=== PATIENT | male | born 1945 | race Caucasian/White ===

== ENCOUNTER 2016-08-09 13:07 | Observation (INO) | payer OTHER ==
[~2016-08-09] VITALS: Ht 177.8 cm; Wt 85.6 kg
[~2016-08-09 13:07] MED LIST: ASPI81TA21 PO; CETI10CH PO; CYM/30 PO; DOXA1TAB86 PO; DTRSR/10 PO; FINA5TAB PO; FLNIN; GABA-113 PO; HYDR-5688 PO; IPRASOL4 INH; LEVO50TA6 PO; LISI10TA PO; LPT40 PO; NTRSLP4 SL; PRLSR20 PO; SYMIN160 INH; TIOTCAP INH; TPRSR25 PO
[2016-08-09] MEDS ORDERED: ALUMINUM/MAGNESIUM SUSP 30 ML UDC PO STA (13:23)
[2016-08-09] MEDS ORDERED: PANTOprazole SOD 40 MG TAB PO STA (13:23)
[2016-08-09] MEDS ORDERED: ASPIRIN 324 MG CHEW PO STA (13:23)
[2016-08-09] MEDS ORDERED: MoRPHine SULFATE 4 MG/ML 1 ML CARP\\VIAL IV PRN (13:30)
[2016-08-09 13:56] LABS: BASO % 0.3 %; BASO ABS # 0.02 K/uL (0-0.2); COMPLETE YES; EOS % 0.7 %; HEMATOCRIT 38.3 % (42-52); IG% 0.1 %; LYMPH % 20.5 %; LYMPH ABS # 1.47 K/uL (1.2-3.4); MEAN CELL VOLUME 91.4 fL (80-100); MEAN CORPUSCULAR HEMOGLOBIN 32.5 pg (25-34); MEAN CORPUSCULAR HGB CONC 35.5 g/dl (32-36); MEAN PLATELET VOLUME 10.6 fL (7.4-10.4); MONO % 17.2 %; NEUT % 61.2 %; PLATELET COUNT 166 K/uL (130-400); RED BLOOD COUNT 4.19 M/uL (4.7-6.1); WHITE BLOOD COUNT 7.17 K/uL (4.8-10.8)
--- NOTE | 2016-08-09 14:02 | DIAGNOSTIC IMAGING REPORT ---
KUB HISTORY: Generalized abdominal pain. COMPARISON: None. FINDINGS: The bowel gas pattern is unremarkable. There are no dilated loops of small bowel to suggest an obstruction. No renal calculi. No ureteral calculi. No pneumoperitoneum or pneumatosis. Lumbar spine similar device is noted overlying the left side the abdomen with the leads extending to the T7 vertebral body level. Prior cholecystectomy. Moderate well-formed stool seen within the colon. Bilateral total hip arthroplasties. Pacemaker wires are noted. Patchy densities within the left lower lobe persist. IMPRESSION: No evidence for bowel obstruction. Moderate well-formed stool seen within the colon. Electronically signed by: Andrei Guillen M.D. 08/09/2016 2:01 PM Dictated Date/Time: 08/09/2016 1:58 PM
--- NOTE | 2016-08-09 14:03 | DIAGNOSTIC IMAGING REPORT ---
SINGLE VIEW CHEST CLINICAL HISTORY: Generalized abdominal pain. FINDINGS: An AP, portable, upright chest radiograph is compared to study dated 06/07/2016. Correlation is made with chest CT dated 01/29/2014. The examination is degraded by portable technique and patient rotation. A 2-lead cardiac pacemaker is unchanged in position and partially obscures the left upper chest. The heart is enlarged and there is atherosclerotic calcification of the thoracic and. The pulmonary vasculature is noncongested. There is bibasilar atelectasis. No large pleural effusion is identified. The lungs and pleural spaces are clear. No pneumothorax is seen. The skeletal structures are osteopenic. The bony thorax is grossly intact. Neurostimulator leads project over the mid thoracic spine. Cholecystectomy clips are identified in the right upper quadrant. IMPRESSION: 1. Cardiomegaly and cardiac pacemaker. There is no radiographic evidence of congestive failure. 2. No airspace consolidation or large pleural effusion is identified. Electronically signed by: Geoffrey Auguste M.D. 08/09/2016 2:02 PM Dictated Date/Time: 08/09/2016 2:00 PM
[2016-08-09 14:06] LABS: PROTHROMBIN TIME (PATIENT) 10.7 SECONDS (9.0-12.0)
[2016-08-09 14:14] LABS: ALT/SGPT 24 U/L (12-78); BLOOD UREA NITROGEN 14 mg/dl (7-18); BUN/CREATININE RATIO 12.5 (10-20); CALCIUM 9.1 mg/dl (8.5-10.1); CARBON DIOXIDE 24 mmol/L (21-32); CHLORIDE 106 mmol/L (98-107); GLUCOSE 102 mg/dl (70-99); POTASSIUM 3.7 mmol/L (3.5-5.1); SODIUM 142 mmol/L (136-145)
[2016-08-09 14:20] LABS: ALKALINE PHOSPHATASE 70 U/L (45-117); AST/SGOT 15 U/L (15-37); CKMB/CK RATIO 1.3 (0-3.0)
--- NOTE | 2016-08-09 15:17 | EMERGENCY ROOM VISIT NOTE ---
History Report prepared by Maged: Ismael Del Valle Under the Supervision of: Dr. Noe Jane D.O. First contact with patient: 13:14 Chief Complaint: CARDIAC ASSESSMENT Stated Complaint: HEART PROBLEMS Nursing Triage Summary: pt sent by dr feliz office for neck, throat , chest and back pain since yesterday. had pacemaker placed 2 mos ago some sob, denies nausea, denies diaphoresis History of Present Illness The patient is a 71 year old male who presents to the Emergency Room with complaints of persistent chest pain beginning 2 days ago. He notes he has had burning pain in his throat, across his chest, and on the side of his neck which is worsened with deep breaths, coughing, and walking. He is unable to lay on his left side. He has had back pain, some constipation, and itchiness around his ankles which he notes is not new. The patient denies having any nausea, vomiting, or swelling or redness in he legs. He reports taking nitroglycerin this morning, and was given another nitroglycerin by Dr. Feliz at the cardiology office today which he states helped to relieve his pain. He did not take any aspirin today. The patient notes that his current pain feels similar to his past [place] 20 year ago. He notes a catheterization was done at that time. He states he had a pacemaker placed in May of 2016, and had a catheterization the day before. He reports a history of a cholecystectomy, and is on Omeprazole. The patient has no known drug allergies. Source of History: patient Onset: 2 days ago Position: chest Quality: burning Timing: other (persistent) Modifying Factors (Worsening): other (deep breaths, coughing, walking) Modifying Factors (Relieving): other (nitroglycerin) Associated Symptoms: + neck pain, No nausea, No vomiting Note: The patient reports having new throat pain and some constipation. The patient denies any swelling or redness in his legs. Review of Systems See HPI for pertinent positives & negatives. A total of 10 systems reviewed and were otherwise negative. Past Medical & Surgical Medical Problems: (1) BPH (benign prostatic hyperplasia) (2) Carotid stenosis (3) COPD (chronic obstructive pulmonary disease) (4) Depression (5) Diastolic dysfunction (6) DVT (deep venous thrombosis) (7) Fingertip amputation (8) History of left heart catheterization (LHC) (9) HLD (hyperlipidemia) (10) HTN (hypertension) (11) Hypothyroidism (12) Pacemaker (13) RLS (restless legs syndrome) (14) SSS (sick sinus syndrome) Surgical Problems: (1) H/O knee surgery (2) History of cholecystectomy (3) History of hip surgery (4) Hx of cholecystectomy Family History No pertinent family history stated. Social History Smoking Status: Former Smoker Marital Status: Housing Status: lives with family Occupation Status: retired, other Current/Historical Medications Scheduled Aspirin Enteric Coated (Ecotrin Or Generic), 81 MG PO DAILY Atorvastatin (Atorvastatin Calcium), 40 MG PO DAILY Budesonide/Formoterol Fumarate (Symbicort 160/4.5 Inhaler ), 2 PUFFS INH BID Doxazosin Mesylate (Doxazosin Mesylate), 8 MG PO HS Duloxetine HCl (Cymbalta), 1 CAP PO DAILY Finasteride (Proscar), 5 MG PO DAILY Gabapentin (Neurontin), 300 MG PO BID Levothyroxine Sodium (Levothyroxine Sodium), 1 TAB PO DAILY Lisinopril (Prinivil), 10 MG PO QPM Metoprolol Succinate (Metoprolol Succinate ER), 25 MG PO QAM Omeprazole (Prilosec), 40 MG PO DAILY Oxybutynin Chloride (Oxybutynin Chloride ER), 10 MG PO DAILY Tiotropium [place] (Spiriva Handihaler), 1 CAP INH DAILY PRN Scheduled PRN Cetirizine Hcl (Cetirizine Hcl), MG PO DAILY PRN for Nasal Congestion Fluticasone Propionate (Fluticasone Propionate), 2 SPRAYS NA BID PRN for prn Hydrocodone/Acetaminophen 5MG/325MG ([place] 5MG/325MG), 1 TABLET PO TID PRN for Pain Ipratropium-Albuterol (Duoneb), 1 TREATMENT INH Q8 PRN for SOB/Wheezing Nitroglycerin (Nitrostat), 0.4 MG SL PRN PRN for Chest Pain Allergies Coded Allergies: Latex (Unverified Allergy, Mild, HIVES, 08/09/16) BLISTERED GOODE Adhesives (Unverified Allergy, Unknown, ADHESIVE TAPE = UNKNOWN RXN, ) Physical Exam Vital Signs Date Time Temp Pulse Resp B/P Pulse Ox O2 Delivery O2 Flow Rate FiO2 08/09/16 19:38 65 18 141/64 94 Room Air 08/09/16 18:08 64 16 93 Room Air 08/09/16 17:27 65 20 148/71 96 Room Air 08/09/16 16:47 71 18 115/83 96 Room Air 08/09/16 15:37 60 16 94 08/09/16 15:15 139/85 08/09/16 15:07 63 18 94 08/09/16 14:55 62 14 139/74 96 Room Air 08/09/16 14:47 134/74 08/09/16 14:37 61 11 96 08/09/16 14:07 62 17 93 08/09/16 14:04 64 20 114/58 96 Room Air 08/09/16 13:54 Room Air 08/09/16 13:54 114/58 08/09/16 13:37 62 15 95 08/09/16 13:23 64 08/09/16 13:14 37.5 93 16 115/66 94 Room Air Physical Exam GENERAL: Patient is awake alert, somewhat anxious and uncomfortable appearing. EYES: The conjunctivae are clear. The pupils are round and reactive. EARS, NOSE, MOUTH AND THROAT: The nose is without any evidence of any deformity. Mucous membranes are moist tongue is midline NECK: The neck is nontender and supple. RESPIRATORY: Normal respiratory effort is noted there is no evidence of wheezing rhonchi or rales CARDIOVASCULAR: Regular rate and rhythm noted there no murmurs rubs or gallops normal S1 normal S2 GASTROINTESTINAL: The abdomen is soft. Bowel sounds are present in all quadrants. Abdomen is nontender MUSCULOSKELETAL/EXTREMITIES: There is no evidence of gross deformity full range of motion is noted in the hips and shoulders SKIN: Trace pedal edema bilaterally. NEUROLOGIC: Patient is awake alert and oriented x3. Medical Decision & Procedures ER Provider Diagnostic Interpretation: Radiology results as stated below per my review and radiologist interpretation: KUB FINDINGS: The bowel gas pattern is unremarkable. There are no dilated loops of small bowel to suggest an obstruction. No renal calculi. No ureteral calculi. No pneumoperitoneum or pneumatosis. Lumbar spine similar device is noted overlying the left side the abdomen with the leads extending to the T7 vertebral body level. Prior cholecystectomy. Moderate well-formed stool seen within the colon. Bilateral total hip arthroplasties. Pacemaker wires are noted. Patchy densities within the left lower lobe persist. IMPRESSION: No evidence for bowel obstruction. Moderate well-formed stool seen within the colon. Electronically signed by: Andrei Guillen M.D. 08/09/2016 2:01 PM Dictated Date/Time: 08/09/2016 1:58 PM SINGLE VIEW CHEST FINDINGS: An AP, portable, upright chest radiograph is compared to study dated 06/07/2016. Correlation is made with chest CT dated 01/29/2014. The examination is degraded by portable technique and patient rotation. A 2-lead cardiac pacemaker is unchanged in position and partially obscures the left upper chest. The heart is enlarged and there is atherosclerotic calcification of the thoracic and. The pulmonary vasculature is noncongested. There is bibasilar atelectasis. No large pleural effusion is identified. The lungs and pleural spaces are clear. No pneumothorax is seen. The skeletal structures are osteopenic. The bony thorax is grossly intact. Neurostimulator leads project over the mid thoracic spine. Cholecystectomy clips are identified in the right upper quadrant. IMPRESSION: 1. Cardiomegaly and cardiac pacemaker. There is no radiographic evidence of congestive failure. 2. No airspace consolidation or large pleural effusion is identified. Electronically signed by: Geoffrey Auguste M.D. 08/09/2016 2:02 PM Dictated Date/Time: 08/09/2016 2:00 PM Laboratory Results 08/09/16 13:45 Red Blood Count 4.19, Mean Corpuscular Volume 91.4, Mean Corpuscular Hemoglobin 32.5, Mean Corpuscular Hemoglobin Concent 35.5, Mean Platelet Volume 10.6, Neutrophils (%) (Auto) 61.2, Lymphocytes (%) (Auto) 20.5, Monocytes (%) (Auto) 17.2, Eosinophils (%) (Auto) 0.7, Basophils (%) (Auto) 0.3, Neutrophils # (Auto ) 4.39, Lymphocytes # (Auto) 1.47, Monocytes # (Auto) 1.23, Eosinophils # (Auto ) 0.05, Basophils # (Auto) 0.02 08/09/16 13:45 Test 08/09/16 13:45 08/09/16 19:45 White Blood Count 7.17 K/uL (4.8-10.8) Red Blood Count 4.19 M/uL (4.7-6.1) Hemoglobin 13.6 g/dL (14.0-18.0) Hematocrit 38.3 % (42-52) Mean Corpuscular Volume 91.4 fL (80-100) Mean Corpuscular Hemoglobin 32.5 pg (25-34) Mean Corpuscular Hemoglobin Concent 35.5 g/dl (32-36) Platelet Count 166 K/uL (130-400) Mean Platelet Volume 10.6 fL (7.4-10.4) Neutrophils (%) (Auto) 61.2 % Lymphocytes (%) (Auto) 20.5 % Monocytes (%) (Auto) 17.2 % Eosinophils (%) (Auto) 0.7 % Basophils (%) (Auto) 0.3 % Neutrophils # (Auto) 4.39 K/uL (1.4-6.5) Lymphocytes # (Auto) 1.47 K/uL (1.2-3.4) Monocytes # (Auto) 1.23 K/uL (0.11-0.59) Eosinophils # (Auto) 0.05 K/uL (0-0.5) Basophils # (Auto) 0.02 K/uL (0-0.2) RDW Standard Deviation 43.3 fL (36.4-46.3) RDW Coefficient of Variation 13.0 % (11.5-14.5) Immature Granulocyte % (Auto) 0.1 % Immature Granulocyte # (Auto) 0.01 K/uL (0.00-0.02) Prothrombin Time 10.7 SECONDS (9.0-12.0) Prothromb Time International Ratio 1.0 (0.9-1.1) Activated Partial Thromboplast Time 24.7 SECONDS (21.0-31.0) Partial Thromboplastin Ratio 1.0 D-Dimer 640 ug/L FEU (0-500) Anion Gap 12.0 mmol/L (3-11) Est Creatinine Clear Calc Drug Dose 69.8 ml/min Estimated GFR () 78.4 Estimated GFR (Non- 67.7 BUN/Creatinine Ratio 12.5 (10-20) Calcium Level 9.1 mg/dl (8.5-10.1) Total Bilirubin 0.6 mg/dl (0.2-1) Direct Bilirubin 0.2 mg/dl (0-0.2) Aspartate Amino Transf (AST/SGOT) 15 U/L (15-37) Alanine Aminotransferase (ALT/SGPT) 24 U/L (12-78) Alkaline Phosphatase 70 U/L (45-117) Total Protein 7.0 gm/dl (6.4-8.2) Albumin 3.6 gm/dl (3.4-5.0) Lipase 91 U/L (73-393) Thyroid Stimulating Hormone (TSH) 0.747 uIu/ml (0.300-4.500) Laboratory results per my review. Medications Administered Medications (Trade) Dose Ordered Sig/Juliette Route Start Time Stop Time Status Last Admin Dose Admin Al Hydroxide/Mg Hydroxide (Maalox Susp) 30 ml NOW STAT PO 08/09/16 13:23 08/09/16 13:25 DC 08/09/16 14:03 30 ML Pantoprazole Sodium (Protonix Tab) 40 mg NOW STAT PO 08/09/16 13:23 08/09/16 13:25 DC 08/09/16 14:01 40 MG Aspirin (Aspirin Chew) 324 mg NOW STAT PO 08/09/16 13:23 08/09/16 13:25 DC 08/09/16 13:56 324 MG Morphine Sulfate (MoRPHine SULFATE INJ) 4 mg Q15M PRN IV 08/09/16 13:30 08/23/16 13:29 08/09/16 14:01 4 MG ECG Indication: chest pain Rate (beats per minute): 74 Rhythm: other (atrially paced ) Findings: other (LVH noted by voltage criteria; high late ST elevation) Comparison ECG Date: June 06, 2016 Change: no significant change ED Course 1322: The patient was evaluated in room B11B. A complete history and physical examination were performed. 1323: Ordered Aspirin 324 mg PO, Protonix Tab 40 mg PO, and Maalox Susp 30 ml PO. 1330: Ordered Morphine Sulfate 4 mg IV. 1440: I discussed the patient's case with Dr. Eason. The patient will be evaluated for further management. Medical Decision Differential diagnosis: Etiologies such as cardiac ischemia, aortic dissection, pulmonary embolism, pneumonia, pneumothorax, musculoskeletal, infections, pericarditis, myocarditis , esophageal rupture, gastrointestinal, as well as others were entertained. Nursing notes reviewed. Additional history is obtained from the patient's significant other. The patient is a 71-year-old male who presented to the emergency department for an evaluation of anterior chest pain. The patient had a recent pacemaker placement at the end of last year. He presents emergency department today after being seen by his primary defensive secondary coach and sent to the emergency department for further evaluation of anterior chest pain. The patient appears to have some pleuritic component to this chest pain but he feels as though this is similar to his previous episodes of coronary syndrome. The patient had a heart catheterization at the end of last year when he had the pacemaker placed. This did show diffuse coronary artery disease and at that time no intervention was required. The patient was treated with aspirin as well as morphine in the emergency apartment. She was also given a proton pump inhibitor and Maalox. On subsequent reevaluation he was feeling somewhat improved. I discussed the patient's laboratory and radiographic studies with him. I also discussed the limitations of the emergency department workup for chest pain with him. I discussed this case with the on-call [facility] hospitalist as well as the on- call [facility] defensive secondary coach. They've agreed to evaluate the patient in the emergency apartment for further management and disposition. Consults Time Called: 1435 Consulting Physician: Dr. Eason Returned Call: 1440 I discussed the patient's case with Dr. Eason. The patient will be evaluated for further management. Impression Primary Impression: Left sided chest pain Scribe Attestation The scribe's documentation has been prepared under my direction and personally reviewed by me in its entirety. I confirm that the note above accurately reflects all work, treatment, procedures, and medical decision making performed by me. Departure Information Dispostion Being Evaluated By Hospitalist Referrals Erasmo Feliz D.O. (PCP) Patient Instructions My [facility]
[2016-08-09] MEDS ORDERED: NITROGLYCERIN 0.4 MG SL PER TAB CHARGE SL PRN (15:30)
[2016-08-09] MEDS ORDERED: ONDANSETRON INJ 2 MG/ML 2 ML VIAL IV PRN (15:30)
[2016-08-09] MEDS ORDERED: ACETAMINOPHEN 325 MG TAB PO PRN (15:30)
[2016-08-09] MEDS ORDERED: LPT40 PO (15:37)
[2016-08-09] MEDS ORDERED: FLUTICASONE PROPIONATE NA SPR 16 GM BTL PRN (15:45)
[2016-08-09] MEDS ORDERED: ALBUT/IPRATROP 3MG/0.5MG NEB 3 ML VIAL INH PRN (15:45)
[2016-08-09] MEDS ORDERED: GI COCKTAIL PO PRN (15:45)
--- NOTE | 2016-08-09 16:07 | History and Physical ---
History & Physical Date & Time of Service: Aug 09, 2016 at 15:42 Chief Complaint: Heart Problems Primary Care Physician: Erasmo Merritt D.O. History of Present Illness Source: patient, family, clinic records, hospital records Patient seen and examined. 71 year old male with PMHx of CAD, COPD, HLD, SA node dysfunction s/p pacemaker, HTN and other problems listed below presents to the ED with chest pain x 2 days. Patient reports that he has had constant pleuritic chest pain for the last several days. He states it radiates to the neck and the back. It is much worse with deep inspiration, but also has a burning quality and a sharp quality to it. He rates it as a 5/10. He has associated dyspnea on exertion. He reports associated cough. He reports he had a heart attack 20 years ago which was similar. He reports that he took nitro and that helped. He denies fevers, chills, diaphoresis, nausea, vomiting, dysuria, edema. He reports left calf pain. He reports a history of VTE previous. He was seen by Dr. Merritt for these symptoms today and was referred to the ED for further evaluation. Patient had a LHC in May 2016 with multivessel disease. He had a pacemaker placed at that time but no other intervention. In the ED VS are stable, Uriel are negative x 1, Patient received Aspirin, Morphine, Maalox and Protonix which helped with the pain. He will be observed for further workup and treatment. Past Medical/Surgical History Medical Problems: (1) BPH (benign prostatic hyperplasia) Status: Chronic (2) Carotid stenosis Status: Chronic (3) COPD (chronic obstructive pulmonary disease) Status: Chronic (4) Depression Status: Chronic (5) Diastolic dysfunction Status: Chronic (6) DVT (deep venous thrombosis) Status: Resolved (7) Fingertip amputation Status: Chronic (8) History of left heart catheterization (LHC) Status: Chronic (9) HLD (hyperlipidemia) Status: Chronic (10) HTN (hypertension) Status: Chronic (11) Hypothyroidism Status: Chronic (12) Pacemaker Status: Chronic (13) RLS (restless legs syndrome) Status: Chronic (14) SSS (sick sinus syndrome) Status: Chronic Surgical Problems: (1) H/O knee surgery Status: Chronic (2) History of hip surgery Status: Chronic (3) Hx of cholecystectomy Status: Chronic Family History Asthma Diabetes mellitus Social History Smoking Status: Former Smoker Alcohol Use: none Marital Status: Housing status: lives with family Occupational Status: retired, other Immunizations History of Influenza Vaccine: No History of Tetanus Vaccine?: Yes History of Pneumococcal: Yes History of Hepatitis B Vaccine: Unknown Multi-Drug Resistant Organisms History of MDRO: No Allergies Coded Allergies: Latex (Unverified Allergy, Mild, HIVES, 08/09/16) BLISTERED GOODE Adhesives (Unverified Allergy, Unknown, ADHESIVE TAPE = UNKNOWN RXN, ) Home Medications Scheduled Aspirin Enteric Coated (Ecotrin Or Generic), 81 MG PO DAILY Atorvastatin (Atorvastatin Calcium), 40 MG PO DAILY Budesonide/Formoterol Fumarate (Symbicort 160/4.5 Inhaler ), 2 PUFFS INH BID Doxazosin Mesylate (Doxazosin Mesylate), 8 MG PO HS Duloxetine HCl (Cymbalta), 1 CAP PO DAILY Finasteride (Proscar), 5 MG PO DAILY Gabapentin (Neurontin), 300 MG PO BID Levothyroxine Sodium (Levothyroxine Sodium), 1 TAB PO DAILY Lisinopril (Prinivil), 10 MG PO QPM Metoprolol Succinate (Metoprolol Succinate ER), 25 MG PO QAM Omeprazole (Prilosec), 40 MG PO DAILY Oxybutynin Chloride (Oxybutynin Chloride ER), 10 MG PO DAILY Tiotropium Jolon (Spiriva Handihaler), 1 CAP INH DAILY PRN Scheduled PRN Cetirizine Hcl (Cetirizine Hcl), MG PO DAILY PRN for Nasal Congestion Fluticasone Propionate (Fluticasone Propionate), 2 SPRAYS NA BID PRN for prn Hydrocodone/Acetaminophen 5MG/325MG (Ceresco 5MG/325MG), 1 TABLET PO TID PRN for Pain Ipratropium-Albuterol (Duoneb), 1 TREATMENT INH Q8 PRN for SOB/Wheezing Nitroglycerin (Nitrostat), 0.4 MG SL PRN PRN for Chest Pain Review of Systems Constitutional: + weakness, No chills, No fever, No sweats Eyes: No worsening of vision ENT: No nasal symptoms Respiratory: + cough, + dyspnea on exertion, + shortness of breath Cardiovascular: + chest pain, No edema, No palpitations Abdomen: No constipation, No diarrhea, No nausea, No pain, No vomiting Musculoskeletal: + calf pain, No swelling Genitourinary - Male: + urinary hesitancy, + urinary retention, No dysuria Neurologic: No numbness/tingling, No vertigo Psychiatric: No depression symptoms Endocrine: No fatigue Hematologic / Lymphatic: No abnormal bleeding/bruising, No clotting problems Integumentary: No itch, No rash Allergic / Immunologic: No environmental allergies Physical Exam Vital Signs Date Time Temp Pulse Resp B/P Pulse Ox O2 Delivery O2 Flow Rate FiO2 08/09/16 14:55 62 14 139/74 96 Room Air 08/09/16 14:04 64 20 114/58 96 Room Air 08/09/16 13:54 Room Air 08/09/16 13:23 64 08/09/16 13:14 37.5 93 16 115/66 94 Room Air General Appearance: + pertinent finding (Pleasant WD/WN 71 year old male lying inbed in NAD with at bedside ) Head: normocephalic, atraumatic Eyes: PERRL, EOMI, sclerae normal ENT: hearing grossly normal, pharynx normal Neck: supple, no JVD Respiratory/Chest: chest non-tender, lungs clear, normal breath sounds, no respiratory distress, no accessory muscle use Cardiovascular: regular rate, rhythm, no edema, no gallop, no JVD, no murmur, normal peripheral pulses Abdomen/GI: normal bowel sounds, non tender, soft Back: normal inspection, no muscle spasm Extremities/Musculoskelatal: normal capillary refill, no pedal edema, + calf tenderness (left ) Neurologic/Psych: alert, oriented x 3, + pertinent finding (no focal deficits ) Skin: normal color, warm/dry, no rash Lymphatic: no adenopathy Diagnostics Laboratory Results Results Past 24 Hours Test 08/09/16 13:45 Range/Units White Blood Count 7.17 4.8-10.8 K/uL Red Blood Count 4.19 4.7-6.1 M/uL Hemoglobin 13.6 14.0-18.0 g/dL Hematocrit 38.3 42-52 % Mean Corpuscular Volume 91.4 80-100 fL Mean Corpuscular Hemoglobin 32.5 25-34 pg Mean Corpuscular Hemoglobin Concent 35.5 32-36 g/dl Platelet Count 166 130-400 K/uL Mean Platelet Volume 10.6 7.4-10.4 fL Neutrophils (%) (Auto) 61.2 % Lymphocytes (%) (Auto) 20.5 % Monocytes (%) (Auto) 17.2 % Eosinophils (%) (Auto) 0.7 % Basophils (%) (Auto) 0.3 % Neutrophils # (Auto) 4.39 1.4-6.5 K/uL Lymphocytes # (Auto) 1.47 1.2-3.4 K/uL Monocytes # (Auto) 1.23 0.11-0.59 K/uL Eosinophils # (Auto) 0.05 0-0.5 K/uL Basophils # (Auto) 0.02 0-0.2 K/uL RDW Standard Deviation 43.3 36.4-46.3 fL RDW Coefficient of Variation 13.0 11.5-14.5 % Immature Granulocyte % (Auto) 0.1 % Immature Granulocyte # (Auto) 0.01 0.00-0.02 K/uL Prothrombin Time 10.7 9.0-12.0 SECONDS Prothromb Time International Ratio 1.0 0.9-1.1 Activated Partial Thromboplast Time 24.7 21.0-31.0 SECONDS Partial Thromboplastin Ratio 1.0 Sodium Level 142 136-145 mmol/L Potassium Level 3.7 3.5-5.1 mmol/L Chloride Level 106 98-107 mmol/L Carbon Dioxide Level 24 21-32 mmol/L Anion Gap 12.0 3-11 mmol/L Blood Urea Nitrogen 14 7-18 mg/dl Creatinine 1.10 0.60-1.40 mg/dl Est Creatinine Clear Calc Drug Dose 69.8 ml/min Estimated GFR () 78.4 Estimated GFR (Non- 67.7 BUN/Creatinine Ratio 12.5 10-20 Random Glucose 102 70-99 mg/dl Calcium Level 9.1 8.5-10.1 mg/dl Total Bilirubin 0.6 0.2-1 mg/dl Direct Bilirubin 0.2 0-0.2 mg/dl Aspartate Amino Transf (AST/SGOT) 15 15-37 U/L Alanine Aminotransferase (ALT/SGPT) 24 12-78 U/L Alkaline Phosphatase 70 45-117 U/L Total Creatine Kinase 70 39-308 U/L Creatine Kinase MB 0.9 0.5-3.6 ng/ml Creatine Kinase MB Ratio 1.3 0-3.0 Troponin I < 0.015 0-0.045 ng/ml Total Protein 7.0 6.4-8.2 gm/dl Albumin 3.6 3.4-5.0 gm/dl Lipase 91 73-393 U/L Diagnostic Radiology CXR Per radiologist read: IMPRESSION: 1. Cardiomegaly and cardiac pacemaker. There is no radiographic evidence of congestive failure. 2. No airspace consolidation or large pleural effusion is identified. KUB Per radiologist read: IMPRESSION: No evidence for bowel obstruction. Moderate well-formed stool seen within the colon. EKG 74 BPM, Atrial Paced, LVH, ST changes inferior leads. Impression Assessment and Plan 71 year old male presents to the ED from Dr. Merritt (cardiology) office with chest pain ATYPICAL CHEST PAIN -Observation in tele -First set of CE negative in ED -differential diagnosis to include ACS, pulmonary embolism, GERD and other etiologies -Reviewed EKG with Dr. Holloway, formal consult placed, input appreciated -Risk factors:patient has known multivessel CAD by cath in May 2016, HTN, HLD, age, remote tobacco history -Serial Uriel and EKGs -Fasting lipid panel, A1c in AM -Echo pending to r/o heart wall abnormality -Check Ddimer if positive will need CTA -continue Aspirin, BB, Statin, ACEI -Nitro, morphine prn chest pain -Try GI cocktail as needed -Cardiology consult for further management input appreciated -AHA diet -TSH, Mg pending -CBC, PRP, Mg daily -VSS stable, monitor in tele LEFT CALF PAIN -r/o DVT, has known history -Doppler US pending URINARY RETENTION/HESITANCY -check UA -continue BPH meds COPD -stable -continue home inhaler HLD -continue Statin -check lipid panel HTN -Stable -continue BB, lisinopril BPH -continue Doxazosin, Proscar DEPRESSION -continue Cymbalta HYPOTHYROIDISM -TSH pending -continue Synthroid RLS -continue Gabapentin GERD -continue PPI DVT PROPHYLAXIS: Sq heparin CODE STATUS: LEVEL 5 DNR per my discussion with the patient DISPO:observation pending further workup Patient seen in collaboration with Dr. Eason Agree with above h and p. Briefly 71 with hx CAd with multiple vessel disease as per CAth in may 2016, copd, htn presents with chest pain going on for several days. pain is more on deep breath and radiates to neck and back. He says pain is similar to his heart attack 20yrs ago.Gets sob on exertion. No nausea or sweating. Nitro relived pain. Seen by in clinic and sent to Er for further workup. 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 SA node dysfunction) and was advised medical management at that time presents with chest pain intial Ce and ekg unremarkable f/u serial Ce and echo and cardiology consult Pleuritic chest pain? d dimer elevated has left calf pain Doppler and cta chest negative VTE Prophylaxis VTE Risk Assessment Done? Y/N: Yes Risk Level: Moderate
[2016-08-09] MEDS ORDERED: OPTIRAY 320 IV PRN (17:00)
--- NOTE | 2016-08-09 17:51 | DIAGNOSTIC IMAGING REPORT ---
CHEST CTA for PULMONARY ARTERIES CT DOSE: 434.20 mGy.cm HISTORY: Chest pain dyspnea TECHNIQUE: Multiaxial CT images of the chest were performed following the intravenous administration of contrast to evaluate the pulmonary arteries. Maximal intensity projection images were also obtained. COMPARISON STUDY: 2013 FINDINGS: Normal enhancement characteristics of the pulmonary arterial vasculature. Several stable mediastinal and hilar nodes. Chronic interstitial change throughout both hemithoraces considered chronic. Mild chronic bibasilar atelectatic change. IMPRESSION: Chronic change. No evidence for pulmonary embolus. No change from the prior study. Electronically signed by: Reji Castle M.D. 08/09/2016 5:50 PM Dictated Date/Time: 08/09/2016 5:46 PM
[2016-08-09] MEDS ORDERED: IV FLUIDS COMPLETED PRN (19:00)
[2016-08-09 20:20] VITALS: BP 166/82; PULSE 69; TEMP 37.6; O2SAT 93; Ht 177.8 cm; Wt 85.6 kg
--- NOTE | 2016-08-09 20:22 | DIAGNOSTIC IMAGING REPORT ---
BILATERAL LOWER EXTREMITY VENOUS DOPPLER HISTORY: Pain. Edema. calf pain, R/O DVT COMPARISON STUDY: None. FINDINGS: There is normal compressibility, flow, and augmentation within the bilateral lower extremity deep venous systems. 5 cm left popliteal cyst. Mild chronic scarring right femoral vein IMPRESSION: No DVT within the right or left lower extremity. 5 cm popliteal cyst posterior to the left knee Electronically signed by: Reji Castle M.D. 08/09/2016 8:21 PM Dictated Date/Time: 08/09/2016 8:19 PM
[2016-08-09] MEDS: HYDROCODONE/ACETAMOPHEN 5/325MG TAB PO PRN (20:43)
[2016-08-09] MEDS ORDERED: ALUMINUM/MAGNESIUM SUSP 18 ML, LIDOCAINE HCL 2% VISCOUS SOLN 6 ML, BARCODE IDENTIFIER 1 EA PO PRN ×2 (20:45)
[2016-08-09] MEDS ORDERED: POLYETHYLENE (MIRALAX) 17 GM PACK PO ONE (20:45)
[2016-08-09] MEDS: BUDESONIDE/FORMOTEROL FUMARATE 160/4.5 60 PUFFS/INHALER INH SCH (21:00)
[2016-08-09] MEDS: DOXAZosin MESYLATE TAB 4 MG TAB PO SCH (21:22)
[2016-08-09] MEDS: GABAPENTIN 300 MG CAP PO SCH (21:22)
[2016-08-09] MEDS: HEPARIN SOD 5000 UNIT/0.5 ML CARP SQ SCH (21:28)
[2016-08-09] MEDS: MoRPHine SULFATE 2 MG/ML CARP IV PRN (23:15)
[2016-08-10] VITALS (9 sets, daily range): BP systolic 113–126; BP diastolic 57–77; PULSE 60–76; TEMP 36.4–37; O2SAT 91–98
[2016-08-10 02:39] LABS: CKMB/CK RATIO 1.6 (0-3.0)
[2016-08-10] MEDS: MoRPHine SULFATE 2 MG/ML CARP IV PRN (03:30)
[2016-08-10 06:16] LABS: HEMATOCRIT 37.8 % (42-52); MEAN CELL VOLUME 90.4 fL (80-100); MEAN CORPUSCULAR HEMOGLOBIN 31.8 pg (25-34); MEAN CORPUSCULAR HGB CONC 35.2 g/dl (32-36); MEAN PLATELET VOLUME 10.6 fL (7.4-10.4); PLATELET COUNT 154 K/uL (130-400); RED BLOOD COUNT 4.18 M/uL (4.7-6.1); WHITE BLOOD COUNT 5.22 K/uL (4.8-10.8)
[2016-08-10 06:32] LABS: ESTIMATED AVERAGE GLUCOSE 108 mg/dl; HA1C FLAG Normal (Normal)
[2016-08-10] MEDS: HEPARIN SOD 5000 UNIT/0.5 ML CARP SQ SCH ×3 (06:38→21:36)
[2016-08-10] MEDS: LEVOTHYROXINE 50 MCG TAB PO SCH (06:38)
[2016-08-10 06:57] LABS: BLOOD UREA NITROGEN 11 mg/dl (7-18); BUN/CREATININE RATIO 11.4 (10-20); CALCIUM 8.7 mg/dl (8.5-10.1); CARBON DIOXIDE 28 mmol/L (21-32); CHLORIDE 107 mmol/L (98-107); CHOLESTEROL 126 mg/dl (0-200); CHOLESTEROL/HDL RATIO 2.4; CREATININE 0.99 mg/dl (0.60-1.40); GLUCOSE 97 mg/dl (70-99); HDL CHOLESTEROL 52 mg/dl; LDL CHOLESTEROL CALCULATED 51 mg/dl; SODIUM 142 mmol/L (136-145); TRIGLYCERIDES 117 mg/dl (0-150); VERY LOW DENSITY LIPOPROT CALC 23 mg/dl
[2016-08-10 08:01] LABS: MAGNESIUM 2.4 mg/dl (1.8-2.4); POTASSIUM 3.9 mmol/L (3.5-5.1)
[2016-08-10] MEDS: ATORVASTATIN 40 MG TAB PO SCH (08:19)
[2016-08-10] MEDS: LISINOPRIL 10 MG TAB PO SCH (08:19)
[2016-08-10] MEDS: HYDROCODONE/ACETAMOPHEN 5/325MG TAB PO PRN ×2 (08:19→15:45)
[2016-08-10] MEDS: DULOXETINE (CYMBALTA) 30 MG CAP PO SCH (08:19)
[2016-08-10] MEDS: METOPROLOL SUCC 25MG EXT REL TAB PO SCH (08:20)
[2016-08-10] MEDS: OXYBUTYNIN CHLORIDE 5 MG TABCR PO SCH (08:20)
[2016-08-10] MEDS: PANTOprazole SOD 40 MG TAB PO SCH (08:20)
[2016-08-10] MEDS: GABAPENTIN 300 MG CAP PO SCH ×2 (08:21→20:16)
[2016-08-10] MEDS: FINASTERIDE 5 MG TAB PO SCH (08:21)
[2016-08-10] MEDS: BUDESONIDE/FORMOTEROL FUMARATE 160/4.5 60 PUFFS/INHALER INH SCH ×2 (08:22→20:16)
[2016-08-10] MEDS: ASPIRIN 81 MG ECTAB PO SCH (08:25)
[2016-08-10] MEDS ORDERED: POLYETHYLENE (MIRALAX) 17 GM PACK PO SCH (09:00)
[2016-08-10] MEDS ORDERED: TIOTROPIUM BROMIDE 5 PUFF/90 MCG INH INH SCH (09:00)
--- NOTE | 2016-08-10 09:40 | CARDIOLOGY CONSULTATION ---
DATE OF CONSULTATION: 08/10/2016 DATE OF CONSULTATION: 08/10/2016. REFERRING PHYSICIAN: Edgar merida. REASON FOR CONSULTATION: Chest pain. HISTORY OF PRESENT ILLNESS: The patient is a 71-year-old male patient who usually follows with Dr. Erasmo Merritt through our clinic. He has a history of coronary artery disease which is multivessel but has been stable for several years. He also has a history of severe left ventricular hypertrophy and diastolic dysfunction. In 2016, he had a permanent pacemaker placed for symptomatic bradycardia. 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 Starting approximately 4 days ago, he developed pleuritic type chest discomfort that increases with inspiration and radiates up into his neck. He has had no fever or chills. No recent tick bites. After admission, his cardiac markers have been negative. His EKG shows a paced rhythm. ALLERGIES: ADHESIVE TAPE. PAST MEDICAL HISTORY: As per the history of chief complaint. The patient has a history of stable coronary artery disease, diastolic dysfunction with severe left ventricular hypertrophy and symptomatic bradycardia status post permanent pacemaker 2016. 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 He is treated for hypertension and dyslipidemia. SOCIAL HISTORY: He is a nonsmoker. FAMILY MEDICAL HISTORY: Noncontributory. REVIEW OF SYSTEMS: A 10-point review of systems is negative except for the history of chief complaint. PHYSICAL EXAMINATION: GENERAL: He is alert and oriented. VITAL SIGNS: Blood pressure is 115/60. Pulse is regular at 60. He is afebrile. HEAD, EYES, EARS, NOSE, AND THROAT: He is normocephalic. Pupils are equal and reactive to light. Extraocular muscles are intact bilaterally. NECK: The neck veins are flat. Carotids have good upstrokes bilaterally without bruits. Thyroid is nonpalpable. RESPIRATORY: Breath sounds equal bilaterally and clear to auscultation. CARDIOVASCULAR: Heart has a regular rhythm. Normal S1, S2. No S3, S4. No cardiac rubs or murmurs. GASTROINTESTINAL: Abdomen soft, nontender without organomegaly. EXTREMITIES: Free of edema, digit clubbing, or cyanosis. NEUROLOGIC: Grossly intact. SKIN: Warm to touch. LYMPH NODES: Negative to palpation. LABORATORY DATA: WBC count is 5.2, hemoglobin is 13.3. Cardiac markers are negative. Creatinine is 1.1. EKG shows a paced rhythm. IMPRESSION: 1. Pleuritic chest discomfort, rule out Lyme's disease, pericarditis. 2. Remote history of coronary artery disease which has been stable. 3. Status post permanent pacemaker for symptomatic bradycardia. 4. Chronic obstructive pulmonary disease. RECOMMENDATIONS: The patient has been followed by graduate civil engineer as an outpatient and we should have him see him during this hospital admission. I will draw a sed rate, Lyme's titer and PERCY. He does not have an elevation in his cardiac markers which would go along with pericarditis involving the myocardium. I will obtain an echocardiogram to evaluate for pericardial effusion. I am also going to start him on ibuprofen for inflammation.
--- NOTE | 2016-08-10 12:11 | ECHOCARDIOGRAM REPORT ---
*NOTICE TO RECEIVING CONSTITUTION PARTY AGENCY This information is strictly Confidential and protected under [place] law. [place] law prohibits you from making any further disclosure of this information unless further disclosure is expressly permitted by the written consent of the person to whom it pertains or is authorized by law. A general authorization for the release of medical or other information is not sufficient for this purpose. Hospital accepts no responsibility if the information is made available to any other person, INCLUDING THE PATIENT. Interpretation Summary * Name: CORRIE MCCARTY Study Date: 08/10/2016 06:48 AM BP: 113/68 mmHg * Patient Location: [facility] HR: 64 * : 1945 (M/d/yyyy) Gender: Male Height: 70 in * Age: 71 yrs Ethnicity: CA Weight: 194 lb * Ordering Physician: Mallory Denise * Referring Physician: Self, Referred * Performed By: Michael Amaya RCS * * Reason For Study: Chest Pain * BSA: 2.1 m2 * -- Conclusions -- * The pericardium appears normal. * There is no pericardial effusion. * The left ventricle is normal in size. * There is moderate concentric left ventricular hypertrophy. * The left ventricular wall motion is normal. * Ejection Fraction = 60-65%. * Mild aortic regurgitation. Procedure Details * A complete two-dimensional transthoracic echocardiogram was performed (2D, M-mode, Doppler and color flow Doppler). Left Ventricle * The left ventricle is normal in size. * There is moderate concentric left ventricular hypertrophy. * Ejection Fraction = 60-65%. * The left ventricular wall motion is normal. Right Ventricle * The right ventricle is normal size. * There is a pacemaker lead in the right ventricle. * The right ventricular systolic function is normal. Atria * The left atrial size is normal. * Right atrial size is normal. * The interatrial septum is intact with no evidence for an atrial septal defect. Mitral Valve * The mitral valve anatomy is normal. * Significant mitral regurgitation is absent. Tricuspid Valve * The tricuspid valve is not well visualized, but is grossly normal. * Significant tricuspid regurgitation is absent. Aortic Valve * The aortic valve is tricuspid. The leaflet thickness if normal. There is no aortic stenosis, and no significant insufficiency. * The aortic valve opens well. * Mild aortic regurgitation. Pulmonic Valve * The pulmonic valve is not well visualized. * There is no significant pulmonary regurgitation. Pericardium/Pleural * There is no pericardial effusion. * The pericardium appears normal. MMode 2D Measurements and Calculations IVSd 1.1 cm IVSs 1.4 cm LVIDd 4.3 cm LVIDs 2.8 cm LVPWd 1.1 cm LVPWs 1.4 cm IVS/LVPW 1.0 FS 35.7 % EDV(Teich) 84.4 ml ESV(Teich) 29.2 ml EF(Teich) 65.4 % EDV(cubed) 81.1 ml ESV(cubed) 21.6 ml EF(cubed) 73.4 % % IVS thick 22.4 % % LVPW thick 25.1 % LV mass(C)d 174.5 grams LV mass(C)dI 84.7 grams/m\S\2 LV mass(C)s 130.3 grams LV mass(C)sI 63.2 grams/m\S\2 CO(Teich) 3.3 l/min CI(Teich) 1.6 l/min/m\S\2 SV(Teich) 55.2 ml SI(Teich) 26.8 ml/m\S\2 CO(cubed) 3.6 l/min CI(cubed) 1.7 l/min/m\S\2 SV(cubed) 59.5 ml SI(cubed) 28.9 ml/m\S\2 Ao root diam 4.1 cm Ao root area 13.3 cm\S\2 ACS 2.0 cm LA dimension 4.4 cm LA/Ao 1.1 LVAd ap4 35.9 cm\S\2 LVLd ap4 9.8 cm EDV(MOD-sp4) 106.0 ml LVAs ap4 18.9 cm\S\2 LVLs ap4 8.0 cm ESV(MOD-sp4) 36.0 ml EF(MOD-sp4) 66.0 % LVAd ap2 33.5 cm\S\2 LVLd ap2 9.5 cm EDV(MOD-sp2) 101.0 ml LVAs ap2 18.0 cm\S\2 LVLs ap2 8.3 cm ESV(MOD-sp2) 34.0 ml EF(MOD-sp2) 66.3 % CO(MOD-sp4) 4.2 l/min CI(MOD-sp4) 2.0 l/min/m\S\2 SV(MOD-sp4) 70.0 ml SI(MOD-sp4) 34.0 ml/m\S\2 CO(MOD-sp2) 4.0 l/min CI(MOD-sp2) 2.0 l/min/m\S\2 SV(MOD-sp2) 67.0 ml SI(MOD-sp2) 32.5 ml/m\S\2 Doppler Measurements and Calculations MV E max jacy 67.9 cm/sec MV A max jacy 73.0 cm/sec MV E/A 0.93 MV P1/2t max jacy 73.9 cm/sec MV P1/2t 94.2 msec MVA(P1/2t) 2.3 cm\S\2 MV dec slope 230.0 cm/sec\S\2 MV dec time 0.30 sec Ao V2 max 150.8 cm/sec Ao max PG 9.1 mmHg Ao max PG (full) 0.97 mmHg AI max jacy 416.3 cm/sec AI max PG 69.3 mmHg AI dec slope 152.7 cm/sec\S\2 AI P1/2t 798.3 msec LV V1 max PG 8.1 mmHg LV V1 max 142.6 cm/sec PA V2 max 127.6 cm/sec PA max PG 6.6 mmHg TR max jacy 140.7 cm/sec
[2016-08-10 12:19] LABS: LYME DISEASE AB IGG NEG (NEG); LYME DISEASE AB IGM NEG (NEG)
--- NOTE | 2016-08-10 13:08 | PULMONARY CONSULTATION ---
DATE OF CONSULTATION: 08/10/2016 TIME: 11:50 a.m. REPORT OF CONSULTATION: The patient was seen in room #2O2. He is a 71-year-old male who was admitted yesterday with a chief complaint of chest pain. The patient states that he has had pain starting 3-4 days ago that was severe. It was across the upper chest, both left and right side and radiated into the neck, particularly in the area of the, Jonny's apple as he described it. The pain is starting to soften up somewhat. It was mild this morning. It is definitely worse when he takes a deep breath. He has not had this type of pain previously. He does carry a history of coronary artery disease. He had a pacemaker inserted relatively recently. He also has a history of chronic obstructive pulmonary disease. He saw Dr. Costello, approximately 10 months ago in the office. The patient carries a diagnosis of COPD and he had pulmonary function testing done in 2013 that would support that. There was modest improvement following bronchodilators. The patient states that he has a daily cough. This has been for about a year and a half. He expectorates mucus. The mucus is white. He has never coughed up blood. The cough is unchanged since the onset of the pain. He is somewhat short of breath with exertion. The patient was not the best historian. I had a difficult time gathering from him exactly what he can do. Probably this is related to the fact he has significant orthopedic problems. In fact in his home, he has a stair lift to take him up the stairs but it is not because of his pulmonary status, but rather because of his hip problems. He has had at least 4 hip surgeries. His chest pain he is currently having is much worse when he is lying on the left side. The patient denies any chills, fevers or sweats. His breathing has not been affected by the chest pain. The patient does not seem to know his breathing medicines all that well. He seems to like to take what is probably a Ventolin inhaler. He describes the inhaler as bluish zurita. I did not definitively find that on his outpatient medicine list; however. It was seen on his office list. He is listed as taking Symbicort and Spiriva. The patient generally does not like to take his inhalers. He will only take them when he is acutely ill, even though he has a chronic condition. He also has a nebulizer at home. He seldom uses that either. The patient has a history of coal dust exposure. 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 His smoking history is that he smoked a half a pack per day for about 20 years but quit 34 years ago. He denies alcohol use. PAST SURGICAL HISTORY: 1. Bronchoscopy, done years ago by Dr. Goncalves. 2. Pacer insertion. 3. 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 4. Knee surgery. 5. Three right hip surgeries and one left hip surgery. The patient described having the initial left hip surgery because of taking steroids. I asked him if he was told that he had aseptic necrosis of the hip, but he did not recognize that name. I was asking him why he was on steroids long ago and he did not have a definite answer. PAST MEDICAL HISTORY: 1. Right DVT a few years ago. 2. Coronary artery disease. 3. Diastolic dysfunction. 4. Sick sinus syndrome. 5. Carotid stenosis. 6. Depression. 7. Hyperlipidemia. 8. Hypertension. 9. Hypothyroidism. 10. Restless leg syndrome. FAMILY HISTORY: Mother with congestive heart failure. He does not know the medical issues his father. ALLERGIES: LATEX AND ADHESIVES. REVIEW OF SYSTEMS: GENERAL: The patient's energy level is fairly low. He denies any syncope or near syncope. OPHTHALMIC: Denies ear, nose and throat symptoms. GASTROINTESTINAL: Denies having any nausea, vomiting, diarrhea or constipation. He does complain of having severe difficulty passing his urine for the past 3 weeks or so. He states he dribbles. I asked him if he has been taking his Tiotropium recently and he indicated no. The remainder of the review of systems is otherwise negative except as noted above. PHYSICAL EXAMINATION: VITAL SIGNS: The patient is a 71-year-old male who was cooperative, alert and oriented. He was in no distress. However, the patient did turn slightly on his left side when I was present and he did complain of a lot of pain until we changed positions. HEENT: Pupils were reactive. Nares were unremarkable. MOUTH: Showed no definite abnormalities. Mild halitosis was noted. NECK: Palpation of the neck reveals no lymph nodes. CHEST: Normal expansion and development. Heart rate was 76 per minute. Blood pressure 124/62. Oxygen saturation was 97% on nasal cannula. He did indicate the chest pain seemed to be relieved by taking oxygen, although I did not find any significant oxygen desaturation since he was admitted. The lung benitez revealed mildly decreased breath sounds. Just a few scattered rales were heard. The lung benitez for the most part were clear. The respiratory rate was 18 breaths per minute. ABDOMEN: Soft. Bowel sounds were normal. There was no tenderness to palpation, masses or organomegaly. EXTREMITIES: Showed no cyanosis, clubbing or edema. IMAGING DATA: The patient had a CT angio of the chest done. This showed no evidence of pulmonary embolism. There were chronic interstitial changes especially in the lower lung benitez bilaterally. Minimal atelectatic changes were noted. Venous Doppler of the lower extremities showed no DVT. A 5 cm popliteal cyst was noted posterior to the left knee. KUB showed no evidence of bowel obstruction. LABORATORY DATA: CBC done on the showed a white count of 7.17. Hemoglobin was 13.6. Platelets 166,000; today's white count was down to 5.22. Sed rate done today was 16. D-dimer was elevated at 640. Coags were normal. Electrolytes show sodium 142, potassium 3.9, chloride 107, and bicarbonate 28. BUN was 11 with a creatinine of 0.99. Total CPK was 55. Magnesium level was 2.4. PERCY and Lyme screening are pending. IMPRESSION: 1. Chest pain - appears to be related to pleurisy of undetermined origin. 2. Chronic obstructive pulmonary disease. COMMENTS AND RECOMMENDATIONS: The patient has pleuritic chest pain. No pulmonary emboli was seen, however. No pneumonia was seen. Cardiology does not feel this is an acute cardiac event. Thus, pleurisy or pericarditis need to be excluded. The patient was just initiated with ibuprofen. If that is not at all helpful, I would consider giving a few doses of steroids to see if that would give dramatic relief. He does not seem to be having any acute respiratory problem. I would stop the Spiriva which he does not take at home as it may be contributing to urinary issues. He is on the Symbicort. He does have neb treatments if needed on a p.r.n. basis. I do not think he likes to take any of these medicines. Dr. Romero will be on for pulmonary service tomorrow. Thank you for asking me to assist in his care.
[2016-08-10] MEDS: IBUPROFEN 200 MG TAB PO SCH ×2 (14:17→20:16)
[2016-08-10] MEDS: DOXAZosin MESYLATE TAB 4 MG TAB PO SCH (20:16)
--- NOTE | 2016-08-10 21:46 | Progress Note ---
Internal Med Progress Note Date of Service: Aug 10, 2016. Provider Documentation: SUBJECTIVE: precordial sharp chest pain , with pleuritic discomfort has resolved no SOB or hypoxia feels much better since admission worried about is Chest pain symptom believes something more going on -the ongoing sharp chest pain for 4 days was pretty scarey does not want to go through this again mentions of having ongoing weakness, fatigue, lack of appetite and wt loss for past 10 months worried that some thing serious has been going on and no one in out pt clinic has been able to help him with that OBJECTIVE: Vital Signs-as noted below Exam: General-no sign of distress . anxious Eyes-sclera non icteric Lungs-CTA , no wheeze or rales Heart-regular S1/S2, no reproducible pre cordial chest pain Abdomen-soft, non tender Extremities-no lower ext edema Neuro-no focal deficit Lab data as noted below. ASSESSMENT & PLAN: CHEST PAIN -sharp /pleuritic -has had ongoing for 4 days with radiation to neck , no VALDOVINOS or orthopnea pain was relieved intermittently with SL recent office visit with Dr Merritt on 08/09/16 -sent to ED for evaluation of possible ACS currently pt is completely symptom free cardiac markers , EKG has been unremarkable appreciate eval form Dr Holloway chest pain is very atypical for angina possible pericarditis causing transient sharp chest pain CTA of chest : no evidence of PE serial cardiac markers negative ECHO : The pericardium appears normal. There is no pericardial effusion. The left ventricle is normal in size. There is moderate concentric left ventricular hypertrophy. The left ventricular wall motion is normal. Ejection Fraction = 60-65%. started on NSAID's ESR 16 , Lyme titer negative PERCY level ordered -report pending GENERALIZED WEAKNESS /FATIGUE : not sure of the etiology reports of weakness, fatigue,poor energy , along with lack of appetite , wt loss > 15 lb in past 8-10 lbs pt has been evaluated by his family physician and Cardiology Dr Merritt in office for the ongoing symptom on April 2016 has Nuclear stress test : showed evidence of ischemia in RCA territory pt continued to feel tired and run down , persistently bradycardic, experiencing dizzy spell when standing up from sitting position pt had Cardiac cath on May 2016 -showed multivessel CAD , medically managed underwent dual chamber permanent pacemaker placement on May 2016 for symptomatic bradycardia pt taken off Metoprol for ongoing symptom TSH -wnl normal CEA , PSA level ordered for Hepatitis panel -initial screen negative Lyme titer /[place] test negative as well HX OF CAD : Cardica cath on 06/05/17 : 50% proximal LAD 70% mid LAD 90% ostial D1 (parallels LAD) 70% ostial RPL2 medical management recommended pt continued to have chronic fatigue syndrome presented with sharp pleuritic chest pain -atypical angina ECHO eval /lab finding showed no evidence of ACS pt will be continued with out pt cardiac meds HX OF SICK SINUS SYNDROME S/P pace maker placement in [facility] 2016 LEFT CALF PAIN -Doppler negative for lower ext DVT COPD -stable -continue home inhaler HLD -continue Statin HTN -Stable -continue BB, lisinopril BPH -continue Doxazosin, Proscar DEPRESSION -continue Cymbalta HYPOTHYROIDISM -continue Synthroid RLS -continue Gabapentin GERD -continue PPI DVT PROPHYLAXIS: Sq heparin CODE STATUS: LEVEL 5 DNR DISPOSITION to home when medically stable Medicine follow up with Dr Ramirez Vital Signs: Date Time Temp Pulse Resp B/P Pulse Ox O2 Delivery O2 Flow Rate FiO2 08/11/16 07:52 36.4 61 18 108/68 93 Room Air 08/11/16 04:00 91 Room Air 08/11/16 03:15 36.4 69 18 145/79 91 Room Air 08/11/16 00:01 96 Room Air 2.0 08/10/16 23:37 36.4 65 21 125/77 91 Room Air 08/10/16 20:00 Nasal Cannula 2.0 08/10/16 19:31 36.4 62 18 126/68 92 Nasal Cannula 2.0 08/10/16 16:00 96 Nasal Cannula 2.0 08/10/16 15:42 36.6 60 18 119/68 96 Nasal Cannula 2.0 08/10/16 12:00 Room Air 08/10/16 11:43 36.7 76 18 124/62 97 Lab Results: Results Past 24 Hours Test 08/11/16 05:20 Range/Units Carcinoembryonic Antigen 1.5 0-2.5 ng/ml Prostate Specific Antigen 0.057 0.000-4.000 ng/ml 25-Hydroxy Vitamin D Total 17.7 30-100 ng/ml Hepatitis B Surface Antigen NEG NEG Hepatitis C Antibody NEG NEG Monoscreen NEG NEG
[2016-08-10 22:06] LABS: URINE APPEARANCE CLEAR (CLEAR); URINE BILIRUBIN NEG (NEG); URINE COLOR DK YELLOW; URINE EPITHELIAL CELL AUTO >30 /lpf (0-5); URINE NITRITE NEG (NEG); URINE SPECIFIC GRAVITY 1.023 (1.000-1.030); UROBILINOGEN NEG (NEG); ZZUR CULT IF INDIC CLEAN CATCH YES
[2016-08-10 22:09] LABS: MANUAL MICROSCOPIC REQUIRED? NO; REVIEW REQ? YES
[2016-08-10 22:29] LABS: URINE MUCUS PRESENT (NONE PRSENT)
[2016-08-11] VITALS (11 sets, daily range): BP systolic 108–145; BP diastolic 62–80; PULSE 60–69; TEMP 36.4–36.7; O2SAT 91–96
[2016-08-11] MEDS: HEPARIN SOD 5000 UNIT/0.5 ML CARP SQ SCH ×3 (05:37→22:14)
[2016-08-11] MEDS: LEVOTHYROXINE 50 MCG TAB PO SCH (05:37)
[2016-08-11] MEDS ORDERED: CHOLECALCIFEROL 1000 INTER.UNIT TAB PO SCH (09:00)
[2016-08-11] MEDS ORDERED: POLYETHYLENE (MIRALAX) 17 GM PACK PO PRN (09:00)
[2016-08-11] MEDS: BUDESONIDE/FORMOTEROL FUMARATE 160/4.5 60 PUFFS/INHALER INH SCH ×2 (10:13→20:30)
[2016-08-11] MEDS: IBUPROFEN 200 MG TAB PO SCH ×3 (10:14→20:31)
[2016-08-11] MEDS: DULOXETINE (CYMBALTA) 30 MG CAP PO SCH (10:15)
[2016-08-11] MEDS: CEROVITE ADV FORMULA TAB PO SCH (10:15)
[2016-08-11] MEDS: FINASTERIDE 5 MG TAB PO SCH (10:15)
[2016-08-11] MEDS: LISINOPRIL 10 MG TAB PO SCH (10:16)
[2016-08-11] MEDS: PANTOprazole SOD 40 MG TAB PO SCH (10:16)
[2016-08-11] MEDS: GABAPENTIN 300 MG CAP PO SCH ×2 (10:17→20:31)
[2016-08-11] MEDS: CALCIUM CARBONATE 500 MG CHEWABLE PO SCH (10:20)
[2016-08-11] MEDS: CHOLECALCIFEROL 1000 INTER.UNIT TAB PO SCH (10:22)
[2016-08-11] MEDS: METOPROLOL SUCC 25MG EXT REL TAB PO SCH (10:24)
[2016-08-11] MEDS: ATORVASTATIN 40 MG TAB PO SCH (10:25)
[2016-08-11] MEDS: ASPIRIN 81 MG ECTAB PO SCH (10:25)
[2016-08-11] MEDS: OXYBUTYNIN CHLORIDE 5 MG TABCR PO SCH (10:25)
--- NOTE | 2016-08-11 17:11 | Cardiology Follow-Up ---
Subjective General Date of Service: Aug 11, 2016. Chief Complaint: follow up chest pain Pt evaluation today including: conversation w/ patient, physical exam History of Present Illness The patient is a 71 year old male seen in follow up of acute chest pain that woke him from sleep on 08/08/16. Discomfort present when patient was laying flat and on left side and was relieved when he sat up. Discomfort exacerbated by taking a deep breath. No is completely resolved. Pt improved with exception of continued fatigue. Also he is concerned about ~20 weight loss over last few months, and decrease appetite. Allergies Coded Allergies: Latex (Unverified Allergy, Mild, HIVES, 08/09/16) BLISTERED GOODE Adhesives (Unverified Allergy, Unknown, ADHESIVE TAPE = UNKNOWN RXN, ) Social History Smoking Status: Former Smoker Hx Tobacco Use In Past Year?: No (QUIT 37 YEARS AGO) Hx Alcohol Use - Type And Amou: No Hx Substance Use - Type And Am: No Problem List Medical Problems: (1) Cellulitis of left foot Status: Acute (2) Elevated serum creatinine Status: Acute (3) Left sided chest pain Status: Acute Physical Exam Vital Signs Last Vital Signs Documentation Date Time Temp Pulse Resp B/P Pulse Ox O2 Delivery O2 Flow Rate FiO2 08/11/16 12:26 36.6 60 18 113/62 92 Room Air 08/11/16 00:01 2.0 Physical Exam Constitutional: Level of Distress: NAD ENMT: normal ENT inspection Neck: supple Lungs: Auscultation: no wheezing, no rales/crackles, no rhonchi Cardiovascular: Heart Auscultation: RRR, no murmurs, no rubs, no gallops Abdomen: Bowel Sounds: normal Inspection & Palpation: soft, non-distended Extremities: no cyanosis, no edema Neurologic: Gait & Station: pertinent finding (no focal deficits ) Assessment and Plan Assessment and Plan Impression: 1. Chest pain, even though ESR is only mildly elevated, CP does clinically seem characteristic of pleuritis or pleuropericarditis. No pericardial effusion on CXR or CT. 2. Fatigue -cardiac cath performed 05/2016 for this complaint with diffuse multivessel disease noted in setting of profound bradycardia. Plan was for medical rx and HR support with PPM. Unfortunately fatigue persists Plan: EKG stable, pacer check stable, troponin negative. Continue short term course of ibuprofen. Recommend colonoscopy as outpt as patient states he is overdue. CEA screen was negative. Agree with vitamin D replacement. Laboratory Results Last 24 Hours Test 08/11/16 00:00 08/11/16 05:20 08/11/16 15:39 Carcinoembryonic Antigen 1.5 ng/ml Prostate Specific Antigen 0.057 ng/ml 25-Hydroxy Vitamin D Total 17.7 ng/ml Hepatitis B Surface Antigen NEG Hepatitis C Antibody NEG Monoscreen NEG
[2016-08-11 17:16] LABS: INFLUENZA A PCR Neg for Influ A (NEG); INFLUENZA B PCR Neg for Influ B (NEG)
[2016-08-11] MEDS: DOXAZosin MESYLATE TAB 4 MG TAB PO SCH (20:31)
[2016-08-11] MEDS: HYDROCODONE/ACETAMOPHEN 5/325MG TAB PO PRN (20:35)
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
[2016-08-12 04:15] VITALS: BP 157/88; PULSE 67; TEMP 36.5; O2SAT 91
[2016-08-12] MEDS: HEPARIN SOD 5000 UNIT/0.5 ML CARP SQ SCH ×2 (05:29→14:00)
[2016-08-12] MEDS: LEVOTHYROXINE 50 MCG TAB PO SCH (05:30)
[2016-08-12] MEDS: BUDESONIDE/FORMOTEROL FUMARATE 160/4.5 60 PUFFS/INHALER INH SCH (08:31)
[2016-08-12] MEDS: CHOLECALCIFEROL 1000 INTER.UNIT TAB PO SCH (08:32)
[2016-08-12] MEDS: IBUPROFEN 200 MG TAB PO SCH ×2 (08:32→14:00)
[2016-08-12] MEDS: CEROVITE ADV FORMULA TAB PO SCH (08:32)
[2016-08-12] MEDS: PANTOprazole SOD 40 MG TAB PO SCH (08:32)
[2016-08-12] MEDS: LISINOPRIL 10 MG TAB PO SCH (08:32)
[2016-08-12] MEDS: DULOXETINE (CYMBALTA) 30 MG CAP PO SCH (08:32)
[2016-08-12] MEDS: CALCIUM CARBONATE 500 MG CHEWABLE PO SCH (08:33)
[2016-08-12] MEDS: GABAPENTIN 300 MG CAP PO SCH (08:33)
[2016-08-12] MEDS: FINASTERIDE 5 MG TAB PO SCH (08:33)
[2016-08-12] MEDS: ASPIRIN 81 MG ECTAB PO SCH (08:33)
[2016-08-12] MEDS: ATORVASTATIN 40 MG TAB PO SCH (08:33)
[2016-08-12] MEDS: OXYBUTYNIN CHLORIDE 5 MG TABCR PO SCH (08:33)
[2016-08-12 08:34] VITALS: BP 126/75; PULSE 64; TEMP 36.5; O2SAT 93
[2016-08-12] MEDS: HYDROCODONE/ACETAMOPHEN 5/325MG TAB PO PRN (08:42)
--- NOTE | 2016-08-12 08:44 | Discharge Instructions ---
Discharge Instructions Admission Reason for Admission: Left Sided Chest Pain Discharge Discharge Diagnosis / Problem: CHEST PAIN /NON CARDIAC /PROBABLE VIRAL PERICARDITIS / Discharge Goals Goal(s): Improve disease control, Diagnostic testing, Therapeutic intervention Activity Recommendations Activity Limitations: resume your previous activity . Instructions / Follow-Up Instructions / Follow-Up HOSPITAL FOLLOW UP ON 08/16/2016 @ 2:50 PM Flavio Purvis MD Internal Medicine [facility] PLEASE HAVE REFERRAL TO SLEEP MEDICINE FOR SLEEP STUDY /EVALUATION OF OBSTRUCTIVE SLEEP [facility] FOLLOW UP on 08/16/2016 @ 8:30 AM Pacer Clinic [facility] Cardiology [facility] CARDIOLOGY FOLLOW UP ON 09/13/2016 @ 3:[address] Erasmo Merritt Jr., Cardiology, [facility] OUT PATIENT FOLLOW UP WITH DR NEWMAN IN PULMONOLOGY CLINIC Current Hospital Diet Patient's current hospital diet: AHA Diet (Heart Healthy) Discharge Diet Recommended Diet: AHA Diet (Heart Healthy) Pending Studies Studies pending at discharge: no Laboratory Results Hemoglobin A1c Test 08/10/16 05:35 Range/Units Estimated Average Glucose 108 mg/dl Hemoglobin A1c 5.4 4.5-5.6 % Lipid Panel Test 08/10/16 05:35 Range/Units Triglycerides Level 117 0-150 mg/dl Cholesterol Level 126 0-200 mg/dl HDL Cholesterol 52 mg/dl Cholesterol/HDL Ratio 2.4 LDL Cholesterol, Calculated 51 mg/dl Medical Emergencies . Who to Call and When: Medical Emergencies: If at any time you feel your situation is an emergency, please call 911 immediately. . Non-Emergent Contact Non-Emergency issues call your: Primary Care Provider . . "Provider Documentation" section prepared by Manda Hawley. VTE Core Measure Inpt VTE Proph given/why not?: Unfractionated heparin SQ
[2016-08-12] MEDS: METOPROLOL SUCC 25MG EXT REL TAB PO SCH (09:00)
--- NOTE | 2016-08-12 09:44 | Cardiology Follow-Up ---
Subjective General Date of Service: Aug 12, 2016. Chief Complaint: follow up chest pain Pt evaluation today including: conversation w/ patient, physical exam History of Present Illness The patient is a 71 year old male seen in follow-up. He denies any additional chest discomfort. He slept relatively well last night. Telemetry reveals stable sinus rhythm. Allergies Coded Allergies: Latex (Unverified Allergy, Mild, HIVES, 08/09/16) BLISTERED GOODE Adhesives (Unverified Allergy, Unknown, ADHESIVE TAPE = UNKNOWN RXN, ) Social History Smoking Status: Former Smoker Hx Tobacco Use In Past Year?: No (QUIT 37 YEARS AGO) Hx Alcohol Use - Type And Amou: No Hx Substance Use - Type And Am: No Problem List Medical Problems: (1) Cellulitis of left foot Status: Acute (2) Elevated serum creatinine Status: Acute (3) Left sided chest pain Status: Acute Physical Exam Vital Signs Last Vital Signs Documentation Date Time Temp Pulse Resp B/P Pulse Ox O2 Delivery O2 Flow Rate FiO2 08/12/16 08:34 36.5 64 20 126/75 93 Room Air 08/11/16 00:01 2.0 Physical Exam Constitutional: Level of Distress: NAD ENMT: normal ENT inspection Neck: supple Lungs: Auscultation: no wheezing, no rales/crackles, no rhonchi Cardiovascular: Heart Auscultation: RRR, no murmurs, no rubs, no gallops Abdomen: Bowel Sounds: normal Inspection & Palpation: soft, non-distended Extremities: no cyanosis, no edema Neurologic: Gait & Station: pertinent finding (no focal deficits ) Assessment and Plan Assessment and Plan Impression: 1. Chest pain, even though ESR is only mildly elevated, CP does clinically seem characteristic of pleuritis or pleuropericarditis. No pericardial effusion on CXR or CT. 2. Fatigue -cardiac cath performed 05/2016 for this complaint with diffuse multivessel disease noted in setting of profound bradycardia. Plan was for medical rx and HR support with PPM. Unfortunately fatigue persists -Case discussed with Dr Romero, who had reviewed his CT images, raised the question of pleural plaques perhaps mesothelioma related. Plan: EKG stable, pacer check stable, troponin negative. Continue short term course of ibuprofen. Recommend colonoscopy as outpt as patient states he is overdue. CEA screen was negative. Agree with vitamin D replacement. Pulmonary input noted and appreciated. Plan to increase activity as tolerated today, hopeful discharge today.
--- NOTE | 2016-08-12 10:41 | Pulmonology Progress Note ---
Pulmonary Progress Note Date of Service Aug 12, 2016. Attending Wenceslao Romero Subjective Patient continues to have pleurisy which seems to be bilateral in the apices intermittently radiating to the neck. He does note a years worth of [place], weight loss unintentional and lethargy. Objective Patient is sitting in bed comfortably show no signs of increased work of breathing. Vital signs: Reviewed and stable Respiratory: Clear to auscultation bilaterally Cardiac: S1-S2 regular rate and rhythm Abdomen: Positive bowel sounds soft nontender to deep palpation Extremities: No pitting edema Work-Up 1)ESR: 16 2)D-dimer: 640 3)PERCY screen: pending 4)Serology: a.Influenza A+B: negative b.Hepatitis: pending c.[place]: negative d.(01/29/14) Beta-2-GPI: IgG Ab, IgA Ab, IgM Ab: negative e.(01/29/14) Anti-Cardiolipin IgG, IgA, IgM: negative 5)CTA Chest (08/19/16) compared to 01/29/2014 a.No evidence for PE b.No change from prior c. Pleural thickening bilaterally no calcifications noted Assessment & Plan 71-year-old male with pleurisy with unintentional weight loss 1 year: 1 pleurisy: The most likely etiologies are most common for pleurisy or viral, bacterial, fungal, autoimmune, medications or previous rib fractures. After interviewing this patient though I also think malignancy, mesothelioma this is a history of asbestos exposure should be placed on this list. I spoken to the patient and he has agreed to follow up at the [facility] for evaluation of mesothelioma possible pleural biopsy. #2 ACOS: I reviewed patient's pulmonary function studies which show signs of OVD (FEV1: 2.28/65% --FEV1/FVC: 68%, RV: 123%) with greater than 200 cc as well as 12% reversibility noted status post bronchodilator therapy. At this time continue current medication regimen/inhalers. #3 Pulmonary nodules: CT angiogram of 08/19/16 compared to 01/29/2014 no signs of change. Patient is at high risk for primary lung carcinoma but no change management lead a three-year window suggest a follow-up at this time is necessary. #4 BRENDA/restless leg syndrome: Patient previously noncompliant with CPAP device can readdress as an outpatient. No further inpatient follow-up is necessary we'll follow up in the [facility] Data Medications: Current Inpatient Medications Medications (Trade) Dose Ordered Sig/Juliette Route Start Time Stop Time Status Last Admin Dose Admin Heparin Sodium (Porcine) (Heparin Sq 5000 Unit/0.5ml) 5,000 unit Q8 SQ 08/09/16 22:00 09/08/16 21:59 08/12/16 05:29 5,000 UNIT Acetaminophen (Tylenol Tab) 650 mg Q4H PRN PO 08/09/16 15:30 09/08/16 15:29 Ondansetron HCl (Zofran Inj) 4 mg Q6H PRN IV 08/09/16 15:30 09/08/16 15:29 Nitroglycerin (Nitrostat Tab) 0.4 mg UD PRN SL 08/09/16 15:30 09/08/16 15:29 Morphine Sulfate (MoRPHine SULFATE INJ) 2 mg Q2H PRN IV 08/09/16 15:30 08/23/16 15:29 08/10/16 03:30 2 MG Aspirin (Ecotrin Tab) 81 mg DAILY PO 08/10/16 09:00 09/09/16 08:59 08/12/16 08:33 81 MG Atorvastatin Calcium (Lipitor Tab) 40 mg DAILY PO 08/10/16 09:00 09/09/16 08:59 08/12/16 08:33 40 MG Budesonide/ Formoterol Fumarate (Symbicort 160/ 4.5 Inh) 2 puffs BID INH 08/09/16 21:00 09/08/16 20:59 08/12/16 08:31 2 PUFFS Doxazosin Mesylate (Cardura Tab) 8 mg HS PO 08/09/16 21:00 09/08/16 20:59 08/11/16 20:31 8 MG Duloxetine HCl (Cymbalta Cap) 30 mg DAILY PO 08/10/16 09:00 09/09/16 08:59 08/12/16 08:32 30 MG Finasteride (Proscar Tab) 5 mg DAILY PO 08/10/16 09:00 09/09/16 08:59 08/12/16 08:33 5 MG Fluticasone Propionate (Flonase Nasal [place]) 2 sprays BID PRN NA 08/09/16 15:45 09/08/16 15:44 Gabapentin (Neurontin Cap) 300 mg BID PO 08/09/16 21:00 09/08/16 20:59 08/12/16 08:33 300 MG Acetaminophen/ Hydrocodone Bitart ([place] 5/325 Tab) 1 tab TID PRN PO 08/09/16 15:45 08/23/16 15:44 08/12/16 08:42 1 TAB Albuterol/ Ipratropium (Duoneb) 3 ml Q8 PRN INH 08/09/16 15:45 09/08/16 15:44 Levothyroxine Sodium (Synthroid Tab) 50 mcg DAILYBB PO 08/10/16 06:00 09/09/16 06:59 08/12/16 05:30 50 MCG Lisinopril (Zestril Tab) 10 mg DAILY PO 08/10/16 09:00 09/09/16 08:59 08/12/16 08:32 10 MG Metoprolol Succinate (Toprol Xl Tab) 25 mg QAM PO 08/10/16 09:00 09/09/16 08:59 08/12/16 09:00 25 MG Pantoprazole Sodium (Protonix Tab) 40 mg DAILY PO 08/10/16 09:00 09/09/16 08:59 08/12/16 08:32 40 MG Oxybutynin Chloride (Ditropan-Xl Tab) 10 mg DAILY PO 08/10/16 09:00 09/09/16 08:59 08/12/16 08:33 10 MG Ioversol (Optiray 320) 111 ml UD PRN IV 08/09/16 17:00 08/13/16 16:59 Miscellaneous 1 ea PRN PRN N/A 08/09/16 19:00 08/09/17 18:59 Al Hydroxide/Mg Hydroxide/ Lidocaine HCl/ Barcode (Maalox Susp/ Viscous Lidocaine 2% Soln) BID PRN PO 08/09/16 20:45 09/08/16 20:44 08/10/16 02:07 24 ML Ibuprofen (Advil Tab) 400 mg TID PO 08/10/16 14:00 09/09/16 13:59 08/12/16 08:32 400 MG Polyethylene (Miralax Powder Packet) 17 gm DAILY PRN PO 08/11/16 09:00 09/10/16 08:59 Cholecalciferol (Vitamin D Tab) 3,000 inter.unit QAM PO 08/11/16 09:00 09/10/16 08:59 08/12/16 08:32 3,000 INTER.UNIT Calcium Carbonate (Tums Chew Tab) 1,500 mg DAILY PO 08/11/16 09:00 09/10/16 08:59 08/12/16 08:33 1,500 MG Multivitamins/ Minerals (Multivitamin W/ Minerals Tab) 1 tab QAM PO 08/11/16 09:00 09/10/16 08:59 08/12/16 08:32 1 TAB I & O: 24-Hour Column 08/12/16 08:00 Intake Total 1020 ml Balance 1020 ml Vital Signs: Date Time Temp Pulse Resp B/P Pulse Ox O2 Delivery O2 Flow Rate FiO2 08/12/16 08:34 36.5 64 20 126/75 93 Room Air 08/12/16 08:00 Room Air 08/12/16 04:15 36.5 67 18 157/88 91 Room Air 08/12/16 04:00 Room Air 08/11/16 23:59 Room Air 08/11/16 22:55 36.6 66 18 139/80 93 Room Air 08/11/16 20:00 Room Air 08/11/16 19:38 36.7 64 18 118/70 94 Room Air 08/11/16 17:06 36.7 65 18 112/67 94 Room Air 08/11/16 16:00 95 Room Air 08/11/16 12:26 36.6 60 18 113/62 92 Room Air 08/11/16 12:00 96 Room Air
[2016-08-12 12:51] VITALS: BP 112/67; PULSE 71; TEMP 36.7; O2SAT 94
[2016-08-12 15:09] VITALS: BP 135/80; PULSE 60; TEMP 36.5; O2SAT 93
[2016-08-12] MEDS ORDERED: IBUP-1105 PO (15:36)
[2016-08-12 15:41] VITALS: BP 135/80; PULSE 60; TEMP 36.5; O2SAT 93
--- NOTE | 2016-08-12 16:31 | Progress Note ---
Internal Med Progress Note Date of Service: Aug 12, 2016. Provider Documentation: SUBJECTIVE: no complain of chest pain or SOB feels fine present at bedside , eager to go home OBJECTIVE: Vital Signs-as noted below Exam: General-no sign of distress Eyes-sclera non icteric Lungs-CTA , no wheeze or rales Heart-regular S1/S2, Abdomen-soft, non tender Extremities-no lower ext edema Neuro-no focal deficit Lab data as noted below. ASSESSMENT & PLAN: CHEST PAIN /ATYPICAL FOR ANGINA -sharp /pleuritic -has had ongoing for 4 days with radiation to neck , no VALDOVINOS or orthopnea pain was relieved intermittently with SL recent office visit with Dr Merritt on 08/09/16 -sent to ED for evaluation of possible ACS pt remains completely symptom free cardiac markers , EKG has been unremarkable appreciate eval form Dr Holloway chest pain is very atypical for angina possible pericarditis causing transient sharp chest pain CTA of chest : no evidence of PE serial cardiac markers negative ECHO : The pericardium appears normal. There is no pericardial effusion. The left ventricle is normal in size. There is moderate concentric left ventricular hypertrophy. The left ventricular wall motion is normal. Ejection Fraction = 60-65%. started on NSAID's with improvement of symptom ESR 16 , Lyme titer negative PERCY level ordered -report pending stable to be discharged home today with PRN Motrin for possible viral pericarditis pt will continue to follow up with Cardiology Dr Erasmo Merritt in office GENERALIZED WEAKNESS /FATIGUE : reports of weakness, fatigue,poor energy , along with lack of appetite , wt loss > 15 lb in past 8-10 lbs pt has been evaluated by his family physician and Cardiology Dr Merritt in office for the ongoing symptom on April 2016 has Nuclear stress test : showed evidence of ischemia in RCA territory pt continued to feel tired and run down , persistently bradycardic, experiencing dizzy spell when standing up from sitting position pt had Cardiac cath on May 2016 -showed multivessel CAD , medically managed underwent dual chamber permanent pacemaker placement on May 2016 for symptomatic bradycardia pt taken off Metoprol for ongoing symptom TSH -wnl normal CEA , PSA level ordered for Hepatitis panel -initial screen negative Lyme titer /[place] test negative as well pt is scheduled for Colonoscopy end of last year , was kept on hold due to bradycardia , pace maker placement willing to follow up with Family physician and schedule for scope in few weeks BRENDA : pt mentions of poor sleep which has improved somewhat after pacemaker placement increase day time somnolence mentions that he fell asleep once while behind the wheel driving in , around 11: 30 am his chronic fatigue syndrome can be explained due to BRENDA pt had sleep study done few years back was ordered for CPAP says that he could not sleep with the machine and mask was very ill fitted always came off in middle of night CPAP machine was taken away -for not using it as directed Discussed with pt regarding need for repeat sleep study -not very interested to use CPAP again CTA of chest shows bibasilar plural plaque pt has hx of asbestos exposure -work related appreciate pulmonology eval will have out pt pulmonology follow up HX OF CAD : Cardica cath on 06/05/17 : 50% proximal LAD 70% mid LAD 90% ostial D1 (parallels LAD) 70% ostial RPL2 medical management recommended pt continued to have chronic fatigue syndrome presented with sharp pleuritic chest pain -atypical angina ECHO eval /lab finding showed no evidence of ACS pt will be continued with out pt cardiac meds HX OF SICK SINUS SYNDROME S/P pace maker placement in May 2016 recent pacemaker interrogation shows adequate battery reserve and functioning LEFT CALF PAIN -Doppler negative for lower ext DVT COPD -stable -continue home inhaler HLD -continue Statin HTN -Stable -continue BB, lisinopril BPH -continue Doxazosin, Proscar DEPRESSION -continue Cymbalta HYPOTHYROIDISM -continue Synthroid RLS -continue Gabapentin GERD -continue PPI DVT PROPHYLAXIS: Sq heparin CODE STATUS: LEVEL 5 DNR DISPOSITION stable to be discharged home today Medicine follow up with Dr Ramirez Cardiology follow up with Dr Merritt Vital Signs: Date Time Temp Pulse Resp B/P Pulse Ox O2 Delivery O2 Flow Rate FiO2 08/12/16 15:41 36.5 60 18 93 Room Air 08/12/16 15:09 36.5 60 18 135/80 93 Room Air 08/12/16 12:51 36.7 71 18 112/67 94 Room Air 08/12/16 12:00 Room Air 08/12/16 08:34 36.5 64 20 126/75 93 Room Air 08/12/16 08:00 Room Air 08/12/16 04:15 36.5 67 18 157/88 91 Room Air 08/12/16 04:00 Room Air 08/11/16 23:59 Room Air 08/11/16 22:55 36.6 66 18 139/80 93 Room Air 08/11/16 20:00 Room Air 08/11/16 19:38 36.7 64 18 118/70 94 Room Air 08/11/16 17:06 36.7 65 18 112/67 94 Room Air
--- NOTE | 2016-08-12 16:32 | Discharge Summary ---
Discharge Summary Admission Date: Aug 09, 2016 at 15:32 Discharge Date: Aug 12, 2016 Discharge Disposition: Home Principal Diagnosis: CHEST PAIN /NON CARDIAC /PROBABLE VIRAL PERICARDITIS / Consultations: PULMONOLOGY CARDIOLOGY Medication Reconciliation New Medications: Ibuprofen (Ibuprofen) 200 Mg Tab 400 MG PO TID PRN for Pain, #30 TAB take with full stomach Continued Medications: Aspirin Enteric Coated (Ecotrin Or Generic) 81 Mg Tab 81 MG PO DAILY, 0 Refills Atorvastatin (Atorvastatin Calcium) 40 Mg Tab 40 MG PO DAILY Budesonide/Formoterol Fumarate (Symbicort 160/4.5 Inhaler ) Aero 2 PUFFS INH BID, INHALER Cetirizine Hcl (Cetirizine Hcl) 10 Mg Chw MG PO DAILY PRN for Nasal Congestion Doxazosin Mesylate (Doxazosin Mesylate) 4 Mg Tab 8 MG PO HS Duloxetine HCl (Cymbalta) 30 Mg Cap 1 CAP PO DAILY Finasteride (Proscar) 5 Mg Tab 5 MG PO DAILY Fluticasone Propionate (Fluticasone Propionate) 50 Mcg/Act Spr 2 SPRAYS NA BID PRN for prn Gabapentin (Neurontin) 300 Mg Cap 300 MG PO BID, CAP Hydrocodone/Acetaminophen 5MG/325MG ([place] 5MG/325MG) Tab 1 TABLET PO TID PRN for Pain, TAB PRN PAIN Ipratropium-Albuterol (Duoneb) 3 Ml Nebu 1 TREATMENT INH Q8 PRN for SOB/Wheezing, INHA Levothyroxine Sodium (Levothyroxine Sodium) 50 Mcg Tab 1 TAB PO DAILY for 30 Days, #30 TAB 5 Refills Lisinopril (Prinivil) 10 Mg Tab 10 MG PO QPM, TAB Metoprolol Succinate (Metoprolol Succinate ER) 25 Mg Tabcr 25 MG PO QAM for 30 Days, #30 3 Refills Nitroglycerin (Nitrostat) 0.4 Mg/1 Tab Subl 0.4 MG SL PRN PRN for Chest Pain for 30 Days, #1 BTL 3 Refills Omeprazole (Prilosec) 20 Mg Capcr 40 MG PO DAILY Oxybutynin Chloride (Oxybutynin Chloride ER) 10 Mg Tabcr 10 MG PO DAILY Tiotropium [place] (Spiriva Handihaler) 18 Mcg/ Aerp 1 CAP INH DAILY PRN Referrals At Discharge Follow up Referrals: Physician Referral - Please Call For Appointment with Wenceslao Newman MD Admission Information HPI (per Admitting provider): Patient seen and examined. 71 year old male with PMHx of CAD, COPD, HLD, SA node dysfunction s/p pacemaker, HTN and other problems listed below presents to the ED with chest pain x 2 days. Patient reports that he has had constant pleuritic chest pain for the last several days. He states it radiates to the neck and the back. It is much worse with deep inspiration, but also has a burning quality and a sharp quality to it. He rates it as a 5/10. He has associated dyspnea on exertion. He reports associated cough. He reports he had a heart attack 20 years ago which was similar. He reports that he took nitro and that helped. He denies fevers, chills, diaphoresis, nausea, vomiting, dysuria, edema. He reports left calf pain. He reports a history of VTE previous. He was seen by Dr. Merritt for these symptoms today and was referred to the ED for further evaluation. Patient had a C in May 2016 with multivessel disease. He had a pacemaker placed at that time but no other intervention. In the ED VS are stable, Uriel are negative x 1, Patient received Aspirin, Morphine, Maalox and Protonix which helped with the pain. He will be observed for further workup and treatment. Physical Exam (per Admitting): General Appearance: + pertinent finding (Pleasant WD/WN 71 year old male lying inbed in NAD with at bedside ) Head: normocephalic, atraumatic Eyes: PERRL, EOMI, sclerae normal ENT: hearing grossly normal, pharynx normal Neck: supple, no JVD Respiratory/Chest: chest non-tender, lungs clear, normal breath sounds, no respiratory distress, no accessory muscle use Cardiovascular: regular rate, rhythm, no edema, no gallop, no JVD, no murmur , normal peripheral pulses Abdomen/GI: normal bowel sounds, non tender, soft Back: normal inspection, no muscle spasm Extremities/Musculoskelatal: normal capillary refill, no pedal edema, + calf tenderness (left ) Neurologic/Psych: alert, oriented x 3, + pertinent finding (no focal deficits ) Skin: normal color, warm/dry, no rash Lymphatic: no adenopathy Hospital Course CHEST PAIN /ATYPICAL FOR ANGINA -sharp /pleuritic -has had ongoing for 4 days with radiation to neck , no VALDOVINOS or orthopnea pain was relieved intermittently with SL recent office visit with Dr Merritt on 08/09/16 -sent to ED for evaluation of possible ACS pt remains completely symptom free cardiac markers , EKG has been unremarkable appreciate eval form Dr Holloway chest pain is very atypical for angina possible pericarditis causing transient sharp chest pain CTA of chest : no evidence of PE serial cardiac markers negative ECHO : The pericardium appears normal. There is no pericardial effusion. The left ventricle is normal in size. There is moderate concentric left ventricular hypertrophy. The left ventricular wall motion is normal. Ejection Fraction = 60-65%. started on NSAID's with improvement of symptom ESR 16 , Lyme titer negative PERCY level ordered -report pending stable to be discharged home today with PRN Motrin for possible viral pericarditis pt will continue to follow up with Cardiology Dr Erasmo Merritt in office GENERALIZED WEAKNESS /FATIGUE : reports of weakness, fatigue,poor energy , along with lack of appetite , wt loss > 15 lb in past 8-10 lbs pt has been evaluated by his family physician and Cardiology Dr Merritt in office for the ongoing symptom on April 2016 has Nuclear stress test : showed evidence of ischemia in RCA territory pt continued to feel tired and run down , persistently bradycardic, experiencing dizzy spell when standing up from sitting position pt had Cardiac cath on May 2016 -showed multivessel CAD , medically managed underwent dual chamber permanent pacemaker placement on May 2016 for symptomatic bradycardia pt taken off Metoprol for ongoing symptom TSH -wnl normal CEA , PSA level ordered for Hepatitis panel -initial screen negative Lyme titer /[place] test negative as well pt is scheduled for Colonoscopy end of last year , was kept on hold due to bradycardia , pace maker placement willing to follow up with Family physician and schedule for scope in few weeks BRENDA : pt mentions of poor sleep which has improved somewhat after pacemaker placement increase day time somnolence mentions that he fell asleep once while behind the wheel driving in , around 11: 30 am his chronic fatigue syndrome can be explained due to BRENDA pt had sleep study done few years back was ordered for CPAP says that he could not sleep with the machine and mask was very ill fitted always came off in middle of night CPAP machine was taken away -for not using it as directed Discussed with pt regarding need for repeat sleep study -not very interested to use CPAP again CTA of chest shows bibasilar plural plaque pt has hx of asbestos exposure -work related appreciate pulmonology eval will have out pt pulmonology follow up HX OF CAD : Cardica cath on 06/05/17 : 50% proximal LAD 70% mid LAD 90% ostial D1 (parallels LAD) 70% ostial RPL2 medical management recommended pt continued to have chronic fatigue syndrome presented with sharp pleuritic chest pain -atypical angina ECHO eval /lab finding showed no evidence of ACS pt will be continued with out pt cardiac meds HX OF SICK SINUS SYNDROME S/P pace maker placement in May 2016 recent pacemaker interrogation shows adequate battery reserve and functioning LEFT CALF PAIN -Doppler negative for lower ext DVT COPD -stable -continue home inhaler HLD -continue Statin HTN -Stable -continue BB, lisinopril BPH -continue Doxazosin, Proscar DEPRESSION -continue Cymbalta HYPOTHYROIDISM -continue Synthroid RLS -continue Gabapentin GERD -continue PPI DVT PROPHYLAXIS: Sq heparin CODE STATUS: LEVEL 5 DNR DISPOSITION stable to be discharged home today Medicine follow up with Dr Ramirez Cardiology follow up with Dr Merritt Discharge Instructions DI: Medical v4 Discharge Instructions Admission Reason for Admission: Left Sided Chest Pain Discharge Discharge Diagnosis / Problem: CHEST PAIN /NON CARDIAC /PROBABLE VIRAL PERICARDITIS / Discharge Goals Goal(s): Improve disease control, Diagnostic testing, Therapeutic intervention Activity Recommendations Activity Limitations: resume your previous activity . Instructions / Follow-Up Instructions / Follow-Up HOSPITAL FOLLOW UP ON 08/16/2016 @ 2:50 PM Flavio Purvis MD Internal Medicine [facility] PLEASE HAVE REFERRAL TO SLEEP MEDICINE FOR SLEEP STUDY /EVALUATION OF OBSTRUCTIVE SLEEP [facility] FOLLOW UP on 08/16/2016 @ 8:30 AM Pacer Clinic [facility] Cardiology [facility] CARDIOLOGY FOLLOW UP ON 09/13/2016 @ 3:[address] Erasmo Merritt Jr., DO Cardiology, [facility] OUT PATIENT FOLLOW UP WITH DR NEWMAN IN PULMONOLOGY CLINIC Current Hospital Diet Patient's current hospital diet: AHA Diet (Heart Healthy) Discharge Diet Recommended Diet: AHA Diet (Heart Healthy) Pending Studies Studies pending at discharge: no Laboratory Results Hemoglobin A1c Test 08/10/16 05:35 Range/Units Estimated Average Glucose 108 mg/dl Hemoglobin A1c 5.4 4.5-5.6 % Lipid Panel Test 08/10/16 05:35 Range/Units Triglycerides Level 117 0-150 mg/dl Cholesterol Level 126 0-200 mg/dl HDL Cholesterol 52 mg/dl Cholesterol/HDL Ratio 2.4 LDL Cholesterol, Calculated 51 mg/dl Medical Emergencies . Who to Call and When: Medical Emergencies: If at any time you feel your situation is an emergency, please call 911 immediately. . Non-Emergent Contact Non-Emergency issues call your: Primary Care Provider . . "Provider Documentation" section prepared by Manda Hawley. VTE Core Measure Inpt VTE Proph given/why not?: Unfractionated heparin SQ Additional Copies To Flavio Purvis M.D. Ambrose, David L., D.O.
[2016-08-23] MEDS ORDERED: VNTHFA/IN INH (13:26)
[2016-08-23] MEDS ORDERED: DULO60CA44 PO (13:26)
[2016-08-23] MEDS ORDERED: NTRGSL/4 UT (13:26)
[2016-08-23] MEDS ORDERED: IBUP-103 PO (13:26)
[2016-08-23] MEDS ORDERED: CHOL1000 PO (13:26)
[2016-09-27] MEDS ORDERED: CYM/30 PO (10:20)
[2016-09-27] MEDS ORDERED: DULO60CA44 PO (10:22)
[2016-10-07] MEDS ORDERED: OXYC-57 PO (09:49)
[2016-10-07] MEDS ORDERED: OXYGEN (09:49)
[2016-10-07] MEDS ORDERED: METH4PAK PO (10:00)
== END 2016-08-12 16:47 | disposition home or self-care (01) ==
LOC: ENRESERVDT → ENRESERVTM → C.EDB 13:09 → C.2E 15:32
PROVIDERS: ADMIT Internal Medicine; ATTEND Hospitalist
DX: R07.89 Other chest pain (principal); K55.1 Chronic vascular disorders of intestine; R53.82 Chronic fatigue, unspecified; I25.10 Atherosclerotic heart disease of native coronary artery without angina pectoris; G47.33 Obstructive sleep apnea (adult) (pediatric); Z95.0 Presence of cardiac pacemaker; Z77.090 Contact with and (suspected) exposure to asbestos; M79.605 Pain in left leg; J44.9 Chronic obstructive pulmonary disease, unspecified; I10 Essential (primary) hypertension; N40.0 Benign prostatic hyperplasia without lower urinary tract symptoms; F32.9 Major depressive disorder, single episode, unspecified; E03.9 Hypothyroidism, unspecified; G25.81 Restless legs syndrome; Z86.718 Personal history of other venous thrombosis and embolism; Z79.899 Other long term (current) drug therapy; Z87.891 Personal history of nicotine dependence; Z79.82 Long term (current) use of aspirin; E78.5 Hyperlipidemia, unspecified; K21.9 Gastro-esophageal reflux disease without esophagitis; Z66 Do not resuscitate

== ENCOUNTER → 2016-08-30 | Day surgery (SDC) | payer OTHER ==
[2016-08-23 13:29] VITALS: Ht 177.8 cm; Wt 86.4 kg
[~2016-08-30] VITALS: Ht 177.8 cm; Wt 86.4 kg
[~2016-08-30] MED LIST changes: -CETI10CH PO; +CHOL1000 PO; +DULO60CA44 PO; +IBUP-103 PO; +METH4PAK PO; +NTRGSL/4 UT; -NTRSLP4 SL; +OXYC-57 PO; +OXYGEN; +SODIUM CHLORIDE 0.9% 500ML 500 ML IV ONE; -TPRSR25 PO; +VNTHFA/IN INH
--- NOTE | 2016-08-30 10:24 | Endo History and Physical ---
History & Physical Date of Service: Aug 30, 2016. Chief Complaint: Screening Referring Physician: Dr. Flavio Ramirez History of Present Illness Colon polyp removed in 2007; chronic constipation Past Medical History Angioplasty/Stent, Asthma, Blood Dyscrasias Past Surgical History Hx Cardiac Surgery: Yes (HEART CATH X3, NO STENT, ANGIOPLASTY X1) Hx Internal Defibrillator: No Hx Pacemaker: Yes (06-06-16) Hx Abdominal Surgery: Yes ([id number]) Hx of Implantable Prosthesis: No Hx Post-Op Nausea and Vomiting: No Hx Cancer Surgery: No Hx Thoracic Surgery: No Hx Orthopedic: Yes (LT/RT GALILEA AND RT REVISION X2, LT KNEE SURGERY) Hx Urinary Tract Surgery: No Family History None Social History Smoking Status: Former Smoker Hx Substance Use: No Hx Alcohol Use: No Allergies Coded Allergies: Latex (Verified Allergy, Mild, HIVES AND BLISTERED GOODE, 08/30/16) Adhesives (Verified Allergy, Unknown, GOODE SKIN, 08/30/16) Current Medications Reported Home Medications Medications Dose Route/Sig Max Daily Dose Days Date Category Advil (Ibuprofen) 200 Mg Tab 400 Mg PO BID 08/23/16 Reported Nitrostat (Nitroglycerin) 0.4 Mg Tab 0.4 Mg UT UD PRN 08/23/16 Reported Ventolin Hfa (Albuterol) 200 Puffs/25930 Mcg Aers 2 Puffs INH BID PRN 08/23/16 Reported Vitamin D3 (Cholecalciferol) 1,000 Unit Tab 2 Tabs PO QAM 08/23/16 Reported Cymbalta (Duloxetine Hcl) 60 Mg Cap 60 Mg PO QAM 08/23/16 Reported Atorvastatin Calcium (Atorvastatin) 40 Mg Tab 40 Mg PO QAM 08/09/16 Reported Levothyroxine Sodium 50 Mcg Tab 1 Tab PO QAM 06/05/16 Reported Oxybutynin Chloride ER (Oxybutynin Chloride) 10 Mg Tabcr 10 Mg PO QAM 06/05/16 Reported Fluticasone Propionate 50 Mcg/Act Spr 2 Sprays NA BID PRN 06/05/16 Reported Symbicort 160/4.5 Inhaler (Budesonide/Formoterol Fumarate) Aero 2 Puffs INH BID 06/05/16 Reported [place] 5MG/325MG (Acetaminophen/Hydrocodone Bitart) Tab 1 Tablet PO TID PRN 11/02/15 Reported Duoneb (Ipratropium-Albuterol) 3 Ml Nebu 1 Treatment INH Q8 PRN 10/27/15 Reported Neurontin (Gabapentin) 300 Mg Cap 300 Mg PO BID 01/29/14 Reported Doxazosin Mesylate 4 Mg Tab 8 Mg PO HS 01/29/14 Reported Prinivil (Lisinopril) 10 Mg Tab 10 Mg PO QPM 01/08/12 Reported Ecotrin Or Generic (Aspirin) 81 Mg Tab 81 Mg PO QAM 10/18/11 Reported Proscar (Finasteride) 5 Mg Tab 5 Mg PO QAM 02/28/09 Reported Spiriva Handihaler (Tiotropium [place]) 18 Mcg/ Aerp 1 Cap INH DAILY PRN 02/28/09 Reported Prilosec (Omeprazole) 20 Mg Capcr 40 Mg PO HS 02/28/09 Reported Vital Signs Weight (Kilograms): 86.36 Height (Feet): 5 Height (Inches): 10 Date Time Temp Pulse Resp B/P Pulse Ox O2 Delivery O2 Flow Rate FiO2 08/30/16 09:36 36.3 88 20 166/82 96 Room Air Physical Exam General Appearance: WD/WN, no apparent distress Respiratory/Chest: Auscultation: breath sounds normal, no wheezing Cardiovascular: Heart Auscultation: RRR, no murmurs Abdomen: Inspection & Palpation: soft, no tenderness, guarding & rebound Assessment and Plan Colonoscopy today.
--- NOTE | 2016-08-30 11:02 | Discharge Instructions ---
Endoscopy Patient Instructions Date / Procedure(s) Performed Aug 30, 2016. Colonoscopy Allergy Information Coded Allergies: Latex (Verified Allergy, Mild, HIVES AND BLISTERED GOODE, 08/30/16) Adhesives (Verified Allergy, Unknown, GOODE SKIN, 08/30/16) Discharge Date / Findings Aug 30, 2016. Diverticulosis Medication Instructions Stopped Medication(s): Patient was told to only take 4 medications this am but he doesn't remember exactly what they were. Restart Stopped Medication(s): Restart all medications today. Take Citrucel powder, two tablespoons (one coffee scoop) mixed with 1/2 capful of Miralax once daily. Provider Instructions Activity Restrictions - No exercising or heavy lifting for 24 hours. - Do not drink alcohol the day of the procedure. - Do not drive a car or operate machinery until the day after the procedure. - Do not make any important decisions or sign important papers in 24 hours after the procedure. Following Day: - Return to full activity which may include returning to work/school. Diet Start your diet with liquids and light foods (jello, soup, juice, toast). Then eat your usual diet if not nauseated. Treatment For Common After Affects For mild abdominal pain, bloating, or excessive gas: - Rest - Eat lightly - Lie on right side Follow-Up Information Follow-up with Dr. Flavio Ramirez as scheduled Anesthesia Information What You Should Know You have had a procedure that required some medicine to reduce anxiety and discomfort. This treatment is called moderate sedation. After receiving the treatment, you may be sleepy, but you will be able to breathe on your own. The effects of the treatment may last for several hours. Follow these instructions along with Activity/Diet recommendations noted above: * Do NOT do anything where dizziness or clumsiness would be dangerous. * Rest quietly at home today, then you can be up and about tomorrow. * Have a responsible person stay with you the rest of today. * You may have had an I.V. today. If so, you may take the dressing off later today. Recommendations Call your doctor if: * Trouble breathing * Continuous vomiting for more than 24 hours * Temperature above 101 degrees * Severe abdominal pain or bloating * Pain not relieved by pain medicine ordered * There is increased drainage or redness from any incision * A large amount of rectal bleeding greater than 2-3 tablespoons. (If you had a polyp/s removed or have hemorrhoids, a small amount of blood - from the rectum is to be expected.) * You have any unanswered questions or concerns. IN THE EVENT OF A SERIOUS EMERGENCY, GO TO THE NEAREST EMERGENCY ROOM Your discharge instructions were prepared by provider Noe Singleton. Patient Instructions Signature Page Gwyn Jacobsenam Patient (or Guardian) Signature/Date: I have read and understand the instructions given to me by my caregivers. Caregiver/RN/Doctor Signature/Date: The above-named patient and/or guardian has received patient instructions on this date. + Original Patient Signature Page (only) stays with chart. Please make copy for patient.
[2016-08-30 11:27] VITALS: BP 137/68; PULSE 87; O2SAT 95
--- NOTE | 2016-08-30 11:29 | Anesthesiology Progress Note ---
Anesthesia Post Op Note Date & Time Aug 30, 2016 at 11:29 Vital Signs Pain Intensity: 0 Vital Signs Past 12 Hours Date Time Temp Pulse Resp B/P Pulse Ox O2 Delivery O2 Flow Rate FiO2 08/30/16 11:27 87 20 137/68 95 Room Air 08/30/16 11:13 62 20 164/78 95 Room Air 08/30/16 10:58 63 20 126/67 94 Room Air 08/30/16 09:36 36.3 88 20 166/82 96 Room Air Notes Mental Status: alert / awake / arousable, participated in evaluation Pt Amnestic to Procedure: Yes Nausea / Vomiting: adequately controlled Pain: adequately controlled Airway Patency, RR, SpO2: stable & adequate BP & HR: stable & adequate Hydration State: stable & adequate Anesthetic Complications: no major complications apparent
--- NOTE | 2016-08-30 15:09 | GI REPORT ---
Procedure Date: 08/30/2016 10:27 AM Procedure: Colonoscopy Indications: High risk colon cancer surveillance: Personal history of colonic polyps, Incidental - Constipation Medicines: Propofol per Anesthesia Complications: No immediate complications. Estimated blood loss: None. Estimated Blood Loss: Estimated blood loss: none. Procedure: Pre-Anesthesia Assessment: - Prior to the procedure, a History and Physical was performed, and patient medications, allergies and sensitivities were reviewed. The patient's tolerance of previous anesthesia was reviewed. - ASA Grade Assessment: III - A patient with severe systemic disease. After I obtained informed consent, the scope was passed under direct vision. Throughout the procedure, the patient's blood pressure, pulse, and oxygen saturations were monitored continuously. The Scope was introduced through the anus and advanced to the terminal ileum, with identification of the appendiceal orifice and IC valve. The colonoscopy was performed without difficulty. The patient tolerated the procedure well. The quality of the bowel preparation was good. The bowel preparation used was split dose MIralax. Findings: Multiple medium-mouthed diverticula were found in the sigmoid colon. Impression: - Diverticulosis in the sigmoid colon. - No specimens collected. - The colon was otherwise normal to the terminal ileum with retroflexed views of the colon and terminal ileum. Recommendation: - Repeat colonoscopy in 5 years for surveillance. - Take Citrucel 2 TBS and MIralax 1/2 scoop daily. - Discharge patient to home (with escort). Noe Singleton M.D. Noe Singleton MD 08/30/2016 11:00:06 AM This report has been signed electronically. Note Initiated On: 08/30/2016 10:27 AM I attest to the content of the Intraoperative Record and orders documented therein, exceptions below
== END | disposition home or self-care (01) ==
LOC: C.GI 09:10
PROVIDERS: ATTEND Internal Medicine Gastroenterology
DX: Z12.11 Encounter for screening for malignant neoplasm of colon (principal); Z86.010 Personal history of colon polyps; K57.30 Diverticulosis of large intestine without perforation or abscess without bleeding; J45.909 Unspecified asthma, uncomplicated; Z79.82 Long term (current) use of aspirin; Z87.891 Personal history of nicotine dependence

== ENCOUNTER 2016-10-03 09:14 | Inpatient (IN) | payer OTHER ==
[2016-09-27 10:24] VITALS: BMI 27.0
[2016-10-03] VITALS (9 sets, daily range): BP systolic 110–138; BP diastolic 62–87; PULSE 64–94; TEMP 36.3–36.8; O2SAT 94–100; Ht 180.3 cm; Wt 88.6 kg
[~2016-10-03] VITALS: Ht 180.3 cm; Wt 88.6 kg
[2016-10-03] MEDS: LACTATED RINGER'S 1000ML IV SCH ×2 (06:00→17:56)
[~2016-10-03 09:14] MED LIST changes: +ATROPINE SULFATE 0.1 MG/ML 5ML SYR IV PRN; -CYM/30 PO; +DEXAMETHASONE SOD INJ 4 MG/ML VIAL ONE; +EpHEDrine SULFATE INJ 50 MG/ML AMP IV PRN; +FENTANYL CITRATE INJ 50 MCG/1 ML 2 ML VIAL ONE; +GLYCOPYRROLATE INJ 0.2 MG/ML VIAL ONE; +HYDROmorphone INJ 1 MG/ML SYR IV PRN; -IPRASOL4 INH; +LABETALOL HCL IV 5 MG/ML 20ML IV PRN; +LIDOCAINE HCL 2% 2 ML VIAL (20MG/ML) ONE; +MEPERIDINE HCL 25 MG/ML CARP IV PRN; -METH4PAK PO; +MIDAZOLAM HCL 1 MG/ML 2ML VIAL ONE; +NEOSTIGMINE METHYLSULFATE 5 MG/5 ML SYR ONE; +ONDANSETRON INJ 2 MG/ML 2 ML VIAL IV PRN; +ONDANSETRON INJ 2 MG/ML 2 ML VIAL ONE; -OXYC-57 PO; -OXYGEN; +PROPOFOL IV EMULSION 10 MG/ML 20 ML VIAL IV ONE; +ROCURONIUM BROMIDE 10 MG/ML 5 ML VIAL ONE; -SODIUM CHLORIDE 0.9% 500ML 500 ML IV ONE
[2016-10-03] MEDS ORDERED: EpHEDrine SULFATE 50MG/5ML SYR ONE (10:02)
[2016-10-03] MEDS ORDERED: NURSING VERBAL MED ORDER ONE ×2 (11:30→23:00)
[2016-10-03] MEDS ORDERED: ALBUT/IPRATROP 3MG/0.5MG NEB 3 ML VIAL INH SCH (12:00)
--- NOTE | 2016-10-03 13:03 | History & Physical Bridge Note ---
H&P Re-Evaluation Bridge Note: I have examined the patient, reviewed the History & Physical and in the interval since the performance of the History & Physical I have noted the following changes of clinical significance: No changes noted
[2016-10-03] MEDS ORDERED: BUPIVACAINE LIPOSOME 1/3% 266 MG/20 ML VIAL INFIL ONE (13:30)
[2016-10-03] MEDS ORDERED: SODIUM CHLORIDE 0.9% PF 50 ML VIAL ONE (13:30)
[2016-10-03] MEDS ORDERED: FENTANYL CITRATE INJ 50 MCG/1 ML 2 ML VIAL ONE ×3 (13:43→16:51)
[2016-10-03] MEDS ORDERED: CEFAZOLIN SOD 1 GM VIAL ONE (14:22)
[2016-10-03] MEDS ORDERED: VASOPRESSIN 20 UNIT/ML VIAL ONE (15:43)
[2016-10-03] MEDS ORDERED: PROPOFOL IV EMULSION 10 MG/ML 20 ML VIAL IV ONE (16:10)
[2016-10-03] MEDS ORDERED: NITROGLYCERIN 0.4 MG SL PER TAB CHARGE UT PRN (16:15)
[2016-10-03] MEDS ORDERED: OXYCODONE HCL IR 5 MG TAB (IMMEDIATE RELEASE) PO PRN (16:15)
[2016-10-03] MEDS ORDERED: ONDANSETRON INJ 2 MG/ML 2 ML VIAL IV PRN (16:15)
[2016-10-03] MEDS ORDERED: FLUTICASONE PROPIONATE NA SPR 16 GM BTL PRN (16:15)
[2016-10-03] MEDS ORDERED: TIOTROPIUM BROMIDE 5 PUFF/90 MCG INH INH PRN (16:15)
[2016-10-03] MEDS ORDERED: MoRPHine SULFATE 2 MG/ML CARP IV PRN (16:15)
[2016-10-03] MEDS ORDERED: MoRPHine SULFATE 1 MG/ML 50 ML PCA CASS IV PRN (16:45)
[2016-10-03] MEDS: FENTANYL CITRATE INJ 50 MCG/1 ML 2 ML VIAL IV PRN ×2 (16:49→16:54)
--- NOTE | 2016-10-03 16:50 | DIAGNOSTIC IMAGING REPORT ---
CHEST ONE VIEW PORTABLE CLINICAL HISTORY: left lung wedge resection postoperative evaluation COMPARISON STUDY: 08/09/2016 FINDINGS: Left hemithoracic chest tube. No evidence pneumothorax. Small mesenteric days emphysema in the left supraclavicular region. Bipolar cardiac pacemaker in good position. IMPRESSION: No evidence pneumothorax on a postoperative basis left hemithorax. Small amount subcutaneous emphysema left supraclavicular region Electronically signed by: Reji Castle M.D. 10/03/2016 4:48 PM Dictated Date/Time: 10/03/2016 4:47 PM
[2016-10-03] MEDS ORDERED: MoRPHine SULFATE 1 MG/ML 50 ML PCA CASS IV ONE (17:00)
--- NOTE | 2016-10-03 17:04 | Anesthesiology Progress Note ---
Anesthesia Post Op Note Date & Time Oct 03, 2016 at 17:01 Vital Signs Pain Intensity: 6 Vital Signs Past 12 Hours Date Time Temp Pulse Resp B/P Pulse Ox O2 Delivery O2 Flow Rate FiO2 10/03/16 16:55 83 16 109/62 100 Nasal Cannula 4 10/03/16 16:45 83 16 131/68 100 Mask 10 10/03/16 16:35 88 16 123/61 100 Mask 10 10/03/16 16:28 36.4 90 16 129/72 100 Mask 10 10/03/16 11:38 64 94 Room Air 10/03/16 09:58 36.5 94 20 131/87 Room Air 98 Notes Mental Status: alert / awake / arousable, participated in evaluation Pt Amnestic to Procedure: Yes Nausea / Vomiting: adequately controlled Pain: adequately controlled Airway Patency, RR, SpO2: stable & adequate BP & HR: stable & adequate Hydration State: stable & adequate Anesthetic Complications: no major complications apparent
[2016-10-03] MEDS: KETOROLAC TROMETHAMINE 15 MG/ML VIAL IV. SCH (18:26)
[2016-10-03] MEDS: SODIUM CHLORIDE 0.9% 1000ML 1,000 ML IV SCH (18:30)
[2016-10-03] MEDS ORDERED: NALOXONE HCL 0.4 MG/1 ML VIAL/CARP IV PRN (18:30)
[2016-10-03] MEDS: D5W AND 1/2NSS 1,000 ML IV SCH (18:32)
[2016-10-03] MEDS: ACETAMINOPHEN IV 1,000 MG in EMPTY BAG 0 ML IV SCH (20:40)
[2016-10-03] MEDS: DOCUSATE SODIUM 100 MG CAP PO SCH (20:41)
[2016-10-03] MEDS: DOXAZosin MESYLATE TAB 4 MG TAB PO SCH (20:41)
[2016-10-03] MEDS: BUDESONIDE/FORMOTEROL FUMARATE 160/4.5 60 PUFFS/INHALER INH SCH (20:41)
[2016-10-03] MEDS: LISINOPRIL 10 MG TAB PO SCH (20:42)
[2016-10-03] MEDS: GABAPENTIN 300 MG CAP PO SCH (20:42)
[2016-10-03] MEDS: PANTOprazole SOD 40 MG TAB PO SCH (20:43)
[2016-10-03] MEDS: METOCLOPRAMIDE HCL INJ 5 MG/ML 2 ML VIAL IV. SCH (22:20)
[2016-10-03] MEDS: CEFAZOLIN IV 2,000 MG in DEXTROSE 5% 50ML 100 ML IV SCH (22:23)
--- NOTE | 2016-10-03 22:49 | OPERATIVE REPORT ---
DATE OF OPERATION: 10/03/2016 PREOPERATIVE DIAGNOSES: 1. Asbestos exposure. 2. Pulmonary infiltrates. 3. Lymphadenopathy. POSTOPERATIVE DIAGNOSES: Same. PROCEDURE: 1. Robot-assisted left thoracoscopic surgery. 2. Wedge biopsy of left upper lobe apex and left lower lobe. 3. Biopsy of level 5 lymph node. 4. Parietal pleural biopsy. SURGEON: Dr. Grayson. PROGRAM MANAGEMENT INTERN: SHERINE Ulloa. ANESTHESIA: General anesthesia and endotracheal intubation with double-lumen tube. SPECIFICS OF PROCEDURE: This is a 71-year-old male who presented with increasing shortness of breath, was noted to have a lymph node in the level 5 area which had gotten larger. This was concerning and he also had infiltrates with increasing shortness of breath. We had a long talk about this. The left apex had some changes but the left lower lobe laterally at the base also had some abnormalities. He also has a history of asbestos exposure. On 10/03/2016, the patient was brought to the operating room and underwent an uncomplicated robot-assisted thoracoscopic surgery. I biopsied a very large node at the level 5 area. I also wedged out a portion of the upper lobe apex on the left as well as the lateral aspect of the left lower lobe. This corresponded to the changes we saw on the CT scan. This was done without difficulty. I also sent off a segment of parietal pleura as a biopsy. PROCEDURE IN DETAIL: The patient was brought to the operating room and laid in supine position. General anesthesia induced and endotracheal intubation was performed. This was done with a double-lumen tube. The patient was placed in a right lateral decubitus position and left chest prepped and draped in the usual sterile fashion. A total of 4 ports were placed. Three were for the robot and 1 was the export sales assistant port. The camera port was a 12 mm port and was placed a bit anterior and 2 interspaces below the scapular tip. Posterior to this, we also had another incision and anterior to this. Between the anterior and middle incision, a few interspaces inferior, just above the diaphragm, the export sales assistant port was placed. With one-lung ventilation, we were able to then go up, and as soon as we went in, we placed a stapler with the robot and fired and removed a wedge resection of the lateral aspect of the left lower lobe at the base and went up to the apex and wedged out a segment. These were sent for appropriate studies. The left lower lobe was then retracted downward and the large level 5 node was noted. We precisely dissected this out without difficulty and delivered this off the field. This was a very large node. It was acanthotic. We really had no bleeding from this. I then went over to represent the parietal pleura that had a small whitish plaque and removed a 4 x 4 cm area and delivered this off the field. Really had no bleeding. 266 mg of Exparel were mixed with 60 mL of normal saline total and injected from the 2nd to the 11th interspace. This went very nicely. The patient tolerated this aspect very well. A 24-Thai chest tube was placed in the anterior port and site and directed toward the apex, held in place with heavy silk suture. The muscle layers were closed with 0 Vicryl. 4-0 Monocryl was used in running subcuticular fashion to approximate the wound edges. We really had no air leak at the conclusion of the case and blood loss was negligible. I attest to the content of the Intraoperative Record and any orders documented therein. Any exceptio ns are noted below.
[2016-10-03] MEDS ORDERED: TAMSULOSIN HCL 0.4 MG CAP PO ONE (23:00)
[2016-10-04] MEDS: KETOROLAC TROMETHAMINE 15 MG/ML VIAL IV. SCH ×3 (01:25→18:33)
[2016-10-04 03:09] VITALS: BP 107/61; PULSE 63; TEMP 36.6; O2SAT 99
[2016-10-04] MEDS: D5W AND 1/2NSS 1,000 ML IV SCH (04:12)
[2016-10-04] MEDS: ACETAMINOPHEN IV 1,000 MG in EMPTY BAG 0 ML IV SCH (04:12)
[2016-10-04] MEDS: CEFAZOLIN IV 2,000 MG in DEXTROSE 5% 50ML 100 ML IV SCH (06:01)
[2016-10-04] MEDS: LEVOTHYROXINE 50 MCG TAB PO SCH (06:02)
[2016-10-04] MEDS: METOCLOPRAMIDE HCL INJ 5 MG/ML 2 ML VIAL IV. SCH ×2 (06:02→14:05)
[2016-10-04 06:46] LABS: BASO % 0.1 %; BASO ABS # 0.01 K/uL (0-0.2); COMPLETE YES; HEMATOCRIT 35.1 % (42-52); IG% 0.1 %; LYMPH % 10.3 %; LYMPH ABS # 0.81 K/uL (1.2-3.4); MEAN CELL VOLUME 95.4 fL (80-100); MEAN CORPUSCULAR HEMOGLOBIN 31.8 pg (25-34); MEAN CORPUSCULAR HGB CONC 33.3 g/dl (32-36); MEAN PLATELET VOLUME 10.7 fL (7.4-10.4); MONO % 11.6 %; NEUT % 77.9 %; PLATELET COUNT 170 K/uL (130-400); RED BLOOD COUNT 3.68 M/uL (4.7-6.1); WHITE BLOOD COUNT 7.85 K/uL (4.8-10.8)
[2016-10-04] MEDS: MoRPHine SULFATE 1 MG/ML 50 ML PCA CASS IV PRN ×2 (07:16→23:35)
[2016-10-04 07:19] VITALS: BP 104/60; PULSE 62; TEMP 36.5; O2SAT 97
[2016-10-04] MEDS ORDERED: ACETAMINOPHEN 325 MG TAB PO SCH (08:00)
[2016-10-04 08:24] LABS: BUN/CREATININE RATIO 17.6 (10-20); CREATININE 1.1 mg/dl (0.60-1.40); POTASSIUM 4.2 mmol/L (3.5-5.1)
--- NOTE | 2016-10-04 08:25 | DIAGNOSTIC IMAGING REPORT ---
SINGLE VIEW CHEST CLINICAL HISTORY: Status post chest tube removal. FINDINGS: An AP, portable, upright chest radiograph is performed earlier the same day 10/04/2016 and correlated with chest CT dated 08/09/2016. The examination is significantly degraded by portable technique and patient rotation. A 2-lead cardiac pacemaker is unchanged in position and largely obscures the left mid chest. The left apical chest tube has been removed. No pneumothorax is identified. The heart is enlarged. The pulmonary vasculature is noncongested. Left basilar consolidation and a trace left pleural effusion persist. The right lung is grossly clear. The skeletal structures are osteopenic. Degenerative change and scoliosis are noted in the thoracic spine. Intrathecal stimulator leads project over the midthoracic region. Cholecystectomy clips are identified in the right upper quadrant. Subcutaneous emphysema is noted in the left supraclavicular region. IMPRESSION: 1. The left apical chest tube has been removed. No pneumothorax is identified. 2. Cardiomegaly and cardiac pacemaker. There is no radiographic evidence of congestive failure. 3. Left basilar consolidation and a small left pleural effusion persist. 4. Additional findings as above. Electronically signed by: Geoffrey Auguste M.D. 10/04/2016 8:23 AM Dictated Date/Time: 10/04/2016 8:20 AM
[2016-10-04 08:55] LABS: CALCIUM 8.4 mg/dl (8.5-10.1)
--- NOTE | 2016-10-04 09:06 | DIAGNOSTIC IMAGING REPORT ---
CHEST ONE VIEW PORTABLE CLINICAL HISTORY: left lung wedge resection postoperative evaluation COMPARISON STUDY: 10/03/2016 FINDINGS: Slight pullback of the left sided chest tube. Slight increase in parenchymal markings left base unchanged in the prior study. No significant postprocedural pneumothorax. Subcutaneous emphysema slightly diminished. IMPRESSION: Slight improvement in the postoperative changes left hemithorax. Slight improvement in a post procedural subcutaneous emphysematous change. Electronically signed by: Reji Castle M.D. 10/04/2016 9:04 AM Dictated Date/Time: 10/04/2016 9:03 AM
[2016-10-04] MEDS: BUDESONIDE/FORMOTEROL FUMARATE 160/4.5 60 PUFFS/INHALER INH SCH ×2 (09:33→20:29)
[2016-10-04] MEDS: DULOXETINE HCL 60 MG CAP PO SCH (09:34)
[2016-10-04] MEDS: OXYBUTYNIN CHLORIDE 5 MG TABCR PO SCH (09:34)
[2016-10-04] MEDS: GABAPENTIN 300 MG CAP PO SCH ×2 (09:34→20:26)
[2016-10-04] MEDS: CHOLECALCIFEROL 1000 INTER.UNIT TAB PO SCH (09:35)
[2016-10-04] MEDS: FINASTERIDE 5 MG TAB PO SCH (09:35)
[2016-10-04] MEDS: DOCUSATE SODIUM 100 MG CAP PO SCH ×2 (09:36→20:26)
[2016-10-04] MEDS: ENOXAPARIN 40 MG/0.4 ML SYR SQ SCH (09:36)
[2016-10-04] MEDS: ASPIRIN 81 MG ECTAB PO SCH (09:37)
[2016-10-04] MEDS: ATORVASTATIN 40 MG TAB PO SCH (09:37)
[2016-10-04] MEDS: ALBUTEROL HFA 8 GM INHALER INH PRN (09:38)
[2016-10-04] MEDS: SODIUM CHLORIDE 0.9% 1000ML 1,000 ML IV SCH (10:08)
--- NOTE | 2016-10-04 10:47 | Anesthesiology Progress Note ---
Anesthesia Post Op Note Date & Time Oct 04, 2016 at 10:45 Vital Signs Vital Signs Past 12 Hours Date Time Temp Pulse Resp B/P Pulse Ox O2 Delivery O2 Flow Rate FiO2 10/04/16 07:30 Nasal Cannula 4.0 10/04/16 07:19 36.5 62 18 104/60 97 Nasal Cannula 4.0 10/04/16 03:09 36.6 63 17 107/61 99 Nasal Cannula 4.0 10/04/16 00:15 Nasal Cannula 4.0 10/03/16 23:09 36.8 72 17 110/62 100 Nasal Cannula 4.0 Notes Mental Status: alert / awake / arousable, participated in evaluation Pt Amnestic to Procedure: Yes Nausea / Vomiting: adequately controlled Pain: adequately controlled Airway Patency, RR, SpO2: stable & adequate BP & HR: stable & adequate Hydration State: stable & adequate Anesthetic Complications: no major complications apparent
[2016-10-04 11:13] VITALS: BP 101/54; PULSE 61; TEMP 36.7; O2SAT 93
[2016-10-04 15:30] VITALS: O2SAT 93
[2016-10-04 15:47] VITALS: BP 129/65; PULSE 62; TEMP 36.7; O2SAT 93
--- NOTE | 2016-10-04 16:00 | SURGERY PROGRESS NOTE ---
DATE: 10/04/2016 DATE: 10/04/2016. Mr. Shaver was seen today on 10/04/2016. He looks pretty good. He is complaining of some lightheadedness when he arises, but his pressure has been fine. He has drained very little from his chest tube and we pulled that today. I am actually quite happy with Mr. Shaver except he still is using oxygen. He was on 4 liters. I turned him down to 2 and he is 95%. We are going to get him up moving around today. Hemoglobin stable at 11.7. Creatinine is stable at 1.1. All in all I am quite happy with him. We will get him up to hopefully get him home tomorrow. Of course, his pathology is still pending. EUGENIA
[2016-10-04] MEDS ORDERED: MoRPHine SULFATE 1 MG/ML 50 ML PCA CASS IV ONE (17:00)
[2016-10-04] MEDS: DOXAZosin MESYLATE TAB 4 MG TAB PO SCH (20:26)
[2016-10-04] MEDS: PANTOprazole SOD 40 MG TAB PO SCH (20:27)
[2016-10-04] MEDS: LISINOPRIL 10 MG TAB PO SCH (20:28)
[2016-10-04 23:06] VITALS: BP 129/66; PULSE 63; TEMP 36.7; O2SAT 92
[2016-10-05] VITALS (9 sets, daily range): BP systolic 131–170; BP diastolic 55–81; PULSE 63–78; TEMP 36.7–36.9; O2SAT 90–94
[2016-10-05] MEDS: KETOROLAC TROMETHAMINE 15 MG/ML VIAL IV. SCH ×3 (02:16→18:00)
[2016-10-05] MEDS: LEVOTHYROXINE 50 MCG TAB PO SCH (05:55)
[2016-10-05] MEDS: MoRPHine SULFATE 1 MG/ML 50 ML PCA CASS IV PRN (07:09)
[2016-10-05] MEDS: BUDESONIDE/FORMOTEROL FUMARATE 160/4.5 60 PUFFS/INHALER INH SCH ×2 (08:40→20:52)
[2016-10-05] MEDS: FINASTERIDE 5 MG TAB PO SCH (08:41)
[2016-10-05] MEDS: OXYBUTYNIN CHLORIDE 5 MG TABCR PO SCH (08:41)
[2016-10-05] MEDS: CHOLECALCIFEROL 1000 INTER.UNIT TAB PO SCH (08:42)
[2016-10-05] MEDS: ASPIRIN 81 MG ECTAB PO SCH (08:42)
[2016-10-05] MEDS: ATORVASTATIN 40 MG TAB PO SCH (08:42)
[2016-10-05] MEDS: DOCUSATE SODIUM 100 MG CAP PO SCH ×2 (08:42→20:47)
[2016-10-05] MEDS: DULOXETINE HCL 60 MG CAP PO SCH (08:42)
[2016-10-05] MEDS: GABAPENTIN 300 MG CAP PO SCH ×2 (08:43→20:50)
[2016-10-05] MEDS: ENOXAPARIN 40 MG/0.4 ML SYR SQ SCH (09:57)
[2016-10-05] MEDS ORDERED: MoRPHine SULFATE 2 MG/ML CARP IV PRN (10:30)
[2016-10-05] MEDS: MoRPHine SULFATE 2 MG/ML CARP IV PRN ×2 (12:51→19:02)
--- NOTE | 2016-10-05 16:03 | DIAGNOSTIC IMAGING REPORT ---
SINGLE VIEW CHEST CLINICAL HISTORY: Status post VATS procedure. FINDINGS: An AP, portable, upright chest radiograph is compared to studies performed 10/04/2016 and correlated with chest CT dated 08/09/2016. The examination is significantly degraded by portable technique, apical lordotic positioning, and patient rotation. A 2-lead cardiac pacemaker is unchanged in position and largely obscures the left mid chest. The heart is enlarged. The pulmonary vasculature is noncongested. The trachea is midline. Left basilar consolidation and a trace left pleural effusion persist. Evaluation of the left apex is significant degraded by overlying structures and apical lordotic positioning. A small pneumothorax is suspected at the left lung base. The right lung is grossly clear. The skeletal structures are osteopenic. Degenerative change and scoliosis are noted in the thoracic spine. Intrathecal stimulator leads project over the midthoracic region. Cholecystectomy clips are identified in the right upper quadrant. There is extensive subcutaneous emphysema along the left chest wall. This has significantly increased from yesterday. IMPRESSION: 1. There is extensive subcutaneous emphysema along the left chest wall. This has markedly increased from yesterday. 2. Evaluation of the left apex is severely degraded by overlying structures and apical lordotic positioning. A small pneumothorax is suspected at the left lung base. No large pneumothorax is seen 3. Cardiomegaly and cardiac pacemaker. There is no radiographic evidence of congestive failure. 4. Left basilar consolidation and a small left pleural effusion persist. Electronically signed by: Geoffrey Auguste M.D. 10/05/2016 4:01 PM Dictated Date/Time: 10/05/2016 3:58 PM
--- NOTE | 2016-10-05 16:44 | SURGERY PROGRESS NOTE ---
DATE: 10/05/2016 HISTORY OF PRESENT ILLNESS: Mr. Shaver was seen today on 10/05/2016. He is now 2 days status post a lung biopsy, pleural biopsy, and lymph node biopsy. Results are still not back yet. We pulled his chest tube yesterday and he has been ambulating in the hallway and feels a bit better; however, this afternoon, I noticed a bit more subcutaneous emphysema, so ordered an x-rays. We really do not see evidence of a pneumothorax, although it is a bit difficult with the subcutaneous emphysema. His saturations have not changed. We are going to continue with 2 liters and see how his x-ray looks in the morning.
[2016-10-05] MEDS: OXYCODONE/ACETAMINOPHEN 5-325 TAB PO PRN ×2 (16:51→20:02)
[2016-10-05] MEDS: ALBUT/IPRATROP 3MG/0.5MG NEB 3 ML VIAL INH SCH ×2 (19:45→23:31)
[2016-10-05] MEDS: LISINOPRIL 10 MG TAB PO SCH (20:48)
[2016-10-05] MEDS: PANTOprazole SOD 40 MG TAB PO SCH (20:48)
[2016-10-05] MEDS: DOXAZosin MESYLATE TAB 4 MG TAB PO SCH (20:50)
[2016-10-06] VITALS (12 sets, daily range): BP systolic 132–193; BP diastolic 69–87; PULSE 67–73; TEMP 36.8–37; O2SAT 91–95
[2016-10-06] MEDS: MoRPHine SULFATE 2 MG/ML CARP IV PRN (01:46)
[2016-10-06] MEDS: KETOROLAC TROMETHAMINE 15 MG/ML VIAL IV. SCH ×3 (01:46→17:39)
[2016-10-06] MEDS: ALBUT/IPRATROP 3MG/0.5MG NEB 3 ML VIAL INH SCH ×6 (03:51→23:44)
[2016-10-06] MEDS: LEVOTHYROXINE 50 MCG TAB PO SCH (06:24)
--- NOTE | 2016-10-06 08:30 | DIAGNOSTIC IMAGING REPORT ---
CHEST ONE VIEW PORTABLE HISTORY: hypoxia COMPARISON: Chest 10/05/2016. FINDINGS: Extensive left-sided chest wall subcutaneous emphysema is again noted. There are low lung findings. Cholecystectomy. Left-sided dual-chamber pacemaker. Thoracic spinal electrodes are noted. There is mild congestive change. Left basilar density/effusion remains unchanged. The heart is mildly enlarged. No definite pneumothorax identified. IMPRESSION: 1. No change in the left-sided chest wall subcutaneous emphysema. 2. No definite left pneumothorax identified. However, a small pneumothorax could be obscured by the subcutaneous emphysema. 3. Left basilar density/effusion persists. 4. Cardiomegaly and mild congestive change. Electronically signed by: Andrei Guillen M.D. 10/06/2016 8:28 AM Dictated Date/Time: 10/06/2016 8:26 AM
[2016-10-06] MEDS: ASPIRIN 81 MG ECTAB PO SCH (09:11)
[2016-10-06] MEDS: DOCUSATE SODIUM 100 MG CAP PO SCH ×2 (09:11→21:31)
[2016-10-06] MEDS: BUDESONIDE/FORMOTEROL FUMARATE 160/4.5 60 PUFFS/INHALER INH SCH ×2 (09:11→21:20)
[2016-10-06] MEDS: ATORVASTATIN 40 MG TAB PO SCH (09:11)
[2016-10-06] MEDS: GABAPENTIN 300 MG CAP PO SCH ×2 (09:11→21:32)
[2016-10-06] MEDS: OXYBUTYNIN CHLORIDE 5 MG TABCR PO SCH (09:11)
[2016-10-06] MEDS: FINASTERIDE 5 MG TAB PO SCH (09:11)
[2016-10-06] MEDS: CHOLECALCIFEROL 1000 INTER.UNIT TAB PO SCH (09:11)
[2016-10-06] MEDS: DULOXETINE HCL 60 MG CAP PO SCH (09:11)
[2016-10-06] MEDS: ENOXAPARIN 40 MG/0.4 ML SYR SQ SCH (09:12)
--- NOTE | 2016-10-06 10:32 | SURGERY PROGRESS NOTE ---
DATE: 10/06/2016 Mr. Shaver was seen today on 10/06/2016. He is now postoperative day #3 status post a robotic wedge resection as well as a lymph node biopsy and a pleural biopsy. All of these are benign. There is no evidence of malignancy. His lung does not show evidence of pulmonary fibrosis. He is very happy to hear that. He is on 2 liters with 95% saturations this morning and does sound better. Subcutaneous emphysema has decreased. His x-ray shows no evidence of pneumothorax. I am going to order a 2-step on him today, and if his x-ray looks good tomorrow, we will let him go home.
[2016-10-06] MEDS: ALBUTEROL HFA 8 GM INHALER INH PRN (17:10)
[2016-10-06] MEDS ORDERED: COUGH DROP (SUGAR FREE) LOZ 24 LOZ/1 BOX ONE (17:42)
[2016-10-06] MEDS ORDERED: COUGH DROP (SUGAR FREE) LOZ 24 LOZ/1 BOX PO PRN (17:45)
[2016-10-06] MEDS ORDERED: NURSING DECISION MEDICATION ORDER SCH (17:45)
[2016-10-06] MEDS ORDERED: METHYLPREDNISOLONE 40 MG in SYRINGE 0 ML IV ONE (21:00)
[2016-10-06] MEDS ORDERED: NURSING VERBAL MED ORDER ONE (21:00)
[2016-10-06] MEDS: DOXAZosin MESYLATE TAB 4 MG TAB PO SCH (21:31)
[2016-10-06] MEDS: PANTOprazole SOD 40 MG TAB PO SCH (21:32)
[2016-10-06] MEDS: LISINOPRIL 10 MG TAB PO SCH (21:34)
[2016-10-07] MEDS: KETOROLAC TROMETHAMINE 15 MG/ML VIAL IV. SCH ×2 (02:00→10:54)
[2016-10-07 03:31] VITALS: BP_SYST 161; BP_SYST 184; BP_DIAS 75; BP_DIAS 77
[2016-10-07] MEDS: ALBUT/IPRATROP 3MG/0.5MG NEB 3 ML VIAL INH SCH ×3 (04:00→11:41)
[2016-10-07 04:07] VITALS: BP 127/62
[2016-10-07 05:37] VITALS: O2SAT 95
[2016-10-07] MEDS: LEVOTHYROXINE 50 MCG TAB PO SCH (05:52)
[2016-10-07 07:32] VITALS: PULSE 72; O2SAT 96
--- NOTE | 2016-10-07 07:51 | DIAGNOSTIC IMAGING REPORT ---
SINGLE VIEW CHEST CLINICAL HISTORY: Status post VATS procedure. FINDINGS: An AP, portable, upright chest radiograph is compared to study dated 10/06/2016 and correlated with chest CT dated 08/09/2016. The examination is degraded by portable technique, apical lordotic positioning, and patient rotation. A 2-lead cardiac pacemaker is unchanged in position and partially obscures the left mid chest. The heart is enlarged. The pulmonary vasculature is noncongested. The trachea is midline. Left basilar consolidation and a trace left pleural effusion persist. The right lung is grossly clear. No pneumothorax is identified. The skeletal structures are osteopenic. Degenerative change and scoliosis are noted in the thoracic spine. Intrathecal stimulator leads project over the midthoracic region. Cholecystectomy clips are identified in the right upper quadrant. There is extensive subcutaneous emphysema again seen along the left chest wall. IMPRESSION: 1. Cardiomegaly and cardiac pacemaker. There is no radiographic evidence of congestive failure. 2. Left basilar consolidation and a small left pleural effusion persist. There is improved aeration at the left lung base from yesterday. 3. No definite pneumothorax is identified. 4. Subcutaneous emphysema along the left chest wall is similar to yesterday. Electronically signed by: Geoffrey Auguste M.D. 10/07/2016 7:49 AM Dictated Date/Time: 10/07/2016 7:46 AM
[2016-10-07] MEDS: ENOXAPARIN 40 MG/0.4 ML SYR SQ SCH (09:00)
[2016-10-07] MEDS: DOCUSATE SODIUM 100 MG CAP PO SCH (09:01)
[2016-10-07] MEDS: BUDESONIDE/FORMOTEROL FUMARATE 160/4.5 60 PUFFS/INHALER INH SCH (09:01)
[2016-10-07] MEDS: DULOXETINE HCL 60 MG CAP PO SCH (09:02)
[2016-10-07] MEDS: OXYBUTYNIN CHLORIDE 5 MG TABCR PO SCH (09:06)
[2016-10-07] MEDS: ATORVASTATIN 40 MG TAB PO SCH (09:06)
[2016-10-07] MEDS: ASPIRIN 81 MG ECTAB PO SCH (09:06)
[2016-10-07] MEDS: GABAPENTIN 300 MG CAP PO SCH (09:07)
[2016-10-07] MEDS: CHOLECALCIFEROL 1000 INTER.UNIT TAB PO SCH (09:07)
[2016-10-07] MEDS: FINASTERIDE 5 MG TAB PO SCH (09:07)
[2016-10-07] MEDS ORDERED: OXYGEN (09:49)
[2016-10-07] MEDS ORDERED: OXYC-57 PO (09:49)
--- NOTE | 2016-10-07 09:52 | Discharge Instructions ---
Discharge Instructions Date of Service Oct 07, 2016. Admission Reason for Admission: Pleural Thickening, Mediastinal Adenopathy Discharge Discharge Diagnosis / Problem: Same Discharge Goals Goal(s): Decrease discomfort Activity Recommendations Activity Limitations: as noted below Lifting Limitations: gradually increase as tolerated Exercise/Sports Limitations: gradually increase as tolerated May Resume Sexual Activity: when tolerated Shower/Bathe: tomorrow . Current Hospital Diet Patient's current hospital diet: Regular Diet Discharge Diet Recommended Diet: Regular Diet Procedures Procedures Performed: Robot assisted Left Video-assisted Thoracoscopy with Pleural, Lymph Node, and Lung Biopsy Pending Studies Studies pending at discharge: no Laboratory Results Hemoglobin A1c Test 08/10/16 05:35 Range/Units Estimated Average Glucose 108 mg/dl Hemoglobin A1c 5.4 4.5-5.6 % Lipid Panel Test 08/10/16 05:35 Range/Units Triglycerides Level 117 0-150 mg/dl Cholesterol Level 126 0-200 mg/dl HDL Cholesterol 52 mg/dl Cholesterol/HDL Ratio 2.4 LDL Cholesterol, Calculated 51 mg/dl Medical Emergencies . Who to Call and When: Medical Emergencies: If at any time you feel your situation is an emergency, please call 911 immediately. . Non-Emergent Contact Non-Emergency issues call your: Specialist Call Non-Emergent contact if: temperature is above 101.5, wound has increased drainage, wound has increased redness . "Provider Documentation" section prepared by Dong Grayson. VTE Core Measure Inpt VTE Proph given/why not?: Enoxaparin (Lovenox)SQ, SCD's
[2016-10-07] MEDS ORDERED: METH4PAK PO (10:00)
--- NOTE | 2016-10-07 10:45 | DISCHARGE SUMMARY ---
DISCHARGE DIAGNOSES: 1. Emphysema. 2. Benign lymphadenopathy. 3. Hypoxia. 4. Asbestos exposure. HOSPITAL COURSE: Gwyn Shaver is a 71-year-old male with increasing shortness of breath and has asbestos exposure and there was some concern about asbestosis mesothelioma and also pulmonary fibrosis. I saw him in the office and set him up so that on 10/03/2016 he underwent an uncomplicated robotic-assisted thoracoscopic surgery with biopsies of left upper and left lower lobes. In addition he also had a large lymph node in the level 5 area which I removed in its entirety. I also did a pleural biopsy. Turns out the patient does have emphysema, but really has no evidence of malignancy or mesothelioma. He struggled a bit after surgery. He was watched on the floor, he got his chest tube out in an expedient fashion, but he was hypoxic. Subcutaneous emphysema, but this was improving over the last couple of days with hospitalization and had no evidence of pneumothorax. He did require some oxygen. In addition, he responded well to a dose of Solu-Medrol the night before he was discharged. I am going to send him home on a prednisone dosepak as well as oxygen. I will see him back in a week, I am confident he will get off of both of these soon. His incisions were clean. I have removed all of his dressings, allowed him to shower. He had no dressings or sutures which needed removal at the time of his discharge. He was ambulating in the hallway. He is tolerating a nice house diet.
[2016-10-07 11:41] VITALS: PULSE 80; O2SAT 95
[2016-10-07 13:15] VITALS: BP 127/62; PULSE 80; TEMP 36.8; O2SAT 95
== END 2016-10-07 14:00 | disposition home or self-care (01) | DRG 168 ==
LOC: ENRESERVDT → ENRESERVTM → C.ACU 09:14 → C.MSW 13:00
PROVIDERS: ADMIT Surgery; ATTEND Surgery
PROC: 07B74ZX Excision of Thorax Lymphatic, Percutaneous Endoscopic Approach, Diagnostic (ICD-10-PCS; principal; 2016-10-03 11:00)
PROC: 0BBP4ZX Excision of Left Pleura, Percutaneous Endoscopic Approach, Diagnostic (ICD-10-PCS; principal; 2016-10-03 11:00)
PROC: 0BBG4ZX Excision of Left Upper Lung Lobe, Percutaneous Endoscopic Approach, Diagnostic (ICD-10-PCS; principal; 2016-10-03 11:00)
PROC: 8E0W4CZ Robotic Assisted Procedure of Trunk Region, Percutaneous Endoscopic Approach (ICD-10-PCS; principal; 2016-10-03 11:00)
PROC: 0BBJ4ZX Excision of Left Lower Lung Lobe, Percutaneous Endoscopic Approach, Diagnostic (ICD-10-PCS; principal; 2016-10-03 11:00)
DX: R91.8 Other nonspecific abnormal finding of lung field (principal); R09.02 Hypoxemia; R59.1 Generalized enlarged lymph nodes; J84.10 Pulmonary fibrosis, unspecified; Z77.090 Contact with and (suspected) exposure to asbestos

== ENCOUNTER → 2016-10-11 | Outpatient (CLI) | payer OTHER ==
[~2016-10-11] MED LIST changes: -ATROPINE SULFATE 0.1 MG/ML 5ML SYR IV PRN; -DEXAMETHASONE SOD INJ 4 MG/ML VIAL ONE; -EpHEDrine SULFATE INJ 50 MG/ML AMP IV PRN; -FENTANYL CITRATE INJ 50 MCG/1 ML 2 ML VIAL ONE; -GLYCOPYRROLATE INJ 0.2 MG/ML VIAL ONE; -HYDROmorphone INJ 1 MG/ML SYR IV PRN; -LABETALOL HCL IV 5 MG/ML 20ML IV PRN; -LIDOCAINE HCL 2% 2 ML VIAL (20MG/ML) ONE; -MEPERIDINE HCL 25 MG/ML CARP IV PRN; +METH4PAK PO; -MIDAZOLAM HCL 1 MG/ML 2ML VIAL ONE; -NEOSTIGMINE METHYLSULFATE 5 MG/5 ML SYR ONE; -ONDANSETRON INJ 2 MG/ML 2 ML VIAL IV PRN; -ONDANSETRON INJ 2 MG/ML 2 ML VIAL ONE; +OXYC-57 PO; +OXYGEN; -PROPOFOL IV EMULSION 10 MG/ML 20 ML VIAL IV ONE; -ROCURONIUM BROMIDE 10 MG/ML 5 ML VIAL ONE
--- NOTE | 2016-10-11 12:47 | DIAGNOSTIC IMAGING REPORT ---
TWO VIEW CHEST CLINICAL HISTORY: Status post VATS procedure. FINDINGS: PA and lateral chest radiographs are compared to study dated 10/07/2016 and correlated with chest CT dated 08/09/2016. The PA view is degraded by patient rotation. A 2-lead cardiac pacemaker is unchanged in position and partially obscures the left mid chest. The heart is enlarged. The pulmonary vasculature is noncongested. The trachea is midline. Left basilar airspace opacities and a trace left pleural effusion persist. The right lung appears clear. No pneumothorax is identified. The skeletal structures are osteopenic. Degenerative change and scoliosis are noted in the thoracic spine. Intrathecal stimulator leads project over the midthoracic region. Cholecystectomy clips are identified in the right upper quadrant. There is extensive subcutaneous emphysema again seen along the left chest wall. IMPRESSION: 1. Cardiomegaly and cardiac pacemaker. There is no radiographic evidence of congestive failure. 2. Left basilar airspace opacities and a small left pleural effusion persist. 3. No pneumothorax is identified. 4. Subcutaneous emphysema along the left chest wall is unchanged. Electronically signed by: Geoffrey Auguste M.D. 10/11/2016 12:44 PM Dictated Date/Time: 10/11/2016 12:42 PM
== END | disposition home or self-care (01) ==
LOC: C.RAD 12:06
PROVIDERS: ATTEND Surgery
DX: R91.1 Solitary pulmonary nodule (principal); I51.7 Cardiomegaly; J90 Pleural effusion, not elsewhere classified

== ENCOUNTER → 2016-11-20 | Outpatient (CLI) | payer OTHER ==
[~2016-11-20] MED LIST changes: -METH4PAK PO; -OXYC-57 PO
--- NOTE | 2016-11-20 12:16 | DIAGNOSTIC IMAGING REPORT ---
CHEST 2 VIEWS ROUTINE CLINICAL HISTORY: J44.9 Chronic obstructive pulmonary [id number] COMPARISON STUDY: 10/11/2016 FINDINGS: The cardiac and mediastinal contours remain stable. A left subclavian dual-chamber central venous pacemaker is visualized. Spinal electrodes are again evident. There has been resolution of the left-sided subcutaneous emphysema. An opacity at the level the left cardiophrenic angle, likely represents scar or a fat pad. No pleural effusions are visualized[ IMPRESSION: No active disease in the chest. Electronically signed by: Elio Otto M.D. 11/20/2016 12:14 PM Dictated Date/Time: 11/20/2016 12:13 PM
== END | disposition home or self-care (01) ==
LOC: C.RAD1850 11:53
PROVIDERS: ATTEND Surgery
DX: J44.9 Chronic obstructive pulmonary disease, unspecified (principal)

== ENCOUNTER → 2017-07-18 | Day surgery (SDC) | payer OTHER ==
[2017-07-09 14:38] VITALS: Ht 177.8 cm; Wt 82.3 kg
[~2017-07-18] VITALS: Ht 177.8 cm; Wt 82.3 kg
[~2017-07-18] MED LIST changes: +ATOR-26 PO; +ATROPINE SULFATE 0.1 MG/ML 5ML SYR IV PRN; +EpHEDrine SULFATE INJ 50 MG/ML AMP IV PRN; -IBUP-103 PO; +LIDOCAINE HCL 2% 2 ML VIAL (20MG/ML) ONE; -LPT40 PO; +MRLP17X PO; +ONDANSETRON INJ 2 MG/ML 2 ML VIAL IV PRN; -OXYGEN; -PRLSR20 PO; +PROPOFOL IV EMULSION 10 MG/ML 20 ML VIAL IV ONE; +PRT/20 PO; -TIOTCAP INH
--- NOTE | 2017-07-18 10:20 | Endo History and Physical ---
History & Physical Date of Service: Jul 18, 2017. Chief Complaint: dysphagia,weight loss, anorexia Referring Physician: Dr. Flavio Purvis History of Present Illness The patient is been referred for evaluation of intermittent difficulty with swallowing. He also has a dry mouth which is under evaluation by ear nose and throat. Past Medical History Angioplasty/Stent, Asthma, Blood Dyscrasias Past Surgical History Hx Cardiac Surgery: Yes (HEART CATH X 3/NO STENTS) Hx Internal Defibrillator: No Hx Pacemaker: Yes (IMPLANTED 05/2016) Hx Abdominal Surgery: Yes ([facility]) Hx of Implantable Prosthesis: No Hx Post-Op Nausea and Vomiting: No Hx Cancer Surgery: No Hx Thoracic Surgery: No Hx Orthopedic: Yes (RT/LEFT GALILEA, RIGHT HIP REVISIONX2, LEFT KNEE ARTHROSCOPY ) Hx Urinary Tract Surgery: No Family History None Social History Smoking Status: Former Smoker Hx Substance Use: Yes (SEE MED REC) Hx Alcohol Use: Yes (OCCASIONALLY) Allergies Coded Allergies: Latex (Verified Allergy, Intermediate, HIVES AND BLISTERED GOODE, 07/09/17) Adhesives (Verified Allergy, Unknown, GOODE SKIN, 07/09/17) NO KNOWN DRUG ALLERGIES (Verified Allergy, Unknown, ., 07/09/17) Current Medications Reported Home Medications Medications Dose Route/Sig Max Daily Dose Days Date Category Miralax (Polyethylene) 17 Gm Pow 1 Dose PO DAILY PRN 07/09/17 Reported Protonix (Pantoprazole Sodium) 20 Mg Tab 20 Mg PO QAM 07/09/17 Reported Lipitor (Atorvastatin Calcium) 80 Mg Tab 80 Mg PO QAM 07/09/17 Reported Cymbalta (Duloxetine Hcl) 60 Mg Cap 60 Mg PO QAM 09/27/16 Reported Nitrostat (Nitroglycerin) 0.4 Mg Tab 0.4 Mg UT UD PRN 08/23/16 Reported Ventolin Hfa (Albuterol) 200 Puffs/28991 Mcg Aers 2 Puffs INH BID PRN 08/23/16 Reported Vitamin D3 (Cholecalciferol) 1,000 Unit Tab 2 Tabs PO QAM 08/23/16 Reported Levothyroxine Sodium 50 Mcg Tab 1 Tab PO QAM 06/05/16 Reported Oxybutynin Chloride ER (Oxybutynin Chloride) 10 Mg Tabcr 10 Mg PO QAM 06/05/16 Reported Fluticasone Propionate 50 Mcg/Act Spr 2 Sprays NA BID PRN 06/05/16 Reported Symbicort 160/4.5 Inhaler (Budesonide/Formoterol Fumarate) Aero 2 Puffs INH BID 06/05/16 Reported [place] 5MG/325MG (Acetaminophen/Hydrocodone Bitart) Tab 1 Tablet PO TID PRN 11/02/15 Reported Neurontin (Gabapentin) 300 Mg Cap 300 Mg PO BID 01/29/14 Reported Doxazosin Mesylate 4 Mg Tab 8 Mg PO HS 01/29/14 Reported Prinivil (Lisinopril) 10 Mg Tab 10 Mg PO QPM 01/08/12 Reported Ecotrin Or Generic (Aspirin) 81 Mg Tab 81 Mg PO QAM 10/18/11 Reported Proscar (Finasteride) 5 Mg Tab 5 Mg PO QAM 02/28/09 Reported Vital Signs Weight (Kilograms): 82.27 Height (Feet): 5 Height (Inches): 10 Date Time Temp Pulse Resp B/P (MAP) Pulse Ox O2 Delivery O2 Flow Rate FiO2 07/18/17 09:50 37 62 18 136/74 (94) 98 Room Air Physical Exam General Appearance: no apparent distress Respiratory/Chest: Auscultation: deminished air movement Cardiovascular: Heart Auscultation: murmur Abdomen: Inspection & Palpation: soft Assessment and Plan Patient to have upper endoscopy today for evaluation of intermittent difficulty with swallowing. We have discussed the risks and benefits of upper endoscopy to include bleeding, infection, perforation and pain.
--- NOTE | 2017-07-18 10:41 | Discharge Instructions ---
Endoscopy Patient Instructions Date / Procedure(s) Performed Jul 18, 2017. EGD Allergy Information Coded Allergies: Latex (Verified Allergy, Intermediate, HIVES AND BLISTERED GOODE, 07/09/17) Adhesives (Verified Allergy, Unknown, GOODE SKIN, 07/09/17) NO KNOWN DRUG ALLERGIES (Verified Allergy, Unknown, ., 07/09/17) Discharge Date / Findings Jul 18, 2017. 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 Diffuse gastritis Medication Instructions Stopped Medication(s): took baby asa yesterday Reported Home Medications Medications Dose Route/Sig Max Daily Dose Days Date Category Miralax (Polyethylene) 17 Gm Pow 1 Dose PO DAILY PRN 07/09/17 Reported Protonix (Pantoprazole Sodium) 20 Mg Tab 20 Mg PO QAM 07/09/17 Reported Lipitor (Atorvastatin Calcium) 80 Mg Tab 80 Mg PO QAM 07/09/17 Reported Cymbalta (Duloxetine Hcl) 60 Mg Cap 60 Mg PO QAM 09/27/16 Reported Nitrostat (Nitroglycerin) 0.4 Mg Tab 0.4 Mg UT UD PRN 08/23/16 Reported Ventolin Hfa (Albuterol) 200 Puffs/52397 Mcg Aers 2 Puffs INH BID PRN 08/23/16 Reported Vitamin D3 (Cholecalciferol) 1,000 Unit Tab 2 Tabs PO QAM 08/23/16 Reported Levothyroxine Sodium 50 Mcg Tab 1 Tab PO QAM 06/05/16 Reported Oxybutynin Chloride ER (Oxybutynin Chloride) 10 Mg Tabcr 10 Mg PO QAM 06/05/16 Reported Fluticasone Propionate 50 Mcg/Act Spr 2 Sprays NA BID PRN 06/05/16 Reported Symbicort 160/4.5 Inhaler (Budesonide/Formoterol Fumarate) Aero 2 Puffs INH BID 06/05/16 Reported [place] 5MG/325MG (Acetaminophen/Hydrocodone Bitart) Tab 1 Tablet PO TID PRN 11/02/15 Reported Neurontin (Gabapentin) 300 Mg Cap 300 Mg PO BID 01/29/14 Reported Doxazosin Mesylate 4 Mg Tab 8 Mg PO HS 01/29/14 Reported Prinivil (Lisinopril) 10 Mg Tab 10 Mg PO QPM 01/08/12 Reported Ecotrin Or Generic (Aspirin) 81 Mg Tab 81 Mg PO QAM 10/18/11 Reported Proscar (Finasteride) 5 Mg Tab 5 Mg PO QAM 02/28/09 Reported Provider Instructions Activity Restrictions - No exercising or heavy lifting for 24 hours. - Do not drink alcohol the day of the procedure. - Do not drive a car or operate machinery until the day after the procedure. - Do not make any important decisions or sign important papers in 24 hours after the procedure. Following Day: - Return to full activity which may include returning to work/school. Diet Start your diet with liquids and light foods (jello, soup, juice, toast). Then eat your usual diet if not nauseated. Treatment For Common After Affects For mild abdominal pain, bloating, or excessive gas: - Rest - Eat lightly - Lie on right side Follow-Up Information Follow-up with Dr. Flavio Purvis as scheduled Try addition of omeprazole 40 mg per day Clinic follow-up with one of our nurse practitioners in 9-12 months or sooner if needed Repeat upper endoscopy in 12-18 months Anesthesia Information What You Should Know You have had a procedure that required some medicine to reduce anxiety and discomfort. This treatment is called moderate sedation. After receiving the treatment, you may be sleepy, but you will be able to breathe on your own. The effects of the treatment may last for several hours. Follow these instructions along with Activity/Diet recommendations noted above: * Do NOT do anything where dizziness or clumsiness would be dangerous. * Rest quietly at home today, then you can be up and about tomorrow. * Have a responsible person stay with you the rest of today. * You may have had an I.V. today. If so, you may take the dressing off later today. Recommendations Call your doctor if: * Trouble breathing * Continuous vomiting for more than 24 hours * Temperature above 101 degrees * Severe abdominal pain or bloating * Pain not relieved by pain medicine ordered * There is increased drainage or redness from any incision * A large amount of rectal bleeding greater than 2-3 tablespoons. (If you had a polyp/s removed or have hemorrhoids, a small amount of blood - from the rectum is to be expected.) * You have any unanswered questions or concerns. IN THE EVENT OF A SERIOUS EMERGENCY, GO TO THE NEAREST EMERGENCY ROOM Your discharge instructions were prepared by provider Tad Aiken. Patient Instructions Signature Page Gwyn Shaver Patient (or Guardian) Signature/Date: I have read and understand the instructions given to me by my caregivers. Caregiver/RN/Doctor Signature/Date: The above-named patient and/or guardian has received patient instructions on this date. + Original Patient Signature Page (only) stays with chart. Please make copy for patient.
--- NOTE | 2017-07-18 10:46 | GI REPORT ---
Procedure Date: 07/18/2017 10:08 AM Procedure: Upper GI endoscopy Indications: Epigastric abdominal pain, Dysphagia Medicines: Monitored Anesthesia Care Complications: No immediate complications. Estimated blood loss: Minimal. Estimated Blood Loss: Estimated blood loss was minimal. Procedure: Pre-Anesthesia Assessment: - Prior to the procedure, a History and Physical was performed, and patient medications, allergies and sensitivities were reviewed. The patient's tolerance of previous anesthesia was reviewed. - The risks and benefits of the procedure and the sedation options and risks were discussed with the patient. All questions were answered and informed consent was obtained. - Patient identification and proposed procedure were verified prior to the procedure by the physician, the nurse and the well blower. The procedure was verified in the procedure room. - Pre-procedure physical examination revealed no contraindications to sedation. - ASA Grade Assessment: IV - A patient with severe systemic disease that is a constant threat to life. - After reviewing the risks and benefits, the patient was deemed in satisfactory condition to undergo the procedure. - The anesthesia plan was to use monitored anesthesia care (MAC). - Immediately prior to administration of medications, the patient was re-assessed for adequacy to receive sedatives. - The heart rate, respiratory rate, oxygen saturations, blood pressure, adequacy of pulmonary ventilation, and response to care were monitored throughout the procedure. - The physical status of the patient was re-assessed after the procedure. After obtaining informed consent, the endoscope was passed under direct vision. Throughout the procedure, the patient's blood pressure, pulse, and oxygen saturations were monitored continuously. The Scope was introduced through the mouth, and advanced to the third part of duodenum. The upper GI endoscopy was accomplished without difficulty. The patient tolerated the procedure well. Findings: No endoscopic abnormality was evident in the esophagus to explain the patient's complaint of dysphagia. It was decided, however, to proceed with dilation of the entire esophagus. A guidewire was placed and the scope was withdrawn. Dilation was performed with a Savary dilator with no resistance at 54 Fr. The endoscope was then reinserted to evaluate the success of the procedure. Estimated blood loss was minimal. The esophagus and gastroesophageal junction were examined with white light. There were esophageal mucosal changes suspicious for Mendez's esophagus. These changes involved the mucosa along an irregular Z-line (37 cm from the incisors). Circumferential salmon-colored mucosa was present from 38 to 39 cm and one tongue of salmon-colored mucosa was present from 37 to 38 cm. The maximum longitudinal extent of these esophageal mucosal changes was 3 cm in length. Mucosa was biopsied with a cold forceps for histology. One specimen bottle was sent to pathology. Estimated blood loss was minimal. Diffuse moderate inflammation characterized by congestion (edema), erythema and granularity was found in the entire examined stomach. Biopsies were taken with a cold forceps for histology. Estimated blood loss was minimal. The examined duodenum was normal. Biopsies for histology were taken with a cold forceps for evaluation of celiac disease. Estimated blood loss was minimal. Impression: - No endoscopic esophageal abnormality to explain patient's dysphagia. Esophagus dilated. Dilated. - Esophageal mucosal changes suspicious for Mendez's esophagus. Biopsied. - Gastritis. Biopsied. - Normal examined duodenum. Biopsied. Recommendation: - Discharge patient to home (ambulatory). - Advance diet as tolerated today. - Use Prilosec (omeprazole) 40 mg PO daily. - Repeat upper endoscopy in 1 year for surveillance based on pathology results. - Return to GI office to follow-up with an [employer] in 9 months. Tad Aiken D.O. Tad Aiken, 07/18/2017 10:46:25 AM This report has been signed electronically. Note Initiated On: 07/18/2017 10:08 AM I attest to the content of the Intraoperative Record and orders documented therein, exceptions below
[2017-07-18 11:01] VITALS: BP 122/81; PULSE 63; O2SAT 94
--- NOTE | 2017-07-18 11:13 | Anesthesiology Progress Note ---
Anesthesia Post Op Note Date & Time Jul 18, 2017 at 11:13 Vital Signs Pain Intensity: 6 Vital Signs Past 12 Hours Date Time Temp Pulse Resp B/P (MAP) Pulse Ox O2 Delivery O2 Flow Rate FiO2 07/18/17 10:51 62 18 109/74 (86) 93 Room Air 07/18/17 10:41 62 18 106/62 (77) 93 Room Air 07/18/17 09:50 37 62 18 136/74 (94) 98 Room Air Notes Mental Status: alert / awake / arousable, participated in evaluation Pt Amnestic to Procedure: Yes Nausea / Vomiting: adequately controlled Pain: adequately controlled Airway Patency, RR, SpO2: stable & adequate BP & HR: stable & adequate Hydration State: stable & adequate Anesthetic Complications: no major complications apparent
== END | disposition home or self-care (01) ==
LOC: C.GI 09:10
PROVIDERS: ATTEND Internal Medicine Gastroenterology
DX: R13.10 Dysphagia, unspecified (principal); R10.13 Epigastric pain; R63.4 Abnormal weight loss; R63.0 Anorexia; J45.909 Unspecified asthma, uncomplicated; Z87.891 Personal history of nicotine dependence; Z79.899 Other long term (current) drug therapy

== ENCOUNTER 2017-10-29 05:18 | Inpatient (IN) | payer OTHER ==
[2017-10-07 11:06] VITALS: BMI 26.0
[2017-10-07 12:54] LABS: BASO % 0.8 %; BASO ABS # 0.04 K/uL (0-0.2); EOS % 4.8 %; EOS ABS # 0.25 K/uL (0-0.5); HEMATOCRIT 40.5 % (42-52); HEMOGLOBIN 13.8 g/dL (14.0-18.0); LYMPH % 28.2 %; LYMPH ABS # 1.46 K/uL (1.2-3.4); MEAN CELL VOLUME 93.8 fL (80-100); MEAN CORPUSCULAR HEMOGLOBIN 31.9 pg (25-34); MEAN CORPUSCULAR HGB CONC 34.1 g/dl (32-36); MEAN PLATELET VOLUME 10.9 fL (7.4-10.4); MONO % 9.7 %; NEUT % 56.5 %; NEUT ABS # 2.92 K/uL (1.4-6.5); PLATELET COUNT 207 K/uL (130-400); RED CELL DISTRIBUTION WIDTH CV 13.1 % (11.5-14.5); RED CELL DISTRIBUTION WIDTH SD 45.4 fL (36.4-46.3); WHITE BLOOD COUNT 5.17 K/uL (4.8-10.8)
[2017-10-07 12:56] LABS: PTT PATIENT 24.3 SECONDS (21.0-31.0)
--- NOTE | 2017-10-07 13:02 | DIAGNOSTIC IMAGING REPORT ---
CHEST 2 VIEWS ROUTINE CLINICAL HISTORY: PAT preoperative evaluation COMPARISON STUDY: 11/20/2016 FINDINGS: No significant cardiac enlargement. Permanent bipolar cardiac pacemaker. Epidural electrodes overlying the mid thoracic region. Minimal chronic pleural reactive changes left base. Lungs otherwise appear clear. IMPRESSION: Chronic and postoperative change. No acute process. The above report was generated using voice recognition software. It may contain grammatical, syntax or spelling errors. Electronically signed by: Reji Castle M.D. 10/07/2017 1:01 PM Dictated Date/Time: 10/07/2017 1:00 PM
[2017-10-07 13:51] LABS: CALCIUM 9.5 mg/dl (8.5-10.1); POTASSIUM 4.4 mmol/L (3.5-5.1)
--- NOTE | 2017-10-28 17:58 | HISTORY & PHYSICAL EXAMINATION ---
DATE OF ADMISSION: 10/29/2017 CHIEF COMPLAINT: Primary osteoarthritis of the left knee. HISTORY OF PRESENT ILLNESS: Gwyn is a pleasant 72-year-old male who has been dealing with chronic increasing left knee pain over several years. X-rays and clinical examination were diagnostic for primary osteoarthritis of the left knee. After failing years of conservative treatment including multiple knee injections, he has elected to proceed with a left total knee arthroplasty. PAST MEDICAL HISTORY: Significant for heart disease which includes bradycardia and a pacemaker placement as well as 2 angioplasties, primary osteoarthritis, hyperlipidemia and emphysema, history of DVTs in his left lower extremity near his ankle. This occurred about 5 years ago and was treated in the hospital with no treatment after discharge. PAST SURGICAL HISTORY: Significant for a left knee arthroscopy, a right total hip arthroplasty in 1984, a left total hip arthroplasty in 1986, heart catheterization and angioplasty in 1997, a right hip revision in 1994, another right hip revision in 2006, cholecystectomy in 2008, heart catheterization and angioplasty in 2011, pacemaker placed in 2015 and a small portion of his lung biopsy in 2015. ALLERGIES: None. MEDICATIONS: Include Cymbalta, atorvastatin, Synthroid, Protonix, gabapentin, vitamin D, aspirin, finasteride, Plavix, lisinopril, oxybutynin, gabapentin, and Cascilla. SOCIAL HISTORY: He drinks occasional alcohol. Denies any tobacco use. He lives in a house with his , he is able to take care of him. He is an independent ambulator without assistance. FAMILY HISTORY: Denies. REVIEW OF SYSTEMS: He complains of left knee pain. All other pertinent review of systems are negative. PHYSICAL EXAMINATION: GENERAL: He is awake, alert and oriented x3. He is in no apparent distress. He is very pleasant. HEENT: Pupils are equal, round, reactive to light. Extraocular motion intact. Oral mucosa is pink and moist. HEART: The heart is regular rate per radial pulse. LUNGS: Camille symmetrically bilaterally with no audible breath sounds. ABDOMEN: Soft, nontender, nondistended. MUSCULOSKELETAL: On physical examination of his knee, he does have a slight valgus deformity. He has no effusion on exam. He has good motion from 0-120 degrees and no instability. IMAGING DATA: X-rays of the knee show advanced arthritis mostly involving the lateral compartment. There is joint space narrowing, bone on bone articulation, and osteophyte formation. IMPRESSION: Primary osteoarthritis of the left knee. PLAN: Will proceed with a [employer] Vanguard left total knee arthroplasty. Postoperatively, he will be placed on Plavix and 81 mg aspirin for DVT prophylaxis. He will be discharged to home with [facility].
[~2017-10-29] VITALS: Ht 177.8 cm; Wt 83.9 kg
[2017-10-29] VITALS (11 sets, daily range): BP systolic 122–160; BP diastolic 53–93; PULSE 59–78; TEMP 36.4–37; O2SAT 94–98; Ht 177.8 cm; Wt 83.9 kg
[~2017-10-29 05:18] MED LIST changes: +ASPI-319 PO; -ASPI81TA21 PO; -ATROPINE SULFATE 0.1 MG/ML 5ML SYR IV PRN; +CLOP1TAB15 PO; -DOXA1TAB86 PO; -DULO60CA44 PO; -EpHEDrine SULFATE INJ 50 MG/ML AMP IV PRN; +KFL/250 PO; -LIDOCAINE HCL 2% 2 ML VIAL (20MG/ML) ONE; -ONDANSETRON INJ 2 MG/ML 2 ML VIAL IV PRN; -PROPOFOL IV EMULSION 10 MG/ML 20 ML VIAL IV ONE; +SENNTAB23 PO
[2017-10-29] MEDS ORDERED: LACTATED RINGER'S 1000ML 1,000 ML IV SCH (06:00)
[2017-10-29] MEDS ORDERED: FAMOTIDINE 20 MG TAB PO SCH (06:00)
[2017-10-29] MEDS ORDERED: CEFAZOLIN 2000MG IV PUSH 15 ML IV SCH (06:00)
[2017-10-29] MEDS ORDERED: ACETAMINOPHEN 500 MG TAB PO SCH (06:00)
[2017-10-29] MEDS ORDERED: LACTATED RINGER'S 1000ML IV SCH (06:00)
[2017-10-29] MEDS ORDERED: GABAPENTIN 300 MG CAP PO SCH (06:00)
[2017-10-29] MEDS ORDERED: ROPIVACAINE 5MG/ML 30 ML 150 MG, BUPIVACAINE 0.5% MPF INJ 30 ML, EpINEphrine HCL INJ 0.... INFIL SCH ×8 (06:00)
[2017-10-29] MEDS: TRANEXAMIC ACID INJ 1,000 MG x 2 Bags IV SCH ×4 (06:30→06:44)
[2017-10-29] MEDS ORDERED: BUPIVACAINE 0.5 % 5 MG/1 ML PF 10ML VIAL ONE (06:41)
[2017-10-29] MEDS ORDERED: ORTHO JOINT ANESTHETIC ONE (06:54)
[2017-10-29] MEDS ORDERED: BACITRACIN 50000 UNIT VIAL ONE (06:54)
[2017-10-29] MEDS ORDERED: PROPOFOL IV EMULSION 10 MG/ML 20 ML VIAL ONE (06:56)
[2017-10-29] MEDS ORDERED: EpHEDrine SULFATE 50MG/5ML SYR ONE (06:56)
[2017-10-29] MEDS ORDERED: FENTANYL CITRATE INJ 50 MCG/1 ML 2 ML VIAL ONE ×2 (06:56→07:29)
[2017-10-29] MEDS ORDERED: PHENYLEPHRINE 100MCG/ML 5ML SYR ONE (06:56)
[2017-10-29] MEDS ORDERED: LIDOCAINE HCL 2% 2 ML VIAL (20MG/ML) ONE (06:56)
[2017-10-29] MEDS ORDERED: MIDAZOLAM HCL 1 MG/ML 2ML VIAL ONE (06:56)
[2017-10-29] MEDS ORDERED: EpHEDrine SULFATE INJ 50 MG/ML AMP IV PRN (08:00)
[2017-10-29] MEDS ORDERED: FENTANYL CITRATE INJ 50 MCG/1 ML 2 ML VIAL IV PRN (08:00)
[2017-10-29] MEDS ORDERED: ATROPINE SULFATE 0.1 MG/ML 5ML SYR IV PRN (08:00)
[2017-10-29] MEDS ORDERED: ONDANSETRON INJ 2 MG/ML 2 ML VIAL IV PRN ×2 (08:00→09:00)
[2017-10-29] MEDS ORDERED: DEXAMETHASONE SOD INJ 4 MG/ML VIAL ONE (08:01)
[2017-10-29] MEDS ORDERED: ONDANSETRON INJ 2 MG/ML 2 ML VIAL ONE (08:01)
--- NOTE | 2017-10-29 08:57 | [facility] Post Operative Brief Note ---
Immediate Operative Summary Operative Date October 29, 2017. Pre-Operative Diagnosis Primary osteoarthritis of left knee Post-Operative Diagnosis Same as preop Procedure(s) Performed Left Total Knee Arthroplasty Surgeon Dr. Yip Rn Intern Surgeon(s) Columba Simon PA-C Estimated Blood Loss 20 cc Findings Consistent with Post-Op Diagnosis Specimens A: left knee bone and tissue Drains None Anesthesia Type General Regional Complication(s) none Disposition Disposition: Recovery Room / PACU
[2017-10-29] MEDS ORDERED: SOD PHOSPHATE/SOD BIPHOSPHATE ENEMA 132 ML BTL PR PRN (09:00)
[2017-10-29] MEDS ORDERED: NITROGLYCERIN 0.4 MG SL PER TAB CHARGE UT PRN (09:00)
[2017-10-29] MEDS ORDERED: FLUTICASONE PROPIONATE NA SPR 16 GM BTL PRN (09:00)
[2017-10-29] MEDS ORDERED: BISACODYL 10 MG SUPP PR PRN (09:00)
[2017-10-29] MEDS ORDERED: MAGNESIUM HYDROXIDE SUSP 30 ML UDC PO PRN (09:00)
[2017-10-29] MEDS ORDERED: METOCLOPRAMIDE HCL INJ 5 MG/ML 2 ML VIAL IV PRN (09:00)
[2017-10-29] MEDS ORDERED: ALBUTEROL HFA 8 GM INHALER INH PRN (09:00)
--- NOTE | 2017-10-29 09:21 | Discharge Instructions ---
Discharge Instructions Date of Service October 29, 2017. Admission Reason for Admission: Left Knee Degenerative Joint Disease Discharge Discharge Diagnosis / Problem: Left Total Knee Discharge Goals Goal(s): Decrease discomfort, Improve function Activity Recommendations Activity Limitations: as noted below . Instructions / Follow-Up Instructions / Follow-Up Activity and Therapy Recommendations: * If you are using [facility] then Physical Therapy will be provided until they feel you are ready to start Outpatient Physical Therapy. If you are not using a Home Health agency then Outpatient Physical Therapy should start about 3-5 days from your day of surgery. Therapy will last about 6-10 weeks * It is important not to put a pillow under your knee when you are relaxing or sleeping. It is just as important to make sure you are getting your knee perfectly straight as it is to regain your knee bend. * You were shown a series of exercises in the hospital. Do these exercises three times each day including the exercises you were shown in physical therapy. * Get up and walk several times each day. For the first four weeks, try not to stand or walk for more than one hour at a time. If you do stand or walk for more than one hour, you will not hurt anything, but your leg will likely swell. * As you feel comfortable, you may change from the walker or crutches to a cane and then to independent walking. Medications: * Narcotic You will likely be sent home from the hospital with a prescription for the narcotic pain medication that worked best throughout your stay. * Aspirin Most patients will be required to take Aspirin 325mg twice a day for 6 weeks after surgery. This is obtained [id number] and a prescription is not necessary. * Other medications may be prescribed for specific circumstances. If you have any questions, please call the office at . * Resume previous home medications unless otherwise instructed TEDs/Elastic Stockings: The white elastic stockings help limit swelling and prevent blood clots from forming in your legs.~ The more you wear them, the more they work. Wear them for six weeks. Dressing Care: If the incision is not draining then you may leave the brendon open to air. If there is a little bit of drainage or if the brendon are getting stuck on your clothing then cover the incision with a dry dressing. The brendon will be removed at your 2 week follow-up appointment. Showering: You may shower 5 days from the day of surgery. Let the soapy shower water run over the brendon and pat them dry. Do not scrub or soak the incision. Things To Watch For: * Drainage from the incision site that occurs more than one week after your surgery. * Increased redness at the incision site. * Fever above 102 degrees Fahrenheit. * Unusual chest pain or shortness of breath. * Call [facility] at with any of the above problems Follow-Up Visit: Follow-up with Dr. Yip 2 weeks after your day of surgery. An appointment was probably scheduled when you signed-up for surgery in the office. If you have any questions call Office Instructions: More detailed instructions as well as Frequently Asked Questions were provided in a folder by our office when you signed-up for surgery. Please review these instructions when you get home. If you have any further questions or concerns, please feel free to call the office at [phone] Current Hospital Diet Patient's current hospital diet: Regular Diet Discharge Diet Recommended Diet: Regular Diet Procedures Procedures Performed: Left Total Knee Arthroplasty Pending Studies Studies pending at discharge: no Medical Emergencies . Who to Call and When: Medical Emergencies: If at any time you feel your situation is an emergency, please call [phone] immediately. . Non-Emergent Contact Non-Emergency issues call your: Surgeon Call Non-Emergent contact if: wound has increased drainage, wound has increased redness . "Provider Documentation" section prepared by Ismael Yip. .
--- NOTE | 2017-10-29 09:35 | DIAGNOSTIC IMAGING REPORT ---
L KNEE 1 OR 2 VIEWS ROUTINE CLINICAL HISTORY: 72 years-old Male presenting with AP/LATERAL IN PACU LEFT KNEE. TECHNIQUE: Frontal and crosstable lateral views of the left knee were obtained. COMPARISON: 09/17/2017. FINDINGS: Interval postsurgical changes of total left knee arthroplasty with patellar resurfacing. Overlying skin brendon noted. Expected intra-articular and soft tissue emphysema. No periprosthetic fracture. No malalignment. No hardware complication. IMPRESSION: Expected postsurgical appearance status post total left knee arthroplasty with patellar resurfacing. Electronically signed by: Jim Mora M.D. 10/29/2017 9:34 AM Dictated Date/Time: 10/29/2017 9:33 AM
--- NOTE | 2017-10-29 10:34 | Anesthesiology Progress Note ---
Anesthesia Post Op Note Date & Time October 29, 2017 at 10:34 Vital Signs Pain Intensity: 0 Vital Signs Past 12 Hours Date Time Temp Pulse Resp B/P (MAP) Pulse Ox O2 Delivery O2 Flow Rate FiO2 10/29/17 09:35 61 16 134/75 95 Nasal Cannula 4 10/29/17 09:25 60 16 152/81 95 Oxymask 10 10/29/17 09:15 61 16 142/70 95 Oxymask 10 10/29/17 09:07 36.4 64 12 137/72 95 Oxymask 10 10/29/17 05:30 36.6 78 20 160/93 98 Room Air Notes Mental Status: alert / awake / arousable, participated in evaluation Pt Amnestic to Procedure: Yes Nausea / Vomiting: adequately controlled Pain: adequately controlled Airway Patency, RR, SpO2: stable & adequate BP & HR: stable & adequate Hydration State: stable & adequate Anesthetic Complications: no major complications apparent
[2017-10-29] MEDS: HYDROCODONE/ACETAMIN 5/325MG TAB PO PRN ×3 (11:08→20:58)
--- NOTE | 2017-10-29 11:15 | OPERATIVE REPORT ---
DATE OF OPERATION: 10/29/2017 PREOPERATIVE DIAGNOSIS: Primary osteoarthritis of the left knee. POSTOPERATIVE DIAGNOSIS: Same. PROCEDURE: Left total knee arthroplasty. SURGEON: Ismael Yip DO DIP LUBE OPERATOR: Madi Simon PA-C, whose assistance was necessary for retraction and closure. ANESTHESIA: General with a left adductor nerve block. COMPLICATIONS: None. CONDITION: Stable to PACU. IMPLANTS USED: I used a [employer] Vanguard left total knee arthroplasty with a size 72.5 femur, a size 75 tibia, a 34 x 8.5 mm patella and a 10 mm posterior stabilized polyethylene insert. All complements were cemented with Palacos-G cement. INDICATIONS: Gwyn is a pleasant 72-year-old male who presented to my office with chronic increasing left knee pain. X-rays and clinical examination were diagnostic for primary osteoarthritis of the left knee. After failing conservative treatment, he elected to undergo a left total knee arthroplasty. OPERATION AND FINDINGS: On 10/29/2017, he arrived at [facility] for the above procedure. He was seen in the preoperative holding area and the operative extremity was identified and signed. He was given a preoperative antibiotic and a left adductor nerve block. A spinal anesthetic was not done because of the pain stimulator. He was then taken back to the operating room and put under general anesthesia. The left knee was then prepped and draped in sterile fashion. Time-out was done. The patient and operative extremity was properly identified. A midline incision was made directly over the patella. Dissection was taken down to the extensor mechanism and a medial parapatellar arthrotomy was used. The medial retinaculum was released, the fat pad was left intact. The ACL, PCL and meniscus were removed. The knee was flexed. A drill was sent down the center of the femoral canal, followed by an intramedullary kalee. Off that kalee, a distal femoral cutting block was placed. A 12 mm was resected off the distal femur at 5 degrees of valgus. A posterior referencing guide was then used to measure the distal femur and the femur measured to be a size 72.5. Two drill holes were placed in 3 degrees of external rotation and a 4-in-1 cutting block was impacted into place. Anterior, posterior and chamfer cuts were then made. The box cutting guide was then impacted and the box was resected for the posterior stabilizing component. The proximal tibia was then exposed. A drill was sent down the center of the tibial canal followed by an intramedullary kalee. Off that kalee, a proximal tibial resection guide was placed. A 3 mm was resected off the low lateral side. The tibia was then sized and a size 75 seemed to be the best fit. It was set in the appropriate rotation, drilled and then punched. The posterior aspect of the knee was then opened up and posterior osteophytes were removed with any additional soft tissue fragments. There was a large, almost ganglion cyst in the posterior medial aspect of the knee. It was opened up with a hemostat and gelatinous ganglinous fluid was removed. It was not pure synovial fluid like a Davila's cyst. The knee was then irrigated. Trial components were then placed. The knee was brought through a full range of motion and felt to be stable. The patella was then everted and 8.5 mm was resected off the posterior aspect of the patella. The patella measured to be a size 38 and 3 peg holes were then drilled. A trial was placed, the knee was brought through a full range of motion and felt to be stable. Trials were then removed. The surrounding soft tissues were then injected with 100 mL of an orthopedic pain control cocktail. The femoral, tibial, and patellar components were then cemented in place with Palacos-G cement. A size 10 posterior stabilized poly was snapped into place and the anterior bar was locked. The tourniquet was then deflated. The knee was then irrigated with 3 liters normal saline solution with bacitracin. The extensor mechanism was then closed with #1 Vicryl suture, both proximally and distally and #2 FiberWire suture in the superior medial aspect. The skin was closed with 2-0 Vicryl and 3-0 V-Loc suture and brendon. He was then placed in a soft compressive dressing, extubated, transferred to a [facility] and taken to the postanesthesia care in stable condition and tolerated the procedure well. I attest to the content of the Intraoperative Record and any orders documented therein. Any exceptions are noted below. EUGENIA
[2017-10-29] MEDS: KETOROLAC TROMETHAMINE 15 MG/ML VIAL IV. SCH ×3 (12:43→23:45)
[2017-10-29] MEDS: SODIUM CHLORIDE 0.9% 1000ML 1,000 ML IV SCH ×2 (13:19→22:13)
[2017-10-29] MEDS: CEFAZOLIN IV 2,000 MG in SYRINGE 0 ML IV SCH ×2 (15:58→23:45)
[2017-10-29] MEDS: GABAPENTIN 300 MG CAP PO SCH (20:58)
[2017-10-29] MEDS: CLOPIDOGREL BISULFATE 75 MG TAB PO SCH (20:59)
[2017-10-29] MEDS: DOCUSATE SODIUM 100 MG CAP PO SCH (20:59)
[2017-10-29] MEDS: FINASTERIDE 5 MG TAB PO SCH (20:59)
[2017-10-29] MEDS: SENNA 8.6 MG TAB PO SCH (20:59)
[2017-10-29] MEDS: BUDESONIDE/FORMOTEROL FUMARATE 160/4.5 60 PUFFS/INHALER INH SCH (21:00)
[2017-10-29] MEDS: LISINOPRIL 10 MG TAB PO SCH (21:00)
[2017-10-30 03:09] VITALS: BP 110/47; PULSE 60; TEMP 36.7; O2SAT 94
[2017-10-30] MEDS: MoRPHine SULFATE 2 MG/ML CARP IV PRN ×2 (03:48→13:50)
[2017-10-30] MEDS: LEVOTHYROXINE 50 MCG TAB PO SCH (05:46)
[2017-10-30] MEDS: KETOROLAC TROMETHAMINE 15 MG/ML VIAL IV. SCH ×3 (05:46→17:58)
[2017-10-30 06:17] LABS: HEMATOCRIT 31.2 % (42-52); HEMOGLOBIN 10.3 g/dL (14.0-18.0); MEAN PLATELET VOLUME 10.8 fL (7.4-10.4); PLATELET COUNT 162 K/uL (130-400); RED CELL DISTRIBUTION WIDTH CV 13.2 % (11.5-14.5); RED CELL DISTRIBUTION WIDTH SD 45.3 fL (36.4-46.3); WHITE BLOOD COUNT 9.27 K/uL (4.8-10.8)
[2017-10-30 06:43] LABS: CREATININE 0.91 mg/dl (0.60-1.40)
[2017-10-30 06:44] LABS: CALCIUM 8.2 mg/dl (8.5-10.1)
[2017-10-30] MEDS: SODIUM CHLORIDE 0.9% 1000ML 1,000 ML IV SCH (07:12)
[2017-10-30] MEDS: BUDESONIDE/FORMOTEROL FUMARATE 160/4.5 60 PUFFS/INHALER INH SCH ×2 (08:07→21:21)
[2017-10-30] MEDS: DOCUSATE SODIUM 100 MG CAP PO SCH ×2 (08:09→21:22)
[2017-10-30] MEDS: HYDROCODONE/ACETAMIN 5/325MG TAB PO PRN ×2 (08:09→12:23)
[2017-10-30] MEDS: MULTIVITAMIN TAB PO SCH (08:09)
[2017-10-30] MEDS: ASPIRIN 81 MG ECTAB PO SCH (08:10)
[2017-10-30] MEDS: ATORVASTATIN 40 MG TAB PO SCH (08:10)
[2017-10-30] MEDS: GABAPENTIN 300 MG CAP PO SCH ×2 (08:10→21:23)
[2017-10-30 08:25] VITALS: BP 135/72; PULSE 64; TEMP 36.5; O2SAT 96
[2017-10-30] MEDS ORDERED: PANTOprazole SOD 40 MG TAB PO SCH (09:00)
[2017-10-30] MEDS: PANTOprazole SOD 40 MG TAB PO SCH (09:01)
[2017-10-30 12:05] VITALS: BP 108/62; PULSE 63; TEMP 36.6; O2SAT 96
[2017-10-30] MEDS ORDERED: NURSING VERBAL MED ORDER ONE (14:30)
[2017-10-30 15:10] VITALS: BP 123/63; PULSE 61; TEMP 36.7; O2SAT 96
[2017-10-30] MEDS: HYDROmorphone INJ 2 MG/ML SYR/VIAL IV PRN ×2 (15:29→19:31)
[2017-10-30] MEDS ORDERED: HYDR2TAB48 PO (17:56)
[2017-10-30] MEDS: OXYCODONE HCL IR 5 MG TAB (IMMEDIATE RELEASE) PO PRN (17:58)
--- NOTE | 2017-10-30 18:52 | PROGRESS NOTE ---
DATE: 10/30/2017 CHIEF COMPLAINT: Status post left total knee arthroplasty postoperative day #1. PROGRESS: Gwyn was seen and examined in that room today. He was sitting in a chair in the bathroom. Overall, he is doing better. He was having a lot of pain today. I have changed his medications to Dilaudid and oxycodone. He says it is helping out a lot. He did well today with therapy, getting up, and ambulating around the nurses' station. He has no other complaints. PHYSICAL EXAMINATION: LEFT KNEE: The dressing is clean and dry. He has active dorsiflexion, plantar flexion of his left ankle. He is sitting with his knee flexed at about 60 degrees. He is wearing his DAKOTAH hose stockings. LABORATORY DATA: He has an H and H today of 10.3 and 31.2. His glucose is 129. His vital signs are all stable on room air and he is voiding on his own. X-rays postoperatively of the left knee showed prosthesis to be in anatomic alignment without evidence of fracture, dislocation, or loosening. IMPRESSION: Status post left total knee arthroplasty postoperative day #1. Progress at this point, he is doing fairly well. He is on aspirin and Plavix for DVT prophylaxis. We will continue with the IV Dilaudid and oral oxycodone as needed for pain. I may discharge him to home on oral Dilaudid if necessary. We will plan for discharge tomorrow.
[2017-10-30] MEDS: FINASTERIDE 5 MG TAB PO SCH (21:21)
[2017-10-30] MEDS: ACETAMINOPHEN 500 MG TAB PO SCH (21:22)
[2017-10-30] MEDS: SENNA 8.6 MG TAB PO SCH (21:23)
[2017-10-30] MEDS: CLOPIDOGREL BISULFATE 75 MG TAB PO SCH (21:23)
[2017-10-30] MEDS: LISINOPRIL 10 MG TAB PO SCH (21:25)
[2017-10-30 23:01] VITALS: BP 120/63; PULSE 71; TEMP 36.7; O2SAT 92
[2017-10-31] MEDS: KETOROLAC TROMETHAMINE 15 MG/ML VIAL IV. SCH ×2 (00:25→06:18)
[2017-10-31] MEDS: OXYCODONE HCL IR 5 MG TAB (IMMEDIATE RELEASE) PO PRN ×2 (04:34→10:17)
[2017-10-31 06:03] VITALS: BP 153/65; PULSE 67; TEMP 36.7; O2SAT 95
[2017-10-31] MEDS: ACETAMINOPHEN 500 MG TAB PO SCH (06:19)
[2017-10-31] MEDS: LEVOTHYROXINE 50 MCG TAB PO SCH (06:19)
--- NOTE | 2017-10-31 06:36 | PROGRESS NOTE ---
DATE: 10/31/2017 CHIEF COMPLAINT: Status post left total knee arthroplasty postop day #2. SUBJECTIVE: Gwyn was seen and examined at bedside today. Overall, he is doing much better. The Dilaudid seems to be working better for his pain. He was able to get some sleep last night and has no complaints. PHYSICAL EXAMINATION: On examination of left knee, he is lying with his leg out in full extension. The dressing has been changed. The incisions open to air. There is no drainage. He has active dorsiflexion and plantar flexion of his left ankle. Sensation is intact. IMPRESSION: Status post left total knee arthroplasty, postop day #2. PLAN: At this point, he is doing fairly well. We will keep him on aspirin and Plavix for DVT prophylaxis. Will give him oral Dilaudid for pain control. He is going to be discharged to home later this morning after physical therapy.
[2017-10-31] MEDS: BUDESONIDE/FORMOTEROL FUMARATE 160/4.5 60 PUFFS/INHALER INH SCH (07:22)
[2017-10-31] MEDS: ATORVASTATIN 40 MG TAB PO SCH (07:23)
[2017-10-31] MEDS: DOCUSATE SODIUM 100 MG CAP PO SCH (07:23)
[2017-10-31] MEDS: ASPIRIN 81 MG ECTAB PO SCH (07:23)
[2017-10-31] MEDS: MULTIVITAMIN TAB PO SCH (07:24)
[2017-10-31] MEDS: GABAPENTIN 300 MG CAP PO SCH (07:24)
[2017-10-31] MEDS: PANTOprazole SOD 40 MG TAB PO SCH (07:24)
--- NOTE | 2017-10-31 08:05 | DISCHARGE SUMMARY ---
DATE OF DISCHARGE: 10/31/17 DISCHARGE DIAGNOSIS: Primary osteoarthritis of the left knee. PROCEDURE: Left total knee arthroplasty on 10-29-[address] Ismael Yip. DISCHARGE INSTRUCTIONS: 1. Dilaudid 2 mg every 4 hours as needed for pain. 2. Aspirin 81 mg daily. 3. Plavix 75 mg daily. 4. Albuterol 2 puffs twice a day as needed. 5. Lipitor 80 mg daily. 6. Symbicort 2 puffs twice a day. 7. Keflex 250 mg twice a day. 8. Vitamin D3 2000 units daily. 9. Proscar 5 mg daily. 10. Flonase 2 sprays twice a day as needed. 11. Neurontin 300 mg twice a day. 12. Synthroid 75 mcg daily. 13. Prinivil 10 mg daily. 14. Nitrostat 0.4 mg as needed for chest pain. 15. Oxybutynin 10 mg daily. 16. Protonix 20 mg daily. 17. MiraLax as needed for constipation. 18. Senokot 1 tab daily. 19. May shower 5 days from the day of surgery. 20. Follow up with Dr. Yip in 2 weeks. 21. Call the office of Dr. Yip with any questions or concerns. HOSPITAL COURSE: Gwyn is a very pleasant 72-year-old male who presented to my office with complaints of chronic increasing left knee pain. X-rays and clinical examination were diagnostic for primary osteoarthritis of the left knee. After failing conservative treatment, he elected to undergo a left total knee arthroplasty. On 10/29/2017 he arrived at [facility] and underwent a left knee replacement without complication. He had a general anesthetic and a left adductor nerve block. Postoperatively, he was discharged to general orthopedic floors and kept on his aspirin and Plavix for DVT prophylaxis. His hospital course was relatively uneventful. On postop day #1, his H&H was stable at 10.3 and 31.2. He did well in the morning but had a lot of pain in the afternoon. I changed his pain medications to Dilaudid and he seemed to do much better. On postop day #2, he was feeling better. His pain was better controlled. He was able to participate fairly well with physical therapy. He was subsequently discharged to home with [facility] and the above instructions.
[2017-10-31] MEDS: HYDROmorphone INJ 2 MG/ML SYR/VIAL IV PRN (08:07)
[2017-10-31 10:42] VITALS: BP 153/65; PULSE 67; TEMP 36.7; O2SAT 95
== END 2017-10-31 12:24 | disposition home health service (06) | DRG 470 ==
LOC: C.ACU 05:18 → C.3E 06:30 → ENRESERV 09:36
PROVIDERS: ADMIT Orthopaedic Surgery; ATTEND Orthopaedic Surgery
PROC: 0SRD0J9 Replacement of Left Knee Joint with Synthetic Substitute, Cemented, Open Approach (ICD-10-PCS; principal; 2017-10-29 07:15)
DX: M17.12 Unilateral primary osteoarthritis, left knee (principal); E78.5 Hyperlipidemia, unspecified; J43.9 Emphysema, unspecified; Z79.899 Other long term (current) drug therapy; Z79.82 Long term (current) use of aspirin; Z79.02 Long term (current) use of antithrombotics/antiplatelets; Z79.891 Long term (current) use of opiate analgesic; Z95.0 Presence of cardiac pacemaker; Z96.643 Presence of artificial hip joint, bilateral; Z86.718 Personal history of other venous thrombosis and embolism

== ENCOUNTER 2020-04-14 07:09 | Inpatient (IN) ==
[2020-04-14] MEDS ORDERED: valACYclovir HCL 500 MG TABLET PO ONE (08:05)
[2020-04-14] MEDS ORDERED: ACETAMINOPHEN 1,000 MG/100 ML VIAL IV STA (08:06)
[2020-04-14] MEDS ORDERED: ONDANSETRON INJ 2 MG/ML 2 ML VIAL IV STA (08:06)
[2020-04-14] MEDS: HYDROmorphone INJ 0.5 MG/0.5 ML SYR IV PRN ×6 (08:31→21:47)
[2020-04-14 08:35] LABS: iSTAT Ionized Calcium 1.21 mmol/l (1.12-1.32); iSTAT Potassium 3.8 mmol/L (3.3-5.0)
[2020-04-14] MEDS ORDERED: GABAPENTIN 300 MG CAP PO STA (08:39)
--- NOTE | 2020-04-14 08:43 | Emergency Department Note ---
History of Present Illness General Chief complaint: Facial Injury/Pain Stated complaint: FACE PAIN Time Seen by Provider: 04/14/20 07:49 Source: patient, family (son), RN notes reviewed and old records reviewed Mode of arrival: ambulatory Limitations: no limitations History of Present Illness Provider complaint: Facial pain Onset (ago): day(s) 3 Location: face Radiation: back Severity: severe Pain Consistency: + constant Maximum Pain Intensity: 10 Current Pain Intensity: 10 Quality: + stabbing Relieved By: + none Exacerbated By: + eating and + movement Associated symptoms: + loss of appetite; no chest pain, no fever/chills, no headaches, no nausea/vomiting and no shortness of breath Treatments prior to arrival: none This is a 75-year-old male who presents emergency department complaining of facial pain. The patient was seen by his primary care physician 3 days ago and placed on amoxicillin for a mouth infection. The patient reports that this infection started off as a black dot in his lip and has progressed to the right side of his face. He reports it "broke through the skin" today. The patient reports the pain is so severe he cannot swallow or drink Home Medications Home Medications Medication Instructions Recorded Confirmed Type albuterol sulfate 90 mcg/actuation 2 puffs INH BID PRN gm 02/20/18 04/14/20 History aerosol inhaler aspirin 81 mg tablet,delayed 81 mg PO QAM tab 02/20/18 04/14/20 History release atorvastatin 80 mg tablet 80 mg PO QAM tab 02/20/18 04/14/20 History budesonide-formoterol HFA 160 2 puffs INH BID 02/20/18 04/14/20 History mcg-4.5 mcg/actuation aerosol inhaler cholecalciferol (vitamin D3) 25 1,000 units PO QAM cap 02/20/18 04/14/20 History mcg (1,000 unit) capsule clopidogrel 75 mg tablet 75 mg PO QPM tab 02/20/18 04/14/20 History finasteride 5 mg tablet 5 mg PO QPM tab 02/20/18 04/14/20 History fluticasone propionate 50 2 sprays INTNAS BID gm 02/20/18 04/14/20 History mcg/actuation nasal spray,suspension levothyroxine 50 mcg tablet 50 mcg PO QAM tab 02/20/18 04/14/20 History lisinopril 10 mg tablet 10 mg PO QPM tab 02/20/18 04/14/20 History nitroglycerin 0.4 mg sublingual 0.4 mg SL Q5M PRN 02/20/18 04/14/20 History tablet oxybutynin chloride 10 mg 10 mg PO QPM tab 02/20/18 04/14/20 History tablet,extended release 24 hr sennosides 25 mg tablet 25 mg PO QAM tab 02/20/18 04/14/20 History docusate sodium 100 mg capsule 200 mg PO HS cap 07/07/18 04/14/20 History pantoprazole 40 mg tablet,delayed 40 mg PO DAILY 07/07/18 04/14/20 History release tiotropium bromide 18 mcg capsule 1 cap INH DAILY 07/07/18 04/14/20 History with inhalation device lidocaine 4 % topical patch 1 patch TOP BID 08/25/18 04/14/20 History duloxetine 60 mg capsule,delayed 60 mg PO QAM #30 cap 03/01/20 04/14/20 Rx release gabapentin 300 mg capsule 300 mg PO TID #90 cap 03/01/20 04/14/20 Rx hydrocodone 5 mg-acetaminophen 325 1 tab PO TID PRN #90 tab 03/16/20 04/14/20 Rx mg tablet duloxetine 30 mg capsule,delayed 30 mg PO QAM #30 cap 04/11/20 04/14/20 Rx release Allergies Allergy/AdvReac Type Severity Reaction Status Date / Time adhesive Allergy Unknown GOODE SKIN Verified 04/14/20 08:38 No Known Drug Allergies Allergy Unknown . 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 replacement of right hip joint Chronic right SI joint pain COPD (chronic obstructive pulmonary disease) Depression Diastolic dysfunction DVT (deep venous thrombosis) (01/29/14) Emphysema of lung Exertional shortness of breath Fingertip amputation History of left heart catheterization (LHC) HLD (hyperlipidemia) HTN (hypertension) Hypothyroidism Intercostal neuralgia Left shoulder pain Lumbar post-laminectomy syndrome Lung infiltrate Myofascial pain Neuritis of left ulnar nerve 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 Osteoarthritis of left knee Pacemaker Post-thoracotomy pain syndrome RLS (restless legs syndrome) Spinal cord stimulator status SSS (sick sinus syndrome) Symptomatic bradycardia Surgical History H/O knee surgery History of hip surgery History of total knee arthroplasty Hx of cholecystectomy Status post insertion of spinal cord stimulator Family History Mother Heart disease Social History (Updated 04/14/20 @ 18:52 by Adele Tinoco DO) Smoking Status: Former smoker Tobacco Type: Cigarettes Hx Alcohol Use: No Hx Substance Use: No Preferred Language: Setswana Communication Ability: Effective Debt Recovery Officer Required: No Beliefs That Will Affect Care: None marital status: Current Living Situation: Spouse current occupational status: disabled Other Information That Helps Us Care for You: No Feels Safe at Home: Yes Safety Concerns: Feels Safe At This Time Assistive Devices: Cane and Glasses Review of Systems A total of 10 systems reviewed and were otherwise negative Physical Exam Vital Signs Vital Signs - 24 hr 04/14/20 15:23 Temperature 37.0 C Temperature Source Oral Pulse Rate [Right Finger] 66 Respiratory Rate 16 Blood Pressure [Left Arm] 130/76 Blood Pressure Mean [Left Arm] 94 Blood Pressure Position [Left Arm] Semi-fowlers Pulse Oximetry 91 Oxygen Delivery Method Room Air VITAL SIGNS - Vital signs and nursing notes were reviewed. GENERAL - 75-year-old male appearing stated age who is in no acute distress. Communicates well with provider and answers questions appropriately. SKIN - Rash in pattern of dermatone to left side of face HEAD - NC/AT. EYES - PERRL with EOMI bilaterally. Sclera anicteric. Palpebral conjunctiva pink and moist with no injection noted. EARS - No deformities of external structures noted on gross examination bilaterally. No pain elicited with palpation of the tragus bilaterally. External auditory canals without discharge or otorrhea. Tympanic membranes pearly zurita without retraction or bulging. No fluid or purulent material visualized behind the TM. Handle of malleus, umbo, cone of light, pars tensa/flaccid all easily visualized. NOSE - Midline and without cyanosis. No epistaxis or purulent drainage noted. Septum midline without deviation or septal hematoma noted. MOUTH/OROPHARYNX - Without perioral cyanosis. Buccal mucosa pink and moist and without leukoplakia. Tongue midline with equal elevation of palate bilaterally. No tonsillar hypertrophy, erythema, or exudates noted. dentition noted. NECK - Neck with FROM. Supple to palpation. lymphadenopathy noted. No nuchal r igidity. LUNGS - Chest wall symmetric without accessory muscle use, intercostals retractions, or central cyanosis. Normal vesicular breath sounds CTA B/L. No wheezes, rales, or rhonchi appreciated. CARDIAC - RRR with S1/S2. No murmur, rubs, or gallops appreciated. ABDOMEN - Abdominal contour without pulsations or visible masses. BS normoactive all four quadrants. No tenderness, palpable masses, hepatosplenomegaly, or ascites noted. EXTREMITIES - No clubbing or peripheral cyanosis. No pretibial edema present. +3/5 radial, posterior tibial, and dorsalis pedis pulses palpated throughout. +5 /5 strength noted in UE/LE bilaterally. NEUROLOGIC - Cranial nerves II through XII grossly intact. Sensory intact to light touch throughout. Patellar reflexes +2/4. PSYCH - A&Ox3 and cooperates fully with examiner. Pt is very pleasant and interacts well with examiner. Course Administered Medications Aspirin (Aspirin 81 Mg Ectab) [facility] Stop: 05/15/20 08:59 Last Admin: 04/15/20 08:42 Dose: 81 mg Documented by: [id number] Atorvastatin Calcium (Atorvastatin 40 Mg Tab) [facility] [place] Stop: 05/15/20 08:59 Last Admin: 04/15/20 08:41 Dose: 80 mg Documented by: [id number] Clopidogrel Bisulfate (Clopidogrel Bisulfate 75 Mg Tab) 75 mg PO QPM [facility] Stop: 05/14/20 20:59 Last Admin: 04/14/20 20:32 Dose: 75 mg Documented by: [id number] Duloxetine HCl (Duloxetine Hcl 30 Mg Cap) [facility] [place] Stop: 05/15/20 08:59 Last Admin: 04/15/20 08:41 Dose: 30 mg Documented by: [id number] Duloxetine HCl (Duloxetine Hcl 60 Mg Cap) [facility] [place] Stop: 05/15/20 08:59 Last Admin: 04/15/20 08:42 Dose: 60 mg Documented by: [id number] Enoxaparin Sodium (Enoxaparin Inj 40 Mg/0.4 Ml Syr) 40 mg SQ HS FELIX Stop: 05/14/20 20:59 Last Admin: 04/14/20 20:32 Dose: 40 mg Documented by: [id number] Finasteride (Finasteride 5 Mg Tab) 5 mg PO QPM [facility]ELIX Stop: 05/14/20 20:59 Last Admin: 04/14/20 20:43 Dose: 5 mg Documented by: [id number] Gabapentin (Gabapentin 300 Mg Cap) 300 mg PO TID FELIX Stop: 05/14/20 20:59 Last Admin: 04/15/20 12:41 Dose: 300 mg Documented by: [id number] Admin: 04/15/20 08:42 Dose: 300 mg Documented by: [id number] Admin: 04/14/20 20:40 Dose: 300 mg Documented by: [id number] Hydromorphone HCl (Hydromorphone Strip [employer] Operator 30 Mg/30 Ml) 30 mg IV PRN PRN; Protocol PRN Reason: SUPERVISOR BROADLOOM Pain Titration Stop: 04/29/20 11:08 Last Admin: 04/15/20 11:57 Dose: 30 mg Documented by: [id number] Cosigned by: [id number] Acyclovir Sodium 800 mg/ (Dextrose) 266 mls @ 250 mls/hr IV Q8H FELIX; Protocol Stop: 04/21/20 01:04 Last Infusion: 04/15/20 08:59 Dose: 0 mls/hr Documented by: [id number] Admin: 04/15/20 08:02 Dose: 250 mls/hr Documented by: [id number] Infusion: 04/15/20 01:15 Dose: 0 mls/hr Documented by: [id number] Admin: 04/15/20 00:04 Dose: 250 mls/hr Documented by: [id number] Infusion: 04/14/20 18:39 Dose: 0 mls/hr Documented by: [id number] Admin: 04/14/20 16:43 Dose: 250 mls/hr Documented by: [id number] Methylprednisolone 20 mg/ (Syringe) 0.32 mls @ 1.5 mls/min IV Q8H FELIX Stop: 05/14/20 15:59 Last Admin: 04/15/20 08:42 Dose: 1.5 mls/min Documented by: [id number] Admin: 04/14/20 23:39 Dose: 1.5 mls/min Documented by: [id number] Admin: 04/14/20 16:44 Dose: 1.5 mls/min Documented by: [id number] Acetaminophen (Ofirmev) 1,000 mg in 100 mls @ 400 mls/hr IV Q8H FELIX Stop: 04/17/20 15:59 Last Infusion: 04/15/20 08:59 Dose: 0 mls/hr Documented by: [id number] Admin: 04/15/20 08:41 Dose: 400 mls/hr Documented by: [id number] Infusion: 04/15/20 00:03 Dose: 0 mls/hr Documented by: [id number] Admin: 04/14/20 23:39 Dose: 400 mls/hr Documented by: [id number] Infusion: 04/14/20 17:40 Dose: 0 mls/hr Documented by: [id number] Admin: 04/14/20 17:00 Dose: 400 mls/hr Documented by: [id number] Parenteral Electrolytes (Normosol-R) 1,000 mls @ 125 mls/hr IV .Q8H FELIX Stop: 04/15/20 17:44 Last Infusion: 04/15/20 13:31 Dose: 0 mls/hr Documented by: [id number] Infusion: 04/15/20 12:39 Dose: 125 mls/hr Documented by: [id number] Infusion: 04/15/20 11:59 Dose: 0 mls/hr Documented by: [id number] Infusion: 04/15/20 06:45 Dose: 125 mls/hr Documented by: [id number] Admin: 04/15/20 05:59 Dose: 125 mls/hr Documented by: [id number] Infusion: 04/15/20 04:15 Dose: 125 mls/hr Documented by: [id number] Infusion: 04/15/20 01:15 Dose: 125 mls/hr Documented by: [id number] Infusion: 04/14/20 23:40 Dose: 0 mls/hr Documented by: [id number] Admin: 04/14/20 18:40 Dose: 125 mls/hr Documented by: [id number] Sodium Chloride (Nss 1000ml) 1,000 mls @ 15 mls/hr IV .Q24H FELIX Stop: 04/29/20 11:09 Last Admin: 04/15/20 11:58 Dose: 15 mls/hr Documented by: [id number] Levothyroxine Sodium (Levothyroxine Sodium 50 Mcg Tablet) 50 mcg PO DAILYBB FELIX Stop: 05/15/20 06:29 Last Admin: 04/15/20 06:00 Dose: 50 mcg Documented by: [id number] Lidocaine HCl (Lidocaine Hcl Viscous Soln 2% 15 Ml Udc) 15 ml MT TID PRN PRN Reason: severe pain in mouth Stop: 05/14/20 15:59 Last Admin: 04/14/20 16:40 Dose: 15 ml Documented by: [id number] Lisinopril (Lisinopril 10 Mg Tab) 10 mg PO QPM FELIX Stop: 05/14/20 20:59 Last Admin: 04/14/20 20:32 Dose: 10 mg Documented by: [id number] Pantoprazole Sodium (Pantoprazole 40 Mg Tab) 40 mg PO DAILY FELIX Stop: 05/15/20 08:59 Last Admin: 04/15/20 08:42 Dose: 40 mg Documented by: [id number] Discontinued Medications Hydrocodone Bitart/Acetaminophen (Hydrocodone/Acetamophen 5/325mg Tab) 1 tab PO TID PRN PRN Reason: Pain Stop: 04/28/20 16:02 Last Admin: 04/14/20 19:40 Dose: 1 tab Documented by: [id number] Gabapentin (Gabapentin 300 Mg Cap) 300 mg PO NOW STA Stop: 04/14/20 08:40 Last Admin: 04/14/20 09:27 Dose: 300 mg Documented by: [id number] Hydromorphone HCl (Hydromorphone Inj 0.5 Mg/0.5 Ml Syr) 0.5 mg IV Q15M PRN PRN Reason: Pain Stop: 04/28/20 08:05 Last Admin: 04/14/20 11:58 Dose: 0.5 mg Documented by: [id number] Admin: 04/14/20 11:43 Dose: 0.5 mg Documented by: [id number] Admin: 04/14/20 08:31 Dose: 0.5 mg Documented by: [id number] Hydromorphone HCl (Hydromorphone Inj 0.5 Mg/0.5 Ml Syr) 0.5 mg IV Q1H PRN PRN Reason: Pain Stop: 04/28/20 15:59 Last Admin: 04/15/20 08:42 Dose: 0.5 mg Documented by: [id number] Admin: 04/15/20 03:35 Dose: 0.5 mg Documented by: [id number] Admin: 04/15/20 00:57 Dose: 0.5 mg Documented by: [id number] Admin: 04/14/20 21:47 Dose: 0.5 mg Documented by: [id number] Admin: 04/14/20 18:43 Dose: 0.5 mg Documented by: [id number] Admin: 04/14/20 17:02 Dose: 0.5 mg Documented by: [id number] Acetaminophen (Ofirmev) 1,000 mg in 100 mls @ 400 mls/hr IV NOW STA Stop: 04/14/20 08:20 Last Infusion: 04/14/20 08:46 Dose: 0 mls/hr Documented by: [id number] Admin: 04/14/20 08:31 Dose: 400 mls/hr Documented by: [id number] Ceftriaxone Sodium (Rocephin) 2,000 mg in 70 mls @ 140 mls/hr IV NOW STA Stop: 04/14/20 10:40 Last Infusion: 04/14/20 10:59 Dose: 0 mls/hr Documented by: [id number] Admin: 04/14/20 10:27 Dose: 140 mls/hr Documented by: [id number] Ioversol (Ioversol 100ml) 94 ml IV ONCE ONE Stop: 04/14/20 08:48 Last Admin: 04/14/20 08:47 Dose: 94 ml Documented by: [id number] Ketorolac Tromethamine (Ketorolac Tromethamine 15 Mg/Ml Vial) 15 mg IV NOW ONE Stop: 04/14/20 20:15 Last Admin: 04/14/20 20:31 Dose: 15 mg Documented by: [id number] Ondansetron HCl (Ondansetron Inj 2 Mg/Ml 2 Ml Vial) 4 mg IV NOW STA Stop: 04/14/20 08:07 Last Admin: 04/14/20 08:31 Dose: 4 mg Documented by: [id number] Valacyclovir HCl (Valacyclovir Hcl 500 Mg Tablet) 1,000 mg PO NOW ONE Stop: 04/14/20 08:06 Last Admin: 04/14/20 08:31 Dose: 1,000 mg Documented by: [id number] Medical Decision Making Differential Diagnosis Cellulitis, abscess, MRSA infection, DVT, necrotizing fasciitis, dermatitis, drug eruption, allergic reaction, as well as other pathologies. Medical Records Attestation: I reviewed the patient's medical records. Home Medications Current Medication List: was personally reviewed by me Laboratory Data Attestation: I reviewed the patient's lab results. Result diagrams: 04/15/20 05:48 04/15/20 05:48 Lab Results 04/14/20 04/14/20 04/14/20 Range/Units 08:18 08:23 09:03 WBC 5.10 (4.8-10.8) K/uL RBC 4.58 L (4.7-6.1) M/uL Hgb 14.6 (14.0-18.0) g/dL POC Hgb 16.0 (14.0-18.0) g/dl Hct 43.2 (42-52) % POC Hct 47 (42-52) % MCV 94.3 (80-100) fL MCH 31.9 (25-34) pg MCHC 33.8 (32-36) g/dL RDW Std Deviation 46.0 (36.4-46.3) fL RDW Coeff of Jarrett 13.4 (11.5-14.5) % Plt Count 171 (130-400) K/uL MPV 10.0 (7.4-10.4) fL Immature Gran % (Auto) 0.2 % Neut % (Auto) 64.1 % Lymph % (Auto) 13.1 % [place] % (Auto) 21.0 % Eos % (Auto) 1.4 % Baso % (Auto) 0.2 % Neut # (Auto) 3.27 (1.4-6.5) K/uL Lymph # (Auto) 0.67 L (1.2-3.4) K/uL [place] # (Auto) 1.07 H (0.11-0.59) K/uL Eos # (Auto) 0.07 (0-0.5) K/uL Baso # (Auto) 0.01 (0-0.2) K/uL Immature Gran # (Auto) 0.01 (0.00-0.02) K/uL POC Sodium 139 (135-144) mmol/L Sodium 136 (136-145) mmol/L POC Potassium 3.8 (3.3-5.0) mmol/L Potassium 3.7 (3.5-5.1) mmol/L POC Chloride 99 L (101-112) mmol/L Chloride 102 (98-107) mmol/L Carbon Dioxide 27 (21-32) mmol/L POC Total CO2 25 (24-31) mmol/L Anion Gap 6.0 (3-11) POC Anion Gap 19.0 (16-25) mmol/L POC BUN 15 (7-18) mg/dl BUN 15 (7-18) mg/dl Creatinine 1.19 (0.6-1.4) mg/dl POC Creatinine 1.0 (0.6-1.3) mg/dl Est Cr Clr Drug Dosing 58.0 ml/min Est GFR ( Amer) 69.3 Est GFR (Non-Af Amer) 59.8 BUN/Creatinine Ratio 12.4 (10-20) Glucose 115 H (70-99) mg/dl POC Glucose (other) 117 H (70-99) mg/dl Calcium 10.0 (8.5-10.1) mg/dl POC Ioniz Calcium Violet 1.21 (1.12-1.32) mmol/l Total Bilirubin 0.7 (0.2-1) mg/dl AST 14 L (15-37) U/L ALT 22 (12-78) U/L Alkaline Phosphatase 96 (45-117) U/L Total Protein 8.5 H (6.4-8.2) gm/dl Albumin 4.1 (3.4-5.0) gm/dl Globulin 4.4 H (2.5-4.0) gm/dl Albumin/Globulin Ratio 0.9 (0.9-2) Lipase 65 L (73-393) U/L Imaging Data Radiologist's Impression: [facility], [place] [phone] CT Scan Report Patient: CORRIE MCCARTY FAdjaylene Date: 04/14/20 MR#: [id number] MAIN Acct ID:[id number]: [facility] Zip: [place] [address] Age: 75Location: ED Sex: MRoom/Bed: Att Phy:Diagnosis: FACE PAIN Layla Phy: Guera Jay, MDService Date: 04/14/20 Fam Phy:Interpreting Phy: Andrei Guillen MD Admit Phy: Ordering Phy: Alejandro Mckeon MD cc: ~ CT facial bones w con HISTORY: Pt c/o facial pain TECHNIQUE: Multiaxial CT images of maxillofacial region were performed and reformatted in the sagittal and coronal plane following the use of 94 cc of intravenous contrast. COMPARISON STUDY: None. FINDINGS: Mild edema both within and surrounding the right submandibular gland. No evidence for an obstructing submandibular duct stone. Heterogeneous left submandibular gland without edema. Mildly enlarged right submandibular and right cervical lymph nodes compared to the left. This is likely reactive. Mild narrowing of the right carotid bulb of approximately 40% due to the calcified plaque. Prevertebral soft tissues and the epiglottis are normal in thickness. Minimal right paratracheal edema is likely reactive to the submandibular gland abnormality. Question of mild soft tissue edema within the upper lip. The airway remains patent. The visualized brain parenchyma and orbits are within normal limits. No facial fractures identified. Paranasal sinuses and mastoid air cells are clear. IMPRESSION: 1. Mild edema both within and surrounding the right submandibular gland suggestive of a sialoadenitis. No evidence for an obstructing submandibular duct stone. 2. Mild right-sided cervical lymphadenopathy which is likely reactive to the submandibular gland abnormality. 3. Questionable mild soft tissue edema within the upper lip. ACT 112: Negative or not required by law. Electronically signed by: Andrei Guillen M.D. 04/14/2020 9:18 AM Dictated: 04/14/20907 Transcribed: 04/14/20907 [facility] Narrative This is a 75-year-old male who presents the emergency department complaining of a facial rash that is only on the right side of his face. The rash does not cross the midline. It is blisterlike in appearance. The patient reports the rash only appeared today. I strongly suspect that this is actually shingles. For this reason I started the patient on Valtrex and gave him his gabapentin. He was also given Dilaudid for his pain. I did start the patient on prophylactic antibiotics including Rocephin as it is possible he could have a sialoadenitis. I gave the patient the option of going home however the family is insistent that he be admitted feels he is a poor candidate to go home. For this reason I did discuss the case with the hospitalist service who did agreed admit the patient. Patient is in agreement with the treatment plan. Patient was seen and evaluated as above in room C3. Review was performed of nursing notes and vital signs. I did review pertinent previous visits and patient history. After obtaining a thorough history and physical examination the above work up was performed. An order was placed for continuous cardiac monitoring. The monitor shows a rate of 62 with Normal Sinus rhythm. The patient was evaluated during the global COVID-19 pandemic, and that diagnosis was suspected/considered upon their initial presentation. Their evaluation, treatment and testing was consistent with current guidelines for patients who present with complaints or symptoms that may be related to COVID- 19. Impression & Plan Herpes zoster, Cellulitis of face Discharge Plan Visit Data Chief Complaint: Facial Injury/Pain Stated Complaint: FACE PAIN ED Provider: Alejandro Mckeon Discharge Problem: Herpes zoster, Cellulitis of face Patient Disposition: Admitted As Inpatient Discharge Instructions Interventions: ED Discharge Assessment Last Done: 04/14/20 12:14 Discharge Problem: Herpes zoster Qualifiers: Herpes zoster complications: without complications Qualified Code(s): B02.9 - Zoster without complications
[2020-04-14] MEDS ORDERED: IOVERSOL 100ml IV ONE (08:47)
[2020-04-14 09:13] LABS: Basophils # (auto) 0.01 K/uL (0-0.2); Basophils % (auto) 0.2 %; Eosinophils # (auto) 0.07 K/uL (0-0.5); Eosinophils % (auto) 1.4 %; Hematocrit (blood only) 43.2 % (42-52); Hemoglobin 14.6 g/dL (14.0-18.0); Immature Granulocytes # (auto) 0.01 K/uL (0.00-0.02); Immature Granulocytes % (auto) 0.2 %; Lymphocytes # (auto) 0.67 K/uL (1.2-3.4); Lymphocytes % (auto) 13.1 %; Mean Corpuscular Hemoglobin 31.9 pg (25-34); Mean Corpuscular Hgb Conc 33.8 g/dL (32-36); Mean Corpuscular Volume 94.3 fL (80-100); Monocytes # (auto) 1.07 K/uL (0.11-0.59); Neutrophils # (auto) 3.27 K/uL (1.4-6.5); Neutrophils % (auto) 64.1 %; Platelet Count 171 K/uL (130-400); RDW Coefficient of Variation 13.4 % (11.5-14.5); Red Blood Count 4.58 M/uL (4.7-6.1)
[2020-04-14 09:19] LABS: Albumin Level 4.1 gm/dl (3.4-5.0); BUN Creatinine Ratio 12.4 (10-20); Est GFR (African American) 69.3; Est GFR (Non-African American) 59.8; Potassium 3.7 mmol/L (3.5-5.1)
--- NOTE | 2020-04-14 09:19 | CT Scan Report ---
CT facial bones w con HISTORY: Pt c/o facial pain TECHNIQUE: Multiaxial CT images of maxillofacial region were performed and reformatted in the sagitta l and coronal plane following the use of 94 cc of intravenous contrast. COMPARISON STUDY: None. FINDINGS: Mild edema both within and surrounding the right submandibular gland. No evidence for an ob structing submandibular duct stone. Heterogeneous left submandibular gland without edema. Mildly enla rged right submandibular and right cervical lymph nodes compared to the left. This is likely reactive . Mild narrowing of the right carotid bulb of approximately 40% due to the calcified plaque. Preverte bral soft tissues and the epiglottis are normal in thickness. Minimal right paratracheal edema is lik lizet reactive to the submandibular gland abnormality. Question of mild soft tissue edema within the up per lip. The airway remains patent. The visualized brain parenchyma and orbits are within normal limi ts. No facial fractures identified. Paranasal sinuses and mastoid air cells are clear. IMPRESSION: 1. Mild edema both within and surrounding the right submandibular gland suggestive of a sialoadenitis . No evidence for an obstructing submandibular duct stone. 2. Mild right-sided cervical lymphadenopathy which is likely reactive to the submandibular gland abno rmality. 3. Questionable mild soft tissue edema within the upper lip. ACT 112: Negative or not required by law. Electronically signed by: Andrei Guillen M.D. 04/14/2020 9:18 AM
[2020-04-14 09:21] LABS: Albumin Globulin Ratio 0.9 (0.9-2); Bilirubin,Total 0.7 mg/dl (0.2-1); Globulin 4.4 gm/dl (2.5-4.0); Total Protein 8.5 gm/dl (6.4-8.2)
[2020-04-14] MEDS ORDERED: cefTRIAXone SODIUM 2,000 MG/70 ML BAG IV STA (10:11)
--- NOTE | 2020-04-14 11:07 | History & Physical Report ---
Date of Service April 14, 2020 Assessment & Plan (1) Zoster ophthalmicus: Complicated infection with vision involvement. Intravenous acyclovir and added solumedrol. May switch to prednisone after patient better able to tolerate PO. Refresh tears PRN. Cont home gabapentin. Narcotics, lidocaine swish, APAP for comfort. Currently NPO but only because he is refusing food because of the pain it causes. Minimizing pills, holding inhalers. Started some Normosol. (2) Atherosclerotic heart disease of [place] coronary artery without angina pectoris: stable, cont home medical therapy. (3) 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: chronic hip pain on hydrocodone, which was continued. (4) Depression: cont home cymbalta. (5) Hypothyroidism: cont home synthroid. (6) DVT prophylaxis: Lovenox. Full code Dispo-uncertain at this time. Full admission with complication of eye involvement and risk to vision. May need several days of intravenous acyclovir and steroids to prevent vision loss. Adele Tinoco DO [facility] Hospitalist History of Present Illness Chief Complaint: R facial pain x 1 week. Primary Care Provider: Guera Retana MD Mr Shaver is a 75 yo M who presents with a R facial rash and swollen lips and mouth with poor PO intake over the last week because of pain in his mouth and lips and pain in his face. He also reports eye irritation and redness with itching and burning and blurry vision on the right. He was seen in PCP office on 04/12 and given PCN, but this didn't help him so he presented to the ER for pain control today. He has clear zoster and there is eye involvement now. He denies taking the Shingrix that was ordered for him a while back. He denies fevers, chills, nausea, chest pain, SOB or other symptoms outside of facial pain and poor PO tolerance 2/2 lip and mouth swelling and pain. Allergies Allergy/AdvReac Type Severity Reaction Status Date / Time adhesive Allergy Unknown GOODE SKIN Verified 04/14/20 08:38 No Known Drug Allergies Allergy Unknown . Verified 04/14/20 08:38 Home Medications Home Medications Medication Instructions Recorded Confirmed Type albuterol sulfate 90 mcg/actuation 2 puffs INH BID PRN gm 02/20/18 04/14/20 History aerosol inhaler aspirin 81 mg tablet,delayed 81 mg PO QAM tab 02/20/18 04/14/20 History release atorvastatin 80 mg tablet 80 mg PO QAM tab 02/20/18 04/14/20 History budesonide-formoterol HFA 160 2 puffs INH BID 02/20/18 04/14/20 History mcg-4.5 mcg/actuation aerosol inhaler cholecalciferol (vitamin D3) 25 1,000 units PO QAM cap 02/20/18 04/14/20 H istory mcg (1,000 unit) capsule clopidogrel 75 mg tablet 75 mg PO QPM tab 02/20/18 04/14/20 History finasteride 5 mg tablet 5 mg PO QPM tab 02/20/18 04/14/20 History fluticasone propionate 50 2 sprays INTNAS BID gm 02/20/18 04/14/20 History mcg/actuation nasal spray,suspension levothyroxine 50 mcg tablet 50 mcg PO QAM tab 02/20/18 04/14/20 History lisinopril 10 mg tablet 10 mg PO QPM tab 02/20/18 04/14/20 History nitroglycerin 0.4 mg sublingual 0.4 mg SL Q5M PRN 02/20/18 04/14/20 History tablet oxybutynin chloride 10 mg 10 mg PO QPM tab 02/20/18 04/14/20 History tablet,extended release 24 hr sennosides 25 mg tablet 25 mg PO QAM tab 02/20/18 04/14/20 History docusate sodium 100 mg capsule 200 mg PO HS cap 07/07/18 04/14/20 History pantoprazole 40 mg tablet,delayed 40 mg PO DAILY 07/07/18 04/14/20 History release tiotropium bromide 18 mcg capsule 1 cap INH DAILY 07/07/18 04/14/20 History with inhalation device lidocaine 4 % topical patch 1 patch TOP BID 08/25/18 04/14/20 History duloxetine 60 mg capsule,delayed 60 mg PO QAM #30 cap 03/01/20 04/14/20 Rx release gabapentin 300 mg capsule 300 mg PO TID #90 cap 03/01/20 04/14/20 Rx hydrocodone 5 mg-acetaminophen 325 1 tab PO TID PRN #90 tab 03/16/20 04/14/20 Rx mg tablet duloxetine 30 mg capsule,delayed 30 mg PO QAM #30 cap 04/11/20 04/14/20 Rx release Past Med/Surg History Medical History BPH (benign prostatic hyperplasia) Carotid stenosis Cervical radiculopathy Chronic anticoagulation Chronic hip pain after total replacement of right hip joint Chronic right SI joint pain COPD (chronic obstructive pulmonary disease) Depression Diastolic dysfunction DVT (deep venous thrombosis) (01/29/14) Emphysema of lung Exertional shortness of breath Fingertip amputation History of left heart catheterization (LHC) HLD (hyperlipidemia) HTN (hypertension) Hypothyroidism Intercostal neuralgia Left shoulder pain Lumbar post-laminectomy syndrome Lung infiltrate Myofascial pain Neuritis of left ulnar nerve 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 Osteoarthritis of left knee Pacemaker Post-thoracotomy pain syndrome RLS (restless legs syndrome) Spinal cord stimulator status SSS (sick sinus syndrome) Symptomatic bradycardia Surgical History H/O knee surgery History of hip surgery History of total knee arthroplasty Hx of cholecystectomy Status post insertion of spinal cord stimulator Family History Mother Heart disease Social History (Updated 04/14/20 @ 18:52 by Adele Tinoco DO) Smoking Status: Former smoker Tobacco Type: Cigarettes Hx Alcohol Use: No Hx Substance Use: No Preferred Language: Estonian Communication Ability: Effective 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 Normal L eye. ENT: erythematous crusty dermatomal rash extending along the (V2) maxillary branchof the trigeminal nerve on the right side. There is lip and palatal involvement and significant swelling. RESPIRATORY: clear to auscultation bilaterally, no crackles, rales or wheezes, normal respiratory effort CARDIOVASCULAR: regular rate and rhythm, S1 and 2 heard without murmurs, gallops or rubs, no JVD, no peripheral edema GASTROINTESTINAL: soft, nontender, nondistended, no guarding. MUSCULOSKELETAL: strength 5/5 throughout, head is normocephalic and atraumatic SKIN: warm and dry, +rash as above. NEUROLOGIC: deferred extensive cranial testing with infection, aside form this no other gross focal neuro deficits. PSYCHIATRIC: alert cooperative and oriented to person, place and time. Results & Data Results & Data ([facility]) Vital Signs (Past 12 Hours) Vital Signs Temp Pulse Pulse Resp BP BP Pulse Ox 04/14/20 10:26 60 18 141/97 H 94 04/14/20 09:28 63 18 158/91 H 95 04/14/20 07:51 96 04/14/20 07:18 37.5 C 71 18 130/75 97 Laboratory Results Short CBC 04/14/20 Range/Units 09:03 WBC 5.10 (4.8-10.8) K/uL Hgb 14.6 (14.0-18.0) g/dL Hct 43.2 (42-52) % Plt Count 171 (130-400) K/uL BMP 04/14/20 08:18 Sodium 136 Potassium 3.7 Chloride 102 Carbon Dioxide 27 BUN 15 Creatinine 1.19 Glucose 115 H Calcium 10.0 Liver Function 04/14/20 Range/Units 08:18 Total Bilirubin 0.7 (0.2-1) mg/dl AST 14 L (15-37) U/L ALT 22 (12-78) U/L Alkaline Phosphatase 96 (45-117) U/L Albumin 4.1 (3.4-5.0) gm/dl Diagnostic Findings CT facial bones w con HISTORY: Pt c/o facial pain TECHNIQUE: Multiaxial CT images of maxillofacial region were performed and reformatted in the sagittal and coronal plane following the use of 94 cc of intravenous contrast. COMPARISON STUDY: None. FINDINGS: Mild edema both within and surrounding the right submandibular gland. No evidence for an obstructing submandibular duct stone. Heterogeneous left submandibular gland without edema. Mildly enlarged right submandibular and right cervical lymph nodes compared to the left. This is likely reactive. Mild narrowing of the right carotid bulb of approximately 40% due to the calcified plaque. Prevertebral soft tissues and the epiglottis are normal in thickness. Minimal right paratracheal edema is likely reactive to the submandibular gland abnormality. Question of mild soft tissue edema within the upper lip. The airway remains patent. The visualized brain parenchyma and orbits are within normal limits. No facial fractures identified. Paranasal sinuses and mastoid air cells are clear. IMPRESSION: 1. Mild edema both within and surrounding the right submandibular gland suggestive of a sialoadenitis. No evidence for an obstructing submandibular duct stone. 2. Mild right-sided cervical lymphadenopathy which is likely reactive to the submandibular gland abnormality. 3. Questionable mild soft tissue edema within the upper lip.
[2020-04-14] MEDS ORDERED: ONDANSETRON INJ 2 MG/ML 2 ML VIAL IV PRN (12:32)
[2020-04-14] MEDS ORDERED: ACYCLOVIR SOD 800 MG in DEXTROSE 5% 250 ML IV SCH (13:00)
[2020-04-14] MEDS ORDERED: ARTIFICIAL TEARS OPR PRN (15:49)
[2020-04-14] MEDS ORDERED: LIDOCAINE HCL VISCOUS SOLN 2% 15 ML UDC MT PRN (16:00)
[2020-04-14] MEDS ORDERED: HYDROCODONE/ACETAMOPHEN 5/325MG TAB PO PRN ×2 (16:03→20:15)
[2020-04-14] MEDS: ACYCLOVIR SOD 800 MG in DEXTROSE 5% 250 ML IV SCH (16:43)
[2020-04-14] MEDS: methylPREDNISolone 20 MG in SYRINGE 0 ML IV SCH ×2 (16:44→23:39)
[2020-04-14] MEDS: ACETAMINOPHEN 1,000 MG/100 ML VIAL IV SCH ×2 (17:00→23:39)
[2020-04-14] MEDS: NORMOSOL-R 1,000 ML IV SCH (18:40)
[2020-04-14] MEDS ORDERED: KETOROLAC TROMETHAMINE 15 MG/ML VIAL IV ONE (20:14)
[2020-04-14] MEDS: ENOXAPARIN INJ 40 MG/0.4 ML SYR SQ SCH (20:32)
[2020-04-14] MEDS: CLOPIDOGREL BISULFATE 75 MG TAB PO SCH (20:32)
[2020-04-14] MEDS: lisinopril 10 MG TAB PO SCH (20:32)
[2020-04-14] MEDS: GABAPENTIN 300 MG CAP PO SCH (20:40)
[2020-04-14] MEDS: FINASTERIDE 5 MG TAB PO SCH (20:43)
[2020-04-14] MEDS ORDERED: GABAPENTIN 300 MG CAP PO SCH (21:00)
[2020-04-15] MEDS: ACYCLOVIR SOD 800 MG in DEXTROSE 5% 250 ML IV SCH ×3 (00:04→15:42)
[2020-04-15] MEDS: HYDROmorphone INJ 0.5 MG/0.5 ML SYR IV PRN ×3 (00:57→08:42)
[2020-04-15] MEDS: NORMOSOL-R 1,000 ML IV SCH ×2 (05:59→16:50)
[2020-04-15] MEDS: LEVOTHYROXINE SODIUM 50 MCG TABLET PO SCH (06:00)
[2020-04-15 06:13] LABS: Hemoglobin 14.9 g/dL (14.0-18.0); Mean Corpuscular Hemoglobin 31.9 pg (25-34); Mean Corpuscular Hgb Conc 33.9 g/dL (32-36); Mean Corpuscular Volume 94.2 fL (80-100); Mean Platelet Volume 10.6 fL (7.4-10.4); Platelet Count 146 K/uL (130-400); RDW Coefficient of Variation 13.3 % (11.5-14.5); RDW Standard Deviation 45.9 fL (36.4-46.3); Red Blood Count 4.67 M/uL (4.7-6.1); White Blood Count 3.54 K/uL (4.8-10.8)
[2020-04-15 06:32] LABS: BUN Creatinine Ratio 15.6 (10-20); Creatinine Clr Calc Pharmacy 69.7 ml/min; Est GFR (African American) 86.6; Est GFR (Non-African American) 74.7; Magnesium 2.6 mg/dl (1.8-2.4); Potassium 4.5 mmol/L (3.5-5.1)
[2020-04-15] MEDS: DULoxetine HCL 30 MG CAP PO SCH (08:41)
[2020-04-15] MEDS: ACETAMINOPHEN 1,000 MG/100 ML VIAL IV SCH ×2 (08:41→15:41)
[2020-04-15] MEDS: ATORVASTATIN 40 MG TAB PO SCH (08:41)
[2020-04-15] MEDS: methylPREDNISolone 20 MG in SYRINGE 0 ML IV SCH ×2 (08:42→15:39)
[2020-04-15] MEDS: PANTOprazole 40 MG TAB PO SCH (08:42)
[2020-04-15] MEDS: DULoxetine HCL 60 MG CAP PO SCH (08:42)
[2020-04-15] MEDS: ASPIRIN 81 MG ECTAB PO SCH (08:42)
[2020-04-15] MEDS: GABAPENTIN 300 MG CAP PO SCH ×3 (08:42→20:32)
[2020-04-15] MEDS ORDERED: NALOXONE HCL 0.4 MG/1 ML VIAL/CARP IV PRN (11:09)
[2020-04-15] MEDS: HYDROmorphone PCA 30 MG/30 ML IV PRN ×2 (11:57→19:14)
[2020-04-15] MEDS: SODIUM CHLORIDE 0.9% 1000ML 1,000 ML IV SCH (11:58)
--- NOTE | 2020-04-15 18:02 | Hospitalist Progress Note ---
Date of Service April 15, 2020 Assessment & Plan (1) Zoster ophthalmicus: Complicated infection with vision involvement. Intravenous acyclovir and solumedrol. May switch to prednisone after patient better able to tolerate PO. Refresh tears PRN. Cont home gabapentin. Narcotics, lidocaine swish, APAP for comfort. 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 Starting to tolerate some PO today. (2) Atherosclerotic heart disease of [place] coronary artery without angina pectoris: stable, cont home medical therapy. (3) 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: chronic hip pain on hydrocodone, which was continued. (4) Depression: cont home cymbalta. (5) Hypothyroidism: cont home synthroid. (6) DVT prophylaxis: Lovenox. Full code Dispo-uncertain at this time. Full admission with complication of eye involvement and risk to vision. May need several days of intravenous acyclovir and steroids to prevent vision loss. 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 eyelids appear more swollen-->didn't receive any refresh tears overnight pt denies any worsening of vision but more crusting around eye is present rash is improving and crusting over Review of Systems Review of Systems: All systems reviewed & are unremarkable except as noted in Subjective Physical Exam Physical Exam: CONSTITUTIONAL: WNWD, vitals as above, generally well- appearing EYES: pupils are round and equal bilaterally, injected/irritated and red sclera on the R eye, +conjunctivitis. Normal L eye. ENT: erythematous crusty dermatomal rash extending along the (V2) maxillary branch of the trigeminal nerve on the right side. There is lip and palatal involvement and significant swelling. RESPIRATORY: clear to auscultation bilaterally, no crackles, rales or wheezes, normal respiratory effort CARDIOVASCULAR: regular rate and rhythm, S1 and 2 heard without murmurs, gallops or rubs, no JVD, no peripheral edema GASTROINTESTINAL: soft, nontender, nondistended, no guarding. MUSCULOSKELETAL: strength 5/5 throughout, head is normocephalic and atraumatic SKIN: warm and dry, +rash as above. NEUROLOGIC: deferred extensive cranial testing with infection, aside form this no other gross focal neuro deficits. PSYCHIATRIC: alert cooperative and oriented to person, place and time. Results & Data Results & Data ([facility]) Vital Signs (Past 12 Hours) Vital Signs Temp Pulse Resp BP Pulse Ox 04/15/20 16:46 36.8 C 68 16 112/65 90 04/15/20 15:51 36.6 C 61 16 109/68 91 04/15/20 13:58 36.7 C 66 14 153/72 H 92 04/15/20 13:00 36.7 C 62 18 170/66 H 95 04/15/20 12:01 36.6 C 61 12 165/74 H 96 04/15/20 08:40 160/81 H 04/15/20 07:56 36.7 C 60 18 179/84 H 94 Laboratory Results Short CBC 04/15/20 Range/Units 05:48 WBC 3.54 L (4.8-10.8) K/uL Hgb 14.9 (14.0-18.0) g/dL Hct 44.0 (42-52) % Plt Count 146 (130-400) K/uL BMP 04/15/20 05:48 Sodium 137 Potassium 4.5 D Chloride 103 Carbon Dioxide 30 BUN 16 Creatinine 0.99 Glucose 129 H Calcium 9.0 Medications Administered Current Inpatient Medications Hydrocodone Bitart/Acetaminophen (Hydrocodone/Acetamophen 5/325mg Tab) 1 tab PO QID PRN PRN Reason: Pain Stop: 04/28/20 16:02 Albuterol (Albuterol Hfa 8 Gm Inhaler) 2 puffs INH BIDR PRN PRN Reason: Shortness Of Breath Or Wheezin Stop: 05/14/20 18:59 Artificial Tears (Artificial Tears) 2 drops OPR QID [facility] Stop: 05/15/20 18:14 Aspirin (Aspirin 81 Mg Ectab) [facility] [place] Stop: 05/15/20 08:59 Last Admin: 04/15/20 08:42 Dose: 81 mg Documented by: Atorvastatin Calcium (Atorvastatin 40 Mg Tab) 80 mg PO QAM [facility] Stop: 05/15/20 08:59 Last Admin: 04/15/20 08:41 Dose: 80 mg Documented by: Clopidogrel Bisulfate (Clopidogrel Bisulfate 75 Mg Tab) 75 mg PO QPM [facility] Stop: 05/14/20 20:59 Last Admin: 04/14/20 20:32 Dose: 75 mg Documented by: Diphenhydramine HCl (Diphenhydramine Hcl 25 Mg/10 Ml Udc) 12.5 mg PO Q6H PRN PRN Reason: itching Stop: 05/15/20 17:59 Docusate Sodium (Docusate Sodium 100 Mg Cap) 100 mg PO BID [facility] Stop: 05/15/20 20:59 Duloxetine HCl (Duloxetine Hcl 30 Mg Cap) 30 mg PO QAM [facility] Stop: 05/15/20 08:59 Last Admin: 04/15/20 08:41 Dose: 30 mg Documented by: Duloxetine HCl (Duloxetine Hcl 60 Mg Cap) 60 mg PO QAM [facility] Stop: 05/15/20 08:59 Last Admin: 04/15/20 08:42 Dose: 60 mg Documented by: Enoxaparin Sodium (Enoxaparin Inj 40 Mg/0.4 Ml Syr) 40 mg SQ HS [facility] Stop: 05/14/20 20:59 Last Admin: 04/14/20 20:32 Dose: 40 mg Documented by: Finasteride (Finasteride 5 Mg Tab) 5 mg PO QPM [facility] Stop: 05/14/20 20:59 Last Admin: 04/14/20 20:43 Dose: 5 mg Documented by: Gabapentin (Gabapentin 300 Mg Cap) 300 mg PO TID [facility] Stop: 05/14/20 20:59 Last Admin: 04/15/20 12:41 Dose: 300 mg Documented by: Hydromorphone HCl (Hydromorphone Food General Manager 30 Mg/30 Ml) 30 mg IV PRN PRN; Protocol PRN Reason: 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 DRIER 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 Pain Titration Stop: 04/29/20 11:08 Last Admin: 04/15/20 11:57 Dose: 30 mg Documented by: Acyclovir Sodium 800 mg/ (Dextrose) 266 mls @ 250 mls/hr IV Q8H [facility]; Protocol Stop: 04/21/20 01:04 Last Infusion: 04/15/20 16:50 Dose: Infused Documented by: Methylprednisolone 20 mg/ (Syringe) 0.32 mls @ 1.5 mls/min IV Q8H [facility] Stop: 05/14/20 15:59 Last Admin: 04/15/20 15:39 Dose: 1.5 mls/min Documented by: Acetaminophen (Ofirmev) 1,000 mg in 100 mls @ 400 mls/hr IV Q8H [facility] Stop: 04/17/20 15:59 Last Admin: 04/15/20 15:41 Dose: Not Given Documented by: Sodium Chloride (Nss 1000ml) 1,000 mls @ 15 mls/hr IV .Q24H [facility] Stop: 04/29/20 11:09 Last Admin: 04/15/20 11:58 Dose: 15 mls/hr Documented by: Levothyroxine Sodium (Levothyroxine Sodium 50 Mcg Tablet) 50 mcg PO DAILYBB [facility] Stop: 05/15/20 06:29 Last Admin: 04/15/20 06:00 Dose: 50 mcg Documented by: Lidocaine HCl (Lidocaine Hcl Viscous Soln 2% 15 Ml Udc) 15 ml MT TID PRN PRN Reason: severe pain in mouth Stop: 05/14/20 15:59 Last Admin: 04/14/20 16:40 Dose: 15 ml Documented by: Lisinopril (Lisinopril 10 Mg Tab) 10 mg PO QPM [facility] Stop: 05/14/20 20:59 Last Admin: 04/14/20 20:32 Dose: 10 mg Documented by: Naloxone HCl (Naloxone Hcl 0.4 Mg/1 Ml Vial/Carp) 0.1 mg IV Q5M PRN; Protocol PRN Reason: Oversedation/Resp Depression Stop: 04/29/20 11:08 Ondansetron HCl (Ondansetron Inj 2 Mg/Ml 2 Ml Vial) 4 mg IV Q6H PRN PRN Reason: Nausea Stop: 05/14/20 12:31 Pantoprazole Sodium (Pantoprazole 40 Mg Tab) 40 mg PO DAILY [facility] Stop: 05/15/20 08:59 Last Admin: 04/15/20 08:42 Dose: 40 mg Documented by:
[2020-04-15] MEDS ORDERED: diphenhydrAMINE HCl 12.5 MG/5 ML UDC PO PRN (18:20)
[2020-04-15] MEDS ORDERED: diphenhydrAMINE Capsule 25 MG CAP PO PRN (18:20)
[2020-04-15] MEDS: ARTIFICIAL TEARS OPR SCH ×2 (18:36→20:31)
[2020-04-15] MEDS: DOCUSATE SODIUM 100 MG CAP PO SCH (20:31)
[2020-04-15] MEDS: ENOXAPARIN INJ 40 MG/0.4 ML SYR SQ SCH (20:31)
[2020-04-15] MEDS: CLOPIDOGREL BISULFATE 75 MG TAB PO SCH (20:32)
[2020-04-15] MEDS: FINASTERIDE 5 MG TAB PO SCH (20:32)
[2020-04-15] MEDS: lisinopril 10 MG TAB PO SCH (20:32)
[2020-04-16] MEDS: ACETAMINOPHEN 1,000 MG/100 ML VIAL IV SCH ×4 (00:46→23:40)
[2020-04-16] MEDS: ACYCLOVIR SOD 800 MG in DEXTROSE 5% 250 ML IV SCH ×3 (00:46→16:49)
[2020-04-16] MEDS: methylPREDNISolone 20 MG in SYRINGE 0 ML IV SCH ×4 (00:46→23:39)
[2020-04-16] MEDS: lisinopril 20 MG TAB PO SCH (05:30)
[2020-04-16] MEDS: LEVOTHYROXINE SODIUM 50 MCG TABLET PO SCH (05:31)
--- NOTE | 2020-04-16 07:26 | CT Scan Report ---
CT OF THE HEAD WITHOUT CONTRAST CLINICAL HISTORY: Headache. Hypertension. COMPARISON STUDY: No previous studies for comparison. CT DOSE: 614.27 mGy.cm TECHNIQUE: Helical axial images of the head were obtained without IV contrast. Automated exposure con trol was utilized for the study. A dose lowering technique was utilized adhering to the principles o f ALARA. FINDINGS: No acute intracranial hemorrhage, midline shift or mass effect is present. The ventricular system is unremarkable. White matter hypodensity suggests small vessel disease. The basal cisterns ar e patent. No extra-axial collections are present. There are no findings to suggest acute dural sinus thrombosis or acute territorial infarct. No significant calvarial abnormalities are present. Visualiz ed portions of the sinuses and mastoid air cells are clear. Right facial subcutaneous infiltration an d skin thickening is noted. This has slightly increased since exam of April 14, 2020. IMPRESSION: No acute intracranial findings. ACT 112: Negative or not required by law. Electronically signed by: Boyd Chandler M.D. 04/16/2020 7:24 AM
[2020-04-16] MEDS: ATORVASTATIN 40 MG TAB PO SCH (08:18)
[2020-04-16] MEDS: DULoxetine HCL 30 MG CAP PO SCH (08:18)
[2020-04-16] MEDS: ARTIFICIAL TEARS OPR SCH ×4 (08:19→20:47)
[2020-04-16] MEDS: DULoxetine HCL 60 MG CAP PO SCH (08:19)
[2020-04-16] MEDS: GABAPENTIN 300 MG CAP PO SCH (08:19)
[2020-04-16] MEDS: ASPIRIN 81 MG ECTAB PO SCH (08:19)
[2020-04-16] MEDS: DOCUSATE SODIUM 100 MG CAP PO SCH ×2 (08:19→20:50)
[2020-04-16] MEDS: PANTOprazole 40 MG TAB PO SCH (08:19)
[2020-04-16] MEDS ORDERED: hydrALAZINE HCL 20 MG/ML VIAL IV ONE (08:26)
[2020-04-16] MEDS ORDERED: GABAPENTIN 300 MG CAP PO ONE (09:00)
[2020-04-16] MEDS ORDERED: hydrALAZINE HCL 20 MG/ML VIAL IV STA (09:20)
[2020-04-16] MEDS: ALBUTEROL HFA 8 GM INHALER INH PRN (09:28)
[2020-04-16] MEDS ORDERED: ALBUTEROL 0.083% NEBU SOLN 3 ML VIAL NEB PRN (10:18)
[2020-04-16] MEDS ORDERED: ALBUTEROL 0.083% NEBU SOLN 3 ML VIAL NEB STA (10:18)
[2020-04-16] MEDS ORDERED: BENZOCAINE 20% PO PRN (11:15)
[2020-04-16] MEDS: SODIUM CHLORIDE 0.9% 1000ML 1,000 ML IV SCH (11:29)
[2020-04-16] MEDS: GABAPENTIN 600 MG TAB PO SCH ×2 (12:53→20:50)
--- NOTE | 2020-04-16 17:27 | Hospitalist Progress Note ---
Date of Service April 16, 2020 Assessment & Plan (1) Zoster ophthalmicus: Complicated infection with vision involvement. Cont intravenous acyclovir and systemic solumedrol. May switch to prednisone after patient better able to tolerate PO. Refresh tears PRN. Cont home gabapentin and increased this to 600mg TID to help with the nerve pain. Narcotics, lidocaine swish, benzocaine lollipop, APAP for comfort. Starting to tolerate some PO today. (2) HTN (hypertension): Elevated overnight, thought 2/2 pain as patient was not aware he could continue to push his Dilaudid REGISTERED MEDICAL ASSISTANT button. Increased gabapentin and added benzoiocaine lolli today. Lisinopril was doubled. Switched to low salt diet. This is likley more situational related to severe pain in addition to steroid induced HTN. With persistent vision issues need to keep the solumedrol going for now. He was also not only not pushing pumps of dilaudid, but he was also off his hydrocodone while on the REGISTERED MEDICAL ASSISTANT which may have created a relative opioid withdrawal situation as he takes this chronically at home for severe hip pain. (3) Atherosclerotic heart disease of [place] coronary artery without angina pectoris: stable, cont home medical therapy. (4) 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: chronic hip pain on hydrocodone, which was continued. (5) Depression: cont home cymbalta. (6) Hypothyroidism: cont home synthroid. (7) DVT prophylaxis: Lovenox. Full code Dispo-uncertain at this time. Full admission with complication of eye involvement and risk to vision. May need several days of intravenous acyclovir and steroids to prevent vision loss. Will likely be here through the weekend. was updated by phone. Adele Tinoco DO [facility] Hospitalist Admission and Anticipated Discharge Date Admission Date: April 14, 2020 Subjective Pt feels the burning and throbbing is now on his right forehead and frontal scalp and he feels throbbing in his throat and in his right ear. Still able to swallow and eat food. Dilaudid REGISTERED MEDICAL ASSISTANT trigger was on his bed but he thought it was discontinued by me--so he hasn't been pushing this. May have contributed to hypertension overnight. Hydralazine 5mg IV then 10mg IV given this am. Lisinopril increased to 20mg daily. Pt reports no worsening vision but still blurry. Reports Refresh tears are helping somewhat. Able to see words on a paper with both glasses on. Spoke with by phone and updated her. Review of Systems Review of Systems: All systems reviewed & are unremarkable except as noted in Subjective Physical Exam Physical Exam: CONSTITUTIONAL: WNWD, vitals as above, generally well- appearing EYES: pupils are round and equal bilaterally, injected/irritated and red sclera on the R eye, +conjunctivitis. External abnormalities and rash with swelling and crusting all appear to be improving. Normal L eye. ENT: erythematous crusty dermatomal rash extending along the (V2) maxillary branch of the trigeminal nerve on the right side. Some involvement of the forehead now on the right, but skin has cleared up with respect to new blistering and lip swelling/crusting is getting better. RESPIRATORY: clear to auscultation bilaterally, no crackles, rales or wheezes, normal respiratory effort CARDIOVASCULAR: regular rate and rhythm, S1 and 2 heard without murmurs, gallops or rubs, no JVD, no peripheral edema GASTROINTESTINAL: soft, nontender, nondistended, no guarding. MUSCULOSKELETAL: strength 5/5 throughout, head is normocephalic and atraumatic SKIN: warm and dry, +rash as above. NEUROLOGIC: deferred extensive cranial testing with infection but has no gross deficits. PSYCHIATRIC: alert cooperative and oriented to person, place and time. Results & Data Results & Data ([facility]) Vital Signs (Past 12 Hours) Vital Signs Temp Pulse Resp BP BP Pulse Ox 04/16/20 15:07 36.8 C 67 17 163/78 H 96 04/16/20 10:52 78 20 99 04/16/20 10:17 168/79 H 04/16/20 09:30 78 20 92 04/16/20 09:16 175/76 H 04/16/20 08:30 185/85 H 04/16/20 08:02 171/97 H 04/16/20 07:33 36.4 C L 60 18 214/84 H 97 Medications Administered Current Inpatient Medications Hydrocodone Bitart/Acetaminophen (Hydrocodone/Acetamophen 5/325mg Tab) 1 tab PO QID PRN PRN Reason: Pain Stop: 04/28/20 16:02 Albuterol (Albuterol Hfa 8 Gm Inhaler) 2 puffs INH BIDR PRN PRN Reason: Shortness Of Breath Or Wheezin Stop: 05/14/20 18:59 Last Admin: 04/16/20 09:28 Dose: 2 puffs Documented by: Albuterol (Albuterol 0.083% Nebu Soln 3 Ml Vial) 2.5 mg NEB Q6R PRN PRN Reason: SOB/wheezing Stop: 05/16/20 10:17 Artificial Tears (Artificial Tears) 2 drops OPR QID [facility] Stop: 05/15/20 18:29 Last Admin: 04/16/20 16:50 Dose: 2 drops Documented by: Aspirin (Aspirin 81 Mg Ectab) [facility] [place] [place]: 05/15/20 08:59 Last Admin: 04/16/20 08:19 Dose: 81 mg Documented by: Atorvastatin Calcium (Atorvastatin 40 Mg Tab) 80 mg PO QAM [facility] Stop: 05/15/20 08:59 Last Admin: 04/16/20 08:18 Dose: 80 mg Documented by: Clopidogrel Bisulfate (Clopidogrel Bisulfate 75 Mg Tab) 75 mg PO QPM [facility] Stop: 05/14/20 20:59 Last Admin: 04/15/20 20:32 Dose: 75 mg Documented by: Diphenhydramine HCl (Diphenhydramine Hcl 12.5 Mg/5 Ml Udc) 12.5 mg PO Q6H PRN PRN Reason: itching Stop: 05/15/20 18:19 Docusate Sodium (Docusate Sodium 100 Mg Cap) 100 mg PO BID [facility] Stop: 05/15/20 20:59 Last Admin: 04/16/20 08:19 Dose: 100 mg Documented by: Duloxetine HCl (Duloxetine Hcl 30 Mg Cap) [facility] [place] Stop: 05/15/20 08:59 Last Admin: 04/16/20 08:18 Dose: 30 mg Documented by: Duloxetine HCl (Duloxetine Hcl 60 Mg Cap) [facility] [place] Stop: 05/15/20 08:59 Last Admin: 04/16/20 08:19 Dose: 60 mg Documented by: Enoxaparin Sodium (Enoxaparin Inj 40 Mg/0.4 Ml Syr) 40 mg SQ HS [facility] Stop: 05/14/20 20:59 Last Admin: 04/15/20 20:31 Dose: 40 mg Documented by: Finasteride (Finasteride 5 Mg Tab) 5 mg PO QPM [facility] Stop: 05/14/20 20:59 Last Admin: 04/15/20 20:32 Dose: 5 mg Documented by: Gabapentin (Gabapentin 600 Mg Tab) 600 mg PO TID [facility] Stop: 05/16/20 13:59 Last Admin: 04/16/20 12:53 Dose: 600 mg Documented by: Hydromorphone HCl (Hydromorphone Washroom Attendant 30 Mg/30 Ml) 30 mg IV PRN PRN; Protocol PRN Reason: REGISTERED MEDICAL ASSISTANT Pain Titration Stop: 04/29/20 11:08 Last Admin: 04/15/20 19:14 Dose: 30 mg Documented by: Acyclovir Sodium 800 mg/ (Dextrose) 266 mls @ 250 mls/hr IV Q8H [facility]; Protocol Stop: 04/21/20 01:04 Last Admin: 04/16/20 16:49 Dose: 250 mls/hr Documented by: Methylprednisolone 20 mg/ (Syringe) 0.32 mls @ 1.5 mls/min IV Q8H [facility] Stop: 05/14/20 15:59 Last Admin: 04/16/20 16:43 Dose: 1.5 mls/min Documented by: Acetaminophen (Ofirmev) 1,000 mg in 100 mls @ 400 mls/hr IV Q8H [facility] Stop: 04/17/20 15:59 Last Admin: 04/16/20 16:42 Dose: 400 mls/hr Documented by: Sodium Chloride (Nss 1000ml) 1,000 mls @ 15 mls/hr IV .Q24H [facility] Stop: 04/29/20 11:09 Last Admin: 04/16/20 11:29 Dose: 15 mls/hr Documented by: Levothyroxine Sodium (Levothyroxine Sodium 50 Mcg Tablet) 50 mcg PO DAILYBB [facility] Stop: 05/15/20 06:29 Last Admin: 04/16/20 05:31 Dose: 50 mcg Documented by: Lidocaine HCl (Lidocaine Hcl Viscous Soln 2% 15 Ml Udc) 15 ml MT TID PRN PRN Reason: severe pain in mouth Stop: 05/14/20 15:59 Last Admin: 04/14/20 16:40 Dose: 15 ml Documented by: Lisinopril (Lisinopril 20 Mg Tab) 20 mg PO DAILY [facility] Stop: 05/16/20 04:44 Last Admin: 04/16/20 05:30 Dose: 20 mg Documented by: Naloxone HCl (Naloxone Hcl 0.4 Mg/1 Ml Vial/Carp) 0.1 mg IV Q5M PRN; Protocol PRN Reason: Oversedation/Resp Depression Stop: 04/29/20 11:08 Lollicaine ( Benzocaine 20%) - Patient's Own Med 1 ea PO DAILY PRN; Protocol PRN Reason: MOUTH PAIN Stop: 05/16/20 11:14 Last Admin: 04/16/20 11:29 Dose: 1 ea Documented by: Ondansetron HCl (Ondansetron Inj 2 Mg/Ml 2 Ml Vial) 4 mg IV Q6H PRN PRN Reason: Nausea Stop: 05/14/20 12:31 Pantoprazole Sodium (Pantoprazole 40 Mg Tab) 40 mg PO DAILY [facility] Stop: 05/15/20 08:59 Last Admin: 04/16/20 08:19 Dose: 40 mg Documented by:
[2020-04-16] MEDS: FINASTERIDE 5 MG TAB PO SCH (20:49)
[2020-04-16] MEDS: CLOPIDOGREL BISULFATE 75 MG TAB PO SCH (20:49)
[2020-04-16] MEDS: ENOXAPARIN INJ 40 MG/0.4 ML SYR SQ SCH (20:50)
[2020-04-17] MEDS: ACYCLOVIR SOD 800 MG in DEXTROSE 5% 250 ML IV SCH ×4 (00:17→23:40)
[2020-04-17] MEDS: LEVOTHYROXINE SODIUM 50 MCG TABLET PO SCH (05:43)
[2020-04-17] MEDS: ACETAMINOPHEN 1,000 MG/100 ML VIAL IV SCH (07:19)
[2020-04-17] MEDS: methylPREDNISolone 20 MG in SYRINGE 0 ML IV SCH (07:21)
[2020-04-17 07:55] LABS: Creatinine Clr Calc Pharmacy 72.7 ml/min; Est GFR (Non-African American) 78.5
[2020-04-17] MEDS: PANTOprazole 40 MG TAB PO SCH (08:36)
[2020-04-17] MEDS: DULoxetine HCL 30 MG CAP PO SCH (08:36)
[2020-04-17] MEDS: lisinopril 20 MG TAB PO SCH (08:36)
[2020-04-17] MEDS: GABAPENTIN 600 MG TAB PO SCH ×3 (08:36→20:25)
[2020-04-17] MEDS: DULoxetine HCL 60 MG CAP PO SCH (08:37)
[2020-04-17] MEDS: ATORVASTATIN 40 MG TAB PO SCH (08:37)
[2020-04-17] MEDS: ASPIRIN 81 MG ECTAB PO SCH (08:37)
[2020-04-17] MEDS: ARTIFICIAL TEARS OPR SCH ×4 (08:37→20:20)
[2020-04-17] MEDS: DOCUSATE SODIUM 100 MG CAP PO SCH ×2 (08:37→20:25)
[2020-04-17] MEDS: predniSONE 20 MG TAB PO SCH (09:28)
[2020-04-17] MEDS: SODIUM CHLORIDE 0.9% 1000ML 1,000 ML IV SCH (11:36)
--- NOTE | 2020-04-17 16:42 | Hospitalist Progress Note ---
Date of Service April 17, 2020 Assessment & Plan (1) Zoster ophthalmicus: Complicated infection with vision involvement. Cont intravenous acyclovir and systemic steroids. Changed solumedrol to prednisone 40mg daily to help with hypertension. Refresh tears PRN. Cont gabapentin 600 TID, dilaudid RESEARCH AND DEVELOPMENT CHEMIST, lidocaine swish, benzocaine lollipop, APAP for comfort. tolerating diet. Plan to de-escalate further tomorrow if still improving at this rate. (2) HTN (hypertension): Improving since changing from intravenous to oral steroids. Cont to wean steroids to help control this. Cont increased lisinopril for now. (3) Atherosclerotic heart disease of [place] coronary artery without angina pectoris: stable, cont home medical therapy. (4) 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: chronic hip pain on hydrocodone, which was continued. (5) Depression: cont home cymbalta. (6) Hypothyroidism: cont home synthroid. (7) DVT prophylaxis: Lovenox. Full code Dispo-poss home in next 1-2 days. Would request nursing start to get him up to chair/get him out of the bed. Adele Tinoco DO [facility] Hospitalist Admission and Anticipated Discharge Date Admission Date: April 14, 2020 Subjective pt feeling better vision is stable/improved pain still present to the point he still feels he needs the RESEARCH AND DEVELOPMENT CHEMIST he is better on the increased dose of gabapentin eating and tolerating current diet encouraged not to pick at his scab on face Review of Systems Review of Systems: All systems reviewed & are unremarkable except as noted in Subjective Physical Exam Physical Exam: CONSTITUTIONAL: WNWD, vitals as above, generally well- appearing EYES: pupils are round and equal bilaterally, injected/irritated and red sclera on the R eye, +conjunctivitis. External abnormalities and rash with swelling and crusting all appear to be improving. Normal L eye. ENT: most of rash has resolved except slight by the hairline on the right forehead. Some prominant crusting on the R lateral nasolabial fold. Mouth and lips are less swollen and there is no more palatal involvement present. RESPIRATORY: clear to auscultation bilaterally, no crackles, rales or wheezes, normal respiratory effort CARDIOVASCULAR: regular rate and rhythm, S1 and 2 heard without murmurs, gallops or rubs, no JVD, no peripheral edema GASTROINTESTINAL: soft, nontender, nondistended, no guarding. MUSCULOSKELETAL: strength 5/5 throughout, head is normocephalic and atraumatic SKIN: warm and dry, +rash as above. NEUROLOGIC: deferred extensive cranial testing with infection but has no gross deficits. PSYCHIATRIC: alert cooperative and oriented to person, place and time. Results & Data Results & Data ([facility]) Vital Signs (Past 12 Hours) Vital Signs Temp Pulse Pulse Resp BP Pulse Ox 04/17/20 11:50 69 16 156/72 H 94 04/17/20 11:38 61 157/79 H 04/17/20 07:32 36.8 C 57 L 18 172/76 H 97 Laboratory Results BMP 04/17/20 06:59 Creatinine 0.95 Medications Administered Current Inpatient Medications Hydrocodone Bitart/Acetaminophen (Hydrocodone/Acetamophen 5/325mg Tab) 1 tab PO QID PRN PRN Reason: Pain Stop: 04/28/20 16:02 Albuterol (Albuterol Hfa 8 Gm Inhaler) 2 puffs INH BIDR PRN PRN Reason: Shortness Of Breath Or Wheezin Stop: 05/14/20 18:59 Last Admin: 04/16/20 09:28 Dose: 2 puffs Documented by: Albuterol (Albuterol 0.083% Nebu Soln 3 Ml Vial) 2.5 mg NEB Q6R PRN PRN Reason: SOB/wheezing Stop: 05/16/20 10:17 Artificial Tears (Artificial Tears) 2 drops OPR QID [facility] Stop: 05/15/20 18:29 Last Admin: 04/17/20 13:24 Dose: 2 drops Documented by: Aspirin (Aspirin 81 Mg Ectab) 81 mg PO QAM [facility] Stop: 05/15/20 08:59 Last Admin: 04/17/20 08:37 Dose: 81 mg Documented by: Atorvastatin Calcium (Atorvastatin 40 Mg Tab) 80 mg PO QAM [facility] Stop: 05/15/20 08:59 Last Admin: 04/17/20 08:37 Dose: 80 mg Documented by: Clopidogrel Bisulfate (Clopidogrel Bisulfate 75 Mg Tab) 75 mg PO QPM [facility] Stop: 05/14/20 20:59 Last Admin: 04/16/20 20:49 Dose: 75 mg Documented by: Diphenhydramine HCl (Diphenhydramine Hcl 12.5 Mg/5 Ml Udc) 12.5 mg PO Q6H PRN PRN Reason: itching Stop: 05/15/20 18:19 Docusate Sodium (Docusate Sodium 100 Mg Cap) 100 mg PO BID [facility] Stop: 05/15/20 20:59 Last Admin: 04/17/20 08:37 Dose: 100 mg Documented by: Duloxetine HCl (Duloxetine Hcl 30 Mg Cap) 30 mg PO QAM [facility] Stop: 05/15/20 08:59 Last Admin: 04/17/20 08:36 Dose: 30 mg Documented by: Duloxetine HCl (Duloxetine Hcl 60 Mg Cap) 60 mg PO QAM [facility] Stop: 05/15/20 08:59 Last Admin: 04/17/20 08:37 Dose: 60 mg Documented by: Enoxaparin Sodium (Enoxaparin Inj 40 Mg/0.4 Ml Syr) 40 mg SQ HS [facility] Stop: 05/14/20 20:59 Last Admin: 04/16/20 20:50 Dose: 40 mg Documented by: Finasteride (Finasteride 5 Mg Tab) 5 mg PO QPM [facility] Stop: 05/14/20 20:59 Last Admin: 04/16/20 20:49 Dose: 5 mg Documented by: Gabapentin (Gabapentin 600 Mg Tab) 600 mg PO TID [facility] Stop: 05/16/20 13:59 Last Admin: 04/17/20 13:24 Dose: 600 mg Documented by: Hydromorphone HCl (Hydromorphone Circulation Worker 30 Mg/30 Ml) 30 mg IV PRN PRN; Protocol PRN Reason: RESEARCH AND DEVELOPMENT CHEMIST Pain Titration Stop: 04/29/20 11:08 Last Admin: 04/15/20 19:14 Dose: 30 mg Documented by: Acyclovir Sodium 800 mg/ (Dextrose) 266 mls @ 250 mls/hr IV Q8H [facility]; Protocol Stop: 04/21/20 01:04 Last Infusion: 04/17/20 08:33 Dose: Infused Documented by: Sodium Chloride (Nss 1000ml) 1,000 mls @ 15 mls/hr IV .Q24H [facility] Stop: 04/29/20 11:09 Last Admin: 04/17/20 11:36 Dose: 15 mls/hr Documented by: Levothyroxine Sodium (Levothyroxine Sodium 50 Mcg Tablet) 50 mcg PO DAILYBB [facility] Stop: 05/15/20 06:29 Last Admin: 04/17/20 05:43 Dose: 50 mcg Documented by: Lidocaine HCl (Lidocaine Hcl Viscous Soln 2% 15 Ml Udc) 15 ml MT TID PRN PRN Reason: severe pain in mouth Stop: 05/14/20 15:59 Last Admin: 04/14/20 16:40 Dose: 15 ml Documented by: Lisinopril (Lisinopril 20 Mg Tab) 20 mg PO DAILY [facility] Stop: 05/16/20 04:44 Last Admin: 04/17/20 08:36 Dose: 20 mg Documented by: Naloxone HCl (Naloxone Hcl 0.4 Mg/1 Ml Vial/Carp) 0.1 mg IV Q5M PRN; Protocol PRN Reason: Oversedation/Resp Depression Stop: 04/29/20 11:08 Lollicaine ( Benzocaine 20%) - Patient's Own Med 1 ea PO DAILY PRN; Protocol PRN Reason: MOUTH PAIN Stop: 05/16/20 11:14 Last Admin: 04/16/20 11:29 Dose: 1 ea Documented by: Ondansetron HCl (Ondansetron Inj 2 Mg/Ml 2 Ml Vial) 4 mg IV Q6H PRN PRN Reason: Nausea Stop: 05/14/20 12:31 Pantoprazole Sodium (Pantoprazole 40 Mg Tab) 40 mg PO DAILY [facility] Stop: 05/15/20 08:59 Last Admin: 04/17/20 08:36 Dose: 40 mg Documented by: Prednisone (Prednisone 20 Mg Tab) 40 mg PO DAILY [facility] Stop: 05/17/20 09:14 Last Admin: 04/17/20 09:28 Dose: 40 mg Documented by:
[2020-04-17] MEDS: FINASTERIDE 5 MG TAB PO SCH (20:25)
[2020-04-17] MEDS: CLOPIDOGREL BISULFATE 75 MG TAB PO SCH (20:25)
[2020-04-17] MEDS: ENOXAPARIN INJ 40 MG/0.4 ML SYR SQ SCH (20:26)
--- NOTE | 2020-04-18 00:13 | Communication Note ---
Date of Service: April 18, 2020 Notified by RN of bradypneic episodes. Respiratory rate down to 9 during deep sleep as per RN. Patient arousable with some confusion on waking up however as per RN. AP Episodic bradypnea Possible opioid toxicity with ongoing Dilaudid SUPERVISOR COLOR MAKING pump Hold Dilaudid SUPERVISOR COLOR MAKING pump for now. Dilaudid as needed dosing (nurse administered medication), resume home Vicodin as needed Rx. Will relay to AM provider.
[2020-04-18] MEDS ORDERED: HYDROmorphone INJ 0.5 MG/0.5 ML SYR IV PRN (00:14)
[2020-04-18] MEDS ORDERED: HYDROCODONE/ACETAMOPHEN 5/325MG TAB PO PRN (00:17)
[2020-04-18] MEDS ORDERED: lisinopril 10 MG TAB PO SCH (00:30)
[2020-04-18 01:36] LABS: Calcium 8.7 mg/dl (8.5-10.1); Creatinine Clr Calc Pharmacy 78.4 ml/min; Est GFR (African American) 98.1; Est GFR (Non-African American) 84.6; Magnesium 2.4 mg/dl (1.8-2.4)
[2020-04-18 02:19] LABS: Basophils # (auto) 0.01 K/uL (0-0.2); Basophils % (auto) 0.1 %; Hematocrit (blood only) 39.3 % (42-52); Hemoglobin 13.1 g/dL (14.0-18.0); Immature Granulocytes # (auto) 0.02 K/uL (0.00-0.02); Immature Granulocytes % (auto) 0.3 %; Lymphocytes # (auto) 1.76 K/uL (1.2-3.4); Lymphocytes % (auto) 24.5 %; Mean Corpuscular Hemoglobin 32.2 pg (25-34); Mean Corpuscular Hgb Conc 33.3 g/dL (32-36); Mean Corpuscular Volume 96.6 fL (80-100); Mean Platelet Volume 10.5 fL (7.4-10.4); Monocytes # (auto) 0.99 K/uL (0.11-0.59); Monocytes % (auto) 13.8 %; Neutrophils # (auto) 4.39 K/uL (1.4-6.5); Neutrophils % (auto) 61.3 %; Platelet Count 200 K/uL (130-400); RDW Coefficient of Variation 13.1 % (11.5-14.5); RDW Standard Deviation 45.7 fL (36.4-46.3); Red Blood Count 4.07 M/uL (4.7-6.1); White Blood Count 7.17 K/uL (4.8-10.8)
[2020-04-18] MEDS: LEVOTHYROXINE SODIUM 50 MCG TABLET PO SCH (05:28)
[2020-04-18] MEDS: ARTIFICIAL TEARS OPR SCH ×2 (08:48→12:13)
[2020-04-18] MEDS: ACYCLOVIR SOD 800 MG in DEXTROSE 5% 250 ML IV SCH (08:48)
[2020-04-18] MEDS: ASPIRIN 81 MG ECTAB PO SCH (08:48)
[2020-04-18] MEDS: DULoxetine HCL 60 MG CAP PO SCH (08:48)
[2020-04-18] MEDS: ATORVASTATIN 40 MG TAB PO SCH (08:49)
[2020-04-18] MEDS: DOCUSATE SODIUM 100 MG CAP PO SCH (08:49)
[2020-04-18] MEDS: predniSONE 20 MG TAB PO SCH (08:49)
[2020-04-18] MEDS: GABAPENTIN 600 MG TAB PO SCH ×2 (08:49→14:25)
[2020-04-18] MEDS: PANTOprazole 40 MG TAB PO SCH (08:50)
[2020-04-18] MEDS: DULoxetine HCL 30 MG CAP PO SCH (08:50)
[2020-04-18] MEDS ORDERED: BENZOCAINE 20% (ORAJEL) 11.9 GM TUBE MT ONE (11:00)
[2020-04-18] MEDS: ALBUTEROL HFA 8 GM INHALER INH PRN (12:35)
--- NOTE | 2020-04-18 13:25 | Discharge Summary ---
Date of Service April 18, 2020 Admission HPI Per Admitting Provider Mr Shaver is a 75 yo M who presents with a R facial rash and swollen lips and mouth with poor PO intake over the last week because of pain in his mouth and lips and pain in his face. He also reports eye irritation and redness with itching and burning and blurry vision on the right. He was seen in PCP office on 04/12 and given PCN, but this didn't help him so he presented to the ER for pain control today. He has clear zoster and there is eye involvement now. He denies taking the Shingrix that was ordered for him a while back. He denies fevers, chills, nausea, chest pain, SOB or other symptoms outside of facial pain and poor PO tolerance 2/2 lip and mouth swelling and pain. Admission Exam Per Admitting Provider CONSTITUTIONAL: WNWD, vitals as above, generally well-appearing EYES: EOMI bilaterally, pupils are round and equal bilaterally, injected/irritated and re sclera on the R eye. Normal L eye. ENT: erythematous crusty dermatomal rash extending along the (V2) maxillary branchof the trigeminal nerve on the right side. There is lip and palatal involvement and significant swelling. RESPIRATORY: clear to auscultation bilaterally, no crackles, rales or wheezes, normal respiratory effort CARDIOVASCULAR: regular rate and rhythm, S1 and 2 heard without murmurs, gallops or rubs, no JVD, no peripheral edema GASTROINTESTINAL: soft, nontender, nondistended, no guarding. MUSCULOSKELETAL: strength 5/5 throughout, head is normocephalic and atraumatic SKIN: warm and dry, +rash as above. NEUROLOGIC: deferred extensive cranial testing with infection, aside form this no other gross focal neuro deficits. PSYCHIATRIC: alert cooperative and oriented to person, place and time. Principal Diagnosis Zoster ophthalmicus Chronic pain on long-term narcotics Hypertension Discharge Exam CONSTITUTIONAL: WNWD, vitals as above, generally well-appearing EYES: pupils are round and equal bilaterally, eye redness has improved. External abnormalities and rash with swelling and crusting all appear to be improving. Normal L eye. ENT: most of rash on R midface and forehead has resolved. Some prominent crusting on the R lateral nasolabial fold. Mouth and lips are less swollen and there is no more palatal involvement present. Normal oropharynx, poor/missing dentition. RESPIRATORY: clear to auscultation bilaterally, no crackles, rales or wheezes, normal respiratory effort CARDIOVASCULAR: regular rate and rhythm, S1 and 2 heard without murmurs, gallops or rubs, no JVD, no peripheral edema GASTROINTESTINAL: soft, nontender, nondistended, no guarding. MUSCULOSKELETAL: strength 5/5 throughout, head is normocephalic and atraumatic SKIN: warm and dry, as above. NEUROLOGIC: no gross focal deficits. PSYCHIATRIC: alert cooperative and oriented to person, place and time. Discharge Data Allergies Allergy/AdvReac Type Severity Reaction Status Date / Time adhesive Allergy Unknown GOODE SKIN Verified 04/14/20 08:38 No Known Drug Allergies Allergy Unknown . Verified 04/14/20 08:38 Consultations 04/14/20 10:19 ED Decision to Admit Stat 04/14/20 12:32 Consult Case Management - Discharge Planning Routine Ordered Studies 04/14/20 07:51 CT facial bones w con Stat 04/16/20 04:34 CT head/brain wo con Urgent Hospital Course (1) Zoster ophthalmicus: The patient is a 75-year-old man who presented with zoster ophthalmicus. He reported a history of severe pain in the right side of his face including his right eye for approximately 1 week prior to arrival. His lips were swollen and his mouth was swollen with poor p.o. intake because of severe pain in the right side of the mouth including the palate. He had significant redness itching and burning with blurry vision on the right eye. He was seen in primary care office on 04/12 and given penicillin but this did not help so he presented to the ER for pain control. He denied taking this Shingrix vaccine that was ordered for him previously. He was admitted to the hospital service and placed immediately on IV acyclovir and IV Solu-Medrol 20 mg p.o. IV every 8 for several days with his eye involvement. He gradually improved but his vision stayed blurry and on exam appeared to have keratitis. No slit-lamp examination could be performed and no telephone lineman is on staff at this hospital. His vision did not worsen however. Steroids were continued and switched to prednisone as he became able to swallow with the improvement in swelling and zoster rash. At time of discharge she was able to swallow completely. The case was discussed with a local telephone lineman, Atif Rodriguez DO who recommended continuing antiviral therapy with Valtrex for another 7 to 10 days with close ophthalmology follow- up. An appointment was made for him for later that week and the patient verbalized intent to comply with the appointment. At time of discharge he was hemodynamically stable and afebrile and tolerating p.o. He was afebrile and oxygenating well on room air and pain was well controlled with his home hydrocodone. He was sent home in stable condition with close primary care follow-up recommended. (2) HTN (hypertension): (3) 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: Total Time Total Time Spent Total Time Spent (In Minutes): 60 Total Time Includes: Examination of the Patient, Discharge Planning, Medication Reconciliation, Communication With Other Providers and Other (set up ophthalmology followup and PCP fu) Discharge Plan Discharge Items Patient Disposition: Home - Self-Care Reason For Visit: FACIAL ZOSTER INFECTION Discharge Diagnosis: Zoster ophthalmicus Chronic pain on long-term narcotics Hypertension Activity: Resume your previous activity Non-emergency contact: Primary Care Provider Call non-emergency contact if: you have any medication questions, your symptoms worsen and your pain is not controlled Follow-up/Referrals: Guera Jay MD [Primary Care Provider] - 04/22/20 12:00 pm (Date & Time 04/22/2020 12:00 PM Provider Guera Retana MD Department Internal Medicine [facility] ) Diet: Low Sodium (2gm) Addtl Attending Provider Instructions: Please take all medications as instructed on discharge list below. You do not need any further steroids, so these have been stopped. Please continue taking the gabapentin at the 600mg three times daily dose while you are still having facial pain. Also use the hydrocodone as needed for extra breakthrough pain. Tylenol is also fine to use and you can schedule it three times daily (1000mg) Please continue to take the antiviral medication given until you are seen by the eye doctor on of this week. He may shorten or extend this course of treatment depending on the eye exam. It is vital that you follow up with him, and if you are unable to make it for any reason, please reschedule. This shingles infection can damage your eyesight permanently if not treated and followed closely. Atif Rodriguez DO [facility] [address], [address] [place] [address] 04-21-2020 @ 1045a It is recommended that you follow-up with your primary care physician in 1-2 weeks to ensure you are doing well after discharge. Your blood pressure was elevated while in the hospital, and it will be important to recheck this. It was a pleasure taking care of you! Please call if you have any questions or problems. You can reach a [facility] hospitalist on duty at [facility] 24 hours a day by calling [phone]. Take care of yourself. Adele Tinoco, DO [facility] Pending Studies at Discharge: No Stand-Alone Forms: My [facility] Medications and DC Order Prescriptions: New valacyclovir [Valtrex] 1 gram tablet 1,000 mg PO Q8H 10 Days Qty: 30 RF: 0 gabapentin 600 mg Tablet 600 mg PO TID Qty: 45 RF: 1 polyvinyl alcohol [Artificial Tears (polyvin alc)] 1.4 % Drops 2 drp OPR QID PRN (Reason: eye irritation) Qty: 15 RF: 2 Continued albuterol sulfate [Ventolin HFA] 90 mcg/actuation HFA aerosol inhaler 2 puffs INH BID PRN (Reason: Shortness Of Breath Or Wheezing) RF: 0 aspirin 81 mg tablet,delayed release (DR/EC) 81 mg PO QAM RF: 0 atorvastatin 80 mg tablet 80 mg PO QAM RF: 0 budesonide-formoterol 160-4.5 mcg/actuation HFA aerosol inhaler 2 puffs INH BID RF: 0 cholecalciferol (vitamin D3) 1,000 unit capsule 1,000 units PO QAM RF: 0 clopidogrel 75 mg tablet 75 mg PO QPM RF: 0 finasteride 5 mg tablet 5 mg PO QPM RF: 0 fluticasone propionate 50 mcg/actuation spray,suspension 2 sprays INTNAS BID RF: 0 levothyroxine [Synthroid] 50 mcg tablet 50 mcg PO QAM RF: 0 lisinopril 10 mg tablet 10 mg PO QPM RF: 0 nitroglycerin 0.4 mg tablet, sublingual 0.4 mg SL Q5M PRN (Reason: Chest Pain) RF: 0 oxybutynin chloride 10 mg tablet extended release 24hr 10 mg PO QPM RF: 0 sennosides 25 mg tablet 25 mg PO QAM RF: 0 Lidocaine Pain Relief 4 % adhesive patch,medicated 1 patch TOP BID RF: 0 docusate sodium [Colace] 100 mg capsule 200 mg PO HS RF: 0 tiotropium bromide [Spiriva with HandiHaler] 18 mcg capsule, w/inhalation device 1 cap INH DAILY RF: 0 pantoprazole 40 mg tablet,delayed release (DR/EC) 40 mg PO DAILY RF: 0 duloxetine [Cymbalta] 60 mg capsule,delayed release(DR/EC) 60 mg PO QAM Qty: 30 RF: 2 duloxetine [Cymbalta] 30 mg capsule,delayed release(DR/EC) 30 mg PO QAM Qty: 30 RF: 2 hydrocodone-acetaminophen [Holcomb] 5-325 mg tablet 1 tab PO TID PRN (Reason: pain) Qty: 90 RF: 0 Discontinued gabapentin 300 mg capsule 300 mg PO TID Qty: 90 RF: 2 Discharge Orders: Discharge Order (Routine); Ordered 04/18/20 Ordered By: Adele Tinoco Admission Data Admit Date/Time: 04/14/20 15:49 Attending Provider: Adele Tinoco Admit Provider: Adele Tinoco Primary Care Provider: Guera Jay Other Providers: Adele Tinoco Other Interventions: Discharge Summary Assessment (RN) Last Done: 04/18/20 14:40
== END 2020-04-18 15:15 | disposition home or self-care (01) | DRG 125 ==
LOC: 3N 07:09 → ED 07:09 → 3N 12:14

== ENCOUNTER 2021-09-26 18:45 | Observation (INO) ==
[2021-09-26] MEDS ORDERED: SODIUM CHLORIDE 0.9% 500 ML IV SCH (19:00)
--- NOTE | 2021-09-26 19:31 | Emergency Department Note ---
Impression & Plan Syncope, Cough, Wide-complex tachycardia ED Provider Note NAME: CORRIE MCCARTY AGE: 76 SEX: M : 1945 ARRIVES VIA: Ambulance INFORMANT: Patient, ED PROVIDER(S): Noe Jane DO CHIEF COMPLAINT: Syncope HPI: The patient is a 76-year-old male who presented to the emergency department for an evaluation after having a syncopal episode. The patient states he has been having cough-like symptoms for the last few days. His also has a cough at home. He denies having any nausea or vomiting. He did have to go to the bathroom and had a loose bowel movement. He then started to feel dizzy when he stood up. He had a syncopal episode falling forward. He states he also hurt his right hip. He denies having any nausea or vomiting. He denies having any headache. The patient called 911 and he was brought to the emergency department by ambulance. The patient states that he is feeling somewhat better. He states he still has a nonproductive cough. He denies having any chest pain. He was noted to have an episode of wide-complex tachycardia and dizziness prior to arrival. The patient does have a pacemaker. He states that he has been compliant with all of his outpatient medications. 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 Otherwise he states he has been feeling well and taking his medications as prescribed. ROS: See above HPI for pertinent positives & negatives. A total of 10 systems reviewed and were otherwise negative. PAST MEDICAL HISTORY: See Below PAST SURGICAL HISTORY: See Below FAMILY HISTORY: See Below SOCIAL HISTORY: See Below HOME MEDICATIONS: See Below ALLERGIES: See Below VITALS: See Below PHYSICAL EXAMINATION: GENERAL: Patient is awake alert in no acute distress patient is resting comfortably and showing no signs of anxiety EYES: The conjunctivae are clear. The pupils are round and reactive. EARS, NOSE, MOUTH AND THROAT: The nose is without any evidence of any deformity. NECK: The neck is nontender and supple. RESPIRATORY: Diminished breath sounds are noted throughout. Expiratory wheezing was noted throughout. CARDIOVASCULAR: Regular rate and rhythm noted there no murmurs rubs or gallops normal S1 normal S2. GASTROINTESTINAL: The abdomen is soft. Abdomen is nontender. BACK: No midline tenderness or or step-off noted range of motion in flexion extension as well as rotation no signs of muscle spasm noted MUSCULOSKELETAL/EXTREMITIES: There is no evidence of gross deformity full range of motion is noted in the hips and shoulders. SKIN: Skin was warm and dry. Trace pedal edema was noted bilaterally. NEUROLOGIC: Patient is awake alert and oriented x3 strength is symmetric patellar reflexes are 2+ bilaterally MEDICAL DECISION MAKING: The patient is a 76-year-old male who presented to the emergency department by ambulance for evaluation of syncope. The patient had an episode of syncope prior to calling 911. On route the trimmer buffing wheel noted an episode of wide-complex tachycardia. I discussed the patient's laboratory and radiographic studies with him. His pacemaker was interrogated. He did not have any episodes over the last 24 hours of wide-complex tachycardia but was noted to have an episode a few days ago of wide-complex tachycardia. It is possible the patient's episode of syncope today could be related to this previous episode. For this reason I discussed the patient's condition with the on-call [facility] hospitalist. They have agreed to evaluate the patient in the emergency department for further management and disposition. Triage Nursing notes reviewed. Prior medical records reviewed Vital Signs: reviewed and remarkable for elevated blood pressure. Differential diagnosis: Vasovagal event, dehydration, infection, hypoglycemia, electrolyte abnormalities, cardiac sources, intracerebral event, pulmonary embolism, seizure, toxicologic, neurologic, as well as other pathologies. ER treatment provided: See below Diagnostics interpreted by me: ECG: EKG was obtained in the emergency department. My interpretation is atrial paced rhythm with ventricular sensing at 61 bpm. No [place] beats were PVCs were noted. Nonspecific lateral ST depressions with T wave abnormalities were noted. This was compared to a tracing from February [id number]. The low lateral changes are new compared to the earlier tracing otherwise no changes were noted. Cardiac Monitoring: An order was placed for continuous cardiac monitoring. The monitor shows a rate of 63 bpm with paced rhythm. Laboratory studies: As stated above and show below. Imaging studies: See below Consultation(s): I discussed this case with Dr. Eason who is on-call for the [facility] group. Past Med/Surg History Medical History (Updated 09/26/21 @ 22:43 by Noe Jane DO) BPH (benign prostatic hyperplasia) Carotid stenosis Cervical radiculopathy Chronic anticoagulation Chronic hip pain after total replacement of right hip joint Chronic right SI joint pain COPD (chronic obstructive pulmonary disease) Depression Diastolic dysfunction DVT (deep venous thrombosis) (01/29/14) Emphysema of lung Exertional shortness of breath Fingertip amputation History of left heart catheterization (LHC) HLD (hyperlipidemia) HTN (hypertension) Hypothyroidism Intercostal neuralgia Left shoulder pain Lumbar post-laminectomy syndrome Lung infiltrate Myofascial pain Neuritis of left ulnar nerve 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 Osteoarthritis of left knee Pacemaker Post-thoracotomy pain syndrome RLS (restless legs syndrome) Spinal cord stimulator status SSS (sick sinus syndrome) Symptomatic bradycardia Surgical History H/O knee surgery History of hip surgery History of total knee arthroplasty Hx of cholecystectomy Status post insertion of spinal cord stimulator Family History Mother Heart disease Social History Smoking Status: Never smoker Tobacco Type: Cigarettes Hx Alcohol Use: No Hx Substance Use: No Preferred Language: Zambian Communication Ability: Effective Cooker Meal Required: No Beliefs That Will Affect Care: None marital status: Current Living Situation: Spouse current occupational status: disabled Feels Safe at Home: Yes Assistive Devices: Cane, Denture - Upper and Glasses Allergies Allergies Allergy/AdvReac Type Severity Reaction Status Date / Time adhesive Allergy Unknown GOODE SKIN Verified 04/14/20 08:38 No Known Drug Allergies Allergy Unknown . Verified 04/14/20 08:38 Home Meds Home Medications Medication Instructions Recorded Confirmed albuterol sulfate 90 mcg/actuation 2 puffs INH BID PRN gm 02/20/18 06/03/20 aerosol inhaler (Ventolin HFA) aspirin 81 mg tablet,delayed 81 mg PO QAM tab 02/20/18 06/03/20 release atorvastatin 80 mg tablet 80 mg PO QAM tab 02/20/18 06/03/20 budesonide-formoterol HFA 160 2 puffs INH BID 02/20/18 06/03/20 mcg-4.5 mcg/actuation aerosol inhaler cholecalciferol (vitamin D3) 25 1,000 units PO QAM cap 02/20/18 06/03/20 mcg (1,000 unit) capsule clopidogrel 75 mg tablet 75 mg PO QPM tab 02/20/18 06/03/20 finasteride 5 mg tablet 5 mg PO QPM tab 02/20/18 06/03/20 fluticasone propionate 50 2 sprays INTNAS BID gm 02/20/18 06/03/20 mcg/actuation nasal spray,suspension levothyroxine 50 mcg tablet 50 mcg PO QAM tab 02/20/18 06/03/20 (Synthroid) lisinopril 10 mg tablet 10 mg PO QPM tab 02/20/18 06/03/20 nitroglycerin 0.4 mg sublingual 0.4 mg SL Q5M PRN 02/20/18 06/03/20 tablet oxybutynin chloride 10 mg 10 mg PO QPM tab 02/20/18 06/03/20 tablet,extended release 24 hr sennosides 25 mg tablet 25 mg PO QAM tab 02/20/18 06/03/20 docusate sodium 100 mg capsule 200 mg PO HS cap 07/07/18 06/03/20 (Colace) pantoprazole 40 mg tablet,delayed 40 mg PO DAILY 07/07/18 06/03/20 release tiotropium bromide 18 mcg capsule 1 cap INH DAILY 07/07/18 06/03/20 with inhalation device (Spiriva with HandiHaler) lidocaine 4 % topical patch 1 patch TOP BID 08/25/18 06/03/20 (Lidocaine Pain Relief) gabapentin 600 mg tablet 600 mg PO QID tab 06/03/20 06/03/20 Previous Rx's Medication Instructions Recorded duloxetine 30 mg capsule,delayed 30 mg PO QAM #30 cap 04/11/20 release (Cymbalta) hydrocodone 5 mg-acetaminophen 325 1 tab PO TID PRN #90 tab 04/18/20 mg tablet ([place]) polyvinyl alcohol 1.4 % eye drops 2 drp OPR QID PRN #15 ml 04/18/20 (Artificial Tears (polyvinyl alcohol)) duloxetine 60 mg capsule,delayed 60 mg PO QAM #30 cap 05/31/20 release (Cymbalta) oxycodone 5 mg tablet 5 mg PO Q6 PRN #30 tab 12/20/20 Results & Data (ED) Vital Signs Vital Signs - 24 hr 09/26/21 18:51 09/26/21 18:54 09/26/21 19:00 Temperature 36.6 C Temperature Source Oral Pulse Rate 60 67 66 Pulse Rate from SpO2 Sensor 65 Pulse Rhythm Regular Pulse Strength Normal Respiratory Rate 20 22 21 Respiratory Effort / Characteristics Non-Labored Respiratory Depth Normal Respiratory Pattern Regular Blood Pressure 130/60 Blood Pressure [Right Arm] 168/81 H Blood Pressure Mean 83 Blood Pressure Mean [Right Arm] 110 Blood Pressure Position Lying Blood Pressure Position [Right Arm] Lying Pulse Oximetry 94 76 L 99 Oxygen Delivery Method Nasal Cannula Oxygen Flow Rate 5 Sepsis Recent Fever Within 48 Hours No Sepsis New/Unexplained Change in Mental Status N/A Sepsis Action Taken by Nursing No Action Required 09/26/21 19:30 09/26/21 20:00 09/26/21 20:09 Temperature Temperature Source Pulse Rate 61 61 60 Pulse Rate from SpO2 Sensor 61 60 60 Pulse Rhythm Pulse Strength Respiratory Rate 18 17 13 Respiratory Effort / Characteristics Respiratory Depth Respiratory Pattern Blood Pressure 168/81 H Blood Pressure [Right Arm] Blood Pressure Mean 110 Blood Pressure Mean [Right Arm] Blood Pressure Position Blood Pressure Position [Right Arm] Pulse Oximetry 98 94 100 Oxygen Delivery Method Oxygen Flow Rate Sepsis Recent Fever Within 48 Hours Sepsis New/Unexplained Change in Mental Status Sepsis Action Taken by Nursing 09/26/21 20:32 09/26/21 21:00 Temperature Temperature Source Pulse Rate 67 63 Pulse Rate from SpO2 Sensor 64 Pulse Rhythm Pulse Strength Respiratory Rate 20 Respiratory Effort / Characteristics Respiratory Depth Respiratory Pattern Blood Pressure Blood Pressure [Right Arm] Blood Pressure Mean Blood Pressure Mean [Right Arm] Blood Pressure Position Blood Pressure Position [Right Arm] Pulse Oximetry 100 Oxygen Delivery Method Oxygen Flow Rate Sepsis Recent Fever Within 48 Hours Sepsis New/Unexplained Change in Mental Status Sepsis Action Taken by Skilled Nursing Medications Current Medication List: was personally reviewed by me Laboratory Data Attestation: I reviewed the patient's lab results. Result diagrams: 09/26/21 19:20 09/26/21 19:20 Lab Results 09/26/21 09/26/21 09/26/21 Range/Units 19:20 19:20 19:20 WBC 5.42 (4.8-10.8) K/uL RBC 4.46 L (4.7-6.1) M/uL Hgb 14.4 (14.0-18.0) g/dL Hct 40.9 L (42-52) % MCV 91.7 (80-100) fL MCH 32.3 (25-34) pg MCHC 35.2 (32-36) g/dL RDW Std Deviation 45.6 (36.4-46.3) fL RDW Coeff of Jarrett 13.6 (11.5-14.5) % Plt Count 171 (130-400) K/uL MPV 10.6 H (7.4-10.4) fL Immature Gran % (Auto) 0.2 % Neut % (Auto) 62.5 % Lymph % (Auto) 21.2 % Simpson % (Auto) 15.3 % Eos % (Auto) 0.6 % Baso % (Auto) 0.2 % Neut # (Auto) 3.39 (1.4-6.5) K/uL Lymph # (Auto) 1.15 L (1.2-3.4) K/uL Simpson # (Auto) 0.83 H (0.11-0.59) K/uL Eos # (Auto) 0.03 (0-0.5) K/uL Baso # (Auto) 0.01 (0-0.2) K/uL Immature Gran # (Auto) 0.01 (0.00-0.02) K/uL PT 11.4 (9.0-12.0) Seconds INR 1.1 (0.9-1.1) APTT 25.6 (21.0-31.0) Seconds PTT Ratio 0.9 Sodium 139 (136-145) mmol/L Potassium 3.5 (3.5-5.1) mmol/L Chloride 103 (98-107) mmol/L Carbon Dioxide 25 (21-32) mmol/L Anion Gap 11 (3-11) BUN 15 (6-23) mg/dl Creatinine 0.91 (0.6-1.4) mg/dl Est Cr Clr Drug Dosing 72.4 ml/min Est GFR ( Amer) 95.2 ml/min Est GFR (Non-Af Amer) 82.2 ml/min BUN/Creatinine Ratio 16.5 (10-20) Glucose 98 (70-99(Fasting)) mg/dl Calcium 9.2 (8.5-10.1) mg/dl Magnesium 2.0 (1.7-2.4) mg/dl Total Bilirubin 0.8 (0.2-1.0) mg/dl AST 20 (13-39) U/L ALT 13 (7-52) U/L Alkaline Phosphatase 78 (34-104) U/L Troponin I 0.03 (0-0.04) ng/ml Total Protein 7.3 (6.0-8.3) gm/dl Albumin 4.0 (3.4-5.0) gm/dl Globulin 3.3 (2.5-4.0) gm/dl Albumin/Globulin Ratio 1.2 (0.9-2) TSH (0.300-4.500) uIu/ml SARS-CoV-2, RNA, NAAT (NEGATIVE) 09/26/21 09/26/21 Range/Units 19:20 19:39 WBC (4.8-10.8) K/uL RBC (4.7-6.1) M/uL Hgb (14.0-18.0) g/dL Hct (42-52) % MCV (80-100) fL MCH (25-34) pg MCHC (32-36) g/dL RDW Std Deviation (36.4-46.3) fL RDW Coeff of Jarrett (11.5-14.5) % Plt Count (130-400) K/uL MPV (7.4-10.4) fL Immature Gran % (Auto) % Neut % (Auto) % Lymph % (Auto) % Simpson % (Auto) % Eos % (Auto) % Baso % (Auto) % Neut # (Auto) (1.4-6.5) K/uL Lymph # (Auto) (1.2-3.4) K/uL Simpson # (Auto) (0.11-0.59) K/uL Eos # (Auto) (0-0.5) K/uL Baso # (Auto) (0-0.2) K/uL Immature Gran # (Auto) (0.00-0.02) K/uL PT (9.0-12.0) Seconds INR (0.9-1.1) APTT (21.0-31.0) Seconds PTT Ratio Sodium (136-145) mmol/L Potassium (3.5-5.1) mmol/L Chloride (98-107) mmol/L Carbon Dioxide (21-32) mmol/L Anion Gap (3-11) BUN (6-23) mg/dl Creatinine (0.6-1.4) mg/dl Est Cr Clr Drug Dosing ml/min Est GFR ( Amer) ml/min Est GFR (Non-Af Amer) ml/min BUN/Creatinine Ratio (10-20) Glucose (70-99(Fasting)) mg/dl Calcium (8.5-10.1) mg/dl Magnesium (1.7-2.4) mg/dl Total Bilirubin (0.2-1.0) mg/dl AST (13-39) U/L ALT (7-52) U/L Alkaline Phosphatase (34-104) U/L Troponin I (0-0.04) ng/ml Total Protein (6.0-8.3) gm/dl Albumin (3.4-5.0) gm/dl Globulin (2.5-4.0) gm/dl Albumin/Globulin Ratio (0.9-2) TSH 0.580 (0.300-4.500) uIu/ml SARS-CoV-2, RNA, NAAT NEGATIVE (NEGATIVE) Administered Medications Discontinued Medications Sodium Chloride (Nss) 500 mls @ 999 mls/hr IV .Q31M FELIX Stop: 09/26/21 19:30 Last Admin: 09/26/21 19:51 Dose: 999 mls/hr Documented by: [id number] Ondansetron HCl (Ondansetron Inj 2 Mg/Ml 2 Ml Vial) 4 mg IV NOW STA Stop: 09/26/21 19:41 Last Admin: 09/26/21 19:51 Dose: 4 mg Documented by: [id number] Ondansetron HCl (Ondansetron Inj 2 Mg/Ml 2 Ml Vial) Confirm Administered Dose 4 mg .ROUTE .STK-MED ONE Stop: 09/26/21 19:42 Last Admin: 09/26/21 19:51 Dose: Not Given Documented by: [id number] Imaging Data Radiologist's Impression: Cervical Spine CT 09/26/21 18:50 CT cervical spine wo con CLINICAL HISTORY: fall TECHNIQUE: Multidetector row helical CT of the cervical spine was performed without administration of intravenous contrast. Coronal and sagittal reformations were obtained. Automated dose lowering techniques and/or adjustment according to patient size were utilized for this exam. Comparison: None available at the time of this dictation. FINDINGS: No acute fractures or subluxations are identified. Degenerative changes are seen in the visualized spine. A bone island is seen at the vertebral body of C5. Soft tissues are unremarkable. IMPRESSION: No evidence of acute bony injury. ACT 112: Negative or not required by law. Electronically signed by: Eduardo Salinas M.D. 09/26/2021 8:[address] 09/26/21 18:50 CT head/brain wo con CLINICAL HISTORY: fall Technique: Contiguous axial CT images of the head were acquired from the base of the skull to the vertex without intravenous contrast administration. Images were viewed in brain, subdural and bone windows. Automated dose lowering techniques and/or adjustment according to patient size were utilized for this exam. Comparison: None available at the time of this dictation. Findings: Areas of decreased attenuation are present in the periventricular and subcortical white matter bilaterally consistent with small vessel ischemic disease. Generalized cerebral atrophy with commensurate enlargement of the ventricles, sulci, and cisterns is also present. There is no acute intracranial hemorrhage or evidence of acute territorial infarction. No shift of the midline structures, mass effect, or extra-axial abnormalities are shown. Atheroscle rotic calcifications are present in the intracranial segments of the internal carotid arteries. Mucous thickening is seen in the bilateral maxillary sinuses and scattered e thmoid air cells. The orbits appear normal. There are no acute fractures of the calvaria. Soft tissue swelling is seen in the left calvarium. Impression: No acute intracranial hemorrhage or skull fractures. Scalp swelling is seen in the left calvarium. ACT 112: Negative or not required by law. Electronically signed by: Eduardo Salinas M.D. 09/26/2021 8:43 PM Hip/Pelvis X-Ray 09/26/21 18:50 XR hip RT 2V w pelvis CLINICAL HISTORY: fall TECHNIQUE: 2 views of the right hip and single frontal view of the pelvis were obtained. Comparison: Comparison is made to pelvic radiographs 05/15/2019 FINDINGS: No evidence of periarticular lucency or hardware fracture. No acute fractures are seen. Bilateral total hip arthroplasties are seen. No soft tissue abnormality is seen. IMPRESSION: No evidence of acute osseous injury. ACT 112: Negative or not required by law. Electronically signed by: Eduardo Salinas M.D. 09/26/2021 8:12 PM Chest X-Ray 09/26/21 18:51 XR chest 1V portable CLINICAL HISTORY: weakness TECHNIQUE: Single frontal radiograph of the chest was obtained. Comparison: None available at the time of this dictation. FINDINGS: Dual lead pacemaker is seen. The cardiomediastinal silhouette is normal. The lungs are clear. No evidence of pleural effusion or pneumothorax. IMPRESSION: No acute chest disease. ACT 112: Negative or not required by law. Electronically signed by: Eduardo Salinas M.D. 09/26/2021 8:13 PM Discharge Plan Visit Data Chief Complaint: Syncope Stated Complaint: syncope ED Provider: Noe Jane Discharge Problem: Syncope, Cough, Wide-complex tachycardia Patient Disposition: Being Evaluated by Hospitalist Forms Stand Alone Forms: My [facility] Prescriptions Prescriptions: No Action albuterol sulfate [Ventolin HFA] 90 mcg/actuation HFA aerosol inhaler 2 puffs INH BID PRN (Reason: Shortness Of Breath Or Wheezing) RF: 0 aspirin 81 mg tablet,delayed release (DR/EC) 81 mg PO QAM RF: 0 atorvastatin 80 mg tablet 80 mg PO QAM RF: 0 budesonide-formoterol 160-4.5 mcg/actuation HFA aerosol inhaler 2 puffs INH BID RF: 0 cholecalciferol (vitamin D3) 1,000 unit capsule 1,000 units PO QAM RF: 0 clopidogrel 75 mg tablet 75 mg PO QPM RF: 0 finasteride 5 mg tablet 5 mg PO QPM RF: 0 fluticasone propionate 50 mcg/actuation spray,suspension 2 sprays INTNAS BID RF: 0 levothyroxine [Synthroid] 50 mcg tablet 50 mcg PO QAM RF: 0 lisinopril 10 mg tablet 10 mg PO QPM RF: 0 nitroglycerin 0.4 mg tablet, sublingual 0.4 mg SL Q5M PRN (Reason: Chest Pain) RF: 0 oxybutynin chloride 10 mg tablet extended release 24hr 10 mg PO QPM RF: 0 sennosides 25 mg tablet 25 mg PO QAM RF: 0 Lidocaine Pain Relief 4 % adhesive patch,medicated 1 patch TOP BID RF: 0 docusate sodium [Colace] 100 mg capsule 200 mg PO HS RF: 0 tiotropium bromide [Spiriva with HandiHaler] 18 mcg capsule, w/inhalation device 1 cap INH DAILY RF: 0 pantoprazole 40 mg tablet,delayed release (DR/EC) 40 mg PO DAILY RF: 0 gabapentin 600 mg tablet 600 mg PO QID RF: 0 duloxetine [Cymbalta] 30 mg capsule,delayed release(DR/EC) 30 mg PO QAM Qty: 30 RF: 2 duloxetine [Cymbalta] 60 mg capsule,delayed release(DR/EC) 60 mg PO QAM Qty: 30 RF: 2 oxycodone 5 mg tablet 5 mg PO Q6 PRN (Reason: pain) Qty: 30 RF: 0 polyvinyl alcohol [Artificial Tears (polyvin alc)] 1.4 % Drops 2 drp OPR QID PRN (Reason: eye irritation) Qty: 15 RF: 2 hydrocodone-acetaminophen [[place]] 5-325 mg tablet 1 tab PO TID PRN (Reason: pain) Qty: 90 RF: 0 Referrals Referrals: Guera Jay MD [Primary Care Provider] -
[2021-09-26 19:33] LABS: Basophils # (auto) 0.01 K/uL (0-0.2); Basophils % (auto) 0.2 %; Eosinophils # (auto) 0.03 K/uL (0-0.5); Eosinophils % (auto) 0.6 %; Hematocrit (blood only) 40.9 % (42-52); Hemoglobin 14.4 g/dL (14.0-18.0); Immature Granulocytes # (auto) 0.01 K/uL (0.00-0.02); Immature Granulocytes % (auto) 0.2 %; Lymphocytes # (auto) 1.15 K/uL (1.2-3.4); Lymphocytes % (auto) 21.2 %; Mean Corpuscular Hemoglobin 32.3 pg (25-34); Mean Corpuscular Hgb Conc 35.2 g/dL (32-36); Mean Corpuscular Volume 91.7 fL (80-100); Mean Platelet Volume 10.6 fL (7.4-10.4); Monocytes # (auto) 0.83 K/uL (0.11-0.59); Monocytes % (auto) 15.3 %; Neutrophils # (auto) 3.39 K/uL (1.4-6.5); Neutrophils % (auto) 62.5 %; Platelet Count 171 K/uL (130-400); RDW Coefficient of Variation 13.6 % (11.5-14.5); RDW Standard Deviation 45.6 fL (36.4-46.3); Red Blood Count 4.46 M/uL (4.7-6.1); White Blood Count 5.42 K/uL (4.8-10.8)
[2021-09-26] MEDS ORDERED: ONDANSETRON INJ 2 MG/ML 2 ML VIAL IV STA (19:40)
[2021-09-26] MEDS ORDERED: ONDANSETRON INJ 2 MG/ML 2 ML VIAL ONE (19:41)
[2021-09-26 19:45] LABS: INR 1.1 (0.9-1.1); Partial Thromboplastin Ratio 0.9; Partial Thromboplastin Time 25.6 Seconds (21.0-31.0); Prothrombin Time 11.4 Seconds (9.0-12.0)
[2021-09-26 20:03] LABS: Troponin I 0.03 ng/ml (0-0.04)
--- NOTE | 2021-09-26 20:13 | XRay Report ---
XR hip RT 2V w pelvis CLINICAL HISTORY: fall TECHNIQUE: 2 views of the right hip and single frontal view of the pelvis were obtained. Comparison: Comparison is made to pelvic radiographs 05/15/2019 FINDINGS: No evidence of periarticular lucency or hardware fracture. No acute fractures are seen. Bilateral tot al hip arthroplasties are seen. No soft tissue abnormality is seen. IMPRESSION: No evidence of acute osseous injury. ACT 112: Negative or not required by law. Electronically signed by: Eduardo Salinas M.D. 09/26/2021 8:12 PM
--- NOTE | 2021-09-26 20:15 | XRay Report ---
XR chest 1V portable CLINICAL HISTORY: weakness TECHNIQUE: Single frontal radiograph of the chest was obtained. Comparison: None available at the time of this dictation. FINDINGS: Dual lead pacemaker is seen. The cardiomediastinal silhouette is normal. The lungs are clear. No evid ence of pleural effusion or pneumothorax. IMPRESSION: No acute chest disease. ACT 112: Negative or not required by law. Electronically signed by: Eduardo Salinas M.D. 09/26/2021 8:13 PM
[2021-09-26 20:17] LABS: Albumin Globulin Ratio 1.2 (0.9-2); BUN Creatinine Ratio 16.5 (10-20); Bilirubin,Total 0.8 mg/dl (0.2-1.0); Calcium 9.2 mg/dl (8.5-10.1); Creatinine Clr Calc Pharmacy 72.4 ml/min; Est GFR (African American) 95.2 ml/min; Est GFR (Non-African American) 82.2 ml/min; Globulin 3.3 gm/dl (2.5-4.0); Potassium 3.5 mmol/L (3.5-5.1); Total Protein 7.3 gm/dl (6.0-8.3)
--- NOTE | 2021-09-26 20:44 | CT Scan Report ---
CT cervical spine wo con CLINICAL HISTORY: fall TECHNIQUE: Multidetector row helical CT of the cervical spine was performed without administration of intravenous contrast. Coronal and sagittal reformations were obtained. Automated dose lowering techn iques and/or adjustment according to patient size were utilized for this exam. Comparison: None available at the time of this dictation. FINDINGS: No acute fractures or subluxations are identified. Degenerative changes are seen in the visualized sp ine. A bone island is seen at the vertebral body of C5. Soft tissues are unremarkable. IMPRESSION: No evidence of acute bony injury. ACT 112: Negative or not required by law. Electronically signed by: Eduardo Salinas M.D. 09/26/2021 8:41 PM
--- NOTE | 2021-09-26 20:45 | CT Scan Report ---
CT head/brain wo con CLINICAL HISTORY: fall Technique: Contiguous axial CT images of the head were acquired from the base of the skull to the daryl davida without intravenous contrast administration. Images were viewed in brain, subdural and bone [facility] [place]. Automated dose lowering techniques and/or adjustment according to patient size were utilized for this exam. Comparison: None available at the time of this dictation. Findings: Areas of decreased attenuation are present in the periventricular and subcortical white matter bilate rally consistent with small vessel ischemic disease. Generalized cerebral atrophy with commensurate e nlargement of the ventricles, sulci, and cisterns is also present. There is no acute intracranial hem orrhage or evidence of acute territorial infarction. No shift of the midline structures, mass effect, or extra-axial abnormalities are shown. Atherosclerotic calcifications are present in the intracran ial segments of the internal carotid arteries. Mucous thickening is seen in the bilateral maxillary sinuses and scattered ethmoid air cells. The orb its appear normal. There are no acute fractures of the calvaria. Soft tissue swelling is seen in the left calvarium. Impression: No acute intracranial hemorrhage or skull fractures. Scalp swelling is seen in the left calvarium. ACT 112: Negative or not required by law. Electronically signed by: Eduardo Salinas M.D. 09/26/2021 8:43 PM
[2021-09-26 23:45] LABS: Influenza A virus by PCR Negative (Neg); Influenza B virus by PCR Negative (Neg); RSV by PCR Negative (Neg); SARS CoV2 RNA(COVID-19) InHosp NEGATIVE (Negative)
[2021-09-27] MEDS ORDERED: LIDOCAINE/PRILOCAINE 2.5% EA CRM EXT PRN (01:43)
[2021-09-27] MEDS ORDERED: FLUTICASONE PROPIONATE NA SPR 16 GM BTL PRN (01:43)
[2021-09-27] MEDS ORDERED: SODIUM CHLORIDE 0.9% 1000ML 1,000 ML IV SCH (01:43)
[2021-09-27] MEDS ORDERED: NITROGLYCERIN SL 0.4 MG/TAB TAB SL PRN ×2 (01:43)
[2021-09-27] MEDS ORDERED: ONDANSETRON INJ 2 MG/ML 2 ML VIAL IV PRN (01:43)
[2021-09-27] MEDS ORDERED: ACETAMINOPHEN 325 MG TAB PO PRN (01:43)
[2021-09-27] MEDS ORDERED: ALBUTEROL 0.083% NEBU SOLN 3 ML VIAL INH PRN (01:43)
[2021-09-27] MEDS ORDERED: ARTIFICIAL TEARS OPR PRN (01:43)
[2021-09-27] MEDS ORDERED: oxyCODONE HCL IR 5 MG TAB (IMMEDIATE RELEASE) PO PRN (02:00)
--- NOTE | 2021-09-27 02:02 | History and Physical Report ---
CHIEF COMPLAINT: Near syncope. HISTORY OF PRESENT ILLNESS: This 76-year-old male with past medical history significant for symptomatic bradycardia, status post dual chamber permanent pacemaker placement in 2006; history of multivessel coronary artery disease, status post angioplasty in 2017, unable to stent due to acute angle; diastolic CHF; COPD; hypertension; hyperlipidemia; ambulatory dysfunction; COPD; hypertension; ascending aortic aneurysm; diverticulosis of colon; GERD; , Mendez's esophagus; BPH; urge incontinence; restless legs; arthritis; chronic pain due to trauma; depression; xerostomia; presents with near syncope. The patient says he is having cough for the last few days and his has also had cough and feeling sick in the stomach, headaches, not feeling well and he has diarrhea today and when first time when he walked and went to the bathroom for diarrhea when he got up from commode, he felt dizzy and fell in the sink, slowly picked himself up and came and sat in his bed and after sometime he had to go to bathroom again for diarrhea. When he was walking he was feeling very severely dizzy and lightheaded and the legs were giving up and finally went to bathroom, had diarrhea and when he got up from the commode again when he fell forward and hit mirror because he was severely dizzy and room was spinning. He himself laid down on the floor, but he did not pass out. His found him lying on the floor and called his son and called EMS and brought him here. As per the ER, the EMS thought he could have likely wide complex tachycardia. In the ER, his pacemaker was interrogated and there was no VT today, but they found out that he has one episode of nonsustained ventricular tachycardia at the end of August. The patient is currently hemodynamically stable, resting comfortably, has a lot of cough, vision is not that good because he is not wearing glasses. No earache. Has some runny nose and sore throat. Does not know whether he has fevers. No difficulty swallowing. He has chronic chest discomfort from his pacemaker.No shortness of breath, no abdominal pain. Normal bladder movements. No swelling in the legs. ALLERGIES: No known drug allergies. PAST MEDICAL HISTORY: As mentioned above. 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 MEDICATIONS: The patient is on Tylenol Extra Strength 1000 mg p.o. t.i.d. p.r.n., albuterol 2.5 mg inhalation q.4 hours p.r.n., amitriptyline 25 mg p.o. daily, aspirin 81 mg p.o. daily, atorvastatin 80 mg p.o. daily, vitamin D 25 mcg po as directed, Plavix 75 mg p.o. daily, Dulcolax 100 mg p.o. b.i.d., duloxetine 90 mg p.o. daily, finasteride 5 mg p.o. daily, Flonase 2 sprays intranasal daily p.r.n., levothyroxine 75 mcg p.o. daily, Nitrostat 0.4 mg sublingual p.r.n., oxybutynin [id number] mg p.o. daily, oxycodone/acetaminophen 1 tablet p.o. q.6 hours p.r.n., Protonix 40 mg p.o. daily, pregabalin 75 mg p.o. b.i.d., Flomax 0.4 mg p.o. daily, Anoro Ellipta one inhalation daily. FAMILY HISTORY: Significant for mother has asthma, diabetes, CHF, kidney stones; brother has heart disease. SOCIAL HISTORY: , former user of smokeless tobacco, quit in 1971. Alcohol: Occasional. No drug use. REVIEW OF SYSTEMS: As per HPI. Rest of review of systems is negative. PHYSICAL EXAMINATION: GENERAL: The patient is of moderate build, not in acute distress. VITAL SIGNS: Temperature 36.6, pulse 61, respiratory rate 18, blood pressure 158/79, oxygen 92%. HEENT: Pupils equal, round and reactive to light. Oral mucosa moist. NECK: No JVD. No neck masses. CARDIOVASCULAR: S1 and S2 heard. Regular rate and rhythm. No murmur, no gallop. RESPIRATORY SYSTEM: Clear to auscultation bilaterally. No accessory muscle use. Mild bilateral rhonchi heard. No wheezing. ABDOMEN: Soft, bowel sounds present, nontender, no distention. CENTRAL NERVOUS SYSTEM: Cranial nerves II-XII grossly intact, nonfocal. EXTREMITIES: No edema, no erythema. LABORATORY DATA: WBC 5.4, hemoglobin 14.4, hematocrit 40.9, platelets 171. PT 11.4, INR 1.1, APTT 25.6. Sodium 139, potassium 3.4, chloride 103, bicarbonate 25, BUN 15, creatinine 0.9, serum glucose 98, calcium 9.2, magnesium 2. Total bilirubin 0.8, AST 20, ALT 30, alkaline phosphatase 78. Troponin I less than 0.03. TSH 0.5. SARS-CoV-2 PCR negative. Influenza A and B PCR negative. RSV PCR negative. IMAGING DATA: Chest x-ray, dual lead pacemaker seen. Lungs are clear. No evidence of pleural effusion or pneumothorax. Hip and pelvic x-ray: No evidence of acute osseous injury. CT of the head: No acute findings, scalp swelling seen on the left calvarium. Cervical spine CT: No evidence of acute bony injury. EKG: Atrial paced rhythm with prolonged AV conduction at a rate of 61. Nonspecific ST abnormalities. ASSESSMENT AND PLAN: This 76-year-old male presents with near syncope. 1. Near syncope in the setting of ongoing cough for a few days and has diarrhea today and he has nonsustained question of wide complex tachycardia per the EMS, but pacemaker interrogation as per ER was unremarkable for today, but he has brief nonsustained ventricular tachycardia on the end of August. We will monitor in tele floor. Continue with gentle fluids, normal saline 100 mL per hour for 1 liter. Follow orthostatics. Follow echocardiogram. Repeat cardiac enzymes. Consult cardiology in the a.m. Keep n.p.o. until seen by cardiology. 2. History of having some cough with history of chronic obstructive pulmonary disease, positive rhonchi on exam. Possibly bronchitis. COVID, influenza, and RSV are negative. Continue home inhalers. Place him on nebs around the clock and a short course of prednisone. 3. History of coronary artery disease, status post angioplasty. Continue his home medication of statin, aspirin, Plavix. 4.History of sinus node dysfunction, history of symptomatic bradycardia, status post dual chamber pacemaker. Monitor in tele. 4. History of hypertension: Does not seem to be on any medication. 5. History of benign prosthetic hypertrophy, on finasteride and Flomax. Monitor for any urinary retention. 6. History of depression, on Cymbalta. 7. Gastroesophageal reflux disease and Mendez's esophagitis, on Protonix. 8. History of diastolic congestive heart failure: Getting fluids. Monitor for any volume overload. Follow echocardiogram. 9. History of ascending aortic aneurysm. Follow echocardiogram. 10. Deep venous thrombosis prophylaxis. DISPOSITION: Monitor in the tele floor. Level 1 full code. PT/OT prior to discharge. Social service to help with discharge planning. Job ID: [id number] MTDD
[2021-09-27] MEDS ORDERED: CALCIUM CARBONATE 500 MG CHEWABLE TAB PO PRN (02:46)
[2021-09-27 06:22] LABS: Basophils # (auto) 0.01 K/uL (0-0.2); Basophils % (auto) 0.2 %; Eosinophils # (auto) 0.11 K/uL (0-0.5); Eosinophils % (auto) 1.8 %; Hematocrit (blood only) 38.5 % (42-52); Hemoglobin 13.2 g/dL (14.0-18.0); Immature Granulocytes # (auto) 0.01 K/uL (0.00-0.02); Immature Granulocytes % (auto) 0.2 %; Lymphocytes # (auto) 1.27 K/uL (1.2-3.4); Lymphocytes % (auto) 20.8 %; Mean Corpuscular Hemoglobin 31.6 pg (25-34); Mean Corpuscular Hgb Conc 34.3 g/dL (32-36); Mean Corpuscular Volume 92.1 fL (80-100); Mean Platelet Volume 10.7 fL (7.4-10.4); Monocytes # (auto) 0.76 K/uL (0.11-0.59); Monocytes % (auto) 12.4 %; Neutrophils # (auto) 3.96 K/uL (1.4-6.5); Neutrophils % (auto) 64.6 %; Platelet Count 169 K/uL (130-400); RDW Coefficient of Variation 13.7 % (11.5-14.5); RDW Standard Deviation 46.5 fL (36.4-46.3); Red Blood Count 4.18 M/uL (4.7-6.1); White Blood Count 6.12 K/uL (4.8-10.8)
[2021-09-27] MEDS: LEVOTHYROXINE SODIUM 75 MCG TABLET PO SCH (06:24)
[2021-09-27 06:53] LABS: Troponin I 0.04 ng/ml (0-0.04)
[2021-09-27] MEDS: LEVALBUTEROL HCL 1.25 MG/3 ML NEB NEB SCH ×3 (07:06→19:39)
[2021-09-27 07:28] LABS: Calcium 9.3 mg/dl (8.5-10.1); Creatinine Clr Calc Pharmacy 65.9 ml/min; Est GFR (Non-African American) 73.3 ml/min; Potassium 4.2 mmol/L (3.5-5.1)
--- NOTE | 2021-09-27 08:50 | Cardiology Consultation ---
Date of Consultation September 27, 2021 Assessment & Plan (1) Syncope: (2) HTN (hypertension): (3) Chronic anticoagulation: (4) Atherosclerotic heart disease of [place] coronary artery without angina pectoris: (5) Sleep apnea: (6) Chronic hip pain after total replacement of right hip joint: (7) Symptomatic bradycardia: (8) Emphysema of lung: (9) Post-thoracotomy pain syndrome: (10) Carotid stenosis: (11) Diastolic dysfunction: (12) COPD (chronic obstructive pulmonary disease): (13) RLS (restless legs syndrome): (14) PSVT (paroxysmal supraventricular tachycardia): (15) NSVT (nonsustained ventricular tachycardia): Vasovagal event in the setting of GI bug and diarrhea pt has long standing hx of NSVT, no further workup or intervention at this time Pt is having difficulty taking care of his very sick at home, if our case management colleagues could give him some advice on placement options cont IVF monitor on tele overnight History of Present Illness Reason for Consultation: Syncope Requesting Physician: FRANCISCO Attending Physician: Yang Nelson MD History of Present Illness Mr. Shaver is a very pleasant 76 yo male who follows with me closely for his hx of CAD, symptomatic bradycardia and chronic diastolic heart failure. Presents after reported syncopal event at home. Patient states he has been having significant nausea, vomiting and diarrhea for the last few days as has his . On the evening of presentation he had an episode of diarrhea and upon standing from the toilet he became severely lightheaded and syncopized. Denies any trauma or any associated chest pain or palpitations. EMS was summoned and is brought into the emergency room. Question was raised by EMS whether or not patient had wide-complex tachycardia. Device was interrogated which showed nonsustained ventricular tachycardia on the day prior to the event. No associated arrhythmias at the time of his syncope. PAST MEDICAL HISTORY: 1.Symptomatic bradycardia status post dual-chamber permanent pacemaker placement in 2005. 2.Multivessel coronary artery disease with culprit LAD lesion status post plain old balloon angioplasty in November 2016, unable to insert stent due to acute angle. 3.Diastolic dysfunction with normal LV systolic function. 4.COPD. 5.Hypertension. 6.Hyperlipidemia. 7. Ambulatory dysfunction Allergies Allergy/AdvReac Type Severity Reaction Status Date / Time adhesive Allergy Unknown GOODE SKIN Verified 09/26/21 22:54 No Known Drug Allergies Allergy Unknown . Verified 09/26/21 22:54 Home Medications Medication Instructions Recorded Confirmed Type acetaminophen 500 mg tablet 1,000 mg PO TID PRN 09/26/21 09/26/21 History (Tylenol Extra Strength) albuterol sulfate 2.5 mg INHALATION Q4H PRN 09/26/21 09/26/21 History amitriptyline 25 mg tablet 50 mg PO DAILY 09/26/21 09/26/21 History aspirin 81 mg tablet,delayed 81 mg PO DAILY 09/26/21 09/26/21 History release (Ecotrin Low Strength) atorvastatin 80 mg tablet 80 mg PO DAILY 09/26/21 09/26/21 History cholecalciferol (vitamin D3) 25 25 mcg PO DIRECTED 09/26/21 09/26/21 History mcg (1,000 unit) tablet (Vitamin D3) clopidogrel 75 mg tablet 75 mg PO DAILY 09/26/21 09/26/21 History docusate sodium 100 mg tablet 100 mg PO BID 09/26/21 09/26/21 History duloxetine 30 mg capsule,delayed 30 mg PO DAILY 09/26/21 09/26/21 History release duloxetine 60 mg capsule,delayed 60 mg PO DAILY 09/26/21 09/26/21 History release finasteride 5 mg tablet 5 mg PO DAILY 09/26/21 09/26/21 History fluticasone propionate 50 2 spray INTRANASAL DAILY PRN 09/26/21 09/26/21 History mcg/actuation nasal spray,suspension levothyroxine 75 mcg tablet 75 mcg PO DAILY 09/26/21 09/26/21 History lidocaine-prilocaine 2.5 %-2.5 % 1 applic TOPICAL Q8 PRN 09/26/21 09/26/21 History topical cream nitroglycerin 0.4 mg sublingual 0.4 mg SUBLINGUAL DIRECTED PRN 09/26/21 09/26/21 History tablet (Nitrostat) oxybutynin chloride 10 mg 10 mg PO DAILY 09/26/21 09/26/21 History tablet,extended release 24 hr oxycodone-acetaminophen 5 mg-325 1 tab PO Q6 PRN 09/26/21 09/26/21 History mg tablet pantoprazole 40 mg tablet,delayed 40 mg PO DAILY 09/26/21 09/26/21 History release polyvinyl alcohol 1.4 % eye drops 1 drp OPR QID PRN 09/26/21 09/26/21 History (Artificial Tears (polyvinyl alcohol)) pregabalin 75 mg capsule 75 mg PO BID 09/26/21 09/26/21 History tamsulosin 0.4 mg capsule 0.4 mg PO DAILY 09/26/21 09/26/21 History umeclidinium 62.5 mcg-vilanterol 1 inh INHALATION DAILY 09/26/21 09/26/21 History 25 mcg/actuation powdr for inhalation (Anoro Ellipta) Patient History Medical History (Updated 09/27/21 @ 08:49 by Erasmo Merritt DO) BPH (benign prostatic hyperplasia) Carotid stenosis Cervical radiculopathy Chronic anticoagulation Chronic hip pain after total replacement of right hip joint Chronic right SI joint pain COPD (chronic obstructive pulmonary disease) Depression Diastolic dysfunction DVT (deep venous thrombosis) (01/29/14) Emphysema of lung Exertional shortness of breath Fingertip amputation History of left heart catheterization (LHC) HLD (hyperlipidemia) HTN (hypertension) Hypothyroidism Intercostal neuralgia Left shoulder pain Lumbar post-laminectomy syndrome Lung infiltrate Myofascial pain Neuritis of left ulnar nerve 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 Osteoarthritis of left knee Pacemaker Post-thoracotomy pain syndrome RLS (restless legs syndrome) Spinal cord stimulator status SSS (sick sinus syndrome) Symptomatic bradycardia Surgical History H/O knee surgery History of hip surgery History of total knee arthroplasty Hx of cholecystectomy Status post insertion of spinal cord stimulator Family History Mother Heart disease Social History Smoking Status: Never smoker Tobacco Type: Cigarettes Hx Alcohol Use: Yes Alcohol type: beer Hx Substance Use: No Preferred Language: Macedonian Communication Ability: Effective Environmental Advisor Required: No Beliefs That Will Affect Care: None marital status: Current Living Situation: Spouse current occupational status: disabled Other Information That Helps Us Care for You: No Feels Safe at Home: Yes Safety Concerns: Feels Safe At This Time Assistive Devices: Oxygen - Continuous Review of Systems Review of Systems: All systems reviewed & are unremarkable except as noted in HPI & below Physical Exam Physical Exam: General: Awake, alert and oriented x 3. No acute distress. HEENT: Normocephalic, atraumatic. Pupils equal, round and reactive to light and accommodation. Extraocular muscles are intact. Anicteric sclera. Moist mucous membranes. Neck: No JVD. No bruit. Cardiovascular: Regular. Positive S-4. Normal S-1 and S-2. No S-3. 3/6 holosystolic ejection murmur, left sternal border, mid-clavicular line with radiation to the axilla. No rubs. Pulmonary: Clear to auscultation bilaterally. No rales, rhonchi, or wheezing. Abdomen: Bowel sounds x 4, soft. No rebound, guarding or tenderness. No organomegaly. Extremities: No clubbing, cyanosis or edema. +2 pedal pulses bilaterally. Skin: Warm and dry. Results & Data ([facility]) Vital Signs (Past 12 Hours) Vital Signs Temp Pulse Pulse Resp BP BP Pulse Ox 09/27/21 08:28 36.5 C 64 20 146/78 H 96 09/27/21 07:06 72 16 98 09/27/21 03:20 36.8 C 58 L 16 170/84 H 95 09/27/21 01:43 09/27/21 01:34 36.4 C L 62 18 168/85 H 100 09/26/21 23:43 61 18 96 09/26/21 22:00 62 20 158/79 H 92 09/26/21 21:00 63 20 100 Pulse Ox 09/27/21 08:28 09/27/21 07:06 09/27/21 03:20 09/27/21 01:43 98 09/27/21 01:34 09/26/21 23:43 09/26/21 22:00 09/26/21 21:00 (1) Syncope Syncope type: unspecified Qualified Code(s): R55 - Syncope and collapse
[2021-09-27] MEDS: AMITRIPTYLINE HCL 50 MG TAB PO SCH (10:30)
[2021-09-27] MEDS: ASPIRIN 81 MG ECTAB PO SCH (10:31)
[2021-09-27] MEDS: ATORVASTATIN 40 MG TAB PO SCH (10:31)
[2021-09-27] MEDS: predniSONE 20 MG TAB PO SCH (10:31)
[2021-09-27] MEDS: PANTOprazole 40 MG TAB PO SCH (10:32)
[2021-09-27] MEDS: TAMSULOSIN HCL 0.4 MG CAP PO SCH (10:32)
[2021-09-27] MEDS: OXYBUTYNIN CHLORIDE XL 5 MG TABCR PO SCH (10:32)
[2021-09-27] MEDS: FINASTERIDE 5 MG TAB PO SCH (10:33)
[2021-09-27] MEDS: DULoxetine HCL 60 MG CAP PO SCH (10:33)
[2021-09-27] MEDS: CHOLECALCIFEROL 1,000 UNITS 25 MCG TAB PO SCH (10:33)
[2021-09-27] MEDS: DOCUSATE SODIUM 100 MG CAP PO SCH ×3 (10:33→21:03)
[2021-09-27] MEDS: CLOPIDOGREL BISULFATE 75 MG TAB PO SCH (10:34)
[2021-09-27] MEDS: DULoxetine HCL 30 MG CAP PO SCH (10:34)
[2021-09-27] MEDS: UMECLIDINIUM/VILANTEROL 62.5/25MCG 7 PUFFS/INHALER INH SCH (10:38)
[2021-09-27] MEDS: oxyCODONE/ACETAMINOPHEN 5mg/325mg TAB PO PRN (10:43)
[2021-09-27] MEDS: PREGABALIN 75 MG CAP PO SCH ×2 (10:43→21:00)
--- NOTE | 2021-09-27 17:22 | Hospitalist Progress Note ---
Date of Service September 27, 2021 Assessment & Plan (1) Syncope: Plan: 76-year-old male with past medical history significant for symptomatic bradycardia, status post dual chamber permanent pacemaker placement in 2005; history of multivessel coronary artery disease, status post angioplasty in 2017, unable to stent due to acute angle; diastolic CHF; COPD; hypertension; hyperlipidemia; ambulatory dysfunction; COPD; hypertension; ascending aortic aneurysm; diverticulosis of colon; GERD; , Mendez's esophagus; BPH; urge incontinence; restless legs; arthritis; chronic pain due to trauma; depression; xerostomia; presents 09/26 with near syncope. Pt reported cough for last few days with yellow tinge to sputum, feeling sick in the stomach, headache, not feeling well and had diarrhea on the day of arrival. He also reported feeling dizzy while going for the bathroom. He is being managed for the following: #. Near syncope #. Likely viral gastroenteritis In the setting of ongoing cough for a few days and has diarrhea on the day of arrival and he has question of nonsustained wide complex tachycardia per the EMS, but pacemaker interrogation as per ER was unremarkable for today, but he has brief nonsustained ventricular tachycardia on the end of August Per patient, also had similar respiratory and GI symptoms. Pt had 1 diarrhea while in hospital per pt. Admitting CT head negative for acute intracranial findings. Admitting C-spine CT: No acute findings. Obtain orthostatic vitals. Troponin x3 negative.. Cardiology evaluated the patient. Continue telemetry, continue symptomatic management, Pedialyte, gentle IV fluids. Continue with diet as tolerated. 2. History of having some cough with history of chronic obstructive pulmonary disease, positive rhonchi on exam at presentation. Possibly bronchitis. COVID, influenza, and RSV are negative. Continue home inhalers. Placedhim on nebs around the clock and a short course of prednisone. #. Other chronic medical conditions: CAD status post angioplasty, sinus node dysfunction, symptomatic bradycardia, status post dual-chamber pacer, HTN, BPH, depression, GERD, diastolic congestive heart failure, ascending aortic aneurysm Continue with/resume home medications as and when appropriate Monitor for any volume overload, follow-up echocardiogram 09/27 echo: EF 55 to 60%, grade 1 diastolic dysfunction. #. DVT prophylaxis: Heparin subcu. Admission and Anticipated Discharge Date Admission Date: September 27, 2021 Subjective Patient seen and examined at bedside as a follow-up of near syncope and likely acute viral gastroenteritis. Patient was lying in bed, on room air, NAD, had 1 diarrhea while in hospital. Patient denies any acute events overnight. Patient reports increasing cough with yellowish tinge to sputum. Patient also reports recent runny nose and muscle pain. Patient denies any fever/headache/chills/chest pain/palpitations/belly pain/other review of symptoms. Physical Exam Physical Exam: GENERAL: Alert and oriented x3. NAD, on RA. HEENT: No pallor, no icterus. Pupils equal, round and reactive to light. Oral mucosa moist. NECK: No JVD, no neck masses. HEART: S1 and S2 heard. Regular rate and rhythm. No murmur, no gallop. RESPIRATORY SYSTEM: Normal AP diameter. No accessory muscle use. No wheezing, diffuse and bilateral crackles. ABDOMEN: Soft, bowel sounds present, nontender, no distention. CENTRAL NERVOUS SYSTEM: No facial droop. Speech is clear. Obeys simple commands. Moves extremities. EXTREMITIES: No edema, no erythema seen. Results & Data Results & Data ([facility]) Vital Signs (Past 12 Hours) Vital Signs Temp Pulse Resp BP Pulse Ox 09/27/21 16:16 36.7 C 62 18 118/62 92 09/27/21 12:55 36.4 C L 80 18 136/57 L 97 09/27/21 12:49 68 18 91 09/27/21 08:28 36.5 C 64 20 146/78 H 96 09/27/21 07:06 72 16 98 (1) Syncope Syncope type: unspecified Qualified Code(s): R55 - Syncope and collapse
[2021-09-27] MEDS: HEPARIN SOD 5,000 UNIT/0.5 ML VIAL SQ SCH (21:00)
[2021-09-28 06:14] LABS: Mean Corpuscular Hemoglobin 31.1 pg (25-34); Mean Corpuscular Hgb Conc 33.3 g/dL (32-36); Mean Corpuscular Volume 93.3 fL (80-100); Mean Platelet Volume 10.5 fL (7.4-10.4); Platelet Count 168 K/uL (130-400); RDW Coefficient of Variation 13.8 % (11.5-14.5); RDW Standard Deviation 47.4 fL (36.4-46.3); Red Blood Count 3.86 M/uL (4.7-6.1); White Blood Count 5.31 K/uL (4.8-10.8)
[2021-09-28 06:40] LABS: BUN Creatinine Ratio 15.2 (10-20); Calcium 9.1 mg/dl (8.5-10.1); Creatinine Clr Calc Pharmacy 66.6 ml/min; Est GFR (Non-African American) 74.2 ml/min; Magnesium 2.2 mg/dl (1.7-2.4); Phosphorus 4.4 mg/dl (2.5-4.9)
[2021-09-28] MEDS: LEVOTHYROXINE SODIUM 75 MCG TABLET PO SCH (06:48)
--- NOTE | 2021-09-28 06:48 | Electrocardiogram Report ---
Test Reason : Blood Pressure : / mmHG Vent. Rate : 061 BPM Atrial Rate : 061 BPM P-R Int : 240 ms QRS Dur : 088 ms QT Int : 420 ms P-R-T Axes : 000 -10 125 degrees QTc Int : 422 ms Atrial-paced rhythm with prolonged AV conduction Inferior infarct , age undetermined Anteroseptal infarct (cited on or before 11-AUG-2016) Abnormal ECG When compared with ECG of 24-FEB-2020 17:13, T wave inversion more evident in Anterolateral leads Confirmed by Joseph Grajeda ([id number]) on 09/28/2021 6:47:56 AM Referred By: REFERRED SELF Confirmed By:Joseph Grajeda
--- NOTE | 2021-09-28 07:03 | Electrocardiogram Report ---
Test Reason : Blood Pressure : / mmHG Vent. Rate : 061 BPM Atrial Rate : 061 BPM P-R Int : 256 ms QRS Dur : 090 ms QT Int : 422 ms P-R-T Axes : 000 -15 128 degrees QTc Int : 424 ms Poor data quality, interpretation may be adversely affected Atrial-paced rhythm with prolonged AV conduction Septal infarct (cited on or before 11-AUG-2016) Inferior infarct (cited on or before 11-AUG-2016) Abnormal ECG When compared with ECG of 26-SEP-2021 19:35, (unconfirmed) No significant change Confirmed by Joseph Grajeda ([id number]) on 09/28/2021 7:02:27 AM Referred By: REFERRED SELF Confirmed By:Joseph Grajeda
[2021-09-28] MEDS: LEVALBUTEROL HCL 1.25 MG/3 ML NEB NEB SCH ×3 (07:10→19:33)
[2021-09-28] MEDS: AMITRIPTYLINE HCL 50 MG TAB PO SCH (07:53)
[2021-09-28] MEDS: PANTOprazole 40 MG TAB PO SCH (07:53)
[2021-09-28] MEDS: CLOPIDOGREL BISULFATE 75 MG TAB PO SCH (07:54)
[2021-09-28] MEDS: ASPIRIN 81 MG ECTAB PO SCH (07:54)
[2021-09-28] MEDS: OXYBUTYNIN CHLORIDE XL 5 MG TABCR PO SCH (07:54)
[2021-09-28] MEDS: DULoxetine HCL 60 MG CAP PO SCH (07:55)
[2021-09-28] MEDS: ATORVASTATIN 40 MG TAB PO SCH (07:55)
[2021-09-28] MEDS: CHOLECALCIFEROL 1,000 UNITS 25 MCG TAB PO SCH (07:55)
[2021-09-28] MEDS: TAMSULOSIN HCL 0.4 MG CAP PO SCH (07:55)
[2021-09-28] MEDS: DULoxetine HCL 30 MG CAP PO SCH (07:56)
[2021-09-28] MEDS: DOCUSATE SODIUM 100 MG CAP PO SCH ×2 (07:56→20:39)
[2021-09-28] MEDS: FINASTERIDE 5 MG TAB PO SCH (07:57)
[2021-09-28] MEDS: predniSONE 20 MG TAB PO SCH (07:57)
[2021-09-28] MEDS: UMECLIDINIUM/VILANTEROL 62.5/25MCG 7 PUFFS/INHALER INH SCH (07:57)
[2021-09-28] MEDS: HEPARIN SOD 5,000 UNIT/0.5 ML VIAL SQ SCH ×2 (07:59→20:41)
[2021-09-28] MEDS: PREGABALIN 75 MG CAP PO SCH ×2 (08:04→20:39)
--- NOTE | 2021-09-28 09:30 | Electrocardiogram Report ---
Test Reason : Blood Pressure : / mmHG Vent. Rate : 060 BPM Atrial Rate : 060 BPM P-R Int : 280 ms QRS Dur : 096 ms QT Int : 456 ms P-R-T Axes : 000 -20 133 degrees QTc Int : 456 ms Atrial-paced rhythm with prolonged AV conduction Left ventricular hypertrophy with repolarization abnormality Abnormal ECG When compared with ECG of 27-SEP-2021 06:30, Criteria for Septal infarct are no longer Present Confirmed by Fco Ashby ([id number]) on 09/28/2021 9:29:33 AM Referred By: REFERRED SELF Confirmed By:Fco Ashby
--- NOTE | 2021-09-28 10:37 | Cardiology Progress Note ---
Date of Service September 28, 2021 Assessment & Plan (1) Syncope: (2) HTN (hypertension): (3) Chronic anticoagulation: (4) Atherosclerotic heart disease of [place] coronary artery without angina pectoris: (5) Sleep apnea: (6) Chronic hip pain after total replacement of right hip joint: (7) Symptomatic bradycardia: (8) Emphysema of lung: (9) Post-thoracotomy pain syndrome: (10) Carotid stenosis: (11) Diastolic dysfunction: (12) COPD (chronic obstructive pulmonary disease): (13) RLS (restless legs syndrome): (14) PSVT (paroxysmal supraventricular tachycardia): (15) NSVT (nonsustained ventricular tachycardia): Plan: Vasovagal event in the setting of GI bug and diarrhea pt has long standing hx of NSVT, no further workup or intervention at this time Recommend continued hospitalization overnight as diet progresses. The patient expresses sincere gratitude to case management for their advice on help for his . Admission and Anticipated Discharge Date Admission Date: September 27, 2021 Subjective Patient seen and examined, chart reviewed. States he is feeling better today but still not yet back to baseline. Still some shortness of breath and significantly weakened. Denies chest pain or palpitations. Telemetry reviewed: Atrially paced rhythm without arrhythmia. Review of Systems Review of Systems: All systems reviewed & are unremarkable except as noted in HPI & below Physical Exam Physical Exam: General: Awake, alert and oriented x 3. No acute distress. HEENT: Normocephalic, atraumatic. Pupils equal, round and reactive to light and accommodation. Extraocular muscles are intact. Anicteric sclera. Moist mucous membranes. Neck: No JVD. No bruit. Cardiovascular: Regular. Positive S-4. Normal S-1 and S-2. No S-3. 3/6 holosystolic ejection murmur, left sternal border, mid-clavicular line with radiation to the axilla. No rubs. Pulmonary: Clear to auscultation bilaterally. No rales, rhonchi, or wheezing. Abdomen: Bowel sounds x 4, soft. No rebound, guarding or tenderness. No organomegaly. Extremities: No clubbing, cyanosis or edema. +2 pedal pulses bilaterally. Skin: Warm and dry. Results & Data ([facility]) Vital Signs (Past 12 Hours) Vital Signs Temp Pulse Pulse Resp BP BP Pulse Ox 09/28/21 07:56 36.5 C 67 18 115/55 L 90 09/28/21 07:12 78 18 98 09/28/21 04:34 36.4 C L 67 24 135/71 95 09/28/21 01:51 62 09/28/21 01:43 09/27/21 23:24 36.5 C 71 24 127/54 L 92 Pulse Ox 09/28/21 07:56 09/28/21 07:12 09/28/21 04:34 09/28/21 01:51 09/28/21 01:43 92 09/27/21 23:24 (1) Syncope Syncope type: unspecified Qualified Code(s): R55 - Syncope and collapse
[2021-09-28] MEDS: oxyCODONE/ACETAMINOPHEN 5mg/325mg TAB PO PRN ×2 (16:16→23:27)
--- NOTE | 2021-09-28 17:39 | Hospitalist Progress Note ---
Date of Service September 28, 2021 Assessment & Plan (1) Syncope: Plan: 76-year-old male with past medical history significant for symptomatic bradycardia, status post dual chamber permanent pacemaker placement in 2005; history of multivessel coronary artery disease, status post angioplasty in 2017, unable to stent due to acute angle; diastolic CHF; COPD; hypertension; hyperlipidemia; ambulatory dysfunction; COPD; hypertension; ascending aortic aneurysm; diverticulosis of colon; GERD; , Mendez's esophagus; BPH; urge incontinence; restless legs; arthritis; chronic pain due to trauma; depression; xerostomia; presents 4/5 with near syncope. Pt reported cough for last few days with yellow tinge to sputum, feeling sick in the stomach, headache, not feeling well and had diarrhea on the day of arrival. He also reported feeling dizzy while going for the bathroom. He is being managed for the following: #. Near syncope #. Likely viral gastroenteritis In the setting of ongoing cough for a few days and has diarrhea on the day of arrival and he has question of nonsustained wide complex tachycardia per the EMS, but pacemaker interrogation as per ER was unremarkable for today, but he has brief nonsustained ventricular tachycardia on the end of August Per patient, also had similar respiratory and GI symptoms. Pt had 1 diarrhea while in hospital per pt. Admitting CT head negative for acute intracranial findings. Admitting C-spine CT: No acute findings. Orthostatic vitals positive.. Troponin x3 negative.. Cardiology evaluated the patient. Continue telemetry, continue symptomatic management, Pedialyte, patient reports feeling better, advance diet. Continue with diet as tolerated. 2. History of having some cough with history of chronic obstructive pulmonary disease, positive rhonchi and crackles on exam at presentation. Possibly bronchitis. COVID, influenza, and RSV are negative. Continue home inhalers. c/w nebs around the clock and a short course of prednisone. also using doxy 09/28. #. Other chronic medical conditions: CAD status post angioplasty, sinus node dysfunction, symptomatic bradycardia, status post dual-chamber pacer, HTN, BPH, depression, GERD, diastolic congestive heart failure, ascending aortic aneurysm Continue with/resume home medications as and when appropriate Monitor for any volume overload, follow-up echocardiogram 09/27 echo: EF 55 to 60%, grade 1 diastolic dysfunction. #. DVT prophylaxis: Heparin subcu. Disposition: likely DC tomorrow. Admission and Anticipated Discharge Date Admission Date: September 27, 2021 Subjective Patient seen and examined at bedside as a follow-up of near syncope and likely acute viral gastroenteritis. Patient was lying in bed, on room air, NAD, reports improvement in nause, vomiting and diarrhea, still feels some weak. Patient denies any acute events overnight. Pt reports some cough with yellowish sputum, will use doxy. Patient denies any fever/headache/chills/chest pain/palpitations/belly pain/other review of symptoms. Physical Exam Physical Exam: GENERAL: Alert and oriented x3. NAD, on RA. HEENT: No pallor, no icterus. Pupils equal, round and reactive to light. Oral mucosa moist. NECK: No JVD, no neck masses. HEART: S1 and S2 heard. Regular rate and rhythm. No murmur, no gallop. RESPIRATORY SYSTEM: Normal AP diameter. No accessory muscle use. No wheezing, diffuse and bilateral crackles. ABDOMEN: Soft, bowel sounds present, nontender, no distention. CENTRAL NERVOUS SYSTEM: No facial droop. Speech is clear. Obeys simple commands. Moves extremities. EXTREMITIES: No edema, no erythema seen. Results & Data Results & Data ([facility]) Vital Signs (Past 12 Hours) Vital Signs Temp Pulse Resp BP BP Pulse Ox 09/28/21 15:43 36.7 C 68 18 128/62 89 L 09/28/21 13:05 66 18 88 L 09/28/21 11:26 36.7 C 62 19 118/60 94 09/28/21 07:56 36.5 C 67 18 115/55 L 90 09/28/21 07:12 78 18 98 (1) Syncope Syncope type: unspecified Qualified Code(s): R55 - Syncope and collapse
[2021-09-28] MEDS: DOXYCYCLINE HYCLATE 100 MG CAP PO SCH (20:39)
[2021-09-28 23:45] LABS: Appearance Urine Clear (Clear); Bilirubin Urine Negative (Negative); Blood Urine Negative (Negative); Color Urine Yellow; Glucose Urine UA Trace (Negative); Ketones Urine Negative (Negative); Leukocyte Esterase Urine Negative (Negative); Nitrite Urine Negative (Negative); Protein Urine Negative (Negative); Specific Gravity Urine 1.016 (1.000-1.030); Urobilinogen Urine Negative (Negative); pH Urine 5.5 (4.5-7.5)
[2021-09-29] MEDS: LEVOTHYROXINE SODIUM 75 MCG TABLET PO SCH (06:29)
[2021-09-29 06:52] LABS: Hematocrit (blood only) 36.5 % (42-52); Hemoglobin 12.1 g/dL (14.0-18.0); Mean Corpuscular Hemoglobin 31.2 pg (25-34); Mean Corpuscular Hgb Conc 33.2 g/dL (32-36); Mean Corpuscular Volume 94.1 fL (80-100); Mean Platelet Volume 10.9 fL (7.4-10.4); Platelet Count 211 K/uL (130-400); RDW Coefficient of Variation 13.9 % (11.5-14.5); RDW Standard Deviation 47.6 fL (36.4-46.3); Red Blood Count 3.88 M/uL (4.7-6.1)
[2021-09-29] MEDS: LEVALBUTEROL HCL 1.25 MG/3 ML NEB NEB SCH ×2 (06:59→13:14)
[2021-09-29] MEDS: PREGABALIN 75 MG CAP PO SCH (08:13)
[2021-09-29] MEDS: TAMSULOSIN HCL 0.4 MG CAP PO SCH (08:13)
[2021-09-29] MEDS: CLOPIDOGREL BISULFATE 75 MG TAB PO SCH (08:13)
[2021-09-29] MEDS: DOCUSATE SODIUM 100 MG CAP PO SCH (08:14)
[2021-09-29] MEDS: OXYBUTYNIN CHLORIDE XL 5 MG TABCR PO SCH (08:14)
[2021-09-29] MEDS: PANTOprazole 40 MG TAB PO SCH (08:14)
[2021-09-29] MEDS: ASPIRIN 81 MG ECTAB PO SCH (08:14)
[2021-09-29] MEDS: ATORVASTATIN 40 MG TAB PO SCH (08:14)
[2021-09-29] MEDS: DULoxetine HCL 60 MG CAP PO SCH (08:14)
[2021-09-29] MEDS: AMITRIPTYLINE HCL 50 MG TAB PO SCH (08:15)
[2021-09-29] MEDS: predniSONE 20 MG TAB PO SCH (08:15)
[2021-09-29] MEDS: CHOLECALCIFEROL 1,000 UNITS 25 MCG TAB PO SCH (08:15)
[2021-09-29] MEDS: HEPARIN SOD 5,000 UNIT/0.5 ML VIAL SQ SCH (08:16)
[2021-09-29] MEDS: FINASTERIDE 5 MG TAB PO SCH (08:16)
[2021-09-29] MEDS: DULoxetine HCL 30 MG CAP PO SCH (08:16)
[2021-09-29] MEDS: DOXYCYCLINE HYCLATE 100 MG CAP PO SCH (08:16)
[2021-09-29] MEDS: UMECLIDINIUM/VILANTEROL 62.5/25MCG 7 PUFFS/INHALER INH SCH (08:17)
--- NOTE | 2021-09-29 10:21 | Cardiology Progress Note ---
Date of Service September 29, 2021 Assessment & Plan (1) Syncope: (2) HTN (hypertension): (3) Chronic anticoagulation: (4) Atherosclerotic heart disease of [place] coronary artery without angina pectoris: (5) Sleep apnea: (6) Chronic hip pain after total replacement of right hip joint: (7) Symptomatic bradycardia: (8) Emphysema of lung: (9) Post-thoracotomy pain syndrome: (10) Carotid stenosis: (11) Diastolic dysfunction: (12) COPD (chronic obstructive pulmonary disease): (13) RLS (restless legs syndrome): (14) PSVT (paroxysmal supraventricular tachycardia): (15) NSVT (nonsustained ventricular tachycardia): Plan: Vasovagal event in the setting of GI bug and diarrhea pt has long standing hx of NSVT, no further workup or intervention at this time Patient back to baseline. Okay to DC to home from a cardiac standpoint. Continue previous medical regimen. Admission and Anticipated Discharge Date Admission Date: September 27, 2021 Subjective Patient seen and examined, chart reviewed. Patient states he feels much better today. He states he is now back to baseline. Denies cardiac complaints of chest pain, shortness of breath, palpitations, lightheadedness, dizziness or syncope. Telemetry reviewed: Atrially paced rhythm. Physical Exam Physical Exam: General: Awake, alert and oriented x 3. No acute distress. HEENT: Normocephalic, atraumatic. Pupils equal, round and reactive to light and accommodation. Extraocular muscles are intact. Anicteric sclera. Moist mucous membranes. Neck: No JVD. No bruit. Cardiovascular: Regular. Positive S-4. Normal S-1 and S-2. No S-3. 3/6 holosystolic ejection murmur, left sternal border, mid-clavicular line with radiation to the axilla. No rubs. Pulmonary: Clear to auscultation bilaterally. No rales, rhonchi, or wheezing. Abdomen: Bowel sounds x 4, soft. No rebound, guarding or tenderness. No organomegaly. Extremities: No clubbing, cyanosis or edema. +2 pedal pulses bilaterally. Skin: Warm and dry. Results & Data ([facility]) Vital Signs (Past 12 Hours) Vital Signs Temp Pulse Pulse Resp BP BP Pulse Ox 09/29/21 07:13 36.3 C L 65 19 140/72 97 04/08/22 06:59 69 20 92 09/29/21 04:35 36.6 C 64 20 152/79 H 98 09/29/21 01:00 09/28/21 23:33 36.8 C 78 24 168/86 H 97 09/28/21 22:30 64 Pulse Ox 09/29/21 07:13 09/29/21 06:59 09/29/21 04:35 09/29/21 01:00 97 09/28/21 23:33 09/28/21 22:30 (1) Syncope Syncope type: unspecified Qualified Code(s): R55 - Syncope and collapse
[2021-09-29 11:35] VITALS: BP 155/70; PULSE 64; TEMP 97.5
--- NOTE | 2021-09-29 12:15 | Discharge Summary ---
Date of Service September 29, 2021 Admission HPI Per Admitting Provider CHIEF COMPLAINT: Near syncope. HISTORY OF PRESENT ILLNESS: This 76-year-old male with past medical history significant for symptomatic bradycardia, status post dual chamber permanent pacemaker placement in 2005; history of multivessel coronary artery disease, status post angioplasty in 2017, unable to stent due to acute angle; diastolic CHF; COPD; hypertension; hyperlipidemia; ambulatory dysfunction; COPD; hyperte nsion; ascending aortic aneurysm; diverticulosis of colon; GERD; , Mendez's esophagus; BPH; urge incontinence; restless legs; arthritis; chronic pain due to trauma; depression; xerostomia; presents with near syncope. The patient says he is having cough for the last few days and his has also had cough and feeling sick in the stomach, headaches, not feeling well and he has diarrhea today and when first time when he walked and went to the bathroom for diarrhea when he got up from commode, he felt dizzy and fell in the sink, slowly picked himself up and came and sat in his bed and after sometime he had to go to bathroom again for diarrhea. When he was walking he was feeling very severely dizzy and lightheaded and the legs were giving up and finally went to bathroom, had diarrhea and when he got up from the commode again when he fell forward and hit mirror because he was severely dizzy and room was spinning. He himself laid down on the floor, but he did not pass out. His found him lying on the floor and called his son and called EMS and brought him here. As per the ER, the EMS thought he could have likely wide complex tachycardia. In the ER, his pacemaker was interrogated and there was no VT today, but they found out that he has one episode of nonsustained ventricular tachycardia at the end of August. The patient is currently hemodynamically stable, resting comfortably, has a lot of cough, vision is not that good because he is not wearing glasses. No earache. Has some runny nose and sore throat. Does not know whether he has fevers. No difficulty swallowing. He has chronic chest discomfort from his pacemaker.No shortness of breath, no abdominal pain. Normal bladder movements. No swelling in the legs. ALLERGIES: No known drug allergies. PAST MEDICAL HISTORY: As mentioned above. 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 MEDICATIONS: The patient is on Tylenol Extra Strength 1000 mg p.o. t.i.d. p.r.n., albuterol 2.5 mg inhalation q.4 hours p.r.n., amitriptyline 25 mg p.o. daily, aspirin 81 mg p.o. daily, atorvastatin 80 mg p.o. daily, vitamin D 25 mcg po as directed, Plavix 75 mg p.o. daily, Dulcolax 100 mg p.o. b.i.d., duloxetine 90 mg p.o. daily, finasteride 5 mg p.o. daily, Flonase 2 sprays intranasal daily p.r.n., levothyroxine 75 mcg p.o. daily, Nitrostat 0.4 mg sublingual p.r.n., oxybutynin [id number] mg p.o. daily, oxycodone/acetaminophen 1 tablet p.o. q.6 hours p.r.n., Protonix 40 mg p.o. daily, pregabalin 75 mg p.o. b.i.d., Flomax 0.4 mg p.o. daily, Anoro Ellipta one inhalation daily. FAMILY HISTORY: Significant for mother has asthma, diabetes, CHF, kidney stones; brother has heart disease. SOCIAL HISTORY: , former user of smokeless tobacco, quit in 1971. Alcohol: Occasional. No drug use. REVIEW OF SYSTEMS: As per HPI. Rest of review of systems is negative. Admission Exam Per Admitting Provider GENERAL: The patient is of moderate build, not in acute distress. VITAL SIGNS: Temperature 36.6, pulse 61, respiratory rate 18, blood pressure 158/79, oxygen 92%. HEENT: Pupils equal, round and reactive to light. Oral mucosa moist. NECK: No JVD. No neck masses. CARDIOVASCULAR: S1 and S2 heard. Regular rate and rhythm. No murmur, no gallop. RESPIRATORY SYSTEM: Clear to auscultation bilaterally. No accessory muscle use. Mild bilateral rhonchi heard. No wheezing. ABDOMEN: Soft, bowel sounds present, nontender, no distention. CENTRAL NERVOUS SYSTEM: Cranial nerves II-XII grossly intact, nonfocal. EXTREMITIES: No edema, no erythema. Principal Diagnosis Likely viral gastroenteritis Near syncope Bronchitis Discharge Exam GENERAL: Alert and oriented x3. NAD, on RA. HEENT: No pallor, no icterus. Pupils equal, round and reactive to light. Oral mucosa moist. NECK: No JVD, no neck masses. HEART: S1 and S2 heard. Regular rate and rhythm. No murmur, no gallop. RESPIRATORY SYSTEM: Normal AP diameter. No accessory muscle use. No wheezing, diffuse and bilateral crackles. ABDOMEN: Soft, bowel sounds present, nontender, no distention. CENTRAL NERVOUS SYSTEM: No facial droop. Speech is clear. Obeys simple commands. Moves extremities. EXTREMITIES: No edema, no erythema seen. Discharge Data Allergies Allergy/AdvReac Type Severity Reaction Status Date / Time adhesive Allergy Unknown GOODE SKIN Verified 09/26/21 22:54 No Known Drug Allergies Allergy Unknown . Verified 09/26/21 22:54 Consultations 09/26/21 21:31 ED Decision to Admit Stat 09/27/21 08:00 Consult Cardiology Routine Ordered Studies 09/26/21 18:50 CT cervical spine wo con Stat CT head/brain wo con Stat Hospital Course (1) Syncope: 76-year-old male with past medical history significant for symptomatic bradycardia, status post dual chamber permanent pacemaker placement in 2006; history of multivessel coronary artery disease, status post angioplasty in 2017, unable to stent due to acute angle; diastolic CHF; COPD; hypertension; hyperlipidemia; ambulatory dysfunction; COPD; hypertension; ascending aortic aneurysm; diverticulosis of colon; GERD; , Mendez's esophagus; BPH; urge incontinence; restless legs; arthritis; chronic pain due to trauma; depression; xerostomia; presents 4/5 with near syncope. Pt reported cough for last few days with yellow tinge to sputum, feeling sick in the stomach, headache, not feeling well and had diarrhea on the day of arrival. He also reported feeling dizzy while going for the bathroom. He was managed for the following: #. Near syncope #. Likely viral gastroenteritis In the setting of ongoing cough for a few days and has diarrhea on the day of arrival and he has question of nonsustained wide complex tachycardia per the EMS, but pacemaker interrogation as per ER was unremarkable for today, but he has brief nonsustained ventricular tachycardia on the end of August Per patient, also had similar respiratory and GI symptoms. Pt had 1 diarrhea while in hospital per pt. Admitting CT head negative for acute intracranial findings. Admitting C-spine CT: No acute findings. Orthostatic vitals positive.. Troponin x3 negative.. Cardiology evaluated the patient. OK to DC from their POV. Patient feels better, no nausea/dizziness/vomiting/loose stool per patient. Continue with Pedialyte solution [id number] for 2 more days upon discharge. Follow-up with your primary care physician within a week time. Patient tolerating diet well. 2. History of having some cough with history of chronic obstructive pulmonary disease, positive rhonchi and crackles on exam at presentation. Possibly bronchitis. COVID, influenza, and RSV are negative. Continue home inhalers. c/w nebs around the clock and a short course of prednisone. Continue with doxycycline upon discharge as prescribed. Follow-up with your primary care physician within a week time. #. Other chronic medical conditions: CAD status post angioplasty, sinus node dysfunction, symptomatic bradycardia, status post dual-chamber pacer, HTN, BPH, depression, GERD, diastolic congestive heart failure, ascending aortic aneurysm Continue with/resume home medications as and when appropriate Monitor for any volume overload, follow-up echocardiogram 09/27 echo: EF 55 to 60%, grade 1 diastolic dysfunction. #. DVT prophylaxis: Heparin subcu. Following instructions were communicated to the patient at the point of discharge: Follow-up with your primary care physician within a week time. Because of your upper respiratory tract infection, you are being discharged on doxycycline. Continue to take [id number] Pedialyte solution for 2 more days upon discharge. Take medications as prescribed. Total Time Total Time Spent Total Time Spent (In Minutes): 35 Discharge Plan Discharge Items Patient Disposition: Home - Home Health Services Reason For Visit: NEAR SYNCOPE Discharge Diagnosis: Likely viral gastroenteritis Near syncope Bronchitis Activity: Resume your previous activity Non-emergency contact: Primary Care Provider Call non-emergency contact if: you have any medication questions, your symptoms worsen and your temperature is above 101 Follow-up/Referrals: Guera Jay MD [Primary Care Provider] - (Date & Time 10/02/2021 3:00 PM Provider Leah Campuzano PA-C Department Family Medicine [facility] ) Brody Palmer MD [Outside Practitioners] - (Date & Time 10/12/2021 10:40 AM Provider Brody Palmer MD Department Pulmonary Medicine, [facility] ) Diet: Heart Healthy Diet Texture: Easy to Chew Addtl Attending Provider Instructions: Follow-up with your primary care physician within a week time. Because of your upper respiratory tract infection, you are being discharged on doxycycline. Continue to take [id number] Pedialyte solution for 2 more days upon discharge. Take medications as prescribed. Pending Studies at Discharge: No Stand-Alone Forms: My cinvolve, Smoking Cessation Medications and DC Order Prescriptions: New doxycycline hyclate 100 mg Capsule 100 mg PO BID 7 Days Qty: 14 RF: 0 prednisone 20 mg Tablet 40 mg PO DAILY 2 Days Qty: 4 RF: 0 Probiotic 3 billion cell capsule 3,000 mmu cells PO DAILY 7 Days Qty: 7 RF: 0 Continued atorvastatin 80 mg tablet 80 mg PO DAILY RF: 0 albuterol sulfate 2.5 mg /3 mL (0.083 %) Solution For Nebulization 2.5 mg INHALATION Q4H PRN (Reason: Shortness Of Breath Or Wheezing) RF: 0 oxybutynin chloride 10 mg tablet extended release 24hr 10 mg PO DAILY RF: 0 polyvinyl alcohol [Artificial Tears (polyvin alc)] 1.4 % drops 1 drp OPR QID PRN (Reason: Pain) RF: 0 clopidogrel 75 mg tablet 75 mg PO DAILY RF: 0 aspirin [Ecotrin Low Strength] 81 mg Tablet,Delayed Release (Dr/Ec) 81 mg PO DAILY RF: 0 acetaminophen [Tylenol Extra Strength] 500 mg Tablet 1,000 mg PO TID PRN (Reason: Pain) RF: 0 lidocaine-prilocaine 2.5-2.5 % cream 1 applic topical Q8 PRN (Reason: Pain) RF: 0 levothyroxine 75 mcg tablet 75 mcg PO DAILY RF: 0 oxycodone-acetaminophen 5-325 mg tablet 1 tab PO Q6 PRN (Reason: Pain) RF: 0 amitriptyline 25 mg tablet 50 mg PO DAILY RF: 0 tamsulosin 0.4 mg capsule 0.4 mg PO DAILY RF: 0 pantoprazole 40 mg tablet,delayed release (DR/EC) 40 mg PO DAILY RF: 0 nitroglycerin [Nitrostat] 0.4 mg Tablet, Sublingual 0.4 mg sublingual DIRECTED PRN (Reason: Chest Pain) RF: 0 fluticasone propionate 50 mcg/actuation spray,suspension 2 spray INTRANASAL DAILY PRN (Reason: ALLERGIES) RF: 0 docusate sodium 100 mg Tablet 100 mg PO BID RF: 0 finasteride 5 mg tablet 5 mg PO DAILY RF: 0 duloxetine 30 mg capsule,delayed release(DR/EC) 30 mg PO DAILY RF: 0 duloxetine 60 mg capsule,delayed release(DR/EC) 60 mg PO DAILY RF: 0 pregabalin 75 mg capsule 75 mg PO BID RF: 0 cholecalciferol (vitamin D3) [Vitamin D3] 25 mcg (1,000 unit) Tablet 25 mcg PO DIRECTED RF: 0 Anoro Ellipta 62.5-25 mcg/actuation Blister With Device 1 inh INHALATION DAILY RF: 0 Discharge Orders: Discharge Order (Routine); Ordered 09/29/21 Ordered By: Yang Nelson Admission Data Admit Date/Time: 09/27/21 00:15 Attending Provider: Yang Nelson Admit Provider: Emmanuel Eason Primary Care Provider: Guera Jay Other Providers: Emmanuel Eason ; Josh Rosenthal
[2021-09-29] MEDS ORDERED: AMOXICILLIN/CLAVULANATE 875 MG TAB PO SCH (13:00)
[2021-09-29 13:16] VITALS: O2SAT 94
--- NOTE | 2021-09-29 13:41 | XRay Report ---
XR chest 1V portable CLINICAL HISTORY: choking, respiratory distress COMPARISON STUDY: Chest CT February 24, 2020. Chest radiograph September 26, 2021. FINDINGS: Left subclavian pacer is in place. Cardiomediastinal silhouette is stable. No pneumothorax or pleural effusion is present. There is no consolidation. No evidence for pulmonary edema. Intracana licular electrodes are incidentally noted. IMPRESSION: No acute cardiopulmonary findings. ACT 112: Negative or not required by law. Electronically signed by: Boyd Chandler M.D. 09/29/2021 1:39 PM
--- NOTE | 2021-09-30 12:32 | Electrocardiogram Report ---
Test Reason : Blood Pressure : / mmHG Vent. Rate : 062 BPM Atrial Rate : 062 BPM P-R Int : 258 ms QRS Dur : 114 ms QT Int : 424 ms P-R-T Axes : -16 -10 141 degrees QTc Int : 430 ms Atrial-paced rhythm with prolonged AV conduction Incomplete left bundle block Left ventricular hypertrophy with repolarization abnormality Abnormal ECG When compared with ECG of 28-SEP-2021 06:26, T wave inversion no longer evident in Anterior leads Confirmed by Joseph Grajeda ([id number]) on 09/30/2021 12:32:09 PM Referred By: REFERRED SELF Confirmed By:Joseph Grajeda
== END 2021-09-29 15:53 | disposition home health service (06) ==
LOC: ED 18:45 → 2S 18:45

== ENCOUNTER 2022-10-25 08:37 | Inpatient (IN) ==
--- NOTE | 2022-10-25 09:07 | Emergency Department Note ---
Impression & Plan Confusion, Weakness, Fall, Closed femur fracture, Acute dehydration ED Provider Note NAME: CORRIE MCCARTY AGE: 77 SEX: M : 1945 ARRIVES VIA: Ambulance INFORMANT: [Patient][EMS, nursing] ED PROVIDER(S): [Geoffrey Keller MD] CHIEF COMPLAINT: Fall, left leg pain HISTORY OF PRESENT ILLNESS: The patient is a 77-year-old male who presents to the ER after a ground-level fall. The patient was complaining of left leg pain after the fall and apparently, has had a surgical work on the left femur/leg. The patient did strike his face and appears to have had a nosebleed earlier. In route to the hospital, the patient was given 10 mg of IV morphine and 4 mg of IV Zofran. He is now quite groggy and sleepy and appears confused. As per EMS, his mental state declined after the morphine was given. Patient has a long past medical history. He does have coronary disease. He was in our hospital about a month ago for a near syncopal spell secondary to a gastroenteritis. Currently, the patient is a very poor historian and can really not contribute to what happened this morning. As per the family, the patient had surgery at [facility] for a distal left femur fracture about 3 weeks ago. PMHx/PSHx: See Below SOCIAL HISTORY: See Below. PHYSICAL EXAM: GENERAL: Patient is in no acute distress. HEENT: Mucous membranes dry, no nasal congestion. There is some dried blood on the face and nose consistent with nasal bleeding earlier, no laceration. No facial bony step-off by my exam. NECK: No stridor, no adenopathy, nontender cervical spine, no step-off. Trachea is midline. LUNGS: Few scattered wheezes heard, no respiratory distress, breath sounds equal. HEART: 2/6 systolic murmur, regular rate and rhythm. ABDOMEN: Soft, nontender, bowel sounds positive, no peritonitis. EXTREMITIES: No cyanosis. The patient does seem to have pain with palpation of the left femur proximally. No obvious deformity. The left knee seems swollen and there may be a joint effusion present. There is no gross deformity to the left knee. NEUROLOGIC: Somnolent, awakes to voice, slurred speech. Moves all extremities. SKIN: No rash, no jaundice, no diaphoresis. DIFFERENTIAL DIAGNOSIS: Intracranial bleeding, skull fracture, facial fracture, C-spine fracture, pelvis or hip fracture, femur fracture, knee fracture, dehydration, anemia, electrolyte imbalance, among others. EMERGENCY DEPARTMENT COURSE/PROCEDURES: Prior/Outside records reviewed: EMS notes. Previous discharge summary. ECG per my interpretation: Indication was weakness. ECG shows an atrial paced rhythm with prolonged AV conduction. The rate is 67. LVH is seen. There are some T wave inversions seen laterally consistent with LVH. There is some baseline artifact. No obvious ST elevation. No PVCs. QTc is 456. Continuous Cardiac Monitoring per my interpretation: An order was placed for continuous cardiac monitoring. The monitor shows a rate of 93 with an atrial pacemaker. Critical Care Note: I have personally spent 47 minutes of critical care time in the direct management of this patient. This includes bedside care, interpretation of diagnostic studies, and testing, discussion with consultants, patient, and family members, and other required patient management activities. This 47 minutes is in excess of all separately billable procedures. MEDICAL DECISION MAKING: There is a mild leukocytosis, this could be consistent with infection or the stress of his fall and presentation. The patient is anemic however, looking back at testing from [facility] recently, the value is actually improved. Platelet count is somewhat elevated at 522. No coagulopathy. No renal failure or significant electrolyte abnormality. Alk phos is elevated, the remaining liver enzymes are unremarkable. Patient's TSH is high however, the T4 is william l. COVID test returned negative. ECG showed an atrial pacemaker, no obvious ischemia. Cardiac enzyme testing x1 is not consistent with acute cardiac injury. Chest x-ray per my review showed a poor inspiratory effort, I did not see any obvious pneumonia, no CHF. Pelvis and left femur films were done. A left knee film was done. Per my review, the patient has a distal femur fracture which could possibly be periprosthetic. No pelvis or hip fracture. Facial CT did not show any acute fracture. Brain CT showed no acute bleed or mass effect. A cervical spine CT showed no acute fracture. On exam, the patient was quite somnolent and required O2 supplementation to maintain a decent oxygenation. He would awaken to voice but seemed confused. The patient received 1.5 L of IV saline during his stay. He has remained somnolent and is still requiring O2 supplementation to maintain his oxygenation. I spoke to the patient's son, I spoke with case management. I was able to speak with a Dr. Krishna from [facility] in [place]. He was on-call for orthopedics. He was able to review our films in comparison to the films at [facility]. This was done through [facility]. The patient had been at [facility] for a distal femur fracture. The films appear unchanged. He did not feel any orthopedic intervention was necessary. As the patient is still confused, as we are unsure if the confusion led to his fall or was a result of the large morphine dose administered prior to arrival, as there is some question as to what happened this morning, admission is warranted. Patient will be hospitalized for monitoring and continued care. I did discuss everything with the on-call hospitalist. DISPOSITION: Patient presentation and findings warrant a hospital stay. Past Med/Surg History Medical History BPH (benign prostatic hyperplasia) Carotid stenosis Cervical radiculopathy Chronic anticoagulation Chronic hip pain after total replacement of right hip joint Chronic right SI joint pain COPD (chronic obstructive pulmonary disease) Depression Diastolic dysfunction DVT (deep venous thrombosis) (01/29/14) Emphysema of lung Exertional shortness of breath Fingertip amputation History of left heart catheterization (LHC) HLD (hyperlipidemia) HTN (hypertension) Hypothyroidism Intercostal neuralgia Left shoulder pain Lumbar post-laminectomy syndrome Lung infiltrate Myofascial pain Neuritis of left ulnar nerve 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 Osteoarthritis of left knee Pacemaker Post-thoracotomy pain syndrome RLS (restless legs syndrome) Spinal cord stimulator status SSS (sick sinus syndrome) Symptomatic bradycardia Surgical History H/O knee surgery History of hip surgery History of total knee arthroplasty Hx of cholecystectomy Status post insertion of spinal cord stimulator Family History Mother Heart disease Social History Smoking Status: Never smoker Tobacco Type: Cigarettes Hx Alcohol Use: Yes Alcohol type: beer Hx Substance Use: No Preferred Language: Romansh Communication Ability: Effective Ehs Manager Required: No Beliefs That Will Affect Care: None marital status: Current Living Situation: Spouse current occupational status: disabled Feels Safe at Home: Yes Assistive Devices: Oxygen - Continuous Allergies Allergies Allergy/AdvReac Type Severity Reaction Status Date / Time adhesive Allergy Unknown GOODE SKIN Verified 10/25/22 12:52 No Known Drug Allergies Allergy Unknown . Verified 09/26/21 22:54 latex Allergy Unknown Verified 10/25/22 12:52 Home Meds Home Medications Medication Instructions Recorded Confirmed albuterol sulfate 2.5 mg/3 mL 2.5 mg inhalation Q4H PRN 09/26/21 10/25/22 (0.083 %) solution for nebulization Shortness Of Breath Or Wheezing atorvastatin 80 mg tablet 80 mg PO DAILY 09/26/21 10/25/22 cholecalciferol (vitamin D3) 25 25 mcg PO AMHS 09/26/21 10/25/22 mcg (1,000 unit) tablet (Vitamin D3) clopidogrel 75 mg tablet 75 mg PO DAILY 09/26/21 10/25/22 docusate sodium 100 mg tablet 100 mg PO BID 09/26/21 10/25/22 duloxetine 30 mg capsule,delayed 30 mg PO DAILY 09/26/21 10/25/22 release duloxetine 60 mg capsule,delayed 60 mg PO DAILY 09/26/21 10/25/22 release finasteride 5 mg tablet 5 mg PO DAILY 09/26/21 10/25/22 fluticasone propionate 50 2 spray intranasal DAILY PRN 09/26/21 10/25/22 mcg/actuation nasal ALLERGIES spray,suspension levothyroxine 75 mcg tablet 75 mcg PO DAILY 09/26/21 10/25/22 nitroglycerin 0.4 mg sublingual 0.4 mg sublingual DIRECTED PRN 09/26/21 10/25/22 tablet (Nitrostat) Chest Pain pantoprazole 40 mg tablet,delayed 40 mg PO DAILY 09/26/21 10/25/22 release polyvinyl alcohol 1.4 % eye drops 1 drp OPR QID PRN Pain 09/26/21 10/25/22 (Artificial Tears (polyvinyl alcohol)) tamsulosin 0.4 mg capsule 0.4 mg PO DAILY 09/26/21 10/25/22 umeclidinium 62.5 mcg-vilanterol 1 inh inhalation DAILY 09/26/21 10/25/22 25 mcg/actuation powdr for inhalation (Anoro Ellipta) acetaminophen 325 mg tablet 650 mg PO Q4 PRN Fever Or Pain 10/25/22 10/25/22 (Tylenol) albuterol sulfate 90 mcg/actuation 2 puff inhalation Q4 PRN Shortness 10/25/22 10/25/22 aerosol inhaler Of Breath Or Wheezing amitriptyline 50 mg tablet 50 mg PO HS 10/25/22 10/25/22 carboxymethylcellulose sodium 1 % 1 drp OPR QID PRN .eye 10/25/22 10/25/22 eye drops (Artificial Tears pain,irritation,dry eye,itching (carboxymethylcellulose)) enoxaparin 30 mg/0.3 mL 30 mg subcut Q12H 10/25/22 10/25/22 subcutaneous syringe fluticasone 250 mcg-salmeterol 50 1 inh inhalation BID 10/25/22 10/25/22 mcg/dose blistr powdr for inhalation (Advair Diskus) gabapentin 600 mg tablet 600 mg PO TID 10/25/22 10/25/22 ipratropium 0.5 mg-albuterol 3 mg 3 ml inhalation Q6H PRN Shortness 10/25/22 10/25/22 (2.5 mg base)/3 mL nebulization Of Breath Or Wheezing soln metoprolol tartrate 25 mg tablet 25 mg PO BID 10/25/22 10/25/22 omeprazole 40 mg capsule,delayed 40 mg PO DAILY 10/25/22 10/25/22 release ondansetron 4 mg disintegrating 4 mg translingual Q8H PRN Nausea 10/25/22 10/25/22 tablet oxycodone 5 mg tablet 5 mg PO Q4H PRN Pain 10/25/22 10/25/22 polyethylene glycol 3350 17 gram 17 g PO DAILY 10/25/22 10/25/22 oral powder packet (Miralax) prednisone 20 mg tablet 40 mg PO .DAILY FOR 5 DAYS 10/25/22 10/25/22 vit no.95-ferrous 1 tab PO DAILY 10/25/22 10/25/22 fumarate 28 mg-folic acid 800 mcg tablet () sennosides 8.6 mg tablet (senna) 17.2 mg PO BID 10/25/22 10/25/22 Results & Data (ED) Vital Signs Vital Signs - 24 hr 10/25/22 08:29 10/25/22 08:58 10/25/22 09:04 Temperature 36.7 C Temperature Source Oral Pulse Rate 64 60 64 Pulse Rate [Apical] Pulse Rhythm [Apical] Pulse Strength [Apical] Respiratory Rate 16 14 Respiratory Effort / Characteristics Respiratory Depth Respiratory Pattern Blood Pressure 114/91 Blood Pressure [Right Arm] Blood Pressure Mean 98 Blood Pressure Mean [Right Arm] Blood Pressure Position Sitting Blood Pressure Position [Right Arm] Pulse Oximetry 100 93 Oxygen Delivery Method Nasal Cannula Nasal Cannula Oxygen Flow Rate 5 5 Sepsis Recent Fever Within 48 Hours No Sepsis New/Unexplained Change in Mental Status N/A Sepsis Action Taken by Nursing No Action Required 10/25/22 08:50 10/25/22 10:50 10/25/22 10:57 Temperature Temperature Source Pulse Rate Pulse Rate [Apical] 76 71 70 Pulse Rhythm [Apical] Regular Pulse Strength [Apical] Normal Respiratory Rate 12 14 18 Respiratory Effort / Characteristics Non-Labored Spontaneous Respiratory Depth Shallow Normal Respiratory Pattern Regular Blood Pressure Blood Pressure [Right Arm] 134/67 134/67 107/74 Blood Pressure Mean Blood Pressure Mean [Right Arm] 89 89 85 Blood Pressure Position Blood Pressure Position [Right Arm] Lying Sitting Pulse Oximetry 93 93 95 Oxygen Delivery Method Nasal Cannula Nasal Cannula Nasal Cannula Oxygen Flow Rate 4 4 4 Sepsis Recent Fever Within 48 Hours Sepsis New/Unexplained Change in Mental Status Sepsis Action Taken by Nursing 10/25/22 11:45 10/25/22 12:43 10/25/22 13:06 Temperature Temperature Source Pulse Rate 77 Pulse Rate [Apical] 72 Pulse Rhythm [Apical] Regular Pulse Strength [Apical] Normal Respiratory Rate 15 Respiratory Effort / Characteristics Non-Labored Spontaneous Respiratory Depth Normal Respiratory Pattern Regular Blood Pressure Blood Pressure [Right Arm] 121/68 105/75 Blood Pressure Mean Blood Pressure Mean [Right Arm] 85 85 Blood Pressure Position Blood Pressure Position [Right Arm] Lying Pulse Oximetry 92 97 Oxygen Delivery Method Nasal Cannula Nasal Cannula Oxygen Flow Rate 4 Sepsis Recent Fever Within 48 Hours Sepsis New/Unexplained Change in Mental Status Sepsis Action Taken by Nursing 10/25/22 13:38 Temperature Temperature Source Pulse Rate Pulse Rate [Apical] 93 H Pulse Rhythm [Apical] Regular Pulse Strength [Apical] Normal Respiratory Rate 15 Respiratory Effort / Characteristics Non-Labored Spontaneous Respiratory Depth Normal Respiratory Pattern Blood Pressure Blood Pressure [Right Arm] 133/96 Blood Pressure Mean Blood Pressure Mean [Right Arm] 108 Blood Pressure Position Blood Pressure Position [Right Arm] Lying Pulse Oximetry 93 Oxygen Delivery Method Nasal Cannula Oxygen Flow Rate 4 Sepsis Recent Fever Within 48 Hours Sepsis New/Unexplained Change in Mental Status Sepsis Action Taken by [facility] Medications Current Medication List: was personally reviewed by me Laboratory Data Attestation: I reviewed the patient's lab results. 10/25/22 10:57 10/25/22 10:57 Lab Results 10/25/22 10/25/22 10/25/22 Range/Units 09:57 09:57 09:57 WBC Cancelled RBC Cancelled Hgb Cancelled Hct Cancelled MCV Cancelled MCH Cancelled MCHC Cancelled RDW Std Deviation Cancelled RDW Coeff of Jarrett Cancelled Plt Count Cancelled MPV Cancelled Immature Gran % (Auto) Cancelled Neut % (Auto) Cancelled Lymph % (Auto) Cancelled [place] % (Auto) Cancelled Eos % (Auto) Cancelled Baso % (Auto) Cancelled Neut # (Auto) Cancelled Lymph # (Auto) Cancelled [place] # (Auto) Cancelled Eos # (Auto) Cancelled Baso # (Auto) Cancelled Immature Gran # (Auto) Cancelled Absolute Nucleated RBC Cancelled Nucleated RBC % (auto) Cancelled Neutrophils % (Manual) Cancelled Band Neutrophils % Cancelled Lymphocytes % (Manual) Cancelled Prolymphocyte % Cancelled Reactive Lymphs % (Man) Cancelled Monocytes % (Manual) Cancelled Eosinophils % (Manual) Cancelled Basophils % (Manual) Cancelled Metamyelocytes % (Man) Cancelled Myelocytes % (Man) Cancelled Promyelocytes % (Man) Cancelled Blast Cells % (Manual) Cancelled Plasma Cell % (Manual) Cancelled Other Cells % Cancelled Nucleated RBC % Cancelled Neutrophils # (Manual) Cancelled Band Neutrophils # Cancelled Total Absolute Neuts Cancelled Lymphocytes # (Manual) Cancelled Prolymphocyte # Cancelled Reactive Lymphs # Cancelled Total Abs Lymphocytes Cancelled Monocytes # (Manual) Cancelled Eosinophils # (Manual) Cancelled Basophils # (Manual) Cancelled Metamyelocytes # (Man) Cancelled Myelocytes # (Manual) Cancelled Promyelocytes # (Man) Cancelled Blast Cells # (Man) Cancelled Plasma Cell # (Manual) Cancelled Other Cells # Cancelled Nucleated RBCs # (Man) Cancelled Hypersegmented Neuts Cancelled Hyposegmented Neuts Cancelled Hypogranular Neuts Cancelled Large Granular Lymphs Cancelled # Lrg Granular Lymphs Cancelled Hairy Cells Cancelled Smudge Cells Cancelled Toxic Granulation Cancelled Toxic Vacuolation Cancelled Dohle Bodies Cancelled Leila Rods Cancelled Platelet Estimate Cancelled Hypogranular Platelets Cancelled Giant Platelets Cancelled Platelet Satelliting Cancelled RBC Morphology Cancelled Polychromasia Cancelled Hypochromasia Cancelled Poikilocytosis Cancelled Basophilic Stippling Cancelled Anisocytosis Cancelled Microcytosis Cancelled Macrocytosis Cancelled Spherocytes Cancelled Pappenheimer Bodies Cancelled Sickle Cells Cancelled Target Cells Cancelled Tear Drop Cells Cancelled Ovalocytes Cancelled Stomatocytes Cancelled George-Font[place] Bodies Cancelled Echinocytes Cancelled Acanthocytes (Spur) Cancelled Rouleaux Cancelled RBC Agglutinates Cancelled Schistocytes Cancelled Sezary Cell Cancelled PT Cancelled INR Cancelled APTT Cancelled PTT Ratio Cancelled Sodium Cancelled Potassium Cancelled Chloride Cancelled Carbon Dioxide Cancelled Anion Gap Cancelled BUN Cancelled Creatinine Cancelled Est Cr Clr Drug Dosing Cancelled Est GFR ( Amer) Cancelled Est GFR (Non-Af Amer) Cancelled BUN/Creatinine Ratio Cancelled Glucose Cancelled Calcium Cancelled Magnesium Cancelled Total Bilirubin Cancelled AST Cancelled ALT Cancelled Alkaline Phosphatase Cancelled Troponin I High Sens Cancelled Total Protein Cancelled Albumin Cancelled Globulin Cancelled Albumin/Globulin Ratio Cancelled TSH Free T4 (0.61-1.60) ng/dl SARS-CoV-2, RNA, NAAT (NEGATIVE) Blood Parasites ID Cancelled 10/25/22 10/25/22 10/25/22 Range/Units 09:57 10:57 10:57 WBC 10.99 H RBC 3.60 L Hgb 11.7 L Hct 36.6 L MCV 101.7 H MCH 32.5 MCHC 32.0 RDW Std Deviation 57.4 H RDW Coeff of Jarrett 15.5 H Plt Count 522 H MPV 9.9 Immature Gran % (Auto) 0.5 Neut % (Auto) 79.4 Lymph % (Auto) 10.7 [place] % (Auto) 6.7 Eos % (Auto) 2.2 Baso % (Auto) 0.5 Neut # (Auto) 8.73 H Lymph # (Auto) 1.18 L [place] # (Auto) 0.74 H Eos # (Auto) 0.24 Baso # (Auto) 0.05 Immature Gran # (Auto) 0.05 Absolute Nucleated RBC Nucleated RBC % (auto) Neutrophils % (Manual) Band Neutrophils % Lymphocytes % (Manual) Prolymphocyte % Reactive Lymphs % (Man) Monocytes % (Manual) Eosinophils % (Manual) Basophils % (Manual) Metamyelocytes % (Man) Myelocytes % (Man) Promyelocytes % (Man) Blast Cells % (Manual) Plasma Cell % (Manual) Other Cells % Nucleated RBC % Neutrophils # (Manual) Band Neutrophils # Total Absolute Neuts Lymphocytes # (Manual) Prolymphocyte # Reactive Lymphs # Total Abs Lymphocytes Monocytes # (Manual) Eosinophils # (Manual) Basophils # (Manual) Metamyelocytes # (Man) Myelocytes # (Manual) Promyelocytes # (Man) Blast Cells # (Man) Plasma Cell # (Manual) Other Cells # Nucleated RBCs # (Man) Hypersegmented Neuts Hyposegmented Neuts Hypogranular Neuts Large Granular Lymphs # Lrg Granular Lymphs Hairy Cells Smudge Cells Toxic Granulation Toxic Vacuolation Dohle Bodies Lelia Rods Platelet Estimate Hypogranular Platelets Giant Platelets Platelet Satelliting RBC Morphology Polychromasia Hypochromasia Poikilocytosis Basophilic Stippling Anisocytosis Microcytosis Macrocytosis Spherocytes Pappenheimer Bodies Sickle Cells Target Cells Tear Drop Cells Ovalocytes Stomatocytes George-Font[place] Bodies Echinocytes Acanthocytes (Spur) Rouleaux RBC Agglutinates Schistocytes Sezary Cell PT 11.2 INR 1.0 APTT 21.1 PTT Ratio 0.7 Sodium Potassium Chloride Carbon Dioxide Anion Gap BUN Creatinine Est Cr Clr Drug Dosing Est GFR ( Amer) Est GFR (Non-Af Amer) BUN/Creatinine Ratio Glucose Calcium Magnesium Total Bilirubin AST ALT Alkaline Phosphatase Troponin I High Sens Total Protein Albumin Globulin Albumin/Globulin Ratio TSH Cancelled Free T4 (0.61-1.60) ng/dl SARS-CoV-2, RNA, NAAT (NEGATIVE) Blood Parasites ID 10/25/22 10/25/22 10/25/22 Range/Units 10:57 10:57 Unknown WBC RBC Hgb Hct MCV MCH MCHC RDW Std Deviation RDW Coeff of Jarrett Plt Count MPV Immature Gran % (Auto) Neut % (Auto) Lymph % (Auto) [place] % (Auto) Eos % (Auto) Baso % (Auto) Neut # (Auto) Lymph # (Auto) [place] # (Auto) Eos # (Auto) Baso # (Auto) Immature Gran # (Auto) Absolute Nucleated RBC Nucleated RBC % (auto) Neutrophils % (Manual) Band Neutrophils % Lymphocytes % (Manual) Prolymphocyte % Reactive Lymphs % (Man) Monocytes % (Manual) Eosinophils % (Manual) Basophils % (Manual) Metamyelocytes % (Man) Myelocytes % (Man) Promyelocytes % (Man) Blast Cells % (Manual) Plasma Cell % (Manual) Other Cells % Nucleated RBC % Neutrophils # (Manual) Band Neutrophils # Total Absolute Neuts Lymphocytes # (Manual) Prolymphocyte # Reactive Lymphs # Total Abs Lymphocytes Monocytes # (Manual) Eosinophils # (Manual) Basophils # (Manual) Metamyelocytes # (Man) Myelocytes # (Manual) Promyelocytes # (Man) Blast Cells # (Man) Plasma Cell # (Manual) Other Cells # Nucleated RBCs # (Man) Hypersegmented Neuts Hyposegmented Neuts Hypogranular Neuts Large Granular Lymphs # Lrg Granular Lymphs Hairy Cells Smudge Cells Toxic Granulation Toxic Vacuolation Dohle Bodies Leila Rods Platelet Estimate Hypogranular Platelets Giant Platelets Platelet Satelliting RBC Morphology Polychromasia Hypochromasia Poikilocytosis Basophilic Stippling Anisocytosis Microcytosis Macrocytosis Spherocytes Pappenheimer Bodies Sickle Cells Target Cells Tear Drop Cells Ovalocytes Stomatocytes George-Fontenelle Bodies Echinocytes Acanthocytes (Spur) Rouleaux RBC Agglutinates Schistocytes Sezary Cell PT INR APTT PTT Ratio Sodium 137 Potassium 4.1 Chloride 106 Carbon Dioxide 28 Anion Gap 3 BUN 12 Creatinine 1.18 Est Cr Clr Drug Dosing 59.5 Est GFR ( Amer) 69.1 Est GFR (Non-Af Amer) 59.6 BUN/Creatinine Ratio 10.2 Glucose 130 H Calcium 9.0 Magnesium 2.2 Total Bilirubin 0.9 AST 22 ALT 19 Alkaline Phosphatase 132 H Troponin I High Sens 15.2 Total Protein 7.2 Albumin 3.9 Globulin 3.3 Albumin/Globulin Ratio 1.2 TSH 10.958 H Free T4 0.88 (0.61-1.60) ng/dl SARS-CoV-2, RNA, NAAT NEGATIVE (NEGATIVE) Blood Parasites ID Administered Medications Discontinued Medications Sodium Chloride (Nss) 500 mls @ 999 mls/hr IV .Q31M FELIX Stop: 10/25/22 09:45 Last Infusion: 10/25/22 09:42 Dose: 0 mls/hr Documented By: Admin: 10/25/22 09:11 Dose: 999 mls/hr Documented By: DRAKE Sodium Chloride (Nss 1000ml) 500 mls @ 999 mls/hr IV .Q31M ONE Stop: 10/25/22 12:09 Last Infusion: 10/25/22 12:35 Dose: 0 mls/hr Documented By: Admin: 10/25/22 11:41 Dose: 999 mls/hr Documented By: MAHAMED Sodium Chloride (Nss 1000ml) 500 mls @ 999 mls/hr IV .Q31M ONE Stop: 10/25/22 13:57 Last Admin: 10/25/22 13:37 Dose: 999 mls/hr Documented By: MAHAMED Imaging Data Radiologist's Impression: Cervical Spine CT 10/25/22 09:04 CT SCAN OF THE CERVICAL SPINE CLINICAL HISTORY: Trauma. Fall. COMPARISON STUDY: CT of the cervical spine dated 09/26/2021 and 09/04/2018. TECHNIQUE: CT scan of the cervical spine is performed from the skull base to the upper thoracic spine. Images are reviewed in the axial, sagittal, and coronal planes. IV contrast was not administered for this examination. A dose lowering technique was utilized adhering to the principles of ALARA. FINDINGS: Skeletal structures: The skeletal structures are osteopenic. There is no evidence of fracture or subluxation involving the cervical spine. Vertebral body height and alignment are maintained. There is straightening of the cervical lordosis. Anterior osteophytes are seen throughout. The odontoid process and lateral masses are intact. The atlantoaxial articulation is preserved noting productive degenerative change. The spinous processes appear intact. A 9 mm bone island is again seen in the body of C5. There is moderate to advanced multilevel cervical spondylosis. Uncovertebral and facet arthropathy contribute to neural foraminal narrowing at most levels. Intervertebral discs: There is moderate to severe disc space narrowing at C6-C7 with endplate sclerosis. Mild disc space narrowing is noted at the remaining cervical levels. Central canal: Posterior disc osteophyte complexes are seen at all cervical levels between C3-C4 and C6-C7. This likely contributes to multilevel acquired compromise of the central canal. Pacemaker leads are noted at the left thoracic inlet. Soft tissues: The prevertebral and paraspinous soft tissues are within normal limits. There is atherosclerotic calcification of the carotid bulbs. Calvarium: The visualized calvarium at the skull base appears intact. Brain parenchyma: Partially visualized brain parenchyma at the skull base is within normal limits. Sinuses and mastoids: The visualized paranasal sinuses are clear. The mastoid air cells are well pneumatized. Lung apices: There is apical scarring. Postsurgical change is noted at the left apex. IMPRESSION: 1. There is no evidence of fracture or subluxation involving the cervical spine. 2. Osteopenia and spondylotic changes as above. ACT 112: Negative or not required by law. Electronically signed by: Geoffrey Auguste M.D. 10/25/2022 9:54 AM Chest X-Ray 10/25/22 09:04 SINGLE VIEW CHEST CLINICAL HISTORY: Generalized weakness. FINDINGS: An AP, portable, upright chest radiograph is compared to study dated 06/08/2022 and correlated with chest CT dated 02/24/2020. A 2-lead cardiac pacemaker is unchanged in position. The heart is enlarged. There is pulmonary vascular congestion. Small pleural effusions are suspected. There is bibasilar scarring/atelectasis. No pneumothorax is seen. The skeletal structures are osteopenic. The bony thorax is grossly intact. An intrathecal lead projects over the lower thoracic spine. Cholecystectomy clips are noted in the right upper quadrant. IMPRESSION: 1. Cardiomegaly and cardiac pacemaker with pulmonary vascular congestion. 2. Small pleural effusions. ACT 112: Negative or not required by law. Electronically signed by: Geoffrey Auguste M.D. 10/25/2022 10:[address] 10/25/22 09:[address] WITHOUT CONTRAST CLINICAL HISTORY: fall, trauma COMPARISON STUDY: Facial bone CT April 14, 2020. TECHNIQUE: A maxillofacial CT was performed without IV contrast. Coronal and sagittal reformats were viewed. Automated exposure control was utilized for the study. A dose lowering technique was utilized adhering to the principles of ALARA. FINDINGS: No acute facial bone fracture is identified. Alignment of the temporomandibular joints is anatomic. There is no acute skull base fracture. Globes are intact. There is no retrobulbar hematoma. The head CT will be reported separately. Numerous teeth are absent. IMPRESSION: No acute facial fracture. ACT 112: Negative or not required by law. Electronically signed by: Boyd Chandler M.D. 10/25/2022 10:51 AM Femur X-Ray 10/25/22 09:04 SINGLE VIEW PELVIS; 2 VIEWS LEFT HIP; 2 VIEWS LEFT FEMUR CLINICAL HISTORY: Fall. Left leg injury. FINDINGS: An AP view of the pelvis, AP and crosstable lateral views of the left hip, with AP and crosstable lateral views of the left femur are obtained. Comparison is made to pelvic x-ray dated 06/23/2018. The skeletal structures are osteopenic. There is no radiographic evidence of acute fracture involving the hips or bony pelvis. Bilateral hip arthroplasties are in near-anatomic alignment. No periprosthetic lucency is seen. Sclerotic changes noted in the sacroiliac joints. There is chronic deformity of the left proximal femur with a buttress plate in place along the lateral cortex. An intramedullary nail is present in the distal femur and a left knee arthroplasty is in place. There is a comminuted fracture of the distal left femoral metadiaphysis with displaced fragments. The largest fragments are medially displaced by up to 8 mm. Overlying soft tissue edema is noted. Fracture is located around the intramedullary nail and may extend to the left knee arthroplasty. No acute fracture is seen i nvolving the left proximal femur. There is mild atherosclerotic calcification of the femoral artery. Moderate fecal retention is noted in the rectosigmoid. IMPRESSION: 1. No acute fracture is seen involving the hips or bony pelvis. 2. Comminuted periprosthetic fracture of the distal left femoral metadiaphysis with displaced fragments as detailed above. 3. 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 Fracture may extend to the left knee arthroplasty. 4. The left proximal femur appears intact. Electronically signed by: Geoffrey Auguste M.D. 10/25/2022 10:[address] 10/25/22 09:04 CT SCAN OF THE BRAIN WITHOUT IV CONTRAST CLINICAL HISTORY: Fall. COMPARISON STUDY: CT of the brain dated 09/26/2021. TECHNIQUE: Unenhanced axial CT scan of the brain is performed from the vertex to the skull base. A dose lowering technique was utilized adhering to the principles of ALARA. FINDINGS: Brain parenchyma: There is age-related involutional change noting [id number] subcortical and periventricular microangiopathic disease. There is no hemorrhage, mass effect, or evidence of acute territorial ischemia by CT criteria. Jordan-white matter differentiation is preserved. No extra-axial fluid collection is seen. Ventricles, sulci, cisterns: Prominent secondary to involutional change. Intracranial vasculature: There is atherosclerotic calcification of the cavernous carotid and vertebral arteries. Calvarium: The skeletal structures are osteopenic. No depressed calvarial fracture is seen. Sinuses and mastoids: The visualized paranasal sinuses are clear. The mastoid air cells are well pneumatized. Orbits: The bony orbits are grossly intact. IMPRESSION: There is no hemorrhage, mass effect, or evidence of acute territorial ischemia by CT criteria. ACT 112: Negative or not required by law. Electronically signed by: Geoffrey Auguste M.D. 10/25/2022 9:49 AM Hip/Pelvis X-Ray 10/25/22 09:04 SINGLE VIEW PELVIS; 2 VIEWS LEFT HIP; 2 VIEWS LEFT FEMUR CLINICAL HISTORY: Fall. Left leg injury. FINDINGS: An AP view of the pelvis, AP and crosstable lateral views of the left hip, with AP and crosstable lateral views of the left femur are obtained. Comparison is made to pelvic x-ray dated 06/23/2018. The skeletal structures are osteopenic. There is no radiographic evidence of acute fracture involving the hips or bony pelvis. Bilateral hip arthroplasties are in near-anatomic alignment. No periprosthetic lucency is seen. Sclerotic changes noted in the sacroiliac joints. There is chronic deformity of the left proximal femur with a buttress plate in place along the lateral cortex. An intramedullary nail is present in the distal femur and a left knee arthroplasty is in place. There is a comminuted fracture of the distal left femoral metadiaphysis with displaced fragments. The largest fragments are medially displaced by up to 8 mm. Overlying soft tissue edema is noted. Fracture is located around the intramedullary nail and may extend to the left knee arthroplasty. No acute fracture is seen involving the left proximal femur. There is mild atherosclerotic calcification of the femoral artery. Moderate fecal retention is noted in the rectosigmoid. IMPRESSION: 1. No acute fracture is seen involving the hips or bony pelvis. 2. Comminuted periprosthetic fracture of the distal left femoral metadiaphysis with displaced fragments as detailed above. 3. 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 Fracture may extend to the left knee arthroplasty. 4. The left proximal femur appears intact. Electronically signed by: Geoffrey Auguste M.D. 10/25/2022 10:56 AM Knee X-Ray 10/25/22 09:04 XR knee LT 1 or 2V routine CLINICAL HISTORY: fall, swelling, trauma COMPARISON: Left knee radiographs October 29, 2018. FINDINGS: Left knee arthroplasty is noted. There is also an intramedullary kalee within the left femur. Note is made of an acute comminuted mildly displaced periprosthetic distal left femoral fracture. Fracture extends from the level the distal shaft of the left femur to the femoral component of the knee arthroplasty. Fracture is displaced 8 mm. There is no proximal left tibial or fibular fracture. IMPRESSION: Acute comminuted mildly displaced periprosthetic distal left femoral fracture, as described above. Fracture is adjacent to the distal aspect of the intramedullary kalee and extends to the femoral component of the left knee arthropathy. ACT 112: Negative or not required by law. Electronically signed by: Boyd Chandler M.D. 10/25/2022 11:03 AM Discharge Plan Visit Data Chief Complaint: Fall Stated Complaint: FALL, LEG PAIN ED Provider: Geoffrey Keller Discharge Problem: Confusion, Weakness, Fall, Closed femur fracture, Acute dehydration Prescriptions Prescriptions: No Action fluticasone propion-salmeterol [Advair Diskus] 250-50 mcg/dose Blister With Device 1 inh INHALATION BID sennosides [senna] 8.6 mg Tablet 17.2 mg PO BID Rx Instructions: dc 10/30/2022 acetaminophen [Tylenol] 325 mg Tablet 650 mg PO Q4 PRN (Reason: Fever Or Pain) gabapentin 600 mg tablet 600 mg PO TID ipratropium-albuterol 0.5 mg-3 mg(2.5 mg base)/3 mL Solution For Nebulization 3 ml INHALATION Q6H PRN (Reason: Shortness Of Breath Or Wheezing) polyethylene glycol 3350 [Miralax] 17 gram Powder In Packet 17 g PO DAILY Rx Instructions: HOLD FOR LOOSE STOOLS prednisone 20 mg Tablet 40 mg PO .DAILY FOR 5 DAYS Rx Instructions: dc date 10/29/2022 omeprazole 40 mg Capsule,Delayed Release(Dr/Ec) 40 mg PO DAILY amitriptyline 50 mg Tablet 50 mg PO HS albuterol sulfate 90 mcg/actuation Hfa Aerosol Inhaler 2 puff INHALATION Q4 PRN (Reason: Shortness Of Breath Or Wheezing) ondansetron 4 mg Tablet,Disintegrating 4 mg translingual Q8H PRN (Reason: Nausea) oxycodone 5 mg Tablet 5 mg PO Q4H PRN (Reason: Pain) Rx Instructions: IR. For moderate-severe pain enoxaparin 30 mg/0.3 mL Syringe 30 mg SUBCUT Q12H Rx Instructions: END 11/03/2022 metoprolol tartrate 25 mg Tablet 25 mg PO BID Rx Instructions: AM, HS PNV [id number] fumarate-FA [] 28 mg iron- 800 mcg Tablet 1 tab PO DAILY Rx Instructions: unknown strength Artificial Tears (cmc) 1 % Drops 1 drp OPR QID PRN (Reason: .eye pain,irritation,dry eye,itching) atorvastatin 80 mg tablet 80 mg PO DAILY albuterol sulfate 2.5 mg /3 mL (0.083 %) Solution For Nebulization 2.5 mg INHALATION Q4H PRN (Reason: Shortness Of Breath Or Wheezing) polyvinyl alcohol [Artificial Tears (polyvin alc)] 1.4 % drops 1 drp OPR QID PRN (Reason: Pain) clopidogrel 75 mg tablet 75 mg PO DAILY levothyroxine 75 mcg tablet 75 mcg PO DAILY tamsulosin 0.4 mg capsule 0.4 mg PO DAILY pantoprazole 40 mg tablet,delayed release (DR/EC) 40 mg PO DAILY nitroglycerin [Nitrostat] 0.4 mg Tablet, Sublingual 0.4 mg sublingual DIRECTED PRN (Reason: Chest Pain) fluticasone propionate 50 mcg/actuation spray,suspension 2 spray INTRANASAL DAILY PRN (Reason: ALLERGIES) docusate sodium 100 mg Tablet 100 mg PO BID finasteride 5 mg tablet 5 mg PO DAILY duloxetine 30 mg capsule,delayed release(DR/EC) 30 mg PO DAILY Rx Instructions: TAKE WITH 60 MG=90MG duloxetine 60 mg capsule,delayed release(DR/EC) 60 mg PO DAILY cholecalciferol (vitamin D3) [Vitamin D3] 25 mcg (1,000 unit) Tablet 25 mcg PO AMHS Anoro Ellipta 62.5-25 mcg/actuation Blister With Device 1 inh INHALATION DAILY
[2022-10-25] MEDS ORDERED: SODIUM CHLORIDE 0.9% 500 ML IV SCH (09:15)
--- NOTE | 2022-10-25 09:51 | CT Scan Report ---
CT SCAN OF THE BRAIN WITHOUT IV CONTRAST CLINICAL HISTORY: Fall. COMPARISON STUDY: CT of the brain dated 09/26/2021. TECHNIQUE: Unenhanced axial CT scan of the brain is performed from the vertex to the skull base. A do se lowering technique was utilized adhering to the principles of ALARA. FINDINGS: Brain parenchyma: There is age-related involutional change noting [id number] subcortical and pe riventricular microangiopathic disease. There is no hemorrhage, mass effect, or evidence of acute ter ritorial ischemia by CT criteria. Jordan-white matter differentiation is preserved. No extra-axial flui d collection is seen. Ventricles, sulci, cisterns: Prominent secondary to involutional change. Intracranial vasculature: There is atherosclerotic calcification of the cavernous carotid and vertebr al arteries. Calvarium: The skeletal structures are osteopenic. No depressed calvarial fracture is seen. Sinuses and mastoids: The visualized paranasal sinuses are clear. The mastoid air cells are well pneu matized. Orbits: The bony orbits are grossly intact. IMPRESSION: There is no hemorrhage, mass effect, or evidence of acute territorial ischemia by CT dean orta. ACT 112: Negative or not required by law. Electronically signed by: Geoffrey Auguste M.D. 10/25/2022 9:49 AM
--- NOTE | 2022-10-25 09:55 | CT Scan Report ---
CT SCAN OF THE CERVICAL SPINE CLINICAL HISTORY: Trauma. Fall. COMPARISON STUDY: CT of the cervical spine dated 09/26/2021 and 09/04/2018. TECHNIQUE: CT scan of the cervical spine is performed from the skull base to the upper thoracic spine . Images are reviewed in the axial, sagittal, and coronal planes. IV contrast was not administered fo r this examination. A dose lowering technique was utilized adhering to the principles of ALARA. FINDINGS: Skeletal structures: The skeletal structures are osteopenic. There is no evidence of fracture or subl uxation involving the cervical spine. Vertebral body height and alignment are maintained. There is s traightening of the cervical lordosis. Anterior osteophytes are seen throughout. The odontoid process and lateral masses are intact. The atlantoaxial articulation is preserved noting productive degenera tive change. The spinous processes appear intact. A 9 mm bone island is again seen in the body of C5. There is moderate to advanced multilevel cervical spondylosis. Uncovertebral and facet arthropathy c ontribute to neural foraminal narrowing at most levels. Intervertebral discs: There is moderate to severe disc space narrowing at C6-C7 with endplate scleros is. Mild disc space narrowing is noted at the remaining cervical levels. Central canal: Posterior disc osteophyte complexes are seen at all cervical levels between C3-C4 and C6-C7. This likely contributes to multilevel acquired compromise of the central canal. Pacemaker lead s are noted at the left thoracic inlet. Soft tissues: The prevertebral and paraspinous soft tissues are within normal limits. There is athero sclerotic calcification of the carotid bulbs. Calvarium: The visualized calvarium at the skull base appears intact. Brain parenchyma: Partially visualized brain parenchyma at the skull base is within normal limits. Sinuses and mastoids: The visualized paranasal sinuses are clear. The mastoid air cells are well pneu matized. Lung apices: There is apical scarring. Postsurgical change is noted at the left apex. IMPRESSION: 1. There is no evidence of fracture or subluxation involving the cervical spine. 2. Osteopenia and spondylotic changes as above. ACT 112: Negative or not required by law. Electronically signed by: Geoffrey Auguste M.D. 10/25/2022 9:54 AM
--- NOTE | 2022-10-25 10:18 | XRay Report ---
SINGLE VIEW CHEST CLINICAL HISTORY: Generalized weakness. FINDINGS: An AP, portable, upright chest radiograph is compared to study dated 06/08/2022 and correla pat with chest CT dated 02/24/2020. A 2-lead cardiac pacemaker is unchanged in position. The heart is e nlarged. There is pulmonary vascular congestion. Small pleural effusions are suspected. There is biba silar scarring/atelectasis. No pneumothorax is seen. The skeletal structures are osteopenic. The bony thorax is grossly intact. An intrathecal lead projects over the lower thoracic spine. Cholecystectom y clips are noted in the right upper quadrant. IMPRESSION: 1. Cardiomegaly and cardiac pacemaker with pulmonary vascular congestion. 2. Small pleural effusions. ACT 112: Negative or not required by law. Electronically signed by: Geoffrey Auguste M.D. 10/25/2022 10:17 AM
--- NOTE | 2022-10-25 10:53 | CT Scan Report ---
MAXILLOFACIAL CT WITHOUT CONTRAST CLINICAL HISTORY: fall, trauma COMPARISON STUDY: Facial bone CT April 14, 2020. TECHNIQUE: A maxillofacial CT was performed without IV contrast. Coronal and sagittal reformats were viewed. Automated exposure control was utilized for the study. A dose lowering technique was utiliz ed adhering to the principles of ALARA. FINDINGS: No acute facial bone fracture is identified. Alignment of the temporomandibular joints is a natomic. There is no acute skull base fracture. Globes are intact. There is no retrobulbar hematoma. The head CT will be reported separately. Numerous teeth are absent. IMPRESSION: No acute facial fracture. ACT 112: Negative or not required by law. Electronically signed by: Boyd Chandler M.D. 10/25/2022 10:51 AM
--- NOTE | 2022-10-25 10:57 | XRay Report ---
SINGLE VIEW PELVIS; 2 VIEWS LEFT HIP; 2 VIEWS LEFT FEMUR CLINICAL HISTORY: Fall. Left leg injury. FINDINGS: An AP view of the pelvis, AP and crosstable lateral views of the left hip, with AP and cros stable lateral views of the left femur are obtained. Comparison is made to pelvic x-ray dated 018. The skeletal structures are osteopenic. There is no radiographic evidence of acute fracture invo lving the hips or bony pelvis. Bilateral hip arthroplasties are in near-anatomic alignment. No peripr osthetic lucency is seen. Sclerotic changes noted in the sacroiliac joints. There is chronic deformit y of the left proximal femur with a buttress plate in place along the lateral cortex. An intramedulla ry nail is present in the distal femur and a left knee arthroplasty is in place. There is a comminute d fracture of the distal left femoral metadiaphysis with displaced fragments. The largest fragments a re medially displaced by up to 8 mm. Overlying soft tissue edema is noted. Fracture is located around the intramedullary nail and may extend to the left knee arthroplasty. No acute fracture is seen invo lving the left proximal femur. There is mild atherosclerotic calcification of the femoral artery. Mod erate fecal retention is noted in the rectosigmoid. IMPRESSION: 1. No acute fracture is seen involving the hips or bony pelvis. 2. Comminuted periprosthetic fracture of the distal left femoral metadiaphysis with displaced fragmen ts as detailed above. 3. 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 Fracture may extend to the left knee arthroplasty. 4. The left proximal femur appears intact. Electronically signed by: Geoffrey Auguste M.D. 10/25/2022 10:56 AM
--- NOTE | 2022-10-25 11:04 | XRay Report ---
XR knee LT 1 or 2V routine CLINICAL HISTORY: fall, swelling, trauma COMPARISON: Left knee radiographs October 29, 2018. FINDINGS: Left knee arthroplasty is noted. There is also an intramedullary kalee within the left femur . Note is made of an acute comminuted mildly displaced periprosthetic distal left femoral fracture. F racture extends from the level the distal shaft of the left femur to the femoral component of the kne e arthroplasty. Fracture is displaced 8 mm. There is no proximal left tibial or fibular fracture. IMPRESSION: Acute comminuted mildly displaced periprosthetic distal left femoral fracture, as describ ed above. Fracture is adjacent to the distal aspect of the intramedullary kalee and extends to the femo ral component of the left knee arthropathy. ACT 112: Negative or not required by law. Electronically signed by: Boyd Chandler M.D. 10/25/2022 11:03 AM
[2022-10-25 11:14] LABS: Basophils # (auto) 0.05 K/uL (0-0.2); Basophils % (auto) 0.5 %; Eosinophils # (auto) 0.24 K/uL (0-0.50); Eosinophils % (auto) 2.2 %; Hematocrit (blood only) 36.6 % (42.0-52.0); Hemoglobin 11.7 g/dl (14.0-18.0); Immature Granulocytes # (auto) 0.05 K/uL (0.01-0.20); Immature Granulocytes % (auto) 0.5 %; Lymphocytes # (auto) 1.18 K/uL (1.2-3.4); Lymphocytes % (auto) 10.7 %; Mean Corpuscular Hemoglobin 32.5 pg (25.0-34.0); Mean Corpuscular Volume 101.7 fL (80.0-100.0); Mean Platelet Volume 9.9 fL (9.4-12.4); Monocytes # (auto) 0.74 K/uL (0.11-0.59); Monocytes % (auto) 6.7 %; Neutrophils # (auto) 8.73 K/uL (1.40-6.50); Neutrophils % (auto) 79.4 %; Platelet Count 522 K/uL (130-400); RDW Coefficient of Variation 15.5 % (11.5-14.5); RDW Standard Deviation 57.4 fL (36.4-46.3); White Blood Count 10.99 K/ul (4.8-10.8)
[2022-10-25 11:32] LABS: Est GFR (African American) 69.1 ml/min; Est GFR (Non-African American) 59.6 ml/min; Potassium 4.1 mmol/L (3.5-5.1)
[2022-10-25 11:33] LABS: Albumin Globulin Ratio 1.2 (0.9-2); Albumin Level 3.9 gm/dl (3.4-5.0); BUN Creatinine Ratio 10.2 (10-20); Bilirubin,Total 0.9 mg/dl (0.2-1.0); Creatinine Clr Calc Pharmacy 59.5 ml/min; Globulin 3.3 gm/dl (2.5-4.0); Magnesium 2.2 mg/dl (1.7-2.4); Total Protein 7.2 gm/dl (6.0-8.3)
[2022-10-25] MEDS ORDERED: SODIUM CHLORIDE 0.9% 1000ML 500 ML IV ONE ×2 (11:39→13:27)
[2022-10-25 11:42] LABS: Troponin I High Sensitivity 15.2 pg/ml (0-20)
[2022-10-25 11:47] LABS: Thyroid Stimulating Hormone 10.958 uIu/ml (0.300-4.500)
[2022-10-25 12:22] LABS: T4 Free Thyroxine 0.88 ng/dl (0.61-1.60)
[2022-10-25 12:31] LABS: Partial Thromboplastin Ratio 0.7; Partial Thromboplastin Time 21.1 Seconds (21.0-31.0); Prothrombin Time 11.2 Seconds (9.0-12.0)
[2022-10-25] MEDS ORDERED: ALUMINUM/MAGNESIUM SUSP 30 ML UDC PO PRN (14:11)
[2022-10-25] MEDS ORDERED: POLYETHYLENE (MIRALAX) 17 GM PACK PO PRN (14:11)
[2022-10-25] MEDS ORDERED: MAGNESIUM HYDROXIDE SUSP 30 ML UDC PO PRN (14:11)
[2022-10-25] MEDS ORDERED: ONDANSETRON INJ 2 MG/ML 2 ML VIAL IV PRN (14:11)
[2022-10-25] MEDS ORDERED: ACETAMINOPHEN 325 MG TAB PO PRN (14:11)
--- NOTE | 2022-10-25 14:34 | History & Physical Report ---
Date of Service October 25, 2022 Assessment & Plan (1) Altered mental status: (2) Fall: (3) Closed femur fracture: (4) Hypothyroidism: (5) Asthma, allergic: (6) Atherosclerotic heart disease of [place] coronary artery without angina pectoris: (7) Deep vein thrombosis of distal lower extremity: (8) Major depressive disorder: (9) BPH (benign prostatic hyperplasia): (10) COPD (chronic obstructive pulmonary disease): (11) Diastolic dysfunction: (12) SSS (sick sinus syndrome): (13) Pacemaker: (14) HTN (hypertension): (15) HLD (hyperlipidemia): (16) Depression: (17) RLS (restless legs syndrome): Plan Pt is a 77yo gentleman with PMHx of sick sinus syndrome s/p pacemaker placement, diastolic CHF, BPH, Chronic pain syndrome, Dyslipidemia, CAD, MDD, Mendez's, GERD, HTN, COPD/asthma, RLS, Hx of DVT who presents after an unwitnessed fall from [facility]. Pt reportedly developed AMS after receiving 10mg of morphine en route to the hospital. AMS Currently lethargic, unarousable on arrival to hospital On plavix and lovenox at home Head CT with no acute brain bleed/changes Discussion with family about his mental baseline- reportedly usually alert with some periods of confusion, usually verbal Suspect currently mental status changes related to morphine dose received [employer], hold further narcotic meds for the next few hours Will continue to monitor for signs of improvement. IV Tylenol 1000mg TID PRN ordered to balance need for pain control while morphine is allowed to wean out of his system. Femur Fracture s/p ORIF with new recent fall Per ED report, [facility] orthopedics contacted and advised that images show no new changes. Pain control- will need IV options while mental status altered- fine balance with narcotic use given AMS PT/OT Continue Lovenox post op Chronic conditions: CAD, SSS s/p pacemaker, CHF, HLD, HLD- continue home plavix, metoprolol, nitrostat prn, statin BPH- continue home flomax once AMS resolved. Chronic pain syndrome- continue home Cymbalta and gabapentin. Consider IV alternatives if AMS persists. Hypothyroidism- continue levothyroxine Constipation- continue home stool softeners, miralax prn. Stool burden noted on imaging. COPD/asthma- continue home short course of prednisone, inhalers MDD- on SNRI cymbalta RLS- monitor while hospitalized Diet: Heart healthy, consider NPO with fluids if AMS persists DVT prophylaxis: Lovenox SQ Code Status: could not be discussed with pt due to mental status, full code per last visit. Dispo: PCU tele History of Present Illness Chief Complaint: Fall, AMS Primary Care Provider: Guera Escudero MD Pt is a 77yo gentleman with PMHx of sick sinus syndrome s/p pacemaker placement, diastolic CHF, BPH, Chronic pain syndrome, Dyslipidemia, CAD, MDD, Mendez's, GERD, HTN, COPD/asthma, RLS, Hx of DVT who presents after an unwitnessed fall from [facility]. Pt reportedly developed AMS after receiving 10mg of morphine en route to the hospital. Per brother Gwyn who was contacted via telephone, pt tried to get out of bed on his own at [facility] and fell. He was recently admitted to [facility] and underwent ORIF of the left distal femur on 10/04/2022. Per [facility] chart review he also 2 units of PRBCs for acute blood loss anemia and had an episode of SVT that required adenosine post-op. Also had an aspiration pneumonia event and Klebsiella UTI. Today, pt was given 10mg of morphine en route to the emergency department. He is currently lethargic and confused and brother states that at baseline he is usually alert. Pt has a Hx of bilateral hip replacements and left knee replacement. ED workup with multiple xrays of the left knee, hips and pelvis, femur all showed no acute fracture but confirmed the presence of a nonhealed peripros thetic distal left femur fracture. Head CT with no acute brain bleed. Allergies Allergy/AdvReac Type Severity Reaction Status Date / Time adhesive Allergy Unknown GOODE SKIN Verified 10/25/22 12:52 No Known Drug Allergies Allergy Unknown . Verified 09/26/21 22:54 latex Allergy Unknown Verified 10/25/22 12:52 Home Medications Medication Instructions Recorded Confirmed Type albuterol sulfate 2.5 mg/3 mL 2.5 mg inhalation Q4H PRN 09/26/21 10/25/22 Histo ry (0.083 %) solution for nebulization Shortness Of Breath Or Wheezing atorvastatin 80 mg tablet 80 mg PO DAILY 09/26/21 10/25/22 History cholecalciferol (vitamin D3) 25 25 mcg PO AMHS 09/26/21 10/25/22 History mcg (1,000 unit) tablet (Vitamin D3) clopidogrel 75 mg tablet 75 mg PO DAILY 09/26/21 10/25/22 History docusate sodium 100 mg tablet 100 mg PO BID 09/26/21 10/25/22 History duloxetine 30 mg capsule,delayed 30 mg PO DAILY 09/26/21 10/25/22 History release duloxetine 60 mg capsule,delayed 60 mg PO DAILY 09/26/21 10/25/22 History release finasteride 5 mg tablet 5 mg PO DAILY 09/26/21 10/25/22 History fluticasone propionate 50 2 spray intranasal DAILY PRN 09/26/21 10/25/22 History mcg/actuation nasal ALLERGIES spray,suspension levothyroxine 75 mcg tablet 75 mcg PO DAILY 09/26/21 10/25/22 History nitroglycerin 0.4 mg sublingual 0.4 mg sublingual DIRECTED PRN 09/26/21 10/25/22 History tablet (Nitrostat) Chest Pain pantoprazole 40 mg tablet,delayed 40 mg PO DAILY 09/26/21 10/25/22 History release polyvinyl alcohol 1.4 % eye drops 1 drp OPR QID PRN Pain 09/26/21 10/25/22 History (Artificial Tears (polyvinyl alcohol)) tamsulosin 0.4 mg capsule 0.4 mg PO DAILY 09/26/21 10/25/22 History umeclidinium 62.5 mcg-vilanterol 1 inh inhalation DAILY 09/26/21 10/25/22 History 25 mcg/actuation powdr for inhalation (Anoro Ellipta) acetaminophen 325 mg tablet 650 mg PO Q4 PRN Fever Or Pain 10/25/22 10/25/22 History (Tylenol) albuterol sulfate 90 mcg/actuation 2 puff inhalation Q4 PRN Shortness 10/25/22 10/25/22 History aerosol inhaler Of Breath Or Wheezing amitriptyline 50 mg tablet 50 mg PO HS 10/25/22 10/25/22 History carboxymethylcellulose sodium 1 % 1 drp OPR QID PRN .eye 10/25/22 10/25/22 History eye drops (Artificial Tears pain,irritation,dry eye,itching (carboxymethylcellulose)) enoxaparin 30 mg/0.3 mL 30 mg subcut Q12H 10/25/22 10/25/22 History subcutaneous syringe fluticasone 250 mcg-salmeterol 50 1 inh inhalation BID 10/25/22 10/25/22 History mcg/dose blistr powdr for inhalation (Advair Diskus) gabapentin 600 mg tablet 600 mg PO TID 10/25/22 10/25/22 History ipratropium 0.5 mg-albuterol 3 mg 3 ml inhalation Q6H PRN Shortness 10/25/22 10/25/22 History (2.5 mg base)/3 mL nebulization Of Breath Or Wheezing soln metoprolol tartrate 25 mg tablet 25 mg PO BID 10/25/22 10/25/22 History omeprazole 40 mg capsule,delayed 40 mg PO DAILY 10/25/22 10/25/22 History release ondansetron 4 mg disintegrating 4 mg translingual Q8H PRN Nausea 10/25/22 10/25/22 History tablet oxycodone 5 mg tablet 5 mg PO Q4H PRN Pain 10/25/22 10/25/22 History polyethylene glycol 3350 17 gram 17 g PO DAILY 10/25/22 10/25/22 History oral powder packet (Miralax) prednisone 20 mg tablet 40 mg PO .DAILY FOR 5 DAYS 10/25/22 10/25/22 History vit no.95-ferrous 1 tab PO DAILY 10/25/22 10/25/22 History fumarate 28 mg-folic acid 800 mcg tablet () sennosides 8.6 mg tablet (senna) 17.2 mg PO BID 10/25/22 10/25/22 History Past Med/Surg History Medical History (Updated 10/25/22 @ 16:12 by Estela Lott MD) BPH (benign prostatic hyperplasia) Carotid stenosis Cervical radiculopathy Chronic anticoagulation Chronic hip pain after total replacement of right hip joint Chronic right SI joint pain COPD (chronic obstructive pulmonary disease) Depression Diastolic dysfunction DVT (deep venous thrombosis) (01/29/14) Emphysema of lung Exertional shortness of breath Fingertip amputation History of left heart catheterization (LHC) HLD (hyperlipidemia) HTN (hypertension) Hypothyroidism Intercostal neuralgia Left shoulder pain Lumbar post-laminectomy syndrome Lung infiltrate Myofascial pain Neuritis of left ulnar nerve 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 Osteoarthritis of left knee Pacemaker Post-thoracotomy pain syndrome RLS (restless legs syndrome) Spinal cord stimulator status SSS (sick sinus syndrome) Symptomatic bradycardia Surgical History H/O knee surgery History of hip surgery History of total knee arthroplasty Hx of cholecystectomy Status post insertion of spinal cord stimulator Family History Mother Heart disease Social History Smoking Status: Never smoker Tobacco Type: Cigarettes Hx Alcohol Use: Yes Alcohol type: beer Hx Substance Use: No Preferred Language: Malay Communication Ability: Effective Leverman Required: No Beliefs That Will Affect Care: None marital status: Current Living Situation: Spouse current occupational status: disabled Feels Safe at Home: Yes Assistive Devices: Oxygen - Continuous Review of Systems Review of Systems: Unobtainable due to cognitive status Physical Exam Physical Exam: General: Pt laying in bed moaning occasionally, unarousable Skin: No noted rashes or bruises Neuro:Moaning HEENT:head appears atraumatic Chest: Nontender to palpation. Opens eyes with sternal rub CV: RRR Resp: no increased effort of breathing Abdomen: Pt restless whenever palpation of the abdomen is attempted Extremities: No edema in lower extremities bilaterally. Results & Data Results & Data Vital Signs (Past 12 Hours) Vital Signs Temp Pulse Pulse Resp BP BP Pulse Ox 10/25/22 13:38 93 H 15 133/96 93 10/25/22 13:06 77 10/25/22 12:43 72 15 105/75 97 10/25/22 11:45 121/68 92 10/25/22 10:57 70 18 107/74 95 10/25/22 10:50 71 14 134/67 93 10/25/22 08:50 76 12 134/67 93 10/25/22 09:04 64 14 93 10/25/22 08:58 60 10/25/22 08:29 36.7 C 64 16 114/91 100 O2 Del Method O2 Flow Rate 10/25/22 13:38 Nasal Cannula 4 10/25/22 13:06 10/25/22 12:43 Nasal Cannula 10/25/22 11:45 Nasal Cannula 4 10/25/22 10:57 Nasal Cannula 4 10/25/22 10:50 Nasal Cannula 4 10/25/22 08:50 Nasal Cannula 4 10/25/22 09:04 Nasal Cannula 5 10/25/22 08:58 10/25/22 08:29 Nasal Cannula 5 Diagnostic Findings Cervical Spine CT 10/25/22 09:04 CT SCAN OF THE CERVICAL SPINE CLINICAL HISTORY: Trauma. Fall. COMPARISON STUDY: CT of the cervical spine dated 09/26/2021 and 09/04/2018. TECHNIQUE: CT scan of the cervical spine is performed from the skull base to the upper thoracic spine. Images are reviewed in the axial, sagittal, and coronal planes. IV contrast was not administered for this examination. A dose lowering technique was utilized adhering to the principles of ALARA. FINDINGS: Skeletal structures: The skeletal structures are osteopenic. There is no evidence of fracture or subluxation involving the cervical spine. Vertebral body height and alignment are maintained. There is straightening of the cervical lordosis. Anterior osteophytes are seen throughout. The odontoid process and lateral masses are intact. The atlantoaxial articulation is preserved noting productive degenerative change. The spinous processes appear intact. A 9 mm bone island is again seen in the body of C5. There is moderate to advanced multilevel cervical spondylosis. Uncovertebral and facet arthropathy contribute to neural foraminal narrowing at most levels. Intervertebral discs: There is moderate to severe disc space narrowing at C6-C7 with endplate sclerosis. Mild disc space narrowing is noted at the remaining cervical levels. Central canal: Posterior disc osteophyte complexes are seen at all cervical levels between C3-C4 and C6-C7. This likely contributes to multilevel acquired compromise of the central canal. Pacemaker leads are noted at the left thoracic inlet. Soft tissues: The prevertebral and paraspinous soft tissues are within normal limits. There is atherosclerotic calcification of the carotid bulbs. Calvarium: The visualized calvarium at the skull base appears intact. Brain parenchyma: Partially visualized brain parenchyma at the skull base is within normal limits. Sinuses and mastoids: The visualized paranasal sinuses are clear. The mastoid air cells are well pneumatized. Lung apices: There is apical scarring. Postsurgical change is noted at the left apex. IMPRESSION: 1. There is no evidence of fracture or subluxation involving the cervical spine. 2. Osteopenia and spondylotic changes as above. ACT 112: Negative or not required by law. Electronically signed by: Geoffrey Auguste M.D. 10/25/2022 9:54 AM Chest X-Ray 10/25/22 09:04 SINGLE VIEW CHEST CLINICAL HISTORY: Generalized weakness. FINDINGS: An AP, portable, upright chest radiograph is compared to study dated 06/08/2022 and correlated with chest CT dated 02/24/2020. A 2-lead cardiac pacemaker is unchanged in position. The heart is enlarged. There is pulmonary vascular congestion. Small pleural effusions are suspected. There is bibasilar scarring/atelectasis. No pneumothorax is seen. The skeletal structures are osteopenic. The bony thorax is grossly intact. An intrathecal lead projects over the lower thoracic spine. Cholecystectomy clips are noted in the right upper quadrant. IMPRESSION: 1. Cardiomegaly and cardiac pacemaker with pulmonary vascular congestion. 2. Small pleural effusions. ACT 112: Negative or not required by law. Electronically signed by: Geoffrey Auguste M.D. 10/25/2022 10:[address] 10/25/22 09:[address] WITHOUT CONTRAST CLINICAL HISTORY: fall, trauma COMPARISON STUDY: Facial bone CT April 14, 2020. TECHNIQUE: A maxillofacial CT was performed without IV contrast. Coronal and sagittal reformats were viewed. Automated exposure control was utilized for the study. A dose lowering technique was utilized adhering to the principles of ALARA. FINDINGS: No acute facial bone fracture is identified. Alignment of the temporomandibular joints is anatomic. There is no acute skull base fracture. Globes are intact. There is no retrobulbar hematoma. The head CT will be reported separately. Numerous teeth are absent. IMPRESSION: No acute facial fracture. ACT 112: Negative or not required by law. Electronically signed by: Boyd Chandler M.D. 10/25/2022 10:51 AM Femur X-Ray 10/25/22 09:04 SINGLE VIEW PELVIS; 2 VIEWS LEFT HIP; 2 VIEWS LEFT FEMUR CLINICAL HISTORY: Fall. Left leg injury. FINDINGS: An AP view of the pelvis, AP and crosstable lateral views of the left hip, with AP and crosstable lateral views of the left femur are obtained. Comparison is made to pelvic x-ray dated 06/23/2018. The skeletal structures are osteopenic. There is no radiographic evidence of acute fracture involving the hips or bony pelvis. Bilateral hip arthroplasties are in near-anatomic alignment. No periprosthetic lucency is seen. Sclerotic changes noted in the sacroiliac joints. There is chronic deformity of the left proximal femur with a buttress plate in place along the lateral cortex. An intramedullary nail is present in the distal femur and a left knee arthroplasty is in place. There is a comminuted fracture of the distal left femoral metadiaphysis with displaced fragments. The largest fragments are medially displaced by up to 8 mm. Overlying soft tissue edema is noted. Fracture is located around the intramedullary nail and may extend to the left knee arthroplasty. No acute fracture is seen involving the left proximal femur. There is mild atherosclerotic calcification of the femoral artery. Moderate fecal retention is noted in the rectosigmoid. IMPRESSION: 1. No acute fracture is seen involving the hips or bony pelvis. 2. Comminuted periprosthetic fracture of the distal left femoral metadiaphysis with displaced fragments as detailed above. 3. 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 Fracture may extend to the left knee arthroplasty. 4. The left proximal femur appears intact. Electronically signed by: Geoffrey Auguste M.D. 10/25/2022 10:[address] 10/25/22 09:04 CT SCAN OF THE BRAIN WITHOUT IV CONTRAST CLINICAL HISTORY: Fall. COMPARISON STUDY: CT of the brain dated 09/26/2021. TECHNIQUE: Unenhanced axial CT scan of the brain is performed from the vertex to the skull base. A dose lowering technique was utilized adhering to the principles of ALARA. FINDINGS: Brain parenchyma: There is age-related involutional change noting [id number] subcortical and periventricular microangiopathic disease. There is no hemorrhage, mass effect, or evidence of acute territorial ischemia by CT criteria. Jordan-white matter differentiation is preserved. No extra-axial fluid collection is seen. Ventricles, sulci, cisterns: Prominent secondary to involutional change. Intracranial vasculature: There is atherosclerotic calcification of the cavernous carotid and vertebral arteries. Calvarium: The skeletal structures are osteopenic. No depressed calvarial fracture is seen. Sinuses and mastoids: The visualized paranasal sinuses are clear. The mastoid air cells are well pneumatized. Orbits: The bony orbits are grossly intact. IMPRESSION: There is no hemorrhage, mass effect, or evidence of acute territorial ischemia by CT criteria. ACT 112: Negative or not required by law. Electronically signed by: Geoffrey Auguste M.D. 10/25/2022 9:49 AM Hip/Pelvis X-Ray 10/25/22 09:04 SINGLE VIEW PELVIS; 2 VIEWS LEFT HIP; 2 VIEWS LEFT FEMUR CLINICAL HISTORY: Fall. Left leg injury. FINDINGS: An AP view of the pelvis, AP and crosstable lateral views of the left hip, with AP and crosstable lateral views of the left femur are obtained. Comparison is made to pelvic x-ray dated 06/23/2018. The skeletal structures are osteopenic. There is no radiographic evidence of acute fracture involving the hips or bony pelvis. Bilateral hip arthroplasties are in near-anatomic ali gnment. No periprosthetic lucency is seen. Sclerotic changes noted in the sacroiliac joints. There is chronic deformity of the left proximal femur with a buttress plate in place along the lateral cortex. An intramedullary nail is present in the distal femur and a left knee arthroplasty is in place. There is a comminuted fracture of the distal left femoral metadiaphysis with displaced fragments. The largest fragments are medially displaced by up to 8 mm. Overlying soft tissue edema is noted. Fracture is located around the intramedullary nail and may extend to the left knee arthroplasty. No acute fracture is seen involving the left proximal femur. There is mild atherosclerotic calcification of the femoral artery. Moderate fecal retention is noted in the rectosigmoid. IMPRESSION: 1. No acute fracture is seen involving the hips or bony pelvis. 2. Comminuted periprosthetic fracture of the distal left femoral metadiaphysis with displaced fragments as detailed above. 3. 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 Fracture may extend to the left knee arthroplasty. 4. The left proximal femur appears intact. Electronically signed by: Geoffrey Auguste M.D. 10/25/2022 10:56 AM Knee X-Ray 10/25/22 09:04 XR knee LT 1 or 2V routine CLINICAL HISTORY: fall, swelling, trauma COMPARISON: Left knee radiographs October 29, 2018. FINDINGS: Left knee arthroplasty is noted. There is also an intramedullary kalee within the left femur. Note is made of an acute comminuted mildly displaced periprosthetic distal left femoral fracture. Fracture extends from the level the distal shaft of the left femur to the femoral component of the knee arthroplasty. Fracture is displaced 8 mm. There is no proximal left tibial or fibular fracture. IMPRESSION: Acute comminuted mildly displaced periprosthetic distal left femoral fracture, as described above. Fracture is adjacent to the distal aspect of the intramedullary kalee and extends to the femoral component of the left knee arthropathy. ACT 112: Negative or not required by law. Electronically signed by: Boyd Chandler M.D. 10/25/2022 11:03 AM (2) Fall Encounter type: initial encounter Qualified Code(s): W19.XXXA - Unspecified fall, initial encounter (3) Closed femur fracture Encounter type: subsequent encounter Femur location: distal, unspecified portion Fracture healing: with delayed healing Fracture morphology: unspecified fracture morphology Laterality: left Qualified Code(s): S72.402G - Unspecified fracture of lower end of left femur, subsequent encounter for closed fracture with delayed healing
[2022-10-25] MEDS ORDERED: NITROGLYCERIN SL 0.4 MG/TAB TAB SL PRN (15:15)
[2022-10-25] MEDS ORDERED: ALBUTEROL HFA 8 GM INHALER INH PRN (15:15)
[2022-10-25] MEDS ORDERED: ALBUTEROL 0.083% NEBU SOLN 3 ML VIAL INH PRN (15:15)
[2022-10-25] MEDS ORDERED: ALBUT/IPRATROP 3MG/0.5MG NEB 3 ML VIAL INH PRN (15:15)
[2022-10-25] MEDS ORDERED: FLUTICASONE PROPIONATE NA SPR 16 GM BTL NAE PRN (15:15)
[2022-10-25] MEDS ORDERED: ARTIFICIAL TEARS OPR PRN (15:37)
[2022-10-25 16:30] LABS: Appearance Urine Clear (Clear); Bacteria Urine Automated Negative (Negative); Bilirubin Urine Negative (Negative); Blood Urine Negative (Negative); Color Urine Yellow; Epithelial Cell Urine Auto >30 /lpf (0-5); Glucose Urine UA Negative (Negative); Ketones Urine Negative (Negative); Leukocyte Esterase Urine Trace (Negative); Nitrite Urine Negative (Negative); Protein Urine Negative (Negative); RBC Urine Automated 0-4 /hpf (0-4); Urobilinogen Urine Negative (Negative)
[2022-10-25] MEDS: ENOXAPARIN INJ 30 MG/0.3 ML SYR SQ SCH (16:32)
[2022-10-25] MEDS: predniSONE 20 MG TAB PO SCH (19:40)
[2022-10-25] MEDS: ACETAMINOPHEN 1,000 MG/100 ML VIAL IV PRN (19:51)
[2022-10-25] MEDS ORDERED: FLUTICASONE/SALMETEROL 250/50 (ADVAIR) 14 PUFF/1 INHALER INH SCH (21:00)
[2022-10-25] MEDS ORDERED: AMITRIPTYLINE HCL 50 MG TAB PO SCH (21:00)
[2022-10-25] MEDS ORDERED: ALBUMIN 25% 100 mL 25 GM/100 ML VIAL IV ONE (21:42)
--- NOTE | 2022-10-25 21:45 | Communication Note ---
Date of Service: October 25, 2022 BP noted to be 60s, heart rate 130s as per RN. SVT on EKG Patient with decreased responsiveness as per RN. AP Hypotension secondary to recurrent SVT hx SSS history SVT during [facility] [place] last month for left femoral fracture surgery Possible adrenal insufficiency, ongoing prednisone Rx for bronchitis IV amiodarone given hypotension Decadron 1 dose Cardiology consult Re: Recurrent SVT
[2022-10-25] MEDS ORDERED: dexAMETHasone 4 MG in SYRINGE 0 ML IV ONE (21:46)
[2022-10-25] MEDS ORDERED: AMIODARONE IV BOLUS & DRIP IV STA (21:48)
[2022-10-25] MEDS ORDERED: 0.2 MICRON FILTER SET 1 EACH IV STA (21:48)
[2022-10-25] MEDS ORDERED: AMIODARONE / D5W 150 MG/100 ML BAG IV STA (21:48)
[2022-10-25] MEDS ORDERED: STAT IV Infusion **Titration per Protocol STA (21:48)
[2022-10-25] MEDS ORDERED: AMIODARONE / D5W 360 MG/200 ML BAG IV ONE (21:59)
[2022-10-25] MEDS: oxyCODONE HCL IR 5 MG TAB (IMMEDIATE RELEASE) PO PRN (22:12)
[2022-10-25] MEDS: DOCUSATE SODIUM 100 MG CAP PO SCH (22:38)
[2022-10-25] MEDS: CHOLECALCIFEROL 1,000 UNITS 25 MCG TAB PO SCH (22:38)
[2022-10-25] MEDS: METOPROLOL TARTRATE 25 MG TAB PO SCH (22:39)
[2022-10-25] MEDS: FLUTICASONE/VILANTEROL 200/25MCG 14 PUFFS/INHALER INH SCH (22:39)
[2022-10-25] MEDS: GABAPENTIN 600 MG TAB PO SCH (22:39)
[2022-10-25] MEDS ORDERED: ACETAMINOPHEN 1,000 MG/100 ML VIAL IV STA (22:47)
[2022-10-26] MEDS: oxyCODONE HCL IR 5 MG TAB (IMMEDIATE RELEASE) PO PRN ×2 (03:12→09:31)
[2022-10-26] MEDS: ACETAMINOPHEN 1,000 MG/100 ML VIAL IV PRN ×2 (03:51→18:49)
[2022-10-26] MEDS ORDERED: AMIODARONE / D5W 360 MG/200 ML BAG IV SCH (04:00)
[2022-10-26] MEDS: ENOXAPARIN INJ 30 MG/0.3 ML SYR SQ SCH ×2 (04:13→15:10)
[2022-10-26 06:33] LABS: Hematocrit (blood only) 32.6 % (42.0-52.0); Hemoglobin 10.2 g/dl (14.0-18.0); Mean Corpuscular Hemoglobin 32.3 pg (25.0-34.0); Mean Corpuscular Hgb Conc 31.3 g/dL (32.0-36.0); Mean Corpuscular Volume 103.2 fL (80.0-100.0); Mean Platelet Volume 10.2 fL (9.4-12.4); Platelet Count 486 K/uL (130-400); RDW Coefficient of Variation 15.4 % (11.5-14.5); RDW Standard Deviation 57.9 fL (36.4-46.3); Red Blood Count 3.16 M/uL (4.70-6.10); White Blood Count 7.02 K/ul (4.8-10.8)
[2022-10-26 06:54] LABS: Basophils # (auto) 0.03 K/uL (0-0.2); Basophils % (auto) 0.4 %; Echinocytes 2+; Eosinophils # (auto) 0.01 K/uL (0-0.50); Eosinophils % (auto) 0.1 %; Immature Granulocytes # (auto) 0.03 K/uL (0.01-0.20); Immature Granulocytes % (auto) 0.4 %; Lymphocytes # (auto) 0.65 K/uL (1.2-3.4); Lymphocytes % (auto) 9.3 %; Monocytes # (auto) 0.33 K/uL (0.11-0.59); Monocytes % (auto) 4.7 %; Neutrophils # (auto) 5.97 K/uL (1.40-6.50); Neutrophils % (auto) 85.1 %
[2022-10-26 06:58] LABS: Creatinine Clr Calc Pharmacy 56.4 ml/min; Est GFR (African American) 71.2 ml/min; Est GFR (Non-African American) 61.5 ml/min; Potassium 4.7 mmol/L (3.5-5.1)
[2022-10-26] MEDS ORDERED: HYDROmorphone INJ 0.5 MG/0.5 ML SYR IV PRN (07:48)
[2022-10-26] MEDS ORDERED: UMECLIDINIUM/VILANTEROL 62.5/25MCG 7 PUFFS/INHALER INH SCH (09:00)
[2022-10-26] MEDS ORDERED: PANTOprazole 40 MG TAB PO SCH (09:00)
[2022-10-26] MEDS ORDERED: DULoxetine HCL 60 MG CAP PO SCH (09:00)
[2022-10-26] MEDS: POLYETHYLENE (MIRALAX) 17 GM PACK PO SCH (09:32)
[2022-10-26] MEDS: DULoxetine HCL 30 MG CAP PO SCH (09:32)
[2022-10-26] MEDS: FINASTERIDE 5 MG TAB PO SCH (09:32)
[2022-10-26] MEDS: PANTOprazole 40 MG TAB PO SCH (09:32)
[2022-10-26] MEDS: predniSONE 20 MG TAB PO SCH (09:32)
[2022-10-26] MEDS: DOCUSATE SODIUM 100 MG CAP PO SCH ×2 (09:33→20:27)
[2022-10-26] MEDS: CLOPIDOGREL BISULFATE 75 MG TAB PO SCH (09:33)
[2022-10-26] MEDS: CHOLECALCIFEROL 1,000 UNITS 25 MCG TAB PO SCH ×2 (09:33→20:27)
[2022-10-26] MEDS: ATORVASTATIN 40 MG TAB PO SCH (09:33)
[2022-10-26] MEDS: METOPROLOL TARTRATE 25 MG TAB PO SCH ×2 (09:34→20:27)
[2022-10-26] MEDS: LEVOTHYROXINE SODIUM 75 MCG TABLET PO SCH (09:35)
--- NOTE | 2022-10-26 09:38 | Cardiology Consultation ---
Date of Consultation October 26, 2022 Assessment & Plan (1) PSVT (paroxysmal supraventricular tachycardia): (2) Closed femur fracture: -77-year-old male with history of coronary heart disease with remote plain balloon angioplasty of the LAD for which he remains on chronic clopidogrel, and sick sinus syndrome for which she underwent previous implantation of dual- chamber permanent pacemaker. Echocardiogram performed 09/27/2021 as an inpatient revealed moderate concentric left ventricular hypertrophy with normal LVEF in the range of 55 to 60% moderate aortic valve sclerosis without stenosis, mild aortic insufficiency, grade 1 diastolic dysfunction. Per review of outpatient chart, he has a longstanding history of chronic pain disorder and ambulatory dysfunction. He presents with unwitnessed fall episode (mechanical or other) and although he was in sinus rhythm on arrival to the emergency room yesterday he developed tachycardia, with telemetry and EKG consistent with a supraventricular tachycardia with rates in the 130s, and associated hypotension. Blood pressure documented on 10/25/2022 at 2141 was 68/47. Acute delirium present. Significant pain noted overnight and this morning. Due to relative hypotension, amiodarone was selected as being the medication of choice and was effective with regards to conversion to sinus rhythm. We will proceed with pacemaker interrogation which should help determine if this was a supraventricular tachycardia or perhaps in atrial flutter. If he was found to have atrial flutter, I do not think he is a candidate for anticoagulation due to fall episode. Of note, he is status post recent orthopedic surgery, but he has been on Lovenox for DVT prophylaxis while at rehab. Amiodarone has been discontinues. Continue HEALTH POLICY ANALYST atorvastatin, clopidogrel, metoprolol tartrate 25 mg two times per day. Orthopedic surgery consultation has already been placed by the admitting team, which I think is indicated. I spent a total of 65 minutes on the date of service in preparation, delivery, and documentation of the care provided to this patient, excluding any time spent in the performance of separately billed services. History of Present Illness Attending Physician: Chris Gaston MD History of Present Illness Gwyn Shaver is a 77 year old male seen in cardiology consultation per the request of Dr Hartman for the evaluation of tachycardia. His son, Gwyn, was in his room during my assessment. The patient had recently been hospitalized at [facility] an had undergone ORIF of a periprosthetic fracture of the left femur on 10/04/22. Hospital stay notable for acute blood loss anemia for which he received 2 units of PRBCs by transfusion, and had an episode of what was described as SVT for which he received adenosine post operatively.He was also reportedly treated for aspiration pneumonia and a Klebsiella UTI. Patient typically lives At home accompanied by his spouse however since [place] [facility] he had been admitted to [facility] for physical therapy. He was transferred to the emergency department, After having had an unwitnessed fall at [facility]. He arrived in significant pain and was apparently confused. X-ray evaluation revealed suspicion of a nonhealed periprosthetic distal left femur fracture. CT scan of the brain was without acute intracranial pathology. Per review of vital signs his heart rate was in the 60s upon arrival on 11/13 at 8:29 AM. Tachycardia was subsequently observed initially at 1938. Per review of telemetry he was in a sustained narrow complex tachycardia with ventricular rates in the range of 100 to 135 bpm from 2109 until 2359. An IV amiodarone infusion was started, which was discontinued at just after midnight after he had converted to sinus rhythm. Per report of nursing patient was in sustained pain overnight last night at the left upper leg and back pain. Per review of his outpatient chart he has a history of chronic pain. At present, no cardiac complaints, nor did he have complaints last night from a cardiac perspective . Ongoing pain noted despite having received several medications. PAST MEDICAL HISTORY: 1.Symptomatic bradycardia status post dual-chamber [employer] permanent pacemaker placement in 2005. 2.Multivessel coronary artery disease with culprit LAD lesion status post plain old balloon angioplasty in November 2016, unable to insert stent due to acute angle. 3.Diastolic dysfunction with normal LV systolic function. 4.COPD. 5.Hypertension. 6.Hyperlipidemia. 7. Ambulatory dysfunction Allergies Allergy/AdvReac Type Severity Reaction Status Date / Time adhesive Allergy Unknown GOODE SKIN Verified 10/25/22 12:52 No Known Drug Allergies Allergy Unknown . Verified 09/26/21 22:54 latex Allergy Unknown Verified 10/25/22 12:52 Home Medications Medication Instructions Recorded Confirmed Type albuterol sulfate 2.5 mg/3 mL 2.5 mg inhalation Q4H PRN 09/26/21 10/25/22 History (0.083 %) solution for nebulization Shortness Of Breath Or Wheezing atorvastatin 80 mg tablet 80 mg PO DAILY 09/26/21 10/25/22 History cholecalciferol (vitamin D3) 25 25 mcg PO AMHS 09/26/21 10/25/22 History mcg (1,000 unit) tablet (Vitamin D3) clopidogrel 75 mg tablet 75 mg PO DAILY 09/26/21 10/25/22 History docusate sodium 100 mg tablet 100 mg PO BID 09/26/21 10/25/22 History duloxetine 30 mg capsule,delayed 30 mg PO DAILY 09/26/21 10/25/22 History release duloxetine 60 mg capsule,delayed 60 mg PO DAILY 09/26/21 10/25/22 History release finasteride 5 mg tablet 5 mg PO DAILY 09/26/21 10/25/22 History fluticasone propionate 50 2 spray intranasal DAILY PRN 09/26/21 10/25/22 History mcg/actuation nasal ALLERGIES spray,suspension levothyroxine 75 mcg tablet 75 mcg PO DAILY 09/26/21 10/25/22 History nitroglycerin 0.4 mg sublingual 0.4 mg sublingual DIRECTED PRN 09/26/21 10/25/22 History tablet (Nitrostat) Chest Pain pantoprazole 40 mg tablet,delayed 40 mg PO DAILY 09/26/21 10/25/22 History release polyvinyl alcohol 1.4 % eye drops 1 drp OPR QID PRN Pain 09/26/21 10/25/22 History (Artificial Tears (polyvinyl alcohol)) tamsulosin 0.4 mg capsule 0.4 mg PO DAILY 09/26/21 10/25/22 History umeclidinium 62.5 mcg-vilanterol 1 inh inhalation DAILY 09/26/21 10/25/22 History 25 mcg/actuation powdr for inhalation (Anoro Ellipta) acetaminophen 325 mg tablet 650 mg PO Q4 PRN Fever Or Pain 10/25/22 10/25/22 History (Tylenol) albuterol sulfate 90 mcg/actuation 2 puff inhalation Q4 PRN Shortness 10/25/22 10/25/22 History aerosol inhaler Of Breath Or Wheezing amitriptyline 50 mg tablet 50 mg PO HS 10/25/22 10/25/22 History carboxymethylcellulose sodium 1 % 1 drp OPR QID PRN .eye 10/25/22 10/25/22 History eye drops (Artificial Tears pain,irritation,dry eye,itching (carboxymethylcellulose)) enoxaparin 30 mg/0.3 mL 30 mg subcut Q12H 10/25/22 10/25/22 History subcutaneous syringe fluticasone 250 mcg-salmeterol 50 1 inh inhalation BID 10/25/22 10/25/22 History mcg/dose blistr powdr for inhalation (Advair Diskus) gabapentin 600 mg tablet 600 mg PO TID 10/25/22 10/25/22 History ipratropium 0.5 mg-albuterol 3 mg 3 ml inhalation Q6H PRN Shortness 10/25/22 10/25/22 History (2.5 mg base)/3 mL nebulization Of Breath Or Wheezing soln metoprolol tartrate 25 mg tablet 25 mg PO BID 10/25/22 10/25/22 History omeprazole 40 mg capsule,delayed 40 mg PO DAILY 10/25/22 10/25/22 History release ondansetron 4 mg disintegrating 4 mg translingual Q8H PRN Nausea 10/25/22 10/25/22 History tablet oxycodone 5 mg tablet 5 mg PO Q4H PRN Pain 10/25/22 10/25/22 History polyethylene glycol 3350 17 gram 17 g PO DAILY 10/25/22 10/25/22 History oral powder packet (Miralax) prednisone 20 mg tablet 40 mg PO .DAILY FOR 5 DAYS 10/25/22 10/25/22 History vit no.95-ferrous 1 tab PO DAILY 10/25/22 10/25/22 History fumarate 28 mg-folic acid 800 mcg tablet () sennosides 8.6 mg tablet (senna) 17.2 mg PO BID 10/25/22 10/25/22 History Patient History Medical History BPH (benign prostatic hyperplasia) Carotid stenosis Cervical radiculopathy Chronic anticoagulation Chronic hip pain after total replacement of right hip joint Chronic right SI joint pain COPD (chronic obstructive pulmonary disease) Depression Diastolic dysfunction DVT (deep venous thrombosis) (01/29/14) Emphysema of lung Exertional shortness of breath Fingertip amputation History of left heart catheterization (LHC) HLD (hyperlipidemia) HTN (hypertension) Hypothyroidism Intercostal neuralgia Left shoulder pain Lumbar post-laminectomy syndrome Lung infiltrate Myofascial pain Neuritis of left ulnar nerve 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 Osteoarthritis of left knee Pacemaker Post-thoracotomy pain syndrome RLS (restless legs syndrome) Spinal cord stimulator status SSS (sick sinus syndrome) Symptomatic bradycardia Surgical History H/O knee surgery History of hip surgery History of total knee arthroplasty Hx of cholecystectomy Status post insertion of spinal cord stimulator Family History Mother Heart disease Social History Smoking Status: Never smoker Tobacco Type: Cigarettes Hx Alcohol Use: No Hx Substance Use: No Preferred Language: [place] Islander Communication Ability: Effective Safety Engineer Required: No Beliefs That Will Affect Care: None marital status: Current Living Situation: Rehab Current Living Situation Comment: [facility] current occupational status: disabled Feels Safe at Home: Yes Safety Concerns: Feels Safe At This Time Assistive Devices: Oxygen - Continuous Review of Systems Review of Systems: All systems reviewed & are unremarkable except as noted in HPI & below Physical Exam Constitutional: + ill appearing Respiratory: normal respiratory effort, lungs clear to auscultation Cardiovascular: RRR, no murmur, no edema Chest (Breasts): Chest: + pacemaker (pocket clean dry and intact ) Neurologic: PERRL, EOMI, accommodation nl, no face palsy, no dysarthria Results & Data Vital Signs (Past 12 Hours) Vital Signs Temp Pulse Pulse Resp BP BP Pulse Ox 10/26/22 08:18 36.5 C 73 20 115/64 98 10/26/22 04:00 37.0 C 72 20 122/55 L 96 10/26/22 00:05 60 102/61 10/25/22 22:00 128 H 10/25/22 23:05 36.7 C 116 H 18 92/58 L 97 10/25/22 21:59 37.3 C 135 H 20 94/60 L 94 10/25/22 21:41 37.3 C 135 H 20 68/47 L 94 O2 Del Method O2 Flow Rate 10/26/22 08:18 Nasal Cannula 4 10/26/22 04:00 Nasal Cannula 4 10/26/22 00:05 10/25/22 22:00 10/25/22 23:05 Nasal Cannula 4 10/25/22 21:59 Nasal Cannula 10/25/22 21:41 Nasal Cannula 4 Laboratory Results Cardiac Enzymes 10/25/22 Range/Units 10:57 AST 22 (13-39) U/L Troponin I High Sens 15.2 (0-20) pg/ml Coagulation 10/25/22 Range/Units 10:57 PT 11.2 (9.0-12.0) Seconds APTT 21.1 (21.0-31.0) Seconds CBC 10/26/22 Range/Units 05:43 WBC 7.02 (4.8-10.8) K/ul RBC 3.16 L (4.70-6.10) M/uL Hgb 10.2 L (14.0-18.0) g/dl Hct 32.6 L (42.0-52.0) % Plt Count 486 H (130-400) K/uL Neut # (Auto) 5.97 (1.40-6.50) K/uL Lymph # (Auto) 0.65 L (1.2-3.4) K/uL Dade # (Auto) 0.33 (0.11-0.59) K/uL Eos # (Auto) 0.01 (0-0.50) K/uL Baso # (Auto) 0.03 (0-0.2) K/uL Comprehensive Metabolic Panel 10/25/22 10/26/22 Range/Units 10:57 05:43 Sodium 137 137 (136-145) mmol/L Potassium 4.1 4.7 (3.5-5.1) mmol/L Chloride 106 104 (98-107) mmol/L Carbon Dioxide 28 26 (21-32) mmol/L BUN 12 15 (6-23) mg/dl Creatinine 1.18 1.15 (0.6-1.4) mg/dl Glucose 130 H 127 H (70-99(Fasting)) mg/dl Calcium 9.0 9.0 (8.6-10.3) mg/dl AST 22 (13-39) U/L ALT 19 (7-52) U/L Alkaline Phosphatase 132 H (34-104) U/L Total Protein 7.2 (6.0-8.3) gm/dl Albumin 3.9 (3.4-5.0) gm/dl Diagnostic Findings EKG tracings performed 10/25/2022 reviewed. There are a total of 3 tracings, the initial tracing reveals sinus rhythm with atrial paced rhythm in the 60s. 2 subsequent tracings revealed narrow complex tachycardia in the 130s consistent with a supraventricular tachycardia without significant repolarization changes. A chest x-ray was performed on arrival revealing poor inspiratory effort, radiology report is reviewed with noted concerns of possible mild pulmonary vascular congestion and small pleural effusions. Per my review of the image, it is technically limited, and the patient is not clinically volume overloaded. (2) Closed femur fracture Encounter type: subsequent encounter Femur location: distal, unspecified portion Fracture healing: with delayed healing Fracture morphology: unspecified fracture morphology Laterality: left Qualified Code(s): S72.402G - Unspecified fracture of lower end of left femur, subsequent encounter for closed fracture with delayed healing
[2022-10-26] MEDS ORDERED: BACLOFEN 10 MG TAB PO ONE (09:50)
[2022-10-26] MEDS: TAMSULOSIN HCL 0.4 MG CAP PO SCH (10:19)
[2022-10-26] MEDS: FLUTICASONE/VILANTEROL 200/25MCG 14 PUFFS/INHALER INH SCH (10:19)
--- NOTE | 2022-10-26 11:40 | Orthopedic Consultation ---
Date of Consultation October 26, 2022 Assessment & Plan (1) Closed femur fracture: I discussed and reviewed imaging with patient and son. He is a well-known patient to Dr. Yip and is requesting to be seen by him. This was made aware to the RN who contacted Dr. Yip's office and they are aware. I was able to review imaging from [facility] and compared to previous imaging that was done in the ER last night. The kalee is in place spanning his previous periprosthetic fracture. At this time I am recommending patient be placed in a knee immobilizer until he is seen by Dr. Yip. Weightbearing will be determined at that time. Most imperative is to control his pain for his comfort and to allow further evaluation. Recommend continuing with primary services for management of this. He was added a muscle relaxant to see if this assist with his pain. He may utilize ice over the immobilizer for comfort. Case was discussed with Dr. Best via cell phone and he is aware that Dr. Yip is being requested to manage case.Patient and son verbalized understanding and are in agreement with plan. Present on Admission?: Yes Supervising Physician Co-Signing Physician Notes I agree with the above findings and plan of care discussed with my PA. Dr. Yip has seen the patient and has assumed his care as requested by the patient. History of Present Illness Attending Physician: Chris Gaston MD History of Present Illness Patient is a 77-year-old male and orthopedic services were asked to consult on patient. Patient was seen bedside with his son present and RN. He appears to be in pain. He and his son explains that [facility] 3-1[facility]2 weeks ago and had a kalee placed in the left leg for femur fracture. His son reports he has been in [facility] and has been doing very well until he had a fall yesterday. The fall was unwitnessed. He was transported to [facility] ER where he had imaging. The imaging revealed a comminuted femur periprosthetic fracture. I reviewed the ER note where an orthopedic surgeon from [place] was contacted last night by the ER who was able to review imaging from 09/1722 in [facility] system and was able to compare to imaging that was taken last night. Per ER note this was stable and did not appear to be changed. Patient is reporting pain over the left thigh negative for any groin or knee pain at this time. There are periods throughout the exam where he is fine and then appears to get a spasm and has excruciating pain. He is not reporting any paresthesia or any other injuries. He denies hitting his head or any loss of consciousness. Allergies Allergy/AdvReac Type Severity Reaction Status Date / Time adhesive Allergy Unknown GOODE SKIN Verified 10/25/22 12:52 No Known Drug Allergies Allergy Unknown . Verified 09/26/21 22:54 latex Allergy Unknown Verified 10/25/22 12:52 Home Medications Medication Instructions Recorded Confirmed Type albuterol sulfate 2.5 mg/3 mL 2.5 mg inhalation Q4H PRN 09/26/21 10/25/22 History (0.083 %) solution for nebulization Shortness Of Breath Or Wheezing atorvastatin 80 mg tablet 80 mg PO DAILY 09/26/21 10/25/22 History cholecalciferol (vitamin D3) 25 25 mcg PO AMHS 09/26/21 10/25/22 History mcg (1,000 unit) tablet (Vitamin D3) clopidogrel 75 mg tablet 75 mg PO DAILY 09/26/21 10/25/22 History docusate sodium 100 mg tablet 100 mg PO BID 09/26/21 10/25/22 History duloxetine 30 mg capsule,delayed 30 mg PO DAILY 09/26/21 10/25/22 History release duloxetine 60 mg capsule,delayed 60 mg PO DAILY 09/26/21 10/25/22 History release finasteride 5 mg tablet 5 mg PO DAILY 09/26/21 10/25/22 History fluticasone propionate 50 2 spray intranasal DAILY PRN 09/26/21 10/25/22 History mcg/actuation nasal ALLERGIES spray,suspension levothyroxine 75 mcg tablet 75 mcg PO DAILY 09/26/21 10/25/22 History nitroglycerin 0.4 mg sublingual 0.4 mg sublingual DIRECTED PRN 09/26/21 10/25/22 History tablet (Nitrostat) Chest Pain pantoprazole 40 mg tablet,delayed 40 mg PO DAILY 09/26/21 10/25/22 History release polyvinyl alcohol 1.4 % eye drops 1 drp OPR QID PRN Pain 09/26/21 10/25/22 History (Artificial Tears (polyvinyl alcohol)) tamsulosin 0.4 mg capsule 0.4 mg PO DAILY 09/26/21 10/25/22 History umeclidinium 62.5 mcg-vilanterol 1 inh inhalation DAILY 09/26/21 10/25/22 History 25 mcg/actuation powdr for inhalation (Anoro Ellipta) acetaminophen 325 mg tablet 650 mg PO Q4 PRN Fever Or Pain 10/25/22 10/25/22 History (Tylenol) albuterol sulfate 90 mcg/actuation 2 puff inhalation Q4 PRN Shortness 10/25/22 10/25/22 History aerosol inhaler Of Breath Or Wheezing amitriptyline 50 mg tablet 50 mg PO HS 10/25/22 10/25/22 History carboxymethylcellulose sodium 1 % 1 drp OPR QID PRN .eye 10/25/22 10/25/22 History eye drops (Artificial Tears pain,irritation,dry eye,itching (carboxymethylcellulose)) enoxaparin 30 mg/0.3 mL 30 mg subcut Q12H 10/25/22 10/25/22 History subcutaneous syringe fluticasone 250 mcg-salmeterol 50 1 inh inhalation BID 10/25/22 10/25/22 History mcg/dose blistr powdr for inhalation (Advair Diskus) gabapentin 600 mg tablet 600 mg PO TID 10/25/22 10/25/22 History ipratropium 0.5 mg-albuterol 3 mg 3 ml inhalation Q6H PRN Shortness 10/25/22 10/25/22 History (2.5 mg base)/3 mL nebulization Of Breath Or Wheezing soln metoprolol tartrate 25 mg tablet 25 mg PO BID 10/25/22 10/25/22 History omeprazole 40 mg capsule,delayed 40 mg PO DAILY 10/25/22 10/25/22 History release ondansetron 4 mg disintegrating 4 mg translingual Q8H PRN Nausea 10/25/22 10/25/22 History tablet oxycodone 5 mg tablet 5 mg PO Q4H PRN Pain 10/25/22 10/25/22 History polyethylene glycol 3350 17 gram 17 g PO DAILY 10/25/22 10/25/22 History oral powder packet (Miralax) prednisone 20 mg tablet 40 mg PO .DAILY FOR 5 DAYS 10/25/22 10/25/22 History vit no.95-ferrous 1 tab PO DAILY 10/25/22 10/25/22 History fumarate 28 mg-folic acid 800 mcg tablet () sennosides 8.6 mg tablet (senna) 17.2 mg PO BID 10/25/22 10/25/22 History Patient History Medical History BPH (benign prostatic hyperplasia) Carotid stenosis Cervical radiculopathy Chronic anticoagulation Chronic hip pain after total replacement of right hip joint Chronic right SI joint pain COPD (chronic obstructive pulmonary disease) Depression Diastolic dysfunction DVT (deep venous thrombosis) (01/29/14) Emphysema of lung Exertional shortness of breath Fingertip amputation History of left heart catheterization (LHC) HLD (hyperlipidemia) HTN (hypertension) Hypothyroidism Intercostal neuralgia Left shoulder pain Lumbar post-laminectomy syndrome Lung infiltrate Myofascial pain Neuritis of left ulnar nerve 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 Osteoarthritis of left knee Pacemaker Post-thoracotomy pain syndrome RLS (restless legs syndrome) Spinal cord stimulator status SSS (sick sinus syndrome) Symptomatic bradycardia Surgical History H/O knee surgery History of hip surgery History of total knee arthroplasty Hx of cholecystectomy Status post insertion of spinal cord stimulator Family History Mother Heart disease Social History Smoking Status: Never smoker Tobacco Type: Cigarettes Hx Alcohol Use: No Hx Substance Use: No Preferred Language: Romansh Communication Ability: Effective Corner Cutter Required: No Beliefs That Will Affect Care: None marital status: Current Living Situation: Rehab Current Living Situation Comment: [facility] current occupational status: disabled Feels Safe at Home: Yes Safety Concerns: Feels Safe At This Time Assistive Devices: Oxygen - Continuous Review of Systems Review of Systems: All systems reviewed & are unremarkable except as noted in Subjective Physical Exam Physical Exam: Exam was focused on left lower extremity Skin over left lower extremity reveals previous incisions that are healing negative for erythema or edema over the left lower extremity. Negative for any fluctuance or induration surrounding these areas. Appears he had brendon that were recently removed. Patient has no palpable tenderness over groin or lateral hip. There is tenderness over thigh negative for any tenderness over the knee joint. He has no palpable tenderness along the distal left lower extremity and ankle. There is a resolving ecchymosis over the inner aspect of the left proximal thigh. Appears to have periarticular edema over the left knee. He is very guarded when attempting to move the leg. I am able to straighten the leg fully and flex the knee to approximately 30 degrees. He has pain in is very guarded and unable to assess the hip. He is able to move the right lower extremity in all planes without any limitations. He is able to actively dorsiflex and plantarflex left ankle when prompted sensation is intact over left lower extremity. Constitutional: cooperative Appears to be in acute distress throughout the exam has moments of comfort Eyes: EOM intact bilaterally ENMT: external ear and nose normal, oropharynx normal Respiratory: normal respiratory effort Results & Data Vital Signs (Past 12 Hours) Vital Signs Temp Pulse Resp BP BP Pulse Ox O2 Del Method 10/26/22 08:18 36.5 C 73 20 115/64 98 Nasal Cannula 10/26/22 04:00 37.0 C 72 20 122/55 L 96 Nasal Cannula 10/26/22 00:05 60 102/61 O2 Flow Rate 10/26/22 08:18 4 10/26/22 04:00 4 10/26/22 00:05 (1) Closed femur fracture Encounter type: subsequent encounter Femur location: distal, unspecified portion Fracture healing: with delayed healing Fracture morphology: unspecified fracture morphology Laterality: left Qualified Code(s): S72.402G - Unspecified fracture of lower end of left femur, subsequent encounter for closed fracture with delayed healing
[2022-10-26] MEDS: HYDROmorphone INJ 0.5 MG/0.5 ML SYR IV PRN ×3 (11:48→23:45)
--- NOTE | 2022-10-26 14:16 | Orthopedic Progress Note ---
Date of Service October 26, 2022 Assessment & Plan (1) Closed femur fracture: Weightbearing as tolerated LLE Knee immobilzer for comfort Continue with current pain control regimen Continue with Baclofen for muscle spasms Would be beneficial to get patient up and to a chair to help with muscle spasms in his lumbar spine and LLE No surgery planned at this time Dr. Yip was at bedside and conducted the history and PE. Mark Pascal is a 77 y/o male who sustained fall a month ago. He underwent an IM nail in his LLE in [place]. He was placed in rehab at [facility] post operatively. He fell again at [facility] yesterday and was brought to [facility] for evaluation. Xrays had shown no new fractures in the LLE. He continues to have pain and muscle spasms which are non-discript in location. He has been in a knee immobilizer and WBAT however he has been bed bound because of pain. Review of Systems All systems reviewed & are unremarkable except as noted in HPI & below. Physical Exam Surgical incisions in LLE are intact, no drainage, no erythema. No swelling in LLE. No deformities were noted upon inspection of his LLE. No evidence of ulcerations. Neurovascularly intact Results & Data Results & Data Laboratory Results . Diagnostic Findings . PG Care Time/CCT Total # of Minutes Spent Total Time Spent with Patient: Total time spent is greater than 50% in coordination of care (as documented) at patient's floor/unit and/or counseling patient: Coding Level of Care Code 88254 SUB INP/OBS CARE 07/18MIN Diagnoses Closed femur fracture S72.402G Encounter type: subsequent encounter Femur location: distal, unspecified portion Fracture healing: with delayed healing Fracture morphology: unspecified fracture morphology Laterality: left (1) Closed femur fracture Encounter type: subsequent encounter Femur location: distal, unspecified portion Fracture healing: with delayed healing Fracture morphology: unspecified fracture morphology Laterality: left Qualified Code(s): S72.402G - Unspecified fracture of lower end of left femur, subsequent encounter for closed fracture with delayed healing
[2022-10-26] MEDS: BACLOFEN 10 MG TAB PO PRN ×2 (15:09→21:37)
--- NOTE | 2022-10-26 15:41 | Hospitalist Progress Note ---
Date of Service October 26, 2022 Assessment & Plan (1) Altered mental status: (2) Fall: (3) Closed femur fracture: (4) Hypothyroidism: (5) Asthma, allergic: (6) Atherosclerotic heart disease of [place] coronary artery without angina pectoris: (7) Deep vein thrombosis of distal lower extremity: (8) Major depressive disorder: (9) BPH (benign prostatic hyperplasia): (10) COPD (chronic obstructive pulmonary disease): (11) Diastolic dysfunction: (12) SSS (sick sinus syndrome): (13) Pacemaker: (14) HTN (hypertension): (15) HLD (hyperlipidemia): (16) Depression: (17) RLS (restless legs syndrome): Plan Patient is a 77 yr male with H/O Sick sinus syndrome s/p pacemaker placement, diastolic CHF, BPH, Chronic pain syndrome, Dyslipidemia, CAD, MDD, Mendez's, GERD, HTN, COPD/asthma, RLS, Hx of DVT who presents after an unwitnessed fall from [facility]. Pt reportedly developed AMS after receiving 10mg of morphine en route to the hospital. Acute comminuted mildly displaced periprosthetic distal left femoral fracture H/O Left Hip surgery with IM nail recently Secondary to fall --Knee X ray:Acute comminuted mildly displaced periprosthetic distal left femoral fracture, as described above. Fracture is adjacent to the distal aspect of the intramedullary kalee and extends to the femoral component of the left knee arthropathy. --Hip/Pelvic X ray:No acute fracture is seen involving the hips or bony pelvis. Comminuted periprosthetic fracture of the distal left femoral metadiaphysis with displaced fragments as detailed above. 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 Fracture may extend to the left knee arthroplasty. The left proximal femur appears intact. --CT Head:There is no hemorrhage, mass effect, or evidence of acute territorial ischemia by CT criteria. -- Knee immobilizer for comfort Weightbearing as tolerated to the left lower extremity Continue pain control Appreciate orthopedics input PT OT as able Acute metabolic encephalopathy Likely secondary to pain medications --CT head:There is no hemorrhage, mass effect, or evidence of acute territorial ischemia by CT criteria. Minimize Narcotics as able Paroxysmal supraventricular tachycardia Pacemaker interrogation done: SVT, atrial fibrillation/atrial flutter. Appreciate cardiology input Amiodarone discontinued Continue metoprolol Poor candidate for anticoagulation If recurrence of tachycardia, will use Adenosine/amiodarone as needed Chronic conditions: CAD, CHF, HLD, HLD continue Plavix, metoprolol, statin BPH On Flomax Chronic pain syndrome Decreased Cymbalta dose Resumed gabapentin Hypothyroidism continue levothyroxine COPD/asthma continue home inhalers Also on prednisone MDD RLS Continue home meds DVT Px: Lovenox SQ Code Status: Full Code Admission and Anticipated Discharge Date Admission Date: October 25, 2022 Subjective Patient is seen and examined at bedside States having significant leg pain radiating to back, associated with spasms Unable to provide much history due to intractable pain Discussed with orthopedics and pain management today Also discussed with patient's family at bedside Review of Systems Review of Systems: Other Physical Exam Physical Exam: Physical Exam: Vitals signs as noted above General Appearance:Moderately built and nourished, Apparent distress due to pain/spasms Head: normocephalic, Atraumatic Eyes: normal inspection, EOMI Neck: supple, Trachea midline Respiratory/Chest: Normal breath sounds, CTA, No accessory muscle use Cardiovascular: S1, S2, No murmur Abdomen/GI:Soft, Non tender, Bowel sounds present Extremities/Musculoskeletal:normal inspection, no edema Neurologic/Psych:AAOX2, grossly no focal deficits Skin: normal color, warm Results & Data Results & Data Vital Signs (Past 12 Hours) Vital Signs Temp Pulse Pulse Resp BP BP Pulse Ox 10/26/22 08:00 74 10/26/22 08:00 10/26/22 12:05 36.7 C 67 20 118/51 L 96 10/26/22 08:18 36.5 C 73 20 115/64 98 10/26/22 04:00 37.0 C 72 20 122/55 L 96 O2 Del Method O2 Flow Rate 10/26/22 08:00 10/26/22 08:00 Nasal Cannula 3 10/26/22 12:05 Nasal Cannula 2 10/26/22 08:18 Nasal Cannula 4 10/26/22 04:00 Nasal Cannula 4 (2) Fall Encounter type: initial encounter Qualified Code(s): W19.XXXA - Unspecified fall, initial encounter (3) Closed femur fracture Encounter type: subsequent encounter Femur location: distal, unspecified portion Fracture healing: with delayed healing Fracture morphology: unspecified fracture morphology Laterality: left Qualified Code(s): S72.402G - Unspecified fracture of lower end of left femur, subsequent encounter for closed fracture with delayed healing
[2022-10-26] MEDS: GABAPENTIN 600 MG TAB PO SCH (20:46)
--- NOTE | 2022-10-26 20:50 | Electrocardiogram Report ---
Test Reason : Blood Pressure : / mmHG Vent. Rate : 067 BPM Atrial Rate : 067 BPM P-R Int : 234 ms QRS Dur : 096 ms QT Int : 432 ms P-R-T Axes : 000 -17 111 degrees QTc Int : 456 ms Atrial-paced rhythm with prolonged AV conduction Left ventricular hypertrophy with repolarization abnormality ( R in aVL ) Abnormal ECG When compared with ECG of 08-JUN-2022 17:01, Prior tracing has lead reversal Confirmed by Joseph Grajeda ([id number]) on 10/26/2022 8:50:23 PM Referred By: REFERRED SELF Confirmed By:Joseph Grajeda
--- NOTE | 2022-10-26 21:37 | Electrocardiogram Report ---
Test Reason : Blood Pressure : / mmHG Vent. Rate : 137 BPM Atrial Rate : 000 BPM P-R Int : 000 ms QRS Dur : 096 ms QT Int : 308 ms P-R-T Axes : 000 -26 130 degrees QTc Int : 465 ms Supraventricular tachycardia Left ventricular hypertrophy with repolarization abnormality ( R in aVL , [place] product ) Inferior infarct , age undetermined Abnormal ECG When compared with ECG of 25-OCT-2022 08:48, (unconfirmed) Vent. rate has increased BY 70 BPM Inferior infarct is now Present Confirmed by Joseph Grajeda ([id number]) on 10/26/2022 9:37:13 PM Referred By: REFERRED SELF Confirmed By:Joseph Grajeda
--- NOTE | 2022-10-26 21:46 | Electrocardiogram Report ---
Test Reason : Blood Pressure : / mmHG Vent. Rate : 135 BPM Atrial Rate : 120 BPM P-R Int : 000 ms QRS Dur : 094 ms QT Int : 318 ms P-R-T Axes : 000 -04 143 degrees QTc Int : 477 ms Poor data quality, interpretation may be adversely affected Supraventricular tachycardia Left ventricular hypertrophy with repolarization abnormality Abnormal ECG When compared with ECG of 25-OCT-2022 19:05, (unconfirmed) No significant change Confirmed by Joseph Grajeda ([id number]) on 10/26/2022 9:45:50 PM Referred By: REFERRED SELF Confirmed By:Joseph Grajeda
--- NOTE | 2022-10-26 22:29 | Electrocardiogram Report ---
Test Reason : Blood Pressure : / mmHG Vent. Rate : 064 BPM Atrial Rate : 064 BPM P-R Int : 254 ms QRS Dur : 088 ms QT Int : 434 ms P-R-T Axes : 000 -11 129 degrees QTc Int : 447 ms Poor data quality, interpretation may be adversely affected Atrial-paced rhythm with prolonged AV conduction Left ventricular hypertrophy with repolarization abnormality Anteroseptal infarct , age undetermined Abnormal ECG When compared with ECG of 25-OCT-2022 21:46, (unconfirmed) Supraventricular tachycardia is no longer Present Confirmed by Joseph Grajeda ([id number]) on 10/26/2022 10:29:09 PM Referred By: REFERRED SELF Confirmed By:Joseph Grajeda
[2022-10-27 05:29] LABS: Hematocrit (blood only) 31.3 % (42.0-52.0); Hemoglobin 10.3 g/dl (14.0-18.0); Mean Corpuscular Hemoglobin 32.3 pg (25.0-34.0); Mean Corpuscular Hgb Conc 32.9 g/dL (32.0-36.0); Mean Corpuscular Volume 98.1 fL (80.0-100.0); Mean Platelet Volume 10.4 fL (9.4-12.4); Platelet Count 486 K/uL (130-400); RDW Coefficient of Variation 14.7 % (11.5-14.5); RDW Standard Deviation 53.4 fL (36.4-46.3); Red Blood Count 3.19 M/uL (4.70-6.10); White Blood Count 7.79 K/ul (4.8-10.8)
[2022-10-27] MEDS: LEVOTHYROXINE SODIUM 75 MCG TABLET PO SCH ×2 (05:38→06:31)
[2022-10-27] MEDS: BACLOFEN 10 MG TAB PO PRN ×3 (05:38→22:40)
[2022-10-27 05:39] LABS: BUN Creatinine Ratio 20.8 (10-20); Calcium 9.3 mg/dl (8.6-10.3); Creatinine Clr Calc Pharmacy 67.6 ml/min; Est GFR (African American) 88.6 ml/min; Est GFR (Non-African American) 76.5 ml/min; Magnesium 2.4 mg/dl (1.7-2.4)
[2022-10-27] MEDS: CHOLECALCIFEROL 1,000 UNITS 25 MCG TAB PO SCH ×2 (09:43→22:27)
[2022-10-27] MEDS: GABAPENTIN 600 MG TAB PO SCH (09:43)
[2022-10-27] MEDS: METOPROLOL TARTRATE 25 MG TAB PO SCH ×2 (09:43→22:39)
[2022-10-27] MEDS: PANTOprazole 40 MG TAB PO SCH (09:44)
[2022-10-27] MEDS: FINASTERIDE 5 MG TAB PO SCH (09:44)
[2022-10-27] MEDS: TAMSULOSIN HCL 0.4 MG CAP PO SCH (09:44)
[2022-10-27] MEDS: ATORVASTATIN 40 MG TAB PO SCH (09:44)
[2022-10-27] MEDS: DULoxetine HCL 30 MG CAP PO SCH (09:44)
[2022-10-27] MEDS: predniSONE 20 MG TAB PO SCH (09:44)
[2022-10-27] MEDS: CLOPIDOGREL BISULFATE 75 MG TAB PO SCH (09:45)
[2022-10-27] MEDS: ENOXAPARIN INJ 40 MG/0.4 ML SYR SQ SCH (09:45)
[2022-10-27] MEDS: DOCUSATE SODIUM 100 MG CAP PO SCH ×2 (09:52→22:26)
[2022-10-27] MEDS: POLYETHYLENE (MIRALAX) 17 GM PACK PO SCH (09:52)
[2022-10-27] MEDS: hydrALAZINE HCL 20 MG/ML VIAL IV PRN (09:53)
[2022-10-27] MEDS: cefTRIAXone SODIUM 2,000 MG in DEXTROSE 5% AD-VAN 50 ML IV SCH (10:18)
[2022-10-27] MEDS: FLUTICASONE/VILANTEROL 200/25MCG 14 PUFFS/INHALER INH SCH (10:26)
--- NOTE | 2022-10-27 10:39 | Cardiology Progress Note ---
Date of Service October 27, 2022 Assessment & Plan (1) PSVT (paroxysmal supraventricular tachycardia): (2) Closed femur fracture: Plan: -77-year-old male with history of coronary heart disease with remote plain balloon angioplasty of the LAD for which he remains on chronic clopidogrel, and sick sinus syndrome for which she underwent previous implantation of dual- chamber permanent pacemaker. Echocardiogram performed 09/27/2021 as an inpatient revealed moderate concentric left ventricular hypertrophy with normal LVEF in the range of 55 to 60% moderate aortic valve sclerosis without stenosis, mild aortic insufficiency, grade 1 diastolic dysfunction. Per review of outpatient chart, he has a longstanding history of chronic pain disorder and ambulatory dysfunction. He presents with unwitnessed fall episode (mechanical or other) and although he was in sinus rhythm on arrival to the emergency room yesterday he developed tachycardia, with telemetry and EKG consistent with a supraventricular tachycardia with rates in the 130s, and associated hypotension. Blood pressure documented on 10/25/2022 at 2141 was 68/47. Acute delirium present. Significant pain noted overnight and this morning. Due to relative hypotension, amiodarone was selected as being the medication of choice and was effective with regards to conversion to sinus rhythm. We will proceed with pacemaker interrogation which should help determine if this was a supraventricular tachycardia or perhaps in atrial flutter. If he was found to have atrial flutter, I do not think he is a candidate for anticoagulation due to fall episode. Of note, he is status post recent orthopedic surgery, but he has been on Lovenox for DVT prophylaxis while at rehab. Amiodarone has been discontinues. Continue [place] atorvastatin, clopidogrel, metoprolol tartrate 25 mg two times per day. Orthopedic surgery consultation has already been placed by the admitting team, which I think is indicated. I spent a total of 65 minutes on the date of service in preparation, delivery, and documentation of the care provided to this patient, excluding any time spent in the performance of separately billed services. 10/27/2022 No further recurrences of arrhythmias with normal pacemaker function. Arrhythmia likely being driven by acute pain and injury now with good tolerance. Patient being managed conservatively Would continue metoprolol 25 mg twice per day blood pressure will certainly allow Admission and Anticipated Discharge Date Admission Date: October 25, 2022 Subjective Patient seen and examined, chart, medications, telemetry reviewed. Patient unable to provide any additional information due to underlying dementia but no acute complaints today, working with physical therapy Telemetry without further arrhythmia Review of Systems Review of Systems: Unobtainable due to cognitive status Physical Exam Constitutional: no acute distress Eyes: PERRL, conjunctivae normal, anicteric sclerae ENMT: external ear and nose normal, oropharynx normal Neck: trachea midline, no thyromegaly Respiratory: normal respiratory effort, lungs clear to auscultation Cardiovascular: RRR, no murmur, no edema Chest (Breasts): Chest: + pacemaker (pocket clean dry and intact ) Neurologic: PERRL, EOMI, accommodation nl, no face palsy, no dysarthria Results & Data Vital Signs (Past 12 Hours) Vital Signs Temp Pulse Resp BP BP Pulse Ox O2 Del Method 10/27/22 09:00 Nasal Cannula 10/27/22 07:43 36.5 C 62 19 197/91 H 93 Nasal Cannula 10/27/22 03:00 36.5 C 65 21 126/68 91 Nasal Cannula 10/26/22 23:00 36.7 C 64 23 149/95 H 93 Nasal Cannula O2 Flow Rate 10/27/22 09:00 2 10/27/22 07:43 3 10/27/22 03:00 4 10/26/22 23:00 4 Laboratory Results Laboratory Results - last 24 hr 10/27/22 10/27/22 10/27/22 04:41 04:41 04:41 WBC 7.79 RBC 3.19 L Hgb 10.3 L Hct 31.3 L MCV 98.1 MCH 32.3 MCHC 32.9 RDW Std Deviation 53.4 H RDW Coeff of [place] 14.7 H Plt Count 486 H MPV 10.4 Sodium 138 Potassium 4.0 Chloride 106 Carbon Dioxide 25 Anion Gap 7 BUN 20 Creatinine 0.96 Est Cr Clr Drug Dosing 67.6 Est GFR ( Amer) 88.6 Est GFR (Non-Af Amer) 76.5 BUN/Creatinine Ratio 20.8 H Glucose 116 H Calcium 9.3 Magnesium 2.4 TSH 2.144 Medications Administered Current Medications Acetaminophen (Acetaminophen 325 Mg Tab) 650 mg PO Q4H PRN PRN Reason: Pain or Fever Stop: 11/24/22 14:10 Al Hydrox/Mg Hydrox/Simethicone (Aluminum/Magnesium Susp 30 Ml Udc) 15 ml PO Q4H PRN PRN Reason: Dyspepsia Stop: 11/24/22 14:10 Albuterol (Albuterol 0.083% Nebu Soln 3 Ml Vial) 2.5 mg INH Q4H PRN; Protocol PRN Reason: Shortness Of Breath Or Wheezing Stop: 11/24/22 15:14 Albuterol (Albuterol Hfa 8 Gm Inhaler) 2 puffs INH Q4 PRN PRN Reason: Shortness Of Breath Or Wheezing Stop: 11/24/22 15:14 Albuterol (Albut/Ipratrop 3mg/0.5mg Neb 3 Ml Vial) 3 ml INH Q6H PRN; Protocol PRN Reason: Shortness Of Breath Or Wheezing Stop: 11/24/22 15:14 Amitriptyline HCl (Amitriptyline Hcl 50 Mg Tab) 50 mg PO HS FELIX Stop: 11/24/22 20:59 Last Admin: 10/25/22 22:49 Dose: Not Given Artificial Tears (Artificial Tears) 1 drops OPR QID PRN PRN Reason: .eye pain,irritation,dry eye,itching Stop: 11/24/22 15:36 Atorvastatin Calcium (Atorvastatin 40 Mg Tab) 80 mg PO DAILY FELIX Stop: 11/25/22 08:59 Last Admin: 10/27/22 09:44 Dose: 80 mg Baclofen (Baclofen 10 Mg Tab) 10 mg PO TID PRN PRN Reason: Spasms Stop: 11/25/22 13:59 Last Admin: 10/27/22 09:42 Dose: 10 mg Clopidogrel Bisulfate (Clopidogrel Bisulfate 75 Mg Tab) 75 mg PO DAILY FELIX Stop: 11/25/22 08:59 Last Admin: 10/27/22 09:45 Dose: 75 mg Docusate Sodium (Docusate Sodium 100 Mg Cap) 100 mg PO BID FELIX Stop: 11/24/22 20:59 Last Admin: 10/27/22 09:52 Dose: 100 mg Duloxetine HCl (Duloxetine Hcl 30 Mg Cap) 30 mg PO DAILY FELIX Stop: 11/25/22 08:59 Last Admin: 10/27/22 09:44 Dose: 30 mg Duloxetine HCl (Duloxetine Hcl 60 Mg Cap) 60 mg PO DAILY FELIX Stop: 11/25/22 08:59 Enoxaparin Sodium (Enoxaparin Inj 40 Mg/0.4 Ml Syr) 40 mg SQ QAM FELIX Stop: 11/26/22 08:59 Last Admin: 10/27/22 09:45 Dose: 40 mg Finasteride (Finasteride 5 Mg Tab) 5 mg PO DAILY FELIX Stop: 11/25/22 08:59 Last Admin: 10/27/22 09:44 Dose: 5 mg Fluticasone Propionate (Fluticasone Propionate Na Spr 16 Gm Btl) 2 sprays JOSÉ MIGUEL DAILY PRN PRN Reason: ALLERGIES Stop: 11/24/22 15:14 Fluticasone/Vilanterol (Fluticasone/Vilanterol 200/25mcg 14 Puffs/Inhaler) 1 puffs INH DAILY FELIX Stop: 11/24/22 20:59 Last Admin: 10/27/22 10:26 Dose: 1 puffs Gabapentin (Gabapentin 600 Mg Tab) 600 mg PO TID FELIX Stop: 11/24/22 20:59 Last Admin: 10/27/22 09:43 Dose: 600 mg Hydralazine HCl (Hydralazine Hcl 20 Mg/Ml Vial) 5 mg IV Q6H PRN PRN Reason: Hypertension SBP>180orDBP>100 Stop: 11/26/22 09:32 Last Admin: 10/27/22 09:53 Dose: 5 mg Hydromorphone HCl (Hydromorphone Inj 0.5 Mg/0.5 Ml Syr) 0.5 mg IV Q3HWA PRN PRN Reason: Pain Stop: 11/09/22 07:47 Last Admin: 10/26/22 23:45 Dose: 0.5 mg Acetaminophen (Ofirmev) 1,000 mg in 100 mls @ 400 mls/hr IV Q8H PRN PRN Reason: pain Stop: 10/28/22 15:30 Last Infusion: 10/26/22 19:04 Dose: Infused Ceftriaxone Sodium 2,000 mg/ (Dextrose) 70 mls @ 100 mls/hr IV Q24H [facility]; Protocol Stop: 11/01/22 09:59 Last Admin: 10/27/22 10:18 Dose: 100 mls/hr Levothyroxine Sodium (Levothyroxine Sodium 75 Mcg Tablet) 75 mcg PO DAILYBB [facility] Stop: 11/25/22 06:29 Last Admin: 10/27/22 06:31 Dose: Not Given Magnesium Hydroxide (Magnesium Hydroxide Susp 30 Ml Udc) 30 ml PO Q12H PRN PRN Reason: Constipation Stop: 11/24/22 14:10 Metoprolol Tartrate (Metoprolol Tartrate 25 Mg Tab) 25 mg PO BID FELIX Stop: 11/24/22 20:59 Last Admin: 10/27/22 09:43 Dose: 25 mg Nitroglycerin (Nitroglycerin Sl 0.4 Mg/Tab Tab) 0.4 mg SL UD PRN PRN Reason: Chest Pain Stop: 11/24/22 15:14 Ondansetron HCl (Ondansetron Inj 2 Mg/Ml 2 Ml Vial) 4 mg IV Q6H PRN PRN Reason: Nausea Stop: 11/24/22 14:10 Oxycodone HCl (Oxycodone Hcl Ir 5 Mg Tab (Immediate Release)) 5 mg PO Q4H PRN PRN Reason: Pain Stop: 11/08/22 15:14 Last Admin: 10/26/22 09:31 Dose: 5 mg Pantoprazole Sodium (Pantoprazole 40 Mg Tab) 40 mg PO DAILY FELIX Stop: 11/25/22 08:59 Last Admin: 10/27/22 09:44 Dose: 40 mg Polyethylene Glycol (Polyethylene (Miralax) 17 Gm Pack) 17 gm PO DAILY PRN PRN Reason: Constipation Stop: 11/24/22 14:10 Polyethylene Glycol (Polyethylene (Miralax) 17 Gm Pack) 17 gm PO DAILY FELIX Stop: 11/25/22 08:59 Last Admin: 10/27/22 09:52 Dose: Not Given Prednisone (Prednisone 20 Mg Tab) 40 mg PO DAILY FELIX Stop: 10/29/22 09:01 Last Admin: 10/27/22 09:44 Dose: 40 mg Tamsulosin HCl (Tamsulosin Hcl 0.4 Mg Cap) 0.4 mg PO DAILY FELIX Stop: 11/25/22 08:59 Last Admin: 10/27/22 09:44 Dose: 0.4 mg Vitamin D (Cholecalciferol 1,000 Units 25 Mcg Tab) 1,000 units PO AMHS FELIX Stop: 11/24/22 20:59 Last Admin: 10/27/22 09:43 Dose: 1,000 units (2) Closed femur fracture Encounter type: subsequent encounter Femur location: distal, unspecified portion Fracture healing: with delayed healing Fracture morphology: unspecified fracture morphology Laterality: left Qualified Code(s): S72.402G - Unspecified fracture of lower end of left femur, subsequent encounter for closed fracture with delayed healing
[2022-10-27] MEDS: GABAPENTIN 300 MG CAP PO SCH ×2 (12:54→22:26)
[2022-10-27] MEDS: HYDROmorphone INJ 0.5 MG/0.5 ML SYR IV PRN ×2 (14:14→22:48)
--- NOTE | 2022-10-27 17:20 | Hospitalist Progress Note ---
Date of Service October 27, 2022 Assessment & Plan (1) Altered mental status: (2) Fall: (3) Closed femur fracture: (4) Hypothyroidism: (5) Asthma, allergic: (6) Atherosclerotic heart disease of [place] coronary artery without angina pectoris: (7) Deep vein thrombosis of distal lower extremity: (8) Major depressive disorder: (9) BPH (benign prostatic hyperplasia): (10) COPD (chronic obstructive pulmonary disease): (11) Diastolic dysfunction: (12) SSS (sick sinus syndrome): (13) Pacemaker: (14) HTN (hypertension): (15) HLD (hyperlipidemia): (16) Depression: (17) RLS (restless legs syndrome): Plan Patient is a 77 yr male with H/O Sick sinus syndrome s/p pacemaker placement, diastolic CHF, BPH, Chronic pain syndrome, Dyslipidemia, CAD, MDD, Mendez's, GERD, HTN, COPD/asthma, RLS, Hx of DVT who presents after an unwitnessed fall from [facility]. Pt reportedly developed AMS after receiving 10mg of morphine en route to the hospital. Acute comminuted mildly displaced periprosthetic distal left femoral fracture H/O Left Hip surgery with IM nail recently Secondary to fall --Knee X ray:Acute comminuted mildly displaced periprosthetic distal left femoral fracture, as described above. Fracture is adjacent to the distal aspect of the intramedullary kalee and extends to the femoral component of the left knee arthropathy. --Hip/Pelvic X ray:No acute fracture is seen involving the hips or bony pelvis. Comminuted periprosthetic fracture of the distal left femoral metadiaphysis with displaced fragments as detailed above. 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 Fracture may extend to the left knee arthroplasty. The left proximal femur appears intact. --CT Head:There is no hemorrhage, mass effect, or evidence of acute territorial ischemia by CT criteria. -- Knee immobilizer for comfort Weightbearing as tolerated to the left lower extremity Continue pain control Appreciate orthopedics input Continue PT OT Minimize narcotic pain meds as able Acute metabolic encephalopathy Likely secondary to pain medications --CT head:There is no hemorrhage, mass effect, or evidence of acute territorial ischemia by CT criteria. Minimize Narcotics as able Empirically started on Rocephin for possible UTI Paroxysmal supraventricular tachycardia Pacemaker interrogation done: SVT, atrial fibrillation/atrial flutter. Appreciate cardiology input Amiodarone discontinued Continue metoprolol Poor candidate for anticoagulation If recurrence of tachycardia, will use Adenosine/amiodarone as needed Hematuria: Secondary to Traumatic Cath Monitor Chronic conditions: CAD, CHF, HLD, HLD continue Plavix, metoprolol, statin BPH On Flomax Chronic pain syndrome Decreased Cymbalta dose Resumed gabapentin Hypothyroidism continue levothyroxine COPD/asthma continue home inhalers Also on prednisone MDD RLS Continue home meds DVT Px: Lovenox SQ Code Status: Full Code Admission and Anticipated Discharge Date Admission Date: October 25, 2022 Subjective Patient is seen and examined at bedside Less distressed today during my encounter Pleasantly confused Poor appetite Refused pills this morning Mild hematuria likely traumatic catheter Had an episode of NSVT Review of Systems Review of Systems: All systems reviewed & are unremarkable except as noted in Subjective Physical Exam Physical Exam: Physical Exam: Vitals signs as noted above General Appearance:Moderately built and nourished, Apparent distress due to pain/spasms Head: normocephalic, Atraumatic Eyes: normal inspection, EOMI Neck: supple, Trachea midline Respiratory/Chest: Normal breath sounds, CTA, No accessory muscle use Cardiovascular: S1, S2, No murmur Abdomen/GI:Soft, Non tender, Bowel sounds present Extremities/Musculoskeletal:normal inspection, no edema, Left LE in immobilizer Neurologic/Psych:AAOX1, grossly no focal deficits Skin: normal color, warm Results & Data Results & Data Vital Signs (Past 12 Hours) Vital Signs Temp Pulse Resp BP BP Pulse Ox O2 Del Method 10/27/22 16:00 10/27/22 15:16 36.4 C L 80 19 176/89 H 93 Room Air 10/27/22 11:56 36.5 C 62 18 179/80 H 95 Nasal Cannula 10/27/22 09:00 Nasal Cannula 10/27/22 07:43 36.5 C 62 19 197/91 H 93 Nasal Cannula O2 Del Method O2 Flow Rate 10/27/22 16:00 Room Air 10/27/22 15:16 10/27/22 11:56 3 10/27/22 09:00 2 10/27/22 07:43 3 Laboratory Results Short CBC 10/27/22 Range/Units 04:41 WBC 7.79 (4.8-10.8) K/ul Hgb 10.3 L (14.0-18.0) g/dl Hct 31.3 L (42.0-52.0) % Plt Count 486 H (130-400) K/uL BMP 10/27/22 04:41 Sodium 138 Potassium 4.0 Chloride 106 Carbon Dioxide 25 BUN 20 Creatinine 0.96 Glucose 116 H Calcium 9.3 (2) Fall Encounter type: initial encounter Qualified Code(s): W19.XXXA - Unspecified fall, initial encounter (3) Closed femur fracture Encounter type: subsequent encounter Femur location: distal, unspecified portion Fracture healing: with delayed healing Fracture morphology: unspecified fracture morphology Laterality: left Qualified Code(s): S72.402G - Unspecified fracture of lower end of left femur, subsequent encounter for closed fracture with delayed healing
[2022-10-27] MEDS ORDERED: OLANZapine 10 MG/2.1 ML SDV IM PRN (21:41)
--- NOTE | 2022-10-27 21:42 | Communication Note ---
Date of Service: October 27, 2022 Patient with hematuria after repeated pulling on [place] catheter. H&H now Hold Plavix for now.
[2022-10-27 23:04] LABS: Hematocrit (blood only) 30.6 % (42.0-52.0); Hemoglobin 10.4 g/dl (14.0-18.0)
[2022-10-28] MEDS: hydrALAZINE HCL 20 MG/ML VIAL IV PRN (03:34)
[2022-10-28] MEDS: ACETAMINOPHEN 1,000 MG/100 ML VIAL IV PRN (04:14)
[2022-10-28] MEDS ORDERED: traMADol HCL 50 MG TABLET PO PRN (04:56)
[2022-10-28] MEDS: HYDROmorphone INJ 0.5 MG/0.5 ML SYR IV PRN (05:01)
[2022-10-28 05:38] LABS: Hematocrit (blood only) 30.6 % (42.0-52.0); Hemoglobin 10.3 g/dl (14.0-18.0); Mean Corpuscular Hemoglobin 32.3 pg (25.0-34.0); Mean Corpuscular Hgb Conc 33.7 g/dL (32.0-36.0); Mean Corpuscular Volume 95.9 fL (80.0-100.0); Mean Platelet Volume 10.5 fL (9.4-12.4); Platelet Count 521 K/uL (130-400); RDW Coefficient of Variation 15.2 % (11.5-14.5); RDW Standard Deviation 53.9 fL (36.4-46.3); Red Blood Count 3.19 M/uL (4.70-6.10); White Blood Count 10.35 K/ul (4.8-10.8)
[2022-10-28 05:48] LABS: BUN Creatinine Ratio 25.6 (10-20); Calcium 8.8 mg/dl (8.6-10.3); Creatinine Clr Calc Pharmacy 79.1 ml/min; Est GFR (African American) 99.6 ml/min; Est GFR (Non-African American) 85.9 ml/min; Potassium 3.4 mmol/L (3.5-5.1)
[2022-10-28] MEDS: LEVOTHYROXINE SODIUM 75 MCG TABLET PO SCH (06:24)
[2022-10-28] MEDS: GABAPENTIN 300 MG CAP PO SCH ×3 (07:59→20:58)
[2022-10-28] MEDS: predniSONE 20 MG TAB PO SCH (08:00)
[2022-10-28] MEDS: METOPROLOL TARTRATE 25 MG TAB PO SCH (08:00)
[2022-10-28] MEDS: CHOLECALCIFEROL 1,000 UNITS 25 MCG TAB PO SCH ×2 (08:00→20:57)
[2022-10-28] MEDS: PANTOprazole 40 MG TAB PO SCH (08:00)
[2022-10-28] MEDS: FINASTERIDE 5 MG TAB PO SCH (08:01)
[2022-10-28] MEDS: CLOPIDOGREL BISULFATE 75 MG TAB PO SCH (08:01)
[2022-10-28] MEDS: DULoxetine HCL 30 MG CAP PO SCH (08:01)
[2022-10-28] MEDS: ATORVASTATIN 40 MG TAB PO SCH (08:01)
[2022-10-28] MEDS: TAMSULOSIN HCL 0.4 MG CAP PO SCH (08:01)
[2022-10-28] MEDS: FLUTICASONE/VILANTEROL 200/25MCG 14 PUFFS/INHALER INH SCH (08:02)
[2022-10-28] MEDS: POLYETHYLENE (MIRALAX) 17 GM PACK PO SCH (08:12)
[2022-10-28] MEDS: ENOXAPARIN INJ 40 MG/0.4 ML SYR SQ SCH (08:12)
[2022-10-28] MEDS: DOCUSATE SODIUM 100 MG CAP PO SCH ×2 (08:12→21:02)
[2022-10-28] MEDS ORDERED: POTASSIUM CHLORIDE CRTAB 20 MEQ TABCR PO ONE (08:50)
[2022-10-28] MEDS ORDERED: hydrALAZINE HCL 20 MG/ML VIAL IV PRN (08:52)
[2022-10-28] MEDS ORDERED: POTASSIUM CHLORIDE 20 MEQ/15 ML UDC PO ONE (08:55)
[2022-10-28] MEDS: cefTRIAXone SODIUM 2,000 MG in DEXTROSE 5% AD-VAN 50 ML IV SCH (11:06)
--- NOTE | 2022-10-28 11:42 | XRay Report ---
[facility]UB CLINICAL HISTORY: Abdominal pain. COMPARISON STUDY: KUB June 08, 2017. FINDINGS: This study was technically difficult to obtain. This study is mildly compromised by motion artifact. The lower pelvis was not included. The bowel gas pattern is within normal limits. Intracana licular stimulator is present. IMPRESSION: No evidence for a bowel obstruction. Exam mildly compromised by artifact. ACT 112: Negative or not required by law. Electronically signed by: Boyd Chandler M.D. 10/28/2022 11:40 AM
--- NOTE | 2022-10-28 12:41 | Cardiology Progress Note ---
Date of Service October 28, 2022 Assessment & Plan (1) PSVT (paroxysmal supraventricular tachycardia): (2) Closed femur fracture: Plan: -77-year-old male with history of coronary heart disease with remote plain balloon angioplasty of the LAD for which he remains on chronic clopidogrel, and sick sinus syndrome for which she underwent previous implantation of dual- chamber permanent pacemaker. Echocardiogram performed 09/27/2021 as an inpatient revealed moderate concentric left ventricular hypertrophy with normal LVEF in the range of 55 to 60% moderate aortic valve sclerosis without stenosis, mild aortic insufficiency, grade 1 diastolic dysfunction. Per review of outpatient chart, he has a longstanding history of chronic pain disorder and ambulatory dysfunction. He presents with unwitnessed fall episode (mechanical or other) and although he was in sinus rhythm on arrival to the emergency room yesterday he developed tachycardia, with telemetry and EKG consistent with a supraventricular tachycardia with rates in the 130s, and associated hypotension. Blood pressure documented on 10/25/2022 at 2141 was 68/47. Acute delirium present. Significant pain noted overnight and this morning. Due to relative hypotension, amiodarone was selected as being the medication of choice and was effective with regards to conversion to sinus rhythm. We will proceed with pacemaker interrogation which should help determine if this was a supraventricular tachycardia or perhaps in atrial flutter. If he was found to have atrial flutter, I do not think he is a candidate for anticoagulation due to fall episode. Of note, he is status post recent orthopedic surgery, but he has been on Lovenox for DVT prophylaxis while at rehab. Amiodarone has been discontinues. Continue [employer] atorvastatin, clopidogrel, metoprolol tartrate 25 mg two times per day. Orthopedic surgery consultation has already been placed by the admitting team, which I think is indicated. I spent a total of 65 minutes on the date of service in preparation, delivery, and documentation of the care provided to this patient, excluding any time spent in the performance of separately billed services. Plan 77-year-old male admitted with multiple issues including paroxysmal supraventricular tachycardia observed. 1 episode yesterday described as per subjective. Patient asymptomatic Normal pacemaker function with transient atrial tracking with ventricular paced Recommendations: Supplement potassium as doing keep potassium greater than 4 We will change metoprolol to tartrate to metoprolol succinate 25 mg twice per day for additional antiarrhythmic therapy No indications for anticoagulation with patient high risk for such. Atrial flutter not completely excluded though past pacemak er interrogation suggest atrial tachycardia versus atrial flutter Admission and Anticipated Discharge Date Admission Date: October 25, 2022 Subjective Patient seen and examined, chart, medications, telemetry reviewed. Patient awake but remains confused. No agitation but less animated than day prior. Denies any specific complaint Patient developed hematuria after Forrest manipulation by patient Telemetry reviewed. Transient run of atrial tachycardia yesterday SVT versus at rial flutter likely SVT. There was transient wide-complex rhythm consistent with ventricular pacing tracking atrial arrhythmia No further recurrence since 2 PM yesterday Review of Systems Review of Systems: Unobtainable due to cognitive status Physical Exam Constitutional: no acute distress Eyes: PERRL, conjunctivae normal, anicteric sclerae ENMT: external ear and nose normal, oropharynx normal Neck: trachea midline, no thyromegaly Respiratory: normal respiratory effort, lungs clear to auscultation Cardiovascular: RRR, no murmur, no edema Chest (Breasts): Chest: + pacemaker (pocket clean dry and intact ) Neurologic: PERRL, EOMI, accommodation nl, no face palsy, no dysarthria Results & Data Vital Signs (Past 12 Hours) Vital Signs Temp Pulse Resp BP BP Pulse Ox O2 Del Method 10/28/22 11:23 36.9 C 60 19 162/75 H 99 Room Air 10/28/22 07:44 Room Air 10/28/22 07:30 36.6 C 65 18 190/82 H 98 Room Air 10/28/22 03:00 36.3 C L 61 21 180/75 H 95 Room Air Laboratory Results Laboratory Results - last 24 hr 10/27/22 10/28/22 10/28/22 22:25 04:22 04:22 WBC 10.35 RBC 3.19 L Hgb 10.4 L 10.3 L Hct 30.6 L 30.6 L MCV 95.9 MCH 32.3 MCHC 33.7 RDW Std Deviation 53.9 H RDW Coeff of Jarrett 15.2 H Plt Count 521 H MPV 10.5 Sodium 138 Potassium 3.4 L Chloride 104 Carbon Dioxide 24 Anion Gap 10 BUN 21 Creatinine 0.82 Est Cr Clr Drug Dosing 79.1 Est GFR ( Amer) 99.6 Est GFR (Non-Af Amer) 85.9 BUN/Creatinine Ratio 25.6 H Glucose 110 H Calcium 8.8 (2) Closed femur fracture Encounter type: subsequent encounter Femur location: distal, unspecified portion Fracture healing: with delayed healing Fracture morphology: unspecified fracture morphology Laterality: left Qualified Code(s): S72.402G - Unspecified fracture of lower end of left femur, subsequent encounter for closed fracture with delayed healing
--- NOTE | 2022-10-28 16:47 | Neurology Consultation ---
Date of Consultation October 28, 2022 Assessment & Plan (1) Altered mental status: Impression: The patient became very encephalopathic after receiving narcotic analgesic initially in the emergency department. However, he has not been on any narcotics or strong sedatives for last 24 hours, with persistent agitation, confusion, and disorientation. His current mental status is likely due to delirium. We need to rule out subclinical seizures and interval cerebrovascular accident since admission. There is no finding to suggest BACKGROUND INVESTIGATOR infectious process. Recommendations: Limit use of sedatives, anticholinergics, and narcotics. Frequent orientation. Delirium precautions. EEG to evaluate cerebral functioning and to rule out subclinical seizures. Repeat head CT without contrast. We will follow patient's with you. (2) Fall: Impression: The patient fell prior to arrival to the emergency department. There was no reported head trauma. The patient has been followed by orthopedics. (3) Closed femur fracture: (4) PSVT (paroxysmal supraventricular tachycardia): Impression: The patient has history of sick sinus syndrome, status post pacemaker placement. He has been followed by cardiology. Plan As seen above. Thank you for the consultation. History of Present Illness Reason for Consultation: [facility] Requesting Physician: Chris Gaston MD Attending Physician: Chris Gaston MD History of Present Illness The patient is a 77-year-old gentleman, was brought to emergency department after falling down with altered mental status, and was admitted to hospital on 10/25/2022. The patient has extensive cardiac history including coronary artery disease with balloon angioplasty, sick sinus syndrome with dual-chamber permanent pacemaker placement, recurrent episodes of tachycardia, hypotensive episodes, and has been followed by cardiology. He also has extensive orthopedic history with bilateral hip replacement and recent left femur fracture on narcotic analgesics for chronic pain. He was given morphine in the emergency department, and became very confused. He has not been receiving sedative medications including narcotics for last 24 hours, but his mental status has not been improved as expected. He is quite agitated, and pulling his lines, disoriented and confused. Head CT on admission was unremarkable and did not show acute pathology. Pacemaker interrogation showed episodes of tachycardia, which was considered as supraventricular. In the past, the patient was having episodes, which was suspicious for atrial flutter, but the patient is not a candidate for anticoagulation. The patient has no history of seizure disorder and there has not been any clinical seizures during hospital stay. Due to ongoing mental status change, neurology consultation is requested. I have reviewed the patient's chart including imaging studies and visualized them personally. Allergies Allergy/AdvReac Type Severity Reaction Status Date / Time adhesive Allergy Unknown GOODE SKIN Verified 10/25/22 12:52 No Known Drug Allergies Allergy Unknown . Verified 09/26/21 22:54 latex Allergy Unknown Verified 10/25/22 12:52 Home Medications Medication Instructions Recorded Confirmed Type albuterol sulfate 2.5 mg/3 mL 2.5 mg inhalation Q4H PRN 09/26/21 10/25/22 History (0.083 %) solution for nebulization Shortness Of Breath Or Wheezing atorvastatin 80 mg tablet 80 mg PO DAILY 09/26/21 10/25/22 History cholecalciferol (vitamin D3) 25 25 mcg PO AMHS 09/26/21 10/25/22 History mcg (1,000 unit) tablet (Vitamin D3) clopidogrel 75 mg tablet 75 mg PO DAILY 09/26/21 10/25/22 History docusate sodium 100 mg tablet 100 mg PO BID 09/26/21 10/25/22 History duloxetine 30 mg capsule,delayed 30 mg PO DAILY 09/26/21 10/25/22 History release duloxetine 60 mg capsule,delayed 60 mg PO DAILY 09/26/21 10/25/22 History release finasteride 5 mg tablet 5 mg PO DAILY 09/26/21 10/25/22 History fluticasone propionate 50 2 spray intranasal DAILY PRN 09/26/21 10/25/22 History mcg/actuation nasal ALLERGIES spray,suspension levothyroxine 75 mcg tablet 75 mcg PO DAILY 09/26/21 10/25/22 History nitroglycerin 0.4 mg sublingual 0.4 mg sublingual DIRECTED PRN 09/26/21 10/25/22 History tablet (Nitrostat) Chest Pain pantoprazole 40 mg tablet,delayed 40 mg PO DAILY 09/26/21 10/25/22 History release polyvinyl alcohol 1.4 % eye drops 1 drp OPR QID PRN Pain 09/26/21 10/25/22 Hi story (Artificial Tears (polyvinyl alcohol)) tamsulosin 0.4 mg capsule 0.4 mg PO DAILY 09/26/21 10/25/22 History umeclidinium 62.5 mcg-vilanterol 1 inh inhalation DAILY 09/26/21 10/25/22 History 25 mcg/actuation powdr for inhalation (Anoro Ellipta) acetaminophen 325 mg tablet 650 mg PO Q4 PRN Fever Or Pain 10/25/22 10/25/22 History (Tylenol) albuterol sulfate 90 mcg/actuation 2 puff inhalation Q4 PRN Shortness 10/25/22 10/25/22 History aerosol inhaler Of Breath Or Wheezing amitriptyline 50 mg tablet 50 mg PO HS 10/25/22 10/25/22 History carboxymethylcellulose sodium 1 % 1 drp OPR QID PRN .eye 10/25/22 10/25/22 History eye drops (Artificial Tears pain,irritation,dry eye,itching (carboxymethylcellulose)) enoxaparin 30 mg/0.3 mL 30 mg subcut Q12H 10/25/22 10/25/22 History subcutaneous syringe fluticasone 250 mcg-salmeterol 50 1 inh inhalation BID 10/25/22 10/25/22 History mcg/dose blistr powdr for inhalation (Advair Diskus) gabapentin 600 mg tablet 600 mg PO TID 10/25/22 10/25/22 History ipratropium 0.5 mg-albuterol 3 mg 3 ml inhalation Q6H PRN Shortness 10/25/22 10/25/22 History (2.5 mg base)/3 mL nebulization Of Breath Or Wheezing soln metoprolol tartrate 25 mg tablet 25 mg PO BID 10/25/22 10/25/22 History omeprazole 40 mg capsule,delayed 40 mg PO DAILY 10/25/22 10/25/22 History release ondansetron 4 mg disintegrating 4 mg translingual Q8H PRN Nausea 10/25/22 10/25/22 History tablet oxycodone 5 mg tablet 5 mg PO Q4H PRN Pain 10/25/22 10/25/22 History polyethylene glycol 3350 17 gram 17 g PO DAILY 10/25/22 10/25/22 History oral powder packet (Miralax) prednisone 20 mg tablet 40 mg PO .DAILY FOR 5 DAYS 10/25/22 10/25/22 History vit no.95-ferrous 1 tab PO DAILY 10/25/22 10/25/22 History fumarate 28 mg-folic acid 800 mcg tablet () sennosides 8.6 mg tablet (senna) 17.2 mg PO BID 10/25/22 10/25/22 History Patient History Medical History BPH (benign prostatic hyperplasia) Carotid stenosis Cervical radiculopathy Chronic anticoagulation Chronic hip pain after total replacement of right hip joint Chronic right SI joint pain COPD (chronic obstructive pulmonary disease) Depression Diastolic dysfunction DVT (deep venous thrombosis) (01/29/14) Emphysema of lung Exertional shortness of breath Fingertip amputation History of left heart catheterization (LHC) HLD (hyperlipidemia) HTN (hypertension) Hypothyroidism Intercostal neuralgia Left shoulder pain Lumbar post-laminectomy syndrome Lung infiltrate Myofascial pain Neuritis of left ulnar nerve 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 Osteoarthritis of left knee Pacemaker Post-thoracotomy pain syndrome RLS (restless legs syndrome) Spinal cord stimulator status SSS (sick sinus syndrome) Symptomatic bradycardia Surgical History H/O knee surgery History of hip surgery History of total knee arthroplasty Hx of cholecystectomy Status post insertion of spinal cord stimulator Family History Mother Heart disease Social History Smoking Status: Never smoker Tobacco Type: Cigarettes Hx Alcohol Use: No Hx Substance Use: No Preferred Language: Uzbek Communication Ability: Impaired Bindery Supervisor Required: No Beliefs That Will Affect Care: None marital status: Current Living Situation: Rehab Current Living Situation Comment: [facility] current occupational status: disabled Feels Safe at Home: Yes Safety Concerns: Feels Safe At This Time Assistive Devices: Walker Review of Systems Review of Systems: Unobtainable due to cognitive status Physical Exam Physical Exam: General Examination: Constitutional: Well developed person in no acute distress but restless. HENT: Normal exam with inspection. CV: Hearth rhythm is regular. Neck: Supple, ? carotid bruits. Lungs: Non-labored and comfortable breathing. Abdomen: Soft, non-tender, non-distended. Skin: No rash or ecchymosis. Extremities: No edema or cyanosis. Left knee is in immobilizer. NEUROLOGICAL EXAMINATION: Mental Status: Alert but confused and disoriented. He answers all questions "I do not know ". Cranial Nerves: Pupils are 4 mm and reactive to light bilaterally. Facial symmetry is preserved. Tongue protrusion is on midline. Shoulder shrug is bilaterally intact. Extraocular muscles are intact. Funduscopy: Unable to visualize Motor: The patient does not cooperate during examination, however, moves bilateral upper extremities symmetrically. There is withdrawal of lower extremities to painful stimuli. Tone: Normal without spasticity or rigidity. Sensory: Unable to assess. Coordination: Unable to assess. Speech: The patient answered all questions with "I do not know ". He is confused and does not follow verbal commands. Gait: Unable to assess. Musculoskeletal: Normal muscle bulk, no atrophy. DTRs: 2+ in upper extremities symmetrically. Plantar reflexes are bilaterally downgoing. Results & Data Vital Signs (Past 12 Hours) Vital Signs Temp Pulse Resp BP BP Pulse Ox O2 Del Method 10/28/22 15:14 36.8 C 65 17 166/76 H 98 Room Air 10/28/22 11:23 36.9 C 60 19 162/75 H 99 Room Air 10/28/22 07:44 Room Air 10/28/22 07:30 36.6 C 65 18 190/82 H 98 Room Air Laboratory Results Laboratory Results - last 24 hr 10/27/22 10/28/22 10/28/22 22:25 04:22 04:22 WBC 10.35 RBC 3.19 L Hgb 10.4 L 10.3 L Hct 30.6 L 30.6 L MCV 95.9 MCH 32.3 MCHC 33.7 RDW Std Deviation 53.9 H RDW Coeff of Jarrett 15.2 H Plt Count 521 H MPV 10.5 Sodium 138 Potassium 3.4 L Chloride 104 Carbon Dioxide 24 Anion Gap 10 BUN 21 Creatinine 0.82 Est Cr Clr Drug Dosing 79.1 Est GFR ( Amer) 99.6 Est GFR (Non-Af Amer) 85.9 BUN/Creatinine Ratio 25.6 H Glucose 110 H Calcium 8.8 Diagnostic Findings Cervical Spine CT 10/25/22 09:04 CT SCAN OF THE CERVICAL SPINE CLINICAL HISTORY: Trauma. Fall. COMPARISON STUDY: CT of the cervical spine dated 09/26/2021 and 09/04/2018. TECHNIQUE: CT scan of the cervical spine is performed from the skull base to the upper thoracic spine. Images are reviewed in the axial, sagittal, and coronal planes. IV contrast was not administered for this examination. A dose lowering technique was utilized adhering to the principles of ALARA. FINDINGS: Skeletal structures: The skeletal structures are osteopenic. There is no evidence of fracture or subluxation involving the cervical spine. Vertebral body height and alignment are maintained. There is straightening of the cervical lordosis. Anterior osteophytes are seen throughout. The odontoid process and lateral masses are intact. The atlantoaxial articulation is preserved noting productive degenerative change. The spinous processes appear intact. A 9 mm bone island is again seen in the body of C5. There is moderate to advanced multilevel cervical spondylosis. Uncovertebral and facet arthropathy contribute to neural foraminal narrowing at most levels. Intervertebral discs: There is moderate to severe disc space narrowing at C6-C7 with endplate sclerosis. Mild disc space narrowing is noted at the remaining cervical levels. Central canal: Posterior disc osteophyte complexes are seen at all cervical levels between C3-C4 and C6-C7. This likely contributes to multilevel acquired compromise of the central canal. Pacemaker leads are noted at the left thoracic inlet. Soft tissues: The prevertebral and paraspinous soft tissues are within normal limits. There is atherosclerotic calcification of the carotid bulbs. Calvarium: The visualized calvarium at the skull base appears intact. Brain parenchyma: Partially visualized brain parenchyma at the skull base is w ithin normal limits. Sinuses and mastoids: The visualized paranasal sinuses are clear. The mastoid air cells are well pneumatized. Lung apices: There is apical scarring. Postsurgical change is noted at the left apex. IMPRESSION: 1. There is no evidence of fracture or subluxation involving the cervical spine. 2. Osteopenia and spondylotic changes as above. ACT 112: Negative or not required by law. Electronically signed by: Geoffrey Auguste M.D. 10/25/2022 9:54 AM Chest X-Ray 10/25/22 09:04 SINGLE VIEW CHEST CLINICAL HISTORY: Generalized weakness. FINDINGS: An AP, portable, upright chest radiograph is compared to study dated 06/08/2022 and correlated with chest CT dated 02/24/2020. A 2-lead cardiac pacemaker is unchanged in position. The heart is enlarged. There is pulmonary vascular congestion. Small pleural effusions are suspected. There is bibasilar scarring/atelectasis. No pneumothorax is seen. The skeletal structures are osteopenic. The bony thorax is grossly intact. An intrathecal lead projects over the lower thoracic spine. Cholecystectomy clips are noted in the right upper quadrant. IMPRESSION: 1. Cardiomegaly and cardiac pacemaker with pulmonary vascular congestion. 2. Small pleural effusions. ACT 112: Negative or not required by law. Electronically signed by: Geoffrey Auguste M.D. 10/25/2022 10:[address] 10/25/22 09:[address] WITHOUT CONTRAST CLINICAL HISTORY: fall, trauma COMPARISON STUDY: Facial bone CT April 14, 2020. TECHNIQUE: A maxillofacial CT was performed without IV contrast. Coronal and sagittal reformats were viewed. Automated exposure control was utilized for the study. A dose lowering technique was utilized adhering to the principles of ALARA. FINDINGS: No acute facial bone fracture is identified. Alignment of the temporomandibular joints is anatomic. There is no acute skull base fracture. Globes are intact. There is no retrobulbar hematoma. The head CT will be reported separately. Numerous teeth are absent. IMPRESSION: No acute facial fracture. ACT 112: Negative or not required by law. Electronically signed by: Boyd Chandler M.D. 10/25/2022 10:51 AM Femur X-Ray 10/25/22 09:04 SINGLE VIEW PELVIS; 2 VIEWS LEFT HIP; 2 VIEWS LEFT FEMUR CLINICAL HISTORY: Fall. Left leg injury. FINDINGS: An AP view of the pelvis, AP and crosstable lateral views of the left hip, with AP and crosstable lateral views of the left femur are obtained. Comparison is made to pelvic x-ray dated 06/23/2018. The skeletal structures are osteopenic. There is no radiographic evidence of acute fracture involving the hips or bony pelvis. Bilateral hip arthroplasties are in near-anatomic align ment. No periprosthetic lucency is seen. Sclerotic changes noted in the sacroiliac joints. There is chronic deformity of the left proximal femur with a buttress plate in place along the lateral cortex. An intramedullary nail is present in the distal femur and a left knee arthroplasty is in place. There is a comminuted fracture of the distal left femoral metadiaphysis with displaced fragments. The largest fragments are medially displaced by up to 8 mm. Overlying soft tissue edema is noted. Fracture is located around the intramedullary nail and may extend to the left knee arthroplasty. No acute fracture is seen involving the left proximal femur. There is mild atherosclerotic calcification of the femoral artery. Moderate fecal retention is noted in the rectosigmoid. IMPRESSION: 1. No acute fracture is seen involving the hips or bony pelvis. 2. Comminuted periprosthetic fracture of the distal left femoral metadiaphysis with displaced fragments as detailed above. 3. 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 Fracture may extend to the left knee arthroplasty. 4. The left proximal femur appears intact. Electronically signed by: Geoffrey Auguste M.D. 10/25/2022 10:[address] 10/25/22 09:04 CT SCAN OF THE BRAIN WITHOUT IV CONTRAST CLINICAL HISTORY: Fall. COMPARISON STUDY: CT of the brain dated 09/26/2021. TECHNIQUE: Unenhanced axial CT scan of the brain is performed from the vertex to the skull base. A dose lowering technique was utilized adhering to the principles of ALARA. FINDINGS: Brain parenchyma: There is age-related involutional change noting [id number] subcortical and periventricular microangiopathic disease. There is no hemorrhage, mass effect, or evidence of acute territorial ischemia by CT criteria. Jordan-white matter differentiation is preserved. No extra-axial fluid collection is seen. Ventricles, sulci, cisterns: Prominent secondary to involutional change. Intracranial vasculature: There is atherosclerotic calcification of the cavernous carotid and vertebral arteries. Calvarium: The skeletal structures are osteopenic. No depressed calvarial fracture is seen. Sinuses and mastoids: The visualized paranasal sinuses are clear. The mastoid air cells are well pneumatized. Orbits: The bony orbits are grossly intact. IMPRESSION: There is no hemorrhage, mass effect, or evidence of acute territorial ischemia by CT criteria. ACT 112: Negative or not required by law. Electronically signed by: Geoffrey Auguste M.D. 10/25/2022 9:49 AM Hip/Pelvis X-Ray 10/25/22 09:04 SINGLE VIEW PELVIS; 2 VIEWS LEFT HIP; 2 VIEWS LEFT FEMUR CLINICAL HISTORY: Fall. Left leg injury. FINDINGS: An AP view of the pelvis, AP and crosstable lateral views of the left hip, with AP and crosstable lateral views of the left femur are obtained. Comparison is made to pelvic x-ray dated 06/23/2018. The skeletal structures are osteopenic. There is no radiographic evidence of acute fracture involving the hips or bony pelvis. Bilateral hip arthroplasties are in near-anatomic alignment. No periprosthetic lucency is seen. Sclerotic changes noted in the sacroiliac joints. There is chronic deformity of the left proximal femur with a buttress plate in place along the lateral cortex. An intramedullary nail is present in the distal femur and a left knee arthroplasty is in place. There is a comminuted fracture of the distal left femoral metadiaphysis with displaced fragments. The largest fragments are medially displaced by up to 8 mm. Overlying soft tissue edema is noted. Fracture is located around the intramedullary nail and may extend to the left knee arthroplasty. No acute fracture is seen involving the left proximal femur. There is mild atherosclerotic calcification of the femoral artery. Moderate fecal retention is noted in the rectosigmoid. IMPRESSION: 1. No acute fracture is seen involving the hips or bony pelvis. 2. Comminuted periprosthetic fracture of the distal left femoral metadiaphysis with displaced fragments as detailed above. 3. 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 Fracture may extend to the left knee arthroplasty. 4. The left proximal femur appears intact. Electronically signed by: Geoffrey Auguste M.D. 10/25/2022 10:56 AM Knee X-Ray 10/25/22 09:04 XR knee LT 1 or 2V routine CLINICAL HISTORY: fall, swelling, trauma COMPARISON: Left knee radiographs October 29, 2018. FINDINGS: Left knee arthroplasty is noted. There is also an intramedullary kalee within the left femur. Note is made of an acute comminuted mildly displaced periprosthetic distal left femoral fracture. Fracture extends from the level the distal shaft of the left femur to the femoral component of the knee arthroplasty. Fracture is displaced 8 mm. There is no proximal left tibial or fibular fracture. IMPRESSION: Acute comminuted mildly displaced periprosthetic distal left femoral fracture, as described above. Fracture is adjacent to the distal aspect of the intramedullary kalee and extends to the femoral component of the left knee arthropathy. ACT 112: Negative or not required by law. Electronically signed by: Boyd Chandler M.D. 10/25/2022 11:03 AM KUB X-Ray 10/28/22 10:54 [facility]UB CLINICAL HISTORY: Abdominal pain. COMPARISON STUDY: KUB June 08, 2017. FINDINGS: This study was technically difficult to obtain. This study is mildly compromised by motion artifact. The lower pelvis was not included. The bowel gas pattern is within normal limits. Intracanalicular stimulator is present. IMPRESSION: No evidence for a bowel obstruction. Exam mildly compromised by artifact. ACT 112: Negative or not required by law. Electronically signed by: Boyd Chandler M.D. 10/28/2022 11:40 AM (2) Fall Encounter type: initial encounter Qualified Code(s): W19.XXXA - Unspecified fall, initial encounter (3) Closed femur fracture Encounter type: subsequent encounter Femur location: distal, unspecified portion Fracture healing: with delayed healing Fracture morphology: unspecified fracture morphology Laterality: left Qualified Code(s): S72.402G - Unspecified fracture of lower end of left femur, subsequent encounter for closed fracture with delayed healing
--- NOTE | 2022-10-28 17:58 | Hospitalist Progress Note ---
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: (7) Deep vein thrombosis of distal lower extremity: (8) Major depressive disorder: (9) BPH (benign prostatic hyperplasia): (10) COPD (chronic obstructive pulmonary disease): (11) Diastolic dysfunction: (12) SSS (sick sinus syndrome): (13) Pacemaker: (14) HTN (hypertension): (15) HLD (hyperlipidemia): (16) Depression: (17) RLS (restless legs syndrome): Plan Patient is a 77 yr male with H/O Sick sinus syndrome s/p pacemaker placement, diastolic CHF, BPH, Chronic pain syndrome, Dyslipidemia, CAD, MDD, Mendez's, GERD, HTN, COPD/asthma, RLS, Hx of DVT who presents after an unwitnessed fall from [facility]. Pt reportedly developed AMS after receiving 10mg of morphine en route to the hospital. Acute comminuted mildly displaced periprosthetic distal left femoral fracture H/O Left Hip surgery with IM nail recently Secondary to fall --Knee X ray:Acute comminuted mildly displaced periprosthetic distal left femoral fracture, as described above. Fracture is adjacent to the distal aspect of the intramedullary kalee and extends to the femoral component of the left knee arthropathy. --Hip/Pelvic X ray:No acute fracture is seen involving the hips or bony pelvis. Comminuted periprosthetic fracture of the distal left femoral metadiaphysis with displaced fragments as detailed above. 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 Fracture may extend to the left knee arthroplasty. The left proximal femur appears intact. --CT Head:There is no hemorrhage, mass effect, or evidence of acute territorial ischemia by CT criteria. -- Knee immobilizer for comfort Weightbearing as tolerated to the left lower extremity Continue pain control Appreciate orthopedics input Continue PT OT Minimize narcotic pain meds as able Rehab as able Acute metabolic encephalopathy Likely secondary to pain medications, delirium --CT head:There is no hemorrhage, mass effect, or evidence of acute territorial ischemia by CT criteria. Minimize Narcotics as able Empirically received Rocephin for suspected UTI Urine culture negative Appreciate neurology input EEG requested Paroxysmal supraventricular tachycardia Pacemaker interrogation done: SVT, atrial fibrillation/atrial flutter. Appreciate cardiology input Amiodarone discontinued Continue metoprolol Poor candidate for anticoagulation If recurrence of tachycardia, will use Adenosine/amiodarone as needed Hematuria: Secondary to Traumatic Cath Monitor Mitts placed Chronic conditions: CAD, CHF, HLD, HLD continue Plavix, metoprolol, statin BPH On Flomax Chronic pain syndrome Decreased Cymbalta dose Resumed gabapentin Hypothyroidism continue levothyroxine COPD/asthma continue home inhalers Also on prednisone MDD RLS Continue home meds DVT Px: Lovenox SQ Code Status: Full Code Admission and Anticipated Discharge Date Admission Date: October 25, 2022 Subjective Patient is seen and examined at bedside Remains pleasantly confused Reported some abdominal discomfort tolerating Unable to obtain much history Consulted neurology for further input Review of Systems Review of Systems: All systems reviewed & are unremarkable except as noted in Subjective Physical Exam Physical Exam: Physical Exam: Vitals signs as noted above General Appearance:Moderately built and nourished, Apparent distress due to pain/spasms Head: normocephalic, Atraumatic Eyes: normal inspection, EOMI Neck: supple, Trachea midline Respiratory/Chest: Normal breath sounds, CTA, No accessory muscle use Cardiovascular: S1, S2, No murmur Abdomen/GI:Soft, Non tender, Bowel sounds present Extremities/Musculoskeletal:normal inspection, no edema, Left LE in immobilizer Neurologic/Psych:AAOX1, grossly no focal deficits Skin: normal color, warm Results & Data Results & Data Vital Signs (Past 12 Hours) Vital Signs Temp Pulse Resp BP BP Pulse Ox O2 Del Method 10/28/22 15:14 36.8 C 65 17 166/76 H 98 Room Air 10/28/22 11:23 36.9 C 60 19 162/75 H 99 Room Air 10/28/22 07:44 Room Air 10/28/22 07:30 36.6 C 65 18 190/82 H 98 Room Air Laboratory Results Short CBC 10/27/22 10/28/22 Range/Units 22:25 04:22 WBC 10.35 (4.8-10.8) K/ul Hgb 10.4 L 10.3 L (14.0-18.0) g/dl Hct 30.6 L 30.6 L (42.0-52.0) % Plt Count 521 H (130-400) K/uL BMP 10/28/22 04:22 Sodium 138 Potassium 3.4 L Chloride 104 Carbon Dioxide 24 BUN 21 Creatinine 0.82 Glucose 110 H Calcium 8.8 (2) Fall Encounter type: initial encounter Qualified Code(s): W19.XXXA - Unspecified fall, initial encounter (3) Closed femur fracture Encounter type: subsequent encounter Femur location: distal, unspecified portion Fracture healing: with delayed healing Fracture morphology: unspecified fracture morphology Laterality: left Qualified Code(s): S72.402G - Unspecified fracture of lower end of left femur, subsequent encounter for closed fracture with delayed healing
--- NOTE | 2022-10-28 18:30 | CT Scan Report ---
CT OF THE HEAD WITHOUT CONTRAST CLINICAL HISTORY: Altered mental status. Fall. Head injury. COMPARISON STUDY: Head CTs September 26, 2021 and October 25, 2022. TECHNIQUE: Helical axial images of the head were obtained without IV contrast. Automated exposure con trol was utilized for the study. A dose lowering technique was utilized adhering to the principles o f ALARA. FINDINGS: This exam is mildly compromised by motion artifact. No acute intracranial hemorrhage, midli ne shift or mass effect is present. The ventricular system is stable. The basal cisterns are patent. No extra-axial collections are present. There are no findings to suggest acute dural sinus thrombosis or acute territorial infarct. No significant calvarial abnormalities are present. Visualized portion s of the sinuses and mastoid air cells are clear. IMPRESSION: 1. Exam mildly compromised by motion artifact. No acute intracranial findings. 2. No calvarial fractures identified. ACT 112: Negative or not required by law. Electronically signed by: Boyd Chandler M.D. 10/28/2022 6:29 PM
--- NOTE | 2022-10-28 18:37 | CT Scan Report ---
CT OF THE THORACIC SPINE CLINICAL HISTORY: Fall. COMPARISON STUDY: Thoracolumbar spine radiographs October 03, 2015. Chest CT February 24, 2020. TECHNIQUE: Helical axial images of the thoracic spine were obtained. Sagittal and coronal reconstru ctions were viewed. Automated exposure control was utilized for the study. A dose lowering techniqu e was utilized adhering to the principles of ALARA. FINDINGS: No acute thoracic spine fracture is identified. No suspicious osseous lesions are identifie d. There is mild multilevel disc space narrowing and osteophytosis within the thoracic spine. Intraca nalicular electrodes terminate at the inferior T7 level. Paravertebral soft tissues are unremarkable. No acute fractures are identified within visualized portions of the posterior ribs. Mildly enlarged mediastinal lymph nodes are unchanged since CT of February 24, 2020. No pneumothorax is identified wi thin visualized portions of the chest. IMPRESSION: No acute thoracic spine fracture or subluxation. ACT 112: Negative or not required by law. Electronically signed by: Boyd Chandler M.D. 10/28/2022 6:35 PM
--- NOTE | 2022-10-28 18:45 | CT Scan Report ---
CT lumbar spine wo con CLINICAL HISTORY: Fall COMPARISON STUDY: Lumbar spine MRI November 10, 2008. CT of the abdomen and pelvis February 28, 2009. TECHNIQUE: Axial images of the lumbar spine were obtained without IV contrast. Sagittal and coronal r econstructions were viewed. Automated exposure control was utilized for the study. A dose lowering t echnique was utilized adhering to the principles of ALARA. FINDINGS: For purposes of numbering on this exam, the L5-S1 disc space is assigned to axial image 387 of 451. Intracanalicular electrodes enter the canal at the L1-L2 level. Leads terminate at the infer ior T7 level, as shown on the thoracic spine CT which will be reported separately. Alignment of the l umbar spine is anatomic with the exception of mild leftward curvature of the mid to lower lumbar spin e. There is no lumbar spine fracture. No osseous lesions are identified. There is moderate multilevel facet arthrosis. Mild multilevel endplate osteophytosis is present. Paravertebral soft tissues are u nremarkable. Bilateral hip arthroplasties are incidentally noted on the scrap wheeler tomogram. IMPRESSION: 1. No acute lumbar spine fracture or subluxation. 2. Moderate multilevel facet arthrosis and mild degenerative disc disease within the lumbar spine. ACT 112: Negative or not required by law. Electronically signed by: Boyd Chandler M.D. 10/28/2022 6:43 PM
[2022-10-28] MEDS: METOPROLOL SUCC 25MG EXT REL TAB PO SCH (20:59)
[2022-10-28] MEDS: BACLOFEN 10 MG TAB PO PRN (23:29)
[2022-10-29] MEDS ORDERED: METOPROLOL TARTRATE 1 MG/ML VIAL IV STA (01:31)
[2022-10-29] MEDS: POTASSIUM CHLORIDE CRTAB 20 MEQ TABCR PO STA ×2 (01:56→02:03)
[2022-10-29 02:02] LABS: Basophils # (auto) 0.04 K/uL (0-0.2); Basophils % (auto) 0.6 %; Eosinophils # (auto) 0.05 K/uL (0-0.50); Eosinophils % (auto) 0.8 %; Hematocrit (blood only) 32.2 % (42.0-52.0); Hemoglobin 10.9 g/dl (14.0-18.0); Immature Granulocytes # (auto) 0.01 K/uL (0.01-0.20); Immature Granulocytes % (auto) 0.2 %; Lymphocytes # (auto) 1.75 K/uL (1.2-3.4); Lymphocytes % (auto) 28.2 %; Mean Corpuscular Hemoglobin 32.6 pg (25.0-34.0); Mean Corpuscular Hgb Conc 33.9 g/dL (32.0-36.0); Mean Corpuscular Volume 96.4 fL (80.0-100.0); Monocytes # (auto) 0.83 K/uL (0.11-0.59); Monocytes % (auto) 13.4 %; Neutrophils # (auto) 3.52 K/uL (1.40-6.50); Neutrophils % (auto) 56.8 %; Platelet Count 446 K/uL (130-400); RDW Coefficient of Variation 15.4 % (11.5-14.5); RDW Standard Deviation 53.8 fL (36.4-46.3); Red Blood Count 3.34 M/uL (4.70-6.10)
--- NOTE | 2022-10-29 02:02 | Communication Note ---
Date of Service: October 29, 2022 Overnight issues 125 AM Patient in and out of A-fib as per RN. Heart rate 90-110s, SBP 140s as per RN. AP IV Lopressor now Check a.m. electrolytes 550 AM Forrest catheter taken out by RN due to concern for blockage given poor drainage. Blood clot noted at the end of Forrest catheter. RN unable to reinsert Forrest catheter. Patient with hematuria and burning discomfort. AP Hematuria Failed Forrest catheter re-insertion Hold antiplatelet Rx and Lovenox for now. Urology consult in a.m.
[2022-10-29 02:20] LABS: BUN Creatinine Ratio 27.1 (10-20); Calcium 9.2 mg/dl (8.6-10.3); Creatinine Clr Calc Pharmacy 76.3 ml/min; Est GFR (African American) 98.1 ml/min; Est GFR (Non-African American) 84.6 ml/min; Magnesium 2.3 mg/dl (1.7-2.4); Potassium 3.3 mmol/L (3.5-5.1)
[2022-10-29] MEDS: POTASSIUM CHLORIDE / WTR 10 MEQ/100 ML PLCT IV SCH ×5 (02:21→06:35)
[2022-10-29 02:43] LABS: Partial Thromboplastin Ratio 0.8; Partial Thromboplastin Time 23.4 Seconds (21.0-31.0)
[2022-10-29] MEDS ORDERED: POTASSIUM CHLORIDE CRTAB 20 MEQ TABCR PO ONE (04:00)
[2022-10-29] MEDS: LEVOTHYROXINE SODIUM 75 MCG TABLET PO SCH (05:58)
[2022-10-29] MEDS ORDERED: POTASSIUM CHLORIDE PWD 20 MEQ PACK PO STA (06:11)
[2022-10-29] MEDS ORDERED: PHENAZOPYRIDINE HCL 100 MG TAB PO PRN (06:23)
[2022-10-29] MEDS: GABAPENTIN 300 MG CAP PO SCH ×3 (07:56→20:48)
[2022-10-29] MEDS: CHOLECALCIFEROL 1,000 UNITS 25 MCG TAB PO SCH ×2 (07:56→20:48)
[2022-10-29] MEDS: METOPROLOL SUCC 25MG EXT REL TAB PO SCH ×2 (07:57→20:48)
[2022-10-29] MEDS: DULoxetine HCL 30 MG CAP PO SCH (07:57)
[2022-10-29] MEDS: FINASTERIDE 5 MG TAB PO SCH (07:59)
[2022-10-29] MEDS: FLUTICASONE/VILANTEROL 200/25MCG 14 PUFFS/INHALER INH SCH (08:01)
[2022-10-29] MEDS: DOCUSATE SODIUM 100 MG CAP PO SCH ×2 (08:01→20:51)
[2022-10-29] MEDS: TAMSULOSIN HCL 0.4 MG CAP PO SCH (08:02)
[2022-10-29] MEDS: POLYETHYLENE (MIRALAX) 17 GM PACK PO SCH (08:02)
[2022-10-29] MEDS: predniSONE 20 MG TAB PO SCH (08:04)
[2022-10-29] MEDS: PANTOprazole 40 MG TAB PO SCH (08:05)
[2022-10-29] MEDS: ATORVASTATIN 40 MG TAB PO SCH (08:08)
[2022-10-29] MEDS: cefTRIAXone SODIUM 2,000 MG in DEXTROSE 5% AD-VAN 50 ML IV SCH (09:05)
--- NOTE | 2022-10-29 10:45 | Cardiology Progress Note ---
Date of Service October 29, 2022 Assessment & Plan (1) Closed femur fracture: (2) Altered mental status: (3) PSVT (paroxysmal supraventricular tachycardia): (4) ASCVD (arteriosclerotic cardiovascular disease): (5) Hematuria: (6) Moderate persistent asthma: Plan Multivessel coronary heart disease. Catheterization by Dr. Dennis on June 05, 2016 demonstrated multivessel coronary artery disease with a 50% proximal LAD stenosis, 70% mid LAD stenosis, 90% ostial 1st diagonal stenosis that paralleled the LAD, and a 70% ostial RPL 2 stenosis. Status post 2017 plain balloon angioplasty of the LAD for which chronic clopidogrel therapy has been continued. Continue medical management. Sick Sinus Syndrome status post June 06, 2016 dual-chamber permanent pacemaker. Device interrogation performed this admission, see below. Supraventricular tachycardia at times with associated hypotension. Increase metoprolol succinate dosing cautiously noting history of moderate persistent asthma, bronchiectasis. Hypokalemia. Recommend achievement and maintaining normokalemia, no rmomagnesemia. No overt indication for anticoagulation from a cardiac standpoint, and patient is high risk for such. Hypertension. Increase metoprolol as above. Add low dose ARB, losartan. Admission and Anticipated Discharge Date Admission Date: October 25, 2022 Supervising Physician Co-Signing Physician Notes Patient seen and examined at the bedside. Somewhat of a poor historian. Denies chest pain or shortness of breath. No orthopnea, PND, or lower extremity edema. Telemetry reveals sinus rhythm in the 70s-80s. Occasional episodes of atrial tachycardia recorded. PE: VSS. Gen: NAD, awake and alert. Heart: Regular rhythm, normal S1-S2. No murmur. Lungs: Clear bilateral, no rales, rhonchi, wheeze. Extremities: Left knee localized edema. A/P: Agree with above PA-C history, physical exam, assessment and plan. Agree with cautious titration of metoprolol. Continue telemetry monitoring. Subjective Patient seen and examined. Chart, medications, and telemetry reviewed. Lying flat. Denies acute dyspnea, orthopnea, PND, or peripheral edema. No chest pain. No palpitations. Personal review of telemetry demonstrates sinus as a predominant rhythm, heart rates currently in the 70s. No overt atrial fibrillation/flutter. Short bursts appear to be SVT/AVNRT. ? Occasional ventricular paced beats Pacemaker interrogation on October 26, 2022 demonstrated appropriate function. Immanuel garcia longevity: 4 years. Atrial paced 58% of the time. Time in AT/AF: Less than 0.1%, a total of 38 minutes from August 06, 2022 to October 26, 2022 Review of Systems Review of Systems: A complete and accurate review of systems was unable to be obtained due to the patient's condition/status. Physical Exam Physical Exam: Coagulation 10/29/22 Range/Units 01:42 APTT 23.4 (21.0-31.0) Seco nds CBC 10/29/22 Range/Units 01:42 WBC 6.20 (4.8-10.8) K/ul RBC 3.34 L (4.70-6.10) M/uL Hgb 10.9 L (14.0-18.0) g/dl Hct 32.2 L (42.0-52.0) % Plt Count 446 H (130-400) K/uL Neut # (Auto) 3.52 (1.40-6.50) K/uL Lymph # (Auto) 1.75 (1.2-3.4) K/uL Barnes # (Auto) 0.83 H (0.11-0.59) K/uL Eos # (Auto) 0.05 (0-0.50) K/uL Baso # (Auto) 0.04 (0-0.2) K/uL Comprehensive Metabolic Panel 10/29/22 Range/Units 01:42 Sodium 139 (136-145) mmol/L Potassium 3.3 L (3.5-5.1) mmol/L Chloride 105 (98-107) mmol/L Carbon Dioxide 25 (21-32) mmol/L BUN 23 (6-23) mg/dl Creatinine 0.85 (0.6-1.4) mg/dl Glucose 128 H (70-99(Fasting)) mg/dl Calcium 9.2 (8.6-10.3) mg/dl Intake and Output 10/28/22 10/29/22 10/29/22 22:59 06:59 14:59 Intake Total 211.667 / 281.667 Output Total 403 / 482 76 / 482 Balance -403 / -200.333 135.667 / -200.333 Intake: IV 211.667 / 281.667 Potassium Chlo ride / Wtr 10 meq 211.667 / 211.667 In 100 ml @ 10 0 mls/hr IV Q1H FELIX Rx#:[id number] Output: Urine Amount (Ca theter) 400 / 475 75 / 475 Forrest/Indwelli ng 400 / 475 75 / 475 # Bowel Movement s Other: Weight 77.9 kg Weight Measureme nt Method Built in [facility] Results & Data Vital Signs (Past 12 Hours) Vital Signs Temp Pulse Pulse Resp BP BP Pulse Ox 10/29/22 08:33 10/29/22 07:33 36.5 C 71 18 175/83 H 98 10/29/22 03:00 36.4 C L 59 L 22 168/84 H 97 10/29/22 01:30 142/95 H 10/29/22 02:03 60 10/28/22 23:00 36.4 C L 66 23 163/81 H 96 O2 Del Method O2 Del Method 10/29/22 08:33 Room Air 10/29/22 07:33 Room Air 10/29/22 03:00 Room Air 10/29/22 01:30 10/29/22 02:03 10/28/22 23:00 Room Air Diagnostic Findings September 27, 2021 TTE Interpretation Summary ([facility]): Normal size left ventricle. Moderate concentric LVH. Normal LV wall 55 to 60%. Moderate aortic valve sclerosis without significant stenosis. Mild aortic regurgitation. (1) Closed femur fracture Encounter type: subsequent encounter Femur location: distal, unspecified portion Fracture healing: with delayed healing Fracture morphology: unspecified fracture morphology Laterality: left Qualified Code(s): S72.402G - Unspecified fracture of lower end of left femur, subsequent encounter for closed fracture with delayed healing
--- NOTE | 2022-10-29 11:03 | Urology Consultation ---
Date of Consultation October 29, 2022 Assessment & Plan (1) Hematuria: 77-year-old male with multiple comorbidities and recent ORIF of left distal femur who was admitted on 10/25/22 after an unwitnessed fall and altered mental status. He subsequently developed hematuria and possible urinary retention during admission. Urology is consulted for hematuria and urinary retention. Patient remains afebrile, hemodynamically stable. Labs reviewedcreatinine 0.85, WBC 6.20, hemoglobin 10.9. Urinalysis on arrival was negative for blood, 0-4 RBC/hpf. Urine and blood cultures on 10/25 showed no growth. He was treated empirically with ceftriaxone, now discontinued. He developed hematuria during admission, felt to be due to trauma of patient pulling on catheter. His anticoagulation is currently on hold. Forrest catheter was removed this morning after nursing was unable to irrigate. Nursing was unable to replace Forrest catheter. Bladder scans have been low since catheter removal this am, 80 mL at 11:20 am per nursing. Since bladder scans remain low, can monitor without catheter for now. Monitor for void/urine output. Continue to monitor with bladder scans. Forrest can be replaced if patient develops retention. Continue Tamsulosin and Finasteride. Will order stat renal ultrasound for further evaluation/rule out obstruction. Hematuria work-up can likely be completed outpatient pending imaging and clinical course. Urology will continue to follow. History of Present Illness Reason for Consultation: hematuria, urinary retention Attending Physician: Chris Gaston MD History of Present Illness This is a 77-year-old male with past medical history of CAD, SSS s/p pacemaker, diastolic CHF, BPH, and recent ORIF of left distal femur who was admitted on 10/25/22 after an unwitnessed fall and altered mental status. Urology is consulted for hematuria and urinary retention. Chart reviewed including notes, lab work, imaging and urine studies reviewed. He remains afebrile. Urinalysis on arrival was notable for trace leukocytes, 5- 10 WBCs, >30 epithelials; negative for blood, 0-4 RBC/hpf. Urine and blood cultures from 10/25 showed no growth. He was treated empirically with Ceftriaxone. Labs today - creatinine 0.85, WBC 6.20, Hgb 10.9. Forrest was inserted on his arrival. He then developed hematuria on 10/27 which was suspected to be due to trauma, patient pulling at catheter. Today nursing attempted to irrigate catheter due to low urine output and patient discomfort. Per nursing note, clot was unable to be cleared and Forrest was removed and unable to be reinserted. Bladder scan at 0500 was 0 mL. Bladder scan at 1120 was 80 mL. Patient seen and examined at bedside this AM. He is resting in bed in no apparent distress. He is oriented to self and place. He is otherwise pleasantly confused and unable to provide meaningful history. Allergies Allergy/AdvReac Type Severity Reaction Status Date / Time adhesive Allergy Unknown GOODE SKIN Verified 10/25/22 12:52 No Known Drug Allergies Allergy Unknown . Verified 09/26/21 22:54 latex Allergy Unknown Verified 10/25/22 12:52 Home Medications Medication Instructions Recorded Confirmed Type albuterol sulfate 2.5 mg/3 mL 2.5 mg inhalation Q4H PRN 09/26/21 10/25/22 History (0.083 %) solution for nebulization Shortness Of Breath Or Wheezing atorvastatin 80 mg tablet 80 mg PO DAILY 09/26/21 10/25/22 History cholecalciferol (vitamin D3) 25 25 mcg PO AMHS 09/26/21 10/25/22 History mcg (1,000 unit) tablet (Vitamin D3) clopidogrel 75 mg tablet 75 mg PO DAILY 09/26/21 10/25/22 History docusate sodium 100 mg tablet 100 mg PO BID 09/26/21 10/25/22 History duloxetine 30 mg capsule,delayed 30 mg PO DAILY 09/26/21 10/25/22 History release duloxetine 60 mg capsule,delayed 60 mg PO DAILY 09/26/21 10/25/22 History release finasteride 5 mg tablet 5 mg PO DAILY 09/26/21 10/25/22 History fluticasone propionate 50 2 spray intranasal DAILY PRN 09/26/21 10/25/22 History mcg/actuation nasal ALLERGIES spray,suspension levothyroxine 75 mcg tablet 75 mcg PO DAILY 09/26/21 10/25/22 History nitroglycerin 0.4 mg sublingual 0.4 mg sublingual DIRECTED PRN 09/26/2110/14 History tablet (Nitrostat) Chest Pain pantoprazole 40 mg tablet,delayed 40 mg PO DAILY 09/26/21 10/25/22 History release polyvinyl alcohol 1.4 % eye drops 1 drp OPR QID PRN Pain 09/26/21 10/25/22 History (Artificial Tears (polyvinyl alcohol)) tamsulosin 0.4 mg capsule 0.4 mg PO DAILY 09/26/21 10/25/22 History umeclidinium 62.5 mcg-vilanterol 1 inh inhalation DAILY 09/26/21 10/25/22 History 25 mcg/actuation powdr for inhalation (Anoro Ellipta) acetaminophen 325 mg tablet 650 mg PO Q4 PRN Fever Or Pain 10/25/22 10/25/22 History (Tylenol) albuterol sulfate 90 mcg/actuation 2 puff inhalation Q4 PRN Shortness 10/25/22 10/25/22 History aerosol inhaler Of Breath Or Wheezing amitriptyline 50 mg tablet 50 mg PO HS 10/25/22 10/25/22 History carboxymethylcellulose sodium 1 % 1 drp OPR QID PRN .eye 10/25/22 10/25/22 History eye drops (Artificial Tears pain,irritation,dry eye,itching (carboxymethylcellulose)) enoxaparin 30 mg/0.3 mL 30 mg subcut Q12H 10/25/22 10/25/22 History subcutaneous syringe fluticasone 250 mcg-salmeterol 50 1 inh inhalation BID 10/25/22 10/25/22 History mcg/dose blistr powdr for inhalation (Advair Diskus) gabapentin 600 mg tablet 600 mg PO TID 10/25/22 10/25/22 History ipratropium 0.5 mg-albuterol 3 mg 3 ml inhalation Q6H PRN Shortness 10/25/22 10/25/22 History (2.5 mg base)/3 mL nebulization Of Breath Or Wheezing soln metoprolol tartrate 25 mg tablet 25 mg PO BID 10/25/22 10/25/22 History omeprazole 40 mg capsule,delayed 40 mg PO DAILY 10/25/22 10/25/22 History release ondansetron 4 mg disintegrating 4 mg translingual Q8H PRN Nausea 10/25/22 10/25/22 History tablet oxycodone 5 mg tablet 5 mg PO Q4H PRN Pain 10/25/22 10/25/22 History polyethylene glycol 3350 17 gram 17 g PO DAILY 10/25/22 10/25/22 History oral powder packet (Miralax) prednisone 20 mg tablet 40 mg PO .DAILY FOR 5 DAYS 10/25/22 10/25/22 History vit no.95-ferrous 1 tab PO DAILY 10/25/22 10/25/22 History fumarate 28 mg-folic acid 800 mcg tablet () sennosides 8.6 mg tablet (senna) 17.2 mg PO BID 10/25/22 10/25/22 History Patient History Medical History BPH (benign prostatic hyperplasia) Carotid stenosis Cervical radiculopathy Chronic anticoagulation Chronic hip pain after total replacement of right hip joint Chronic right SI joint pain COPD (chronic obstructive pulmonary disease) Depression Diastolic dysfunction DVT (deep venous thrombosis) (01/29/14) Emphysema of lung Exertional shortness of breath Fingertip amputation History of left heart catheterization (LHC) HLD (hyperlipidemia) HTN (hypertension) Hypothyroidism Intercostal neuralgia Left shoulder pain Lumbar post-laminectomy syndrome Lung infiltrate Myofascial pain Neuritis of left ulnar nerve 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 Osteoarthritis of left knee Pacemaker Post-thoracotomy pain syndrome RLS (restless legs syndrome) Spinal cord stimulator status SSS (sick sinus syndrome) Symptomatic bradycardia Surgical History H/O knee surgery History of hip surgery History of total knee arthroplasty Hx of cholecystectomy Status post insertion of spinal cord stimulator Family History Mother Heart disease Social History Smoking Status: Never smoker Tobacco Type: Cigarettes Hx Alcohol Use: No Hx Substance Use: No Preferred Language: Finnish Communication Ability: Impaired Tool Room Lathe Operator Required: No Beliefs That Will Affect Care: None marital status: Current Living Situation: Rehab Current Living Situation Comment: [facility] current occupational status: disabled Feels Safe at Home: Yes Safety Concerns: Feels Safe At This Time Assistive Devices: Walker Review of Systems Review of Systems: All systems reviewed & are unremarkable except as noted in HPI & below and Unobtainable due to cognitive status Physical Exam Constitutional: no acute distress Respiratory: normal respiratory effort; no respiratory distress and no labored breathing Gastrointestinal (Abdomen): Inspection/Auscultation: abdomen normal to inspection; abdomen not distended Percussion/Palpation: abdomen soft; abdomen nontender Neurologic: awake Psychiatric: Orientation: alert, oriented to person, oriented to place and cooperative Results & Data Vital Signs (Past 12 Hours) Vital Signs Temp Pulse Pulse Resp BP BP Pulse Ox 10/29/22 08:33 10/29/22 07:33 36.5 C 71 18 175/83 H 98 10/29/22 03:00 36.4 C L 59 L 22 168/84 H 97 10/29/22 01:30 142/95 H 10/29/22 02:03 60 O2 Del Method O2 Del Method 10/29/22 08:33 Room Air 10/29/22 07:33 Room Air 10/29/22 03:00 Room Air 10/29/22 01:30 10/29/22 02:03 PG Care Time/CCT Total # of Minutes Spent Total Time Spent with Patient: Total time spent is greater than 50% in coordination of care (as documented) at patient's floor/unit and/or counseling patient: Coding Level of Care Code 61003 INT INP/OBS CARE 3/75MIN Diagnoses Hematuria R31.9
[2022-10-29] MEDS ORDERED: FUROSEMIDE 40 MG/4 ML VIAL IV ONE (11:14)
[2022-10-29] MEDS: LOSARTAN POTASSIUM 25 MG TAB PO SCH (12:29)
[2022-10-29 14:06] LABS: BUN Creatinine Ratio 24.1 (10-20); Blood Urea Nitrogen 21 mg/dl (6-23); Calcium 9.3 mg/dl (8.6-10.3); Carbon Dioxide 24 mmol/L (21-32); Chloride 104 mmol/L (98-107); Creatinine Clr Calc Pharmacy 74.6 ml/min; Est GFR (African American) 97.2 ml/min; Est GFR (Non-African American) 83.8 ml/min; Glucose 160 mg/dl (70-99(Fasting))
--- NOTE | 2022-10-29 14:45 | Ultrasound Report ---
RENAL ULTRASOUND HISTORY: Acute hematuria hematuria COMPARISON: CT chest 02/24/2020 FINDINGS: Right kidney: 9.5 x 5.4 x 5.7 cm. There are a few subcentimeter cysts measuring up to 8 mm. No hydron ephrosis. Normal corticomedullary differentiation and cortical thickness. Left kidney: 9.4 x 6.4 x 5.1 cm. 9 mm hypoechoic probable cyst within the midpole. No hydronephrosis. Normal corticomedullary differentiation and cortical thickness. Bladder: Partial distention of the urinary bladder with mild wall thickening and prostamegaly. The bi lateral ureteral jets were identified. IMPRESSION: 1. No renal calculi or hydronephrosis. 2. Prostatomegaly with findings suggestive of chronic bladder outlet obstruction. ACT 112: Negative or not required by law. Electronically signed by: Doug Pinon M.D. 10/29/2022 2:43 PM
--- NOTE | 2022-10-29 15:20 | Hospitalist Progress Note ---
Date of Service October 29, 2022 Assessment & Plan (1) Altered mental status: (2) Fall: (3) Closed femur fracture: (4) Hypothyroidism: (5) Asthma, allergic: (6) Atherosclerotic heart disease of [place] coronary artery without angina pectoris: (7) Deep vein thrombosis of distal lower extremity: (8) Major depressive disorder: (9) BPH (benign prostatic hyperplasia): (10) COPD (chronic obstructive pulmonary disease): (11) Diastolic dysfunction: (12) SSS (sick sinus syndrome): (13) Pacemaker: (14) HTN (hypertension): (15) HLD (hyperlipidemia): (16) Depression: (17) RLS (restless legs syndrome): Plan Patient is a 77 yr male with H/O Sick sinus syndrome s/p pacemaker placement, diastolic CHF, BPH, Chronic pain syndrome, Dyslipidemia, CAD, MDD, Mendez's, GERD, HTN, COPD/asthma, RLS, Hx of DVT who presents after an unwitnessed fall from [facility]. Pt reportedly developed AMS after receiving 10mg of morphine en route to the hospital. Acute comminuted mildly displaced periprosthetic distal left femoral fracture H/O Left Hip surgery with IM nail recently Secondary to fall --Knee X ray:Acute comminuted mildly displaced periprosthetic distal left femoral fracture, as described above. Fracture is adjacent to the distal aspect of the intramedullary kalee and extends to the femoral component of the left knee arthropathy. --Hip/Pelvic X ray:No acute fracture is seen involving the hips or bony pelvis. Comminuted periprosthetic fracture of the distal left femoral metadiaphysis with displaced fragments as detailed above. 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 Fracture may extend to the left knee arthroplasty. The left proximal femur appears intact. --CT Head:There is no hemorrhage, mass effect, or evidence of acute territorial ischemia by CT criteria. -- Knee immobilizer for comfort Weightbearing as tolerated to the left lower extremity Continue pain control Appreciate orthopedics input Continue PT OT Minimize narcotic pain meds as able Rehab as able Acute metabolic encephalopathy Likely secondary to pain medications, delirium --CT head:There is no hemorrhage, mass effect, or evidence of acute territorial ischemia by CT criteria. Minimize Narcotics as able Empirically received Rocephin for suspected UTI Urine culture negative Blood cultures negative to date Appreciate neurology input EEG pending Mental status slowly improving Paroxysmal supraventricular tachycardia Pacemaker interrogation done: SVT, atrial fibrillation/atrial flutter. Appreciate cardiology input Amiodarone discontinued Continue metoprolol Poor candidate for anticoagulation Metoprolol dose increased to 37.5 mg twice a day Replace and monitor electrolytes Hematuria: Urinary retention Secondary to Traumatic Cath Renal USD:No renal calculi or hydronephrosis. Prostatomegaly with findings suggestive of chronic bladder outlet obstruction. Bladder scan as needed Appreciate urology input Continue tamsulosin and finasteride Anticoagulation on hold due to hematuria Chronic conditions: CAD, CHF, HLD, HLD continue Plavix, metoprolol, statin BPH On Flomax Chronic pain syndrome Decreased Cymbalta dose Resumed gabapentin dose Hypothyroidism continue levothyroxine COPD/asthma continue home inhalers Also on prednisone MDD RLS Continue home meds DVT Px: Lovenox SQ--Held Re: Hematuria Code Status: Full Code Admission and Anticipated Discharge Date Admission Date: October 25, 2022 Subjective Patient is seen and examined at bedside More alert, awake and oriented to person this morning No apparent distress on exam SVTs intermittently overnight States having left hip pain Denies any chest pain, dyspnea, dizziness EEG pending Review of Systems Review of Systems: Other Physical Exam Physical Exam: Physical Exam: Vitals signs as noted above General Appearance:Moderately built and nourished, Apparent distress due to pain/spasms Head: normocephalic, Atraumatic Eyes: normal inspection, EOMI Neck: supple, Trachea midline Respiratory/Chest: Normal breath sounds, CTA, No accessory muscle use Cardiovascular: S1, S2, No murmur Abdomen/GI:Soft, Non tender, Bowel sounds present Extremities/Musculoskeletal:normal inspection, no edema, Left LE in immobilizer Neurologic/Psych:AAOX1, grossly no focal deficits Skin: normal color, warm Results & Data Results & Data Vital Signs (Past 12 Hours) Vital Signs Temp Pulse Resp BP Pulse Ox O2 Del Method O2 Del Method 10/29/22 12:05 36.9 C 68 19 170/73 H 92 Room Air 10/29/22 08:33 Room Air 10/29/22 07:33 36.5 C 71 18 175/83 H 98 Room Air Laboratory Results Short CBC 10/29/22 Range/Units 01:42 WBC 6.20 (4.8-10.8) K/ul Hgb 10.9 L (14.0-18.0) g/dl Hct 32.2 L (42.0-52.0) % Plt Count 446 H (130-400) K/uL BMP 10/29/22 10/29/22 01:42 13:17 Sodium 139 TNP Potassium 3.3 L TNP Chloride 105 104 Carbon Dioxide 25 24 BUN 23 21 Creatinine 0.85 0.87 Glucose 128 H 160 H Calcium 9.2 9.3 (2) Fall Encounter type: initial encounter Qualified Code(s): W19.XXXA - Unspecified fall, initial encounter (3) Closed femur fracture Encounter type: subsequent encounter Femur location: distal, unspecified portion Fracture healing: with delayed healing Fracture morphology: unspecified fracture morphology Laterality: left Qualified Code(s): S72.402G - Unspecified fracture of lower end of left femur, subsequent encounter for closed fracture with delayed healing
[2022-10-29 15:30] LABS: Magnesium 2.1 mg/dl (1.7-2.4); Potassium 4.2 mmol/L (3.5-5.1)
--- NOTE | 2022-10-29 18:52 | Neurology Progress Note ---
Date of Service October 29, 2022 Assessment & Plan (1) Altered mental status: Plan: Impression: The patient became very encephalopathic after receiving narcotic analgesic initially in the emergency department. However, he was very confused and agitated yesterday. His mental status has been cleared and he is currently alert and oriented x3. Repeat head CT is unremarkable. Recommendations: Limit use of sedatives, anticholinergics, and narcotics. Frequent orientation. Delirium precautions. EEG to evaluate cerebral functioning and to rule out subclinical seizures. Physical therapy and supportive care. (2) Fall: Plan: Impression: The patient fell prior to arrival to the emergency department. There was no reported head trauma. The patient has been followed by orthopedics. (3) Closed femur fracture: (4) PSVT (paroxysmal supraventricular tachycardia): Plan: Impression: The patient has history of sick sinus syndrome, status post pacemaker placement. He has been followed by cardiology. Admission and Anticipated Discharge Date Admission Date: October 25, 2022 Subjective The patient's mental status has been improved. He is currently alert and oriented place, person and time. He denies any numbness, weakness, dizziness, chest pain, abdominal pain. He reports some chronic back pain which is not worse than before. EEG is still pending. Review of Systems Review of Systems: All systems reviewed & are unremarkable except as noted in Subjective Physical Exam Physical Exam: General Examination: Constitutional: Well developed person in no acute distress. HENT: Normal exam with inspection. CV: Hearth rhythm is regular. Neck: Supple, ? carotid bruits. Lungs: Non-labored and comfortable breathing. Abdomen: Soft, non-tender, non-distended. Skin: No rash or ecchymosis. Extremities: No edema or cyanosis. Left knee is in immobilizer. NEUROLOGICAL EXAMINATION: Mental Status: Alert and oriented place, person and time. Cranial Nerves: 212 are intact. Funduscopy: Unable to visualize Motor: 5 out of 5 strength in bilateral upper extremities, and at least 4+ out of 5 strength in bilateral lower extremities. Tone: Normal without spasticity or rigidity. Sensory: Essentially intact with decreased vibratory sensation in toes. Coordination: Normal with [id number] testing bilaterally. Speech: Fluent, comprehension is intact. Gait: Unable to assess. Musculoskeletal: Normal muscle bulk, no atrophy. DTRs: 2+ in upper extremities symmetrically. Plantar reflexes are bilaterally downgoing. Results & Data Vital Signs (Past 12 Hours) Vital Signs Temp Pulse Resp BP Pulse Ox O2 Del Method O2 Del Method 10/29/22 12:05 36.9 C 68 19 170/73 H 92 Room Air 10/29/22 08:33 Room Air 10/29/22 07:33 36.5 C 71 18 175/83 H 98 Room Air Laboratory Results Laboratory Results - last 24 hr 10/29/22 10/29/22 10/29/22 01:42 01:42 01:42 WBC 6.20 RBC 3.34 L Hgb 10.9 L Hct 32.2 L MCV 96.4 MCH 32.6 MCHC 33.9 RDW Std Deviation 53.8 H RDW Coeff of Jarrett 15.4 H Plt Count 446 H MPV 10.0 Immature Gran % (Auto) 0.2 Neut % (Auto) 56.8 Lymph % (Auto) 28.2 Bacon % (Auto) 13.4 Eos % (Auto) 0.8 Baso % (Auto) 0.6 Neut # (Auto) 3.52 Lymph # (Auto) 1.75 Bacon # (Auto) 0.83 H Eos # (Auto) 0.05 Baso # (Auto) 0.04 Immature Gran # (Auto) 0.01 APTT 23.4 PTT Ratio 0.8 Sodium 139 Potassium 3.3 L Chloride 105 Carbon Dioxide 25 Anion Gap 9 BUN 23 Creatinine 0.85 Est Cr Clr Drug Dosing 76.3 Est GFR ( Amer) 98.1 Est GFR (Non-Af Amer) 84.6 BUN/Creatinine Ratio 27.1 H Glucose 128 H Calcium 9.2 Magnesium 2.3 10/29/22 10/29/22 13:17 14:39 WBC RBC Hgb Hct MCV MCH MCHC RDW Std Deviation RDW Coeff of Jarrett Plt Count MPV Immature Gran % (Auto) Neut % (Auto) Lymph % (Auto) Bacon % (Auto) Eos % (Auto) Baso % (Auto) Neut # (Auto) Lymph # (Auto) Bacon # (Auto) Eos # (Auto) Baso # (Auto) Immature Gran # (Auto) APTT PTT Ratio Sodium TNP 137 Potassium TNP 4.2 D Chloride 104 Carbon Dioxide 24 Anion Gap TNP BUN 21 Creatinine 0.87 Est Cr Clr Drug Dosing 74.6 Est GFR ( Amer) 97.2 Est GFR (Non-Af Amer) 83.8 BUN/Creatinine Ratio 24.1 H Glucose 160 H Calcium 9.3 Magnesium TNP 2.1 Diagnostic Findings Cervical Spine CT 10/25/22 09:04 CT SCAN OF THE CERVICAL SPINE CLINICAL HISTORY: Trauma. Fall. COMPARISON STUDY: CT of the cervical spine dated 09/26/2021 and 09/04/2018. TECHNIQUE: CT scan of the cervical spine is performed from the skull base to the upper thoracic spine. Images are reviewed in the axial, sagittal, and coronal planes. IV contrast was not administered for this examination. A dose lowering technique was utilized adhering to the principles of ALARA. FINDINGS: Skeletal structures: The skeletal structures are osteopenic. There is no evidence of fracture or subluxation involving the cervical spine. Vertebral body height and alignment are maintained. There is straightening of the cervical lordosis. Anterior osteophytes are seen throughout. The odontoid process and lateral masses are intact. The atlantoaxial articulation is preserved noting productive degenerative change. The spinous processes appear intact. A 9 mm bone island is again seen in the body of C5. There is moderate to advanced multilevel cervical spondylosis. Uncovertebral and facet arthropathy contribute to neural foraminal narrowing at most levels. Intervertebral discs: There is moderate to severe disc space narrowing at C6-C7 with endplate sclerosis. Mild disc space narrowing is noted at the remaining cervical levels. Central canal: Posterior disc osteophyte complexes are seen at all cervical levels between C3-C4 and C6-C7. This likely contributes to multilevel acquired compromise of the central canal. Pacemaker leads are noted at the left thoracic inlet. Soft tissues: The prevertebral and paraspinous soft tissues are within normal limits. There is atherosclerotic calcification of the carotid bulbs. Calvarium: The visualized calvarium at the skull base appears intact. Brain parenchyma: Partially visualized brain parenchyma at the skull base is within normal limits. Sinuses and mastoids: The visualized paranasal sinuses are clear. The mastoid air cells are well pneumatized. Lung apices: There is apical scarring. Postsurgical change is noted at the left apex. IMPRESSION: 1. There is no evidence of fracture or subluxation involving the cervical spine. 2. Osteopenia and spondylotic changes as above. ACT 112: Negative or not required by law. Electronically signed by: Geoffrey Auguste M.D. 10/25/2022 9:54 AM Chest X-Ray 10/25/22 09:04 SINGLE VIEW CHEST CLINICAL HISTORY: Generalized weakness. FINDINGS: An AP, portable, upright chest radiograph is compared to study dated 06/08/2022 and correlated with chest CT dated 02/24/2020. A 2-lead cardiac pacemaker is unchanged in position. The heart is enlarged. There is pulmonary vascular congestion. Small pleural effusions are suspected. There is bibasilar scarring/atelectasis. No pneumothorax is seen. The skeletal structures are osteopenic. The bony thorax is grossly intact. An intrathecal lead projects over the lower thoracic spine. Cholecystectomy clips are noted in the right upper quadrant. IMPRESSION: 1. Cardiomegaly and cardiac pacemaker with pulmonary vascular congestion. 2. Small pleural effusions. ACT 112: Negative or not required by law. Electronically signed by: Geoffrey Auguste M.D. 10/25/2022 10:[address] 10/25/22 09:[address] WITHOUT CONTRAST CLINICAL HISTORY: fall, trauma COMPARISON STUDY: Facial bone CT April 14, 2020. TECHNIQUE: A maxillofacial CT was performed without IV contrast. Coronal and sagittal reformats were viewed. Automated exposure control was utilized for the study. A dose lowering technique was utilized adhering to the principles of ALARA. FINDINGS: No acute facial bone fracture is identified. Alignment of the temporomandibular joints is anatomic. There is no acute skull base fracture. Globes are intact. There is no retrobulbar hematoma. The head CT will be reported separately. Numerous teeth are absent. IMPRESSION: No acute facial fracture. ACT 112: Negative or not required by law. Electronically signed by: Boyd Chandler M.D. 10/25/2022 10:51 AM Femur X-Ray 10/25/22 09:04 SINGLE VIEW PELVIS; 2 VIEWS LEFT HIP; 2 VIEWS LEFT FEMUR CLINICAL HISTORY: Fall. Left leg injury. FINDINGS: An AP view of the pelvis, AP and crosstable lateral views of the left hip, with AP and crosstable lateral views of the left femur are obtained. Comparison is made to pelvic x-ray dated 06/23/2018. The skeletal structures are osteopenic. There is no radiographic evidence of acute fracture involving the hips or bony pelvis. Bilateral hip arthroplasties are in near-anatomic alignment. No periprosthetic lucency is seen. Sclerotic changes noted in the sacroiliac joints. There is chronic deformity of the left proximal femur with a buttress plate in place along the lateral cortex. An intramedullary nail is present in the distal femur and a left knee arthroplasty is in place. There is a comminuted fracture of the distal left femoral metadiaphysis with displaced fragments. The largest fragments are medially displaced by up to 8 mm. Overlying soft tissue edema is noted. Fracture is located around the intramedullary nail and may extend to the left knee arthroplasty. No acute fracture is seen involving the left proximal femur. There is mild atherosclerotic calcification of the femoral artery. Moderate fecal retention is noted in the rectosigmoid. IMPRESSION: 1. No acute fracture is seen involving the hips or bony pelvis. 2. Comminuted periprosthetic fracture of the distal left femoral metadiaphysis with displaced fragments as detailed above. 3. 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 Fracture may extend to the left knee arthroplasty. 4. The left proximal femur appears intact. Electronically signed by: Geoffrey Auguste M.D. 10/25/2022 10:[address] 10/25/22 09:04 CT SCAN OF THE BRAIN WITHOUT IV CONTRAST CLINICAL HISTORY: Fall. COMPARISON STUDY: CT of the brain dated 09/26/2021. TECHNIQUE: Unenhanced axial CT scan of the brain is performed from the vertex to the skull base. A dose lowering technique was utilized adhering to the principles of ALARA. FINDINGS: Brain parenchyma: There is age-related involutional change noting [id number] subcortical and periventricular microangiopathic disease. There is no hemorrhage, mass effect, or evidence of acute territorial ischemia by CT criteria. Jordan-white matter differentiation is preserved. No extra-axial fluid collection is seen. Ventricles, sulci, cisterns: Prominent secondary to involutional change. Intracranial vasculature: There is atherosclerotic calcification of the cavernous carotid and vertebral arteries. Calvarium: The skeletal structures are osteopenic. No depressed calvarial fracture is seen. Sinuses and mastoids: The visualized paranasal sinuses are clear. The mastoid air cells are well pneumatized. Orbits: The bony orbits are grossly intact. IMPRESSION: There is no hemorrhage, mass effect, or evidence of acute territorial ischemia by CT criteria. ACT 112: Negative or not required by law. Electronically signed by: Geoffrey Auguste M.D. 10/25/2022 9:49 AM Hip/Pelvis X-Ray 10/25/22 09:04 SINGLE VIEW PELVIS; 2 VIEWS LEFT HIP; 2 VIEWS LEFT FEMUR CLINICAL HISTORY: Fall. Left leg injury. FINDINGS: An AP view of the pelvis, AP and crosstable lateral views of the left hip, with AP and crosstable lateral views of the left femur are obtained. Comparison is made to pelvic x-ray dated 06/23/2018. The skeletal structures are osteopenic. There is no radiographic evidence of acute fracture involving the hips or bony pelvis. Bilateral hip arthroplasties are in near-anatomic alignment. No periprosthetic lucency is seen. Sclerotic changes noted in the sacroiliac joints. There is chronic deformity of the left proximal femur with a buttress plate in place along the lateral cortex. An intramedullary nail is present in the distal femur and a left knee arthroplasty is in place. There is a comminuted fracture of the distal left femoral metadiaphysis with displaced fragments. The largest fragments are medially displaced by up to 8 mm. Overlying soft tissue edema is noted. Fracture is located around the intramedullary nail and may extend to the left knee arthroplasty. No acute fracture is seen involving the left proximal femur. There is mild atherosclerotic calcification of the femoral artery. Moderate fecal retention is noted in the rectosigmoid. IMPRESSION: 1. No acute fracture is seen involving the hips or bony pelvis. 2. Comminuted periprosthetic fracture of the distal left femoral metadiaphysis with displaced fragments as detailed above. 3. 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 Fracture may extend to the left knee arthroplasty. 4. The left proximal femur appears intact. Electronically signed by: Geoffrey Auguste M.D. 10/25/2022 10:56 AM Knee X-Ray 10/25/22 09:04 XR knee LT 1 or 2V routine CLINICAL HISTORY: fall, swelling, trauma COMPARISON: Left knee radiographs October 29, 2018. FINDINGS: Left knee arthroplasty is noted. There is also an intramedullary kalee within the left femur. Note is made of an acute comminuted mildly displaced periprosthetic distal left femoral fracture. Fracture extends from the level the distal shaft of the left femur to the femoral component of the knee arthroplasty. Fracture is displaced 8 mm. There is no proximal left tibial or fibular fracture. IMPRESSION: Acute comminuted mildly displaced periprosthetic distal left femoral fracture, as described above. Fracture is adjacent to the distal aspect of the intramedullary kalee and extends to the femoral component of the left knee arthropathy. ACT 112: Negative or not required by law. Electronically signed by: Boyd Chandler M.D. 10/25/2022 11:03 AM KUB X-Ray 10/28/22 10:54 [facility]UB CLINICAL HISTORY: Abdominal pain. COMPARISON STUDY: KUB June 08, 2017. FINDINGS: This study was technically difficult to obtain. This study is mildly compromised by motion artifact. The lower pelvis was not included. The bowel gas pattern is within normal limits. Intracanalicular stimulator is present. IMPRESSION: No evidence for a bowel obstruction. Exam mildly compromised by artifact. ACT 112: Negative or not required by law. Electronically signed by: Boyd Chandler M.D. 10/28/2022 11:[address] 10/28/22 16:47 CT OF THE HEAD WITHOUT CONTRAST CLINICAL HISTORY: Altered mental status. Fall. Head injury. COMPARISON STUDY: Head CTs September 26, 2021 and October 25, 2022. TECHNIQUE: Helical axial images of the head were obtained without IV contrast. Automated exposure control was utilized for the study. A dose lowering technique was utilized adhering to the principles of ALARA. FINDINGS: This exam is mildly compromised by motion artifact. No acute intracranial hemorrhage, midline shift or mass effect is present. The ventricular system is stable. The basal cisterns are patent. No extra-axial collections are present. There are no findings to suggest acute dural sinus thrombosis or acute territorial infarct. No significant calvarial abnormalities are present. Visualized portions of the sinuses and mastoid air cells are clear. IMPRESSION: 1. Exam mildly compromised by motion artifact. No acute intracranial findings. 2. No calvarial fractures identified. ACT 112: Negative or not required by law. Electronically signed by: Boyd Chandler M.D. 10/28/2022 6:[address] 10/28/22 17:08 CT lumbar spine wo con CLINICAL HISTORY: Fall COMPARISON STUDY: Lumbar spine MRI November 10, 2008. CT of the abdomen and pelvis February 28, 2009. TECHNIQUE: Axial images of the lumbar spine were obtained without IV contrast. Sagittal and coronal reconstructions were viewed. Automated exposure control was utilized for the study. A dose lowering technique was utilized adhering to the principles of ALARA. FINDINGS: For purposes of numbering on this exam, the L5-S1 disc space is assigned to axial image 387 of 451. Intracanalicular electrodes enter the canal at the L1-L2 level. Leads terminate at the inferior T7 level, as shown on the thoracic spine CT which will be reported separately. Alignment of the lumbar spine is anatomic with the exception of mild leftward curvature of the mid to lower lumbar spine. There is no lumbar spine fracture. No osseous lesions are identified. There is moderate multilevel facet arthrosis. Mild multilevel endplate osteophytosis is present. Paravertebral soft tissues are unremarkable. Bilateral hip arthroplasties are incidentally noted on the middle card tender tomogram. IMPRESSION: 1. No acute lumbar spine fracture or subluxation. 2. Moderate multilevel facet arthrosis and mild degenerative disc disease within the lumbar spine. ACT 112: Negative or not required by law. Electronically signed by: Boyd Chandler M.D. 10/28/2022 6:[address] 10/28/22 17:08 CT OF THE THORACIC SPINE CLINICAL HISTORY: Fall. COMPARISON STUDY: Thoracolumbar spine radiographs October 03, 2015. Chest CT February 24, 2020. TECHNIQUE: Helical axial images of the thoracic spine were obtained. Sagittal and coronal reconstructions were viewed. Automated exposure control was utilized for the study. A dose lowering technique was utilized adhering to the principles of ALARA. FINDINGS: No acute thoracic spine fracture is identified. No suspicious osseous lesions are identified. There is mild multilevel disc space narrowing and osteophytosis within the thoracic spine. Intracanalicular electrodes terminate at the inferior T7 level. Paravertebral soft tissues are unremarkable. No acute fractures are identified within visualized portions of the posterior ribs. Mildly enlarged mediastinal lymph nodes are unchanged since CT of February 24, 2020. No pneumothorax is identified within visualized portions of the chest. IMPRESSION: No acute thoracic spine fracture or subluxation. ACT 112: Negative or not required by law. Electronically signed by: Boyd Chandler M.D. 10/28/2022 6:35 PM Renal Ultrasound 10/29/22 11:32 RENAL ULTRASOUND HISTORY: Acute hematuria hematuria COMPARISON: CT chest 02/24/2020 FINDINGS: Right kidney: 9.5 x 5.4 x 5.7 cm. There are a few subcentimeter cysts measuring up to 8 mm. No hydronephrosis. Normal corticomedullary differentiation and cortical thickness. Left kidney: 9.4 x 6.4 x 5.1 cm. 9 mm hypoechoic probable cyst within the midpole. No hydronephrosis. Normal corticomedullary differentiation and cortical thickness. Bladder: Partial distention of the urinary bladder with mild wall thickening and prostamegaly. The bilateral ureteral jets were identified. IMPRESSION: 1. No renal calculi or hydronephrosis. 2. Prostatomegaly with findings suggestive of chronic bladder outlet obstruction. ACT 112: Negative or not required by law. Electronically signed by: Doug Pinon M.D. 10/29/2022 2:43 PM Medications Administered Reviewed (2) Fall Encounter type: initial encounter Qualified Code(s): W19.XXXA - Unspecified fall, initial encounter (3) Closed femur fracture Encounter type: subsequent encounter Femur location: distal, unspecified portion Fracture healing: with delayed healing Fracture morphology: unspecified fracture morphology Laterality: left Qualified Code(s): S72.402G - Unspecified fracture of lower end of left femur, subsequent encounter for closed fracture with delayed healing
[2022-10-30] MEDS: LEVOTHYROXINE SODIUM 75 MCG TABLET PO SCH (05:49)
[2022-10-30] MEDS: LOSARTAN POTASSIUM 25 MG TAB PO SCH (09:15)
[2022-10-30] MEDS: predniSONE 20 MG TAB PO SCH (09:15)
[2022-10-30] MEDS: GABAPENTIN 300 MG CAP PO SCH ×3 (09:16→20:25)
[2022-10-30] MEDS: ATORVASTATIN 40 MG TAB PO SCH (09:16)
[2022-10-30] MEDS: DULoxetine HCL 30 MG CAP PO SCH (09:17)
[2022-10-30] MEDS: PANTOprazole 40 MG TAB PO SCH (09:17)
[2022-10-30] MEDS: TAMSULOSIN HCL 0.4 MG CAP PO SCH (09:18)
[2022-10-30] MEDS: METOPROLOL SUCC 25MG EXT REL TAB PO SCH ×2 (09:18→20:24)
[2022-10-30] MEDS: FINASTERIDE 5 MG TAB PO SCH (09:18)
[2022-10-30] MEDS: CHOLECALCIFEROL 1,000 UNITS 25 MCG TAB PO SCH ×2 (09:19→20:25)
[2022-10-30] MEDS: FLUTICASONE/VILANTEROL 200/25MCG 14 PUFFS/INHALER INH SCH (09:19)
[2022-10-30] MEDS: POLYETHYLENE (MIRALAX) 17 GM PACK PO SCH (09:19)
[2022-10-30] MEDS: DOCUSATE SODIUM 100 MG CAP PO SCH ×2 (09:19→20:24)
--- NOTE | 2022-10-30 09:32 | Cardiology Progress Note ---
Date of Service October 30, 2022 Assessment & Plan (1) Closed femur fracture: (2) Altered mental status: (3) PSVT (paroxysmal supraventricular tachycardia): (4) ASCVD (arteriosclerotic cardiovascular disease): (5) Hematuria: (6) Moderate persistent asthma: Plan Multivessel coronary heart disease. Catheterization by Dr. Dennis on June 05, 2016 demonstrated multivessel coronary artery disease with a 50% proximal LAD stenosis, 70% mid LAD stenosis, 90% ostial 1st diagonal stenosis that paralleled the LAD, and a 70% ostial RPL 2 stenosis. Status post 2017 plain balloon angioplasty of the LAD. Continue medical management. Supraventricular tachycardia at times with associated hypotension. Improved following titration of beta-kassie therapy. Continue metoprolol succinate 37.5 mg twice per day Moderate persistent asthma, bronchiectasis. Sick Sinus Syndrome status post June 06, 2016 dual-chamber permanent pacemaker. No overt indication for anticoagulation from a cardiac standpoint, and patient is high risk for such. Hypertension. Losartan added yesterday. Increase to 50 mg/day. Check metabolic panel. Signing off. Please contact with any cardiac questions or concerns. Admission and Anticipated Discharge Date Admission Date: October 25, 2022 Supervising Physician Co-Signing Physician Notes Patient seen and examined at the bedside. Poor historian. Denies chest pain or shortness of breath. Notes left lower extremity discomfort. Telemetry reveals sinus rhythm in the 70s-80s. No recurrent SVT over the past 24 hours. PE: VSS. Gen: NAD, awake and alert. Heart: Regular rhythm, normal S1-S2. No murmur. Lungs: Clear bilateral, no rales, rhonchi, wheeze. Extremities: Left knee localized edema. A/P: Agree with above PA-C history, physical exam, assessment and plan. Remains in sinus rhythm on telemetry. Continue current dose of beta-kassie therapy. Losartan added to improve blood pressure control. Continue telemetry monitoring. Subjective Seen and examined. Chart, medications, and telemetry reviewed. Lone complaint voiced that of left leg pain. No chest pain. Stable dyspnea, at baseline, without cough, chest congestion, orthopnea, or peripheral edema. No palpitations. Continuous radiation monitor reveals sinus with heart rates in the 60s to 80s. No episodes of SVT over the last 24 hours. Review of Systems Review of Systems: A complete and accurate review of systems was unable to be obtained due to the patient's condition/status. Physical Exam Physical Exam: General: Alert and oriented to person and place. NAD. HENT: Normocephalic. Atraumatic. Eyes: PER. Conjunctiva pink, sclera clear. Neck: No carotid bruits. No JVD. Heart: RRR. + Systolic murmur. Lungs: Diminished. Decreased. No wheeze. Abdomen: +BS. Soft. Nontender. No masses or organomegaly. Extremities: No distal lower extremity edema. No clubbing. No cyanosis. Limited neurological examination is without focal deficits. Pulses: radial=2/4, posterior tibial=2/4. Results & Data Vital Signs (Past 12 Hours) Vital Signs Temp Pulse Resp BP BP Pulse Ox O2 Del Method 10/30/22 07:00 36.8 C 65 18 186/84 H 96 Room Air 10/30/22 03:14 36.7 C 82 18 135/68 97 Room Air 10/29/22 23:33 36.4 C L 72 18 170/80 H 94 Room Air Laboratory Results Comprehensive Metabolic Panel 10/29/22 10/29/22 Range/Units 13:17 14:39 Sodium TNP 137 Potassium TNP 4.2 D Chloride 104 (98-107) mmol/L Carbon Dioxide 24 (21-32) mmol/L BUN 21 (6-23) mg/dl Creatinine 0.87 (0.6-1.4) mg/dl Glucose 160 H (70-99(Fasting)) mg/dl Calcium 9.3 (8.6-10.3) mg/dl Intake and Output 10/29/22 10/30/22 10/30/22 22:59 06:59 14:59 Intake Total 150 / 220 Balance 150 / 220 Intake: Oral 150 / 150 Other: # Unmeasured Voids 1 Weight 76.7 kg Weight Measurement Method Built in [facility] (1) Closed femur fracture Encounter type: subsequent encounter Femur location: distal, unspecified portion Fracture healing: with delayed healing Fracture morphology: unspecified fracture morphology Laterality: left Qualified Code(s): S72.402G - Unspecified fracture of lower end of left femur, subsequent encounter for closed fracture with delayed healing
[2022-10-30] MEDS ORDERED: LOSARTAN POTASSIUM 25 MG TAB PO ONE (09:45)
--- NOTE | 2022-10-30 12:24 | Urology Progress Note ---
Date of Service October 30, 2022 Assessment & Plan (1) Hematuria: Plan: Follow-up of hematuria and urinary retention. Patient remains afebrile, hemodynamically stable. No new labs today at time of exam. Renal US showed no stones or hydronephrosis, prostatomegaly with findings of chronic bladder outlet obstruction. Urinalysis on arrival was negative for blood, 0-4 RBC/hpf. Urine and blood cultures on 10/25 showed no growth. He was treated empirically with ceftriaxone, now discontinued. He developed hematuria during admission, felt to be due to trauma of patient pulling on catheter. His anticoagulation is currently on hold. He is voiding spontaneously since catheter removal - urine is clearing. Can continue to monitor without catheter for now. Continue to monitor with bladder scans. Forrest can be replaced if patient develops retention. Continue Tamsulosin and Finasteride. Can follow-up outpatient to complete hematuria work-up. will sign off. Admission and Anticipated Discharge Date Admission Date: October 25, 2022 Subjective Patient seen and examined at bedside this afternoon. He is awake and resting in bed. No acute complaints. Denies abdominal or bladder discomfort. No fever or chills. No nausea or vomiting. Voided into urinal about 125 mL of concentrated yellow urine. Per chart review, he was incontinent yesterday evening and then voided this am into toilet. Renal US 10/29 showed no renal calculi or hydronephrosis, prostatomegaly with findings suggestive of chronic bladder outlet obstruction. Review of Systems Constitutional: as per Subjective / HPI Gastrointestinal: as per Subjective / HPI Genitourinary: + as per Subjective / HPI Physical Exam Constitutional: no acute distress Respiratory: normal respiratory effort; no respiratory distress and no labored breathing Gastrointestinal (Abdomen): Inspection/Auscultation: abdomen normal to inspection; abdomen not distended Percussion/Palpation: abdomen soft; abdomen nontender Neurologic: awake Psychiatric: Orientation: alert, oriented to person, oriented to place and cooperative Genitourinary: Urine concentrated yellow in urinal Results & Data Vital Signs (Past 12 Hours) Vital Signs Temp Pulse Pulse Resp BP BP Pulse Ox 10/30/22 12:20 36.4 C L 61 19 145/66 H 93 10/30/22 10:45 63 10/30/22 10:45 10/30/22 08:00 10/30/22 07:00 36.8 C 65 18 186/84 H 96 10/30/22 03:14 36.7 C 82 18 135/68 97 Pulse Ox O2 Del Method O2 Del Method 10/30/22 12:20 Room Air 10/30/22 10:45 10/30/22 10:45 Room Air 10/30/22 08:00 95 Room Air 10/30/22 07:00 Room Air 10/30/22 03:14 Room Air PG Care Time/CCT Total # of Minutes Spent Total Time Spent with Patient: Total time spent is greater than 50% in coordination of care (as documented) at patient's floor/unit and/or counseling patient: Coding Level of Care Code 03500 SUB INP/OBS CARE 07/18MIN Diagnoses Hematuria R31.9
[2022-10-30 15:39] LABS: BUN Creatinine Ratio 21.1 (10-20); Calcium 9.3 mg/dl (8.6-10.3); Creatinine Clr Calc Pharmacy 72.1 ml/min; Est GFR (African American) 95.8 ml/min; Est GFR (Non-African American) 82.7 ml/min; Potassium 4.1 mmol/L (3.5-5.1)
[2022-10-30 15:40] LABS: BUN Creatinine Ratio 20.2 (10-20); Calcium 8.9 mg/dl (8.6-10.3); Est GFR (African American) 90.9 ml/min; Est GFR (Non-African American) 78.4 ml/min; Magnesium 2.2 mg/dl (1.7-2.4)
[2022-10-30 15:46] LABS: Hemoglobin 10.5 g/dl (14.0-18.0)
--- NOTE | 2022-10-30 16:34 | Electroencephalogram ---
EEG Procedure Note Date of Service October 30, 2022 Start / End Times Start Time: 11:43 End Time: 12:03 Referring Physician Hemalatha Villalta History AMS Home Medication List Medication Instructions Recorded Confirmed Type albuterol sulfate 2.5 mg/3 mL 2.5 mg inhalation Q4H PRN 09/26/21 10/25/22 History (0.083 %) solution for nebulization Shortness Of Breath Or Wheezing atorvastatin 80 mg tablet 80 mg PO DAILY 09/26/21 10/25/22 History cholecalciferol (vitamin D3) 25 25 mcg PO AMHS 09/26/21 10/25/22 History mcg (1,000 unit) tablet (Vitamin D3) clopidogrel 75 mg tablet 75 mg PO DAILY 09/26/21 10/25/22 History docusate sodium 100 mg tablet 100 mg PO BID 09/26/21 10/25/22 History duloxetine 30 mg capsule,delayed 30 mg PO DAILY 09/26/21 10/25/22 History release duloxetine 60 mg capsule,delayed 60 mg PO DAILY 09/26/21 10/25/22 History release finasteride 5 mg tablet 5 mg PO DAILY 09/26/21 10/25/22 History fluticasone propionate 50 2 spray intranasal DAILY PRN 09/26/21 10/25/22 History mcg/actuation nasal ALLERGIES spray,suspension levothyroxine 75 mcg tablet 75 mcg PO DAILY 09/26/21 10/25/22 History nitroglycerin 0.4 mg sublingual 0.4 mg sublingual DIRECTED PRN 09/26/21 10/25/22 History tablet (Nitrostat) Chest Pain pantoprazole 40 mg tablet,delayed 40 mg PO DAILY 09/26/21 10/25/22 History release polyvinyl alcohol 1.4 % eye drops 1 drp OPR QID PRN Pain 09/26/21 10/25/22 History (Artificial Tears (polyvinyl alcohol)) tamsulosin 0.4 mg capsule 0.4 mg PO DAILY 09/26/21 10/25/22 History umeclidinium 62.5 mcg-vilanterol 1 inh inhalation DAILY 09/26/21 10/25/22 History 25 mcg/actuation powdr for inhalation (Anoro Ellipta) acetaminophen 325 mg tablet 650 mg PO Q4 PRN Fever Or Pain 10/25/22 10/25/22 History (Tylenol) albuterol sulfate 90 mcg/actuation 2 puff inhalation Q4 PRN Shortness 10/25/22 10/25/22 History aerosol inhaler Of Breath Or Wheezing amitriptyline 50 mg tablet 50 mg PO HS 10/25/22 10/25/22 History carboxymethylcellulose sodium 1 % 1 drp OPR QID PRN .eye 10/25/22 10/25/22 History eye drops (Artificial Tears pain,irritation,dry eye,itching (carboxymethylcellulose)) enoxaparin 30 mg/0.3 mL 30 mg subcut Q12H 10/25/22 10/25/22 History subcutaneous syringe fluticasone 250 mcg-salmeterol 50 1 inh inhalation BID 10/25/22 10/25/22 History mcg/dose blistr powdr for inhalation (Advair Diskus) gabapentin 600 mg tablet 600 mg PO TID 10/25/22 10/25/22 History ipratropium 0.5 mg-albuterol 3 mg 3 ml inhalation Q6H PRN Shortness 10/25/22 10/25/22 History (2.5 mg base)/3 mL nebulization Of Breath Or Wheezing soln metoprolol tartrate 25 mg tablet 25 mg PO BID 10/25/22 10/25/22 History omeprazole 40 mg capsule,delayed 40 mg PO DAILY 10/25/22 10/25/22 History release ondansetron 4 mg disintegrating 4 mg translingual Q8H PRN Nausea 10/25/22 10/25/22 History tablet oxycodone 5 mg tablet 5 mg PO Q4H PRN Pain 10/25/22 10/25/22 History polyethylene glycol 3350 17 gram 17 g PO DAILY 10/25/22 10/25/22 History oral powder packet (Miralax) prednisone 20 mg tablet 40 mg PO .DAILY FOR 5 DAYS 10/25/22 10/25/22 History vit no.95-ferrous 1 tab PO DAILY 10/25/22 10/25/22 History fumarate 28 mg-folic acid 800 mcg tablet () sennosides 8.6 mg tablet (senna) 17.2 mg PO BID 10/25/22 10/25/22 History Inpatient Medication List Acetaminophen (Acetaminophen 325 Mg Tab) 650 mg PO Q4H PRN PRN Reason: Pain or Fever Stop: 11/24/22 14:10 Last Admin: 10/28/22 21:03 Dose: 650 mg Documented By: LIONEL Amitriptyline HCl (Amitriptyline Hcl 50 Mg Tab) 50 mg PO HS FELIX Stop: 11/24/22 20:59 Last Admin: 10/25/22 22:49 Dose: Not Given Documented By: DAVID Atorvastatin Calcium (Atorvastatin 40 Mg Tab) 80 mg PO DAILY FELIX Stop: 11/25/22 08:59 Last Admin: 10/30/22 09:16 Dose: 80 mg Documented By: Admin: 10/29/22 08:08 Dose: 80 mg Documented By: Admin: 10/28/22 08:01 Dose: 80 mg Documented By: Admin: 10/27/22 09:44 Dose: 80 mg Documented By: Admin: 10/26/22 09:33 Dose: Not Given Documented By: CONOR Baclofen (Baclofen 10 Mg Tab) 5 mg PO TID PRN PRN Reason: Spasms Stop: 11/25/22 13:59 Last Admin: 10/28/22 23:29 Dose: 5 mg Documented By: Admin: 10/27/22 22:40 Dose: 5 mg Documented By: DAVID Clopidogrel Bisulfate (Clopidogrel Bisulfate 75 Mg Tab) 75 mg PO DAILY FELIX Stop: 11/25/22 08:59 Last Admin: 10/28/22 08:01 Dose: 75 mg Documented By: Admin: 10/27/22 09:45 Dose: 75 mg Documented By: Admin: 10/26/22 09:33 Dose: Not Given Documented By: CONOR Docusate Sodium (Docusate Sodium 100 Mg Cap) 100 mg PO BID FELIX Stop: 11/24/22 20:59 Last Admin: 10/30/22 09:19 Dose: Not Given Documented By: Admin: 10/29/22 20:51 Dose: Not Given Documented By: Admin: 10/29/22 08:01 Dose: Not Given Documented By: Admin: 10/28/22 21:02 Dose: 100 mg Documented By: Admin: 10/28/22 08:12 Dose: 100 mg Documented By: Admin: 10/27/22 22:26 Dose: Not Given Documented By: Admin: 10/27/22 09:52 Dose: 100 mg Documented By: Admin: 10/26/22 20:27 Dose: 100 mg Documented By: Admin: 10/26/22 09:33 Dose: Not Given Documented By: Admin: 10/25/22 22:38 Dose: Not Given Documented By: DAVID Duloxetine HCl (Duloxetine Hcl 30 Mg Cap) 30 mg PO DAILY FELIX Stop: 11/25/22 08:59 Last Admin: 10/30/22 09:17 Dose: 30 mg Documented By: Admin: 10/29/22 07:57 Dose: 30 mg Documented By: Admin: 10/28/22 08:01 Dose: 30 mg Documented By: Admin: 10/27/22 09:44 Dose: 30 mg Documented By: Admin: 10/26/22 09:32 Dose: Not Given Documented By: CONOR Enoxaparin Sodium (Enoxaparin Inj 40 Mg/0.4 Ml Syr) 40 mg SQ QAM FELIX Stop: 11/26/22 08:59 Last Admin: 10/28/22 08:12 Dose: 40 mg Documented By: Admin: 10/27/22 09:45 Dose: 40 mg Documented By: JEFFY Finasteride (Finasteride 5 Mg Tab) 5 mg PO DAILY FELIX Stop: 11/25/22 08:59 Last Admin: 10/30/22 09:18 Dose: 5 mg Documented By: Admin: 10/29/22 07:59 Dose: 5 mg Documented By: Admin: 10/28/22 08:01 Dose: 5 mg Documented By: Admin: 10/27/22 09:44 Dose: 5 mg Documented By: Admin: 10/26/22 09:32 Dose: Not Given Documented By: CONOR Fluticasone/Vilanterol (Fluticasone/Vilanterol 200/25mcg 14 Puffs/Inhaler) 1 puffs INH DAILY FELIX Stop: 11/24/22 20:59 Last Admin: 10/30/22 09:19 Dose: 1 puffs Documented By: Admin: 10/29/22 08:01 Dose: 1 puffs Documented By: Admin: 10/28/22 08:02 Dose: 1 puffs Documented By: Admin: 10/27/22 10:26 Dose: 1 puffs Documented By: Admin: 10/26/22 10:19 Dose: Not Given Documented By: Admin: 10/25/22 22:39 Dose: Not Given Documented By: DAVID Gabapentin (Gabapentin 300 Mg Cap) 300 mg PO TID FELIX Stop: 11/26/22 13:59 Last Admin: 10/30/22 14:58 Dose: Not Given Documented By: Admin: 10/30/22 09:16 Dose: 300 mg Documented By: Admin: 10/29/22 20:48 Dose: 300 mg Documented By: Admin: 10/29/22 15:16 Dose: 300 mg Documented By: Admin: 10/29/22 07:56 Dose: 300 mg Documented By: Admin: 10/28/22 20:58 Dose: 300 mg Documented By: Admin: 10/28/22 12:44 Dose: Not Given Documented By: Admin: 10/28/22 07:59 Dose: 300 mg Documented By: Admin: 10/27/22 22:26 Dose: Not Given Documented By: Admin: 10/27/22 12:54 Dose: 300 mg Documented By: JEFFY Hydromorphone HCl (Hydromorphone Inj 0.5 Mg/0.5 Ml Syr) 0.5 mg IV Q6H PRN PRN Reason: Pain Stop: 11/09/22 09:43 Last Admin: 10/28/22 05:01 Dose: 0.5 mg Documented By: Admin: 10/27/22 22:48 Dose: 0.5 mg Documented By: Admin: 10/27/22 14:14 Dose: 0.5 mg Documented By: JEFFY Levothyroxine Sodium (Levothyroxine Sodium 75 Mcg Tablet) 75 mcg PO DAILYBB FELIX Stop: 11/25/22 06:29 Last Admin: 10/30/22 05:49 Dose: 75 mcg Documented By: Admin: 10/29/22 05:58 Dose: 75 mcg Documented By: Admin: 10/28/22 06:24 Dose: Not Given Documented By: Admin: 10/27/22 06:31 Dose: Not Given Documented By: Admin: 10/26/22 09:35 Dose: 75 mcg Documented By: CONOR Metoprolol Succinate (Metoprolol Succ 25mg Ext Rel Tab) 37.5 mg PO BID FELIX Stop: 11/28/22 20:59 Last Admin: 10/30/22 09:18 Dose: 37.5 mg Documented By: Admin: 10/29/22 20:48 Dose: 37.5 mg Documented By: CATRACHO Oxycodone HCl (Oxycodone Hcl Ir 5 Mg Tab (Immediate Release)) 5 mg PO Q4H PRN PRN Reason: Pain Stop: 11/08/22 15:14 Last Admin: 10/26/22 09:31 Dose: 5 mg Documented By: Admin: 10/26/22 03:12 Dose: 5 mg Documented By: Admin: 10/25/22 22:12 Dose: 5 mg Documented By: DAVID Pantoprazole Sodium (Pantoprazole 40 Mg Tab) 40 mg PO DAILY FELIX Stop: 11/25/22 08:59 Last Admin: 10/30/22 09:17 Dose: 40 mg Documented By: Admin: 10/29/22 08:05 Dose: 40 mg Documented By: Admin: 10/28/22 08:00 Dose: 40 mg Documented By: Admin: 10/27/22 09:44 Dose: 40 mg Documented By: Admin: 10/26/22 09:32 Dose: Not Given Documented By: CONOR Polyethylene Glycol (Polyethylene (Miralax) 17 Gm Pack) 17 gm PO DAILY FELIX Stop: 11/25/22 08:59 Last Admin: 10/30/22 09:19 Dose: Not Given Documented By: Admin: 10/29/22 08:02 Dose: Not Given Documented By: Admin: 10/28/22 08:12 Dose: 17 gm Documented By: Admin: 10/27/22 09:52 Dose: Not Given Documented By: Admin: 10/26/22 09:32 Dose: Not Given Documented By: CONOR Tamsulosin HCl (Tamsulosin Hcl 0.4 Mg Cap) 0.4 mg PO DAILY FELIX Stop: 11/25/22 08:59 Last Admin: 10/30/22 09:18 Dose: 0.4 mg Documented By: Admin: 10/29/22 08:02 Dose: 0.4 mg Documented By: Admin: 10/28/22 08:01 Dose: 0.4 mg Documented By: Admin: 10/27/22 09:44 Dose: 0.4 mg Documented By: Admin: 10/26/22 10:19 Dose: Not Given Documented By: CONOR Vitamin D (Cholecalciferol 1,000 Units 25 Mcg Tab) 1,000 units PO AMHS FELIX Stop: 11/24/22 20:59 Last Admin: 10/30/22 09:19 Dose: 1,000 units Documented By: Admin: 10/29/22 20:48 Dose: 1,000 units Documented By: Admin: 10/29/22 07:56 Dose: 1,000 units Documented By: Admin: 10/28/22 20:57 Dose: 1,000 units Documented By: Admin: 10/28/22 08:00 Dose: 1,000 units Documented By: Admin: 10/27/22 22:27 Dose: Not Given Documented By: Admin: 10/27/22 09:43 Dose: 1,000 units Documented By: Admin: 10/26/22 20:27 Dose: 1,000 units Documented By: Admin: 10/26/22 09:33 Dose: Not Given Documented By: Admin: 10/25/22 22:38 Dose: Not Given Documented By: DAVID Discontinued Medications Baclofen (Baclofen 10 Mg Tab) 10 mg PO ONE ONE Stop: 10/26/22 09:51 Last Admin: 10/26/22 10:17 Dose: 10 mg Documented By: CONOR Baclofen (Baclofen 10 Mg Tab) 10 mg PO TID PRN PRN Reason: Spasms Stop: 11/25/22 13:59 Last Admin: 10/27/22 09:42 Dose: 10 mg Documented By: Admin: 10/26/22 21:37 Dose: 10 mg Documented By: Admin: 10/26/22 15:09 Dose: 10 mg Documented By: CONOR Enoxaparin Sodium (Enoxaparin Inj 30 Mg/0.3 Ml Syr) 30 mg SQ Q12H FELIX Stop: 11/24/22 15:59 Last Admin: 10/26/22 15:10 Dose: 30 mg Documented By: Admin: 10/26/22 04:13 Dose: 30 mg Documented By: Admin: 10/25/22 16:32 Dose: 30 mg Documented By: MAHAMED Furosemide (Furosemide 40 Mg/4 Ml Vial) Confirm Administered Dose 40 mg IV .STK- MED ONE Stop: 10/29/22 11:15 Last Admin: 10/29/22 12:26 Dose: Not Given Documented By: STAN Gabapentin (Gabapentin 600 Mg Tab) 600 mg PO TID FELIX Stop: 11/24/22 20:59 Last Admin: 10/27/22 09:43 Dose: 600 mg Documented By: Admin: 10/26/22 20:46 Dose: 600 mg Documented By: Admin: 10/25/22 22:39 Dose: Not Given Documented By: DAVID Hydralazine HCl (Hydralazine Hcl 20 Mg/Ml Vial) 5 mg IV Q6H PRN PRN Reason: Hypertension SBP>180orDBP>100 Stop: 11/26/22 09:32 Last Admin: 10/28/22 03:34 Dose: 5 mg Documented By: Admin: 10/27/22 09:53 Dose: 5 mg Documented By: JEFFY Hydromorphone HCl (Hydromorphone Inj 0.5 Mg/0.5 Ml Syr) 0.5 mg IV Q6H PRN PRN Reason: Pain Stop: 11/09/22 07:47 Last Admin: 10/26/22 08:21 Dose: 0.5 mg Documented By: CONOR Hydromorphone HCl (Hydromorphone Inj 0.5 Mg/0.5 Ml Syr) 0.5 mg IV Q3HWA PRN PRN Reason: Pain Stop: 11/09/22 07:47 Last Admin: 10/26/22 23:45 Dose: 0.5 mg Documented By: Admin: 10/26/22 18:49 Dose: 0.5 mg Documented By: Admin: 10/26/22 11:48 Dose: 0.5 mg Documented By: CONOR Sodium Chloride (Nss) 500 mls @ 999 mls/hr IV .Q31M FELIX Stop: 10/25/22 09:45 Last Infusion: 10/25/22 09:42 Dose: 0 mls/hr Documented By: Admin: 10/25/22 09:11 Dose: 999 mls/hr Documented By: DRAKE Sodium Chloride (Nss 1000ml) 500 mls @ 999 mls/hr IV .Q31M ONE Stop: 10/25/22 12:09 Last Infusion: 10/25/22 12:35 Dose: 0 mls/hr Documented By: Admin: 10/25/22 11:41 Dose: 999 mls/hr Documented By: MAHAMED Sodium Chloride (Nss 1000ml) 500 mls @ 999 mls/hr IV .Q31M ONE Stop: 10/25/22 13:57 Last Infusion: 10/25/22 14:43 Dose: 0 mls/hr Documented By: Admin: 10/25/22 13:37 Dose: 999 mls/hr Documented By: MAHAMED Acetaminophen (Ofirmev) 1,000 mg in 100 mls @ 400 mls/hr IV Q8H PRN PRN Reason: pain Stop: 10/28/22 15:30 Last Infusion: 10/28/22 04:29 Dose: 0 mls/hr Documented By: Admin: 10/28/22 04:14 Dose: 100 mls/hr Documented By: Infusion: 10/27/22 14:16 Dose: 100 mls/hr Documented By: Infusion: 10/26/22 19:04 Dose: 0 mls/hr Documented By: Admin: 10/26/22 18:49 Dose: 400 mls/hr Documented By: Infusion: 10/26/22 04:06 Dose: 0 mls/hr Documented By: Admin: 10/26/22 03:51 Dose: 400 mls/hr Documented By: Infusion: 10/25/22 20:25 Dose: 0 mls/hr Documented By: Admin: 10/25/22 19:51 Dose: 400 mls/hr Documented By: MAHAMED Albumin Human (Albumin 25% 100 Ml) 25 gm in 100 mls @ 50 mls/hr IV ONE ONE Stop: 10/25/22 23:41 Last Infusion: 10/25/22 22:03 Dose: 0 mls/hr Documented By: Admin: 10/25/22 21:53 Dose: 50 mls/hr Documented By: MARY Dexamethasone 4 mg/ Syringe 1 mls @ 1 mls/min IV ONE ONE Stop: 10/25/22 21:47 Last Admin: 10/25/22 22:21 Dose: 1 mls/min Documented By: DAVID Amiodarone HCl/Dextrose (Nexterone / D5w) 360 mg in 200 mls @ 33.333 mls/hr IV ONE ONE Stop: 10/26/22 03:58 Last Infusion: 10/26/22 00:02 Dose: 0 mg/min, 0 mls/hr Documented By: DAVID Co-signed By: MARJORIE Admin: 10/25/22 21:58 Dose: 1 mg/min, 33.3 mls/hr Documented By: MARY Co-signed By: DAVID Amiodarone HCl/Dextrose (Nexterone / D5w) 150 mg in 100 mls @ 600 mls/hr IV NOW STA Stop: 10/25/22 21:57 Last Infusion: 10/25/22 22:07 Dose: 0 mls/hr Documented By: MARY Co-signed By: DAVID Admin: 10/25/22 21:56 Dose: 600 mls/hr Documented By: MARY Co-signed By: DAVID Acetaminophen (Ofirmev) 1,000 mg in 100 mls @ 400 mls/hr IV NOW STA Stop: 10/25/22 23:01 Last Infusion: 10/25/22 23:18 Dose: 0 mls/hr Documented By: Admin: 10/25/22 23:03 Dose: 400 mls/hr Documented By: DAVID Ceftriaxone Sodium 2,000 mg/ (Dextrose) 70 mls @ 100 mls/hr IV Q24H FELIX; Protocol Stop: 10/29/22 10:41 Last Infusion: 10/29/22 12:27 Dose: 0 mls/hr Documented By: Admin: 10/29/22 09:05 Dose: 100 mls/hr Documented By: Infusion: 10/28/22 11:46 Dose: 0 mls/hr Documented By: Admin: 10/28/22 11:06 Dose: 100 mls/hr Documented By: Infusion: 10/27/22 11:49 Dose: 0 mls/hr Documented By: Admin: 10/27/22 10:18 Dose: 100 mls/hr Documented By: JEFFY Potassium Chloride (K Renzo / Wtr) 10 meq in 100 mls @ 100 mls/hr IV Q1H FELIX; Protocol Stop: 10/29/22 06:14 Last Admin: 10/29/22 06:14 Dose: Not Given Documented By: Infusion: 10/29/22 06:13 Dose: 0 mls/hr Documented By: Admin: 10/29/22 05:59 Dose: 50 mls/hr Documented By: Infusion: 10/29/22 05:07 Dose: 60 mls/hr Documented By: Admin: 10/29/22 03:26 Dose: 60 mls/hr Documented By: Infusion: 10/29/22 03:24 Dose: 0 mls/hr Documented By: Admin: 10/29/22 02:21 Dose: 100 mls/hr Documented By: LIONEL Potassium Chloride (K Renzo / Wtr) 10 meq in 100 mls @ 100 mls/hr IV Q1H FELIX Stop: 10/29/22 05:44 Last Admin: 10/29/22 06:35 Dose: Not Given Documented By: Admin: 10/29/22 06:35 Dose: Not Given Documented By: Admin: 10/29/22 06:35 Dose: Not Given Documented By: LIONEL Losartan Potassium (Losartan Potassium 25 Mg Tab) 25 mg PO QAM FELIX Stop: 11/28/22 11:14 Last Admin: 10/30/22 09:15 Dose: 25 mg Documented By: Admin: 10/29/22 12:29 Dose: 25 mg Documented By: STAN Losartan Potassium (Losartan Potassium 25 Mg Tab) 25 mg PO ONE ONE Stop: 10/30/22 09:46 Last Admin: 10/30/22 11:00 Dose: 25 mg Documented By: CRUZITO Metoprolol Succinate (Metoprolol Succ 25mg Ext Rel Tab) 25 mg PO BID FELIX Stop: 11/27/22 20:59 Last Admin: 10/29/22 07:57 Dose: 25 mg Documented By: Admin: 10/28/22 20:59 Dose: 25 mg Documented By: LIONEL Metoprolol Tartrate (Metoprolol Tartrate 25 Mg Tab) 25 mg PO BID FELIX Stop: 11/24/22 20:59 Last Admin: 10/28/22 08:00 Dose: 25 mg Documented By: Admin: 10/27/22 22:39 Dose: 25 mg Documented By: Admin: 10/27/22 09:43 Dose: 25 mg Documented By: Admin: 10/26/22 20:27 Dose: 25 mg Documented By: Admin: 10/26/22 09:34 Dose: 25 mg Documented By: Admin: 10/25/22 22:39 Dose: Not Given Documented By: DAVID Metoprolol Tartrate (Metoprolol Tartrate 1 Mg/Ml Vial) 2.5 mg IV NOW STA Stop: 10/29/22 01:32 Last Admin: 10/29/22 02:03 Dose: Not Given Documented By: LIONEL Potassium Chloride (Potassium Chloride 20 Meq/15 Ml Udc) 40 meq PO ONE ONE Stop: 10/28/22 08:56 Last Admin: 10/28/22 11:02 Dose: 40 meq Documented By: NIKKI Potassium Chloride (Potassium Chloride Crtab 20 Meq Tabcr) 40 meq PO NOW STA Stop: 10/29/22 01:32 Last Admin: 10/29/22 02:03 Dose: Not Given Documented By: LIONEL Potassium Chloride (Potassium Chloride Pwd 20 Meq Pack) 40 meq PO NOW STA Stop: 10/29/22 06:12 Last Admin: 10/29/22 07:53 Dose: 40 meq Documented By: STAN Prednisone (Prednisone 20 Mg Tab) 40 mg PO DAILY FELIX Stop: 10/29/22 09:01 Last Admin: 10/27/22 09:44 Dose: 40 mg Documented By: Admin: 10/26/22 09:32 Dose: 40 mg Documented By: Admin: 10/25/22 19:40 Dose: Not Given Documented By: MAHAMED Prednisone (Prednisone 20 Mg Tab) 20 mg PO DAILY FELIX Stop: 10/30/22 09:01 Last Admin: 10/30/22 09:15 Dose: 20 mg Documented By: Admin: 10/29/22 08:04 Dose: 20 mg Documented By: Admin: 10/28/22 08:00 Dose: 20 mg Documented By: NIKKI Description This is a 21 electrode EEG with a single channel dedicated to limited EKG. The electrodes were placed in accordance with the International 10-20 system. Interpretation During restful wakefulness, there is 7 to 8 Hz posterior activity, which shows some alternation with eye opening. Background activity shows good organization with intermittent mild slowing without asymmetry. The patient was somewhat somnolent during the study. Photic stimulations induce posterior driving responses vaguely. Hyperventilation is not tried during the study. There is no sleep-related pattern. There are no electrographic seizures or epileptogenic discharges. Impression: This EEG, recorded in wakefulness and somnolent state, is slightly abnormal due to mild diffuse slowing, which can be seen in mild encephalopathy or somnolent state. There is no electrographic seizure or epileptogenic discharge.
--- NOTE | 2022-10-30 16:37 | Neurology Progress Note ---
Date of Service October 30, 2022 Assessment & Plan (1) Altered mental status: Plan: Impression: The patient became very encephalopathic after receiving narcotic analgesic initially in the emergency department. However, he was very confused and agitated. His mental status has been cleared and he is currently alert and oriented x3. Repeat head CT and EEG are unremarkable. Recommendations: Limit use of sedatives, anticholinergics, and narcotics. We will sign off. (2) Fall: Plan: Impression: The patient fell prior to arrival to the emergency department. There was no reported head trauma. The patient has been followed by orthopedics. (3) Closed femur fracture: (4) PSVT (paroxysmal supraventricular tachycardia): Plan: Impression: The patient has history of sick sinus syndrome, status post pacemaker placement. He has been followed by cardiology. Admission and Anticipated Discharge Date Admission Date: October 25, 2022 Subjective The patient's mental status has been improved. He has not had any delirium during last 2 days. EEG is unremarkable. Review of Systems Review of Systems: All systems reviewed & are unremarkable except as noted in Subjective Physical Exam Physical Exam: General Examination: Constitutional: Well developed person in no acute distress. HENT: Normal exam with inspection. CV: Hearth rhythm is regular. Neck: Supple, ? carotid bruits. Lungs: Non-labored and comfortable breathing. Abdomen: Soft, non-tender, non-distended. Skin: No rash or ecchymosis. Extremities: No edema or cyanosis. Left knee is in immobilizer. NEUROLOGICAL EXAMINATION: Mental Status: Alert and oriented place, person and time. Cranial Nerves: 212 are intact. Funduscopy: Unable to visualize Motor: 5 out of 5 strength in bilateral upper extremities, and at least 4+ out of 5 strength in bilateral lower extremities. Tone: Normal without spasticity or rigidity. Sensory: Essentially intact with decreased vibratory sensation in toes. Coordination: Normal with [id number] testing bilaterally. Speech: Fluent, comprehension is intact. Gait: Unable to assess. Musculoskeletal: Normal muscle bulk, no atrophy. DTRs: 2+ in upper extremities symmetrically. Plantar reflexes are bilaterally downgoing. Results & Data Vital Signs (Past 12 Hours) Vital Signs Temp Pulse Pulse Resp BP BP Pulse Ox 10/30/22 16:27 36.6 C 71 18 124/81 93 10/30/22 12:20 36.4 C L 61 19 145/66 H 93 10/30/22 10:45 63 10/30/22 10:45 10/30/22 08:00 10/30/22 07:00 36.8 C 65 18 186/84 H 96 Pulse Ox O2 Del Method O2 Del Method 10/30/22 16:27 Room Air 10/30/22 12:20 Room Air 10/30/22 10:45 10/30/22 10:45 Room Air 10/30/22 08:00 95 Room Air 10/30/22 07:00 Room Air Laboratory Results Laboratory Results - last 24 hr 10/30/22 10/30/22 10/30/22 14:48 14:48 14:48 Hgb 10.5 L Hct 32.0 L Sodium 135 L 133 L Potassium 4.0 4.1 Chloride 104 104 Carbon Dioxide 22 23 Anion Gap 9 6 BUN 19 19 Creatinine 0.94 0.90 Est Cr Clr Drug Dosing 69.0 72.1 Est GFR ( Amer) 90.9 95.8 Est GFR (Non-Af Amer) 78.4 82.7 BUN/Creatinine Ratio 20.2 H 21.1 H Glucose 171 H 176 H Calcium 8.9 9.3 Magnesium 2.2 Diagnostic Findings Cervical Spine CT 10/25/22 09:04 CT SCAN OF THE CERVICAL SPINE CLINICAL HISTORY: Trauma. Fall. COMPARISON STUDY: CT of the cervical spine dated 09/26/2021 and 09/04/2018. TECHNIQUE: CT scan of the cervical spine is performed from the skull base to the upper thoracic spine. Images are reviewed in the axial, sagittal, and coronal planes. IV contrast was not administered for this examination. A dose lowering technique was utilized adhering to the principles of ALARA. FINDINGS: Skeletal structures: The skeletal structures are osteopenic. There is no evidence of fracture or subluxation involving the cervical spine. Vertebral body height and alignment are maintained. There is straightening of the cervical lordosis. Anterior osteophytes are seen throughout. The odontoid process and lateral masses are intact. The atlantoaxial articulation is preserved noting productive degenerative change. The spinous processes appear intact. A 9 mm bone island is again seen in the body of C5. There is moderate to advanced multilevel cervical spondylosis. Uncovertebral and facet arthropathy contribute to neural foraminal narrowing at most levels. Intervertebral discs: There is moderate to severe disc space narrowing at C6-C7 with endplate sclerosis. Mild disc space narrowing is noted at the remaining cervical levels. Central canal: Posterior disc osteophyte complexes are seen at all cervical levels between C3-C4 and C6-C7. This likely contributes to multilevel acquired compromise of the central canal. Pacemaker leads are noted at the left thoracic inlet. Soft tissues: The prevertebral and paraspinous soft tissues are within normal limits. There is atherosclerotic calcification of the carotid bulbs. Calvarium: The visualized calvarium at the skull base appears intact. Brain parenchyma: Partially visualized brain parenchyma at the skull base is within normal limits. Sinuses and mastoids: The visualized paranasal sinuses are clear. The mastoid air cells are well pneumatized. Lung apices: There is apical scarring. Postsurgical change is noted at the left apex. IMPRESSION: 1. There is no evidence of fracture or subluxation involving the cervical spine. 2. Osteopenia and spondylotic changes as above. ACT 112: Negative or not required by law. Electronically signed by: Geoffrey Auguste M.D. 10/25/2022 9:54 AM Chest X-Ray 10/25/22 09:04 SINGLE VIEW CHEST CLINICAL HISTORY: Generalized weakness. FINDINGS: An AP, portable, upright chest radiograph is compared to study dated 1 08/09/2021 and correlated with chest CT dated 02/24/2020. A 2-lead cardiac pacemaker is unchanged in position. The heart is enlarged. There is pulmonary vascular congestion. Small pleural effusions are suspected. There is bibasilar scarring/atelectasis. No pneumothorax is seen. The skeletal structures are osteopenic. The bony thorax is grossly intact. An intrathecal lead projects over the lower thoracic spine. Cholecystectomy clips are noted in the right upper quadrant. IMPRESSION: 1. Cardiomegaly and cardiac pacemaker with pulmonary vascular congestion. 2. Small pleural effusions. ACT 112: Negative or not required by law. Electronically signed by: Geoffrey Auguste M.D. 10/25/2022 10:[address] 10/25/22 09:[address] WITHOUT CONTRAST CLINICAL HISTORY: fall, trauma COMPARISON STUDY: Facial bone CT April 14, 2020. TECHNIQUE: A maxillofacial CT was performed without IV contrast. Coronal and sagittal reformats were viewed. Automated exposure control was utilized for the study. A dose lowering technique was utilized adhering to the principles of ALARA. FINDINGS: No acute facial bone fracture is identified. Alignment of the temporomandibular joints is anatomic. There is no acute skull base fracture. Globes are intact. There is no retrobulbar hematoma. The head CT will be reported separately. Numerous teeth are absent. IMPRESSION: No acute facial fracture. ACT 112: Negative or not required by law. Electronically signed by: Boyd Chandler M.D. 10/25/2022 10:51 AM Femur X-Ray 10/25/22 09:04 SINGLE VIEW PELVIS; 2 VIEWS LEFT HIP; 2 VIEWS LEFT FEMUR CLINICAL HISTORY: Fall. Left leg injury. FINDINGS: An AP view of the pelvis, AP and crosstable lateral views of the left hip, with AP and crosstable lateral views of the left femur are obtained. Comparison is made to pelvic x-ray dated 06/23/2018. The skeletal structures are osteopenic. There is no radiographic evidence of acute fracture involving the hips or bony pelvis. Bilateral hip arthroplasties are in near-anatomic alignment. No periprosthetic lucency is seen. Sclerotic changes noted in the sacroiliac joints. There is chronic deformity of the left proximal femur with a buttress plate in place along the lateral cortex. An intramedullary nail is present in the distal femur and a left knee arthroplasty is in place. There is a comminuted fracture of the distal left femoral metadiaphysis with displaced fragments. The largest fragments are medially displaced by up to 8 mm. Overlying soft tissue edema is noted. Fracture is located around the intramedullary nail and may extend to the left knee arthroplasty. No acute fracture is seen involving the left proximal femur. There is mild atherosclerotic calcification of the femoral artery. Moderate fecal retention is noted in the rectosigmoid. IMPRESSION: 1. No acute fracture is seen involving the hips or bony pelvis. 2. Comminuted periprosthetic fracture of the distal left femoral metadiaphysis with displaced fragments as detailed above. 3. 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 Fracture may extend to the left knee arthroplasty. 4. The left proximal femur appears intact. Electronically signed by: Geoffrey Auguste M.D. 10/25/2022 10:[address] 10/25/22 09:04 CT SCAN OF THE BRAIN WITHOUT IV CONTRAST CLINICAL HISTORY: Fall. COMPARISON STUDY: CT of the brain dated 09/26/2021. TECHNIQUE: Unenhanced axial CT scan of the brain is performed from the vertex to the skull base. A dose lowering technique was utilized adhering to the principles of ALARA. FINDINGS: Brain parenchyma: There is age-related involutional change noting [id number] subcortical and periventricular microangiopathic disease. There is no hemorrhage, mass effect, or evidence of acute territorial ischemia by CT criteria. Jordan-white matter differentiation is preserved. No extra-axial fluid collection is seen. Ventricles, sulci, cisterns: Prominent secondary to involutional change. Intracranial vasculature: There is atherosclerotic calcification of the cavernous carotid and vertebral arteries. Calvarium: The skeletal structures are osteopenic. No depressed calvarial fracture is seen. Sinuses and mastoids: The visualized paranasal sinuses are clear. The mastoid air cells are well pneumatized. Orbits: The bony orbits are grossly intact. IMPRESSION: There is no hemorrhage, mass effect, or evidence of acute territorial ischemia by CT criteria. ACT 112: Negative or not required by law. Electronically signed by: Geoffrey Auguste M.D. 10/25/2022 9:49 AM Hip/Pelvis X-Ray 10/25/22 09:04 SINGLE VIEW PELVIS; 2 VIEWS LEFT HIP; 2 VIEWS LEFT FEMUR CLINICAL HISTORY: Fall. Left leg injury. FINDINGS: An AP view of the pelvis, AP and crosstable lateral views of the left hip, with AP and crosstable lateral views of the left femur are obtained. Comparison is made to pelvic x-ray dated 06/23/2018. The skeletal structures are osteopenic. There is no radiographic evidence of acute fracture involving the hips or bony pelvis. Bilateral hip arthroplasties are in near-anatomic alignment. No periprosthetic lucency is seen. Sclerotic changes noted in the sacroiliac joints. There is chronic deformity of the left proximal femur with a buttress plate in place along the lateral cortex. An intramedullary nail is present in the distal femur and a left knee arthroplasty is in place. There is a comminuted fracture of the distal left femoral metadiaphysis with displaced fragments. The largest fragments are medially displaced by up to 8 mm. Overlying soft tissue edema is noted. Fracture is located around the intramedullary nail and may extend to the left knee arthroplasty. No acute fracture is seen involving the left proximal femur. There is mild atherosclerotic calcification of the femoral artery. Moderate fecal retention is noted in the rectosigmoid. IMPRESSION: 1. No acute fracture is seen involving the hips or bony pelvis. 2. Comminuted periprosthetic fracture of the distal left femoral metadiaphysis with displaced fragments as detailed above. 3. 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 Fracture may extend to the left knee arthroplasty. 4. The left proximal femur appears intact. Electronically signed by: Goeffrey Auguste M.D. 10/25/2022 10:56 AM Knee X-Ray 10/25/22 09:04 XR knee LT 1 or 2V routine CLINICAL HISTORY: fall, swelling, trauma COMPARISON: Left knee radiographs October 29, 2018. FINDINGS: Left knee arthroplasty is noted. There is also an intramedullary kalee within the left femur. Note is made of an acute comminuted mildly displaced periprosthetic distal left femoral fracture. Fracture extends from the level the distal shaft of the left femur to the femoral component of the knee arthroplasty. Fracture is displaced 8 mm. There is no proximal left tibial or fibular fracture. IMPRESSION: Acute comminuted mildly displaced periprosthetic distal left femoral fracture, as described above. Fracture is adjacent to the distal aspect of the intramedullary kalee and extends to the femoral component of the left knee arthropathy. ACT 112: Negative or not required by law. Electronically signed by: Boyd Chandler M.D. 10/25/2022 11:03 AM KUB X-Ray 10/28/22 10:54 [facility]UB CLINICAL HISTORY: Abdominal pain. COMPARISON STUDY: KUB June 08, 2017. FINDINGS: This study was technically difficult to obtain. This study is mildly compromised by motion artifact. The lower pelvis was not included. The bowel gas pattern is within normal limits. Intracanalicular stimulator is present. IMPRESSION: No evidence for a bowel obstruction. Exam mildly compromised by artifact. ACT 112: Negative or not required by law. Electronically signed by: Boyd Chandler M.D. 10/28/2022 11:[address] 10/28/22 16:47 CT OF THE HEAD WITHOUT CONTRAST CLINICAL HISTORY: Altered mental status. Fall. Head injury. COMPARISON STUDY: Head CTs September 26, 2021 and October 25, 2022. TECHNIQUE: Helical axial images of the head were obtained without IV contrast. Automated exposure control was utilized for the study. A dose lowering technique was utilized adhering to the principles of ALARA. FINDINGS: This exam is mildly compromised by motion artifact. No acute intracranial hemorrhage, midline shift or mass effect is present. The ventricular system is stable. The basal cisterns are patent. No extra-axial collections are present. There are no findings to suggest acute dural sinus thrombosis or acute territorial infarct. No significant calvarial abnormalities are present. Visualized portions of the sinuses and mastoid air cells are clear. IMPRESSION: 1. Exam mildly compromised by motion artifact. No acute intracranial findings. 2. No calvarial fractures identified. ACT 112: Negative or not required by law. Electronically signed by: Boyd Chandler M.D. 10/28/2022 6:[address] 10/28/22 17:08 CT lumbar spine wo con CLINICAL HISTORY: Fall COMPARISON STUDY: Lumbar spine MRI November 10, 2008. CT of the abdomen and pelvis February 28, 2009. TECHNIQUE: Axial images of the lumbar spine were obtained without IV contrast. Sagittal and coronal reconstructions were viewed. Automated exposure control was utilized for the study. A dose lowering technique was utilized adhering to the principles of ALARA. FINDINGS: For purposes of numbering on this exam, the L5-S1 disc space is assigned to axial image 387 of [id number]. Intracanalicular electrodes enter the canal at the L1-L2 level. Leads terminate at the inferior T7 level, as shown on the thoracic spine CT which will be reported separately. Alignment of the lumbar spine is anatomic with the exception of mild leftward curvature of the mid to lower lumbar spine. There is no lumbar spine fracture. No osseous lesions are identified. There is moderate multilevel facet arthrosis. Mild multilevel endplate osteophytosis is present. Paravertebral soft tissues are unremarkable. Bilateral hip arthroplasties are incidentally noted on the operations vocational instructor tomogram. IMPRESSION: 1. No acute lumbar spine fracture or subluxation. 2. Moderate multilevel facet arthrosis and mild degenerative disc disease within the lumbar spine. ACT 112: Negative or not required by law. Electronically signed by: Boyd Chandler M.D. 10/28/2022 6:[address] 10/28/22 17:08 CT OF THE THORACIC SPINE CLINICAL HISTORY: Fall. COMPARISON STUDY: Thoracolumbar spine radiographs October 03, 2015. Chest CT February 24, 2020. TECHNIQUE: Helical axial images of the thoracic spine were obtained. Sagittal and coronal reconstructions were viewed. Automated exposure control was utilized for the study. A dose lowering technique was utilized adhering to the principles of ALARA. FINDINGS: No acute thoracic spine fracture is identified. No suspicious osseous lesions are identified. There is mild multilevel disc space narrowing and osteophytosis within the thoracic spine. Intracanalicular electrodes terminate at the inferior T7 level. Paravertebral soft tissues are unremarkable. No acute fractures are identified within visualized portions of the posterior ribs. Mildly enlarged mediastinal lymph nodes are unchanged since CT of February 24, 2020. No pneumothorax is identified within visualized portions of the chest. IMPRESSION: No acute thoracic spine fracture or subluxation. ACT 112: Negative or not required by law. Electronically signed by: Boyd Chandler M.D. 10/28/2022 6:35 PM Renal Ultrasound 10/29/22 11:32 RENAL ULTRASOUND HISTORY: Acute hematuria hematuria COMPARISON: CT chest 02/24/2020 FINDINGS: Right kidney: 9.5 x 5.4 x 5.7 cm. There are a few subcentimeter cysts measuring up to 8 mm. No hydronephrosis. Normal corticomedullary differentiation and cortical thickness. Left kidney: 9.4 x 6.4 x 5.1 cm. 9 mm hypoechoic probable cyst within the midpole. No hydronephrosis. Normal corticomedullary differentiation and cortical thickness. Bladder: Partial distention of the urinary bladder with mild wall thickening and prostamegaly. The bilateral ureteral jets were identified. IMPRESSION: 1. No renal calculi or hydronephrosis. 2. Prostatomegaly with findings suggestive of chronic bladder outlet obstruction. ACT 112: Negative or not required by law. Electronically signed by: Doug Pinon M.D. 10/29/2022 2:43 PM (2) Fall Encounter type: initial encounter Qualified Code(s): W19.XXXA - Unspecified fall, initial encounter (3) Closed femur fracture Encounter type: subsequent encounter Femur location: distal, unspecified portion Fracture healing: with delayed healing Fracture morphology: unspecified fracture morphology Laterality: left Qualified Code(s): S72.402G - Unspecified fracture of lower end of left femur, subsequent encounter for closed fracture with delayed healing
--- NOTE | 2022-10-30 17:34 | Hospitalist Progress Note ---
Date of Service October 30, 2022 Assessment & Plan (1) Altered mental status: (2) Fall: (3) Closed femur fracture: (4) Hypothyroidism: (5) Asthma, allergic: (6) Atherosclerotic heart disease of [place] coronary artery without angina pectoris: (7) Deep vein thrombosis of distal lower extremity: (8) Major depressive disorder: (9) BPH (benign prostatic hyperplasia): (10) COPD (chronic obstructive pulmonary disease): (11) Diastolic dysfunction: (12) SSS (sick sinus syndrome): (13) Pacemaker: (14) HTN (hypertension): (15) HLD (hyperlipidemia): (16) Depression: (17) RLS (restless legs syndrome): Plan Patient is a 77 yr male with H/O Sick sinus syndrome s/p pacemaker placement, diastolic CHF, BPH, Chronic pain syndrome, Dyslipidemia, CAD, MDD, Mendez's, GERD, HTN, COPD/asthma, RLS, Hx of DVT who presents after an unwitnessed fall from [facility]. Pt reportedly developed AMS after receiving 10mg of morphine en route to the hospital. Acute comminuted mildly displaced periprosthetic distal left femoral fracture H/O Left Hip surgery with IM nail recently Secondary to fall --Knee X ray:Acute comminuted mildly displaced periprosthetic distal left femoral fracture, as described above. Fracture is adjacent to the distal aspect of the intramedullary kalee and extends to the femoral component of the left knee arthropathy. --Hip/Pelvic X ray:No acute fracture is seen involving the hips or bony pelvis. Comminuted periprosthetic fracture of the distal left femoral metadiaphysis with displaced fragments as detailed above. 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 Fracture may extend to the left knee arthroplasty. The left proximal femur appears intact. --CT Head:There is no hemorrhage, mass effect, or evidence of acute territorial ischemia by CT criteria. -- Knee immobilizer for comfort Weightbearing as tolerated to the left lower extremity Continue pain control Appreciate orthopedics input Continue PT OT Minimize narcotic pain meds as able Rehab when accepted Needs follow-up with orthopedics upon discharge Acute metabolic encephalopathy Likely secondary to pain medications, delirium --CT head:There is no hemorrhage, mass effect, or evidence of acute territorial ischemia by CT criteria. --EEG:This EEG, recorded in wakefulness and somnolent state, is slightly abnormal due to mild diffuse slowing, which can be seen in mild encephalopathy or somnolent state. There is no electrographic seizure or epileptogenic discharge. Minimize Narcotics, anticholinergics as able Empirically received Rocephin for suspected UTI Urine culture negative Blood cultures negative to date Appreciate neurology input Mental status back to baseline Paroxysmal supraventricular tachycardia Pacemaker interrogation done: SVT, atrial fibrillation/atrial flutter. Appreciate cardiology input Amiodarone discontinued Poor candidate for anticoagulation Metoprolol dose increased to 37.5 mg twice a day Replace and monitor electrolytes Hematuria: Urinary retention Secondary to Traumatic Cath Renal USD:No renal calculi or hydronephrosis. Prostatomegaly with findings suggestive of chronic bladder outlet obstruction. Bladder scan as needed Appreciate urology input Continue tamsulosin and finasteride Anticoagulation on hold due to hematuria Hematuria resolved Chronic conditions: CAD, CHF, HLD, HLD continue Plavix, metoprolol, statin Losartan added for blood pressure control BPH On Flomax Chronic pain syndrome Decreased Cymbalta dose Resumed gabapentin at lower dose Hypothyroidism continue levothyroxine COPD/asthma continue home inhalers Also on prednisone MDD RLS Continue home meds DVT Px: Lovenox SQ--Held Re: Hematuria Code Status: Full Code Admission and Anticipated Discharge Date Admission Date: October 25, 2022 Subjective Patient is seen and examined at bedside Mental status seem to be back to baseline as per family Patient refused labs, IV access this morning but later agreed Denies any significant left leg pain No new complaints Discussed with family at bedside Denies any chest pain, dyspnea, dizziness, nausea, vomiting Review of Systems Review of Systems: All systems reviewed & are unremarkable except as noted in Subjective Physical Exam Physical Exam: Physical Exam: Vitals signs as noted above General Appearance:Moderately built and nourished, no apparent distress Head: normocephalic, Atraumatic Eyes: normal inspection, EOMI Neck: supple, Trachea midline Respiratory/Chest: Normal breath sounds, CTA, No accessory muscle use Cardiovascular: S1, S2, No murmur Abdomen/GI:Soft, Non tender, Bowel sounds present Extremities/Musculoskeletal:normal inspection, no edema, Left LE in immobilizer Neurologic/Psych:AAOX3, grossly no focal deficits Skin: normal color, warm Results & Data Results & Data Vital Signs (Past 12 Hours) Vital Signs Temp Pulse Pulse Resp BP BP Pulse Ox 10/30/22 16:27 36.6 C 71 18 124/81 93 10/30/22 12:20 36.4 C L 61 19 145/66 H 93 10/30/22 10:45 63 10/30/22 10:45 10/30/22 08:00 10/30/22 07:00 36.8 C 65 18 186/84 H 96 Pulse Ox O2 Del Method O2 Del Method 10/30/22 16:27 Room Air 10/30/22 12:20 Room Air 10/30/22 10:45 10/30/22 10:45 Room Air 10/30/22 08:00 95 Room Air 10/30/22 07:00 Room Air Laboratory Results Short CBC 10/30/22 Range/Units 14:48 Hgb 10.5 L (14.0-18.0) g/dl Hct 32.0 L (42.0-52.0) % BMP 10/30/22 10/30/22 14:48 14:48 Sodium 135 L 133 L Potassium 4.0 4.1 Chloride 104 104 Carbon Dioxide 22 23 BUN 19 19 Creatinine 0.94 0.90 Glucose 171 H 176 H Calcium 8.9 9.3 (2) Fall Encounter type: initial encounter Qualified Code(s): W19.XXXA - Unspecified fall, initial encounter (3) Closed femur fracture Encounter type: subsequent encounter Femur location: distal, unspecified portion Fracture healing: with delayed healing Fracture morphology: unspecified fracture morphology Laterality: left Qualified Code(s): S72.402G - Unspecified fracture of lower end of left femur, subsequent encounter for closed fracture with delayed healing
[2022-10-31] MEDS: LEVOTHYROXINE SODIUM 75 MCG TABLET PO SCH (05:32)
[2022-10-31] MEDS: GABAPENTIN 300 MG CAP PO SCH ×3 (08:24→20:33)
[2022-10-31] MEDS: DULoxetine HCL 30 MG CAP PO SCH (08:24)
[2022-10-31] MEDS: FLUTICASONE/VILANTEROL 200/25MCG 14 PUFFS/INHALER INH SCH (08:24)
[2022-10-31] MEDS: FINASTERIDE 5 MG TAB PO SCH (08:24)
[2022-10-31] MEDS: ATORVASTATIN 40 MG TAB PO SCH (08:24)
[2022-10-31] MEDS: METOPROLOL SUCC 25MG EXT REL TAB PO SCH ×2 (08:25→20:32)
[2022-10-31] MEDS: TAMSULOSIN HCL 0.4 MG CAP PO SCH (08:25)
[2022-10-31] MEDS: LOSARTAN POTASSIUM 50 MG TAB PO SCH (08:25)
[2022-10-31] MEDS: CHOLECALCIFEROL 1,000 UNITS 25 MCG TAB PO SCH ×2 (08:26→20:32)
[2022-10-31] MEDS: PANTOprazole 40 MG TAB PO SCH (08:26)
[2022-10-31] MEDS: POLYETHYLENE (MIRALAX) 17 GM PACK PO SCH (08:27)
[2022-10-31] MEDS: DOCUSATE SODIUM 100 MG CAP PO SCH ×2 (08:27→20:33)
--- NOTE | 2022-10-31 10:35 | Hospitalist Progress Note ---
Date of Service October 31, 2022 Assessment & Plan (1) Altered mental status: (2) Fall: (3) Closed femur fracture: (4) Hypothyroidism: (5) Asthma, allergic: (6) Atherosclerotic heart disease of [place] coronary artery without angina pectoris: (7) Deep vein thrombosis of distal lower extremity: (8) Major depressive disorder: (9) BPH (benign prostatic hyperplasia): (10) COPD (chronic obstructive pulmonary disease): (11) Diastolic dysfunction: (12) SSS (sick sinus syndrome): (13) Pacemaker: (14) HTN (hypertension): (15) HLD (hyperlipidemia): (16) Depression: (17) RLS (restless legs syndrome): Plan Patient is a 77 yr male with H/O Sick sinus syndrome s/p pacemaker placement, diastolic CHF, BPH, Chronic pain syndrome, Dyslipidemia, CAD, MDD, Mendez's, GERD, HTN, COPD/asthma, RLS, Hx of DVT who presents after an unwitnessed fall from [facility]. Pt reportedly developed AMS after receiving 10mg of morphine en route to the hospital. Acute comminuted mildly displaced periprosthetic distal left femoral fracture H/O Left Hip surgery with IM nail recently Secondary to fall --Knee X ray:Acute comminuted mildly displaced periprosthetic distal left femoral fracture, as described above. Fracture is adjacent to the distal aspect of the intramedullary kalee and extends to the femoral component of the left knee arthropathy. --Hip/Pelvic X ray:No acute fracture is seen involving the hips or bony pelvis. Comminuted periprosthetic fracture of the distal left femoral metadiaphysis with displaced fragments as detailed above. 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 Fracture may extend to the left knee arthroplasty. The left proximal femur appears intact. --CT Head:There is no hemorrhage, mass effect, or evidence of acute territorial ischemia by CT criteria. -- Knee immobilizer for comfort Weightbearing as tolerated to the left lower extremity Appreciate orthopedics input Continue PT OT Minimize narcotic pain meds as able Needs follow-up with orthopedics upon discharge Pain is controlled Waiting for rehab placement Acute metabolic encephalopathy Likely secondary to pain medications, delirium --CT head:There is no hemorrhage, mass effect, or evidence of acute territorial ischemia by CT criteria. --EEG:This EEG, recorded in wakefulness and somnolent state, is slightly abnormal due to mild diffuse slowing, which can be seen in mild encephalopathy or somnolent state. There is no electrographic seizure or epileptogenic discharge. Minimize Narcotics, sedative meds, anticholinergics as able Empirically received Rocephin for suspected UTI Urine culture negative Blood cultures negative to date Appreciate neurology input Amitriptyline discontinued Gabapentin dose decreased to 300 mg 3 times daily Duloxetine decreased to 30 mg daily Mental status back to baseline Paroxysmal supraventricular tachycardia Pacemaker interrogation done: SVT, atrial fibrillation/atrial flutter. Appreciate cardiology input Amiodarone discontinued Poor candidate for anticoagulation Metoprolol dose increased to 37.5 mg twice a day Replace and monitor electrolytes No recurrence of arrhythmias overnight Hematuria: Urinary retention Secondary to Traumatic Cath Renal USD:No renal calculi or hydronephrosis. Prostatomegaly with findings suggestive of chronic bladder outlet obstruction. Bladder scan as needed Appreciate urology input Continue tamsulosin and finasteride Anticoagulation on hold due to hematuria Hematuria resolved Advised to follow-up with urology as outpatient Chronic conditions: CAD, CHF, HLD, HLD continue Plavix, metoprolol, statin Losartan added for blood pressure control BPH On Flomax Chronic pain syndrome Decreased Cymbalta dose Resumed gabapentin at lower dose Hypothyroidism continue levothyroxine COPD/asthma continue home inhalers Also on prednisone MDD RLS Continue home meds DVT Px: Lovenox SQ--Held Re: Hematuria Code Status: Full Code Disposition SNF when accepted Admission and Anticipated Discharge Date Admission Date: October 25, 2022 Subjective Patient is seen and examined at bedside Alert awake and oriented during my encounter Denies any recurrence of hematuria States having left hip pain with movement Otherwise feels well Denies any chest pain, dyspnea, dizziness, nausea, vomiting Plan to discharge to rehab facility when accepted Review of Systems Review of Systems: All systems reviewed & are unremarkable except as noted in Subjective Physical Exam Physical Exam: Physical Exam: Vitals signs as noted above General Appearance:Moderately built and nourished, no apparent distress Head: normocephalic, Atraumatic Eyes: normal inspection, EOMI Neck: supple, Trachea midline Respiratory/Chest: Normal breath sounds, CTA, No accessory muscle use Cardiovascular: S1, S2, No murmur Abdomen/GI:Soft, Non tender, Bowel sounds present Extremities/Musculoskeletal:normal inspection, no edema, Left LE in immobilizer Neurologic/Psych:AAOX3, grossly no focal deficits Skin: normal color, warm Results & Data Results & Data Vital Signs (Past 12 Hours) Vital Signs Temp Pulse Pulse Resp BP Pulse Ox O2 Del Method 10/31/22 08:00 36.8 C 66 18 142/68 H 97 Room Air 10/31/22 03:31 36.6 C 61 16 132/69 97 Room Air 10/31/22 00:35 62 10/30/22 23:10 36.3 C L 61 18 154/77 H 93 Room Air Laboratory Results Short CBC 10/30/22 Range/Units 14:48 Hgb 10.5 L (14.0-18.0) g/dl Hct 32.0 L (42.0-52.0) % BMP 10/30/22 10/30/22 14:48 14:48 Sodium 135 L 133 L Potassium 4.0 4.1 Chloride 104 104 Carbon Dioxide 22 23 BUN 19 19 Creatinine 0.94 0.90 Glucose 171 H 176 H Calcium 8.9 9.3 (2) Fall Encounter type: initial encounter Qualified Code(s): W19.XXXA - Unspecified fall, initial encounter (3) Closed femur fracture Encounter type: subsequent encounter Femur location: distal, unspecified portion Fracture healing: with delayed healing Fracture morphology: unspecified fracture morphology Laterality: left Qualified Code(s): S72.402G - Unspecified fracture of lower end of left femur, subsequent encounter for closed fracture with delayed healing
[2022-10-31] MEDS: CLOPIDOGREL BISULFATE 75 MG TAB PO SCH (10:39)
--- NOTE | 2022-10-31 11:06 | Discharge Summary ---
Date of Service October 31, 2022 Admission HPI Per Admitting Provider Pt is a 77yo gentleman with PMHx of sick sinus syndrome s/p pacemaker placement, diastolic CHF, BPH, Chronic pain syndrome, Dyslipidemia, CAD, MDD, Mendez's, GERD, HTN, COPD/asthma, RLS, Hx of DVT who presents after an unwitnessed fall from [facility]. Pt reportedly developed AMS after receiving 10mg of morphine en route to the hospital. Per brother Gywn who was contacted via telephone, pt tried to get out of bed on his own at [facility] and fell. He was recently admitted to [facility] and underwent ORIF of the left distal femur on 10/04/2022. Per [facility] chart review he also 2 units of PRBCs for acute blood loss anemia and had an episode of SVT that required adenosine post-op. Also had an aspiration pneumonia event and Klebsiella UTI. Today, pt was given 10mg of morphine en route to the emergency department. He is currently lethargic and confused and brother states that at baseline he is usually alert. Pt has a Hx of bilateral hip replacements and left knee replacement. ED workup with multiple xrays of the left knee, hips and pelvis, femur all showed no acute fracture but confirmed the presence of a nonhealed periprosthetic distal left femur fracture. Head CT with no acute brain bleed. Admission Exam Per Admitting Provider Physical Exam Physical Exam: General: Pt laying in bed moaning occasionally, unarousable Skin: No noted rashes or bruises Neuro:Moaning HEENT:head appears atraumatic Chest: Nontender to palpation. Opens eyes with sternal rub CV: RRR Resp: no increased effort of breathing Abdomen: Pt restless whenever palpation of the abdomen is attempted Extremities: No edema in lower extremities bilaterally. Principal Diagnosis Acute comminuted mildly displaced periprosthetic distal left femoral fracture Mechanical fall Acute metabolic encephalopathy Polypharmacy Paroxysmal supraventricular tachycardia Discharge Data Allergies Allergy/AdvReac Type Severity Reaction Status Date / Time adhesive Allergy Unknown GOODE SKIN Verified 10/25/22 12:52 No Known Drug Allergies Allergy Unknown . Verified 09/26/21 22:54 latex Allergy Unknown Verified 10/25/22 12:52 Consultations 10/25/22 13:57 ED Decision to Admit Stat 10/25/22 22:48 Consult Cardiology Routine 10/26/22 07:55 Consult Orthopedic Surgery Routine 10/28/22 09:44 Consult Neurology Routine 10/29/22 06:21 Consult Urology Routine Procedures Performed Laboratory Results WBC 6.20 K/ul (4.8-10.8) 10/29/22 01:42 RBC 3.34 M/uL (4.70-6.10) L 10/29/22 01:42 Hgb 10.5 g/dl (14.0-18.0) L 10/30/22 14:48 Hct 32.0 % (42.0-52.0) L 10/30/22 14:48 MCV 96.4 fL (80.0-100.0) 10/29/22 01:42 MCH 32.6 pg (25.0-34.0) 10/29/22 01:42 MCHC 33.9 g/dL (32.0-36.0) 10/29/22 01:42 RDW Std Deviation 53.8 fL (36.4-46.3) H 10/29/22 01:42 RDW Coeff of Jarrett 15.4 % (11.5-14.5) H 10/29/22 01:42 Plt Count 446 K/uL (130-400) H 10/29/22 01:42 MPV 10.0 fL (9.4-12.4) 10/29/22 01:42 Immature Gran % (Auto) 0.2 % 10/29/22 01:42 Neut % (Auto) 56.8 % 10/29/22 01:42 Lymph % (Auto) 28.2 % 10/29/22 01:42 [place] % (Auto) 13.4 % 10/29/22 01:42 Eos % (Auto) 0.8 % 10/29/22 01:42 Baso % (Auto) 0.6 % 10/29/22 01:42 Neut # (Auto) 3.52 K/uL (1.40-6.50) 10/29/22 01:42 Lymph # (Auto) 1.75 K/uL (1.2-3.4) 10/29/22 01:42 [place] # (Auto) 0.83 K/uL (0.11-0.59) H 10/29/22 01:42 Eos # (Auto) 0.05 K/uL (0-0.50) 10/29/22 01:42 Baso # (Auto) 0.04 K/uL (0-0.2) 10/29/22 01:42 Immature Gran # (Auto) 0.01 K/uL (0.01-0.20) 10/29/22 01:42 Absolute Nucleated RBC Cancelled 10/25/22 09:57 Nucleated RBC % (auto) Cancelled 10/25/22 09:57 Neutrophils % (Manual) Cancelled 10/25/22 09:57 Band Neutrophils % Cancelled 10/25/22 09:57 Lymphocytes % (Manual) Cancelled 10/25/22 09:57 Prolymphocyte % Cancelled 10/25/22 09:57 Reactive Lymphs % (Man) Cancelled 10/25/22 09:57 Monocytes % (Manual) Cancelled 10/25/22 09:57 Eosinophils % (Manual) Cancelled 10/25/22 09:57 Basophils % (Manual) Cancelled 10/25/22 09:57 Metamyelocytes % (Man) Cancelled 10/25/22 09:57 Myelocytes % (Man) Cancelled 10/25/22 09:57 Promyelocytes % (Man) Cancelled 10/25/22 09:57 Blast Cells % (Manual) Cancelled 10/25/22 09:57 Plasma Cell % (Manual) Cancelled 10/25/22 09:57 Other Cells % Cancelled 10/25/22 09:57 Nucleated RBC % Cancelled 10/25/22 09:57 Neutrophils # (Manual) Cancelled 10/25/22 09:57 Band Neutrophils # Cancelled 10/25/22 09:57 Total Absolute Neuts Cancelled 10/25/22 09:57 Lymphocytes # (Manual) Cancelled 10/25/22 09:57 Prolymphocyte # Cancelled 10/25/22 09:57 Reactive Lymphs # Cancelled 10/25/22 09:57 Total Abs Lymphocytes Cancelled 10/25/22 09:57 Monocytes # (Manual) Cancelled 10/25/22 09:57 Eosinophils # (Manual) Cancelled 10/25/22 09:57 Basophils # (Manual) Cancelled 10/25/22 09:57 Metamyelocytes # (Man) Cancelled 10/25/22 09:57 Myelocytes # (Manual) Cancelled 10/25/22 09:57 Promyelocytes # (Man) Cancelled 10/25/22 09:57 Blast Cells # (Man) Cancelled 10/25/22 09:57 Plasma Cell # (Manual) Cancelled 10/25/22 09:57 Other Cells # Cancelled 10/25/22 09:57 Nucleated RBCs # (Man) Cancelled 10/25/22 09:57 Hypersegmented Neuts Cancelled 10/25/22 09:57 Hyposegmented Neuts Cancelled 10/25/22 09:57 Hypogranular Neuts Cancelled 10/25/22 09:57 Large Granular Lymphs Cancelled 10/25/22 09:57 # Lrg Granular Lymphs Cancelled 10/25/22 09:57 Hairy Cells Cancelled 10/25/22 09:57 Smudge Cells Cancelled 10/25/22 09:57 Toxic Granulation Cancelled 10/25/22 09:57 Toxic Vacuolation Cancelled 10/25/22 09:57 Dohle Bodies Cancelled 10/25/22 09:57 Leila Rods Cancelled 10/25/22 09:57 Platelet Estimate Cancelled 10/25/22 09:57 Hypogranular Platelets Cancelled 10/25/22 09:57 Giant Platelets Cancelled 10/25/22 09:57 Platelet Satelliting Cancelled 10/25/22 09:57 RBC Morphology Cancelled 10/25/22 09:57 Polychromasia Cancelled 10/25/22 09:57 Hypochromasia Cancelled 10/25/22 09:57 Poikilocytosis Cancelled 10/25/22 09:57 Basophilic Stippling Cancelled 10/25/22 09:57 Anisocytosis Cancelled 10/25/22 09:57 Microcytosis Cancelled 10/25/22 09:57 Macrocytosis Cancelled 10/25/22 09:57 Spherocytes Cancelled 10/25/22 09:57 Pappenheimer Bodies Cancelled 10/25/22 09:57 Sickle Cells Cancelled 10/25/22 09:57 Target Cells Cancelled 10/25/22 09:57 Tear Drop Cells Cancelled 10/25/22 09:57 Ovalocytes Cancelled 10/25/22 09:57 Stomatocytes Cancelled 10/25/22 09:57 [place] Bodies Cancelled 10/25/22 09:57 Echinocytes 2+ 10/26/22 05:43 Acanthocytes (Spur) Cancelled 10/25/22 09:57 Rouleaux Cancelled 10/25/22 09:57 RBC Agglutinates Cancelled 10/25/22 09:57 Schistocytes Cancelled 10/25/22 09:57 Sezary Cell Cancelled 10/25/22 09:57 PT 11.2 Seconds (9.0-12.0) 10/25/22 10:57 INR 1.0 (0.9-1.1) 10/25/22 10:57 APTT 23.4 Seconds (21.0-31.0) 10/29/22 01:42 PTT Ratio 0.8 10/29/22 01:42 Sodium 133 mmol/L (136-145) L 10/30/22 14:48 Sodium 135 mmol/L (136-145) L 10/30/22 14:48 Potassium 4.0 mmol/L (3.5-5.1) 10/30/22 14:48 Potassium 4.1 mmol/L (3.5-5.1) 10/30/22 14:48 Chloride 104 mmol/L (98-107) 10/30/22 14:48 Chloride 104 mmol/L (98-107) 10/30/22 14:48 Carbon Dioxide 22 mmol/L (21-32) 10/30/22 14:48 Carbon Dioxide 23 mmol/L (21-32) 10/30/22 14:48 Anion Gap 6 (3-11) 10/30/22 14:48 Anion Gap 9 (3-11) 10/30/22 14:48 BUN 19 mg/dl (6-23) 10/30/22 14:48 BUN 19 mg/dl (6-23) 10/30/22 14:48 Creatinine 0.90 mg/dl (0.6-1.4) 10/30/22 14:48 Creatinine 0.94 mg/dl (0.6-1.4) 10/30/22 14:48 Est Cr Clr Drug Dosing 69.0 ml/min 10/30/22 14:48 Est Cr Clr Drug Dosing 72.1 ml/min 10/30/22 14:48 Est GFR ( Amer) 90.9 ml/min 10/30/22 14:48 Est GFR ( Amer) 95.8 ml/min 10/30/22 14:48 Est GFR (Non-Af Amer) 78.4 ml/min 10/30/22 14:48 Est GFR (Non-Af Amer) 82.7 ml/min 10/30/22 14:48 BUN/Creatinine Ratio 20.2 (10-20) H 10/30/22 14:48 BUN/Creatinine Ratio 21.1 (10-20) H 10/30/22 14:48 Glucose 171 mg/dl (70-99(Fasting)) H 10/30/22 14:48 Glucose 176 mg/dl (70-99(Fasting)) H 10/30/22 14:48 POC Glucose 109 mg/dl (70-99) H 10/25/22 18:27 Lactate 1.3 mmol/L (0.4-2.0) 10/25/22 22:53 Calcium 8.9 mg/dl (8.6-10.3) 10/30/22 14:48 Calcium 9.3 mg/dl (8.6-10.3) 10/30/22 14:48 Magnesium 2.2 mg/dl (1.7-2.4) 10/30/22 14:48 Total Bilirubin 0.9 mg/dl (0.2-1.0) 10/25/22 10:57 AST 22 U/L (13-39) 10/25/22 10:57 ALT 19 U/L (7-52) 10/25/22 10:57 Alkaline Phosphatase 132 U/L (34-104) H 10/25/22 10:57 Troponin I High Sens 15.2 pg/ml (0-20) 10/25/22 10:57 Total Protein 7.2 gm/dl (6.0-8.3) 10/25/22 10:57 Albumin 3.9 gm/dl (3.4-5.0) 10/25/22 10:57 Globulin 3.3 gm/dl (2.5-4.0) 10/25/22 10:57 Albumin/Globulin Ratio 1.2 (0.9-2) 10/25/22 10:57 Procalcitonin 0.18 ng/ml (0-0.5) 10/25/22 22:53 TSH 2.144 uIu/ml (0.300-4.500) 10/27/22 04:41 Free T4 0.88 ng/dl (0.61-1.60) 10/25/22 10:57 Urine Color Yellow 10/25/22 Unknown Urine Appearance Clear (Clear) 10/25/22 Unknown Urine pH 6.0 (4.5-7.5) 10/25/22 Unknown Ur Specific [place] 1.010 (1.000-1.030) 10/25/22 Unknown Urine Protein Negative (Negative) 10/25/22 Unknown Urine Glucose (UA) Negative (Negative) 10/25/22 Unknown Urine Ketones Negative (Negative) 10/25/22 Unknown Urine Blood Negative (Negative) 10/25/22 Unknown Urine Nitrite Negative (Negative) 10/25/22 Unknown Urine Bilirubin Negative (Negative) 10/25/22 Unknown Urine Urobilinogen Negative (Negative) 10/25/22 Unknown Ur Leukocyte Esterase Trace (Negative) H 10/25/22 Unknown Urine WBC (Auto) 5-10 /hpf (0-5) H 10/25/22 Unknown Urine RBC (Auto) 0-4 /hpf (0-4) 10/25/22 Unknown U Hyaline Cast (Auto) 1-5 /lpf (0-5) 10/25/22 Unknown U Epithel Cells (Auto) >30 /lpf (0-5) H 10/25/22 Unknown Urine Bacteria (Auto) Negative (Negative) 10/25/22 Unknown SARS-CoV-2, RNA, NAAT NEGATIVE (NEGATIVE) 10/25/22 Unknown Blood Parasites ID Cancelled 10/25/22 09:[address] 10/25/22 09:04 CT SCAN OF THE CERVICAL SPINE CLINICAL HISTORY: Trauma. Fall. COMPARISON STUDY: CT of the cervical spine dated 09/26/2021 and 09/04/2018. TECHNIQUE: CT scan of the cervical spine is performed from the skull base to the upper thoracic spine. Images are reviewed in the axial, sagittal, and coronal planes. IV contrast was not administered for this examination. A dose lowering technique was utilized adhering to the principles of ALARA. FINDINGS: Skeletal structures: The skeletal structures are osteopenic. There is no evidence of fracture or subluxation involving the cervical spine. Vertebral body height and alignment are maintained. There is straightening of the cervical lordosis. Anterior osteophytes are seen throughout. The odontoid process and lateral masses are intact. The atlantoaxial articulation is preserved noting productive degenerative change. The spinous processes appear intact. A 9 mm bone island is again seen in the body of C5. There is moderate to advanced multilevel cervical spondylosis. Uncovertebral and facet arthropathy contribute to neural foraminal narrowing at most levels. Intervertebral discs: There is moderate to severe disc space narrowing at C6-C7 with endplate sclerosis. Mild disc space narrowing is noted at the remaining cervical levels. Central canal: Posterior disc osteophyte complexes are seen at all cervical levels between C3-C4 and C6-C7. This likely contributes to multilevel acquired compromise of the central canal. Pacemaker leads are noted at the left thoracic inlet. Soft tissues: The prevertebral and paraspinous soft tissues are within normal limits. There is atherosclerotic calcification of the carotid bulbs. Calvarium: The visualized calvarium at the skull base appears intact. Brain parenchyma: Partially visualized brain parenchyma at the skull base is within normal limits. Sinuses and mastoids: The visualized paranasal sinuses are clear. The mastoid air cells are well pneumatized. Lung apices: There is apical scarring. Postsurgical change is noted at the left apex. IMPRESSION: 1. There is no evidence of fracture or subluxation involving the cervical spine. 2. Osteopenia and spondylotic changes as above. ACT 112: Negative or not required by law. Electronically signed by: Geoffrey Auguste M.D. 10/25/2022 9:54 AM Chest X-Ray 10/25/22 09:04 SINGLE VIEW CHEST CLINICAL HISTORY: Generalized weakness. FINDINGS: An AP, portable, upright chest radiograph is compared to study dated 06/08/2022 and correlated with chest CT dated 02/24/2020. A 2-lead cardiac pacemaker is unchanged in position. The heart is enlarged. There is pulmonary vascular congestion. Small pleural effusions are suspected. There is bibasilar scarring/atelectasis. No pneumothorax is seen. The skeletal structures are osteopenic. The bony thorax is grossly intact. An intrathecal lead projects over the lower thoracic spine. Cholecystectomy clips are noted in the right upper quadrant. IMPRESSION: 1. Cardiomegaly and cardiac pacemaker with pulmonary vascular congestion. 2. Small pleural effusions. ACT 112: Negative or not required by law. Electronically signed by: Geoffrey Auguste M.D. 10/25/2022 10:[address] 10/25/22 09:[address] WITHOUT CONTRAST CLINICAL HISTORY: fall, trauma COMPARISON STUDY: Facial bone CT April 14, 2020. TECHNIQUE: A maxillofacial CT was performed without IV contrast. Coronal and sagittal reformats were viewed. Automated exposure control was utilized for the study. A dose lowering technique was utilized adhering to the principles of ALARA. FINDINGS: No acute facial bone fracture is identified. Alignment of the temporomandibular joints is anatomic. There is no acute skull base fracture. Globes are intact. There is no retrobulbar hematoma. The head CT will be reported separately. Numerous teeth are absent. IMPRESSION: No acute facial fracture. ACT 112: Negative or not required by law. Electronically signed by: Boyd Chandler M.D. 10/25/2022 10:51 AM Femur X-Ray 10/25/22 09:04 SINGLE VIEW PELVIS; 2 VIEWS LEFT HIP; 2 VIEWS LEFT FEMUR CLINICAL HISTORY: Fall. Left leg injury. FINDINGS: An AP view of the pelvis, AP and crosstable lateral views of the left hip, with AP and crosstable lateral views of the left femur are obtained. Comparison is made to pelvic x-ray dated 06/23/2018. The skeletal structures are osteopenic. There is no radiographic evidence of acute fracture involving the h ips or bony pelvis. Bilateral hip arthroplasties are in near-anatomic alignment. No periprosthetic lucency is seen. Sclerotic changes noted in the sacroiliac joints. There is chronic deformity of the left proximal femur with a buttress plate in place along the lateral cortex. An intramedullary nail is present in the distal femur and a left knee arthroplasty is in place. There is a comminuted fracture of the distal left femoral metadiaphysis with displaced fragments. The largest fragments are medially displaced by up to 8 mm. Overlying soft tissue edema is noted. Fracture is located around the intramedullary nail and may extend to the left knee arthroplasty. No acute fracture is seen involving the left proximal femur. There is mild atherosclerotic calcification of the femoral artery. Moderate fecal retention is noted in the rectosigmoid. IMPRESSION: 1. No acute fracture is seen involving the hips or bony pelvis. 2. Comminuted periprosthetic fracture of the distal left femoral metadiaphysis with displaced fragments as detailed above. 3. 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 Fracture may extend to the left knee arthroplasty. 4. The left proximal femur appears intact. Electronically signed by: Geoffrey Auguste M.D. 10/25/2022 10:56 AM Hip/Pelvis X-Ray 10/25/22 09:04 SINGLE VIEW PELVIS; 2 VIEWS LEFT HIP; 2 VIEWS LEFT FEMUR CLINICAL HISTORY: Fall. Left leg injury. FINDINGS: An AP view of the pelvis, AP and crosstable lateral views of the left hip, with AP and crosstable lateral views of the left femur are obtained. Comparison is made to pelvic x-ray dated 06/23/2018. The skeletal structures are osteopenic. There is no radiographic evidence of acute fracture involving the hips or bony pelvis. Bilateral hip arthroplasties are in near-anatomic alignment. No periprosthetic lucency is seen. Sclerotic changes noted in the sacroiliac joints. There is chronic deformity of the left proximal femur with a buttress plate in place along the lateral cortex. An intramedullary nail is present in the distal femur and a left knee arthroplasty is in place. There is a comminuted fracture of the distal left femoral metadiaphysis with displaced fragments. The largest fragments are medially displaced by up to 8 mm. Overlying soft tissue edema is noted. Fracture is located around the intramedullary nail and may extend to the left knee arthroplasty. No acute fracture is seen involving the left proximal femur. There is mild atherosclerotic calcification of the femoral artery. Moderate fecal retention is noted in the rectosigmoid. IMPRESSION: 1. No acute fracture is seen involving the hips or bony pelvis. 2. Comminuted periprosthetic fracture of the distal left femoral metadiaphysis with displaced fragments as detailed above. 3. 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 Fracture may extend to the left knee arthroplasty. 4. The left proximal femur appears intact. Electronically signed by: Geoffrey Auguste M.D. 10/25/2022 10:56 AM Knee X-Ray 10/25/22 09:04 XR knee LT 1 or 2V routine CLINICAL HISTORY: fall, swelling, trauma COMPARISON: Left knee radiographs October 29, 2018. FINDINGS: Left knee arthroplasty is noted. There is also an intramedullary kalee within the left femur. Note is made of an acute comminuted mildly displaced periprosthetic distal left femoral fracture. Fracture extends from the level the distal shaft of the left femur to the femoral component of the knee arthroplasty. Fracture is displaced 8 mm. There is no proximal left tibial or fibular fracture. IMPRESSION: Acute comminuted mildly displaced periprosthetic distal left femoral fracture, as described above. Fracture is adjacent to the distal aspect of the intramedullary kalee and extends to the femoral component of the left knee arthropathy. ACT 112: Negative or not required by law. Electronically signed by: Boyd Chandler M.D. 10/25/2022 11:03 AM KUB X-Ray 10/28/22 10:54 [facility]UB CLINICAL HISTORY: Abdominal pain. COMPARISON STUDY: KUB June 08, 2017. FINDINGS: This study was technically difficult to obtain. This study is mildly compromised by motion artifact. The lower pelvis was not included. The bowel gas pattern is within normal limits. Intracanalicular stimulator is present. IMPRESSION: No evidence for a bowel obstruction. Exam mildly compromised by artifact. ACT 112: Negative or not required by law. Electronically signed by: Boyd Chandler M.D. 10/28/2022 11:[address] 10/28/22 16:47 CT OF THE HEAD WITHOUT CONTRAST CLINICAL HISTORY: Altered mental status. Fall. Head injury. COMPARISON STUDY: Head CTs September 26, 2021 and October 25, 2022. TECHNIQUE: Helical axial images of the head were obtained without IV contrast. Automated exposure control was utilized for the study. A dose lowering technique was utilized adhering to the principles of ALARA. FINDINGS: This exam is mildly compromised by motion artifact. No acute intracranial hemorrhage, midline shift or mass effect is present. The ventricular system is stable. The basal cisterns are patent. No extra-axial collections are present. There are no findings to suggest acute dural sinus thrombosis or acute territorial infarct. No significant calvarial abnormalities are present. Visualized portions of the sinuses and mastoid air cells are clear. IMPRESSION: 1. Exam mildly compromised by motion artifact. No acute intracranial findings. 2. No calvarial fractures identified. ACT 112: Negative or not required by law. Electronically signed by: Boyd Chandler M.D. 10/28/2022 6:[address] 10/28/22 17:08 CT lumbar spine wo con CLINICAL HISTORY: Fall COMPARISON STUDY: Lumbar spine MRI November 10, 2008. CT of the abdomen and pelvis February 28, 2009. TECHNIQUE: Axial images of the lumbar spine were obtained without IV contrast. Sagittal and coronal reconstructions were viewed. Automated exposure control was utilized for the study. A dose lowering technique was utilized adhering to the principles of ALARA. FINDINGS: For purposes of numbering on this exam, the L5-S1 disc space is assigned to axial image 387 of [id number]. Intracanalicular electrodes enter the canal at the L1-L2 level. Leads terminate at the inferior T7 level, as shown on the thoracic spine CT which will be reported separately. Alignment of the lumbar spine is anatomic with the exception of mild leftward curvature of the mid to l ower lumbar spine. There is no lumbar spine fracture. No osseous lesions are identified. There is moderate multilevel facet arthrosis. Mild multilevel endplate osteophytosis is present. Paravertebral soft tissues are unremarkable. Bilateral hip arthroplasties are incidentally noted on the merchandising lead tomogram. IMPRESSION: 1. No acute lumbar spine fracture or subluxation. 2. Moderate multilevel facet arthrosis and mild degenerative disc disease within the lumbar spine. ACT 112: Negative or not required by law. Electronically signed by: Boyd Chandler M.D. 10/28/2022 6:[address] 10/28/22 17:08 CT OF THE THORACIC SPINE CLINICAL HISTORY: Fall. COMPARISON STUDY: Thoracolumbar spine radiographs October 03, 2015. Chest CT February 24, 2020. TECHNIQUE: Helical axial images of the thoracic spine were obtained. Sagittal and coronal reconstructions were viewed. Automated exposure control was utilized for the study. A dose lowering technique was utilized adhering to the principles of ALARA. FINDINGS: No acute thoracic spine fracture is identified. No suspicious osseous lesions are identified. There is mild multilevel disc space narrowing and osteophytosis within the thoracic spine. Intracanalicular electrodes terminate at the inferior T7 level. Paravertebral soft tissues are unremarkable. No acute fractures are identified within visualized portions of the posterior ribs. Mildly enlarged mediastinal lymph nodes are unchanged since CT of February 24, 2020. No pneumothorax is identified within visualized portions of the chest. IMPRESSION: No acute thoracic spine fracture or subluxation. ACT 112: Negative or not required by law. Electronically signed by: Boyd Chandler M.D. 10/28/2022 6:35 PM Renal Ultrasound 10/29/22 11:32 RENAL ULTRASOUND HISTORY: Acute hematuria hematuria COMPARISON: CT chest 02/24/2020 FINDINGS: Right kidney: 9.5 x 5.4 x 5.7 cm. There are a few subcentimeter cysts measuring up to 8 mm. No hydronephrosis. Normal corticomedullary differentiation and cortical thickness. Left kidney: 9.4 x 6.4 x 5.1 cm. 9 mm hypoechoic probable cyst within the midpole. No hydronephrosis. Normal corticomedullary differentiation and cortical thickness. Bladder: Partial distention of the urinary bladder with mild wall thickening and prostamegaly. The bilateral ureteral jets were identified. IMPRESSION: 1. No renal calculi or hydronephrosis. 2. Prostatomegaly with findings suggestive of chronic bladder outlet obstruction. ACT 112: Negative or not required by law. Electronically signed by: Doug Pinon M.D. 10/29/2022 2:43 PM Ordered Studies 10/25/22 09:04 CT cervical spine wo con Stat CT face [CT facial bones wo con] Stat CT head/brain wo con Stat 10/28/22 16:[address] [CT head/brain wo con] Routine 10/28/22 17:08 CT lumbar spine wo con Routine CT spine [CT thoracic spine wo con] Routine 10/29/22 11:32 US renal/blad retro comp Stat Hospital Course (1) Altered mental status: (2) Fall: (3) Closed femur fracture: (4) Hypothyroidism: (5) Asthma, allergic: (6) Atherosclerotic heart disease of [place] coronary artery without angina pectoris: (7) Deep vein thrombosis of distal lower extremity: (8) Major depressive disorder: (9) BPH (benign prostatic hyperplasia): (10) COPD (chronic obstructive pulmonary disease): (11) Diastolic dysfunction: (12) SSS (sick sinus syndrome): (13) Pacemaker: (14) HTN (hypertension): (15) HLD (hyperlipidemia): (16) Depression: (17) RLS (restless legs syndrome): Plan Patient is a 77 yr male with H/O Sick sinus syndrome s/p pacemaker placement, diastolic CHF, BPH, Chronic pain syndrome, Dyslipidemia, CAD, MDD, Mendez's, GERD, HTN, COPD/asthma, RLS, Hx of DVT who presents after an unwitnessed fall f rom [facility]. Pt reportedly developed AMS after receiving 10mg of morphine en route to the hospital. Acute comminuted mildly displaced periprosthetic distal left femoral fracture H/O Left Hip surgery with IM nail recently Secondary to fall --Knee X ray:Acute comminuted mildly displaced periprosthetic distal left femoral fracture, as described above. Fracture is adjacent to the distal aspect of the intramedullary kalee and extends to the femoral component of the left knee arthropathy. --Hip/Pelvic X ray:No acute fracture is seen involving the hips or bony pelvis. Comminuted periprosthetic fracture of the distal left femoral metadiaphysis with displaced fragments as detailed above. 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 Fracture may extend to the left knee arthroplasty. The left proximal femur appears intact. --CT Head:There is no hemorrhage, mass effect, or evidence of acute territorial ischemia by CT criteria. -- Knee immobilizer for comfort Weightbearing as tolerated to the left lower extremity Appreciate orthopedics input Continue PT OT Minimize narcotic pain meds as able Needs follow-up with orthopedics upon discharge Pain is controlled Waiting for rehab placement Acute metabolic encephalopathy Likely secondary to pain medications, delirium --CT head:There is no hemorrhage, mass effect, or evidence of acute territorial ischemia by CT criteria. --EEG:This EEG, recorded in wakefulness and somnolent state, is slightly abnormal due to mild diffuse slowing, which can be seen in mild encephalopathy or somnolent state. There is no electrographic seizure or epileptogenic discharge. Minimize Narcotics, sedative meds, anticholinergics as able Empirically received Rocephin for suspected UTI Urine culture negative Blood cultures negative to date Appreciate neurology input Amitriptyline discontinued Gabapentin dose decreased to 300 mg 3 times daily Duloxetine decreased to 30 mg daily Mental status back to baseline Paroxysmal supraventricular tachycardia Pacemaker interrogation done: SVT, atrial fibrillation/atrial flutter. Appreciate cardiology input Amiodarone discontinued Poor candidate for anticoagulation Metoprolol dose increased to 37.5 mg twice a day Replace and monitor electrolytes No recurrence of arrhythmias overnight Hematuria: Urinary retention Secondary to Traumatic Cath Renal USD:No renal calculi or hydronephrosis. Prostatomegaly with findings suggestive of chronic bladder outlet obstruction. Bladder scan as needed Appreciate urology input Continue tamsulosin and finasteride Anticoagulation on hold due to hematuria Hematuria resolved Advised to follow-up with urology as outpatient Chronic conditions: CAD, CHF, HLD, HLD continue Plavix, metoprolol, statin Losartan added for blood pressure control BPH On Flomax Chronic pain syndrome Decreased Cymbalta dose Resumed gabapentin at lower dose Hypothyroidism continue levothyroxine COPD/asthma continue home inhalers Also on prednisone MDD RLS Continue home meds DVT Px: Lovenox SQ--Held Re: Hematuria Code Status: Full Code Disposition SNF when accepted Total Time Total Time Spent Total Time Spent (In Minutes): 55 minutes Discharge Plan Discharge Items Patient Disposition: Transfer Long Term Fac Reason For Visit: FALL, LEG PAIN Discharge Diagnosis: Acute comminuted mildly displaced periprosthetic distal left femoral fracture Mechanical fall Acute metabolic encephalopathy Polypharmacy Paroxysmal supraventricular tachycardia Condition on Discharge: Fair Activity: As commented below Activity Comment: Weightbearing as tolerated, Knee immobilzer for comfort Exercise/Sports: Gradually increase as tolerated Non-emergency contact: Primary Care Provider, Surgeon and Urologist Call non-emergency contact if: you have any medication questions, your symptoms worsen, your pain is concerning for you and you have a fever Follow-up/Referrals: Guera Escudero MD [Primary Care Provider] - Diet: Heart Healthy Diet Comment: Minced and moist Addtl Attending Provider Instructions: Follow-up with your primary care physician Dr. Elio Retana in 1 week upon discharge from rehab facility Follow-up with your orthopedic surgeon Dr. Yip in 2-3 weeks Consider following with a urologist if you have recurrence of blood in your urine as advised. Follow-up with your diving judge Dr. Dennis as needed -- Minimize narcotic pain medications as able given side effects. Seek immediate medical attention if your symptoms reoccur or worsen Please take all medications as instructed on discharge list below. Please call if you have any questions or problems. You can reach a [facility] hospitalist on duty at [facility] 24 hours a day by calling [phone] Pending Studies at Discharge: No Stand-Alone Forms: My [facility] Skilled Items Patient informed of condition?: Yes DNR: No Discharge Level of Care: Skilled Communicable Disease: No Discharge Prognosis: Stable Lines: None Urinary Catheter: No Medications and DC Order Prescriptions: New losartan 50 mg Tablet 50 mg PO QAM Qty: 30 1RF metoprolol succinate 25 mg Tablet Extended Release 24 Hr 37.5 mg PO BID 30 Days Qty: 90 1RF gabapentin 300 mg Capsule 300 mg PO TID 30 Days Qty: 90 0RF Continued fluticasone propion-salmeterol [Advair Diskus] 250-50 mcg/dose Blister With Device 1 inh INHALATION BID sennosides [senna] 8.6 mg Tablet 17.2 mg PO BID Rx Instructions: dc 10/30/2022 acetaminophen [Tylenol] 325 mg Tablet 650 mg PO Q4 PRN (Reason: Fever Or Pain) ipratropium-albuterol 0.5 mg-3 mg(2.5 mg base)/3 mL Solution For Nebulization 3 ml INHALATION Q6H PRN (Reason: Shortness Of Breath Or Wheezing) polyethylene glycol 3350 [Miralax] 17 gram Powder In Packet 17 g PO DAILY Rx Instructions: HOLD FOR LOOSE STOOLS albuterol sulfate 90 mcg/actuation Hfa Aerosol Inhaler 2 puff INHALATION Q4 PRN (Reason: Shortness Of Breath Or Wheezing) ondansetron 4 mg Tablet,Disintegrating 4 mg translingual Q8H PRN (Reason: Nausea) oxycodone 5 mg Tablet 5 mg PO Q4H PRN (Reason: Pain) Rx Instructions: IR. For moderate-severe pain PNV cmb#95-ferrous fumarate-FA [] 28 mg iron- 800 mcg Tablet 1 tab PO DAILY Rx Instructions: unknown strength Artificial Tears (cmc) 1 % Drops 1 drp OPR QID PRN (Reason: .eye pain,irritation,dry eye,itching) atorvastatin 80 mg tablet 80 mg PO DAILY albuterol sulfate 2.5 mg /3 mL (0.083 %) Solution For Nebulization 2.5 mg INHALATION Q4H PRN (Reason: Shortness Of Breath Or Wheezing) polyvinyl alcohol [Artificial Tears (polyvin alc)] 1.4 % drops 1 drp OPR QID PRN (Reason: Pain) clopidogrel 75 mg tablet 75 mg PO DAILY levothyroxine 75 mcg tablet 75 mcg PO DAILY tamsulosin 0.4 mg capsule 0.4 mg PO DAILY pantoprazole 40 mg tablet,delayed release (DR/EC) 40 mg PO DAILY nitroglycerin [Nitrostat] 0.4 mg Tablet, Sublingual 0.4 mg sublingual DIRECTED PRN (Reason: Chest Pain) fluticasone propionate 50 mcg/actuation spray,suspension 2 spray INTRANASAL DAILY PRN (Reason: ALLERGIES) docusate sodium 100 mg Tablet 100 mg PO BID finasteride 5 mg tablet 5 mg PO DAILY duloxetine 30 mg capsule,delayed release(DR/EC) 30 mg PO DAILY Rx Instructions: TAKE WITH 60 MG=90MG cholecalciferol (vitamin D3) [Vitamin D3] 25 mcg (1,000 unit) Tablet 25 mcg PO AMHS Anoro Ellipta 62.5-25 mcg/actuation Blister With Device 1 inh INHALATION DAILY Changed enoxaparin 30 mg/0.3 mL Syringe 30 mg SUBCUT DAILY Qty: 3 0RF Rx Instructions: END 11/03/2022 Held duloxetine 60 mg capsule,delayed release(DR/EC) 60 mg PO DAILY Hold Instructions: Resume on 10/31/22. Can resume if no recurrence of side effects. Discuss with your physician for further recommendations Discontinued gabapentin 600 mg tablet 600 mg PO TID prednisone 20 mg Tablet 40 mg PO .DAILY FOR 5 DAYS Rx Instructions: dc date 10/29/2022 omeprazole 40 mg Capsule,Delayed Release(Dr/Ec) 40 mg PO DAILY amitriptyline 50 mg Tablet 50 mg PO HS metoprolol tartrate 25 mg Tablet 25 mg PO BID Rx Instructions: AM, HS Admission Data Admit Date/Time: 10/25/22 21:49 Attending Provider: Chris Gaston Admit Provider: Estela Lott Primary Care Provider: Guera Escudero Other Providers: Estela Lott ; Emely Freed ; Donell Bangura ; Josh Rosenthal ; Wenceslao Dennis ; Tim Holloway ; Reji Mendez ; Varsha Banerjee ; Maude Pierce ; Emely Maria ; José Miguel Wadsworth ; Harish Ashby ; Ismael Yip Adam M. ; Joseph Walker ; Erasmo Albarran ; Kristian Bundy ; Nia Wylie ; Davian Howell ; Marly Dueñas ; Aubree Flynn ; Hermelindo Aguilera ; Josh Ochoa ; Guera Negrete ; Wenceslao Mcclure ; Alexis Arroyo
[2022-11-01] MEDS: LEVOTHYROXINE SODIUM 75 MCG TABLET PO SCH (06:06)
[2022-11-01] MEDS: METOPROLOL SUCC 25MG EXT REL TAB PO SCH (08:45)
[2022-11-01] MEDS: DOCUSATE SODIUM 100 MG CAP PO SCH (08:46)
[2022-11-01] MEDS: ATORVASTATIN 40 MG TAB PO SCH (08:46)
[2022-11-01] MEDS: TAMSULOSIN HCL 0.4 MG CAP PO SCH (08:46)
[2022-11-01] MEDS: GABAPENTIN 300 MG CAP PO SCH ×2 (08:46→13:48)
[2022-11-01] MEDS: CLOPIDOGREL BISULFATE 75 MG TAB PO SCH (08:46)
[2022-11-01] MEDS: DULoxetine HCL 30 MG CAP PO SCH (08:46)
[2022-11-01] MEDS: CHOLECALCIFEROL 1,000 UNITS 25 MCG TAB PO SCH (08:46)
[2022-11-01] MEDS: PANTOprazole 40 MG TAB PO SCH (08:46)
[2022-11-01] MEDS: FINASTERIDE 5 MG TAB PO SCH (08:46)
[2022-11-01] MEDS: LOSARTAN POTASSIUM 50 MG TAB PO SCH (08:47)
[2022-11-01] MEDS: POLYETHYLENE (MIRALAX) 17 GM PACK PO SCH (08:47)
[2022-11-01] MEDS: FLUTICASONE/VILANTEROL 200/25MCG 14 PUFFS/INHALER INH SCH (08:47)
--- NOTE | 2022-11-01 17:20 | Discharge Summary ---
Date of Service November 01, 2022 Admission HPI Per Admitting Provider Pt is a 77yo gentleman with PMHx of sick sinus syndrome s/p pacemaker placement, diastolic CHF, BPH, Chronic pain syndrome, Dyslipidemia, CAD, MDD, Mendez's, GERD, HTN, COPD/asthma, RLS, Hx of DVT who presents after an unwitnessed fall from [facility]. Pt reportedly developed AMS after receiving 10mg of morphine en route to the hospital. Per brother Gwyn who was contacted via telephone, pt tried to get out of bed on his own at [facility] and fell. He was recently admitted to [facility] and underwent ORIF of the left distal femur on 10/04/2022. Per [facility] chart review he also 2 units of PRBCs for acute blood loss anemia and had an episode of SVT that required adenosine post-op. Also had an aspiration pneumonia event and Klebsiella UTI. Today, pt was given 10mg of morphine en route to the emergency department. He is currently lethargic and confused and brother states that at baseline he is usually alert. Pt has a Hx of bilateral hip replacements and left knee replacement. ED workup with multiple xrays of the left knee, hips and pelvis, femur all showed no acute fracture but confirmed the presence of a nonhealed periprosthetic distal left femur fracture. Head CT with no acute brain bleed. Admission Exam Per Admitting Provider General: Pt laying in bed moaning occasionally, unarousable Skin: No noted rashes or bruises Neuro:Moaning HEENT:head appears atraumatic Chest: Nontender to palpation. Opens eyes with sternal rub CV: RRR Resp: no increased effort of breathing Abdomen: Pt restless whenever palpation of the abdomen is attempted Extremities: No edema in lower extremities bilaterally. Principal Diagnosis Altered mental status likely due to polypharmacy Acute comminuted mildly displaced periprosthetic distal left femoral fracture, history of left hip surgery with IM nail Discharge Exam Physical Exam: Vitals signs as noted above General Appearance:Moderately built and nourished, no apparent distress Head: normocephalic, Atraumatic Eyes: normal inspection, EOMI Neck: supple, Trachea midline Respiratory/Chest: Normal breath sounds, CTA, No accessory muscle use Cardiovascular: S1, S2, No murmur Abdomen/GI:Soft, Non tender, Bowel sounds present Extremities/Musculoskeletal:normal inspection, no edema, Left LE in immobilizer Neurologic/Psych:AAOX3, grossly no focal deficits Skin: normal color, warm Discharge Data Allergies Allergy/AdvReac Type Severity Reaction Status Date / Time adhesive Allergy Unknown GOODE SKIN Verified 10/25/22 12:52 No Known Drug Allergies Allergy Unknown . Verified 09/26/21 22:54 latex Allergy Unknown Verified 10/25/22 12:52 Consultations 10/25/22 13:57 ED Decision to Admit Stat 10/25/22 22:48 Consult Cardiology Routine 10/26/22 07:55 Consult Orthopedic Surgery Routine 10/28/22 09:44 Consult Neurology Routine 10/29/22 06:21 Consult Urology Routine Ordered Studies 10/25/22 09:04 CT cervical spine wo con Stat CT face [CT facial bones wo con] Stat CT head/brain wo con Stat 10/28/22 16:[address] [CT head/brain wo con] Routine 10/28/22 17:08 CT lumbar spine wo con Routine CT spine [CT thoracic spine wo con] Routine 10/29/22 11:32 US renal/blad retro comp Stat Hospital Course (1) Altered mental status: (2) Fall: (3) Closed femur fracture: (4) Hypothyroidism: (5) Asthma, allergic: (6) Atherosclerotic heart disease of [place] coronary artery without angina pectoris: (7) Deep vein thrombosis of distal lower extremity: (8) Major depressive disorder: (9) BPH (benign prostatic hyperplasia): (10) COPD (chronic obstructive pulmonary disease): (11) Diastolic dysfunction: (12) SSS (sick sinus syndrome): (13) Pacemaker: (14) HTN (hypertension): (15) HLD (hyperlipidemia): (16) Depression: (17) RLS (restless legs syndrome): Plan Patient is a 77 yr male with H/O Sick sinus syndrome s/p pacemaker placement, diastolic CHF, BPH, Chronic pain syndrome, Dyslipidemia, CAD, MDD, Mendez's, GERD, HTN, COPD/asthma, RLS, Hx of DVT who presents after an unwitnessed fall from [facility]. Pt reportedly developed AMS after receiving 10mg of morphine en route to the hospital. 1) Acute comminuted mildly displaced periprosthetic distal left femoral fracture H/O Left Hip surgery with IM nail recently Secondary to fall --Knee X ray:Acute comminuted mildly displaced periprosthetic distal left femoral fracture, as described above. Fracture is adjacent to the distal aspect of the intramedullary kalee and extends to the femoral component of the left knee arthropathy. --Hip/Pelvic X ray:No acute fracture is seen involving the hips or bony pelvis. Comminuted periprosthetic fracture of the distal left femoral metadiaphysis with displaced fragments as detailed above. 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 Fracture may extend to the left knee arthroplasty. The left proximal femur appears intact. --CT Head:There is no hemorrhage, mass effect, or evidence of acute territorial ischemia by CT criteria. -- Knee immobilizer for comfort Plan; Weightbearing as tolerated to the left lower extremity Continue PT OT Minimize narcotic pain meds as able Needs follow-up with orthopedics upon discharge Pain is controlled 2) Acute metabolic encephalopathy Likely secondary to pain medications, delirium --CT head:There is no hemorrhage, mass effect, or evidence of acute territorial ischemia by CT criteria. --EEG:This EEG, recorded in wakefulness and somnolent state, is slightly abnormal due to mild diffuse slowing, which can be seen in mild encephalopathy or somnolent state. There is no electrographic seizure or epileptogenic discharge. Minimize Narcotics, sedative meds, anticholinergics as able Empirically received Rocephin for suspected UTI Urine culture negative Blood cultures negative to date During the hospitalization, Amitriptyline discontinued Gabapentin dose decreased to 300 mg 3 times daily Duloxetine decreased to 30 mg daily Mental status back to baseline at discharge. 3) Paroxysmal supraventricular tachycardia Pacemaker interrogation done: SVT, atrial fibrillation/atrial flutter. Amiodarone discontinued Poor candidate for anticoagulation Metoprolol dose increased to 37.5 mg twice a day Replace and monitor electrolytes No recurrence of arrhythmias overnight 4) Hematuria: Urinary retention Secondary to Traumatic Cath Renal USD:No renal calculi or hydronephrosis. Prostatomegaly with findings suggestive of chronic bladder outlet obstruction. Bladder scan as needed Appreciate urology input Continue tamsulosin and finasteride Anticoagulation on hold due to hematuria Hematuria resolved Advised to follow-up with urology as outpatient At discharge, patient was hemodynamically stable. His mentation was back to baseline. He was discharged back to rehab with medication changes. Total Time Total Time Spent Total Time Spent (In Minutes): 45 Total Time Includes: Examination of the Patient, Discharge Planning, Medication Reconciliation, Communication With Other Providers and Other Discharge Plan Discharge Items Patient Disposition: Transfer [facility] Reason For Visit: FALL, LEG PAIN Discharge Diagnosis: Acute comminuted mildly displaced periprosthetic distal left femoral fracture Mechanical fall Acute metabolic encephalopathy Polypharmacy Paroxysmal supraventricular tachycardia Condition on Discharge: Fair Activity: As commented below Activity Comment: Weightbearing as tolerated, Knee immobilzer for comfort Exercise/Sports: Gradually increase as tolerated Non-emergency contact: Primary Care Provider, Surgeon and Urologist Call non-emergency contact if: you have any medication questions, your symptoms worsen, your pain is concerning for you and you have a fever Follow-up/Referrals: Guera Escudero MD [Primary Care Provider] - Diet: Heart Healthy Diet Comment: Minced and moist Addtl Attending Provider Instructions: Follow-up with your primary care physician Dr. Elio Retana in 1 week upon discharge from rehab facility Follow-up with your orthopedic surgeon Dr. Yip in 2-3 weeks Consider following with a urologist if you have recurrence of blood in your urine as advised. Follow-up with your middle school director Dr. Dennis as needed -- Minimize narcotic pain medications as able given side effects. Seek immediate medical attention if your symptoms reoccur or worsen Please take all medications as instructed on discharge list below. Please call if you have any questions or problems. You can reach a [facility] hospitalist on duty at [facility] 24 hours a day by calling [phone] Pending Studies at Discharge: No Stand-Alone Forms: My [facility] Skilled Items Patient informed of condition?: Yes DNR: No Discharge Level of Care: Skilled Communicable Disease: No Discharge Prognosis: Stable Lines: None Urinary Catheter: No Medications and DC Order Prescriptions: New losartan 50 mg Tablet 50 mg PO QAM Qty: 30 1RF metoprolol succinate 25 mg Tablet Extended Release 24 Hr 37.5 mg PO BID 30 Days Qty: 90 1RF gabapentin 300 mg Capsule 300 mg PO TID 30 Days Qty: 90 0RF Continued fluticasone propion-salmeterol [Advair Diskus] 250-50 mcg/dose Blister With Device 1 inh INHALATION BID sennosides [senna] 8.6 mg Tablet 17.2 mg PO BID Rx Instructions: dc 10/30/2022 acetaminophen [Tylenol] 325 mg Tablet 650 mg PO Q4 PRN (Reason: Fever Or Pain) ipratropium-albuterol 0.5 mg-3 mg(2.5 mg base)/3 mL Solution For Nebulization 3 ml INHALATION Q6H PRN (Reason: Shortness Of Breath Or Wheezing) polyethylene glycol 3350 [Miralax] 17 gram Powder In Packet 17 g PO DAILY Rx Instructions: HOLD FOR LOOSE STOOLS albuterol sulfate 90 mcg/actuation Hfa Aerosol Inhaler 2 puff INHALATION Q4 PRN (Reason: Shortness Of Breath Or Wheezing) ondansetron 4 mg Tablet,Disintegrating 4 mg translingual Q8H PRN (Reason: Nausea) oxycodone 5 mg Tablet 5 mg PO Q4H PRN (Reason: Pain) Rx Instructions: IR. For moderate-severe pain PNV cmb#95-ferrous fumarate-FA [] 28 mg iron- 800 mcg Tablet 1 tab PO DAILY Rx Instructions: unknown strength Artificial Tears (cmc) 1 % Drops 1 drp OPR QID PRN (Reason: .eye pain,irritation,dry eye,itching) atorvastatin 80 mg tablet 80 mg PO DAILY albuterol sulfate 2.5 mg /3 mL (0.083 %) Solution For Nebulization 2.5 mg INHALATION Q4H PRN (Reason: Shortness Of Breath Or Wheezing) polyvinyl alcohol [Artificial Tears (polyvin alc)] 1.4 % drops 1 drp OPR QID PRN (Reason: Pain) clopidogrel 75 mg tablet 75 mg PO DAILY levothyroxine 75 mcg tablet 75 mcg PO DAILY tamsulosin 0.4 mg capsule 0.4 mg PO DAILY pantoprazole 40 mg tablet,delayed release (DR/EC) 40 mg PO DAILY nitroglycerin [Nitrostat] 0.4 mg Tablet, Sublingual 0.4 mg sublingual DIRECTED PRN (Reason: Chest Pain) fluticasone propionate 50 mcg/actuation spray,suspension 2 spray INTRANASAL DAILY PRN (Reason: ALLERGIES) docusate sodium 100 mg Tablet 100 mg PO BID finasteride 5 mg tablet 5 mg PO DAILY duloxetine 30 mg capsule,delayed release(DR/EC) 30 mg PO DAILY Rx Instructions: TAKE WITH 60 MG=90MG cholecalciferol (vitamin D3) [Vitamin D3] 25 mcg (1,000 unit) Tablet 25 mcg PO AMHS Anoro Ellipta 62.5-25 mcg/actuation Blister With Device 1 inh INHALATION DAILY Changed enoxaparin 30 mg/0.3 mL Syringe 30 mg SUBCUT DAILY Qty: 3 0RF Rx Instructions: END 11/03/2022 Held duloxetine 60 mg capsule,delayed release(DR/EC) 60 mg PO DAILY Hold Instructions: Resume on 10/31/22. Can resume if no recurrence of side effects. Discuss with your physician for further recommendations Discontinued gabapentin 600 mg tablet 600 mg PO TID prednisone 20 mg Tablet 40 mg PO .DAILY FOR 5 DAYS Rx Instructions: dc date 10/29/2022 omeprazole 40 mg Capsule,Delayed Release(Dr/Ec) 40 mg PO DAILY amitriptyline 50 mg Tablet 50 mg PO HS metoprolol tartrate 25 mg Tablet 25 mg PO BID Rx Instructions: AM, HS Discharge Orders: Discharge Order (Routine); Ordered 11/01/22 Ordered By: Dariusz Price Admission Data Admit Date/Time: 10/25/22 21:49 Attending Provider: Dariusz Price Admit Provider: Estela Lott Primary Care Provider: Guera Escudero Other Providers: Estela Lott ; Emely Freed ; Donell Bangura ; Josh Rosenthal ; Wenceslao Dennis ; Tim Holloway ; Reji Mendez ; Varsha Banerjee ; Maude Pierce ; Emely Maria ; José Miguel Wadsworth ; Harish Ashby ; Ismael Yip ; Jonny Villalta ; Joseph Walker ; Erasmo Albarran ; Kristian Bundy ; Nia Wylie ; Davian Howell ; Marly Dueñas ; Aubree Flynn ; Hermelindo Aguilera ; Josh Ochoa ; Guera Negrete ; Wenceslao Mcclure ; Alexis Arroyo ; Sandra HookerHarmeet Other Interventions: Discharge Summary Assessment (RN) Last Done: 11/01/22 11:48
== END 2022-11-01 15:29 | DRG 559 ==
LOC: EDINP 08:37 → ED 08:37 → 4W 20:23 → SUATTDRO 21:49

== ENCOUNTER 2023-03-06 15:57 | Inpatient (IN) ==
[2023-03-06] MEDS ORDERED: ALBUT/IPRATROP 3MG/0.5MG NEB 3 ML VIAL NEB STA (16:23)
--- NOTE | 2023-03-06 16:23 | ED Triage Note ---
Date of Service March 06, 2023 History of Present Illness This patient was briefly evaluated while in triage. An abbreviated physical exam was performed. This patient is a 78-year-old Male who presents to the ED for evaluation of SOB. Has had a "chest cold" for the past week. Feels like it's in the right lung. Having chest pain on the right side as well. Has had to start his oxygen because of trouble breathing. The cough is getting progressively worse. No known fevers. Physical Exam GENERAL: Non-toxic and in no acute distress. HEENT: Pupils equal. No obvious scleral icterus. HEART: Regular rate and rhythm. LUNGS: Clear to auscultation. Wheezing throughout. ABDOMEN: Soft, non-tender. NEURO: Alert and oriented. No obvious neurological deficits on quick neuro exam. Initial orders for labs and / or imaging were placed and patient was placed in the waiting area until a bed is available. Please see further documentation for the full ED course.
--- NOTE | 2023-03-06 17:09 | XRay Report ---
XR chest 1V not portable CLINICAL HISTORY: Chest pain, cough COMPARISON STUDY: Chest radiograph October 25, 2022. Chest CT February 24, 2020. FINDINGS: Left subclavian pacer is in place. There are cholecystectomy clips. Intracanalicular electr odes are incidentally noted. Cardiomegaly is unchanged. There is no evidence for pulmonary edema. The re is no pneumothorax or pleural effusion. There is no consolidation to suggest pneumonia. The appear ance of the chest is unchanged. IMPRESSION: No acute cardiopulmonary findings. No change in appearance of the chest. ACT 112: Negative or not required by law. Electronically signed by: Boyd Chandler M.D. 03/06/2023 5:08 PM
[2023-03-06 18:22] LABS: Basophils # (auto) 0.04 K/uL (0.00-0.20); Basophils % (auto) 0.6 %; Hemoglobin 12.8 g/dl (14.0-18.0); Immature Granulocytes # (auto) 0.01 K/uL (0.01-0.20); Immature Granulocytes % (auto) 0.2 %; Lymphocytes % (auto) 24.2 %; Mean Corpuscular Hemoglobin 30.3 pg (25.0-34.0); Mean Corpuscular Hgb Conc 32.8 g/dL (32.0-36.0); Mean Corpuscular Volume 92.2 fL (80.0-100.0); Mean Platelet Volume 10.5 fL (9.4-12.4); Monocytes # (auto) 0.71 K/uL (0.11-0.59); Monocytes % (auto) 10.7 %; Neutrophils # (auto) 4.05 K/uL (1.40-6.50); Neutrophils % (auto) 61.3 %; Platelet Count 244 K/uL (130-400); RDW Coefficient of Variation 15.2 % (11.5-14.5); RDW Standard Deviation 50.8 fL (36.4-46.3); Red Blood Count 4.23 M/uL (4.70-6.10); White Blood Count 6.61 K/ul (4.8-10.8)
[2023-03-06 18:39] LABS: Alanine Aminotransferase 11 U/L (7-52); Albumin Globulin Ratio 1.1 (0.9-2); Albumin Level 4.1 gm/dl (3.4-5.0); Alkaline Phosphatase 119 U/L (34-104); Anion Gap 6 (3-11); BUN Creatinine Ratio 11.8 (10-20); Bilirubin,Total 0.5 mg/dl (0.2-1.0); Blood Urea Nitrogen 13 mg/dl (6-23); Calcium 9.5 mg/dl (8.6-10.3); Carbon Dioxide 25 mmol/L (21-32); Chloride 106 mmol/L (98-107); Est GFR (African American) 74.7 ml/min; Est GFR (Non-African American) 64.4 ml/min; Globulin 3.6 gm/dl (2.5-4.0); Glucose 90 mg/dl (70-99(Fasting)); Lipase 12 U/L (11-82); Sodium 137 mmol/L (136-145); Total Protein 7.7 gm/dl (6.0-8.3)
[2023-03-06 18:49] LABS: Partial Thromboplastin Ratio 0.9; Partial Thromboplastin Time 24.4 Seconds (21.0-31.0)
--- NOTE | 2023-03-06 18:54 | Emergency Department Note ---
Impression & Plan Acute exacerbation of chronic obstructive pulmonary disease, Anemia ED Provider Note NAME: CORRIE MCCARTY AGE: 78 SEX: M : 1945 ARRIVES VIA: Walk-In INFORMANT: Patient, ED PROVIDER(S): Nicolás Ruvalcaba MD CHIEF COMPLAINT: Cough, shortness of breath MEDICAL DECISION MAKING: Patient presents due to concern for cough and associated shortness of breath. IV was established and blood work is obtained along with an EKG troponin chest x-ray. Patient did receive DuoNeb treatments. The patient does have persistent wheezing. Patient was ordered IV methylprednisolone, IV magnesium Blood shows a normal white count mild anemia hemoglobin of 12. The patient's platelet count is unremarkable with normal kidney function and electrolytes. EKG with T wave inversions in the lateral and high lateral leads not significantly changed from prior. Patient's bio fire viral swab is positive for entero and rhinovirus. Given the patient's persistent symptoms as well as chronic COPD do believe the patient would benefit from admission and treatment. I did speak the on-call hospitalist Dr. Eason and the patient was admitted to medicine service. Prior /Outside records reviewed: I did review a prior discharge summary from November 01, 2022. Patient has a known history of sick sinus syndrome status post pacemaker placement diastolic CHF BPH chronic pain CAD MDD Mendez's GERD hypertension COPD asthma restless leg history of DVT who presented at that time due to concern for a fall and associated left hip fracture. Differential diagnosis: Reactive airway disease, pneumonia, pneumothorax, COPD, CHF, ACS, pulmonary embolism, musculoskeletal, GERD as well as other pathologies were considered. Diagnostics, as interpreted by me: ECG: A paced rhythm, rate of 65, normal intervals, normal axis, T wave inversions V6 through 1 and aVL. 1 and aVL appear to be old from comparison EKG completed October 26, 2022. No obvious ST elevations Cardiac monitoring: An order was placed for continuous cardiac monitoring. The monitor shows a rate of 65 with paced rhythm. Patient was placed on pulse oximetry Medical decision rules: None Imaging studies: See below I informally reviewed the patient's chest x-ray which does not show obvious consolidative pneumonia or pneumothorax. HPI: Patient presents due to concern for worsening shortness of breath. The patient has had associated productive discolored sputum. Patient is a former smoker does have a known history of COPD. The patient has been using his inhalers but without improvement in symptoms. The patient does have dyspnea on exertion. No significant orthopnea or leg swelling. Patient states he is compliant with his medications. No falls or trauma. PAST MEDICAL HISTORY: See Below PAST SURGICAL HISTORY: See Below SOCIAL HISTORY: See Below HOME MEDICATIONS: See Below ALLERGIES: See Below VITALS: See Below PHYSICAL EXAMINATION: GENERAL: Mildly ill but nontoxic in appearance EYE EXAM: Normal conjunctiva. PERRL, no anisocoria and EOM's grossly intact w/o pain. OROPHARYNX: Moist mucus membranes, grossly normal dentition. NECK: Supple, no nuchal rigidity, no adenopathy, non-tender. No signs of meningismus. FROM of the neck with good chin to chest and neck extension. No stridor. LUNGS: Wheezing noted. Coarse breath sounds bilaterally also noted, normal chest wall mechanics. HEART: NSR, no MRG. ABDOMEN: Abdomen soft, non-tender, no masses, no rebound or guarding. BACK: No CVA TTP. SKIN: No rashes and no bruising. UPPER EXTREMITIES: Upper extremities are grossly normal. LOWER EXTREMITIES: Grossly normal, no edema. Negative Homans' sign bilaterally. NEURO EXAM: A&O x3, cranial nerves II-XII grossly intact, normal speech, moves all 4 extremities. Past Med/Surg History Medical History (Updated 03/07/23 @ 02:23 by Nicolás Ruvalcaba MD) BPH (benign prostatic hyperplasia) Carotid stenosis Cervical radiculopathy Chronic anticoagulation Chronic hip pain after total replacement of right hip joint Chronic right SI joint pain COPD (chronic obstructive pulmonary disease) Depression Diastolic dysfunction DVT (deep venous thrombosis) (01/29/14) Emphysema of lung Exertional shortness of breath Fingertip amputation History of left heart catheterization (LHC) HLD (hyperlipidemia) HTN (hypertension) Hypothyroidism Intercostal neuralgia Left shoulder pain Lumbar post-laminectomy syndrome Lung infiltrate Myofascial pain Neuritis of left ulnar nerve 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 Osteoarthritis of left knee Pacemaker Post-thoracotomy pain syndrome RLS (restless legs syndrome) Spinal cord stimulator status SSS (sick sinus syndrome) Symptomatic bradycardia Surgical History H/O knee surgery History of hip surgery History of total knee arthroplasty Hx of cholecystectomy Status post insertion of spinal cord stimulator Family History Mother Heart disease Social History (Updated 03/06/23 @ 18:53 by Nicolás Ruvalcaba MD) Smoking Status: Former smoker Tobacco Type: Cigarettes Hx Alcohol Use: No Hx Substance Use: No Preferred Language: Belarusian Communication Ability: Impaired Body Technician/Painter Required: No Beliefs That Will Affect Care: None marital status: Current Living Situation: Rehab Current Living Situation Comment: [facility] current occupational status: disabled Feels Safe at Home: Yes Assistive Devices: Walker Allergies Allergies Allergy/AdvReac Type Severity Reaction Status Date / Time adhesive Allergy Unknown GOODE SKIN Verified 03/06/23 20:08 No Known Drug Allergies Allergy Unknown . Verified 03/06/23 20:08 latex Allergy Unknown Verified 03/06/23 20:08 Home Meds Home Medications Medication Instructions Recorded Confirmed acetaminophen 500 mg tablet 1,000 mg PO TID PRN Pain 03/06/23 03/06/23 (Tylenol Extra Strength) albuterol sulfate 2.5 mg/3 mL 2.5 mg continuous nebulization Q6 03/06/23 03/06/23 (0.083 %) solution for nebulization PRN Shortness Of Breath Or Wheezing albuterol sulfate 90 mcg/actuation 2 puff inhalation Q4 PRN Shortness 03/06/23 03/06/23 aerosol inhaler Of Breath Or Wheezing amitriptyline 25 mg tablet 50 mg PO HS 03/06/23 03/06/23 atorvastatin 80 mg tablet 80 mg PO DAILY 03/06/23 03/06/23 cholecalciferol (vitamin D3) 25 25 mcg PO BID 03/06/23 03/06/23 mcg (1,000 unit) tablet (Vitamin D3) clopidogrel 75 mg tablet 75 mg PO QAM 03/06/23 03/06/23 dextran 70-hypromellose 0.1 %-0.3 1 drp ophthalmic (eye) QID PRN Dry 03/06/23 03/06/23 % eye drops Eyes docusate sodium 100 mg tablet 100 mg PO BID 03/06/23 03/06/23 duloxetine 30 mg capsule,delayed 30 mg PO QPM 03/06/23 03/06/23 release duloxetine 60 mg capsule,delayed 60 mg PO QPM 03/06/23 03/06/23 release finasteride 5 mg tablet 5 mg PO DAILY 03/06/23 03/06/23 fluticasone 250 mcg-salmeterol 50 1 inh inhalation BID 03/06/23 03/06/23 mcg/dose blistr powdr for inhalation fluticasone propionate 50 2 spray intranasal DAILY 03/06/23 03/06/23 mcg/actuation nasal spray,suspension (Flonase Allergy Relief) gabapentin 300 mg capsule 300 mg PO TID 03/06/23 03/06/23 levothyroxine 75 mcg tablet 75 mcg PO DAILY 03/06/23 03/06/23 lidocaine 4 % topical patch 1 patch topical Q12 03/06/23 03/06/23 losartan 50 mg tablet 50 mg PO DAILY 03/06/23 03/06/23 metoprolol succinate 25 mg 37.5 mg PO DAILY 03/06/23 03/06/23 tablet,extended release 24 hr nitroglycerin 0.4 mg sublingual 0.4 mg sublingual DIRECTED PRN 03/06/23 03/06/23 tablet Chest Pain pantoprazole 40 mg tablet,delayed 40 mg PO DAILY 03/06/23 03/06/23 release polyethylene glycol 3350 17 gram 17 g PO BID 03/06/23 03/06/23 oral powder packet (Miralax) sennosides 8.6 mg tablet (senna) 17.2 mg PO BID 03/06/23 03/06/23 sodium chloride 0.65 % nasal spray 2 spray intranasal QID 03/06/23 03/06/23 aerosol (Saline Nasal) tamsulosin 0.4 mg capsule 0.8 mg PO QAM 03/06/23 03/06/23 umeclidinium 62.5 mcg-vilanterol 1 ea inhalation QAM 03/06/23 03/06/23 25 mcg/actuation powdr for inhalation (Anoro Ellipta) Results & Data (ED) Vital Signs Vital Signs - 24 hr 03/06/23 16:21 03/06/23 18:54 03/06/23 19:40 Temperature 37.0 C Temperature Source Temporal Artery Scan Pulse Rate 79 83 Pulse Rate from SpO2 Sensor Respiratory Rate 18 Respiratory Effort / Characteristics Non-Labored Respiratory Depth Normal Blood Pressure 138/98 Blood Pressure Mean 111 Pulse Oximetry 93 90 Oxygen Delivery Method Room Air Room Air Oxygen Flow Rate 0 Sepsis Recent Fever Within 48 Hours No Sepsis New/Unexplained Change in Mental Status No Sepsis Action Taken by Nursing No Action Required 03/06/23 19:40 03/06/23 18:55 03/06/23 18:56 Temperature Temperature Source Pulse Rate 81 76 Pulse Rate from SpO2 Sensor Respiratory Rate 16 17 Respiratory Effort / Characteristics Respiratory Depth Blood Pressure Blood Pressure Mean Pulse Oximetry 90 Oxygen Delivery Method Room Air Oxygen Flow Rate Sepsis Recent Fever Within 48 Hours Sepsis New/Unexplained Change in Mental Status Sepsis Action Taken by Nursing 03/06/23 18:56 03/06/23 19:00 03/06/23 19:01 Temperature Temperature Source Pulse Rate 64 64 Pulse Rate from SpO2 Sensor Respiratory Rate 16 14 Respiratory Effort / Characteristics Respiratory Depth Blood Pressure 147/82 H Blood Pressure Mean 105 Pulse Oximetry Oxygen Delivery Method Oxygen Flow Rate Sepsis Recent Fever Within 48 Hours Sepsis New/Unexplained Change in Mental Status Sepsis Action Taken by Nursing 03/06/23 19:01 03/06/23 19:10 03/06/23 19:20 Temperature Temperature Source Pulse Rate 61 62 Pulse Rate from SpO2 Sensor 60 62 Respiratory Rate 17 24 Respiratory Effort / Characteristics Respiratory Depth Blood Pressure 178/93 H Blood Pressure Mean 115 Pulse Oximetry 98 91 Oxygen Delivery Method Oxygen Flow Rate Sepsis Recent Fever Within 48 Hours Sepsis New/Unexplained Change in Mental Status Sepsis Action Taken by Nursing 03/06/23 19:30 03/06/23 19:30 03/06/23 19:40 Temperature Temperature Source Pulse Rate 67 62 Pulse Rate from SpO2 Sensor 65 63 Respiratory Rate 14 15 Respiratory Effort / Characteristics Respiratory Depth Blood Pressure 179/104 H Blood Pressure Mean 134 Pulse Oximetry 90 91 Oxygen Delivery Method Oxygen Flow Rate Sepsis Recent Fever Within 48 Hours Sepsis New/Unexplained Change in Mental Status Sepsis Action Taken by Skilled Nursing Medications Current Medication List: was personally reviewed by [place] Laboratory Data Attestation: I reviewed the patient's lab results. 03/06/23 17:35 03/06/23 17:35 Lab Results 03/06/23 03/06/23 03/06/23 Range/Units 17:35 17:35 17:35 WBC 6.61 (4.8-10.8) K/ul RBC 4.23 L (4.70-6.10) M/uL Hgb 12.8 L (14.0-18.0) g/dl Hct 39.0 L (42.0-52.0) % MCV 92.2 (80.0-100.0) fL MCH 30.3 (25.0-34.0) pg MCHC 32.8 (32.0-36.0) g/dL RDW Std Deviation 50.8 H (36.4-46.3) fL RDW Coeff of Jarrett 15.2 H (11.5-14.5) % Plt Count 244 (130-400) K/uL MPV 10.5 (9.4-12.4) fL Immature Gran % (Auto) 0.2 % Neut % (Auto) 61.3 % Lymph % (Auto) 24.2 % [place] % (Auto) 10.7 % Eos % (Auto) 3.0 % Baso % (Auto) 0.6 % Neut # (Auto) 4.05 (1.40-6.50) K/uL Lymph # (Auto) 1.60 (1.20-3.40) K/uL [place] # (Auto) 0.71 H (0.11-0.59) K/uL Eos # (Auto) 0.20 (0.00-0.50) K/uL Baso # (Auto) 0.04 (0.00-0.20) K/uL Immature Gran # (Auto) 0.01 (0.01-0.20) K/uL PT 11.0 (9.0-12.0) Seconds INR 1.0 (0.9-1.1) APTT 24.4 (21.0-31.0) Seconds PTT Ratio 0.9 Sodium 137 (136-145) mmol/L Potassium TNP Chloride 106 (98-107) mmol/L Carbon Dioxide 25 (21-32) mmol/L Anion Gap 6 (3-11) BUN 13 (6-23) mg/dl Creatinine 1.10 (0.6-1.4) mg/dl Est Cr Clr Drug Dosing Not Reportable Est GFR ( Amer) 74.7 ml/min Est GFR (Non-Af Amer) 64.4 ml/min BUN/Creatinine Ratio 11.8 (10-20) Glucose 90 (70-99(Fasting)) mg/dl Calcium 9.5 (8.6-10.3) mg/dl Total Bilirubin 0.5 (0.2-1.0) mg/dl AST TNP ALT 11 (7-52) U/L Alkaline Phosphatase 119 H (34-104) U/L Troponin I High Sens 15.3 (0-20) pg/ml Total Protein 7.7 (6.0-8.3) gm/dl Albumin 4.1 (3.4-5.0) gm/dl Globulin 3.6 (2.5-4.0) gm/dl Albumin/Globulin Ratio 1.1 (0.9-2) Lipase 12 (11-82) U/L Administered Medications Albuterol (Albuterol Hfa 8 Gm Inhaler) 2 puffs INH Q4 PRN PRN Reason: Shortness Of Breath Or Wheezing Stop: 04/05/23 22:43 Last Admin: 03/06/23 23:56 Dose: 2 puffs Documented By: WENDI Amitriptyline HCl (Amitriptyline Hcl 50 Mg Tab) 50 mg PO HS FELIX Stop: 04/05/23 22:43 Last Admin: 03/06/23 23:57 Dose: 50 mg Documented By: WENDI Docusate Sodium (Docusate Sodium 100 Mg Cap) 100 mg PO BID FELIX Stop: 04/05/23 22:43 Last Admin: 03/06/23 23:59 Dose: Not Given Documented By: WENDI Duloxetine HCl (Duloxetine Hcl 30 Mg Cap) 30 mg PO QPM FELIX Stop: 04/05/23 22:43 Last Admin: 03/06/23 23:59 Dose: 30 mg Documented By: WENDI Duloxetine HCl (Duloxetine Hcl 60 Mg Cap) 60 mg PO QPM FELIX Stop: 04/05/23 22:43 Last Admin: 03/06/23 23:58 Dose: 60 mg Documented By: WENDI Fluticasone Propionate (Fluticasone Propionate Na Spr 16 Gm Btl) 2 sprays JOSÉ MIGUEL DAILY FELIX Stop: 04/06/23 08:59 Last Admin: 03/06/23 23:59 Dose: 2 sprays Documented By: WENDI Gabapentin (Gabapentin 300 Mg Cap) 300 mg PO TID@0900,1200,2100 FELIX Stop: 04/05/23 22:43 Last Admin: 03/06/23 23:59 Dose: 300 mg Documented By: WENDI Sodium Chloride (Nss) 1,000 mls @ 75 mls/hr IV .[id number] FELIX Stop: 03/07/23 12:03 Last Admin: 03/07/23 00:00 Dose: 75 mls/hr Documented By: WENDI Polyethylene Glycol (Polyethylene (Miralax) 17 Gm Pack) 17 gm PO BID FELIX Stop: 04/05/23 22:43 Last Admin: 03/06/23 23:59 Dose: Not Given Documented By: WENDI Sennosides (Senna 8.6 Mg Tab) 17.2 mg PO BID FELIX Stop: 04/05/23 22:43 Last Admin: 03/07/23 00:00 Dose: Not Given Documented By: WENDI Sodium Chloride (Sodium Chloride 0.65% Na Soln 45 Ml ([place])) 2 sprays NA QID S CH Stop: 04/05/23 22:43 Last Admin: 03/07/23 00:00 Dose: 2 sprays Documented By: WENDI Vitamin D (Cholecalciferol 1,000 Units 25 Mcg Tab) 1,000 units PO BID FELIX Stop: 04/05/23 22:43 Last Admin: 03/06/23 23:58 Dose: 1,000 units Documented By: WENDI Discontinued Medications Albuterol (Albut/Ipratrop 3mg/0.5mg Neb 3 Ml Vial) 3 ml NEB NOW STA; Protocol Stop: 03/06/23 16:24 Last Admin: 03/06/23 19:05 Dose: 3 ml Documented By: MICHAELA Albuterol (Albut/Ipratrop 3mg/0.5mg Neb 3 Ml Vial) Confirm Administered Dose 3 ml .ROUTE .STK-MED ONE Stop: 03/06/23 19:03 Last Admin: 03/06/23 19:05 Dose: Not Given Documented By: MICHAELA Albuterol (Albut/Ipratrop 3mg/0.5mg Neb 3 Ml Vial) Confirm Administered Dose 3 ml .ROUTE .STK-MED ONE Stop: 03/07/23 01:50 Last Admin: 03/07/23 02:15 Dose: 3 ml Documented By: WENDI Doxycycline Hyclate (Doxycycline Hyclate 100 Mg Cap) 100 mg PO NOW STA Stop: 03/06/23 19:22 Last Admin: 03/06/23 19:49 Dose: 100 mg Documented By: MICHAELA Magnesium Sulfate/Dextrose (Magnesium Sulfate / D5w) 1 gm in 100 mls @ 100 mls/hr IV Q1H FELIX Stop: 03/06/23 21:29 Last Infusion: 03/06/23 22:28 Dose: 0 mls/hr Documented By: Admin: 03/06/23 21:29 Dose: 100 mls/hr Documented By: Infusion: 03/06/23 21:29 Dose: 0 mls/hr Documented By: Admin: 03/06/23 19:49 Dose: 100 mls/hr Documented By: MICHAELA Methylprednisolone (Methylprednisolone 125 Mg/2 Ml Vial) 125 mg IV NOW STA Stop: 03/06/23 19:22 Last Admin: 03/06/23 19:49 Dose: 125 mg Documented By: MICHAELA Miscellaneous (Patient's Height &/Or Weight Needed) 1 each N/A NOW STA Stop: 03/06/23 23:25 Last Admin: 03/07/23 00:37 Dose: 1 each Documented By: WENDI Imaging Data Radiologist's Impression: Chest X-Ray 03/06/23 16:23 XR chest 1V not portable CLINICAL HISTORY: Chest pain, cough COMPARISON STUDY: Chest radiograph October 25, 2022. Chest CT February 24, 2020. FINDINGS: Left subclavian pacer is in place. There are cholecystectomy clips. Intracanalicular electrodes are incidentally noted. Cardiomegaly is unchanged. There is no evidence for pulmonary edema. There is no pneumothorax or pleural effusion. There is no consolidation to suggest pneumonia. The appearance of the chest is unchanged. IMPRESSION: No acute cardiopulmonary findings. No change in appearance of the chest. ACT 112: Negative or not required by law. Electronically signed by: Boyd Chandler M.D. 03/06/2023 5:08 PM Discharge Plan Visit Data Chief Complaint: Shortness of Breath/Dyspnea Stated Complaint: SOB, COUGH ED Provider: Nicolás Ruavlcaba Discharge Problem: Acute exacerbation of chronic obstructive pulmonary disease, Anemia Discharge Instructions Interventions: ED Discharge Assessment Last Done: 03/06/23 22:47
[2023-03-06] MEDS ORDERED: ALBUT/IPRATROP 3MG/0.5MG NEB 3 ML VIAL ONE (19:02)
[2023-03-06 19:13] LABS: Adenovirus PCR Not Detected (NotDetected); Bordetella parapertussis PCR Not Detected (NotDetected); Bordetella pertussis PCR Not Detected (NotDetected); Chlamydia pneumoniae PCR Not Detected (NotDetected); Coronavirus 229E PCR Not Detected (NotDetected); Coronavirus CoV-2 (COVID19)PCR Not Detected (NotDetected); Coronavirus HKU1 PCR Not Detected (NotDetected); Coronavirus NL63 PCR Not Detected (NotDetected); Coronavirus OC43PCR Not Detected (NotDetected); Human Metapneumovirus PCR Not Detected (NotDetected); Influenza A PCR Not Detected (NotDetected); Influenza B PCR Not Detected (NotDetected); Mycoplasma pneumoniae PCR Not Detected (NotDetected); Parainfluenza Virus 1 PCR Not Detected (NotDetected); Parainfluenza Virus 2 PCR Not Detected (NotDetected); Parainfluenza Virus 3 PCR Not Detected (NotDetected); Parainfluenza Virus 4 PCR Not Detected (NotDetected); Respiratory Syncytial VirusPCR Not Detected (NotDetected)
[2023-03-06 19:16] LABS: Rhinovirus/Enterovirus PCR DETECTED (NotDetected)
[2023-03-06] MEDS ORDERED: DOXYCYCLINE HYCLATE 100 MG CAP PO STA (19:21)
[2023-03-06] MEDS ORDERED: methylPREDNISolone 125 MG/2 ML VIAL IV STA (19:21)
[2023-03-06] MEDS: MAGNESIUM SULFATE / D5W 1 GM/100 ML BAG IV SCH ×2 (19:49→21:29)
--- NOTE | 2023-03-06 20:42 | History & Physical Report ---
Date of Service March 06, 2023 Assessment & Plan (1) COPD exacerbation: Plan: 78-year-old male with past med significant for hyperlipidemia, hypothyroidism, bronchiectasis, granulomatous lung disease, COPD, nonallergic rhinitis, moderate persistent asthma without complication, dyspnea on exertion, sinus node dysfunction s/p pacemaker, history of angina, history of CAD, diastolic dysfunction, history of SVT, GERD, BPH, urge incontinence, restless legs, chron ic back pain, depression presents with ongoing shortness of breath and cough. 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 steroids and doxycycline in the ER We will continue with DuoNebs QID and prn, p.o. doxycycline and IV Solu-Medrol Continue home inhalers med /telemetry Chest discomfort Mostly from the above. Follow serial cardiac enzymes and repeat EKG History of depression continue home medications History of CAD On Beta-kassie statin and Plavix History of SVT On beta-kassie History of sinus node dysfunction s/p pacemaker History of chronic diastolic dysfunction will monitor HTN on Toprol xl and losartan will monitor. BPH on Flomax and Proscar. dvt px Lovenox full code med/tele History of Present Illness Chief Complaint: Shortness of breath Primary Care Provider: Guera Escudero MD 78-year-old male with past med significant for hyperlipidemia, hypothyroidism, bronchiectasis, granulomatous lung disease, COPD, nonallergic rhinitis, moderate persistent asthma without complication, dyspnea on exertion, sinus node dysfunction s/p pacemaker, history of angina, history of CAD, diastolic dysfunction, history of SVT, GERD, BPH, urge incontinence, restless legs, chronic back pain, depression presents with ongoing shortness of breath and cough. Patient says last 5 days he is having congested symptoms with cough and last 2 days progressively getting short of breath. 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 Denies any fevers. Has mild chest discomfort 2/10 in severity and the pain is more when he is coughing. Denies any headaches. No neck pain. Has chronic back pain. He has a left hip fracture in September and following with Elaine and Says he still has a pain in the hip. No nausea or vomiting. Eating and drinking okay. Normal bowel and bladder movements. Current resting comfortably hemodynamically stable. Past medical history as mentioned above Past surgical history left total knee arthroplasty, bronchoscopy with biopsy, cardiac cath with angioplasty, colonoscopy, coronary artery dilatation, EGD, left femur fracture repair, flexible sigmoidoscopy, knee arthroscopy, laparoscopic cholecystectomy, s/p pacemaker, revision of total hip joint surgery in 1994 and 2006 sacroiliac joint injection. Left total hip replacement in 1986. Social history . Quit smoking 1971. Alcohol occasional. No drug use. Family history mother had asthma, diabetes, kidney stones, CHF and at age of 96. Brother heart disease. Allergies Allergy/AdvReac Type Severity Reaction Status Date / Time adhesive Allergy Unknown GOODE SKIN Verified 03/06/23 20:08 No Known Drug Allergies Allergy Unknown . Verified 03/06/23 20:08 latex Allergy Unknown Verified 03/06/23 20:08 Home Medications Medication Instructions Recorded Confirmed Type acetaminophen 500 mg tablet 1,000 mg PO TID PRN Pain 03/06/23 03/06/23 History (Tylenol Extra Strength) albuterol sulfate 2.5 mg/3 mL 2.5 mg continuous nebulization Q6 03/06/23 03/06/23 History (0.083 %) solution for nebulization PRN Shortness Of Breath Or Wheezing albuterol sulfate 90 mcg/actuation 2 puff inhalation Q4 PRN Shortness 03/06/23 03/06/23 History aerosol inhaler Of Breath Or Wheezing amitriptyline 25 mg tablet 50 mg PO HS 03/06/23 03/06/23 History atorvastatin 80 mg tablet 80 mg PO DAILY 03/06/23 03/06/23 History cholecalciferol (vitamin D3) 25 25 mcg PO BID 03/06/23 03/06/23 History mcg (1,000 unit) tablet (Vitamin D3) clopidogrel 75 mg tablet 75 mg PO QAM 03/06/23 03/06/23 History dextran 70-hypromellose 0.1 %-0.3 1 drp ophthalmic (eye) QID PRN Dry 03/06/23 03/06/23 History % eye drops Eyes docusate sodium 100 mg tablet 100 mg PO BID 03/06/23 03/06/23 History duloxetine 30 mg capsule,delayed 30 mg PO QPM 03/06/23 03/06/23 History release duloxetine 60 mg capsule,delayed 60 mg PO QPM 03/06/23 03/06/23 History release finasteride 5 mg tablet 5 mg PO DAILY 03/06/23 03/06/23 History fluticasone 250 mcg-salmeterol 50 1 inh inhalation BID 03/06/23 03/06/23 History mcg/dose blistr powdr for inhalation fluticasone propionate 50 2 spray intranasal DAILY 03/06/23 03/06/23 History mcg/actuation nasal spray,suspension (Flonase Allergy Relief) gabapentin 300 mg capsule 300 mg PO TID 03/06/23 03/06/23 History levothyroxine 75 mcg tablet 75 mcg PO DAILY 03/06/23 03/06/23 History lidocaine 4 % topical patch 1 patch topical Q12 03/06/23 03/06/23 History losartan 50 mg tablet 50 mg PO DAILY 03/06/23 03/06/23 History metoprolol succinate 25 mg 37.5 mg PO DAILY 03/06/23 03/06/23 History tablet,extended release 24 hr nitroglycerin 0.4 mg sublingual 0.4 mg sublingual DIRECTED PRN 03/06/23 03/06/23 History tablet Chest Pain pantoprazole 40 mg tablet,delayed 40 mg PO DAILY 03/06/23 03/06/23 History release polyethylene glycol 3350 17 gram 17 g PO BID 03/06/23 03/06/23 History oral powder packet (Miralax) sennosides 8.6 mg tablet (senna) 17.2 mg PO BID 03/06/23 03/06/23 History sodium chloride 0.65 % nasal spray 2 spray intranasal QID 03/06/23 03/06/23 History aerosol (Saline Nasal) tamsulosin 0.4 mg capsule 0.8 mg PO QAM 03/06/23 03/06/23 History umeclidinium 62.5 mcg-vilanterol 1 ea inhalation QAM 03/06/23 03/06/23 History 25 mcg/actuation powdr for inhalation (Anoro Ellipta) Past Med/Surg History Medical History (Updated 03/07/23 @ 02:23 by Nicolás Ruvalcaba MD) BPH (benign prostatic hyperplasia) Carotid stenosis Cervical radiculopathy Chronic anticoagulation Chronic hip pain after total replacement of right hip joint Chronic right SI joint pain COPD (chronic obstructive pulmonary disease) Depression Diastolic dysfunction DVT (deep venous thrombosis) (01/29/14) Emphysema of lung Exertional shortness of breath Fingertip amputation History of left heart catheterization (LHC) HLD (hyperlipidemia) HTN (hypertension) Hypothyroidism Intercostal neuralgia Left shoulder pain Lumbar post-laminectomy syndrome Lung infiltrate Myofascial pain Neuritis of left ulnar nerve 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 Osteoarthritis of left knee Pacemaker Post-thoracotomy pain syndrome RLS (restless legs syndrome) Spinal cord stimulator status SSS (sick sinus syndrome) Symptomatic bradycardia Surgical History H/O knee surgery History of hip surgery History of total knee arthroplasty Hx of cholecystectomy Status post insertion of spinal cord stimulator Family History Mother Heart disease Social History (Updated 03/06/23 @ 18:53 by Nicolás Ruvalcaba MD) Smoking Status: Never smoker Tobacco Type: Cigarettes Hx Alcohol Use: No Hx Substance Use: No Preferred Language: German Communication Ability: Impaired Ripper Operator Required: No Beliefs That Will Affect Care: None marital status: Current Living Situation: Spouse Current Living Situation Comment: home with current occupational status: disabled Other Information That Helps Us Care for You: No Feels Safe at Home: Yes Safety Concerns: Feels Safe At This Time Assistive Devices: Cane and Oxygen - Continuous Review of Systems Review of Systems: All systems reviewed & are unremarkable except as noted in HPI & below Physical Exam Physical Exam: General- Not in distress Head- atraumatic Eyes- EOMI, anicteric ENT- oropharynx clear Neck- supple, no JVD, no adenopathy, carotids +2/2, no bruits appreciated Lungs- clear to auscultation, bilateral wheezing and rhonchi. Heart- regular rhythm; no murmur, no gallop, Abdomen- normal bowel sounds, soft, nontender, no distension. Extremities- no pretibial edema, no erythema seen. Neuro- alert, oriented x 3; EOMI; no facial palsy; no dysarthria;non focal. Skin- warm & dry Results & Data Results & Data Vital Signs (Past 12 Hours) Vital Signs Temp Pulse Resp BP Pulse Ox O2 Del Method O2 Flow Rate 03/06/23 19:40 62 15 91 03/06/23 19:30 67 14 90 03/06/23 19:30 179/104 H 03/06/23 19:20 62 24 91 03/06/23 19:10 61 17 98 03/06/23 19:01 178/93 H 03/06/23 19:01 64 14 03/06/23 19:00 64 16 03/06/23 18:56 147/82 H 03/06/23 18:56 76 17 03/06/23 18:55 81 16 03/06/23 19:40 90 Room Air 03/06/23 19:40 90 Room Air 0 03/06/23 18:54 83 03/06/23 16:21 37.0 C 79 18 138/98 93 Room Air Diagnostic Findings Laboratory Results WBC 6.61 K/ul (4.8-10.8) 03/06/23 17:35 RBC 4.23 M/uL (4.70-6.10) L 03/06/23 17:35 Hgb 12.8 g/dl (14.0-18.0) L 03/06/23 17:35 Hct 39.0 % (42.0-52.0) L 03/06/23 17:35 MCV 92.2 fL (80.0-100.0) 03/06/23 17:35 MCH 30.3 pg (25.0-34.0) 03/06/23 17:35 MCHC 32.8 g/dL (32.0-36.0) 03/06/23 17:35 RDW Std Deviation 50.8 fL (36.4-46.3) H 03/06/23 17:35 RDW Coeff of Jarrett 15.2 % (11.5-14.5) H 03/06/23 17:35 Plt Count 244 K/uL (130-400) 03/06/23 17:35 MPV 10.5 fL (9.4-12.4) 03/06/23 17:35 Immature Gran % (Auto) 0.2 % 03/06/23 17:35 Neut % (Auto) 61.3 % 03/06/23 17:35 Lymph % (Auto) 24.2 % 03/06/23 17:35 Beltrami % (Auto) 10.7 % 03/06/23 17:35 Eos % (Auto) 3.0 % 03/06/23 17:35 Baso % (Auto) 0.6 % 03/06/23 17:35 Neut # (Auto) 4.05 K/uL (1.40-6.50) 03/06/23 17:35 Lymph # (Auto) 1.60 K/uL (1.20-3.40) 03/06/23 17:35 Beltrami # (Auto) 0.71 K/uL (0.11-0.59) H 03/06/23 17:35 Eos # (Auto) 0.20 K/uL (0.00-0.50) 03/06/23 17:35 Baso # (Auto) 0.04 K/uL (0.00-0.20) 03/06/23 17:35 Immature Gran # (Auto) 0.01 K/uL (0.01-0.20) 03/06/23 17:35 PT 11.0 Seconds (9.0-12.0) 03/06/23 17:35 INR 1.0 (0.9-1.1) 03/06/23 17:35 APTT 24.4 Seconds (21.0-31.0) 03/06/23 17:35 PTT Ratio 0.9 03/06/23 17:35 Sodium 137 mmol/L (136-145) 03/06/23 17:35 Potassium TNP 03/06/23 17:35 Chloride 106 mmol/L (98-107) 03/06/23 17:35 Carbon Dioxide 25 mmol/L (21-32) 03/06/23 17:35 Anion Gap 6 (3-11) 03/06/23 17:35 BUN 13 mg/dl (6-23) 03/06/23 17:35 Creatinine 1.10 mg/dl (0.6-1.4) 03/06/23 17:35 Est Cr Clr Drug Dosing Not Reportable 03/06/23 17:35 Est GFR ( Amer) 74.7 ml/min 03/06/23 17:35 Est GFR (Non-Af Amer) 64.4 ml/min 03/06/23 17:35 BUN/Creatinine Ratio 11.8 (10-20) 03/06/23 17:35 Glucose 90 mg/dl (70-99(Fasting)) 03/06/23 17:35 Calcium 9.5 mg/dl (8.6-10.3) 03/06/23 17:35 Total Bilirubin 0.5 mg/dl (0.2-1.0) 03/06/23 17:35 AST TNP 03/06/23 17:35 ALT 11 U/L (7-52) 03/06/23 17:35 Alkaline Phosphatase 119 U/L (34-104) H 03/06/23 17:35 Total Protein 7.7 gm/dl (6.0-8.3) 03/06/23 17:35 Albumin 4.1 gm/dl (3.4-5.0) 03/06/23 17:35 Globulin 3.6 gm/dl (2.5-4.0) 03/06/23 17:35 Albumin/Globulin Ratio 1.1 (0.9-2) 03/06/23 17:35 Lipase 12 U/L (11-82) 03/06/23 17:35 Adenovirus (PCR) Not Detected (NotDetected) 03/06/23 Unknown B. pertussis DNA (PCR) Not Detected (NotDetected) 03/06/23 Unknown B.parapertussis DNA PCR Not Detected (NotDetected) 03/06/23 Unknown C. pneumoniae DNA (PCR) Not Detected (NotDetected) 03/06/23 Unknown Coronavirus OC43 (PCR) Not Detected (NotDetected) 03/06/23 Unknown Coronavirus HKU1 (PCR) Not Detected (NotDetected) 03/06/23 Unknown Coronavirus 229E (PCR) Not Detected (NotDetected) 03/06/23 Unknown SARS-CoV-2 (PCR) Not Detected (NotDetected) 03/06/23 Unknown Coronavirus NL63 (PCR) Not Detected (NotDetected) 03/06/23 Unknown Human Metapneumovir PCR Not Detected (NotDetected) 03/06/23 Unknown Influenza Type A (PCR) Not Detected (NotDetected) 03/06/23 Unknown Influenza Type B (PCR) Not Detected (NotDetected) 03/06/23 Unknown M. pneumoniae (PCR) Not Detected (NotDetected) 03/06/23 Unknown Parainfluenza 1 (PCR) Not Detected (NotDetected) 03/06/23 Unknown Parainfluenza 2 (PCR) Not Detected (NotDetected) 03/06/23 Unknown Parainfluenza 3 (PCR) Not Detected (NotDetected) 03/06/23 Unknown Parainfluenza 4 (PCR) Not Detected (NotDetected) 03/06/23 Unknown RSV (PCR) Not Detected (NotDetected) 03/06/23 Unknown Entero/Rhino (PCR) DETECTED (NotDetected) A* 03/06/23 Unknown Impressions Chest X-Ray 03/06/23 16:23 XR chest 1V not portable CLINICAL HISTORY: Chest pain, cough COMPARISON STUDY: Chest radiograph October 25, 2022. Chest CT February 24, 2020. FINDINGS: Left subclavian pacer is in place. There are cholecystectomy clips. Intracanalicular electrodes are incidentally noted. Cardiomegaly is unchanged. There is no evidence for pulmonary edema. There is no pneumothorax or pleural effusion. There is no consolidation to suggest pneumonia. The appearance of the chest is unchanged. IMPRESSION: No acute cardiopulmonary findings. No change in appearance of the chest. ACT 112: Negative or not required by law. Electronically signed by: Boyd Chandler M.D. 03/06/2023 5:08 PM ECG Additional Comments: ECG atrial paced rhythm rate of 65. T wave inversions lateral leads Code Status & VTE Plan VTE Prophylaxis Plan VTE Prophylaxis will be ordered: Yes
[2023-03-06 20:54] LABS: Potassium 3.5 mmol/L (3.5-5.1)
[2023-03-06 22:37] LABS: Troponin I High Sensitivity 15.3 pg/ml (0-20)
[2023-03-06] MEDS ORDERED: POLYETHYLENE (MIRALAX) 17 GM PACK PO PRN (22:44)
[2023-03-06] MEDS ORDERED: NITROGLYCERIN SL 0.4 MG/TAB TAB SL PRN (22:44)
[2023-03-06] MEDS ORDERED: NON-FORMULARY MEDICATION (Lidocaine 4 % adhesive patch,medicated) TOP SCH (22:44)
[2023-03-06] MEDS ORDERED: SODIUM CHLORIDE 0.9% 1,000 ML IV SCH (22:44)
[2023-03-06] MEDS ORDERED: Patient's HEIGHT &/or WEIGHT Needed STA (23:24)
[2023-03-06] MEDS ORDERED: ARTIFICIAL TEARS OP PRN (23:26)
[2023-03-06 23:49] LABS: Appearance Urine Clear (Clear); Bilirubin Urine Negative (Negative); Blood Urine Negative (Negative); Color Urine Yellow; Glucose Urine UA Negative (Negative); Ketones Urine Negative (Negative); Leukocyte Esterase Urine Negative (Negative); Nitrite Urine Negative (Negative); Protein Urine Negative (Negative); Specific Gravity Urine 1.011 (1.000-1.030); Urobilinogen Urine Negative (Negative); pH Urine 6.5 (4.5-7.5)
[2023-03-06] MEDS: ALBUTEROL HFA 8 GM INHALER INH PRN (23:56)
[2023-03-06] MEDS: AMITRIPTYLINE HCL 50 MG TAB PO SCH (23:57)
[2023-03-06] MEDS: CHOLECALCIFEROL 1,000 UNITS 25 MCG TAB PO SCH (23:58)
[2023-03-06] MEDS: DULoxetine HCL 60 MG CAP PO SCH (23:58)
[2023-03-06] MEDS: GABAPENTIN 300 MG CAP PO SCH (23:59)
[2023-03-06] MEDS: FLUTICASONE PROPIONATE NA SPR 16 GM BTL NAE SCH (23:59)
[2023-03-06] MEDS: DULoxetine HCL 30 MG CAP PO SCH (23:59)
[2023-03-06] MEDS: DOCUSATE SODIUM 100 MG CAP PO SCH (23:59)
[2023-03-06] MEDS: POLYETHYLENE (MIRALAX) 17 GM PACK PO SCH (23:59)
[2023-03-07] MEDS ORDERED: ALBUT/IPRATROP 3MG/0.5MG NEB 3 ML VIAL NEB PRN (01:41)
[2023-03-07] MEDS ORDERED: ALBUT/IPRATROP 3MG/0.5MG NEB 3 ML VIAL ONE (01:49)
[2023-03-07] MEDS: methylPREDNISolone 40 MG in SYRINGE 0 ML IV SCH ×3 (03:58→20:32)
[2023-03-07 05:15] LABS: Basophils # (auto) 0.01 K/uL (0.00-0.20); Basophils % (auto) 0.2 %; Hemoglobin 11.7 g/dl (14.0-18.0); Lymphocytes # (auto) 0.46 K/uL (1.20-3.40); Lymphocytes % (auto) 10.4 %; Mean Corpuscular Hemoglobin 30.5 pg (25.0-34.0); Mean Corpuscular Hgb Conc 33.4 g/dL (32.0-36.0); Mean Corpuscular Volume 91.1 fL (80.0-100.0); Mean Platelet Volume 10.7 fL (9.4-12.4); Monocytes # (auto) 0.04 K/uL (0.11-0.59); Monocytes % (auto) 0.9 %; Neutrophils # (auto) 3.93 K/uL (1.40-6.50); Neutrophils % (auto) 88.5 %; Platelet Count 211 K/uL (130-400); RDW Standard Deviation 49.9 fL (36.4-46.3); Red Blood Count 3.84 M/uL (4.70-6.10); White Blood Count 4.44 K/ul (4.8-10.8)
[2023-03-07 05:31] LABS: BUN Creatinine Ratio 12.1 (10-20); Calcium 9.1 mg/dl (8.6-10.3); Creatinine Clr Calc Pharmacy 59.7 ml/min; Est GFR (African American) 77.2 ml/min; Est GFR (Non-African American) 66.6 ml/min; Magnesium 2.4 mg/dl (1.7-2.4); Potassium 3.6 mmol/L (3.5-5.1)
[2023-03-07 05:37] LABS: Troponin I High Sensitivity 12.6 pg/ml (0-20)
[2023-03-07] MEDS: LEVOTHYROXINE SODIUM 75 MCG TABLET PO SCH (07:13)
[2023-03-07] MEDS: ALBUT/IPRATROP 3MG/0.5MG NEB 3 ML VIAL NEB SCH ×4 (07:30→19:36)
[2023-03-07] MEDS: GABAPENTIN 300 MG CAP PO SCH ×3 (08:22→20:32)
[2023-03-07] MEDS: SENNA 8.6 MG TAB PO SCH ×2 (08:22)
[2023-03-07] MEDS: DOCUSATE SODIUM 100 MG CAP PO SCH (08:22)
[2023-03-07] MEDS: FLUTICASONE/VILANTEROL 200/25MCG 14 PUFFS/INHALER INH SCH (08:22)
[2023-03-07] MEDS: CHOLECALCIFEROL 1,000 UNITS 25 MCG TAB PO SCH ×2 (08:22→20:31)
[2023-03-07] MEDS: POLYETHYLENE (MIRALAX) 17 GM PACK PO SCH (08:23)
[2023-03-07] MEDS: PANTOprazole 40 MG TAB PO SCH (08:45)
[2023-03-07] MEDS: FINASTERIDE 5 MG TAB PO SCH (08:45)
[2023-03-07] MEDS: ENOXAPARIN INJ 40 MG/0.4 ML SYR SQ SCH (08:45)
[2023-03-07] MEDS: LOSARTAN POTASSIUM 50 MG TAB PO SCH (08:45)
[2023-03-07] MEDS: UMECLIDINIUM/VILANTEROL 62.5/25MCG 7 PUFFS/INHALER INH SCH (08:45)
[2023-03-07] MEDS: METOPROLOL SUCC 25MG EXT REL TAB PO SCH (08:46)
[2023-03-07] MEDS: LIDOCAINE 5% 1 PATCH TD SCH (08:46)
[2023-03-07] MEDS: DOXYCYCLINE HYCLATE 100 MG CAP PO SCH ×2 (08:46→20:32)
[2023-03-07] MEDS: CLOPIDOGREL BISULFATE 75 MG TAB PO SCH (08:46)
[2023-03-07] MEDS: ATORVASTATIN 40 MG TAB PO SCH (08:46)
[2023-03-07] MEDS: TAMSULOSIN HCL 0.4 MG CAP PO SCH (08:46)
[2023-03-07] MEDS: SODIUM CHLORIDE 0.65% NA SOLN 45 ML (OCEAN) SCH ×5 (08:47→20:38)
--- NOTE | 2023-03-07 12:57 | Electrocardiogram Report ---
Test Reason : Blood Pressure : / mmHG Vent. Rate : 065 BPM Atrial Rate : 065 BPM P-R Int : 172 ms QRS Dur : 092 ms QT Int : 420 ms P-R-T Axes : 057 007 149 degrees QTc Int : 436 ms Atrial-paced rhythm Anterior infarct (cited on or before 26-OCT-2022) Left ventricular hypertrophy with repolarization abnormality Abnormal ECG When compared with ECG of 26-OCT-2022 11:34, T wave inversion more evident in Lateral leads Confirmed by Noe Vargas ([id number]) on 03/07/2023 12:57:14 PM Referred By: REFERRED SELF Confirmed By:Noe Vargas
--- NOTE | 2023-03-07 16:32 | Hospitalist Progress Note ---
Date of Service March 07, 2023 Assessment & Plan (1) COPD exacerbation: Plan: 78-year-old male with past med significant for hyperlipidemia, hypothyroidism, bronchiectasis, granulomatous lung disease, COPD, nonallergic rhinitis, moderate persistent asthma without complication, dyspnea on exertion, sinus node dysfunction s/p pacemaker, history of angina, history of CAD, diastolic dysfunction, history of SVT, GERD, BPH, urge incontinence, restless legs, chron ic back pain, depression presents with ongoing shortness of breath and cough. COPD exacerbation Enterovirus virus positive BioFire CXR showed no acute cardiopulmonary findings. No change in appearance of the chest. Continue prednisone 40mg IV q8h, doxycycline and neb treatment Continue home inhaler Continue oxygen supplement Will add flutter valve and incentive spirometry Continue monitor closely Chest discomfort Possible costochondritis Troponin x2 negative EKG showed no ischemic changes Continue statin and plavix Stable History of depression Continue home medications History of CAD On Beta-kassie statin and Plavix Chronic anemia Hgb stable History of SVT On beta-kassie History of sinus node dysfunction s/p pacemaker History of chronic diastolic dysfunction will monitor HTN on Toprol xl and losartan Continue monitor BPH Continue Flomax and Proscar. DVT px on Lovenox full code Admission and Anticipated Discharge Date Admission Date: March 06, 2023 Subjective Pt was seen and examined for follow up of SOB. Lying in bed with no acute distress Pt said that when he has a dry cough he said that he used oxygen with exertion at home He said that his breathing slightly improves Denies any chest pain, palpitation, dizziness and SOB Review of Systems Review of Systems: All systems reviewed & are unremarkable except as noted in Subjective Physical Exam Physical Exam: General- No acute distress Head- atraumatic Eyes- PERRL, EOMI, ENT- oropharynx clear Neck- supple, no JVD Lungs- + coarse BS Heart- regular rhythm; no murmur Abdomen- normal bowel sounds, soft, nontender Extremities- no calf tenderness Neuro- alert, oriented x 3; PERRL, EOMI; no facial palsy; no dysarthria Skin- warm & dry Results & Data Results & Data Vital Signs (Past 12 Hours) Vital Signs Temp Pulse Pulse Resp BP BP Pulse Ox 03/07/23 15:45 101 H 18 94 03/07/23 12:29 154/78 H 03/07/23 12:29 90 21 93 03/07/23 12:00 89 18 90 03/07/23 10:00 89 21 91 03/07/23 13:07 36.5 C 03/07/23 10:40 90 18 91 03/07/23 08:58 179/76 H 03/07/23 08:58 87 19 92 03/07/23 08:00 86 20 94 03/07/23 07:00 76 15 93 03/07/23 08:00 03/07/23 08:00 36.8 C 03/07/23 07:30 80 18 91 03/07/23 06:33 03/07/23 06:32 36.8 C 74 23 157/76 H 91 03/07/23 05:30 78 18 91 03/07/23 05:00 77 20 91 O2 Del Method O2 Flow Rate 03/07/23 15:45 Nasal Cannula 3 03/07/23 12:29 03/07/23 12:29 03/07/23 12:00 03/07/23 10:00 03/07/23 13:07 03/07/23 10:40 Nasal Cannula 4 03/07/23 08:58 03/07/23 08:58 Nasal Cannula 4 03/07/23 08:00 Nasal Cannula 5 03/07/23 07:00 03/07/23 08:00 Nasal Cannula 5 03/07/23 08:00 03/07/23 07:30 Nasal Cannula 5 03/07/23 06:33 Nasal Cannula 5 03/07/23 06:32 Nasal Cannula 5 03/07/23 05:30 03/07/23 05:00
[2023-03-07] MEDS: NAPHAZOLIN/PHENIRAMIN OPH SOLN 75 DROPS/5 ML BTL OP PRN (18:11)
[2023-03-07] MEDS: ACETAMINOPHEN 325 MG TAB PO PRN (20:29)
[2023-03-07] MEDS: DULoxetine HCL 60 MG CAP PO SCH (20:31)
[2023-03-07] MEDS: DULoxetine HCL 30 MG CAP PO SCH (20:32)
[2023-03-07] MEDS: AMITRIPTYLINE HCL 50 MG TAB PO SCH (20:32)
[2023-03-08] MEDS: DOCUSATE SODIUM 100 MG CAP PO SCH ×2 (02:35→10:05)
[2023-03-08] MEDS: POLYETHYLENE (MIRALAX) 17 GM PACK PO SCH ×2 (02:36→10:05)
[2023-03-08] MEDS: SENNA 8.6 MG TAB PO SCH ×2 (02:37→10:06)
[2023-03-08] MEDS: methylPREDNISolone 40 MG in SYRINGE 0 ML IV SCH ×3 (04:42→17:48)
[2023-03-08] MEDS: ALBUT/IPRATROP 3MG/0.5MG NEB 3 ML VIAL NEB SCH ×4 (07:20→18:10)
[2023-03-08] MEDS: FLUTICASONE PROPIONATE NA SPR 16 GM BTL NAE SCH (09:54)
[2023-03-08] MEDS: SODIUM CHLORIDE 0.65% NA SOLN 45 ML (OCEAN) SCH ×4 (09:55→20:31)
[2023-03-08] MEDS: ENOXAPARIN INJ 40 MG/0.4 ML SYR SQ SCH (09:55)
[2023-03-08] MEDS: LIDOCAINE 5% 1 PATCH TD SCH (09:58)
[2023-03-08] MEDS: FLUTICASONE/VILANTEROL 200/25MCG 14 PUFFS/INHALER INH SCH (10:01)
[2023-03-08] MEDS: UMECLIDINIUM/VILANTEROL 62.5/25MCG 7 PUFFS/INHALER INH SCH (10:01)
[2023-03-08] MEDS: FINASTERIDE 5 MG TAB PO SCH (10:02)
[2023-03-08] MEDS: ATORVASTATIN 40 MG TAB PO SCH (10:02)
[2023-03-08] MEDS: TAMSULOSIN HCL 0.4 MG CAP PO SCH (10:03)
[2023-03-08] MEDS: METOPROLOL SUCC 25MG EXT REL TAB PO SCH (10:03)
[2023-03-08] MEDS: LOSARTAN POTASSIUM 50 MG TAB PO SCH (10:03)
[2023-03-08] MEDS: CLOPIDOGREL BISULFATE 75 MG TAB PO SCH (10:03)
[2023-03-08] MEDS: DOXYCYCLINE HYCLATE 100 MG CAP PO SCH ×2 (10:04→20:28)
[2023-03-08] MEDS: PANTOprazole 40 MG TAB PO SCH (10:04)
[2023-03-08] MEDS: GABAPENTIN 300 MG CAP PO SCH ×3 (10:04→20:30)
[2023-03-08] MEDS: CHOLECALCIFEROL 1,000 UNITS 25 MCG TAB PO SCH ×2 (10:05→20:34)
[2023-03-08] MEDS: NAPHAZOLIN/PHENIRAMIN OPH SOLN 75 DROPS/5 ML BTL OP PRN ×2 (10:06→20:31)
[2023-03-08 10:22] LABS: BUN Creatinine Ratio 22.9 (10-20); Calcium 9.3 mg/dl (8.6-10.3); Creatinine Clr Calc Pharmacy 58.6 ml/min; Est GFR (African American) 75.5 ml/min; Est GFR (Non-African American) 65.1 ml/min; Potassium 4.4 mmol/L (3.5-5.1)
[2023-03-08 10:27] LABS: Hematocrit (blood only) 33.9 % (42.0-52.0); Mean Corpuscular Hemoglobin 30.7 pg (25.0-34.0); Mean Corpuscular Hgb Conc 32.4 g/dL (32.0-36.0); Mean Corpuscular Volume 94.7 fL (80.0-100.0); Mean Platelet Volume 10.5 fL (9.4-12.4); Platelet Count 219 K/uL (130-400); RDW Coefficient of Variation 15.7 % (11.5-14.5); RDW Standard Deviation 54.2 fL (36.4-46.3); Red Blood Count 3.58 M/uL (4.70-6.10); White Blood Count 10.78 K/ul (4.8-10.8)
[2023-03-08 11:04] LABS: Estimated Average Glucose 126 mg/dl
[2023-03-08] MEDS: LEVOTHYROXINE SODIUM 75 MCG TABLET PO SCH (11:15)
--- NOTE | 2023-03-08 16:19 | Hospitalist Progress Note ---
Date of Service March 08, 2023 Assessment & Plan (1) COPD exacerbation: Plan: 78-year-old male with past med significant for hyperlipidemia, hypothyroidism, bronchiectasis, granulomatous lung disease, COPD, nonallergic rhinitis, moderate persistent asthma without complication, dyspnea on exertion, sinus node dysfunction s/p pacemaker, history of angina, history of CAD, diastolic dysfunction, history of SVT, GERD, BPH, urge incontinence, restless legs, chron ic back pain, depression presents with ongoing shortness of breath and cough. COPD exacerbation Enterovirus virus positive BioFire CXR showed no acute cardiopulmonary findings. No change in appearance of the chest. will taper solumedrol to 40mg IV q12h Currently on doxycycline and neb treatment will check procalcitonin Continue home inhaler Continue oxygen supplement Will add flutter valve, guaifenesin and incentive spirometry Will add hypertonic saline x 2 days Continue monitor closely Chest discomfort Possible costochondritis Troponin x2 negative EKG showed no ischemic changes Continue statin and plavix Stable History of depression Continue home medications History of CAD On Beta-kassie statin and Plavix Chronic anemia Hgb stable History of SVT On beta-kassie History of sinus node dysfunction s/p pacemaker History of chronic diastolic dysfunction Pt has a positive balance greater than 2L Will give lasix 20mg x1 will monitor HTN on Toprol xl and losartan Continue monitor BPH Continue Flomax and Proscar. DVT px on Lovenox full code Admission and Anticipated Discharge Date Admission Date: March 06, 2023 Subjective Pt was seen and examined for follow up of SOB. sitting in chair with no acute distress Pt said that when he has a hard time to bring the phlegm he said that he used oxygen with exertion at home Denies any chest pain, palpitation, dizziness and SOB Review of Systems Review of Systems: All systems reviewed & are unremarkable except as noted in Subjective Physical Exam Physical Exam: General- No acute distress Head- atraumatic Eyes- PERRL, EOMI, ENT- oropharynx clear Neck- supple, no JVD Lungs- + coarse BS Heart- regular rhythm; no murmur Abdomen- normal bowel sounds, soft, nontender Extremities- no calf tenderness Neuro- alert, oriented x 3; PERRL, EOMI; no facial palsy; no dysarthria Skin- warm & dry Results & Data Results & Data Vital Signs (Past 12 Hours) Vital Signs Temp Pulse Pulse Resp BP Pulse Ox O2 Del Method 03/08/23 14:40 65 03/08/23 15:14 70 18 92 Nasal Cannula 03/08/23 10:00 Nasal Cannula 03/08/23 11:33 69 20 93 Nasal Cannula 03/08/23 06:05 62 03/08/23 11:15 36.8 C 83 20 161/71 H 92 Nasal Cannula 03/08/23 08:01 36.7 C 70 20 158/69 H 96 Room Air 03/08/23 07:20 69 18 98 Nasal Cannula O2 Flow Rate 03/08/23 14:40 03/08/23 15:14 4 03/08/23 10:00 3 03/08/23 11:33 4 03/08/23 06:05 03/08/23 11:15 2 03/08/23 08:01 03/08/23 07:20 6
[2023-03-08] MEDS: guaiFENesin 200 MG TAB PO SCH ×2 (17:42→23:20)
[2023-03-08] MEDS: SODIUM CHLOR 7% 4 ML NEB NEB SCH (18:17)
[2023-03-08] MEDS: ACETAMINOPHEN 325 MG TAB PO PRN (20:25)
[2023-03-08] MEDS: DULoxetine HCL 60 MG CAP PO SCH (20:28)
[2023-03-08] MEDS: DULoxetine HCL 30 MG CAP PO SCH (20:28)
[2023-03-08] MEDS: AMITRIPTYLINE HCL 50 MG TAB PO SCH (20:28)
[2023-03-08] MEDS ORDERED: FUROSEMIDE INJ 20 MG/2 ML VIAL IV ONE (23:31)
[2023-03-09] MEDS: POLYETHYLENE (MIRALAX) 17 GM PACK PO SCH ×3 (03:05→20:26)
[2023-03-09] MEDS: SENNA 8.6 MG TAB PO SCH ×3 (03:05→20:23)
[2023-03-09] MEDS: DOCUSATE SODIUM 100 MG CAP PO SCH ×3 (03:05→20:25)
[2023-03-09] MEDS: guaiFENesin 200 MG TAB PO SCH ×3 (05:05→17:00)
[2023-03-09] MEDS: LEVOTHYROXINE SODIUM 75 MCG TABLET PO SCH (05:06)
[2023-03-09] MEDS: methylPREDNISolone 40 MG in SYRINGE 0 ML IV SCH ×2 (05:07→16:59)
[2023-03-09] MEDS ORDERED: FUROSEMIDE INJ 20 MG/2 ML VIAL IV ONE (05:45)
[2023-03-09] MEDS: ALBUT/IPRATROP 3MG/0.5MG NEB 3 ML VIAL NEB SCH ×4 (07:37→19:02)
[2023-03-09] MEDS: SODIUM CHLOR 7% 4 ML NEB NEB SCH ×2 (07:37→19:02)
[2023-03-09 08:13] LABS: BUN Creatinine Ratio 25.2 (10-20); Calcium 9.4 mg/dl (8.6-10.3); Creatinine Clr Calc Pharmacy 53.7 ml/min; Est GFR (African American) 67.9 ml/min; Est GFR (Non-African American) 58.6 ml/min
[2023-03-09] MEDS: ATORVASTATIN 40 MG TAB PO SCH (08:14)
[2023-03-09] MEDS: CLOPIDOGREL BISULFATE 75 MG TAB PO SCH (08:15)
[2023-03-09] MEDS: CHOLECALCIFEROL 1,000 UNITS 25 MCG TAB PO SCH ×2 (08:15→20:21)
[2023-03-09] MEDS: FINASTERIDE 5 MG TAB PO SCH (08:16)
[2023-03-09] MEDS: DOXYCYCLINE HYCLATE 100 MG CAP PO SCH ×2 (08:16→20:25)
[2023-03-09] MEDS: FLUTICASONE PROPIONATE NA SPR 16 GM BTL NAE SCH (08:17)
[2023-03-09] MEDS: ENOXAPARIN INJ 40 MG/0.4 ML SYR SQ SCH (08:17)
[2023-03-09] MEDS: TAMSULOSIN HCL 0.4 MG CAP PO SCH (08:18)
[2023-03-09] MEDS: UMECLIDINIUM/VILANTEROL 62.5/25MCG 7 PUFFS/INHALER INH SCH (08:18)
[2023-03-09] MEDS: SODIUM CHLORIDE 0.65% NA SOLN 45 ML (OCEAN) SCH ×4 (08:19→20:26)
[2023-03-09] MEDS: PANTOprazole 40 MG TAB PO SCH (08:20)
[2023-03-09] MEDS: METOPROLOL SUCC 25MG EXT REL TAB PO SCH (08:20)
[2023-03-09] MEDS: LOSARTAN POTASSIUM 50 MG TAB PO SCH (08:21)
[2023-03-09] MEDS: LIDOCAINE 5% 1 PATCH TD SCH (08:21)
[2023-03-09 08:22] LABS: Hematocrit (blood only) 35.4 % (42.0-52.0); Hemoglobin 11.5 g/dl (14.0-18.0); Mean Corpuscular Hemoglobin 30.5 pg (25.0-34.0); Mean Corpuscular Hgb Conc 32.5 g/dL (32.0-36.0); Mean Corpuscular Volume 93.9 fL (80.0-100.0); Mean Platelet Volume 10.5 fL (9.4-12.4); Platelet Count 246 K/uL (130-400); RDW Coefficient of Variation 15.9 % (11.5-14.5); RDW Standard Deviation 54.4 fL (36.4-46.3); Red Blood Count 3.77 M/uL (4.70-6.10); White Blood Count 10.19 K/ul (4.8-10.8)
[2023-03-09] MEDS: FLUTICASONE/VILANTEROL 200/25MCG 14 PUFFS/INHALER INH SCH (08:22)
[2023-03-09] MEDS: GABAPENTIN 300 MG CAP PO SCH ×3 (08:22→20:21)
--- NOTE | 2023-03-09 09:42 | Hospitalist Progress Note ---
Date of Service March 09, 2023 Assessment & Plan (1) COPD exacerbation: Plan: 78 yo M with hyperlipidemia, hypothyroidism, bronchiectasis, granulomatous lung disease, COPD, nonallergic rhinitis, moderate persistent asthma without complication, dyspnea on exertion, sinus node dysfunction s/p pacemaker, history of angina, history of CAD, diastolic dysfunction, history of SVT, GERD, BPH, urge incontinence, restless legs, chronic back pain, depression presents with ongoing shortness of breath and cough. COPD exacerbation Enterovirus virus positive BioFire CXR showed no acute cardiopulmonary findings. No change in appearance of the chest. will taper solumedrol to 40mg IV q12h Currently on doxycycline and neb treatment procalcitonin - negative Continue home inhaler Continue oxygen supplement add flutter valve, guaifenesin and incentive spirometry hypertonic saline x 2 days Continue monitor closely Chest discomfort Possible costochondritis Troponin x2 negative EKG showed no ischemic changes Continue statin and plavix Stable History of depression Continue home medications History of CAD On Beta-kassie statin and Plavix Chronic anemia Hgb stable History of SVT On beta-kassie History of sinus node dysfunction s/p pacemaker History of chronic diastolic dysfunction Pt has a positive balance greater than 2L received lasix 20mg x1 will monitor HTN on Toprol xl and losartan Continue monitor BPH Continue Flomax and Proscar. DVT px on Lovenox full code Admission and Anticipated Discharge Date Admission Date: March 06, 2023 Subjective Pt was seen and examined for follow up of SOB, copd exacerb He is laying in bed no acute distress +hard time to bring the phlegm at home on 3L of O2 at baseline Denies any fever, chills, chest pain, shortness of breath, palpitations, dizziness Review of Systems Review of Systems: All systems reviewed & are unremarkable except as noted in Subjective Physical Exam Physical Exam: General- WD/WN M in No acute distress Head- atraumatic Eyes- PERRL, EOMI ENT- oropharynx clear Neck- supple, no JVD Lungs- + coarse BS Heart- regular rhythm; no murmur Abdomen- normal bowel sounds, soft, nontender Extremities- no calf tenderness Neuro- alert, oriented x 3; PERRL, EOMI; no facial palsy; no dysarthria, moves extremities Skin- warm & dry Results & Data Results & Data Vital Signs (Past 12 Hours) Vital Signs Temp Pulse Pulse Resp BP Pulse Ox O2 Del Method 03/09/23 08:03 36.4 C L 63 19 165/78 H 97 Nasal Cannula 03/09/23 07:38 66 18 96 Nasal Cannula 03/09/23 03:00 36.6 C 70 16 142/56 H 91 Nasal Cannula 03/08/23 23:00 36.6 C 80 20 135/75 98 Nasal Cannula 03/08/23 22:38 72 O2 Flow Rate 03/09/23 08:03 4 03/09/23 07:38 4 03/09/23 03:00 03/08/23 23:00 03/08/23 22:38 Laboratory Results 03/09/23 03/09/23 03/09/23 Range/Units 07:18 07:18 07:18 WBC 10.19 (4.8-10.8) K/ul RBC 3.77 L (4.70-6.10) M/uL Hgb 11.5 L (14.0-18.0) g/dl Hct 35.4 L (42.0-52.0) % MCV 93.9 (80.0-100.0) fL MCH 30.5 (25.0-34.0) pg MCHC 32.5 (32.0-36.0) g/dL RDW Std Deviation 54.4 H (36.4-46.3) fL RDW Coeff of Jarrett 15.9 H (11.5-14.5) % Plt Count 246 (130-400) K/uL MPV 10.5 (9.4-12.4) fL Sodium 136 (136-145) mmol/L Potassium 4.0 (3.5-5.1) mmol/L Chloride 101 (98-107) mmol/L Carbon Dioxide 28 (21-32) mmol/L Anion Gap 7 (3-11) BUN 30 H (6-23) mg/dl Creatinine 1.19 (0.6-1.4) mg/dl Est Cr Clr Drug Dosing 53.7 ml/min Est GFR ( Amer) 67.9 ml/min Est GFR (Non-Af Amer) 58.6 ml/min BUN/Creatinine Ratio 25.2 H (10-20) Glucose 137 H (70-99(Fasting)) mg/dl Estimat Average Glucose mg/dl Hemoglobin A1c (4.5-5.6) % Calcium 9.4 (8.6-10.3) mg/dl Procalcitonin < 0.05 (0-0.5) ng/ml 03/08/23 03/08/23 03/08/23 Range/Units 09:18 09:18 09:18 WBC 10.78 (4.8-10.8) K/ul RBC 3.58 L (4.70-6.10) M/uL Hgb 11.0 L (14.0-18.0) g/dl Hct 33.9 L (42.0-52.0) % MCV 94.7 (80.0-100.0) fL MCH 30.7 (25.0-34.0) pg MCHC 32.4 (32.0-36.0) g/dL RDW Std Deviation 54.2 H (36.4-46.3) fL RDW Coeff of Jarrett 15.7 H (11.5-14.5) % Plt Count 219 (130-400) K/uL MPV 10.5 (9.4-12.4) fL Sodium 136 (136-145) mmol/L Potassium 4.4 D (3.5-5.1) mmol/L Chloride 105 (98-107) mmol/L Carbon Dioxide 23 (21-32) mmol/L Anion Gap 8 (3-11) BUN 25 H (6-23) mg/dl Creatinine 1.09 (0.6-1.4) mg/dl Est Cr Clr Drug Dosing 58.6 ml/min Est GFR ( Amer) 75.5 ml/min Est GFR (Non-Af Amer) 65.1 ml/min BUN/Creatinine Ratio 22.9 H (10-20) Glucose 188 H (70-99(Fasting)) mg/dl Estimat Average Glucose 126 mg/dl Hemoglobin A1c 6.0 H (4.5-5.6) % Calcium 9.3 (8.6-10.3) mg/dl Procalcitonin (0-0.5) ng/ml Medications Administered Current Inpatient Medications Acetaminophen (Acetaminophen 325 Mg Tab) 650 mg PO Q4H PRN PRN Reason: Pain or Fever Stop: 04/05/23 22:43 Last Admin: 03/08/23 20:25 Dose: 650 mg Albuterol (Albuterol Hfa 8 Gm Inhaler) 2 puffs INH Q4 PRN PRN Reason: Shortness Of Breath Or Wheezing Stop: 04/05/23 22:43 Last Admin: 03/06/23 23:56 Dose: 2 puffs Albuterol (Albut/Ipratrop 3mg/0.5mg Neb 3 Ml Vial) 3 ml NEB QIDR [facility]; Protocol Stop: 04/06/23 06:59 Last Admin: 03/09/23 07:37 Dose: 3 ml Albuterol (Albut/Ipratrop 3mg/0.5mg Neb 3 Ml Vial) 3 ml NEB Q2H PRN; Protocol PRN Reason: Shortness Of Breath Or Wheezin Stop: 04/06/23 01:44 Amitriptyline HCl (Amitriptyline Hcl 50 Mg Tab) 50 mg PO HS [facility] Stop: 04/05/23 22:43 Last Admin: 03/08/23 20:28 Dose: 50 mg Artificial Tears (Artificial Tears) 1 drops OP QID PRN PRN Reason: Dry Eyes Stop: 04/05/23 23:25 Atorvastatin Calcium (Atorvastatin 40 Mg Tab) 80 mg PO DAILY [facility] Stop: 04/06/23 08:59 Last Admin: 03/09/23 08:14 Dose: 80 mg Clopidogrel Bisulfate (Clopidogrel Bisulfate 75 Mg Tab) 75 mg PO QAM [facility] Stop: 04/06/23 08:59 Last Admin: 03/09/23 08:15 Dose: 75 mg Docusate Sodium (Docusate Sodium 100 Mg Cap) 100 mg PO BID [facility] Stop: 04/05/23 22:43 Last Admin: 03/09/23 08:16 Dose: Not Given Doxycycline Hyclate (Doxycycline Hyclate 100 Mg Cap) 100 mg PO BID [facility] Stop: 03/14/23 08:59 Last Admin: 03/09/23 08:16 Dose: 100 mg Duloxetine HCl (Duloxetine Hcl 30 Mg Cap) 30 mg PO QPM [facility] Stop: 04/05/23 22:43 Last Admin: 03/08/23 20:28 Dose: 30 mg Duloxetine HCl (Duloxetine Hcl 60 Mg Cap) 60 mg PO QPM [facility] Stop: 04/05/23 22:43 Last Admin: 03/08/23 20:28 Dose: 60 mg Enoxaparin Sodium (Enoxaparin Inj 40 Mg/0.4 Ml Syr) 40 mg SQ Q24H [facility] Stop: 04/06/23 08:59 Last Admin: 03/09/23 08:17 Dose: 40 mg Finasteride (Finasteride 5 Mg Tab) 5 mg PO DAILY [facility] Stop: 04/06/23 08:59 Last Admin: 03/09/23 08:16 Dose: 5 mg Fluticasone Propionate (Fluticasone Propionate Na Spr 16 Gm Btl) 2 sprays JOSÉ MIGUEL DAILY [facility] Stop: 04/06/23 08:59 Last Admin: 03/09/23 08:17 Dose: 2 sprays Fluticasone/Vilanterol (Fluticasone/Vilanterol 200/25mcg 14 Puffs/Inhaler) 1 puffs INH DAILY [facility] Stop: 04/06/23 08:59 Last Admin: 03/09/23 08:22 Dose: 1 puffs Gabapentin (Gabapentin 300 Mg Cap) 300 mg PO TID@0900,1200,2100 [facility] Stop: 04/05/23 22:43 Last Admin: 03/09/23 08:22 Dose: 300 mg Guaifenesin (Guaifenesin 200 Mg Tab) 200 mg PO Q6 [facility] Stop: 04/07/23 16:29 Last Admin: 03/09/23 05:05 Dose: 200 mg Methylprednisolone 40 mg/ (Syringe) 0.64 mls @ 1.5 mls/min IV Q12H [facility] Stop: 04/07/23 16:29 Last Admin: 03/09/23 05:07 Dose: 1.5 mls/min Levothyroxine Sodium (Levothyroxine Sodium 75 Mcg Tablet) 75 mcg PO DAILYBB [facility] Stop: 04/06/23 06:29 Last Admin: 03/09/23 05:06 Dose: 75 mcg Lidocaine (Lidocaine 5% 1 Patch) 1 patch TD QAM [facility] Stop: 04/06/23 08:59 Last Admin: 03/09/23 08:21 Dose: 1 patch Losartan Potassium (Losartan Potassium 50 Mg Tab) 50 mg PO DAILY [facility] Stop: 04/06/23 08:59 Last Admin: 03/09/23 08:21 Dose: 50 mg Metoprolol Succinate (Metoprolol Succ 25mg Ext Rel Tab) 37.5 mg PO DAILY [facility] Stop: 04/06/23 08:59 Last Admin: 03/09/23 08:20 Dose: 37.5 mg Miscellaneous (Remove Lidoderm Patch) 1 each N/A DAILY@2100 [facility] Stop: 04/05/23 23:29 Last Admin: 03/08/23 20:30 Dose: 1 each Naphazoline HCl/Pheniramine Maleate (Naphazolin/Pheniramin Oph Soln 75 Drops/5 Ml Btl) 1 drops OP Q12H PRN PRN Reason: eye irritation Stop: 04/06/23 16:50 Last Admin: 03/08/23 20:31 Dose: 1 drops Nitroglycerin (Nitroglycerin Sl 0.4 Mg/Tab Tab) 0.4 mg SL Q5M PRN PRN Reason: Chest Pain Stop: 04/05/23 22:43 Pantoprazole Sodium (Pantoprazole 40 Mg Tab) 40 mg PO DAILY [facility] Stop: 04/06/23 08:59 Last Admin: 03/09/23 08:20 Dose: 40 mg Polyethylene Glycol (Polyethylene (Miralax) 17 Gm Pack) 17 gm PO DAILY PRN PRN Reason: Constipation Stop: 04/05/23 22:43 Polyethylene Glycol (Polyethylene (Miralax) 17 Gm Pack) 17 gm PO BID [facility] Stop: 04/05/23 22:43 Last Admin: 03/09/23 08:19 Dose: Not Given Sennosides (Senna 8.6 Mg Tab) 17.2 mg PO BID [facility] Stop: 04/05/23 22:43 Last Admin: 03/09/23 08:19 Dose: Not Given Sodium Chloride (Sodium Chloride 0.65% Na Soln 45 Ml ([place])) 2 sprays NA QID [facility] Stop: 04/05/23 22:43 Last Admin: 03/09/23 08:19 Dose: 2 sprays Sodium Chloride (Sodium Chlor 7% 4 Ml Neb) 4 ml NEB BIDR [facility] Stop: 04/07/23 18:59 Last Admin: 03/09/23 07:37 Dose: 4 ml Tamsulosin HCl (Tamsulosin Hcl 0.4 Mg Cap) 0.8 mg PO QAM [facility] Stop: 04/06/23 08:59 Last Admin: 03/09/23 08:18 Dose: 0.8 mg Umeclidinium/Vilanterol (Umeclidinium/Vilanterol 62.5/25mcg 7 Puffs/Inhaler) 1 puffs INH QAM [facility]; Protocol Stop: 04/06/23 08:59 Last Admin: 03/09/23 08:18 Dose: 1 puffs Vitamin D (Cholecalciferol 1,000 Units 25 Mcg Tab) 1,000 units PO BID [facility] Stop: 04/05/23 22:43 Last Admin: 03/09/23 08:15 Dose: 1,000 units
[2023-03-09] MEDS: DULoxetine HCL 30 MG CAP PO SCH (20:20)
[2023-03-09] MEDS: DULoxetine HCL 60 MG CAP PO SCH (20:21)
[2023-03-09] MEDS: AMITRIPTYLINE HCL 50 MG TAB PO SCH (20:22)
[2023-03-09] MEDS: NAPHAZOLIN/PHENIRAMIN OPH SOLN 75 DROPS/5 ML BTL OP PRN (20:24)
[2023-03-09] MEDS: ALBUTEROL HFA 8 GM INHALER INH PRN (20:32)
[2023-03-10] MEDS: guaiFENesin 200 MG TAB PO SCH ×4 (04:38→17:10)
[2023-03-10] MEDS: LEVOTHYROXINE SODIUM 75 MCG TABLET PO SCH (05:50)
[2023-03-10] MEDS: methylPREDNISolone 40 MG in SYRINGE 0 ML IV SCH ×2 (05:50→17:10)
[2023-03-10] MEDS: ACETAMINOPHEN 325 MG TAB PO PRN (05:54)
[2023-03-10] MEDS: ALBUT/IPRATROP 3MG/0.5MG NEB 3 ML VIAL NEB SCH ×4 (07:29→19:31)
[2023-03-10] MEDS: SODIUM CHLOR 7% 4 ML NEB NEB SCH ×2 (07:29→19:31)
[2023-03-10] MEDS: GABAPENTIN 300 MG CAP PO SCH ×3 (09:54→21:11)
[2023-03-10] MEDS: DOXYCYCLINE HYCLATE 100 MG CAP PO SCH ×2 (09:55→21:11)
[2023-03-10] MEDS: PANTOprazole 40 MG TAB PO SCH (09:55)
[2023-03-10] MEDS: LOSARTAN POTASSIUM 50 MG TAB PO SCH (09:55)
[2023-03-10] MEDS: CHOLECALCIFEROL 1,000 UNITS 25 MCG TAB PO SCH ×2 (09:55→21:11)
[2023-03-10] MEDS: METOPROLOL SUCC 25MG EXT REL TAB PO SCH (09:55)
[2023-03-10] MEDS: SENNA 8.6 MG TAB PO SCH ×2 (09:56→21:11)
[2023-03-10] MEDS: TAMSULOSIN HCL 0.4 MG CAP PO SCH (09:58)
[2023-03-10] MEDS: FLUTICASONE/VILANTEROL 200/25MCG 14 PUFFS/INHALER INH SCH (09:59)
[2023-03-10] MEDS: UMECLIDINIUM/VILANTEROL 62.5/25MCG 7 PUFFS/INHALER INH SCH (09:59)
[2023-03-10] MEDS: CLOPIDOGREL BISULFATE 75 MG TAB PO SCH (09:59)
[2023-03-10] MEDS: ATORVASTATIN 40 MG TAB PO SCH (09:59)
[2023-03-10] MEDS: FINASTERIDE 5 MG TAB PO SCH (09:59)
[2023-03-10] MEDS: FLUTICASONE PROPIONATE NA SPR 16 GM BTL NAE SCH (10:00)
[2023-03-10] MEDS: LIDOCAINE 5% 1 PATCH TD SCH (10:02)
[2023-03-10] MEDS: DOCUSATE SODIUM 100 MG CAP PO SCH ×2 (10:04→21:36)
[2023-03-10] MEDS: POLYETHYLENE (MIRALAX) 17 GM PACK PO SCH ×2 (10:05→21:18)
[2023-03-10] MEDS: SODIUM CHLORIDE 0.65% NA SOLN 45 ML (OCEAN) SCH ×4 (10:10→21:12)
--- NOTE | 2023-03-10 10:34 | Hospitalist Progress Note ---
Date of Service March 10, 2023 Assessment & Plan (1) COPD exacerbation: Plan: 78 yo M with hyperlipidemia, hypothyroidism, bronchiectasis, granulomatous lung disease, COPD, nonallergic rhinitis, moderate persistent asthma without complication, dyspnea on exertion, sinus node dysfunction s/p pacemaker, history of angina, history of CAD, diastolic dysfunction, history of SVT, GERD, BPH, urge incontinence, restless legs, chronic back pain, depression presents with ongoing shortness of breath and cough. COPD exacerbation Enterovirus virus positive [employer] CXR showed no acute cardiopulmonary findings. No change in appearance of the chest. will taper solumedrol to 40mg IV q12h Currently on doxycycline and neb treatment procalcitonin - negative Continue home inhaler Continue oxygen supplement add flutter valve, guaifenesin and incentive spirometry hypertonic saline Continue monitor closely Chest discomfort Possible costochondritis Troponin x2 negative EKG showed no ischemic changes Continue statin and plavix Stable History of depression Continue home medications History of CAD On Beta-kassie statin and Plavix Chronic anemia Hgb stable History of SVT On beta-kassie History of sinus node dysfunction s/p pacemaker History of chronic diastolic dysfunction Pt has a positive balance lasix prn will monitor HTN on Toprol xl and losartan Continue monitor BPH Continue Flomax and Proscar. DVT px on Lovenox full code Admission and Anticipated Discharge Date Admission Date: March 06, 2023 Subjective Pt was seen and examined for follow up of SOB, copd exacerb He is laying in bed no acute distress +hard time to bring the phlegm , feels short of breath at home on 3L of O2 at baseline Denies any fever, chills, chest pain, shortness of breath, palpitations, dizziness Review of Systems Review of Systems: All systems reviewed & are unremarkable except as noted in Subjective Physical Exam Physical Exam: General- WD/WN M in No acute distress Head- atraumatic Eyes- PERRL, EOMI ENT- oropharynx clear Neck- supple, no JVD Lungs- + coarse BS Heart- regular rhythm; no murmur Abdomen- normal bowel sounds, soft, nontender Extremities- no calf tenderness Neuro- alert, oriented x 3; PERRL, EOMI; no facial palsy; no dysarthria, moves extremities Skin- warm & dry Results & Data Results & Data Vital Signs (Past 12 Hours) Vital Signs Temp Pulse Pulse Resp BP BP Pulse Ox 03/10/23 07:20 36.4 C L 69 18 182/90 H 95 03/10/23 07:30 73 18 96 03/10/23 03:38 61 03/10/23 03:42 36.6 C 61 20 175/84 H 92 03/10/23 03:40 03/10/23 03:17 36.4 C L 69 18 164/78 H 95 03/09/23 22:54 64 O2 Del Method O2 Flow Rate 03/10/23 07:20 Nasal Cannula 2 03/10/23 07:30 Nasal Cannula 3 03/10/23 03:38 03/10/23 03:42 Nasal Cannula 3 03/10/23 03:40 Nasal Cannula 3 03/10/23 03:17 Room Air 03/09/23 22:54 Laboratory Results 03/10/23 03/10/23 Range/Units 10:35 10:35 WBC 8.21 (4.8-10.8) K/ul RBC 4.04 L (4.70-6.10) M/uL Hgb 12.3 L (14.0-18.0) g/dl Hct 37.5 L (42.0-52.0) % MCV 92.8 (80.0-100.0) fL MCH 30.4 (25.0-34.0) pg MCHC 32.8 (32.0-36.0) g/dL RDW Std Deviation 52.2 H (36.4-46.3) fL RDW Coeff of Jarrett 15.4 H (11.5-14.5) % Plt Count 228 (130-400) K/uL MPV 10.3 (9.4-12.4) fL Sodium 136 (136-145) mmol/L Potassium 4.0 (3.5-5.1) mmol/L Chloride 103 (98-107) mmol/L Carbon Dioxide 27 (21-32) mmol/L Anion Gap 6 (3-11) BUN 35 H (6-23) mg/dl Creatinine 1.09 (0.6-1.4) mg/dl Est Cr Clr Drug Dosing 58.6 ml/min Est GFR ( Amer) 75.5 ml/min Est GFR (Non-Af Amer) 65.1 ml/min BUN/Creatinine Ratio 32.1 H (10-20) Glucose 156 H (70-99(Fasting)) mg/dl Calcium 9.1 (8.6-10.3) mg/dl Phosphorus 2.9 (2.5-4.9) mg/dl Magnesium 2.1 (1.7-2.4) mg/dl Medications Administered Current Inpatient Medications Acetaminophen (Acetaminophen 325 Mg Tab) 650 mg PO Q4H PRN PRN Reason: Pain or Fever Stop: 04/05/23 22:43 Last Admin: 03/10/23 05:54 Dose: 650 mg Albuterol (Albuterol Hfa 8 Gm Inhaler) 2 puffs INH Q4 PRN PRN Reason: Shortness Of Breath Or Wheezing Stop: 04/05/23 22:43 Last Admin: 03/09/23 20:32 Dose: 2 puffs Albuterol (Albut/Ipratrop 3mg/0.5mg Neb 3 Ml Vial) 3 ml NEB QIDR [facility]; Protocol Stop: 04/06/23 06:59 Last Admin: 03/10/23 07:29 Dose: 3 ml Albuterol (Albut/Ipratrop 3mg/0.5mg Neb 3 Ml Vial) 3 ml NEB Q2H PRN; Protocol PRN Reason: Shortness Of Breath Or Wheezin Stop: 04/06/23 01:44 Amitriptyline HCl (Amitriptyline Hcl 50 Mg Tab) 50 mg PO HS [facility] Stop: 04/05/23 22:43 Last Admin: 03/09/23 20:22 Dose: 50 mg Artificial Tears (Artificial Tears) 1 drops OP QID PRN PRN Reason: Dry Eyes Stop: 04/05/23 23:25 Atorvastatin Calcium (Atorvastatin 40 Mg Tab) 80 mg PO DAILY [facility] Stop: 04/06/23 08:59 Last Admin: 03/10/23 09:59 Dose: 80 mg Clopidogrel Bisulfate (Clopidogrel Bisulfate 75 Mg Tab) 75 mg PO QAM [facility] Stop: 04/06/23 08:59 Last Admin: 03/10/23 09:59 Dose: 75 mg Docusate Sodium (Docusate Sodium 100 Mg Cap) 100 mg PO BID [facility] Stop: 04/05/23 22:43 Last Admin: 03/10/23 10:04 Dose: 100 mg Doxycycline Hyclate (Doxycycline Hyclate 100 Mg Cap) 100 mg PO BID [facility] Stop: 03/14/23 08:59 Last Admin: 03/10/23 09:55 Dose: 100 mg Duloxetine HCl (Duloxetine Hcl 30 Mg Cap) 30 mg PO QPM [facility] Stop: 04/05/23 22:43 Last Admin: 03/09/23 20:20 Dose: 30 mg Duloxetine HCl (Duloxetine Hcl 60 Mg Cap) 60 mg PO QPM [facility] Stop: 04/05/23 22:43 Last Admin: 03/09/23 20:21 Dose: 60 mg Enoxaparin Sodium (Enoxaparin Inj 40 Mg/0.4 Ml Syr) 40 mg SQ Q24H [facility] Stop: 04/06/23 08:59 Last Admin: 03/09/23 08:17 Dose: 40 mg Finasteride (Finasteride 5 Mg Tab) 5 mg PO DAILY [facility] Stop: 04/06/23 08:59 Last Admin: 03/10/23 09:59 Dose: 5 mg Fluticasone Propionate (Fluticasone Propionate Na Spr 16 Gm Btl) 2 sprays JOSÉ MIGUEL DAILY [facility] Stop: 04/06/23 08:59 Last Admin: 03/10/23 10:00 Dose: 2 sprays Fluticasone/Vilanterol (Fluticasone/Vilanterol 200/25mcg 14 Puffs/Inhaler) 1 puffs INH DAILY [facility] Stop: 04/06/23 08:59 Last Admin: 03/10/23 09:59 Dose: 1 puffs Gabapentin (Gabapentin 300 Mg Cap) 300 mg PO TID@0900,1200,2100 [facility] Stop: 04/05/23 22:43 Last Admin: 03/10/23 09:54 Dose: 300 mg Guaifenesin (Guaifenesin 200 Mg Tab) 200 mg PO Q6 [facility] Stop: 04/07/23 16:29 Last Admin: 03/10/23 05:50 Dose: 200 mg Methylprednisolone 40 mg/ (Syringe) 0.64 mls @ 1.5 mls/min IV Q12H [facility] Stop: 04/07/23 16:29 Last Admin: 03/10/23 05:50 Dose: 1.5 mls/min Levothyroxine Sodium (Levothyroxine Sodium 75 Mcg Tablet) 75 mcg PO DAILYBB [facility] Stop: 04/06/23 06:29 Last Admin: 03/10/23 05:50 Dose: 75 mcg Lidocaine (Lidocaine 5% 1 Patch) 1 patch TD QAM [facility] Stop: 04/06/23 08:59 Last Admin: 03/10/23 10:02 Dose: Not Given Losartan Potassium (Losartan Potassium 50 Mg Tab) 50 mg PO DAILY [facility] Stop: 04/06/23 08:59 Last Admin: 03/10/23 09:55 Dose: 50 mg Metoprolol Succinate (Metoprolol Succ 25mg Ext Rel Tab) 37.5 mg PO DAILY [facility] Stop: 04/06/23 08:59 Last Admin: 03/10/23 09:55 Dose: 37.5 mg Miscellaneous (Remove Lidoderm Patch) 1 each N/A DAILY@2100 [facility] Stop: 04/05/23 23:29 Last Admin: 03/09/23 20:26 Dose: 1 each Naphazoline HCl/Pheniramine Maleate (Naphazolin/Pheniramin Oph Soln 75 Drops/5 Ml Btl) 1 drops OP Q12H PRN PRN Reason: eye irritation Stop: 04/06/23 16:50 Last Admin: 03/09/23 20:24 Dose: 1 drops Nitroglycerin (Nitroglycerin Sl 0.4 Mg/Tab Tab) 0.4 mg SL Q5M PRN PRN Reason: Chest Pain Stop: 04/05/23 22:43 Pantoprazole Sodium (Pantoprazole 40 Mg Tab) 40 mg PO DAILY [facility] Stop: 04/06/23 08:59 Last Admin: 03/10/23 09:55 Dose: 40 mg Polyethylene Glycol (Polyethylene (Miralax) 17 Gm Pack) 17 gm PO DAILY PRN PRN Reason: Constipation Stop: 04/05/23 22:43 Polyethylene Glycol (Polyethylene (Miralax) 17 Gm Pack) 17 gm PO BID [facility] Stop: 04/05/23 22:43 Last Admin: 03/10/23 10:05 Dose: Not Given Sennosides (Senna 8.6 Mg Tab) 17.2 mg PO BID [facility] Stop: 04/05/23 22:43 Last Admin: 03/10/23 09:56 Dose: 17.2 mg Sodium Chloride (Sodium Chloride 0.65% Na Soln 45 Ml ([place])) 2 sprays NA QID [facility] Stop: 04/05/23 22:43 Last Admin: 03/10/23 10:10 Dose: 2 sprays Sodium Chloride (Sodium Chlor 7% 4 Ml Neb) 4 ml NEB BIDR [facility] Stop: 04/07/23 18:59 Last Admin: 03/10/23 07:29 Dose: 4 ml Tamsulosin HCl (Tamsulosin Hcl 0.4 Mg Cap) 0.8 mg PO QAM [facility] Stop: 04/06/23 08:59 Last Admin: 03/10/23 09:58 Dose: 0.8 mg Umeclidinium/Vilanterol (Umeclidinium/Vilanterol 62.5/25mcg 7 Puffs/Inhaler) [facility] [place] Stop: 04/06/23 08:59 Last Admin: 03/10/23 09:59 Dose: 1 puffs Vitamin D (Cholecalciferol 1,000 Units 25 Mcg Tab) 1,000 units PO BID [facility] Stop: 04/05/23 22:43 Last Admin: 03/10/23 09:55 Dose: 1,000 units
[2023-03-10 10:49] LABS: Hematocrit (blood only) 37.5 % (42.0-52.0); Hemoglobin 12.3 g/dl (14.0-18.0); Mean Corpuscular Hemoglobin 30.4 pg (25.0-34.0); Mean Corpuscular Hgb Conc 32.8 g/dL (32.0-36.0); Mean Corpuscular Volume 92.8 fL (80.0-100.0); Mean Platelet Volume 10.3 fL (9.4-12.4); Platelet Count 228 K/uL (130-400); RDW Coefficient of Variation 15.4 % (11.5-14.5); RDW Standard Deviation 52.2 fL (36.4-46.3); Red Blood Count 4.04 M/uL (4.70-6.10); White Blood Count 8.21 K/ul (4.8-10.8)
[2023-03-10 11:05] LABS: BUN Creatinine Ratio 32.1 (10-20); Calcium 9.1 mg/dl (8.6-10.3); Creatinine Clr Calc Pharmacy 58.6 ml/min; Est GFR (African American) 75.5 ml/min; Est GFR (Non-African American) 65.1 ml/min; Magnesium 2.1 mg/dl (1.7-2.4); Phosphorus 2.9 mg/dl (2.5-4.9)
[2023-03-10] MEDS: ENOXAPARIN INJ 40 MG/0.4 ML SYR SQ SCH (12:31)
[2023-03-10] MEDS: DULoxetine HCL 30 MG CAP PO SCH (21:11)
[2023-03-10] MEDS: DULoxetine HCL 60 MG CAP PO SCH (21:11)
[2023-03-10] MEDS: AMITRIPTYLINE HCL 50 MG TAB PO SCH (21:11)
[2023-03-10] MEDS: FUROSEMIDE 20 MG TAB PO SCH (22:22)
[2023-03-10] MEDS: guaiFENesin 600 MG TABCR PO SCH (22:22)
[2023-03-11] MEDS: methylPREDNISolone 40 MG in SYRINGE 0 ML IV SCH ×2 (03:03→21:23)
[2023-03-11] MEDS: LEVOTHYROXINE SODIUM 75 MCG TABLET PO SCH (05:48)
[2023-03-11] MEDS: SODIUM CHLOR 7% 4 ML NEB NEB SCH ×2 (07:03→19:39)
[2023-03-11] MEDS: ALBUT/IPRATROP 3MG/0.5MG NEB 3 ML VIAL NEB SCH ×4 (07:03→19:39)
[2023-03-11 08:09] LABS: BUN Creatinine Ratio 29.9 (10-20); Calcium 9.2 mg/dl (8.6-10.3); Creatinine Clr Calc Pharmacy 59.7 ml/min; Est GFR (African American) 77.2 ml/min; Est GFR (Non-African American) 66.6 ml/min; Magnesium 2.2 mg/dl (1.7-2.4); Phosphorus 2.9 mg/dl (2.5-4.9)
[2023-03-11] MEDS: SENNA 8.6 MG TAB PO SCH ×2 (09:39→21:39)
[2023-03-11] MEDS: FUROSEMIDE 20 MG TAB PO SCH (09:39)
[2023-03-11] MEDS: ATORVASTATIN 40 MG TAB PO SCH (09:39)
[2023-03-11] MEDS: PANTOprazole 40 MG TAB PO SCH (09:40)
[2023-03-11] MEDS: FLUTICASONE/VILANTEROL 200/25MCG 14 PUFFS/INHALER INH SCH (09:40)
[2023-03-11] MEDS: GABAPENTIN 300 MG CAP PO SCH ×3 (09:40→21:31)
[2023-03-11] MEDS: UMECLIDINIUM/VILANTEROL 62.5/25MCG 7 PUFFS/INHALER INH SCH (09:40)
[2023-03-11] MEDS: CLOPIDOGREL BISULFATE 75 MG TAB PO SCH (09:40)
[2023-03-11] MEDS: SODIUM CHLORIDE 0.65% NA SOLN 45 ML (OCEAN) SCH ×4 (09:41→21:31)
[2023-03-11] MEDS: FLUTICASONE PROPIONATE NA SPR 16 GM BTL NAE SCH (09:41)
[2023-03-11] MEDS: ENOXAPARIN INJ 40 MG/0.4 ML SYR SQ SCH (09:41)
[2023-03-11] MEDS: POLYETHYLENE (MIRALAX) 17 GM PACK PO SCH ×2 (09:42→21:38)
[2023-03-11] MEDS: CHOLECALCIFEROL 1,000 UNITS 25 MCG TAB PO SCH ×2 (09:42→21:31)
[2023-03-11] MEDS: METOPROLOL SUCC 25MG EXT REL TAB PO SCH (09:42)
[2023-03-11] MEDS: FINASTERIDE 5 MG TAB PO SCH (09:44)
[2023-03-11] MEDS: TAMSULOSIN HCL 0.4 MG CAP PO SCH (09:44)
[2023-03-11] MEDS: DOXYCYCLINE HYCLATE 100 MG CAP PO SCH ×2 (09:44→21:27)
[2023-03-11] MEDS: LOSARTAN POTASSIUM 50 MG TAB PO SCH (09:44)
[2023-03-11] MEDS: LIDOCAINE 5% 1 PATCH TD SCH (09:44)
[2023-03-11] MEDS: DOCUSATE SODIUM 100 MG CAP PO SCH ×2 (09:46→21:38)
[2023-03-11] MEDS ORDERED: ACETYLCYSTEINE 10% INHAL SOLN 4 ML **DISPENSED BY RESP. INH ONE (10:46)
[2023-03-11] MEDS: guaiFENesin 600 MG TABCR PO SCH ×3 (11:46→21:43)
[2023-03-11] MEDS: NAPHAZOLIN/PHENIRAMIN OPH SOLN 75 DROPS/5 ML BTL OP PRN (14:49)
--- NOTE | 2023-03-11 16:46 | Hospitalist Progress Note ---
Date of Service March 11, 2023 Assessment & Plan (1) COPD exacerbation: Plan: 78 yo M with hyperlipidemia, hypothyroidism, bronchiectasis, granulomatous lung disease, COPD, nonallergic rhinitis, moderate persistent asthma without complication, dyspnea on exertion, sinus node dysfunction s/p pacemaker, history of angina, history of CAD, diastolic dysfunction, history of SVT, GERD, BPH, urge incontinence, restless legs, chronic back pain, depression presents with ongoing shortness of breath and cough. COPD exacerbation Enterovirus virus positive [employer] CXR showed no acute cardiopulmonary findings. No change in appearance of the chest. will taper solumedrol to 40mg IV q12h procalcitonin - negative Currently on doxycycline twice daily Continue home inhaler Continue oxygen supplement add flutter valve, guaifenesin and incentive spirometry Continue hypertonic saline Mucomyst and chest PT added Consider to transition to oral prednisone 40 mg starting tomorrow Continue monitor closely Chest discomfort Possible costochondritis Troponin x2 negative EKG showed no ischemic changes Continue statin and plavix Stable History of depression Continue home medications History of CAD On Beta-kassie statin and Plavix Chronic anemia Hgb stable History of SVT On beta-kassie History of sinus node dysfunction s/p pacemaker History of chronic diastolic dysfunction Pt has a positive balance Continue IV Lasix as needed Continue monitor HTN on Toprol xl and losartan Continue monitor BPH Continue Flomax and Proscar. DVT px on Lovenox full code Admission and Anticipated Discharge Date Admission Date: March 06, 2023 Subjective Pt was seen and examined for follow up of SOB, copd exacerb He is laying in bed no acute distress He said that his breathing feels a lot better He said that is starting to bring phlegm up Denies any fever, chills, chest pain, shortness of breath, palpitations, dizziness Review of Systems Review of Systems: All systems reviewed & are unremarkable except as noted in Subjective Physical Exam Physical Exam: General- No acute distress Head- atraumatic Eyes- PERRL, EOMI, ENT- oropharynx clear Neck- supple, no JVD Lungs- + coarse BS Heart- regular rhythm; no murmur Abdomen- normal bowel sounds, soft, nontender Extremities- no calf tenderness Neuro- alert, oriented x 3; PERRL, EOMI; no facial palsy; no dysarthria Skin- warm & dry Results & Data Results & Data Vital Signs (Past 12 Hours) Vital Signs Temp Pulse Pulse Resp BP BP Pulse Ox 03/11/23 16:04 71 03/11/23 15:47 36.4 C L 73 20 118/75 94 03/11/23 15:45 74 18 94 03/11/23 11:51 36.4 C L 80 20 144/76 H 93 03/11/23 11:22 03/11/23 11:20 72 18 92 03/11/23 07:36 36.5 C 63 19 150/70 H 92 03/11/23 07:25 69 03/11/23 07:03 70 18 95 O2 Del Method O2 Flow Rate 03/11/23 16:04 03/11/23 15:47 Room Air 03/11/23 15:45 Nasal Cannula 3 03/11/23 11:51 Nasal Cannula 3 03/11/23 11:22 Nasal Cannula 3 03/11/23 11:20 Nasal Cannula 3 03/11/23 07:36 Nasal Cannula 3 03/11/23 07:25 03/11/23 07:03 Nasal Cannula 3
[2023-03-11] MEDS ORDERED: Nursing to Pharmacy Communication SCH (20:45)
[2023-03-11] MEDS: AMITRIPTYLINE HCL 50 MG TAB PO SCH (21:26)
[2023-03-11] MEDS: DULoxetine HCL 60 MG CAP PO SCH (21:27)
[2023-03-11] MEDS: DULoxetine HCL 30 MG CAP PO SCH (21:31)
[2023-03-12] MEDS: LEVOTHYROXINE SODIUM 75 MCG TABLET PO SCH (05:56)
[2023-03-12] MEDS: SODIUM CHLOR 7% 4 ML NEB NEB SCH ×3 (07:20→20:03)
[2023-03-12] MEDS: ACETYLCYSTEINE 10% INHAL SOLN 4 ML **DISPENSED BY RESP. INH SCH ×2 (07:20→19:45)
[2023-03-12] MEDS: ALBUT/IPRATROP 3MG/0.5MG NEB 3 ML VIAL NEB SCH ×4 (07:20→22:26)
[2023-03-12] MEDS: ATORVASTATIN 40 MG TAB PO SCH (09:42)
[2023-03-12] MEDS: TAMSULOSIN HCL 0.4 MG CAP PO SCH (09:42)
[2023-03-12] MEDS: LOSARTAN POTASSIUM 50 MG TAB PO SCH (09:42)
[2023-03-12] MEDS: METOPROLOL SUCC 25MG EXT REL TAB PO SCH (09:42)
[2023-03-12] MEDS: PANTOprazole 40 MG TAB PO SCH (09:42)
[2023-03-12] MEDS: FUROSEMIDE 20 MG TAB PO SCH (09:43)
[2023-03-12] MEDS: CLOPIDOGREL BISULFATE 75 MG TAB PO SCH (09:44)
[2023-03-12] MEDS: SENNA 8.6 MG TAB PO SCH ×2 (09:44→20:26)
[2023-03-12] MEDS: FINASTERIDE 5 MG TAB PO SCH (09:44)
[2023-03-12] MEDS: ENOXAPARIN INJ 40 MG/0.4 ML SYR SQ SCH (09:44)
[2023-03-12] MEDS: FLUTICASONE/VILANTEROL 200/25MCG 14 PUFFS/INHALER INH SCH (09:44)
[2023-03-12] MEDS: UMECLIDINIUM/VILANTEROL 62.5/25MCG 7 PUFFS/INHALER INH SCH (09:45)
[2023-03-12] MEDS: SODIUM CHLORIDE 0.65% NA SOLN 45 ML (OCEAN) SCH ×4 (09:45→20:27)
[2023-03-12] MEDS: GABAPENTIN 300 MG CAP PO SCH ×3 (09:45→20:25)
[2023-03-12] MEDS: LIDOCAINE 5% 1 PATCH TD SCH (09:46)
[2023-03-12] MEDS: DOXYCYCLINE HYCLATE 100 MG CAP PO SCH ×2 (09:46→20:23)
[2023-03-12] MEDS: FLUTICASONE PROPIONATE NA SPR 16 GM BTL NAE SCH (09:46)
[2023-03-12] MEDS: methylPREDNISolone 40 MG in SYRINGE 0 ML IV SCH ×3 (09:47→21:09)
[2023-03-12] MEDS: POLYETHYLENE (MIRALAX) 17 GM PACK PO SCH ×2 (09:47→20:26)
[2023-03-12] MEDS: DOCUSATE SODIUM 100 MG CAP PO SCH ×2 (09:50→20:24)
[2023-03-12] MEDS: CHOLECALCIFEROL 1,000 UNITS 25 MCG TAB PO SCH ×2 (10:33→20:24)
--- NOTE | 2023-03-12 16:46 | Hospitalist Progress Note ---
Date of Service March 12, 2023 Assessment & Plan (1) COPD exacerbation: Plan: 78 yo M with hyperlipidemia, hypothyroidism, bronchiectasis, granulomatous lung disease, COPD, nonallergic rhinitis, moderate persistent asthma without complication, dyspnea on exertion, sinus node dysfunction s/p pacemaker, history of angina, history of CAD, diastolic dysfunction, history of SVT, GERD, BPH, urge incontinence, restless legs, chronic back pain, depression presents with ongoing shortness of breath and cough. COPD exacerbation Enterovirus virus positive BioFire CXR showed no acute cardiopulmonary findings. No change in appearance of the chest. procalcitonin - negative Currently on doxycycline twice daily Continue home inhaler Continue oxygen supplement ( On baseline 3L oxygen at home ) Continue flutter valve, guaifenesin and incentive spirometry Continue hypertonic saline Continue Mucomyst and chest PT added Transition to oral prednisone 40 mg in am Clinically improved Chest discomfort Possible costochondritis Troponin x2 negative EKG showed no ischemic changes Continue statin and plavix Stable History of depression Continue home medications History of CAD On Beta-kassie statin and Plavix Chronic anemia Hgb stable History of SVT On beta-kassie History of sinus node dysfunction s/p pacemaker History of chronic diastolic dysfunction Pt has a positive balance Continue IV Lasix as needed Continue monitor HTN on Toprol xl and losartan Continue monitor BPH Continue Flomax and Proscar. DVT px on Lovenox full code Admission and Anticipated Discharge Date Admission Date: March 06, 2023 Subjective Pt was seen and examined for follow up of SOB, copd exacerb Lying in bed no acute distress He said that his breathing feels a lot better and he is bringing phlegm he is very anxious to go home, but agreed to stay to night for the Mucomyst and chest PT. Denies any fever, chills, chest pain, shortness of breath, palpitations, dizziness Review of Systems Review of Systems: All systems reviewed & are unremarkable except as noted in Subjective Physical Exam Physical Exam: General- No acute distress Head- atraumatic Eyes- PERRL, EOMI, ENT- oropharynx clear Neck- supple, no JVD Lungs- + coarse BS Heart- regular rhythm; no murmur Abdomen- normal bowel sounds, soft, nontender Extremities- no calf tenderness Neuro- alert, oriented x 3; PERRL, EOMI; no facial palsy; no dysarthria Skin- warm & dry Results & Data Results & Data Vital Signs (Past 12 Hours) Vital Signs Temp Pulse Pulse Resp BP Pulse Ox O2 Del Method 03/12/23 15:53 36.6 C 65 18 129/67 94 Nasal Cannula 03/12/23 13:14 Nasal Cannula 03/12/23 13:14 62 03/12/23 11:50 36.4 C L 64 18 128/42 L 94 Nasal Cannula 03/12/23 11:12 75 18 94 Nasal Cannula 03/12/23 07:55 36.3 C L 70 19 121/71 96 Nasal Cannula 03/12/23 07:21 77 18 94 Nasal Cannula O2 Flow Rate 03/12/23 15:53 3 03/12/23 13:14 3 03/12/23 13:14 03/12/23 11:50 3 03/12/23 11:12 3 03/12/23 07:55 3 03/12/23 07:21 3
[2023-03-12] MEDS: DULoxetine HCL 30 MG CAP PO SCH (20:21)
[2023-03-12] MEDS: guaiFENesin 600 MG TABCR PO SCH (20:22)
[2023-03-12] MEDS: AMITRIPTYLINE HCL 50 MG TAB PO SCH (20:23)
[2023-03-12] MEDS: DULoxetine HCL 60 MG CAP PO SCH (20:24)
[2023-03-13] MEDS: LEVOTHYROXINE SODIUM 75 MCG TABLET PO SCH (05:58)
[2023-03-13] MEDS: SODIUM CHLOR 7% 4 ML NEB NEB SCH (07:24)
[2023-03-13] MEDS: ALBUT/IPRATROP 3MG/0.5MG NEB 3 ML VIAL NEB SCH ×2 (07:24→11:24)
[2023-03-13] MEDS: FINASTERIDE 5 MG TAB PO SCH (08:35)
[2023-03-13] MEDS: LIDOCAINE 5% 1 PATCH TD SCH (08:35)
[2023-03-13] MEDS: CLOPIDOGREL BISULFATE 75 MG TAB PO SCH (08:35)
[2023-03-13] MEDS: LOSARTAN POTASSIUM 50 MG TAB PO SCH (08:35)
[2023-03-13] MEDS: ATORVASTATIN 40 MG TAB PO SCH (08:36)
[2023-03-13] MEDS: FUROSEMIDE 20 MG TAB PO SCH (08:36)
[2023-03-13] MEDS: DOXYCYCLINE HYCLATE 100 MG CAP PO SCH (08:36)
[2023-03-13] MEDS: CHOLECALCIFEROL 1,000 UNITS 25 MCG TAB PO SCH (08:36)
[2023-03-13] MEDS: TAMSULOSIN HCL 0.4 MG CAP PO SCH (08:36)
[2023-03-13] MEDS: POLYETHYLENE (MIRALAX) 17 GM PACK PO SCH (08:36)
[2023-03-13] MEDS: METOPROLOL SUCC 25MG EXT REL TAB PO SCH (08:37)
[2023-03-13] MEDS: guaiFENesin 600 MG TABCR PO SCH (08:37)
[2023-03-13] MEDS: PANTOprazole 40 MG TAB PO SCH (08:37)
[2023-03-13] MEDS: FLUTICASONE PROPIONATE NA SPR 16 GM BTL NAE SCH (08:38)
[2023-03-13] MEDS: GABAPENTIN 300 MG CAP PO SCH (08:38)
[2023-03-13] MEDS: ENOXAPARIN INJ 40 MG/0.4 ML SYR SQ SCH (08:39)
[2023-03-13] MEDS: UMECLIDINIUM/VILANTEROL 62.5/25MCG 7 PUFFS/INHALER INH SCH (08:39)
[2023-03-13] MEDS: FLUTICASONE/VILANTEROL 200/25MCG 14 PUFFS/INHALER INH SCH (08:39)
[2023-03-13] MEDS: SODIUM CHLORIDE 0.65% NA SOLN 45 ML (OCEAN) SCH (08:40)
[2023-03-13] MEDS: DOCUSATE SODIUM 100 MG CAP PO SCH (08:40)
[2023-03-13] MEDS: SENNA 8.6 MG TAB PO SCH (08:40)
[2023-03-13] MEDS ORDERED: predniSONE 20 MG TAB PO SCH (09:00)
--- NOTE | 2023-03-27 17:15 | Discharge Summary ---
Discharge Summary Date of Service March 27, 2023 delayed entry date of service 03/13/23 Notes For Next Care Provider Medication Changes From Visit PREDNISONE TAPER 40mg daily x 2 days, then 30mg daily x 3 days, then 20mg daily x 3 days, then 10mg daily x 3 days, then STOP MUCINEX - for cough CONTINUE ALBUTEROL NEBULIZATION FOUR TIMES A DAY FOR 7 DAYS. CONTINUE INCENTIVE SPIROMETRY EVERY 2-3 HOURS AND FLUTTER VALVE 4 TIMES A DAY/ Admission HPI Per Admitting Provider 78-year-old male with past med significant for hyperlipidemia, hypothyroidism, bronchiectasis, granulomatous lung disease, COPD, nonallergic rhinitis, moderate persistent asthma without complication, dyspnea on exertion, sinus node dysfunction s/p pacemaker, history of angina, history of CAD, diastolic dysfunction, history of SVT, GERD, BPH, urge incontinence, restless legs, chronic back pain, depression presents with ongoing shortness of breath and cough. Patient says last 5 days he is having congested symptoms with cough and last 2 days progressively getting short of breath. 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 Denies any fevers. Has mild chest discomfort 2/10 in severity and the pain is more when he is coughing. Denies any headaches. No neck pain. Has chronic back pain. He has a left hip fracture in September and following with Elaine and Says he still has a pain in the hip. No nausea or vomiting. Eating and drinking okay. Normal bowel and bladder movements. Current resting comfortably hemodynamically stable. Past medical history as mentioned above Past surgical history left total knee arthroplasty, bronchoscopy with biopsy, cardiac cath with angioplasty, colonoscopy, coronary artery dilatation, EGD, left femur fracture repair, flexible sigmoidoscopy, knee arthroscopy, laparoscopic cholecystectomy, s/p pacemaker, revision of total hip joint surgery in 1994 and 2006 sacroiliac joint injection. Left total hip replacement in 1986. Social history . Quit smoking 1971. Alcohol occasional. No drug use. Family history mother had asthma, diabetes, kidney stones, CHF and at age of 96. Brother heart disease. Admission Exam Per Admitting Provider PREDNISONE TAPER 40mg daily x 2 days, then 30mg daily x 3 days, then 20mg daily x 3 days, then 10mg daily x 3 days, then STOP MUCINEX - for cough CONTINUE ALBUTEROL NEBULIZATION FOUR TIMES A DAY FOR 7 DAYS. CONTINUE INCENTIVE SPIROMETRY EVERY 2-3 HOURS AND FLUTTER VALVE 4 TIMES A DAY/ Principal Dx & Hospital Course #1 = Principal Diagnosis (1) COPD exacerbation: per Dr. Sanches's notes with addendum 78 yo M with hyperlipidemia, hypothyroidism, bronchiectasis, granulomatous lung disease, COPD, nonallergic rhinitis, moderate persistent asthma without complication, dyspnea on exertion, sinus node dysfunction s/p pacemaker, history of angina, history of CAD, diastolic dysfunction, history of SVT, GERD, BPH, urge incontinence, restless legs, chronic back pain, depression presents with ongoing shortness of breath and cough. COPD exacerbation Enterovirus virus positive BioFire CXR showed no acute cardiopulmonary findings. No change in appearance of the chest. procalcitonin - negative Currently on doxycycline twice daily Continue home inhaler Continue oxygen supplement ( On baseline 3L oxygen at home ) Continue flutter valve, guaifenesin and incentive spirometry Continue hypertonic saline Continue Mucomyst and chest PT added Transition to oral prednisone 40 mg in am Clinically improved 03/13 Patient clinically improved Discharged on the following: PREDNISONE TAPER 40mg daily x 2 days, then 30mg daily x 3 days, then 20mg daily x 3 days, then 10mg daily x 3 days, then STOP MUCINEX - for cough CONTINUE ALBUTEROL NEBULIZATION FOUR TIMES A DAY FOR 7 DAYS. CONTINUE INCENTIVE SPIROMETRY EVERY 2-3 HOURS AND FLUTTER VALVE 4 TIMES A DAY/ Chest discomfort Possible costochondritis Troponin x2 negative EKG showed no ischemic changes Continue statin and plavix Stable History of depression Continue home medications History of CAD On Beta-kassie statin and Plavix Chronic anemia Hgb stable History of SVT On beta-kassie History of sinus node dysfunction s/p pacemaker History of chronic diastolic dysfunction Pt has a positive balance Continue IV Lasix as needed Continue monitor HTN on Toprol xl and losartan Continue monitor BPH Continue Flomax and Proscar. DVT px on Lovenox full code Discharge Exam General- oriented x 3, not in distress, speaks in sentences with no effort or accessory muscle use Eyes- anicteric Neck- no JVD Lungs- clear breath sounds bilaterally, no rales/wheezes Heart- normal rate, regular rhythm; no murmurs Abdomen- normal bowel sounds, nondistended, soft, nontender Extremities- no pretibial edema, no calf tenderness Neuro- alert, oriented x 3; no gross focal neurologic deficits Skin- warm & dry Updated Medication List Medication Instructions Recorded Confirmed Type acetaminophen 500 mg tablet 1,000 mg PO TID PRN Pain 03/06/23 03/06/23 History (Tylenol Extra Strength) albuterol sulfate 2.5 mg/3 mL 2.5 mg continuous nebulization Q6 03/06/23 03/06/23 History (0.083 %) solution for nebulization PRN Shortness Of Breath Or Wheezing albuterol sulfate 90 mcg/actuation 2 puff inhalation Q4 PRN Shortness 03/06/23 03/06/23 History aerosol inhaler Of Breath Or Wheezing amitriptyline 25 mg tablet 50 mg PO HS 03/06/23 03/06/23 History atorvastatin 80 mg tablet 80 mg PO DAILY 03/06/23 03/06/23 History cholecalciferol (vitamin D3) 25 25 mcg PO BID 03/06/23 03/06/23 History mcg (1,000 unit) tablet (Vitamin D3) clopidogrel 75 mg tablet 75 mg PO QAM 03/06/23 03/06/23 History dextran 70-hypromellose 0.1 %-0.3 1 drp ophthalmic (eye) QID PRN Dry 03/06/23 03/06/23 History % eye drops Eyes docusate sodium 100 mg tablet 100 mg PO BID 03/06/23 03/06/23 History duloxetine 30 mg capsule,delayed 30 mg PO QPM 03/06/23 03/06/23 History release duloxetine 60 mg capsule,delayed 60 mg PO QPM 03/06/23 03/06/23 History release finasteride 5 mg tablet 5 mg PO DAILY 03/06/23 03/06/23 History fluticasone 250 mcg-salmeterol 50 1 inh inhalation BID 03/06/23 03/06/23 History mcg/dose blistr powdr for inhalation fluticasone propionate 50 2 spray intranasal DAILY 03/06/23 03/06/23 History mcg/actuation nasal spray,suspension (Flonase Allergy Relief) gabapentin 300 mg capsule 300 mg PO TID 03/06/23 03/06/23 History levothyroxine 75 mcg tablet 75 mcg PO DAILY 03/06/23 03/06/23 History lidocaine 4 % topical patch 1 patch topical Q12 03/06/23 03/06/23 History losartan 50 mg tablet 50 mg PO DAILY 03/06/23 03/06/23 History metoprolol succinate 25 mg 37.5 mg PO DAILY 03/06/23 03/06/23 History tablet,extended release 24 hr nitroglycerin 0.4 mg sublingual 0.4 mg sublingual DIRECTED PRN 03/06/23 03/06/23 History tablet Chest Pain pantoprazole 40 mg tablet,delayed 40 mg PO DAILY 03/06/23 03/06/23 History release polyethylene glycol 3350 17 gram 17 g PO BID 03/06/23 03/06/23 History oral powder packet (Miralax) sennosides 8.6 mg tablet (senna) 17.2 mg PO BID 03/06/23 03/06/23 History sodium chloride 0.65 % nasal spray 2 spray intranasal QID 03/06/23 03/06/23 History aerosol (Saline Nasal) tamsulosin 0.4 mg capsule 0.8 mg PO QAM 03/06/23 03/06/23 History umeclidinium 62.5 mcg-vilanterol 1 ea inhalation QAM 03/06/23 03/06/23 History 25 mcg/actuation powdr for inhalation (Anoro Ellipta) ipratropium 0.5 mg-albuterol 3 mg 3 ml NEB QIDR 7 days #90 mL 03/13/23 Rx (2.5 mg base)/3 mL nebulization soln prednisone 10 mg tablet 10 mg PO DAILY #26 tabs 03/13/23 Rx Hospital Stay Data Pending Results Patient Have Any Pending Studies at Discharge: No Discharge Instructions Given to Patient (Per Discharging Provider) PLEASE REFER TO YOUR NEW MEDICATION LIST AND FOLLOW INSTRUCTIONS CAREFULLY. YOUR NEW MEDICATIONS INCLUDE: PREDNISONE TAPER 40mg daily x 2 days, then 30mg daily x 3 days, then 20mg daily x 3 days, then 10mg daily x 3 days, then STOP MUCINEX - for cough CONTINUE ALBUTEROL NEBULIZATION FOUR TIMES A DAY FOR 7 DAYS. CONTINUE INCENTIVE SPIROMETRY EVERY 2-3 HOURS AND FLUTTER VALVE 4 TIMES A DAY/ PLEASE CALL YOUR PRIMARY CARE PHYSICIAN OR RETURN TO THE ER IF WITH WORSENING OF SYMPTOMS, INCLUDING SHORTNESS OF BREATH, COUGH, FEVER/CHILLS, NAUSEA/VOMITING, ETC. FOLLOW UP WITH PRIMARY CARE PHYSICIAN IN 1 WEEK OUTLINED ABOVE. FOLLOW UP WITH YOUR LUNG SPECIALIST IN 2 WEEKS. Total Time Total Time Spent Total Time Spent (In Minutes): >30 minutes
== END 2023-03-13 12:39 | disposition home or self-care (01) | DRG 191 ==
LOC: ED 15:57 → SUATTDRO 20:24 → EDINP 20:24 → 1E 22:47 → 2S 03-07 19:05 → 2W 03-10 03:26

== ENCOUNTER 2023-12-18 12:37 | Inpatient (IN) ==
--- NOTE | 2023-12-18 13:02 | Emergency Department Note ---
Impression & Plan Sepsis, COPD exacerbation ED Provider Note Diagnosis: Sepsis, elevated troponin, COPD exacerbation, pleural effusion Disposition: Admission CHIEF COMPLAINT: HPI: Patient is a 78-year-old male presenting with shortness of breath. Patient was at the [facility] EMS was called and found patient to be wheezing. Patient had ST depressions in the lateral leads on EKG en route. Patient not having active chest pain at this moment. Patient found to be febrile and has been having productive cough with greenish-yellow sputum. Patient's states he has been sick for 2 to 3 days time. Patient received 2 DuoNeb treatments and 125 Solu- Medrol en route to the hospital. PAST MEDICAL HISTORY: See Below PAST SURGICAL HISTORY: See Below SOCIAL HISTORY: See Below HOME MEDICATIONS: See Below ALLERGIES: See Below VITALS: See Below PHYSICAL EXAMINATION: GENERAL: Well appearing, well nourished, NAD, non-toxic. EYE EXAM: Normal conjunctiva. OROPHARYNX: Moist mucus membranes. Grossly normal dentition. NECK: Supple, LUNGS: Diminished breath sounds bilaterally HEART: Sinus tachycardia ABDOMEN: Abdomen soft, non-tender, normo-active bowel sounds, no masses, no rebound or guarding BACK: No CVA TTP. SKIN: No rashes and no bruising. UPPER EXTREMITIES: Upper extremities are grossly normal LOWER EXTREMITIES: Grossly normal, no edema. NEURO EXAM: A&O x3,, normal speech, moves all 4 extremities PSYCH: Cooperative MEDICAL DECISION MAKING: History obtained from: Patient, , EMS ER Course: Patient 78-year-old male presenting with history of COPD not on oxygen at baseline presenting with fever productive cough and not feeling well for the past 2 to 3 days time. Patient found to be febrile by EMS staff. Patient given DuoNeb treatments and Solu-Medrol on route to the hospital. Patient found to be febrile in the ER septic protocol was ordered. Patient found to have an elevated lactate and broad-spectrum antibiotics cefepime and vancomycin were ordered. Patient's chest x-ray shows new pleural effusion. Patient's EKG showed ST depressions in lateral leads with a slightly elevated troponin. Patient does not have active chest pain at this time. Patient given IV fluids of 1 L bolus. Patient did not have hypotension or lactate above 4 and did not require 30 cc/kg bolus. Labs (independently interpreted) are significant for: Elevated lactate, elevated troponin Imaging results (independently interpreted): Chest x-ray pleural effusion EKG interpretation (independently interpreted): Normal sinus rhythm ST segment depression in the lateral leads without elevation present. Medications given: Normal saline bolus, acetaminophen, DuoNeb Consultants: Hospitalist service Chronic conditions affecting care: COPD Triage Nursing notes reviewed and agree them. Vital Signs: reviewed and remarkable for: no significant abnormalities Critical care; 45 minutes. This time does not include time for procedures. Past Med/Surg History Problem List (Updated 12/18/23 @ 18:18 by Alejandro Lazar DO) COPD exacerbation (Acute) Sepsis (Acute) CAD (coronary artery disease) JOHN (acute kidney injury) Sinus node dysfunction Elevated troponin Sepsis Multifocal pneumonia Anemia (Acute) Acute exacerbation of chronic obstructive pulmonary disease (Acute) COPD exacerbation BPH w urinary obs/LUTS Hematuria Moderate persistent asthma ASCVD (arteriosclerotic cardiovascular disease) Altered mental status Confusion (Acute) Weakness (Acute) Fall (Acute) Closed femur fracture (Acute) Acute dehydration (Acute) NSVT (nonsustained ventricular tachycardia) PSVT (paroxysmal supraventricular tachycardia) Syncope (Acute) Cough (Acute) Wide-complex tachycardia (Acute) DDD (degenerative disc disease), lumbar HTN (hypertension) Cellulitis of face (Acute) Hypothyroidism Zoster ophthalmicus DVT prophylaxis Herpes zoster (Acute) Left shoulder pain Chronic anticoagulation (Chronic) Chronic right SI joint pain (Chronic) Abnormal weight loss (Acute) Ankle enthesopathy (Acute) Asthma, allergic (Acute) Atherosclerotic heart disease of [place] coronary artery without angina pectoris (Acute) Chronic bronchitis (Acute) Chronic cholecystitis (Acute) Chronic rhinitis (Acute) Cough (Acute) Deep vein thrombosis of distal lower extremity (Acute) Diverticulosis of colon (Acute) Dyslipidemia (Acute) Edema (Acute) Idiopathic scoliosis (Acute) Inflamed seborrheic keratosis (Acute) Major depressive disorder (Acute) Mediastinal adenopathy (Acute) Pleural thickening (Acute) Pleurisy (Acute) Pulmonary nodule seen on imaging study (Acute) SOB (shortness of breath) (Acute) Sleep apnea (Acute) Vitamin D deficiency (Acute) Neuritis of left ulnar nerve (Chronic) Myofascial pain (Chronic) Chronic hip pain after total replacement of right hip joint (Chronic) 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 (Chronic) Symptomatic bradycardia (Chronic) Emphysema of lung (Chronic) 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) Lumbar post-laminectomy syndrome (Chronic) DVT (deep venous thrombosis) (Chronic 01/29/14) Hypothyroidism (Chronic) COPD (chronic obstructive pulmonary disease) (Chronic) BPH (benign prostatic hyperplasia) (Chronic) Carotid stenosis (Chronic) Diastolic dysfunction (Chronic) SSS (sick sinus syndrome) (Chronic) Pacemaker (Chronic) HTN (hypertension) (Chronic) HLD (hyperlipidemia) (Chronic) Depression (Chronic) RLS (restless legs syndrome) (Chronic) History of left heart catheterization (LHC) (Chronic) Fingertip amputation (Chronic) Exertional shortness of breath (Chronic) Lung infiltrate (Chronic) Osteoarthritis of left knee (Chronic) Medical History (Updated 12/18/23 @ 18:18 by Alejandro Lazar DO) Spinal cord stimulator status Surgical History Status post insertion of spinal cord stimulator Family History Mother Heart disease Social History Smoking Status: Never smoker Tobacco Type: Cigarettes Hx Alcohol Use: No Hx Substance Use: No Preferred Language: Grenadian Communication Ability: Effective Project Administrative Assistant Required: No Beliefs That Will Affect Care: None marital status: Current Living Situation: Spouse Current Living Situation Comment: home with current occupational status: disabled Feels Safe at Home: Yes Assistive Devices: Cane, Scooter/Electric Scooter and Walker Allergies Allergies Allergy/AdvReac Type Severity Reaction Status Date / Time adhesive Allergy Intermediate SKIN Verified 12/18/23 15:44 BLISTERS latex Allergy Unknown PER Verified 12/18/23 15:44 [facility] "PT DENIES" Home Meds Home Medications Medication Instructions Recorded Confirmed acetaminophen 500 mg tablet 1,000 mg PO TID PRN Pain 03/06/23 12/18/23 (Tylenol Extra Strength) amitriptyline 25 mg tablet 50 mg PO HS 03/06/23 12/18/23 atorvastatin 80 mg tablet 80 mg PO DAILY 03/06/23 12/18/23 clopidogrel 75 mg tablet 75 mg PO QAM 03/06/23 12/18/23 duloxetine 30 mg capsule,delayed 30 mg PO QPM 03/06/23 12/18/23 release duloxetine 60 mg capsule,delayed 60 mg PO QPM 03/06/23 12/18/23 release finasteride 5 mg tablet 5 mg PO DAILY 03/06/23 12/18/23 gabapentin 300 mg capsule 300 mg PO TID 03/06/23 12/18/23 levothyroxine 75 mcg tablet 75 mcg PO DAILYBB 03/06/23 12/18/23 losartan 50 mg tablet 50 mg PO DAILY 03/06/23 12/18/23 metoprolol succinate 25 mg 37.5 mg PO DAILY 03/06/23 12/18/23 tablet,extended release 24 hr nitroglycerin 0.4 mg sublingual 0.4 mg sublingual DIRECTED PRN 03/06/23 12/18/23 tablet Chest Pain pantoprazole 40 mg tablet,delayed 40 mg PO DAILY 03/06/23 12/18/23 release sennosides 8.6 mg tablet (senna) 17.2 mg PO BID 03/06/23 12/18/23 sodium chloride 0.65 % nasal spray 2 spray intranasal QID 03/06/23 12/18/23 aerosol (Saline Nasal) tamsulosin 0.4 mg capsule 0.8 mg PO QAM 03/06/23 12/18/23 umeclidinium 62.5 mcg-vilanterol 1 ea inhalation QAM 03/06/23 12/18/23 25 mcg/actuation powdr for inhalation (Anoro Ellipta) Results & Data (ED) Vital Signs Vital Signs - 24 hr 12/18/23 12:54 12/18/23 12:54 12/18/23 12:59 Temperature 37.8 C H 37.8 C H Temperature Source Oral Oral Pulse Rate 123 H 68 Pulse Rate [Apical] 123 H Pulse Rate from SpO2 Sensor Respiratory Rate 25 H 25 H Respiratory Effort / Characteristics Spontaneous Spontaneous Short of Breath Blood Pressure 103/75 Blood Pressure [Right Arm] 103/75 Blood Pressure Mean 84 Blood Pressure Mean [Right Arm] 84 Blood Pressure Position Semi-fowlers Blood Pressure Position [Right Arm] Semi-fowlers Pulse Oximetry 93 93 Oxygen Delivery Method Room Air Room Air Sepsis Recent Fever Within 48 Hours Yes Sepsis New/Unexplained Change in Mental Status N/A Sepsis Action Taken by Nursing Physician Notified 12/18/23 13:03 12/18/23 13:15 12/18/23 13:36 Temperature Temperature Source Pulse Rate 88 Pulse Rate [Apical] Pulse Rate from SpO2 Sensor 88 95 H 118 H Respiratory Rate 16 Respiratory Effort / Characteristics Blood Pressure Blood Pressure [Right Arm] Blood Pressure Mean Blood Pressure Mean [Right Arm] Blood Pressure Position Blood Pressure Position [Right Arm] Pulse Oximetry 91 95 93 Oxygen Delivery Method Sepsis Recent Fever Within 48 Hours Sepsis New/Unexplained Change in Mental Status Sepsis Action Taken by Nursing 12/18/23 13:45 12/18/23 13:47 12/18/23 14:00 Temperature Temperature Source Pulse Rate Pulse Rate [Apical] Pulse Rate from SpO2 Sensor 114 H Respiratory Rate Respiratory Effort / Characteristics Blood Pressure 95/73 L 122/91 Blood Pressure [Right Arm] Blood Pressure Mean 75 101 Blood Pressure Mean [Right Arm] Blood Pressure Position Blood Pressure Position [Right Arm] Pulse Oximetry 92 Oxygen Delivery Method Sepsis Recent Fever Within 48 Hours Sepsis New/Unexplained Change in Mental Status Sepsis Action Taken by Nursing 12/18/23 14:03 12/18/23 14:12 12/18/23 14:15 Temperature Temperature Source Pulse Rate 125 H 131 H Pulse Rate [Apical] Pulse Rate from SpO2 Sensor 124 H 114 H Respiratory Rate 20 20 Respiratory Effort / Characteristics Blood Pressure 120/77 Blood Pressure [Right Arm] Blood Pressure Mean 92 Blood Pressure Mean [Right Arm] Blood Pressure Position Blood Pressure Position [Right Arm] Pulse Oximetry 89 L 90 Oxygen Delivery Method Sepsis Recent Fever Within 48 Hours Sepsis New/Unexplained Change in Mental Status Sepsis Action Taken by Nursing 12/18/23 14:15 12/18/23 14:18 Temperature Temperature Source Pulse Rate 116 H Pulse Rate [Apical] Pulse Rate from SpO2 Sensor 116 H Respiratory Rate 24 Respiratory Effort / Characteristics Blood Pressure 120/77 Blood Pressure [Right Arm] Blood Pressure Mean 92 Blood Pressure Mean [Right Arm] Blood Pressure Position Blood Pressure Position [Right Arm] Pulse Oximetry 91 Oxygen Delivery Method Sepsis Recent Fever Within 48 Hours Sepsis New/Unexplained Change in Mental Status Sepsis Action Taken by Nursing Laboratory Data 12/18/23 13:10 12/18/23 13:10 Lab Results 12/18/23 12/18/23 Range/Units 13:10 13:34 WBC 13.10 H (4.8-10.8) K/ul RBC 4.26 L (4.70-6.10) M/uL Hgb 13.3 L (14.0-18.0) g/dl Hct 39.0 L (42.0-52.0) % MCV 91.5 (80.0-100.0) fL MCH 31.2 (25.0-34.0) pg MCHC 34.1 (32.0-36.0) g/dL RDW Std Deviation 44.7 (36.4-46.3) fL RDW Coeff of [place] 13.4 (11.5-14.5) % Plt Count 218 (130-400) K/uL MPV 10.9 (9.4-12.4) fL Immature Gran % (Auto) 0.5 % Neut % (Auto) 75.5 % Lymph % (Auto) 11.2 % [place] % (Auto) 12.1 % Eos % (Auto) 0.5 % Baso % (Auto) 0.2 % Neut # (Auto) 9.89 H (1.40-6.50) K/uL Lymph # (Auto) 1.47 (1.20-3.40) K/uL [place] # (Auto) 1.59 H (0.11-0.59) K/uL Eos # (Auto) 0.06 (0.00-0.50) K/uL Baso # (Auto) 0.03 (0.00-0.20) K/uL Immature Gran # (Auto) 0.06 (0.01-0.20) K/uL Sodium 137 (136-145) mmol/L Potassium 3.6 (3.5-5.1) mmol/L Chloride 105 (98-107) mmol/L Carbon Dioxide 24 (21-32) mmol/L Anion Gap 8 (3-11) BUN 15 (6-23) mg/dl Creatinine 1.38 (0.6-1.4) mg/dl Est Cr Clr Drug Dosing 49.9 ml/min Est GFR ( Amer) 56.8 ml/min Est GFR (Non-Af Amer) 49.0 ml/min BUN/Creatinine Ratio 10.9 (10-20) Glucose 157 H (70-99(Fasting)) mg/dl Lactate 2.8 H* (0.4-2.0) mmol/L Calcium 9.0 (8.6-10.3) mg/dl Magnesium 1.9 (1.7-2.4) mg/dl Total Bilirubin 0.5 (0.2-1.0) mg/dl Direct Bilirubin 0.1 (0-0.2) mg/dl AST 15 (13-39) U/L ALT 14 (7-52) U/L Alkaline Phosphatase 87 (34-104) U/L Troponin I High Sens 39.2 H (0-20) pg/ml Total Protein 7.1 (6.0-8.3) gm/dl Albumin 4.1 (3.4-5.0) gm/dl Procalcitonin 0.04 (0-0.5) ng/ml SARS-CoV-2 (PCR) NEGATIVE (Negative) Influenza Type A (PCR) Negative (Neg) Influenza Type B (PCR) Negative (Neg) RSV (RT-PCR) Negative (Neg) Administered Medications Sodium Chloride (Nss) 1,000 mls @ 100 mls/hr IV .Q10H [facility] Stop: 01/17/24 15:44 Last Admin: 12/18/23 16:21 Dose: 100 mls/hr Documented By: MITA Ceftriaxone Sodium (Rocephin) 2,000 mg in 50 mls @ 100 mls/hr IV Q24H [facility] Stop: 12/25/23 16:59 Last Admin: 12/18/23 18:11 Dose: 100 mls/hr Documented By: MITA Sodium Chloride (Sodium Chloride 0.65% Na Soln 45 Ml ([place])) 2 sprays JOSÉ MIGUEL QID FELIX Stop: 01/17/24 16:59 Last Admin: 12/18/23 18:12 Dose: 2 sprays Documented By: MITA Discontinued Medications Albuterol (Albut/Ipratrop 3mg/0.5mg Neb 3 Ml Vial) 3 ml NEB NOW STA; Protocol Stop: 12/18/23 12:57 Last Admin: 12/18/23 13:06 Dose: 3 ml Documented By: DANUTA Cefepime HCl (Cefepime 2,000 Mg/20 Ml Vial) Confirm Administered Dose 2,000 mg .ROUTE .STK-MED ONE Stop: 12/18/23 14:11 Last Admin: 12/18/23 14:12 Dose: Not Given Documented By: BMK Sodium Chloride (Nss) 1,000 mls @ 999 mls/hr IV .Q1H1M FELIX Stop: 12/18/23 14:00 Last Infusion: 12/18/23 16:23 Dose: Infused Documented By: Admin: 12/18/23 13:07 Dose: 999 mls/hr Documented By: DANUTA Acetaminophen (Ofirmev) 1,000 mg in 100 mls @ 400 mls/hr IV NOW STA Stop: 12/18/23 13:10 Last Infusion: 12/18/23 14:11 Dose: Infused Documented By: Admin: 12/18/23 13:06 Dose: 400 mls/hr Documented By: DANUTA Cefepime HCl 2,000 mg/ Syringe 20 mls @ 5 mls/min IV NOW STA; Protocol Stop: 12/18/23 13:36 Last Admin: 12/18/23 14:12 Dose: 5 mls/min Documented By: DOMENICA Vancomycin HCl 1,750 mg/ (Sodium Chloride) 535 mls @ 200 mls/hr IV NOW ONE Stop: 12/18/23 16:13 Last Infusion: 12/18/23 17:10 Dose: Infused Documented By: Admin: 12/18/23 14:16 Dose: 200 mls/hr Documented By: DOMENICA Methylprednisolone (Methylprednisolone 125 Mg/2 Ml Vial) 40 mg IV NOW STA Stop: 12/18/23 16:01 Last Admin: 12/18/23 16:21 Dose: 40 mg Documented By: MITA Imaging Data Radiologist's Impression: Chest X-Ray 12/18/23 12:54 SINGLE VIEW CHEST CLINICAL HISTORY: Sepsis FINDINGS: An AP, portable, upright chest radiograph is compared to study dated 03/06/2023. The examination is degraded by portable technique and apical lordotic positioning. A 2-lead cardiac pacemaker partially obscures the left upper chest. The heart is enlarged. There is pulmonary vascular congestion and mild interstitial edema. Small pleural effusions are suspected with dependent atelectasis. No pneumothorax is seen. The skeletal structures are osteopenic. The bony thorax is grossly intact. Arthritic change is seen in the shoulders and spine. Intrathecal leads project over the thoracic spine. Cholecystectomy clips are noted in the right upper quadrant. IMPRESSION: 1. Cardiomegaly and cardiac pacemaker with evidence of congestive failure. 2. Suspect small pleural effusions. ACT 112: Negative or not required by law. Electronically signed by: Geoffrey Auguste M.D. 12/18/2023 1:[address] 12/18/23 14:24 CT chest diagnostic wo con CLINICAL HISTORY: SOB, wheezing, fever- r/o PNA TECHNIQUE: Multidetector row helical CT of the chest was performed. Coronal and sagittal reformations were obtained. Automated dose lowering techniques and/or adjustment according to patient size were utilized for this exam. CT DOSE: 818.24 mGy.cm Comparison: Comparison is made to CT chest 02/24/2020 an chest radiograph 12/18/2023 FINDINGS: Lungs and pleura: Atelectasis versus scarring is seen in the dependent portions of the lungs. [place] and consolidative opacities in the right greater than left upper lobe. Postsurgical changes of left upper lobe wedge resection noted. Heart and pericardium: There is cardiomegaly without evidence of pericardial effusion. Vessels: Severe atherosclerotic changes in the aorta and coronary arteries. Ascending aortic aneurysm measures 45 mm in diameter. Mediastinum and [place]: Enlarged lymph nodes measure up to 13 mm in diameter. Chest wall and lower neck: Unremarkable. Abdomen: Patient is status post cholecystectomy. Bones: Degenerative changes in the thoracic spine. Spinal stimulator is seen. IMPRESSION: Findings are compatible with multifocal pneumonia and reactive lymph nodes. ACT 112: Negative or not required by law. Electronically signed by: Eduardo Salinas M.D. 12/18/2023 3:43 PM Discharge Plan Visit Data Chief Complaint: Illness Stated Complaint: ILLNESS ED Provider: Alejandro Lazar Discharge Problem: Sepsis, COPD exacerbation Patient Disposition: Admitted As Inpatient Discharge Instructions Interventions: ED Discharge Assessment Last Done: 12/18/23 16:01
[2023-12-18] MEDS: ALBUT/IPRATROP 3MG/0.5MG NEB 3 ML VIAL NEB STA (13:06)
[2023-12-18] MEDS: ACETAMINOPHEN 1,000 MG/100 ML VIAL IV STA (13:06)
[2023-12-18] MEDS: SODIUM CHLORIDE 0.9% 1,000 ML IV SCH ×2 (13:07→16:21)
[2023-12-18] MEDS ORDERED: VANCOMYCIN CONSULT ACTIVE PRN (13:33)
[2023-12-18 13:39] LABS: Basophils # (auto) 0.03 K/uL (0.00-0.20); Basophils % (auto) 0.2 %; Eosinophils # (auto) 0.06 K/uL (0.00-0.50); Eosinophils % (auto) 0.5 %; Hemoglobin 13.3 g/dl (14.0-18.0); Immature Granulocytes # (auto) 0.06 K/uL (0.01-0.20); Immature Granulocytes % (auto) 0.5 %; Lymphocytes # (auto) 1.47 K/uL (1.20-3.40); Lymphocytes % (auto) 11.2 %; Mean Corpuscular Hemoglobin 31.2 pg (25.0-34.0); Mean Corpuscular Hgb Conc 34.1 g/dL (32.0-36.0); Mean Corpuscular Volume 91.5 fL (80.0-100.0); Mean Platelet Volume 10.9 fL (9.4-12.4); Monocytes # (auto) 1.59 K/uL (0.11-0.59); Monocytes % (auto) 12.1 %; Neutrophils # (auto) 9.89 K/uL (1.40-6.50); Neutrophils % (auto) 75.5 %; Platelet Count 218 K/uL (130-400); RDW Coefficient of Variation 13.4 % (11.5-14.5); RDW Standard Deviation 44.7 fL (36.4-46.3); Red Blood Count 4.26 M/uL (4.70-6.10)
--- NOTE | 2023-12-18 13:42 | XRay Report ---
SINGLE VIEW CHEST CLINICAL HISTORY: Sepsis FINDINGS: An AP, portable, upright chest radiograph is compared to study dated 03/06/2023. The examina tion is degraded by portable technique and apical lordotic positioning. A 2-lead cardiac pacemaker pa rtially obscures the left upper chest. The heart is enlarged. There is pulmonary vascular congestion and mild interstitial edema. Small pleural effusions are suspected with dependent atelectasis. No pne umothorax is seen. The skeletal structures are osteopenic. The bony thorax is grossly intact. Arthrit ic change is seen in the shoulders and spine. Intrathecal leads project over the thoracic spine. Chol ecystectomy clips are noted in the right upper quadrant. IMPRESSION: 1. Cardiomegaly and cardiac pacemaker with evidence of congestive failure. 2. Suspect small pleural effusions. ACT 112: Negative or not required by law. Electronically signed by: Geoffrey Auguste M.D. 12/18/2023 1:41 PM
[2023-12-18 13:46] LABS: Albumin Level 4.1 gm/dl (3.4-5.0); BUN Creatinine Ratio 10.9 (10-20); Bilirubin Direct 0.1 mg/dl (0-0.2); Bilirubin,Total 0.5 mg/dl (0.2-1.0); Creatinine Clr Calc Pharmacy 49.9 ml/min; Est GFR (African American) 56.8 ml/min; Magnesium 1.9 mg/dl (1.7-2.4); Potassium 3.6 mmol/L (3.5-5.1); Total Protein 7.1 gm/dl (6.0-8.3)
[2023-12-18 13:53] LABS: Troponin I High Sensitivity 39.2 pg/ml (0-20)
[2023-12-18] MEDS: CEFEPIME 2,000 MG in SYRINGE 0 ML IV STA (14:12)
[2023-12-18] MEDS: CEFEPIME 2,000 MG/20 ML VIAL ONE (14:12)
[2023-12-18] MEDS: VANCOMYCIN HCL 1,750 MG in SODIUM CHLORIDE 0.9% 500 ML IV ONE (14:16)
--- NOTE | 2023-12-18 14:28 | History & Physical Report ---
Date of Service December 18, 2023 Assessment & Plan (1) Multifocal pneumonia: (2) Acute exacerbation of chronic obstructive pulmonary disease: (3) Sepsis: Plan: Patient is 78-year-old male with PMH COPD, asthma, bronchiectasis, HTN, HLD, sinus node dysfunction s/p pacemaker, CAD s/p balloon angioplasty 2017, SVT, GERD, BPH, RLS, depression, chronic back pain and others listed below presented to ER with c/o increased SOB and cough x couple of days In ER T: 37.8C, P: 123, R: 25, BP: 103/75, 93% on RA. WBC: 13. Procalcitonin: 0.04, Lactate: 2.8-->3.2. Negative RSV, influenza, COVID-19 PCR CXR: Cardiomegaly and cardiac pacemaker with evidence of congestive failure. Suspect small pleural effusions. In ER given 1L NSS, Cefepime, vancomycin Reassessment P: 116, R: 24, BP: 120/77, 91% on RA. Lungs diminished with scattered wheezing, tachycardia regular rhythm, brisk capillary refill. Further reassessment at 15:55 HR: 73, R: 20, Pulse ox 91% RA. Patient responded well to initial IVF bolus Blood cultures pending UA pending MRSA swab pending [employer] respiratory panel pending, sputum culture pending CT chest: compatible with multifocal pneumonia and reactive lymph nodes Trend lactate IVF Continue cefepime, vancomycin, likely transition to Rocephin, doxycycline Solumedrol Continue home inhaler Xopenex nebulizer Guaifenesin, incentive spirometer, flutter valve CBC, BMP in am Consider pulmonology consult if no improvement (4) Elevated troponin: Plan: Initial Troponin: 39. Repeat EKG with t wave inversions anterior leads without acute ST elevation Trend troponin Likely demand ischemia from tachycardia Denies CP or palpitations Echo Continue Plavix, metoprolol succinate, atorvastatin Consider cardiology consult if worsening (5) PSVT (paroxysmal supraventricular tachycardia): Plan: History PSVT Initial EKG sinus tachycardia vs ?SVT. Rate was 125. Repeat EKG with paced rhythm t wave inversion anterior lead per my interprettation Monitor on telemetry pacemaker interrogation Continue metoprolol succinate If recurrent SVT plan cardiology consult (6) Sinus node dysfunction: (7) Pacemaker: Plan: Pacemaker interrogation (8) JOHN (acute kidney injury): Plan: BUN: 15, Cr: 1.38, GFR: 49. Baseline Cr: 1.1 with GFR: 66-70 Gentle IVF Monitor renal functions (9) CAD (coronary artery disease): Plan: S/P balloon angioplasty in 2017 Workup as above Continue Plavix, atorvastatin, metoprolol succinate (10) HTN (hypertension): Plan: BP Stable Continue losartan, metoprolol succinate with holding parameters (11) BPH (benign prostatic hyperplasia): Plan: Continue tamsulosin, finasteride (12) Hypothyroidism: Plan: TSH pending Continue levothyroxine DVT Prophylaxis Heparin SQ DNR/DNI as per discussion with pt Follows with Dr Escudero for routine care Pt was seen and care coordinated with Dr Wild. See addendum I spent a total of 79 minutes reviewing notes, outpatient records, labs, medication, coordinating, documenting and providing care for this patient excluding time spent in the performance of separately billed services. History of Present Illness Chief Complaint: SOB Primary Care Provider: Guera Escudero MD Patient is 78-year-old male with PMH COPD, asthma, bronchiectasis, HTN, HLD, sinus node dysfunction s/p pacemaker, CAD s/p balloon angioplasty 2017, SVT, GERD, BPH, RLS, depression, chronic back pain and others listed below presented to ER with c/o SOB. States increased SOB and increased cough x couple of days. History obtained from patient, family, inpatient and outpatient chart review. He states he also noticed increased wheezing past several days. Reports chronic cough usually productive but unsure of coloration of sputum as "doesn't really pay attention". Today feeling more SOB and coughing more and his cousin thought he should be evaluated at ER. He doesn't feel he has had increased sputum production. Today had episode of post tussive emesis. Denies vomiting otherwise. Patient states he is [place] outdoor [place] since yesterday. He has not been around farm animals. He is unaware of any sick contacts. Patient states uses oxygen at home as needed and typically uses at least once a day and sometimes uses at night. He thinks he might use 4L O2 but is unsure. States that he has daily inhaler but doesn't use rescue inhalers or nebulizers "much". He is unaware of any fever or chills at home. Denies any chest pains or palpitations today. Has chronic BLE pain and states doesn't ambulate much but when he does he has baseline SOB. Denies diaphoresis, diarrhea, constipation, RAMIREZ, dizziness, syncope, vision changes, neck pain, palpitations, hemoptysis, sore throat, otalgia, increased rhinorrhea, abdominal pain, paresthesias, extremity weakness, extremity edema, rashes, urinary symptoms. Allergies Allergy/AdvReac Type Severity Reaction Status Date / Time adhesive Allergy Intermediate SKIN Verified 12/18/23 15:44 BLISTERS latex Allergy Unknown PER Verified 12/18/23 15:44 [facility] "PT DENIES" Home Medications Medication Instructions Recorded Confirmed Type acetaminophen 500 mg tablet 1,000 mg PO TID PRN Pain 03/06/23 12/18/23 History (Tylenol Extra Strength) amitriptyline 25 mg tablet 50 mg PO HS 03/06/23 12/18/23 History atorvastatin 80 mg tablet 80 mg PO DAILY 03/06/23 12/18/23 History clopidogrel 75 mg tablet 75 mg PO QAM 03/06/23 12/18/23 History duloxetine 30 mg capsule,delayed 30 mg PO QPM 03/06/23 12/18/23 History release duloxetine 60 mg capsule,delayed 60 mg PO QPM 03/06/23 12/18/23 History release finasteride 5 mg tablet 5 mg PO DAILY 03/06/23 12/18/23 History gabapentin 300 mg capsule 300 mg PO TID 03/06/23 12/18/23 History levothyroxine 75 mcg tablet 75 mcg PO DAILYBB 03/06/23 12/18/23 History losartan 50 mg tablet 50 mg PO DAILY 03/06/23 12/18/23 History metoprolol succinate 25 mg 37.5 mg PO DAILY 03/06/23 12/18/23 History tablet,extended release 24 hr nitroglycerin 0.4 mg sublingual 0.4 mg sublingual DIRECTED PRN 03/06/23 12/18/23 History tablet Chest Pain pantoprazole 40 mg tablet,delayed 40 mg PO DAILY 03/06/23 12/18/23 History release sennosides 8.6 mg tablet (senna) 17.2 mg PO BID 03/06/23 12/18/23 History sodium chloride 0.65 % nasal spray 2 spray intranasal QID 03/06/23 12/18/23 History aerosol (Saline Nasal) tamsulosin 0.4 mg capsule 0.8 mg PO QAM 03/06/23 12/18/23 History umeclidinium 62.5 mcg-vilanterol 1 ea inhalation QAM 03/06/23 12/18/23 History 25 mcg/actuation powdr for inhalation (Anoro Ellipta) Past Med/Surg History Problem List (Updated 12/18/23 @ 15:52 by Marcie Stone PA-C) CAD (coronary artery disease) JOHN (acute kidney injury) Sinus node dysfunction Elevated troponin Sepsis Multifocal pneumonia Anemia (Acute) Acute exacerbation of chronic obstructive pulmonary disease (Acute) COPD exacerbation BPH w urinary obs/LUTS Hematuria Moderate persistent asthma ASCVD (arteriosclerotic cardiovascular disease) Altered mental status Confusion (Acute) Weakness (Acute) Fall (Acute) Closed femur fracture (Acute) Acute dehydration (Acute) NSVT (nonsustained ventricular tachycardia) PSVT (paroxysmal supraventricular tachycardia) Syncope (Acute) Cough (Acute) Wide-complex tachycardia (Acute) DDD (degenerative disc disease), lumbar HTN (hypertension) Cellulitis of face (Acute) Hypothyroidism Zoster ophthalmicus DVT prophylaxis Herpes zoster (Acute) Left shoulder pain Chronic anticoagulation (Chronic) Chronic right SI joint pain (Chronic) Abnormal weight loss (Acute) Ankle enthesopathy (Acute) Asthma, allergic (Acute) Atherosclerotic heart disease of [place] coronary artery without angina pectoris (Acute) Chronic bronchitis (Acute) Chronic cholecystitis (Acute) Chronic rhinitis (Acute) Cough (Acute) Deep vein thrombosis of distal lower extremity (Acute) Diverticulosis of colon (Acute) Dyslipidemia (Acute) Edema (Acute) Idiopathic scoliosis (Acute) Inflamed seborrheic keratosis (Acute) Major depressive disorder (Acute) Mediastinal adenopathy (Acute) Pleural thickening (Acute) Pleurisy (Acute) Pulmonary nodule seen on imaging study (Acute) SOB (shortness of breath) (Acute) Sleep apnea (Acute) Vitamin D deficiency (Acute) Neuritis of left ulnar nerve (Chronic) Myofascial pain (Chronic) Chronic hip pain after total replacement of right hip joint (Chronic) 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 (Chronic) Symptomatic bradycardia (Chronic) Emphysema of lung (Chronic) 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) Lumbar post-laminectomy syndrome (Chronic) DVT (deep venous thrombosis) (Chronic 01/29/14) Hypothyroidism (Chronic) COPD (chronic obstructive pulmonary disease) (Chronic) BPH (benign prostatic hyperplasia) (Chronic) Carotid stenosis (Chronic) Diastolic dysfunction (Chronic) SSS (sick sinus syndrome) (Chronic) Pacemaker (Chronic) HTN (hypertension) (Chronic) HLD (hyperlipidemia) (Chronic) Depression (Chronic) RLS (restless legs syndrome) (Chronic) History of left heart catheterization (LHC) (Chronic) Fingertip amputation (Chronic) Exertional shortness of breath (Chronic) Lung infiltrate (Chronic) Osteoarthritis of left knee (Chronic) Medical History (Updated 12/18/23 @ 15:52 by Marcie Stone PA-C) Spinal cord stimulator status Surgical History Status post insertion of spinal cord stimulator Family History Mother Heart disease Social History Smoking Status: Never smoker Tobacco Type: Cigarettes Hx Alcohol Use: No Hx Substance Use: No Preferred Language: French Communication Ability: Effective Retail Seasonal Specialist Required: No Beliefs That Will Affect Care: None marital status: Current Living Situation: Spouse Current Living Situation Comment: home with current occupational status: disabled Feels Safe at Home: Yes Assistive Devices: Cane, Scooter/Electric Scooter and Walker Review of Systems Review of Systems: All systems reviewed & are unremarkable except as noted in HPI & below Physical Exam Physical Exam: General: +intermittent coughing with some tachypnea but when cough subsides appears in no apparent respiratory distress, overweight Head: normocephalic, atraumatic Eyes: conjunctiva non-injected, anicteric ENT: normal inspection external ears, nose, mucous membranes moist Neck: supple, trachea midline Lungs: +intermittent coughing with some tachypnea but when cough subsides appears in no apparent respiratory distress, +diminished breath sounds at bases, +wheezing throughout, no rales noted CV: +tachycardia rate 110, regular rhythm, no pretibial edema Abd: protuberant, normal BS, soft, non-tender Ext: no cyanosis, no calf tenderness Neuro: A&O x 3, no focal deficits noted, normal affect Skin: warm, dry Results & Data Results & Data Vital Signs (Past 12 Hours) Vital Signs Temp Pulse Pulse Resp BP BP Pulse Ox 12/18/23 12:59 68 12/18/23 12:54 37.8 C H 123 H 25 H 103/75 93 12/18/23 12:54 37.8 C H 123 H 25 H 103/75 93 O2 Del Method 12/18/23 12:59 12/18/23 12:54 Room Air 12/18/23 12:54 Room Air Laboratory Results Short CBC 12/18/23 Range/Units 13:10 WBC 13.10 H (4.8-10.8) K/ul Hgb 13.3 L (14.0-18.0) g/dl Hct 39.0 L (42.0-52.0) % Plt Count 218 (130-400) K/uL BMP 12/18/23 13:10 Sodium 137 Potassium 3.6 Chloride 105 Carbon Dioxide 24 BUN 15 Creatinine 1.38 Glucose 157 H Calcium 9.0 Liver Function 12/18/23 Range/Units 13:10 Total Bilirubin 0.5 (0.2-1.0) mg/dl Direct Bilirubin 0.1 (0-0.2) mg/dl AST 15 (13-39) U/L ALT 14 (7-52) U/L Alkaline Phosphatase 87 (34-104) U/L Albumin 4.1 (3.4-5.0) gm/dl Diagnostic Findings Chest X-Ray 12/18/23 12:54 SINGLE VIEW CHEST CLINICAL HISTORY: Sepsis FINDINGS: An AP, portable, upright chest radiograph is compared to study dated 03/06/2023. The examination is degraded by portable technique and apical lordotic positioning. A 2-lead cardiac pacemaker partially obscures the left upper chest. The heart is enlarged. There is pulmonary vascular congestion and mild interstitial edema. Small pleural effusions are suspected with dependent atelectasis. No pneumothorax is seen. The skeletal structures are osteopenic. The bony thorax is grossly intact. Arthritic change is seen in the shoulders and spine. Intrathecal leads project over the thoracic spine. Cholecystectomy clips are noted in the right upper quadrant. IMPRESSION: 1. Cardiomegaly and cardiac pacemaker with evidence of congestive failure. 2. Suspect small pleural effusions. ACT 112: Negative or not required by law. Electronically signed by: Geoffrey Auguste M.D. 12/18/2023 1:41 PM Supervising Physician Co-Signing Physician Notes Patient was seen and examined independently at bedside. Chart reviewed. Case discussed with Marcie PRESTON and agree with the documentation above. In summary, this is a 78 year old male who is being admitted for multifocal PNA and COPD exacerbation. Met sepsis criteria with leucocytosis, tachycardia, elevated lactate. Vitals, labs and imaging reviewed. CT with multifocal PNA. WBC 13 , [place] 3.2, procal negative.On exam, lying in bed, AAO, not in acute distress, on 2 L NC saturating 92-93%, scattered wheezes on exam, regular heart sounds, abd benign, no edema. Will admit for CAP and COPD exacerbation- will start on ceftriaxone, doxy, nebs, inhaler, mucinex, iv solumedrol, ivf. Check MRSA nare and sputum clx. Follow up on blood clx. Had SVT in ED now resolved. Pacemaker interrogation shows 7% V paced, 89% A paced, with several episodes of SVTs in 130-140s over past several weeks, 2.5 yr battery life and leads look good. A copy of the report will be sent to Dr Bangura per the low voltage technician who interrogated the pacer. Consult cardio. Rest as per the note above.
[2023-12-18 14:54] LABS: Influenza A virus by PCR Negative (Neg); Influenza B virus by PCR Negative (Neg); RSV by PCR Negative (Neg); SARS CoV2 RNA(COVID-19) Ceph NEGATIVE (Negative)
--- NOTE | 2023-12-18 15:00 | Electrocardiogram Report ---
Test Reason : Blood Pressure : / mmHG Vent. Rate : 125 BPM Atrial Rate : 000 BPM P-R Int : 000 ms QRS Dur : 106 ms QT Int : 326 ms P-R-T Axes : 000 -24 124 degrees QTc Int : 470 ms Supraventricular tachycardia Probable Accelerated Junctional rhythm with retrograde conduction Left ventricular hypertrophy with repolarization abnormality ( R in aVL , [place] product ) Abnormal ECG When compared with ECG of 06-MAR-2023 17:29, Supraventricular tachycardia has replaced Electronic atrial pacemaker Vent. rate has increased BY 60 BPM Confirmed by Fco Ashby ([id number]) on 12/18/2023 2:59:55 PM Referred By: Guera Escudero Confirmed By:Fco Ashby
--- NOTE | 2023-12-18 15:45 | CT Scan Report ---
CT chest diagnostic wo con CLINICAL HISTORY: SOB, wheezing, fever- r/o PNA TECHNIQUE: Multidetector row helical CT of the chest was performed. Coronal and sagittal reformations were obtained. Automated dose lowering techniques and/or adjustment according to patient size were u tilized for this exam. CT DOSE: 818.24 mGy.cm Comparison: Comparison is made to CT chest 02/24/2020 an chest radiograph 12/18/2023 FINDINGS: Lungs and pleura: Atelectasis versus scarring is seen in the dependent portions of the lungs. [place] and consolidative opacities in the right greater than left upper lobe. Postsurgical changes of l eft upper lobe wedge resection noted. Heart and pericardium: There is cardiomegaly without evidence of pericardial effusion. Vessels: Severe atherosclerotic changes in the aorta and coronary arteries. Ascending aortic aneurysm measures 45 mm in diameter. Mediastinum and [place]: Enlarged lymph nodes measure up to 13 mm in diameter. Chest wall and lower neck: Unremarkable. Abdomen: Patient is status post cholecystectomy. Bones: Degenerative changes in the thoracic spine. Spinal stimulator is seen. IMPRESSION: Findings are compatible with multifocal pneumonia and reactive lymph nodes. ACT 112: Negative or not required by law. Electronically signed by: Eduardo Salinas M.D. 12/18/2023 3:43 PM
[2023-12-18 15:46] LABS: Troponin I High Sensitivity 47.9 pg/ml (0-20)
[2023-12-18 15:55] LABS: Thyroid Stimulating Hormone 1.527 uIu/ml (0.300-4.500)
--- NOTE | 2023-12-18 15:57 | Electrocardiogram Report ---
Test Reason : Blood Pressure : / mmHG Vent. Rate : 067 BPM Atrial Rate : 067 BPM P-R Int : 256 ms QRS Dur : 102 ms QT Int : 414 ms P-R-T Axes : -16 -20 147 degrees QTc Int : 437 ms Atrial-paced rhythm with prolonged AV conduction Left ventricular hypertrophy with repolarization abnormality ( R in aVL , [place] product ) Abnormal ECG When compared with ECG of 18-DEC-2023 12:49, Electronic atrial pacemaker has replaced Supraventricular tachycardia Vent. rate has decreased BY 58 BPM T wave inversion now evident in Anterior leads Confirmed by Fco Ashby ([id number]) on 12/18/2023 3:57:16 PM Referred By: Guera Escudero Confirmed By:Fco Ashby
[2023-12-18 16:18] LABS: Appearance Urine Clear (Clear); Bacteria Urine Automated None Seen (None Seen); Bilirubin Urine Negative (Negative); Blood Urine Negative (Negative); Cast Urine Automated 0-2 /lpf (0-2); Color Urine Yellow; Epithelial Cell Urine Auto 0-2 /hpf (0-2); Glucose Urine UA Trace (Negative); Ketones Urine Negative (Negative); Leukocyte Esterase Urine Trace (Negative); Nitrite Urine Negative (Negative); Protein Urine Negative (Negative); RBC Urine Automated 0-2 /hpf (0-2); Specific Gravity Urine 1.016 (1.000-1.030); Urobilinogen Urine Negative (Negative); WBC Urine Automated 0-5 /hpf (0-5); pH Urine 6.5 (4.5-7.5)
[2023-12-18] MEDS: methylPREDNISolone 125 MG/2 ML VIAL IV STA (16:21)
[2023-12-18] MEDS ORDERED: LEVALBUTEROL 1.25 MG/3 ML NEB NEB PRN (16:53)
[2023-12-18] MEDS ORDERED: POLYETHYLENE (MIRALAX) 17 GM PACK PO PRN (16:53)
[2023-12-18] MEDS ORDERED: ONDANSETRON INJ 2 MG/ML 2 ML VIAL IV PRN (16:53)
[2023-12-18 17:11] LABS: Adenovirus PCR Not Detected (NotDetected); Bordetella parapertussis PCR Not Detected (NotDetected); Bordetella pertussis PCR Not Detected (NotDetected); Chlamydia pneumoniae PCR Not Detected (NotDetected); Coronavirus 229E PCR Not Detected (NotDetected); Coronavirus CoV-2 (COVID19)PCR Not Detected (NotDetected); Coronavirus HKU1 PCR Not Detected (NotDetected); Coronavirus NL63 PCR Not Detected (NotDetected); Coronavirus OC43PCR Not Detected (NotDetected); Human Metapneumovirus PCR Not Detected (NotDetected); Influenza A PCR Not Detected (NotDetected); Influenza B PCR Not Detected (NotDetected); Mycoplasma pneumoniae PCR Not Detected (NotDetected); Parainfluenza Virus 1 PCR Not Detected (NotDetected); Parainfluenza Virus 2 PCR Not Detected (NotDetected); Parainfluenza Virus 3 PCR Not Detected (NotDetected); Parainfluenza Virus 4 PCR Not Detected (NotDetected); Respiratory Syncytial VirusPCR Not Detected (NotDetected); Rhinovirus/Enterovirus PCR Not Detected (NotDetected)
--- NOTE | 2023-12-18 17:55 | Cardiology Consultation ---
Date of Consultation December 18, 2023 Assessment & Plan (1) PSVT (paroxysmal supraventricular tachycardia): (2) Multifocal pneumonia: Plan Patient presents with sepsis, multifocal pneumonia noted on CT scan, lactic acidosis noted, lactate level of 3.2 mmol/L on presentation. Noted to be in SVT on initial presentation with spontaneous conversion to sinus rhythm, transient ventricular paced rhythm noted on telemetry, now in sinus rhythm with atrial pacing. The patient's EKG is abnormal with lateral T wave inversions, however this is a chronic finding. Has known coronary heart disease, unsuccessful revascularization of high-grade mid LAD stenosis at time of cardiac cathete rization in 2016 for which medical management has been pursued in the interim with chronic clopidogrel therapy. Continue clopidogrel 75 mg daily, prior to hospital treatment with metoprolol succinate 37.5 mg by mouth daily for now. Remote pacemaker interrogation already performed, will review data and further recommendations will be forthcoming to that regard. Agree with broad-spectrum antibiotics, use of Xopenex, supplemental oxygen. 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 A repeat echocardiogram has been requested and will be reviewed. Patient's initial troponin is mildly elevated, likely due to myocardial strain in the setting of his pneumonia and tachycardia. I do not think his presentation is suggestive of an acute coronary syndrome. No symptoms of angina recently or at present per my discussion with the patient. History of Present Illness Attending Physician: Enrique Wild MD History of Present Illness Mr Shaver is a 78-year-old male seen in cardiology consultation per the request of Marcie Stone PA-C for the evaluation of supraventricular tachycardia. Patient seen in the emergency department, room C3. Accompanied by his spouse at the bedside as well as another family friend. He had been to a recent music festival and was camping in a camper. He has had progressive shortness of breath and cough. He has a chronic cough, and uses supplemental oxygen on an as-needed basis. Due to worsening respiratory status family brought him to the emergency department. He has been found to be febrile with most recent temperature of 37.8 C. Although his initial chest x-ray raise concerns for possible congestive heart failure, follow-up CT of the chest revealed multifocal pneumonia. On arrival to the hospital, supraventricular tachycardia with rate of 125 bpm captured on EKG and telemetry with T wave changes in the high lateral leads I, aVL in the lateral precordial leads. The patient spontaneously converted to sinus rhythm and is now in an atrial paced rhythm at 67 bpm, with ongoing lateral repolarization abnormalities. Per review of historic EKG tracings, the lateral repolarization abnormalities are chronic with having previously been observed in February, as well as outpatient EKG within the [facility] system dating back to 10/09/2022 which is similar to the repeat EKG performed today at 1543. During my assessment patient was in no acute distress having received a course of Solu-Medrol and levo albuterol. First dose of IV vancomycin infusion is already been completed. Past Medical History: 1. Symptomatic bradycardia prompting implantation of dual-chamber permanent pacemaker in 2015 2. Coronary heart disease, [place] [facility] [place] for the indication of unstable angina with a proximal 50% LAD lesion that was hemodynamically significant by FFR. There was a 99% mid LAD lesion, small caliber vessel for which balloon angioplasty was performed, attempts were made to pass a 2.25 mm stent however PCI unsuccessful as the stent could not be passed beyond the proximal portion of the stenosis due to small vessel size and an acute angle of the culprit lesion and therefore medical management pursued 3. Diastolic dysfunction 4. COPD 5. Hypertension 6. Dyslipidemia 7. Chronic ambulatory dysfunction 8. SVT noted on previous pacemaker interrogations and during hospital stay, Oct, 2022 Allergies Allergy/AdvReac Type Severity Reaction Status Date / Time adhesive Allergy Intermediate SKIN Verified 12/18/23 15:44 BLISTERS latex Allergy Unknown PER Verified 12/18/23 15:44 [facility] "PT DENIES" Home Medications Medication Instructions Recorded Confirmed Type acetaminophen 500 mg tablet 1,000 mg PO TID PRN Pain 03/06/23 12/18/23 History (Tylenol Extra Strength) amitriptyline 25 mg tablet 50 mg PO HS 03/06/23 12/18/23 History atorvastatin 80 mg tablet 80 mg PO DAILY 03/06/23 12/18/23 History clopidogrel 75 mg tablet 75 mg PO QAM 03/06/23 12/18/23 History duloxetine 30 mg capsule,delayed 30 mg PO QPM 03/06/23 12/18/23 History release duloxetine 60 mg capsule,delayed 60 mg PO QPM 03/06/23 12/18/23 History release finasteride 5 mg tablet 5 mg PO DAILY 03/06/23 12/18/23 History gabapentin 300 mg capsule 300 mg PO TID 03/06/23 12/18/23 History levothyroxine 75 mcg tablet 75 mcg PO DAILYBB 03/06/23 12/18/23 History losartan 50 mg tablet 50 mg PO DAILY 03/06/23 12/18/23 History metoprolol succinate 25 mg 37.5 mg PO DAILY 03/06/23 12/18/23 History tablet,extended release 24 hr nitroglycerin 0.4 mg sublingual 0.4 mg sublingual DIRECTED PRN 03/06/23 12/18/23 History tablet Chest Pain pantoprazole 40 mg tablet,delayed 40 mg PO DAILY 03/06/23 12/18/23 History release sennosides 8.6 mg tablet (senna) 17.2 mg PO BID 03/06/23 12/18/23 History sodium chloride 0.65 % nasal spray 2 spray intranasal QID 03/06/23 12/18/23 History aerosol (Saline Nasal) tamsulosin 0.4 mg capsule 0.8 mg PO QAM 03/06/23 12/18/23 History umeclidinium 62.5 mcg-vilanterol 1 ea inhalation QAM 03/06/23 12/18/23 History 25 mcg/actuation powdr for inhalation (Anoro Ellipta) Patient History Medical History Spinal cord stimulator status Surgical History Status post insertion of spinal cord stimulator Family History Mother Heart disease Social History Smoking Status: Never smoker Tobacco Type: Cigarettes Hx Alcohol Use: No Hx Substance Use: No Preferred Language: Micronesian Communication Ability: Effective Supervisor Hospitality House Required: No Beliefs That Will Affect Care: None marital status: Current Living Situation: Spouse Current Living Situation Comment: home with current occupational status: disabled Feels Safe at Home: Yes Assistive Devices: Cane, Scooter/Electric Scooter and Walker Review of Systems Review of Systems: All systems reviewed & are unremarkable except as noted in HPI & below Physical Exam Physical Exam: General: Ill in appearance without acute distress Eyes: conjunctiva are pink and non-injected, sclera clear Neck: normal jugular venous pulse, no hepatojugular reflux Chest: normal shape and normal respiratory effort Lungs: Coarse breath sounds noted at the bases Cardiac Exam: - regular heart sounds 1/6 systolic murmur, rubs, or gallops, no jugular venous distention Abdomen: abdomen soft, non-tender, no abnormal masses and no hepatosplenomegaly Musculoskeletal: no gait disturbance, no weakness Extremities: no edema and no cyanosis Neuro:awake, conversant, follows commands, no focal motor deficits Psych: appropriate affect and insight. Results & Data Vital Signs (Past 12 Hours) Vital Signs Temp Pulse Pulse Resp BP BP Pulse Ox 12/18/23 17:05 85 12/18/23 16:21 70 18 116/53 L 93 12/18/23 14:18 116 H 24 91 12/18/23 14:15 120/77 12/18/23 14:15 120/77 12/18/23 14:12 131 H 20 90 12/18/23 14:03 125 H 20 89 L 12/18/23 14:00 122/91 12/18/23 13:47 95/73 L 12/18/23 13:45 92 12/18/23 13:36 93 12/18/23 13:15 95 12/18/23 13:03 88 16 91 12/18/23 12:59 68 12/18/23 12:54 37.8 C H 123 H 25 H 103/75 93 12/18/23 12:54 37.8 C H 123 H 25 H 103/75 93 O2 Del Method O2 Flow Rate 12/18/23 17:05 12/18/23 16:21 Nasal Cannula 2 12/18/23 14:18 12/18/23 14:15 12/18/23 14:15 12/18/23 14:12 12/18/23 14:03 12/18/23 14:00 12/18/23 13:47 12/18/23 13:45 12/18/23 13:36 12/18/23 13:15 12/18/23 13:03 12/18/23 12:59 12/18/23 12:54 Room Air 12/18/23 12:54 Room Air Laboratory Results Cardiac Enzymes 12/18/23 12/18/23 Range/Units 13:10 15:07 AST 15 (13-39) U/L Troponin I High Sens 39.2 H 47.9 H (0-20) pg/ml CBC 12/18/23 Range/Units 13:10 WBC 13.10 H (4.8-10.8) K/ul RBC 4.26 L (4.70-6.10) M/uL Hgb 13.3 L (14.0-18.0) g/dl Hct 39.0 L (42.0-52.0) % Plt Count 218 (130-400) K/uL Neut # (Auto) 9.89 H (1.40-6.50) K/uL Lymph # (Auto) 1.47 (1.20-3.40) K/uL Cobb # (Auto) 1.59 H (0.11-0.59) K/uL Eos # (Auto) 0.06 (0.00-0.50) K/uL Baso # (Auto) 0.03 (0.00-0.20) K/uL Comprehensive Metabolic Panel 12/18/23 Range/Units 13:10 Sodium 137 (136-145) mmol/L Potassium 3.6 (3.5-5.1) mmol/L Chloride 105 (98-107) mmol/L Carbon Dioxide 24 (21-32) mmol/L BUN 15 (6-23) mg/dl Creatinine 1.38 (0.6-1.4) mg/dl Glucose 157 H (70-99(Fasting)) mg/dl Calcium 9.0 (8.6-10.3) mg/dl Direct Bilirubin 0.1 (0-0.2) mg/dl AST 15 (13-39) U/L ALT 14 (7-52) U/L Alkaline Phosphatase 87 (34-104) U/L Total Protein 7.1 (6.0-8.3) gm/dl Albumin 4.1 (3.4-5.0) gm/dl Intake and Output 12/18/23 12/18/23 12/18/23 06:59 14:59 22:59 Intake Total 250 / 1785 1535 / 1785 Balance 250 / 1785 1535 / 178 Intake: IV 250 / 1785 1535 / 1785 Acetaminophen 1,000 mg In 100 100 / 100 ml @ 400 mls/hr IV NOW STA Rx#: [id number] Sodium Chloride 0.9% 1,000 ml @ 1000 / 1000 999 mls/hr IV .Q1H1M FELIX Rx#: [id number] Vancomycin HCl 1,750 mg In 535 / 535 Sodium Chloride 0.9% 500 ml @ 200 mls/hr IV NOW ONE Rx#: [id number] Left Forearm 150 / 150 Other: Weight 90.8 kg Weight Measurement Method Built in [facility] Patient Weight 12/19/23 06:59 Weight 90.8 kg
[2023-12-18] MEDS: cefTRIAXone SODIUM 2,000 MG/50 ML BAG IV SCH (18:11)
[2023-12-18] MEDS: SODIUM CHLORIDE 0.65% NA SOLN 45 ML (OCEAN) NAE SCH (18:12)
[2023-12-18] MEDS: BUDESONIDE 0.5 MG/2 ML VIAL (PULMICORT) NEB SCH (19:49)
[2023-12-18] MEDS: guaiFENesin 600 MG TABCR PO SCH (20:26)
[2023-12-18] MEDS: HEPARIN SOD 5,000 UNIT/0.5 ML VIAL SQ SCH (20:27)
[2023-12-18] MEDS: DULoxetine HCL 60 MG CAP PO SCH (20:28)
[2023-12-18] MEDS: GABAPENTIN 300 MG CAP PO SCH (20:28)
[2023-12-18] MEDS: DOXYCYCLINE HYCLATE 100 MG CAP PO SCH (20:28)
[2023-12-18] MEDS: BENZONATATE 100 MG CAPSULE PO SCH (20:28)
[2023-12-18] MEDS: DULoxetine HCL 30 MG CAP PO SCH (20:28)
[2023-12-18] MEDS: SENNA 8.6 MG TAB PO SCH (20:29)
[2023-12-18] MEDS: AMITRIPTYLINE HCL 50 MG TAB PO SCH (20:29)
[2023-12-18] MEDS: methylPREDNISolone 40 MG in SYRINGE 0 ML IV SCH (20:29)
[2023-12-18] MEDS ORDERED: methylPREDNISolone 125 MG/2 ML VIAL IV SCH (21:00)
[2023-12-18] MEDS ORDERED: guaiFENesin 600 MG TABCR PO SCH (21:00)
--- OUTSIDE RECORDS SUMMARY | 2023-12-18 23:27 | External Medical Summary | Summary of Care ---
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 Latex 11/23/2014 Patient denies this allergy documented as of this encounter (statuses as of 12/10/2023) Medications Medication Sig Dispensed Refills Start Date End Date Status Acetaminophen 500 MG Oral Tablet Take 2 Tablets by mouth 3 times a day as needed for Pain, Moderate or Pain, Severe. Active Flutter DeviceIndications: Bronchiectasis without complication (HCC) Use for 10 min twice daily. pretreat with albuteorl. 1 Each 04/25/2022 Active Saline Nasal [place] 0.65 % Nasal Solution (Shaniko) Administer 1 [place] into nostril in the morning and 1 [place] at noon and 1 [place] in the evening and 1 [place] before bedtime. 30 mL 11/15/2022 Active Senna 8.6 MG Oral Tablet Take 2 Tablets by mouth in the morning and 2 Tablets before bedtime. 60 Tablet 1 11/15/2022 Active Anoro Ellipta 62.5-25 MCG/ACT Inhalation Aerosol Powder Breath Activated (umeclidinium-iveth nterol) Inhale 1 Puff by mouth in the morning. 30 Each 5 12/04/2022 Active DULoxetine HCl 30 MG Oral Capsule Delayed Release Particles (Cymbalta) Take 1 Capsule by mouth at bedtime. Active Levothyroxine Sodium 75 MCG Oral Tablet (Levoxyl) TAKE 1 TABLET BY MOUTH DAILY AT LEAST 30 MINUTES PRIOR TO FIRST MEAL OF THE DAY OR OTHER MEDICATIONS 100 Tablet 3 11/22/2022 Active DULoxetine HCl 30 MG Oral Capsule Delayed Release Particles (Cymbalta) Take 1 capsule by mouth every evening 90 Capsule 2 11/22/2022 Active Gabapentin 300 MG Oral Capsule (Neurontin) TAKE ONE CAPSULE BY MOUTH THREE TIMES A DAY IN THE MORNING, AT NOON AND BEFORE BEDTIME 90 Capsule 5 05/27/2023 Active Amitriptyline HCl 25 MG Oral Tablet (Elavil) Take 2 Tablets by mouth at bedtime. 180 Tablet 1 07/22/2023 Active Nitroglycerin 0.4 MG Sublingual Tablet Sublingual (Nitrostat)Indicat ions:Unstable angina (HCC) TAKE 1 TABLET BY MOUTH EVERY 5 MINUTES NEEDED WITH CHEST PAIN UP TO 3 DOSES IN 15 MINUTES 25 Tablet 11 07/22/2023 Active Tamsulosin HCl 0.4 MG Oral Capsule (Flomax)Indication s:BPH with obstruction/lower urinary tract symptoms Take 2 Capsules by mouth in the morning. 90 Capsule 3 07/22/2023 Active DULoxetine HCl 60 MG Oral Capsule Delayed Release Particles (Cymbalta)Indicati ons:Current moderate episode of major depressive disorder without prior episode (HCC),Work related injury TAKE ONE CAPSULE BY MOUTH EVERY EVENING 90 Capsule 3 08/16/2023 Active Losartan Potassium 50 MG Oral Tablet (Cozaar) TAKE ONE TABLET BY MOUTH EVERY DAY IN THE MORNING 30 Tablet 5 09/11/2023 5 Active Metoprolol Succinate ER 25 MG Oral Tablet Extended Release 24 Hour (toPROL XL) TAKE ONE AND ONE-HALF TABLETS BY MOUTH EVERY MORNING 135 Tablet 10/01/2023 5 Active Clopidogrel Bisulfate 75 MG Oral Tablet (pLAVix)Indication s:Atherosclerosis of [place] coronary artery of [place] heart with angina pectoris (HCC) Take 1 Tablet by mouth in the morning. 90 Tablet 3 12/10/2023 Active Finasteride 5 MG Oral Tablet (Proscar)Indicatio ns:BPH without obstruction/lower urinary tract symptoms,Urge incontinence Take 1 Tablet by mouth in the morning. 90 Tablet 3 12/10/2023 Active Atorvastatin Calcium 80 MG Oral Tablet (Lipitor)Indicatio ns:Dyslipidemia, goal LDL below 100 Take 1 Tablet by mouth in the morning. 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 90 Tablet 3 12/10/2023 Active Finasteride 5 MG Oral Tablet (Proscar)Indicatio ns:BPH without obstruction/lower urinary tract symptoms,Urge incontinence TAKE ONE TABLET BY MOUTH EVERY DAY FOR PROSTATE 90 Tablet 3 11/22/2022 4 Discontinue d(Refill) Clopidogrel Bisulfate 75 MG Oral Tablet (pLAVix)Indication s:Atherosclerosis of [place] coronary artery of [place] heart with angina pectoris (HCC) TAKE ONE TABLET BY MOUTH EVERY DAY IN THE MORNING 90 Tablet 3 11/22/2022 4 Discontinue d(Refill) Atorvastatin Calcium 80 MG Oral Tablet (Lipitor)Indicatio ns:Dyslipidemia, goal LDL below 100 TAKE ONE TABLET BY MOUTH EVERY DAY IN THE MORNING 90 Tablet 3 11/22/2022 4 Discontinue d(Refill) Pantoprazole Sodium 40 MG Oral Tablet Delayed Release (Protonix)Indicati ons: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 Patient is taking amitriptyline 50 mg before bed and has been doing so for several years. This can cause urinary frequency and due to risks of side effects, I recommend tapering down the medication to 25 mg before bed for 2-4 weeks. Patient agreeable to this plan. He will monitor for worsening mood symptoms or difficulty sleeping as well as any change in urinary frequency. Ultimate goal is to get him off this medicine if his symptoms do not worsen but would taper over 2-4 weeks to decrease risk of withdrawal symptoms. It is also possible that it is from fluid retention during the day which then goes back into circulation when he lies down at night. If there is no improvement with tapering off the amitriptyline, recommend trial of a diuretic during the day to see if this helps with the urinary frequency at night. He is scheduled with urology but it is not till May. No concerning symptoms that necessitate urgent visit at this time. Supraventricular tachycardia 11/22/2022 DNR (do not resuscitate) 11/02/2022 Diastolic congestive heart failure 10/24/2022 Last Assessment & Plan: Current Status: "Stable" for patient / At or near baseline Degree of Condition Awareness: Demonstrates very good awareness of condition, disease course, and prognosis "RED FLAG" HF Symptoms: o Leg Swelling (Examples: "I can't wear certain socks or shoes", "My pants feel tight") o Increased dyspnea on exertion (Example: "I can't walk to the kitchen or up the stairs") Current Heart Failure Classifications: o With ordinary activity such as doing housework, yard work or shopping ([employer] [place] [employer] CLASS II) Diagnostic Review: Recent Labs Units 11/14/22 0543 04/26/21 1516 12/27/20 1339 LEFT VENTRICULAR EJECTION FRACTION % -- -- 54 ESTIMATED GLOMERULAR FILTRATION RATE - [facility] mL/min 75 < > -- EGFR-OUTSIDE LAB -- < > -- HGB - [facility] g/dL 8.9* < > -- HEMOGLOBIN-OUTSIDE LAB -- < > -- < > = values in this interval not displayed. Medication Regimen: o Beta Hakan Therapy: Metoprolol Succinate (ER) o KYLEE Inhibitor/ARB Therapy: losartan o Diuretic therapy: Other: none Self - Management Plan o Other/Additional Comments: none Exacerbation Plan o Chest X-Ray DDD (degenerative disc disease), cervical 2022 Diverticulosis of large intestine without hemorr madina 10/22/2022 Atelectasis, bilateral 10/22/2022 Cerebrovascular disease 10/22/2022 Periprosthetic fracture of femur at tip of prost hesis 10/22/2022 Last Assessment & Plan: Weightbearing as tolerated with walker. Following with Orthopedic surgery. Next appointment next month. Taking Tylenol and tramadol for pain. DDD (degenerative disc disease), lumbosacral 06/2022 Respiratory insufficiency 10/13/2022 History of falling 10/05/2022 Overview: historical Dementia with mood disturbance 10/05/2022 Generalized abdominal pain 08/24/2022 Last Assessment & Plan: -Patient with noted abdominal distention, tenderness with palpation generally but more so in the left side of the abdomen. Does have hx of hiatal hernia, GERD, and constipation. Difficult historian. Unclear if has been having normal bowel movements. ? abdominal distention cause increase respiratory s/s including increased sob. Could evaluate for pleural effusion, ascites, SBO or ileus. -CT of the chest, abdomen and pelvis placed. Pt to use OSH [facility] in [place]. Scheduling to fax orders. COPD, group B, by GOLD 2017 classification 08/06 Overview: Per COPD GOLD Classification Last Assessment & Plan: Current Status : "Stable" for patient / At or near baseline Degree of Condition Awareness: Demonstrates very good awareness of condition, disease course, and prognosis "RED FLAG" COPD symptoms: o Increased shortness of breath at rest ("I struggle to breathe even when watching TV", "I have to wear or turn up my oxygen just when I'm sitting on the couch") o Cough ("I get a different kind of cough than what I' have every day") Medication Regimen o Other: anoro, advair Self-Management plan o High frequency nebulizer treatments every 4-6 hours around the clock o Other/Additional Comments: anoro, adv Exacerbation plan o Solumedrol 60mg IM/IV o Chest Xray Moderate persistent asthma without complication 04/25/2022 Bronchiectasis without complication 04/25/2022 Alveolar emphysema of lung 04/25/2022 Last Assessment & Plan: Wheezing noted. O2 marginal on RA Very confused about meds -reviewed meds at length -albuterol rx sent to [facility] -Use Advair BID -has rescue kit -CXR, exercise pulse ox -f/u t/c and home visit next week -needs pulm f/u Mediastinal adenopathy 04/25/2022 Chronic back pain greater than 3 months duration 04/17/2022 Hx of actinic keratosis 10/24/2020 VALDOVINOS (dyspnea on exertion) 08/17/2020 Last Assessment & Plan: Per walk test in June 2022, patient did not require oxygen. Cervical spinal stenosis 01/27/2020 Atherosclerosis of [place] co ronary artery of [place] heart with stable angina pectoris 10/02/2019 Overview: Echo 11/2020 Mild to moderate concentric left ventricular hypertrophy is present. The septal motion is abnormal, perhaps related to pacemaker activation. The left ventricular wall motion otherwise normal. The qualitative LV ejection fraction is 55-59% (normal). The left atrium is mildly enlarged. The left ventricular diastolic function is mildly abnormal (grade I). The aortic valve has three leaflets. Mild aortic valve sclerosis is present. Aortic stenosis is absent. Mild aortic valve regurgitation is present. The aortic root is mildly dilated with diameter 4.1 cm. The proximal ascending aorta is mildly dilated with diameter 4.4 cm. Compared to the prior study dated 12/11/2018, the aortic root/proximal ascending aorta measurements are stable without significant interval change. Last Assessment & Plan: Stable. No angina. -continue Plavix, aspirin, metoprolol, losartan Eczema of left external ear 08/11/2019 Trigger middle finger of right hand 07/27/2019 Arthritis of both hands 07/27/2019 Chronic pain due to trauma 01/22/2019 Overview: Due to right hip fracture; Fracture 1984, hip replacement 1984 and 2006. Pain managed through [facility] pain clinic. 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 12/22 Overview: CO-M[facility] [place] Last Assessment & Plan: Follows with GI Continue pantoprazole Total knee replacement status, left 10/29/2017 Xerostomia 08/07/2017 Gastroesophageal reflux disease with esophagitis 03/15/2017 Last Assessment & Plan: Continue pantoprazole Sinus node dysfunction 06/14/2016 Cardiac pacemaker in situ 06/14/2016 Last Assessment & Plan: Follows with cardiology Acquired hypothyroidism 11/08/2015 Overview: TSH 5 Last Assessment & Plan: Continue Synthroid Nasal deformity, acquired 08/17/2011 Nasal turbinate hypertrophy 08/17/2011 Vitamin D deficiency 02/13/2011 Lumbosacral neuritis 08/09/2010 Major depressive disorder, single episode, moder ate 07/15/2009 Overview: started on Cymbalta Last Assessment & Plan: Stable on Cymbalta DYSLIPIDEMIA, GOAL LDL BELOW 100 06/13/2009 Overview: Per Lipid Taxonomy. BPH with obstruction/lower urinary tract symptom s 04/05/2009 Last Assessment & Plan: Continue finasteride, Flomax Urge incontinence 04/05/2009 Overview: Dr Albarran ADVANCE DIRECTIVE INFORMATION 11/14/2005 Overview: Yes, Patient instructed to provide copy of advance directive for provider to review and to be scanned into Electronic Medical Record Patient instructed to bring in copy to be scanned into medical record. Kmb 03/07 Seborrheic keratosis 11/14/2005 Deviated nasal septum 07/05/2005 RHINITIS, NONALLERGIC 06/01/2004 Idiopathic scoliosis 12/03/2002 Granulomatous lung disease 10/28/2002 DIASTOLIC DYSFUNCTION 09/21/2002 Diverticulosis of colon Diastasis of muscle Seborrheic dermatitis Restless legs documented as of this encounter (statuses as of 12/10/2023) Resolved Problems Problem Noted Date Diagnosed Date Resolved Date Pathological fracture, left femur, initial encounter for fracture 10/24/2022 10/24/2022 Closed fracture of left femur 10/05/2022 10/24/2022 Moderate persistent asthma w ith acute exacerbation 08/24/2022 10/09/2022 Last Assessment & Plan: -Currently following with pulmonary medicine, last visit yesterday 08/22/2022 and is scheduled to return for follow up 09/11/2022. -Advised during visit yesterday to start Doxy and prednisone, use nebulizer up to four times per day with this current exacerbation, obtain mucinex to help with pulm toilet, flutter device Q1h, Tessalon Perles for cough. Sputum culture also ordered and pending -Pulm also recommends if patient not tolerant of Prednisone, Budesonide may be introduced with neb treatments twice daily. -It is very unclear if patient is taking medication as prescribed. Likely component of medication nonadherence and this is causing continued symptoms. -Reiterated importance of instruction provided by Pulm service yesterday. Chronic obstructive pulmonary disease 07/18/2022 08/08/2022 Overview: Per COPD GOLD Classification Last Assessment & Plan: COPD "RED FLAG" COPD symptoms: o Increased shortness of breath at rest ("I struggle to breathe even when watching TV", "I have to wear or turn up my oxygen just when I'm sitting on the couch") Medication Regimen o Class D - Inhaled Ptrguziyieapix-[id number] Combination Inhaler (Trellegy) Exacerbation Mgt: o Rescue Kit in place in Medication List: Yes. o Used rescue kit in the past month: No o Required IM or IV steroids (Solumedrol) since last visit: No Current exacerbation. Rescue kit initiated. Follow-up scheduled. Hypertensive heart disease w ithout congestive heart failure 05/24/2022 07/18/2022 Overview: HTN + diastolic dysfunction Consolidation of right lower lobe of lung 04/25/2022 07/03/2022 Unstable angina 02/07/2022 04/17/2022 Supraventricular tachycardia 12/19/2021 07/03/2022 Ascending aortic aneurysm 07/04/2021 Last Assessment & Plan: Stable per last echo 2020. Postherpetic neuralgia 07/08/202007/03 Asthma with severity to be determined 08/31/2019 04/25/2022 Stable angina 01/22/2019 06/13/2023 Overview: Stable angina is included in combo code with cad 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 01/22/2019 07/29/2020 Coronary artery disease invo lving [place] coronary artery of [place] heart without angina pectoris 09/19/2017 10/31/2021 Overview: W/ angina on PL [place] (actinic keratosis) 01/23/201710/24 Bradycardia 06/14/2016 09/19/2017 Essential hypertension with goal blood pressure less than 140/90 10/31/2015 07/04/2022 Last Assessment & Plan: bp stable-not on meds Monitor Chronic cholecystitis 03/10/20092010 ACTIVE CASE MANAGEMENT 03/07/200904/10 Overview: Chela Morris, RN [phone] Other specified hypothyroidism 03/01/2008 08/16/2016 Overview: TSH 6.14 Abdominal pain, right upper quadrant 11/11/2006 02/13/2011 SKIN HYPERTRO-ATROPH NOS 11/14/2005 Asthma in COPD 07/05/2005 03/09/2019 Esophageal reflux 07/05/2005 09/19/2017 METATARSALGIA 06/03/2003 02/21/2017 Carotid stenosis, non-symptomatic 12/16/2002 07/27/2019 Mixed dyslipidemia 12/03/2002 9 Overview: Per Lipid Taxonomy. CAD (coronary artery disease) 09/30/2017 PURE HYPERCHOLESTEROLEM /11/2007 BENIGN NEOPLASM LG BOWEL Hemorrhoids, external without complications 02/21/2017 EXT ASTHMA W-O STAT ASTH 05/2006 Inflamed seborrheic keratosis 02/21/2017 Amputation of finger of left hand 01/15/2019 MEDICATION USE AGREEMENT 09/2010 Overview: Dr Parra [facility] Beta-hakan intolerance documented as of this encounter (statuses as of 12/10/2023) Immunizations Name Administration Dates Next Due COVID-19 mRNA, LNP-s, No Pre serve, 2-Dose Series (Pfizer) 10/13/2020,09/22/2020 Pneumococcal Conjugate Vacc, 13 Valent (Prevnar) 08/16/2014 Pneumococcal Polysaccharide PPV23 (Pneumovax) 06/30/2012,04/13/2004,05/26/1996 Season Influenza, Quad, PF, Adjuvanted, 65+ Yrs, IM (FLUAD) 03/21/2020 Seasonal Influenza, PF, 6 M & above, IM , (FluLaval or Fluzone) 05/02/2018,04/29/2017 Seasonal Influenza, Quadriva lent Hd (Fluzone Hd) 06/19/2023,04/17/2022,04/26/2021 Seasonal Influenza, Quadriva lent, No Preserve, IM 03/02/2016,03/28/2015 Seasonal Influenza, Split, I IV3, With Preserve, Inj 05/19/2014,04/30/2013,03/25/2012,05/01(Deferred: Patient Refused),03/09/2009,05/06/2008, 007,05/13/2006 Seasonal Influenza, Trivalen t, Adjuvanted, 65+ yrs 06/23/2019 TD - Tetanus/Diptheria (ADULT) 08/13/2009 TDAP (age 10 and older)(Boostrix) 10/18/2015 TDAP, Age 7 and older, IM (Adacel) 08/28/2007 Zoster Vaccine Recombinant (Shingrix) 12/19/2021 ,08/19/2021 documented as of this encounter Social History Tobacco Use Types Packs/Day Years Used Date Smoking Tobacco: Never Smokeless Tobacco: Former Snuff Quit: 06/24/1971 Alcohol Use Standard Drinks/Week Comments No 0 (1 standard drink = 0.6 oz pur e alcohol) occasional PHQ-2 Answer Date Recorded PHQ-2 Score 0 01/22/2019 Hunger Vital Sign Answer Date Recorded Worried About Running Out of Food in the Last Ye ar Never true 06/23/2019 Ran Out of Food in the Last Year Never true 06/23/2019 Utilities Answer Date Recorded Do you have trouble paying y our heating, water, or electric bill? (Adult - for ages 18 years and over) Not on file 12/10/2023 Is your family able to pay t he heat, water, or electric bill? (Household - for ages 0-17 years) Not on file 12/10/2023 Does your family have access to good internet? (Household - for ages 0-17 years) Not on file 12/10/2023 Social Connections Answer Date Recorded How often do you feel lonely or isolated from those around you? (Adult - for ages 18 years and over) Not on file 12/10/2023 Sex and Gender Information Value Date Recorded Sex Assigned at Not on file Gender Identity Not on file Sexual Orientation Not on file Job Start Date Occupation Industry Not on file Not on file Not on file documented as of this encounter Functional Status Functional Status Response Date of Assess ment Are you deaf or do you have serious difficulty h earing? No 10/04/2022 Are you blind or do you have serious difficulty seeing, even when wearing glasses? No 10/04/2022 Do you have serious difficul ty walking or climbing stairs? (5 years old or older) Yes 10/04/2022 Do you have difficulty dress ing or bathing? (5 years old or older) No 10/04/2022 Because of a physical, menta l, or emotional condition, do you have difficulty doing errands alone such as visiting a doctor s office or shopping? (15 years old or older) No 10/05/19 Cognitive Status Response Date of Assessm ent Because of a physical, menta l, or emotional condition, do you have serious difficulty concentrating, remembering, or making decisions? (5 years old or older) No 10/04/2022 documented as of this encounter Miscellaneous Notes * Addendum Note - Guera Jay MD - 12/10/2023 3:39 PM EDT Addended by: GUERA LOYA on: 12/10/2023 03:39 PM Modules accepted: Orders * Telephone Encounter - Guera Jay MD - 12/10/2023 3:39 PM EDT Rx signed. Please schedule appt. * Telephone Encounter - Maggie Harry PA-C - 12/10/2023 9:53 AM EDT Refused Prescriptions: Disp Refills Finasteride 5 MG Oral Tablet (Proscar) 90 Tab*3 Sig: Take 1 Tablet by mouth in the morning.Refused By: MAGGIE HARRY for Refusal: Patient unknown toprescriber Pantoprazole Sodium 40 MG Oral Tablet Latisha*90 Tab*3 Sig: Take 1 Tablet by mouth in the mo rning.Refused By: MAGGIE HARRY for Refusal: Patient unknown to prescriber Clopidogrel Bisulfate 75 MG Oral Tablet (p*90 Tab*3 Sig: Take 1 Tablet by mouth in the morning.Refused By: MAGGIE HARRY for Refusal: Patient unknown to prescriber Atorvastatin Calcium 80 MG Oral Tablet (Li*90 Tab*3 Sig: Take 1 Tablet by mouth in the morning.Refused By: MAGGIE HARRY for Refusal: Patient unknown to prescriber * Addendum Note - Deangelo Stover CPhT - 12/10/2023 8:31 AM EDTAddended by: DEANGELO STOVER on: 12/10/2023 08:31 AM Modules accepted: Orders * Telephone Encounter - Deangelo Stover CPhT - 12/10/2023 8:30 AM EDT Did you pend patient's preferred pharmacy and medication before forwarding?yes Pharmacy: [facility] Pending Prescriptions: Disp Refills Finasteride 5 MG Oral Tablet (Proscar) 90 Tab*3 Sig: Take 1 Tablet by mouth in the morning. Pantoprazole Sodium 40 MG Oral Tablet Del*90 Tab*3 Sig: Take 1 Tablet by mouth in the morning. Clopidogrel Bisulfate 75 MG Oral Tablet (*90 Tab*3 Sig: Take 1 Tablet by mouth in the morning. Atorvastatin Calcium 80 MG Oral Tablet (L*90 Tab*3 Sig: Take 1 Tablet by mouth in the morning. Last Visit: Visit date not found (in office), 07/17/2022 (telemedicine) Next Visit: Visit date not found If no future appointments scheduled, and last appointment is greater than a year ago, please schedule patient for a follow-up appointment Last date the medication was ordered: 11/22/22 Is this request for a controlled substance?No Urine Drug Screen: Results for orders placed or performed during the hospital encounter of 10/03/22 TOXICOLOGY, URINE SCREEN W/ CONFIRMATION Result Value Amphetamines Screen, U Negative Benzodiazepines Screen, U Negative Cannabinoids Screen, U Negative Cocaine Metabolite Screen, U Negative Fentanyl Screen, U Positive (A) Hydrocodone Screen, U Negative Methadone Metabolite Screen, U Negative Morphine/Codeine Screen, U Negative Oxycodone Screen, U Positive (A) Narrative Cutoff Concentrations: Drug Level Amphetamines 500 ng/mL Benzodiazepines 100 ng/mL Cannabinoids 50 ng/mL Cocaine Metabolite 150 ng/mL Fentanyl 1 ng/mL Hydrocodone / Hydromorphone 300 ng/mL Methadone Metabolite 100 ng/mL Morphine / Codeine 300 ng/mL Oxycodone / Oxymorphone 100 ng/mL Screening results are presumptive and can only be used for medical purposes. Positive screening results are reflexed to confirmatory testing. *Note: Due to a large number of results and/or encounters for the requested time period, some results have not been displayed. A complete set of results can be found in Results Review. Patient Phone Numbers Labs: Lab Results Component Value Date/Time CREAT 1.07 03/11/2023 12:00 AM CREAT 1.3 (H) 04/12/2020 10:48 AM POTASSIUM 4.0 03/11/2023 12:00 AM POTASSIUM 4.5 04/12/2020 10:48 AM TSH 1.75 01/09/2023 10:30 AM TSH 1.76 01/09/2023 10:30 AM TSH 2.85 05/26/2019 08:32 AM LDLCALC 74 04/17/2022 12:56 PM LDLCALC 82 05/26/2019 08:32 AM LDLDIRECT NOT APPLICABLE 05/26/2019 08:32 AM ALT 14 11/14/2022 05:43 AM ALT 19 04/12/2020 10:48 AM HGBA1C 6.1 (H) 04/17/2022 12:56 PM HGBA1C 5.0 12/03/2016 11:27 AM * Telephone Encounter - Deangelo Stover CPhT - 12/10/2023 8:27 AM EDTNo prescriptions requested or ordered in this encounter * Telephone Encounter - Thao Josue fagot heater - 12/06/2023 12:14 PM EDT Pharmacy checking status. /Thank You, Thao Josue [facility] 12/06/2023, 12:14 PM * Telephone Encounter - Casandra Lockwood CPhT - 12/05/2023 3:15 PM EDTPending Prescriptions: Disp Refills Pantoprazole Sodium 40 MG Oral Tablet Latisha*90 Tab*3 Sig: TAKE ONE TABLET BY MOUTH EVERY DAY Atorvastatin Calcium 80 MG Oral Tablet (Li*90 Tab*3 Sig: TAKE ONE TABLET BY MOUTH EVERY DAY IN THE MORNING Clopidogrel Bisulfate 75 MG Oral Tablet (p*90 Tab*3 Sig: TAKE ONE TABLET BY MOUTH EVERY DAY IN THE MORNING Finasteride 5 MG Oral Table t (Proscar) 90 Tab*3 Sig: TAKE ONE TABLET BY MOUTH EVERY DAY FOR PROSTATE * Telephone Encounter - Casandra Lockwood CPhT - 12/05/2023 3:15 PM EDTPending Prescriptions: Disp Refills Pantoprazole Sodium 40 MG Oral Tablet Latisha*90 Tab*3 Sig: TAKE ONE TABLET BY MOUTH EVERY DAY Atorvastatin Calcium 80 MG Oral Tablet (Li*90 Tab*3 Sig: TAKE ONE TABLET BY MOUTH EVERY DAY IN THE MORNING Clopidogrel Bisulfate 75 MG Oral Tablet (p*90 Tab*3 Sig: TAKE ONE TABLET BY MOUTH EVERY DAY IN THE MORNING * Telephone Encounter - Casandra Lockwood CPhT - 12/05/2023 3:13 PM EDTPending Prescriptions: Disp Refills Pantoprazole Sodium 40 MG Oral Tablet Latisha*90 Tab*3 Sig: TAKE ONE TABLET BY MOUTH EVERY DAY Atorvastatin Calcium 80 MG Oral Tablet (Li*90 Tab*3 Sig: TAKE ONE TABLET BY MOUTH EVERY DAY IN THE MORNING documented in this encounter Plan of Treatment Upcoming Encounters Date Type Department Care Team (Late st Contact Info) Description 06/22/2024 1:40 PM EST Office Visit Dermatology [address] [place] [phone] Nia Hong PA-C [address] [place] [address] [place] [phone] Health Maintenance Due Date Last Done Comments Alpha-1 Antitrypsin 02/06/1963 Depression Monitoring 01/23/2020 01/22/2019 Colonoscopy 08/30/2021 08/30/2016 COVID-19 Vaccine (2022- season) 2023 10/13/2020, 09/22/2020 TSH 01/10/2024 01/09/2023, 12/22, 11/14/2022, Additional history exists Mendez's Esophagus Surveilance 06/02/2024 06/02/2021, 06/02/2021, 01/08/2019, Additional history exists O2 ASSESSMENT COMPLETED IN PAST YEAR FOR COPD 06/19/2024 06/19/2023 DTaP,Tdap,and Td Vaccines (4 - Td or Tdap) 10/17/2025 10/18/2015, 08/13/2009, 08/28/2007 Pneumococcal Vaccine: 65+ Years Completed 08/16/2014, 06/30/2012, 04/13/2004, Additional history exists RETIRED - COLONOSCOPY-EVERY 5 YRS AGES 18-100 Discontinued 08/30/2016 Albumin/Creatinine Ratio Discontinued 07/27/2021 Zoster Vaccines Completed 12/19/2021, 08/19/2021 Influenza Vaccine (FLU shot) Completed 06/19/2023, 04/17/2022, 04/26/2021, Additional history exists GARDASIL-HPV IMMUNIZATION SERIES Aged Out No longer eligible based on patient's age to complete this topic Hepatitis B Aged Out No longer eligi ble based on patient's age to complete this topic MENINGOCOCCAL (MENACTRA/MENVEO) Aged Out No longer eligible based on patient's age to complete this topic documented as of this encounter Medical Devices Implanted Type Area Honing Machine Operator Device Identifier Shelf Expiration Date Model / Serial / Lot Femoral Nail Retrograde Implanted:Qty: 1 on 10/04/2022 by Donell Landry Jr[place] [facility] [place]nee ANGEL 02/18/2031 [id number] / / [id number] Screw Nlk A3 Ti 4.5x36mm - [id number] Implanted:Qty: 1 on 10/04/2022 by Donell Landry Jr., [place] [facility] [place]EL : TRAUMA [id number] / / 5.0 Compression Plate Implanted:Qty: 1 on 10/04/2022 by Donell Landry Jr., [place] [facility] [place]GEL [id number] / / Screw T2 Alpha Adv Lck 5x85 - [id number] Implanted:Qty: 1 on 10/04/2022 by Donell Landry Jr., [place] [facility] [place] Knee ANGEL : TRAUMA 07/24/2031 2361-5085S / / [id number] Screw T2 Alpha Adv Lck 5x65 - [id number] Implanted:Qty: 1 on 10/04/2022 by Donell Landry Jr., [place] [facility] [place] Knee ANGEL : TRAUMA 07/24/2032 2361-5065S / / [id number] Screw T2 Alpha Adv Lck 5x85 - [id number] Implanted:Qty: 1 on 10/04/2022 by Donell Landry Jr., [place] [facility] [place] Knee ANGEL : TRAUMA 02/22/2032 2361-5085S / / [id number] Screw T2 Alpha Lock 5x35mm - [id number] Implanted:Qty: 1 on 10/04/2022 by Donell Landry Jr., [place] [facility] [place] Knee ANGEL : TRAUMA 07/24/2032 2360-5035S / / [id number] Screw Gina Lk A3 Ti 5x12mm - [id number] Implanted:Qty: 1 on 10/04/2022 by Donell Landry Jr., [place] [facility] [place]EL : TRAUMA [id number] / / Screw Gina Lk A3 Ti 5x16mm - [id number] Implanted:Qty: 1 on 10/04/2022 by Donell Landry Jr., [place] [facility] [place]EL : TRAUMA [id number] / / Washer For 2.4mm/2.7mm/3.5m m - [id number] Implanted:Qty: 2 on 10/04/2022 by Donell Landry Jr., MD [place] [facility] [place]EL : TRAUMA [id number] / / Screw Nlk V2 T10 Ft 3.5x28mm - [id number] Implanted:Qty: 2 on 10/04/2022 by Donell Landry Jr., [place] [facility] [place]EL : TRAUMA [id number] / / documented as of this encounter Visit Diagnoses Diagnosis 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 Dyslipidemia, goal LDL below 100 Other and unspecified hyperlipidemia Atherosclerosis of [place] coronary artery of [place] heart with angina pectoris (HCC) BPH without obstruction/lower urinary tract symptoms Hypertrophy of prostate without urinary obstruction and other lower urinary tract symptoms (LUTS) Urge incontinence documented in this encounter Advance Directives Documents on File Type Date Recorded Patient Macaroni Maker Expl anation Advance Directives and Living Will 10/03/2022 ADVANCE DIRECTIVE / LIVING WILL Power of Bull Bucker 10/03/2022 POWER OF A TTORNEY * Full Code (Latest Code Status on File) Date Activated Date Inactivated Comments 10/03/2022 10:34 PM 10/20/2022 1:41 PM This order reflects the patients wishes and were consensually agreed upon. Question Answer Comments Discussion of Advance Directives occurred with: Patient * Full Code Date Activated Date Inactivated Comments 12/03/2016 1:01 PM 12/04/2016 3:57 PM This order r eflects the patients wishes and were consensually agreed upon. Question Answer Comments Discussion of Advance Directives occurred with: Not Discussed Does the patient have a Living Will? No Does the patient have Health Care Power of Attor mel? No Care Teams Plant Protection Supervisor Relationship Specialty Start Date End Date Guera Jay MD [address] [place] [address] [place] [phone] PCP - General Family Medicine 06/19/23 documented as of this encounter
--- OUTSIDE RECORDS SUMMARY | 2023-12-18 23:27 | External Medical Summary | Summary of Care ---
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 Active Flutter DeviceIndications:B ronchiectasis without complication (HCC) Use for 10 min twice daily. pretreat with albuteorl. 1 Each 04/25/2022 Active Saline Nasal Verner 0.65 % Nasal Solution ([place]) Administer 1 Verner into nostril in the morning and 1 Verner at noon and 1 Verner in the evening and 1 Verner before bedtime. 30 mL 11/15/2022 Active Senna 8.6 MG Oral Tablet Take 2 Tablets by mouth in the morning and 2 Tablets before bedtime. 60 Tablet 1 11/15/2022 Active Anoro Ellipta 62.5-25 MCG/ACT Inhalation Aerosol Powder Breath Activated (umeclidinium-vilan terol) Inhale 1 Puff by mouth in the morning. 30 Each 5 12/04/2022 Active DULoxetine HCl 30 MG Oral Capsule Delayed Release Particles (Cymbalta) Take 1 Capsule by mouth at bedtime. Active Finasteride 5 MG Oral Tablet (Proscar)Indication s:BPH without obstruction/lower urinary tract symptoms,Urge incontinence TAKE ONE TABLET BY MOUTH EVERY DAY FOR PROSTATE 90 Tablet 3 11/22/2022 01/12/2024 Active Clopidogrel Bisulfate 75 MG Oral Tablet (pLAVix)Indications :Atherosclerosis of [place] coronary artery of [place] heart with angina pectoris (HCC) TAKE ONE TABLET BY MOUTH EVERY DAY IN THE MORNING 90 Tablet 3 11/22/2022 Active Levothyroxine Sodium 75 MCG Oral Tablet [...] Active Nitroglycerin 0.4 MG Sublingual Tablet Sublingual (Nitrostat)Indicati ons:Unstable angina (HCC) TAKE 1 TABLET BY MOUTH EVERY 5 MINUTES NEEDED WITH CHEST PAIN UP TO 3 DOSES IN 15 MINUTES 25 Tablet 11 07/22/2023 Active Tamsulosin HCl 0.4 MG Oral Capsule (Flomax)Indications :BPH with obstruction/lower urinary tract symptoms Take 2 Capsules by mouth in the morning. 90 Capsule 3 07/22/2023 Active DULoxetine HCl 60 MG Oral Capsule Delayed Release Particles (Cymbalta)Indicatio ns:Current moderate episode of major depressive disorder without prior episode (HCC),Work related injury TAKE ONE CAPSULE BY MOUTH EVERY EVENING 90 Capsule 3 08/16/2023 Active Losartan Potassium 50 MG Oral Tablet (Cozaar) TAKE ONE TABLET BY MOUTH EVERY DAY IN THE MORNING 30 Tablet 5 09/11/2023 09/10/2024 Active Metoprolol Succinate ER 25 MG Oral Tablet Extended Release 24 Hour (toPROL XL) TAKE ONE AND ONE-HALF TABLETS BY MOUTH EVERY MORNING 135 Tablet 10/01/2023 09/30/2024 Active documented as of this encounter (statuses as [...] abdomen and pelvis placed. Pt to use [facility] in [place]. Scheduling to fax orders. COPD, group B, [...] have every day") Medication Regimen o Other: rik freire Self-Management plan o High frequency nebulizer treatments every 4-6 hours around the clock o Other/Additional Comments: rik freire Exacerbation plan o Solumedrol 60mg IM/IV o Chest Xray Moderate persistent asthma without complication 04/25/2022 Bronchiectasis without complication 04/25/2022 Alveolar emphysema of lung 04/25/2022 Last Assessment & Plan: Wheezing noted. O2 marginal on RA Very confused about meds -reviewed meds at length -albuterol rx sent to [facility] -Use Advair BID -has rescue kit [...] oxygen. Cervical spinal stenosis 01/27/2020 Atherosclerosis of [place] co ronary artery of [place] heart with stable angina pectoris 10/02/2019 Overview: [...] replacement 1984 and 2006. Pain managed through [facility] pain clinic. 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 12/22 Overview: CO-M2 [place] Last Assessment & Plan: Follows with GI [...] Medication Regimen o Class D - Inhaled [id number] Combination Inhaler (Trellegy) Exacerbation Mgt: o Rescue [...] 01/22/2019 07/29/2020 Coronary artery disease invo lving [place] coronary artery of [place] heart without angina pectoris 09/19/2017 10/31/2021 Overview: W/ angina on PL [place] (actinic keratosis) 01/23/201710/24 Bradycardia 06/14/2016 09/19/2017 Essential hypertension with goal blood pressure less than 140/90 10/31/2015 07/04/2022 Last Assessment & Plan: bp stable-not on meds Monitor Chronic cholecystitis 03/10/20092010 ACTIVE CASE MANAGEMENT 03/07/200904/10 Overview: Chela Morris, RN [phone] Other specified hypothyroidism 03/01/2008 08/16/2016 Overview: TSH 6.14 Abdominal pain, right upper quadrant 11/11/2006 02/13/2011 SKIN HYPERTRO-ATROPH NOS 11/14/2005 Asthma in COPD 07/05/2005 03/09/2019 Esophageal reflux 07/05/2005 09/19/2017 METATARSALGIA 06/03/2003 02/21/2017 Carotid stenosis, non-symptomatic 12/16/2002 07/27/2019 Mixed dyslipidemia 12/03/2002 9 Overview: Per Lipid Taxonomy. CAD (coronary artery disease) 09/30/2017 PURE HYPERCHOLESTEROLEM 11/2007 BENIGN NEOPLASM LG BOWEL Hemorrhoids, external without complications 02/21/2017 EXT ASTHMA W-O STAT ASTH 05/2006 Inflamed seborrheic keratosis 02/21/2017 Amputation of finger of left hand 01/15/2019 MEDICATION USE AGREEMENT 09/2010 Overview: Dr Parra [facility] Beta-hakan intolerance documented as of this [...] in the Last Year Never true 06/23/2019 Sex and Gender Information Value Date Recorded [...] encounter Miscellaneous Notes * Addendum Note - Deangelo Stover CPhT - 12/10/2023 8:31 AM EDTAddended by: DEANGELO STOVER on: 12/10/2023 08:31 AM Modules accepted: Orders * Telephone Encounter - Deangelo Stover CPhT - 12/10/2023 8:30 AM EDT Did you pend patient's preferred pharmacy and medication before forwarding?yes Pharmacy: [facility] Pending Prescriptions: Disp Refills [...] encounter * Telephone Encounter - Thao Josue PHARM Tech - 12/06/2023 12:14 PM EDT Pharmacy checking status. /Thank You, Thao Josue [facility] Seismometer Operator III [facility] 12/06/2023, [...] 06/22/2024 1:40 PM EST Office Visit Dermatology [address] [place] [address] Nia Hong PA-C [address] [place] [address] [place] [address] Health Maintenance Due Date Last Done Comments [...] this encounter Medical Devices Implanted Type Area Golf Club Repairer Device Identifier Shelf Expiration Date Model / Serial / Lot Femoral Nail Retrograde Implanted:Qty: 1 on 10/04/2022 by Donell Landry Jr., [place] [facility] [place]nee ANGEL 02/18/2031 2339-1128S / / [id number] Screw Nlk A3 Ti 4.5x36mm - [id number] Implanted:Qty: 1 on 10/04/2022 by Donell Landry Jr., [place] [facility] [place]GEL : TRAUMA [id number] / / 5.0 Compression Plate Implanted:Qty: 1 on 10/04/2022 by Donell Landry Jr., MD [place] [facility] [place]GEL [id number] / / Screw T2 Alpha Adv Lck 5x85 - [id number] Implanted:Qty: 1 on 10/04/2022 by Donell Landry Jr., [place] [facility] [place]: Knee ANGEL : TRAUMA 07/24/2031 2361-5085S / / [id number] Screw T2 Alpha Adv Lck 5x65 - [id number] Implanted:Qty: 1 on 10/04/2022 by Donell Landry Jr., MD [place] [facility] [place]: Knee ANGEL : TRAUMA 07/24/2032 2361-5065S / / [id number] Screw T2 Alpha Adv Lck 5x85 - [id number] Implanted:Qty: 1 on 10/04/2022 by Donell Landry Jr., MD [place] [facility] [place]: Knee ANGEL : TRAUMA 02/22/2032 2361-5085S / / [id number] Screw T2 Alpha Lock 5x35mm - [id number] Implanted:Qty: 1 on 10/04/2022 by Donell Landry Jr., MD [place] [facility] [place]: Knee ANGEL : TRAUMA 07/24/2032 2360-5035S / / [id number] Screw Gina Lk A3 Ti 5x12mm - [id number] Implanted:Qty: 1 on 10/04/2022 by Donell Landry Jr., MD [place] [facility] [place]GEL : TRAUMA [id number] / / Screw Gina Lk A3 Ti 5x16mm - [id number] Implanted:Qty: 1 on 10/04/2022 by Donell Landry Jr., MD [place] [facility] [place]EL : TRAUMA [id number] / / Washer For 2.4mm/2.7mm/3.5m m - [id number] Implanted:Qty: 2 on 10/04/2022 by Donell Landry Jr., MD [place] [facility] [place]GEL : TRAUMA [id number] / / Screw Nlk V2 T10 Ft 3.5x28mm - [id number] Implanted:Qty: 2 on 10/04/2022 by Donell Landry Jr., MD [place] [facility] [place]GEL : TRAUMA [id number] / / documented as of this encounter Visit Diagnoses Diagnosis 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 Dyslipidemia, goal LDL below 100 Other and unspecified hyperlipidemia Atherosclerosis of [place] coronary artery of [place] heart with angina pectoris (HCC) BPH without obstruction/lower urinary tract symptoms Hypertrophy of prostate without urinary obstruction and other lower urinary tract symptoms (LUTS) Urge incontinence documented in this encounter Advance Directives Documents on File Type Date Recorded Patient Electrical Tech Expl anation Advance Directives and Living Will 10/03/2022 ADVANCE DIRECTIVE / LIVING WILL Power of Training Program Developer 10/03/2022 POWER OF A TTORNEY * Full [...] Power of Attor mel? No Care Teams Gis Application Developer Relationship Specialty Start Date End Date Guera Jay MD [address] [place] [address] [place] [phone] PCP - General Family Medicine 06/19/23 documented as of this encounter
--- OUTSIDE RECORDS SUMMARY | 2023-12-18 23:27 | External Medical Summary | Summary of Care ---
Author Name Unknown Organization [facility] Address [address] [place] [address] Phone [phone] Care Team Providers Care Cold Patcher Name Role Phone Guera Jay MD Primary Care Prov ider Reason for Visit * Reason Onset Date Comments Advice 10/18/2023 Encounter Details Date Type Department Care Team (Late st Contact Info) Description 10/18/2023 Telephone Family [address] [phone] Guera Jay MD [address] [place] [address] [place] [address] Advice Allergies Active Allergy Reactions Criticality Noted Date Comments Adhesive Tape Other (Please comment) Low 03/09/2009 Affected area blisters. Latex 11/23/2014 Patient denies this allergy documented as of this encounter (statuses as of 10/22/2023) Medications Medication Sig Dispensed Refills Start Date End Date Status Acetaminophen 500 MG Oral Tablet Take 2 Tablets by mouth 3 times a day as needed for Pain, Moderate or Pain, Severe. 0 Active Flutter DeviceIndications:B ronchiectasis without complication (HCC) Use for 10 min twice daily. pretreat with albuteorl. 1 Each 0 04/25/2022 Active Saline Nasal [place] 0.65 % Nasal Solution ([place]) Administer 1 [place] into nostril in the morning and 1 [place] at noon and 1 [place] in the evening and 1 [place] before bedtime. 30 mL 0 11/15/2022 Active Senna 8.6 MG Oral Tablet [...] Take 1 Capsule by mouth at bedtime. 0 Active Polyethylene Glycol 3350 17 GM Oral Packet (Miralax) TAKE 1 PACKET BY MOUTH IN THE MORNING AND 1 PACKET BEFORE BEDTIME 14 Each 0 11/22/2022 11/22/2023 Active Vitamin D3 25 MCG (1000 UT) Oral Tablet (Vitamin D3) TAKE ONE TABLET BY MOUTH TWICE A DAY IN THE MORNING AND IN THE EVENING 60 Tablet 0 11/22/2022 11/22/2023 Active Lidocaine 4 % External Patch (Aspercreme) APPLY 1 PATCH TOPICALLY TO AFFECTED AREA EVERY 12 HOURS 30 Patch 0 11/22/2022 11/22/2023 Active Ferrous Sulfate 325 (65 Fe) MG Oral Tablet (Feosol) TAKE ONE TABLET BY MOUTH TWICE A DAY IN THE MORNING AND BEFORE BEDTIME 60 Tablet 0 11/22/2022 11/22/2023 Active Additional Information Patient not taking.Reported on 12/07/2022 Dextran 70-Hypromellose 0.1-0.3 % Ophthalmic Solution INSTILL 1 DROP INTO AFFECTED EYE(S) FOUR TIMES A DAY NEEDED FOR DRY EYES 15 mL 1 11/22/2022 11/22/2023 Active Docusate Sodium 100 MG Oral Capsule (Colace) TAKE ONE CAPSULE BY MOUTH TWICE A DAY IN THE MORNING AND BEFORE BEDTIME 60 Capsule 5 11/22/2022 11/22/2023 Active Ipratropium-Albuter ol 0.5-2.5 (3) MG/3ML Inhalation Solution (Duoneb) INHALE 1 VIAL VIA NEBULERS EVERY 6 HOURS NEEDED FOR SHORTNESS OF BREATH 360 mL 5 11/22/2022 11/22/2023 Active Fluticasone Propionate 50 MCG/ACT Nasal Suspension (Flonase)Indication s:Deviated nasal septum,Chronic maxillary sinusitis,Acquired deformity of nose INSTILL 2 SPRAYS INTO EACH NOSTRIL DAILY NEEDED 16 mL 5 11/22/2022 11/22/2023 Active Finasteride 5 MG Oral Tablet (Proscar)Indication s:BPH without obstruction/lower urinary tract symptoms,Urge incontinence TAKE ONE TABLET BY MOUTH EVERY DAY FOR PROSTATE 90 Tablet 3 11/22/2022 01/12/2024 Active Clopidogrel Bisulfate 75 MG Oral Tablet (pLAVix)Indications :Atherosclerosis of [place] coronary artery of [place] heart with angina pectoris (HCC) TAKE ONE TABLET BY MOUTH EVERY DAY IN THE MORNING 90 Tablet 3 11/22/2022 Active Atorvastatin Calcium 80 MG Oral Tablet (Lipitor)Indication s:Dyslipidemia, goal LDL below 100 TAKE ONE TABLET BY MOUTH EVERY DAY IN THE MORNING 90 Tablet 3 11/22/2022 11/22/2023 Active Albuterol Sulfate 108 (90 Base) MCG/ACT Inhalation Aerosol Powder Breath ActivatedIndication s:Bronchiectasis without complication (HCC),Moderate persistent asthma without complication INHALE 2 PUFFS BY MOUTH EVERY 4 HOURS NEEDED FOR SHORTNESS OF BREATH, WHEEZING 3 Each 3 11/22/2022 11/22/2023 Active Additional Information Patient not taking.Reported on 12/07/2022 Levothyroxine Sodium 75 MCG Oral Tablet (Levoxyl) TAKE 1 TABLET BY MOUTH DAILY AT LEAST 30 MINUTES PRIOR TO FIRST MEAL OF THE DAY OR OTHER MEDICATIONS 100 Tablet 3 11/22/2022 Active Pantoprazole Sodium 40 MG Oral Tablet Delayed Release (Protonix)Indicatio ns: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 Pt to use OSH [facility] in [place]. Scheduling to fax orders. COPD, group B, [...] have every day") Medication Regimen o Other: anororik Self-Management plan o High frequency nebulizer treatments [...] meds at length -albuterol rx sent to [facility] -Use Advair BID -has rescue kit [...] oxygen. Cervical spinal stenosis 01/27/2020 Atherosclerosis of [place] co ronary artery of [place] heart with stable angina pectoris 10/02/2019 Overview: [...] replacement 1984 and 2006. Pain managed through [facility] pain clinic. 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 12/22 Overview: CO-M2 [place] Last Assessment & Plan: Follows with GI [...] as of this encounter (statuses as of 10/22/2023) Resolved Problems Problem Noted Date Diagnosed Date [...] Medication Regimen o Class D - Inhaled Oeikjlxufvcbih-EINJ-WJXK Combination Inhaler (Trellegy) Exacerbation Mgt: o Rescue [...] 01/22/2019 07/29/2020 Coronary artery disease invo lving [place] coronary artery of [place] heart without angina pectoris 09/19/2017 10/31/2021 Overview: W/ angina on [place] (actinic keratosis) 01/23/201710/24 Bradycardia 06/14/2016 09/19/2017 Essential hypertension with goal blood pressure less than 140/90 10/31/2015 07/04/2022 Last Assessment & Plan: bp stable-not on meds Monitor Chronic cholecystitis 03/10/20092010 ACTIVE CASE MANAGEMENT 03/07/200904/10 Overview: Chela Morris, RN [phone] Other specified hypothyroidism 03/01/2008 08/16/2016 Overview: TSH [...] MEDICATION USE AGREEMENT 09/2010 Overview: Dr Parra [facility] Beta-hakan intolerance documented as of this encounter (statuses as of 10/22/2023) Immunizations Name Administration Dates Next Due COVID-19 mRNA, LNP-s, No Pre serve, 2-Dose Series ([employer]s) 10/13/2020,09/22/2020 Pneumococcal Conjugate Vacc, 13 Valent (Prevnar) 08/16/2014 Pneumococcal Polysaccharide PPV23 (Pneumovax) 06/30/2012 Season Influenza, Quad, PF, Adjuvanted, 65+ Yrs, [...] 08/13/2009 TDAP (age 10 and older)(Boostrix) 10/18/2015 TDAP (age 11 and older)(Adacel) 08/28/2007 Zoster Vaccine Recombinant (Shingrix) 12/19/2021 ,08/19/2021 [...] (15 years old or older) No 10/05/19 23 Cognitive Status Response Date of Assessm ent Because of a physical, menta l, or emotional condition, do you have serious difficulty concentrating, remembering, or making decisions? (5 years old or older) No 10/04/2022 documented as of this encounter Miscellaneous Notes * Telephone Encounter - Nel Alston RN - 10/22/2023 4:10 PM EDT Form completed, on providers desk for signature. Will fax when signed * Telephone Encounter - Nel Alston RN - 10/22/2023 2:45 PM EDT Pt has a nebulizer I called [phone] for the Med Certificate, they will fax it to [phone] * Telephone Encounter - Marlene Cote OSA - 10/18/2023 2:34 PM EDT Advised patient: "Our providers do not typically send letters to [employer], but Im happyto send a message to him/her if you wish? " Name on the Utility Bill: [employer] Type of Utility: Electric Date Needed By: 10/21/23 Phone Number of [employer]: [phone] Fax Number of [employer]: Na Patient Advised Patient: "Should your provider agree to send the letter, there is a minimum of 5 day turn around for letter requests." Advised Patient: "Should you need additional support, you can go online to apply for the LIHEAP Program through the [place] Department of Human Services website." (https://www.[facility].[place].gov/Services/Assistance/Pages/LIHEAP.aspx) documented in this encounter Plan of Treatment Upcoming Encounters Date Type Department Care Team (Late st Contact Info) Description 2024 1:40 PM EDT Office Visit Family Medicine [address] [place] [phone] Guera Jay MD [address] [place] [address] [place] [phone] 06/22/2024 1:40 PM EST Office Visit Dermatology [address] [place] [phone] Nia Hong PA-C [address] [place] [address] [place] [phone] Health Maintenance Due Date Last Done Comments Alpha-1 Antitrypsin 02/06/1963 Colonoscopy 08/30/2021 08/30/2016 COVID-19 Vaccine ( season) 2023 10/13/2020, 09/22/2020 TSH 01/10/2024 01/09/2023, [...] this encounter Medical Devices Implanted Type Area Lug Breaker And Wire Puller Device Identifier Shelf Expiration Date Model / Serial / Lot Femoral Nail Retrograde Implanted:Qty: 1 on 10/04/2022 [place]ell Landry Jr[place] [facility] [place] Knee ANGEL 02/18/2031 2339-1128S / / [id number] Screw Nlk A3 Ti 4.5x36mm - [id number] Implanted:Qty: 1 on 10/04/2022 by Donell Landry Jr., [place] [facility] [place]GEL : TRAUMA [id number] / / 5.0 Compression Plate Implanted:Qty: 1 on 10/04/2022 by Donell Landry Jr., [place] [facility] [place]GEL [id number] / / Screw T2 Alpha Adv Lck 5x85 - [id number] Implanted:Qty: 1 on 10/04/2022 by Donell Landry Jr., [place] [facility] [place] Knee ANGEL : TRAUMA 07/24/2031 2361-5085S / / [id number] Screw T2 Alpha Adv Lck 5x65 - [id number] Implanted:Qty: 1 on 10/04/2022 by Donell Landry Jr., [place] [facility] [place]: Knee ANGEL : TRAUMA 07/24/2032 2361-5065S / / [id number] Screw T2 Alpha Adv Lck 5x85 - [id number] Implanted:Qty: 1 on 10/04/2022 by Donell Landry Jr., [place] [facility] [place]: Knee ANGEL : TRAUMA 02/22/2032 2361-5085S / / [id number] Screw T2 Alpha Lock 5x35mm - [id number] Implanted:Qty: 1 on 10/04/2022 by Donell Landry Jr., MD at OR [facility] Left: Knee ANGEL : TRAUMA 07/24/2032 2360-5035S / / [id number] Screw Gina Lk A3 Ti 5x12mm - [id number] Implanted:Qty: 1 on 10/04/2022 by Donell Landry Jr., [place] [facility] [place]GEL : TRAUMA [id number] / / Screw Gina Lk A3 Ti 5x16mm - [id number] Implanted:Qty: 1 on 10/04/2022 by Donell Landry Jr., [place] [facility] [place]GEL : TRAUMA [id number] / / Washer For 2.4mm/2.7mm/3.5m m - [id number] Implanted:Qty: 2 on 10/04/2022 by Donell Landry Jr., [place] [facility] [place]EL : TRAUMA [id number] / / Screw Nlk V2 T10 Ft 3.5x28mm - [id number] Implanted:Qty: 2 on 10/04/2022 by Donell Landry Jr., [place] [facility] [place]GEL : TRAUMA [id number] / / documented as of this encounter Advance Directives Documents on File Type Date Recorded Patient Resource Technician Expl anation Advance Directives and Living Will 10/03/2022 ADVANCE DIRECTIVE / LIVING WILL Power of Psychiatric Security Nurse 10/03/2022 POWER OF A TTORNEY Latest Code Status on File Code Status Date Activated Date Inactivated Comments Full Code 10/03/2022 10:34 PM 10/20/2022 1:41 PM This order reflects the patients wishes and were consensually agreed upon. Question Answer Comments Discussion of Advance Directives occurred with: Patient Code Status History Code Status Date Activated Date Inactivated Comments Full Code 12/03/2016 1:01 PM 12/04/2016 3:57 PM This order reflects the patients wishes and were consensually agreed upon. Question Answer Comments Discussion of Advance Directives occurred with: Not Discussed Does the patient have a Living Will? No Does the patient have Health Care Power of Psychiatric Security Nurse? No Care Teams Cold Patcher Relationship Specialty Start Date End Date Guera Jay MD [address] [place] [address] [place] [phone] PCP - General Family Medicine 06/19/23 documented as of this encounter
--- OUTSIDE RECORDS SUMMARY | 2023-12-18 23:27 | External Medical Summary | Summary of Care ---
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 1 Each 04/25/2022 Active Saline Nasal [place] 0.65 % Nasal Solution ([place]) Administer 1 [place] into nostril in the morning and 1 [place] at noon and 1 [place] in the evening and 1 [place] before bedtime. 30 mL 11/15/2022 Active Senna [...] 75 MG Oral Tablet (pLAVix)Indications :Atherosclerosis of [place] coronary artery of [place] heart with angina pectoris (HCC) TAKE ONE [...] abdomen and pelvis placed. Pt to use [facility] in [place]. Scheduling to fax orders. COPD, group B, [...] meds at length -albuterol rx sent to [facility] -Use Advair BID -has rescue kit -CXR, exercise pulse ox -f/u t/c and home visit next week -needs pulm f/u Mediastinal adenopathy 04/25/2022 Chronic back pain greater than 3 months duration 04/17/2022 Hx of actinic keratosis 10/24/2020 VALDOVINOS (dyspnea on exertion) 08/17/2020 Last Assessment & Plan: Per walk test in June 2022, patient did not require oxygen. 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 Pain managed through [facility] pain clinic. 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 12/22 Overview: CO-M2 [place] Last Assessment & Plan: Follows with GI [...] Medication Regimen o Class D - Inhaled Ipvkrorfwwduhp-EDPY-EBFZ Combination Inhaler (Trellegy) Exacerbation Mgt: o Rescue [...] 01/22/2019 07/29/2020 Coronary artery disease invo lving [place] coronary artery of [place] heart without angina pectoris 09/19/2017 10/31/2021 Overview: W/ angina on [place] (actinic keratosis) 01/23/201710/24 Bradycardia 06/14/2016 09/19/2017 Essential hypertension with goal blood pressure less than 140/90 10/31/2015 07/04/2022 Last Assessment & Plan: bp stable-not on meds Monitor Chronic cholecystitis 03/10/20092010 ACTIVE CASE MANAGEMENT 03/07/200904/10 Overview: Chela Morris, RN [phone] Other specified hypothyroidism 03/01/2008 08/16/2016 Overview: TSH [...] MEDICATION USE AGREEMENT 09/2010 Overview: Dr Parra [facility] Beta-hakan intolerance documented as of this encounter [...] preferred pharmacy and medication before forwarding?yes Pharmacy: [facility] Pending Prescriptions: Disp Refills [...] Pharmacy checking status. /Thank You, Thao Josue [facility] Inspector And Hand Packager III [facility] ([facility]) 12/06/2023, [...] 1:40 PM EST Office Visit Dermatology [address] [place] [address] Nia Hong PA-C [address] [place] [address] [place] [address] Health Maintenance Due Date Last Done Comments [...] this encounter Medical Devices Implanted Type Area Receptionist Device Identifier Shelf Expiration Date Model / Serial / Lot Femoral Nail Retrograde Implanted:Qty: 1 on 10/04/2022 by Donell Landry Jr., [place] [facility] [place] Knee ANGEL 02/18/2031 2339-1128S / / [id number] Screw Nlk A3 Ti 4.5x36mm - [id number] Implanted:Qty: 1 on 10/04/2022 by Donell Landry Jr., MD [place] [facility] [place]GEL : TRAUMA [id number] / / 5.0 Compression Plate Implanted:Qty: 1 on 10/04/2022 by Donell Landry Jr., MD at [place] [facility] [place] ANGEL [id number] / / Screw T2 Alpha Adv Lck 5x85 - [id number] Implanted:Qty: 1 on 10/04/2022 by Donell Landry Jr., MD at [place] [facility] [place] Left: Knee ANGEL : TRAUMA 07/24/2031 2361-5085S / / [id number] Screw T2 Alpha Adv Lck 5x65 - [id number] Implanted:Qty: 1 on 10/04/2022 by Donell Landry Jr., MD at [place] [facility] [place] Left: Knee ANGEL : TRAUMA 07/24/2032 2361-5065S / / [id number] Screw T2 Alpha Adv Lck 5x85 - [id number] Implanted:Qty: 1 on 10/04/2022 by Donell Landry Jr., MD at [place] [facility] [place] Left: Knee ANGEL : TRAUMA 02/22/2032 2361-5085S / / [id number] Screw T2 Alpha Lock 5x35mm - [id number] Implanted:Qty: 1 on 10/04/2022 by Donell Landry Jr., MD at [place] [facility] [place] Left: Knee ANGEL : TRAUMA 07/24/2032 2360-5035S / / [id number] Screw Gina Lk A3 Ti 5x12mm - [id number] Implanted:Qty: 1 on 10/04/2022 by Donell Landry Jr., MD at [place] [facility] [place] ANGEL : TRAUMA [id number] / / Screw Gina Lk A3 Ti 5x16mm - [id number] Implanted:Qty: 1 on 10/04/2022 by Dnoell Landry Jr., MD at [place] [facility] [place] ANGEL : TRAUMA [id number] / / Washer For 2.4mm/2.7mm/3.5m m - [id number] Implanted:Qty: 2 on 10/04/2022 by Donell Landry Jr., MD at [place] [facility] [place] ANGEL : TRAUMA [id number] / / Screw Nlk V2 T10 Ft 3.5x28mm - [id number] Implanted:Qty: 2 on 10/04/2022 by Donell Landry Jr., MD at [place] [facility] [place] ANGEL : TRAUMA [id number] / / documented as of this encounter Visit Diagnoses Diagnosis 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 Dyslipidemia, goal LDL below 100 Other and unspecified hyperlipidemia Atherosclerosis of [place] coronary artery of [place] heart with angina pectoris (HCC) BPH without obstruction/lower urinary tract symptoms Hypertrophy of prostate without urinary obstruction and other lower urinary tract symptoms (LUTS) Urge incontinence documented in this encounter Advance Directives Documents on File Type Date Recorded Patient Ampoule Sealer Expl anation Advance Directives and Living Will 10/03/2022 ADVANCE DIRECTIVE / LIVING WILL Power of Filenet Architect 10/03/2022 POWER OF A TTORNEY * Full [...] Power of Attor mel? No Care Teams President Ceo & Founder Relationship Specialty Start Date End Date Guera Jay MD [address] [place] [address] [place] [phone] PCP - General Family Medicine 06/19/23 documented as of this encounter
--- OUTSIDE RECORDS SUMMARY | 2023-12-18 23:28 | External Medical Summary | Summary of Care ---
Author Name Unknown Organization [facility] Address [address] [place] [address] Phone [phone] Care Team Providers Care Speech Communication Instructor Name Role Phone Guera Jay MD Primary Care Prov ider Reason for Visit * Reason Onset Date Comments Forms Request 09/18/2023 Encounter Details Date Type Department Care Team (Late st Contact Info) Description 09/18/2023 Telephone Family Medicine [address] [phone] Guera Jay MD [address] [place] [address] [place] [address] Forms Request Allergies Active Allergy Reactions Criticality Noted Date Comments Adhesive Tape Other (Please comment) Low 03/09/2009 Affected area blisters. Latex 11/23/2014 Patient denies this allergy documented as of this encounter (statuses as of 10/01/2023) Medications Medication Sig Dispensed Refills Start Date End Date Status Acetaminophen 500 MG Oral Tablet Take 2 Tablets by mouth 3 times a day as needed for Pain, Moderate or Pain, Severe. 0 Active Flutter DeviceIndications: Bronchiectasis without complication (HCC) Use for 10 min twice daily. pretreat with albuteorl. 1 Each 0 04/25/2022 Active Saline Nasal [place] 0.65 % Nasal Solution ([place]) Administer 1 [place] into nostril in the morning and 1 [place] at noon and 1 [place] in the evening and 1 [place] before bedtime. 30 mL 0 11/15/2022 Active [...] PACKET BEFORE BEDTIME 14 Each 0 11/22/2022 4 Active Vitamin D3 25 MCG (1000 UT) Oral Tablet (Vitamin D3) TAKE ONE TABLET BY MOUTH TWICE A DAY IN THE MORNING AND IN THE EVENING 60 Tablet 0 11/22/2022 4 Active Lidocaine 4 % External Patch (Aspercreme) APPLY 1 PATCH TOPICALLY TO AFFECTED AREA EVERY 12 HOURS 30 Patch 0 11/22/2022 4 Active Ferrous Sulfate 325 (65 Fe) MG Oral Tablet (Feosol) TAKE ONE TABLET BY MOUTH TWICE A DAY IN THE MORNING AND BEFORE BEDTIME 60 Tablet 0 11/22/2022 4 Active Additional Information Patient not taking.Reported on 12/07/2022 Dextran 70-Hypromellose 0.1-0.3 % Ophthalmic Solution INSTILL 1 DROP INTO AFFECTED EYE(S) FOUR TIMES A DAY NEEDED FOR DRY EYES 15 mL 1 11/22/2022 4 Active Docusate Sodium 100 MG Oral Capsule (Colace) TAKE ONE CAPSULE BY MOUTH TWICE A DAY IN THE MORNING AND BEFORE BEDTIME 60 Capsule 5 11/22/2022 4 Active Ipratropium-Albute rol 0.5-2.5 (3) MG/3ML Inhalation Solution (Duoneb) INHALE 1 VIAL VIA NEBULERS EVERY 6 HOURS NEEDED FOR SHORTNESS OF BREATH 360 mL 5 11/22/2022 4 Active Fluticasone Propionate 50 MCG/ACT Nasal Suspension (Flonase)Indicatio ns:Deviated nasal septum,Chronic maxillary sinusitis,Acquired deformity of nose INSTILL 2 SPRAYS INTO EACH NOSTRIL DAILY NEEDED 16 mL 5 11/22/2022 4 Active Finasteride 5 MG Oral Tablet (Proscar)Indicatio ns:BPH without obstruction/lower urinary tract symptoms,Urge incontinence TAKE ONE TABLET BY MOUTH EVERY DAY FOR PROSTATE 90 Tablet 3 11/22/2022 4 Active Clopidogrel Bisulfate 75 MG Oral Tablet (pLAVix)Indication s:Atherosclerosis of [place] coronary artery of [place] heart with angina pectoris (HCC) TAKE ONE TABLET BY MOUTH EVERY DAY IN THE MORNING 90 Tablet 3 11/22/2022 Active Atorvastatin Calcium 80 MG Oral Tablet (Lipitor)Indicatio ns:Dyslipidemia, goal LDL below 100 TAKE ONE TABLET BY MOUTH EVERY DAY IN THE MORNING 90 Tablet 3 11/22/2022 4 Active Albuterol Sulfate 108 (90 Base) MCG/ACT Inhalation Aerosol Powder Breath ActivatedIndicatio ns:Bronchiectasis without complication (HCC),Moderate persistent asthma without complication INHALE 2 PUFFS BY MOUTH EVERY 4 HOURS NEEDED FOR SHORTNESS OF BREATH, WHEEZING 3 Each 3 11/22/2022 4 Active Additional Information Patient not taking.Reported on [...] EVERY DAY 90 Tablet 3 11/22/2022 4 Active DULoxetine HCl 30 MG Oral Capsule [...] BY MOUTH EVERY MORNING 135 Tablet 0 09/11/2023 4 Discontinue d(Refill) documented as of this encounter (statuses as of 10/01/2023) Active Problems Problem Noted Date Diagnosed Date [...] and pelvis placed. Pt to use OSH [facility] in [place]. Scheduling to fax orders. COPD, group B, [...] meds at length -albuterol rx sent to [facility] -Use Advair BID -has rescue kit -CXR, exercise pulse ox -f/u t/c and home visit next week -needs pulm f/u Mediastinal adenopathy 04/25/2022 Chronic back pain greater than 3 months duration 04/17/2022 Hx of actinic keratosis 10/24/2020 VALDOVINOS (dyspnea on exertion) 08/17/2020 Last Assessment & Plan: Per walk test in June 2022, patient did not require oxygen. Cervical spinal stenosis 01/27/2020 Atherosclerosis of [place] co ronary artery of [place] heart with stable angina pectoris 10/02/2019 Overview: [...] replacement 1984 and 2006. Pain managed through [facility] pain clinic. 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 12/22 Overview: CO-M2 [place] Last Assessment & Plan: Follows with GI [...] as of this encounter (statuses as of 10/01/2023) Resolved Problems Problem Noted Date Diagnosed Date [...] Medication Regimen o Class D - Inhaled Ropzdynowkwrar-GIRT-ELSL Combination Inhaler (Trellegy) Exacerbation Mgt: o Rescue [...] 01/22/2019 07/29/2020 Coronary artery disease invo lving [place] coronary artery of [place] heart without angina pectoris 09/19/2017 10/31/2021 Overview: W/ angina on PL [place] (actinic keratosis) 01/23/201710/24 Bradycardia 06/14/2016 09/19/2017 Essential hypertension with goal blood pressure less than 140/90 10/31/2015 07/04/2022 Last Assessment & Plan: bp stable-not on meds Monitor Chronic cholecystitis 03/10/20092010 ACTIVE CASE MANAGEMENT 03/07/200904/10 Overview: Chela Morris, RN [phone] Other specified hypothyroidism 03/01/2008 08/16/2016 Overview: TSH [...] MEDICATION USE AGREEMENT 09/2010 Overview: Dr Parra [facility] Beta-hakan intolerance documented as of this encounter (statuses as of 10/01/2023) Immunizations Name Administration Dates Next Due COVID-19 [...] encounter Miscellaneous Notes * Telephone Encounter - Gera Ruff LPN - 10/01/2023 3:37 PM EDT Form Filled out and signed on 09/13/23 FIMS into chart on 09/18/23 Re faxed on 10/01/2023 with success * Telephone Encounter - Guera Jay MD - 10/01/2023 1:07 PM EDT THIS FORM WAS COMPLETED LAST WEEK * Telephone Encounter - Chad Gr OSA - 09/30/2023 8:50 AM EDT Ralph from [employer] called to follow up on this patient's medical concerns. Please fill out theform he faxed over and send it back to him. [place]. Thanks. His fax number is [phone]. * Telephone Encounter - Zee Valverde OSA - 09/25/2023 3:40 PM EDT Reason for call: Checking on status of form. Unable to get nurse on phone. * Telephone Encounter - Anjali Isbell LPN - 09/19/2023 2:47 PM EDT Can watch for form PCP not in office until Saturday * Telephone Encounter - Alejandro Jett OSA - 09/18/2023 11:33 AM EDT Caller requesting the following information to be faxed: Name/Company of caller: [employer] Information requested to be faxed: Letter about medical concerns for Patient. Fax number: [phone] Attention to Name/Company: Ralph [employer] Any additional information?: Form was faxed on 09/16/23 top section regarding concerns for Patients needs filled out. documented in this encounter Plan of Treatment Upcoming Encounters Date Type Department Care Team (Late st Contact Info) Description 2024 1:40 PM EDT Office Visit Family Medicine [address] [place] [phone] Guera Jay MD [address] [place] [address] [place] [address] 06/22/2024 1:40 PM EST Office Visit Dermatology [address] [place] [phone] Nia Hong PA-C [address] [place] [address] [place] [address] Health Maintenance Due Date Last Done Comments Alpha-1 Antitrypsin 02/06/1963 COLONOSCOPY-EVERY 5 YRS AGES 18-100 08/30/2021 08/30/2016 COVID-19 Vaccine ( season) 2023 10/13/2020, 09/22/2020 O2 ASSESSMENT COMPLETED IN PAST YEAR FOR COPD 10/05/2023 10/04/2022 TSH 01/10/2024 01/09/2023, 12/22, 11/14/2022, Additional history exists Mendez's Esophagus Surveilance 06/02/2024 06/02/2021, 06/02/2021, 01/08/2019, Additional history exists DTaP,Tdap,and Td Vaccines (4 - Td or Tdap) 10/17/2025 10/18/2015, 08/13/2009, 08/28/2007 Pneumococcal Vaccine: 65+ Years Completed 08/16/2014, 06/30/2012, 04/13/2004, Additional history exists Albumin/Creatinine Ratio Discontinued 07/27/2021 Zoster Vaccines Completed [...] this encounter Medical Devices Implanted Type [employer] Partner Device Identifier Shelf Expiration Date Model / Serial / Lot Femoral Nail Retrograde Implanted:Qty: 1 on 10/04/2022 by Donell Landry Jr., MD at OR [facility] Left: Knee ANGEL 02/18/2031 [id number] / / [id number] Screw Nlk A3 Ti 4.5x36mm - [id number] Implanted:Qty: 1 on 10/04/2022 by Donell Landry Jr., MD at OR [facility] ANGEL : TRAUMA [id number] / / 5.0 Compression Plate Implanted:Qty: 1 on 10/04/2022 by Donell Landry Jr., MD at OR [facility] ANGEL [id number] / / Screw T2 Alpha Adv Lck 5x85 - [id number] Implanted:Qty: 1 on 10/04/2022 by Donell Landry Jr., MD at OR [facility] Left: Knee ANGEL : TRAUMA 07/24/2031 [id number] / / [id number] Screw T2 Alpha Adv Lck 5x65 - [id number] Implanted:Qty: 1 on 10/04/2022 by Donell Landry Jr., MD at OR [facility] Left: Knee ANGEL : TRAUMA 07/24/2032 [id number] / / [id number] Screw T2 Alpha Adv Lck 5x85 - [id number] Implanted:Qty: 1 on 10/04/2022 by Donell Landry Jr., MD at OR [facility] Left: Knee ANGEL : TRAUMA 02/22/2032 [id number] / / [id number] Screw T2 Alpha Lock 5x35mm - [id number] Implanted:Qty: 1 on 10/04/2022 by Donell Landry Jr., MD at OR [facility] Left: Knee ANGEL : TRAUMA 07/24/2032 [id number] / / [id number] Screw Gina Lk A3 Ti 5x12mm - [id number] Implanted:Qty: 1 on 10/04/2022 by Donell Landry Jr., MD at OR [facility] ANGEL : TRAUMA [id number] / / Screw Gina Lk A3 Ti 5x16mm - [id number] Implanted:Qty: 1 on 10/04/2022 by Donell Landry Jr., MD at OR [facility] ANGEL : TRAUMA [id number] / / Washer For 2.4mm/2.7mm/3.5m m - [id number] Implanted:Qty: 2 on 10/04/2022 by Donell Landry Jr., MD at OR [facility] ANGEL : TRAUMA [id number] / / Screw Nlk V2 T10 Ft 3.5x28mm - [id number] Implanted:Qty: 2 on 10/04/2022 by Donell Landry Jr., MD at OR [facility] ANGEL : TRAUMA [id number] / / documented as of this encounter Advance Directives Documents on File Type Date Recorded Patient Conference Organizer Expl anation Advance Directives and Living Will 10/03/2022 ADVANCE DIRECTIVE / LIVING WILL Power of Clinical Nurse 10/03/2022 POWER OF A TTORNEY Latest [...] the patient have Health Care Power of Clinical Nurse? No Care Teams Speech Communication Instructor Relationship Specialty Start Date End Date Guera Jay MD [address] [place] [address] [place] [address] PCP - General Family Medicine 06/19/23 documented as of this encounter
--- OUTSIDE RECORDS SUMMARY | 2023-12-18 23:28 | External Medical Summary | Summary of Care ---
Author Name Unknown Organization [facility] Address [address] [place] [address] Phone [phone] Care Team Providers Care Securities Clerk Name Role Phone Guera Jay MD Primary Care Prov ider Reason for Referral * Precert (Within 10 days (routine)) - Closed Specialty Diagnoses / Procedures Referred By Contac t Referred To Contact Radiology Diagnoses ILD (interstitial lung disease) (HCC) Mediastinal adenopathy Procedures CT CHEST WO CONTRAST Brody Palmer MD [address] [place] [address] Referral ID Status Reason Start Date Expiration Date Visits Re quested Visits Authorized [id number] Closed 05/09/[phone] Reason for Visit * Reason Onset Date Comments Test Results 05/09/2022 CT Chest Encounter Details Date Type Department Care Team (Late st Contact Info) Description 05/09/2022 Telephone Pulmonary Medicine, [facility] [address] [place] [address] Brody Palmer MD Test Results (CT Chest) Allergies Active Allergy Reactions Criticality Noted Date Comments Adhesive Tape Other (Please comment) Low 03/09/2009 Affected area blisters. Latex 11/23/2014 Patient denies this allergy documented as of this encounter (statuses as of 07/02/2023) Medications Medication Sig Dispensed Refills Start Date End Date Status Acetaminophen 500 MG Oral Tablet Take 2 Tablets by mouth 3 times a day as needed for Pain, Moderate or Pain, Severe. 0 Active Flutter DeviceIndication s:Bronchiectasis without complication (HCC) Use for 10 min twice daily. pretreat with albuteorl. 1 Each 0 2 Active Cholecalciferol (VITAMIN D) 1000 UNITS Tablet Take 1 Tablet by mouth. 2 a day 0 11/16/19 23 Discontinued Docusate Sodium 100 MG Oral Capsule Take 1 Capsule by mouth in the morning and 1 Capsule before bedtime. 0 10/20/19 23 Discontinued Amitriptyline HCl 25 MG Oral Tablet (Elavil) Take 1 tablet by mouth daily for 1 week, then increase to 2 tablets once a day 180 Tablet 3 1 06/12/20 22 Discontinued(Ref ill) Tamsulosin HCl 0.4 MG Oral Capsule (Flomax)Indicati ons:BPH with obstruction/lowe r urinary tract symptoms TAKE ONE CAPSULE BY MOUTH EVERY DAY 90 Capsule 3 2 06/12/20 22 Discontinued(Ref ill) Lidocaine-Priloc celio 2.5-2.5 % External Cream (Emla)Indication s:Post herpetic neuralgia Apply small amount to area of pain every 8 hours as needed 30 g 1 2 12/15/19 23 Discontinued Polyvinyl Alcohol 1.4 % Ophthalmic Solution (Artificial Tears) Instill into the right eye 1 Drop as needed in the morning AND 1 Drop as needed at noon AND 1 Drop as needed in the evening AND 1 Drop as needed before bedtime for Pain, Moderate, Irritation, Dry eyes or Itching. 15 mL 1 2 11/03/19 23 Discontinued(Formerly [facility] List Clean Up) DULoxetine HCl 30 MG Oral Capsule Delayed Release Particles (Cymbalta)Indica tions:Other chronic pain,Current moderate episode of major depressive disorder without prior episode (HCC),Work related injury TAKE ONE CAPSULE BY MOUTH EVERY EVENING 90 Capsule 1 2 06/12/20 22 Discontinued(Ref ill) Oxybutynin Chloride ER 10 MG Oral Tablet Extended Release 24 Hour (Ditropan XL)Indications:B enign non-nodular prostatic hyperplasia without lower urinary tract symptoms,Urge incontinence TAKE ONE TABLET BY MOUTH EVERY DAY - DO NOT CRUSH, CUT OR CHEW 90 Tablet 1 2 06/12/20 22 Discontinued(Ref ill) Atorvastatin Calcium 80 MG Oral Tablet (Lipitor)Indicat ions:Dyslipidemi a, goal LDL below 100 TAKE ONE TABLET BY MOUTH EVERY DAY 90 Tablet 1 2 06/12/20 22 Discontinued(Ref ill) DULoxetine HCl 60 MG Oral Capsule Delayed Release Particles (Cymbalta) TAKE 1 CAPSULE BY MOUTH EVERY DAY IN THE MORNING 90 Capsule 1 2 06/12/20 22 Discontinued(Ref ill) Fluticasone Propionate 50 MCG/ACT Nasal Suspension (Flonase)Indicat ions:Deviated nasal septum,Chronic maxillary sinusitis,Acquir ed deformity of nose ADMINISTER 2 SPRAYS INTO EACH NOSTRIL DAILY NEEDED 16 g 5 2 07/10/19 23 Discontinued Finasteride 5 MG Oral Tablet (Proscar)Indicat ions:BPH without obstruction/lowe r urinary tract symptoms,Urge incontinence TAKE ONE TABLET BY MOUTH EVERY DAY FOR PROSTATE 90 Tablet 3 2 06/12/20 22 Discontinued(Ref ill) Pantoprazole Sodium 40 MG Oral Tablet Delayed Release (Protonix)Indica tions: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 36 g 3 2 08/03/19 23 Discontinued(Formerly [facility] List Clean Up) Hospital, Clinic, or Other Facility Administered Medication Ordered Dose Route Frequency Start Date End Date Status albuterol sulfate (PROVENTIL) (2.5 MG/3ML) 0.083% inhalation solution 2.5 mgIndications:Asth ma with severity to be determined,Other emphysema (HCC) 2.5 mg NEBULIZER Q4H PRN 03/12/2019 08/22/2022 Discontin ued documented as of this encounter (statuses as of 07/02/2023) Active Problems Problem Noted Date Diagnosed Date Moderate persistent asthma without complication 04/25/2022 Bronchiectasis without complication 04/25/2022 Alveolar emphysema of lung 04/25/2022 Last Assessment & Plan: Wheezing noted. O2 marginal on RA Very confused about meds -reviewed meds at length -albuterol rx sent to [facility] -Use Advair BID -has rescue kit -CXR, exercise pulse ox -f/u t/c and home visit next week -needs pulm f/u Mediastinal adenopathy 04/25/2022 Chronic back pain greater than 3 months duration 04/17/2022 Hx of actinic keratosis 10/24/2020 VALDOVINOS (dyspnea on exertion) 08/17/2020 Last Assessment & Plan: Per walk test in June 2022, patient did not require oxygen. Cervical spinal stenosis 01/27/2020 Atherosclerosis of [place] co ronary artery of [place] heart with stable angina pectoris 10/02/2019 Overview: [...] 1984 and 2006. Pain managed through [facility] pain clinic. 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 12/22 Overview: CO-M2 [place] Last Assessment & Plan: Follows with GI [...] as of this encounter (statuses as of 07/02/2023) Resolved Problems Problem Noted Date Diagnosed Date Resolved Date Hypertensive heart disease w ithout congestive heart [...] 01/22/2019 07/29/2020 Coronary artery disease invo lving [place] coronary artery of [place] heart without angina pectoris 09/19/2017 10/31/2021 Overview: W/ angina on [place] (actinic keratosis) 01/23/201710/24 Bradycardia 06/14/2016 09/19/2017 Essential hypertension with goal blood pressure less than 140/90 10/31/2015 07/04/2022 Last Assessment & Plan: bp stable-not on meds Monitor Chronic cholecystitis 03/10/20092010 ACTIVE CASE MANAGEMENT 03/07/200904/10 Overview: Chela Morris, RN [phone] Other specified hypothyroidism 03/01/2008 08/16/2016 Overview: TSH [...] USE AGREEMENT 09/2010 Overview: Dr Parra [facility] Beta-kassie intolerance documented as of this encounter (statuses as of 07/02/2023) Immunizations Name Administration Dates Next Due COVID-19 mRNA, LNP-s, No Pre serve, 2-Dose Series (GOGETMi / ?.??) 10/13/2020,09/22/2020 Pneumococcal Conjugate Vacc, 13 Valent (Prevnar) 08/16/2014 Pneumococcal Polysaccharide PPV23 (Pneumovax) 06/30/2012 Season Influenza, Quad, PF, Adjuvanted, 65+ Yrs, IM (FLUAD) 03/21/2020 Seasonal Influenza, PF, 6 M & above, IM , (FluLaval or Fluzone) 05/02/2018,04/29/2017 Seasonal Influenza, Quadriva lent Hd (Fluzone Hd) 04/17/2022,04/26/2021 Seasonal Influenza, Quadriva lent, No Preserve, IM [...] on file documented as of this encounter Miscellaneous Notes * Telephone Encounter - Adamaris Hannon CRNP - 06/04/2022 9:40 AM EST Order previously placed. Closing encounter. * Telephone Encounter - Genesis May LPN - 06/01/2022 11:15 AM EST Still unable to reach the pt by phn. A letter has been sent. Please place order for repeat CT in 1 year. Scheduling please set appt and call with the time and date * Telephone Encounter - Alexandra Nash LPN - 05/15/2022 2:37 PM EST Pt called back, but incorrect number was given as call back number. Left another message on the number given as his 's mobile number. * Telephone Encounter - Alexandra Nash LPN - 05/15/2022 10:16 AM EST LM asking pt to return call. * Telephone Encounter - Brody Palmer MD - 05/09/2022 1:24 PM EST Cat scan improved. Residual scarring at left base. Stable to improved adenopathy. Recommend repeat ct chest in 1 yr (forwarding to adamaris to sign order so it doesn't get lost). Please let patient knowresults documented in this encounter Plan of Treatment Upcoming Encounters Date Type Department Care Team (Late st Contact Info) Description 2024 1:40 PM EDT Office Visit Family Medicine [address] [place] [phone] Guera Jay MD [address] [place] [address] [place] [address] 06/22/2024 1:40 PM EST Office Visit Dermatology [address] [place] [address] Nia Hong PA-C [address] [place] [address] [place] [phone] Scheduled Orders Name Type Priority Associated Diagnoses Orde r Schedule CT CHEST WO CONTRAST Medical Imaging Routine ILD (interstitial lung disease) (HCC) Mediastinal adenopathy Expected: 05/09/2023, Expires: 06/08/2023 Health Maintenance Due Date Last Done Comments Alpha-1 Antitrypsin 02/06/1963 Depression Screening 01/23/2020 01/22/2019 COLONOSCOPY-EVERY 5 YRS AGES 18-100 08/30/2021 08/30/2016 [...] documented as of this encounter Medical Devices Not on filedocumented as of this encounter Visit Diagnoses Diagnosis ILD (interstitial lung disease) (HCC)- Primary Postinflammatory pulmonary fibrosis Mediastinal adenopathy Enlargement of lymph nodes documented in this encounter Advance Directives Documents on File Type Date Recorded Patient Table Lever Operator Expl anation Advance Directives and Living Will 10/03/2022 ADVANCE DIRECTIVE / LIVING WILL Power of Electric Motor Winder 10/03/2022 POWER OF A TTORNEY Latest Code [...] the patient have Health Care Power of Electric Motor Winder? No Care Teams Securities Clerk Relationship Specialty Start Date End Date Guera Jay MD [address] [place] [address] [place] [phone] PCP - General Family Medicine 01/22/19 06/11/23 documented as of this encounter
--- OUTSIDE RECORDS SUMMARY | 2023-12-18 23:28 | External Medical Summary | Summary of Care ---
Author Name Unknown Organization [facility] Address [address] [place] [address] Phone [phone] Care Team Providers Care Masseur/Masseuse Name Role Phone Guera Kumar MD Primary Care Prov ider Reason for Visit * Reason Comments Medication Refill Encounter Details Date Type Department Care Team (Late st Contact Info) Description 09/10/2023 Refill [phone] Guera Kumar MD [address] [place] [address] [place] [phone] Allergies Active Allergy Reactions Criticality Noted Date Comments Adhesive Tape Other (Please comment) Low 03/09/2009 Affected area blisters. Latex 11/23/2014 Patient denies this allergy documented as of this encounter (statuses as of 09/11/2023) Medications Medication Sig Dispensed Refills Start Date End Date Status Acetaminophen 500 MG Oral Tablet Take 2 Tablets by mouth 3 times a day as needed for Pain, Moderate or Pain, Severe. 0 Active Flutter DeviceIndications: Bronchiectasis without complication (HCC) Use for 10 min twice daily. pretreat with albuteorl. 1 Each 0 04/25/2022 Active Saline Nasal [place] 0.65 % Nasal Solution ([place]) Administer 1 [place] into nostril in the morning and 1 [place] at noon and 1 [place] in the evening and 1 [place] before bedtime. 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 Pt to use OSH [facility] in [place]. Scheduling to fax orders. COPD, group B, [...] hours around the clock o Other/Additional Comments: anororik Exacerbation plan o Solumedrol 60mg IM/IV o Chest Xray Moderate persistent asthma without complication 04/25/2022 Bronchiectasis without complication 04/25/2022 Alveolar emphysema of lung 04/25/2022 Last Assessment & Plan: Wheezing noted. O2 marginal on RA Very confused about meds -reviewed meds at length -albuterol rx sent to [facility] -Use Advair BID -has rescue [...] oxygen. 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 Pain managed through [facility] pain clinic. 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 12/22 Overview: CO-M2 [place] Last Assessment & Plan: Follows with GI [...] as of this encounter (statuses as of 09/11/2023) Resolved Problems Problem Noted Date Diagnosed Date [...] Medication Regimen o Class D - Inhaled Fmjgiyrgkusnbg-LNCP-[id number] Combination Inhaler ([place]) Exacerbation Mgt: o Rescue Kit in place [...] 01/22/2019 07/29/2020 Coronary artery disease invo lving hughes coronary artery of hughes heart without angina pectoris 09/19/2017 10/31/2021 Overview: W/ angina on [place] (actinic keratosis) 01/23/201710/24 Bradycardia 06/14/2016 09/19/2017 Essential hypertension with goal blood pressure less than 140/90 10/31/2015 07/04/2022 Last Assessment & Plan: bp stable-not on meds Monitor Chronic cholecystitis 03/10/20092010 ACTIVE CASE MANAGEMENT 03/07/200904/10 Overview: Chela Morris, RN [phone] Other specified hypothyroidism 03/01/2008 08/16/2016 Overview: TSH [...] MEDICATION USE AGREEMENT 09/2010 Overview: Dr Parra [facility] Beta-hakan intolerance 04/ documented as of this encounter (statuses as of 09/11/2023) Immunizations Name Administration Dates Next Due COVID-19 [...] encounter Miscellaneous Notes * Telephone Encounter - Guera Kumar MD - 09/11/2023 8:27 AM EDT Signed Prescriptions: Disp Refills Losartan Potassium 50 MG Oral Tablet (Coza*30 Tab*5 Sig: TAKE ONE TABLET BY MOUTH EVERY DAY IN THE MORNINGAuthorizing Provider: GUERA KUMAR Metoprolol Succinate ER 25 MG Oral Tablet *135 Ta*0 Sig: TAKE ONE AND ONE-HALF TABLETS BY MOUTH EVERY MORNINGAuthorizing Provider: GUERA KUMAR documented in this encounter Plan of Treatment Upcoming Encounters Date Type Department Care Team (Late st Contact Info) Description 2024 1:40 PM EDT Office Visit [address] [phone] Guera Kumar MD [address] [place] [address] [place] [phone] 06/22/2024 1:40 PM EST Office Visit Dermatology [address] [place] [phone] Nia Hong PA-C [address] [place] [address] [place] [phone] Health Maintenance Due Date Last Done Comments Alpha-1 Antitrypsin 02[birth year]06/1963 Depression Screening 01/23/2020 01/22/2019 COLONOSCOPY-EVERY 5 YRS AGES 18-100 08/30/2021 08/30/2016 COVID-19 Vaccine (2022- season) 2023 10/13/2020, 09/22/2020 O2 ASSESSMENT COMPLETED [...] this encounter Medical Devices Implanted Type Area Communications Officer Device Identifier Shelf Expiration Date Model / Serial / Lot Femoral Nail Retrograde Implanted:Qty: 1 on 10/04/2022 by Donell Landry Jr., MD at [place] [facility] [place] Left: Knee ANGEL 02/18/2031 [id number] / / [id number] Screw Nlk A3 Ti 4.5x36mm - [id number] Implanted:Qty: 1 on 10/04/2022 by Donell Landry Jr., MD at [place] [facility] [place] ANGEL : TRAUMA [id number] / / 5.0 Compression Plate Implanted:Qty: 1 on 10/04/2022 by Donell Landry Jr., MD at [place] [facility] [place] ANGEL [id number] / / Screw T2 Alpha Adv Lck 5x85 - [id number] Implanted:Qty: 1 on 10/04/2022 by Donell Landry Jr., MD at [place] [facility] [place] Left: Knee ANGEL : TRAUMA 07/24/2031 2361-5085S / / [id number] Screw T2 Alpha Adv Lck 5x65 - [id number] Implanted:Qty: 1 on 10/04/2022 by Donell Landry Jr., MD at [place] [facility] [place] Left: Knee ANGEL : TRAUMA 07/24/2032 2361-5065S / / [id number] Screw T2 Alpha Adv Lck 5x85 - [id number] Implanted:Qty: 1 on 10/04/2022 by Donell Landry Jr., MD at [place] [facility] [place] Left: Knee ANGEL : TRAUMA 02/22/2032 2361-5085S / / [id number] Screw T2 Alpha Lock 5x35mm - [id number] Implanted:Qty: 1 on 10/04/2022 by Donell Landry Jr., MD at [place] [facility] [place] Left: Knee ANGEL : TRAUMA 07/24/2032 2360-5035S / / [id number] Screw Gina Lk A3 Ti 5x12mm - [id number] Implanted:Qty: 1 on 10/04/2022 by Donell Landry Jr., MD at [place] [facility] [place] ANGEL : TRAUMA [id number] / / Screw Gina Lk A3 Ti 5x16mm - [id number] Implanted:Qty: 1 on 10/04/2022 by Donell Landry Jr., MD at [place] [facility] [place] ANGEL : TRAUMA [id number] / / Washer For 2.4mm/2.7mm/3.5m m - [id number] Implanted:Qty: 2 on 10/04/2022 by Donell Landry Jr., MD at [place] [facility] [place] ANGEL : TRAUMA [id number] / / Screw Nlk V2 T10 Ft 3.5x28mm - [id number] Implanted:Qty: 2 on 10/04/2022 by Donell Landry Jr., MD at [place] [facility] [place] ANGEL : TRAUMA [id number] / / documented as of this encounter Advance Directives Documents on File Type Date Recorded Patient Belt Glass Sander Expl anation Advance Directives and Living Will 10/03/2022 ADVANCE DIRECTIVE / LIVING WILL Power of Shoes Hand Sewer 10/03/2022 POWER OF A TTORNEY Latest Code [...] the patient have Health Care Power of Shoes Hand Sewer? No Care Teams Masseur/Masseuse Relationship Specialty Start Date End Date Guera Kumar MD [address] [place] [address] [place] [phone] PCP - General Family Medicine 06/19/23 documented as of this encounter
--- OUTSIDE RECORDS SUMMARY | 2023-12-18 23:28 | External Medical Summary | Summary of Care ---
Author Name Unknown Organization [facility] Address [address] [place] [address] Phone [phone] Care Team Providers Care Welt Slasher Name Role Phone Guera Jay MD Primary Care Prov ider Reason for Visit * Reason Onset Date Comments Advice 08/29/2023 Encounter Details Date Type Department Care Team (Late st Contact Info) Description 08/29/2023 Telephone Family [address] [phone] Guera Jay MD [address] [place] [address] [place] [phone] Advice Allergies Active Allergy Reactions Criticality Noted Date Comments Adhesive Tape Other (Please comment) Low 03/09/2009 Affected area blisters. Latex 11/23/2014 Patient denies this allergy documented as of this encounter (statuses as of 08/29/2023) Medications Medication Sig Dispensed Refills Start Date End Date Status Acetaminophen 500 MG Oral Tablet Take 2 Tablets by mouth 3 times a day as needed for Pain, Moderate or Pain, Severe. 0 Active Flutter DeviceIndications:B ronchiectasis without complication (HCC) Use for 10 min twice daily. pretreat with albuteorl. 1 Each 0 04/25/2022 Active Saline Nasal [place] 0.65 % Nasal Solution ([place]) Administer 1 [place] into nostril in the morning and 1 [place] at noon and 1 [place] in the evening and 1 [place] before bedtime. 30 mL 0 11/15/2022 Active [...] DAY FOR PROSTATE 90 Tablet 3 11/22/2022 11/22/2023 Active Clopidogrel Bisulfate 75 MG Oral Tablet (pLAVix)Indications :Atherosclerosis of [place] coronary artery of [place] heart with angina pectoris (HCC) TAKE ONE [...] every evening 90 Capsule 2 11/22/2022 Active Losartan Potassium 50 MG Oral Tablet (Cozaar) TAKE ONE TABLET BY MOUTH EVERY DAY IN THE MORNING 30 Tablet 5 05/24/2023 05/23/2024 Active Gabapentin 300 MG Oral Capsule (Neurontin) TAKE ONE CAPSULE BY MOUTH THREE TIMES A DAY IN THE MORNING, AT NOON AND BEFORE BEDTIME 90 Capsule 5 05/27/2023 Active Metoprolol Succinate ER 25 MG Oral Tablet Extended Release 24 Hour (toPROL XL) TAKE ONE AND ONE-HALF TABLETS BY MOUTH EVERY MORNING 135 Tablet 0 05/27/2023 05/26/2024 Active Amitriptyline HCl 25 MG Oral Tablet [...] EVERY EVENING 90 Capsule 3 08/16/2023 Active documented as of this encounter (statuses as of 08/29/2023) Active Problems Problem Noted Date Diagnosed Date [...] and pelvis placed. Pt to use OSH [facility] in [place]. Scheduling to fax orders. COPD, group B, [...] around the clock o Other/Additional Comments: rik ferire Exacerbation plan o Solumedrol 60mg IM/IV o Chest Xray Moderate persistent asthma without complication 04/25/2022 Bronchiectasis without complication 04/25/2022 Alveolar emphysema of lung 04/25/2022 Last Assessment & Plan: Wheezing noted. O2 marginal on RA Very confused about meds -reviewed meds at length -albuterol rx sent to [facility] -Use Advair BID -has rescue kit -CXR, exercise pulse ox -f/u t/c and home visit next week -needs pulm f/u Mediastinal adenopathy 04/25/2022 Chronic back pain greater than 3 months duration 04/17/2022 Hx of actinic keratosis 10/24/2020 VALDOVINOS (dyspnea on exertion) 08/17/2020 Last Assessment & Plan: Per walk test in June 2022, patient did not require oxygen. Cervical spinal stenosis 01/27/2020 Atherosclerosis of [place] co ronary artery of [place] heart with stable angina pectoris 10/02/2019 Overview: [...] replacement 1984 and 2006. Pain managed through [facility] pain clinic. 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 12/22 Overview: CO-M2 [place] Last Assessment & Plan: Follows with GI [...] as of this encounter (statuses as of 08/29/2023) Resolved Problems Problem Noted Date Diagnosed Date [...] Medication Regimen o Class D - Inhaled Wctvstbevdjjpw-MMUL-HQGU Combination Inhaler (Trellegy) Exacerbation Mgt: o Rescue [...] 01/22/2019 07/29/2020 Coronary artery disease invo lving [place] coronary artery of [place] heart without angina pectoris 09/19/2017 10/31/2021 Overview: W/ angina on [place] (actinic keratosis) 01/23/201710/24 Bradycardia 06/14/2016 09/19/2017 Essential hypertension with goal blood pressure less than 140/90 10/31/2015 07/04/2022 Last Assessment & Plan: bp stable-not on meds Monitor Chronic cholecystitis 03/10/20092010 ACTIVE CASE MANAGEMENT 03/07/200904/10 Overview: Chela Morris, RN [phone] Other specified hypothyroidism 03/01/2008 08/16/2016 Overview: TSH [...] MEDICATION USE AGREEMENT 09/2010 Overview: Dr Parra [facility] Beta-hakan intolerance documented as of this encounter (statuses as of 08/29/2023) Immunizations Name Administration Dates Next Due COVID-19 mRNA, LNP-s, No Pre serve, 2-Dose Series (payasUgym) 10/13/2020,09/22/2020 Pneumococcal Conjugate Vacc, 13 Valent (Prevnar) [...] Telephone Encounter - Nel Alston RN - 08/29/2023 1:45 PM EST We do not do forms for Water Bills, we will ONLY fill out forms for Electricity IF the pt has Oxygen or Cpap was notified * Telephone Encounter - Darlene Akbar OSA - 08/29/2023 1:35 PM EST Ofelia called and stated that they received a form from [employer] in order to get assistance on their water bill. She states that they need Dr. Elio Retana's license number and signature on the paper but they haveno way to get to the clinic because they do not have a car. They are looking for advice on what to do to get this filled out. She states that it needs to be filled out KENYATTA. documented in this encounter Plan of Treatment Upcoming Encounters Date Type Department Care Team (Late st Contact Info) Description 2024 1:40 PM EDT Office Visit Family Medicine [address] [place] [phone] Guera Jay MD [address] [place] [address] [place] [phone] 06/22/2024 1:40 PM EST Office Visit Dermatology [address] [place] [address] Nia Hong PA-C [address] [place] [address] [place] [phone] Health Maintenance Due Date Last Done Comments [...] this encounter Medical Devices Implanted Type Area Nurse Reviewer Device Identifier Shelf Expiration Date Model / Serial / Lot Femoral Nail Retrograde Implanted:Qty: 1 on 10/04/2022 by Gris Middleton, Donell Oliver MD at [place] [facility] [place] Left: Knee ANGEL 02/18/2031 2339-1128S / / [id number] Screw Nlk A3 Ti 4.5x36mm - [id number] Implanted:Qty: 1 on 10/04/2022 by Donell Landry Jr., MD at OR [facility] [place] ANGEL : TRAUMA [id number] / / 5.0 Compression Plate Implanted:Qty: 1 on 10/04/2022 by Donell Landry Jr., MD at OR [facility] [place] ANGEL [id number] / / Screw T2 Alpha Adv Lck 5x85 - [id number] Implanted:Qty: 1 on 10/04/2022 by Donell Landry Jr., MD at OR [facility] [place] Left: Knee ANGEL : TRAUMA 07/24/2031 2361-5085S / / [id number] Screw T2 Alpha Adv Lck 5x65 - [id number] Implanted:Qty: 1 on 10/04/2022 by Donell Landry Jr., MD at OR [facility] [place] Left: Knee ANGEL : TRAUMA 07/24/2032 2361-5065S / / [id number] Screw T2 Alpha Adv Lck 5x85 - [id number] Implanted:Qty: 1 on 10/04/2022 by Donell Landry Jr., MD at OR [facility] [place] Left: Knee ANGEL : TRAUMA 02/22/2032 2361-5085S / / [id number] Screw T2 Alpha Lock 5x35mm - [id number] Implanted:Qty: 1 on 10/04/2022 by Donell Landry Jr., MD at OR [facility] [place] Left: Knee ANGEL : TRAUMA 07/24/2032 2360-5035S / / [id number] Screw Gina Lk A3 Ti 5x12mm - [id number] Implanted:Qty: 1 on 10/04/2022 by Donell Landry Jr., MD at OR [facility] [place] ANGEL : TRAUMA [id number] / / Screw Gina Lk A3 Ti 5x16mm - [id number] Implanted:Qty: 1 on 10/04/2022 by Donell Landry Jr., MD at OR [facility] [place] ANGEL : TRAUMA [id number] / / Washer For 2.4mm/2.7mm/3.5m m - [id number] Implanted:Qty: 2 on 10/04/2022 by Donell Landry Jr., MD at OR [facility] [place] ANGEL : TRAUMA [id number] / / Screw Nlk V2 T10 Ft 3.5x28mm - [id number] Implanted:Qty: 2 on 10/04/2022 by Donell Landry Jr., MD at [facility] ANGEL : TRAUMA [id number] / / documented as of this encounter Advance Directives Documents on File Type Date Recorded Patient Tool Design Draftsperson Expl anation Advance Directives and Living Will 10/03/2022 ADVANCE DIRECTIVE / LIVING WILL Power of Well Reactivator Operator 10/03/2022 POWER OF A TTORNEY Latest Code [...] the patient have Health Care Power of Well Reactivator Operator? No Care Teams Welt Slasher Relationship Specialty Start Date End Date Guera Jay MD [address] [place] [address] [place] [phone] PCP - General Family Medicine 06/19/23 documented as of this encounter
--- OUTSIDE RECORDS SUMMARY | 2023-12-18 23:28 | External Medical Summary | Summary of Care ---
Author Name Unknown Organization [facility] Address [address] [place] [address] Phone [phone] Care Team Providers Care Tour Coordinator Name Role Phone Guera Kumar MD Primary Care Prov ider Reason for Visit * Reason Onset Date Comments Medication Refill 07/22/2023 Encounter Details Date Type Department Care Team (Late st Contact Info) Description 07/22/2023 Refill Family Medicine [address] [phone] Guera Kumar MD [address] [place] [id number] Unstable angina (HCC); BPH with obstruction/lower urinary tract symptoms Allergies Active Allergy Reactions Criticality Noted Date Comments Adhesive Tape Other (Please comment) Low 03/09/2009 Affected area blisters. Latex 11/23/2014 Patient denies this allergy documented as of this encounter (statuses as of 07/22/2023) Medications Medication Sig Dispensed Refills Start Date End Date Status Acetaminophen 500 MG Oral Tablet Take 2 Tablets by mouth 3 times a day as needed for Pain, Moderate or Pain, Severe. 0 Active Flutter DeviceIndications: Bronchiectasis without complication (HCC) Use for 10 min twice daily. pretreat with albuteorl. 1 Each 0 04/25/2022 Active Saline Nasal [place] 0.65 % Nasal Solution ([place]) Administer 1 [place] into nostril in the morning and 1 [place] at noon and 1 [place] in the evening and 1 [place] before bedtime. 30 mL 0 11/15/2022 Active [...] Capsule by mouth at bedtime. 0 Active Fluticasone-Salmet gray 250-50 MCG/ACT Inhalation Aerosol Powder Breath Activated (Advair Diskus) INHALE ONE PUFF BY MOUTH TWICE A DAY ONCE IN THE MORNING AND BEFORE BEDTIME 180 Each 2 12/12/2022 4 Active Polyethylene Glycol 3350 17 GM Oral [...] NEEDED FOR SHORTNESS OF BREATH 360 mL 11/22/2022 4 Active Fluticasone Propionate 50 MCG/ACT Nasal Suspension (Flonase)Indicatio ns:Deviated nasal septum,Chronic maxillary sinusitis,Acquired deformity of nose INSTILL 2 SPRAYS INTO EACH NOSTRIL DAILY NEEDED 16 mL 11/22/2022 4 Active Finasteride 5 MG Oral Tablet (Proscar)Indicatio ns:BPH without obstruction/lower urinary tract symptoms,Urge incontinence TAKE ONE TABLET BY MOUTH EVERY DAY FOR PROSTATE 90 Tablet 11/22/2022 4 Active Clopidogrel Bisulfate 75 MG Oral Tablet (pLAVix)Indication s:Atherosclerosis of [place] coronary artery of [place] heart with angina pectoris (HCC) TAKE ONE TABLET BY MOUTH EVERY DAY IN THE MORNING 90 Tablet 3 11/22/2022 Active Atorvastatin Calcium 80 MG Oral Tablet (Lipitor)Indicatio ns:Dyslipidemia, goal LDL below 100 TAKE ONE TABLET BY MOUTH EVERY DAY IN THE MORNING 90 Tablet 11/22/2022 4 Active Albuterol Sulfate 108 (90 [...] TABLET BY MOUTH EVERY DAY 90 Tablet 11/22/2022 4 Active DULoxetine HCl 30 MG Oral Capsule Delayed Release Particles (Cymbalta) Take 1 capsule by mouth every evening 90 Capsule 2 11/22/2022 Active DULoxetine HCl 60 MG Oral Capsule Delayed Release Particles (Cymbalta)Indicati ons:Current moderate episode of major depressive disorder without prior episode (HCC),Work related injury TAKE ONE CAPSULE BY MOUTH EVERY EVENING 90 Capsule 0 05/24/2023 Active Losartan Potassium 50 MG Oral Tablet (Cozaar) TAKE ONE TABLET BY MOUTH EVERY DAY IN THE MORNING 30 Tablet 5 05/24/2023 4 Active Gabapentin 300 MG Oral Capsule (Neurontin) TAKE ONE CAPSULE BY MOUTH THREE TIMES A DAY IN THE MORNING, AT NOON AND BEFORE BEDTIME 90 Capsule 5 05/27/2023 Active Metoprolol Succinate ER 25 MG Oral Tablet Extended Release 24 Hour (toPROL XL) TAKE ONE AND ONE-HALF TABLETS BY MOUTH EVERY MORNING 135 Tablet 0 05/27/2023 4 Active Amitriptyline HCl 25 MG Oral Tablet [...] the morning. 90 Capsule 3 07/22/2023 Active Nitroglycerin 0.4 MG Sublingual Tablet Sublingual (Nitrostat)Indicat ions:Unstable angina (HCC) TAKE 1 TABLET BY MOUTH EVERY 5 MINUTES NEEDED WITH CHEST PAIN UP TO 3 DOSES IN 15 MINUTES 25 Tablet 11 11/22/2022 4 Discontinue d(Refill) Tamsulosin HCl 0.4 MG Oral Capsule (Flomax)Indication s:BPH with obstruction/lower urinary tract symptoms Take 2 Capsules by mouth in the morning. 90 Capsule 3 01/07/2023 4 Discontinue d(Refill) Amitriptyline HCl 25 MG Oral Tablet (Elavil) Take 2 tablets by mouth at bedtime 400 Tablet 0 06/13/2022 4 Discontinue d(Refill) documented as of this encounter (statuses as of 07/22/2023) Active Problems Problem Noted Date Diagnosed Date [...] abdomen [facility] [place] Scheduling to fax orders. COPD, group B, [...] meds at length -albuterol rx sent to [facility] -Use Advair BID -has rescue kit [...] oxygen. Cervical spinal stenosis 01/27/2020 Atherosclerosis of [place] co ronary artery of [place] heart with stable angina pectoris 10/02/2019 Overview: [...] replacement 1984 and 2006. Pain managed through [facility] pain clinic. 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 12/22 Overview: CO-M2 [place] Last Assessment & Plan: Follows with GI [...] as of this encounter (statuses as of 07/22/2023) Resolved Problems Problem Noted Date Diagnosed Date [...] Medication Regimen o Class D - Inhaled Liyqdepyxshkjc-YSYP-JKRN Combination Inhaler (Trellegy) Exacerbation Mgt: o Rescue [...] 01/22/2019 07/29/2020 Coronary artery disease invo lving [place] coronary artery of [place] heart without angina pectoris 09/19/2017 10/31/2021 Overview: W/ angina on PL [place] (actinic keratosis) 01/23/201710/24 Bradycardia 06/14/2016 09/19/2017 Essential hypertension with goal blood pressure less than 140/90 10/31/2015 07/04/2022 Last Assessment & Plan: bp stable-not on meds Monitor Chronic cholecystitis 03/10/20092010 ACTIVE CASE MANAGEMENT 03/07/200904/10 Overview: Chela Morris, RN [phone] Other specified hypothyroidism 03/01/2008 08/16/2016 Overview: TSH [...] MEDICATION USE AGREEMENT 09/2010 Overview: Dr Parra [facility] Beta-hakan intolerance documented as of this encounter (statuses as of 07/22/2023) Immunizations Name Administration Dates Next Due COVID-19 mRNA, LNP-s, No Pre serve, 2-Dose Series ([place]) 10/13/2020,09/22/2020 Pneumococcal Conjugate Vacc, 13 Valent (Prevnar) [...] Telephone Encounter - Guera Kumar MD - 07/22/2023 4:04 PM EST Signed Prescriptions: Disp Refills Amitriptyline HCl 25 MG Oral Tablet (Elavi*180 Ta*1 Sig: Take 2 Tablets by mouth at bedtime. Authorizing Provider: GUERA KUMAR Nitroglycerin 0.4 MG Sublingual Tablet Sub*25 Tab*11 Sig: TAKE 1 TABLET BY MOUTH EVERY 5 MINUTES NEEDED WITH CHEST PAIN UP TO 3 DOSES IN 15 MINUTES Authorizing Provider: MICHELLE KUMAR Tamsulosin HCl 0.4 MG Oral Capsule (Flomax)90 Cap*3 Sig: Take 2 Capsules by mouth in the morning. Authorizing Provider: GUERA KUMAR * Telephone Encounter - Lynnette Downing LPN - 07/22/2023 3:27 PM EST Pt and DIL Suzie calling to go over this meds and get refills, he needs amitriptyline, nitro tabs and Tamsulosin refills to Mail orders. Pending. She also inquiring about his Cymbalta, ferrous sulfate and Gabapentin orders, she need clarification on doses. He has both 30mg and 60 mg cymbalta at home, is he to be on both or one or other? 2. Ferrous sulfate 325 he has bottle that indicates 1.5 tab daily. Our directions indicted one tab twice daily. Please clarify 3. gabapentin 300 mg and 600 mg both TID, is he to be on that much. He only has the 300 mg at home.He will need refill of 600mg if he is to be on this. Please clarify. Both the pt and his at one time had [facility] coming to the home to help them with meds/checking in on the them. DIL inquiring if this could be ordered again. Pt is having trouble keeping medications straight. Placed message in 's chart too. Please advise. documented in this encounter Plan of Treatment Upcoming Encounters Date Type Department Care Team (Late st Contact Info) Description 2024 1:40 PM EDT Office Visit Family [address] [phone] Guera Kumar MD [address] [place] [address] [place] [phone] 06/22/2024 1:40 PM EST Office Visit Dermatology [address] [place] [address] Nia Hong PA-C [address] [place] [address] [place] [phone] Health Maintenance Due Date Last Done Comments [...] this encounter Medical Devices Implanted Type Area Mothers Helper Device Identifier Shelf Expiration Date Model / Serial / Lot 5.0 Compression Plate Implanted:Qty: 1 on 10/04/2022 by Gris Middleton, Donell Oliver MD [place] [facility] [place] [id number] / / documented as of this encounter Visit Diagnoses Diagnosis Unstable angina (HCC) Intermediate coronary syndrome BPH with obstruction/lower urinary tract symptoms Hypertrophy of prostate with urinary obstruction and other lower urinary tract symptoms (LUTS) documented in this encounter Advance Directives Documents on File Type Date Recorded Patient Cable Installer Expl anation Advance Directives and Living Will 10/03/2022 ADVANCE DIRECTIVE / LIVING WILL Power of Experimental Mechanic [employer] Motors 10/03/2022 POWER OF A TTORNEY Latest Code [...] the patient have Health Care Power of Experimental Mechanic [employer]? No Care Teams Tour Coordinator Relationship Specialty Start Date End Date Guera Kumar MD [address] [place] [address] [place] [phone] PCP - General Family Medicine 06/19/23 documented as of this encounter
--- OUTSIDE RECORDS SUMMARY | 2023-12-18 23:28 | External Medical Summary | Summary of Care ---
Author Name Unknown Organization [facility] Address [address] [place] [address] Phone [phone] Care Team Providers Care Medical Center Manager Name Role Phone Guera Jay MD Primary Care Prov ider Reason for Visit * Reason Onset Date Comments Advice 08/29/2023 Encounter Details Date Type Department Care Team (Late st Contact Info) Description 08/29/2023 Telephone Family [address] [phone] Guera Jay MD [address] [place] [address] [place] [address] Advice Allergies Active Allergy Reactions Criticality [...] 1 Each 0 04/25/2022 Active Saline Nasal Ros[place] 0.65 % Nasal Solution ([place]) Administer 1 Rosal[place] into nostril in the morning and 1 Rosalie at noon and 1 Rosalie in the evening and 1 Rosalie before bedtime. 30 mL 0 11/15/2022 Active [...] 75 MG Oral Tablet (pLAVix)Indications :Atherosclerosis of [place] coronary artery of [place] heart with angina pectoris (HCC) TAKE ONE [...] and pelvis placed. Pt to use OSH [facility] in [place]. Scheduling to fax orders. COPD, group B, [...] meds at length -albuterol rx sent to [facility] -Use Advair BID -has rescue kit -CXR, exercise pulse ox -f/u t/c and home visit next week -needs pulm f/u Mediastinal adenopathy 04/25/2022 Chronic back pain greater than 3 months duration 04/17/2022 Hx of actinic keratosis 10/24/2020 VALDOVINOS (dyspnea on exertion) 08/17/2020 Last Assessment & Plan: Per walk test in June 2022, patient did not require oxygen. Cervical spinal stenosis 01/27/2020 Atherosclerosis of [place] co ronary artery of false [place] heart with stable angina pectoris 10/02/2019 Overview: [...] replacement 1984 and 2006. Pain managed through [facility] pain clinic. 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 12/22 Overview: CO-M2 [place] Last Assessment & Plan: Follows with GI [...] Medication Regimen o Class D - Inhaled Owomnnqyejkspz-IHBH-OPBU Combination Inhaler (Trellegy) Exacerbation Mgt: o Rescue [...] 01/22/2019 07/29/2020 Coronary artery disease invo lving [place] coronary artery of [place] heart without angina pectoris 09/19/2017 10/31/2021 Overview: W/ angina on PL [place] (actinic keratosis) 01/23/201710/24 Bradycardia 06/14/2016 09/19/2017 Essential hypertension with goal blood pressure less than 140/90 10/31/2015 07/04/2022 Last Assessment & Plan: bp stable-not on meds Monitor Chronic cholecystitis 03/10/20092010 ACTIVE CASE MANAGEMENT 03/07/200904/10 Overview: Chela Morris, RN [phone] Other specified hypothyroidism 03/01/2008 08/16/2016 Overview: TSH [...] MEDICATION USE AGREEMENT 09/2010 Overview: Dr Parra [facility] Beta-hakan intolerance documented as of this encounter (statuses as of 08/29/2023) Immunizations Name Administration Dates Next Due COVID-19 mRNA, LNP-s, No Pre serve, 2-Dose Series (groSolar) 10/13/2020,09/22/2020 Pneumococcal Conjugate Vacc, 13 Valent (Prevnar) [...] stated that they received a form from [employer] in order to get assistance on their [...] 1:40 PM EDT Office Visit Family Medicine [address] [place] [phone] Guera Jay MD [address] [place] [address] [place] [address] 06/22/2024 1:40 PM EST Office Visit Dermatology [address] [place] [address] Nia Hong PA-C [address] [place] [address] [place] [phone] Health Maintenance Due Date Last Done Comments [...] this encounter Medical Devices Implanted Type Area Affiliate Marketing Specialist Device Identifier Shelf Expiration Date Model / Serial / Lot Femoral Nail Retrograde Implanted:Qty: 1 on 10/04/2022 by Gris Middleton, Donell Oliver [place] [facility] [place] Knee [place]GEL 02/18/2031 2339-1128S / / [id number] Screw Nlk A3 Ti 4.5x36mm - [id number] Implanted:Qty: 1 on 10/04/2022 by Donell Landry Jr., MD [place] [facility] [place] : TRAUMA [id number] / / 5.0 Compression Plate Implanted:Qty: 1 on 10/04/2022 by Donell Landry Jr., MD [place] [facility] [place] [id number] / / Screw T2 Alpha Adv Lck 5x85 - [id number] Implanted:Qty: 1 on 10/04/2022 by Donell Landry Jr., [place] [facility] [place] Knee ANGEL : TRAUMA 07/24/2031 2361-5085S / / [id number] Screw T2 Alpha Adv Lck 5x65 - [id number] Implanted:Qty: 1 on 10/04/2022 by Donell Landry Jr., [place] [facility] [place] Knee ANGEL : TRAUMA 07/24/2032 2361-5065S / / [id number] Screw T2 Alpha Adv Lck 5x85 - [id number] Implanted:Qty: 1 on 10/04/2022 by Donell Landry Jr., [place] [facility] [place] Knee ANGEL : TRAUMA 02/22/2032 2361-5085S / / [id number] Screw T2 Alpha Lock 5x35mm - [id number] Implanted:Qty: 1 on 10/04/2022 by Donell Landry Jr., [place] [facility] [place] Knee ANGEL : TRAUMA 07/24/2032 2360-5035S / / [id number] Screw Gina Lk A3 Ti 5x12mm - [id number] Implanted:Qty: 1 on 10/04/2022 by Donell Landry Jr., MD [place] [facility] [place] : TRAUMA [id number] / / Screw Gina Lk A3 Ti 5x16mm - [id number] Implanted:Qty: 1 on 10/04/2022 by Donell Landry Jr., MD [place] [facility] [place] : TRAUMA [id number] / / Washer For 2.4mm/2.7mm/3.5m m - [id number] Implanted:Qty: 2 on 10/04/2022 by Donell Landry Jr., MD [place] [facility] [place] : TRAUMA [id number] / / Screw Nlk V2 T10 Ft 3.5x28mm - [id number] Implanted:Qty: 2 on 10/04/2022 by Donell Landry Jr., MD at [facility] ANGEL : TRAUMA [id number] / / documented as of this encounter Advance Directives Documents on File Type Date Recorded Patient Pants Maker Expl anation Advance Directives and Living Will 10/03/2022 ADVANCE DIRECTIVE / LIVING WILL Power of Chimney Supervisor Brick 10/03/2022 POWER OF A TTORNEY Latest Code [...] the patient have Health Care Power of Chimney Supervisor Brick? No Care Teams Medical Center Manager Relationship Specialty Start Date End Date Guera Jay MD [address] [place] [address] [place] [phone] PCP - General Family Medicine 06/19/23 documented as of this encounter
--- OUTSIDE RECORDS SUMMARY | 2023-12-18 23:28 | External Medical Summary | Summary of Care ---
Author Name Unknown Organization [facility] Address [address] [place] [address] Phone [phone] Care Team Providers Care Deputy Clerk Name Role Phone Guera Kumar MD Primary Care Prov ider Reason for Visit * Reason Comments Medication Refill Encounter Details Date Type Department Care Team (Late st Contact Info) Description 10/01/2023 [facility]ill [facility] [phone] Guera Kumar MD [address] [place] [address] [place] [phone] Allergies Active Allergy Reactions Criticality Noted Date [...] 1 Each 0 04/25/2022 Active Saline Nasal [place] 0.65 % Nasal Solution ([place]) Administer 1 [place] into nostril in the morning and 1 [place] at noon and 1 [place] in the evening and 1 [place] before bedtime. 30 mL 0 11/15/2022 Active [...] 75 MG Oral Tablet (pLAVix)Indication s:Atherosclerosis of [place] coronary artery of [place] heart with angina pectoris (HCC) TAKE ONE [...] MOUTH EVERY MORNING 135 Tablet 0 10/01/2023 5 Active Metoprolol Succinate ER 25 MG [...] and pelvis placed. Pt to use OSH [facility] in [place]. Scheduling to fax orders. COPD, group B, [...] have every day") Medication Regimen o Other: jordynrorik Self-Management plan o High frequency nebulizer treatments every 4-6 hours around the clock o Other/Additional Comments: jordynrorik Exacerbation plan o Solumedrol 60mg IM/IV o Chest Xray Moderate persistent asthma without complication 04/25/2022 Bronchiectasis without complication 04/25/2022 Alveolar emphysema of lung 04/25/2022 Last Assessment & Plan: Wheezing noted. O2 marginal on RA Very confused about meds -reviewed meds at length -albuterol rx sent to [facility] -Use Advair BID -has rescue kit [...] oxygen. Cervical spinal stenosis 01/27/2020 Atherosclerosis of [place] co ronary artery of [place] heart with stable angina pectoris 10/02/2019 Overview: [...] esophagus determined by endoscopy 12/22 Overview: CO-M2 [place] Last Assessment & Plan: Follows with GI [...] Medication Regimen o Class D - Inhaled Xehdvzqhcvoiav-KUYW-ZECS Combination Inhaler (Trellegy) Exacerbation Mgt: o Rescue [...] 01/22/2019 07/29/2020 Coronary artery disease invo lving [place] coronary artery of [place] heart without angina pectoris 09/19/2017 10/31/2021 Overview: [...] Carotid stenosis, non-symptomatic 12/16/2002 07/27/2019 Mixed dyslipidemia 12/03/200206/13/ 9 Overview: Per Lipid Taxonomy. CAD (coronary artery disease) 09/30/2017 PURE HYPERCHOLESTEROLEM 11/2007 BENIGN NEOPLASM LG BOWEL Hemorrhoids, external without complications 02/21/2017 EXT ASTHMA W-O STAT ASTH 05/2006 Inflamed seborrheic keratosis 02/21/2017 Amputation of finger of left hand 01/15/2019 MEDICATION USE AGREEMENT 09/2010 Overview: Dr Parra [facility] Beta-hakan intolerance documented as of this encounter (statuses as of 10/01/2023) Immunizations Name Administration Dates Next Due COVID-19 mRNA, LNP-s, No Pre serve, 2-Dose Series ([employer]) 10/13/2020,09/22/2020 Pneumococcal Conjugate Vacc, 13 Valent (Prevnar) [...] Telephone Encounter - Guera Kumar MD - 10/01/2023 2:24 PM EDT Signed Prescriptions: Disp Refills Metoprolol Succinate ER 25 MG Oral Tablet *135 Ta*0 Sig: TAKE ONE AND ONE-HALF TABLETS BY MOUTH EVERY MORNINGAuthorizing Provider: GUERA KUMAR------- documented in this encounter Plan of Treatment Upcoming Encounters Date Type Department Care Team (Late st Contact Info) Description 2024 1:40 PM EDT Office Visit Family Medicine [address] [place] [phone] Guera Kumar MD [address] [place] [address] [place] [address] 06/22/2024 1:40 PM EST Office Visit Dermatology [address] [place] [address] Nia Hong PA-C [address] [place] [address] [place] [phone] Health Maintenance Due Date Last Done Comments [...] this encounter Medical Devices Implanted Type Area Sugar Cane Planting Equipment Operator Device Identifier Shelf Expiration Date Model / Serial / Lot Femoral Nail Retrograde Implanted:Qty: 1 on 10/04/2022 by Donell Landry Jr., [place] [facility] [place] Knee ANGEL 02/18/2031 2339-1128S / / [id number] Screw Nlk A3 Ti 4.5x36mm - [id number] Implanted:Qty: 1 on 10/04/2022 by Donell Landry Jr., MD [place] [facility] [place] : TRAUMA [id number] / / 5.0 Compression Plate Implanted:Qty: 1 on 10/04/2022 by Donell Landry Jr., MD at [place] [facility] [place]GEL [id number] / / Screw T2 Alpha Adv Lck 5x85 - [id number] Implanted:Qty: 1 on 10/04/2022 by Donell Landry Jr., MD at [place] [facility] [place]: Knee ANGEL : TRAUMA 07/24/2031 2361-5085S / / [id number] Screw T2 Alpha Adv Lck 5x65 - [id number] Implanted:Qty: 1 on 10/04/2022 by Donell Landry Jr., MD at [place] [facility] Left: Knee ANGEL : TRAUMA 07/24/2032 2361-5065S / / [id number] Screw T2 Alpha Adv Lck 5x85 - [id number] Implanted:Qty: 1 on 10/04/2022 by Donell Landry Jr., MD at [place] [facility] [place]: Knee ANGEL : TRAUMA 02/22/2032 2361-5085S / / [id number] Screw T2 Alpha Lock 5x35mm - [id number] Implanted:Qty: 1 on 10/04/2022 by Donell Landry Jr., MD at [place] [facility] [place]: Knee ANGEL : TRAUMA 07/24/2032 2360-5035S / / [id number] Screw Gina Lk A3 Ti 5x12mm - [id number] Implanted:Qty: 1 on 10/04/2022 by Donell Landry Jr., MD at [place] [facility] [place]EL : TRAUMA [id number] / / Screw Gina Lk A3 Ti 5x16mm - [id number] Implanted:Qty: 1 on 10/04/2022 by Donell Landry Jr., MD at [place] [facility] [place]GEL : TRAUMA [id number] / / Washer For 2.4mm/2.7mm/3.5m m - [id number] Implanted:Qty: 2 on 10/04/2022 by Donell Landry Jr., MD at [place] [facility] [place]EL : TRAUMA [id number] / / Screw Nlk V2 T10 Ft 3.5x28mm - [id number] Implanted:Qty: 2 on 10/04/2022 by Gris Middleton, Donell Oliver MD at [facility] ANGEL : TRAUMA [id number] / / documented as of this encounter Advance Directives Documents on File Type Date Recorded Patient Stacking Machine Operator Expl anation Advance Directives and Living Will 10/03/2022 ADVANCE DIRECTIVE / LIVING WILL Power of Lumber Mover 10/03/2022 POWER OF A TTORNEY Latest Code [...] the patient have Health Care Power of Lumber Mover? No Care Teams Deputy Clerk Relationship Specialty Start Date End Date Guera Kumar MD [address] [place] [address] [place] [address] PCP - General Family Medicine 06/19/23 documented as of this encounter
--- OUTSIDE RECORDS SUMMARY | 2023-12-18 23:28 | External Medical Summary | Summary of Care ---
Author Name Unknown Organization [facility] Address [address] [place] [address] Phone [phone] Care Team Providers Care Electrical Design Technician Name Role Phone Guera Kumar MD Primary Care Prov ider Reason for Visit * Reason Comments Medication Refill Encounter Details Date Type Department Care Team (Late st Contact Info) Description 08/16/2023 Refill [facility] [address] [id number] Guera Kumar MD [address] [place] [address] [place] [phone] Current moderate episode of major depressive disorder without prior episode (HCC); Work related injury Allergies Active Allergy Reactions Criticality Noted Date Comments Adhesive Tape Other (Please comment) Low 03/09/2009 Affected area blisters. Latex 11/23/2014 Patient denies this allergy documented as of this encounter (statuses as of 08/16/2023) Medications Medication Sig Dispensed Refills Start Date End Date Status Acetaminophen 500 MG Oral Tablet Take 2 Tablets by mouth 3 times a day as needed for Pain, Moderate or Pain, Severe. 0 Active Flutter DeviceIndications: Bronchiectasis without complication (HCC) Use for 10 min twice daily. pretreat with albuteorl. 1 Each 0 04/25/2022 Active Saline Nasal [facility] Francis 0.65 % Nasal Solution ([place]) Administer 1 [facility] into nostril in the morning and 1 [facility] at noon and 1 [facility] in the evening and 1 [facility] before bedtime. 30 mL 0 11/15/2022 Active [...] EVERY 12 HOURS 30 Patch 0 11/22/2022 Active Ferrous Sulfate 325 (65 Fe) MG [...] 75 MG Oral Tablet (pLAVix)Indication s:Atherosclerosis of [place] coronary artery of [place] heart with angina pectoris (HCC) TAKE ONE [...] EVERY EVENING 90 Capsule 3 08/16/2023 Active DULoxetine HCl 60 MG Oral Capsule Delayed Release Particles (Cymbalta)Indicati ons:Current moderate episode of major depressive disorder without prior episode (HCC),Work related injury TAKE ONE CAPSULE BY MOUTH EVERY EVENING 90 Capsule 0 05/24/2023 4 Discontinue d(Refill) documented as of this encounter (statuses as of 08/16/2023) Active Problems Problem Noted Date Diagnosed Date [...] and pelvis placed. Pt to use OSH [facility] in [place]. Scheduling to fax orders. COPD, group B, [...] meds at length -albuterol rx sent to [place] [facility] -Use Advair BID -has rescue kit -CXR, exercise pulse ox -f/u t/c and home visit next week -needs pulm f/u Mediastinal adenopathy 04/25/2022 Chronic back pain greater than 3 months duration 04/17/2022 Hx of actinic keratosis 10/24/2020 VALDOVINOS (dyspnea on exertion) 08/17/2020 Last Assessment & Plan: Per walk test in June 2022, patient did not require oxygen. Cervical spinal stenosis 01/27/2020 Atherosclerosis of [place] co ronary artery of [place] heart with stable angina pectoris 10/02/2019 Overview: [...] and 2006. Pain managed through [facility] pain clinic. 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 12/22 Overview: CO-M2 Reeders Last Assessment & Plan: Follows with GI [...] as of this encounter (statuses as of 08/16/2023) Resolved Problems Problem Noted Date Diagnosed Date [...] Medication Regimen o Class D - Inhaled Orbaygcqbeyojn-EZHC-AWDB Combination Inhaler (Trellegy) Exacerbation Mgt: o Rescue [...] 01/22/2019 07/29/2020 Coronary artery disease invo lving [place] coronary artery of [place] heart without angina pectoris 09/19/2017 10/31/2021 Overview: W/ angina on PL [place] (actinic keratosis) 01/23/201710/24 Bradycardia 06/14/2016 09/19/2017 Essential hypertension with goal blood pressure less than 140/90 10/31/2015 07/04/2022 Last Assessment & Plan: bp stable-not on meds Monitor Chronic cholecystitis 03/10/20092010 ACTIVE CASE MANAGEMENT 03/07/200904/10 Overview: Chela Morris, RN [phone] Other specified hypothyroidism 03/01/2008 08/16/2016 Overview: TSH 6.14 Abdominal pain, right upper quadrant 11/11/2006 02/13/2011 SKIN HYPERTRO-ATROPH NOS 11/14/2005 Asthma in COPD 07/05/2005 03/09/2019 Esophageal reflux 07/05/2005 09/19/2017 METATARSALGIA 06/03/2003 02/21/2017 Carotid stenosis, non-symptomatic 12/16/2002 07/27/2019 Mixed dyslipidemia 12/03/200206/13/200 9 Overview: Per Lipid Taxonomy. CAD (coronary artery disease) 09/30/2017 PURE HYPERCHOLESTEROLEM 11/2007 BENIGN NEOPLASM LG BOWEL Hemorrhoids, external without complications 02/21/2017 EXT ASTHMA W-O STAT ASTH 05/2006 Inflamed seborrheic keratosis 02/21/2017 Amputation of finger of left hand 01/15/2019 MEDICATION USE AGREEMENT 09/2010 Overview: Dr Parra [facility] Beta-hakan intolerance documented as of this encounter (statuses as of 08/16/2023) Immunizations Name Administration Dates Next Due COVID-19 [...] Telephone Encounter - Guera Kumar MD - 08/16/2023 4:48 PM EST Signed Prescriptions: Disp Refills DULoxetine HCl 60 MG Oral Capsule Delayed *90 Cap*3 Sig: TAKE ONE CAPSULE BY MOUTH EVERY EVENING Authorizing Provider: GUERA KUMAR * Telephone Encounter - Mere Ratliff LPN - 08/16/2023 4:35 PM ESTPending Prescriptions: Disp Refills DULoxetine HCl 60 MG Oral Capsule Delayed *90 Cap*0 Sig: TAKE ONE CAPSULE BY MOUTH EVERY EVENING * Telephone Encounter - Mere Ratliff LPN - 08/16/2023 3:35 PM EST Did you pend patient's preferred pharmacy and medication before forwarding?yes Pharmacy: [facility] Pending Prescriptions: Disp Refills DULoxetine HCl 60 MG Oral Capsule Delayed*90 Cap*0 Sig: TAKE ONE CAPSULE BY MOUTH EVERY EVENING Last Visit: Visit date not found (in office), 07/17/2022 (telemedicine) Next Visit: Visit date not found If no future appointments scheduled, and last appointment is greater than a year ago, please schedule patient for a follow-up appointment Last date the medication was ordered: 05/25/23 Is this request for a controlled substance?No [...] 12/03/2016 11:27 AM * Telephone Encounter - Abdiel Acharya [facility] - 08/16/2023 3:22 PM EST Pending Prescriptions: Disp Refills DULoxetine HCl 60 MG Oral Capsule Delayed *90 Cap*0 Sig: TAKE ONE CAPSULE BY MOUTH EVERY EVENING documented in this encounter Plan of Treatment Upcoming Encounters Date Type Department Care Team (Late st Contact Info) Description 2024 1:40 PM EDT Office Visit Family Medicine [address] [place] [phone] Guera Kumar MD [address] [place] [address] [place] [phone] 06/22/2024 1:40 PM EST Office Visit Dermatology [address] [place] [phone] Nia Hong PA-C [address] [place] [address] [place] [phone] Health Maintenance Due Date Last Done Comments [...] this encounter Medical Devices Implanted Type Area Check Grader Device Identifier Shelf Expiration Date Model / Serial / Lot Femoral Nail Retrograde Implanted:Qty: 1 on 10/04/2022 by Gris Middleton, Donell Oliver MD at OR [facility] Left: Knee ANGEL 02/18/2031 [id number] / / [id number] Screw Nlk A3 Ti 4.5x36mm - [id number] Implanted:Qty: 1 on 10/04/2022 by Donell Landry Jr., MD at OR [facility] ANGEL : TRAUMA [id number] / / 5.0 Compression Plate Implanted:Qty: 1 on 10/04/2022 by Donell Landry Jr., MD at OR [facility] ANGEL [id number] / / Screw T2 Alpha Adv Lck 5x85 - [id number] Implanted:Qty: 1 on 10/04/2022 by Donell Landry Jr., MD at OR [facility] Left: Knee ANGEL : TRAUMA 07/24/2031 [id number] / / [id number] Screw T2 Alpha Adv Lck 5x65 - [id number] Implanted:Qty: 1 on 10/04/2022 by Donell Landry Jr., MD at OR [facility] Left: Knee ANGEL : TRAUMA 07/24/2032 [id number] / / [id number] Screw T2 Alpha Adv Lck 5x85 - [id number] Implanted:Qty: 1 on 10/04/2022 by Donell Landry Jr., MD at OR [facility] Left: Knee ANGEL : TRAUMA 02/22/2032 [id number] / / [id number] Screw T2 Alpha Lock 5x35mm - [id number] Implanted:Qty: 1 on 10/04/2022 by Donell Landry Jr., MD at OR [facility] Left: Knee ANGEL : TRAUMA 07/24/2032 [id number] / / [id number] Screw Gina Lk A3 Ti 5x12mm - [id number] Implanted:Qty: 1 on 10/04/2022 by Donell Landry Jr., MD at OR [facility] ANGEL : TRAUMA [id number] / / Screw Gina Lk A3 Ti 5x16mm - [id number] Implanted:Qty: 1 on 10/04/2022 by Donell Landry Jr., MD at OR [facility] ANGEL : TRAUMA [id number] / / Washer For 2.4mm/2.7mm/3.5m m - [id number] Implanted:Qty: 2 on 10/04/2022 by Donell Landry Jr., MD at OR [facility] ANGEL : TRAUMA [id number] / / Screw Nlk V2 T10 Ft 3.5x28mm - [id number] Implanted:Qty: 2 on 10/04/2022 by Donell Landry Jr., MD at OR [facility] ANGEL : TRAUMA [id number] / / documented as of this encounter Visit Diagnoses Diagnosis Current moderate episode of major depressive disorder without prior episode (HCC) Work related injury Injury, other and unspecified, unspecified site documented in this encounter Advance Directives Documents on File Type Date Recorded Patient Pulp Mixer Expl anation Advance Directives and Living Will 10/03/2022 ADVANCE DIRECTIVE / LIVING WILL Power of Mobile Phone Salesperson 10/03/2022 POWER OF A TTORNEY Latest Code [...] the patient have Health Care Power of Mobile Phone Salesperson? No Care Teams Electrical Design Technician Relationship Specialty Start Date End Date Guera Kumar MD [address] [place] [address] [place] [phone] PCP - General Family Medicine 06/19/23 documented as of this encounter
[2023-12-19 03:29] LABS: Basophils # (auto) 0.02 K/uL (0.00-0.20); Basophils % (auto) 0.2 %; Hematocrit (blood only) 35.5 % (42.0-52.0); Hemoglobin 11.9 g/dl (14.0-18.0); Immature Granulocytes # (auto) 0.05 K/uL (0.01-0.20); Immature Granulocytes % (auto) 0.4 %; Lymphocytes # (auto) 0.97 K/uL (1.20-3.40); Lymphocytes % (auto) 7.8 %; Mean Corpuscular Hemoglobin 31.6 pg (25.0-34.0); Mean Corpuscular Hgb Conc 33.5 g/dL (32.0-36.0); Mean Corpuscular Volume 94.2 fL (80.0-100.0); Mean Platelet Volume 10.9 fL (9.4-12.4); Monocytes # (auto) 0.43 K/uL (0.11-0.59); Monocytes % (auto) 3.5 %; Neutrophils # (auto) 10.95 K/uL (1.40-6.50); Neutrophils % (auto) 88.1 %; Platelet Count 176 K/uL (130-400); RDW Coefficient of Variation 13.7 % (11.5-14.5); RDW Standard Deviation 47.1 fL (36.4-46.3); Red Blood Count 3.77 M/uL (4.70-6.10); White Blood Count 12.42 K/ul (4.8-10.8)
[2023-12-19 03:46] LABS: Calcium 8.7 mg/dl (8.6-10.3); Chol HDL Ratio 2.8 (0-5); Creatinine Clr Calc Pharmacy 51.6 ml/min; Est GFR (African American) 57.8 ml/min; Est GFR (Non-African American) 49.8 ml/min; Magnesium 1.9 mg/dl (1.7-2.4)
[2023-12-19] MEDS: LEVOTHYROXINE SODIUM 75 MCG TABLET PO SCH (06:04)
[2023-12-19] MEDS: ATORVASTATIN 40 MG TAB PO SCH (08:04)
[2023-12-19] MEDS: METOPROLOL SUCC 25MG EXT REL TAB PO SCH (08:05)
[2023-12-19] MEDS: FINASTERIDE 5 MG TAB PO SCH (08:06)
[2023-12-19] MEDS: CLOPIDOGREL BISULFATE 75 MG TAB PO SCH (08:06)
[2023-12-19] MEDS: PANTOprazole 40 MG TAB PO SCH (08:06)
[2023-12-19] MEDS: TAMSULOSIN HCL 0.4 MG CAP PO SCH (08:09)
[2023-12-19] MEDS: LOSARTAN POTASSIUM 50 MG TAB PO SCH (08:09)
[2023-12-19] MEDS: UMECLIDINIUM/VILANTEROL 62.5/25MCG 7 PUFFS/INHALER INH SCH (08:10)
--- NOTE | 2023-12-19 08:39 | Hospitalist Progress Note ---
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 PMHx also includes HTN, HLD, sinus node dysfunction s/p pacemaker, CAD s/p balloon angioplasty 2017, SVT, GERD, BPH, RLS, depression and chronic back pain. He presented to the ER with increased SOB and cough for a few days. Sepsis, POA Acute hypoxic respiratory Failure Pneumonia, community acquired Tachycardic and tachypneic on presentation with noted leukocytosis. Infectious source likely pulmonary. Lactate elevated persistently, procalcitonin normal. Biofire negative. MRSA nares negative CXR: Cardiomegaly and cardiac pacemaker with evidence of congestive failure. Suspect small pleural effusions. CT chest: compatible with multifocal pneumonia and reactive lymph nodes. Notes postsurgical changes of left upper lobe wedge resection. Sputum Cx pending Blood cultures x 2 sets with NGTD UA unremarkable IV Fluids Received cefepime and vancomycin in the ED Continue with Rocephin and doxycycline IV Solumedrol Continue home inhaler Xopenex nebulizer Guaifenesin, incentive spirometer, flutter valve oxygen supplementation as needed, wean as tolerated Pulmonology consulted, appreciate recs PSVT (paroxysmal supraventricular tachycardia) Sinus node dysfunction Pacemaker in situ History PSVT EKG with t wave inversions Echo with moderate LVH, EF 60-65%, LV motion normal, Grade 1 diastolic dysfunction, aortic valve sclerosis w/o stenosis pacemaker interrogation Cardiology consulted, appreciate recs - metoprolol succinate increased to 50mg BID Continue to monitor on telemetry Elevated troponin Demand ischemia CAD (coronary artery disease) Troponin flat at 39.2-->47.9-->48.4-->39.1 Repeat EKG with t wave inversions anterior leads without acute ST elevation Likely demand ischemia from tachycardia Denies CP or palpitations S/P balloon angioplasty in 2017 Echo with moderate LVH, EF 60-65%, LV motion normal, Grade 1 diastolic dysfunction, aortic valve sclerosis w/o stenosis Cardiology consulted, appreciate recs -Continue Plavix, metoprolol succinate, atorvastatin -Doubt ACS at this time Continue telemetry monitoring HTN (hypertension) BP Stable Continue losartan, metoprolol succinate with holding parameters JOHN (acute kidney injury) BUN: 15, Cr: 1.38, GFR: 49. Baseline Cr: 1.1 with GFR: 66-70 Gentle IVF Avoid nephrotoxic meds Monitor renal function Hyperglycemia Prediabetes Glucose levels elevated Pt also on steroids AM [id number] pending Anemia, normocytic, chronic Hgb 10-13 range AM anemia panel (iron, b12 and folate) supplement as needed BPH (benign prostatic hyperplasia) Continue tamsulosin, finasteride Hypothyroidism TSH normal Continue levothyroxine Diet: HH DVT Prophylaxis: Heparin SQ DNR/DNI as per admitting discussion with pt Dispo: PT/OT ordered for further recs Admission and Anticipated Discharge Date Admission Date: December 18, 2023 Subjective Pt was seen in the AM. Notes that he is feeling better, asking about going home. Not on oxygen at the time of exam. States that the cough and SOB had lessened. Review of Systems Review of Systems: All systems reviewed & are unremarkable except as noted in Subjective Physical Exam Physical Exam: General: Alert, oriented. No acute distress Skin: No noted rashes or bruises Psych: Appropriate mood and affect HEENT: NC/AT CV: RRR Resp: Breath sounds decreased bilaterally at the time of exam, no increased effort of breathing Abdomen: Soft, nontender, nondistended Results & Data Results & Data Vital Signs (Past 12 Hours) Vital Signs Temp Pulse Pulse Pulse Resp BP BP 12/19/23 07:56 36.4 C L 65 20 166/75 H 12/19/23 07:19 73 18 12/19/23 03:45 36.4 C L 71 18 154/75 H 12/19/23 00:11 12/18/23 23:40 36.5 C 71 18 142/74 H 12/18/23 22:15 115/54 L 12/18/23 22:15 115/54 L 12/18/23 22:15 115/54 L 12/18/23 22:15 61 18 12/18/23 22:06 62 17 12/18/23 22:00 122/50 L 12/18/23 21:54 64 17 12/18/23 21:45 122/67 12/18/23 21:45 122/67 12/18/23 21:15 88 14 12/18/23 21:15 114/83 12/18/23 21:15 114/83 12/18/23 21:06 98/64 L 12/18/23 21:06 79 21 Pulse Ox O2 Del Method O2 Flow Rate 12/19/23 07:56 95 Room Air 12/19/23 07:19 95 Nasal Cannula 2 12/19/23 03:45 93 Nasal Cannula 12/19/23 00:11 Nasal Cannula 2 12/18/23 23:40 96 Nasal Cannula 12/18/23 22:15 12/18/23 22:15 12/18/23 22:15 12/18/23 22:15 90 Nasal Cannula 2 12/18/23 22:06 90 Nasal Cannula 2 12/18/23 22:00 12/18/23 21:54 91 Nasal Cannula 2 12/18/23 21:45 12/18/23 21:45 12/18/23 21:15 94 Nasal Cannula 2 12/18/23 21:15 12/18/23 21:15 12/18/23 21:06 12/18/23 21:06 95 Diagnostic Findings Chest X-Ray 12/18/23 12:54 SINGLE VIEW CHEST CLINICAL HISTORY: Sepsis FINDINGS: An AP, portable, upright chest radiograph is compared to study dated 03/06/2023. The examination is degraded by portable technique and apical lordotic positioning. A 2-lead cardiac pacemaker partially obscures the left upper chest. The heart is enlarged. There is pulmonary vascular congestion and mild interstitial edema. Small pleural effusions are suspected with dependent atelectasis. No pneumothorax is seen. The skeletal structures are osteopenic. The bony thorax is grossly intact. Arthritic change is seen in the shoulders and spine. Intrathecal leads project over the thoracic spine. Cholecystectomy clips are noted in the right upper quadrant. IMPRESSION: 1. Cardiomegaly and cardiac pacemaker with evidence of congestive failure. 2. Suspect small pleural effusions. ACT 112: Negative or not required by law. Electronically signed by: Geoffrey Auguste M.D. 12/18/2023 1:[address] 12/18/23 14:24 CT chest diagnostic wo con CLINICAL HISTORY: SOB, wheezing, fever- r/o PNA TECHNIQUE: Multidetector row helical CT of the chest was performed. Coronal and sagittal reformations were obtained. Automated dose lowering techniques and/or adjustment according to patient size were utilized for this exam. CT DOSE: 818.24 mGy.cm Comparison: Comparison is made to CT chest 02/24/2020 an chest radiograph 12/18/2023 FINDINGS: Lungs and pleura: Atelectasis versus scarring is seen in the dependent portions of the lungs. [place] and consolidative opacities in the right greater than left upper lobe. Postsurgical changes of left upper lobe wedge resection noted. Heart and pericardium: There is cardiomegaly without evidence of pericardial effusion. Vessels: Severe atherosclerotic changes in the aorta and coronary arteries. Ascending aortic aneurysm measures 45 mm in diameter. Mediastinum and [place]: Enlarged lymph nodes measure up to 13 mm in diameter. Chest wall and lower neck: Unremarkable. Abdomen: Patient is status post cholecystectomy. Bones: Degenerative changes in the thoracic spine. Spinal stimulator is seen. IMPRESSION: Findings are compatible with multifocal pneumonia and reactive lymph nodes. ACT 112: Negative or not required by law. Electronically signed by: Eduardo Salinas M.D. 12/18/2023 3:43 PM (8) Anemia Anemia type: unspecified type Qualified Code(s): D64.9 - Anemia, unspecified
--- NOTE | 2023-12-19 09:58 | Cardiology Progress Note ---
Date of Service December 19, 2023 Assessment & Plan (1) PSVT (paroxysmal supraventricular tachycardia): (2) Multifocal pneumonia: (3) Sepsis: (4) Lactic acidosis: (5) Pacemaker: Plan Patient presents with sepsis, multifocal pneumonia noted on CT scan, lactic acidosis noted, lactate level of 3.2 mmol/L on presentation trended up to 4.23 mmol/L overnight last night, most recent measurement down to 2.2 as obtained at 722 this morning and a repeat level is being drawn while I am at the bedside at 9:45 AM.. Noted to be in SVT on initial presentation with spontaneous conversion to sinus rhythm, transient ventricular paced rhythm noted on telemetry, now in sinus rhythm with atrial pacing. Device interrogation reviewed with findings of generator longevity of 2.5 years. Most recent interrogation had been back in 2022. He has had frequent brief episodes of supraventricular tachycardia in the last year rates often in the range of 135-145 bpm. The patient's EKG is abnormal with lateral T wave inversions, however this is a chronic finding. Has known coronary heart disease, unsuccessful revascularization of high-grade mid LAD stenosis at time of cardiac catheterization in 2017 for which medical management has been pursued in the interim with chronic clopidogrel therapy. Echocardiogram performed 12/19/2023 revealed moderate concentric left ventricular perjury, no regional wall motion motives, LVEF normal at 60-65%, mild aortic valve sclerosis without stenosis, grade 1 diastolic dysfunction, pulmonary artery systolic pressure estimated be 35 mmHg which is the upper limit of normal. Mild troponin I elevation with flat trend, felt to be related to myocardial st rain rather than acute coronary syndrome. * Agree with broad-spectrum antibiotics, use of Xopenex, supplemental oxygen. * Increase metoprolol succinate to 50 mg twice daily * Will arrange outpatient follow-up with our pacemaker clinic, and have him obtain a home monitoring unit. Admission and Anticipated Discharge Date Admission Date: December 18, 2023 Subjective Patient seen in cardiology follow-up. He states that he feels "80% better ". Tmax has been 37.8 as observed on 12/18/2023 at 12:54 PM and his fever has resolved in the meantime, most recent temperature this morning 36.4. States his cough is better. Telemetry reveals sinus rhythm with atrial pacing in the 70s, no recurrence of the supraventricular tachycardia that was observed on presentation to the emergency room yesterday. Physical Exam Physical Exam: General: Ill in appearance without acute distress Eyes: conjunctiva are pink and non-injected, sclera clear Neck: normal jugular venous pulse, no hepatojugular reflux Chest: normal shape and normal respiratory effort Lungs: Coarse breath sounds noted at the bases Cardiac Exam: - regular heart sounds 1/6 systolic murmur, rubs, or gallops, no jugular venous distention Abdomen: abdomen soft, non-tender, no abnormal masses and no hepatosplenomegaly Musculoskeletal: no gait disturbance, no weakness Extremities: no edema and no cyanosis Neuro:awake, conversant, follows commands, no focal motor deficits Psych: appropriate affect and insight. Results & Data Vital Signs (Past 12 Hours) Vital Signs Temp Pulse Pulse Pulse Resp BP BP 12/19/23 07:56 36.4 C L 65 20 166/75 H 12/19/23 07:19 73 18 12/19/23 03:45 36.4 C L 71 18 154/75 H 12/19/23 00:11 12/18/23 23:40 36.5 C 71 18 142/74 H 12/18/23 22:15 115/54 L 12/18/23 22:15 115/54 L 12/18/23 22:15 115/54 L 12/18/23 22:15 61 18 12/18/23 22:06 62 17 12/18/23 22:00 122/50 L 12/18/23 21:54 64 17 Pulse Ox O2 Del Method O2 Flow Rate 12/19/23 07:56 95 Room Air 12/19/23 07:19 95 Nasal Cannula 2 12/19/23 03:45 93 Nasal Cannula 12/19/23 00:11 Nasal Cannula 2 12/18/23 23:40 96 Nasal Cannula 12/18/23 22:15 12/18/23 22:15 12/18/23 22:15 12/18/23 22:15 90 Nasal Cannula 2 12/18/23 22:06 90 Nasal Cannula 2 12/18/23 22:00 12/18/23 21:54 91 Nasal Cannula 2 Laboratory Results Cardiac Enzymes 12/18/23 12/18/23 12/18/23 Range/Units 13:10 15:07 20:49 AST 15 (13-39) U/L Troponin I High Sens 39.2 H 47.9 H 48.4 H (0-20) pg/ml 12/19/23 Range/Units 03:12 AST (13-39) U/L Troponin I High Sens 39.1 H (0-20) pg/ml Lipids 12/19/23 Range/Units 03:12 Triglycerides 86 (0-150) mg/dl Cholesterol 123 (0-200) mg/dl HDL Cholesterol 44 mg/dl Cholesterol/HDL Ratio 2.8 (0-5) CBC 12/18/23 12/19/23 Range/Units 13:10 03:12 WBC 13.10 H 12.42 H (4.8-10.8) K/ul RBC 4.26 L 3.77 L (4.70-6.10) M/uL Hgb 13.3 L 11.9 L (14.0-18.0) g/dl Hct 39.0 L 35.5 L (42.0-52.0) % Plt Count 218 176 (130-400) K/uL Neut # (Auto) 9.89 H 10.95 H (1.40-6.50) K/uL Lymph # (Auto) 1.47 0.97 L (1.20-3.40) K/uL Mckenzie # (Auto) 1.59 H 0.43 (0.11-0.59) K/uL Eos # (Auto) 0.06 0.00 (0.00-0.50) K/uL Baso # (Auto) 0.03 0.02 (0.00-0.20) K/uL Comprehensive Metabolic Panel 12/18/23 12/19/23 Range/Units 13:10 03:12 Sodium 137 139 (136-145) mmol/L Potassium 3.6 4.0 (3.5-5.1) mmol/L Chloride 105 110 H (98-107) mmol/L Carbon Dioxide 24 21 (21-32) mmol/L BUN 15 19 (6-23) mg/dl Creatinine 1.38 1.36 (0.6-1.4) mg/dl Glucose 157 H 186 H (70-99(Fasting)) mg/dl Calcium 9.0 8.7 (8.6-10.3) mg/dl Direct Bilirubin 0.1 (0-0.2) mg/dl AST 15 (13-39) U/L ALT 14 (7-52) U/L Alkaline Phosphatase 87 (34-104) U/L Total Protein 7.1 (6.0-8.3) gm/dl Albumin 4.1 (3.4-5.0) gm/dl Intake and Output 12/18/23 12/19/23 12/19/23 22:59 06:59 14:59 Intake Total 1585 / 2678.333 843.333 / 2678.333 Output Total 600 / 600 Balance 1585 / 2078.333 243.333 / 2078.333 Intake: IV 1585 / 2678.333 843.333 / 2678.333 Sodium Chloride 0.9% 1,000 ml @ 1000 / 1843.333 843.333 / 1843.333 100 mls/hr IV .Q10H COUNT INCLUDES THE [facility] Rx#: [id number] Vancomycin HCl 1,750 mg In 535 / 535 Sodium Chloride 0.9% 500 ml @ 200 mls/hr IV NOW ONE Rx#: [id number] cefTRIAXone SODIUM 2,000 mg In 50 / 50 50 ml @ 100 mls/hr IV Q24H COUNT INCLUDES THE [facility] Rx#:[id number] Output: Urine 600 / 600 Other: Weight 89.9 kg Weight Measurement Method Built in [facility]
--- NOTE | 2023-12-19 10:55 | Electrocardiogram Report ---
Test Reason : Blood Pressure : / mmHG Vent. Rate : 067 BPM Atrial Rate : 070 BPM P-R Int : 308 ms QRS Dur : 104 ms QT Int : 424 ms P-R-T Axes : -15 -14 147 degrees QTc Int : 448 ms Atrial-paced rhythm with prolonged AV conduction Left ventricular hypertrophy with repolarization abnormality Abnormal ECG When compared with ECG of 18-DEC-2023 15:43, No significant change was found Confirmed by Fco Ashby ([id number]) on 12/19/2023 10:55:15 AM Referred By: Guera Escudero Confirmed By:Fco Ashby
--- NOTE | 2023-12-19 14:08 | Pulmonary Consultation ---
Date of Consultation December 19, 2023 Assessment & Plan (1) COPD exacerbation: (2) Multifocal pneumonia: (3) BRENDA (obstructive sleep apnea): Plan 78-year-old male with a history of severe coronary artery disease, COPD, BRENDA with noncompliance of PAP therapy, VATS left upper lobe biopsy and fluoroscopy which revealed emphysematous changes and no malignancy presenting to the hospital with an acute COPD exacerbation. CT chest on admission was personally reviewed and revealed scarring in the dependent regions of the lungs and groundglass/consolidative opacities in the right greater than left upper lobe regions. Postoperative changes noted with a wedge resection of the left upper lobe region. He is having significant bronchospasm on exam today. Will start the patient on Perforomist. Continue budesonide nebs twice daily. Will also treat with albuterol and hypertonic saline nebs twice daily. Start percussive vest therapy 4 times a day to help with mucociliary clearance. Continue methylprednisolone 40 mg twice daily. Continue ceftriaxone and doxycycline. Will check urine Legionella antigen. Would recommend an ICS/LABA/LAMA inhaler upon discharge such as Breztri or Trelegy. Patient would benefit from outpatient pulmonary follow-up, PFTs and exhaled nitric oxide testing. Pulmonary will continue to follow patient along with you. Thank you for the consult. Case discussed with patient's bedside RN. Patient's friends and family () were also present during the visit. History of Present Illness Reason for Consultation: Acute hypoxic respiratory failure Attending Physician: Estela Lott MD History of Present Illness 78-year-old male with a history of coronary artery disease status post cardiac catheterization at [facility] in 2017, symptomatic bradycardia, diastolic dysfunction, left-sided lung biopsy of unknown pathology and asthma who presented to the hospital due to severe shortness of breath and SVT. He has a pacemaker and was atrially paced at 67 bpm. He has ongoing cough and shortness of breath. He was apparently hanging out in his camper at a music festival. He denies any history of tobacco abuse. 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 I was able to review his notes from pulmonary medicine in 2017. He was seen by Dr. Romero for pleuritis, COPD, chronic sinusitis and progressive dyspnea. Per that report patient apparently underwent a VATS with pleural biopsy and left upper lung biopsy. The pathology report came back positive for emphysema wi thout signs of malignancy. Apparently at that visit, the patient declined any active treatment for COPD or asthma. He also has a history of BRENDA and has refused BiPAP or CPAP treatment in the past. Today the patient reiterates to me that he is not very keen on following up with specialties and simply follows up with his family doctor as needed. Patient indicates that he uses some form of inhaler, but cannot recall the name. On his medication list there is an Anoro inhaler listed. He had a PFT back in 2013 which revealed moderate airflow obstruction with an FEV1 of 65% and a 13% increase postbronchodilator. There was also evidence of mild air trapping with an RV/TLC of 120%. Diffusion capacity was reduced to 67%. Absolute eosinophil counts on admission was 60. He has not had any significant eosinophilia on his prior labs. Patient notes that he has oxygen at home which he uses when he feels that he needs it. He has several dogs at home. No exotic pets such as birds. Denies v aping, tobacco abuse, e-cigarettes or marijuana use. Allergies Allergy/AdvReac Type Severity Reaction Status Date / Time adhesive Allergy Intermediate SKIN Verified 12/18/23 15:44 BLISTERS latex Allergy Unknown PER Verified 12/18/23 15:44 [facility] "PT DENIES" Home Medications Medication Instructions Recorded Confirmed Type acetaminophen 500 mg tablet 1,000 mg PO TID PRN Pain 03/06/23 12/18/23 History (Tylenol Extra Strength) amitriptyline 25 mg tablet 50 mg PO HS 03/06/23 12/18/23 History atorvastatin 80 mg tablet 80 mg PO DAILY 03/06/23 12/18/23 History clopidogrel 75 mg tablet 75 mg PO QAM 03/06/23 12/18/23 History duloxetine 30 mg capsule,delayed 30 mg PO QPM 03/06/23 12/18/23 History release duloxetine 60 mg capsule,delayed 60 mg PO QPM 03/06/23 12/18/23 History release finasteride 5 mg tablet 5 mg PO DAILY 03/06/23 12/18/23 History gabapentin 300 mg capsule 300 mg PO TID 03/06/23 12/18/23 History levothyroxine 75 mcg tablet 75 mcg PO DAILYBB 03/06/23 12/18/23 History losartan 50 mg tablet 50 mg PO DAILY 03/06/23 12/18/23 History metoprolol succinate 25 mg 37.5 mg PO DAILY 03/06/23 12/18/23 History tablet,extended release 24 hr nitroglycerin 0.4 mg sublingual 0.4 mg sublingual DIRECTED PRN 03/06/23 12/18/23 History tablet Chest Pain pantoprazole 40 mg tablet,delayed 40 mg PO DAILY 03/06/23 12/18/23 History release sennosides 8.6 mg tablet (senna) 17.2 mg PO BID 03/06/23 12/18/23 History sodium chloride 0.65 % nasal spray 2 spray intranasal QID 03/06/23 12/18/23 History aerosol (Saline Nasal) tamsulosin 0.4 mg capsule 0.8 mg PO QAM 03/06/23 12/18/23 History umeclidinium 62.5 mcg-vilanterol 1 ea inhalation QAM 03/06/23 12/18/23 History 25 mcg/actuation powdr for inhalation (Anoro Ellipta) Patient History Medical History (Updated 12/19/23 @ 14:06 by Nick Packer MD) Spinal cord stimulator status Surgical History Status post insertion of spinal cord stimulator Family History Mother Heart disease Social History Smoking Status: Never smoker Tobacco Type: Cigarettes Do You Dip or Chew Tobacco: No; Hx Alcohol Use: No Hx Substance Use: No Preferred Language: Egyptian Communication Ability: Effective Personal Caregiver Required: No Beliefs That Will Affect Care: None marital status: Current Living Situation: Spouse Current Living Situation Comment: home with current occupational status: disabled Feels Safe at Home: Yes Safety Concerns: Feels Safe At This Time Assistive Devices: Cane, Oxygen - Continuous, Scooter/Electric Scooter, Stair Lift, Walker and Wheelchair Review of Systems Review of Systems: All systems reviewed & are unremarkable except as noted in HPI & below Physical Exam Physical Exam: Constitutional: Patient appears to be of their stated age. Patient is in no apparent distress. Patient is well-developed. Eyes: Pupils are equal round and reactive to light. Conjunctivae are normal. Anicteric sclera. Ears nose, mouth and throat: Mallampati class 2. Normal posterior oropharynx. Uvula is midline. Neck: Trachea is midline. Visual inspection is normal. Respiratory: Diffuse inspiratory and expiratory wheezes. Mildly increased work of breathing. Nasal cannula in place. Cardiovascular: Regular rate and rhythm. No murmurs. No edema. Gastrointestinal: Normal bowel sounds, soft, nontender and nondistended. No hepatosplenomegaly noted. Musculoskeletal: No cyanosis. Patient is able to move all extremities. Strength is 5 out of 5 in the upper and lower extremities. Skin: No rashes, warm dry and intact. Neurologic: No obvious focal neurological deficits seen. Psychiatric: Alert and oriented x3 with a euthymic affect. Results & Data Results & Data Vital Signs (Past 12 Hours) Vital Signs Temp Pulse Pulse Pulse Resp BP Pulse Ox 12/19/23 11:31 36.3 C L 73 18 171/74 H 96 12/19/23 11:04 76 12/19/23 08:00 12/19/23 07:56 36.4 C L 65 20 166/75 H 95 12/19/23 07:19 73 18 95 12/19/23 03:45 36.4 C L 71 18 154/75 H 93 O2 Del Method O2 Flow Rate 12/19/23 11:31 Room Air 12/19/23 11:04 12/19/23 08:00 Nasal Cannula 2 12/19/23 07:56 Room Air 12/19/23 07:19 Nasal Cannula 2 12/19/23 03:45 Nasal Cannula PG Care Time/CCT Total # of Minutes Spent Total Time Spent with Patient: Total time spent is greater than 50% in coordination of care (as documented) at patient's floor/unit and/or counseling patient: Coding Level of Care Code 36086 INT INP/OBS CARE 375MIN Diagnoses COPD exacerbation J44.1 Multifocal pneumonia J18.9 BRENDA (obstructive sleep apnea) G47.33
[2023-12-19] MEDS: SODIUM CHLOR 7% 4 ML NEB NEB SCH (19:25)
[2023-12-19] MEDS: FORMOTEROL 20 MCG/2 ML VIAL NEB SCH (19:25)
[2023-12-19] MEDS: ALBUT/IPRATROP 3MG/0.5MG NEB 3 ML VIAL NEB SCH (19:26)
[2023-12-19] MEDS: METOPROLOL SUCC 50MG EXT REL TAB PO SCH (20:26)
[2023-12-20 07:23] LABS: Basophils # (auto) 0.01 K/uL (0.00-0.20); Basophils % (auto) 0.1 %; Hematocrit (blood only) 34.3 % (42.0-52.0); Hemoglobin 11.3 g/dl (14.0-18.0); Immature Granulocytes # (auto) 0.13 K/uL (0.01-0.20); Lymphocytes # (auto) 0.82 K/uL (1.20-3.40); Lymphocytes % (auto) 6.3 %; Mean Corpuscular Hemoglobin 31.2 pg (25.0-34.0); Mean Corpuscular Hgb Conc 32.9 g/dL (32.0-36.0); Mean Corpuscular Volume 94.8 fL (80.0-100.0); Mean Platelet Volume 10.9 fL (9.4-12.4); Monocytes # (auto) 0.69 K/uL (0.11-0.59); Monocytes % (auto) 5.3 %; Neutrophils # (auto) 11.33 K/uL (1.40-6.50); Neutrophils % (auto) 87.3 %; Platelet Count 194 K/uL (130-400); RDW Coefficient of Variation 13.8 % (11.5-14.5); RDW Standard Deviation 47.9 fL (36.4-46.3); Red Blood Count 3.62 M/uL (4.70-6.10); White Blood Count 12.98 K/ul (4.8-10.8)
[2023-12-20 07:54] LABS: Calcium 8.9 mg/dl (8.6-10.3); Est GFR (African American) 65.2 ml/min; Est GFR (Non-African American) 56.3 ml/min; Magnesium 2.1 mg/dl (1.7-2.4); Phosphorus 3.3 mg/dl (2.5-4.9); Potassium 4.5 mmol/L (3.5-5.1)
[2023-12-20 08:13] LABS: Ferritin 137.7 ng/ml (8-388)
[2023-12-20 08:20] LABS: Folate (Folic Acid),Ser orPlas 4.66 ng/ml (>5.38)
[2023-12-20 08:42] LABS: Estimated Average Glucose 134 mg/dl; Hemoglobin A1C 6.3 % (4.5-5.6)
[2023-12-20] MEDS: FOLIC ACID 1 MG TAB PO SCH (11:12)
[2023-12-20] MEDS: CYANOCOBALAMIN (B-12) 500 MCG TABLET PO SCH (11:12)
--- NOTE | 2023-12-20 12:41 | Pulmonology Progress Note ---
Date of Service December 20, 2023 Assessment & Plan (1) COPD exacerbation: (2) Multifocal pneumonia: (3) BRENDA (obstructive sleep apnea): Plan 78-year-old male with a history of severe coronary artery disease, COPD, BRENDA with noncompliance of PAP therapy, VATS left upper lobe biopsy and pleuroscopy which revealed emphysematous changes and no malignancy presenting to the hospital with an acute COPD exacerbation. CT chest on admission was personally reviewed and revealed scarring in the dependent regions of the lungs and groundglass/consolidative opacities in the right greater than left upper lobe regions. Postoperative changes noted with a wedge resection of the left upper lobe region. Bronchospasm substantially improved today. Continue Perforomist and budesonide nebs twice daily. Continue hypertonic saline twice daily. Continue percussive vest therapy 4 times a day to help with mucociliary clearance. Transition to prednisone 40 mg daily and then taper by 10 mg every 3 days until off. Continue ceftriaxone and doxycycline for total of 7 days. Urine Legionella antigen pending. Would recommend an ICS/LABA/LAMA inhaler upon discharge such as Breztri or Trelegy. Patient would benefit from outpatient pulmonary follow-up, PFTs and exhaled nitric oxide testing. No further recommendations from pulmonary perspective at this time. Please call with questions. Thank you for the consult. Admission and Anticipated Discharge Date Admission Date: December 18, 2023 Subjective Patient notes that his sleep was poor last night. He remains fatigued. Breathing is a little easier. Remains on low-flow oxygen. Review of Systems Review of Systems: All systems reviewed & are unremarkable except as noted in HPI & below Physical Exam Physical Exam: Constitutional: Patient appears to be of their stated age. Patient is in no apparent distress. Patient is well-developed. Eyes: Pupils are equal round and reactive to light. Conjunctivae are normal. Anicteric sclera. Ears nose, mouth and throat: Mallampati class 2. Normal posterior oropharynx. Uvula is midline. Neck: Trachea is midline. Visual inspection is normal. Respiratory: Minimal wheeze. Mild conversational dyspnea. Cardiovascular: Regular rate and rhythm. No murmurs. No edema. Gastrointestinal: Normal bowel sounds, soft, nontender and nondistended. No hepatosplenomegaly noted. Musculoskeletal: No cyanosis. Patient is able to move all extremities. Strength is 5 out of 5 in the upper and lower extremities. Skin: No rashes, warm dry and intact. Neurologic: No obvious focal neurological deficits seen. Psychiatric: Alert and oriented x3 with a euthymic affect. Results & Data Results & Data Vital Signs (Past 12 Hours) Vital Signs Temp Pulse Resp BP BP Pulse Ox O2 Del Method 12/20/23 10:09 36.3 C L 70 22 156/73 H 92 Room Air 12/20/23 09:04 65 12/20/23 07:39 36.3 C L 88 21 150/93 H 98 Nasal Cannula 12/20/23 07:09 59 L 18 93 Nasal Cannula 12/20/23 03:36 36.4 C L 79 18 159/82 H 93 Nasal Cannula O2 Flow Rate 12/20/23 10:09 12/20/23 09:04 12/20/23 07:39 3 12/20/23 07:09 2 12/20/23 03:36 3 PG Care Time/CCT Total # of Minutes Spent Total Time Spent with Patient: Total time spent is greater than 50% in coordination of care (as documented) at patient's floor/unit and/or counseling patient: Coding Level of Care Code 07475 SUB INP/OBS CARE 2/35MIN Diagnoses COPD exacerbation J44.1 Multifocal pneumonia J18.9 BRENDA (obstructive sleep apnea) G47.33
--- NOTE | 2023-12-20 13:38 | Hospitalist Progress Note ---
Date of Service December 20, 2023 Assessment & Plan (1) Sepsis: (2) COPD exacerbation: (3) CAD (coronary artery disease): (4) JOHN (acute kidney injury): (5) Sinus node dysfunction: (6) Elevated troponin: (7) Multifocal pneumonia: (8) Anemia: (9) BPH w urinary obs/LUTS: Plan Patient is a 78-year-old male with PMHx significant for asthma, COPD, lung nodule, asbestos exposure, bronchiectasis, mediastinal adenopathy, nocturnal hypoxemia, granulomatous lung disease for which he follows with pulmonology. PMHx also includes HTN, HLD, sinus node dysfunction s/p pacemaker, CAD s/p balloon angioplasty 2017, SVT, GERD, BPH, RLS, depression and chronic back pain. He presented to the ER with increased SOB and cough for a few days. Sepsis, POA Acute hypoxic respiratory Failure Pneumonia, community acquired Tachycardic and tachypneic on presentation with noted leukocytosis. Infectious source likely pulmonary. Lactate elevated persistently, procalcitonin normal. Biofire negative. MRSA nares negative CXR: Cardiomegaly and cardiac pacemaker with evidence of congestive failure. Suspect small pleural effusions. CT chest: compatible with multifocal pneumonia and reactive lymph nodes. Notes postsurgical changes of left upper lobe wedge resection. Sputum Cx NGTD Blood cultures x 2 sets with NGTD UA unremarkable IV Fluids Received cefepime and vancomycin in the ED Continue with Rocephin and doxycycline IV Solumedrol transitioned to po prednisone Continue home inhaler Xopenex nebulizer Guaifenesin, incentive spirometer, flutter valve oxygen supplementation as needed, wean as tolerated Pulmonology consulted, appreciate recs -Perforomist and budesonide nebs twice daily. -Continue hypertonic saline twice daily -Continue percussive vest therapy 4 times a day to help with mucociliary clearance -Transition to prednisone 40 mg daily and then taper by 10 mg every 3 days until off -Continue ceftriaxone and doxycycline for total of 7 days -Urine Legionella antigen pending -Would recommend an ICS/LABA/LAMA inhaler upon discharge such as Breztri or Trelegy. -Patient would benefit from outpatient pulmonary follow-up, PFTs and exhaled nitric oxide testing. Improving PSVT (paroxysmal supraventricular tachycardia) Sinus node dysfunction Pacemaker in situ History PSVT EKG with t wave inversions Echo with moderate LVH, EF 60-65%, LV motion normal, Grade 1 diastolic dysfunction, aortic valve sclerosis w/o stenosis pacemaker interrogation Cardiology consulted, appreciate recs - metoprolol succinate increased to 50mg BID Continue to monitor on telemetry 12/19- concern for episodes of v tach. Cardiology notified, no v tach, consistent with paced rhythm Elevated troponin Demand ischemia CAD (coronary artery disease) Troponin flat at 39.2-->47.9-->48.4-->39.1 Repeat EKG with t wave inversions anterior leads without acute ST elevation Likely demand ischemia from tachycardia Denies CP or palpitations S/P balloon angioplasty in 2017 Echo with moderate LVH, EF 60-65%, LV motion normal, Grade 1 diastolic dysfunction, aortic valve sclerosis w/o stenosis Cardiology consulted, appreciate recs -Continue Plavix, metoprolol succinate, atorvastatin -Doubt ACS at this time Continue telemetry monitoring HTN (hypertension) BP Stable Continue losartan, metoprolol succinate with holding parameters JOHN (acute kidney injury) BUN: 15, Cr: 1.38, GFR: 49. Baseline Cr: 1.1 with GFR: 66-70 Gentle IVF Avoid nephrotoxic meds Monitor renal function Stable Hyperglycemia Prediabetes Glucose levels elevated Pt also on steroids Hgba1c 6.6 Continue to monitor Anemia, normocytic, chronic B12 deficiency Folate Deficiency Hgb 10-13 range AM anemia panel (iron, b12 and folate) -Folate and B12 levels low, supplemented supplement as needed BPH (benign prostatic hyperplasia) Continue tamsulosin, finasteride Hypothyroidism TSH normal Continue levothyroxine Diet: HH DVT Prophylaxis: Heparin SQ DNR/DNI as per admitting discussion with pt Dispo: PT/OT ordered for further [facility] Admission and Anticipated Discharge Date Admission Date: December 18, 2023 Physical Exam Physical Exam: General: Alert, oriented. No acute distress Skin: No noted rashes or bruises Psych: Appropriate mood and affect HEENT: NC/AT CV: RRR Resp: Breath sounds decreased bilaterally at the time of exam, no increased effort of breathing Abdomen: Soft, nontender, nondistended Results & Data Results & Data Vital Signs (Past 12 Hours) Vital Signs Temp Pulse Resp BP BP Pulse Ox O2 Del Method 12/20/23 10:09 36.3 C L 70 22 156/73 H 92 Room Air 12/20/23 09:04 65 06/28/24 07:39 36.3 C L 88 21 150/93 H 98 Nasal Cannula 12/20/23 07:09 59 L 18 93 Nasal Cannula 12/20/23 03:36 36.4 C L 79 18 159/82 H 93 Nasal Cannula O2 Flow Rate 12/20/23 10:09 12/20/23 09:04 12/20/23 07:39 3 12/20/23 07:09 2 12/20/23 03:36 3 (8) Anemia Anemia type: unspecified type Qualified Code(s): D64.9 - Anemia, unspecified
--- NOTE | 2023-12-20 16:20 | Cardiology Progress Note ---
Date of Service December 20, 2023 Assessment & Plan (1) PSVT (paroxysmal supraventricular tachycardia): (2) Multifocal pneumonia: (3) Sepsis: (4) Lactic acidosis: (5) Pacemaker: Plan Patient presents with sepsis, multifocal pneumonia noted on CT scan, lactic acidosis. Noted to be in SVT on initial presentation with spontaneous conversion to sinus rhythm, transient ventricular paced rhythm noted on telemetry, now in sinus rhythm with atrial pacing. Device interrogation reviewed with findings of generator longevity of 2.5 years. Most recent interrogation had been back in 2022. He has had frequent brief episodes of supraventricular tachycardia in the last year rates often in the range of 135-145 bpm. The patient's EKG is abnormal with lateral T wave inversions, however this is a chronic finding. Has known coronary heart disease, unsuccessful revascularization of high-grade mid LAD stenosis at time of cardiac catheterization in 2016 for which medical management has been pursued in the interim with chronic clopidogrel therapy. Echocardiogram performed 12/19/2023 revealed moderate concentric left ventricular perjury, no regional wall motion motives, LVEF normal at 60-65%, mild aortic valve sclerosis without stenosis, grade 1 diastolic dysfunction, pulmonary artery systolic pressure estimated be 35 mmHg which is the upper limit of normal. Mild troponin I elevation with flat trend, felt to be related to myocardial strain rather than acute coronary syndrome. * Agree with broad-spectrum antibiotics, albuterol, prednisone, supplemental oxygen. * Pulmonary input noted and appreciated * Increased metoprolol succinate to 50 mg twice daily * Will arrange outpatient cardiology follow-up. * Arrangements have been made for him to receive a home pacemaker monitoring device and he received instructions this regard. His actually has 1 so they know how it works. Cardiology to sign off. Dr. Dennis is rounding 12/20. Please call with questions or concerns. Admission and Anticipated Discharge Date Admission Date: December 18, 2023 Subjective Patient seen in follow-up. He states his cough has improved to some degree. Telemetry reveals sinus rhythm, he did have a brief run of wide-complex rhythm felt to be related to transient ventricular pacing when he was wearing the vest for chest PT. No recurrence of SVT. Physical Exam Physical Exam: General: Ill in appearance without acute distress Eyes: conjunctiva are pink and non-injected, sclera clear Neck: normal jugular venous pulse, no hepatojugular reflux Chest: normal shape and normal respiratory effort Lungs: Coarse breath sounds noted at the bases Cardiac Exam: - regular heart sounds 1/6 systolic murmur, rubs, or gallops, no jugular venous distention Abdomen: abdomen soft, non-tender, no abnormal masses and no hepatosplenomegaly Musculoskeletal: no gait disturbance, no weakness Extremities: no edema and no cyanosis Neuro:awake, conversant, follows commands, no focal motor deficits Psych: appropriate affect and insight. Results & Data Vital Signs (Past 12 Hours) Vital Signs Temp Pulse Resp BP Pulse Ox Pulse Ox Pulse Ox 12/20/23 14:20 96 97 12/20/23 10:09 36.3 C L 70 22 156/73 H 92 12/20/23 09:04 65 12/20/23 07:39 36.3 C L 88 21 150/93 H 98 12/20/23 07:15 12/20/23 07:09 59 L 18 93 Pulse Ox O2 Del Method O2 Flow Rate O2 Flow Rate O2 Flow Rate O2 Flow Rate 12/20/23 14:20 95 3 3 3 12/20/23 10:09 Room Air 12/20/23 09:04 12/20/23 07:39 Nasal Cannula 3 12/20/23 07:15 High Flow Nasal Cannula 3 12/20/23 07:09 Nasal Cannula 2 Laboratory Results CBC 12/20/23 Range/Units 06:59 WBC 12.98 H (4.8-10.8) K/ul RBC 3.62 L (4.70-6.10) M/uL Hgb 11.3 L (14.0-18.0) g/dl Hct 34.3 L (42.0-52.0) % Plt Count 194 (130-400) K/uL Neut # (Auto) 11.33 H (1.40-6.50) K/uL Lymph # (Auto) 0.82 L (1.20-3.40) K/uL [place] # (Auto) 0.69 H (0.11-0.59) K/uL Eos # (Auto) 0.00 (0.00-0.50) K/uL Baso # (Auto) 0.01 (0.00-0.20) K/uL Comprehensive Metabolic Panel 12/20/23 Range/Units 06:59 Sodium 138 (136-145) mmol/L Potassium 4.5 (3.5-5.1) mmol/L Chloride 109 H (98-107) mmol/L Carbon Dioxide 23 (21-32) mmol/L BUN 27 H (6-23) mg/dl Creatinine 1.23 (0.6-1.4) mg/dl Glucose 138 H (70-99(Fasting)) mg/dl Calcium 8.9 (8.6-10.3) mg/dl Intake and Output 12/20/23 12/20/23 12/20/23 06:59 14:59 22:59 Intake Total 100 / 2710 2124 Output Total 325 / 625 Balance -2084 Intake: IV 1000 / 1000 Sodium Chloride 0.9% 1,000 ml @ 1000 / 1000 100 mls/hr IV .Q10H FELIX Rx#: [id number] Oral 100 / 660 1124 / 112 Output: Urine 325 / 625 Other: # Unmeasured Voids 1 1 Weight 90.7 kg Weight Measurement Method Built in [facility]
--- NOTE | 2023-12-20 17:23 | Communication Note ---
Date of Service: December 20, 2023 Telemtry reviewed. Tachycardia episodes from this afternoon consistent with ventricular paced rhythm. Repeat EKG performed at 1713 reveals AV sequential p acing.
[2023-12-20] MEDS: ACETAMINOPHEN 325 MG TAB PO PRN (21:04)
[2023-12-21 05:52] LABS: Basophils # (auto) 0.01 K/uL (0.00-0.20); Basophils % (auto) 0.1 %; Hematocrit (blood only) 34.5 % (42.0-52.0); Hemoglobin 11.3 g/dl (14.0-18.0); Immature Granulocytes # (auto) 0.09 K/uL (0.01-0.20); Lymphocytes # (auto) 1.25 K/uL (1.20-3.40); Lymphocytes % (auto) 13.3 %; Mean Corpuscular Hemoglobin 31.2 pg (25.0-34.0); Mean Corpuscular Hgb Conc 32.8 g/dL (32.0-36.0); Mean Corpuscular Volume 95.3 fL (80.0-100.0); Mean Platelet Volume 10.8 fL (9.4-12.4); Monocytes # (auto) 0.83 K/uL (0.11-0.59); Monocytes % (auto) 8.9 %; Neutrophils # (auto) 7.19 K/uL (1.40-6.50); Neutrophils % (auto) 76.7 %; Platelet Count 183 K/uL (130-400); RDW Coefficient of Variation 13.8 % (11.5-14.5); RDW Standard Deviation 47.9 fL (36.4-46.3); Red Blood Count 3.62 M/uL (4.70-6.10); White Blood Count 9.37 K/ul (4.8-10.8)
[2023-12-21 06:08] LABS: BUN Creatinine Ratio 23.5 (10-20); Calcium 8.6 mg/dl (8.6-10.3); Est GFR (African American) 67.9 ml/min; Est GFR (Non-African American) 58.6 ml/min; Magnesium 2.1 mg/dl (1.7-2.4); Phosphorus 2.9 mg/dl (2.5-4.9); Potassium 4.1 mmol/L (3.5-5.1)
--- NOTE | 2023-12-21 07:53 | Electrocardiogram Report ---
Test Reason : Blood Pressure : / mmHG Vent. Rate : 098 BPM Atrial Rate : 098 BPM P-R Int : 264 ms QRS Dur : 158 ms QT Int : 440 ms P-R-T Axes : 000 -46 130 degrees QTc Int : 561 ms AV dual-paced rhythm with prolonged AV conduction Abnormal ECG When compared with ECG of 19-DEC-2023 05:59, Ventricular pacing is now present Confirmed by Ramesh Lind ([id number]) on 12/21/2023 7:53:09 AM Referred By: Guera Escudero Confirmed By:Ramesh Lind
[2023-12-21] MEDS: predniSONE 20 MG TAB PO SCH (09:10)
--- NOTE | 2023-12-21 14:16 | XRay Report ---
XR chest 1V portable CLINICAL HISTORY: increased oxygen need COMPARISON STUDY: Chest radiograph and chest CT December 18, 2023. FINDINGS: A left subclavian pacer is in place. Intracanalicular electrodes are noted. There is no pne umothorax. There is a suspected small left pleural effusion. Interstitial thickening persists patchy bibasilar opacities are again noted. Cardiomediastinal silhouette is stable. IMPRESSION: 1. Persistent patchy bilateral airspace opacities suggestive of pneumonia. 2. Interstitial thickening, similar to prior exam. This may reflect superimposed pulmonary edema. 3. Small left pleural effusion. ACT 112: Negative or not required by law. Electronically signed by: Boyd Chandler M.D. 12/21/2023 2:15 PM
--- NOTE | 2023-12-21 15:35 | Hospitalist Progress Note ---
Date of Service December 21, 2023 Assessment & Plan (1) Sepsis: (2) COPD exacerbation: (3) CAD (coronary artery disease): (4) JOHN (acute kidney injury): (5) Sinus node dysfunction: (6) Elevated troponin: (7) Multifocal pneumonia: (8) Anemia: (9) BPH w urinary obs/LUTS: Plan Patient is a 78-year-old male with PMHx significant for asthma, COPD, lung nodule, asbestos exposure, bronchiectasis, mediastinal adenopathy, nocturnal hypoxemia, granulomatous lung disease for which he follows with pulmonology. PMHx also includes HTN, HLD, sinus node dysfunction s/p pacemaker, CAD s/p balloon angioplasty 2017, SVT, GERD, BPH, RLS, depression and chronic back pain. He presented to the ER with increased SOB and cough for a few days. Sepsis, POA Acute hypoxic respiratory Failure Pneumonia, community acquired Tachycardic and tachypneic on presentation with noted leukocytosis. Infectious source likely pulmonary. Lactate elevated persistently, procalcitonin normal. Biofire negative. MRSA nares negative CXR: Cardiomegaly and cardiac pacemaker with evidence of congestive failure. Suspect small pleural effusions. CT chest: compatible with multifocal pneumonia and reactive lymph nodes. Notes postsurgical changes of left upper lobe wedge resection. Sputum Cx NGTD Blood cultures x 2 sets with NGTD UA unremarkable IV Fluids Received cefepime and vancomycin in the ED Continue with Rocephin and doxycycline IV Solumedrol transitioned to po prednisone Continue home inhaler Xopenex nebulizer Guaifenesin, incentive spirometer, flutter valve oxygen supplementation as needed, wean as tolerated Pulmonology consulted, appreciate recs -Perforomist and budesonide nebs twice daily. -Continue hypertonic saline twice daily -Continue percussive vest therapy 4 times a day to help with mucociliary clearance -Transition to prednisone 40 mg daily and then taper by 10 mg every 3 days until off -Continue ceftriaxone and doxycycline for total of 7 days -Urine Legionella antigen pending -Would recommend an ICS/LABA/LAMA inhaler upon discharge such as Breztri or Trelegy. -Patient would benefit from outpatient pulmonary follow-up, PFTs and exhaled nitric oxide testing. Improving 12/20- 2 step with 3L at rest and with ambulation. Uses oxygen at home. Repeat chest xray. VBG ordered Ordered 1 dose of IV Lasix 20mg with mace per pt request. Monitor PSVT (paroxysmal supraventricular tachycardia) Sinus node dysfunction Pacemaker in situ History PSVT EKG with t wave inversions Echo with moderate LVH, EF 60-65%, LV motion normal, Grade 1 diastolic dysfunction, aortic valve sclerosis w/o stenosis pacemaker interrogation Cardiology consulted, appreciate recs - metoprolol succinate increased to 50mg BID Continue to monitor on telemetry 12/19- concern for episodes of v tach. Cardiology notified, no v tach, consistent with paced rhythm 12/20-tachycardia episodes during percussive vest therapy and breathing treatments Elevated troponin Demand ischemia CAD (coronary artery disease) Troponin flat at 39.2-->47.9-->48.4-->39.1 Repeat EKG with t wave inversions anterior leads without acute ST elevation Likely demand ischemia from tachycardia Denies CP or palpitations S/P balloon angioplasty in 2017 Echo with moderate LVH, EF 60-65%, LV motion normal, Grade 1 diastolic dysfunction, aortic valve sclerosis w/o stenosis Cardiology consulted, appreciate recs -Continue Plavix, metoprolol succinate, atorvastatin -Doubt ACS at this time Continue telemetry monitoring HTN (hypertension) BP Stable Continue losartan, metoprolol succinate with holding parameters JOHN (acute kidney injury) BUN: 15, Cr: 1.38, GFR: 49. Baseline Cr: 1.1 with GFR: 66-70 Gentle IVF Avoid nephrotoxic meds Monitor renal function Stable Hyperglycemia Prediabetes Glucose levels elevated Pt also on steroids Hgba1c 6.6 Continue to monitor Anemia, normocytic, chronic B12 deficiency Folate Deficiency Hgb 10-13 range AM anemia panel (iron, b12 and folate) -Folate and B12 levels low, supplemented supplement as needed BPH (benign prostatic hyperplasia) Continue tamsulosin, finasteride Hypothyroidism TSH normal Continue levothyroxine Diet: HH DVT Prophylaxis: Heparin SQ DNR/DNI as per admitting discussion with pt Dispo: PT/OT ordered for further recs Admission and Anticipated Discharge Date Admission Date: December 18, 2023 Subjective pt seen multiple times during the day. Initially in the AM, notified of high HRs. However was having breathing treatments and percussive vest therapy during that time. Previously discussed with cardiology the day before, no concerns with pacemaker. Later, pt completed 2 step. Requires 3L with ambulation and rest. States at baseline uses 3L just in the AM. Repeat chest XRAY ordered given increased oxygen requirement. Later discussed that he would like to stay another night for further observation Review of Systems Review of Systems: All systems reviewed & are unremarkable except as noted in Subjective Physical Exam Physical Exam: General: Alert, oriented. No acute distress Skin: No noted rashes or bruises Psych: Appropriate mood and affect HEENT: NC/AT CV: RRR Resp: Breath sounds decreased bilaterally at the time of exam, no increased effort of breathing Abdomen: Soft, nontender, nondistended Results & Data Results & Data Vital Signs (Past 12 Hours) Vital Signs Temp Pulse Pulse Pulse Pulse Pulse Pulse 12/21/23 15:08 107 H 12/21/23 11:01 36.7 C 79 12/21/23 10:54 97 H 97 H 82 12/21/23 08:56 59 L 12/21/23 07:26 36.6 C 66 12/21/23 07:15 12/21/23 07:00 99 H 12/21/23 06:57 70 12/21/23 04:13 36.6 C 69 Pulse Resp Resp Resp Resp Resp BP 12/21/23 15:08 12/21/23 11:01 19 161/78 H 12/21/23 10:54 109 H 24 18 18 18 12/21/23 08:56 12/21/23 07:26 21 161/86 H 12/21/23 07:15 12/21/23 07:00 12/21/23 06:57 18 12/21/23 04:13 18 BP Pulse Ox Pulse Ox Pulse Ox Pulse Ox Pulse Ox O2 Del Method 12/21/23 15:08 12/21/23 11:01 94 Nasal Cannula 12/21/23 10:54 90 87 L 90 84 L 12/21/23 08:56 12/21/23 07:26 94 Nasal Cannula 12/21/23 07:15 Nasal Cannula 12/21/23 07:00 12/21/23 06:57 94 Nasal Cannula 12/21/23 04:13 168/86 H 92 Room Air O2 Flow Rate O2 Flow Rate O2 Flow Rate O2 Flow Rate 12/21/23 15:08 12/21/23 11:01 3 12/21/23 10:54 3 2 3 12/21/23 08:56 12/21/23 07:26 3 12/21/23 07:15 3 12/21/23 07:00 12/21/23 06:57 4 12/21/23 04:13 (8) Anemia Anemia type: unspecified type Qualified Code(s): D64.9 - Anemia, unspecified
[2023-12-21] MEDS: FUROSEMIDE INJ 20 MG/2 ML VIAL IV ONE (16:25)
[2023-12-21 17:22] LABS: Base Excess VBG 0.5 mEq/L; HCO3 VBG 27 mmol/L; Oxygen Saturation VBG 64.7 %; PCO2 VBG 50 mmHg (38-50); PO2 VBG 37 mmHg; pH VBG 7.34 (7.36-7.41)
[2023-12-22 06:28] LABS: Basophils # (auto) 0.01 K/uL (0.00-0.20); Basophils % (auto) 0.1 %; Eosinophils # (auto) 0.01 K/uL (0.00-0.50); Eosinophils % (auto) 0.1 %; Hematocrit (blood only) 35.5 % (42.0-52.0); Immature Granulocytes # (auto) 0.15 K/uL (0.01-0.20); Immature Granulocytes % (auto) 1.9 %; Mean Corpuscular Hemoglobin 31.2 pg (25.0-34.0); Mean Corpuscular Hgb Conc 33.8 g/dL (32.0-36.0); Mean Corpuscular Volume 92.2 fL (80.0-100.0); Mean Platelet Volume 10.5 fL (9.4-12.4); Monocytes # (auto) 0.82 K/uL (0.11-0.59); Monocytes % (auto) 10.5 %; Neutrophils % (auto) 69.4 %; Platelet Count 175 K/uL (130-400); RDW Coefficient of Variation 13.2 % (11.5-14.5); RDW Standard Deviation 44.9 fL (36.4-46.3); Red Blood Count 3.85 M/uL (4.70-6.10); White Blood Count 7.79 K/ul (4.8-10.8)
[2023-12-22 07:04] LABS: BUN Creatinine Ratio 22.7 (10-20); Calcium 8.7 mg/dl (8.6-10.3); Creatinine Clr Calc Pharmacy 63.8 ml/min; Est GFR (African American) 74.7 ml/min; Est GFR (Non-African American) 64.4 ml/min; Phosphorus 3.4 mg/dl (2.5-4.9); Potassium 3.8 mmol/L (3.5-5.1)
[2023-12-22] MEDS: POTASSIUM CHLORIDE CRTAB 20 MEQ TABCR PO STA (10:24)
--- NOTE | 2023-12-22 11:38 | Hospitalist Progress Note ---
Date of Service December 22, 2023 Assessment & Plan (1) Sepsis: (2) COPD exacerbation: (3) CAD (coronary artery disease): (4) JOHN (acute kidney injury): (5) Sinus node dysfunction: (6) Elevated troponin: (7) Multifocal pneumonia: (8) Anemia: (9) BPH w urinary obs/LUTS: Plan Patient is a 78-year-old male with PMHx significant for asthma, COPD, lung nodule, asbestos exposure, bronchiectasis, mediastinal adenopathy, nocturnal hypoxemia, granulomatous lung disease for which he follows with pulmonology. PMHx also includes HTN, HLD, sinus node dysfunction s/p pacemaker, CAD s/p balloon angioplasty 2017, SVT, GERD, BPH, RLS, depression and chronic back pain. He presented to the ER with increased SOB and cough for a few days. Sepsis, POA Acute hypoxic respiratory Failure Pneumonia, community acquired Tachycardic and tachypneic on presentation with noted leukocytosis. Infectious source likely pulmonary. Lactate elevated persistently, procalcitonin normal. Biofire negative. MRSA nares negative CXR: Cardiomegaly and cardiac pacemaker with evidence of congestive failure. Suspect small pleural effusions. CT chest: compatible with multifocal pneumonia and reactive lymph nodes. Notes postsurgical changes of left upper lobe wedge resection. Sputum Cx NGTD Blood cultures x 2 sets with NGTD UA unremarkable IV Fluids Received cefepime and vancomycin in the ED Continue with Rocephin and doxycycline IV Solumedrol transitioned to po prednisone Continue home inhaler Xopenex nebulizer Guaifenesin, incentive spirometer, flutter valve oxygen supplementation as needed, wean as tolerated Pulmonology consulted, appreciate recs -Perforomist and budesonide nebs twice daily. -Continue hypertonic saline twice daily -Continue percussive vest therapy 4 times a day to help with mucociliary clearance -Transition to prednisone 40 mg daily and then taper by 10 mg every 3 days until off -Continue ceftriaxone and doxycycline for total of 7 days -Urine Legionella antigen pending -Would recommend an ICS/LABA/LAMA inhaler upon discharge such as Breztri or Trelegy. -Patient would benefit from outpatient pulmonary follow-up, PFTs and exhaled nitric oxide testing. Improving 12/20- 2 step with 3L at rest and with ambulation. Uses oxygen at home. Repeat chest xray. VBG ordered Ordered 1 dose of IV Lasix 20mg with mace per pt request. Monitor 12/21- chest xray noting small pleural effusion, VBG unremarkable. Will continue with daily po diuresis, monitor electrolytes and kidney function. PSVT (paroxysmal supraventricular tachycardia) Sinus node dysfunction Pacemaker in situ History PSVT EKG with t wave inversions Echo with moderate LVH, EF 60-65%, LV motion normal, Grade 1 diastolic dysfunction, aortic valve sclerosis w/o stenosis pacemaker interrogation Cardiology consulted, appreciate recs - metoprolol succinate increased to 50mg BID Continue to monitor on telemetry 12/19- concern for episodes of v tach. Cardiology notified, no v tach, consistent with paced rhythm 12/20-tachycardia episodes during percussive vest therapy and breathing treatments 12/21- pt with reported v tach episode overnight while sleeping. Cardiology notified once more, advised pacemaker re-check, keep K>4 and mag >2. Additional Kphos given. Appreciate further recs from Cardiology Elevated troponin Demand ischemia CAD (coronary artery disease) Troponin flat at 39.2-->47.9-->48.4-->39.1 Repeat EKG with t wave inversions anterior leads without acute ST elevation Likely demand ischemia from tachycardia Denies CP or palpitations S/P balloon angioplasty in 2017 Echo with moderate LVH, EF 60-65%, LV motion normal, Grade 1 diastolic dysfunction, aortic valve sclerosis w/o stenosis Cardiology consulted, appreciate recs -Continue Plavix, metoprolol succinate, atorvastatin -Doubt ACS at this time Continue telemetry monitoring HTN (hypertension) BP Stable Continue losartan, metoprolol succinate with holding parameters JOHN (acute kidney injury) BUN: 15, Cr: 1.38, GFR: 49. Baseline Cr: 1.1 with GFR: 66-70 Gentle IVF Avoid nephrotoxic meds Monitor renal function Stable Hyperglycemia Prediabetes Glucose levels elevated Pt also on steroids Hgba1c 6.6 Continue to monitor Anemia, normocytic, chronic B12 deficiency Folate Deficiency Hgb 10-13 range AM anemia panel (iron, b12 and folate) -Folate and B12 levels low, supplemented supplement as needed BPH (benign prostatic hyperplasia) Continue tamsulosin, finasteride Hypothyroidism TSH normal Continue levothyroxine Diet: HH DVT Prophylaxis: Heparin SQ DNR/DNI as per admitting discussion with pt Dispo: PT/OT ordered for further recs Admission and Anticipated Discharge Date Admission Date: December 18, 2023 Subjective pt was seen in AM having percussive vest treatment. States he was feeling better with the diuresis in the AM. Later after attempt to wean oxygen, pt stated that he was having more trouble breathing. Oxygen increased back up to 3L Review of Systems Review of Systems: All systems reviewed & are unremarkable except as noted in Subjective Physical Exam Physical Exam: General: Alert, oriented. No acute distress Skin: No noted rashes or bruises Psych: Appropriate mood and affect HEENT: NC/AT CV: RRR Resp: Breath sounds coarse bilaterally at the time of exam, increased effort of breathing Abdomen: Soft, nontender, nondistended Results & Data Results & Data Vital Signs (Past 12 Hours) Vital Signs Temp Pulse Pulse Pulse Resp BP Pulse Ox 12/22/23 08:52 61 12/22/23 07:29 37.0 C 66 20 166/90 H 94 12/22/23 07:15 12/22/23 07:10 110 H 12/22/23 07:04 69 18 96 12/22/23 04:02 36.4 C L 74 18 177/92 H 94 12/21/23 23:51 36.4 C L 72 17 173/86 H 98 O2 Del Method O2 Flow Rate FiO2 12/22/23 08:52 12/22/23 07:29 Nasal Cannula 3 12/22/23 07:15 Nasal Cannula 3 12/22/23 07:10 12/22/23 07:04 Nasal Cannula 3 12/22/23 04:02 Room Air 12/21/23 23:51 Nasal Cannula 3 (8) Anemia Anemia type: unspecified type Qualified Code(s): D64.9 - Anemia, unspecified
[2023-12-22] MEDS: FUROSEMIDE 20 MG TAB PO SCH (13:03)
[2023-12-22] MEDS: ALBUT/IPRATROP 3MG/0.5MG NEB 3 ML VIAL NEB PRN (13:29)
[2023-12-23 07:12] LABS: Basophils # (auto) 0.01 K/uL (0.00-0.20); Basophils % (auto) 0.1 %; Eosinophils # (auto) 0.04 K/uL (0.00-0.50); Eosinophils % (auto) 0.5 %; Hematocrit (blood only) 35.8 % (42.0-52.0); Hemoglobin 12.2 g/dl (14.0-18.0); Immature Granulocytes # (auto) 0.15 K/uL (0.01-0.20); Lymphocytes # (auto) 1.43 K/uL (1.20-3.40); Lymphocytes % (auto) 19.1 %; Mean Corpuscular Hemoglobin 31.4 pg (25.0-34.0); Mean Corpuscular Hgb Conc 34.1 g/dL (32.0-36.0); Mean Corpuscular Volume 92.3 fL (80.0-100.0); Mean Platelet Volume 10.4 fL (9.4-12.4); Monocytes # (auto) 0.68 K/uL (0.11-0.59); Monocytes % (auto) 9.1 %; Neutrophils # (auto) 5.19 K/uL (1.40-6.50); Neutrophils % (auto) 69.2 %; Platelet Count 193 K/uL (130-400); RDW Coefficient of Variation 13.2 % (11.5-14.5); RDW Standard Deviation 43.9 fL (36.4-46.3); Red Blood Count 3.88 M/uL (4.70-6.10)
[2023-12-23 11:06] LABS: Calcium 8.8 mg/dl (8.6-10.3); Potassium 3.7 mmol/L (3.5-5.1)
[2023-12-23 11:11] LABS: BUN Creatinine Ratio 23.9 (10-20); Creatinine Clr Calc Pharmacy 64.4 ml/min; Est GFR (African American) 75.5 ml/min; Est GFR (Non-African American) 65.1 ml/min; Phosphorus 3.4 mg/dl (2.5-4.9)
--- NOTE | 2023-12-23 12:25 | Cardiology Progress Note ---
Date of Service December 23, 2023 Assessment & Plan (1) PSVT (paroxysmal supraventricular tachycardia): (2) Multifocal pneumonia: (3) Sepsis: (4) Lactic acidosis: (5) Pacemaker: Plan Complex 78 year old male patient admitted with sepsis, multifocal pneumonia, lactic acidosis. SVT noted on initial presentation, with spontaneous conversion to sinus rhythm. Initial device interrogation with frequent brief episodes of supraventricular tachycardia. Metoprolol succinate dosing increased to 50 mg twice a day. Echocardiogram performed 12/19/2023 revealed moderate concentric left ventricular perjury, no regional wall motion motives, LVEF normal at 60-65%, mild aortic valve sclerosis without stenosis, grade 1 diastolic dysfunction, pulmonary artery systolic pressure estimated be 35 mmHg which is the upper limit of normal. Mild troponin I elevation with flat trend, felt to be related to myocardial strain rather than acute coronary syndrome. Patient with known coronary heart disease, unsuccessful revascularization of high-grade mid LAD stenosis at time of cardiac catheterization in 2017 for which medical management was recommended. Continue medical management. Telemetry with pacemaker mediated tachycardia. [employer] Paramedic Supervisor contacted. Device reprogrammed 12/23/2023 Outpatient cardiology follow-up. Please contact with any questions or concerns. I spent a total of 25 minutes on the date of service in preparation, delivery, and documentation of the care provided to this patient excluding any time spent in the performance of separately billed services. This visit was a split-shared visit with the substantive portion of the medical decision making performed by the supervising clearing inspector/billing provider. Refer to Dr. Dennis's documentation. Admission and Anticipated Discharge Date Admission Date: December 18, 2023 Supervising Physician Co-Signing Physician Notes I have personally performed a history and physical examination on the patient. I have reviewed the advance practitioner's documentation, and I agree with, and take responsibility for the plan of care. 78-year-old male admitted with sepsis, multifocal pneumonia, acute hypoxic respiratory failure, and lactic acidosis. Cardiology asked to reevaluate patient due to wide-complex tachycardia on telemetry. Telemetry strips reviewed. Ventricular pacing at approximately 100 bpm recorded. Pacemaker interrogation performed at bedside. Atrial rate stabilization causing pacing up to 100 bpm at that time, patient losing AV conduction which would initiate ventricular pacing. Findings suggestive of pacemaker mediated tachycardia. Pacemaker programming changes: 1. Atrial rate stabilization turned off. 2. Atrial preference pacing turned off. I spent a total of 25 minutes on the date of service in preparation, delivery, and documentation of the care provided to this patient, excluding any time spent in the performance of separately billed services. Wenceslao Dennis DO [facility] Subjective Patient seen and examined. Chart, medications, and telemetry reviewed. Feels a little better today. Significant coughing episodes note. No chest pain. No palpitations. Forrest catheter remains in place. Hopeful for discharge today. Telemetry with pacemaker mediated tachycardia, not ventricular tachycardia. Review of Systems Review of Systems: Complete review of systems is otherwise as stated above, negative, or noncontributory. Physical Exam Physical Exam: General: A&Ox3. NAD. HENT: Normocephalic. Atraumatic. Eyes: PER. Conjunctiva pink, sclera clear. Neck: No JVD. Heart: RRR. Lungs: Diminished. Decrease. Marked diffuse rhonchi. Abdomen: +BS. Soft. No organomegaly. Extremities: No edema. Pulses: Posterior tibial=1/4. Results & Data Vital Signs (Past 12 Hours) Vital Signs Temp Pulse Pulse Pulse Resp BP BP 12/23/23 10:53 36.9 C 90 22 150/85 H 12/23/23 08:11 12/23/23 07:35 36.4 C L 60 21 170/78 H 12/23/23 07:03 80 16 12/23/23 05:30 60 12/23/23 03:52 36.4 C L 69 18 181/89 H Pulse Ox O2 Del Method O2 Flow Rate 12/23/23 10:53 93 Nasal Cannula 3.5 12/23/23 08:11 Nasal Cannula 3 12/23/23 07:35 98 Nasal Cannula 3.5 12/23/23 07:03 95 Nasal Cannula 3 12/23/23 05:30 12/23/23 03:52 96 Nasal Cannula 3.5 Laboratory Results CBC 12/23/23 Range/Units 06:42 WBC 7.50 (4.8-10.8) K/ul RBC 3.88 L (4.70-6.10) M/uL Hgb 12.2 L (14.0-18.0) g/dl Hct 35.8 L (42.0-52.0) % Plt Count 193 (130-400) K/uL Neut # (Auto) 5.19 (1.40-6.50) K/uL Lymph # (Auto) 1.43 (1.20-3.40) K/uL Page # (Auto) 0.68 H (0.11-0.59) K/uL Eos # (Auto) 0.04 (0.00-0.50) K/uL Baso # (Auto) 0.01 (0.00-0.20) K/uL Comprehensive Metabolic Panel 12/23/23 Range/Units 06:42 Sodium 140 (136-145) mmol/L Potassium 3.7 (3.5-5.1) mmol/L Chloride 105 (98-107) mmol/L Carbon Dioxide 31 (21-32) mmol/L BUN 26 H (6-23) mg/dl Creatinine 1.09 (0.6-1.4) mg/dl Glucose 89 (70-99(Fasting)) mg/dl Calcium 8.8 (8.6-10.3) mg/dl Intake and Output 12/22/23 12/23/23 12/23/23 22:59 06:59 14:59 Intake Total 825 / 1775 Output Total 900 / 1375 Balance 825 / 400 -900 / 400 Intake: IV 50 / 50 [id number] SODIUM 2,000 mg In 50 / 50 50 ml @ 100 mls/hr IV Q24H [facility] Rx#:[id number] Oral 775 / 1725 Output: Urine Amount (Catheter) 900 / 1375 Forrest/Indwelling 900 / 1375 Other: Weight 91.1 kg Weight Measurement Method Built in [facility]
--- NOTE | 2023-12-23 13:02 | Discharge Summary ---
Discharge Summary Date of Service December 23, 2023 Principal Dx & Hospital Course #1 = Principal Diagnosis (1) Sepsis: (2) COPD exacerbation: (3) CAD (coronary artery disease): (4) JOHN (acute kidney injury): (5) Sinus node dysfunction: (6) Elevated troponin: (7) Multifocal pneumonia: (8) Anemia: (9) BPH w urinary obs/LUTS: Plan Patient is a 78-year-old male with PMHx significant for asthma, COPD, lung nodule, asbestos exposure, bronchiectasis, mediastinal adenopathy, nocturnal hypoxemia, granulomatous lung disease for which he follows with pulmonology. PMHx also includes HTN, HLD, sinus node dysfunction s/p pacemaker, CAD s/p balloon angioplasty 2017, SVT, GERD, BPH, RLS, depression and chronic back pain. He presented to the ER with increased SOB and cough for a few days. Sepsis, POA Acute hypoxic respiratory Failure Pneumonia, community acquired Tachycardic and tachypneic on presentation with noted leukocytosis. Infectious source likely pulmonary. Lactate elevated persistently, procalcitonin normal. Biofire negative. MRSA nares negative CXR: Cardiomegaly and cardiac pacemaker with evidence of congestive failure. Suspect small pleural effusions. CT chest: compatible with multifocal pneumonia and reactive lymph nodes. Notes postsurgical changes of left upper lobe wedge resection. Sputum Cx NGTD Blood cultures x 2 sets with NGTD UA unremarkable Urine Legionella negative VBG unremarkable IV Fluids, since discontinued Received cefepime and vancomycin in the ED Continued with Rocephin and doxycycline for about 5-6 days, and discharged with po cefdinir and doxycycline to complete a 7 day course IV Solumedrol transitioned to po prednisone- discharged with taper Continued home inhaler Xopenex nebulizer Guaifenesin, incentive spirometer, flutter valve, percussive vest therapy oxygen supplementation as needed -pt requiring 3L continuously on discharge. Discharged with home oxygen use (pt states he has oxygen at home). States he uses 3L at baseline but only in the AM at home. Now requiring it continuously. Received doses of IV and po lasix Pulmonology consulted, appreciate recs -Perforomist and budesonide nebs twice daily. -Continue hypertonic saline twice daily -Continue percussive vest therapy 4 times a day to help with mucociliary clearance -Transition to prednisone 40 mg daily and then taper by 10 mg every 3 days until off -Continue ceftriaxone and doxycycline for total of 7 days -Urine Legionella antigen pending -Would recommend an ICS/LABA/LAMA inhaler upon discharge such as Breztri or Trelegy. -Patient would benefit from outpatient pulmonary follow-up, PFTs and exhaled nitric oxide testing. Pt discharged with Trelegy inhaler, Per pt's pharmacy will cost $47, no prior auth needed Please ensure close pulmonology followup after discharge. PSVT (paroxysmal supraventricular tachycardia) Sinus node dysfunction Pacemaker in situ Pacemaker mediated tachycardia History PSVT EKG with t wave inversions Echo with moderate LVH, EF 60-65%, LV motion normal, Grade 1 diastolic dysfunction, aortic valve sclerosis w/o stenosis pacemaker interrogation Cardiology consulted, appreciate recs - metoprolol succinate increased to 50mg BID Continue to monitor on telemetry 12/19- concern for episodes of v tach. Cardiology notified, no v tach, consi stent with paced rhythm 12/20-tachycardia episodes during percussive vest therapy and breathing treatments 12/21- pt with reported v tach episode overnight while sleeping. Cardiology notified once more, advised pacemaker re-check, keep K>4 and mag >2. Additional Kphos given. Appreciate further recs from Cardiology 12/22- Pt's pacemaker reprogrammed. Per cardiology on day of discharge: -Telemetry strips reviewed. -Ventricular pacing at approximately 100 bpm recorded. -Pacemaker interrogation performed at bedside. -Atrial rate stabilization causing pacing up to 100 bpm at that time, patient losing AV conduction which would initiate ventricular pacing. -Findings suggestive of pacemaker mediated tachycardia. -Pacemaker programming changes: -1. Atrial rate stabilization turned off. -2. Atrial preference pacing turned off. Close cardiology followup after discharge Elevated troponin Demand ischemia CAD (coronary artery disease) Troponin flat at 39.2-->47.9-->48.4-->39.1 Repeat EKG with t wave inversions anterior leads without acute ST elevation Likely demand ischemia from tachycardia Denies CP or palpitations S/P balloon angioplasty in 2017 Echo with moderate LVH, EF 60-65%, LV motion normal, Grade 1 diastolic dysfunction, aortic valve sclerosis w/o stenosis Cardiology consulted, appreciate recs -Continue Plavix, metoprolol succinate, atorvastatin -Doubt ACS at this time telemetry monitoring Cardiology followup after discharge HTN (hypertension) BP Stable Continue losartan, metoprolol succinate with holding parameters PCP and cardiology followup JOHN (acute kidney injury) BUN: 15, Cr: 1.38, GFR: 49. Baseline Cr: 1.1 with GFR: 66-70 Gentle IVF Avoid nephrotoxic meds Monitor renal function Stable PCP followup Hyperglycemia Prediabetes Glucose levels elevated Pt also on steroids Hgba1c 6.6 PCP followup Anemia, normocytic, chronic B12 deficiency Folate Deficiency Hgb 10-13 range AM anemia panel (iron, b12 and folate) -Folate and B12 levels low, supplemented supplement as needed BPH (benign prostatic hyperplasia) Continue tamsulosin, finasteride Hypothyroidism TSH normal Continue levothyroxine Notes For Next Care Provider Please ensure close pulmonology followup after discharge -pulmonology recommending pulmonary function tests and nitric oxide testing Please ensure close Cardiology followup after discharge -pt's pacemaker was adjusted on 12/22 for pacemaker mediated tachycardia Please continue to monitor b12 and folate levels Medication Changes From Visit The kiln loader recommended the following for discharge: -continue the 40mg prednisone taper until complete -continue the antibiotics cefdinir and doxycycline to complete a 7 day course of treatment -use a Trelegy inhaler, prescribed. Per pt's pharmacy will cost $47, no prior auth needed -3L of oxygen at home for use, please continue with pt's home oxygen for use Per Cardiology: metoprolol succinate at 50mg twice a day Vitamin b12 and folate daily supplementation Admission HPI Per Admitting Provider Patient is 78-year-old male with PMH COPD, asthma, bronchiectasis, HTN, HLD, sinus node dysfunction s/p pacemaker, CAD s/p balloon angioplasty 2017, SVT, GERD, BPH, RLS, depression, chronic back pain and others listed below presented to ER with c/o SOB. States increased SOB and increased cough x couple of days. History obtained from patient, family, inpatient and outpatient chart review. He states he also noticed increased wheezing past several days. Reports chronic cough usually productive but unsure of coloration of sputum as "doesn't really pay attention". Today feeling more SOB and coughing more and his cousin thought he should be evaluated at ER. He doesn't feel he has had increased sputum production. Today had episode of post tussive emesis. Denies vomiting otherwise. Patient states he is [place] [employer] [place] since yesterday. He has not been around farm animals. He is unaware of any sick contacts. Patient states uses oxygen at home as needed and typically uses at least once a day and sometimes uses at night. He thinks he might use 4L O2 but is unsure. States that he has daily inhaler but doesn't use rescue inhalers or nebulizers "much". He is unaware of any fever or chills at home. Denies any chest pains or palpitations today. Has chronic BLE pain and states doesn't ambulate much but when he does he has baseline SOB. Denies diaphoresis, diarrhea, constipation, RAMIREZ, dizziness, syncope, vision changes, neck pain, palpitations, hemoptysis, sore throat, otalgia, increased rhinorrhea, abdominal pain, paresthesias, extremity weakness, extremity edema, rashes, urinary symptoms. Admission Exam Per Admitting Provider General: +intermittent coughing with some tachypnea but when cough subsides appears in no apparent respiratory distress, overweight Head: normocephalic, atraumatic Eyes: conjunctiva non-injected, anicteric ENT: normal inspection external ears, nose, mucous membranes moist Neck: supple, trachea midline Lungs: +intermittent coughing with some tachypnea but when cough subsides appears in no apparent respiratory distress, +diminished breath sounds at bases, +wheezing throughout, no rales noted CV: +tachycardia rate 110, regular rhythm, no pretibial edema Abd: protuberant, normal BS, soft, non-tender Ext: no cyanosis, no calf tenderness Neuro: A&O x 3, no focal deficits noted, normal affect Skin: warm, dry Discharge Exam General: Alert, oriented. No acute distress Skin: No noted rashes or bruises Psych: Appropriate mood and affect HEENT: NC/AT CV: RRR Resp: Breath sounds slightly coarse bilaterally at the time of exam, no increased effort of breathing Abdomen: Soft, nontender, nondistended Extremities: no edema in lower extremities bilaterally Updated Medication List Medication Instructions Recorded Confirmed Type acetaminophen 500 mg tablet 1,000 mg PO TID PRN Pain 03/06/23 12/18/23 History (Tylenol Extra Strength) amitriptyline 25 mg tablet 50 mg PO HS 03/06/23 12/18/23 History atorvastatin 80 mg tablet 80 mg PO DAILY 03/06/23 12/18/23 History clopidogrel 75 mg tablet 75 mg PO QAM 03/06/23 12/18/23 History duloxetine 30 mg capsule,delayed 30 mg PO QPM 03/06/23 12/18/23 History release duloxetine 60 mg capsule,delayed 60 mg PO QPM 03/06/23 12/18/23 History release finasteride 5 mg tablet 5 mg PO DAILY 03/06/23 12/18/23 History gabapentin 300 mg capsule 300 mg PO TID 03/06/23 12/18/23 History levothyroxine 75 mcg tablet 75 mcg PO DAILYBB 03/06/23 12/18/23 History losartan 50 mg tablet 50 mg PO DAILY 03/06/23 12/18/23 History nitroglycerin 0.4 mg sublingual 0.4 mg sublingual DIRECTED PRN 03/06/23 12/18/23 History tablet Chest Pain pantoprazole 40 mg tablet,delayed 40 mg PO DAILY 03/06/23 12/18/23 History release sennosides 8.6 mg tablet (senna) 17.2 mg PO BID 03/06/23 12/18/23 History sodium chloride 0.65 % nasal spray 2 spray intranasal QID 03/06/23 12/18/23 History aerosol (Saline Nasal) tamsulosin 0.4 mg capsule 0.8 mg PO QAM 03/06/23 12/18/23 History cyanocobalamin (vitamin B-12) 500 1,000 mcg (2 x 500 mcg) PO QAM #60 12/22/23 Rx mcg tablet tabs fluticasone fur. 100 mcg-umeclid 1 inh inhalation DAILY #28 ea 12/22/23 Rx 62.5 mcg-vilant 25 mcg inhalat.powder (Trelegy Ellipta) folic acid 1 mg tablet 1 mg PO QAM #30 tabs 12/22/23 Rx cefdinir 300 mg capsule 300 mg PO BID #2 caps 12/23/23 Rx doxycycline hyclate 100 mg tablet 100 mg PO BID #4 tabs 12/23/23 Rx prednisone 10 mg tablet See Rx Instructions .Route 12/23/23 Rx .COMPLEX #18 tabs Hospital Stay Data Consultations 12/18/23 14:17 ED Decision to Admit Stat 12/18/23 16:27 Consult Cardiology Routine 12/19/23 08:35 Consult Pulmonology Routine Diagnostic Imagining Performed 12/18/23 14:24 CT chest without contrast [CT chest diagnostic wo con] Urgent Chest X-Ray 12/18/23 12:54 SINGLE VIEW CHEST CLINICAL HISTORY: Sepsis FINDINGS: An AP, portable, upright chest radiograph is compared to study dated 03/06/2023. The examination is degraded by portable technique and apical lordotic positioning. A 2-lead cardiac pacemaker partially obscures the left upper chest. The heart is enlarged. There is pulmonary vascular congestion and mild interstitial edema. Small pleural effusions are suspected with dependent atelectasis. No pneumothorax is seen. The skeletal structures are osteopenic. The bony thorax is grossly intact. Arthritic change is seen in the shoulders and spine. Intrathecal leads project over the thoracic spine. Cholecystectomy clips are noted in the right upper quadrant. IMPRESSION: 1. Cardiomegaly and cardiac pacemaker with evidence of congestive failure. 2. Suspect small pleural effusions. ACT 112: Negative or not required by law. Electronically signed by: Geoffrey Auguste M.D. 12/18/2023 1:[address] 12/18/23 14:24 CT chest diagnostic wo con CLINICAL HISTORY: SOB, wheezing, fever- r/o PNA TECHNIQUE: Multidetector row helical CT of the chest was performed. Coronal and sagittal reformations were obtained. Automated dose lowering techniques and/or adjustment according to patient size were utilized for this exam. CT DOSE: 818.24 mGy.cm Comparison: Comparison is made to CT chest 02/24/2020 an chest radiograph 12/18/2023 FINDINGS: Lungs and pleura: Atelectasis versus scarring is seen in the dependent portions of the lungs. [place] and consolidative opacities in the right greater than left upper lobe. Postsurgical changes of left upper lobe wedge resection noted. Heart and pericardium: There is cardiomegaly without evidence of pericardial effusion. Vessels: Severe atherosclerotic changes in the aorta and coronary arteries. Ascending aortic aneurysm measures 45 mm in diameter. Mediastinum and [place]: Enlarged lymph nodes measure up to 13 mm in diameter. Chest wall and lower neck: Unremarkable. Abdomen: Patient is status post cholecystectomy. Bones: Degenerative changes in the thoracic spine. Spinal stimulator is seen. IMPRESSION: Findings are compatible with multifocal pneumonia and reactive lymph nodes. ACT 112: Negative or not required by law. Electronically signed by: Eduardo Salinas M.D. 12/18/2023 3:43 PM Chest X-Ray 12/21/23 13:41 XR chest 1V portable CLINICAL HISTORY: increased oxygen need COMPARISON STUDY: Chest radiograph and chest CT December 18, 2023. FINDINGS: A left subclavian pacer is in place. Intracanalicular electrodes are noted. There is no pneumothorax. There is a suspected small left pleural effusion. Interstitial thickening persists patchy bibasilar opacities are again noted. Cardiomediastinal silhouette is stable. IMPRESSION: 1. Persistent patchy bilateral airspace opacities suggestive of pneumonia. 2. Interstitial thickening, similar to prior exam. This may reflect superimposed pulmonary edema. 3. Small left pleural effusion. ACT 112: Negative or not required by law. Electronically signed by: Boyd Chandler M.D. 12/21/2023 2:15 PM Pending Results Patient Have Any Pending Studies at Discharge: No Discharge Instructions Given to Patient (Per Discharging Provider) Mr Shaver, Alejandro are being discharged home. You were seen by the kiln loader and supervisor microfilm duplicating unit. The kiln loader recommended the following for discharge: -continue the prednisone taper until complete -continue the antibiotics cefdinir for 1 more day (you got a dose of a similar antibiotic before you left) and doxycycline for 2 more days to complete a 7 day course of treatment of both. -use the Trelegy inhaler prescribed as best you can. Per your pharmacy it will cost you $47. -outpatient followup with pulmonology for pulmonary function tests and other testing -we determined that you need 3L of oxygen at home for use, please continue with the oxygen you indicated you had at home. Please keep close followup with pulmonology after discharge The supervisor microfilm duplicating unit recommended the following for discharge: -continue with metoprolol succinate at 50mg twice a day -outpatient cardiology followup -they are working to get you set up for a home pacemaker monitoring device -You pacemaker settings were adjusted while you were here Please keep close followup with cardiology after discharge We also noted that your Vitamin b12 and folate levels were low. So we are discharging you home with supplements to help with that. Please keep close follow up with your primary care provider after discharge as well as your cardiology and pulmonary specialists. Please do not hesitate to come back to the emergency room if your symptoms worsen or return. It was a pleasure taking care of you while you were here. Total Time Total Time Spent Total Time Spent (In Minutes): 75
== END 2023-12-23 16:09 | disposition home or self-care (01) | DRG 871 ==
LOC: ED 12:37 → SUATTDRO 14:39 → EDINP 14:39 → 2S 16:01

== ENCOUNTER 2024-01-21 15:40 | Inpatient (IN) ==
--- NOTE | 2024-01-21 16:10 | XRay Report ---
XR chest 1V portable HISTORY: 78 years-old Male syncope acute syncope COMPARISON: 12/01/2023 TECHNIQUE: AP view the chest FINDINGS: Cardiomegaly. Left subclavian pacer. Partially imaged spinal stimulator leads. Subsegmental left basi lar densities. No pneumothorax or overt pulmonary edema. Small left pleural effusion again noted. IMPRESSION: 1. Cardiomegaly without pulmonary edema. 2. Small left pleural effusion with mild left basilar densities which may represent atelectasis versu s pneumonia. ACT 112: Negative or not required by law. The above report was generated using voice recognition software. It may contain grammatical, syntax o r spelling errors. Electronically signed by: Doug Pinon M.D. 01/21/2024 4:09 PM
[2024-01-21 16:44] LABS: Basophils # (auto) 0.05 K/uL (0.00-0.20); Basophils % (auto) 0.8 %; Eosinophils # (auto) 0.11 K/uL (0.00-0.50); Eosinophils % (auto) 1.8 %; Hematocrit (blood only) 41.1 % (42.0-52.0); Hemoglobin 13.8 g/dl (14.0-18.0); Immature Granulocytes # (auto) 0.04 K/uL (0.01-0.20); Immature Granulocytes % (auto) 0.7 %; Lymphocytes # (auto) 1.34 K/uL (1.20-3.40); Lymphocytes % (auto) 22.3 %; Mean Corpuscular Hemoglobin 31.2 pg (25.0-34.0); Mean Corpuscular Hgb Conc 33.6 g/dL (32.0-36.0); Mean Platelet Volume 10.5 fL (9.4-12.4); Monocytes # (auto) 0.81 K/uL (0.11-0.59); Monocytes % (auto) 13.5 %; Neutrophils # (auto) 3.66 K/uL (1.40-6.50); Neutrophils % (auto) 60.9 %; Platelet Count 246 K/uL (130-400); RDW Coefficient of Variation 13.7 % (11.5-14.5); RDW Standard Deviation 46.6 fL (36.4-46.3); Red Blood Count 4.42 M/uL (4.70-6.10); White Blood Count 6.01 K/ul (4.8-10.8)
--- NOTE | 2024-01-21 16:44 | Emergency Department Note ---
Impression & Plan Syncope and collapse, JOHN (acute kidney injury), Non-ST elevation MN (NSTEMI) ED Provider Note HISTORY OF PRESENT ILLNESS: Patient is a 78-year-old male presenting with syncope. Patient was going to a cardiology follow-up status post hospital discharge when he became lightheaded and passed out. Patient denies any chest pain or shortness of breath prior to the syncopal episode. He denies striking his head. He states that ever since his discharge from the hospital, he has to be "careful when I stand up because I get a little lightheaded." He states he was doing well walking into the cardiology appointment, but then became very lightheaded and passed out. He denies any DVT or PE history. He is on Plavix. Denies any chest pain. He wears 3 L nasal cannula at baseline. He has no complaints on arrival to the ER, other than feeling weak and rundown. ROS: as above PHYSICAL EXAM: Constitutional: Patient appears in no acute distress. HENT: Head: Normocephalic and atraumatic. Eyes: EOMI, PERRL Mouth/Throat: Mucous membranes moist. Neck: Trachea midline. Neck supple. Cardiovascular: Paced rhythm. No murmurs, rubs or gallops. Intact distal pulses. Pulmonary/Chest: No respiratory distress. Breath sounds clear and equal bilaterally. No wheezes or rales. Abdominal: Abdomen soft, no tenderness, rebound or guarding. Musculoskeletal: No edema, tenderness or deformity noted. Skin: Warm and dry. No rash, erythema, pallor or cyanosis Psychiatric: Appropriate mood and affect for situation. Neurological: Alert and keenly responsive. CN II-XII grossly intact, moving all extremities equally and fully. MDM: - Vitals signs showed hypotension - History obtained via patient. History as above. - Chronic conditions affecting care: HTN; HLD; COPD; hypothyroidism; DVT - Differential diagnoses include, but are not limited to: ACS; dysrhythmia; electrolyte abnormality; orthostatic hypotension; PE; pneumonia; CVA; intracranial hemorrhage - Order placed for continuous cardiac monitoring. At this time, monitor showed rate of 77 bpm with paced rhythm rhythm, per my interpretation. - External medical records reviewed. Discharge summary dated 12/23/2023 was reviewed. Patient was admitted for sepsis secondary to community-acquired pneumonia. - EKG interpreted by myself showed atrial paced rhythm. Rate 66 bpm. - Laboratory workup interpreted by myself showed normal WBC; stable electrolytes; JOHN (Cr 1.51); elevated troponin (101.4) - CXR negative for pneumonia, per my interpretation - Patient given 500 cc NS. - CT head wo contrast negative for acute abnormality - Discussion was had with casework supervisor about patient's case and need for admission - Hospitalist consulted for admission - Patient admitted to [facility] service for further evaluation and management. ASSESSMENT AND PLAN: Diagnosis: syncope and collapse; NSTEMI; JOHN Plan: admit Past Med/Surg History Problem List (Updated 01/21/24 @ 17:18 by Naty Bolanos MD) Non-ST elevation MN (NSTEMI) (Acute) JOHN (acute kidney injury) (Acute) Syncope and collapse (Acute) BRENDA (obstructive sleep apnea) Lactic acidosis COPD exacerbation (Acute) Sepsis (Acute) CAD (coronary artery disease) JOHN (acute kidney injury) Sinus node dysfunction Elevated troponin Sepsis Multifocal pneumonia Anemia (Acute) Acute exacerbation of chronic obstructive pulmonary disease (Acute) COPD exacerbation BPH w urinary obs/LUTS Hematuria Moderate persistent asthma ASCVD (arteriosclerotic cardiovascular disease) Altered mental status Confusion (Acute) Weakness (Acute) Fall (Acute) Closed femur fracture (Acute) Acute dehydration (Acute) NSVT (nonsustained ventricular tachycardia) PSVT (paroxysmal supraventricular tachycardia) Syncope (Acute) Cough (Acute) Wide-complex tachycardia (Acute) DDD (degenerative disc disease), lumbar HTN (hypertension) Cellulitis of face (Acute) Hypothyroidism Zoster ophthalmicus DVT prophylaxis Herpes zoster (Acute) Left shoulder pain Chronic anticoagulation (Chronic) Chronic right SI joint pain (Chronic) Abnormal weight loss (Acute) Ankle enthesopathy (Acute) Asthma, allergic (Acute) Atherosclerotic heart disease of [place] coronary artery without angina pectoris (Acute) Chronic bronchitis (Acute) Chronic cholecystitis (Acute) Chronic rhinitis (Acute) Cough (Acute) Deep vein thrombosis of distal lower extremity (Acute) Diverticulosis of colon (Acute) Dyslipidemia (Acute) Edema (Acute) Idiopathic scoliosis (Acute) Inflamed seborrheic keratosis (Acute) Major depressive disorder (Acute) Mediastinal adenopathy (Acute) Pleural thickening (Acute) Pleurisy (Acute) Pulmonary nodule seen on imaging study (Acute) SOB (shortness of breath) (Acute) Sleep apnea (Acute) Vitamin D deficiency (Acute) Neuritis of left ulnar nerve (Chronic) Myofascial pain (Chronic) Chronic hip pain after total replacement of right hip joint (Chronic) 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 (Chronic) Symptomatic bradycardia (Chronic) Emphysema of lung (Chronic) 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) Lumbar post-laminectomy syndrome (Chronic) DVT (deep venous thrombosis) (Chronic 01/29/14) Hypothyroidism (Chronic) COPD (chronic obstructive pulmonary disease) (Chronic) BPH (benign prostatic hyperplasia) (Chronic) Carotid stenosis (Chronic) Diastolic dysfunction (Chronic) SSS (sick sinus syndrome) (Chronic) Pacemaker (Chronic) HTN (hypertension) (Chronic) HLD (hyperlipidemia) (Chronic) Depression (Chronic) RLS (restless legs syndrome) (Chronic) History of left heart catheterization (LHC) (Chronic) Fingertip amputation (Chronic) Exertional shortness of breath (Chronic) Lung infiltrate (Chronic) Osteoarthritis of left knee (Chronic) Medical History (Updated 01/21/24 @ 17:18 by Naty Bolanos MD) Spinal cord stimulator status Surgical History Status post insertion of spinal cord stimulator Family History Mother Heart disease Social History Smoking Status: Never smoker Tobacco Type: Cigarettes Do You Dip or Chew Tobacco: No; Hx Alcohol Use: No Hx Substance Use: No Preferred Language: Lithuanian Communication Ability: Effective Radio Interference Expert Required: No Beliefs That Will Affect Care: None marital status: Current Living Situation: Spouse Current Living Situation Comment: home with current occupational status: disabled Feels Safe at Home: Yes Assistive Devices: Cane, Oxygen - Continuous, Scooter/Electric Scooter, Stair Lift, Walker and Wheelchair Allergies Allergies Allergy/AdvReac Type Severity Reaction Status Date / Time adhesive Allergy Intermediate SKIN Verified 01/21/24 17:02 BLISTERS latex Allergy Unknown PER Verified 01/21/24 17:02 [facility] "PT DENIES" Home Meds Home Medications Medication Instructions Recorded Confirmed acetaminophen 500 mg tablet 1,000 mg PO TID PRN Pain 03/06/23 01/21/24 (Tylenol Extra Strength) amitriptyline 25 mg tablet 50 mg PO HS 03/06/23 01/21/24 atorvastatin 80 mg tablet 80 mg PO DAILY 03/06/23 01/21/24 clopidogrel 75 mg tablet 75 mg PO QAM 03/06/23 01/21/24 duloxetine 30 mg capsule,delayed 30 mg PO QPM 03/06/23 01/21/24 release duloxetine 60 mg capsule,delayed 60 mg PO QPM 03/06/23 01/21/24 release finasteride 5 mg tablet 5 mg PO DAILY 03/06/23 01/21/24 gabapentin 300 mg capsule 300 mg PO TID 03/06/23 01/21/24 levothyroxine 75 mcg tablet 75 mcg PO DAILYBB 03/06/23 01/21/24 losartan 50 mg tablet 50 mg PO DAILY 03/06/23 01/21/24 nitroglycerin 0.4 mg sublingual 0.4 mg sublingual DIRECTED PRN 03/06/23 01/21/24 tablet Chest Pain pantoprazole 40 mg tablet,delayed 40 mg PO DAILY 03/06/23 01/21/24 release sennosides 8.6 mg tablet (senna) 17.2 mg PO BID PRN Constipation 03/06/23 01/21/24 sodium chloride 0.65 % nasal spray 2 spray intranasal QID 03/06/23 01/21/24 aerosol (Saline Nasal) tamsulosin 0.4 mg capsule 0.8 mg PO QAM 03/06/23 01/21/24 ipratropium 0.5 mg-albuterol 3 mg 3 ml inhalation Q6H PRN Shortness 01/21/24 01/21/24 (2.5 mg base)/3 mL nebulization Of Breath soln metoprolol succinate 25 mg 37.5 mg PO QAM 01/21/24 01/21/24 tablet,extended release 24 hr umeclidinium 62.5 mcg-vilanterol 1 inh inhalation DAILY 01/21/24 01/21/24 25 mcg/actuation powdr for inhalation (Anoro Ellipta) Results & Data (ED) Vital Signs Vital Signs - 24 hr 01/21/24 16:16 01/21/24 16:16 01/21/24 16:16 Temperature 36.9 C 36.9 C Temperature Source Oral Oral Pulse Rate 77 Pulse Rhythm Respiratory Rate 18 18 Blood Pressure 95/63 L Blood Pressure Mean 73 Pulse Oximetry 95 88 L 96 Oxygen Delivery Method Nasal Cannula Nasal Cannula Nasal Cannula Oxygen Flow Rate 3 0 3 Sepsis Recent Fever Within 48 Hours No Sepsis New/Unexplained Change in Mental Status No Sepsis Action Taken by Nursing No Action Required Oxygen Flow Rate - Titration 3 Pulse Oximetry Post Tiitration 95 01/21/24 16:16 Temperature Temperature Source Pulse Rate 77 Pulse Rhythm Regular Respiratory Rate Blood Pressure Blood Pressure Mean Pulse Oximetry 95 Oxygen Delivery Method Nasal Cannula Oxygen Flow Rate 3 Sepsis Recent Fever Within 48 Hours Sepsis New/Unexplained Change in Mental Status Sepsis Action Taken by Nursing Oxygen Flow Rate - Titration Pulse Oximetry Post Tiitration Laboratory Data 01/21/24 16:14 01/21/24 16:14 Lab Results 01/21/24 Range/Units 16:14 WBC 6.01 (4.8-10.8) K/ul RBC 4.42 L (4.70-6.10) M/uL Hgb 13.8 L (14.0-18.0) g/dl Hct 41.1 L (42.0-52.0) % MCV 93.0 (80.0-100.0) fL MCH 31.2 (25.0-34.0) pg MCHC 33.6 (32.0-36.0) g/dL RDW Std Deviation 46.6 H (36.4-46.3) fL RDW Coeff of Jarrett 13.7 (11.5-14.5) % Plt Count 246 (130-400) K/uL MPV 10.5 (9.4-12.4) fL Immature Gran % (Auto) 0.7 % Neut % (Auto) 60.9 % Lymph % (Auto) 22.3 % Kerr % (Auto) 13.5 % Eos % (Auto) 1.8 % Baso % (Auto) 0.8 % Neut # (Auto) 3.66 (1.40-6.50) K/uL Lymph # (Auto) 1.34 (1.20-3.40) K/uL Kerr # (Auto) 0.81 H (0.11-0.59) K/uL Eos # (Auto) 0.11 (0.00-0.50) K/uL Baso # (Auto) 0.05 (0.00-0.20) K/uL Immature Gran # (Auto) 0.04 (0.01-0.20) K/uL PT Cancelled INR Cancelled Sodium 137 (136-145) mmol/L Potassium 4.5 (3.5-5.1) mmol/L Chloride 104 (98-107) mmol/L Carbon Dioxide 25 (21-32) mmol/L Anion Gap 8 (3-11) BUN 14 (6-23) mg/dl Creatinine 1.51 H (0.6-1.4) mg/dl Est Cr Clr Drug Dosing 41.0 ml/min Est GFR ( Amer) 50.9 ml/min Est GFR (Non-Af Amer) 43.9 ml/min BUN/Creatinine Ratio 9.3 L (10-20) Glucose 114 H (70-99(Fasting)) mg/dl Calcium 9.8 (8.6-10.3) mg/dl Magnesium 2.4 (1.7-2.4) mg/dl Total Bilirubin 0.5 (0.2-1.0) mg/dl AST 21 (13-39) U/L ALT 16 (7-52) U/L Alkaline Phosphatase 85 (34-104) U/L Troponin I High Sens 101.4 H* (0-20) pg/ml Total Protein 6.9 (6.0-8.3) gm/dl Albumin 4.1 (3.4-5.0) gm/dl Globulin 2.8 (2.5-4.0) gm/dl Albumin/Globulin Ratio 1.5 (0.9-2) TSH 5.140 H (0.300-4.500) uIu/ml Imaging Data Radiologist's Impression: Chest X-Ray 01/21/24 15:44 XR chest 1V portable HISTORY: 78 years-old Male syncope acute syncope COMPARISON: 12/01/2023 TECHNIQUE: AP view the chest FINDINGS: Cardiomegaly. Left subclavian pacer. Partially imaged spinal stimulator leads. Subsegmental left basilar densities. No pneumothorax or overt pulmonary edema. Small left pleural effusion again noted. IMPRESSION: 1. Cardiomegaly without pulmonary edema. 2. Small left pleural effusion with mild left basilar densities which may represent atelectasis versus pneumonia. ACT 112: Negative or not required by law. The above report was generated using voice recognition software. It may contain grammatical, syntax or spelling errors. Electronically signed by: Doug Pinon M.D. 01/21/2024 4:[address] 01/21/24 16:[address] DOSE: 1100.35 mGy.cm HISTORY: syncope TECHNIQUE: Multiaxial CT images of the head were performed without the use of intravenous contrast. Automated exposure control was utilized for this study. A dose lowering technique was utilized adhering to the principles of ALARA. Comparison: Head CT 10/28/2022. Findings: The paranasal sinuses and mastoid air cells are clear. The calvarium and skull base are intact. There is no mass, hematoma, midline shift, acute infarct. White matter hypodensity is nonspecific but suggestive of microvascular ischemic change. The ventricles and sulci demonstrate mild age-related involutional changes. Impression: No acute intracranial abnormality. Atrophy and microvascular ischemic changes. ACT 112: Negative or not required by law. Electronically signed by: Andrei Guillen M.D. 01/21/2024 5:23 PM Discharge Plan Visit Data Chief Complaint: Syncope Stated Complaint: syncope ED Provider: Naty Bolanos Discharge Problem: Syncope and collapse, JOHN (acute kidney injury), Non-ST elevation MN (NSTEMI) Forms Stand Alone Forms: [facility] Prescriptions Prescriptions: No Action amitriptyline 25 mg tablet 50 mg PO HS tamsulosin 0.4 mg capsule 0.8 mg PO QAM gabapentin 300 mg capsule 300 mg PO TID Rx Instructions: Am, noon, hs duloxetine 30 mg capsule,delayed release(DR/EC) 30 mg PO QPM Rx Instructions: TOTAL DOSE 90 MG--TAKES WITH 60 MG CAP. duloxetine 60 mg capsule,delayed release(DR/EC) 60 mg PO QPM Rx Instructions: TOTAL DOSE 90 MG--TAKES WITH 30 MG CAP. losartan 50 mg tablet 50 mg PO DAILY atorvastatin 80 mg tablet 80 mg PO DAILY sennosides [senna] 8.6 mg Tablet 17.2 mg PO BID PRN (Reason: Constipation) clopidogrel 75 mg tablet 75 mg PO QAM acetaminophen [Tylenol Extra Strength] 500 mg Tablet 1,000 mg PO TID PRN (Reason: Pain) levothyroxine 75 mcg tablet 75 mcg PO DAILYBB pantoprazole 40 mg tablet,delayed release (DR/EC) 40 mg PO DAILY nitroglycerin 0.4 mg tablet, sublingual 0.4 mg sublingual DIRECTED PRN (Reason: Chest Pain) finasteride 5 mg tablet 5 mg PO DAILY Saline Nasal 0.65 % Aerosol,[place] 2 spray INTRANASAL QID ipratropium-albuterol 0.5 mg-3 mg(2.5 mg base)/3 mL Solution For Nebulization 3 ml INHALATION Q6H PRN (Reason: Shortness Of Breath) metoprolol succinate 25 mg tablet extended release 24 hr 37.5 mg PO QAM Anoro Ellipta 62.5-25 mcg/actuation Blister With Device 1 inh INHALATION DAILY Referrals Referrals: Guera Escudero MD [Primary Care Provider] -
[2024-01-21 17:05] LABS: Albumin Globulin Ratio 1.5 (0.9-2); Albumin Level 4.1 gm/dl (3.4-5.0); BUN Creatinine Ratio 9.3 (10-20); Bilirubin,Total 0.5 mg/dl (0.2-1.0); Calcium 9.8 mg/dl (8.6-10.3); Est GFR (African American) 50.9 ml/min; Est GFR (Non-African American) 43.9 ml/min; Globulin 2.8 gm/dl (2.5-4.0); Magnesium 2.4 mg/dl (1.7-2.4); Potassium 4.5 mmol/L (3.5-5.1); Total Protein 6.9 gm/dl (6.0-8.3)
[2024-01-21 17:13] LABS: Troponin I High Sensitivity 101.4 pg/ml (0-20)
[2024-01-21 17:19] LABS: Thyroid Stimulating Hormone 5.14 uIu/ml (0.300-4.500)
--- NOTE | 2024-01-21 17:25 | CT Scan Report ---
HEAD CT NONCONTRAST CT DOSE: 1100.35 mGy.cm HISTORY: syncope TECHNIQUE: Multiaxial CT images of the head were performed without the use of intravenous contrast. A utomated exposure control was utilized for this study. A dose lowering technique was utilized adheri ng to the principles of ALARA. Comparison: Head CT 10/28/2022. Findings: The paranasal sinuses and mastoid air cells are clear. The calvarium and skull base are int act. There is no mass, hematoma, midline shift, acute infarct. White matter hypodensity is nonspecifi c but suggestive of microvascular ischemic change. The ventricles and sulci demonstrate mild age-rela pat involutional changes. Impression: No acute intracranial abnormality. Atrophy and microvascular ischemic changes. ACT 112: Negative or not required by law. Electronically signed by: Andrei Guillen M.D. 01/21/2024 5:23 PM
[2024-01-21 17:54] LABS: T4 Free Thyroxine 0.81 ng/dl (0.61-1.60)
[2024-01-21 18:02] LABS: Prothrombin Time 10.7 Seconds (9.0-12.0)
[2024-01-21] MEDS: SODIUM CHLORIDE 0.9% 500 ML IV ONE (18:03)
--- NOTE | 2024-01-21 18:38 | History & Physical Report ---
Date of Service January 21, 2024 Assessment & Plan (1) Syncope and collapse: (2) JOHN (acute kidney injury): (3) COPD (chronic obstructive pulmonary disease): (4) Chronic hypoxic respiratory failure: (5) Chronic bronchitis: (6) Pacemaker: (7) CAD (coronary artery disease): (8) BPH w urinary obs/LUTS: (9) BRENDA (obstructive sleep apnea): Plan This is a 78yo M with a PMH of COPD, asthma, bronchiectasis, chronic respiratory failure on 3L NC O2, HTN, HLD, sinus node dysfunction s/p pacemaker, CAD s/p balloon angioplasty 2017, SVT, GERD, BPH, RLS, depression, chronic back pain and others listed below presented to ED following syncopal episode in [facility] parking lot this afternoon. Patient was recently admitted from 12/17-12/22 in setting of sepsis 2/2 multifocal PNA, COPD exacerbation as well as pacemaker mediated tachycardia. During previous admission, was evaluated by cardiology and pacemaker was adjusted on 12/22 for pacemaker mediated tachycardia. Metoprolol succinate increased to 50mg BID. Echocardiogram performed 12/19/2023 revealed moderate concentric left ventricular perjury, no regional wall motion motives, LVEF normal at 60-65%, mild aortic valve sclerosis without stenosis, grade 1 diastolic dysfunction, pulmonary artery systolic pressure estimated be 35 mmHg which is the upper limit of normal. Syncopal episodes Recent pacemaker mediated tachycardia History of PSVT Endorsing episodes of syncope since admission as above Pacemaker interrogated at [facility] today following syncopal episode - episode of tachyarrhythmia around 2:00 PM lasting 5 minutes Appears clinically dry - continue gentle fluids Hold Toprol for now Monitor on telemetry Cardiology consulted Elevated troponin CAD No chest pain Likely demand ischemia in setting of possible arrhythmia EKG with atrial-paced rhythm with prolonged AV conduction, LVH Recent echo with moderate LVH, EF 60-65%, LV motion normal, Grade 1 diastolic dysfunction, aortic valve sclerosis w/o stenosis Initial trop today 101 -> 178 Trend troponin Continue statin, plavix. Holding Toprol while hypotensive COPD Chronic hypoxic resp failure on 3L NC O2 Chronic cough, at O2 baseline Afebrile, procal neg, lactate 2.1 CXR with cardiomegaly without pulmonary edema. Small left pleural effusion with mild left basilar densities which may represent atelectasis versus pneumonia Xopenex nebs, hypertonic saline nebs, Anoro Ellipta Continue supplemental O2 Started on doxy given recent multifocal PNA, chronic bronchitis HTN (hypertension) Hypotensive in the office, appears clinically dry on exam Hold losartan, Toprol for now Continue gentle IV fluids JOHN (acute kidney injury) Cr 1.51 (Baseline Cr: 1.1) Continue gentle fluids Daily BMP Hyperglycemia Prediabetes Glucose levels elevated Pt also on steroids Hgba1c 6.6 PCP to follow Anemia Hgb 13.8, improved from previous (also likely element of hemoconcentration) Continue folate, B12 supplementation BPH (benign prostatic hyperplasia) Continue tamsulosin, finasteride Hypothyroidism Continue levothyroxine DVT Ppx: SQ heparin Code status: DNR/DNI PCP: Elio Retana Dispo: Admitted to PCU Patient seen in collaboration with Dr. Price. Please see addendum. I spent a total of 75 minutes coordinating, documenting, and providing care for this patient excluding time spent in the performance of separately billed services. History of Present Illness Chief Complaint: syncopal event Primary Care Provider: Guera Escudero MD This is a 78yo M with a PMH of COPD, asthma, bronchiectasis, chronic respiratory failure on 3L NC O2, HTN, HLD, sinus node dysfunction s/p pacemaker, CAD s/p balloon angioplasty 2016, SVT, GERD, BPH, RLS, depression, chronic back pain and others listed below presented to ED following syncopal episode in [facility] this afternoon. Patient was recently admitted to our service from 12/17-12/22 in setting of sepsis 2/2 multifocal PNA, COPD exacerbation as well as pacemaker mediated tachycardia. During previous admission, was evaluated by cardiology and pacemaker was adjusted on 12/22 for pacemaker mediated tachycardia. Metoprolol succinate increased to 50mg BID. Echocardiogram performed 12/19/2023 revealed moderate concentric left ventricular perjury, no regional wall motion motives, LVEF normal at 60-65%, mild aortic valve sclerosis without stenosis, grade 1 diastolic dysfunction, pulmonary artery systolic pressure estimated be 35 mmHg which is the upper limit of normal. Since discharge back home, patient has felt generally weak and intermittently dizzy. States he feels fine when resting but when he stands up he feels immediately lightheaded. Endorsing episodes of syncope at home with most recent episode occurring in the parking lot of [facility] cardiology clinic today. Per chart review, try to get out of the car and fell to the ground with possible loss of consciousness. Per cards note, was significantly hypotensive upon repeat evaluation in the exam room. Pacemaker interrogation reviews episode of tachyarrhythmia around 2:00 PM lasting 5 minutes. Patient states he is taking medications but family had some concerns about accuracy of this in clinic visit this afternoon. Currently feeling okay at rest. No fever or chills. Appetite is unchanged. No chest pain, chronic shortness of breath on 3 L nasal cannula oxygen. No nausea, vomiting, abdominal pain, dysuria, diarrhea or constipation. Allergies Allergy/AdvReac Type Severity Reaction Status Date / Time adhesive Allergy Intermediate SKIN Verified 01/21/24 17:02 BLISTERS latex Allergy Unknown PER Verified 01/21/24 17:02 [facility] "PT DENIES" Home Medications Medication Instructions Recorded Confirmed Type acetaminophen 500 mg tablet 1,000 mg PO TID PRN Pain 03/06/23 01/21/24 History (Tylenol Extra Strength) amitriptyline 25 mg tablet 50 mg PO HS 03/06/23 01/21/24 History atorvastatin 80 mg tablet 80 mg PO DAILY 03/06/23 01/21/24 History clopidogrel 75 mg tablet 75 mg PO QAM 03/06/23 01/21/24 History duloxetine 30 mg capsule,delayed 30 mg PO QPM 03/06/23 01/21/24 History release duloxetine 60 mg capsule,delayed 60 mg PO QPM 03/06/23 01/21/24 History release finasteride 5 mg tablet 5 mg PO DAILY 03/06/23 01/21/24 History gabapentin 300 mg capsule 300 mg PO TID 03/06/23 01/21/24 History levothyroxine 75 mcg tablet 75 mcg PO DAILYBB 03/06/23 01/21/24 History losartan 50 mg tablet 50 mg PO DAILY 03/06/23 01/21/24 History nitroglycerin 0.4 mg sublingual 0.4 mg sublingual DIRECTED PRN 03/06/23 01/21/24 History tablet Chest Pain pantoprazole 40 mg tablet,delayed 40 mg PO DAILY 03/06/23 01/21/24 History release sennosides 8.6 mg tablet (senna) 17.2 mg PO BID PRN Constipation 03/06/23 01/21/24 History sodium chloride 0.65 % nasal spray 2 spray intranasal QID 03/06/23 01/21/24 History aerosol (Saline Nasal) tamsulosin 0.4 mg capsule 0.8 mg PO QAM 03/06/23 01/21/24 History ipratropium 0.5 mg-albuterol 3 mg 3 ml inhalation Q6H PRN Shortness 01/21/24 01/21/24 History (2.5 mg base)/3 mL nebulization Of Breath soln metoprolol succinate 25 mg 37.5 mg PO QAM 01/21/24 01/21/24 History tablet,extended release 24 hr umeclidinium 62.5 mcg-vilanterol 1 inh inhalation DAILY 01/21/24 01/21/24 History 25 mcg/actuation powdr for inhalation (Anoro Ellipta) Past Med/Surg History Problem List (Updated 01/21/24 @ 18:53 by Melissa Fuller PA-C) JOHN (acute kidney injury) (Acute) Syncope and collapse (Acute) BRENDA (obstructive sleep apnea) CAD (coronary artery disease) Sinus node dysfunction Elevated troponin Anemia (Acute) BPH w urinary obs/LUTS Moderate persistent asthma ASCVD (arteriosclerotic cardiovascular disease) Closed femur fracture (Acute) PSVT (paroxysmal supraventricular tachycardia) Cough (Acute) Wide-complex tachycardia (Acute) DDD (degenerative disc disease), lumbar HTN (hypertension) Hypothyroidism Zoster ophthalmicus Herpes zoster (Acute) Chronic anticoagulation (Chronic) Chronic right SI joint pain (Chronic) Asthma, allergic (Acute) Atherosclerotic heart disease of [place] coronary artery without angina pectoris (Acute) Chronic bronchitis (Acute) Chronic cholecystitis (Acute) Deep vein thrombosis of distal lower extremity (Acute) Diverticulosis of colon (Acute) Dyslipidemia (Acute) Idiopathic scoliosis (Acute) Inflamed seborrheic keratosis (Acute) Major depressive disorder (Acute) Mediastinal adenopathy (Acute) Pleurisy (Acute) Pulmonary nodule seen on imaging study (Acute) SOB (shortness of breath) (Acute) Sleep apnea (Acute) Vitamin D deficiency (Acute) Neuritis of left ulnar nerve (Chronic) Myofascial pain (Chronic) Chronic hip pain after total replacement of right hip joint (Chronic) 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 (Chronic) Symptomatic bradycardia (Chronic) Emphysema of lung (Chronic) 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) Lumbar post-laminectomy syndrome (Chronic) DVT (deep venous thrombosis) (Chronic 01/29/14) Hypothyroidism (Chronic) COPD (chronic obstructive pulmonary disease) (Chronic) BPH (benign prostatic hyperplasia) (Chronic) Carotid stenosis (Chronic) Diastolic dysfunction (Chronic) SSS (sick sinus syndrome) (Chronic) Pacemaker (Chronic) HTN (hypertension) (Chronic) HLD (hyperlipidemia) (Chronic) Depression (Chronic) RLS (restless legs syndrome) (Chronic) History of left heart catheterization (LHC) (Chronic) Fingertip amputation (Chronic) Exertional shortness of breath (Chronic) Lung infiltrate (Chronic) Osteoarthritis of left knee (Chronic) Medical History (Updated 01/21/24 @ 18:53 by Melissa Fuller PA-C) Chronic hypoxic respiratory failure Spinal cord stimulator status Surgical History Status post insertion of spinal cord stimulator Family History Mother Heart disease Social History Smoking Status: Never smoker Tobacco Type: Cigarettes Do You Dip or Chew Tobacco: No; Hx Alcohol Use: No Hx Substance Use: No Preferred Language: Thai Communication Ability: Effective Pbx Inspector Required: No Beliefs That Will Affect Care: None marital status: Current Living Situation: Spouse Current Living Situation Comment: home with current occupational status: disabled Feels Safe at Home: Yes Assistive Devices: Cane, Oxygen - Continuous, Scooter/Electric Scooter, Stair Lift, Walker and Wheelchair Review of Systems Review of Systems: At least ten systems reviewed and negative except as noted in the HPI. Physical Exam Physical Exam: Please see Dr. Price's addendum for physical exam. Results & Data Results & Data Vital Signs (Past 12 Hours) Vital Signs Temp Pulse Pulse Resp BP BP Pulse Ox 01/21/24 18:00 63 18 116/55 L 97 01/21/24 16:16 77 95 01/21/24 16:16 36.9 C 18 96 01/21/24 16:16 88 L 01/21/24 16:16 36.9 C 77 18 95/63 L 95 O2 Del Method O2 Flow Rate 01/21/24 18:00 Nasal Cannula 3 07/30/24 16:16 Nasal Cannula 3 01/21/24 16:16 Nasal Cannula 3 01/21/24 16:16 Nasal Cannula 0 01/21/24 16:16 Nasal Cannula 3 Laboratory Results Short CBC 01/21/24 Range/Units 16:14 WBC 6.01 (4.8-10.8) K/ul Hgb 13.8 L (14.0-18.0) g/dl Hct 41.1 L (42.0-52.0) % Plt Count 246 (130-400) K/uL BMP 01/21/24 16:14 Sodium 137 Potassium 4.5 Chloride 104 Carbon Dioxide 25 BUN 14 Creatinine 1.51 H Glucose 114 H Calcium 9.8 Liver Function 01/21/24 Range/Units 16:14 Total Bilirubin 0.5 (0.2-1.0) mg/dl AST 21 (13-39) U/L ALT 16 (7-52) U/L Alkaline Phosphatase 85 (34-104) U/L Albumin 4.1 (3.4-5.0) gm/dl Diagnostic Findings Chest X-Ray 01/21/24 15:44 XR chest 1V portable HISTORY: 78 years-old Male syncope acute syncope COMPARISON: 12/01/2023 TECHNIQUE: AP view the chest FINDINGS: Cardiomegaly. Left subclavian pacer. Partially imaged spinal stimulator leads. Subsegmental left basilar densities. No pneumothorax or overt pulmonary edema. Small left pleural effusion again noted. IMPRESSION: 1. Cardiomegaly without pulmonary edema. 2. Small left pleural effusion with mild left basilar densities which may represent atelectasis versus pneumonia. ACT 112: Negative or not required by law. The above report was generated using voice recognition software. It may contain grammatical, syntax or spelling errors. Electronically signed by: Doug Pinon M.D. 01/21/2024 4:[address] 01/21/24 16:[address] DOSE: 1100.35 mGy.cm HISTORY: syncope TECHNIQUE: Multiaxial CT images of the head were performed without the use of intravenous contrast. Automated exposure control was utilized for this study. A dose lowering technique was utilized adhering to the principles of ALARA. Comparison: Head CT 10/28/2022. Findings: The paranasal sinuses and mastoid air cells are clear. The calvarium and skull base are intact. There is no mass, hematoma, midline shift, acute infarct. White matter hypodensity is nonspecific but suggestive of microvascular ischemic change. The ventricles and sulci demonstrate mild age-related involutional changes. Impression: No acute intracranial abnormality. Atrophy and microvascular ischemic changes. ACT 112: Negative or not required by law. Electronically signed by: Andrei Guillen M.D. 01/21/2024 5:23 PM Code Status & VTE Plan VTE Prophylaxis Plan VTE Prophylaxis will be ordered: Yes Supervising Physician Co-Signing Physician Notes Patient is a 78-year-old male with past medical history of symptomatic bradycardia status post dual chamber pacemaker in 2016, coronary artery disease with mid LAD lesion (unsuccessful PCI), hypertension, hyperlipidemia, SVT who presents to the ED after syncopal episode. Patient was recently here in the hospital earlier in December for multifocal pneumonia. He reports that he has been doing reasonably well after the hospitalization. He reports mild persistent cough. He reports feeling dizzy on standing up. He denies fever, chills, chest pain or shortness of breath. On physical examination; Constitutional: Alert oriented x 3; not in distress. Respiratory: Bilateral clear breath sounds Cardiovascular: RRR, no murmur, no edema Vessels: no JVD or carotid bruit Chest: normal inspection of chest Abdomen: normal bowel sounds, soft, nontender, no hepatosplenomegaly Musculoskeletal: no cyanosis or clubbing, extremities motor strength 5/5 Skin: no rashes, warm and dry normal turgor Neurologic: PERRL, EOMI, accommodation nl, no face palsy, no dysarthria CN's II- XI intact bilaterally and moves all extremities Psychiatric: A+Ox3, euthymic affect Assessment/plan Syncopal episode Likely orthostatic hypotension Will hold off on his antihypertensives from home Started on IV fluids; continue Orthostatics every shift PT OT eval Elevated troponin likely demand ischemia Denies chest pain or discomfort High-sensitivity troponin of 101 on presentation; increased to 178 EKG shows atrial paced rhythm with prolonged AV conduction Trend troponin Obtain echocardiogram Cardiology consulted; appreciate recommendation Acute kidney injury Likely prerenal Continue IV fluids Avoid nephrotoxic agent Hold losartan COPD duonebs BID and hypertonic saline on doxycyline for bronchitis Continue home meds. I have reviewed the advanced practitioner's documentation, and I agree with, and take responsibility for the plan of care I spent a total of 30 minutes coordinating, documenting, and providing care for this patient excluding time spent in the performance of separately billed services. All of the aforementioned completed while collaborating with the assigned advanced practitioner for a full treatment plan
[2024-01-21] MEDS ORDERED: ALBUT/IPRATROP 3MG/0.5MG NEB 3 ML VIAL NEB SCH (19:00)
[2024-01-21] MEDS: LACTATED RINGER'S 1,000 ML IV SCH (19:37)
[2024-01-21] MEDS: SODIUM CHLOR 7% 4 ML NEB NEB SCH (19:48)
[2024-01-21] MEDS: LEVALBUTEROL HCL 0.63 MG/3 ML NEB NEB PRN (19:48)
[2024-01-21] MEDS ORDERED: ONDANSETRON INJ 2 MG/ML 2 ML VIAL IV PRN (20:38)
[2024-01-21] MEDS ORDERED: POLYETHYLENE (MIRALAX) 17 GM PACK PO PRN (20:38)
[2024-01-21] MEDS ORDERED: SENNA 8.6 MG TAB PO PRN (20:38)
[2024-01-21] MEDS ORDERED: NITROGLYCERIN SL 0.4 MG/TAB TAB SL PRN (20:38)
[2024-01-21] MEDS: SODIUM CHLORIDE 0.65% NA SOLN 45 ML (OCEAN) SCH (21:45)
[2024-01-21] MEDS: DOXYCYCLINE HYCLATE 100 MG CAP PO SCH (21:46)
[2024-01-21] MEDS: GABAPENTIN 300 MG CAP PO SCH (21:46)
[2024-01-21] MEDS: DULoxetine HCL 30 MG CAP PO SCH (21:47)
[2024-01-21] MEDS: AMITRIPTYLINE HCL 50 MG TAB PO SCH (21:47)
[2024-01-21] MEDS: guaiFENesin 600 MG TABCR PO SCH (21:47)
[2024-01-21] MEDS: DULoxetine HCL 60 MG CAP PO SCH (21:47)
--- OUTSIDE RECORDS SUMMARY | 2024-01-21 23:11 | External Medical Summary | Summary of Care ---
Author Name Unknown Organization [facility] Address [address] [place] [address] Phone [phone] Care Team Providers Care Trial Justice Name Role Phone Guera Jay MD Primary Care Prov ider Reason for Visit * Reason Comments Medication Refill Encounter Details Date Type Department Care Team (Late st Contact Info) Description 01/03/2024 Refill Family [address] [phone] Guera Jay MD [address] [place] [phone] Allergies Active Allergy Reactions Criticality Noted Date Comments Adhesive Tape Other (Please comment) Low 03/09/2009 Affected area blisters. Latex 11/23/2014 Patient denies this allergy documented as of this encounter (statuses as of 01/16/2024) Medications Medication Sig Dispensed Refills Start Date End Date Status Acetaminophen 500 MG Oral Tablet Take 2 Tablets by mouth 3 times a day as needed for Pain, Moderate or Pain, Severe. Active Flutter DeviceIndications: Bronchiectasis without complication (HCC) Use for 10 min twice daily. pretreat with albuteorl. 1 Each 04/25/2022 Active Saline Nasal [place] 0.65 % Nasal Solution ([place]) Administer 1 [place] into nostril in the morning and 1 [place] at noon and 1 [place] in the evening and 1 [place] before bedtime. 30 mL 11/15/2022 Active Senna [...] OTHER MEDICATIONS 100 Tablet 3 11/22/2022 Active Amitriptyline HCl 25 MG Oral Tablet [...] 75 MG Oral Tablet (pLAVix)Indication s:Atherosclerosis of [place] coronary artery of [place] heart with angina pectoris (HCC) Take 1 [...] the morning. 90 Tablet 3 12/10/2023 Active DULoxetine HCl 30 MG Oral Capsule Delayed Release Particles (Cymbalta) Take 1 capsule by mouth every evening 90 Capsule 01/06/2024 Active Ipratropium-Albute rol 0.5-2.5 (3) MG/3ML Inhalation Solution (Duoneb) INHALE 1 VIAL VIA NEBULERS EVERY 6 HOURS NEEDED FOR SHORTNESS OF BREATH 360 mL 5 11/22/2022 4 Discontinue d(Refill) DULoxetine HCl 30 MG Oral Capsule Delayed Release Particles (Cymbalta) Take 1 capsule by mouth every evening 90 Capsule 2 11/22/2022 4 Discontinue d(Refill) Gabapentin 300 MG Oral Capsule (Neurontin) TAKE ONE CAPSULE BY MOUTH THREE TIMES A DAY IN THE MORNING, AT NOON AND BEFORE BEDTIME 90 Capsule 5 05/27/2023 4 Discontinue d(Refill) documented as of this encounter (statuses as of 01/16/2024) Active Problems Problem Noted Date Diagnosed Date [...] and pelvis placed. Pt to use OSH [facility] in [place]. Scheduling to fax orders. COPD, group B, [...] -albuterol rx sent to [facility] -Use Advair BID -has rescue kit -CXR, exercise pulse ox -f/u t/c and home visit next week -needs pulm f/u Mediastinal adenopathy 04/25/2022 Chronic back pain greater than 3 months duration 04/17/2022 Hx of actinic keratosis 10/24/2020 VALDOVINOS (dyspnea on exertion) 08/17/2020 Last Assessment & Plan: Per walk test in June 2022, patient did not require oxygen. Cervical spinal stenosis 01/27/2020 Atherosclerosis of [place] co ronary artery of [place] heart with stable angina pectoris 10/02/2019 Overview: [...] replacement 1984 and 2006. Pain managed through [facility] pain clinic. 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 coronary artery of [place] heart without angina pectoris 09/19/2017 10/31/2021 Overview: [...] MEDICATION USE AGREEMENT 09/2010 Overview: Dr Parra [facility] Beta-hakan intolerance documented as of this encounter (statuses as of 01/16/2024) Immunizations Name Administration Dates Next Due COVID-19 [...] encounter Miscellaneous Notes * Telephone Encounter - Sadia Mills RN - 01/16/2024 3:01 PM EDT Appointment made for 01/27/24 * Telephone Encounter - Danna Duran MD - 01/06/2024 7:33 AM EDTSigned Prescriptions: Disp Refills DULoxetine HCl 30 MG Oral Capsule Delayed *90 Cap*0 Sig: Take 1 capsule by mouth every eveningAuthorizing Provider: DANNA DURAN * Telephone Encounter - Danna Duran MD - 01/06/2024 7:32 AM EDT Needs appt. Last seen 12/07/2022 documented in this encounter Plan of Treatment Upcoming Encounters Date Type Department Care Team (Late st Contact Info) Description 01/21/2024 2:30 PM EDT Office Visit Cardiology, [facility] [address] [place] [address] Varsha Banerjee PA-C [address] [place] [address] 01/27/2024 11:20 AM EDT Office Visit Family Medicine [address] [place] [phone] Angeles Dunne MD [address] [place] [address] [place] [phone] 04/06/2024 3:00 PM EDT Nurse Only Ancillary [address] [place] [phone] Gamal, Nurse Annual [address] [place] [address] 06/22/2024 1:40 PM EST Office Visit Dermatology [address] [place] [address] Nia Hong PA-C [address] [place] [address] [place] [address] 12/21/2024 9:00 AM EDT Office Visit Family Medicine [address] [place] [phone] Guera Jay MD [address] [place] [address] [place] [phone] Health Maintenance Due Date Last Done Comments Alpha-1 Antitrypsin 02/06/1963 Depression Monitoring 01/23/2020 01/22/2019 Colonoscopy 08/30/2021 08/30/2016 COVID-19 Vaccine (2022- season) 2023 10/13/2020, 09/22/2020 *CXR OR CT FOR COPD EVER 01/05/2024 TSH 01/10/2024 01/09/2023, 12/22, 11/14/2022, Additional history exists Influenza Vaccine (FLU shot) (#1) 2024 06/19/2023, 04/17/2022, 04/26/2021, Additional history exists Mendez's Esophagus Surveilance 06/02/2024 [...] Discontinued 07/27/2021 Zoster Vaccines Completed 12/19/2021, 08/19/2021 HPV (Gardasil) Vaccine Aged Out No lo nger eligible based on patient's age to complete this topic Hepatitis B Vaccine Aged Out No longe r eligible based on patient's age to complete this topic MENINGOCOCCAL (MENACTRA/MENVEO) Aged Out No longer eligible based on patient's age to complete this topic documented as of this encounter Medical Devices Implanted Type Area Spool Fixer Device Identifier Shelf Expiration Date Model / Serial / Lot Femoral Nail Retrograde Implanted:Qty: 1 on 10/04/2022 by Donell Landry Jr., MD at [place] [facility] [place] Left: Knee ANGEL 02/18/2031 [id number] / / [id number] Screw Nlk A3 Ti 4.5x36mm - [id number] Implanted:Qty: 1 on 10/04/2022 by Donell Landry Jr., MD at [place] [facility] [place] ANGEL : TRAUMA [id number] / / 5.0 Compression Plate Implanted:Qty: 1 on 10/04/2022 by Donell Landry Jr., MD at OR [facility] [place] ANGEL [id number] / / Screw T2 Alpha Adv Lck 5x85 - [id number] Implanted:Qty: 1 on 10/04/2022 by Donell Landry Jr., MD at OR [facility] [place] Left: Knee ANGEL : TRAUMA 07/24/2031 2361-5085S / / [id number] Screw T2 Alpha Adv Lck 5x65 - [id number] Implanted:Qty: 1 on 10/04/2022 by Donell Landry Jr., MD at OR [facility] [place] Left: Knee ANGEL : TRAUMA 07/24/2032 2361-5065S / / [id number] Screw T2 Alpha Adv Lck 5x85 - [id number] Implanted:Qty: 1 on 10/04/2022 by Donell Landry Jr., MD at OR [facility] [place] Left: Knee ANGEL : TRAUMA 02/22/2032 2361-5085S / / [id number] Screw T2 Alpha Lock 5x35mm - [id number] Implanted:Qty: 1 on 10/04/2022 by Donell Landry Jr., MD at OR [facility] [place] Left: Knee ANGEL : TRAUMA 07/24/2032 2360-5035S / / [id number] Screw Gina Lk A3 Ti 5x12mm - [id number] Implanted:Qty: 1 on 10/04/2022 by Donell Landry Jr., MD at OR [facility] [place] ANGEL : TRAUMA [id number] / / Screw Gina Lk A3 Ti 5x16mm - [id number] Implanted:Qty: 1 on 10/04/2022 by Donell Landry Jr., MD at OR [facility] [place] ANGEL : TRAUMA [id number] / / Washer For 2.4mm/2.7mm/3.5m m - [id number] Implanted:Qty: 2 on 10/04/2022 by Donell Landry Jr., MD at [place] [facility] [place] ANGEL : TRAUMA [id number] / / Screw Nlk V2 T10 Ft 3.5x28mm - [id number] Implanted:Qty: 2 on 10/04/2022 by Donell Landry Jr., MD at OR [facility] [place] ANGEL : TRAUMA [id number] / / documented as of this encounter Advance Directives Documents on File Type Date Recorded Patient Nurse Educator Expl anation Advance Directives and Living Will 10/03/2022 ADVANCE DIRECTIVE / LIVING WILL Power of Supervisor Metal [employer]ating 10/03/2022 POWER OF A TTORNEY * Full [...] Power of Attor mel? No Care Teams Trial Justice Relationship Specialty Start Date End Date Guera Jay MD [address] [place] [address] [place] [phone] PCP - General Family Medicine 06/19/23 documented as of this encounter
--- OUTSIDE RECORDS SUMMARY | 2024-01-21 23:12 | External Medical Summary | Summary of Care ---
Author Name Unknown Organization [facility] Address [address] [place] [address] Phone [phone] Care Team Providers Care Pharmacy Informatics Manager Name Role Phone Guera Jay MD Primary Care Prov ider Reason for Visit * Reason Comments Medication Refill Encounter Details Date Type Department Care Team (Late st Contact Info) Description 01/03/2024 [facility]ill [phone] Guera Jay MD [address] [place] [address] [place] [phone] Allergies Active Allergy Reactions Criticality Noted Date Comments Adhesive Tape Other (Please comment) Low 03/09/2009 Affected area blisters. Latex 11/23/2014 Patient denies this allergy documented as of this encounter (statuses as of 01/06/2024) Medications Medication Sig Dispensed Refills Start Date End Date Status Acetaminophen 500 MG Oral Tablet Take 2 Tablets by mouth 3 times a day as needed for Pain, Moderate or Pain, Severe. Active Flutter DeviceIndications :Bronchiectasis without complication (HCC) Use for 10 min twice daily. pretreat with albuteorl. 1 Each 04/25/2022 Active Saline Nasal [place] 0.65 % Nasal Solution ([place]) Administer 1 [place] into nostril in the morning and 1 [place] at noon and 1 [place] in the evening and 1 [place] before bedtime. 30 mL 11/15/2022 Active Senna 8.6 MG Oral Tablet Take 2 Tablets by mouth in the morning and 2 Tablets before bedtime. 60 Tablet 1 11/15/2022 Active Anoro Ellipta 62.5-25 MCG/ACT Inhalation Aerosol Powder Breath Activated (umeclidinium-jens anterol) Inhale 1 Puff by mouth in the [...] Active Nitroglycerin 0.4 MG Sublingual Tablet Sublingual (Nitrostat)Indica tions:Unstable angina (HCC) TAKE 1 TABLET BY MOUTH EVERY 5 MINUTES NEEDED WITH CHEST PAIN UP TO 3 DOSES IN 15 MINUTES 25 Tablet 11 07/22/2023 Active Tamsulosin HCl 0.4 MG Oral Capsule (Flomax)Indicatio ns:BPH with obstruction/lower urinary tract symptoms Take 2 Capsules by mouth in the morning. 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 90 Tablet 3 12/10/2023 Active Finasteride 5 MG Oral Tablet (Proscar)Indicati ons:BPH without obstruction/lower urinary tract symptoms,Urge incontinence Take 1 Tablet by mouth in the morning. 90 Tablet 3 12/10/2023 Active Atorvastatin Calcium 80 MG Oral Tablet (Lipitor)Indicati ons:Dyslipidemia, goal LDL below 100 Take 1 Tablet by mouth in the morning. 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 90 Tablet 3 12/10/2023 Active DULoxetine HCl 30 MG Oral Capsule Delayed Release Particles (Cymbalta) Take 1 capsule by mouth every evening 90 Capsule 01/06/2024 Active Gabapentin 300 MG Oral Capsule (Neurontin) TAKE ONE CAPSULE BY MOUTH THREE TIMES A DAY IN THE MORNING, AT NOON AND BEFORE BEDTIME 270 Capsule 1 01/06/2024 Active Gabapentin 300 MG Oral Capsule (Neurontin) TAKE ONE CAPSULE BY MOUTH THREE TIMES A DAY IN THE MORNING, AT NOON AND BEFORE BEDTIME 90 Capsule 5 05/27/2023 4 Discontinue d(Refill) Gabapentin 300 MG Oral Capsule (Neurontin) TAKE ONE CAPSULE BY MOUTH THREE TIMES A DAY IN THE MORNING, AT NOON AND BEFORE BEDTIME 90 Capsule 1 01/06/2024 4 Discontinue d(Refill) documented as of this encounter (statuses as of 01/06/2024) Active Problems Problem Noted Date Diagnosed Date [...] and pelvis placed. Pt to use OSH [facility] in [place]. Scheduling to fax orders. COPD, group B, [...] meds at length -albuterol rx sent to [facility] -Use Advair BID -has rescue kit [...] oxygen. Cervical spinal stenosis 01/27/2020 Atherosclerosis of [place] co ronary artery of [place] heart with stable angina pectoris 10/02/2019 [...] and 2006. Pain managed through [facility] pain clinic. 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 12/22 Overview: CO-M2 [place] Last Assessment & Plan: Follows with GI [...] as of this encounter (statuses as of 01/06/2024) Resolved Problems Problem Noted Date Diagnosed Date [...] Medication Regimen o Class D - Inhaled Bnumikdnmsfoct-VDWT-KFTB Combination Inhaler (Abdelrahman) Exacerbation Mgt: o Rescue Kit in place [...] 01/22/2019 07/29/2020 Coronary artery disease invo lving [place] coronary artery of [place] heart without angina pectoris 09/19/2017 10/31/2021 [...] AGREEMENT 09/2010 Overview: Dr Parra [facility] Beta-hakan intolerance documented as of this encounter (statuses as of 01/06/2024) Immunizations Name Administration Dates Next Due COVID-19 [...] Miscellaneous Notes * Telephone Encounter - Guera Jay MD - 01/06/2024 2:46 PM EDT Signed Prescriptions: Disp Refills Gabapentin 300 MG Oral Capsule (Neurontin) 270 Ca*1 Sig: TAKE ONE CAPSULE BY MOUTH THREE TIMES A DAY IN THE MORNING, AT NOON AND BEFORE BEDTIME Authorizing Provider: UGERA JAY * Telephone Encounter - Nel Alston RN - 01/06/2024 11:19 AM EDTPending Prescriptions: Disp Refills Gabapentin 300 MG Oral Capsule (Neurontin) 270 Ca*1 Sig: TAKE ONE CAPSULE BY MOUTH THREE TIMES A DAY IN THE MORNING, AT NOON AND BEFORE BEDTIME Signed Prescriptions: Disp Refills Gabapentin 300 MG Oral Capsule (Neurontin) 90 Cap*1 Sig: TAKE ONE CAPSULE BY MOUTH THREE TIMES A DAY IN THE MORNING, AT NOON AND BEFORE BEDTIME Authorizing Provider: DANNA DURAN * Telephone Encounter - Indy Berrios, brick and block mason - 01/06/2024 9:02 AM EDT [facility] mail order pharmacy calling to request a 90 day supply of the below Rx. Med pended as such. Please review and sign if appropriate. Did you pend patient's preferred pharmacy and medication before forwarding?yes Pharmacy: [facility] Pending Prescriptions: Disp Refills Gabapentin 300 MG Oral Capsule (Neurontin)270 Ca*1 Sig: TAKE ONE CAPSULE BY MOUTH THREE TIMES A DAY IN THE MORNING, AT NOON AND BEFORE BEDTIME Signed Prescriptions: Disp Refills Gabapentin 300 MG Oral Capsule (Neurontin) 90 Cap*1 Sig: TAKE ONE CAPSULE BY MOUTH THREE TIMES A DAY IN THE MORNING, AT NOON AND BEFORE BEDTIME Authorizing Provider: DANNA DURAN Last Visit: Visit date not found (in office), 07/17/2022 (telemedicine) Next Visit: Visit date not found If no future appointments scheduled, and last appointment is greater than a year ago, please schedule patient for a follow-up appointment Last date the medication was ordered: 01/06/24 Is this request for a controlled substance?No [...] found in Results Review. Patient Phone Numbers [facility] [phone] Labs: Lab Results Component Value Date/Time CREAT [...] 12/03/2016 11:27 AM * Telephone Encounter - Danna Duran MD - 01/06/2024 7:33 AM EDTSigned Prescriptions: Disp Refills Gabapentin 300 MG Oral Capsule (Neurontin) 90 Cap*1 Sig: TAKE ONE CAPSULE BY MOUTH THREE TIMES A DAY IN THE MORNING, AT NOON AND BEFORE BEDTIMEAuthorizing Provider:DANNA DURAN documented in this encounter Plan of Treatment Upcoming Encounters Date Type Department Care Team (Late st Contact Info) Description 01/21/2024 2:30 PM EDT Office Visit Cardiology, [facility] [address] [address] Varsha Banerjee PA-C [address] [place] [address] 06/22/2024 1:40 PM EST Office Visit Dermatology [address] [place] [address] Nia Hong PA-C [address] [place] [address] [place] [phone] Health Maintenance Due Date Last Done Comments Alpha-1 Antitrypsin 02/06/1963 Depression Monitoring 01/23/2020 01/22/2019 Colonoscopy 08/30/2021 08/30/2016 COVID-19 Vaccine ( season) 2023 10/13/2020, 09/22/2020 *CXR OR CT [...] this encounter Medical Devices Implanted Type Area Senior Examiner Device Identifier Shelf Expiration Date Model / Serial / Lot Femoral Nail Retrograde Implanted:Qty: 1 on 10/04/2022 by Donell Landry Jr., MD at [place] [facility] [place] Left: Knee ANGEL 02/18/2031 2339-1128S / / [id number] Screw Nlk A3 Ti 4.5x36mm - [id number] Implanted:Qty: 1 on 10/04/2022 by Donell Landry Jr., MD at [place] [facility] [place] ANGEL : TRAUMA [id number] / / 5.0 Compression Plate Implanted:Qty: 1 on 10/04/2022 by Donell Landry Jr., MD at OR [facility] [place] ANGEL [id number] / / Screw T2 Alpha Adv Lck 5x85 - [id number] Implanted:Qty: 1 on 10/04/2022 by Donell Landry Jr., MD at OR [facility] [place] Left: Knee ANGEL : TRAUMA 07/24/2031 2361-5085S / / [id number] Screw T2 Alpha Adv Lck 5x65 - [id number] Implanted:Qty: 1 on 10/04/2022 by Donell Landry Jr., MD at OR [facility] [place] Left: Knee ANGEL : TRAUMA 07/24/2032 2361-5065S / / [id number] Screw T2 Alpha Adv Lck 5x85 - [id number] Implanted:Qty: 1 on 10/04/2022 by Donell Landry Jr., MD at OR [facility] [place] Left: Knee ANGEL : TRAUMA 02/22/2032 2361-5085S / / [id number] Screw T2 Alpha Lock 5x35mm - [id number] Implanted:Qty: 1 on 10/04/2022 by Donell Landry Jr., MD at OR [facility] [place] Left: Knee ANGEL : TRAUMA 07/24/2032 2360-5035S / / [id number] Screw Gina Lk A3 Ti 5x12mm - [id number] Implanted:Qty: 1 on 10/04/2022 by Donell Landry Jr., MD at OR [facility] [place] ANGEL : TRAUMA [id number] / / Screw Gina Lk A3 Ti 5x16mm - [id number] Implanted:Qty: 1 on 10/04/2022 by Donell Landry Jr., MD at OR [facility] [place] ANGEL : TRAUMA [id number] / / Washer For 2.4mm/2.7mm/3.5m m - [id number] Implanted:Qty: 2 on 10/04/2022 by Donell Landry Jr., MD at [place] [facility] [place] ANGEL : TRAUMA [id number] / / Screw Nlk V2 T10 Ft 3.5x28mm - [id number] Implanted:Qty: 2 on 10/04/2022 by Donell Landry Jr., MD at OR [facility] [place] ANGEL : TRAUMA [id number] / / documented as of this encounter Advance Directives Documents on File Type Date Recorded Patient Community Outreach Director Expl anation Advance Directives and Living Will 10/03/2022 ADVANCE DIRECTIVE / LIVING WILL Power of Sales And Business Development Manager 10/03/2022 POWER OF A TTORNEY * Full [...] Power of Attor mel? No Care Teams Pharmacy Informatics Manager Relationship Specialty Start Date End Date Guera Jay MD [address] [place] [address] [place] [phone] PCP - General Family Medicine 06/19/23 documented as of this encounter
--- OUTSIDE RECORDS SUMMARY | 2024-01-21 23:12 | External Medical Summary | Summary of Care ---
Author Name Unknown Organization [facility] Address [address] [place] [address] Phone [phone] Care Team Providers Care Bottle Packing Machine Cleaner Name Role Phone Guera Jay MD Primary Care Prov ider Reason for Visit * Reason Onset Date Comments Appointment 01/14/2024 Encounter Details Date Type Department Care Team (Late st Contact Info) Description 01/14/2024 Telephone Family [address] [phone] Guera Jay MD [address] [place], [place] [address] [address] Appointment Allergies Active Allergy Reactions Criticality Noted Date [...] albuteorl. 1 Each 04/25/2022 Active Saline Nasal [place] 0.65 % Nasal Solution ([place]) Administer 1 [place] into nostril in the morning and 1 [place] at noon and 1 [place] in the evening and 1 [place] before bedtime. 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 Pt to use [facility] in [place]. Scheduling to fax orders. COPD, group B, [...] meds at length -albuterol rx sent to [facility] -Use Advair BID -has rescue kit [...] oxygen. Cervical spinal stenosis 01/27/2020 Atherosclerosis of [place] co ronary artery of [place] heart with stable angina pectoris 10/02/2019 Overview: [...] esophagus determined by endoscopy 12/22 Overview: CO-M2 [place] Last Assessment & Plan: Follows with GI [...] Medication Regimen o Class D - Inhaled Ymrhjevjyhecwb-WZAS-OONC Combination Inhaler (Trellegy) Exacerbation Mgt: o Rescue [...] 01/22/2019 07/29/2020 Coronary artery disease invo lving [place] coronary artery of [place] heart without angina pectoris 09/19/2017 10/31/2021 Overview: W/ angina on PL [place] (actinic keratosis) 01/23/201710/24 Bradycardia 06/14/2016 09/19/2017 Essential hypertension with goal blood pressure less than 140/90 10/31/2015 07/04/2022 Last Assessment & Plan: bp stable-not on meds Monitor Chronic cholecystitis 03/10/20092010 ACTIVE CASE MANAGEMENT 03/07/200904/10 Overview: Chela Morris, RN [phone] Other specified hypothyroidism 03/01/2008 08/16/2016 Overview: TSH [...] Encounter - Sadia Mills RN - 01/16/2024 2:49 PM EDT I did speak to daughter yony and she is concerned, patient was hospitalized at [facility] for sepsis,COPDexacerbation, CAD, JOHN, Elevated troponin, nultifocal pneumonia, Anemia and BPH. he was never seen for his hospital follow up, and then Guera Escudero MD canceled the appointment on 01/21. Patient family is requesting to be seen by a physician. , he has seen Dr. Dunne before and would be fine with that. Appointment offered. * Telephone Encounter - Nel Alston RN - 01/16/2024 2:32 PM EDT Ok Just offer the first available she has * Telephone Encounter - Bianka Jeff OSA - 01/16/2024 12:26 PM EDT I called Gwyn to get him rescheduled for his appt, I had nothing soon to offer with Dr. Escudero, so I offered him Leah Campuzano or Paige Lang, and he said no if he can't see his own doctorhe didn't want an appt. * Telephone Encounter - Gera Ruff LPN - 01/16/2024 11:20 AM EDT No apt near 's time on that day Already past Hospital Discharge scheduling time frame Please contact patient and assist in apt * Telephone Encounter - Shahnaz Sarmiento OSA - 01/14/2024 1:56 PM EDT Patients daughter yony called states that patient was supposed to be seen by dr michael on 01/21/2024 and they received a letter stating that dr michael will not be in that day. Patient was inpatient in the hospital discharged 12/23/2023. Daughter states that patients has an appt on 01/21/2024 at 1:20, asking if both of them could come in at that time. States that patient has not been seen in about a year and is normally seen every 6 mo. Please call patient to advise. [phone] best number please leave message, not good service at the residence. documented in this encounter Plan of Treatment Upcoming Encounters Date Type Department Care Team (Late st Contact Info) Description 01/21/2024 2:30 PM EDT Office Visit Cardiology, [facility] [address] [place] [address] Varsha Banerjee PA-C [address] [place] [address] 01/27/2024 11:20 AM EDT Office Visit Family [address] [place] [phone] Angeles Dunne MD [address] [place] [address] [place] [address] 04/06/2024 3:00 PM EDT Nurse Only Ancillary [address] [place] [address] [place], Nurse Annual Wellness [address] [place] [address] [place] [address] 06/22/2024 1:40 PM EST Office Visit Dermatology [address] [place] [address] Nia Hong PA-C [address] [place] [address] [place] [address] 12/21/2024 9:00 AM EDT Office Visit Family [address] [place] [phone] Guera Jay MD [address] [place] [address] [place] [address] Health Maintenance Due Date Last Done Comments [...] this encounter Medical Devices Implanted Type Area Horse Stud Manager Device Identifier Shelf Expiration Date Model / Serial / Lot Femoral Nail Retrograde Implanted:Qty: 1 on 10/04/2022 by Donell Landry Jr., MD at OR [facility] [place] Left: Knee ANGEL 02/18/2031 2339-1128S / / [id number] Screw Nlk A3 Ti 4.5x36mm - [id number] Implanted:Qty: 1 on 10/04/2022 by Donell Landry Jr., MD at OR [facility] [place] ANGEL : TRAUMA [id number] / / 5.0 Compression Plate Implanted:Qty: 1 on 10/04/2022 by Donell Landry Jr., MD at OR [facility] [place] ANGEL [id number] / / Screw T2 Alpha Adv Lck 5x85 - [id number] Implanted:Qty: 1 on 10/04/2022 by Donell Landry Jr., MD at OR [facility] [place] Left: Knee ANGEL : TRAUMA 07/24/2031 2361-5085S / / [id number] Screw T2 Alpha Adv Lck 5x65 - [id number] Implanted:Qty: 1 on 10/04/2022 by Donell Landry Jr., MD at OR [facility] [place] Left: Knee ANGEL : TRAUMA 07/24/2032 2361-5065S / / [id number] Screw T2 Alpha Adv Lck 5x85 - [id number] Implanted:Qty: 1 on 10/04/2022 by Donell Landry Jr., MD at OR [facility] [place] Left: Knee ANGEL : TRAUMA 02/22/2032 2361-5085S / / [id number] Screw T2 Alpha Lock 5x35mm - [id number] Implanted:Qty: 1 on 10/04/2022 by Donell Landry Jr., MD at OR [facility] [place] Left: Knee ANGEL : TRAUMA 07/24/2032 2360-5035S / / [id number] Screw Gina Lk A3 Ti 5x12mm - [id number] Implanted:Qty: 1 on 10/04/2022 by Donell Landry Jr., MD at OR [facility] [place] ANGEL : TRAUMA [id number] / / Screw Gina Lk A3 Ti 5x16mm - [id number] Implanted:Qty: 1 on 10/04/2022 by Donell Landry Jr., MD at OR [facility] [place] ANGEL : TRAUMA [id number] / / Washer For 2.4mm/2.7mm/3.5m m - [id number] Implanted:Qty: 2 on 10/04/2022 by Donell Landry Jr., MD at OR [facility] [place] ANGEL : TRAUMA [id number] / / Screw Nlk V2 T10 Ft 3.5x28mm - [id number] Implanted:Qty: 2 on 10/04/2022 by Donell Landry Jr., MD at OR [facility] [place] ANGEL : TRAUMA [id number] / / documented as of this encounter Advance Directives Documents on File Type Date Recorded Patient Category Consultant Expl anation Advance Directives and Living Will 10/03/2022 ADVANCE DIRECTIVE / LIVING WILL Power of Asbestos Brake Lining Finisher 10/03/2022 POWER OF A TTORNEY * Full [...] Power of Attor mel? No Care Teams Bottle Packing Machine Cleaner Relationship Specialty Start Date End Date Guera Jay MD [address] [place] [address] [place] [address] PCP - General Family Medicine 06/19/23 documented as of this encounter
--- OUTSIDE RECORDS SUMMARY | 2024-01-21 23:12 | External Medical Summary | Summary of Care ---
Author Name Unknown Organization [facility] Address [address] [place] [address] Phone [phone] Care Team Providers Care Tool Dispatcher Name Role Phone Guera Jay MD Primary Care Prov ider Reason for Visit * Reason Onset Date Comments Hospital Follow-Up 12/20/2023 Encounter Details Date Type Department Care Team (Late st Contact Info) Description 12/20/2023 Telephone Cardiology, [facility] [address] [facility] [place] [address] Donell Bangura, [address] [facility] [place] [address] Hospital Follow-Up Allergies Active Allergy Reactions Criticality Noted Date Comments Adhesive Tape Other (Please comment) Low 03/09/2009 Affected area blisters. Latex 11/23/2014 Patient denies this allergy documented as of this encounter (statuses as of 12/31/2023) Medications Medication Sig Dispensed Refills Start Date End Date Status Acetaminophen 500 MG Oral Tablet Take 2 Tablets by mouth 3 times a day as needed for Pain, Moderate or Pain, Severe. Active Flutter DeviceIndications:B ronchiectasis without complication (HCC) Use for 10 min twice daily. pretreat with albuteorl. 1 Each 04/25/2022 Active Saline Nasal [place] 0.65 % Nasal Solution ([place]) Administer 1 [place] into nostril in the morning and 1 [place] at noon and 1 [place] in the evening and 1 [place] before bedtime. 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 90 Tablet 3 12/10/2023 Active Finasteride 5 MG Oral Tablet (Proscar)Indication s:BPH without obstruction/lower urinary tract symptoms,Urge incontinence Take 1 Tablet by mouth in the morning. 90 Tablet 3 12/10/2023 Active Atorvastatin Calcium 80 MG Oral Tablet (Lipitor)Indication s:Dyslipidemia, goal LDL below 100 Take 1 Tablet by mouth in the morning. 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 90 Tablet 3 12/10/2023 Active documented as of this encounter (statuses as of 12/31/2023) Active Problems Problem Noted Date Diagnosed Date [...] abdomen [facility] [place] Scheduling to fax orders. COPD, group B, [...] have every day") Medication Regimen o Other: anoro adv Self-Management plan o High frequency nebulizer treatments [...] at length -albuterol rx sent to [facility] -Use Advair BID -has rescue kit [...] oxygen. Cervical spinal stenosis 01/27/2020 Atherosclerosis of [place] co ronary artery of beaver heart with stable angina pectoris 10/02/2019 Overview: [...] replacement 1984 and 2006. Pain managed through [facility] pain clinic. 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 o Used rescue kit in the past month: No o Required IM or IV steroids (Solumedrol) since last visit: No Current exacerbation. Rescue kit initiated. Follow-up scheduled. [facility] 05/24/2022 07/18/2022 Overview: HTN [...] 01/22/2019 07/29/2020 Coronary artery disease invo lving [place] coronary artery of [place] heart without angina pectoris 09/19/2017 10/31/2021 Overview: W/ angina on PL [place] (actinic keratosis) 01/23/201710/24 Bradycardia 06/14/2016 09/19/2017 Essential hypertension with goal blood pressure less than 140/90 10/31/2015 07/04/2022 Last Assessment & Plan: bp stable-not on meds Monitor Chronic cholecystitis 03/10/20092010 ACTIVE CASE MANAGEMENT 03/07/200904/10 Overview: Chela Morris, RN [phone] Other specified hypothyroidism 03/01/2008 08/16/2016 Overview: [...] MEDICATION USE AGREEMENT 09/2010 Overview: Dr Parra [facility] Beta-hakan intolerance documented as of this encounter (statuses as of 12/31/2023) Immunizations Name Administration Dates Next Due COVID-19 mRNA, LNP-s, No Pre serve, 2-Dose Series (xkoto) 10/13/2020,09/22/2020 Pneumococcal Conjugate Vacc, 13 Valent (Prevnar) [...] encounter Miscellaneous Notes * Telephone Encounter - Andrei Shepard OSA - 12/31/2023 9:30 AM EDT Sent patient a letter on 12/31/23 * Telephone Encounter - Andrei Shepard OSA - 12/27/2023 10:04 AM EDT LM for patient to call back to verify appt. * Telephone Encounter - Andrei Shepard OSA - 12/23/2023 10:30 AM EDT LM for patient to call back to verify the appt. * Telephone Encounter - Andrei Shepard OSA - 12/23/2023 7:51 AM EDT Patient has been scheduled with Varsha Banerjee on: Saturday Arrive by 2:15 PM Appt at 2:30 PM (30 min) * Telephone Encounter - Donell Bangura DO - 12/20/2023 4:24 PM EDT Please arrange hospital follow up visit. Pt with h/o CAD, pacemaker. Last seen by Dr Merritt in 2022. Please try to find follow up visit , any provider , within a month . Also needs to reestablish with pacemaker clinic. Had device check in hospital , generator longevity 2.5 years. Arrangements have been made for him to have a home monitor for home Medtr[employer] pacemaker checks. Donell Bangura DO documented in this encounter Plan of Treatment Upcoming Encounters Date Type Department Care Team (Late st Contact Info) Description 01/21/2024 2:30 PM EDT Office Visit Cardiology, [facility] [address] [facility] [place] [address] Varsha Banerjee PA-C [address] [place] [address] 06/22/2024 1:40 PM EST Office Visit Dermatology [address] [place] [address] Nia Hong PA-C [address] [place] [address] [place] [address] Health Maintenance Due Date Last Done Comments [...] this encounter Medical Devices Implanted Type Area Strawhat Inspector And Packer Device Identifier Shelf Expiration Date Model / Serial / Lot Femoral Nail Retrograde Implanted:Qty: 1 on 10/04/2022 by Donell Landry Jr., [place] [facility] [place]: Knee ANGEL 02/18/2031 2339-1128S / / [id number] Screw Nlk A3 Ti 4.5x36mm - [id number] Implanted:Qty: 1 on 10/04/2022 by Donell Landry Jr., MD at [place] [facility] ANGEL : TRAUMA [id number] / / 5.0 Compression Plate Implanted:Qty: 1 on 10/04/2022 by Donell Landry Jr., MD at [place] [facility] ANGEL [id number] / / Screw T2 Alpha Adv Lck 5x85 - [id number] Implanted:Qty: 1 on 10/04/2022 by Donell Landry Jr., MD at [place] [facility] Left: Knee ANGEL : TRAUMA 07/24/2031 2361-5085S / / [id number] Screw T2 Alpha Adv Lck 5x65 - [id number] Implanted:Qty: 1 on 10/04/2022 by Donell Landry Jr., MD at [place] [facility] Left: Knee ANGEL : TRAUMA 07/24/2032 2361-5065S / / [id number] Screw T2 Alpha Adv Lck 5x85 - [id number] Implanted:Qty: 1 on 10/04/2022 by Donell Landry Jr., MD at [place] [facility] Left: Knee ANGEL : TRAUMA 02/22/2032 2361-5085S / / [id number] Screw T2 Alpha Lock 5x35mm - [id number] Implanted:Qty: 1 on 10/04/2022 by Donell Landry Jr., MD at [place] [facility] Left: Knee ANGEL : TRAUMA 07/24/2032 2360-5035S / / [id number] Screw Gina Lk A3 Ti 5x12mm - [id number] Implanted:Qty: 1 on 10/04/2022 by Donell Landry Jr., MD at [place] [facility] ANGEL : TRAUMA [id number] / / Screw Gina Lk A3 Ti 5x16mm - [id number] Implanted:Qty: 1 on 10/04/2022 by Donell Landry Jr., MD at [place] [facility] ANGEL : TRAUMA [id number] / / Washer For 2.4mm/2.7mm/3.5m m - [id number] Implanted:Qty: 2 on 10/04/2022 by Donell Landry Jr., MD at [place] [facility] ANGEL : TRAUMA [id number] / / Screw Nlk V2 T10 Ft 3.5x28mm - [id number] Implanted:Qty: 2 on 10/04/2022 by Donell Landry Jr., MD at [place] [facility] ANGEL : TRAUMA [id number] / / documented as of this encounter Advance Directives Documents on File Type Date Recorded Patient Whiting Machine Operator Expl anation Advance Directives and Living Will 10/03/2022 ADVANCE DIRECTIVE / LIVING WILL Power of Running Instructor 10/03/2022 POWER OF A TTORNEY * Full [...] Power of Attor mel? No Care Teams Tool Dispatcher Relationship Specialty Start Date End Date Guera Jay MD [address] [place] [address] [place] [address] PCP - General Family Medicine 06/19/23 documented as of this encounter
--- OUTSIDE RECORDS SUMMARY | 2024-01-21 23:12 | External Medical Summary | Summary of Care ---
Author Name Unknown Organization [facility] Address [address] [place] [address] Phone [phone] Care Team Providers Care Manager Wastewater Name Role Phone Guera aJy MD Primary Care Prov ider Reason for Visit * Reason Onset Date Comments Appointment 01/14/2024 Encounter Details Date Type Department Care Team (Late st Contact Info) Description 01/14/2024 Telephone Family [address] [phone] Guera Jay MD [address] [place], [place] [address] [address] Appointment Allergies Active Allergy Reactions Criticality [...] albuteorl. 1 Each 04/25/2022 Active Saline Nasal [place] 0.65 % Nasal Solution ([place]) Administer 1 [place] into nostril in the morning and 1 [place] at noon and 1 [place] in the evening and 1 [place] before bedtime. 30 mL 11/15/2022 Active Senna [...] MG Oral Tablet (pLAVix)Indicatio ns:Atherosclerosi s of [place] coronary artery of [place] heart with angina pectoris (HCC) Take 1 [...] and pelvis placed. [facility] [place] Scheduling to fax orders. COPD, group B, [...] meds at length -albuterol rx sent to [facility] -Use Advair BID -has rescue kit [...] oxygen. Cervical spinal stenosis 01/27/2020 Atherosclerosis of [place] co ronary artery of [place] heart with stable angina pectoris 10/02/2019 Overview: [...] replacement 1984 and 2006. Pain managed through [facility] pain clinic. 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 12/22 Overview: CO-M2 [place] Last Assessment & Plan: Follows with GI [...] Medication Regimen o Class D - Inhaled Qqdwctfhgtivlr-TGKB-SXKI Combination Inhaler (Trellegy) Exacerbation Mgt: o Rescue [...] 01/22/2019 07/29/2020 Coronary artery disease invo lving [place] coronary artery of [place] heart without angina pectoris 09/19/2017 10/31/2021 Overview: W/ angina on PL AK (actinic keratosis) 01/23/201710/24 Bradycardia 06/14/2016 09/19/2017 Essential hypertension with goal blood pressure less than 140/90 10/31/2015 07/04/2022 Last Assessment & Plan: bp stable-not on meds Monitor Chronic cholecystitis 03/10/20092010 ACTIVE CASE MANAGEMENT 03/07/200904/10 Overview: Chela Morris, RN [phone] Other specified hypothyroidism 03/01/2008 08/16/2016 Overview: TSH [...] MEDICATION USE AGREEMENT 09/2010 Overview: Dr Parra [facility] Beta-hakan intolerance documented as of this [...] she is concerned, patient was hospitalized at [facility] for sepsis,COPDexacerbation, CAD, JOHN, Elevated troponin, [...] 6 mo. Please call patient to advise. [phone] best number please leave message, not good service at the residence. documented in this encounter Plan of Treatment Upcoming Encounters Date Type Department Care Team (Late st Contact Info) Description 01/21/2024 2:30 PM EDT Office Visit Cardiology, [facility] [address] [place] [address] Varsha Banerjee PA-C [address] [place] [address] 01/27/2024 11:20 AM EDT Office Visit Family [address] [place] [phone] Angeles Dunne MD [address] [place] [address] [place] [address] 04/06/2024 3:00 PM EDT Nurse Only Ancillary [address] [place] [address] [place], Nurse Annual Wellness [address] [place] [address] [place] [address] 06/22/2024 1:40 PM EST Office Visit Dermatology [address] [place] [address] Nia Hong PA-C [address] [place] [address] [place] [address] 12/21/2024 9:00 AM EDT Office Visit Family [address] [place] [phone] Guera Jay MD [address] [place] [address] [place] [address] Health Maintenance Due Date Last Done Comments [...] this encounter Medical Devices Implanted Type Area Stock Cutter Device Identifier Shelf Expiration Date Model / Serial / Lot Femoral Nail Retrograde Implanted:Qty: 1 on 10/04/2022 by Donell Landry Jr., MD at OR [facility] Left: Knee ANGEL 02/18/2031 2339-1128S / / [id number] Screw Nlk A3 Ti 4.5x36mm - [id number] Implanted:Qty: 1 on 10/04/2022 by Donell Landry Jr., MD at OR [facility] ANGEL : TRAUMA [id number] / / 5.0 Compression Plate Implanted:Qty: 1 on 10/04/2022 by Donell Landry Jr., MD at OR [facility] ANGEL [id number] / / Screw T2 Alpha Adv Lck 5x85 - [id number] Implanted:Qty: 1 on 10/04/2022 by Donell Landry Jr., MD at OR [facility] Left: Knee ANGEL : TRAUMA 07/24/2031 2361-5085S / / [id number] Screw T2 Alpha Adv Lck 5x65 - [id number] Implanted:Qty: 1 on 10/04/2022 by Donell Landry Jr., MD at OR [facility] Left: Knee ANGEL : TRAUMA 07/24/2032 2361-5065S / / [id number] Screw T2 Alpha Adv Lck 5x85 - [id number] Implanted:Qty: 1 on 10/04/2022 by Donell Landry Jr., MD at OR [facility] Left: Knee ANGEL : TRAUMA 02/22/2032 2361-5085S / / [id number] Screw T2 Alpha Lock 5x35mm - [id number] Implanted:Qty: 1 on 10/04/2022 by Donell Landry Jr., MD at OR [facility] Left: Knee ANGEL : TRAUMA 07/24/2032 2360-5035S / / [id number] Screw Gina Lk A3 Ti 5x12mm - [id number] Implanted:Qty: 1 on 10/04/2022 by Donell Landry Jr., MD at OR [facility] ANGEL : TRAUMA [id number] / / Screw Gina Lk A3 Ti 5x16mm - [id number] Implanted:Qty: 1 on 10/04/2022 by Donell Landry Jr., MD at OR [facility] ANGEL : TRAUMA [id number] / / Washer For 2.4mm/2.7mm/3.5m m - [id number] Implanted:Qty: 2 on 10/04/2022 by Donell Landry Jr., MD at OR [facility] ANGEL : TRAUMA [id number] / / Screw Nlk V2 T10 Ft 3.5x28mm - [id number] Implanted:Qty: 2 on 10/04/2022 by Donell Landry Jr., MD at OR [facility] ANGEL : TRAUMA [id number] / / documented as of this encounter Advance Directives Documents on File Type Date Recorded Patient Booky Expl anation Advance Directives and Living Will 10/03/2022 ADVANCE DIRECTIVE / LIVING WILL Power of Space Systems Operations Craftsman 10/03/2022 POWER OF A TTORNEY * Full [...] Power of Attor mel? No Care Teams Manager Wastewater Relationship Specialty Start Date End Date Guera Jay MD [address] [place] [address] [place] [address] PCP - General Family Medicine 06/19/23 documented as of this encounter
--- OUTSIDE RECORDS SUMMARY | 2024-01-21 23:12 | External Medical Summary | Summary of Care ---
Author Name Unknown Organization [facility] Address [address] [place] [address] Phone [phone] Care Team Providers Care Juvenile Officer Name Role Phone Guera Jay MD Primary Care Prov ider Reason for Visit * Reason Onset Date Comments Hospital Follow-Up 12/20/2023 Encounter Details Date Type Department Care Team (Late st Contact Info) Description 12/20/2023 Telephone Cardiology, [facility] [address] [facility] [place] [address] Donell Bangura, [address] [place] [address] Hospital Follow-Up Allergies Active Allergy Reactions Criticality Noted Date Comments Adhesive Tape Other (Please comment) Low 03/09/2009 Affected area blisters. Latex 11/23/2014 Patient denies this allergy documented as of this encounter (statuses as of 12/27/2023) Medications Medication Sig Dispensed Refills Start Date End Date Status Acetaminophen 500 MG Oral Tablet Take 2 Tablets by mouth 3 times a day as needed for Pain, Moderate or Pain, Severe. Active Flutter DeviceIndications:B ronchiectasis without complication (HCC) Use for 10 min twice daily. pretreat with albuteorl. 1 Each 04/25/2022 Active Saline Nasal [place] 0.65 % Nasal Solution ([place]) Administer 1 [place] into nostril in the morning and 1 Napoleon at noon and 1 [place] in the evening and 1 Napoleon before bedtime. 30 mL 11/15/2022 Active Senna [...] 75 MG Oral Tablet (pLAVix)Indications :Atherosclerosis of [place] coronary artery of [place] heart with angina pectoris (HCC) Take 1 [...] as of this encounter (statuses as of 12/27/2023) Active Problems Problem Noted Date Diagnosed Date [...] [facility] [place] Scheduling to fax orders. COPD, group B, [...] length -albuterol rx sent to [facility] -Use Advair BID -has rescue kit [...] oxygen. Cervical spinal stenosis 01/27/2020 Atherosclerosis of [place] co ronary artery of [place] heart with stable angina pectoris 10/02/2019 Overview: [...] esophagus determined by endoscopy 12/22 Overview: CO-M2 [place] Last Assessment & Plan: Follows with GI [...] as of this encounter (statuses as of 12/27/2023) Resolved Problems Problem Noted Date Diagnosed Date [...] Medication Regimen o Class D - Inhaled Vxfisvjnakwmuw-OIIV-XWAQ Combination Inhaler (Trellegy) Exacerbation Mgt: o Rescue Kit in place in Medication List: Yes. o Used rescue kit in the past month: No o Required IM or IV steroids (Solumedrol) since last visit: No Current exacerbation. Rescue kit initiated. Follow-up scheduled. [facility] 05/24/2022 07/18/2022 Overview: HTN [...] 01/22/2019 07/29/2020 Coronary artery disease invo lving [place] coronary artery of [place] heart without angina pectoris 09/19/2017 10/31/2021 Overview: W/ angina on [place] (actinic keratosis) 01/23/201710/24 Bradycardia 06/14/2016 09/19/2017 Essential hypertension with goal blood pressure less than 140/90 10/31/2015 07/04/2022 Last Assessment & Plan: bp stable-not on meds Monitor Chronic cholecystitis 03/10/20092010 ACTIVE CASE MANAGEMENT 03/07/200904/10 Overview: Chela Morris, RN [phone] Other specified hypothyroidism 03/01/2008 08/16/2016 Overview: [...] Parra [facility] Beta-hakan intolerance documented as of this encounter (statuses as of 12/27/2023) Immunizations Name Administration Dates Next Due COVID-19 mRNA, LNP-s, No Pre serve, 2-Dose Series (V[employer]le [employer]) 10/13/2020,09/22/2020 Pneumococcal Conjugate Vacc, 13 Valent (Prevnar) [...] 01/21/2024 2:30 PM EDT Office Visit Cardiology, [facility] [address] [place] [address] Varsha Banerjee PA-C [address] [place] [address] 06/22/2024 1:40 PM EST Office Visit Dermatology [address] [place] [address] Nia Hong PA-C [address] [place] [address] [place] [address] Health Maintenance Due Date Last Done Comments [...] this encounter Medical Devices Implanted Type Area Marketing Manager Health Communications Device Identifier Shelf Expiration Date Model / Serial / Lot Femoral Nail Retrograde Implanted:Qty: 1 on 10/04/2022 by Donell Landry Jr., MD at OR [facility] [place] Left: Knee ANGEL 02/18/2031 2339-1128S / / [id number] Screw Nlk A3 Ti 4.5x36mm - [id number] Implanted:Qty: 1 on 10/04/2022 by Donell Landry Jr., MD at OR [facility] [place] ANGEL : TRAUMA [id number] / / 5.0 Compression Plate Implanted:Qty: 1 on 10/04/2022 by Donell Landry Jr., MD at OR [facility] [place] ANGEL [id number] / / Screw T2 Alpha Adv Lck 5x85 - [id number] Implanted:Qty: 1 on 10/04/2022 by Donell Landry Jr., MD at OR [facility] [place] Left: Knee ANGEL : TRAUMA 07/24/2031 2361-5085S / / [id number] Screw T2 Alpha Adv Lck 5x65 - [id number] Implanted:Qty: 1 on 10/04/2022 by Donell Landry Jr., MD at OR [facility] [place] Left: Knee AGNEL : TRAUMA 07/24/2032 2361-5065S / / [id number] Screw T2 Alpha Adv Lck 5x85 - [id number] Implanted:Qty: 1 on 10/04/2022 by Donell Landry Jr., MD at OR [facility] [place] Left: Knee ANGEL : TRAUMA 02/22/2032 2361-5085S / / [id number] Screw T2 Alpha Lock 5x35mm - [id number] Implanted:Qty: 1 on 10/04/2022 by Donell Landry Jr., MD at OR [facility] [place] Left: Knee ANGEL : TRAUMA 07/24/2032 2360-5035S / / [id number] Screw Gina Lk A3 Ti 5x12mm - [id number] Implanted:Qty: 1 on 10/04/2022 by Donell Landry Jr., MD at OR [facility] [place] ANGEL : TRAUMA [id number] / / Screw Gina Lk A3 Ti 5x16mm - [id number] Implanted:Qty: 1 on 10/04/2022 by Donell Landry Jr., MD at OR [facility] [place] ANGEL : TRAUMA [id number] / / Washer For 2.4mm/2.7mm/3.5m m - [id number] Implanted:Qty: 2 on 10/04/2022 by Donell Landry Jr., MD at OR [facility] [place] ANGEL : TRAUMA [id number] / / Screw Nlk V2 T10 Ft 3.5x28mm - [id number] Implanted:Qty: 2 on 10/04/2022 by Donell Landry Jr., MD at OR [facility] [place] ANGEL : TRAUMA [id number] / / documented as of this encounter Advance Directives Documents on File Type Date Recorded Patient Precision Honer Expl anation Advance Directives and Living Will 10/03/2022 ADVANCE DIRECTIVE / LIVING WILL Power of Corduroy Cutter Operator 10/03/2022 POWER OF A TTORNEY * Full [...] Power of Attor mel? No Care Teams Juvenile Officer Relationship Specialty Start Date End Date Guera Jay MD [address] [place] [address] [place] [address] PCP - General Family Medicine 06/19/23 documented as of this encounter
--- OUTSIDE RECORDS SUMMARY | 2024-01-21 23:12 | External Medical Summary | Summary of Care ---
Author Name Unknown Organization [facility] Address [address] [place] [address] Phone [phone] Care Team Providers Care General Farmer Name Role Phone Guera Jay MD Primary Care Prov ider Encounter Details Date Type Department Care Team (Late st Contact Info) Description 12/27/2023 Population Health External Data Unspecified Department Allergies Active Allergy Reactions Criticality Noted Date [...] albuteorl. 1 Each 04/25/2022 Active Saline Nasal [place] 0.65 % Nasal Solution ([place]) Administer 1 [place] into nostril in the morning and 1 [place] at noon and 1 [place] in the evening and 1 [place] before bedtime. 30 mL 11/15/2022 Active Senna [...] 75 MG Oral Tablet (pLAVix)Indications :Atherosclerosis of [place] coronary artery of [place] heart with angina pectoris (HCC) Take 1 [...] placed. Pt to use [facility]. Scheduling to fax orders. COPD, group B, [...] meds at length -albuterol rx sent to [facility] -Use Advair BID -has rescue kit -CXR, exercise pulse ox -f/u t/c and home visit next week -needs pulm f/u Mediastinal adenopathy 04/25/2022 Chronic back pain greater than 3 months duration 04/17/2022 Hx of actinic keratosis 10/24/2020 VALDOVINOS (dyspnea on exertion) 08/17/2020 Last Assessment & Plan: Per walk test in June 2022, patient did not require oxygen. Cervical spinal stenosis 01/27/2020 Atherosclerosis of [place] co ronary artery of [place] heart with stable angina pectoris 10/02/2019 Overview: [...] replacement 1984 and 2006. Pain managed through [facility] pain clinic. 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 12/22 Overview: CO-M2 [place] Last Assessment & Plan: Follows with GI [...] Medication Regimen o Class D - Inhaled Ssmzncogdvsesy-MPQV-PZRS Combination Inhaler (Trellegy) Exacerbation Mgt: o Rescue [...] 01/22/2019 07/29/2020 Coronary artery disease invo lving [place] coronary artery of [place] heart without angina pectoris 09/19/2017 10/31/2021 Overview: W/ angina on [place] (actinic keratosis) 01/23/201710/24 Bradycardia 06/14/2016 09/19/2017 Essential hypertension with goal blood pressure less than 140/90 10/31/2015 07/04/2022 Last Assessment & Plan: bp stable-not on meds Monitor Chronic cholecystitis 03/10/20092010 ACTIVE CASE MANAGEMENT 03/07/200904/10 Overview: Chela Morris, RN [phone] Other specified hypothyroidism 03/01/2008 08/16/2016 Overview: TSH [...] MEDICATION USE AGREEMENT 09/2010 Overview: Dr Parra [facility] Beta-hakan intolerance documented as of this encounter (statuses as of 12/27/2023) Immunizations Name Administration Dates Next Due COVID-19 mRNA, LNP-s, No Pre serve, 2-Dose Series (Voltaix) 10/13/2020,09/22/2020 Pneumococcal Conjugate Vacc, 13 Valent (Prevnar) [...] No 10/04/2022 documented as of this encounter Plan of Treatment Upcoming Encounters Date Type Department Care Team (Late st Contact Info) Description 01/21/2024 2:30 PM EDT Office Visit Cardiology, [facility] [address] [place] [address] Varsha Banerjee PA-C [address] [place] [address] 06/22/2024 1:40 PM EST Office Visit Dermatology [address] [place] [address] Nia Hong PA-C [address] [place] [address] [place] [address] Health Maintenance Due Date Last Done Comments [...] this encounter Medical Devices Implanted Type Area Medical Clinic Manager Device Identifier Shelf Expiration Date Model / Serial / Lot Femoral Nail Retrograde Implanted:Qty: 1 on 10/04/2022 by Donell Landry Jr., MD at OR [facility] [place] Left: Knee ANGEL 02/18/2031 2339-1128S / / [id number] Screw Nlk A3 Ti 4.5x36mm - [id number] Implanted:Qty: 1 on 10/04/2022 by Donell Landry Jr., MD at OR [facility] ANGEL : TRAUMA [id number] / / 5.0 Compression Plate Implanted:Qty: 1 on 10/04/2022 by Donell Landry Jr., MD at OR [facility] ANGEL [id number] / / Screw T2 Alpha Adv Lck 5x85 - [id number] Implanted:Qty: 1 on 10/04/2022 by Donell Landry Jr., MD at OR [facility] Left: Knee ANGEL : TRAUMA 07/24/2031 2361-5085S / / [id number] Screw T2 Alpha Adv Lck 5x65 - [id number] Implanted:Qty: 1 on 10/04/2022 by Donell Landry Jr., MD at OR [facility] Left: Knee ANGEL : TRAUMA 07/24/2032 2361-5065S / / [id number] Screw T2 Alpha Adv Lck 5x85 - [id number] Implanted:Qty: 1 on 10/04/2022 by Donell Landry Jr., MD at OR [facility] Left: Knee ANGEL : TRAUMA 02/22/2032 2361-5085S / / [id number] Screw T2 Alpha Lock 5x35mm - [id number] Implanted:Qty: 1 on 10/04/2022 by Donell Landry Jr., MD at OR [facility] Left: Knee ANGEL : TRAUMA 07/24/2032 2360-5035S / / [id number] Screw Gina Lk A3 Ti 5x12mm - [id number] Implanted:Qty: 1 on 10/04/2022 by Donell Landry Jr., MD at OR [facility] ANGEL : TRAUMA [id number] / / Screw Gina Lk A3 Ti 5x16mm - [id number] Implanted:Qty: 1 on 10/04/2022 by Donell Landry Jr., MD at OR [facility] ANGEL : TRAUMA [id number] / / Washer For 2.4mm/2.7mm/3.5m m - [id number] Implanted:Qty: 2 on 10/04/2022 by Donell Landry Jr., MD at OR [facility] ANGEL : TRAUMA [id number] / / Screw Nlk V2 T10 Ft 3.5x28mm - [id number] Implanted:Qty: 2 on 10/04/2022 by Donell Landry Jr., MD at OR [facility] ANGEL : TRAUMA [id number] / / documented as of this encounter Advance Directives Documents on File Type Date Recorded 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 No Care Teams General Farmer Relationship Specialty Start Date End Date Guera Jay MD [address] [place] [address] [place] [address] PCP - General Family Medicine 06/19/23 documented as of this encounter
--- OUTSIDE RECORDS SUMMARY | 2024-01-21 23:12 | External Medical Summary | Summary of Care ---
Author Name Unknown Organization [facility] Address [address] [place] [address] Phone [phone] Care Team Providers Care Director Of Vital Statistics Name Role Phone Guera Jay MD Primary Care Prov ider Reason for Visit * Reason Onset Date Comments Medication Refill 01/14/2024 Encounter Details Date Type Department Care Team (Late st Contact Info) Description 01/14/2024 Telephone Family Medicine [address] [phone] Guera Jay MD [address] [place] [phone] Medication Refill Allergies Active Allergy Reactions Criticality Noted Date Comments Adhesive Tape Other (Please comment) Low 03/09/2009 Affected area blisters. Latex 11/23/2014 Patient denies this allergy documented as of this encounter (statuses as of 01/15/2024) Medications Medication Sig Dispensed Refills Start Date End Date Status Acetaminophen 500 MG Oral Tablet Take 2 Tablets by mouth 3 times a day as needed for Pain, Moderate or Pain, Severe. Active Flutter DeviceIndications: Bronchiectasis without complication (HCC) Use for 10 min twice daily. pretreat with albuteorl. 1 Each 04/25/2022 Active Saline Nasal [place] 0.65 % Nasal Solution ([place]) Administer 1 [place] into nostril in the morning and 1 [place] at noon and 1 [place] in the evening and 1 [place] before bedtime. 30 mL 11/15/2022 Active Senna [...] 75 MG Oral Tablet (pLAVix)Indication s:Atherosclerosis of [place] coronary artery of [place] heart with angina pectoris (HCC) Take 1 [...] BEFORE BEDTIME 270 Capsule 1 01/06/2024 Active documented as of this encounter (statuses as of 01/15/2024) Active Problems Problem Noted Date Diagnosed Date [...] [facility] [place] Scheduling to fax orders. COPD, group B, [...] meds at length -albuterol rx sent to [facility] -Use Advair BID -has rescue kit [...] oxygen. Cervical spinal stenosis 01/27/2020 Atherosclerosis of [place] co ronary artery of [place] heart with stable angina pectoris 10/02/2019 Overview: [...] replacement 1984 and 2006. Pain managed through [facility] pain clinic. 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 o Used rescue kit in the past month: No o Required IM or IV steroids (Solumedrol) since last visit: No Current exacerbation. Rescue kit initiated. Follow-up scheduled. [facility] 05/24/2022 07/18/2022 Overview: [...] 01/22/2019 07/29/2020 Coronary artery disease invo lving [place] coronary artery of [place] heart without angina pectoris 09/19/2017 10/31/2021 Overview: W/ angina on [place] (actinic keratosis) 01/23/201710/24 Bradycardia 06/14/2016 09/19/2017 Essential hypertension with goal blood pressure less than 140/90 10/31/2015 07/04/2022 Last Assessment & Plan: bp stable-not on meds Monitor Chronic cholecystitis 03/10/20092010 ACTIVE CASE MANAGEMENT 03/07/200904/10 Overview: Chela Morris, RN [phone] Other specified hypothyroidism 03/01/2008 08/16/2016 Overview: [...] MEDICATION USE AGREEMENT 09/2010 Overview: Dr Parra [facility] Beta-hakan intolerance documented as of this encounter (statuses as of 01/15/2024) Immunizations Name Administration Dates Next Due COVID-19 mRNA, LNP-s, No Pre serve, 2-Dose Series ([facility]) 10/13/2020,09/22/2020 Pneumococcal Conjugate Vacc, 13 Valent (Prevnar) [...] encounter Miscellaneous Notes * Telephone Encounter - Dayanna Walker CPhT - 01/14/2024 1:47 PM EDT Patient calling to request a refill on Iprat-albuterol. Medication was last prescribed by [facility] but patient is asking if PCP can take over the medication. Please advise if this is appropriate and send to [facility] if agreeable. Thank you, Dayanna Walker CPhT [facility] 01/14/2024,1:47 PM documented in this encounter Plan of Treatment Upcoming Encounters Date Type Department Care Team (Late st Contact Info) Description 01/21/2024 2:30 PM EDT Office Visit Cardiology, [facility] [address] [place] [address] Varsha Banerjee PA-C [address] [place] [address] 06/22/2024 1:40 PM EST Office Visit Dermatology [address] [place] [address] Nia Hong PA-C [address] [place] [address] [place] [address] Health Maintenance Due Date Last Done Comments [...] this encounter Medical Devices Implanted Type Area Assistant Store Manager Device Identifier Shelf Expiration Date Model / Serial / Lot Femoral Nail Retrograde Implanted:Qty: 1 on 10/04/2022 by Donell Landry Jr., MD at OR [facility] [place] Left: Knee ANGEL 02/18/2031 2339-1128S / / [id number] Screw Nlk A3 Ti 4.5x36mm - [id number] Implanted:Qty: 1 on 10/04/2022 by Donell Landry Jr., MD at OR [facility] ANGLE : TRAUMA [id number] / / 5.0 Compression Plate Implanted:Qty: 1 on 10/04/2022 by Donell Landry Jr., MD at OR [facility] ANGEL [id number] / / Screw T2 Alpha Adv Lck 5x85 - [id number] Implanted:Qty: 1 on 10/04/2022 by Donell Landry Jr., MD at OR [facility] [place] Left: Knee ANGEL : TRAUMA 07/24/2031 2361-5085S / / [id number] Screw T2 Alpha Adv Lck 5x65 - [id number] Implanted:Qty: 1 on 10/04/2022 by Donell Landry Jr., MD at OR [facility] [place] Left: Knee ANGEL : TRAUMA 07/24/2032 2361-5065S / / [id number] Screw T2 Alpha Adv Lck 5x85 - [id number] Implanted:Qty: 1 on 10/04/2022 by Donell Landry Jr., MD at OR [facility] Left: Knee ANGEL : TRAUMA 02/22/2032 2361-5085S / / [id number] Screw T2 Alpha Lock 5x35mm - [id number] Implanted:Qty: 1 on 10/04/2022 by Donell Landry Jr., MD at OR [facility] Left: Knee ANGEL : TRAUMA 07/24/2032 2360-5035S / / [id number] Screw Gina Lk A3 Ti 5x12mm - [id number] Implanted:Qty: 1 on 10/04/2022 by Donell Landry Jr., MD at OR [facility] ANGEL : TRAUMA [id number] / / Screw Gina Lk A3 Ti 5x16mm - [id number] Implanted:Qty: 1 on 10/04/2022 by Donell Landry Jr., MD at OR [facility] ANGEL : TRAUMA [id number] / / Washer For 2.4mm/2.7mm/3.5m m - [id number] Implanted:Qty: 2 on 10/04/2022 by Donell Landry Jr., MD at OR [facility] ANGEL : TRAUMA [id number] / / Screw Nlk V2 T10 Ft 3.5x28mm - [id number] Implanted:Qty: 2 on 10/04/2022 by Donell Landry Jr., MD at OR [facility] ANGEL : TRAUMA [id number] / / documented as of this encounter Advance Directives Documents on File Type Date Recorded 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 No Care Teams Director Of Vital Statistics Relationship Specialty Start Date End Date Guera Jay MD [address] [place] [address] [place] [address] PCP - General Family Medicine 06/19/23 documented as of this encounter
--- OUTSIDE RECORDS SUMMARY | 2024-01-21 23:12 | External Medical Summary | Summary of Care ---
Author Name Unknown Organization [facility] Address [address] [place] [address] Phone [phone] Care Team Providers Care Ski Patrol Director Name Role Phone Guera Jay MD Primary Care Prov ider Reason for Visit * Reason Onset Date Comments No Show 12/29/2023 [facility] No Show Auto mation Encounter Details Date Type Department Care Team (Late st Contact Info) Description 12/29/2023 Telephone Family Medicine [address] [phone] Paige [address] [address] No Show ([place] No Show Automation) Allergies Active Allergy Reactions Criticality Noted Date Comments Adhesive Tape Other (Please comment) Low 03/09/2009 Affected area blisters. Latex 11/23/2014 Patient denies this allergy documented as of this encounter (statuses as of 12/29/2023) Medications Medication Sig Dispensed Refills Start Date End Date Status Acetaminophen 500 MG Oral Tablet Take 2 Tablets by mouth 3 times a day as needed for Pain, Moderate or Pain, Severe. Active Flutter DeviceIndications:B ronchiectasis without complication (HCC) Use for 10 min twice daily. pretreat with albuteorl. 1 Each 04/25/2022 Active Saline Nasal Brewster 0.65 % Nasal Solution ([place]) Administer 1 Brewster into nostril in the morning and 1 Brewster at noon and 1 Brewster in the evening and 1 Brewster before bedtime. 30 mL 11/15/2022 Active Senna [...] 75 MG Oral Tablet (pLAVix)Indications :Atherosclerosis of [place] coronary artery of [place] heart with angina pectoris (HCC) Take 1 [...] as of this encounter (statuses as of 12/29/2023) Active Problems Problem Noted Date Diagnosed Date [...] and pelvis placed. Pt to use OSH [facility] in [place]. Scheduling to fax orders. COPD, group B, [...] meds at length -albuterol rx sent to [facility] -Use Advair BID -has rescue kit [...] oxygen. Cervical spinal stenosis 01/27/2020 Atherosclerosis of [place] co ronary artery of [place] heart with stable angina pectoris 10/02/2019 Overview: [...] 1984 and 2006. Pain managed through [facility] pain clinic. 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 Beta-hakan intolerance documented as of this encounter (statuses as of 12/29/2023) Immunizations Name Administration Dates Next Due COVID-19 mRNA, LNP-s, No Pre serve, 2-Dose Series ([email or web address]) 10/13/2020,09/22/2020 Pneumococcal Conjugate Vacc, 13 Valent (Prevnar) [...] encounter Miscellaneous Notes * Telephone Encounter - [facility], No Show - 12/29/2023 12:12 PM EDT Dear Gwyn Shaver, Looks like you missed an appointment with PAIGE MARX on 12/24/2023 at 11:00 AM. If you haven't already rescheduled, you have a couple of options: Reschedule in [email or web address] Call us at [phone] Can't make a future appointment? Cancel and let someone else have your spot! It's easy to do via [employer] or by calling us. Thanks for trusting [facility] with your care. We hope to see you back in our office soon. Sincerely, PAIGE MARX documented in this encounter Plan of Treatment Upcoming Encounters Date Type Department Care Team (Late st Contact Info) Description 01/21/2024 2:30 PM EDT Office Visit Cardiology, [facility] [address] [place] [address] Varsha Banerjee PA-C [address] [place] [address] 06/22/2024 1:40 PM EST Office Visit Dermatology [address] [place] [address] Nia Hong PA-C [address] [place] [address] [place] [phone] Health Maintenance Due Date Last Done Comments [...] this encounter Medical Devices Implanted Type Area Sheet Metal Supervisor Device Identifier Shelf Expiration Date Model / Serial / Lot Femoral Nail Retrograde Implanted:Qty: 1 on 10/04/2022 by Donell Landry Jr., MD at OR [facility] Left: Knee ANGEL 02/18/2031 2339-1128S / / [id number] Screw Nlk A3 Ti 4.5x36mm - [id number] Implanted:Qty: 1 on 10/04/2022 by Donell Landry Jr., MD at OR [facility] ANGEL : TRAUMA [id number] / / 5.0 Compression Plate Implanted:Qty: 1 on 10/04/2022 by Donell Landry Jr., MD at OR [facility] ANGEL [id number] / / Screw T2 Alpha Adv Lck 5x85 - [id number] Implanted:Qty: 1 on 10/04/2022 by Donell Landry Jr., MD at OR [facility] Left: Knee ANGEL : TRAUMA 07/24/2031 2361-5085S / / [id number] Screw T2 Alpha Adv Lck 5x65 - [id number] Implanted:Qty: 1 on 10/04/2022 by Donell Landry Jr., MD at OR [facility] Left: Knee ANGEL : TRAUMA 07/24/2032 2361-5065S / / [id number] Screw T2 Alpha Adv Lck 5x85 - [id number] Implanted:Qty: 1 on 10/04/2022 by Donell Landry Jr., MD at OR [facility] Left: Knee ANGEL : TRAUMA 02/22/2032 2361-5085S / / [id number] Screw T2 Alpha Lock 5x35mm - [id number] Implanted:Qty: 1 on 10/04/2022 by Donell Landry Jr., MD at OR [facility] Left: Knee ANGEL : TRAUMA 07/24/2032 2360-5035S / / [id number] Screw Gina Lk A3 Ti 5x12mm - [id number] Implanted:Qty: 1 on 10/04/2022 by Donell Landry Jr., MD at OR [facility] ANGEL : TRAUMA [id number] / / Screw Gina Lk A3 Ti 5x16mm - [id number] Implanted:Qty: 1 on 10/04/2022 by Donell Landry Jr., MD at OR [facility] ANGEL : TRAUMA [id number] / / Washer For 2.4mm/2.7mm/3.5m m - [id number] Implanted:Qty: 2 on 10/04/2022 by Donell Landry Jr., MD at OR [facility] ANGEL : TRAUMA [id number] / / Screw Nlk V2 T10 Ft 3.5x28mm - [id number] Implanted:Qty: 2 on 10/04/2022 by Donell Landry Jr., MD at OR [facility] ANGEL : TRAUMA [id number] / / documented as of this encounter Advance Directives Documents on File Type Date Recorded Patient Form Presser Expl anation Advance Directives and Living Will 10/03/2022 ADVANCE DIRECTIVE / LIVING WILL Power of Tablet Coater 10/03/2022 POWER OF A TTORNEY * Full [...] Power of Attor mel? No Care Teams Ski Patrol Director Relationship Specialty Start Date End Date Guera Jay MD [address] [place] [address] [place] [address] PCP - General Family Medicine 06/19/23 documented as of this encounter
--- OUTSIDE RECORDS SUMMARY | 2024-01-21 23:12 | External Medical Summary | Summary of Care ---
Author Name Unknown Organization [facility] Address [address] [place] [address] Phone [phone] Care Team Providers Care Tube Lancer Name Role Phone Guera Jay MD Primary Care Prov ider Reason for Visit * Reason Onset Date Comments Medication Refill 01/14/2024 Encounter Details Date Type Department Care Team (Late st Contact Info) Description 01/14/2024 Refill Family Medicine [address] [address] Guera Jay MD [address] [place] [id number] Allergies Active Allergy Reactions Criticality Noted [...] albuteorl. 1 Each 04/25/2022 Active Saline Nasal Minetto 0.65 % Nasal Solution ([place]) Administer 1 Minetto into nostril in the morning and 1 Minetto at noon and 1 Minetto in the evening and 1 Minetto before bedtime. 30 mL 11/15/2022 Active Senna [...] 75 MG Oral Tablet (pLAVix)Indication s:Atherosclerosis of [place] coronary artery of [place] heart with angina pectoris (HCC) Take 1 [...] and pelvis placed. Pt to use OSH [facility] in [place]. Scheduling to fax orders. COPD, group B, [...] meds at length -albuterol rx sent to [facility] -Use Advair BID -has rescue kit [...] oxygen. Cervical spinal stenosis 01/27/2020 Atherosclerosis of [place] co ronary artery of [place] heart with stable angina pectoris 10/02/2019 [...] replacement 1984 and 2006. Pain managed through [facility] pain clinic. 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 o Used rescue kit in the past month: No o Required IM or IV steroids (Solumedrol) since last visit: No Current exacerbation. Rescue kit initiated. Follow-up scheduled. [facility] 05/24/2022 07/18/2022 Overview: [...] 01/22/2019 07/29/2020 Coronary artery disease invo lving [place] coronary artery of [place] heart without angina pectoris 09/19/2017 10/31/2021 [...] MEDICATION USE AGREEMENT 09/2010 Overview: Dr Parra [facility] Beta-hakan intolerance documented as of this encounter (statuses as of 01/16/2024) Immunizations Name Administration Dates Next Due COVID-19 mRNA, LNP-s, No Pre serve, 2-Dose Series ([employer]) 10/13/2020,09/22/2020 Pneumococcal Conjugate Vacc, 13 Valent (Prevnar) [...] encounter Miscellaneous Notes * Addendum Note - Gera Ruff LPN - 01/16/2024 11:24 AM EDTAddended by: GERA RUFF on: 01/16/2024 11:24 AM Modules accepted: Orders * Telephone Encounter - Gera Ruff LPN - 01/16/2024 11:24 AM EDT Pending Prescriptions: Disp Refills Ipratropium-Albuterol 0.5-2.5 (3) MG/3ML *360 mL 5 Sig: Inhale 3 mL via nebulizer every 6 hours as needed for Shortness of Breath. Last Visit: 06/19/2023 (in office), Visit date not found (telemedicine) Next Visit: Visit date not found Last date the medication was ordered: 11/22/2022 Patient Active Problem List Diagnosis DIASTOLIC DYSFUNCTION Granulomatous lung disease (HCC) Idiopathic scoliosis RHINITIS, NONALLERGIC Deviated nasal septum ADVANCE DIRECTIVE INFORMATION Seborrheic keratosis Diverticulosis of colon BPH with obstruction/lower urinary tract symptoms Urge incontinence DYSLIPIDEMIA, GOAL LDL BELOW 100 Major depressive disorder, single episode, moderate (HCC) Lumbosacral neuritis Diastasis of muscle Vitamin D deficiency Seborrheic dermatitis Nasal deformity, acquired Nasal turbinate hypertrophy Restless legs Acquired hypothyroidism Sinus node dysfunction (HCC) Cardiac pacemaker in situ Gastroesophageal reflux disease with esophagitis Xerostomia Total knee replacement status, 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 Chronic pain due to trauma Trigger middle finger of right hand Arthritis of both hands Eczema of left external ear 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) Cervical spinal stenosis VALDOVINOS (dyspnea on exertion) Hx of actinic keratosis Chronic back pain greater than 3 months duration Moderate persistent asthma without complication Bronchiectasis without complication (HCC) Alveolar emphysema of lung (HCC) Mediastinal adenopathy COPD, group B, by GOLD 2017 classification (HCC) Generalized abdominal pain History of falling Dementia with mood disturbance (HCC) Respiratory insufficiency DDD (degenerative disc disease), cervical Diverticulosis of large intestine without hemorrhage Atelectasis, bilateral Cerebrovascular disease Periprosthetic fracture of femur at tip of prosthesis DDD (degenerative disc disease), lumbosacral Diastolic congestive heart failure (HCC) DNR (do not resuscitate) Supraventricular tachycardia (HCC) Urinary frequency Labs: Lab Results Component Value Date/Time CREATININE - [facility] 1.1 01/09/2023 10:30 AM CREATININE - [facility] 1.3 (H) 04/12/2020 10:48 AM CREATININE, RANDOM URINE - [facility] 165 07/27/2021 04:11 PM CREATININE-OUTSIDE LAB 1.07 03/11/2023 12:00 AM Lab Results Component Value Date/Time POTASSIUM - [facility] 4.5 01/09/2023 10:30 AM POTASSIUM - [facility] 4.5 04/12/2020 10:48 AM POTASSIUM-OUTSIDE LAB 4.0 03/11/2023 12:00 AM Lab Results Component Value Date/Time TSH - [facility] 1.75 01/09/2023 10:30 AM TSH - [facility] 1.76 01/09/2023 10:30 AM TSH - [facility] 2.85 05/26/2019 08:32 AM Lab Results Component Value Date/Time LDL CHOLESTEROL (CALCULATED) - [facility] 74 04/17/2022 12:56 PM LDL CHOLESTEROL (CALCULATED) - [facility] 57 04/26/2021 03:16 PM LDL CHOLESTEROL (CALCULATED) - [facility] 82 05/26/2019 08:32 AM LDL CHOLESTEROL (CALCULATED) - [facility] 72 11/13/2016 09:49 AM LDL CHOLESTEROL (DIRECT MEASURE) - [facility] NOT APPLICABLE 05/26/2019 08:32 AM LDL CHOLESTEROL (DIRECT MEASURE) - [facility] NOT APPLICABLE 11/13/2016 09:49 AM Lab Results Component Value Date/Time ALT - [facility] 14 11/14/2022 05:43 AM ALT - [facility] 19 04/12/2020 10:48 AM Hemoglobin AIC Results: Lab Results Component Value Date/Time HEMOGLOBIN A1C - [facility] 6.1 (H) 04/17/2022 12:56 PM HEMOGLOBIN A1C - [facility] 5.0 12/03/2016 11:27 AM HEMOGLOBIN A1C - [facility] 5.2 06/14/2006 12:49 PM * Telephone Encounter - Dayanna Walker CPhT - 01/14/2024 1:47 PM EDT Patient calling to request a refill on Iprat-albuterol. [facility] patient is asking if PCP can take over the medication. Please advise if this is appropriate and send to [facility] if agreeable. Thank you, Dayanna Walker CPhT Finished Cloth Examiner [facility] 01/14/2024,1:47 PM documented in this encounter Plan of Treatment Upcoming Encounters Date Type Department Care Team (Late st Contact Info) Description 01/21/2024 2:30 PM EDT Office Visit Cardiology, [facility] [address] [place] [address] Varsha Banerjee PA-C [address] [place] [phone] 06/22/2024 1:40 PM EST Office Visit Dermatology [address] [place] [address] Nai Hong PA-C [address] [place] [address] [place] [address] Health Maintenance Due Date Last Done Comments [...] this encounter Medical Devices Implanted Type Area Matrix Bath Attendant Device Identifier Shelf Expiration Date Model / Serial / Lot Femoral Nail Retrograde Implanted:Qty: 1 on 10/04/2022 by Donell Landry Jr., MD at OR [facility] Left: Knee ANGEL 02/18/2031 2339-1128S / / [id number] Screw Nlk A3 Ti 4.5x36mm - [id number] Implanted:Qty: 1 on 10/04/2022 by Donell Landry Jr., MD at OR [facility] ANGEL : TRAUMA [id number] / / 5.0 Compression Plate Implanted:Qty: 1 on 10/04/2022 by Donell Landry Jr., MD at OR [facility] ANGEL [id number] / / Screw T2 Alpha Adv Lck 5x85 - [id number] Implanted:Qty: 1 on 10/04/2022 by Donell Landry Jr., MD at OR [facility] Left: Knee ANGEL : TRAUMA 07/24/2031 2361-5085S / / [id number] Screw T2 Alpha Adv Lck 5x65 - [id number] Implanted:Qty: 1 on 10/04/2022 by Donell Landry Jr., MD at OR [facility] Left: Knee ANGEL : TRAUMA 07/24/2032 2361-5065S / / [id number] Screw T2 Alpha Adv Lck 5x85 - [id number] Implanted:Qty: 1 on 10/04/2022 by Donell Landry Jr., MD at OR [facility] Left: Knee ANGEL : TRAUMA 02/22/2032 2361-5085S / / [id number] Screw T2 Alpha Lock 5x35mm - [id number] Implanted:Qty: 1 on 10/04/2022 by Donell Landry Jr., MD at OR [facility] Left: Knee ANGEL : TRAUMA 07/24/2032 2360-5035S / / [id number] Screw Gina Lk A3 Ti 5x12mm - [id number] Implanted:Qty: 1 on 10/04/2022 by Donell Landry Jr., MD at OR [facility] ANGEL : TRAUMA [id number] / / Screw Gina Lk A3 Ti 5x16mm - [id number] Implanted:Qty: 1 on 10/04/2022 by Donell Landry Jr., MD at OR [facility] ANGEL : TRAUMA [id number] / / Washer For 2.4mm/2.7mm/3.5m m - [id number] Implanted:Qty: 2 on 10/04/2022 by Donell Landry Jr., MD at OR [facility] ANGEL : TRAUMA [id number] / / Screw Nlk V2 T10 Ft 3.5x28mm - [id number] Implanted:Qty: 2 on 10/04/2022 by Donell Landry Jr., MD at OR [facility] ANGEL : TRAUMA [id number] / / documented as of this encounter Advance Directives Documents on File Type Date Recorded Patient Associate Buyer Expl anation Advance Directives and Living Will 10/03/2022 ADVANCE DIRECTIVE / LIVING WILL Power of Wood Furniture Assembler 10/03/2022 POWER OF A TTORNEY * Full [...] Power of Attor mel? No Care Teams Tube Lancer Relationship Specialty Start Date End Date Guera Jay MD [address] [place] [address] [place] [phone] PCP - General Family Medicine 06/19/23 documented as of this encounter
--- OUTSIDE RECORDS SUMMARY | 2024-01-21 23:13 | External Medical Summary | Summary of Care ---
Author Name Unknown Organization [facility] Address [address] [place] [address] Phone [phone] Care Team Providers Care Education Assistant Name Role Phone Guera Jay MD Primary Care Prov ider Encounter Details Date Type Department Care Team (Late st Contact Info) Description 12/19/2023 Result Scan Unspecified Department <No scans attached> Allergies Active Allergy Reactions Criticality Noted Date Comments Adhesive Tape Other (Please comment) Low 03/09/2009 Affected area blisters. Latex 11/23/2014 Patient denies this allergy documented as of this encounter (statuses as of 12/19/2023) Medications Medication Sig Dispensed Refills Start Date End Date Status Acetaminophen 500 MG Oral Tablet Take 2 Tablets by mouth 3 times a day as needed for Pain, Moderate or Pain, Severe. Active Flutter DeviceIndications:B ronchiectasis without complication (HCC) Use for 10 min twice daily. pretreat with albuteorl. 1 Each 04/25/2022 Active Saline Nasal [place] 0.65 % Nasal Solution ([place]) Administer 1 [place]falls into nostril in the morning and 1 Grandfalls at noon and 1 [place]falls in the evening and 1 [place]falls before bedtime. 30 mL 11/15/2022 Active Senna [...] 75 MG Oral Tablet (pLAVix)Indications :Atherosclerosis of [place] coronary artery of [place] heart with angina pectoris (HCC) Take [...] as of this encounter (statuses as of 12/19/2023) Active Problems Problem Noted Date Diagnosed Date [...] and pelvis placed. Pt to use OSH [facility]. Scheduling to fax orders. COPD, group B, [...] around the clock o Other/Additional Comments: anoro, advair Exacerbation plan o Solumedrol 60mg IM/IV o [...] esophagus determined by endoscopy 12/22 Overview: CO-M2 [place] Last Assessment & Plan: Follows with GI [...] as of this encounter (statuses as of 12/19/2023) Resolved Problems Problem Noted Date Diagnosed Date [...] Medication Regimen o Class D - Inhaled Rnfkdrutiezwit-DOVF-LLCM Combination Inhaler (Trellegy) Exacerbation Mgt: o Rescue [...] MANAGEMENT 03/07/200904/10 Overview: Chela Morris, RN [phone] Other specified hypothyroidism 03/01/2008 08/16/2016 Overview: TSH [...] as of this encounter (statuses as of 12/19/2023) Immunizations Name Administration Dates Next Due COVID-19 mRNA, LNP-s, No Pre serve, 2-Dose Series ([employer]) 10/13/2020,09/22/2020 Pneumococcal Conjugate Vacc, 13 Valent (Prevnar) [...] 06/22/2024 1:40 PM EST Office Visit Dermatology [address] [place] [address] Nia Hong PA-C [address] [place] [address] [place] [address] Health Maintenance Due Date Last Done Comments [...] this encounter Medical Devices Implanted Type Area Hedis Review Nurse Device Identifier Shelf Expiration Date Model / Serial / Lot Femoral Nail Retrograde Implanted:Qty: 1 on 10/04/2022 by Donell Landry Jr., MD at OR [facility] Left: Knee ANGEL 02/18/2031 2339-1128S / / [id number] Screw Nlk A3 Ti 4.5x36mm - [id number] Implanted:Qty: 1 on 10/04/2022 by Donell Landry Jr., MD at OR [facility] ANGEL : TRAUMA [id number] / / 5.0 Compression Plate Implanted:Qty: 1 on 10/04/2022 by Donell Landry Jr., MD at OR [facility] ANGEL [id number] / / Screw T2 Alpha Adv Lck 5x85 - [id number] Implanted:Qty: 1 on 10/04/2022 by Donell Landry Jr., MD at OR [facility] Left: Knee ANGEL : TRAUMA 07/24/2031 2361-5085S / / [id number] Screw T2 Alpha Adv Lck 5x65 - [id number] Implanted:Qty: 1 on 10/04/2022 by Donell Landry Jr., MD at OR [facility] Left: Knee ANGEL : TRAUMA 07/24/2032 2361-5065S / / [id number] Screw T2 Alpha Adv Lck 5x85 - [id number] Implanted:Qty: 1 on 10/04/2022 by Donell Landry Jr., MD at OR [facility] Left: Knee ANGEL : TRAUMA 02/22/2032 2361-5085S / / [id number] Screw T2 Alpha Lock 5x35mm - [id number] Implanted:Qty: 1 on 10/04/2022 by Donell Landry Jr., MD at OR [facility] Left: Knee ANGEL : TRAUMA 07/24/2032 2360-5035S / / [id number] Screw Gina Lk A3 Ti 5x12mm - [id number] Implanted:Qty: 1 on 10/04/2022 by Donell Lnadry Jr., MD at OR [facility] ANGEL : TRAUMA [id number] / / Screw Gina Lk A3 Ti 5x16mm - [id number] Implanted:Qty: 1 on 10/04/2022 by Donell Landry Jr., MD at OR [facility] ANGEL : TRAUMA [id number] / / Washer For 2.4mm/2.7mm/3.5m m - [id number] Implanted:Qty: 2 on 10/04/2022 by Donell Landry Jr., MD at OR [facility] ANGEL : TRAUMA [id number] / / Screw Nlk V2 T10 Ft 3.5x28mm - [id number] Implanted:Qty: 2 on 10/04/2022 by Donell Landry Jr., MD at OR [facility] ANGEL : TRAUMA [id number] / / documented as of this encounter Procedures Procedure Name Priority Date/Time Associated Diagnosis Comments ECHOCARDIOLOGY SCANNED RESULT 12/19/2023 documented in this encounter Results * ECHOCARDIOLOGY SCANNED RESULT (12/19/2023) 12/19/2023 No Physician Data Unknown ECHOCARDIOLOGY documented in this encounter Advance Directives Documents on File Type Date Recorded Patient Power And Recovery Superintendent Expl anation Advance Directives and Living Will 10/03/2022 ADVANCE DIRECTIVE / LIVING WILL Power of Functional Analyst 10/03/2022 POWER OF A TTORNEY * Full [...] Power of Attor mel? No Care Teams Education Assistant Relationship Specialty Start Date End Date Guera Jay MD [address] [place] [address] [place] [address] PCP - General Family Medicine 06/19/23 documented as of this encounter
--- OUTSIDE RECORDS SUMMARY | 2024-01-21 23:13 | External Medical Summary | Summary of Care ---
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 Latex 11/23/2014 Patient denies this allergy documented as of this encounter (statuses as of 12/23/2023) Medications Medication Sig Dispensed Refills Start Date End Date Status Acetaminophen 500 MG Oral Tablet Take 2 Tablets by mouth 3 times a day as needed for Pain, Moderate or Pain, Severe. Active Flutter DeviceIndications: Bronchiectasis without complication (HCC) Use for 10 min twice daily. pretreat with albuteorl. 1 Each 04/25/2022 Active Saline Nasal [place] 0.65 % Nasal Solution (Rachel) Administer 1 [place] into nostril in the morning and 1 [place] at noon and 1 [place] in the evening and 1 [place] before bedtime. 30 mL 11/15/2022 Active Senna [...] 75 MG Oral Tablet (pLAVix)Indication s:Atherosclerosis of pokagon coronary artery of pokagon heart with angina pectoris (HCC) Take 1 [...] 75 MG Oral Tablet (pLAVix)Indication s:Atherosclerosis of pokagon coronary artery of pokagon heart with angina pectoris (HCC) TAKE ONE [...] as of this encounter (statuses as of 12/23/2023) Active Problems Problem Noted Date Diagnosed Date [...] and pelvis placed. Pt to use [facility] in [place]. Scheduling to fax orders. COPD, group B, [...] at length -albuterol rx sent to [facility] -Use Advair BID -has rescue kit [...] oxygen. Cervical spinal stenosis 01/27/2020 Atherosclerosis of pokagon co ronary artery of pokagon heart with stable angina pectoris 10/02/2019 Overview: [...] 1984 and 2006. Pain managed through [facility] pain clinic. 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 12/22 Overview: CO-M2 [place] Last Assessment & Plan: Follows with GI [...] as of this encounter (statuses as of 12/23/2023) Resolved Problems Problem Noted Date Diagnosed Date [...] Medication Regimen o Class D - Inhaled Yeimsqpidgduqb-RGVV-ZBUG Combination Inhaler (Trellegy) Exacerbation Mgt: o Rescue [...] 01/22/2019 07/29/2020 Coronary artery disease invo lving pokagon coronary artery of pokagon heart without angina pectoris 09/19/2017 10/31/2021 Overview: W/ angina on PL [place] (actinic keratosis) 01/23/201710/24 Bradycardia 06/14/2016 09/19/2017 Essential hypertension with goal blood pressure less than 140/90 10/31/2015 07/04/2022 Last Assessment & Plan: bp stable-not on meds Monitor Chronic cholecystitis 03/10/20092010 ACTIVE CASE MANAGEMENT 03/07/200904/10 Overview: Chela Morris, RN [phone] Other specified hypothyroidism 03/01/2008 08/16/2016 Overview: TSH [...] USE AGREEMENT 09/2010 Overview: Dr Parra [facility] Beta-hakan intolerance documented as of this encounter (statuses as of 12/23/2023) Immunizations Name Administration Dates Next Due COVID-19 [...] encounter Miscellaneous Notes * Telephone Encounter - Bianka Jeff OSA - 12/23/2023 2:03 PM EDT Appt to see Paige Lang already scheduled for 12/24/23 * Addendum Note - Guera Jay MD [...] preferred pharmacy and medication before forwarding?yes Pharmacy: [email or web address] Pending Prescriptions: Disp Refills [...] checking status. /Thank You, Thao Josue Cpht Treasury Consultant III [facility] 12/06/2023, [...] Care Team (Late st Contact Info) Description 12/24/2023 11:00 AM EDT Office Visit Family Medicine [address] [place] [phone] Paige Lang CRNP [address] [place] [address] [place] [address] 01/21/2024 2:30 PM EDT Office Visit Cardiology, [facility] [address] [place] [address] Varsha Banerjee PA-C [address] [place] [address] 06/22/2024 1:40 PM EST Office Visit Dermatology [address] [place] [address] Nia Hong PA-C [address] [place] [address] [place] [address] Health Maintenance Due Date Last Done Comments Alpha-1 Antitrypsin 02[birth year]06/1963 Depression Monitoring 01/23/2020 01/22/2019 Colonoscopy 08/30/2021 08/30/2016 COVID-19 Vaccine (3 2022- season) 2023 10/13/2020, 09/22/2020 TSH 01/10/2024 01/09/2023, [...] Discontinued 07/27/2021 Zoster Vaccines Completed 12/19/2021, 08/19/2021 GARDASIL-HPV IMMUNIZATION SERIES Aged Out No longer eligible based on patient's age to complete this topic Hepatitis B Aged Out No longer eligi ble based on patient's age to complete this topic MENINGOCOCCAL (MENACTRA/MENVEO) Aged Out No longer eligible based on patient's age to complete this topic documented as of this encounter Medical Devices Implanted Type Area Wellness Health Coach Device Identifier Shelf Expiration Date Model / Serial / Lot Femoral Nail Retrograde Implanted:Qty: 1 on 10/04/2022 by Donell Landry Jr., MD at OR [facility] Left: Knee ANGEL 02/18/2031 2339-1128S / / [id number] Screw Nlk A3 Ti 4.5x36mm - [id number] Implanted:Qty: 1 on 10/04/2022 by Donell Landry Jr., MD at OR [facility] ANGEL : TRAUMA [id number] / / 5.0 Compression Plate Implanted:Qty: 1 on 10/04/2022 by Donell Landry Jr., MD at OR [facility] ANGEL [id number] / / Screw T2 Alpha Adv Lck 5x85 - [id number] Implanted:Qty: 1 on 10/04/2022 by Donell Landry Jr., MD at OR [facility] Left: Knee ANGEL : TRAUMA 07/24/2031 2361-5085S / / [id number] Screw T2 Alpha Adv Lck 5x65 - [id number] Implanted:Qty: 1 on 10/04/2022 by Donell Landry Jr., MD at OR [facility] Left: Knee ANGEL : TRAUMA 07/24/2032 2361-5065S / / [id number] Screw T2 Alpha Adv Lck 5x85 - [id number] Implanted:Qty: 1 on 10/04/2022 by Donell Landry Jr., MD at OR [facility] Left: Knee ANGEL : TRAUMA 02/22/2032 2361-5085S / / [id number] Screw T2 Alpha Lock 5x35mm - [id number] Implanted:Qty: 1 on 10/04/2022 by Donell Landry Jr., MD at OR [facility] Left: Knee ANGEL : TRAUMA 07/24/2032 2360-5035S / / [id number] Screw Gina Lk A3 Ti 5x12mm - [id number] Implanted:Qty: 1 on 10/04/2022 by Donell Landry Jr., MD at OR [facility] ANGEL : TRAUMA [id number] / / Screw Gina Lk A3 Ti 5x16mm - [id number] Implanted:Qty: 1 on 10/04/2022 by Donell Landry Jr., MD at OR [facility] ANGEL : TRAUMA [id number] / / Washer For 2.4mm/2.7mm/3.5m m - [id number] Implanted:Qty: 2 on 10/04/2022 by Donell Landry Jr., MD at OR [facility] ANGEL : TRAUMA [id number] / / Screw Nlk V2 T10 Ft 3.5x28mm - [id number] Implanted:Qty: 2 on 10/04/2022 by Donell Landry Jr., MD at OR [facility] ANGEL : TRAUMA [id number] / / documented as of this encounter Visit Diagnoses Diagnosis 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 Dyslipidemia, goal LDL below 100 Other and unspecified hyperlipidemia Atherosclerosis of pokagon coronary artery of pokagon heart with angina pectoris (HCC) BPH without obstruction/lower urinary tract symptoms Hypertrophy of prostate without urinary obstruction and other lower urinary tract symptoms (LUTS) Urge incontinence documented in this encounter Advance Directives Documents on File Type Date Recorded Patient Shift Production Associate Expl anation Advance Directives and Living Will 10/03/2022 ADVANCE DIRECTIVE / LIVING WILL Power of Ornamental Plasterer Helper 10/03/2022 POWER OF A TTORNEY * Full [...] Power of Attor mel? No Care Teams Spindle Plumber Relationship Specialty Start Date End Date Guera Jay MD [address] [place] [address] [place] [address] PCP - General Family Medicine 06/19/23 documented as of this encounter
--- OUTSIDE RECORDS SUMMARY | 2024-01-21 23:13 | External Medical Summary | Summary of Care ---
Author Name Unknown Organization [facility] Address [address] [place] [address] Phone [phone] Care Team Providers Care Residential Carpet Installer Name Role Phone Guera Jay MD Primary Care Prov ider Reason for Visit * Reason Onset Date Comments Hospital Follow-Up 12/20/2023 Encounter Details Date Type Department Care Team (Late st Contact Info) Description 12/20/2023 Telephone Cardiology, [facility] [address] [facility] [place] [address] Donell [place]ura, [address] [facility] [address] Hospital Follow-Up Allergies Active Allergy Reactions Criticality [...] albuteorl. 1 Each 04/25/2022 Active Saline Nasal [place] 0.65 % Nasal Solution (Wendell) Administer 1 [place] into nostril in the morning and 1 [place] at noon and 1 [place] in the evening and 1 [place] before bedtime. 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 [place] to fax orders. COPD, group B, [...] at length -albuterol rx sent to [facility] -Use Advair BID -has rescue kit [...] oxygen. Cervical spinal stenosis 01/27/2020 Atherosclerosis of viejas co ronary artery of viejas heart with stable angina pectoris 10/02/2019 Overview: [...] esophagus determined by endoscopy 12/22 Overview: CO-M2 [place] Last Assessment & Plan: Follows with GI [...] Medication Regimen o Class D - Inhaled Gmikgyzqnnkroy-YJGF-RBXA Combination Inhaler (Trellegy) Exacerbation Mgt: o Rescue Kit in place in Medication List: Yes. o Used rescue kit in the past month: No o Required IM or IV steroids (Solumedrol) since last visit: No Current exacerbation. Rescue kit initiated. Follow-up scheduled. [facility] 05/24/2022 07/18/2022 Overview: HTN [...] 01/22/2019 07/29/2020 Coronary artery disease invo lving viejas coronary artery of viejas heart without angina pectoris 09/19/2017 10/31/2021 Overview: W/ angina on PL [place] (actinic keratosis) 01/23/201710/24 Bradycardia 06/14/2016 09/19/2017 Essential hypertension with goal blood pressure less than 140/90 10/31/2015 07/04/2022 Last Assessment & Plan: bp stable-not on meds Monitor Chronic cholecystitis 03/10/20092010 ACTIVE CASE MANAGEMENT 03/07/200904/10 Overview: Chela Morris, RN [phone] Other specified hypothyroidism 03/01/2008 08/16/2016 Overview: [...] mRNA, LNP-s, No Pre serve, 2-Dose Series ([employer]) 10/13/2020,09/22/2020 Pneumococcal Conjugate Vacc, 13 Valent (Prevnar) [...] 11:00 AM EDT Office Visit Family Medicine [address] [place] [phone] Paige Lang CRNP [address] [place] [address] [place] [address] 01/21/2024 2:30 PM EDT Office Visit Cardiology, [facility] [address] [place] [address] Varsha Banerjee PA-C [address] [place] [address] 06/22/2024 1:40 PM EST Office Visit Dermatology [address] [place] [address] Nia Hong PA-C [address] [place] [address] [place] [address] Health Maintenance Due Date Last Done Comments [...] this encounter Medical Devices Implanted Type Area Manager Family Device Identifier Shelf Expiration Date Model / Serial / Lot Femoral Nail Retrograde Implanted:Qty: 1 on 10/04/2022 by Donell Landry Jr., MD at OR [facility] Left: Knee ANGEL 02/18/2031 2339-1128S / / [id number] Screw Nlk A3 Ti 4.5x36mm - [id number] Implanted:Qty: 1 on 10/04/2022 by Donell Landry Jr., MD at OR [facility] ANGEL : TRAUMA [id number] / / 5.0 Compression Plate Implanted:Qty: 1 on 10/04/2022 by Donell Landry Jr., MD at OR [facility] ANGEL [id number] / / Screw T2 Alpha Adv Lck 5x85 - [id number] Implanted:Qty: 1 on 10/04/2022 by Donell Landry Jr., MD at OR [facility] Left: Knee ANGEL : TRAUMA 07/24/2031 2361-5085S / / [id number] Screw T2 Alpha Adv Lck 5x65 - [id number] Implanted:Qty: 1 on 10/04/2022 by Donell Landry Jr., MD at OR [facility] Left: Knee ANGEL : TRAUMA 07/24/2032 2361-5065S / / [id number] Screw T2 Alpha Adv Lck 5x85 - [id number] Implanted:Qty: 1 on 10/04/2022 by Donell Landry Jr., MD at OR [facility] Left: Knee ANGEL : TRAUMA 02/22/2032 2361-5085S / / [id number] Screw T2 Alpha Lock 5x35mm - [id number] Implanted:Qty: 1 on 10/04/2022 by Donell Landry Jr., MD at OR [facility] Left: Knee ANGEL : TRAUMA 07/24/2032 2360-5035S / / [id number] Screw Gina Lk A3 Ti 5x12mm - [id number] Implanted:Qty: 1 on 10/04/2022 by Donell Landry Jr., MD at OR [facility] ANGEL : TRAUMA [id number] / / Screw Gina Lk A3 Ti 5x16mm - [id number] Implanted:Qty: 1 on 10/04/2022 by Donell Landry Jr., MD at OR [facility] ANGEL : TRAUMA [id number] / / Washer For 2.4mm/2.7mm/3.5m m - [id number] Implanted:Qty: 2 on 10/04/2022 by Donell Landry Jr., MD at OR [facility] ANGEL : TRAUMA [id number] / / Screw Nlk V2 T10 Ft 3.5x28mm - [id number] Implanted:Qty: 2 on 10/04/2022 by Donell Landry Jr., MD at OR [facility] ANGEL : TRAUMA [id number] / / documented as of this encounter Advance Directives Documents on File Type Date Recorded Patient Cardiac Technician Expl anation Advance Directives and Living Will 10/03/2022 ADVANCE DIRECTIVE / LIVING WILL Power of Gear Cutting Machine Operator 10/03/2022 POWER OF A TTORNEY [...] Power of Attor mel? No Care Teams Residential Carpet Installer Relationship Specialty Start Date End Date Guera Jay MD [address] [place] [address] [place] [phone] PCP - General Family Medicine 06/19/23 documented as of this encounter
--- OUTSIDE RECORDS SUMMARY | 2024-01-21 23:13 | External Medical Summary | Summary of Care ---
Author Name Unknown Organization [facility] Address [address] [place] [address] Phone [phone] Care Team Providers Care Bond Clerk Name Role Phone Guera Jay MD Primary Care Prov ider Reason for Visit * Reason Onset Date Comments Hospital Follow-Up 12/20/2023 Encounter Details Date Type Department Care Team (Late st Contact Info) Description 12/20/2023 Telephone Cardiology, [facility] [address] [facility] [place] [address] Donell Bangura, [address] [facility] [place] [address] Hospital Follow-Up Allergies Active Allergy Reactions Criticality [...] albuteorl. 1 Each 04/25/2022 Active Saline Nasal [place] 0.65 % Nasal Solution ([place]) Administer 1 [place] into nostril in the morning and 1 [place] at noon and 1 [place] in the evening and 1 [place] before bedtime. 30 mL 11/15/2022 Active Senna [...] 75 MG Oral Tablet (pLAVix)Indications :Atherosclerosis of [place] of [place] coronary artery of [place] heart with angina pectoris (HCC) Take 1 [...] [facility] [place] Scheduling to fax orders. COPD, group B, [...] meds at length -albuterol rx sent to [facility] -Use Advair BID -has rescue kit [...] oxygen. Cervical spinal stenosis 01/27/2020 Atherosclerosis of [place] co ronary artery of [place] heart with stable angina pectoris 10/02/2019 Overview: [...] replacement 1984 and 2006. Pain managed through [facility] pain clinic. 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 o Used rescue kit in the past month: No o Required IM or IV steroids (Solumedrol) since last visit: No Current exacerbation. Rescue kit initiated. Follow-up scheduled. [facility] 05/24/2022 07/18/2022 Overview: [...] 01/22/2019 07/29/2020 Coronary artery disease invo lving [place] coronary artery of [place] heart without angina pectoris 09/19/2017 10/31/2021 Overview: W/ angina on PL [place] (actinic keratosis) 01/23/201710/24 Bradycardia 06/14/2016 09/19/2017 Essential hypertension with goal blood pressure less than 140/90 10/31/2015 07/04/2022 Last Assessment & Plan: bp stable-not on meds Monitor Chronic cholecystitis 03/10/20092010 ACTIVE CASE MANAGEMENT 03/07/200904/10 Overview: Chela Morris, RN [phone] Other specified hypothyroidism 03/01/2008 08/16/2016 Overview: [...] MEDICATION USE AGREEMENT 09/2010 Overview: Dr Parra [facility] Beta-hakan intolerance documented as of this encounter (statuses as of 12/23/2023) Immunizations Name Administration Dates Next Due COVID-19 mRNA, LNP-s, No Pre serve, 2-Dose Series (Or[employer]It) 10/13/2020,09/22/2020 Pneumococcal Conjugate Vacc, 13 Valent (Prevnar) [...] 11:00 AM EDT Office Visit Family Medicine [address] [place] [phone] Paige Lang CRNP [address] [place] [address] [place] [address] 01/21/2024 2:30 PM EDT Office Visit Cardiology, [facility] [address] [place] [address] Varsha Banerjee PA-C [address] [place] [address] 06/22/2024 1:40 PM EST Office Visit Dermatology [address] [place] [address] Nia Hong PA-C [address] [place] [address] [place] [address] Health Maintenance Due Date Last Done Comments [...] this encounter Medical Devices Implanted Type Area Endocrinology Specialist Device Identifier Shelf Expiration Date Model / Serial / Lot Femoral Nail Retrograde Implanted:Qty: 1 on 10/04/2022 by Donell Landry Jr., MD at OR [facility] Left: Knee ANGEL 02/18/2031 2339-1128S / / [id number] Screw Nlk A3 Ti 4.5x36mm - [id number] Implanted:Qty: 1 on 10/04/2022 by Donell Landry Jr., MD at OR [facility] ANGEL : TRAUMA [id number] / / 5.0 Compression Plate Implanted:Qty: 1 on 10/04/2022 by Donell Landry Jr., MD at OR [facility] ANGEL [id number] / / Screw T2 Alpha Adv Lck 5x85 - [id number] Implanted:Qty: 1 on 10/04/2022 by Donell Landry Jr., MD at OR [facility] Left: Knee ANGEL : TRAUMA 07/24/2031 2361-5085S / / [id number] Screw T2 Alpha Adv Lck 5x65 - [id number] Implanted:Qty: 1 on 10/04/2022 by Donell Landry Jr., MD at OR [facility] Left: Knee ANGEL : TRAUMA 07/24/2032 2361-5065S / / [id number] Screw T2 Alpha Adv Lck 5x85 - [id number] Implanted:Qty: 1 on 10/04/2022 by Donell Landry Jr., MD at OR [facility] Left: Knee ANGEL : TRAUMA 02/22/2032 2361-5085S / / [id number] Screw T2 Alpha Lock 5x35mm - [id number] Implanted:Qty: 1 on 10/04/2022 by Donell Landry Jr., MD at OR [facility] Left: Knee ANGEL : TRAUMA 07/24/2032 2360-5035S / / [id number] Screw Gina Lk A3 Ti 5x12mm - [id number] Implanted:Qty: 1 on 10/04/2022 by Donell Landry Jr., MD at OR [facility] ANGEL : TRAUMA [id number] / / Screw Gina Lk A3 Ti 5x16mm - [id number] Implanted:Qty: 1 on 10/04/2022 by Donell Landry Jr., MD at OR [facility] ANGEL : TRAUMA [id number] / / Washer For 2.4mm/2.7mm/3.5m m - [id number] Implanted:Qty: 2 on 10/04/2022 by Donell Landry Jr., MD at OR [facility] ANGEL : TRAUMA [id number] / / Screw Nlk V2 T10 Ft 3.5x28mm - [id number] Implanted:Qty: 2 on 10/04/2022 by Donell Landry Jr., MD at OR [facility] ANGEL : TRAUMA [id number] / / documented as of this encounter Advance Directives Documents on File Type Date Recorded Patient Rivet Driver Expl anation Advance Directives and Living Will 10/03/2022 ADVANCE DIRECTIVE / LIVING WILL Power of Railroad Detective 10/03/2022 POWER OF A TTORNEY * Full [...] Power of Attor mel? No Care Teams Bond Clerk Relationship Specialty Start Date End Date Guera Jay MD [address] [place] [address] [place] [address] PCP - General Family Medicine 06/19/23 documented as of this encounter
[2024-01-22 03:42] LABS: Hematocrit (blood only) 36.5 % (42.0-52.0); Mean Corpuscular Hemoglobin 31.2 pg (25.0-34.0); Mean Corpuscular Hgb Conc 32.9 g/dL (32.0-36.0); Mean Corpuscular Volume 94.8 fL (80.0-100.0); Mean Platelet Volume 10.4 fL (9.4-12.4); Platelet Count 190 K/uL (130-400); RDW Coefficient of Variation 13.6 % (11.5-14.5); RDW Standard Deviation 46.9 fL (36.4-46.3); Red Blood Count 3.85 M/uL (4.70-6.10); White Blood Count 5.83 K/ul (4.8-10.8)
[2024-01-22 03:54] LABS: BUN Creatinine Ratio 11.3 (10-20); Calcium 8.5 mg/dl (8.6-10.3); Creatinine Clr Calc Pharmacy 43.9 ml/min; Est GFR (African American) 55.3 ml/min; Est GFR (Non-African American) 47.7 ml/min; Potassium 3.8 mmol/L (3.5-5.1)
[2024-01-22] MEDS: LEVOTHYROXINE SODIUM 75 MCG TABLET PO SCH (06:29)
[2024-01-22 06:40] LABS: Appearance Urine Clear (Clear); Bacteria Urine Automated None Seen (None Seen); Bilirubin Urine Negative (Negative); Blood Urine Negative (Negative); Cast Urine Automated 0-2 /lpf (0-2); Color Urine Yellow; Epithelial Cell Urine Auto 0-2 /hpf (0-2); Glucose Urine UA Negative (Negative); Ketones Urine Negative (Negative); Leukocyte Esterase Urine Trace (Negative); Nitrite Urine Negative (Negative); Protein Urine Trace (Negative); RBC Urine Automated 0-2 /hpf (0-2); Specific Gravity Urine 1.018 (1.000-1.030); Urobilinogen Urine Negative (Negative); WBC Urine Automated 0-5 /hpf (0-5); pH Urine 5.5 (4.5-7.5)
[2024-01-22] MEDS: UMECLIDINIUM/VILANTEROL 62.5/25MCG 7 PUFFS/INHALER INH SCH (08:26)
[2024-01-22] MEDS: PANTOprazole 40 MG TAB PO SCH (08:27)
[2024-01-22] MEDS: CLOPIDOGREL BISULFATE 75 MG TAB PO SCH (08:27)
[2024-01-22] MEDS: ATORVASTATIN 40 MG TAB PO SCH (08:28)
[2024-01-22] MEDS: TAMSULOSIN HCL 0.4 MG CAP PO SCH (08:29)
[2024-01-22] MEDS: FINASTERIDE 5 MG TAB PO SCH (08:29)
--- NOTE | 2024-01-22 08:50 | Cardiology Consultation ---
Date of Consultation January 22, 2024 Assessment & Plan (1) Orthostatic hypotension: (2) AVNRT (AV pola re-entry tachycardia): (3) Elevated troponin: (4) ASCVD (arteriosclerotic cardiovascular disease): (5) HTN, goal below 130/80: (6) Dyslipidemia, goal LDL below 70: Plan Complex 78-year-old male admitted following an episode of syncope. History most suggestive of symptomatic orthostatic hypotension in setting of multiple medications as well as limited oral intake. Patient examines as mildly hypovolemic. Pacemaker interrogation reviewed with electrophysiology; events felt to represent AVNRT. LV function preserved. Inpatient telemetry benign. Patient without overt angina. Recommendations: 1. Resume metoprolol succinate at 50 mg daily. 2. Add amlodipine 2.5 mg/day 3. Hold losartan 50 mg/day 4. Decrease tamsulosin to 0.4 mg/day 5. Consider referral for AVNRT ablation if needed down the road I spent a total of 47 minutes on the date of service in preparation, delivery, and documentation of the care provided to this patient excluding any time spent in the performance of separately billed services. This visit was a split-shared visit with the substantive portion of the medical decision making performed by the supervising hardwood sawyer/billing provider. Supervising Physician Co-Signing Physician Notes Patient seen and examined, personally reviewed. Assessment and plan as outlined above. Care and management discussed with advanced provider and personally endorsed. 78-year-old male with past hospitalizations with near syncope with labile hypertension, paroxysmal atrial tachycardia, orthostasis as above Initial concerns raised regarding pacemaker mediated tachycardia not confirmed by recent interrogation Plan as outlined above Preliminary review of echocardiogram unchanged from prior studies Cardiology will follow History of Present Illness Reason for Consultation: Syncope Requesting Physician: Edgar Thorne Attending Physician: Edgar Thorne, Carmen Nj MD History of Present Illness Mr. Gwyn Shaver is a 78-year-old male who was recently admitted to [facility] December 18, 2023 to December 23, 2023 with acute hypoxic respiratory failure secondary to community-acquired pneumonia. Yesterday the patient presented to the [facility] for hospital discharge follow-up evaluation. He notes feeling somewhat poor since discharge. He describes 2 syncopal episodes, one on Saturday and 1 on Friday, January 20, 2023 at [facility]. He describes being dropped off at the door. He notes standing up to exit the car taking a few steps then experiencing significant lightheadedness prior to syncope. No tongue biting or incontinence. Patient notes limited PO intake primarily consisting of 7-Up and coffee. No chest pain. No palpitations. Stable shortness of breath with ADL's. Cough is productive of clear phlegm. No fevers or chills. No orthopnea, PND, or peripheral edema. No epistaxis, hemoptysis, melena, hematochezia, or hematuria. Problem List: Symptomatic bradycardia status post dual-chamber permanent Medtronic pacemaker implantation in 2015 Coronary heart disease Catheterization by Dr. Dennis on June 05, 2016 demonstrated multivessel coronary artery disease with a 50% proximal LAD stenosis, 70% mid LAD stenosis, 90% ostial 1st diagonal stenosis that paralleled the LAD, and a 70% ostial RPL 2 stenosis; medical management was requested due to lack of angina symptoms. Catheterization at [facility] in November 2016, for unstable angina, revealed a proximal 50% LAD lesion that was hemodynamically significant by FFR. There was also a 99% mid LAD lesion that was described as a small caliber vessel for which balloon angioplasty was performed. Attempts were made to pass a 2.25 mm stent however PCI unsuccessful as the stent could not be passed beyond the proximal portion of the stenosis due to small vessel size and an acute angle of the culprit lesion and therefore medical management pursued Diastolic dysfunction COPD, bronchiectasis, chronic oxygen supplementation Hypertension Dyslipidemia SVT Pacemaker mediated tachycardia noted during admission in November 2023 Chart history of Paroxysmal VT Chronic ambulatory dysfunction GERD BPH RLS Depression Chronic back pain Family History: Mother and brother with CAD. Mother at 96. Sister was killed in a MVA. Social History: Nonsmoker. 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 Social alcohol. Allergies Allergy/AdvReac Type Severity Reaction Status Date / Time adhesive Allergy Intermediate SKIN Verified 01/21/24 17:02 BLISTERS latex Allergy Unknown PER Verified 01/21/24 17:02 [facility] "PT DENIES" Home Medications Medication Instructions Recorded Confirmed Type acetaminophen 500 mg tablet 1,000 mg PO TID PRN Pain 03/06/23 01/21/24 History (Tylenol Extra Strength) amitriptyline 25 mg tablet 50 mg PO HS 03/06/23 01/21/24 History atorvastatin 80 mg tablet 80 mg PO DAILY 03/06/23 01/21/24 History clopidogrel 75 mg tablet 75 mg PO QAM 03/06/23 01/21/24 History duloxetine 30 mg capsule,delayed 30 mg PO QPM 03/06/23 01/21/24 History release duloxetine 60 mg capsule,delayed 60 mg PO QPM 03/06/23 01/21/24 History release finasteride 5 mg tablet 5 mg PO DAILY 03/06/23 01/21/24 History gabapentin 300 mg capsule 300 mg PO TID 03/06/23 01/21/24 History levothyroxine 75 mcg tablet 75 mcg PO DAILYBB 03/06/23 01/21/24 History losartan 50 mg tablet 50 mg PO DAILY 03/06/23 01/21/24 History nitroglycerin 0.4 mg sublingual 0.4 mg sublingual DIRECTED PRN 03/06/23 01/21/24 History tablet Chest Pain pantoprazole 40 mg tablet,delayed 40 mg PO DAILY 03/06/23 01/21/24 History release sennosides 8.6 mg tablet (senna) 17.2 mg PO BID PRN Constipation 03/06/23 01/21/24 History sodium chloride 0.65 % nasal spray 2 spray intranasal QID 03/06/23 01/21/24 History aerosol (Saline Nasal) tamsulosin 0.4 mg capsule 0.8 mg PO QAM 03/06/23 01/21/24 History ipratropium 0.5 mg-albuterol 3 mg 3 ml inhalation Q6H PRN Shortness 01/21/24 01/21/24 History (2.5 mg base)/3 mL nebulization Of Breath soln metoprolol succinate 25 mg 37.5 mg PO QAM 01/21/24 01/21/24 History tablet,extended release 24 hr umeclidinium 62.5 mcg-vilanterol 1 inh inhalation DAILY 01/21/24 01/21/24 History 25 mcg/actuation powdr for inhalation (Anoro Ellipta) Patient History Medical History Chronic hypoxic respiratory failure Spinal cord stimulator status Surgical History Status post insertion of spinal cord stimulator Family History Mother Heart disease Social History Smoking Status: Former smoker Tobacco Type: Cigarettes Do You Dip or Chew Tobacco: No; Hx Alcohol Use: No Hx Substance Use: No Preferred Language: Greek Communication Ability: Effective Pin Cleaner Required: No Beliefs That Will Affect Care: None marital status: Current Living Situation: Spouse Current Living Situation Comment: HOME WITH current occupational status: disabled Other Information That Helps Us Care for You: No Feels Safe at Home: Yes Safety Concerns: Feels Safe At This Time Assistive Devices: Cane, Denture - Upper, Scooter/Electric Scooter, Walker and Wheelchair Review of Systems Review of Systems: Complete Review of Systems is as stated above, negative, or noncontributory. Physical Exam Physical Exam: General: A&Ox3. NAD. HENT: Normocephalic. Atraumatic. Eyes: PER. Conjunctiva pink, sclera clear. Neck: No carotid bruits. No JVD. No HJR. Heart: RRR. No murmur. No rub. No gallop. PMI is nondisplaced. Lungs: Diminished. Decreased. Scattered expiratory wheezing and rhonchi. Abdomen: +BS. Soft. Nontender. No masses or organomegaly. Extremities: No clubbing, cyanosis, or edema. Limited neurological examination is without focal deficits. Pulses: radial=2/4, posterior tibial=2/4. Results & Data Vital Signs (Past 12 Hours) Vital Signs Temp Pulse Pulse Resp BP BP Pulse Ox 01/22/24 08:26 64 16 171/80 H 96 01/22/24 08:00 60 16 147/82 H 01/22/24 07:16 61 01/22/24 07:10 81 17 97 01/22/24 06:00 82 15 153/84 H 95 01/22/24 06:00 65 20 153/84 H 01/22/24 04:06 60 24 142/78 H 96 01/22/24 01:33 60 15 115/59 L 96 01/22/24 00:30 119/57 L 01/22/24 00:30 119/57 L 01/22/24 00:24 64 16 01/22/24 00:00 130/79 01/21/24 23:54 74 18 92 01/21/24 23:30 66 16 93 01/21/24 23:30 132/70 01/21/24 23:30 132/70 01/21/24 23:30 132/70 01/21/24 23:28 62 01/21/24 23:06 60 16 92 01/21/24 23:00 108/83 01/21/24 22:54 60 14 95 01/21/24 22:51 60 16 96 01/21/24 22:00 118/87 01/21/24 22:00 61 18 118/87 96 01/21/24 21:30 60 16 117/62 97 01/21/24 21:00 62 16 104/69 94 01/21/24 21:00 01/21/24 21:00 36.6 C 62 16 104/69 94 O2 Del Method O2 Flow Rate 01/22/24 08:26 Nasal Cannula 3 01/22/24 08:00 01/22/24 07:16 01/22/24 07:10 Nasal Cannula 2 01/22/24 06:00 Nasal Cannula 3 01/22/24 06:00 01/22/24 04:06 Nasal Cannula 3 01/22/24 01:33 Room Air 01/22/24 00:30 01/22/24 00:30 01/22/24 00:24 01/22/24 00:00 01/21/24 23:54 01/21/24 23:30 01/21/24 23:30 01/21/24 23:30 01/21/24 23:30 01/21/24 23:28 01/21/24 23:06 01/21/24 23:00 01/21/24 22:54 01/21/24 22:51 01/21/24 22:00 01/21/24 22:00 Nasal Cannula 3 01/21/24 21:30 Nasal Cannula 3 01/21/24 21:00 Nasal Cannula 3 01/21/24 21:00 Nasal Cannula 3 01/21/24 21:00 Nasal Cannula 3 Laboratory Results Cardiac Enzymes 01/21/24 01/21/24 01/21/24 Range/Units 16:14 17:17 21:10 AST 21 (13-39) U/L Troponin I High Sens 101.4 H* 178.0 H* D 375.0 H* D (0-20) pg/ml 01/22/24 01/22/24 Range/Units 03:19 08:19 AST (13-39) U/L Troponin I High Sens 306.9 H* 223.7 H* D (0-20) pg/ml Coagulation 01/21/24 01/21/24 Range/Units 16:14 17:16 PT Cancelled 10.7 CBC 01/21/24 01/22/24 Range/Units 16:14 03:19 WBC 6.01 5.83 (4.8-10.8) K/ul RBC 4.42 L 3.85 L (4.70-6.10) M/uL Hgb 13.8 L 12.0 L (14.0-18.0) g/dl Hct 41.1 L 36.5 L (42.0-52.0) % Plt Count 246 190 (130-400) K/uL Neut # (Auto) 3.66 (1.40-6.50) K/uL Lymph # (Auto) 1.34 (1.20-3.40) K/uL [place] # (Auto) 0.81 H (0.11-0.59) K/uL Eos # (Auto) 0.11 (0.00-0.50) K/uL Baso # (Auto) 0.05 (0.00-0.20) K/uL Comprehensive Metabolic Panel 01/21/24 01/22/24 Range/Units 16:14 03:19 Sodium 137 140 (136-145) mmol/L Potassium 4.5 3.8 (3.5-5.1) mmol/L Chloride 104 106 (98-107) mmol/L Carbon Dioxide 25 30 (21-32) mmol/L BUN 14 16 (6-23) mg/dl Creatinine 1.51 H 1.41 H (0.6-1.4) mg/dl Glucose 114 H 104 H (70-99(Fasting)) mg/dl Calcium 9.8 8.5 L (8.6-10.3) mg/dl AST 21 (13-39) U/L ALT 16 (7-52) U/L Alkaline Phosphatase 85 (34-104) U/L Total Protein 6.9 (6.0-8.3) gm/dl Albumin 4.1 (3.4-5.0) gm/dl Intake and Output 01/21/24 01/22/24 01/22/24 22:59 06:59 14:59 Intake Total 900 / 900 1000 / 1000 Output Total 450 / 450 Balance 900 / 450 -450 / 450 1000 / 1000 Intake: IV 500 / 500 1000 / 1000 Lactated Ringer's 1,000 ml @ 80 1000 / 1000 mls/hr IV .[id number] FELIX Rx#: [id number] Sodium Chloride 0.9% 500 ml @ 500 / 500 999 mls/hr IV .Q31M ONE Rx#: [id number] Oral 400 / 400 Output: Urine 450 / 450 Other: # Unmeasured Voids 1 Weight 82 kg Weight Measurement Method Built in [facility] Diagnostic Findings Echocardiogram performed 12/19/2023 revealed moderate concentric left ventricular perjury, no regional wall motion motives, LVEF normal at 60-65%, mild aortic valve sclerosis without stenosis, grade 1 diastolic dysfunction, pulmonary artery systolic pressure estimated be 35 mmHg which is the upper limit of normal. January 21, 2024 pacemaker interrogation reviewed with EP, most likely AVNRT, appropriate function. Telemetry: Atrial paced rhythm. No SVT, PAF, or VT TTE this admission is pending.
[2024-01-22] MEDS: METOPROLOL SUCC 50MG EXT REL TAB PO SCH (11:24)
[2024-01-22] MEDS: amLODIPine BESYLATE 5 MG TAB PO SCH (11:24)
--- NOTE | 2024-01-22 16:27 | Hospitalist Progress Note ---
Date of Service January 22, 2024 Assessment & Plan (1) Syncope and collapse: (2) JOHN (acute kidney injury): (3) COPD (chronic obstructive pulmonary disease): (4) Chronic hypoxic respiratory failure: (5) Chronic bronchitis: (6) Pacemaker: (7) CAD (coronary artery disease): (8) BPH w urinary obs/LUTS: (9) BRENDA (obstructive sleep apnea): Plan 78yo M with a PMH of COPD, asthma, bronchiectasis, chronic respiratory failure on 3L NC O2, HTN, HLD, sinus node dysfunction s/p pacemaker, CAD s/p balloon angioplasty 2017, SVT, GERD, BPH, RLS, depression, chronic back pain and others listed below [facility] from 12/17-12/22 in setting of sepsis 2/2 multifocal PNA, COPD exacerbation as well as pacemaker mediated tachycardia. During previous admission, was evaluated by cardiology and pacemaker was adjusted on 12/22 for pacemaker mediated tachycardia. Metoprolol succinate increased to 50mg BID. Echocardiogram performed 12/19/2023 revealed moderate concentric left ventricular perjury, no regional wall motion motives, LVEF normal at 60-65%, mild aortic valve sclerosis without stenosis, grade 1 diastolic dysfunction, pulmonary artery systolic pressure estimated be 35 mmHg which is the upper limit of normal. 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 Discussed with Cardiology team Cardiology recommends stopping losartan for now, resuming metoprolol succinate at 50mg daily, adding amlodipine 2.5mg daily, reducing tamsulosin to 0.4mg daily Cardiac monitoring. May need referral to EP for AVNRT ablation Elevated troponin CAD No chest pain Initial trop today 101 -> 178->375->>223 Likely demand ischemia in setting of above Echo today showed moderate LVH, EF 55-60%, LV motion normal, Grade 1 diastolic dysfunction, aortic valve sclerosis w/o stenosis Continue statin, plavix. COPD Chronic hypoxic resp failure on 3L NC O2 Chronic cough, at O2 baseline Afebrile, procal neg, lactate 2.1 CXR with cardiomegaly without pulmonary edema. Small left pleural effusion with mild left basilar densities which may represent atelectasis versus pneumonia Xopenex nebs, hypertonic saline nebs, Anoro Ellipta Continue supplemental O2 JOHN (acute kidney injury) Cr 1.51 (Baseline Cr: 1.1) Got IVF earlier Med adjustment as above. Monitor Hyperglycemia Prediabetes Glucose levels elevated Hgba1c 6.6 PCP to follow Anemia Hgb 13.8 on admission (likely element of hemoconcentration) Back to baseline today Continue folate, B12 supplementation BPH (benign prostatic hyperplasia) Continue tamsulosin, finasteride Hypothyroidism Continue levothyroxine DVT Ppx: SQ heparin Code status: DNR/DNI PCP: Elio Retana I spent a total of 55 minutes coordinating, documenting, and providing care for this patient excluding time spent in the performance of separately billed services. Admission and Anticipated Discharge Date Admission Date: January 21, 2024 Subjective Patient seen and examined. Reports history of orthostatic dizziness. Had a syncopal episode at [facility], hence presentation associated with lightheadedness Reports cough. No worsening chronic SOB No edema Denied fever, chills, nausea, vomiting, abd pain, diarrhea, hematochezia, hemoptysis, hematemesis, hematuria Physical Exam Constitutional: + well hydrated; no acute distress Eyes: PERRL, conjunctivae normal, anicteric sclerae ENMT: external ear and nose normal, oropharynx normal Respiratory: Decreased breath sounds, on nasal cannula Cardiovascular: Rate/Rhythm: regular rate and regular rhythm Gastrointestinal (Abdomen): normal bowel sounds, soft, nontender, no hepatosplenomegaly Neurologic: PERRL, EOMI, accommodation nl, no face palsy, no dysarthria Psychiatric: A+Ox3, euthymic affect Results & Data Results & Data Vital Signs (Past 12 Hours) Vital Signs Pulse Pulse Resp BP Pulse Ox O2 Del Method O2 Flow Rate 01/22/24 16:05 94 Nasal Cannula 3 01/22/24 11:00 61 14 145/77 H 01/22/24 10:00 60 16 144/73 H 01/22/24 09:00 60 18 01/22/24 08:45 Nasal Cannula 3 01/22/24 08:26 64 16 171/80 H 96 Nasal Cannula 3 01/22/24 08:00 60 16 147/82 H 01/22/24 07:16 61 01/22/24 07:10 81 17 97 Nasal Cannula 2 01/22/24 06:00 82 15 153/84 H 95 Nasal Cannula 3 01/22/24 06:00 65 20 153/84 H Laboratory Results Abnormal lab results 01/21/24 01/21/24 01/21/24 Range/Units 16:14 17:17 17:20 RBC (4.70-6.10) M/uL Hgb (14.0-18.0) g/dl Hct (42.0-52.0) % RDW Std Deviation (36.4-46.3) fL Creatinine (0.6-1.4) mg/dl Glucose (70-99(Fasting)) mg/dl Lactate 2.1 H* (0.4-2.0) mmol/L Calcium (8.6-10.3) mg/dl Troponin I High Sens 101.4 H* 178.0 H* D (0-20) pg/ml TSH 5.140 H (0.300-4.500) uIu/ml Urine Protein (Negative) Ur Leukocyte Esterase (Negative) 01/21/24 01/22/24 01/22/24 Range/Units 21:10 03:19 06:25 RBC 3.85 L (4.70-6.10) M/uL Hgb 12.0 L (14.0-18.0) g/dl Hct 36.5 L (42.0-52.0) % RDW Std Deviation 46.9 H (36.4-46.3) fL Creatinine 1.41 H (0.6-1.4) mg/dl Glucose 104 H (70-99(Fasting)) mg/dl Lactate (0.4-2.0) mmol/L Calcium 8.5 L (8.6-10.3) mg/dl Troponin I High Sens 375.0 H* D 306.9 H* (0-20) pg/ml TSH (0.300-4.500) uIu/ml Urine Protein Trace H (Negative) Ur Leukocyte Esterase Trace H (Negative) 01/22/24 Range/Units 08:19 RBC (4.70-6.10) M/uL Hgb (14.0-18.0) g/dl Hct (42.0-52.0) % RDW Std Deviation (36.4-46.3) fL Creatinine (0.6-1.4) mg/dl Glucose (70-99(Fasting)) mg/dl Lactate (0.4-2.0) mmol/L Calcium (8.6-10.3) mg/dl Troponin I High Sens 223.7 H* D (0-20) pg/ml TSH (0.300-4.500) uIu/ml Urine Protein (Negative) Ur Leukocyte Esterase (Negative)
[2024-01-22] MEDS: HEPARIN SOD 5,000 UNIT/0.5 ML VIAL SQ SCH (21:13)
--- NOTE | 2024-01-23 06:48 | Electrocardiogram Report ---
Test Reason : Blood Pressure : / mmHG Vent. Rate : 066 BPM Atrial Rate : 066 BPM P-R Int : 254 ms QRS Dur : 094 ms QT Int : 434 ms P-R-T Axes : 000 -18 120 degrees QTc Int : 454 ms Atrial-paced rhythm with prolonged AV conduction Left ventricular hypertrophy with repolarization abnormality ( R in aVL ) Abnormal ECG When compared with ECG of 20-DEC-2023 17:13, Ventricular pacing is no longer present Vent. rate has decreased BY 32 BPM Confirmed by Ramesh Lind ([id number]) on 01/23/2024 6:47:25 AM Referred By: Confirmed By:Ramesh Lind
[2024-01-23 07:03] LABS: Hematocrit (blood only) 35.4 % (42.0-52.0); Hemoglobin 11.7 g/dl (14.0-18.0); Mean Corpuscular Hemoglobin 31.1 pg (25.0-34.0); Mean Corpuscular Hgb Conc 33.1 g/dL (32.0-36.0); Mean Corpuscular Volume 94.1 fL (80.0-100.0); Mean Platelet Volume 10.5 fL (9.4-12.4); Platelet Count 191 K/uL (130-400); RDW Coefficient of Variation 13.5 % (11.5-14.5); Red Blood Count 3.76 M/uL (4.70-6.10); White Blood Count 6.59 K/ul (4.8-10.8)
[2024-01-23 07:40] LABS: Calcium 8.4 mg/dl (8.6-10.3); Potassium 3.9 mmol/L (3.5-5.1)
[2024-01-23 07:46] LABS: BUN Creatinine Ratio 13.9 (10-20); Creatinine Clr Calc Pharmacy 60.3 ml/min; Est GFR (African American) 70.7 ml/min
[2024-01-23] MEDS: TAMSULOSIN HCL 0.4 MG CAP PO SCH (08:32)
--- NOTE | 2024-01-23 10:22 | Cardiology Progress Note ---
Date of Service January 23, 2024 Assessment & Plan (1) Orthostatic hypotension: (2) AVNRT (AV pola re-entry tachycardia): (3) Elevated troponin: (4) ASCVD (arteriosclerotic cardiovascular disease): (5) HTN, goal below 130/80: (6) Dyslipidemia, goal LDL below 70: Plan Complex 78-year-old male admitted following an episode of syncope. History most suggestive of symptomatic orthostatic hypotension in setting of multiple medications as well as limited oral intake. Patient initially examined as mildly hypovolemic. Pacemaker interrogation reviewed with electrophysiology; likely AVNRT. LV function preserved. Recommendations: 1. Continue Metoprolol succinate (50 mg daily), Amlodipine (2.5 mg/day), clopidogrel (75 mg/day), and atorvastatin (80 mg/day) 2. Tamsulosin decreased to 0.4 mg/day this admission 3. Losartan discontinued this admission 4. Increase free water intake advised. 5. Outpatient EP referral, RE: AVNRT 6. ? rehabilitation stay I spent a total of 26 minutes on the date of service in preparation, delivery, and documentation of the care provided to this patient excluding any time spent in the performance of separately billed services. This visit was a split-shared visit with the substantive portion of the medical decision making performed by the supervising rail crew member/billing provider. Admission and Anticipated Discharge Date Admission Date: January 21, 2024 Supervising Physician Co-Signing Physician Notes Patient seen and examined, personally reviewed. Assessment and plan as outlined above. Care and management discussed with advanced provider and personally endorsed. 78-year-old male with past hospitalizations with near syncope with labile hypertension, paroxysmal atrial tachycardia, orthostasis as above Initial concerns raised regarding pacemaker mediated tachycardia not confirmed by recent interrogation Suspect AVNRT induced by transient hypotension rather than the reverse Patient has improved with reduction and adjustment in medical therapies Plan as outlined above I spent a total of 20 minutes on the date of service in preparation, delivery, and documentation of the care Subjective Patient seen and examined. Chart, medications, telemetry reviewed. Patient notes feeling a little tired this morning but otherwise, overall, much improved. Notes ambulating to and from the bathroom in the room without symptoms. No chest pain. No dyspnea. No palpitations. Telemetry: Paced rhythm with heart rates predominantly in the 70s and 80s. January 22, 2024 TTE Interpretation Summary ([facility], Dr. Rosenthal): No significant change compared to prior. Normal LV size. Moderate concentric LVH. Normal LV wall motion. EF 55 to 60%. Grade 1 diastolic dysfunction. Moderate aortic valve sclerosis without significant stenosis. Mild aortic regurgitation. Review of Systems Review of Systems: Complete Review of Systems is as stated above, negative, or noncontributory. Physical Exam Physical Exam: General: A&Ox3. NAD. HENT: Normocephalic. Atraumatic. Eyes: PER. Conjunctiva pink, sclera clear. Neck: No carotid bruits. No JVD. No HJR. Heart: RRR. Soft systolic ejection murmur. No diastolic murmur. No rub. No gallop. PMI is nondisplaced. Lungs: Diminished. Decreased. Scattered expiratory wheezing and rhonchi. Abdomen: +BS. Soft. Nontender. No masses or organomegaly. Extremities: No clubbing, cyanosis, or edema. Limited neurological examination is without focal deficits. Pulses: radial=2/4, posterior tibial=2/4. Results & Data Vital Signs (Past 12 Hours) Vital Signs Temp Pulse Pulse Resp BP BP BP 01/23/24 10:09 36.5 C 84 17 119/87 01/23/24 08:16 36.9 C 60 16 131/81 01/23/24 07:00 67 01/23/24 02:43 36.6 C 67 18 119/63 01/22/24 23:33 01/22/24 22:36 36.5 C 65 18 122/66 Pulse Ox O2 Del Method O2 Flow Rate 01/23/24 10:09 95 Nasal Cannula 2 01/23/24 08:16 90 Room Air 01/23/24 07:00 01/23/24 02:43 94 Nasal Cannula 01/22/24 23:33 Nasal Cannula 3 01/22/24 22:36 95 Laboratory Results CBC 01/23/24 Range/Units 06:21 WBC 6.59 (4.8-10.8) K/ul RBC 3.76 L (4.70-6.10) M/uL Hgb 11.7 L (14.0-18.0) g/dl Hct 35.4 L (42.0-52.0) % Plt Count 191 (130-400) K/uL Comprehensive Metabolic Panel 01/23/24 Range/Units 06:21 Sodium 140 (136-145) mmol/L Potassium 3.9 (3.5-5.1) mmol/L Chloride 108 H (98-107) mmol/L Carbon Dioxide 26 (21-32) mmol/L BUN 16 (6-23) mg/dl Creatinine 1.15 (0.6-1.4) mg/dl Glucose 141 H (70-99(Fasting)) mg/dl Calcium 8.4 L (8.6-10.3) mg/dl Intake and Output 01/22/24 01/23/24 01/23/24 22:59 06:59 14:59 Intake Total 120 / 1240 120 / 1240 Output Total 200 / 450 250 / 450 Balance -80 / 790 -130 / 790 Intake: Oral 120 / 240 120 / 240 Output: Urine 200 / 450 250 / 450 Other: Weight 92.1 kg
--- NOTE | 2024-01-23 10:26 | Hospitalist Progress Note ---
Date of Service January 23, 2024 Assessment & Plan (1) Syncope and collapse: (2) JOHN (acute kidney injury): (3) COPD (chronic obstructive pulmonary disease): (4) Chronic hypoxic respiratory failure: (5) Chronic bronchitis: (6) Pacemaker: (7) CAD (coronary artery disease): (8) BPH w urinary obs/LUTS: (9) BRENDA (obstructive sleep apnea): Plan 78yo M with a PMH of COPD, asthma, bronchiectasis, chronic respiratory failure on 3L [place] O2, HTN, HLD, sinus node dysfunction s/p pacemaker, CAD s/p balloon angioplasty 2017, SVT, GERD, BPH, RLS, depression, chronic back pain and others listed below [facility] Recently hospitalized from 12/17-12/22 in setting of sepsis 2/2 multifocal PNA, COPD exacerbation as well as pacemaker mediated tachycardia. During previous admission, was evaluated by cardiology and pacemaker was adjusted on 12/22 for pacemaker mediated tachycardia. Metoprolol succinate increased to 50mg BID. Echocardiogram performed 12/19/2023 revealed moderate concentric left ventricular perjury, no regional wall motion motives, LVEF normal at 60-65%, mild aortic valve sclerosis without stenosis, grade 1 diastolic dysfunction, pulmonary artery systolic pressure estimated be 35 mmHg which is the upper limit of normal. 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 Discussed with Cardiology team Cardiology recommended stopping losartan for now, resuming metoprolol succinate at 50mg daily, adding amlodipine 2.5mg daily, reducing tamsulosin to 0.4mg daily BP controlled May need referral to EP for AVNRT ablation PT/OT eval. Patient open to placement. CM aware Elevated troponin CAD No chest pain Initial trop today 101 -> 178->375->>223 Likely demand ischemia in setting of above Echo today showed moderate LVH, EF 55-60%, LV motion normal, Grade 1 diastolic dysfunction, aortic valve sclerosis w/o stenosis Continue statin, plavix. COPD Chronic hypoxic resp failure on 3L [place] O2 Chronic cough, at O2 baseline Afebrile, procal neg, lactate 2.1 CXR with cardiomegaly without pulmonary edema. Small left pleural effusion with mild left basilar densities which may represent atelectasis versus pneumonia Xopenex nebs, hypertonic saline nebs, Anoro Ellipta Continue supplemental O2 JOHN (acute kidney injury) Cr 1.51 (Baseline Cr: 1.1) JOHN resolved Hyperglycemia Prediabetes Glucose levels elevated Hgba1c 6.6 PCP to follow Anemia Hgb 13.8 on admission (likely element of hemoconcentration) Back to baseline today Continue folate, B12 supplementation BPH (benign prostatic hyperplasia) Continue tamsulosin, finasteride Hypothyroidism Continue levothyroxine DVT Ppx: SQ heparin Code status: DNR/DNI PCP: Elio Retana I spent a total of 45 minutes coordinating, documenting, and providing care for this patient excluding time spent in the performance of separately billed services. Admission and Anticipated Discharge Date Admission Date: January 21, 2024 Subjective Patient seen and examined Reported some brief episode of dizziness when walking with OT that quickly resolved Denied any chest pain, SOB Reports mild cough Denied nausea, vomiting, diarrhea Physical Exam Constitutional: + well hydrated; no acute distress Eyes: PERRL, conjunctivae normal, anicteric sclerae ENMT: external ear and nose normal, oropharynx normal Respiratory: On nasal cannula, diminished breath sounds Cardiovascular: Rate/Rhythm: regular rate and regular rhythm Gastrointestinal (Abdomen): normal bowel sounds, soft, nontender, no hepatosplenomegaly Musculoskeletal: No pedal edema Neurologic: PERRL, EOMI, accommodation nl, no face palsy, no dysarthria Psychiatric: A+Ox3, euthymic affect Results & Data Results & Data Vital Signs (Past 12 Hours) Vital Signs Temp Pulse Pulse Resp BP BP BP 01/23/24 10:09 36.5 C 84 17 119/87 01/23/24 08:16 36.9 C 60 16 131/81 01/23/24 08:00 01/23/24 07:00 67 01/23/24 02:43 36.6 C 67 18 119/63 01/22/24 23:33 01/22/24 22:36 36.5 C 65 18 122/66 Pulse Ox O2 Del Method O2 Flow Rate 01/23/24 10:09 95 Nasal Cannula 2 01/23/24 08:16 90 Room Air 01/23/24 08:00 Room Air 01/23/24 07:00 01/23/24 02:43 94 Nasal Cannula 01/22/24 23:33 Nasal Cannula 3 01/22/24 22:36 95 Laboratory Results Abnormal lab results 01/23/24 Range/Units 06:21 RBC 3.76 L (4.70-6.10) M/uL Hgb 11.7 L (14.0-18.0) g/dl Hct 35.4 L (42.0-52.0) % Chloride 108 H (98-107) mmol/L Glucose 141 H (70-99(Fasting)) mg/dl Calcium 8.4 L (8.6-10.3) mg/dl
--- NOTE | 2024-01-24 10:04 | Cardiology Progress Note ---
Date of Service January 24, 2024 Assessment & Plan (1) Orthostatic hypotension: (2) AVNRT (AV pola re-entry tachycardia): (3) Elevated troponin: (4) ASCVD (arteriosclerotic cardiovascular disease): (5) HTN, goal below 130/80: (6) Dyslipidemia, goal LDL below 70: Plan Complex 78-year-old male admitted following an episode of syncope. History most suggestive of symptomatic orthostatic hypotension in setting of multiple medications as well as limited oral intake. Patient initially examined as mildly hypovolemic. Pacemaker interrogation reviewed with electrophysiology; likely AVNRT. LV function preserved. ? whether lack of supplemental oxygen may have been a precipitating factor. Recommendations: 1. Continue Metoprolol succinate (50 mg daily), Amlodipine (2.5 mg/day), clopidogrel (75 mg/day), and atorvastatin (80 mg/day) 2. Tamsulosin decreased to 0.4 mg/day this admission 3. Losartan discontinued this admission 4. Increase free water intake advised. 5. Supplemental oxygen use, as prescribed, encouraged. 6. General Cardiology follow-up in [place] after rehabilitation stay. 7. Outpatient EP referral, RE: AVNRT I spent a total of 25 minutes on the date of service in preparation, delivery, and documentation of the care provided to this patient excluding any time spent in the performance of separately billed services. This visit was a split-shared visit with the substantive portion of the medical decision making performed by the supervising quality project manager/billing provider. Admission and Anticipated Discharge Date Admission Date: January 21, 2024 Supervising Physician Co-Signing Physician Notes Patient seen and examined, personally reviewed. Assessment and plan as outlined above. Care and management discussed with advanced provider and personally endorsed. Patient clinically improved in hospital Agree with rehab stay Patient with notable oxygen requirements as outpatient. Has been using sporadically when traveling to appointments etc. Emphasized need for oxygen use Cardiac recommendations as above. Will sign off I spent a total of 20 minutes on the date of service in preparation, delivery, and documentation of the care Subjective Patient seen and examined. Chart, medications, telemetry reviewed. "I feel wonderful, so much better." No complaints or concerns. Telemetry: Paced rhythm, 60-80 bpm. January 22, 2024 TTE Interpretation Summary ([facility], Dr. Rosenthal): No significant change compared to prior. Normal LV size. Moderate concentric LVH. Normal LV wall motion. EF 55 to 60%. Grade 1 diastolic dysfunction. Moderate aortic valve sclerosis without significant stenosis. Mild aortic regurgitation Review of Systems Review of Systems: Complete Review of Systems is as stated above, negative, or noncontributory. Physical Exam Physical Exam: General: A&Ox3. NAD. HENT: Normocephalic. Atraumatic. Eyes: PER. Conjunctiva pink, sclera clear. Neck: No carotid bruits. No JVD. No HJR. Heart: RRR. Soft systolic ejection murmur. No diastolic murmur. No rub. No gallop. PMI is nondisplaced. Lungs: Diminished. Decreased. Scattered expiratory wheezing and rhonchi. Abdomen: +BS. Soft. Nontender. No masses or organomegaly. Extremities: No clubbing, cyanosis, or edema. Limited neurological examination is without focal deficits. Pulses: radial=2/4, posterior tibial=2/4. Results & Data Vital Signs (Past 12 Hours) Vital Signs Temp Pulse Pulse Resp BP BP Pulse Ox 01/24/24 07:47 37.0 C 76 18 149/84 H 94 01/24/24 03:08 37.0 C 66 18 139/68 93 01/23/24 23:42 36.9 C 73 18 129/75 95 01/23/24 22:23 60 O2 Del Method O2 Flow Rate 01/24/24 07:47 Nasal Cannula 2 01/24/24 03:08 Nasal Cannula 3.0 01/23/24 23:42 Nasal Cannula 3.0 01/23/24 22:23 Laboratory Results Intake and Output 01/23/24 01/24/24 01/24/24 22:59 06:59 14:59 Intake Total 240 / 940 100 / 940 Output Total 200 / 600 Balance 240 / 340 -100 / 340 Intake: Oral 240 / 940 100 / 940 Output: Urine 200 / 600 Other: # Unmeasured Voids 1 Weight 89.6 kg Weight Measurement Method Standing Scale
--- NOTE | 2024-01-24 10:59 | Hospitalist Progress Note ---
Date of Service January 24, 2024 Assessment & Plan (1) Syncope and collapse: (2) JOHN (acute kidney injury): (3) COPD (chronic obstructive pulmonary disease): (4) Chronic hypoxic respiratory failure: (5) Chronic bronchitis: (6) Pacemaker: (7) CAD (coronary artery disease): (8) BPH w urinary obs/LUTS: (9) BRENDA (obstructive sleep apnea): Plan 78yo M with a PMH of COPD, asthma, bronchiectasis, chronic respiratory failure on 3L [place] O2, HTN, HLD, sinus node dysfunction s/p pacemaker, CAD s/p balloon angioplasty 2017, SVT, GERD, BPH, RLS, depression, chronic back pain and others listed below [facility] from [facility]-12/22 in setting of sepsis 2/2 multifocal PNA, COPD exacerbation as well as pacemaker mediated tachycardia. During previous admission, was evaluated by cardiology and pacemaker was adjusted on 12/22 for pacemaker mediated tachycardia. Metoprolol succinate increased to 50mg BID. Echocardiogram performed 12/19/2023 revealed moderate concentric left ventricular perjury, no regional wall motion motives, LVEF normal at 60-65%, mild aortic valve sclerosis without stenosis, grade 1 diastolic dysfunction, pulmonary artery systolic pressure estimated be 35 mmHg which is the upper limit of normal. 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 Discussed with Cardiology team Cardiology recommended stopping losartan for now, resuming metoprolol succinate at 50mg daily, adding amlodipine 2.5mg daily, reducing tamsulosin to 0.4mg daily which has been done BP controlled Still has positive orthostatic hypotension today. Will hold off amlodipine and encourage po fluid intake Will monitor May need referral to EP for AVNRT ablation PT/OT eval noted Elevated troponin CAD No chest pain Initial trop 101 -> 178->375->>223 Likely demand ischemia in setting of above Echo today showed moderate LVH, EF 55-60%, LV motion normal, Grade 1 diastolic dysfunction, aortic valve sclerosis w/o stenosis Continue statin, plavix. COPD Chronic hypoxic resp failure on 3L [place] O2 Chronic cough, at O2 baseline Afebrile, procal neg, lactate 2.1 CXR with cardiomegaly without pulmonary edema. Small left pleural effusion with mild left basilar densities which may represent atelectasis versus pneumonia Xopenex nebs, hypertonic saline nebs, Anoro Ellipta Continue supplemental O2 JOHN (acute kidney injury) Cr 1.51 (Baseline Cr: 1.1) JOHN resolved Hyperglycemia Prediabetes Glucose levels elevated Hgba1c 6.6 PCP to follow Anemia Hgb 13.8 on admission (likely element of hemoconcentration) Back to baseline today Continue folate, B12 supplementation BPH (benign prostatic hyperplasia) Continue tamsulosin, finasteride Hypothyroidism Continue levothyroxine DVT Ppx: SQ heparin Code status: DNR/DNI PCP: Elio Retana CM working on placement I spent a total of 35 minutes coordinating, documenting, and providing care for this patient excluding time spent in the performance of separately billed services. Admission and Anticipated Discharge Date Admission Date: January 21, 2024 Subjective Patient seen and examined Denied any complaints today Physical Exam Constitutional: + well hydrated; no acute distress Eyes: PERRL, conjunctivae normal, anicteric sclerae ENMT: external ear and nose normal, oropharynx normal Respiratory: Diminished breath sounds, on nasal cannula Cardiovascular: Rate/Rhythm: regular rate and regular rhythm Gastrointestinal (Abdomen): normal bowel sounds, soft, nontender, no hepatosplenomegaly Musculoskeletal: No pedal edema Neurologic: PERRL, EOMI, accommodation nl, no face palsy, no dysarthria Psychiatric: A+Ox3, euthymic affect Results & Data Results & Data Vital Signs (Past 12 Hours) Vital Signs Temp Pulse Resp BP BP Pulse Ox O2 Del Method 01/24/24 10:26 36.5 C 62 16 97/47 L 95 Nasal Cannula 01/24/24 07:47 37.0 C 76 18 149/84 H 94 Nasal Cannula 01/24/24 03:08 37.0 C 66 18 139/68 93 Nasal Cannula 01/23/24 23:42 36.9 C 73 18 129/75 95 Nasal Cannula O2 Flow Rate 01/24/24 10:26 3 01/24/24 07:47 2 01/24/24 03:08 3.0 01/23/24 23:42 3.0
--- NOTE | 2024-01-24 18:10 | Electrocardiogram Report ---
Test Reason : Blood Pressure : / mmHG Vent. Rate : 061 BPM Atrial Rate : 061 BPM P-R Int : 262 ms QRS Dur : 104 ms QT Int : 448 ms P-R-T Axes : 049 -18 142 degrees QTc Int : 450 ms Atrial-paced rhythm with prolonged AV conduction Left ventricular hypertrophy with repolarization abnormality ( R in aVL ) Possible Inferior infarct Possible Anteroseptal infarct Abnormal ECG When compared with ECG of 21-JAN-2024 16:13, No significant change was found Confirmed by Ramesh Lind ([id number]) on 01/24/2024 6:09:46 PM Referred By: REFERRED SELF Confirmed By:Ramesh Lind
[2024-01-24] MEDS: SODIUM CHLORIDE 0.65% NA SOLN 45 ML (OCEAN) PRN (21:17)
[2024-01-25 07:53] LABS: BUN Creatinine Ratio 13.5 (10-20); Creatinine Clr Calc Pharmacy 51.4 ml/min; Est GFR (African American) 59.3 ml/min; Est GFR (Non-African American) 51.2 ml/min; Potassium 3.9 mmol/L (3.5-5.1)
--- NOTE | 2024-01-25 10:16 | Hospitalist Progress Note ---
Date of Service January 25, 2024 Assessment & Plan (1) Syncope and collapse: (2) JOHN (acute kidney injury): (3) COPD (chronic obstructive pulmonary disease): (4) Chronic hypoxic respiratory failure: (5) Chronic bronchitis: (6) Pacemaker: (7) CAD (coronary artery disease): (8) BPH w urinary obs/LUTS: (9) BRENDA (obstructive sleep apnea): Plan 78yo M with a PMH of COPD, asthma, bronchiectasis, chronic respiratory failure on 3L [place] O2, HTN, HLD, sinus node dysfunction s/p pacemaker, CAD s/p balloon angioplasty 2017, SVT, GERD, BPH, RLS, depression, chronic back pain and others listed below [facility] in setting of sepsis 2/2 multifocal PNA, COPD exacerbation as well as pacemaker mediated tachycardia. During previous admission, was evaluated by cardiology and pacemaker was adjusted on 12/22 for pacemaker mediated tachycardia. Metoprolol succinate increased to 50mg BID. Echocardiogram performed 12/19/2023 revealed moderate concentric left ventricular perjury, no regional wall motion motives, LVEF normal at 60-65%, mild aortic valve sclerosis without stenosis, grade 1 diastolic dysfunction, pulmonary artery systolic pressure estimated be 35 mmHg which is the upper limit of normal. 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 Discussed with Cardiology team Cardiology recommended stopping losartan for now, resuming metoprolol succinate at 50mg daily, adding amlodipine 2.5mg daily, reducing tamsulosin to 0.4mg daily which has been done BP controlled Amlodipine 2.5mg initially started has been stopped Educated again on getting up slowly and in stages with his walker Monitor May need referral to EP for AVNRT ablation PT/OT eval noted Elevated troponin CAD No chest pain Initial trop 101 -> 178->375->>223 Likely demand ischemia in setting of above Echo today showed moderate LVH, EF 55-60%, LV motion normal, Grade 1 diastolic dysfunction, aortic valve sclerosis w/o stenosis Continue statin, plavix. COPD Chronic hypoxic resp failure on 3L [place] O2 Chronic cough, at O2 baseline Afebrile, procal neg, lactate 2.1 CXR with cardiomegaly without pulmonary edema. Small left pleural effusion with mild left basilar densities which may represent atelectasis versus pneumonia Xopenex nebs, hypertonic saline nebs, Anoro Ellipta Continue supplemental O2 JOHN (acute kidney injury) Cr 1.51 (Baseline Cr: 1.1) JOHN resolved Hyperglycemia Prediabetes Glucose levels elevated Hgba1c 6.6 PCP to follow Anemia Hgb 13.8 on admission (likely element of hemoconcentration) Back to baseline today Continue folate, B12 supplementation BPH (benign prostatic hyperplasia) Continue tamsulosin, finasteride Hypothyroidism Continue levothyroxine DVT Ppx: SQ heparin Code status: DNR/DNI PCP: Elio Retana CM working on placement I spent a total of 35 minutes coordinating, documenting, and providing care for this patient excluding time spent in the performance of separately billed services. Admission and Anticipated Discharge Date Admission Date: January 21, 2024 Subjective Patient seen and examined Reported brief episode of dizziness that lasted a few seconds on getting up earlier Denied any new complaints today Physical Exam Constitutional: + well hydrated; no acute distress Eyes: PERRL, conjunctivae normal, anicteric sclerae ENMT: external ear and nose normal, oropharynx normal Respiratory: On nasal cannula, diminished breath sounds Cardiovascular: Rate/Rhythm: regular rate and regular rhythm Gastrointestinal (Abdomen): normal bowel sounds, soft, nontender, no hepatosplenomegaly Musculoskeletal: No pedal edema Neurologic: PERRL, EOMI, accommodation nl, no face palsy, no dysarthria Psychiatric: A+Ox3, euthymic affect Results & Data Results & Data Vital Signs (Past 12 Hours) Vital Signs Temp Pulse Pulse Resp BP BP Pulse Ox 01/25/24 09:33 105/61 01/25/24 02:57 36.6 C 66 18 139/74 94 01/24/24 23:00 36.8 C 75 19 127/69 95 01/24/24 23:00 60 O2 Del Method O2 Flow Rate 01/25/24 09:33 01/25/24 02:57 Nasal Cannula 3 01/24/24 23:00 Nasal Cannula 3 01/24/24 23:00 Laboratory Results Abnormal lab results 01/25/24 Range/Units 07:14 Glucose 115 H (70-99(Fasting)) mg/dl
[2024-01-25] MEDS: ACETAMINOPHEN 325 MG TAB PO PRN (22:36)
--- NOTE | 2024-01-26 11:10 | Hospitalist Progress Note ---
Date of Service January 26, 2024 Assessment & Plan (1) Syncope and collapse: (2) JOHN (acute kidney injury): (3) COPD (chronic obstructive pulmonary disease): (4) Chronic hypoxic respiratory failure: (5) Chronic bronchitis: (6) Pacemaker: (7) CAD (coronary artery disease): (8) BPH w urinary obs/LUTS: (9) BRENDA (obstructive sleep apnea): Plan 78yo M with a PMH of COPD, asthma, bronchiectasis, chronic respiratory failure on 3L [place] O2, HTN, HLD, sinus node dysfunction s/p pacemaker, CAD s/p balloon angioplasty 2017, SVT, GERD, BPH, RLS, depression, chronic back pain and others listed below [facility] in setting of sepsis 2/2 multifocal PNA, COPD exacerbation as well as pacemaker mediated tachycardia. During previous admission, was evaluated by cardiology and pacemaker was adjusted on 12/22 for pacemaker mediated tachycardia. Metoprolol succinate increased to 50mg BID. Echocardiogram performed 12/19/2023 revealed moderate concentric left ventricular perjury, no regional wall motion motives, LVEF normal at 60-65%, mild aortic valve sclerosis without stenosis, grade 1 diastolic dysfunction, pulmonary artery systolic pressure estimated be 35 mmHg which is the upper limit of normal. 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 Discussed with Cardiology team Cardiology recommended stopping losartan for now, resuming metoprolol succinate at 50mg daily, adding amlodipine 2.5mg daily, reducing tamsulosin to 0.4mg daily which has been done BP controlled Amlodipine 2.5mg initially started has been stopped Monitor May need referral to EP for AVNRT ablation PT/OT eval noted Elevated troponin CAD No chest pain Initial trop 101 -> 178->375->>223 Likely demand ischemia in setting of above Echo today showed moderate LVH, EF 55-60%, LV motion normal, Grade 1 diastolic dysfunction, aortic valve sclerosis w/o stenosis Continue statin, plavix. COPD Chronic hypoxic resp failure on 3L [place] O2 Chronic cough, at O2 baseline Afebrile, procal neg, lactate 2.1 CXR with cardiomegaly without pulmonary edema. Small left pleural effusion with mild left basilar densities which may represent atelectasis versus pneumonia Xopenex nebs, hypertonic saline nebs, Anoro Ellipta Continue supplemental O2 JOHN (acute kidney injury) Cr 1.51 (Baseline Cr: 1.1) JOHN resolved Hyperglycemia Prediabetes Glucose levels elevated Hgba1c 6.6 PCP to follow Anemia Hgb 13.8 on admission (likely element of hemoconcentration) Back to baseline today Continue folate, B12 supplementation BPH (benign prostatic hyperplasia) Continue tamsulosin, finasteride Hypothyroidism Continue levothyroxine DVT Ppx: SQ heparin Code status: DNR/DNI PCP: Elio Retana CM working on placement I spent a total of 30 minutes coordinating, documenting, and providing care for this patient excluding time spent in the performance of separately billed services. Admission and Anticipated Discharge Date Admission Date: January 21, 2024 Subjective Patient seen and examined Denied any new complaints today Physical Exam Constitutional: + well hydrated; no acute distress Eyes: PERRL, conjunctivae normal, anicteric sclerae ENMT: external ear and nose normal, oropharynx normal Respiratory: On nasal cannula, diminished breath sounds Cardiovascular: Rate/Rhythm: regular rate and regular rhythm Gastrointestinal (Abdomen): normal bowel sounds, soft, nontender, no hepatosplenomegaly Musculoskeletal: No pedal edema Neurologic: PERRL, EOMI, accommodation nl, no face palsy, no dysarthria Psychiatric: A+Ox3, euthymic affect Results & Data Results & Data Vital Signs (Past 12 Hours) Vital Signs Temp Pulse Pulse Resp BP Pulse Ox O2 Del Method 01/26/24 07:57 60 01/26/24 07:44 36.5 C 81 18 125/72 92 Nasal Cannula 01/26/24 03:11 36.8 C 62 18 133/66 94 Nasal Cannula O2 Flow Rate 01/26/24 07:57 01/26/24 07:44 2 01/26/24 03:11 3 Laboratory Results Abnormal lab results 01/25/24 Range/Units 16:00 POC Glucose 113 H (70-99) mg/dl
--- NOTE | 2024-01-27 11:46 | Hospitalist Progress Note ---
Date of Service January 27, 2024 Assessment & Plan Admission and Anticipated Discharge Date Admission Date: January 21, 2024 Results & Data Results & Data Vital Signs (Past 12 Hours) Vital Signs Temp Pulse Resp BP BP Pulse Ox O2 Del Method 01/27/24 11:28 36.6 C 70 20 117/73 95 Nasal Cannula 01/27/24 09:15 117 H 103/79 01/27/24 08:02 36.8 C 91 H 18 114/61 93 Nasal Cannula 01/27/24 03:32 36.7 C 75 18 140/86 93 Room Air O2 Flow Rate 01/27/24 11:28 2 01/27/24 09:15 01/27/24 08:02 01/27/24 03:32
--- NOTE | 2024-01-27 14:49 | Discharge Summary ---
Date of Service January 27, 2024 Admission HPI Per Admitting Provider This is a 78yo M with a PMH of COPD, asthma, bronchiectasis, chronic respiratory failure on 3L NC O2, HTN, HLD, sinus node dysfunction s/p pacemaker, CAD s/p balloon angioplasty 2017, SVT, GERD, BPH, RLS, depression, chronic back pain and others listed below presented to ED following syncopal [facility] this afternoon. Patient was recently admitted to our service from 12/17-12/22 in setting of sepsis 2/2 multifocal PNA, COPD exacerbation as well as pacemaker mediated tachycardia. During previous admission, was evaluated by cardiology and pacemaker was adjusted on 12/22 for pacemaker mediated tachycardia. Metoprolol succinate increased to 50mg BID. Echocardiogram performed 12/19/2023 revealed moderate concentric left ventricular perjury, no regional wall motion motives, LVEF normal at 60-65%, mild aortic valve sclerosis without stenosis, grade 1 diastolic dysfunction, pulmonary artery systolic pressure estimated be 35 mmHg which is the upper limit of normal. Since discharge back home, patient has felt generally weak and intermittently dizzy. States he feels fine when resting but when he stands up he feels immediately lightheaded. Endorsing episodes of syncope at home with most recent episode occurring in the parking lot of [facility] cardiology clinic today. Per chart review, try to get out of the car and fell to the ground with possible loss of consciousness. Per cards note, was significantly hypotensive upon repeat evaluation in the exam room. Pacemaker interrogation reviews episode of tachyarrhythmia around 2:00 PM lasting 5 minutes. Patient states he is taking medications but family had some concerns about accuracy of this in clinic visit this afternoon. Currently feeling okay at rest. No fever or chills. Appetite is unchanged. No chest pain, chronic shortness of breath on 3 L nasal cannula oxygen. No nausea, vomiting, abdominal pain, dysuria, diarrhea or constipation. Admission Exam Per Admitting Provider Constitutional: Alert oriented x 3; not in distress. Respiratory: Bilateral clear breath sounds Cardiovascular: RRR, no murmur, no edema Vessels: no JVD or carotid bruit Chest: normal inspection of chest Abdomen: normal bowel sounds, soft, nontender, no hepatosplenomegaly Musculoskeletal: no cyanosis or clubbing, extremities motor strength 5/5 Skin: no rashes, warm and dry normal turgor Neurologic: PERRL, EOMI, accommodation nl, no face palsy, no dysarthria CN's II- XI intact bilaterally and moves all extremities Psychiatric: A+Ox3, euthymic affect Principal Diagnosis Syncope Orthostatic hypotension AVNRT Acute kidney injury Discharge Exam Constitutional + well hydrated; no acute distress Eyes PERRL, conjunctivae normal, anicteric sclerae ENMT external ear and nose normal, oropharynx normal Respiratory On nasal cannula. Diminished breath sounds Cardiovascular Rate/Rhythm: regular rate and regular rhythm Gastrointestinal (Abdomen) normal bowel sounds, soft, nontender, no hepatosplenomegaly Musculoskeletal No pedal edema Neurologic PERRL, EOMI, accommodation nl, no face palsy, no dysarthria Psychiatric A+Ox3, euthymic affect Discharge Data Allergies Allergy/AdvReac Type Severity Reaction Status Date / Time adhesive Allergy Intermediate SKIN Verified 01/21/24 17:02 BLISTERS latex Allergy Unknown PER Verified 01/21/24 17:02 [facility] "PT DENIES" Consultations 01/21/24 17:23 ED Decision to Admit Stat 01/21/24 20:38 Consult Cardiology Routine Ordered Studies 01/21/24 16:38 CT head/brain wo con Stat Hospital Course (1) Syncope and collapse: (2) JOHN (acute kidney injury): (3) COPD (chronic obstructive pulmonary disease): (4) Chronic hypoxic respiratory failure: (5) Chronic bronchitis: (6) Pacemaker: (7) CAD (coronary artery disease): (8) BPH w urinary obs/LUTS: (9) BRENDA (obstructive sleep apnea): Plan 78yo M with a PMH of COPD, asthma, bronchiectasis, chronic respiratory failure on 3L NC O2, HTN, HLD, sinus node dysfunction s/p pacemaker, CAD s/p balloon angioplasty 2017, SVT, GERD, BPH, RLS, depression, chronic back pain and others listed below presented [facility] Recently hospitalized from 12/17-12/22 in setting of sepsis 2/2 multifocal PNA, COPD exacerbation as well as pacemaker mediated tachycardia. During previous admission, was evaluated by cardiology and pacemaker was adjusted on 12/22 for pacemaker mediated tachycardia. Metoprolol succinate increased to 50mg BID. Echocardiogram performed 12/19/2023 revealed moderate concentric left ventricular perjury, no regional wall motion motives, LVEF normal at 60-65%, mild aortic valve sclerosis without stenosis, grade 1 diastolic dysfunction, pulmonary artery systolic pressure estimated be 35 mmHg which is the upper limit of normal. Syncopal episodes Orthostatic hypotension AVNRT Episodes of syncope Pacemaker interrogated at cards noted AVNRT Was evaluated by Cardiology Cardiology recommended stopping losartan for now, resuming metoprolol succinate at 50mg daily and reducing tamsulosin to 0.4mg daily BP controlled Counseled patient regarding getting up slowly in stages May need referral to EP for AVNRT ablation Evaluated by PT/OT and rehab was initially recommended. However, functional stat us improved with PT/OT inpatient that patient is able to go home today Elevated troponin CAD No chest pain Initial trop 101 -> 178->375->>223 Likely demand ischemia in setting of above Echo showed moderate LVH, EF 55-60%, LV motion normal, Grade 1 diastolic dysfunction, aortic valve sclerosis w/o stenosis Continue statin, plavix. COPD Chronic hypoxic resp failure on 3L NC O2 Chronic cough, at O2 baseline Afebrile, procal neg, lactate 2.1 CXR with cardiomegaly without pulmonary edema. Small left pleural effusion with mild left basilar densities which may represent atelectasis versus pneumonia JOHN (acute kidney injury) Cr 1.51 (Baseline Cr: 1.1) JOHN resolved Hyperglycemia Prediabetes Glucose levels elevated Hgba1c 6.6 PCP to follow Anemia At baseline BPH (benign prostatic hyperplasia) Continue tamsulosin (reduced as above), finasteride Hypothyroidism Continue levothyroxine I called son and updated him Total Time Total Time Spent Total Time Spent (In Minutes): 35 Total Time Includes: Examination of the Patient, Discharge Planning, Medication Reconciliation and Other Discharge Plan Discharge Items Patient Disposition: Home - Home Health Services Reason For Visit: syncope Discharge Diagnosis: Syncope Orthostatic hypotension AVNRT Acute kidney injury Activity: Resume your previous activity Non-emergency contact: Primary Care Provider and Lieutenant Firefighter Call non-emergency contact if: you have any medication questions and your symptoms worsen Follow-up/Referrals: Guera Escudero MD [Primary Care Provider] - Diet: Heart Healthy and Low Sodium (2gm) Addtl Attending Provider Instructions: Mr Shaver You were admitted in the hospital and managed for the above listed diagnoses. You are being discharged home Please ensure you get up slowly and in stages as we discussed. Please use your walker. Please ensure follow up with your Primary Doctor and Lieutenant Firefighter. The following changes were made to your medications: -STOP TAKING LOSARTAN -Your metoprolol succinate was increased to 50mg daily. -Your Tamsulosin was reduced to 0.4mg daily It was a pleasure taking care of you. Pending Studies at Discharge: No Stand-Alone Forms: [facility], Smoking Cessation Medications and DC Order Prescriptions: Continued amitriptyline 25 mg tablet 50 mg PO HS gabapentin 300 mg capsule 300 mg PO TID Rx Instructions: Am, noon, hs duloxetine 30 mg capsule,delayed release(DR/EC) 30 mg PO QPM Rx Instructions: TOTAL DOSE 90 MG--TAKES WITH 60 MG CAP. duloxetine 60 mg capsule,delayed release(DR/EC) 60 mg PO QPM Rx Instructions: TOTAL DOSE 90 MG--TAKES WITH 30 MG CAP. atorvastatin 80 mg tablet 80 mg PO DAILY sennosides [senna] 8.6 mg Tablet 17.2 mg PO BID PRN (Reason: Constipation) clopidogrel 75 mg tablet 75 mg PO QAM acetaminophen [Tylenol Extra Strength] 500 mg Tablet 1,000 mg PO TID PRN (Reason: Pain) levothyroxine 75 mcg tablet 75 mcg PO DAILYBB pantoprazole 40 mg tablet,delayed release (DR/EC) 40 mg PO DAILY nitroglycerin 0.4 mg tablet, sublingual 0.4 mg sublingual DIRECTED PRN (Reason: Chest Pain) finasteride 5 mg tablet 5 mg PO DAILY Saline Nasal 0.65 % Aerosol,[place] 2 spray INTRANASAL QID ipratropium-albuterol 0.5 mg-3 mg(2.5 mg base)/3 mL Solution For Nebulization 3 ml INHALATION Q6H PRN (Reason: Shortness Of Breath) Anoro Ellipta 62.5-25 mcg/actuation Blister With Device 1 inh INHALATION DAILY Changed tamsulosin 0.4 mg capsule 0.4 mg PO QAM Qty: 30 0RF metoprolol succinate 25 mg tablet extended release 24 hr 50 mg PO QAM Qty: 60 0RF Discontinued losartan 50 mg tablet 50 mg PO DAILY Discharge Orders: Discharge Order (Routine); Ordered 01/27/24 Ordered By: Carmen Nj Admission Data Admit Date/Time: 01/21/24 18:34 Attending Provider: Carmen Nj I. Admaki Provider: Dariusz Price Primary Care Provider: Guera Escudero Other Providers: Harmeet Ballesteros; Kulwinder Spanglerab; Dariusz Price; Josh Rosenthal; Toño Chaves [facility] Other Interventions: Discharge Summary Assessment (RN) Last Done: 01/27/24 15:00
--- NOTE | 2024-01-27 17:03 | Electrocardiogram Report ---
Test Reason : Blood Pressure : */* mmHG Vent. Rate : 117 BPM Atrial Rate : 108 BPM P-R Int : * ms QRS Dur : 104 ms QT Int : 346 ms P-R-T Axes : * -15 141 degrees QTcB Int : 482 ms Accelerated Junctional rhythm with retrograde conduction Left ventricular hypertrophy with repolarization abnormality Inferior infarct , age undetermined Abnormal ECG When compared with ECG of 22-Jan-2024 08:40, Junctional rhythm has replaced Electronic atrial pacemaker Vent. rate has increased by [address] now depressed in Anterior leads Confirmed by Kristian Jensen ([id number]) on 01/27/2024 5:03:41 PM Referred By: REFERRED SELF Confirmed By: Kristian Jensen
== END 2024-01-27 15:59 | disposition home health service (06) | DRG 312 ==
LOC: ED 15:40 → EDINP 18:34 → SUATTDRO 18:34 → 2E 20:38

== ENCOUNTER 2024-02-24 14:25 | Inpatient (IN) ==
--- OUTSIDE RECORDS SUMMARY | 2024-02-24 14:31 | External Medical Summary | Summary of Care ---
Author Name Unknown Organization [facility] Address [address] [place] [address] Phone [phone] Care Team Providers Care Manager Critical Care Unit Name Role Phone Guera Jay MD Primary Care Prov ider Reason for Visit * Reason Onset Date Comments Fax 02/20/2024 Encounter Details Date Type Department Care Team (Late st Contact Info) Description 02/20/2024 Telephone Family Medicine [address] [phone] Guera Jay MD [address] [place] [address] [place] [address] Fax Allergies Active Allergy Reactions Criticality Noted Date Comments Adhesive Tape Other (Please comment) Low 03/09/2009 Affected area blisters. Latex 11/23/2014 Patient denies this allergy documented as of this encounter (statuses as of 02/20/2024) Medications Medication Sig Dispensed Refills Start Date End Date Status Acetaminophen 500 MG Oral Tablet Take 2 Tablets by mouth 3 times a day as needed for Pain, Moderate or Pain, Severe. Active Flutter DeviceIndications:B ronchiectasis without complication (HCC) Use for 10 min twice daily. pretreat with albuteorl. 1 Each 04/25/2022 Active Saline Nasal [place] 0.65 % Nasal Solution ([place]) Administer 1 [place] into nostril in the morning and 1 [place] at noon and 1 [place] in the evening and 1 [place] before bedtime. 30 mL 11/15/2022 Active Senna 8.6 MG Oral Tablet Take 2 Tablets by mouth in the morning and 2 Tablets before bedtime. 60 Tablet 1 11/15/2022 Active Additional Information Patient not taking.Reported on 01/21/2024 Anoro Ellipta 62.5-25 MCG/ACT Inhalation Aerosol Powder [...] 15 MINUTES 25 Tablet 11 07/22/2023 Active Additional Information Patient not taking.Reported on 01/21/2024 DULoxetine HCl 60 MG Oral Capsule Delayed Release Particles (Cymbalta)Indicatio ns:Current moderate episode of major depressive disorder without prior episode (HCC),Work related injury TAKE ONE CAPSULE BY MOUTH EVERY EVENING 90 Capsule 3 08/16/2023 Active Clopidogrel Bisulfate 75 MG Oral Tablet (pLAVix)Indications :Atherosclerosis of [place] coronary artery of [place] heart with angina pectoris (HCC) Take 1 [...] BEFORE BEDTIME 270 Capsule 1 01/06/2024 Active Ipratropium-Albuter ol 0.5-2.5 (3) MG/3ML Inhalation Solution (Duoneb) Inhale 1 vial via nebulizer every 6 hours as needed for Shortness of Breath. 360 mL 5 01/16/2024 Active Tamsulosin HCl 0.4 MG Oral Capsule (Flomax)Indications :BPH with obstruction/lower urinary tract symptoms Take 1 Capsule by mouth in the morning. 01/27/2024 Active Metoprolol Succinate ER 25 MG Oral Tablet Extended Release 24 Hour (toPROL XL) Take 2 Tablets by mouth in the morning. 01/27/2024 Active documented as of this encounter (statuses as of 02/20/2024) Active Problems Problem Noted Date Diagnosed Date [...] Overview: historical Dementia with mood disturbance 10/05/2022 COPD, group B, by GOLD 2017 classification [...] duration 04/17/2022 Hx of actinic keratosis 10/24/2020 Cervical spinal stenosis 01/27/2020 Atherosclerosis of [place] co ronary artery of [place] heart with stable angina pectoris 10/02/2019 Overview: [...] replacement 1984 and 2006. Pain managed through [facility] pain clinic. 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 Generalized abdominal pain 08/24/2022 0 01/28/2024 Last Assessment & Plan: -Patient with noted [...] and pelvis placed. Pt to use OSH [facility] in [place]. Scheduling to fax orders. Chronic obstructive pulmonary disease 07/18/2022 08/08/2022 Overview: Per COPD GOLD Classification Last Assessment & Plan: COPD "RED FLAG" COPD symptoms: o Increased shortness of breath at rest ("I struggle to breathe even when watching TV", "I have to wear or turn up my oxygen just when I'm sitting on the couch") Medication Regimen o Class D - Inhaled Tjjooauyutxesa-[id number] Combination Inhaler (Trellegy) Exacerbation Mgt: o Rescue [...] & Plan: Stable per last echo 2020. VALDOVINOS (dyspnea on exertion) 08/17/2020 Last Assessment & Plan: Per walk test in June 2022, patient did not require oxygen. Postherpetic neuralgia 07/08/202007/03 Asthma with severity to be determined 08/31/2019 04/25/2022 Stable angina 01/22/2019 06/13/2023 Overview: Stable angina is included in combo code with cad 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 01/22/2019 07/29/2020 Coronary artery disease invo [place]ving [place] coronary artery of [place] heart without angina pectoris 09/19/2017 10/31/2021 Overview: [...] MEDICATION USE AGREEMENT 09/2010 Overview: Dr Parra [facility] Beta-hakan intolerance documented as of this encounter (statuses as of 02/20/2024) Immunizations Name Administration Dates Next Due COVID-19 mRNA, LNP-s, No Pre serve, 2-Dose Series ([employer]) 10/13/2020,09/22/2020 Pneumococcal Conjugate Vacc, 13 Valent (Prevnar) 08/16/2014 Pneumococcal Polysaccharide PPV23 (Pneumovax) 06/30/2012 Season Influenza, Quad, PF, Adjuvanted, 65+ Yrs, IM (FLUAD) 03/21/2020 Seasonal Influenza, PF, 6 M & above, IM , (FluLaval or Fluzone) 05/02/2018,04/29/2017 Seasonal Influenza, Quadriva lent Hd (Fluzone Hd) 06/19/2023,04/17/2022,04/26/2021 Seasonal Influenza, Quadriva lent, No Preserve, IM 03/02/2016,03/28/2015 Seasonal Influenza, Trivalen t, (IIV3), with Preserv, (Fluzone) 05/19/2014,04/30/2013,03/25/2012,05/01(Deferred: Patient Refused),03/09/2009,05/06/2008, 007,05/13/2006 Seasonal Influenza, Trivalen t, Adjuvanted, 65+ YRS, PF, (Fluad) 06/23/2019 TD - Tetanus/Diptheria (ADULT) 08/13/2009 TDAP [...] e alcohol) occasional PHQ-2 Answer Date Recorded PHQ Adult Total Score 0 01/29/2024 Hunger Vital Sign Answer Date Recorded Within the past 12 months, y ou worried that your food would run out before you got the money to buy more. Never true 01/29/20 24 Within the past 12 months, t he food you bought just didn't last and you didn't have money to get more. Never true 01/29/2024 Childcare Answer Date Recorded Do you feel overwhelmed with taking care of a child, family member or friend? No 01/29/2024 Does your family need help f inding childcare? (Household - for ages 0-17 years) Not on file 01/29/2024 Clothing Answer Date Recorded Have you been unable to get clothing when it was really needed? No 01/29/2024 Is your family able to get c lothes or diapers when needed? (Household - for ages 0-17 years) Not on file 01/29/2024 Personal Safety Answer Date Recorded Do you feel unsafe or have concerns for your saf ety? No 01/29/2024 Do you have concerns for you r family's safety? (Household - for ages 0-17 years) Not on file 01/29/2024 Utilities Answer Date Recorded Do you have trouble paying y our heating, water, or electric bill? Yes 01/29/2024 Is your family able to pay t he heat, water, or electric bill? (Household - for ages 0-17 years) Not on file 01/29/2024 Does your family have access to good internet? (Household - for ages 0-17 years) Not on file 01/29/2024 Employment Status Answer Date Recorded Are you unemployed or without regular income? No 01/29/2024 Does the household have a re gular source of income? (Household - for ages 0-17 years) Not on file 01/29/2024 Social Connections Answer Date Recorded How often do you feel lonely or isolated from th ose around you? Never 01/29/2024 Financial Resource Strain Answer Date R ecorded Do you have any trouble payi ng for your medications, or do you think you might in the future? No 01/29/2024 Does your family have troubl e paying for medicine? (Household - for ages 0-17 years) Not on file 01/29/2024 Transportation Needs Answer Date Record ed Do you have trouble getting a ride to medical visits or work? (Adult - for ages 18 years and over) Not on file 01/29/2024 Does your family have a hard time getting a ride to doctors visits? (Household - for ages 0-17 years) Not on file 01/29/2024 Has lack of transportation k ept you from medical appointments, meetings, work, or from getting things needed for daily living? Check all that apply. No 01/29/2024 Do you (or your family) have trouble finding or paying for a ride (transportation)? (Household - for ages 0-17 years) Not on file 01/29/2024 Housing Stability Answer Date Recorded Do you currently live in a s helter or have no steady place to sleep at night? No 01/29/2024 Do you think you are at risk of becoming homeless? (Adult - for ages 18 years and over) Not on file 01/29/2024 Does your family worry about paying for your home or becoming homeless? (Household - for ages 0-17 years) Not on file 0 01/29/2024 Are you homeless or worried that you might be in the future? No 01/29/2024 Are you (or your family) pushpa eless or worried that you might be in the future? (Household - for ages 0-17 years) Not on file Food Insecurity Answer Date Recorded Do you need food for this week? No 01/29/2024 Are you able to get enough f ood for your family? (Household - for ages 0-17 years) Not on file 01/29/2024 Does your family need food t his week? (Household - for ages 0-17 years) Not on file 01/29/2024 Do you always have enough fo od for your family? (Household - for ages 0-17 years) Not on file 01/29/2024 Sex and Gender Information Value Date Recorded [...] encounter Miscellaneous Notes * Telephone Encounter - Abhinav Dolan OSA - 02/20/2024 11:02 AM EDT [facility] fax plan of care on the Jan order# [id number] Fax # [phone] Any question call Valery at [phone] documented in this encounter Plan of Treatment Upcoming Encounters Date Type Department Care Team (Late st Contact Info) Description 04/06/2024 3:00 PM EDT Nurse Only Ancillary [address] [place] [address] Gamal Nurse [address] [place] [address] 04/21/2024 11:15 AM EDT Office Visit Cardiology, [facility] [address] [facility] [place] [address] Maude Pierce, [address] [place] [address] 06/22/2024 1:40 PM EST Office Visit Dermatology [address] [place] [address] Nia Hong PA-C [address] [place] [address] [place] [address] 08/13/2024 11:30 AM EST Office Visit Cardiology [address] [place] [address] Reji Mendez PA-C [address] [place] [address] 12/21/2024 9:00 AM EDT Office Visit Family Medicine [address] [place] [address] Guera Jay MD [address] [place] [address] [place] [address] Health Maintenance Due Date Last Done Comments Alpha-1 Antitrypsin 02/06/1963 Adult Wellness Visit 02/06/2012 Colonoscopy 08/30/2021 08/30/2016 COVID-19 Vaccine ( season) 2023 10/13/2020, 09/22/2020 TSH 01/10/2024 01/09/2023, 12/22, 11/14/2022, Additional history exists Influenza Vaccine (FLU shot) (#1) 2024 06/19/2023, 04/17/2022, 04/26/2021, Additional history exists Mendez's Esophagus Surveilance 06/02/2024 06/02/2021, 06/02/2021, 01/08/2019, Additional history exists O2 ASSESSMENT COMPLETED IN PAST YEAR FOR COPD 06/19/2024 06/19/2023 Depression Monitoring 01/28/2025 01/29/2024 DTap/Tdap Vaccines (4 - Td or Tdap) 10/17/2025 [...] this encounter Medical Devices Implanted Type Area Industrial Fabric Cutter Device Identifier Shelf Expiration Date Model / Serial / Lot Femoral Nail Retrograde Implanted:Qty: 1 on 10/04/2022 by Donell Landry Jr., MD at [facility] Left: Knee ANGEL 02/18/2031 [id number] / / [id number] Screw Nlk A3 Ti 4.5x36mm - [id number] Implanted:Qty: 1 on 10/04/2022 by Donell Landry Jr., MD at [facility] ANGEL : TRAUMA [id number] / / 5.0 Compression Plate Implanted:Qty: 1 on 10/04/2022 by Donell Landry Jr., MD at [facility] ANGEL [id number] / / Screw T2 Alpha Adv Lck 5x85 - [id number] Implanted:Qty: 1 on 10/04/2022 by Donell Landry Jr., MD at [facility] Left: Knee ANGEL : TRAUMA 07/24/2031 [id number] / / [id number] Screw T2 Alpha Adv Lck 5x65 - [id number] Implanted:Qty: 1 on 10/04/2022 by Donell Landry Jr., MD at [facility] Left: Knee ANGEL : TRAUMA 07/24/2032 [id number] / / [id number] Screw T2 Alpha Adv Lck 5x85 - [id number] Implanted:Qty: 1 on 10/04/2022 by Donell Landry Jr., MD at [facility] Left: Knee ANGEL : TRAUMA 02/22/2032 [id number] / / [id number] Screw T2 Alpha Lock 5x35mm - [id number] Implanted:Qty: 1 on 10/04/2022 by Donell Landry Jr., MD at [facility] Left: Knee ANGEL : TRAUMA 07/24/2032 [id number] / / [id number] Screw Gina Lk A3 Ti 5x12mm - [id number] Implanted:Qty: 1 on 10/04/2022 by Donell Landry Jr., MD at [facility] ANGEL : TRAUMA [id number] / / Screw Gina Lk A3 Ti 5x16mm - [id number] Implanted:Qty: 1 on 10/04/2022 by Donell Landry Jr., MD at [facility] ANGEL : TRAUMA [id number] / / Washer For 2.4mm/2.7mm/3.5m m - [id number] Implanted:Qty: 2 on 10/04/2022 by Donell Landry Jr., MD at [facility] ANGEL : TRAUMA [id number] / / Screw Nlk V2 T10 Ft 3.5x28mm - [id number] Implanted:Qty: 2 on 10/04/2022 by Donell Landry Jr., MD at [facility] ANGEL : TRAUMA [id number] / / documented as of this encounter Advance Directives Documents on File Type Date Recorded Patient Sour Bleaching Pleater Expl anation Advance Directives and Living Will 10/03/2022 ADVANCE DIRECTIVE / LIVING WILL Power of Oil And Gas Well Treatment Operator 10/03/2022 POWER OF A TTORNEY * [...] of Attor mel? No Care Teams Manager Critical Care Unit Relationship Specialty Start Date End Date Guera Jay MD [address] [place] [address] [place] [address] PCP - General Family Medicine 06/19/23 documented as of this encounter
--- OUTSIDE RECORDS SUMMARY | 2024-02-24 14:32 | External Medical Summary | Summary of Care ---
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 [facility] Comments AVNRT, pacer in situ Reason for Visit * Reason Onset Date Comments Hospital Follow-Up 01/24/2024 Encounter Details Date Type Department Care Team (Late st Contact Info) Description 01/24/2024 Telephone Cardiology, [facility] [address] [facility] [place] [address] Reji Mendez PA-C [address] [place] [address] Hospital Follow-Up Allergies Active Allergy Reactions Criticality Noted Date Comments Adhesive Tape Other (Please comment) Low 03/09/2009 Affected area blisters. Latex 11/23/2014 Patient denies this allergy documented as of this encounter (statuses as of 01/30/2024) Medications Medication Sig Dispensed Refills Start Date End Date Status Acetaminophen 500 MG Oral Tablet Take 2 Tablets by mouth 3 times a day as needed for Pain, Moderate or Pain, Severe. Active Flutter DeviceIndications :Bronchiectasis without complication (HCC) Use for 10 min twice daily. pretreat with albuteorl. 1 Each 2 Active Saline Nasal [place] 0.65 % Nasal Solution ([place]) Administer 1 [place] into nostril in the morning and 1 [place] at noon and 1 [place] in the evening and 1 [place] before bedtime. 30 mL 3 Active Senna 8.6 MG Oral Tablet Take 2 Tablets by mouth in the morning and 2 Tablets before bedtime. 60 Tablet 1 3 Active Additional Information Patient not taking.Reported on 01/21/2024 Anoro Ellipta 62.5-25 MCG/ACT Inhalation Aerosol Powder Breath Activated (umeclidinium-jens anterol) Inhale 1 Puff by mouth in the morning. 30 Each 5 3 Active DULoxetine HCl 30 MG Oral Capsule Delayed Release Particles (Cymbalta) Take 1 Capsule by mouth at bedtime. Active Levothyroxine Sodium 75 MCG Oral Tablet (Levoxyl) TAKE 1 TABLET BY MOUTH DAILY AT LEAST 30 MINUTES PRIOR TO FIRST MEAL OF THE DAY OR OTHER MEDICATIONS 100 Tablet 3 3 Active Amitriptyline HCl 25 MG Oral Tablet (Elavil) Take 2 Tablets by mouth at bedtime. 180 Tablet 1 4 Active Nitroglycerin 0.4 MG Sublingual Tablet Sublingual (Nitrostat)Indica tions:Unstable angina (HCC) TAKE 1 TABLET BY MOUTH EVERY 5 MINUTES NEEDED WITH CHEST PAIN UP TO 3 DOSES IN 15 MINUTES 25 Tablet 11 4 Active Additional Information Patient not taking.Reported on 01/21/2024 DULoxetine HCl 60 MG Oral Capsule Delayed Release Particles (Cymbalta)Indicat ions:Current moderate episode of major depressive disorder without prior episode (HCC),Work related injury TAKE ONE CAPSULE BY MOUTH EVERY EVENING 90 Capsule 3 4 Active Clopidogrel Bisulfate 75 MG Oral Tablet (pLAVix)Indicatio ns: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 90 Tablet 3 4 Active Finasteride 5 MG Oral Tablet (Proscar)Indicati ons:BPH without obstruction/lower urinary tract symptoms,Urge incontinence Take 1 Tablet by mouth in the morning. 90 Tablet 3 4 Active Atorvastatin Calcium 80 MG Oral Tablet (Lipitor)Indicati ons:Dyslipidemia, goal LDL below 100 Take 1 Tablet by mouth in the morning. 90 Tablet 3 4 Active Pantoprazole Sodium 40 MG Oral Tablet Delayed Release (Protonix)Indicat ions: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 Take 1 Tablet by mouth in the morning. 90 Tablet 3 4 Active DULoxetine HCl 30 MG Oral Capsule Delayed Release Particles (Cymbalta) Take 1 capsule by mouth every evening 90 Capsule 4 Active Gabapentin 300 MG Oral Capsule (Neurontin) TAKE ONE CAPSULE BY MOUTH THREE TIMES A DAY IN THE MORNING, AT NOON AND BEFORE BEDTIME 270 Capsule 1 4 Active Ipratropium-Albut gray 0.5-2.5 (3) MG/3ML Inhalation Solution (Duoneb) Inhale 1 vial via nebulizer every 6 hours as needed for Shortness of Breath. 360 mL 5 4 Active Tamsulosin HCl 0.4 MG Oral Capsule (Flomax)Indicatio ns:BPH with obstruction/lower urinary tract symptoms Take 1 Capsule by mouth in the morning. 4 Active Metoprolol Succinate ER 25 MG Oral Tablet Extended Release 24 Hour (toPROL XL) Take 2 Tablets by mouth in the morning. 4 Active Tamsulosin HCl 0.4 MG Oral Capsule (Flomax)Indicatio ns:BPH with obstruction/lower urinary tract symptoms Take 2 Capsules by mouth in the morning. 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 Pt to use OSH [facility] in [place]. Scheduling to fax orders. Chronic obstructive pulmonary disease 07/18/2022 08/08/2022 Overview: Per COPD GOLD Classification Last Assessment & Plan: COPD "RED FLAG" COPD symptoms: o Increased shortness of breath at rest ("I struggle to breathe even when watching TV", "I have to wear or turn up my oxygen just when I'm sitting on the couch") Medication Regimen o Class D - Inhaled Jeyxetlyexwjzn-AIIE-OHLG Combination Inhaler (Trellegy) Exacerbation Mgt: o Rescue [...] 01/22/2019 07/29/2020 Coronary artery disease invo lving jena coronary artery of jena heart without angina pectoris 09/19/2017 10/31/2021 Overview: W/ angina on PL [place] (actinic keratosis) 01/23/201710/24 Bradycardia 06/14/2016 09/19/2017 Essential hypertension with goal blood pressure less than 140/90 10/31/2015 07/04/2022 Last Assessment & Plan: bp stable-not on meds Monitor Chronic cholecystitis 03/10/20092010 ACTIVE CASE MANAGEMENT 03/07/200904/10 Overview: Chela Morris, RN [phone] Other specified hypothyroidism 03/01/2008 08/16/2016 Overview: TSH [...] as of this encounter (statuses as of 01/30/2024) Immunizations Name Administration Dates Next Due COVID-19 [...] Telephone Encounter - Andrei Shepard OSA - 01/30/2024 10:59 AM EDT Called patient, spoke with son, son is aware of the date and time of the appt. I will also mail a letter on 01/30/24. * Telephone Encounter - Nikki Tanner LPN - 01/27/2024 4:30 PM EDT Clarified Amlodipine with Reji Mendez PA-C Amlodipine was started but discontinued while in hospital. Pt should not be on amlodipine. * Telephone Encounter - Andrei Shepard OSA - 01/27/2024 3:54 PM EDT Patient has been scheduled with Dr. Pierce, have not called to verify appts. 04/21/2024 Status: Juliette Time: 11:15 AM Length: 60 Visit Type: NEW PATIENT EP CARDIO [[id number]] Reg Status: Verified Last Verified By: Yanet Ocampo OSA [[id number]] Copay: $35.00 Provider: Maude Pierce DO Patient is scheduled with Reji Mendez at [facility] On: RETURN CARDIOLOGY at 11:30 AM (30 min)Arrive by 11:15 AM July Appointment Provider:Reji Mendez PA-C in CARDIOLOGY [facility] * Telephone Encounter - Nikki Tanner LPN - 01/27/2024 3:33 PM EDT Checked discharge summary. Tamulosin decreased, metoprolol change, losartan stopped in hospital, chart med list updated No mention of amlodipine on discharge summary. Pended if appropriate. Attempted son at number listed to inquire about which rehab facility and if pt/son is aware of amlodipine, no answer. EP order placed. Scheduling has chart to make appointments. * Telephone Encounter - Reji Mendez PA-C - 01/24/2024 10:11 AM EDT Complex 78-year-old male admitted following an episode of syncope. History most suggestive of symptomatic orthostatic hypotension in setting of multiple medications as well as limited oral intake. Patient initially examined as mildly hypovolemic. Pacemaker interrogation reviewed with Electrophysiology; likely AVNRT. LV function preserved. ? whether lack of supplemental oxygen may have been a precipitating factor. Recommendations: Tamsulosin decreased to 0.4 mg/day Losartan discontinued Low dose amlodipine, 2.5 mg/day prescribed. Metoprolol succinate adjusted, to 50 mg daily Increase free water intake advised. Supplemental oxygen use encouraged. Needs: General Cardiology follow-up in [place] after rehabilitation stay. Outpatient EP referral, RE: AVNRT Reji Mendez PA-C Department of Cardiology documented in this encounter Plan of Treatment Upcoming Encounters Date Type Department Care Team (Late st Contact Info) Description 02/11/2024 4:40 PM EDT Office Visit Family Medicine [address] [place] [phone] Paige Lang [address] [place] [address] 04/06/2024 3:00 PM EDT Nurse Only Ancillary [address] [place] [address] [place], Nurse Annual [address] [place] [address] 04/21/2024 11:15 AM EDT Office Visit Cardiology, [address] [place] [address] Maude Pierce, [address] [place] [address] 06/22/2024 1:40 PM EST Office Visit Dermatology [address] [place] [address] Nai Hong PA-C [address] [place] [address] [place] [address] 08/13/2024 11:30 AM EST Office Visit Cardiology [address] [place] [address] Reji Mendez PA-C [address] [place] [address] 12/21/2024 9:00 AM EDT Office Visit Family Medicine [address] [place] [phone] Guera Jay MD [address] [place] [address] [place] [address] Scheduled Referrals Name Type Priority Associated Diagnoses Order Schedule ELECTROPHYSIOLOGY REFERRAL OP Referral Within 30 days (routine) Pacemaker-mediated tachycardia Sinus node dysfunction (HCC) 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) Ordered: 01/27/2024 Health Maintenance Due Date Last Done Comments [...] COPD 06/19/2024 06/19/2023 Depression Monitoring 01/28/2025 01/29/2024 DTaP,Tdap,and Td Vaccines (4 - Td or [...] this encounter Medical Devices Implanted Type Area Rack Pusher Device Identifier Shelf Expiration Date Model / Serial / Lot Femoral Nail Retrograde Implanted:Qty: 1 on 10/04/2022 by Donell Landry Jr., MD at OR [facility] Left: Knee ANGEL 02/18/2031 2339-1128S / / [id number] Screw Nlk A3 Ti 4.5x36mm - [id number] Implanted:Qty: 1 on 10/04/2022 by Donell Landry Jr., MD at OR [facility] ANGEL : TRAUMA [id number] / / 5.0 Compression Plate Implanted:Qty: 1 on 10/04/2022 by Donell Landry Jr., MD at OR [facility] ANGEL [id number] / / Screw T2 Alpha Adv Lck 5x85 - [id number] Implanted:Qty: 1 on 10/04/2022 by Donell Landry Jr., MD at OR [facility] Left: Knee ANGEL : TRAUMA 07/24/2031 2361-5085S / / [id number] Screw T2 Alpha Adv Lck 5x65 - [id number] Implanted:Qty: 1 on 10/04/2022 by Donell Landry Jr., MD at OR [facility] Left: Knee ANGEL : TRAUMA 07/24/2032 2361-5065S / / [id number] Screw T2 Alpha Adv Lck 5x85 - [id number] Implanted:Qty: 1 on 10/04/2022 by Donell Landry Jr., MD at OR [facility] Left: Knee ANGEL : TRAUMA 02/22/2032 2361-5085S / / [id number] Screw T2 Alpha Lock 5x35mm - [id number] Implanted:Qty: 1 on 10/04/2022 by Donell Landry Jr., MD at OR [facility] Left: Knee ANGEL : TRAUMA 07/24/2032 2360-5035S / / [id number] Screw Gina Lk A3 Ti 5x12mm - [id number] Implanted:Qty: 1 on 10/04/2022 by Donell Landry Jr., MD at OR [facility] ANGEL : TRAUMA [id number] / / Screw Gina Lk A3 Ti 5x16mm - [id number] Implanted:Qty: 1 on 10/04/2022 by Donell Landry Jr., MD at OR [facility] ANGEL : TRAUMA [id number] / / Washer For 2.4mm/2.7mm/3.5m m - [id number] Implanted:Qty: 2 on 10/04/2022 by Donell Landry Jr., MD at OR [facility] ANGEL : TRAUMA [id number] / / Screw Nlk V2 T10 Ft 3.5x28mm - [id number] Implanted:Qty: 2 on 10/04/2022 by Donell Landry Jr., MD at OR [facility] ANGEL : TRAUMA [id number] / / documented as of this encounter Visit Diagnoses Diagnosis 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 Other specified cardiac dysrhythmias Pacemaker-mediated tachycardia Other specified cardiac dysrhythmias Sinus node dysfunction (HCC) Sinoatrial node dysfunction Cardiac pacemaker in situ BPH with obstruction/lower urinary tract symptoms Hypertrophy of prostate with urinary obstruction and other lower urinary tract symptoms (LUTS) documented in this encounter Advance Directives Documents on File Type Date Recorded 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 No Care Teams Paid Search Specialist Relationship Specialty Start Date End Date Guera Jay MD [address] [place] [address] [place] [phone] PCP - General Family Medicine 06/19/23 documented as of this encounter
--- OUTSIDE RECORDS SUMMARY | 2024-02-24 14:32 | External Medical Summary | Summary of Care ---
Author Name Unknown Organization [facility] Address [address] [place] [address] Phone [phone] Care Team Providers Care Analysis Reporting Developer Name Role Phone Guera Jay MD Primary Care Prov ider Reason for Visit * Reason Onset Date Comments Appointment 01/29/2024 Encounter Details Date Type Department Care Team (Late st Contact Info) Description 01/29/2024 Telephone Family Medicine [address] [phone] Guera Jay MD [address] [place] [address] [place] [address] Appointment Allergies Active Allergy Reactions Criticality [...] albuteorl. 1 Each 04/25/2022 Active Saline Nasal [place] 0.65 % Nasal Solution ([place]) Administer 1 [place] into nostril in the morning and 1 [place] at noon and 1 [place] in the evening and 1 [place] before bedtime. 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 Pain managed through [facility] pain clinic. 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 12/22 Overview: CO-M2 [place] Last Assessment & Plan: Follows with GI [...] pelvis placed. Pt to use OSH [facility] in [place]. Scheduling to fax orders. Chronic obstructive pulmonary disease 07/18/2022 08/08/2022 Overview: Per COPD GOLD Classification Last Assessment & Plan: COPD "RED FLAG" COPD symptoms: o Increased shortness of breath at rest ("I struggle to breathe even when watching TV", "I have to wear or turn up my oxygen just when I'm sitting on the couch") Medication Regimen o Class D - Inhaled Zanatmqtofsgpe-KLDD-RKSL Combination Inhaler (Trellegy) Exacerbation Mgt: o Rescue Kit in place in Medication List: Yes. o Used rescue kit in the past month: No o Required IM or IV steroids (Solumedrol) since last visit: No Current exacerbation. Rescue kit initiated. Follow-up scheduled. Hypertensive heart disease w [facility] congestive heart failure 05/24/2022 07/18/2022 Overview: HTN [...] 01/22/2019 07/29/2020 Coronary artery disease invo lving blackfeet coronary artery of blackfeet heart without angina pectoris 09/19/2017 10/31/2021 Overview: W/ angina on [place] (actinic keratosis) 01/23/201710/24 Bradycardia 06/14/2016 09/19/2017 Essential hypertension with goal blood pressure less than 140/90 10/31/2015 07/04/2022 Last Assessment & Plan: bp stable-not on meds Monitor Chronic cholecystitis 03/10/20092010 ACTIVE CASE MANAGEMENT 03/07/200904/10 Overview: Chela Morris, RN [phone] Other specified hypothyroidism 03/01/2008 08/16/2016 Overview: TSH [...] MEDICATION USE AGREEMENT 09/2010 Overview: Dr Parra [facility] Beta-hakan intolerance documented as of this encounter (statuses as of 01/30/2024) Immunizations Name Administration Dates Next Due COVID-19 mRNA, LNP-s, No Pre serve, 2-Dose Series ([employer]) 10/13/2020,09/22/2020 Pneumococcal Conjugate Vacc, 13 Valent [...] No 01/29/2024 Does the household have a [facility] income? (Household - for ages [...] encounter Miscellaneous Notes * Telephone Encounter - Manuelito Caicedo OSA - 01/30/2024 10:42 AM EDT Someone already has pt scheduled 02/11/2024 * Telephone Encounter - Lyubov Arias RN - 01/29/2024 4:09 PM EDT Please set up hospital d/c appointment for patient. D/C to home on 01/27/24 from [facility] for syncope. Thanks! documented in this encounter Plan of Treatment Upcoming Encounters Date Type Department Care Team (Late st Contact Info) Description 02/11/2024 4:40 PM EDT Office Visit Family Medicine [address] [place] [phone] Paige Lang [address] [place] [address] 04/06/2024 3:00 PM EDT Nurse Only Ancillary [address] [place] [address] [place], Nurse [address] [place] [address] 04/21/2024 11:15 AM EDT Office Visit Cardiology, [facility] [address] [place] [address] Maude Pierce, [address] [place] [address] 06/22/2024 1:40 PM EST Office Visit Dermatology [address] [place] [address] Nia Hong PA-C [address] [place] [address] [place] [address] 08/13/2024 11:30 AM EST Office Visit Cardiology [address] [place] [address] Reji Mendez PA-C [address] [place] [address] 12/21/2024 9:00 AM EDT Office Visit Family Medicine [address] [place] [phone] Guera Jay MD [address] [place] [address] [place] [address] Health Maintenance Due Date Last Done Comments [...] this encounter Medical Devices Implanted Type Area Certified Registered Locksmith Device Identifier Shelf Expiration Date Model / Serial / Lot Femoral Nail Retrograde Implanted:Qty: 1 on 10/04/2022 by Donell Landry Jr., MD at OR [facility] Left: Knee ANGEL 02/18/2031 2339-1128S / / [id number] Screw Nlk A3 Ti 4.5x36mm - [id number] Implanted:Qty: 1 on 10/04/2022 by Donell Landry Jr., MD at OR [facility] ANGEL : TRAUMA [id number] / / 5.0 Compression Plate Implanted:Qty: 1 on 10/04/2022 by Donell Landry Jr., MD at OR [facility] ANGEL [id number] / / Screw T2 Alpha Adv Lck 5x85 - [id number] Implanted:Qty: 1 on 10/04/2022 by Donell Landry Jr., MD at OR [facility] Left: Knee ANGEL : TRAUMA 07/24/2031 2361-5085S / / [id number] Screw T2 Alpha Adv Lck 5x65 - [id number] Implanted:Qty: 1 on 10/04/2022 by Donell Landry Jr., MD at OR [facility] Left: Knee ANGEL : TRAUMA 07/24/2032 2361-5065S / / [id number] Screw T2 Alpha Adv Lck 5x85 - [id number] Implanted:Qty: 1 on 10/04/2022 by Donell Landry Jr., MD at OR [facility] Left: Knee ANGEL : TRAUMA 02/22/2032 2361-5085S / / [id number] Screw T2 Alpha Lock 5x35mm - [id number] Implanted:Qty: 1 on 10/04/2022 by Donell Landry Jr., MD at OR [facility] Left: Knee ANGEL : TRAUMA 07/24/2032 2360-5035S / / [id number] Screw Gina Lk A3 Ti 5x12mm - [id number] Implanted:Qty: 1 on 10/04/2022 by Donell Landry Jr., MD at OR [facility] ANGEL : TRAUMA [id number] / / Screw Gina Lk A3 Ti 5x16mm - [id number] Implanted:Qty: 1 on 10/04/2022 by Donell Landry Jr., MD at OR [facility] ANGEL : TRAUMA [id number] / / Washer For 2.4mm/2.7mm/3.5m m - [id number] Implanted:Qty: 2 on 10/04/2022 by Donell Landry Jr., MD at OR [facility] ANGEL : TRAUMA [id number] / / Screw Nlk V2 T10 Ft 3.5x28mm - [id number] Implanted:Qty: 2 on 10/04/2022 by Donell Landry Jr., MD at OR [facility] ANGEL : TRAUMA [id number] / / documented as of this encounter Advance Directives Documents on File Type Date Recorded 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 No Care Teams Analysis Reporting Developer Relationship Specialty Start Date End Date Guera Jay MD [address] [place] [address] [place] [address] PCP - General Family Medicine 06/19/23 documented as of this encounter
--- OUTSIDE RECORDS SUMMARY | 2024-02-24 14:32 | External Medical Summary | Summary of Care ---
Author Name Unknown Organization [facility] Address [address] [place] [address] Phone [phone] Care Team Providers Care Strategic Consultant Name Role Phone Guera Jay MD Primary Care Prov ider Encounter Details Date Type Department Care Team (Late st Contact Info) Description 02/09/2024 Result Scan Unspecified Department Maude Pierce, DO [address] [place] [address] <No scans attached> Allergies Active Allergy Reactions Criticality Noted Date Comments Adhesive Tape Other (Please comment) Low 03/09/2009 Affected area blisters. Latex 11/23/2014 Patient denies this allergy documented as of this encounter (statuses as of 02/09/2024) Medications Medication Sig Dispensed Refills Start Date End Date Status Acetaminophen 500 MG Oral Tablet Take 2 Tablets by mouth 3 times a day as needed for Pain, Moderate or Pain, Severe. Active Flutter DeviceIndications:B ronchiectasis without complication (HCC) Use for 10 min twice daily. pretreat with albuteorl. 1 Each 04/25/2022 Active Saline Nasal [place] 0.65 % Nasal Solution ([place]) Administer 1 [place] into nostril in the morning and 1 [place] at noon and 1 [place] in the evening and 1 [place] before bedtime. 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 Pain managed through [facility] pain clinic. 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 Pt to use OSH [facility] in [place]. Scheduling to fax orders. Chronic obstructive pulmonary disease 07/18/2022 08/08/2022 Overview: Per COPD GOLD Classification Last Assessment & Plan: COPD "RED FLAG" COPD symptoms: o Increased shortness of breath at rest ("I struggle to breathe even when watching TV", "I have to wear or turn up my oxygen just when I'm sitting on the couch") Medication Regimen o Class D - Inhaled Ubqjyanewbycmh-RVMX-QJEV Combination Inhaler (Trellegy) Exacerbation Mgt: o Rescue Kit in place in Medication List: Yes. o Used rescue kit in the past month: No o Required IM or IV steroids (Solumedrol) since last visit: No Current exacerbation. Rescue kit initiated. Follow-up scheduled. Hypertensive heart disease w [facility] congestive heart failure 05/24/2022 07/18/2022 Overview: HTN [...] 01/22/2019 07/29/2020 Coronary artery disease invo lving platinum coronary artery of platinum heart without angina pectoris 09/19/2017 10/31/2021 Overview: W/ angina on [place] (actinic keratosis) 01/23/201710/24 Bradycardia 06/14/2016 09/19/2017 Essential hypertension with goal blood pressure less than 140/90 10/31/2015 07/04/2022 Last Assessment & Plan: bp stable-not on meds Monitor Chronic cholecystitis 03/10/20092010 ACTIVE CASE MANAGEMENT 03/07/200904/10 Overview: Chela Morris, RN [phone] Other specified hypothyroidism 03/01/2008 08/16/2016 Overview: TSH [...] MEDICATION USE AGREEMENT 09/2010 Overview: Dr Parra [facility] Beta-hakan intolerance documented as of this encounter (statuses as of 02/09/2024) Immunizations Name Administration Dates Next Due COVID-19 [...] No 01/29/2024 Does the household have a [facility] [employer] [facility] source of income? (Household - for ages [...] 4:40 PM EDT Office Visit Family Medicine [address] [place] [phone] Paige Lang CRNP [address] [place] [address] [place] [address] 04/06/2024 3:00 PM EDT Nurse Only Ancillary [address] [place] [address] Gam[place], Nurse Annual Wellness [address] [place] [address] [place] [address] 04/21/2024 11:15 AM EDT Office Visit Cardiology, [facility] [address] [place] [address] Maude Pierce, [address] [place] [address] 06/22/2024 1:40 PM EST Office Visit Dermatology [address] [place] [address] Nia Hong PA-C [address] [place] [address] [place] [address] 08/13/2024 11:30 AM EST Office Visit Cardiology [address] [place] [address] Reji Mendez PA-C [address] [place] [address] 12/21/2024 9:00 AM EDT Office Visit Family Medicine [address] [place] [phone] Guera Jay MD [address] [place] [address] [place] [address] Health Maintenance Due Date Last Done Comments Alpha-1 Antitrypsin 02[birth year]06/1963 Adult Wellness Visit 02/06/2012 Colonoscopy 08/30/2021 08/30/2016 COVID-19 Vaccine (2022- season) [...] encounter Medical Devices Implanted Type Area Senior Qualitative Researcher Device Identifier Shelf Expiration Date Model / Serial / Lot Femoral Nail Retrograde Implanted:Qty: 1 on 10/04/2022 by Gris Middleton, Donell Oliver MD at OR [facility] Left: Knee ANGEL 02/18/2031 [id number] / / [id number] Screw Nlk A3 Ti 4.5x36mm - [id number] Implanted:Qty: 1 on 10/04/2022 by Donell Landry Jr., MD at OR [facility] ANGEL : TRAUMA [id number] / / 5.0 Compression Plate Implanted:Qty: 1 on 10/04/2022 by Donell Landry Jr., MD at OR [facility] ANGEL [id number] / / Screw T2 Alpha Adv Lck 5x85 - [id number] Implanted:Qty: 1 on 10/04/2022 by Donell Landry Jr., MD at OR [facility] Left: Knee ANGEL : TRAUMA 07/24/2031 2361-5085S / / [id number] Screw T2 Alpha Adv Lck 5x65 - [id number] Implanted:Qty: 1 on 10/04/2022 by Donell Landry Jr., MD at OR [facility] Left: Knee ANGEL : TRAUMA 07/24/2032 2361-5065S / / [id number] Screw T2 Alpha Adv Lck 5x85 - [id number] Implanted:Qty: 1 on 10/04/2022 by Donell Landry Jr., MD at OR [facility] Left: Knee ANGEL : TRAUMA 02/22/2032 2361-5085S / / [id number] Screw T2 Alpha Lock 5x35mm - [id number] Implanted:Qty: 1 on 10/04/2022 by Donell Landry Jr., MD at OR [facility] Left: Knee ANGEL : TRAUMA 07/24/2032 2360-5035S / / [id number] Screw Gina Lk A3 Ti 5x12mm - [id number] Implanted:Qty: 1 on 10/04/2022 by Donell Landry Jr., MD at OR [facility] ANGEL : TRAUMA [id number] / / Screw Gina Lk A3 Ti 5x16mm - [id number] Implanted:Qty: 1 on 10/04/2022 by Donell Landry Jr., MD at OR [facility] ANGEL : TRAUMA [id number] / / Washer For 2.4mm/2.7mm/3.5m m - [id number] Implanted:Qty: 2 on 10/04/2022 by Donell Landry Jr., MD at OR [facility] ANGEL : TRAUMA [id number] / / Screw Nlk V2 T10 Ft 3.5x28mm - [id number] Implanted:Qty: 2 on 10/04/2022 by Donell Landry Jr., MD at [facility] ANGEL : TRAUMA [id number] / / documented as of this encounter Procedures Procedure Name Priority Date/Time Associated Diagnosis Comments CARDIOLOGY SCANNED RESULT 02/09/2024 documented in this encounter Results * CARDIOLOGY SCANNED RESULT (02/09/2024) 02/09/2024 Maude Pierce DO OTHER documented in this encounter Advance Directives Documents on File Type Date Recorded 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 No Care Teams Strategic Consultant Relationship Specialty Start Date End Date Guera Jay MD [address] [place] [address] [place] [address] PCP - General Family Medicine 06/19/23 documented as of this encounter
--- OUTSIDE RECORDS SUMMARY | 2024-02-24 14:32 | External Medical Summary | Summary of Care ---
Author Name Unknown Organization [facility] Address [address] [place] [address] Phone [phone] Care Team Providers Care Public Relations Sales Marketing Name Role Phone Guera Jay MD Primary Care Prov ider Reason for Visit * Reason Onset Date Comments Advice 02/12/2024 Encounter Details Date Type Department Care Team (Late st Contact Info) Description 02/12/2024 Telephone Family Medicine [address] [phone] Guera Jay MD [address] [place] [phone] Advice Allergies Active Allergy Reactions Criticality Noted Date Comments Adhesive Tape Other (Please comment) Low 03/09/2009 Affected area blisters. Latex 11/23/2014 Patient denies this allergy documented as of this encounter (statuses as of 02/12/2024) Medications Medication Sig Dispensed Refills Start Date End Date Status Acetaminophen 500 MG Oral Tablet Take 2 Tablets by mouth 3 times a day as needed for Pain, Moderate or Pain, Severe. Active Flutter DeviceIndications:B ronchiectasis without complication (HCC) Use for 10 min twice daily. pretreat with albuteorl. 1 Each 04/25/2022 Active Saline Nasal [place] 0.65 % Nasal Solution ([place]) Administer 1 [place] into nostril in the morning and 1 [place] at noon and 1 [place] in the evening and 1 [place] before bedtime. 30 mL 11/15/2022 Active Senna [...] 75 MG Oral Tablet (pLAVix)Indications :Atherosclerosis of [place] coronary artery of [place] heart with angina pectoris (HCC) Take 1 [...] as of this encounter (statuses as of 02/12/2024) Active Problems Problem Noted Date Diagnosed Date [...] 10/24/2020 Cervical spinal stenosis 01/27/2020 Atherosclerosis of [place] co ronary artery of [place] heart with stable angina pectoris 10/02/2019 Overview: [...] esophagus determined by endoscopy 12/22 Overview: CO-M2 [place] Last Assessment & Plan: Follows with GI [...] as of this encounter (statuses as of 02/12/2024) Resolved Problems Problem Noted Date Diagnosed Date [...] and pelvis placed. Pt to use OSH [facility] in [place]. Scheduling to fax orders. Chronic obstructive pulmonary disease 07/18/2022 08/08/2022 Overview: Per COPD GOLD Classification Last Assessment & Plan: COPD "RED FLAG" COPD symptoms: o Increased shortness of breath at rest ("I struggle to breathe even when watching TV", "I have to wear or turn up my oxygen just when I'm sitting on the couch") Medication Regimen o Class D - Inhaled Dzqwrszsyqkhsr-VQIM-OUWX Combination Inhaler (Trellegy) Exacerbation Mgt: o Rescue [...] 01/22/2019 07/29/2020 Coronary artery disease invo lving [place] coronary artery of [place] heart without angina pectoris 09/19/2017 10/31/2021 Overview: W/ angina on [place] (actinic keratosis) 01/23/201710/24 Bradycardia 06/14/2016 09/19/2017 Essential hypertension with goal blood pressure less than 140/90 10/31/2015 07/04/2022 Last Assessment & Plan: bp stable-not on meds Monitor Chronic cholecystitis 03/10/20092010 ACTIVE CASE MANAGEMENT 03/07/200904/10 Overview: Chela Morrsi, RN [phone] Other specified hypothyroidism 03/01/2008 [...] as of this encounter (statuses as of 02/12/2024) Immunizations Name Administration Dates Next Due COVID-19 mRNA, LNP-s, No Pre serve, 2-Dose Series ([employer] 10/13/2020,09/22/2020 Pneumococcal Conjugate Vacc, 13 Valent (Prevnar) [...] 01/29/2024 Does the household have a re lar source of income? (Household - for ages [...] Telephone Encounter - Guera Jay MD - 02/12/2024 4:02 PM EDT Noted * Telephone Encounter - Sylvia Howell OSA - 02/12/2024 2:06 PM EDT Mere tripp/ Raghav PT calling to report a fall in living room after dizzy spell. No loss of consciousness nor did he hit his head. No other injuries observed. Thank you documented in this encounter Plan of Treatment Upcoming Encounters Date Type Department Care Team (Late st Contact Info) Description 04/06/2024 3:00 PM EDT Nurse Only Ancillary [address] [place] [address] [place], Nurse [address] [place] [address] 04/21/2024 11:15 AM EDT Office Visit Cardiology, [facility] [address] [facility] [place] [address] Maude Pierce, [address] [place] [address] 06/22/2024 1:40 PM EST Office Visit Dermatology [address] [place] [address] Nia Hong PA-C [address] [place] [address] [place] [address] 08/13/2024 11:30 AM EST Office Visit Cardiology [address] [place] [address] Reji Mendez PA-C [address] [place] [address] 12/21/2024 9:00 AM EDT Office Visit Family Medicine [address] [place] [phone] Guera Jay MD [address] [place] [address] [place] [phone] Health Maintenance Due Date Last Done Comments [...] encounter Medical Devices Implanted Type Area Manager Combination Device Identifier Shelf Expiration Date Model / Serial / Lot Femoral Nail Retrograde Implanted:Qty: 1 on 10/04/2022 by Donell Landry Jr., [place] [facility] Knee ANGEL 02/18/2031 2339-1128S / / [id number] Screw Nlk A3 Ti 4.5x36mm - [id number] Implanted:Qty: 1 on 10/04/2022 by Donell Landry Jr., [place] [facility] [place]EL : TRAUMA [id number] / / 5.0 Compression Plate Implanted:Qty: 1 on 10/04/2022 by Donell Landry Jr., [place] [facility] [place]EL [id number] / / Screw T2 Alpha Adv Lck 5x85 - [id number] Implanted:Qty: 1 on 10/04/2022 by Donell Landry Jr., [place] [facility] [place]: Knee ANGEL : TRAUMA 07/24/2031 2361-5085S / / [id number] Screw T2 Alpha Adv Lck 5x65 - [id number] Implanted:Qty: 1 on 10/04/2022 by Donell Landry Jr., [place] [facility] [place]: Knee ANGEL : TRAUMA 07/24/2032 2361-5065S / / [id number] Screw T2 Alpha Adv Lck 5x85 - [id number] Implanted:Qty: 1 on 10/04/2022 by Donell Landry Jr., [place] [facility] [place]: Knee ANGEL : TRAUMA 02/22/2032 2361-5085S / / [id number] Screw T2 Alpha Lock 5x35mm - [id number] Implanted:Qty: 1 on 10/04/2022 by Donell Landry Jr., [place] [facility] [place]: Knee ANGEL : TRAUMA 07/24/2032 2360-5035S / / [id number] Screw Gina Lk A3 Ti 5x12mm - [id number] Implanted:Qty: 1 on 10/04/2022 by Donell Landry Jr., MD [place] [facility] [place]EL : TRAUMA [id number] / / Screw Gina Lk A3 Ti 5x16mm - [id number] Implanted:Qty: 1 on 10/04/2022 by Donell Landry Jr., MD at [place] [facility] [place]GEL : TRAUMA [id number] / / Washer For 2.4mm/2.7mm/3.5m m - [id number] Implanted:Qty: 2 on 10/04/2022 by Donell Landry Jr., MD at [place] [facility] [place]EL : TRAUMA [id number] / / Screw Nlk V2 T10 Ft 3.5x28mm - [id number] Implanted:Qty: 2 on 10/04/2022 by Donell Landry Jr., MD at [place] [facility] [place]GEL : TRAUMA [id number] / / documented as of this encounter Advance Directives Documents on File Type Date Recorded Patient Live Hanger Expl anation Advance Directives and Living Will 10/03/2022 ADVANCE DIRECTIVE / LIVING WILL Power of Ski Lift Mechanic 10/03/2022 POWER OF A TTORNEY * Full [...] Power of Attor mel? No Care Teams Public Relations Sales Marketing Relationship Specialty Start Date End Date Guera Jay MD [address] [place] [address] [place] [phone] PCP - General Family Medicine 06/19/23 documented as of this encounter
--- OUTSIDE RECORDS SUMMARY | 2024-02-24 14:32 | External Medical Summary | Summary of Care ---
Author Name Unknown Organization [facility] Address [address] [place] [address] Phone [phone] Care Team Providers Care Deckhand Clam Dredge Name Role Phone Guera Jay MD Primary Care Prov ider Reason for Referral * Evaluate & Treat - Unlimited Visits (Within 30 days (routine)) - Authorized Specialty Diagnoses / Procedures Referred By Contact Referred To Contact Cardiac Electrophysiology / Cardiology Diagnoses Pacemaker-mediated tachycardia Sinus node dysfunction (HCC) 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) Reji Mendez PA-C [address] [place] [address] Referral ID Status Reason Start Date Expiration Date Visits Requested Visits Authorized [id number] Authorized Specialty Services Required 01/27/2024 999 999 Question Answer Referral Priority Within 30 days (routine) Where should this appointment be scheduled? [facility] Comments AVNRT, pacer in situ Reason for Visit * Reason Onset Date Comments Hospital Follow-Up 01/24/2024 Encounter Details Date Type Department Care Team (Late st Contact Info) Description 01/24/2024 Telephone Cardiology, [facility] [address] [facility] [place] [address] Reji Mendez PA-C [address] [place] [phone] Hospital Follow-Up Allergies Active Allergy Reactions Criticality Noted Date Comments Adhesive Tape Other (Please comment) Low 03/09/2009 Affected area blisters. Latex 11/23/2014 Patient denies this allergy documented as of this encounter (statuses as of 01/27/2024) Medications Medication Sig Dispensed Refills Start Date End Date Status Acetaminophen 500 MG Oral Tablet Take 2 Tablets by mouth 3 times a day as needed for Pain, Moderate or Pain, Severe. Active Flutter DeviceIndications :Bronchiectasis without complication (HCC) Use for 10 min twice daily. pretreat with albuteorl. 1 Each 2 Active Saline Nasal [place] 0.65 % Nasal Solution ([place]) Administer 1 [place] into nostril in the morning and 1 [place] at noon and 1 [place] in the evening and 1 [place] before bedtime. 30 mL 3 Active Senna [...] MG Oral Tablet (pLAVix)Indicatio ns:Atherosclerosi s of [place] coronary artery of [place] heart with angina pectoris (HCC) Take 1 [...] as of this encounter (statuses as of 01/27/2024) Active Problems Problem Noted Date Diagnosed Date [...] abdomen and pelvis placed. [facility] [place]. Scheduling to fax orders. COPD, group B, [...] at length -albuterol rx sent to [facility] -Use Advair BID -has rescue kit -CXR, exercise pulse ox -f/u t/c and home visit next week -needs pulm f/u Mediastinal adenopathy 04/25/2022 Chronic back pain greater than 3 months duration 04/17/2022 Hx of actinic keratosis 10/24/2020 VALDOVINOS (dyspnea on exertion) 08/17/2020 Last Assessment & Plan: Per walk test in June 2022, patient did not require oxygen. Cervical spinal stenosis 01/27/2020 Atherosclerosis of [place] co ronary artery of [place] heart with stable angina pectoris 10/02/2019 Overview: [...] esophagus determined by endoscopy 12/22 Overview: CO-M2 [place] Last Assessment & Plan: Follows with GI [...] as of this encounter (statuses as of 01/27/2024) Resolved Problems Problem Noted Date Diagnosed Date [...] Medication Regimen o Class D - Inhaled Kbvkvdhbqcvkku-DWVY-CRCJ Combination Inhaler (Trellegy) Exacerbation Mgt: o Rescue Kit in place in Medication List: Yes. o Used rescue kit in the past month: No o Required IM or IV steroids (Solumedrol) since last visit: No Current exacerbation. Rescue kit initiated. Follow-up scheduled. Hypertensive heart disease w [facility] congestive heart failure 05/24/2022 07/18/2022 Overview: [...] 01/22/2019 07/29/2020 Coronary artery disease invo lving [place] coronary artery of [place] heart without angina pectoris 09/19/2017 10/31/2021 Overview: W/ angina on [place] (actinic keratosis) 01/23/201710/24 Bradycardia 06/14/2016 09/19/2017 Essential hypertension with goal blood pressure less than 140/90 10/31/2015 07/04/2022 Last Assessment & Plan: bp stable-not on meds Monitor Chronic cholecystitis 03/10/20092010 ACTIVE CASE MANAGEMENT 03/07/200904/10 Overview: Chela Morris RN [phone] Other specified hypothyroidism 03/01/2008 [...] as of this encounter (statuses as of 01/27/2024) Immunizations Name Administration Dates Next Due COVID-19 mRNA, LNP-s, No Pre serve, 2-Dose Series ([employer]) 10/13/2020,09/22/2020 Pneumococcal Conjugate Vacc, 13 Valent (Prevnar) [...] encounter Miscellaneous Notes * Telephone Encounter - Nikki Tanner LPN [...] 60 Visit Type: NEW PATIENT EP CARDIO [[id number]] Reg Status: Verified Last Verified By: Yanet Ocampo OSA [[id number]] Copay: $35.00 Provider: Maude Pierce DO Patient is scheduled with Reji Mendez at [facility] On: RETURN CARDIOLOGY at 11:30 AM (30 min)Arrive by 11:15 AM July Appointment Provider:Reji Mendez PA-C in C[facility]OLOGY [facility] * Telephone Encounter - Nikki Tanner LPN [...] use encouraged. Needs: General Cardiology follow-up in [place] after rehabilitation stay. Outpatient EP referral, RE: AVNRT Reji Mendez PA-C Department of Cardiology documented in this encounter Plan of Treatment Upcoming Encounters Date Type Department Care Team (Late st Contact Info) Description 01/28/2024 1:00 PM EDT Office Visit Family Medicine [address] [place] [phone] Paige Lang CRNP [address] [place] [address] [place] [address] 04/06/2024 3:00 PM EDT Nurse Only Ancillary [address] [place] [address] Gamal, Nurse [address] [place] [address] 04/21/2024 11:15 AM EDT Office Visit Cardiology, [facility] [address] [place] [address] Maude Pierce, [address] [place] [address] 06/22/2024 1:40 PM EST Office Visit Dermatology [address] [place] [address] Nia Hong PA-C [address] [place] [address] [place] [address] 08/13/2024 11:30 AM EST Office Visit Cardiology [address] [place] [address] Reji Mendez PA-C [address] [place] [address] 12/21/2024 9:00 AM EDT Office Visit Family Medicine [address] [place] [phone] Guera Jay MD [address] [place] [address] [place] [address] Scheduled Referrals Name Type Priority Associated Diagnoses Order Schedule ELECTROPHYSIOLOGY REFERRAL OP Referral Within 30 days (routine) Pacemaker-mediated tachycardia Sinus node dysfunction (HCC) 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) Ordered: 01/27/2024 Health Maintenance Due Date Last Done Comments Alpha-1 Antitrypsin 02/06/1963 Adult Wellness Visit 02/06/2012 Depression Monitoring 01/23/2020 01/22/2019 Colonoscopy 08/30/2021 08/30/2016 [...] this encounter Medical Devices Implanted Type Area Alterations Supervisor Device Identifier Shelf Expiration Date Model / Serial / Lot Femoral Nail Retrograde Implanted:Qty: 1 on 10/04/2022 by Donell Landry Jr., MD at OR [facility] Left: Knee ANGEL 02/18/2031 2339-1128S / / [id number] Screw Nlk A3 Ti 4.5x36mm - [id number] Implanted:Qty: 1 on 10/04/2022 by Donell Landry Jr., MD at OR [facility] ANGEL : TRAUMA [id number] / / 5.0 Compression Plate Implanted:Qty: 1 on 10/04/2022 by Donell Landry Jr., MD at OR [facility] ANGEL [id number] / / Screw T2 Alpha Adv Lck 5x85 - [id number] Implanted:Qty: 1 on 10/04/2022 by Donell Landry Jr., MD at OR [facility] Left: Knee ANGEL : TRAUMA 07/24/2031 2361-5085S / / [id number] Screw T2 Alpha Adv Lck 5x65 - [id number] Implanted:Qty: 1 on 10/04/2022 by Donell Landry Jr., MD at OR [facility] Left: Knee ANGEL : TRAUMA 07/24/2032 2361-5065S / / [id number] Screw T2 Alpha Adv Lck 5x85 - [id number] Implanted:Qty: 1 on 10/04/2022 by Donell Landry Jr., MD at OR [facility] Left: Knee ANGEL : TRAUMA 02/22/2032 2361-5085S / / [id number] Screw T2 Alpha Lock 5x35mm - [id number] Implanted:Qty: 1 on 10/04/2022 by Donell Landry Jr., MD at OR [facility] Left: Knee ANGEL : TRAUMA 07/24/2032 2360-5035S / / [id number] Screw Gina Lk A3 Ti 5x12mm - [id number] Implanted:Qty: 1 on 10/04/2022 by Donell Landry Jr., MD at OR [facility] ANGEL : TRAUMA [id number] / / Screw Gina Lk A3 Ti 5x16mm - [id number] Implanted:Qty: 1 on 10/04/2022 by Donell Landry Jr., MD at OR [facility] ANGEL : TRAUMA [id number] / / Washer For 2.4mm/2.7mm/3.5m m - [id number] Implanted:Qty: 2 on 10/04/2022 by Donell Landry Jr., MD at OR [facility] ANGEL : TRAUMA [id number] / / Screw Nlk V2 T10 Ft 3.5x28mm - [id number] Implanted:Qty: 2 on 10/04/2022 by Donell Landry Jr., MD at OR [facility] ANGEL : TRAUMA [id number] / / documented as of this encounter [...] Documents on File Type Date Recorded 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 No Care Teams Deckhand Clam Dredge Relationship Specialty Start Date End Date Guera Jay MD [address] [place] [address] [place] [address] PCP - General Family Medicine 06/19/23 documented as of this encounter
--- OUTSIDE RECORDS SUMMARY | 2024-02-24 14:32 | External Medical Summary | Summary of Care ---
Author Name Unknown Organization [facility] Address [address] [place] [address] Phone [phone] Care Team Providers Care Extrusion Technician Name Role Phone Guera Jay MD Primary Care Prov ider Reason for Visit * Reason Onset Date Comments Health Maintenance 01/22/2024 Encounter Details Date Type Department Care Team (Late st Contact Info) Description 01/22/2024 Telephone Family Medicine [address] [phone] Guera Jay MD [address] [place] [address] [place] [address] Health Maintenance Allergies Active Allergy Reactions Criticality Noted Date Comments Adhesive Tape Other (Please comment) Low 03/09/2009 Affected area blisters. Latex 11/23/2014 Patient denies this allergy documented as of this encounter (statuses as of 01/22/2024) Medications Medication Sig Dispensed Refills Start Date End Date Status Acetaminophen 500 MG Oral Tablet Take 2 Tablets by mouth 3 times a day as needed for Pain, Moderate or Pain, Severe. Active Flutter DeviceIndications: Bronchiectasis without complication (HCC) Use for 10 min twice daily. pretreat with albuteorl. 1 Each 04/25/2022 Active Saline Nasal [place] 0.65 % Nasal Solution ([place]) Administer 1 [place] into nostril in the morning and 1 [place] at noon and 1 [place] in the evening and 1 [place] before bedtime. 30 mL 11/15/2022 Active Senna [...] Additional Information Patient not taking.Reported on 01/21/2024 Tamsulosin HCl 0.4 MG Oral Capsule (Flomax)Indication [...] 75 MG Oral Tablet (pLAVix)Indication s:Atherosclerosis of [place] coronary artery of [place] heart with angina pectoris (HCC) Take [...] BEFORE BEDTIME 270 Capsule 1 01/06/2024 Active Ipratropium-Albute rol 0.5-2.5 (3) MG/3ML Inhalation Solution (Duoneb) Inhale 1 vial via nebulizer every 6 hours as needed for Shortness of Breath. 360 mL 5 01/16/2024 Active documented as of this encounter (statuses as of 01/22/2024) Active Problems Problem Noted Date Diagnosed Date [...] and pelvis placed. Pt to use OSH [facility] in [place]. Scheduling to fax orders. COPD, group B, [...] length -albuterol rx sent to [facility] -Use Advair BID -has rescue kit -CXR, exercise pulse ox -f/u t/c and home visit next week -needs pulm f/u Mediastinal adenopathy 04/25/2022 Chronic back pain greater than 3 months duration 04/17/2022 Hx of actinic keratosis 10/24/2020 VALDOVINOS (dyspnea on exertion) 08/17/2020 Last Assessment & Plan: Per walk test in June 2022, patient did not require oxygen. Cervical spinal stenosis 01/27/2020 Atherosclerosis of [place] co ronary artery of [place] heart with stable angina pectoris 10/02/2019 [...] 1984 and 2006. Pain managed through [facility]. 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 o Used rescue kit in the past month: No o Required IM or IV steroids (Solumedrol) since last visit: No Current exacerbation. Rescue kit initiated. Follow-up scheduled. [facility] 05/24/2022 07/18/2022 [...] 01/22/2019 07/29/2020 Coronary artery disease invo lving [place] coronary artery of [place] heart without angina pectoris 09/19/2017 10/31/2021 [...] USE AGREEMENT 09/2010 Overview: Dr Parra [facility] Beta-hakan intolerance documented as of this encounter (statuses as of 01/22/2024) Immunizations Name Administration Dates Next Due COVID-19 [...] encounter Miscellaneous Notes * Telephone Encounter - Tejal Storm LPN - 01/22/2024 10:35 AM EDT Care Gaps Comprehensive Care Outreach Last Office/Telemedicine Visit: 06/19/2023 (in office), Visit date not found (telemedicine) Next Office Visit: 01/27/2024 Hemoglobin AIC Results: Lab Results Component Value Date/Time HEMOGLOBIN A1C - [facility] 6.1 (H) 04/17/2022 12:56 PM HEMOGLOBIN A1C - [facility] 5.0 12/03/2016 11:27 AM HEMOGLOBIN A1C - [facility] 5.2 06/14/2006 12:49 PM BP Readings from Last 1 Encounters: 01/21/24 80/50 Reviewed Health Maintenance below: Health Maintenance Topic Date Due Alpha-1 Antitrypsin Never done Depression Monitoring 01/23/2020 Colonoscopy 08/30/2021 COVID-19 Vaccine ( season) 2023 *CXR OR CT FOR COPD EVER Never done TSH 01/10/2024 Influenza Vaccine (FLU shot) (1) 02/23/2024 Mendez's Esophagus Surveilance 06/02/2024 O2 ASSESSMENT COMPLETED IN PAST YEAR FOR COPD 06/19/2024 recapture Ov already scheduled Labs colon Care Gap Outreach Action Taken: Unable to reach won't ring through documented in this encounter Plan of Treatment Upcoming Encounters Date Type Department Care Team (Late st Contact Info) Description 01/27/2024 11:20 AM EDT Office Visit Family [address] [place] [phone] Angeles Dunne MD [address] [place] [address] [place] [address] 04/06/2024 3:00 PM EDT Nurse Only Ancillary [address] [place] [address] [place], Nurse Annual Wellness [address] [place] [address] [place] [address] 06/22/2024 1:40 PM EST Office Visit Dermatology [address] [place] [address] Nia Hong PA-C [address] [place] [address] [place] [address] 12/21/2024 9:00 AM EDT Office Visit Family [address] [place] [phone] Guera Jay MD [address] [place] [address] [place] [address] Health Maintenance Due Date Last Done Comments [...] Td or Tdap) 10/17/2025 10/18/2015, 08/13/2009, 08/28/2007 Hepatitis C Screening Completed 04/30/2013 Pneumococcal Vaccine: 65+ Years Completed 08/16/2014, 06/30/2012, [...] this encounter Medical Devices Implanted Type Area Technical Professional Device Identifier Shelf Expiration Date Model / Serial / Lot Femoral Nail Retrograde Implanted:Qty: 1 on 10/04/2022 by Gris Middleton, Donell Oliver MD at OR [facility] Left: Knee ANGEL 02/18/2031 2339-1128S / / [id number] Screw Nlk A3 Ti 4.5x36mm - [id number] Implanted:Qty: 1 on 10/04/2022 by Donell Landry Jr., MD at OR [facility] ANGEL : TRAUMA [id number] / / 5.0 Compression Plate Implanted:Qty: 1 on 10/04/2022 by Donell Landry Jr., MD at OR [facility] ANGEL [id number] / / Screw T2 Alpha Adv Lck 5x85 - [id number] Implanted:Qty: 1 on 10/04/2022 by Donell Landry Jr., MD at OR [facility] Left: Knee ANGEL : TRAUMA 07/24/2031 2361-5085S / / [id number] Screw T2 Alpha Adv Lck 5x65 - [id number] Implanted:Qty: 1 on 10/04/2022 by Donell Landry Jr., MD at OR [facility] Left: Knee ANGEL : TRAUMA 07/24/2032 2361-5065S / / [id number] Screw T2 Alpha Adv Lck 5x85 - [id number] Implanted:Qty: 1 on 10/04/2022 by Donell Landry Jr., MD at OR [facility] Left: Knee ANGEL : TRAUMA 02/22/2032 2361-5085S / / [id number] Screw T2 Alpha Lock 5x35mm - [id number] Implanted:Qty: 1 on 10/04/2022 by Donell Landry Jr., MD at OR [facility] Left: Knee ANGEL : TRAUMA 07/24/2032 2360-5035S / / [id number] Screw Gina Lk A3 Ti 5x12mm - [id number] Implanted:Qty: 1 on 10/04/2022 by oDnell Landry Jr., MD at OR [facility] ANGEL : TRAUMA [id number] / / Screw Gina Lk A3 Ti 5x16mm - [id number] Implanted:Qty: 1 on 10/04/2022 by Donell Landry Jr., MD at OR [facility] ANGEL : TRAUMA [id number] / / Washer For 2.4mm/2.7mm/3.5m m - [id number] Implanted:Qty: 2 on 10/04/2022 by Donell Landry Jr., MD at OR [facility] ANGEL : TRAUMA [id number] / / Screw Nlk V2 T10 Ft 3.5x28mm - [id number] Implanted:Qty: 2 on 10/04/2022 by Donell Landry Jr., MD at [facility] ANGEL : TRAUMA [id number] / / documented as of this encounter Advance Directives Documents on File Type Date Recorded Patient Operator Ground Based Air Defence Expl anation Advance Directives and Living Will 10/03/2022 ADVANCE DIRECTIVE / LIVING WILL Power of Powerhouse Operator 10/03/2022 POWER OF A TTORNEY * [...] Power of Attor mel? No Care Teams Extrusion Technician Relationship Specialty Start Date End Date Guera Jay MD [address] [place] [address] [place] [address] PCP - General Family Medicine 06/19/23 documented as of this encounter
--- OUTSIDE RECORDS SUMMARY | 2024-02-24 14:32 | External Medical Summary | Summary of Care ---
Author Name Unknown Organization [facility] Address [address] [place] [address] Phone [phone] Care Team Providers Care Health And Wellness Instructor Name Role Phone Guera Jay MD Primary Care Prov ider Reason for Visit * Reason Onset Date Comments Home Health 01/29/2024 Encounter Details Date Type Department Care Team (Late st Contact Info) Description 01/29/2024 Telephone Family Medicine [address] [phone] Guera Jay MD [address] [place] [address] [place] [address] Home Health Allergies Active Allergy Reactions Criticality Noted Date [...] albuteorl. 1 Each 04/25/2022 Active Saline Nasal [place] 0.65 % Nasal Solution ([place]) Administer 1 [place] into nostril in the morning and 1 [place] at noon and 1 [place] in the evening and 1 [place] before bedtime. 30 mL 11/15/2022 Active Senna [...] 75 MG Oral Tablet (pLAVix)Indications :Atherosclerosis of [place] coronary artery of [place] heart with angina pectoris (HCC) Take 1 [...] every day") Medication Regimen o Other: anoro advair Self-Management plan o High frequency nebulizer [...] meds at length -albuterol rx sent to [place] [facility] -Use Advair BID -has rescue kit -CXR, exercise pulse ox -f/u t/c and home visit next week -needs pulm f/u Mediastinal adenopathy 04/25/2022 Chronic back pain greater than 3 months duration 04/17/2022 Hx of actinic keratosis 10/24/2020 Cervical spinal stenosis 01/27/2020 Atherosclerosis of [place] co ronary artery of [place] heart with stable angina pectoris 10/02/2019 Overview: [...] replacement 1984 and 2006. Pain managed through [facility] pain clinic. 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 Scheduling to fax orders. Chronic obstructive pulmonary disease 07/18/2022 08/08/2022 Overview: Per COPD GOLD Classification Last Assessment & Plan: COPD "RED FLAG" COPD symptoms: o Increased shortness of breath at rest ("I struggle to breathe even when watching TV", "I have to wear or turn up my oxygen just when I'm sitting on the couch") Medication Regimen o Class D - Inhaled Ajtwtkoemfzlqu-NFRG-TFFA Combination Inhaler (Trellegy) Exacerbation Mgt: o Rescue Kit in place in Medication List: Yes. o Used rescue kit in the past month: No o Required IM or IV steroids (Solumedrol) since last visit: No Current exacerbation. Rescue kit initiated. Follow-up scheduled. Hypertensive heart disease [facility] congestive heart failure 05/24/2022 07/18/2022 Overview: [...] 01/22/2019 07/29/2020 Coronary artery disease invo lving [place] coronary artery of [place] heart without angina pectoris 09/19/2017 10/31/2021 Overview: W/ angina on [place] (actinic keratosis) 01/23/201710/24 Bradycardia 06/14/2016 09/19/2017 Essential hypertension with goal blood pressure less than 140/90 10/31/2015 07/04/2022 Last Assessment & Plan: bp stable-not on meds Monitor Chronic cholecystitis 03/10/20092010 ACTIVE CASE MANAGEMENT 03/07/200904/10 Overview: Chela Morris, RN [phone] Other specified hypothyroidism 03/01/2008 08/16/2016 Overview: TSH [...] MEDICATION USE AGREEMENT 09/2010 Overview: Dr Parra [facility] Beta-hakan intolerance documented as of this encounter (statuses as of 01/30/2024) Immunizations Name Administration Dates Next Due COVID-19 mRNA, LNP-s, No Pre serve, 2-Dose Series (M-Factor) 10/13/2020,09/22/2020 Pneumococcal Conjugate Vacc, 13 Valent (Prevnar) [...] 01/22/2019 Hunger Vital Sign Answer Date Recorded Within [...] No 01/29/2024 Does the household have a [facility] source of income? (Household - for ages [...] Telephone Encounter - Bianka Jeff OSA - 01/30/2024 9:18 AM EDT HD appt scheduled, son aware. * Telephone Encounter - Lupis Palumbo LPN - 01/29/2024 3:42 PM EDT HH Admission/Start of Care Admission/Start of Care: Danielle RN, Calling from: Anastacio Patient was Admitted to: [facility], for: Syncope, Orthostatic Hypotension from 01/23 to 01/26 Referral ordered by: [facility] Referral received for: Long-Term, PT, and OT Planned start of care date:Yes, Date 01/28 Start of care completed on: NA Report/Concerns of:None Symptoms: none Vitals: T 97.3 P 87 RR 18 BP 138/84 SP O2 97% 4LPM Narrative: Patient does not want Long-Term, Planning on seeing 1 time per week for 3 weeks and discharging. They will call with any updates or additional concerns from the upcoming HH visit. Last Office Visit: 06/19/2023 Has patient been scheduled or seen in the office for a follow up visit: Needs contacted to schedulefollow up Advised that orders will be signed by Tc Patterson to fax to the office for signature. documented in this encounter Plan of Treatment Upcoming Encounters Date Type Department Care Team (Late st Contact Info) Description 02/11/2024 4:40 PM EDT Office Visit Family Medicine [place] [facility] [address] [place] [phone] Paige Lang CRNP [address] [place] [address] [place] [address] 04/06/2024 3:00 PM EDT Nurse Only Ancillary [address] [place] [address] Gamal, Nurse Annual Wellness [address] [place] [address] [place] [phone] 04/21/2024 11:15 AM EDT Office Visit Cardiology, [facility] [address] [place] [address] Maude Pierce, [address] [place] [address] 06/22/2024 1:40 PM EST Office Visit Dermatology [address] [place] [address] Nia Hong PA-C [address] [place] [address] [place] [address] 08/13/2024 11:30 AM EST Office Visit Cardiology [address] [place] [address] Reji Mendez PA-C [address] [place] [address] 12/21/2024 9:00 AM EDT Office Visit Family Medicine [address] [place] [phone] Guera Jay MD [address] [place] [address] [place] [address] Health Maintenance Due Date Last Done Comments [...] this encounter Medical Devices Implanted Type Area Obgyn Specialist Device Identifier Shelf Expiration Date Model / Serial / Lot Femoral Nail Retrograde Implanted:Qty: 1 on 10/04/2022 by Donell Landry Jr., [place] [facility] [place] Knee ANGEL 02/18/2031 2339-1128S / / [id number] Screw Nlk A3 Ti 4.5x36mm - [id number] Implanted:Qty: 1 on 10/04/2022 by Donell Landry Jr., [place] [facility] [place] ANGEL : TRAUMA [id number] / / 5.0 Compression Plate Implanted:Qty: 1 on 10/04/2022 by Donell Landry Jr., MD [place] [facility] [place] ANGEL [id number] / / Screw T2 Alpha Adv Lck 5x85 - [id number] Implanted:Qty: 1 on 10/04/2022 by Donell Landry Jr., MD [place] [facility] [place]: Knee ANGEL : TRAUMA 07/24/2031 2361-5085S / / [id number] Screw T2 Alpha Adv Lck 5x65 - [id number] Implanted:Qty: 1 on 10/04/2022 by Donell Landry Jr., MD [place] [facility] [place]: Knee ANGEL : TRAUMA 07/24/2032 2361-5065S / / [id number] Screw T2 Alpha Adv Lck 5x85 - [id number] Implanted:Qty: 1 on 10/04/2022 by Donell Landry Jr., MD [place] [facility] [place]: Knee ANGEL : TRAUMA 02/22/2032 2361-5085S / / [id number] Screw T2 Alpha Lock 5x35mm - [id number] Implanted:Qty: 1 on 10/04/2022 by Donell Landry Jr., MD [place] [facility] [place]: Knee ANGEL : TRAUMA 07/24/2032 2360-5035S / / [id number] Screw Gina Lk A3 Ti 5x12mm - [id number] Implanted:Qty: 1 on 10/04/2022 by Donell Landry Jr., MD [place] [facility] [place] ANGEL : TRAUMA [id number] / / Screw Gina Lk A3 Ti 5x16mm - [id number] Implanted:Qty: 1 on 10/04/2022 by Donell Landry Jr., MD [place] [facility] [place] ANGEL : TRAUMA [id number] / / Washer For 2.4mm/2.7mm/3.5m m - [id number] Implanted:Qty: 2 on 10/04/2022 by Donell Landry Jr., MD [place] [facility] [place] ANGEL : TRAUMA [id number] / / Screw Nlk V2 T10 Ft 3.5x28mm - [id number] Implanted:Qty: 2 on 10/04/2022 by Donell Landry Jr., MD [place] [facility] [place] ANGEL : TRAUMA [id number] / / documented as of this encounter Advance Directives Documents on File Type Date Recorded Patient Assembly Press Operator Expl anation Advance Directives and Living Will 10/03/2022 ADVANCE DIRECTIVE / LIVING WILL Power of Freight Broker 10/03/2022 POWER OF A TTORNEY * Full [...] Power of Attor mel? No Care Teams Health And Wellness Instructor Relationship Specialty Start Date End Date Guera Jay MD [address] [place] [address] [place] [phone] PCP - General Family Medicine 06/19/23 documented as of this encounter
--- OUTSIDE RECORDS SUMMARY | 2024-02-24 14:32 | External Medical Summary | Summary of Care ---
Author Name Unknown Organization [facility] Address [address] [place] [address] Phone [phone] Care Team Providers Care Public Health Name Role Phone Guera Jay MD Primary Care Prov ider Encounter Details Date Type Department Care Team (Late st Contact Info) Description 02/12/2024 11:15 AM EDT Scheduled Telephone Care Coordination and Integration [address] [place], [place] [phone] Ryne Connor [facility] Supervisor [employer] [address] [place], [place] [phone] Allergies Active Allergy Reactions Criticality Noted Date [...] albuteorl. 1 Each 04/25/2022 Active Saline Nasal [place] 0.65 % Nasal Solution ([place]) Administer 1 [place] into nostril in the morning and 1 [place] at noon and 1 [place] in the evening and 1 [place] before bedtime. 30 mL 11/15/2022 Active Senna [...] 75 MG Oral Tablet (pLAVix)Indications :Atherosclerosis of [place] coronary artery of [place] heart with angina pectoris (HCC) Take 1 [...] length -albuterol rx sent to [facility] -Use Advair BID -has rescue kit -CXR, exercise pulse ox -f/u t/c and home visit next week -needs pulm f/u Mediastinal adenopathy 04/25/2022 Chronic back pain greater than 3 months duration 04/17/2022 Hx of actinic keratosis 10/24/2020 Cervical spinal stenosis 01/27/2020 Atherosclerosis of [place] co ronary artery of [place] heart with stable angina pectoris 10/02/2019 Overview: [...] replacement 1984 and 2006. Pain managed through [facility] pain clinic. 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 Scheduling to fax orders. Chronic obstructive pulmonary disease 07/18/2022 08/08/2022 Overview: Per COPD GOLD Classification Last Assessment & Plan: COPD "RED FLAG" COPD symptoms: o Increased shortness of breath at rest ("I struggle to breathe even when watching TV", "I have to wear or turn up my oxygen just when I'm sitting on the couch") Medication Regimen o Class D - Inhaled Yovivzzttewqhq-TYOT-EJUH Combination Inhaler (Trellegy) Exacerbation Mgt: o Rescue [...] 01/22/2019 07/29/2020 Coronary artery disease invo lving [place] coronary artery of [place] heart without angina pectoris 09/19/2017 10/31/2021 Overview: W/ angina on [place] (actinic keratosis) 01/23/201710/24 Bradycardia 06/14/2016 09/19/2017 Essential hypertension with goal blood pressure less than 140/90 10/31/2015 07/04/2022 Last Assessment & Plan: bp stable-not on meds Monitor Chronic cholecystitis 03/10/20092010 ACTIVE CASE MANAGEMENT 03/07/200904/10 Overview: Chela Morris, RN [phone] Other specified hypothyroidism 03/01/2008 08/16/2016 Overview: TSH [...] MEDICATION USE AGREEMENT 09/2010 Overview: Dr Parra [facility] Beta-hakan intolerance documented as of this encounter (statuses as of 02/12/2024) Immunizations Name Administration Dates Next Due COVID-19 mRNA, LNP-s, No Pre serve, 2-Dose Series ([employer]) 10/13/2020,09/22/2020 Pneumococcal Conjugate Vacc, 13 Valent (Prevnar) [...] No 01/29/2024 Does the household have a [facility] source [facility] income? (Household - for [...] No 10/04/2022 documented as of this encounter Progress Notes * Ryne Cnonor [facility] Supervisor [employer] - 02/12/2024 11:23 AM EDT Telemedicine visit: No Community Health Supervisor [employer] (MAGDIEL) documentation: MAGDIEL follow up phone call for RNCM and reached the patient's voicemail. CHW left a brief message with my callback information. Ryan Connor Community Health Worker Lead PURA [place] [phone] Electronically signed by Ryne Connor [facility] Supervisor [employer] at 02/12/2024 11:25 AM EDT documented in this encounter Plan of Treatment Upcoming Encounters Date Type Department Care Team (Late st Contact Info) Description 04/06/2024 3:00 PM EDT Nurse Only Ancillary [address] [place] [address] [place], Nurse [address] [place] [address] 04/21/2024 11:15 AM EDT Office Visit Cardiology, [facility] [address] [place] [address] Maude Pierce, [address] [place] [phone] 06/22/2024 1:40 PM EST Office Visit Dermatology [address] [place] [address] Nia Hong PA-C [address] [place] [address] [place] [address] 08/13/2024 11:30 AM EST Office Visit Cardiology [address] [place] [address] Reji Mendez PA-C [address] [place] [address] 12/21/2024 9:00 AM EDT Office Visit Family Medicine [address] [place] [phone] Guera Jay MD [address] [place] [address] [place] [address] Health Maintenance Due Date Last Done Comments [...] encounter Medical Devices Implanted Type Area Medical Claims Processor Device Identifier Shelf Expiration Date Model / Serial / Lot Femoral Nail Retrograde Implanted:Qty: 1 on 10/04/2022 [place] Donell Landry Jr[place] [facility] [place]nee ANGEL 02/18/2031 2339-1128S / / [id number] Screw Nlk A3 Ti 4.5x36mm - [id number] Implanted:Qty: 1 on 10/04/2022 by Donell Landry Jr., [place] [facility] [place]EL : TRAUMA [id number] / / 5.0 Compression Plate Implanted:Qty: 1 on 10/04/2022 by Donell Landry Jr., [place] [facility] [place]EL [id number] / / Screw T2 Alpha Adv Lck 5x85 - [id number] Implanted:Qty: 1 on 10/04/2022 by oDnell Landry Jr., [place] [facility] [place]: Knee ANGEL : TRAUMA 07/24/2031 2361-5085S / / [id number] Screw T2 Alpha Adv Lck 5x65 - [id number] Implanted:Qty: 1 on 10/04/2022 by Donell Landry Jr., [place] [facility] [place]: Knee ANGEL : TRAUMA 07/24/2032 2361-5065S / / [id number] Screw T2 Alpha Adv Lck 5x85 - [id number] Implanted:Qty: 1 on 10/04/2022 by Donell Landry Jr., [place] [facility] [place]: Knee ANGEL : TRAUMA 02/22/2032 2361-5085S / / [id number] Screw T2 Alpha Lock 5x35mm - [id number] Implanted:Qty: 1 on 10/04/2022 by Donell Landry Jr., [place] [facility] [place] Knee ANGEL : TRAUMA 07/24/2032 2360-5035S / / [id number] Screw Gina Lk A3 Ti 5x12mm - [id number] Implanted:Qty: 1 on 10/04/2022 by Donell Landry Jr., [place] [facility] [place]EL : TRAUMA [id number] / / Screw Gina Lk A3 Ti 5x16mm - [id number] Implanted:Qty: 1 on 10/04/2022 by Donell Landry Jr., [place] [facility] [place]EL : TRAUMA [id number] / / Washer For 2.4mm/2.7mm/3.5m m - [id number] Implanted:Qty: 2 on 10/04/2022 by Donell Landry Jr., MD at [facility] ANGEL : TRAUMA [id number] / / Screw Nlk V2 T10 Ft 3.5x28mm - [id number] Implanted:Qty: 2 on 10/04/2022 by Donell Landry Jr., [place] [facility] [place]EL : TRAUMA [id number] / / documented as of this encounter Advance Directives Documents on File Type Date Recorded Patient Residential Manager Expl anation Advance Directives and Living Will 10/03/2022 ADVANCE DIRECTIVE / LIVING WILL Power of Biofuels Technology Development Manager 10/03/2022 POWER OF A TTORNEY [...] of Attor mel? No Care Teams Public Health Relationship Specialty Start Date End Date Guera Jay MD [address] [place] [address] [place] [phone] PCP - General Family Medicine 06/19/23 documented as of this encounter
--- OUTSIDE RECORDS SUMMARY | 2024-02-24 14:32 | External Medical Summary | Summary of Care ---
Author Name Unknown Organization [facility] Address [address] [place] [address] Phone [phone] Care Team Providers Care Client Sales And Service Officer Name Role Phone Guera Jay MD Primary Care Prov ider Reason for Visit * Reason Onset Date Comments No Show 02/14/2024 [facility] No Show Auto mation Encounter Details Date Type Department Care Team (Late st Contact Info) Description 02/14/2024 Telephone Family Medicine [address] [phone] [place] [address] No Show ([place] No Show Automation) Allergies Active Allergy Reactions Criticality Noted Date Comments Adhesive Tape Other (Please comment) Low 03/09/2009 Affected area blisters. Latex 11/23/2014 Patient denies this allergy documented as of this encounter (statuses as of 02/14/2024) Medications Medication Sig Dispensed Refills Start Date End Date Status Acetaminophen 500 MG Oral Tablet Take 2 Tablets by mouth 3 times a day as needed for Pain, Moderate or Pain, Severe. Active Flutter DeviceIndications:B ronchiectasis without complication (HCC) Use for 10 min twice daily. pretreat with albuteorl. 1 Each 04/25/2022 Active Saline Nasal [place] 0.65 % Nasal Solution ([place]) Administer 1 [place] into nostril in the morning and 1 [place] at noon and 1 [place] in the evening and 1 [place] before bedtime. 30 mL 11/15/2022 Active Senna 8.6 MG Oral Tablet Take 2 Tablets by mouth in the morning and 2 Tablets before bedtime. 60 Tablet 1 11/15/2022 Active Additional Information Patient not taking.Reported on 01/21/2024 Anoro Ellipta 62.5-25 MCG/ACT Inhalation Aerosol Powder Breath Activated (umeclidinium-vilan terol) Inhale 1 Puff by mouth in the morning. 30 Each 12/04/2022 Active DULoxetine HCl 30 MG Oral [...] 75 MG Oral Tablet (pLAVix)Indications :Atherosclerosis of [place] coronary artery of [place] heart with angina pectoris (HCC) Take 1 [...] as of this encounter (statuses as of 02/14/2024) Active Problems Problem Noted Date Diagnosed Date [...] hours around the clock o Other/Additional Comments: anoro adv Exacerbation plan o Solumedrol 60mg IM/IV [...] 10/24/2020 Cervical spinal stenosis 01/27/2020 Atherosclerosis of [place] co ronary artery of [place] heart with stable angina pectoris 10/02/2019 Overview: [...] replacement 1984 and 2006. Pain managed through [facility] pain clinic. 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 Scheduling to fax orders. Chronic obstructive pulmonary disease 07/18/2022 08/08/2022 Overview: Per COPD GOLD Classification Last Assessment & Plan: COPD "RED FLAG" COPD symptoms: o Increased shortness of breath at rest ("I struggle to breathe even when watching TV", "I have to wear or turn up my oxygen just when I'm sitting on the couch") Medication Regimen o Class D - Inhaled Oplwuotoifgtvb-MOKC-FKAL Combination Inhaler (Trellegy) Exacerbation Mgt: o Rescue [...] 01/22/2019 07/29/2020 Coronary artery disease invo [place]ving [place] coronary artery of [place] heart without angina pectoris 09/19/2017 10/31/2021 Overview: [...] MEDICATION USE AGREEMENT 09/2010 Overview: Dr Parra [facility] Beta-hakan intolerance documented as of this encounter (statuses as of 02/14/2024) Immunizations Name Administration Dates Next Due COVID-19 [...] encounter Miscellaneous Notes * Telephone Encounter - Amrit, No Show - 02/14/2024 7:37 AM EDT Dear Gwyn Shaver, Looks like you missed an appointment with PAIGE MARX on 02/11/2024 at 04:40 PM. If you haven't already rescheduled, you have a couple of options: Reschedule in [email or web address] Call us at [phone] Can't make a future appointment? Cancel and let someone else have your spot! It's easy to do via [employer] or by calling us. [facility]. We hope to see you back in our office soon. Sincerely, PAIGE MARX documented in this encounter Plan of Treatment Upcoming Encounters Date Type Department Care Team (Late st Contact Info) Description 04/06/2024 3:00 PM EDT Nurse Only Ancillary [address] [place] [address] [place], Nurse [address] [place] [phone] 04/21/2024 11:15 AM EDT Office Visit Cardiology, [facility] [address] [facility] [place] [address] Maude Pierce [address] [place] [address] 06/22/2024 1:40 PM EST Office Visit Dermatology [address] [place] [address] Nia Hong PA-C [address] [place] [address] [place] [address] 08/13/2024 11:30 AM EST Office Visit Cardiology [address] [place] [address] Reji Mendez PA-C [address] [place] [address] 12/21/2024 9:00 AM EDT Office Visit Family Medicine [address] [place] [phone] Guera Jay MD [address] [place] [address] [place] [address] Health Maintenance Due Date Last Done Comments [...] this encounter Medical Devices Implanted Type Area Replenisher Device Identifier Shelf Expiration Date Model / Serial / Lot Femoral Nail Retrograde Implanted:Qty: 1 on 10/04/2022 by Donell Landry Jr., MD at [facility] Left: Knee ANGEL 02/18/2031 [id number] / / [id number] Screw Nlk A3 Ti 4.5x36mm - [id number] Implanted:Qty: 1 on 10/04/2022 by Donell Landry Jr., MD at [facility] ANGEL : TRAUMA [id number] / / 5.0 Compression Plate Implanted:Qty: 1 on 10/04/2022 by Donell Landry Jr., MD at [facility] ANGEL [id number] / / Screw T2 Alpha Adv Lck 5x85 - [id number] Implanted:Qty: 1 on 10/04/2022 by Donell Landry Jr., MD at [facility] Left: Knee ANGEL : TRAUMA 07/24/2031 [id number] / / [id number] Screw T2 Alpha Adv Lck 5x65 - [id number] Implanted:Qty: 1 on 10/04/2022 by Donell Landry Jr., MD at OR [facility] Left: Knee ANGEL : TRAUMA 07/24/2032 [id number] / / [id number] Screw T2 Alpha Adv Lck 5x85 - [id number] Implanted:Qty: 1 on 10/04/2022 by Donell Landry Jr., MD at OR [facility] Left: Knee ANGEL : TRAUMA 02/22/2032 [id number] / / [id number] Screw T2 Alpha Lock 5x35mm - [id number] Implanted:Qty: 1 on 10/04/2022 by Donell Landry Jr., MD at OR [facility] Left: Knee ANGEL : TRAUMA 07/24/2032 [id number] / / [id number] Screw Gina Lk A3 Ti 5x12mm - [id number] Implanted:Qty: 1 on 10/04/2022 by Donell Landry Jr., MD at [facility] ANGEL : TRAUMA [id number] / / Screw Gina Lk A3 Ti 5x16mm - [id number] Implanted:Qty: 1 on 10/04/2022 by Donell Landry Jr., MD at OR [facility] ANGEL : TRAUMA [id number] / / Washer For 2.4mm/2.7mm/3.5m m - [id number] Implanted:Qty: 2 on 10/04/2022 by Donell Landry Jr., MD at OR [facility] ANGEL : TRAUMA [id number] / / Screw Nlk V2 T10 Ft 3.5x28mm - [id number] Implanted:Qty: 2 on 10/04/2022 by Donell Landry Jr., MD at [facility] ANGEL : TRAUMA [id number] / / documented as of this encounter Advance Directives Documents on File Type Date Recorded Patient Bioinformatics Assistant Expl anation Advance Directives and Living Will 10/03/2022 ADVANCE DIRECTIVE / LIVING WILL Power of Sap Functional Analyst 10/03/2022 POWER OF A TTORNEY [...] Power of Attor mel? No Care Teams Client Sales And Service Officer Relationship Specialty Start Date End Date Guera Jay MD [address] [place] [address] [place] [phone] PCP - General Family Medicine 06/19/23 documented as of this encounter
--- OUTSIDE RECORDS SUMMARY | 2024-02-24 14:33 | External Medical Summary | Summary of Care ---
Author Name Unknown Organization [facility] Address [address] [place] [address] Phone [phone] Care Team Providers Care Market Editor Name Role Phone Guera Jay MD Primary Care Prov ider Reason for Visit * Reason Comments Hospital Follow-Up [facility] 12/17-12/23/23. [facility] 12/19/23. Syncope on occasion. Occurred today when coming in. Does not pass out long. Ongoing productive cough and dry the rest of the time. Palpitations when resting for 2-3 minutes intermittently a couple times a week. Dizziness when standing for a a few seconds. Denies chest pain and edema. Encounter Details Date Type Department Care Team (Late st Contact Info) Description 01/21/2024 2:30 PM EDT Office Visit Cardiology, [facility] [address] [place] [address] Varsha Banerjee PA-C [address] [place] [phone] Generalized weakness*; Hypotension, unspecified hypotension type; Syncope, unspecified syncope type; SVT (supraventricular tachycardia) ([facility]); Pacemaker-mediated tachycardia Allergies Active Allergy Reactions Criticality Noted Date Comments Adhesive Tape Other (Please comment) Low 03/09/2009 Affected area blisters. Latex 11/23/2014 Patient denies this allergy documented as of this encounter (statuses as of 01/21/2024) Medications Medication Sig Dispensed Refills Start Date End Date Status Acetaminophen 500 MG Oral Tablet Take 2 Tablets by mouth 3 times a day as needed for Pain, Moderate or Pain, Severe. Active Flutter DeviceIndications: Bronchiectasis without complication (HCC) Use for 10 min twice daily. pretreat with albuteorl. 1 Each 04/25/2022 Active Saline Nasal Waldo 0.65 % Nasal Solution ([place]) Administer 1 Waldo into nostril in the morning and 1 Waldo at noon and 1 Waldo in the evening and 1 Waldo before bedtime. 30 mL 11/15/2022 Active Senna [...] 75 MG Oral Tablet (pLAVix)Indication s:Atherosclerosis of [place] coronary artery of [place] heart with angina pectoris (HCC) Take 1 [...] as of this encounter (statuses as of 01/21/2024) Active Problems Problem Noted Date Diagnosed Date [...] abdomen and pelvis placed. Pt to use [facility] in [place]. Scheduling to fax orders. COPD, group B, [...] meds at length -albuterol rx sent to [place] [facility] -Use Advair BID -has rescue kit [...] oxygen. Cervical spinal stenosis 01/27/2020 Atherosclerosis of [place] co ronary artery of [place] heart with stable angina pectoris 10/02/2019 Overview: [...] 1984 and 2006. Pain managed through [facility] pain clinic. 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 12/22 Overview: [place] Last Assessment & Plan: Follows with GI [...] as of this encounter (statuses as of 01/21/2024) Resolved Problems Problem Noted Date Diagnosed Date [...] Medication Regimen o Class D - Inhaled Heidyqcclpclxs-RVQG-NOTB Combination Inhaler (Trellegy) Exacerbation Mgt: o Rescue [...] 01/22/2019 07/29/2020 Coronary artery disease invo lving [place] coronary artery of [place] heart without angina pectoris 09/19/2017 10/31/2021 Overview: W/ angina on PL [place] (actinic keratosis) 01/23/201710/24 Bradycardia 06/14/2016 09/19/2017 Essential hypertension with goal blood pressure less than 140/90 10/31/2015 07/04/2022 Last Assessment & Plan: bp stable-not on meds Monitor Chronic cholecystitis 03/10/20092010 ACTIVE CASE MANAGEMENT 03/07/200904/10 Overview: Chela Morris, RN [phone] Other specified hypothyroidism 03/01/2008 08/16/2016 Overview: TSH [...] USE AGREEMENT 09/2010 Overview: Dr Parra [facility] Beta-hakan intolerance documented as of this encounter (statuses as of 01/21/2024) Immunizations Name Administration Dates Next Due COVID-19 [...] on file documented as of this encounter Last Filed Vital Signs Vital Sign Reading Time Taken Comments Blood Pressure 80/50 01/21/2024 2:28 PM EDT Pulse 76 01/21/2024 2:28 PM EDT Temperature - - Respiratory Rate 16 01/21/2024 2:28 PM EDT Oxygen Saturation - - Inhaled Oxygen Concentration - - Weight 91.6 kg (202 lb) 01/21/2024 2:28 PM EDT Height - - Body Mass Index 28.98 10/04/2022 3:15 PM EDT documented in this encounter Functional Status Functional Status Response [...] as of this encounter Progress Notes * Varsha Banerjee PA-C - 01/21/2024 2:29 PM EDT Images from the original note were not included. 01/21/2024 Cardiology Hospital F/U: HPI: Patient is a 78-year-old male who presents today for cardiology hospital follow-up. Last clinic evaluation approximately 1 and half years ago. Former patient of Dr. Merritt. This is his first visit with the undersigned. History includes: Past Medical History: 1. Symptomatic bradycardia prompting implantation of dual-chamber permanent pacemaker in 2015 2. Coronary heart disease, status postcardiac catheterization at [facility] in November, for the indication of unstable angina with a proximal 50% LAD lesion that was hemodynamically significant by FFR. There was a 99% mid LAD lesion, small caliber vessel for which balloon angioplasty was performed, attempts were made to pass a 2.25 mm stent however PCI unsuccessful as the stent could not be passed beyond the proximal portion of the stenosis due to small vessel size and an acute angle of the culprit lesion and therefore medical management pursued 3. Diastolic dysfunction 4. COPD 5. Hypertension 6. Dyslipidemia 7. Chronic ambulatory dysfunction 8. SVT noted on previous pacemaker interrogations and during hospital stay, Oct, 2022 9. Pacemaker mediated tachycardia noted during admission in November 2023 10. Chart history of Paroxysmal VT Patient recently admitted to [facility] in November 2023 with acute sepsis, multifocal pneumonia and lactic acidosis, hypokalemia. Evaluated by dr. Bangura during admission - Noted to be in SVT on initial presentation with spontaneous conversion to sinus rhythm, transient ventricular paced rhythm noted on te lemetry, now in sinus rhythm with atrial pacing. Device interrogation reviewed with findings of generator longevity of 2.5 years. Most recent interrogation had been back in 2022. He has had frequent brief episodes of supraventricular tachycardia in the last year rates often in the range of 135-145 bpm. Echocardiogram performed 12/19/2023 revealed moderate concentric left ventricular perjury, no regional wall motion motives, LVEF normal at 60-65%, mild aortic valve sclerosis without stenosis, grade 1 diastolic dysfunction, pulmonary artery systolic pressure estimated be 35 mmHg which is the upper limit of normal. Mild troponin I elevation with flat trend, felt to be related to myocardial strain rather than acute coronary syndrome. Metoprolol was increased and pacemaker adjustments made by [employer] rep. Atrial rate stabilization causing pacing up to 100 bpm at that time, patient losing AVconduction which would initiate ventricular pacing. Findings suggestive of pacemaker mediated tachycardia. Pacemaker programming changes: 1. Atrial rate stabilization turned off. 2. Atrial preference pacing turned off. Patient reports since discharge he has felt 'poorly'. Unable to walk and perform daily activities. He has several episodes of syncope. Most recent episode of syncope was today coming into the clinic. He tried to get out of the car andfell to the ground, possibly losing consciousness. Patient is a poor historian. Family not much help. Son refuses to say anything but did report to the nurse privately that patient is "not doing anything' and not taking his meds. Patient reports he does not remember taking his meds this morning. reports he has been more confused and lethargic. Patient reports he has not had anything to eat and only 1 cup of coffee as of 2:30 this afternoon. He is significantly hypotensive upon repeat evaluation in the exam room. Pacemaker interrogation reviews episode of tachyarrhythmia around 2:00 PM lasting 5 minutes. Review of Systems: See HPI for pertinent positives. All others negative, other than those noted in HPI. 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 (HCC) Cervical [...] not resuscitate) Supraventricular tachycardia (HCC) Urinary frequency Social History Tobacco Use Smoking status: Never Smokeless tobacco: Former Types: Snuff Quit date: 06/24/1971 Vaping Use Vaping status: Never Used Substance Use Topics Alcohol use: No Comment: occasional Drug use: No Family History Problem Relation Name Age of Onset Asthma Mother Diabetes Mother Renal Hx Mother kidney stones Heart Disorder Mother CHF, age 96 Other (Unknown) Father Heart disease Brother Isidoro No Past Hx Son Other (MVA) Sister Past Surgical History: Procedure Laterality Date AMPUTATION OF FINGER/THUMB 08/13/2009 AMPUTATED TIPS OF 3 FINGERS ARTHROPLASTY KNEE TOTAL Left 10/29/2017 Dr Yip BRONCHOSCOPY W/ BRONCHIAL BIOPSY 03/10/2002 subcentimeter nodes in lungs, possibly related to infection, treated with Avelox and prednisone CARDIAC ANGIOPLASTY, PERCUTANEOUS, 1 ARTERY 12/04/2016 50% prox LAD and 99% mid LAD angioplasty CARDIAC ANGIOPLASTY, PERCUTANEOUS, 1 ARTERY 12/03/2016 PTCA, CARDIAC ANGIOPLASTY, PERCUTANEOUS, 1 ARTERY performed by Yudelka Kim MD at [facility] CARDIAC CATH SCANNED RESULT 10/18/2011 ostial disease, 30% circ, normal EF COLONOSCOPY W/ LESION REMOVAL, SNARE 06/28/2006 polpy ws resected at 30cm and retrieved-DR MEHTA COLONOSCOPY, DIAGNOSTIC (RECTUM) 08/30/2016 sigmoid diverticulosis, repeat 5 yrs/[facility] COLONOSCOPY, REMOVE LESION, W/SNARE 10/24/2007 Dr Mehta 1 cm polyp at 20 cm, snared COLORECTAL CANCER SCREEN; COLON 03/03/1998 colonoscopy to cecum shows only scattered diverticuli CORONARY ARTERY DILATION, BALLOON 10/17/1997 Dr Day, [facility] CT ABDOMEN W IV AND W ORAL CONTRAST 09/07/2002 no space occupying hepatic or splenic masses, no pancreatic masses, no solid renal masses, no abdominal lymph nodes. CT ABDOMEN W WO IV AND W ORAL CONTRAST 12/02/2006 possible fatty infiltration of liver CT C SPINE WO CONTRAST 11/04/2012 multilevel degenerative disease, most marked C6-7 CT CHEST W CONTRAST 09/07/2002 mildly enlarged nonspecif left hilar node, borderline mediastinal nodes, no suspicious pulmonary masses, no CT evidence for aortic dissection CT HEAD/BRAIN 11/04/2012 no acute injury, nasal turbinates swollen CT SINUSES WO CONTRAST 06/13/2011 right nasal spur. mild mucosal thickening maxillary sinuses CTA CHEST NON-CORONARY W CONTRAST 01/29/2014 no PE, hilar adenopathy, possible right tracheomalacia CV STRESS (PERSANTINE) 12/27/[address] [facility] [address] saleh: symptoms and ekg changes suggesting but not diagnostic of pharmacologically induced myocardial ischemia with dipyridamole. DESTRUCTION PREMALIGNANT LESION 1ST 02/11/[address] Mae Pena- [place] ECHO, COMPLETE (2D), TRANS-THORACIC 03/02/2009 mod LVH, EF 60-65%, no segmental wall motion abnormality, LA 4.7 cm ECHO, STRESS (DOBUTAMINE) 03/15/2008 mild conc LVH, nl LV function, diastolic dysfunction, stress echo findings suggest ischemia involving a small portion of apical inferior LV wall ECHO,TTE W/O SPECTRAL + COLOR-FLOW DOPPLER 09/07/2002 nl ef 60-65% with diastolic dysfunction, possible aortic dissection EGD, FLEXIBLE, DIAGNOSTIC 07/18/2017 reflux on bx, repeat 1 yr / [facility] EGD, FLEXIBLE, DIAGNOSTIC 01/08/2019 Mendez's esophagitis, repeat 1 yr/ESOPHAGOGASTRODUODENOSCOPY (EGD), FLEXIBLE, TRANSORAL, DIAGNOSTIC performed by Raúl Dela Cruz MD at ENDOSCOPY [facility] EGD, FLEXIBLE, DIAGNOSTIC 06/02/2021 acid reflux, hiatal hernia / ESOPHAGOGASTRODUODENOSCOPY (EGD), FLEXIBLE, TRANSORAL, DIAGNOSTIC performed by Raúl Dela Cruz MD at ENDOSCOPY [facility] ELECTRIC STIMULATION THERAPY [facility] EMG & NCV, 2 EXTREMITIES 07/26/2006 mild sensory neuropathy FEMUR FX, REPAIR Left 10/04/2022 OPEN TREATMENT DISTAL FEMORAL CONDYLE FRACTURE performed by Donell Landry Jr., MD at [place] [facility] FLEX SIG, GI REFERRAL OP 02/11/1998 small sessile polyp at 24 cm, but not lseen on colonoscopy FLUORO UPPER GI WITHOUT AIR WO KUB 06/30/2008 normal swallowing, prominant diverticula in duodenum. [facility] KNEE ARTHROSCOPY/MENISCECTOMY left knee, maybe in 1980s. LAPAROSCOPY; CHOLECYSTECTOMY 03/02/2009 with intraoperative cholangiogram, Dr Rodriguez MRI KNEE WO CONTRAST 12/06/2006 complex tear of medial and lateral meniscus, chondromalacia of medial compartment MYOCARDIAL STRESS - PHARMACOLOGIC, NUC MED 04/12/2009 NL LV size and function, no wall motion abnormalities, EF 54% NEEDLE BIOPSY OF LUNG/MEDIASTINUM 10/03/2016 negative for malignancy NM MYOCARDIAL PERFUSION IMAGING SPECT MULTIPLE STUDIES WITH PHARMACOLOGIC INTERVENTION 10/15/2011 EF 59%, inferior hypokinesis, no inducible ischemia NOCTURNAL HOME OXIMETRY (OP) 03/02/2014 average 91.8%, dropped to 56% for 10 seconds NUC MED-HEPATOBILIARY SCAN 03/01/2009 acute cholecystitis, nonvisualization of GB, biliary reflux into stomacy PACEMAKER-DEFIBRILLATOR ELECTRODE INSERT, DUAL N/A 06/06/2016 [facility] REPLANTATION OF DIGIT, COMPLETE 1997? Buzz saw accident to left hand and was Life Flighted to [place] for amputation of left index fingerand revision of several others REVISION OF TOTAL HIP JOINT SURGERY 05/1995 [facility]. Fell and broke hip in 1984 REVISION OF TOTAL HIP JOINT SURGERY 04/2007 right redo total hip SACROILIAC JOINT INJECT W/GUIDANCE 08/01/2020 INJECTION SACROILIAC JOINT performed by Gurpreet Zamora, DO at OR [facility] TOTAL HIP REPLACEMENT & PROSTHESIS 1987 left US AORTA 02/26/2017 2.7x2.2 cm, no AAA VASC DUPLEX VENOUS LE BILAT 10/16/2007 no DVT VASC DUPLEX VENOUS LE BILAT 01/29/2014 DVT left leg below knee involving posterior tibial nad peroneal, alsd 5.4 cm Davila's cyst VASC DUPLEX VENOUS LE BILAT 02/16/2014 left Davila's cyst, no DVT Social History Tobacco Use Smoking status: Never Smokeless tobacco: Former Types: Snuff Quit date: 06/24/1971 Vaping Use Vaping status: Never Used Substance Use Topics Alcohol use: No Comment: occasional Drug use: No Allergies as of 01/21/2024 - Reviewed 01/21/2024 Allergen Reaction Noted Latex 11/23/2014 Adhesive tape Other (Please comment) 03/09/2009 Current Outpatient Medications Medication Sig Dispense Refill Acetaminophen 500 MG Oral Tablet Take 2 Tablets by mouth 3 times a day as needed for Pain, Moderateor Pain, Severe. Saline Nasal Waldo 0.65 % Nasal Solution ([place]) Administer 1 Waldo into nostril in the morning and 1Spray at noon and 1 Waldo in the evening and 1 Waldo before bedtime. 30 mL 0 Anoro Ellipta 62.5-25 MCG/ACT Inhalation Aerosol Powder Breath Activated (umeclidinium-vilanterol) Inhale 1 Puff by mouth in the morning. 30 Each 5 Levothyroxine Sodium 75 MCG Oral Tablet (Levoxyl) TAKE 1 TABLET BY MOUTH DAILY AT LEAST 30 MINUTES PRIOR TO FIRST MEAL OF THE DAY OR OTHER MEDICATIONS 100 Tablet 3 Amitriptyline HCl 25 MG Oral Tablet (Elavil) Take 2 Tablets by mouth at bedtime. 180 Tablet 1 Tamsulosin HCl 0.4 MG Oral Capsule (Flomax) Take 2 Capsules by mouth in the morning. 90 Capsule 3 DULoxetine HCl 60 MG Oral Capsule Delayed Release Particles (Cymbalta) TAKE ONE CAPSULE BY MOUTH EVERY EVENING 90 Capsule 3 Losartan Potassium 50 MG Oral Tablet (Cozaar) TAKE ONE TABLET BY MOUTH EVERY DAY IN THE MORNING 30 Tablet 5 Metoprolol Succinate ER 25 MG Oral Tablet Extended Release 24 Hour (toPROL XL) TAKE ONE AND ONE-HALF TABLETS BY MOUTH EVERY MORNING 135 Tablet 0 Clopidogrel Bisulfate 75 MG Oral Tablet (pLAVix) Take 1 Tablet by mouth in the morning. 90 Tablet 3 Finasteride 5 MG Oral Tablet (Proscar) Take 1 Tablet by mouth in the morning. 90 Tablet 3 Atorvastatin Calcium 80 MG Oral Tablet (Lipitor) Take 1 Tablet by mouth in the morning. 90 Tablet 3 Pantoprazole Sodium 40 MG Oral Tablet Delayed Release (Protonix) Take 1 Tablet by mouth in the morning. 90 Tablet 3 DULoxetine HCl 30 MG Oral Capsule Delayed Release Particles (Cymbalta) Take 1 capsule by mouth every evening 90 Capsule 0 Gabapentin 300 MG Oral Capsule (Neurontin) TAKE ONE CAPSULE BY MOUTH THREE TIMES A DAY IN THE MORNING, AT NOON AND BEFORE BEDTIME 270 Capsule 1 Ipratropium-Albuterol 0.5-2.5 (3) MG/3ML Inhalation Solution (Duoneb) Inhale 1 vial via nebulizer every 6 hours as needed for Shortness of Breath. 360 mL 5 Flutter Device Use for 10 min twice daily. pretreat with albuteorl. 1 Each 0 Senna 8.6 MG Oral Tablet Take 2 Tablets by mouth in the morning and 2 Tablets before bedtime. (Patient not taking: Reported on 01/21/2024) 60 Tablet 1 DULoxetine HCl 30 MG Oral Capsule Delayed Release Particles (Cymbalta) Take 1 Capsule by mouth at bedtime. Nitroglycerin 0.4 MG Sublingual Tablet Sublingual (Nitrostat) TAKE 1 TABLET BY MOUTH EVERY 5 MINUTES NEEDED WITH CHEST PAIN UP TO 3 DOSES IN 15 MINUTES (Patient not taking: Reported on 01/21/2024) 25 Tablet 11 No current facility-administered medications for this visit. PHYSICAL EXAM: Vital Signs: BP 80/50 | Pulse 76 | Resp 16 | Wt 91.6 kg (202 lb) | BMI 28.98 kg/m | BSA 2.13 m On my repeat 78/40 equal in both arms General: Pale. Weak. NAD Neck: No JVD. No bruit. Cardiovascular: Regular Pulmonary: Decreased breath sounds. Abdomen: Bowel sounds x 4, soft. No rebound, guarding or tenderness. No organomegaly. Extremities: No clubbing, cyanosis or edema. +2 pedal pulses bilaterally. Cardiac studies/labs: Device interrogation today: (copy of report sent to ER) Appropriate function and battery longevity. Episode of tachycardia at 2:02 PM lasting 5 minutes, now resolved. No recent labs [place] records reviewed from November 2023: Echo reviewed from Dec 19, 2023: IMPRESSION: 78 year old male ICD-10-CM 1. Generalized weakness R53.1 2. Hypotension, unspecified hypotension type I95.9 3. Syncope, unspecified syncope type R55 4. SVT (supraventricular tachycardia) ([facility]) I47.10 5. Pacemaker-mediated tachycardia I49.9 RECOMMENDATIONS: Patient presenting to clinic for Hosp discharge feeling poorly. Weak Hypotensive Apparently had syncope episode in parking lot. Device interrogation quickly reviewed possible tachyarrhythmia around time of symptoms. He has not felt well since Hosp discharge with sepsis. We are uncertain if he is taking his meds. reports he is, son reports he is not. Patient appears pale and weak. Options discussed. Given the fact we are not certain as to his meds, and his current condition withhypotension and recurrent syncope, recommend ER for evaluation. He needs labs, likely IV fluids, and environmental monitoring technician to assess arrhythmia. Need to R/O sepsis. Recent sepsis admission for pneumonia. His metoprolol ose was increased on Hosp discharge for SVT and pacemaker mediated tachycardia, but we are not certain he is taking it. EMS summoned due to hypotension and symptomatic events coming into the clinic. Further recommendations pending hospital evaluation. Message sent to plater production cardiology providers as well. Patient is being evaluated in the cardiology office for ongoing care/risk management for pacemaker;SVT. I spent a total of 60 minutes on the date of service in preparation, delivery, and documentation ofthe care provided to Gwyn Shaver excluding any time spent in the performance of separately billed services. The patient agrees to the above plan and will call with additional questions or concerns. ER with all emergencies advised. Follow up after ER/ Hospital discharge Varsha Banerjee PA-C Department of Cardiology This chart was completed in part utilizing NuORDER Speech Voice Recognition Software. Grammatical errors, random word insertions, prounoun errors, and incomplete sentences are an occasional consequence of this system due to software limitations, ambient noise, and hardware issues. Any formal questions or concerns about the content, text, or information contained within the body of this dictation should be directly addressed to the provider for clarification. documented in this encounter Nursing Notes * Alejandro Carpio LPN - 01/21/2024 2:27 PM EDT Patient identified by full name and date of Chief Complaint Patient presents with Hospital Follow-Up [facility] 12/17-12/23/23. Echo 12/19/23. Syncope on occasion. Occurred today when coming in. Does not pass out long. Ongoing productive cough and dry the rest of the time. Palpitations when resting for 2-3 minutes intermittently a couple times a week. Dizziness when standing for a a few seconds. Denies chest pain and edema. Examination Room: Name: Gwyn Shaver Date of : (1945). Reason for Visit: HD follow up Interim Hospitalization(s): [facility] 12/17-12/23/23 Problems/Concerns: See chief complaint Chest Pain/SOB: See chief complaint [facility] Discussed: Yes [facility] is a way you can talk to your provider online through e-mail. Would you like to sign up? I can activate it for you? DECLINES Patient was instructed to not get up on the exam table until directed and assisted by their provider; patient is to remain seated in the chair/ wheelchair/ exam table for fall prevention and safety reasons. Patient is aware to have assistance to step down off exam table with personnel. Patient voiced full comprehension of instructions. documented in this encounter Plan of Treatment Upcoming Encounters Date Type Department Care Team (Late st Contact Info) Description 01/27/2024 11:20 AM EDT Office Visit [address] [place] [phone] Angeles Dunne MD [address] [place] [address] [place] [address] 04/06/2024 3:00 PM EDT Nurse Only Ancillary [address] [place] [address] [place], Nurse Annual Wellness [address] [place] [address] [place] [address] 06/22/2024 1:40 PM EST Office Visit Dermatology [address] [place] [address] Nia Hong PA-C [address] [place] [address] [place] [phone] 12/21/2024 9:00 AM EDT Office Visit Family [address] [place] [phone] Guera Jay MD [address] [place] [address] [place] [address] Health Maintenance Due Date Last Done Comments Alpha-1 Antitrypsin 02/06/1964 Depression Monitoring 01/23/2020 01/22/2019 Colonoscopy 08/30/2021 08/30/2016 COVID-19 Vaccine (3 2022- season) 2023 10/13/2020, 09/22/2020 *CXR OR CT [...] this encounter Medical Devices Implanted Type Area Explosive Ordnance Handler Device Identifier Shelf Expiration Date Model / Serial / Lot Femoral Nail Retrograde Implanted:Qty: 1 on 10/04/2022 by Gris Middleton, Donell Oliver MD at [place] [facility] Left: Knee ANGEL 02/18/2031 [id number] / / [id number] Screw Nlk A3 Ti 4.5x36mm - [id number] Implanted:Qty: 1 on 10/04/2022 by Donell Landry Jr., MD at [place] [facility] ANGEL : TRAUMA [id number] / / 5.0 Compression Plate Implanted:Qty: 1 on 10/04/2022 by Donell Landry Jr., MD at [place] [facility] ANGEL [id number] / / Screw T2 Alpha Adv Lck 5x85 - [id number] Implanted:Qty: 1 on 10/04/2022 by Donell Landry Jr., MD at [place] [facility] Left: Knee ANGEL : TRAUMA 07/24/2031 [id number] / / [id number] Screw T2 Alpha Adv Lck 5x65 - [id number] Implanted:Qty: 1 on 10/04/2022 by Donell Landry Jr., MD at [place] [facility] Left: Knee ANGEL : TRAUMA 07/24/2032 [id number] / / [id number] Screw T2 Alpha Adv Lck 5x85 - [id number] Implanted:Qty: 1 on 10/04/2022 by Donell Landry Jr., MD at [place] [facility] Left: Knee ANGEL : TRAUMA 02/22/2032 [id number] / / [id number] Screw T2 Alpha Lock 5x35mm - [id number] Implanted:Qty: 1 on 10/04/2022 by Donell Landry Jr., MD at [place] [facility] Left: Knee ANGEL : TRAUMA 07/24/2032 [id number] / / [id number] Screw Gina Lk A3 Ti 5x12mm - [id number] Implanted:Qty: 1 on 10/04/2022 by Donell Landry Jr., MD [place] [facility] [place] TRAUMA [id number] / / Screw Gina Lk A3 Ti 5x16mm - [id number] Implanted:Qty: 1 on 10/04/2022 by Donell Landry Jr., MD at [place] [facility] [place] TRAUMA [id number] / / Washer For 2.4mm/2.7mm/3.5m m - [id number] Implanted:Qty: 2 on 10/04/2022 by Donell Landry Jr., MD [place] [facility] [place] TRAUMA [id number] / / Screw Nlk V2 T10 Ft 3.5x28mm - [id number] Implanted:Qty: 2 on 10/04/2022 by Donell Landry Jr., MD at [place] [facility] [place] TRAUMA [id number] / / documented as of this encounter Visit Diagnoses Diagnosis Generalized weakness- Primary Other malaise and fatigue Hypotension, unspecified hypotension type Syncope, unspecified syncope type SVT (supraventricular tachycardia) (HCC) Other specified cardiac dysrhythmias Pacemaker-mediated tachycardia Other specified cardiac dysrhythmias documented in this encounter Advance Directives Documents on File Type Date Recorded Patient Verifying Specialist Expl anation Advance Directives and Living Will 10/03/2022 ADVANCE DIRECTIVE / LIVING WILL Power of Outreach Counselor 10/03/2022 POWER OF A TTORNEY * Full [...] Power of Attor mel? No Care Teams Market Editor Relationship Specialty Start Date End Date Guera Jay MD [address] [place] [address] [place] [phone] PCP - General Family Medicine 06/19/23 documented as of this encounter
--- OUTSIDE RECORDS SUMMARY | 2024-02-24 14:33 | External Medical Summary | Summary of Care ---
Author Name Unknown Organization [facility] Address [address] [place] [address] Phone [phone] Care Team Providers Care Ordnance Truck Installation Mechanic Name Role Phone Guera Jay MD Primary Care Prov ider Encounter Details Date Type Department Care Team (Late st Contact Info) Description 01/21/2024 Result Scan Unspecified Department <No scans attached> [...] albuteorl. 1 Each 04/25/2022 Active Saline Nasal [place] 0.65 % Nasal Solution ([place]) Administer 1 [place] into nostril in the morning and 1 [place] at noon and 1 [place] in the evening and 1 [place] before bedtime. 30 mL 11/15/2022 Active Senna [...] 75 MG Oral Tablet (pLAVix)Indication s:Atherosclerosis of [place] coronary artery of [place] heart with angina pectoris (HCC) Take 1 [...] placed. Pt to use OSH [facility] in [place]. Scheduling to fax orders. COPD, [...] length -albuterol rx sent to [facility] -Use Advair BID -has rescue kit [...] oxygen. Cervical spinal stenosis 01/27/2020 Atherosclerosis of [place] co ronary artery of [place] heart with stable angina pectoris 10/02/2019 Overview: [...] Pain managed through [facility] pain clinic. 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 12/22 Overview: CO-M2 [place] Last Assessment & Plan: Follows with GI [...] Medication Regimen o Class D - Inhaled Niokeqbpyxscgf-ABRQ-WGBQ Combination Inhaler (Trellegy) Exacerbation Mgt: o Rescue [...] 01/22/2019 07/29/2020 Coronary artery disease invo lving [place] coronary artery of [place] heart without angina pectoris 09/19/2017 10/31/2021 Overview: [...] Overview: Dr Parra [facility] Beta-hakan intolerance documented as of this encounter (statuses as of 01/22/2024) Immunizations Name Administration Dates Next Due COVID-19 mRNA, LNP-s, No Pre serve, 2-Dose Series (ProtAb) 10/13/2020,09/22/2020 Pneumococcal Conjugate Vacc, 13 Valent (Prevnar) [...] 11:20 AM EDT Office Visit Family Medicine [address] [place] [phone] Angeles Dunne MD [address] [place] [address] [place] [phone] 04/06/2024 3:00 PM EDT Nurse Only Ancillary [address] [place] [phone] [place], Nurse Annual Wellness [address] [place] [address] [place] [phone] 06/22/2024 1:40 PM EST Office Visit Dermatology [address] [place] [phone] Nia Hong PA-C [address] [place] [address] [place] [phone] 12/21/2024 9:00 AM EDT Office Visit Family Medicine [address] [place] [phone] Guera Jay MD [address] [place] [address] [place] [phone] Health Maintenance Due Date Last Done Comments [...] this encounter Medical Devices Implanted Type Area Window Tinter Device Identifier Shelf Expiration Date Model / Serial / Lot Femoral Nail Retrograde Implanted:Qty: 1 on 10/04/2022 by Donell Landry Jr., MD at [place] [facility] [place] Left: Knee ANGEL 02/18/2031 2339-1128S / / [id number] Screw Nlk A3 Ti 4.5x36mm - [id number] Implanted:Qty: 1 on 10/04/2022 by Donell Landry Jr., MD at [place] [facility] [place] ANGEL : TRAUMA [id number] / / 5.0 Compression Plate Implanted:Qty: 1 on 10/04/2022 by Donell Landry Jr., MD at [place] [facility] [place] ANGEL [id number] / / Screw T2 Alpha Adv Lck 5x85 - [id number] Implanted:Qty: 1 on 10/04/2022 by Donell Landry Jr., MD at [place] [facility] [place] Left: Knee ANGEL : TRAUMA 07/24/2031 2361-5085S / / [id number] Screw T2 Alpha Adv Lck 5x65 - [id number] Implanted:Qty: 1 on 10/04/2022 by Donell Landry Jr., MD at [place] [facility] [place] Left: Knee ANGEL : TRAUMA 07/24/2032 2361-5065S / / [id number] Screw T2 Alpha Adv Lck 5x85 - [id number] Implanted:Qty: 1 on 10/04/2022 by Donell Landry Jr., MD at [place] [facility] [place] Left: Knee ANGEL : TRAUMA 02/22/2032 2361-5085S / / [id number] Screw T2 Alpha Lock 5x35mm - [id number] Implanted:Qty: 1 on 10/04/2022 by Donell Landry Jr., MD at [place] [facility] [place] Left: Knee ANGEL : TRAUMA 07/24/2032 2360-5035S / / [id number] Screw Gina Lk A3 Ti 5x12mm - [id number] Implanted:Qty: 1 on 10/04/2022 by Donell Landry Jr., MD at [place] [facility] [place] ANGEL : TRAUMA [id number] / / Screw Gina Lk A3 Ti 5x16mm - [id number] Implanted:Qty: 1 on 10/04/2022 by Donell Landry Jr., MD at [place] [facility] [place] ANGEL : TRAUMA [id number] / / Washer For 2.4mm/2.7mm/3.5m m - [id number] Implanted:Qty: 2 on 10/04/2022 by Donell Landry Jr., MD at [place] [facility] [place] ANGEL : TRAUMA [id number] / / Screw Nlk V2 T10 Ft 3.5x28mm - [id number] Implanted:Qty: 2 on 10/04/2022 by Donell Landry Jr., MD at [place] [facility] [place] ANGEL : TRAUMA [id number] / / documented as of this encounter Procedures Procedure Name Priority Date/Time Associated Diagnosis Comments CARDIOLOGY SCANNED RESULT 01/21/2024 documented in this encounter Results * CARDIOLOGY SCANNED RESULT (01/21/2024) 01/21/2024 No Physician Data Unknown OTHER documented in this encounter Advance Directives Documents on File Type Date Recorded Patient Crab Fisher Expl anation Advance Directives and Living Will 10/03/2022 ADVANCE DIRECTIVE / LIVING WILL Power of Cane Flume Watcher 10/03/2022 POWER OF A TTORNEY * Full [...] Power of Attor mel? No Care Teams Ordnance Truck Installation Mechanic Relationship Specialty Start Date End Date Guera Jay MD [address] [place] [address] [place] [phone] PCP - General Family Medicine 06/19/23 documented as of this encounter
[2024-02-24] MEDS: NALOXONE HCL 0.4 MG/1 ML VIAL/CARP IV STA (14:55)
--- NOTE | 2024-02-24 14:55 | Emergency Department Note ---
Impression & Plan Fall from standing, Lightheadedness, Acute pain of right hip, Periprosthetic fracture around internal prosthetic right hip joint, Non-ST elevation NV (NSTEMI) ED Provider Note HISTORY OF PRESENT ILLNESS: Patient is a 79-year-old male presenting with reported right hip pain after a fall. History is obtained via nursing staff, as EMS is left bedside and the patient is very sleepy from his prehospital narcotic dosing. Patient reportedly was in his kitchen when he became dizzy and lightheaded and fell, striking his head on the refrigerator and landing on his right hip. Patient was unable to get up on his own and called 911. Patient is on Plavix. He was given 300 mcg of IV fentanyl with EMS in route. Patient is unable to provide any meaningful history at this time. ROS: as above PHYSICAL EXAM: Vitals: See nursing chart. Constitutional: GCS 13 -patient is confused secondary to medication dosing. HENT: Head: No external signs of trauma. Mouth/Throat: Midface stable. No malocclusion. Eyes: EOMI. Pupils are pinpoint and minimally reactive Nose: No nasal septal hematoma. No gross deformity. Neck: No midline C-spine tenderness. No step-offs. Cardiovascular: Paced rhythm. Pulses present in all 4 extremities. Pulmonary/Chest: BS equal bilaterally. No tenderness or ecchymosis. Abdomen: No tenderness or ecchymosis. Musculoskeletal: Pelvis: No instability. Patient is able to straight leg raise Back: No midline tenderness. No step-offs. Extremities: No gross deformities. No TTP. Skin: No laceration. No abrasion. Neuro: No focal neurological deficits. GCS as above. MDM: - Vitals signs showed bradypnea. - History obtained via nursing, as patient is very sleepy from his prehospital medications. History as above. -Patient was alerted as a trauma activation. ABCs intact. Primary survey grossly unremarkable. Chest x-ray negative for any evidence of pneumothorax, per my interpretation. Patient was given 0.4 mg of IV Narcan, as he is very sleepy and has pinpoint pupils. On Narcan administration, the patient is more alert and oriented. - Chronic conditions affecting care: HLD; HTN; BRENDA; hypothyroidism; pacemaker - Differential diagnoses include, but are not limited to: intracranial hemorrhage; pneumothorax; femur fracture; pelvic fracture; intra-abdominal traumatic injury - Order placed for continuous cardiac monitoring. At this time, monitor showed rate of 61 bpm with paced rhythm, per my interpretation. - External medical records reviewed. Discharge summary dated 01/27/2024 was reviewed. Patient was admitted for syncope with orthostatic hypotension. - EKG interpreted by myself showed paced rhythm. Rate 61 bpm. - Laboratory workup interpreted by myself showed normal WBC; normal PT/INR; stable electrolytes; elevated creatinine (cr 1.48); elevated troponin (24.4); normal lactate - CXR negative for pneumothorax, per my interpretation - Xray pelvis showed concern for periprosthetic hip fracture. X-ray of the right hip does confirm a nondisplaced periprosthetic hip fracture. - Discussed case with orthopedic surgeon on-call, Dr. Yip, at 16:50. He reports that it would be appropriate to admit the patient here for pain management and PT/OT. He does not believe that this fracture is amendable to surgery at this time. - CT head wo contrast today for acute intracranial pathology. - CT cervical spine wo contrast today for acute injury. - CT chest/abdomen/pelvis with IV contrast showed no acute traumatic process within the chest. Noted to have mediastinal and bilateral hilar lymphadenopathy which has improved from previous. Noted to have a nondisplaced right femoral periprosthetic fracture with a small adjacent intramuscular hematoma - Patient complaining of 8/10 pain on arrival back from CT scan. Using 4 mg IV morphine. - On reassessment, patient is still complaining of pain. Given 1 g IV Tylenol and 50 mcg of IV fentanyl. - Discussion was had with case technician about patient's case and need for admission - Hospitalist, Dr. Mcfarland, consulted for admission - Patient admitted to [facility]ist service for further evaluation and management. ASSESSMENT AND PLAN: Diagnosis: Fall from standing; lightheadedness; acute pain of right hip; periprosthetic fracture around internal prosthetic right joint hip; NSTEMI Plan: Admit Past Med/Surg History Problem List (Updated 02/24/24 @ 17:03 by Naty Bolanos MD) Non-ST elevation NV (NSTEMI) (Acute) Periprosthetic fracture around internal prosthetic right hip joint (Acute) Acute pain of right hip (Acute) Lightheadedness (Acute) Fall from standing (Acute) Dyslipidemia, goal LDL below 70 HTN, goal below 130/80 AVNRT (AV pola re-entry tachycardia) Orthostatic hypotension JOHN (acute kidney injury) (Acute) Syncope and collapse (Acute) BRENDA (obstructive sleep apnea) CAD (coronary artery disease) Sinus node dysfunction Elevated troponin Anemia (Acute) BPH w urinary obs/LUTS Moderate persistent asthma ASCVD (arteriosclerotic cardiovascular disease) Closed femur fracture (Acute) PSVT (paroxysmal supraventricular tachycardia) Cough (Acute) Wide-complex tachycardia (Acute) DDD (degenerative disc disease), lumbar HTN (hypertension) Hypothyroidism Zoster ophthalmicus Herpes zoster (Acute) Chronic anticoagulation (Chronic) Chronic right SI joint pain (Chronic) Asthma, allergic (Acute) Atherosclerotic heart disease of [place] coronary artery without angina pectoris (Acute) Chronic bronchitis (Acute) Chronic cholecystitis (Acute) Deep vein thrombosis of distal lower extremity (Acute) Diverticulosis of colon (Acute) Dyslipidemia (Acute) Idiopathic scoliosis (Acute) Inflamed seborrheic keratosis (Acute) Major depressive disorder (Acute) Mediastinal adenopathy (Acute) Pleurisy (Acute) Pulmonary nodule seen on imaging study (Acute) SOB (shortness of breath) (Acute) Sleep apnea (Acute) Vitamin D deficiency (Acute) Neuritis of left ulnar nerve (Chronic) Myofascial pain (Chronic) Chronic hip pain after total replacement of right hip joint (Chronic) 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 (Chronic) Symptomatic bradycardia (Chronic) Emphysema of lung (Chronic) 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) Lumbar post-laminectomy syndrome (Chronic) DVT (deep venous thrombosis) (Chronic 01/29/14) Hypothyroidism (Chronic) COPD (chronic obstructive pulmonary disease) (Chronic) BPH (benign prostatic hyperplasia) (Chronic) Carotid stenosis (Chronic) Diastolic dysfunction (Chronic) SSS (sick sinus syndrome) (Chronic) Pacemaker (Chronic) HTN (hypertension) (Chronic) HLD (hyperlipidemia) (Chronic) Depression (Chronic) RLS (restless legs syndrome) (Chronic) History of left heart catheterization (LHC) (Chronic) Fingertip amputation (Chronic) Exertional shortness of breath (Chronic) Lung infiltrate (Chronic) Osteoarthritis of left knee (Chronic) Medical History Chronic hypoxic respiratory failure Spinal cord stimulator status Surgical History Status post insertion of spinal cord stimulator Family History Mother Heart disease Social History Smoking Status: Unknown if ever smoked Tobacco Type: Cigarettes Do You Dip or Chew Tobacco: No; Hx Alcohol Use: No Hx Substance Use: No Preferred Language: Syriac Communication Ability: Effective Peripatologist Required: No Beliefs That Will Affect Care: None marital status: Current Living Situation: Spouse Current Living Situation Comment: HOME WITH current occupational status: disabled Feels Safe at Home: Yes Assistive Devices: Oxygen - Continuous, Walker and Wheelchair Allergies Allergies Allergy/AdvReac Type Severity Reaction Status Date / Time adhesive Allergy Intermediate SKIN Verified 01/21/24 17:02 BLISTERS latex Allergy Unknown PER Verified 01/21/24 17:02 [facility] "PT DENIES" Home Meds Home Medications Medication Instructions Recorded Confirmed acetaminophen 500 mg tablet 1,000 mg PO TID PRN Pain 03/06/23 01/21/24 (Tylenol Extra Strength) amitriptyline 25 mg tablet 50 mg PO HS 03/06/23 01/21/24 atorvastatin 80 mg tablet 80 mg PO DAILY 03/06/23 01/21/24 clopidogrel 75 mg tablet 75 mg PO QAM 03/06/23 01/21/24 duloxetine 30 mg capsule,delayed 30 mg PO QPM 03/06/23 01/21/24 release duloxetine 60 mg capsule,delayed 60 mg PO QPM 03/06/23 01/21/24 release finasteride 5 mg tablet 5 mg PO DAILY 03/06/23 01/21/24 gabapentin 300 mg capsule 300 mg PO TID 03/06/23 01/21/24 levothyroxine 75 mcg tablet 75 mcg PO DAILYBB 03/06/23 01/21/24 nitroglycerin 0.4 mg sublingual 0.4 mg sublingual DIRECTED PRN 03/06/23 01/21/24 tablet Chest Pain pantoprazole 40 mg tablet,delayed 40 mg PO DAILY 03/06/23 01/21/24 release sennosides 8.6 mg tablet (senna) 17.2 mg PO BID PRN Constipation 03/06/23 01/21/24 sodium chloride 0.65 % nasal spray 2 spray intranasal QID 03/06/23 01/21/24 aerosol (Saline Nasal) ipratropium 0.5 mg-albuterol 3 mg 3 ml inhalation Q6H PRN Shortness 01/21/24 01/21/24 (2.5 mg base)/3 mL nebulization Of Breath soln umeclidinium 62.5 mcg-vilanterol 1 inh inhalation DAILY 01/21/24 01/21/24 25 mcg/actuation powdr for inhalation (Anoro Ellipta) Previous Rx's Medication Instructions Recorded metoprolol succinate 25 mg 50 mg (2 x 25 mg) PO QAM #60 tabs 01/27/24 tablet,extended release 24 hr tamsulosin 0.4 mg capsule 0.4 mg PO QAM #30 caps 01/27/24 Results & Data (ED) Vital Signs Vital Signs - 24 hr 02/24/24 14:37 02/24/24 14:40 02/24/24 15:00 Temperature 36.6 C Temperature Source Oral Pulse Rate 60 63 60 Pulse Rate [Apical] Pulse Rhythm Regular Pulse Strength Normal Respiratory Rate 10 L 18 Respiratory Effort / Characteristics Non-Labored Respiratory Depth Shallow Blood Pressure 113/84 113/84 Blood Pressure [Right Arm] Blood Pressure Mean 93 Blood Pressure Mean [Right Arm] Pulse Oximetry 95 92 Oxygen Delivery Method Nasal Cannula Nasal Cannula Oxygen Flow Rate 2 2 Sepsis Recent Fever Within 48 Hours No Sepsis New/Unexplained Change in Mental Status N/A Sepsis Action Taken by Nursing No Action Required 02/24/24 15:10 02/24/24 16:26 02/24/24 17:00 Temperature Temperature Source Pulse Rate Pulse Rate [Apical] 65 61 61 Pulse Rhythm Pulse Strength Respiratory Rate 18 18 18 Respiratory Effort / Characteristics Respiratory Depth Blood Pressure Blood Pressure [Right Arm] 113/84 117/67 133/76 Blood Pressure Mean Blood Pressure Mean [Right Arm] 93 83 95 Pulse Oximetry 95 96 93 Oxygen Delivery Method Nasal Cannula Nasal Cannula Nasal Cannula Oxygen Flow Rate 2 2 3 Sepsis Recent Fever Within 48 Hours Sepsis New/Unexplained Change in Mental Status Sepsis Action Taken by Nursing 02/24/24 18:13 Temperature Temperature Source Pulse Rate 60 Pulse Rate [Apical] Pulse Rhythm Pulse Strength Respiratory Rate Respiratory Effort / Characteristics Respiratory Depth Blood Pressure Blood Pressure [Right Arm] Blood Pressure Mean Blood Pressure Mean [Right Arm] Pulse Oximetry Oxygen Delivery Method Oxygen Flow Rate Sepsis Recent Fever Within 48 Hours Sepsis New/Unexplained Change in Mental Status Sepsis Action Taken by Nursing Laboratory Data 02/24/24 15:15 02/24/24 15:15 Lab Results 02/24/24 02/24/24 02/24/24 Range/Units 15:15 15:31 15:38 WBC 6.05 (4.8-10.8) K/ul RBC 4.12 L (4.70-6.10) M/uL Hgb 13.2 L (14.0-18.0) g/dl POC Hgb 11.9 L (14.0-18.0) g/dl Hct 39.8 L (42.0-52.0) % POC Hct 35 L (42-52) % MCV 96.6 (80.0-100.0) fL MCH 32.0 (25.0-34.0) pg MCHC 33.2 (32.0-36.0) g/dL RDW Std Deviation 48.2 H (36.4-46.3) fL RDW Coeff of Jarrett 13.7 (11.5-14.5) % Plt Count 240 (130-400) K/uL MPV 10.6 (9.4-12.4) fL Immature Gran % (Auto) 0.3 % Neut % (Auto) 55.2 % Lymph % (Auto) 27.3 % [place] % (Auto) 13.4 % Eos % (Auto) 3.0 % Baso % (Auto) 0.8 % Neut # (Auto) 3.34 (1.40-6.50) K/uL Lymph # (Auto) 1.65 (1.20-3.40) K/uL [place] # (Auto) 0.81 H (0.11-0.59) K/uL Eos # (Auto) 0.18 (0.00-0.50) K/uL Baso # (Auto) 0.05 (0.00-0.20) K/uL Immature Gran # (Auto) 0.02 (0.01-0.20) K/uL PT 10.5 (9.0-12.0) Seconds INR 1.0 (0.9-1.1) POC Sodium 139 (135-144) mmol/L Sodium 138 (136-145) mmol/L POC Potassium 4.6 (3.3-5.0) mmol/L Potassium 4.6 (3.5-5.1) mmol/L POC Chloride 101 (101-112) mmol/L Chloride 103 (98-107) mmol/L Carbon Dioxide 32 (21-32) mmol/L POC Total CO2 27 (24-31) mmol/L Anion Gap 3 (3-11) POC Anion Gap 16.0 (16-25) mmol/L POC BUN 12 (7-18) mg/dl BUN 14 (6-23) mg/dl Creatinine 1.48 H (0.6-1.4) mg/dl POC Creatinine 1.5 H (0.6-1.3) mg/dl Est Cr Clr Drug Dosing 46.8 ml/min Est GFR ( Amer) 51.8 ml/min Est GFR (Non-Af Amer) 44.7 ml/min BUN/Creatinine Ratio 9.5 L (10-20) Glucose 126 H (70-99(Fasting)) mg/dl POC Glucose (other) 149 H (70-99) mg/dl Lactate 1.9 (0.4-2.0) mmol/L Calcium 9.3 (8.6-10.3) mg/dl POC Ioniz Calcium Violet 1.25 (1.12-1.32) mmol/l Total Bilirubin 0.4 (0.2-1.0) mg/dl AST 15 (13-39) U/L ALT 12 (7-52) U/L Alkaline Phosphatase 95 (34-104) U/L Total Creatine Kinase 88 (30-223) U/L Troponin I High Sens 24.4 H (0-20) pg/ml Total Protein 6.7 (6.0-8.3) gm/dl Albumin 4.1 (3.4-5.0) gm/dl Globulin 2.6 (2.5-4.0) gm/dl Albumin/Globulin Ratio 1.6 (0.9-2) 02/24/24 Range/Units 17:36 WBC (4.8-10.8) K/ul RBC (4.70-6.10) M/uL Hgb (14.0-18.0) g/dl POC Hgb (14.0-18.0) g/dl Hct (42.0-52.0) % POC Hct (42-52) % MCV (80.0-100.0) fL MCH (25.0-34.0) pg MCHC (32.0-36.0) g/dL RDW Std Deviation (36.4-46.3) fL RDW Coeff of Jarrett (11.5-14.5) % Plt Count (130-400) K/uL MPV (9.4-12.4) fL Immature Gran % (Auto) % Neut % (Auto) % Lymph % (Auto) % [place] % (Auto) % Eos % (Auto) % Baso % (Auto) % Neut # (Auto) (1.40-6.50) K/uL Lymph # (Auto) (1.20-3.40) K/uL [place] # (Auto) (0.11-0.59) K/uL Eos # (Auto) (0.00-0.50) K/uL Baso # (Auto) (0.00-0.20) K/uL Immature Gran # (Auto) (0.01-0.20) K/uL PT (9.0-12.0) Seconds INR (0.9-1.1) POC Sodium (135-144) mmol/L Sodium (136-145) mmol/L POC Potassium (3.3-5.0) mmol/L Potassium (3.5-5.1) mmol/L POC Chloride (101-112) mmol/L Chloride (98-107) mmol/L Carbon Dioxide (21-32) mmol/L POC Total CO2 (24-31) mmol/L Anion Gap (3-11) POC Anion Gap (16-25) mmol/L POC BUN (7-18) mg/dl BUN (6-23) mg/dl Creatinine (0.6-1.4) mg/dl POC Creatinine (0.6-1.3) mg/dl Est Cr Clr Drug Dosing ml/min Est GFR ( Amer) ml/min Est GFR (Non-Af Amer) ml/min BUN/Creatinine Ratio (10-20) Glucose (70-99(Fasting)) mg/dl POC Glucose (other) (70-99) mg/dl Lactate (0.4-2.0) mmol/L Calcium (8.6-10.3) mg/dl POC Ioniz Calcium Violet (1.12-1.32) mmol/l Total Bilirubin (0.2-1.0) mg/dl AST (13-39) U/L ALT (7-52) U/L Alkaline Phosphatase (34-104) U/L Total Creatine Kinase (30-223) U/L Troponin I High Sens 23.6 H (0-20) pg/ml Total Protein (6.0-8.3) gm/dl Albumin (3.4-5.0) gm/dl Globulin (2.5-4.0) gm/dl Albumin/Globulin Ratio (0.9-2) Administered Medications Discontinued Medications Fentanyl Citrate (Fentanyl Citrate Pf 100 Mcg/2 Ml Vial) 50 mcg IV NOW STA Stop: 02/24/24 17:39 Last Admin: 02/24/24 18:21 Dose: 50 mcg Documented By: LUCIEN Sodium Chloride (Nss) 500 mls @ 999 mls/hr IV .Q31M ONE Stop: 02/24/24 16:27 Last Infusion: 02/24/24 17:37 Dose: Infused Documented By: Admin: 02/24/24 16:38 Dose: 999 mls/hr Documented By: LUCIEN Acetaminophen (Ofirmev) 1,000 mg in 100 mls @ 400 mls/hr IV NOW STA Stop: 02/24/24 17:52 Last Infusion: 02/24/24 18:17 Dose: Infused Documented By: Admin: 02/24/24 17:43 Dose: 400 mls/hr Documented By: LUCIEN Ioversol (Optiray 320 100ml) 94 ml IV ONCE ONE Stop: 02/24/24 16:08 Last Admin: 02/24/24 16:12 Dose: 94 ml Documented By: CONRADO Morphine Sulfate (Morphine Sulfate 4 Mg/Ml 1 Ml Carp\\Vial) 4 mg IV NOW STA Stop: 02/24/24 16:31 Last Admin: 02/24/24 16:38 Dose: 4 mg Documented By: LUCIEN Naloxone HCl (Naloxone Hcl 0.4 Mg/1 Ml Vial/Carp) 0.4 mg IV NOW STA Stop: 02/24/24 14:49 Last Admin: 02/24/24 14:55 Dose: 0.4 mg Documented By: MO Imaging Data Radiologist's Impression: Chest X-Ray 02/24/24 14:44 XR chest 1V portable HISTORY: trauma COMPARISON: Chest 01/21/2024. FINDINGS: No pneumothorax. No pleural effusions. The heart remains mildly enlarged. Thoracic spinal stimulator leads in left-sided pacemaker again noted. No evidence for pulmonary edema. No new focal lung consolidations. Left basilar linear densities persist and favor subsegmental atelectasis. No acute fractures identified. IMPRESSION: No acute process within the chest. ACT 112: Negative or not required by law. Electronically signed by: Andrei Guillen M.D. 02/24/2024 3:[address] 02/24/24 14:[address] DOSE: HISTORY: Trauma TECHNIQUE: Multiaxial CT images of the head were performed without the use of intravenous contrast. Automated exposure control was utilized for this study. A dose lowering technique was utilized adhering to the principles of ALARA. Comparison: Head CT 01/21/2024. Findings: The paranasal sinuses and mastoid air cells are clear. The calvarium and skull base are intact. There is no mass, hematoma, midline shift, acute infarct. White matter hypodensity is nonspecific but suggestive of microvascular ischemic change. The ventricles and sulci demonstrate mild age-related involutional changes. Impression: No significant change compared to the prior study. No acute intracranial abnormality. ACT 112: Negative or not required by law. Electronically signed by: Andrei Guillen M.D. 02/24/2024 4:39 PM Pelvis X-Ray 02/24/24 14:44 XR pelvis 1-2V routine CLINICAL HISTORY: trauma COMPARISON STUDY: Pelvis and left hip 10/25/2022. 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 Lucencies at the proximal right femur and base of the lesser trochanter may represent age- indeterminate nondisplaced fractures. No fracture or dislocation within the pelvis or left hip. IMPRESSION: Linear lucencies within the proximal femur and base of the right lesser trochanter may represent age-indeterminate nondisplaced fractures. Is patient is complaining of right hip pain then consider follow-up dedicated right hip radiograph for further evaluation. ACT 112: Negative or not required by law. Electronically signed by: Andrei Guillen M.D. 02/24/2024 3:10 PM Abdomen/Pelvis CT 02/24/24 14:[address] WITH CONTRAST, ABDOMEN AND PELVIS CT WITH INTRAVENOUS CONTRAST CT DOSE: 4575.89 mGy.cm HISTORY: Trauma TECHNIQUE: Multiaxial CT images of the chest, abdomen, and pelvis were performed following the intravenous administration of contrast. A dose lowering technique was utilized adhering to the principles of ALARA. COMPARISON: Chest CT 12/18/2023. Abdomen and pelvis CT 02/29/2000 and FINDINGS: Chest CT: There is a left-sided pacemaker and thoracic spinal stimulator leads noted. No acute fractures within the chest. Normal thyroid gland. Normal esophagus. No pleural or pericardial effusions. The heart is mildly enlarged. Normal caliber thoracic aorta with no evidence for a dissection. The main pulmonary arteries are patent. Mild mediastinal and bilateral hilar lymphadenopathy has improved. There are few calcified mediastinal and right hilar lymph nodes noted. No mediastinal hematoma identified. No pneumothorax. The central airways are patent. Suture material noted within the left upper lobe. Adjacent linear scarlike densities remain stable. Interstitial thickening and groundglass densities within the lungs posteriorly favor dependent change/atelectasis. Otherwise, no focal lung consolidations to suggest a pneumonia. No evidence for pulmonary edema. Abdomen/pelvis CT: No pneumoperitoneum. No pneumatosis. There are bilateral total hip arthroplasties. The right proximal femoral periprosthetic fracture is partially visualized on this study. There is a small intramuscular hematoma within the distal iliopsoas muscle. This is anterior to the right hip fracture. No retroperitoneal hematoma. Thoracic spinal stimulator leads are again noted. Multiple duodenal diverticula are present. Prior cholecystectomy. The liver, spleen, adrenal glands, and pancreas unremarkable. There is a punctate stone within the right kidney. There is a punctate stone within the lower pole of the left kidney. No ureteral stones. No hydronephrosis. The bladder is not well visualized due to the metallic artifact but appears unremarkable. No retroperitoneal lymphadenopathy. Calcified plaque within the normal caliber abdominal aorta. Trace pelvic free fluid is noted. Colonic diverticulosis. No evidence for acute diverticulitis. No bowel wall thickening or obstruction. IMPRESSION: 1. No acute traumatic process within the chest. 2. Mild mediastinal and bilateral hilar lymphadenopathy has improved. 3. There is a nondisplaced right femoral periprosthetic fracture with a small adjacent intramuscular hematoma at the distal iliopsoas. 4. Bilateral nephrolithiasis. No hydronephrosis. 5. Trace pelvic free fluid. 6. Additional findings as described above. ACT 112: Negative or not required by law. Electronically signed by: Andrei Guillen M.D. 02/24/2024 5:[address] 02/24/24 14:[address] DOSE: HISTORY: Trauma TECHNIQUE: Multiaxial CT images of the cervical spine were performed and reformatted in the sagittal and coronal plane without the use of contrast. A dose lowering technique was utilized adhering to the principles of ALARA. COMPARISON: Cervical spine CT 10/25/2022. FINDINGS: No fractures. No subluxation. Prevertebral soft tissues and the C1-C2 interval are intact. No pneumothorax. Left-sided pacemaker wires are noted. IMPRESSION: No fractures within the cervical spine. ACT 112: Negative or not required by law. Electronically signed by: Andrei Guillen M.D. 02/24/2024 4:[address] 02/24/24 14:[address] WITH CONTRAST, ABDOMEN AND PELVIS CT WITH INTRAVENOUS CONTRAST CT DOSE: 4575.89 mGy.cm HISTORY: Trauma TECHNIQUE: Multiaxial CT images of the chest, abdomen, and pelvis were performed following the intravenous administration of contrast. A dose lowering technique was utilized adhering to the principles of ALARA. COMPARISON: Chest CT 12/18/2023. Abdomen and pelvis CT 02/29/2000 and FINDINGS: Chest CT: There is a left-sided pacemaker and thoracic spinal stimulator leads noted. No acute fractures within the chest. Normal thyroid gland. Normal esophagus. No pleural or pericardial effusions. The heart is mildly enlarged. Normal caliber thoracic aorta with no evidence for a dissection. The main pulmonary arteries are patent. Mild mediastinal and bilateral hilar lymphadenopathy has improved. There are few calcified mediastinal and right hilar lymph nodes noted. No mediastinal hematoma identified. No pneumothorax. The central airways are patent. Suture material noted within the left upper lobe. Adjacent linear scarlike densities remain stable. Interstitial thickening and groundglass densities within the lungs posteriorly favor dependent change/atelectasis. Otherwise, no focal lung consolidations to suggest a pneumonia. No evidence for pulmonary edema. Abdomen/pelvis CT: No pneumoperitoneum. No pneumatosis. There are bilateral total hip arthroplasties. The right proximal femoral periprosthetic fracture is partially visualized on this study. There is a small intramuscular hematoma within the distal iliopsoas muscle. This is anterior to the right hip fracture. No retroperitoneal hematoma. Thoracic spinal stimulator leads are again noted. Multiple duodenal diverticula are present. Prior cholecystectomy. The liver, spleen, adrenal glands, and pancreas unremarkable. There is a punctate stone within the right kidney. There is a punctate stone within the lower pole of the left kidney. No ureteral stones. No hydronephrosis. The bladder is not well visualized due to the metallic artifact but appears unremarkable. No retroperitoneal lymphadenopathy. Calcified plaque within the normal caliber abdominal aorta. Trace pelvic free fluid is noted. Colonic diverticulosis. No evidence for acute diverticulitis. No bowel wall thickening or obstruction. IMPRESSION: 1. No acute traumatic process within the chest. 2. Mild mediastinal and bilateral hilar lymphadenopathy has improved. 3. There is a nondisplaced right femoral periprosthetic fracture with a small adjacent intramuscular hematoma at the distal iliopsoas. 4. Bilateral nephrolithiasis. No hydronephrosis. 5. Trace pelvic free fluid. 6. Additional findings as described above. ACT 112: Negative or not required by law. Electronically signed by: Andrei Guillen M.D. 02/24/2024 5:33 PM Hip X-Ray 02/24/24 15:14 XR hip RT min 2V CLINICAL HISTORY: R hip pain s/p fall COMPARISON STUDY: Pelvis 02/24/2024. FINDINGS: Confirmation of a nondisplaced periprosthetic fracture within the residual proximal right femur. The right hip prosthesis appears intact. No dislocation. IMPRESSION: Confirmation of a nondisplaced periprosthetic fracture within the proximal right femur. ACT 112: Negative or not required by law. Electronically signed by: Andrei Guillen M.D. 02/24/2024 3:54 PM Discharge Plan Visit Data Chief Complaint: Trauma Stated Complaint: hip pain ED Provider: Naty Bolanos Discharge Problem: Fall from standing, Lightheadedness, Acute pain of right hip, Periprosthetic fracture around internal prosthetic right hip joint, Non-ST elevation NV (NSTEMI) Forms Stand Alone Forms: [facility] Prescriptions Prescriptions: No Action amitriptyline 25 mg tablet 50 mg PO HS gabapentin 300 mg capsule 300 mg PO TID Rx Instructions: Am, noon, hs duloxetine 30 mg capsule,delayed release(DR/EC) 30 mg PO QPM Rx Instructions: TOTAL DOSE 90 MG--TAKES WITH 60 MG CAP. duloxetine 60 mg capsule,delayed release(DR/EC) 60 mg PO QPM Rx Instructions: TOTAL DOSE 90 MG--TAKES WITH 30 MG CAP. atorvastatin 80 mg tablet 80 mg PO DAILY sennosides [senna] 8.6 mg Tablet 17.2 mg PO BID PRN (Reason: Constipation) clopidogrel 75 mg tablet 75 mg PO QAM acetaminophen [Tylenol Extra Strength] 500 mg Tablet 1,000 mg PO TID PRN (Reason: Pain) levothyroxine 75 mcg tablet 75 mcg PO DAILYBB pantoprazole 40 mg tablet,delayed release (DR/EC) 40 mg PO DAILY nitroglycerin 0.4 mg tablet, sublingual 0.4 mg sublingual DIRECTED PRN (Reason: Chest Pain) finasteride 5 mg tablet 5 mg PO DAILY Saline Nasal 0.65 % Aerosol,[place] 2 spray INTRANASAL QID ipratropium-albuterol 0.5 mg-3 mg(2.5 mg base)/3 mL Solution For Nebulization 3 ml INHALATION Q6H PRN (Reason: Shortness Of Breath) Anoro Ellipta 62.5-25 mcg/actuation Blister With Device 1 inh INHALATION DAILY tamsulosin 0.4 mg capsule 0.4 mg PO QAM Qty: 30 0RF metoprolol succinate 25 mg tablet extended release 24 hr 50 mg PO QAM Qty: 60 0RF Referrals Referrals: Guera Escudero MD [Primary Care Provider] -
--- NOTE | 2024-02-24 15:12 | XRay Report ---
XR chest 1V portable HISTORY: trauma COMPARISON: Chest 01/21/2024. FINDINGS: No pneumothorax. No pleural effusions. The heart remains mildly enlarged. Thoracic spinal s timulator leads in left-sided pacemaker again noted. No evidence for pulmonary edema. No new focal dannie ng consolidations. Left basilar linear densities persist and favor subsegmental atelectasis. No acute fractures identified. IMPRESSION: No acute process within the chest. ACT 112: Negative or not required by law. Electronically signed by: Andrei Guillen M.D. 02/24/2024 3:11 PM
--- NOTE | 2024-02-24 15:12 | XRay Report ---
XR pelvis 1-2V routine CLINICAL HISTORY: trauma COMPARISON STUDY: Pelvis and left hip 10/25/2022. 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 Lucencies at the proximal right femur a nd base of the lesser trochanter may represent age-indeterminate nondisplaced fractures. No fracture or dislocation within the pelvis or left hip. IMPRESSION: Linear lucencies within the proximal femur and base of the right lesser trochanter may r epresent age-indeterminate nondisplaced fractures. Is patient is complaining of right hip pain then c onsider follow-up dedicated right hip radiograph for further evaluation. ACT 112: Negative or not required by law. Electronically signed by: Andrei Guillen M.D. 02/24/2024 3:10 PM
[2024-02-24 15:34] LABS: Basophils # (auto) 0.05 K/uL (0.00-0.20); Basophils % (auto) 0.8 %; Eosinophils # (auto) 0.18 K/uL (0.00-0.50); Hematocrit (blood only) 39.8 % (42.0-52.0); Hemoglobin 13.2 g/dl (14.0-18.0); Immature Granulocytes # (auto) 0.02 K/uL (0.01-0.20); Immature Granulocytes % (auto) 0.3 %; Lymphocytes # (auto) 1.65 K/uL (1.20-3.40); Lymphocytes % (auto) 27.3 %; Mean Corpuscular Hgb Conc 33.2 g/dL (32.0-36.0); Mean Corpuscular Volume 96.6 fL (80.0-100.0); Mean Platelet Volume 10.6 fL (9.4-12.4); Monocytes # (auto) 0.81 K/uL (0.11-0.59); Monocytes % (auto) 13.4 %; Neutrophils # (auto) 3.34 K/uL (1.40-6.50); Neutrophils % (auto) 55.2 %; Platelet Count 240 K/uL (130-400); RDW Coefficient of Variation 13.7 % (11.5-14.5); RDW Standard Deviation 48.2 fL (36.4-46.3); Red Blood Count 4.12 M/uL (4.70-6.10); White Blood Count 6.05 K/ul (4.8-10.8)
[2024-02-24 15:47] LABS: Albumin Globulin Ratio 1.6 (0.9-2); Albumin Level 4.1 gm/dl (3.4-5.0); BUN Creatinine Ratio 9.5 (10-20); Bilirubin,Total 0.4 mg/dl (0.2-1.0); Calcium 9.3 mg/dl (8.6-10.3); Creatinine Clr Calc Pharmacy 46.8 ml/min; Est GFR (African American) 51.8 ml/min; Est GFR (Non-African American) 44.7 ml/min; Globulin 2.6 gm/dl (2.5-4.0); Potassium 4.6 mmol/L (3.5-5.1); Total Protein 6.7 gm/dl (6.0-8.3)
[2024-02-24 15:52] LABS: iSTAT Creatinine 1.5 mg/dl (0.6-1.3); iSTAT Hemoglobin 11.9 g/dl (14.0-18.0); iSTAT Ionized Calcium 1.25 mmol/l (1.12-1.32); iSTAT Potassium 4.6 mmol/L (3.3-5.0)
[2024-02-24 15:55] LABS: Troponin I High Sensitivity 24.4 pg/ml (0-20)
--- NOTE | 2024-02-24 15:56 | XRay Report ---
XR hip RT min 2V CLINICAL HISTORY: R hip pain s/p fall COMPARISON STUDY: Pelvis 02/24/2024. FINDINGS: Confirmation of a nondisplaced periprosthetic fracture within the residual proximal right f emur. The right hip prosthesis appears intact. No dislocation. IMPRESSION: Confirmation of a nondisplaced periprosthetic fracture within the proximal right femur. ACT 112: Negative or not required by law. Electronically signed by: Andrei Guillen M.D. 02/24/2024 3:54 PM
[2024-02-24 15:57] LABS: Prothrombin Time 10.5 Seconds (9.0-12.0)
[2024-02-24] MEDS: OPTIRAY 320 100ml IV ONE (16:12)
[2024-02-24] MEDS: MoRPHine SULFATE 4 MG/ML 1 ML CARP\\VIAL IV STA (16:38)
[2024-02-24] MEDS: SODIUM CHLORIDE 0.9% 500 ML IV ONE (16:38)
--- NOTE | 2024-02-24 16:41 | CT Scan Report ---
HEAD CT NONCONTRAST CT DOSE: HISTORY: Trauma TECHNIQUE: Multiaxial CT images of the head were performed without the use of intravenous contrast. A utomated exposure control was utilized for this study. A dose lowering technique was utilized adheri ng to the principles of ALARA. Comparison: Head CT 01/21/2024. Findings: The paranasal sinuses and mastoid air cells are clear. The calvarium and skull base are int act. There is no mass, hematoma, midline shift, acute infarct. White matter hypodensity is nonspecifi c but suggestive of microvascular ischemic change. The ventricles and sulci demonstrate mild age-rela pat involutional changes. Impression: No significant change compared to the prior study. No acute intracranial abnormality. ACT 112: Negative or not required by law. Electronically signed by: Andrei Guillen M.D. 02/24/2024 4:39 PM
--- NOTE | 2024-02-24 16:47 | CT Scan Report ---
CERVICAL SPINE CT CT DOSE: HISTORY: Trauma TECHNIQUE: Multiaxial CT images of the cervical spine were performed and reformatted in the sagittal and coronal plane without the use of contrast. A dose lowering technique was utilized adhering to th e principles of ALARA. COMPARISON: Cervical spine CT 10/25/2022. FINDINGS: No fractures. No subluxation. Prevertebral soft tissues and the C1-C2 interval are intact. No pneumothorax. Left-sided pacemaker wires are noted. IMPRESSION: No fractures within the cervical spine. ACT 112: Negative or not required by law. Electronically signed by: Andrei Guillen M.D. 02/24/2024 4:45 PM
--- NOTE | 2024-02-24 17:36 | CT Scan Report ---
CHEST CT WITH CONTRAST, ABDOMEN AND PELVIS CT WITH INTRAVENOUS CONTRAST CT DOSE: 4575.89 mGy.cm HISTORY: Trauma TECHNIQUE: Multiaxial CT images of the chest, abdomen, and pelvis were performed following the intrav enous administration of contrast. A dose lowering technique was utilized adhering to the principles of ALARA. COMPARISON: Chest CT 12/18/2023. Abdomen and pelvis CT 02/29/2000 and FINDINGS: Chest CT: There is a left-sided pacemaker and thoracic spinal stimulator leads noted. No acute fractu res within the chest. Normal thyroid gland. Normal esophagus. No pleural or pericardial effusions. Th e heart is mildly enlarged. Normal caliber thoracic aorta with no evidence for a dissection. The main pulmonary arteries are patent. Mild mediastinal and bilateral hilar lymphadenopathy has improved. Th ere are few calcified mediastinal and right hilar lymph nodes noted. No mediastinal hematoma identifi ed. No pneumothorax. The central airways are patent. Suture material noted within the left upper lobe . Adjacent linear scarlike densities remain stable. Interstitial thickening and groundglass densities within the lungs posteriorly favor dependent change/atelectasis. Otherwise, no focal lung consolidat ions to suggest a pneumonia. No evidence for pulmonary edema. Abdomen/pelvis CT: No pneumoperitoneum. No pneumatosis. There are bilateral total hip arthroplasties. The right proximal femoral periprosthetic fracture is partially visualized on this study. There is a small intramuscular hematoma within the distal iliopsoas muscle. This is anterior to the right hip f racture. No retroperitoneal hematoma. Thoracic spinal stimulator leads are again noted. Multiple duod enal diverticula are present. Prior cholecystectomy. The liver, spleen, adrenal glands, and pancreas unremarkable. There is a punctate stone within the right kidney. There is a punctate stone within the lower pole of the left kidney. No ureteral stones. No hydronephrosis. The bladder is not well visual ized due to the metallic artifact but appears unremarkable. No retroperitoneal lymphadenopathy. Calci fied plaque within the normal caliber abdominal aorta. Trace pelvic free fluid is noted. Colonic dive rticulosis. No evidence for acute diverticulitis. No bowel wall thickening or obstruction. IMPRESSION: 1. No acute traumatic process within the chest. 2. Mild mediastinal and bilateral hilar lymphadenopathy has improved. 3. There is a nondisplaced right femoral periprosthetic fracture with a small adjacent intramuscular hematoma at the distal iliopsoas. 4. Bilateral nephrolithiasis. No hydronephrosis. 5. Trace pelvic free fluid. 6. Additional findings as described above. ACT 112: Negative or not required by law. Electronically signed by: Andrei Guillen M.D. 02/24/2024 5:33 PM
[2024-02-24] MEDS: ACETAMINOPHEN 1,000 MG/100 ML VIAL IV STA (17:43)
--- NOTE | 2024-02-24 18:06 | History & Physical Report ---
Date of Service February 24, 2024 Assessment & Plan (1) Periprosthetic fracture around internal prosthetic right hip joint: (2) Acute pain of right hip: (3) Fall from standing: Plan Mr. Shaver is a 78 year old M with a PMH of COPD, asthma, bronchiectasis, chronic respiratory failure on 3L NC O2, HTN, HLD, sinus node dysfunction s/p pacemaker, CAD s/p balloon angioplasty 2017, SVT, GERD, BPH, RLS, depression, chronic back pain and others listed below presented to ED after fall at home. Patient a trauma alert given fall while on DAPT. Patient is a trauma alert and will be admitted to PCU for close monitoring as patient on plavix #Traumatic Fall c/b right periprosthetic nondisplaced fracture #intramuscular hematoma in distal iliopsoas #Chronic ambulatory dysfunction -admit PCU/tele -Tramadol q4 moderate pain, morphine severe pain prn -PT/OT -Bed rest for now -VS per protocol -SCD and compression stockings -CBC in am given plavix -Ortho consulted: No surgical intervention at this time, CTM -IS #Syncopal episodes #AVNRT #Orthostatic hypotension #HX of symptomatic bradycardia s/p PPM -Multiple admissions for the same recently -DAKOTAH hose placed for DVT but also to help with orthostasis -Home antihypertensives d/c -Continue Metoprolol Succinate -Pacemaker interrogation ordered -spoke to [employer] rep, 7 recorded events from 02/22, no events from 02/23 -Cardiology consult: is burden of AVNRT driving factor, further metoprolol dosing warranted at this time? -Encourage PO intake #Coronary heart disease s/p unsuccessful stenting 2016 #Chronic HFpEF 2/2 ischemic cardiomyopathy #HLD -Volume status relatively dry, no signs of volume overload -Continue plavix -Continue metorpolol succinate 50daily -Continue statin #Chronic back pain s/p spinal stimulator Continue duloxetine and gabapentin #Chronic hypoxic resp failure #COPD Continue home nebs and inhaler Continue supplemental O2 #Elevated troponin, mild iso CAD, chronic hypoxia no sign of active acs, monitor on tele #JOHN (acute kidney injury) Cr 1.5 (Baseline Cr: 1.1) BMP in am #Hyperglycemia #Prediabetes Glucose levels elevated Hgba1c 6.6 01/2024 CTM #Chronic normocytic Anemia Hgb 13.2 on admission (likely element of hemoconcentration) baseline 10-11 anemia labs in am #BPH (benign prostatic hyperplasia) Continue tamsulosin, finasteride #Hypothyroidism Continue levothyroxine TSH in am DVT Ppx: SCDs Code status: DNR/DNI PCP: Elio Retana Admission and Anticipated Discharge Date Admission Date: Time spent evaluating patient, direct bedside care, chart review, placing orders, interpretation of diagnostic studies, discussion with consultants, patient, and family members, as well as other required patient management activities is 75 minutes. History of Present Illness Chief Complaint: Trauma, syncope Primary Care Provider: Guera Escudero MD Mr. Shaver is a 78 year old M with a PMH of COPD, asthma, bronchiectasis, chronic respiratory failure on 3L NC O2, HTN, HLD, sinus node dysfunction s/p pacemaker, CAD s/p balloon angioplasty 2016, SVT, GERD, BPH, RLS, depression, chronic back pain and others listed below presented to ED after fall at home. Patient a trauma alert given fall while on DAPT. Right Hip imaging revealed periprosthetic nondisplaced fracture. Patient states since discharge, he has continued to feel light headed and dizzy. He tries to slowly stand, but today he just went "too fast" to bean picker his shoes, and before he could adjust he "was down hard." Patient denies chest pain, SOB, focal weakness or vision changes. He states the symptoms he experienced are the same "ongoing" concerns. Patient has not yet established with EP for AVNRT which has been thought to possibly contribute to symptoms. Recently hospitalized from 12/17-12/22 in setting of sepsis 2/2 multifocal PNA, COPD exacerbation as well as pacemaker mediated tachycardia. During previous admission, was evaluated by cardiology and pacemaker was adjusted on 12/22 for pacemaker mediated tachycardia. Metoprolol succinate increased to 50mg BID. Echocardiogram performed 12/19/2023 revealed moderate concentric left ventricular perjury, no regional wall motion motives, LVEF normal at 60-65%, mild aortic valve sclerosis without stenosis, grade 1 diastolic dysfunction, pulmonary artery systolic pressure estimated be 35 mmHg which is the upper limit of normal. Patient with admission on 01/21-01/26 for syncopal episode. Patient's blood pressure medications discontinued, as well as reduced tamsulosin. There was concern for need for AVNRT ablation given symptoms. Patient received Narcan due to solmnolence from pain management prehospital. Patient AO3, however, still a bit lethargic and seemingly hazy about events leading up to presentation. In the ED, vitals were notable for BP of 110-140s, HR of 60s, and O2 sat of *95 on home O2 3L EKG reviewed and stable, no signs of ischemia, pacer spike noted ED interventions: Narcan, Fentanyl, Morphine, 500cc Bolus Consultants: Ortho--No surgical intervention at this time Patient to be admitted to PCU (Trauma alert) for further evaluation and management of traumatic periprosthetic fracture after fall. Allergies Allergy/AdvReac Type Severity Reaction Status Date / Time adhesive Allergy Intermediate SKIN Verified 01/21/24 17:02 BLISTERS latex Allergy Unknown PER Verified 01/21/24 17:02 [facility] "PT DENIES" Home Medications Medication Instructions Recorded Confirmed Type acetaminophen 500 mg tablet 1,000 mg PO TID PRN Pain 03/06/23 02/24/24 History (Tylenol Extra Strength) amitriptyline 25 mg tablet 50 mg PO HS 03/06/23 02/24/24 History atorvastatin 80 mg tablet 80 mg PO DAILY 03/06/23 02/24/24 History clopidogrel 75 mg tablet 75 mg PO QAM 03/06/23 02/24/24 History duloxetine 30 mg capsule,delayed 30 mg PO QPM 03/06/23 02/24/24 History release duloxetine 60 mg capsule,delayed 60 mg PO QPM 03/06/23 02/24/24 History release finasteride 5 mg tablet 5 mg PO DAILY 03/06/23 02/24/24 History gabapentin 300 mg capsule 300 mg PO TID 03/06/23 02/24/24 History levothyroxine 75 mcg tablet 75 mcg PO DAILYBB 03/06/23 02/24/24 History nitroglycerin 0.4 mg sublingual 0.4 mg sublingual DIRECTED PRN 03/06/23 02/24/24 History tablet Chest Pain pantoprazole 40 mg tablet,delayed 40 mg PO DAILY 03/06/23 02/24/24 History release ipratropium 0.5 mg-albuterol 3 mg 3 ml inhalation Q6H PRN Shortness 01/21/24 02/24/24 History (2.5 mg base)/3 mL nebulization Of Breath soln umeclidinium 62.5 mcg-vilanterol 1 inh inhalation DAILY 01/21/24 02/24/24 History 25 mcg/actuation powdr for inhalation (Anoro Ellipta) metoprolol succinate 25 mg 50 mg (2 x 25 mg) PO QAM #60 tabs 01/27/24 02/24/24 Rx tablet,extended release 24 hr tamsulosin 0.4 mg capsule 0.4 mg PO QAM #30 caps 01/27/24 02/24/24 Rx Past Med/Surg History Problem List (Updated 02/24/24 @ 17:03 by Naty Bolanos MD) Non-ST elevation NV (NSTEMI) (Acute) Periprosthetic fracture around internal prosthetic right hip joint (Acute) Acute pain of right hip (Acute) Lightheadedness (Acute) Fall from standing (Acute) Dyslipidemia, goal LDL below 70 HTN, goal below 130/80 AVNRT (AV pola re-entry tachycardia) Orthostatic hypotension JOHN (acute kidney injury) (Acute) Syncope and collapse (Acute) BRENDA (obstructive sleep apnea) CAD (coronary artery disease) Sinus node dysfunction Elevated troponin Anemia (Acute) BPH w urinary obs/LUTS Moderate persistent asthma ASCVD (arteriosclerotic cardiovascular disease) Closed femur fracture (Acute) PSVT (paroxysmal supraventricular tachycardia) Cough (Acute) Wide-complex tachycardia (Acute) DDD (degenerative disc disease), lumbar HTN (hypertension) Hypothyroidism Zoster ophthalmicus Herpes zoster (Acute) Chronic anticoagulation (Chronic) Chronic right SI joint pain (Chronic) Asthma, allergic (Acute) Atherosclerotic heart disease of [place] coronary artery without angina pectoris (Acute) Chronic bronchitis (Acute) Chronic cholecystitis (Acute) Deep vein thrombosis of distal lower extremity (Acute) Diverticulosis of colon (Acute) Dyslipidemia (Acute) Idiopathic scoliosis (Acute) Inflamed seborrheic keratosis (Acute) Major depressive disorder (Acute) Mediastinal adenopathy (Acute) Pleurisy (Acute) Pulmonary nodule seen on imaging study (Acute) SOB (shortness of breath) (Acute) Sleep apnea (Acute) Vitamin D deficiency (Acute) Neuritis of left ulnar nerve (Chronic) Myofascial pain (Chronic) Chronic hip pain after total replacement of right hip joint (Chronic) 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 (Chronic) Symptomatic bradycardia (Chronic) Emphysema of lung (Chronic) 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) Lumbar post-laminectomy syndrome (Chronic) DVT (deep venous thrombosis) (Chronic 01/29/14) Hypothyroidism (Chronic) COPD (chronic obstructive pulmonary disease) (Chronic) BPH (benign prostatic hyperplasia) (Chronic) Carotid stenosis (Chronic) Diastolic dysfunction (Chronic) SSS (sick sinus syndrome) (Chronic) Pacemaker (Chronic) HTN (hypertension) (Chronic) HLD (hyperlipidemia) (Chronic) Depression (Chronic) RLS (restless legs syndrome) (Chronic) History of left heart catheterization (LHC) (Chronic) Fingertip amputation (Chronic) Exertional shortness of breath (Chronic) Lung infiltrate (Chronic) Osteoarthritis of left knee (Chronic) Medical History Chronic hypoxic respiratory failure Spinal cord stimulator status Surgical History Status post insertion of spinal cord stimulator Family History Mother Heart disease Social History Smoking Status: Unknown if ever smoked Tobacco Type: Cigarettes Do You Dip or Chew Tobacco: No; Hx Alcohol Use: No Hx Substance Use: No Preferred Language: Divehi Communication Ability: Effective Digital Production 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 Head: (-) headache, (+) dizziness. Eye: (-) blurring of vision, (-) double vision, (-) redness. Ear: (-) hearing loss, (-) discharge, (-) vertigo Nose: (-) discharge, (-) bleeding, (-) congestion, (-) post nasal drip. Throat: (-) sore throat, (-) hoarseness of voice, (-) odynophagia. Cardiovascular: (-) chest pain, (-) palpitations, (-) syncope. Respiratory: (-) shortness of breath, (-) cough, (-) wheezing, (-) hemoptysis. Neuro: (-) weakness in extremities, (-) numbness, (-) tingling, (-) tremor (+)syncope Gastrointestinal: (-) belly pain, (-) belly distension, (-) nausea, (-) vomiting, (-) diarrhea hematochezia, (-) bowel incontinence Genitourinary: (-) hematuria, (-) dysuria, (-) polyuria, (-) hesitancy, (-) frequency, (-) urinary incontinence. Musculoskeletal: (-) myalgia, (-) arthralgia. Skin: (-) rashes. Endocrine: (-) heat/cold intolerance. Psychiatry: (-) depression, (-) hallucination. Physical Exam Physical Exam: GENERAL APPEARANCE: AxOx3, lethargic but pleasant gentleman, poor historian however oriented HEENT: NC, AT. MMM. EOMI, clear conjunctiva, oropharynx clear poor dentition NECK: Supple without lymphadenopathy. No stiffness or restricted ROM. HEART: Normal rate and regular rhythm, normal S1/S1, no m/r/g LUNGS: CTAB, diminished 2/2 effort 3LNC ABDOMEN: Soft, nontender, nondistended with good bowel sounds heard. EXTREMITIES: Without cyanosis, clubbing or edema. pulses intact, motor intact NEUROLOGICAL: Grossly nonfocal. Alert and oriented, moving all 4 extremities. CN not formally tested but appear grossly intact. Skin: Warm and dry without any rash. Results & Data Results & Data Vital Signs (Past 12 Hours) Vital Signs Temp Pulse Pulse Resp BP BP Pulse Ox 02/24/24 17:00 61 18 133/76 93 02/24/24 16:26 61 18 117/67 96 02/24/24 15:10 65 18 113/84 95 02/24/24 15:00 60 18 113/84 92 02/24/24 14:40 63 02/24/24 14:37 36.6 C 60 10 L 113/84 95 O2 Del Method O2 Flow Rate 02/24/24 17:00 Nasal Cannula 3 02/24/24 16:26 Nasal Cannula 2 02/24/24 15:10 Nasal Cannula 2 02/24/24 15:00 Nasal Cannula 2 02/24/24 14:40 02/24/24 14:37 Nasal Cannula 2 Laboratory Results Short CBC 02/24/24 Range/Units 15:15 WBC 6.05 (4.8-10.8) K/ul Hgb 13.2 L (14.0-18.0) g/dl Hct 39.8 L (42.0-52.0) % Plt Count 240 (130-400) K/uL BMP 02/24/24 15:15 Sodium 138 Potassium 4.6 Chloride 103 Carbon Dioxide 32 BUN 14 Creatinine 1.48 H Glucose 126 H Calcium 9.3 Cardiac Enzymes 02/24/24 Range/Units 15:15 Total Creatine Kinase 88 (30-223) U/L Liver Function 02/24/24 Range/Units 15:15 Total Bilirubin 0.4 (0.2-1.0) mg/dl AST 15 (13-39) U/L ALT 12 (7-52) U/L Alkaline Phosphatase 95 (34-104) U/L Albumin 4.1 (3.4-5.0) gm/dl Diagnostic Findings Chest X-Ray 02/24/24 14:44 XR chest 1V portable HISTORY: trauma COMPARISON: Chest 01/21/2024. FINDINGS: No pneumothorax. No pleural effusions. The heart remains mildly enlarged. Thoracic spinal stimulator leads in left-sided pacemaker again noted. No evidence for pulmonary edema. No new focal lung consolidations. Left basilar linear densities persist and favor subsegmental atelectasis. No acute fractures identified. IMPRESSION: No acute process within the chest. ACT 112: Negative or not required by law. Electronically signed by: Andrei Guillen M.D. 02/24/2024 3:[address] 02/24/24 14:[address] DOSE: HISTORY: Trauma TECHNIQUE: Multiaxial CT images of the head were performed without the use of intravenous contrast. Automated exposure control was utilized for this study. A dose lowering technique was utilized adhering to the principles of ALARA. Comparison: Head CT 01/21/2024. Findings: The paranasal sinuses and mastoid air cells are clear. The calvarium and skull base are intact. There is no mass, hematoma, midline shift, acute infarct. White matter hypodensity is nonspecific but suggestive of microvascular ischemic change. The ventricles and sulci demonstrate mild age-related involutional changes. Impression: No significant change compared to the prior study. No acute intracranial abnormality. ACT 112: Negative or not required by law. Electronically signed by: Andrei Guillen M.D. 02/24/2024 4:39 PM Pelvis X-Ray 02/24/24 14:44 XR pelvis 1-2V routine CLINICAL HISTORY: trauma COMPARISON STUDY: Pelvis and left hip 10/25/2022. 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 Lucencies at the proximal right femur and base of the lesser trochanter may represent age- indeterminate nondisplaced fractures. No fracture or dislocation within the pelvis or left hip. IMPRESSION: Linear lucencies within the proximal femur and base of the right lesser trochanter may represent age-indeterminate nondisplaced fractures. Is patient is complaining of right hip pain then consider follow-up dedicated right hip radiograph for further evaluation. ACT 112: Negative or not required by law. Electronically signed by: Andrei Guillen M.D. 02/24/2024 3:10 PM Abdomen/Pelvis CT 02/24/24 14:[address] WITH CONTRAST, ABDOMEN AND PELVIS CT WITH INTRAVENOUS CONTRAST CT DOSE: 4575.89 mGy.cm HISTORY: Trauma TECHNIQUE: Multiaxial CT images of the chest, abdomen, and pelvis were performed following the intravenous administration of contrast. A dose lowering technique was utilized adhering to the principles of ALARA. COMPARISON: Chest CT 12/18/2023. Abdomen and pelvis CT 02/29/2000 and FINDINGS: Chest CT: There is a left-sided pacemaker and thoracic spinal stimulator leads noted. No acute fractures within the chest. Normal thyroid gland. Normal esophagus. No pleural or pericardial effusions. The heart is mildly enlarged. Normal caliber thoracic aorta with no evidence for a dissection. The main pulmonary arteries are patent. Mild mediastinal and bilateral hilar lymphadenopathy has improved. There are few calcified mediastinal and right hilar lymph nodes noted. No mediastinal hematoma identified. No pneumothorax. The central airways are patent. Suture material noted within the left upper lobe. Adjacent linear scarlike densities remain stable. Interstitial thickening and groundglass densities within the lungs posteriorly favor dependent change/atelectasis. Otherwise, no focal lung consolidations to suggest a pneumonia. No evidence for pulmonary edema. Abdomen/pelvis CT: No pneumoperitoneum. No pneumatosis. There are bilateral total hip arthroplasties. The right proximal femoral periprosthetic fracture is partially visualized on this study. There is a small intramuscular hematoma within the distal iliopsoas muscle. This is anterior to the right hip fracture. No retroperitoneal hematoma. Thoracic spinal stimulator leads are again noted. Multiple duodenal diverticula are present. Prior cholecystectomy. The liver, spleen, adrenal glands, and pancreas unremarkable. There is a punctate stone within the right kidney. There is a punctate stone within the lower pole of the left kidney. No ureteral stones. No hydronephrosis. The bladder is not well visualized due to the metallic artifact but appears unremarkable. No retroperitoneal lymphadenopathy. Calcified plaque within the normal caliber abdominal aorta. Trace pelvic free fluid is noted. Colonic diverticulosis. No evidence for acute diverticulitis. No bowel wall thickening or obstruction. IMPRESSION: 1. No acute traumatic process within the chest. 2. Mild mediastinal and bilateral hilar lymphadenopathy has improved. 3. There is a nondisplaced right femoral periprosthetic fracture with a small adjacent intramuscular hematoma at the distal iliopsoas. 4. Bilateral nephrolithiasis. No hydronephrosis. 5. Trace pelvic free fluid. 6. Additional findings as described above. ACT 112: Negative or not required by law. Electronically signed by: Andrei Guillen M.D. 02/24/2024 5:[address] 02/24/24 14:[address] DOSE: HISTORY: Trauma TECHNIQUE: Multiaxial CT images of the cervical spine were performed and reformatted in the sagittal and coronal plane without the use of contrast. A dose lowering technique was utilized adhering to the principles of ALARA. COMPARISON: Cervical spine CT 10/25/2022. FINDINGS: No fractures. No subluxation. Prevertebral soft tissues and the C1-C2 interval are intact. No pneumothorax. Left-sided pacemaker wires are noted. IMPRESSION: No fractures within the cervical spine. ACT 112: Negative or not required by law. Electronically signed by: Andrei Guillen M.D. 02/24/2024 4:[address] 02/24/24 14:[address] WITH CONTRAST, ABDOMEN AND PELVIS CT WITH INTRAVENOUS CONTRAST CT DOSE: 4575.89 mGy.cm HISTORY: Trauma TECHNIQUE: Multiaxial CT images of the chest, abdomen, and pelvis were performed following the intravenous administration of contrast. A dose lowering technique was utilized adhering to the principles of ALARA. COMPARISON: Chest CT 12/18/2023. Abdomen and pelvis CT 02/29/2000 and FINDINGS: Chest CT: There is a left-sided pacemaker and thoracic spinal stimulator leads noted. No acute fractures within the chest. Normal thyroid gland. Normal esophagus. No pleural or pericardial effusions. The heart is mildly enlarged. Normal caliber thoracic aorta with no evidence for a dissection. The main pulmonary arteries are patent. Mild mediastinal and bilateral hilar lymphadenopathy has improved. There are few calcified mediastinal and right hilar lymph nodes noted. No mediastinal hematoma identified. No pneumothorax. The central airways are patent. Suture material noted within the left upper lobe. Adjacent linear scarlike densities remain stable. Interstitial thickening and groundglass densities within the lungs posteriorly favor dependent change/atelectasis. Otherwise, no focal lung consolidations to suggest a pneumonia. No evidence for pulmonary edema. Abdomen/pelvis CT: No pneumoperitoneum. No pneumatosis. There are bilateral total hip arthroplasties. The right proximal femoral periprosthetic fracture is partially visualized on this study. There is a small intramuscular hematoma within the distal iliopsoas muscle. This is anterior to the right hip fracture. No retroperitoneal hematoma. Thoracic spinal stimulator leads are again noted. Multiple duodenal diverticula are present. Prior cholecystectomy. The liver, spleen, adrenal glands, and pancreas unremarkable. There is a punctate stone within the right kidney. There is a punctate stone within the lower pole of the left kidney. No ureteral stones. No hydronephrosis. The bladder is not well visualized due to the metallic artifact but appears unremarkable. No retroperitoneal lymphadenopathy. Calcified plaque within the normal caliber abdominal aorta. Trace pelvic free fluid is noted. Colonic diverticulosis. No evidence for acute diverticulitis. No bowel wall thickening or obstruction. IMPRESSION: 1. No acute traumatic process within the chest. 2. Mild mediastinal and bilateral hilar lymphadenopathy has improved. 3. There is a nondisplaced right femoral periprosthetic fracture with a small adjacent intramuscular hematoma at the distal iliopsoas. 4. Bilateral nephrolithiasis. No hydronephrosis. 5. Trace pelvic free fluid. 6. Additional findings as described above. ACT 112: Negative or not required by law. Electronically signed by: Andrei Guillen M.D. 02/24/2024 5:33 PM Hip X-Ray 02/24/24 15:14 XR hip RT min 2V CLINICAL HISTORY: R hip pain s/p fall COMPARISON STUDY: Pelvis 02/24/2024. FINDINGS: Confirmation of a nondisplaced periprosthetic fracture within the residual proximal right femur. The right hip prosthesis appears intact. No dislocation. IMPRESSION: Confirmation of a nondisplaced periprosthetic fracture within the proximal right femur. ACT 112: Negative or not required by law. Electronically signed by: Andrei Guillen M.D. 02/24/2024 3:54 PM Medications Administered Home Medications Medication Instructions Recorded Confirmed Last Taken acetaminophen 500 mg tablet 1,000 mg PO TID PRN Pain 03/06/23 02/24/24 Unknown (Tylenol Extra Strength) amitriptyline 25 mg tablet 50 mg PO HS 03/06/23 02/24/24 01/20/24 atorvastatin 80 mg tablet 80 mg PO DAILY 03/06/23 02/24/24 01/21/24 clopidogrel 75 mg tablet 75 mg PO QAM 03/06/23 02/24/24 01/21/24 duloxetine 30 mg capsule,delayed 30 mg PO QPM 03/06/23 02/24/24 01/20/24 release duloxetine 60 mg capsule,delayed 60 mg PO QPM 03/06/23 02/24/24 01/20/24 release finasteride 5 mg tablet 5 mg PO DAILY 03/06/23 02/24/24 01/21/24 gabapentin 300 mg capsule 300 mg PO TID 03/06/23 02/24/24 01/21/24 08:00 levothyroxine 75 mcg tablet 75 mcg PO DAILYBB 03/06/23 02/24/24 01/21/24 nitroglycerin 0.4 mg sublingual 0.4 mg sublingual DIRECTED PRN 03/06/23 02/24/24 Unknown tablet Chest Pain pantoprazole 40 mg tablet,delayed 40 mg PO DAILY 03/06/23 02/24/24 01/21/24 release ipratropium 0.5 mg-albuterol 3 mg 3 ml inhalation Q6H PRN Shortness 01/21/24 02/24/24 Unknown (2.5 mg base)/3 mL nebulization Of Breath soln umeclidinium 62.5 mcg-vilanterol 1 inh inhalation DAILY 01/21/24 02/24/24 01/21/24 25 mcg/actuation powdr for inhalation (Anoro Ellipta) metoprolol succinate 25 mg 50 mg (2 x 25 mg) PO QAM #60 tabs 01/27/24 02/24/24 Unknown tablet,extended release 24 hr tamsulosin 0.4 mg capsule 0.4 mg PO QAM #30 caps 01/27/24 02/24/24 Unknown
[2024-02-24] MEDS: fentaNYL citrate PF 100 MCG/2 ML VIAL IV STA ×2 (18:21→20:04)
--- NOTE | 2024-02-24 21:25 | Electrocardiogram Report ---
Test Reason : Blood Pressure : */* mmHG Vent. Rate : 61 BPM Atrial Rate : 61 BPM P-R Int : 252 ms QRS Dur : 96 ms QT Int : 430 ms P-R-T Axes : -23 -13 150 degrees QTcB Int : 432 ms Atrial-paced rhythm with prolonged AV conduction Left ventricular hypertrophy with repolarization abnormality ( R in aVL , Jeovanny product ) Possible Inferior infarct Abnormal ECG When compared with ECG of 27-Jan-2024 09:05, Electronic atrial pacemaker has replaced Junctional rhythm Vent. rate has decreased by 56 bpm Confirmed by aRmesh Lind ([id number]) on 02/24/2024 9:25:08 PM Referred By: REFERRED SELF Confirmed By: Ramseh Lind
[2024-02-24] MEDS ORDERED: ACETAMINOPHEN 500 MG TAB PO PRN (21:48)
[2024-02-24] MEDS ORDERED: MAGNESIUM HYDROXIDE SUSP 30 ML UDC PO PRN (21:48)
[2024-02-24] MEDS ORDERED: bisacodyL 10 MG SUPP PR PRN (21:48)
[2024-02-24] MEDS: SODIUM CHLORIDE 0.65% NA SOLN 45 ML (OCEAN) NAE SCH (22:13)
[2024-02-24] MEDS: MoRPHine SULFATE 4 MG/ML 1 ML CARP\\VIAL IV PRN (22:14)
[2024-02-24 22:43] LABS: Appearance Urine Clear (Clear); Bilirubin Urine Negative (Negative); Blood Urine Negative (Negative); Color Urine Yellow; Glucose Urine UA Negative (Negative); Ketones Urine Negative (Negative); Leukocyte Esterase Urine Negative (Negative); Nitrite Urine Negative (Negative); Protein Urine Negative (Negative); Specific Gravity Urine > 1.045 (1.000-1.030); Urobilinogen Urine Negative (Negative); pH Urine 5.5 (4.5-7.5)
[2024-02-24] MEDS: AMITRIPTYLINE HCL 50 MG TAB PO SCH (22:53)
[2024-02-24] MEDS: DULoxetine HCL 60 MG CAP PO SCH (22:53)
[2024-02-24] MEDS: DULoxetine HCL 30 MG CAP PO SCH (22:53)
[2024-02-24] MEDS: GABAPENTIN 300 MG CAP PO SCH (22:53)
[2024-02-25] MEDS: traMADol HCL 50 MG TABLET PO PRN (01:23)
[2024-02-25] MEDS: LEVOTHYROXINE SODIUM 75 MCG TABLET PO SCH (03:29)
[2024-02-25] MEDS: ACETAMINOPHEN 500 MG TAB PO PRN (05:24)
[2024-02-25] MEDS: OPTIRAY 320 125ml IV ONE (06:05)
--- NOTE | 2024-02-25 06:27 | CT Scan Report ---
Exam(s): CT HEAD Without Contrast EXAM: CT Head Without Intravenous Contrast CLINICAL HISTORY: Reason for exam: cva?. TECHNIQUE: Axial computed tomography images of the head/brain without intravenous contrast. CTDI is 36.05 mGy and DLP is 624.41 mGy-cm. Automated exposure control was utilized for the study. A dose lowering technique was utilized adhering to the principles of ALARA. COMPARISON: 03/15/24 FINDINGS: Brain: Chronic periventricular ischemic demyelination changes seen. No hemorrhage. Ventricles: Unremarkable. No ventriculomegaly. Bones/joints: Unremarkable. No acute fracture. Soft tissues: Unremarkable. Sinuses: Unremarkable as visualized. No acute sinusitis. Mastoid air cells: Unremarkable as visualized. No mastoid effusion. IMPRESSION: No acute intracranial abnormality Communications: Call Doctor Stroke Electronically signed by: Sen Ortega MD 02/25/24 06:26 AM
--- NOTE | 2024-02-25 06:29 | CT Scan Report ---
Exam(s): CTA NECK With Contrast IV Amt: 118 ML OPTIRAY 320 EXAM: CT Angiography Neck With Intravenous Contrast CLINICAL HISTORY: Reason for exam: cva. TECHNIQUE: Routine carotid CT angiography protocol was performed with intravenous contrast. NASCET criteria using the distal ICAs for comparison were used for evaluation of stenoses. CTDI is 50.94 mGy and DLP is 517.84 mGy-cm. Automated exposure control was utilized for the study. A dose lowering technique was utilized adhering to the principles of ALARA. MIP reconstructed images were created and reviewed. CONTRAST: Patient received 118 ML OPTIRAY 320 of IV contrast COMPARISON: None. FINDINGS: VASCULATURE: Right common and internal carotid artery: Moderate atherosclerotic calcification seen at the bifurcation of the right common carotid artery causing 50% luminal narrowing in the right internal carotid artery origin. Right external carotid artery: Unremarkable. No occlusion. Right vertebral artery: Unremarkable. No occlusion or significant stenosis. No dissection. Left common carotid artery: Mild atherosclerotic calcification seen in the left common carotid artery. Left internal carotid artery: Unremarkable. Extracranial segment is patent with no occlusion or significant stenosis. No dissection. Left external carotid artery: Unremarkable. No occlusion. Left vertebral artery: Unremarkable. No occlusion or significant stenosis. No dissection. NECK: Bones/joints: Unremarkable. No acute fracture. Soft tissues: Unremarkable. Lung apices: Postsurgical changes seen in the left upper lobe. Other findings: Mild bilateral diffuse bronchial wall thickening seen. CAROTID STENOSIS REFERENCE USING NASCET CRITERIA: % ICA stenosis = (1 - narrowest ICA diameter/diameter of distal cervical ICA) x 100. Mild - <50% stenosis. Moderate - 50-69% stenosis. Severe - 70-94% stenosis. Near occlusion - 95-99% stenosis. Occluded - 100% stenosis. 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 Communications: Call Doctor Stroke Electronically signed by: Sen Ortega MD 02/25/24 06:28 AM
--- NOTE | 2024-02-25 06:31 | CT Scan Report ---
Exam(s): CTA HEAD With Contrast IV Amt: 118 ml optiray 320 EXAM: CT Angiography Head With Intravenous Contrast CLINICAL HISTORY: Reason for exam: cva?. TECHNIQUE: Axial computed tomographic angiography images of the head with intravenous contrast. CTDI is open kidney not called him back for the CTA report that about a gram 36.05 mGy and DLP is 624.41 mGy-cm. Automated exposure control was utilized for the study. A dose lowering technique was utilized adhering to the principles of ALARA. MIP reconstructed images were created and reviewed. CONTRAST: Patient received 118 ml optiray 320 of IV contrast COMPARISON: No relevant prior studies available. FINDINGS: Right internal carotid artery: No acute findings. Intracranial segment is patent with no significant stenosis. No aneurysm. Right anterior cerebral artery: Unremarkable. No occlusion or significant stenosis. No aneurysm. Right middle cerebral artery: Unremarkable. No occlusion or significant stenosis. No aneurysm. Right posterior cerebral artery: Unremarkable. No occlusion or significant stenosis. No aneurysm. Right vertebral artery: Unremarkable as visualized. Left internal carotid artery: No acute findings. Intracranial segment is patent with no significant stenosis. No aneurysm. Left anterior cerebral artery: Unremarkable. No occlusion or significant stenosis. No aneurysm. Left middle cerebral artery: Unremarkable. No occlusion or significant stenosis. No aneurysm. Left posterior cerebral artery: Unremarkable. No occlusion or significant stenosis. No aneurysm. Left vertebral artery: Unremarkable as visualized. Basilar artery: Unremarkable. No occlusion or significant stenosis. No aneurysm. IMPRESSION: Normal head CTA. Communications: Call Doctor Stroke Electronically signed by: Sen Ortega MD 02/25/24 06:30 AM
--- NOTE | 2024-02-25 06:31 | Orthopedic Consultation ---
Date of Service February 25, 2024 Assessment & Plan (1) Periprosthetic fracture around internal prosthetic right hip joint: I went over the x-rays in detail. The stem seems to be stable, and as long as the stem is stable the fracture can heal where it is without surgery. When I went up to see him this morning he was in CT scan due to a stroke alert. At this point he has multiple medical comorbidities and would not be a surgical candidate anyway. I will continue to follow him and examined him more closely once he returns to his room. History of Present Illness Reason for Consultation: Right periprosthetic hip fracture. Requesting Physician: . Attending Physician: Yaquelin Mcfarland MD Gwyn is a pleasant 79-year-old male who had his right hip replaced by Dr. Rodriguez in [place] about 20 years ago. Unfortunately, he had a fall onto his right hip yesterday. He came to the emergency room with right hip pain. X-rays demonstrated a nondisplaced periprosthetic hip fracture. He was admitted to the hospital. Orthopedics was consulted to evaluate and treat.. Allergies Allergy/AdvReac Type Severity Reaction Status Date / Time adhesive Allergy Intermediate SKIN Verified 01/21/24 17:02 BLISTERS latex Allergy Unknown PER Verified 01/21/24 17:02 [facility] "PT DENIES" Home Medications Medication Instructions Recorded Confirmed Type acetaminophen 500 mg tablet 1,000 mg PO TID PRN Pain 03/06/23 02/24/24 History (Tylenol Extra Strength) amitriptyline 25 mg tablet 50 mg PO HS 03/06/23 02/24/24 History atorvastatin 80 mg tablet 80 mg PO DAILY 03/06/23 02/24/24 History clopidogrel 75 mg tablet 75 mg PO QAM 03/06/23 02/24/24 History duloxetine 30 mg capsule,delayed 30 mg PO QPM 03/06/23 02/24/24 History release duloxetine 60 mg capsule,delayed 60 mg PO QPM 03/06/23 02/24/24 History release finasteride 5 mg tablet 5 mg PO DAILY 03/06/23 02/24/24 History gabapentin 300 mg capsule 300 mg PO TID 03/06/23 02/24/24 History levothyroxine 75 mcg tablet 75 mcg PO DAILYBB 03/06/23 02/24/24 History nitroglycerin 0.4 mg sublingual 0.4 mg sublingual DIRECTED PRN 03/06/23 02/24/24 History tablet Chest Pain pantoprazole 40 mg tablet,delayed 40 mg PO DAILY 03/06/23 02/24/24 History release ipratropium 0.5 mg-albuterol 3 mg 3 ml inhalation Q6H PRN Shortness 01/21/24 02/24/24 History (2.5 mg base)/3 mL nebulization Of Breath soln umeclidinium 62.5 mcg-vilanterol 1 inh inhalation DAILY 01/21/24 02/24/24 History 25 mcg/actuation powdr for inhalation (Anoro Ellipta) metoprolol succinate 25 mg 50 mg (2 x 25 mg) PO QAM #60 tabs 01/27/24 02/24/24 Rx tablet,extended release 24 hr tamsulosin 0.4 mg capsule 0.4 mg PO QAM #30 caps 01/27/24 02/24/24 Rx Past Med/Surg History Problem List Non-ST elevation RI (NSTEMI) (Acute) Periprosthetic fracture around internal prosthetic right hip joint (Acute) Acute pain of right hip (Acute) Lightheadedness (Acute) Fall from standing (Acute) Dyslipidemia, goal LDL below 70 HTN, goal below 130/80 AVNRT (AV pola re-entry tachycardia) Orthostatic hypotension JOHN (acute kidney injury) (Acute) Syncope and collapse (Acute) BRENDA (obstructive sleep apnea) CAD (coronary artery disease) Sinus node dysfunction Elevated troponin Anemia (Acute) BPH w urinary obs/LUTS Moderate persistent asthma ASCVD (arteriosclerotic cardiovascular disease) Closed femur fracture (Acute) PSVT (paroxysmal supraventricular tachycardia) Cough (Acute) Wide-complex tachycardia (Acute) DDD (degenerative disc disease), lumbar HTN (hypertension) Hypothyroidism Zoster ophthalmicus Herpes zoster (Acute) Chronic anticoagulation (Chronic) Chronic right SI joint pain (Chronic) Asthma, allergic (Acute) Atherosclerotic heart disease of [place] coronary artery without angina pectoris (Acute) Chronic bronchitis (Acute) Chronic cholecystitis (Acute) Deep vein thrombosis of distal lower extremity (Acute) Diverticulosis of colon (Acute) Dyslipidemia (Acute) Idiopathic scoliosis (Acute) Inflamed seborrheic keratosis (Acute) Major depressive disorder (Acute) Mediastinal adenopathy (Acute) Pleurisy (Acute) Pulmonary nodule seen on imaging study (Acute) SOB (shortness of breath) (Acute) Sleep apnea (Acute) Vitamin D deficiency (Acute) Neuritis of left ulnar nerve (Chronic) Myofascial pain (Chronic) Chronic hip pain after total replacement of right hip joint (Chronic) 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 (Chronic) Symptomatic bradycardia (Chronic) Emphysema of lung (Chronic) 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) Lumbar post-laminectomy syndrome (Chronic) DVT (deep venous thrombosis) (Chronic 01/29/14) Hypothyroidism (Chronic) COPD (chronic obstructive pulmonary disease) (Chronic) BPH (benign prostatic hyperplasia) (Chronic) Carotid stenosis (Chronic) Diastolic dysfunction (Chronic) SSS (sick sinus syndrome) (Chronic) Pacemaker (Chronic) HTN (hypertension) (Chronic) HLD (hyperlipidemia) (Chronic) Depression (Chronic) RLS (restless legs syndrome) (Chronic) History of left heart catheterization (LHC) (Chronic) Fingertip amputation (Chronic) Exertional shortness of breath (Chronic) Lung infiltrate (Chronic) Osteoarthritis of left knee (Chronic) Medical History Chronic hypoxic respiratory failure Spinal cord stimulator status Surgical History Status post insertion of spinal cord stimulator Family History Mother Heart disease Social History Smoking Status: Never smoker Tobacco Type: Cigarettes Do You Dip or Chew Tobacco: No; Hx Alcohol Use: No Hx Substance Use: No Preferred Language: Greenlandic Communication Ability: Effective Cathode Builder Required: No Beliefs That Will Affect Care: None marital status: Current Living Situation: Spouse Current Living Situation Comment: Home with current occupational status: disabled Feels Safe at Home: Yes Safety Concerns: Feels Safe At This Time Assistive Devices: Cane, Denture - Upper, Scooter/Electric Scooter, Walker and Wheelchair Review of Systems All systems reviewed & are unremarkable except as noted in HPI & below. Physical Exam I was unable to do an exam of Gwyn's hip because he was in CT scan. According to the nurse, he was having a lot of pain around the hip region.. Constitutional WD/WN, vitals as above Eyes PERRL, conjunctivae normal, anicteric sclerae ENMT external ear and nose normal, oropharynx normal Neck trachea midline, no thyromegaly Respiratory normal respiratory effort Cardiovascular RRR, no murmur, no edema Gastrointestinal (Abdomen) normal bowel sounds, soft, nontender, no hepatosplenomegaly Psychiatric A+Ox3, euthymic affect Results & Data Results & Data Laboratory Results . Diagnostic Findings X-rays of the right hip show a nondisplaced periprosthetic right hip fracture. The stem of the prosthesis appears to be stable.. PG Care Time/CCT Total # of Minutes Spent Total Time Spent with Patient: Total time spent is greater than 50% in coordination of care (as documented) at patient's floor/unit and/or counseling patient: Coding Level of Care Code 91656 IN/OBS CONSULT LVL 4,60M Diagnoses Periprosthetic fracture around internal prosthetic right hip joint M97.01XA
[2024-02-25 06:33] LABS: Base Excess ABG -0.8 mEq/L (-9-1.8); HCO3 ABG 25 mmol/L (19-24); Oxygen Saturation ABG 95.8 % (90-95); PCO2 ABG 47 mmHg (35-46); PO2 ABG 75 mmHg (80-95); pH ABG 7.34 (7.35-7.45)
[2024-02-25 06:34] LABS: Allen Test Pos (Pos)
[2024-02-25] MEDS ORDERED: VANCOMYCIN CONSULT ACTIVE PRN (06:41)
[2024-02-25] MEDS ORDERED: VANCOMYCIN HCL 1,000 MG in SODIUM CHLORIDE 0.9% 250 ML IV SCH (06:45)
[2024-02-25 06:46] LABS: Basophils # (auto) 0.03 K/uL (0.00-0.20); Basophils % (auto) 0.3 %; Eosinophils # (auto) 0.04 K/uL (0.00-0.50); Eosinophils % (auto) 0.4 %; Hematocrit (blood only) 35.3 % (42.0-52.0); Hemoglobin 11.5 g/dl (14.0-18.0); Immature Granulocytes # (auto) 0.03 K/uL (0.01-0.20); Immature Granulocytes % (auto) 0.3 %; Lymphocytes # (auto) 0.62 K/uL (1.20-3.40); Lymphocytes % (auto) 6.5 %; Mean Corpuscular Hemoglobin 31.2 pg (25.0-34.0); Mean Corpuscular Hgb Conc 32.6 g/dL (32.0-36.0); Mean Corpuscular Volume 95.7 fL (80.0-100.0); Mean Platelet Volume 10.5 fL (9.4-12.4); Monocytes # (auto) 0.85 K/uL (0.11-0.59); Monocytes % (auto) 8.9 %; Neutrophils % (auto) 83.6 %; Platelet Count 193 K/uL (130-400); RDW Coefficient of Variation 13.7 % (11.5-14.5); RDW Standard Deviation 47.8 fL (36.4-46.3); Red Blood Count 3.69 M/uL (4.70-6.10); White Blood Count 9.57 K/ul (4.8-10.8)
[2024-02-25] MEDS: NALOXONE HCL 0.4 MG/1 ML VIAL/CARP IV PRN (06:48)
[2024-02-25 06:59] LABS: Albumin Globulin Ratio 1.5 (0.9-2); Albumin Level 3.7 gm/dl (3.4-5.0); BUN Creatinine Ratio 10.2 (10-20); Bilirubin,Total 0.6 mg/dl (0.2-1.0); Calcium 8.7 mg/dl (8.6-10.3); Creatinine Clr Calc Pharmacy 53.3 ml/min; Est GFR (African American) 61.7 ml/min; Est GFR (Non-African American) 53.3 ml/min; Globulin 2.5 gm/dl (2.5-4.0); Magnesium 1.9 mg/dl (1.7-2.4); Potassium 4.2 mmol/L (3.5-5.1); Total Protein 6.2 gm/dl (6.0-8.3)
[2024-02-25] MEDS: NALOXONE HCL 0.4 MG/1 ML VIAL/CARP IV STA (07:02)
[2024-02-25 07:04] LABS: Troponin I High Sensitivity 19.7 pg/ml (0-20)
[2024-02-25 07:14] LABS: Thyroid Stimulating Hormone 3.988 uIu/ml (0.300-4.500)
[2024-02-25 07:19] LABS: Ferritin 192.1 ng/ml (8-388)
[2024-02-25 07:33] LABS: Folate (Folic Acid),Ser orPlas 12.87 ng/ml (>5.38)
[2024-02-25] MEDS: PIPERACILLIN/TAZOBACTAM 4.5 GM/100 ML BAG IV STA (07:43)
[2024-02-25] MEDS: SODIUM CHLORIDE 0.9% 1,000 ML IV SCH (07:43)
[2024-02-25] MEDS: VANCOMYCIN HCL 2,000 MG in SODIUM CHLORIDE 0.9% 500 ML IV ONE (07:43)
--- NOTE | 2024-02-25 08:46 | Communication Note ---
Date of Service: February 25, 2024 Last night patient was spiking temp last night. He seems alert and oriented x4 at 3:30am and stroke alert was called around 5:30am as he was not talking and minimal response. Minimal movements of extremities. Mumbling words. CT head and cta head and neck no acute findings. ABG showed PH 7.34 pco2 47 Po 75 hco3 25 oxygen 95%. lactic acid came at 2.9. Vitals ok. Got morphine around 10pm last night and and a dose of tramadol. Narcan was given before [facility] stroke Neurology came on cart and patient woke up and was talking in full sentences and moved his extremities. thought it was not stroke and advised to workup for toxic and infections metabolic encephalopathy. Started on iv fluids and iv zosyn and vancomycin.Notified Am providers
--- NOTE | 2024-02-25 09:01 | Hospitalist Progress Note ---
Date of Service February 25, 2024 Assessment & Plan (1) Periprosthetic fracture around internal prosthetic right hip joint: (2) Acute pain of right hip: (3) Fall from standing: Plan Mr. Shaver is a 78 year old M with a PMH of COPD, asthma, bronchiectasis, chronic respiratory failure on 3L NC O2, HTN, HLD, sinus node dysfunction s/p pacemaker, CAD s/p balloon angioplasty 2017, SVT, GERD, BPH, RLS, depression, chronic back pain and others listed below presented to ED after fall at home. Patient a trauma alert given fall while on DAPT. Patient was a trauma alert and admitted to PCU for close monitoring as patient on plavix Course complicated thus far due to altered mental status, likely multifactorial. Stroke alert called and imaging did not reveal stroke. #Fevers possibly secondary to fracture and hematoma presence lactate elevated this am iso AMS from opioids given symptoms for presentation, infectious work up ordered -Follow infectious work up -Continue Zosyn x 48 hours empiric -Procal ordered Reviewed CXR appears stable #Acute metabolic encephalopathy patient with notable pain given fracture/call AMS after compounded medications administered, responsive to narcan Discontinue IV opioids Continue tramadol prn kpad for back/hip Schedule Tylenol #Traumatic Fall c/b right periprosthetic nondisplaced fracture #intramuscular hematoma in distal iliopsoas #Chronic ambulatory dysfunction -admit PCU/tele -Tramadol q4 moderate pain, reassess for severe pain for IV medication -PT/OT -Bed rest for now -VS per protocol -SCD and compression stockings -Repeat CBC in am given plavix -Ortho consulted: No surgical intervention at this time, CTM -IS #Chronic normocytic Anemia Hgb 13.2 on admission (likely element of hemoconcentration) baseline 10-11 , noted to be iron deficient, will plan for po replacement B12 160, start IM cyanocobalamin for 7 days, po upon d/c #Syncopal episodes #AVNRT #Orthostatic hypotension #HX of symptomatic bradycardia s/p PPM -Multiple admissions for the same recently -DAKOTAH hose placed for DVT but also to help with orthostasis -Home antihypertensives d/c -Continue Metoprolol Succinate -Pacemaker interrogation ordered -spoke to [employer] rep, 7 recorded events from 02/22, no events from 02/23 -Cardiology consult: is burden of AVNRT driving factor, further metoprolol dosing warranted at this time? 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 #HLD -Volume status relatively dry, no signs of volume overload -Continue plavix -Continue metorpolol succinate 50daily -Continue statin #Chronic back pain s/p spinal stimulator Continue duloxetine and gabapentin #Chronic hypoxic resp failure #COPD Continue home nebs and inhaler Continue supplemental O2 CXR appears stable #Elevated troponin, mild iso CAD, chronic hypoxia no sign of active acs, monitor on tele #JOHN (acute kidney injury) *improving Cr 1.5 (Baseline Cr: 1.1), dpwntrending to 1.2 BMP in am #Hyperglycemia #Prediabetes Glucose levels elevated Hgba1c 6.6 01/2024 CTM #BPH (benign prostatic hyperplasia) Continue tamsulosin, finasteride #Hypothyroidism Continue levothyroxine TSH WNL DVT Ppx: SCDs Code status: DNR/DNI PCP: Elio Retana Admission and Anticipated Discharge Date Admission Date: February 24, 2024 Subjective Stroke alert overnight: imaging not c/w stroke, likely AMS iso medication/?infection Patient awakens, alert to self. Able to state pain present in right leg Noted coarse breath sounds--denies any resp distress, on 4L NC Physical Exam Constitutional: lethargic, maintaining airway, alert to self Respiratory: coarse breath sounds in upper airway, no resp distress noted, no accessory muscle use Cardiovascular: RRR, no murmur, no edema Results & Data Results & Data Vital Signs (Past 12 Hours) Vital Signs Temp Pulse Pulse Resp BP Pulse Ox O2 Del Method 02/25/24 07:39 37.1 C 64 22 162/75 H 94 Nasal Cannula 02/25/24 07:26 Nasal Cannula 02/25/24 06:54 79 02/25/24 05:44 37.6 C H 84 18 169/73 H 91 Nasal Cannula 02/25/24 03:20 38.6 C H 78 16 178/80 H 92 Nasal Cannula 02/25/24 00:17 37.4 C 60 18 129/75 93 Nasal Cannula 02/24/24 22:10 Nasal Cannula 02/24/24 22:06 Nasal Cannula 02/24/24 21:52 60 02/24/24 21:30 Nasal Cannula 02/24/24 21:30 36.7 C 62 18 122/68 92 Room Air O2 Flow Rate 02/25/24 07:39 4 02/25/24 07:26 3 02/25/24 06:54 02/25/24 05:44 3 02/25/24 03:20 2.0 02/25/24 00:17 3.0 02/24/24 22:10 3 02/24/24 22:06 3 02/24/24 21:52 02/24/24 21:30 3 02/24/24 21:30 Laboratory Results Short CBC 02/24/24 02/25/24 Range/Units 15:15 06:08 WBC 6.05 9.57 (4.8-10.8) K/ul Hgb 13.2 L 11.5 L (14.0-18.0) g/dl Hct 39.8 L 35.3 L (42.0-52.0) % Plt Count 240 193 (130-400) K/uL BMP 02/24/24 02/25/24 15:15 06:08 Sodium 138 135 L Potassium 4.6 4.2 Chloride 103 102 Carbon Dioxide 32 25 BUN 14 13 Creatinine 1.48 H 1.28 Glucose 126 H 172 H Calcium 9.3 8.7 Cardiac Enzymes 02/24/24 Range/Units 15:15 Total Creatine Kinase 88 (30-223) U/L Liver Function 02/24/24 02/25/24 Range/Units 15:15 06:08 Total Bilirubin 0.4 0.6 (0.2-1.0) mg/dl AST 15 18 (13-39) U/L ALT 12 16 (7-52) U/L Alkaline Phosphatase 95 85 (34-104) U/L Albumin 4.1 3.7 (3.4-5.0) gm/dl Urine 02/24/24 Range/Units 22:30 Urine Color Yellow Urine Appearance Clear (Clear) Urine pH 5.5 (4.5-7.5) Ur Specific [place] > 1.045 H (1.000-1.030) Urine Protein Negative (Negative) Urine Glucose (UA) Negative (Negative) Diagnostic Findings Head CT 02/25/24 05:50 CR Exam(s): CT HEAD Without Contrast EXAM: CT Head Without Intravenous Contrast CLINICAL HISTORY: Reason for exam: cva?. TECHNIQUE: Axial computed tomography images of the head/brain without intravenous contrast. CTDI is 36.05 mGy and DLP is 624.41 mGy-cm. Automated exposure control was utilized for the study. A dose lowering technique was utilized adhering to the principles of ALARA. COMPARISON: 03/15/24 FINDINGS: Brain: Chronic periventricular ischemic demyelination changes seen. No hemorrhage. Ventricles: Unremarkable. No ventriculomegaly. Bones/joints: Unremarkable. No acute fracture. Soft tissues: Unremarkable. Sinuses: Unremarkable as visualized. No acute sinusitis. Mastoid air cells: Unremarkable as visualized. No mastoid effusion. IMPRESSION: No acute intracranial abnormality Communications: Call Doctor Stroke Electronically signed by: Sen Ortega MD 02/25/24 06:26 AM Head CTA 02/25/24 05:52 CR Exam(s): CTA HEAD With Contrast IV Amt: 118 ml optiray 320 EXAM: CT Angiography Head With Intravenous Contrast CLINICAL HISTORY: Reason for exam: cva?. TECHNIQUE: Axial computed tomographic angiography images of the head with intravenous contrast. CTDI is open kidney not called him back for the CTA report that about a gram 36.05 mGy and DLP is 624.41 mGy-cm. Automated exposure control was utilized for the study. A dose lowering technique was utilized adhering to the principles of ALARA. MIP reconstructed images were created and reviewed. CONTRAST: Patient received 118 ml optiray 320 of IV contrast COMPARISON: No relevant prior studies available. FINDINGS: Right internal carotid artery: No acute findings. Intracranial segment is patent with no significant stenosis. No aneurysm. Right anterior cerebral artery: Unremarkable. No occlusion or significant stenosis. No aneurysm. Right middle cerebral artery: Unremarkable. No occlusion or significant stenosis. No aneurysm. Right posterior cerebral artery: Unremarkable. No occlusion or significant stenosis. No aneurysm. Right vertebral artery: Unremarkable as visualized. Left internal carotid artery: No acute findings. Intracranial segment is patent with no significant stenosis. No aneurysm. Left anterior cerebral artery: Unremarkable. No occlusion or significant stenosis. No aneurysm. Left middle cerebral artery: Unremarkable. No occlusion or significant stenosis. No aneurysm. Left posterior cerebral artery: Unremarkable. No occlusion or significant stenosis. No aneurysm. Left vertebral artery: Unremarkable as visualized. Basilar artery: Unremarkable. No occlusion or significant stenosis. No aneurysm. IMPRESSION: Normal head CTA. Communications: Call Doctor Stroke Electronically signed by: Sen Ortega MD 02/25/24 06:30 AM Neck CTA 02/25/24 05:52 CR Exam(s): CTA NECK With Contrast IV Amt: 118 ML OPTIRAY 320 EXAM: CT Angiography Neck With Intravenous Contrast CLINICAL HISTORY: Reason for exam: cva. TECHNIQUE: Routine carotid CT angiography protocol was performed with intravenous contrast. NASCET criteria using the distal ICAs for comparison were used for evaluation of stenoses. CTDI is 50.94 mGy and DLP is 517.84 mGy-cm. Automated exposure control was utilized for the study. A dose lowering technique was utilized adhering to the principles of ALARA. MIP reconstructed images were created and reviewed. CONTRAST: Patient received 118 ML OPTIRAY 320 of IV contrast COMPARISON: None. FINDINGS: VASCULATURE: Right common and internal carotid artery: Moderate atherosclerotic calcification seen at the bifurcation of the right common carotid artery causing 50% luminal narrowing in the right internal carotid artery origin. Right external carotid artery: Unremarkable. No occlusion. Right vertebral artery: Unremarkable. No occlusion or significant stenosis. No dissection. Left common carotid artery: Mild atherosclerotic calcification seen in the left common carotid artery. Left internal carotid artery: Unremarkable. Extracranial segment is patent with no occlusion or significant stenosis. No dissection. Left external carotid artery: Unremarkable. No occlusion. Left vertebral artery: Unremarkable. No occlusion or significant stenosis. No dissection. NECK: Bones/joints: Unremarkable. No acute fracture. Soft tissues: Unremarkable. Lung apices: Postsurgical changes seen in the left upper lobe. Other findings: Mild bilateral diffuse bronchial wall thickening seen. CAROTID STENOSIS REFERENCE USING NASCET CRITERIA: % ICA stenosis = (1 - narrowest ICA diameter/diameter of distal cervical ICA) x 100. Mild - <50% stenosis. Moderate - 50-69% stenosis. Severe - 70-94% stenosis. Near occlusion - 95-99% stenosis. Occluded - 100% stenosis. 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 Communications: Call Doctor Stroke Electronically signed by: Sne Ortega MD 02/25/24 06:28 AM Medications Administered Home Medications Medication Instructions Recorded Confirmed Last Taken acetaminophen 500 mg tablet 1,000 mg PO TID PRN Pain 03/06/23 02/24/24 Unknown (Tylenol Extra Strength) amitriptyline 25 mg tablet 50 mg PO HS 03/06/23 02/24/2424 atorvastatin 80 mg tablet 80 mg PO DAILY 03/06/23 02/24/24 01/21/24 clopidogrel 75 mg tablet 75 mg PO QAM 03/06/23 02/24/24 01/21/24 duloxetine 30 mg capsule,delayed 30 mg PO QPM 03/06/23 02/24/24 01/20/24 release duloxetine 60 mg capsule,delayed 60 mg PO QPM 03/06/23 02/24/24 01/20/24 release finasteride 5 mg tablet 5 mg PO DAILY 03/06/23 02/24/24 01/21/24 gabapentin 300 mg capsule 300 mg PO TID 03/06/23 02/24/24 01/21/24 08:00 levothyroxine 75 mcg tablet 75 mcg PO DAILYBB 03/06/23 02/24/24 01/21/24 nitroglycerin 0.4 mg sublingual 0.4 mg sublingual DIRECTED PRN 03/06/23 02/24/24 Unknown tablet Chest Pain pantoprazole 40 mg tablet,delayed 40 mg PO DAILY 03/06/23 02/24/24 01/21/24 release ipratropium 0.5 mg-albuterol 3 mg 3 ml inhalation Q6H PRN Shortness 01/21/24 02/24/24 Unknown (2.5 mg base)/3 mL nebulization Of Breath soln umeclidinium 62.5 mcg-vilanterol 1 inh inhalation DAILY 01/21/24 02/24/24 01/21/24 25 mcg/actuation powdr for inhalation (Anoro Ellipta) metoprolol succinate 25 mg 50 mg (2 x 25 mg) PO QAM #60 tabs 01/27/24 02/24/24 Unknown tablet,extended release 24 hr tamsulosin 0.4 mg capsule 0.4 mg PO QAM #30 caps 01/27/24 02/24/24 Unknown Active Medications Generic Name Dose Route Start Last Admin Trade Name Freq PRN Reason Stop Dose Admin Acetaminophen 1,000 mg 02/25/24 04:02 02/25/24 05:24 Acetaminophen 500 Mg Tab PO 03/25/24 21:47 1,000 mg TID PRN Administration Pain or Fever Amitriptyline HCl 50 mg 02/24/24 22:00 02/24/24 22:53 Amitriptyline Hcl 50 Mg Tab PO 03/25/24 21:59 50 mg HS FELIX Administration Duloxetine HCl 30 mg 02/24/24 22:00 02/24/24 22:53 Duloxetine Hcl 30 Mg Cap PO 03/25/24 21:59 30 mg QPM FELIX Administration Duloxetine HCl 60 mg 02/24/24 22:00 02/24/24 22:53 Duloxetine Hcl 60 Mg Cap PO 03/25/24 21:59 60 mg QPM FELIX Administration Gabapentin 300 mg 02/24/24 22:00 02/24/24 22:53 Gabapentin 300 Mg Cap PO 03/25/24 21:59 300 mg TID FELIX Administration Sodium Chloride 1,000 mls @ 125 mls/hr 02/25/24 06:30 02/25/24 07:43 Nss IV 03/26/24 06:29 125 mls/hr .Q8H FELIX Administration Levothyroxine Sodium 75 mcg 02/25/24 06:30 02/25/24 03:29 Levothyroxine Sodium 75 Mcg Tablet PO 03/26/24 06:29 75 mcg DAILYBB FELIX Administration Morphine Sulfate 4 mg 02/24/24 21:48 02/24/24 22:14 Morphine Sulfate 4 Mg/Ml 1 Ml Carp\Vial IV 03/09/24 21:47 4 mg Q3H PRN Administration Pain (6,7,8,9,10) Naloxone HCl 0.1 mg 02/24/24 21:48 02/25/24 06:48 Naloxone Hcl 0.4 Mg/1 Ml Vial/Carp IV 03/25/24 21:47 0.1 mg UD PRN Administration Opiate Overdose Sodium Chloride 2 sprays 02/24/24 22:00 02/24/24 22:13 Sodium Chloride 0.65% Na Soln 45 Ml ([place]) JOSÉ MIGUEL 03/25/24 21:59 2 sprays QID FELIX Administration Tramadol HCl 50 mg 02/24/24 21:48 02/25/24 01:23 Tramadol Hcl 50 Mg Tablet PO 03/25/24 21:47 50 mg Q4H PRN Administration MODERATE Pain (4,5,6) & Pre PT
[2024-02-25] MEDS: UMECLIDINIUM/VILANTEROL 62.5/25MCG 7 PUFFS/INHALER INH SCH (09:02)
[2024-02-25] MEDS: DOXYCYCLINE HYCLATE 100 MG in DEXTROSE 5% MINI-B 100 ML IV SCH (09:04)
[2024-02-25] MEDS: FINASTERIDE 5 MG TAB PO SCH (09:06)
[2024-02-25] MEDS: PANTOprazole 40 MG TAB PO SCH (09:06)
[2024-02-25] MEDS: CLOPIDOGREL BISULFATE 75 MG TAB PO SCH (09:06)
[2024-02-25] MEDS: TAMSULOSIN HCL 0.4 MG CAP PO SCH (09:06)
[2024-02-25] MEDS: ATORVASTATIN 40 MG TAB PO SCH (09:06)
[2024-02-25] MEDS: METOPROLOL SUCC 50MG EXT REL TAB PO SCH (09:06)
--- NOTE | 2024-02-25 09:20 | Cardiology Consultation ---
Date of Consultation February 25, 2024 Assessment & Plan (1) Lightheadedness: (2) Fall from standing: (3) Acute pain of right hip: (4) Periprosthetic fracture around internal prosthetic right hip joint: (5) Orthostatic hypotension: (6) AVNRT (AV pola re-entry tachycardia): Plan Assessment: 79 year-old male with chronic complaints of dizziness and orthostatic hypotension that fell from a standing position, presumably from bending over to get his shoes. sustained a periprosthetic fracture of the right hip joint. Cardiology requested for evaluation in the setting multiple comorbidities. Plan: -Patient unable to provide any information due to being obtunded from narcotic pain medications. -Ongoing issues with orthostatic hypotension in which has been the factor regarding 2 recent hospitalizations. -BP low today in the setting of narcotic use. Continue to monitor closely. -Primary team questioning if Toprol xl can be stopped because of his blood pressure issues. This medication is not likely to cause a dramatic shift in BP and given his AVNRT history, would advise that it not be discontinued. Will discuss case with Dr. Dennis to determine if we attempt to reduce the dose. -Review of EKG and telemetry shows no ectopy or arrhythmia. Review of pacer in [facility] shows no event occurring around the time of his fall to suggest a cardiac arrhythmia induced event. -As advised during previous hospitalization, there needs to be consideration for the fact that his is on two different BPH therapies which are likely contributing to his orthostatic hypotension. -Also great concern of poor oral intake/hydration prior to this event as recorded during the previous admission. -management of periprosthetic fracture per ortho. -Continue to monitor on telemetry. Case has been discussed with Dr. Dennis. Further recommendations regarding plan of care as per his assessment. I spent a total of 40 minutes on the date of service in preparation, delivery, documentation of the care provided to the patient excluding any time spent in the performance of separately billed services. JEREMIAS Fajardo [facility] Card[facility] Supervising Physician Co-Signing Physician Notes I have personally performed a history and physical examination on the patient. I have reviewed the advance practitioner's documentation, and I agree with, and take responsibility for the plan of care. 79-year-old male admitted with fall and periprosthetic fracture around internal prosthetic right hip joint. Unclear whether patient experienced overt syncope. Telemetry reveals atrial paced rhythm and sinus rhythm since admission. Pacemaker interrogation demonstrates episodes of supraventricular tachycardia at heart rate of 130 bpm on 02/23/2024, however, patient's fall occurred 02/24/2024. There were no dysrhythmias around the time of his injury. At this time I would recommend continuing beta-kassie therapy. Amlodipine on hold. Continue to monitor orthostatic blood pressure every shift. Add compression stockings. Encourage oral hydration. Management of periprosthetic fracture as per orthopedic surgery. Wenceslao Dennis DO, [facility] History of Present Illness Reason for Consultation: AVNRT Requesting Physician: Edgar merida Attending Physician: Yaquelin Mcfarland MD History of Present Illness HPI: Patient is a 78 year old male with PMHx as noted below that presents with complaints of a fall and syncope episode. patient is quite obtunded s/t narcotic medications and unable to provide any ROS or recall of event. To the best of my knowledge per reviewed H&P and speaking with the patient's nurse. Patient has been having ongoing dizziness which has been addressed as likely orthostatic hypotension during the past 2 hospitalizations since November 2023. He had told ED staff that he bent over to pharmacy picking tech his shoes too quick and "went out", but its unclear if he had any pre-syncopal symptoms or how long the event lasted. Of note, patient has recent hospitalization 12/17-12/23/23 for multifocal pneumonia and COPD exacerbation and again -01/27/24 for syncope, orthostatic hypotension, AVNRT and JOHN. Review of chart and history suggestive of symptomatic orthostatic hypotension in the setting of multiple medications and poor oral intake. Pacemaker interrogation reviewed with Electrophysiology; likely AVNRT. LV function preserved. ? whether lack of supplemental oxygen may have been a precipitating factor. He is scheduled for an EP evaluation 04/21/[address] Pierce Recommendations: 1. Tamsulosin decreased to 0.4 mg/day 2. Losartan discontinued 3. Low dose amlodipine, 2.5 mg/day prescribed. 4. Metoprolol succinate adjusted, to 50 mg daily 5. Increase free water intake advised. 6. Supplemental oxygen use encouraged. UPon seeing patient today he is obtunded and will open his eyes to brisk tactile stimuli, but struggles to focus and his speech is very garbled and incoherent. Nursing staff states that he has been given Narcan twice. SpO2 checked while in the room demonstrating 92-93% on supplemental O2 via nasal cannula. EKG on admission demonstrates Atrial paced rhythm. rate 61bpm. Pacemaker interrogation obtained. Right hip xray shows right periprosthetic hip fracture, ortho on consult. Review of Dr. Yip's note states that he feels the stem seems to be stable and may likely heal without surgical intervention. Given his complex medical comorbidities he would not be a surgical candidate. Review of telemetry shows SR/Paced. [id number]'s No ectopy or arrhythmia overnight. Past Medical History: 1. Symptomatic bradycardia prompting implantation of dual-chamber permanent pacemaker in 2015 2. Coronary heart disease, status postcardiac catheterization at [facility] in November, for the indication of unstable angina with a proximal 50% LAD lesion that was hemodynamically significant by FFR. There was a 99% mid LAD lesion, small caliber vessel for which balloon angioplasty was performed, attempts were made to pass a 2.25 mm stent however PCI unsuccessful as the stent could not be passed beyond the proximal portion of the stenosis due to small vessel size and an acute angle of the culprit lesion and therefore medical management pursued 3. Diastolic dysfunction 4. COPD 5. Hypertension 6. Dyslipidemia 7. Chronic ambulatory dysfunction 8. SVT noted on previous pacemaker interrogations and during hospital stay, Oct, 2022 9. Pacemaker mediated tachycardia noted during admission in November 2023 10. Chart history of Paroxysmal VT Allergies Allergy/AdvReac Type Severity Reaction Status Date / Time adhesive Allergy Intermediate SKIN Verified 01/21/24 17:02 BLISTERS latex Allergy Unknown PER Verified 01/21/24 17:02 [facility] "PT DENIES" Home Medications Medication Instructions Recorded Confirmed Type acetaminophen 500 mg tablet 1,000 mg PO TID PRN Pain 03/06/23 02/24/24 History (Tylenol Extra Strength) amitriptyline 25 mg tablet 50 mg PO HS 03/06/23 02/24/24 History atorvastatin 80 mg tablet 80 mg PO DAILY 03/06/23 02/24/24 History clopidogrel 75 mg tablet 75 mg PO QAM 03/06/23 02/24/24 History duloxetine 30 mg capsule,delayed 30 mg PO QPM 03/06/23 02/24/24 History release duloxetine 60 mg capsule,delayed 60 mg PO QPM 03/06/23 02/24/24 History release finasteride 5 mg tablet 5 mg PO DAILY 03/06/23 02/24/24 History gabapentin 300 mg capsule 300 mg PO TID 03/06/23 02/24/24 History levothyroxine 75 mcg tablet 75 mcg PO DAILYBB 03/06/23 02/24/24 History nitroglycerin 0.4 mg sublingual 0.4 mg sublingual DIRECTED PRN 03/06/23 02/24/24 History tablet Chest Pain pantoprazole 40 mg tablet,delayed 40 mg PO DAILY 03/06/23 02/24/24 History release ipratropium 0.5 mg-albuterol 3 mg 3 ml inhalation Q6H PRN Shortness 01/21/24 02/24/24 History (2.5 mg base)/3 mL nebulization Of Breath soln umeclidinium 62.5 mcg-vilanterol 1 inh inhalation DAILY 01/21/24 02/24/24 History 25 mcg/actuation powdr for inhalation (Anoro Ellipta) metoprolol succinate 25 mg 50 mg (2 x 25 mg) PO QAM #60 tabs 01/27/24 02/24/24 Rx tablet,extended release 24 hr tamsulosin 0.4 mg capsule 0.4 mg PO QAM #30 caps 01/27/24 02/24/24 Rx Patient History Medical History Chronic hypoxic respiratory failure Spinal cord stimulator status Surgical History Status post insertion of spinal cord stimulator Family History Mother Heart disease Social History Smoking Status: Never smoker Tobacco Type: Cigarettes Do You Dip or Chew Tobacco: No; Hx Alcohol Use: No Hx Substance Use: No Preferred Language: Nicaraguan Communication Ability: Effective Curriculum Assistant Required: No Beliefs That Will Affect Care: None marital status: Current Living Situation: Spouse Current Living Situation Comment: Home with current occupational status: disabled Feels Safe at Home: Yes Safety Concerns: Feels Safe At This Time Assistive Devices: Cane, Denture - Upper, Scooter/Electric Scooter, Walker and Wheelchair Review of Systems Review of Systems: Unobtainable due to reduced consciousness (patient is obtunded, can not obtain ROS) Physical Exam Constitutional: well developed and well nourished; no acute distress Neck: normal visual inspection and trachea midline Respiratory: no respiratory distress, no labored breathing and no cough Auscultation: + diminished lung sounds (bilateral bases ); no crackles, no rales, no rhonchi and no wheezes Cardiovascular: Rate/Rhythm: regular rate (underlying SR/ Atrial paced ) and regular rhythm Heart Sounds: normal S1 and normal S2; no murmur Vessels: no JVD Extremities: no edema Skin: no rashes, warm and dry Neurologic: + obtunded Psychiatric: Orientation: + not alert and + not oriented x 3 Results & Data Vital Signs (Past 12 Hours) Vital Signs Temp Pulse Pulse Resp BP Pulse Ox O2 Del Method 02/25/24 07:39 37.1 C 64 22 162/75 H 94 Nasal Cannula 02/25/24 07:26 Nasal Cannula 02/25/24 06:54 79 02/25/24 05:44 37.6 C H 84 18 169/73 H 91 Nasal Cannula 02/25/24 03:20 38.6 C H 78 16 178/80 H 92 Nasal Cannula 02/25/24 00:17 37.4 C 60 18 129/75 93 Nasal Cannula 02/24/24 22:10 Nasal Cannula 02/24/24 22:06 Nasal Cannula 02/24/24 21:52 60 02/24/24 21:30 Nasal Cannula 02/24/24 21:30 36.7 C 62 18 122/68 92 Room Air O2 Flow Rate 02/25/24 07:39 4 02/25/24 07:26 3 02/25/24 06:54 02/25/24 05:44 3 02/25/24 03:20 2.0 02/25/24 00:17 3.0 02/24/24 22:10 3 02/24/24 22:06 3 02/24/24 21:52 02/24/24 21:30 3 02/24/24 21:30 Laboratory Results Cardiac Enzymes 02/24/24 02/24/24 02/25/24 Range/Units 15:15 17:36 06:08 AST 15 18 (13-39) U/L Troponin I High Sens 24.4 H 23.6 H 19.7 (0-20) pg/ml Coagulation 02/24/24 Range/Units 15:15 PT 10.5 (9.0-12.0) Seconds CBC 02/24/24 02/25/24 Range/Units 15:15 06:08 WBC 6.05 9.57 (4.8-10.8) K/ul RBC 4.12 L 3.69 L (4.70-6.10) M/uL Hgb 13.2 L 11.5 L (14.0-18.0) g/dl Hct 39.8 L 35.3 L (42.0-52.0) % Plt Count 240 193 (130-400) K/uL Neut # (Auto) 3.34 8.00 H (1.40-6.50) K/uL Lymph # (Auto) 1.65 0.62 L (1.20-3.40) K/uL [place] # (Auto) 0.81 H 0.85 H (0.11-0.59) K/uL Eos # (Auto) 0.18 0.04 (0.00-0.50) K/uL Baso # (Auto) 0.05 0.03 (0.00-0.20) K/uL Comprehensive Metabolic Panel 02/24/24 02/25/24 Range/Units 15:15 06:08 Sodium 138 135 L (136-145) mmol/L Potassium 4.6 4.2 (3.5-5.1) mmol/L Chloride 103 102 (98-107) mmol/L Carbon Dioxide 32 25 (21-32) mmol/L BUN 14 13 (6-23) mg/dl Creatinine 1.48 H 1.28 (0.6-1.4) mg/dl Glucose 126 H 172 H (70-99(Fasting)) mg/dl Calcium 9.3 8.7 (8.6-10.3) mg/dl AST 15 18 (13-39) U/L ALT 12 16 (7-52) U/L Alkaline Phosphatase 95 85 (34-104) U/L Total Protein 6.7 6.2 (6.0-8.3) gm/dl Albumin 4.1 3.7 (3.4-5.0) gm/dl Intake and Output 02/24/24 02/25/24 02/25/24 22:59 06:59 14:59 Intake Total 600 / 600 200 / 200 Output Total 500 / 500 Balance 100 / 100 200 / 200 Intake: IV 600 / 600 200 / 200 Acetaminophen 1,000 mg In 100 100 / 100 ml @ 400 mls/hr IV NOW STA Rx#: [id number] Piperacillin/Tazobactam 4.5 gm 100 / 100 In 100 ml @ 200 mls/hr IV NOW STA Rx#:[id number] Sodium Chloride 0.9% 500 ml @ 500 / 500 999 mls/hr IV .Q31M ONE Rx#: [id number] Vancomycin HCl 2,000 mg In 100 / 100 Sodium Chloride 0.9% 500 ml @ 200 mls/hr IV NOW ONE Rx#: [id number] Oral 0 / 0 Output: Urine Amount (Catheter) 500 / 500 Forrest/Indwelling 500 / 500 # Bowel Movements 0 / 0 Other: # Unmeasured Voids 1 Weight 89.6 kg 88.4 kg Weight Measurement Method Built in [facility] Built in [facility]
--- NOTE | 2024-02-25 12:20 | XRay Report ---
XR chest 1V portable CLINICAL HISTORY: gurgling, hypoxia COMPARISON STUDY: Chest radiograph and chest CT February 24, 2024. FINDINGS: Left subclavian pacer and intracanalicular electrodes are incidentally noted. Cardiomegaly is unchanged. There is no evidence for pulmonary edema. Blunting of the left costophrenic angle is du e to epicardial fat pad. Mild left basilar opacity represents atelectasis. There is no consolidation to suggest pneumonia. There has been no change in appearance of the chest. IMPRESSION: No acute cardiopulmonary findings. No change in appearance of the chest. ACT 112: Negative or not required by law. Electronically signed by: Boyd Chandler M.D. 02/25/2024 12:19 PM
[2024-02-25] MEDS: DICLOFENAC SOD 1% GEL 100 GM TUBE EXT SCH (13:07)
[2024-02-25] MEDS: PIPERACILLIN/TAZOBACTAM 4.5 GM/100 ML BAG IV SCH (13:07)
[2024-02-25] MEDS: ACETAMINOPHEN 500 MG TAB PO SCH (15:18)
[2024-02-25] MEDS: CYANOCOBALAMIN 1000 MCG/ML VIAL IM SCH (17:04)
--- NOTE | 2024-02-25 17:18 | Orthopedic Progress Note ---
Date of Service February 25, 2024 Assessment & Plan (1) Periprosthetic fracture around internal prosthetic right hip joint: He is dealing with a nondisplaced periprosthetic fracture around his right hip. Fortunately the right hip prosthesis seems to be stable. A surgical procedure would be a big procedure with a long plate and multiple screws and cables. It would not reduce the fracture at all which is given a little bit stability. However, it will heal on its own. Without surgery it might take 4 to 6 weeks for her to start feeling better. He can be touchdown weightbearing on his right leg. Right now she is not a good surgical candidate and I think he is best treated nonoperatively. I went over all this with him. He can be touchdown weightbearing on his right leg. And we can continue to follow him on an outpatient setting if he is discharged. Mark Pascal was seen and examined at bedside this evening. Unfortunately is having a lot of pain in his right hip. He also had some stroke symptoms this morning and a stroke alert was called. He is dealing with some possible narcotic induced encephalopathy. He was seen by cardiology as well today. He still deal with a lot of right hip pain.. Review of Systems All systems reviewed & are unremarkable except as noted in HPI & below. Physical Exam On physical examination of the right hip, he does have pain with gentle logroll of his hip. All of his pain is located at the proximal aspect of his right femur.. Results & Data Results & Data Laboratory Results . Diagnostic Findings . PG Care Time/CCT Total # of Minutes Spent Total Time Spent with Patient: Total time spent is greater than 50% in coordination of care (as documented) at patient's floor/unit and/or counseling patient: Coding Level of Care Code 83457 SUB INP/OBS CARE MIN Diagnoses Periprosthetic fracture around internal prosthetic right hip joint M97.01XA
[2024-02-25] MEDS ORDERED: VANCOMYCIN HCL 1,500 MG in SODIUM CHLORIDE 0.9% 500 ML IV SCH (21:00)
[2024-02-26] MEDS: KETOROLAC TROMETHAMINE 15 MG/ML VIAL IV PRN (01:44)
[2024-02-26 06:39] LABS: Hematocrit (blood only) 30.5 % (42.0-52.0); Hemoglobin 10.2 g/dl (14.0-18.0); Mean Corpuscular Hemoglobin 31.9 pg (25.0-34.0); Mean Corpuscular Hgb Conc 33.4 g/dL (32.0-36.0); Mean Corpuscular Volume 95.3 fL (80.0-100.0); Mean Platelet Volume 10.8 fL (9.4-12.4); Platelet Count 149 K/uL (130-400); RDW Coefficient of Variation 13.3 % (11.5-14.5); RDW Standard Deviation 46.5 fL (36.4-46.3)
[2024-02-26 06:56] LABS: BUN Creatinine Ratio 13.7 (10-20); Calcium 8.2 mg/dl (8.6-10.3); Est GFR (Non-African American) 51.8 ml/min; Magnesium 2.1 mg/dl (1.7-2.4); Phosphorus 3.3 mg/dl (2.5-4.9); Potassium 3.9 mmol/L (3.5-5.1)
--- NOTE | 2024-02-26 08:59 | Cardiology Progress Note ---
Date of Service February 26, 2024 Assessment & Plan (1) Lightheadedness: (2) Fall from standing: (3) Acute pain of right hip: (4) Periprosthetic fracture around internal prosthetic right hip joint: (5) Orthostatic hypotension: (6) AVNRT (AV pola re-entry tachycardia): Plan Assessment: 79 year-old male with chronic complaints of dizziness and orthostatic hypotension that fell from a standing position, presumably from bending over to get his shoes. sustained a periprosthetic fracture of the right hip joint. Cardiology requested for evaluation in the setting multiple comorbidities. Plan: -Patient unable to provide any information due to being obtunded from narcotic pain medications. -Ongoing issues with orthostatic hypotension in which has been the factor regarding 2 recent hospitalizations. -BP low today in the setting of narcotic use. Continue to monitor closely. -Primary team questioning if Toprol xl can be stopped because of his blood pressure issues. This medication is not likely to cause a dramatic shift in BP and given his AVNRT history, would advise that it not be discontinued. Will discuss case with Dr. Dennis to determine if we attempt to reduce the dose. -Review of EKG and telemetry shows no ectopy or arrhythmia. Review of pacer interrogation shows no event occurring around the time of his fall to suggest a cardiac arrhythmia induced event. -As advised during previous hospitalization, there needs to be consideration for the fact that his is on two different BPH therapies which are likely contributing to his orthostatic hypotension. -Also great concern of poor oral intake/hydration prior to this event as recorded during the previous admission. -management of periprosthetic fracture per ortho. -Continue to monitor on telemetry. 02/26/2024: -patient is awake, alert and oriented x3 today which is a significant improvement from yesterday. -He offers no cardiac complaints. -Further discussion with patient reveals that he never passed out and never had pre-syncopal symptoms. he reports that he had walked into the kitchen area, bent down to meat pickler his shoes and lost his balance, initially falling forward hitting his head on the refrigerator and subsequently fell back and onto his hip resulting in fracture. -BP remains stable, no complaints of dizziness or orthostatic hypotension; however, patient has not been out of bed during this hospitalization s/t hip fracture and obtunded state yesterday. -Review of telemetry shows no acute events overnight. -Review of device interrogation shows no arrhythmia or events at the time of his fall. there is notation of other tachycardic events in the days prior; however, this has no correlation with his fall. He will be seeing EP outpatient to further discuss these findings. -At this time, patient does not require any acute cardiac testing, no new or acute changes to medications or further cardiac evaluation in the inpatient setting. Case has been discussed with Dr. Dennis. Further recommendations regarding plan of care as per his assessment. I spent a total of 30 minutes on the date of service in preparation, delivery, documentation of the care provided to the patient excluding any time spent in the performance of separately billed services. JEREMIAS Fajardo [facility] Admission and Anticipated Discharge Date Admission Date: February 24, 2024 Supervising Physician Co-Signing Physician Notes I have personally performed a history and physical examination on the patient. I have reviewed the advance practitioner's documentation, and I agree with, and take responsibility for the plan of care. 79-year-old male admitted with fall and periprosthetic fracture around internal prosthetic right hip joint. Mechanism appears to be mechanical fall due to balance disturbance. No overt syncope. No symptomatic dysrhythmia per pacemaker interrogation. Unremarkable telemetry since admission. Continue beta- kassie therapy. Consider restart amlodipine pending ongoing blood pressure assessment. Continue to monitor orthostatic blood pressure every shift. Apply compression stockings in AM. Encourage oral hydration. Management of periprosthetic fracture as per orthopedic surgery. No further inpatient cardiac testing or intervention recommended at this time. Cardiology will sign off. Please call with any further concerns/questions. Wenceslao Dennis DO, [facility] Subjective 02/26/2024: Patient seen and examined in follow up today. Feeling much better! He is awake, alert and oriented today. Reports some hip discomfort, but no chest pain, or other cardiac concerns. Labs, vitals, diagnostics, telemetry and documentation reviewed. Telemetry reviewed showing SR/Paced rhythm. No acute events overnight. Review of Systems Review of Systems: All systems reviewed & are unremarkable except as noted in HPI & below Physical Exam Constitutional: well developed and well nourished; no acute distress Neck: normal visual inspection and trachea midline Respiratory: no respiratory distress, no labored breathing and no cough Auscultation: + diminished lung sounds (bilateral bases ); no crackles, no rales, no rhonchi and no wheezes Cardiovascular: Rate/Rhythm: regular rate (underlying SR/ Atrial paced ) and regular rhythm Heart Sounds: normal S1 and normal S2; no murmur Vessels: no JVD Extremities: no edema Skin: no rashes, warm and dry Psychiatric: A+Ox3, euthymic affect Results & Data Vital Signs (Past 12 Hours) Vital Signs Temp Pulse Pulse Resp BP Pulse Ox O2 Del Method 02/26/24 07:50 Nasal Cannula 02/26/24 07:43 37.0 C 60 19 121/63 96 Nasal Cannula 02/26/24 06:54 61 02/26/24 02:12 36.5 C 60 20 110/66 95 Nasal Cannula 02/25/24 22:41 36.7 C 70 16 105/67 94 Nasal Cannula 02/25/24 22:22 60 O2 Flow Rate 02/26/24 07:50 3 02/26/24 07:43 3 02/26/24 06:54 02/26/24 02:12 4 02/25/24 22:41 4 02/25/24 22:22 Laboratory Results CBC 02/26/24 Range/Units 05:37 WBC 6.60 (4.8-10.8) K/ul RBC 3.20 L (4.70-6.10) M/uL Hgb 10.2 L (14.0-18.0) g/dl Hct 30.5 L (42.0-52.0) % Plt Count 149 (130-400) K/uL Comprehensive Metabolic Panel 02/26/24 Range/Units 05:37 Sodium 139 (136-145) mmol/L Potassium 3.9 (3.5-5.1) mmol/L Chloride 106 (98-107) mmol/L Carbon Dioxide 29 (21-32) mmol/L BUN 18 (6-23) mg/dl Creatinine 1.31 (0.6-1.4) mg/dl Glucose 113 H (70-99(Fasting)) mg/dl Calcium 8.2 L (8.6-10.3) mg/dl Intake and Output 02/25/24 02/26/24 02/26/24 22:59 06:59 14:59 Intake Total 805.333 / 2167.833 1100 / 2167.833 346.667 / 346.667 Output Total 200 / 1050 200 / 1050 Balance 605.333 / 1117.833 900 / 1117.833 346.667 / 346.667 Intake: IV 805.333 / 2167.833 1100 / 2167.833 346.667 / 346.667 Piperacillin/Tazobactam 4.5 gm 100 / 200 100 / 200 100 / 100 In 100 ml @ 25 mls/hr IV Q8H [facility] Rx#:[id number] Sodium Chloride 0.9% 1,000 ml @ 705.333 / 0150.723 3534 / 1767.833 246.667 / 246.667 80 mls/hr IV .[id number] [facility] Rx#: [id number] Output: Urine Amount (Catheter) 200 / 1050 200 / 1050 Forrest/Indwelling 200 / 1050 200 / 1050 Other: Other Intake Source Patient is NPO Weight 87.2 kg Weight Measurement Method Built in [facility]
[2024-02-26] MEDS ORDERED: IPRATROPIUM BROMIDE NEB SOLN 0.02% 0.5MG/2.5ML VIAL NEB PRN (09:08)
[2024-02-26] MEDS ORDERED: LEVALBUTEROL 1.25 MG/3 ML NEB NEB PRN ×2 (09:08→13:43)
[2024-02-26] MEDS: LEVALBUTEROL 1.25 MG/3 ML NEB NEB STA (09:26)
[2024-02-26] MEDS: IPRATROPIUM BROMIDE NEB SOLN 0.02% 0.5MG/2.5ML VIAL NEB STA (09:27)
--- NOTE | 2024-02-26 11:55 | XRay Report ---
XR chest 1V portable CLINICAL HISTORY: wheezing TECHNIQUE: Single frontal radiograph of the chest was obtained. Comparison: Comparison is made to chest radiograph 03/13/2024 FINDINGS: An implanted pacemaker is seen. Spinal stimulator is seen. The cardiomediastinal silhouette is normal . Peribronchial thickening is seen. There is blunting of the costophrenic angle on the left. IMPRESSION: Peribronchial thickening is seen compatible with infectious/inflammatory airways disease or viral pne umonia. No ronald consolidation is seen. ACT 112: Negative or not required by law. Electronically signed by: Eduardo Salinas M.D. 02/26/2024 11:54 AM
[2024-02-26 16:11] LABS: Adenovirus PCR Not Detected (NotDetected); Bordetella parapertussis PCR Not Detected (NotDetected); Bordetella pertussis PCR Not Detected (NotDetected); Chlamydia pneumoniae PCR Not Detected (NotDetected); Coronavirus 229E PCR Not Detected (NotDetected); Coronavirus CoV-2 (COVID19)PCR Not Detected (NotDetected); Coronavirus HKU1 PCR Not Detected (NotDetected); Coronavirus NL63 PCR Not Detected (NotDetected); Coronavirus OC43PCR Not Detected (NotDetected); Human Metapneumovirus PCR Not Detected (NotDetected); Influenza A PCR Not Detected (NotDetected); Influenza B PCR Not Detected (NotDetected); Mycoplasma pneumoniae PCR Not Detected (NotDetected); Parainfluenza Virus 1 PCR Not Detected (NotDetected); Parainfluenza Virus 2 PCR Not Detected (NotDetected); Parainfluenza Virus 3 PCR Not Detected (NotDetected); Parainfluenza Virus 4 PCR Not Detected (NotDetected); Respiratory Syncytial VirusPCR Not Detected (NotDetected); Rhinovirus/Enterovirus PCR Not Detected (NotDetected)
--- NOTE | 2024-02-26 17:28 | Hospitalist Progress Note ---
Date of Service February 26, 2024 Assessment & Plan (1) Periprosthetic fracture around internal prosthetic right hip joint: (2) Acute pain of right hip: (3) Fall from standing: Plan Per previous hospitalist notes with addendum: Mr. Shaver is a 78 year old M with a PMH of COPD, asthma, bronchiectasis, chronic respiratory failure on 3L [place] O2, HTN, HLD, sinus node dysfunction s/p pacemaker, CAD s/p balloon angioplasty 2016, SVT, GERD, BPH, RLS, depression, chronic back pain and others listed below presented to ED after fall at home. Patient a trauma alert given fall while on DAPT. Patient was a trauma alert and admitted to PCU for close monitoring as patient on plavix Course complicated thus far due to altered mental status, likely multifactorial. Stroke alert called and imaging did not reveal stroke. #Fevers possibly secondary to fracture and hematoma presence lactate elevated this am iso AMS from opioids given symptoms for presentation, infectious work up ordered -Follow infectious work up -Continue Zosyn x 48 hours empiric -Procal ordered Reviewed CXR appears stable 02/25 Afebrile since last night Positive cough and wheezing Repeat chest x-ray: Peribronchial thickening is seen compatible with infectious/inflammatory airways disease or viral pneumonia. No elio consolidation is seen. Bio fire negative Start nebs 4 times daily, Mucinex #Acute metabolic encephalopathy patient with notable pain given fracture/call AMS after compounded medications administered, responsive to narcan Discontinue IV opioids Continue tramadol prn kpad for back/hip Schedule Tylenol 02/25 Seems to be improving overall #Traumatic Fall c/b right periprosthetic nondisplaced fracture #intramuscular hematoma in distal iliopsoas #Chronic ambulatory dysfunction -admit PCU/tele -Tramadol q4 moderate pain, reassess for severe pain for IV medication -PT/OT -Bed rest for now -VS per protocol -SCD and compression stockings -Repeat CBC in am given plavix -Ortho consulted: No surgical intervention at this time, CTM -IS #Chronic normocytic Anemia Hgb 13.2 on admission (likely element of hemoconcentration) baseline 10-11 , noted to be iron deficient, will plan for po replacement B12 160, start IM cyanocobalamin for 7 days, po upon d/c #Syncopal episodes #AVNRT #Orthostatic hypotension #HX of symptomatic bradycardia s/p PPM -Multiple admissions for the same recently -DAKOTAH hose placed for DVT but also to help with orthostasis -Home antihypertensives d/c -Continue Metoprolol Succinate -Pacemaker interrogation ordered -spoke to [employer] rep, 7 recorded events from 02/22, no events from 02/23 -Cardiology consult: is burden of AVNRT driving factor, further metoprolol dosing warranted at this time? -Encourage PO intake NO events on tele overnight 02/25 Cardiology service consulted No symptomatic dysrhythmia per pacemaker interrogation Telemetry monitoring unremarkable Monitor orthostatic vital signs Apply compression stockings #Coronary heart disease s/p unsuccessful stenting 2016 #Chronic HFpEF 2/2 ischemic cardiomyopathy #HLD -Volume status relatively dry, no signs of volume overload -Continue plavix -Continue metorpolol succinate 50daily -Continue statin #Chronic back pain s/p spinal stimulator Continue duloxetine and gabapentin #Chronic hypoxic resp failure #COPD Continue home nebs and inhaler Continue supplemental O2 Possible mild COPD exacerbation Management per above #Elevated troponin, mild iso CAD, chronic hypoxia no sign of active acs, monitor on tele #JOHN (acute kidney injury) *improving Cr 1.5 (Baseline Cr: 1.1), downtrending to 1.2 BMP in am #Hyperglycemia #Prediabetes Glucose levels elevated Hgba1c 6.6 01/2024 CTM #BPH (benign prostatic hyperplasia) Continue tamsulosin, finasteride #Hypothyroidism Continue levothyroxine TSH WNL DVT Ppx: SCDs Code status: DNR/DNI PCP: Elio Retana Admission and Anticipated Discharge Date Admission Date: February 24, 2024 Subjective Follow-up for fall, right periprosthetic fracture, etc. Seen resting in bed, not in distress, on 2 L of oxygen Oriented x 2, answering most questions appropriately States he feels somewhat better today compared to yesterday Has mildly productive cough, but no shortness of breath No fevers or chills No chest pain, palpitations, dizziness No other new symptoms Review of Systems Review of Systems: all noted and negative except for above Physical Exam Physical Exam: General- oriented x 2, not in distress, speaks in sentences with no effort or accessory muscle use Eyes- anicteric Neck- no JVD Lungs- (+) mild wheeze BL good air entry Heart- normal rate, regular rhythm; no murmurs Abdomen- normal bowel sounds, nondistended, soft, no tenderness Extremities- no pretibial edema, no calf tenderness Neuro- alert, oriented x 2; no gross focal neurologic deficits Skin- warm & dry Results & Data Results & Data Vital Signs (Past 12 Hours) Vital Signs Temp Pulse Pulse Resp BP Pulse Ox Pulse Ox 02/26/24 15:34 107 H 02/26/24 15:09 36.9 C 63 18 126/64 98 02/26/24 14:05 91 02/26/24 10:46 36.4 C L 106 H 20 162/70 H 91 02/26/24 09:27 70 18 94 02/26/24 07:50 02/26/24 07:43 37.0 C 60 19 121/63 96 02/26/24 06:54 61 O2 Del Method O2 Flow Rate O2 Flow Rate 02/26/24 15:34 02/26/24 15:09 Nasal Cannula 02/26/24 14:05 4 02/26/24 10:46 Nasal Cannula 4 02/26/24 09:27 Nasal Cannula 3 02/26/24 07:50 Nasal Cannula 3 02/26/24 07:43 Nasal Cannula 3 02/26/24 06:54 all noted and reviewed including below
[2024-02-26] MEDS: IPRATROPIUM BROMIDE NEB SOLN 0.02% 0.5MG/2.5ML VIAL NEB SCH (19:38)
[2024-02-26] MEDS: LEVALBUTEROL 1.25 MG/3 ML NEB NEB SCH (19:38)
[2024-02-26] MEDS: SODIUM CHLOR 7% 4 ML NEB NEB SCH (19:38)
[2024-02-26] MEDS: guaiFENesin 600 MG TABCR PO SCH (21:55)
[2024-02-27] MEDS: SENNA 8.6 MG TAB PO PRN (06:24)
[2024-02-27 10:01] LABS: Basophils # (auto) 0.02 K/uL (0.00-0.20); Basophils % (auto) 0.4 %; Eosinophils # (auto) 0.17 K/uL (0.00-0.50); Eosinophils % (auto) 3.5 %; Hematocrit (blood only) 33.3 % (42.0-52.0); Hemoglobin 10.8 g/dl (14.0-18.0); Lymphocytes # (auto) 0.86 K/uL (1.20-3.40); Lymphocytes % (auto) 17.5 %; Mean Corpuscular Hgb Conc 32.4 g/dL (32.0-36.0); Mean Corpuscular Volume 95.7 fL (80.0-100.0); Mean Platelet Volume 10.6 fL (9.4-12.4); Monocytes # (auto) 0.48 K/uL (0.11-0.59); Monocytes % (auto) 9.8 %; Neutrophils # (auto) 3.39 K/uL (1.40-6.50); Neutrophils % (auto) 68.8 %; Platelet Count 152 K/uL (130-400); RDW Coefficient of Variation 13.4 % (11.5-14.5); RDW Standard Deviation 47.3 fL (36.4-46.3); Red Blood Count 3.48 M/uL (4.70-6.10); White Blood Count 4.92 K/ul (4.8-10.8)
[2024-02-27 10:21] LABS: Albumin Level 3.5 gm/dl (3.4-5.0); Bilirubin,Total 0.7 mg/dl (0.2-1.0); Calcium 8.7 mg/dl (8.6-10.3); Potassium 3.9 mmol/L (3.5-5.1)
[2024-02-27 10:27] LABS: Albumin Globulin Ratio 1.3 (0.9-2); BUN Creatinine Ratio 13.9 (10-20); Creatinine Clr Calc Pharmacy 56.5 ml/min; Est GFR (African American) 65.4 ml/min; Est GFR (Non-African American) 56.4 ml/min; Globulin 2.6 gm/dl (2.5-4.0); Total Protein 6.1 gm/dl (6.0-8.3)
[2024-02-27] MEDS: DOXYCYCLINE HYCLATE 100 MG CAP PO SCH (14:20)
[2024-02-27] MEDS: predniSONE 20 MG TAB PO SCH (14:20)
--- NOTE | 2024-02-27 18:02 | Hospitalist Progress Note ---
Date of Service February 27, 2024 Assessment & Plan (1) Periprosthetic fracture around internal prosthetic right hip joint: (2) Acute pain of right hip: (3) Fall from standing: Plan Per previous hospitalist notes with addendum: Mr. Shaver is a 78 year old M with a PMH of COPD, asthma, bronchiectasis, chronic respiratory failure on 3L [place] O2, HTN, HLD, sinus node dysfunction s/p pacemaker, CAD s/p balloon angioplasty 2016, SVT, GERD, BPH, RLS, depression, chronic back pain and others listed below presented to ED after fall at home. Patient a trauma alert given fall while on DAPT. Patient was a trauma alert and admitted to PCU for close monitoring as patient on plavix Course complicated thus far due to altered mental status, likely multifactorial. Stroke alert called and imaging did not reveal stroke. #Fevers Acute bronchitis possibly secondary to fracture and hematoma presence lactate elevated this am iso AMS from opioids given symptoms for presentation, infectious work up ordered -Follow infectious work up -Continue Zosyn x 48 hours empiric -Procal ordered Reviewed CXR appears stable 02/25 Afebrile since last night Positive cough and wheezing Repeat chest x-ray: Peribronchial thickening is seen compatible with infectious/inflammatory airways disease or viral pneumonia. No elio consolidation is seen. Bio fire negative Start nebs 4 times daily, Mucinex 02/26 Afebrile since yesterday Blood cultures negative DC IV Zosyn Start doxycycline twice daily for possible bronchitis Prednisone 20 mg p.o. daily Nebs, spirometry, flutter valve #Acute metabolic encephalopathy patient with notable pain given fracture/call AMS after compounded medications administered, responsive to narcan Discontinue IV opioids Continue tramadol prn kpad for back/hip Schedule Tylenol 02/26 resolved #Traumatic Fall c/b right periprosthetic nondisplaced fracture #intramuscular hematoma in distal iliopsoas #Chronic ambulatory dysfunction -admit PCU/tele -Tramadol q4 moderate pain, reassess for severe pain for IV medication -PT/OT -Bed rest for now -VS per protocol -SCD and compression stockings -Ortho consulted: No surgical intervention at this time, CTM -IS Pain well-controlled Hemoglobin stable PT OT evaluation Will likely need to transition to acute rehab #Chronic normocytic Anemia Hgb 13.2 on admission (likely element of hemoconcentration) baseline 10-11 , noted to be iron deficient, will plan for po replacement B12 160, start IM cyanocobalamin for 7 days, po upon d/c #Syncopal episodes #AVNRT #Orthostatic hypotension #HX of symptomatic bradycardia s/p PPM -Multiple admissions for the same recently -DAKOTAH hose placed for DVT but also to help with orthostasis -Home antihypertensives d/c -Continue Metoprolol Succinate -Pacemaker interrogation ordered -spoke to [employer] rep, 7 recorded events from 02/22, no events from 02/23 -Cardiology consult: is burden of AVNRT driving factor, further metoprolol dosing warranted at this time? -Encourage PO intake NO events on tele overnight 02/26 Cardiology service consulted No symptomatic dysrhythmia per pacemaker interrogation Telemetry monitoring unremarkable Monitor orthostatic vital signs Apply compression stockings #Coronary heart disease s/p unsuccessful stenting 2016 #Chronic HFpEF 2/2 ischemic cardiomyopathy #HLD -Volume status relatively dry, no signs of volume overload -Continue plavix -Continue metorpolol succinate 50daily -Continue statin #Chronic back pain s/p spinal stimulator Continue duloxetine and gabapentin #Chronic hypoxic resp failure #COPD Continue home nebs and inhaler Continue supplemental O2 Possible mild COPD exacerbation Management per above #Elevated troponin, mild iso CAD, chronic hypoxia no sign of active acs, monitor on tele #JOHN (acute kidney injury) *improving Cr 1.5 (Baseline Cr: 1.1), downtrending to 1.2 Creatinine stable #Hyperglycemia #Prediabetes Glucose levels elevated Hgba1c 6.6 01/2024 CTM #BPH (benign prostatic hyperplasia) Continue tamsulosin, finasteride #Hypothyroidism Continue levothyroxine TSH WNL DVT Ppx: SCDs Code status: DNR/DNI PCP: Elio Retana Admission and Anticipated Discharge Date Admission Date: February 24, 2024 Subjective Follow-up for hip fracture, etc. Seen resting in bed, comfortable, not in distress, oriented x 3 Answering questions appropriately States he feels improved compared to yesterday Still having some cough, productive yellow/brown sputum Breathing is starting to improve No chest pain, palpitations, dizziness, nausea vomiting No other new symptoms Review of Systems Review of Systems: all noted and negative except for above Physical Exam Physical Exam: General- oriented x 3, not in distress, speaks in sentences with no effort or accessory muscle use Eyes- anicteric Neck- no JVD Lungs- Positive rhonchi/crackles bilaterally, no wheezing next Heart- normal rate, regular rhythm; no murmurs Abdomen- normal bowel sounds, nondistended, soft, no tenderness Extremities- no pretibial edema, no calf tenderness Neuro- alert, oriented x 3; no gross focal neurologic deficits Skin- warm & dry Results & Data Results & Data Vital Signs (Past 12 Hours) Vital Signs Temp Pulse Pulse Resp BP Pulse Ox O2 Del Method 02/27/24 15:04 60 02/27/24 14:52 36.8 C 60 107/53 L 90 Room Air 02/27/24 12:13 68 18 95 Nasal Cannula 02/27/24 11:24 36.2 C L 62 18 134/50 L 99 Room Air 02/27/24 08:00 Nasal Cannula 02/27/24 07:26 60 02/27/24 07:23 36.3 C L 65 18 161/74 H 100 Nebulizer 02/27/24 07:03 60 18 98 Nasal Cannula O2 Flow Rate 02/27/24 15:04 02/27/24 14:52 02/27/24 12:13 3 02/27/24 11:24 02/27/24 08:00 3 02/27/24 07:26 02/27/24 07:23 02/27/24 07:03 3 all noted and reviewed including below
[2024-02-28 06:11] LABS: Basophils # (auto) 0.01 K/uL (0.00-0.20); Basophils % (auto) 0.2 %; Hematocrit (blood only) 29.8 % (42.0-52.0); Hemoglobin 10.3 g/dl (14.0-18.0); Immature Granulocytes # (auto) 0.02 K/uL (0.01-0.20); Immature Granulocytes % (auto) 0.3 %; Lymphocytes # (auto) 0.58 K/uL (1.20-3.40); Lymphocytes % (auto) 9.7 %; Mean Corpuscular Hemoglobin 32.5 pg (25.0-34.0); Mean Corpuscular Hgb Conc 34.6 g/dL (32.0-36.0); Mean Platelet Volume 10.9 fL (9.4-12.4); Monocytes # (auto) 0.39 K/uL (0.11-0.59); Monocytes % (auto) 6.5 %; Neutrophils % (auto) 83.3 %; Platelet Count 185 K/uL (130-400); RDW Coefficient of Variation 13.3 % (11.5-14.5); RDW Standard Deviation 46.2 fL (36.4-46.3); Red Blood Count 3.17 M/uL (4.70-6.10)
[2024-02-28 06:34] LABS: Albumin Globulin Ratio 1.3 (0.9-2); Albumin Level 3.5 gm/dl (3.4-5.0); BUN Creatinine Ratio 14.8 (10-20); Bilirubin,Total 0.4 mg/dl (0.2-1.0); Calcium 8.7 mg/dl (8.6-10.3); Creatinine Clr Calc Pharmacy 56.7 ml/min; Est GFR (African American) 65.4 ml/min; Est GFR (Non-African American) 56.4 ml/min; Globulin 2.6 gm/dl (2.5-4.0); Potassium 4.6 mmol/L (3.5-5.1); Total Protein 6.1 gm/dl (6.0-8.3)
[2024-02-28] MEDS: predniSONE 20 MG TAB PO STA (18:04)
--- NOTE | 2024-02-28 18:05 | Hospitalist Progress Note ---
Date of Service February 28, 2024 Assessment & Plan (1) Periprosthetic fracture around internal prosthetic right hip joint: (2) Acute pain of right hip: (3) Fall from standing: Plan Per previous hospitalist notes with addendum: Mr. Shaver is a 78 year old M with a PMH of COPD, asthma, bronchiectasis, chronic respiratory failure on 3L [place] O2, HTN, HLD, sinus node dysfunction s/p pacemaker, CAD s/p balloon angioplasty 2016, SVT, GERD, BPH, RLS, depression, chronic back pain and others listed below presented to ED after fall at home. Patient a trauma alert given fall while on DAPT. Patient was a trauma alert and admitted to PCU for close monitoring as patient on plavix Course complicated thus far due to altered mental status, likely multifactorial. Stroke alert called and imaging did not reveal stroke. #Traumatic Fall c/b right periprosthetic nondisplaced fracture #intramuscular hematoma in distal iliopsoas #Chronic ambulatory dysfunction -admit PCU/tele -Tramadol q4 moderate pain, reassess for severe pain for IV medication -PT/OT -Bed rest for now -VS per protocol -SCD and compression stockings -Ortho consulted: No surgical intervention at this time, CTM -IS Pain well-controlled Hemoglobin stable PT OT evaluation Will likely need to transition to acute rehab 02/27 Pain well-controlled Globin stable Continue PT and OT Transition to [facility] when medically stable #Syncopal episodes #AVNRT #Orthostatic hypotension #HX of symptomatic bradycardia s/p PPM -Multiple admissions for the same recently -DAKOTAH hose placed for DVT but also to help with orthostasis -Home antihypertensives d/c -Continue Metoprolol Succinate -Pacemaker interrogation ordered -spoke to [employer] rep, 7 recorded events from 02/22, no events from 02/23 -Cardiology consult: is burden of AVNRT driving factor, further metoprolol dosing warranted at this time? -Encourage PO intake NO events on tele overnight 02/27 Cardiology service consulted No symptomatic dysrhythmia per pacemaker interrogation Telemetry monitoring unremarkable Monitor orthostatic vital signs Apply compression stockings #Fevers Acute bronchitis possibly secondary to fracture and hematoma presence lactate elevated this am iso AMS from opioids given symptoms for presentation, infectious work up ordered -Follow infectious work up -Continue Zosyn x 48 hours empiric -Procal ordered Reviewed CXR appears stable 02/25 Afebrile since last night Positive cough and wheezing Repeat chest x-ray: Peribronchial thickening is seen compatible with infectious/inflammatory airways disease or viral pneumonia. No elio consolidation is seen. Bio fire negative Start nebs 4 times daily, Mucinex 02/26 Afebrile since yesterday Blood cultures negative DC IV Zosyn Start doxycycline twice daily for possible bronchitis Prednisone 20 mg p.o. daily Nebs, spirometry, flutter valve 02/27 Remains afebrile Increase prednisone to 40 mg p.o. daily Continue doxycycline twice daily day #2 Continue nebs, spirometry, flutter valve #Acute metabolic encephalopathy patient with notable pain given fracture/call AMS after compounded medications administered, responsive to narcan Discontinue IV opioids Continue tramadol prn kpad for back/hip Schedule Tylenol 02/27 resolved #Chronic normocytic Anemia Hgb 13.2 on admission (likely element of hemoconcentration) baseline 10-11 , noted to be iron deficient, will plan for po replacement B12 160, start IM cyanocobalamin for 7 days, po upon d/c Coronary heart disease s/p unsuccessful stenting 2016 Chronic HFpEF 2/2 ischemic cardiomyopathy HLD -Volume status relatively dry, no signs of volume overload -Continue plavix -Continue metoprolol succinate 50daily -Continue statin Chronic back pain s/p spinal stimulator Continue duloxetine and gabapentin Chronic hypoxic resp failure COPD Continue home nebs and inhaler Continue supplemental O2 Possible mild COPD exacerbationSecondary to acute bronchitis Management per above Elevated troponin, mild iso CAD, chronic hypoxia no sign of active acs, monitor on tele JOHN (acute kidney injury) *improving Cr 1.5 (Baseline Cr: 1.1), downtrending to 1.2 Creatinine stable #Hyperglycemia #Prediabetes Glucose levels elevated Hgba1c 6.6 01/2024 CTM #BPH (benign prostatic hyperplasia) Continue tamsulosin, finasteride #Hypothyroidism Continue levothyroxine TSH WNL DVT Ppx: SCDsOnly for now in light of intramuscular hematoma Code status: DNR/DNI PCP: Elio Retana Disposition Anticipate transition to [facility] medically stable, Hopefully in 1 to 2 days Admission and Anticipated Discharge Date Admission Date: February 24, 2024 Subjective Follow-up for right hip periprosthetic fracture, etc. Seen resting in bed, comfortable, not in distress In good spirits States he is still coughing but seems to be gradually improving, breathing also somewhat improving Having some hip pain, pain medications helping Answering all questions appropriately No other new symptoms Review of Systems Review of Systems: all noted and negative except for above Physical Exam Physical Exam: General- oriented x 3, not in distress, speaks in sentences with no effort or accessory muscle use Eyes- anicteric Neck- no JVD Lungs- Positive scattered rhonchi bilaterally, improved compared to yesterday Good air entry bilaterally Heart- normal rate, regular rhythm; no murmurs Abdomen- normal bowel sounds, nondistended, soft, no tenderness Extremities- no pretibial edema, no calf tenderness Neuro- alert, oriented x 3; no gross focal neurologic deficits Skin- warm & dry Results & Data Results & Data Vital Signs (Past 12 Hours) Vital Signs Temp Pulse Pulse Resp BP Pulse Ox O2 Del Method 02/28/24 15:24 37.4 C 60 16 139/75 95 Room Air 02/28/24 15:23 64 02/28/24 12:53 77 17 94 Room Air 02/28/24 11:16 36.7 C 61 18 127/62 93 Nasal Cannula 02/28/24 08:30 Nasal Cannula 02/28/24 07:17 67 18 152/81 H 97 Nasal Cannula 02/28/24 06:54 61 O2 Flow Rate 02/28/24 15:24 02/28/24 15:23 02/28/24 12:53 02/28/24 11:16 2 02/28/24 08:30 02/28/24 07:17 3 02/28/24 06:54 all noted and reviewed including below
[2024-02-28] MEDS: IPRATROPIUM BROMIDE NEB SOLN 0.02% 0.5MG/2.5ML VIAL NEB SCH (19:11)
[2024-02-28] MEDS: LEVALBUTEROL 1.25 MG/3 ML NEB NEB SCH (19:11)
[2024-02-29] MEDS: predniSONE 20 MG TAB PO SCH (08:57)
--- NOTE | 2024-02-29 13:24 | Hospitalist Progress Note ---
Date of Service February 29, 2024 Assessment & Plan (1) Periprosthetic fracture around internal prosthetic right hip joint: (2) Acute pain of right hip: (3) Fall from standing: Plan Per previous hospitalist notes with addendum: Mr. Shaver is a 78 year old M with a PMH of COPD, asthma, bronchiectasis, chronic respiratory failure on 3L [place] O2, HTN, HLD, sinus node dysfunction s/p pacemaker, CAD s/p balloon angioplasty 2016, SVT, GERD, BPH, RLS, depression, chronic back pain and others listed below presented to ED after fall at home. Patient a trauma alert given fall while on DAPT. Patient was a trauma alert and admitted to PCU for close monitoring as patient on plavix Course complicated thus far due to altered mental status, likely multifactorial. Stroke alert called and imaging did not reveal stroke. #Traumatic Fall c/b right periprosthetic nondisplaced fracture #intramuscular hematoma in distal iliopsoas #Chronic ambulatory dysfunction -admit PCU/tele -Tramadol q4 moderate pain, reassess for severe pain for IV medication -PT/OT -Bed rest for now -VS per protocol -SCD and compression stockings -Ortho consulted: No surgical intervention at this time, CTM -IS Pain well-controlled Hemoglobin stable PT OT evaluation Will likely need to transition to acute rehab 02/27 Pain well-controlled Globin stable Continue PT and OT Transition to [facility] when medically stable 02/28 lidoderm patch, Ice pack BID #Syncopal episodes #AVNRT #Orthostatic hypotension #HX of symptomatic bradycardia s/p PPM -Multiple admissions for the same recently -DAKOTAH hose placed for DVT but also to help with orthostasis -Home antihypertensives d/c -Continue Metoprolol Succinate -Pacemaker interrogation ordered -spoke to [employer] rep, 7 recorded events from 02/22, no events from 02/23 -Cardiology consult: is burden of AVNRT driving factor, further metoprolol dosing warranted at this time? -Encourage PO intake NO events on tele overnight 02/27 Cardiology service consulted No symptomatic dysrhythmia per pacemaker interrogation Telemetry monitoring unremarkable Monitor orthostatic vital signs Apply compression stockings #Fevers Acute bronchitis possibly secondary to fracture and hematoma presence lactate elevated this am iso AMS from opioids given symptoms for presentation, infectious work up ordered -Follow infectious work up -Continue Zosyn x 48 hours empiric -Procal ordered Reviewed CXR appears stable 02/25 Afebrile since last night Positive cough and wheezing Repeat chest x-ray: Peribronchial thickening is seen compatible with infectious/inflammatory airways disease or viral pneumonia. No elio consolidation is seen. Bio fire negative Start nebs 4 times daily, Mucinex 02/26 Afebrile since yesterday Blood cultures negative DC IV Zosyn Start doxycycline twice daily for possible bronchitis Prednisone 20 mg p.o. daily Nebs, spirometry, flutter valve 02/27 Remains afebrile Increase prednisone to 40 mg p.o. daily Continue doxycycline twice daily day #2 Continue nebs, spirometry, flutter valve 02/28 continue Prednisone 40mg po daily #Acute metabolic encephalopathy patient with notable pain given fracture/call AMS after compounded medications administered, responsive to narcan Discontinue IV opioids Continue tramadol prn kpad for back/hip Schedule Tylenol resolved #Chronic normocytic Anemia Hgb 13.2 on admission (likely element of hemoconcentration) baseline 10-11 , noted to be iron deficient, will plan for po replacement B12 160, start IM cyanocobalamin for 7 days, po upon d/c Coronary heart disease s/p unsuccessful stenting 2016 Chronic HFpEF 2/2 ischemic cardiomyopathy HLD -Volume status relatively dry, no signs of volume overload -Continue plavix -Continue metoprolol succinate 50daily -Continue statin Chronic back pain s/p spinal stimulator Continue duloxetine and gabapentin Chronic hypoxic resp failure COPD Continue home nebs and inhaler Continue supplemental O2 Possible mild COPD exacerbation Secondary to acute bronchitis Management per above Elevated troponin, mild iso CAD, chronic hypoxia no sign of active acs, monitor on tele JOHN (acute kidney injury) *improving Cr 1.5 (Baseline Cr: 1.1), downtrending to 1.2 Creatinine stable #Hyperglycemia #Prediabetes Glucose levels elevated Hgba1c 6.6 01/2024 CTM #BPH (benign prostatic hyperplasia) Continue tamsulosin, finasteride #Hypothyroidism Continue levothyroxine TSH WNL DVT Ppx: SCDsOnly for now in light of intramuscular hematoma Code status: DNR/DNI PCP: Elio Retana Disposition Antic[facility]ate [facility] medically [facility], Hopefully tomorrow Admission and Anticipated Discharge Date Admission Date: February 24, 2024 Subjective ff up for hip fracture, etc seen resting in bed, comfortable states he feels fine overall breathing is gradually improving, still having dry cough moderate pain on the right hip no other symptoms Review of Systems Review of Systems: all noted and negative except for above Physical Exam Physical Exam: General- oriented x 3, not in distress, speaks in sentences with no effort or accessory muscle use Eyes- anicteric Neck- no JVD Lungs- (+) faint rhonchi BL no wheezing Heart- normal rate, regular rhythm; no murmurs Abdomen- normal bowel sounds, nondistended, soft, nontender Extremities- no pretibial edema, no calf tenderness Neuro- alert, oriented x 3; no gross focal neurologic deficits Skin- warm & dry Results & Data Results & Data Vital Signs (Past 12 Hours) Vital Signs Temp Pulse Resp BP Pulse Ox O2 Del Method O2 Flow Rate 02/29/24 11:29 36.5 C 62 18 159/70 H 90 Room Air 02/29/24 08:00 Nasal Cannula 2 02/29/24 07:33 64 18 92 Nasal Cannula 2 02/29/24 07:07 36.3 C L 65 16 161/83 H 92 Nasal Cannula 2 02/29/24 04:57 36.4 C L 107 H 17 150/90 H 95 Nasal Cannula 2 all noted and reviewed including below
[2024-02-29] MEDS: LIDOCAINE 5% 1 PATCH TD SCH (14:14)
[2024-02-29] MEDS: BENZONATATE 100 MG CAPSULE PO PRN (14:17)
[2024-03-01] MEDS: amLODIPine BESYLATE 5 MG TAB PO SCH (09:16)
[2024-03-01] MEDS: LACTULOSE SYRUP 20 GM/30 ML UDC PO ONE (13:08)
--- NOTE | 2024-03-01 17:33 | Hospitalist Progress Note ---
Date of Service March 01, 2024 Assessment & Plan (1) Periprosthetic fracture around internal prosthetic right hip joint: (2) Acute pain of right hip: (3) Fall from standing: Plan Per previous hospitalist notes with addendum: Mr. Shaver is a 78 year old M with a PMH of COPD, asthma, bronchiectasis, chronic respiratory failure on 3L NC O2, HTN, HLD, sinus node dysfunction s/p pacemaker, CAD s/p balloon angioplasty 2016, SVT, GERD, BPH, RLS, depression, chronic back pain and others listed below presented to ED after fall at home. Patient a trauma alert given fall while on DAPT. Patient was a trauma alert and admitted to PCU for close monitoring as patient on plavix Course complicated thus far due to altered mental status, likely multifactorial. Stroke alert called and imaging did not reveal stroke. #Traumatic Fall c/b right periprosthetic nondisplaced fracture #intramuscular hematoma in distal iliopsoas #Chronic ambulatory dysfunction -admit PCU/tele -Tramadol q4 moderate pain, reassess for severe pain for IV medication -PT/OT -Bed rest for now -VS per protocol -SCD and compression stockings -Ortho consulted: No surgical intervention at this time, CTM -IS Pain well-controlled Hemoglobin stable PT OT evaluation Will likely need to transition to acute rehab 02/27 Pain well-controlled Globin stable Continue PT and OT Transition to MDI when medically stable 02/28 lidoderm patch, Ice pack BID 03/01 Pain well-controlled Anticipate discharge to subacute rehab tomorrow #Syncopal episodes #AVNRT #Orthostatic hypotension #HX of symptomatic bradycardia s/p PPM -Multiple admissions for the same recently -DAKOTAH hose placed for DVT but also to help with orthostasis -Home antihypertensives d/c -Continue Metoprolol Succinate -Pacemaker interrogation ordered -spoke to [employer] rep, 7 recorded events from 02/22, no events from 02/23 -Cardiology consult: is burden of AVNRT driving factor, further metoprolol dosing warranted at this time? -Encourage PO intake NO events on tele overnight 02/27 Cardiology service consulted No symptomatic dysrhythmia per pacemaker interrogation Telemetry monitoring unremarkable Monitor orthostatic vital signs Apply compression stockings 03/01 Stable, no recurrence #Fevers Acute bronchitis possibly secondary to fracture and hematoma presence lactate elevated this am iso AMS from opioids given symptoms for presentation, infectious work up ordered -Follow infectious work up -Continue Zosyn x 48 hours empiric -Procal ordered Reviewed CXR appears stable 02/25 Afebrile since last night Positive cough and wheezing Repeat chest x-ray: Peribronchial thickening is seen compatible with infectious/inflammatory airways disease or viral pneumonia. No elio consolidation is seen. Bio fire negative Start nebs 4 times daily, Mucinex 02/26 Afebrile since yesterday Blood cultures negative DC IV Zosyn Start doxycycline twice daily for possible bronchitis Prednisone 20 mg p.o. daily Nebs, spirometry, flutter valve 02/27 Remains afebrile Increase prednisone to 40 mg p.o. daily Continue doxycycline twice daily day #2 Continue nebs, spirometry, flutter valve 02/28 continue Prednisone 40mg po daily 03/01 Transition to prednisone 20 mg p.o. daily Wheezing and rhonchi resolved #Acute metabolic encephalopathy patient with notable pain given fracture/call AMS after compounded medications administered, responsive to narcan Discontinue IV opioids Continue tramadol prn kpad for back/hip Schedule Tylenol 03/01 resolved Hypertension BP elevated Amlodipine started As needed hydralazine #Chronic normocytic Anemia Hgb 13.2 on admission (likely element of hemoconcentration) baseline 10-11 , noted to be iron deficient, will plan for po replacement B12 160, start IM cyanocobalamin for 7 days, po upon d/c Coronary heart disease s/p unsuccessful stenting 2016 Chronic HFpEF 2/2 ischemic cardiomyopathy HLD -Volume status relatively dry, no signs of volume overload -Continue plavix -Continue metoprolol succinate 50daily -Continue statin Chronic back pain s/p spinal stimulator Continue duloxetine and gabapentin Chronic hypoxic resp failure COPD Continue home nebs and inhaler Continue supplemental O2 Possible mild COPD exacerbation Secondary to acute bronchitis Management per above Elevated troponin, mild iso CAD, chronic hypoxia no sign of active acs, monitor on tele JOHN (acute kidney injury) *improving Cr 1.5 (Baseline Cr: 1.1), downtrending to 1.2 Creatinine stable #Hyperglycemia #Prediabetes Glucose levels elevated Hgba1c 6.6 01/2024 CTM #BPH (benign prostatic hyperplasia) Continue tamsulosin, finasteride #Hypothyroidism Continue levothyroxine TSH WNL DVT Ppx: SCDsOnly for now in light of intramuscular hematoma Code status: DNR/DNI PCP: Elio Retana Disposition Anticipate transition to [facility] medically stable, Hopefully tomorrow Admission and Anticipated Discharge Date Admission Date: February 24, 2024 Subjective Follow-up for follow-up for hip fracture, etc. Seen resting in bed, in good spirits, comfortable States he continues to feel improved overall Breathing is improving, still having some intermittent cough No chest pain He pain well-controlled No other new symptom Review of Systems Review of Systems: all noted and negative except for above Physical Exam Physical Exam: General- oriented x 3, not in distress, speaks in sentences with no effort or accessory muscle use Eyes- anicteric Neck- no JVD Lungs- clear breath sounds bilaterally, no rales/wheezes Heart- normal rate, regular rhythm; no murmurs Abdomen- normal bowel sounds, nondistended, soft, nontender Extremities- no pretibial edema, no calf tenderness Neuro- alert, oriented x 3; no gross focal neurologic deficits Skin- warm & dry Results & Data Results & Data Vital Signs (Past 12 Hours) Vital Signs Temp Pulse Pulse Resp BP Pulse Ox O2 Del Method 03/01/24 15:51 36.4 C L 66 18 166/79 H 91 Room Air 03/01/24 14:00 60 03/01/24 11:42 36.3 C L 64 20 184/82 H 93 Room Air 03/01/24 07:49 36.7 C 65 18 187/52 H 94 Room Air 03/01/24 07:15 Room Air 03/01/24 07:10 68 16 91 Room Air O2 Flow Rate 03/01/24 15:51 03/01/24 14:00 03/01/24 11:42 03/01/24 07:49 03/01/24 07:15 2 03/01/24 07:10 all noted and reviewed including below
[2024-03-02] MEDS: hydrALAZINE HCL 20 MG/ML VIAL IV PRN (03:29)
--- NOTE | 2024-03-02 11:18 | Discharge Summary ---
Discharge Summary Date of Service March 02, 2024 Principal Dx & Hospital Course #1 = Principal Diagnosis (1) Periprosthetic fracture around internal prosthetic right hip joint: (2) Acute pain of right hip: (3) Fall from standing: Plan Per previous hospitalist notes with addendum: Mr. Shaver is a 78 year old M with a PMH of COPD, asthma, bronchiectasis, chronic respiratory failure on 3L NC O2, HTN, HLD, sinus node dysfunction s/p pacemaker, CAD s/p balloon angioplasty 2017, SVT, GERD, BPH, RLS, depression, chronic back pain and others listed below presented to ED after fall at home. Patient a trauma alert given fall while on DAPT. Patient was a trauma alert and admitted to PCU for close monitoring as patient on plavix Course complicated thus far due to altered mental status, likely multifactorial. Stroke alert called and imaging did not reveal stroke. #Traumatic Fall c/b right periprosthetic nondisplaced fracture #intramuscular hematoma in distal iliopsoas #Chronic ambulatory dysfunction -Ortho consulted: No surgical intervention at this time, CTM -IS Pain well-controlled Hemoglobin stable PT OT evaluation: transition to acute rehab lidoderm patch, Ice pack BID Follow up with Orthopedic [facility] Dr. Ismael Yip in 1-2 weeks #Syncopal episodes #AVNRT #Orthostatic hypotension #HX of symptomatic bradycardia s/p PPM -Multiple admissions for the same recently -DAKOTAH hose placed for DVT but also to help with orthostasis -Continue Metoprolol Succinate -Pacemaker interrogation ordered -spoke to [employer] rep, 7 recorded events from 02/22, no events from 02/23 -Cardiology consult: is burden of AVNRT driving factor, further metoprolol dosing warranted at this time? Cardiology service consulted No symptomatic dysrhythmia per pacemaker interrogation Telemetry monitoring unremarkable Monitor orthostatic vital signs Apply compression stockings #Fevers Acute bronchitis Positive cough and wheezing Repeat chest x-ray: Peribronchial thickening is seen compatible with infectious/inflammatory airways disease or viral pneumonia. No ronald consolidation is seen. Bio fire negative nebs 4 times daily, Mucinex Doxycycline BID Prednisone taper fever resolved, wheezing resolved 2 more Days of doxycycline to complete 1 week course As needed nebs #Acute metabolic encephalopathy Likely secondary to narcotics Resolved CT angio head and neck: 50% luminal narrowing at the origin of the right cervical internal carotid artery. follow up as outpatient Hypertension BP elevated Amlodipine 5 mg p.o. daily As needed hydralazine Monitor closely #Chronic normocytic Anemia Hgb 13.2 on admission (likely element of hemoconcentration) baseline 10-11 , noted to be iron deficient, will plan for po replacement B12 160, started IM cyanocobalamin for 7 days Discharged on oral vitamin B12 Monitor hemoglobin vitamin B12 as an outpatient closely Coronary heart disease s/p unsuccessful stenting 2016 Chronic HFpEF 2/2 ischemic cardiomyopathy HLD -Volume status relatively dry, no signs of volume overload -Continue plavix -Continue metoprolol succinate 50daily -Continue statin Chronic back pain s/p spinal stimulator Continue duloxetine and gabapentin Chronic hypoxic resp failure COPD Continue home nebs and inhaler Continue supplemental O2 Possible mild COPD exacerbation Secondary to acute bronchitis Management per above Elevated troponin, mild iso CAD, chronic hypoxia no sign of active acs, monitor on tele JOHN (acute kidney injury) *improving Cr 1.5 (Baseline Cr: 1.1), downtrending to 1.2 Creatinine stable #Hyperglycemia #Prediabetes Glucose levels elevated Hgba1c 6.6 01/2024 #BPH (benign prostatic hyperplasia) Continue tamsulosin, finasteride #Hypothyroidism Continue levothyroxine TSH WNL DVT Ppx: SCDsOnly for now in light of intramuscular hematoma Code status: DNR/DNI PCP: Ronald Retana Disposition Transition to subacute rehab Follow-up with PCP 1 week postdischarge from subacute rehab Follow-up with orthopedic service Dr. Abdulaziz Yip in 1 to 2 weeks Notes For Next Care Provider Medication Changes From Visit Please refer to medical reconciliation section Admission HPI Per Admitting Provider Mr. Shaver is a 78 year old M with a PMH of COPD, asthma, bronchiectasis, chronic respiratory failure on 3L NC O2, HTN, HLD, sinus node dysfunction s/p pacemaker, CAD s/p balloon angioplasty 2017, SVT, GERD, BPH, RLS, depression, chronic back pain and others listed below presented to ED after fall at home. Patient a trauma alert given fall while on DAPT. Right Hip imaging revealed periprosthetic nondisplaced fracture. Patient states since discharge, he has continued to feel light headed and dizzy. 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 He states the symptoms he experienced are the same "ongoing" concerns. Patient has not yet established with EP for AVNRT which has been thought to possibly contribute to symptoms. Recently hospitalized from 12/17-12/22 in setting of sepsis 2/2 multifocal PNA, COPD exacerbation as well as pacemaker mediated tachycardia. During previous admission, was evaluated by cardiology and pacemaker was adjusted on 12/22 for pacemaker mediated tachycardia. Metoprolol succinate increased to 50mg BID. Echocardiogram performed 12/19/2023 revealed moderate concentric left ventricular perjury, no regional wall motion motives, LVEF normal at 60-65%, mild aortic valve sclerosis without stenosis, grade 1 diastolic dysfunction, pulmonary artery systolic pressure estimated be 35 mmHg which is the upper limit of normal. Patient with admission on 01/21-01/26 for syncopal episode. Patient's blood pressure medications discontinued, as well as reduced tamsulosin. There was concern for need for AVNRT ablation given symptoms. Patient received Narcan due to solmnolence from pain management prehospital. Patient AO3, however, still a bit lethargic and seemingly hazy about events leading up to presentation. In the ED, vitals were notable for BP of 110-140s, HR of 60s, and O2 sat of *95 on home O2 3L EKG reviewed and stable, no signs of ischemia, pacer spike noted ED interventions: Narcan, Fentanyl, Morphine, 500cc Bolus Consultants: Ortho--No surgical intervention at this time Patient to be admitted to PCU (Trauma alert) for further evaluation and management of traumatic periprosthetic fracture after fall. Admission Exam Per Admitting Provider GENERAL APPEARANCE: AxOx3, lethargic but pleasant gentleman, poor historian however oriented HEENT: NC, AT. MMM. EOMI, clear conjunctiva, oropharynx clear poor dentition NECK: Supple without lymphadenopathy. No stiffness or restricted ROM. HEART: Normal rate and regular rhythm, normal S1/S1, no m/r/g LUNGS: CTAB, diminished 2/2 effort 3LNC ABDOMEN: Soft, nontender, nondistended with good bowel sounds heard. EXTREMITIES: Without cyanosis, clubbing or edema. pulses intact, motor intact NEUROLOGICAL: Grossly nonfocal. Alert and oriented, moving all 4 extremities. CN not formally tested but appear grossly intact. Skin: Warm and dry without any rash. Discharge Exam General- oriented x 3, not in distress, speaks in sentences with no effort or accessory muscle use Eyes- anicteric Neck- no JVD Lungs- clear breath sounds bilaterally, no rales/wheezes Heart- normal rate, regular rhythm; no murmurs Abdomen- normal bowel sounds, nondistended, soft, nontender Extremities- no pretibial edema, no calf tenderness Neuro- alert, oriented x 3; no gross focal neurologic deficits Skin- warm & dry Updated Medication List Medication Instructions Recorded Confirmed Type acetaminophen 500 mg tablet 1,000 mg PO TID PRN Pain 03/06/23 02/24/24 History (Tylenol Extra Strength) amitriptyline 25 mg tablet 50 mg PO HS 03/06/23 02/24/24 History atorvastatin 80 mg tablet 80 mg PO DAILY 03/06/23 02/24/24 History clopidogrel 75 mg tablet 75 mg PO QAM 03/06/23 02/24/24 History duloxetine 30 mg capsule,delayed 30 mg PO QPM 03/06/23 02/24/24 History release duloxetine 60 mg capsule,delayed 60 mg PO QPM 03/06/23 02/24/24 History release finasteride 5 mg tablet 5 mg PO DAILY 03/06/23 02/24/24 History gabapentin 300 mg capsule 300 mg PO TID 03/06/23 02/24/24 History levothyroxine 75 mcg tablet 75 mcg PO DAILYBB 03/06/23 02/24/24 History nitroglycerin 0.4 mg sublingual 0.4 mg sublingual DIRECTED PRN 03/06/23 02/24/24 History tablet Chest Pain pantoprazole 40 mg tablet,delayed 40 mg PO DAILY 03/06/23 02/24/24 History release umeclidinium 62.5 mcg-vilanterol 1 inh inhalation DAILY 01/21/24 02/24/24 History 25 mcg/actuation powdr for inhalation (Anoro Ellipta) metoprolol succinate 25 mg 50 mg (2 x 25 mg) PO QAM #60 tabs 01/27/24 02/24/24 Rx tablet,extended release 24 hr tamsulosin 0.4 mg capsule 0.4 mg PO QAM #30 caps 01/27/24 02/24/24 Rx amlodipine 5 mg tablet (Norvasc) 5 mg PO QAM 30 days #30 tabs 03/02/24 Rx doxycycline hyclate 100 mg capsule 100 mg PO BID 2 days #4 caps 03/02/24 Rx guaifenesin 600 mg tablet, 600 mg PO Q12 3 days #6 tabs 03/02/24 Rx extended release 12 hr (Mucinex) ipratropium 0.5 mg-albuterol 3 mg 3 ml inhalation Q6H PRN Shortness 03/02/24 Rx (2.5 mg base)/3 mL nebulization Of Breath #90 mL soln lidocaine 5 % topical patch 1 patch transdermal QAM 10 days 03/02/24 Rx #15 ea mecobalamin (vitamin B12) 1,000 1,000 mcg PO DAILY #30 tabs 03/02/24 Rx mcg chewable tablet (B12 Active) Hospital Stay Data Consultations 02/24/24 17:43 Consult Orthopedic Surgery Routine 02/24/24 18:02 ED Decision to Admit Stat 02/24/24 21:48 Consult Cardiology Routine Diagnostic Imagining Performed Laboratory Results WBC 6.00 K/ul (4.8-10.8) 02/28/24 05:37 RBC 3.17 M/uL (4.70-6.10) L 02/28/24 05:37 Hgb 10.3 g/dl (14.0-18.0) L 02/28/24 05:37 POC Hgb 11.9 g/dl (14.0-18.0) L 02/24/24 15:38 Hct 29.8 % (42.0-52.0) L 02/28/24 05:37 POC Hct 35 % (42-52) L 02/24/24 15:38 MCV 94.0 fL (80.0-100.0) 02/28/24 05:37 MCH 32.5 pg (25.0-34.0) 02/28/24 05:37 MCHC 34.6 g/dL (32.0-36.0) 02/28/24 05:37 RDW Std Deviation 46.2 fL (36.4-46.3) 02/28/24 05:37 RDW Coeff of Jarrett 13.3 % (11.5-14.5) 02/28/24 05:37 Plt Count 185 K/uL (130-400) 02/28/24 05:37 MPV 10.9 fL (9.4-12.4) 02/28/24 05:37 Immature Gran % (Auto) 0.3 % 02/28/24 05:37 Neut % (Auto) 83.3 % 02/28/24 05:37 Lymph % (Auto) 9.7 % 02/28/24 05:37 [place] % (Auto) 6.5 % 02/28/24 05:37 Eos % (Auto) 0.0 % 02/28/24 05:37 Baso % (Auto) 0.2 % 02/28/24 05:37 Neut # (Auto) 5.00 K/uL (1.40-6.50) 02/28/24 05:37 Lymph # (Auto) 0.58 K/uL (1.20-3.40) L 02/28/24 05:37 [place] # (Auto) 0.39 K/uL (0.11-0.59) 02/28/24 05:37 Eos # (Auto) 0.00 K/uL (0.00-0.50) 02/28/24 05:37 Baso # (Auto) 0.01 K/uL (0.00-0.20) 02/28/24 05:37 Immature Gran # (Auto) 0.02 K/uL (0.01-0.20) 02/28/24 05:37 PT 10.5 Seconds (9.0-12.0) 02/24/24 15:15 INR 1.0 (0.9-1.1) 02/24/24 15:15 ABG pH 7.34 (7.35-7.45) L 02/25/24 06:20 ABG pCO2 47 mmHg (35-46) H 02/25/24 06:20 ABG pO2 75 mmHg (80-95) L 02/25/24 06:20 ABG HCO3 25 mmol/L (19-24) H 02/25/24 06:20 ABG O2 Saturation 95.8 % (90-95) H 02/25/24 06:20 ABG Base Excess -0.8 mEq/L (-9-1.8) 02/25/24 06:20 Mark Test Pos (Pos) 02/25/24 06:20 Oxygen Given 4L 02/25/24 06:20 POC Sodium 139 mmol/L (135-144) 02/24/24 15:38 Sodium 137 mmol/L (136-145) 02/28/24 05:37 POC Potassium 4.6 mmol/L (3.3-5.0) 02/24/24 15:38 Potassium 4.6 mmol/L (3.5-5.1) 02/28/24 05:37 POC Chloride 101 mmol/L (101-112) 02/24/24 15:38 Chloride 105 mmol/L (98-107) 02/28/24 05:37 Carbon Dioxide 27 mmol/L (21-32) 02/28/24 05:37 POC Total CO2 27 mmol/L (24-31) 02/24/24 15:38 Anion Gap 5 (3-11) 02/28/24 05:37 POC Anion Gap 16.0 mmol/L (16-25) 02/24/24 15:38 POC BUN 12 mg/dl (7-18) 02/24/24 15:38 BUN 18 mg/dl (6-23) 02/28/24 05:37 Creatinine 1.22 mg/dl (0.6-1.4) 02/28/24 05:37 POC Creatinine 1.5 mg/dl (0.6-1.3) H 02/24/24 15:38 Est Cr Clr Drug Dosing 56.7 ml/min 02/28/24 05:37 Est GFR ( Amer) 65.4 ml/min 02/28/24 05:37 Est GFR (Non-Af Amer) 56.4 ml/min 02/28/24 05:37 BUN/Creatinine Ratio 14.8 (10-20) 02/28/24 05:37 Glucose 138 mg/dl (70-99(Fasting)) H 02/28/24 05:37 POC Glucose 132 mg/dl (70-99) H 02/26/24 11:33 POC Glucose (other) 149 mg/dl (70-99) H 02/24/24 15:38 Lactate 2.8 mmol/L (0.4-2.0) H* 02/25/24 20:06 Calcium 8.7 mg/dl (8.6-10.3) 02/28/24 05:37 POC Ioniz Calcium Violet 1.25 mmol/l (1.12-1.32) 02/24/24 15:38 Phosphorus 3.3 mg/dl (2.5-4.9) 02/26/24 05:37 Magnesium 2.1 mg/dl (1.7-2.4) 02/26/24 05:37 Iron 13 mcg/dl (35-175) L 02/25/24 06:08 TIBC 247 mcg/dl (250-450) L 02/25/24 06:08 Unsaturated IBC 234 mcg/dl (155-355) 02/25/24 06:08 Transferrin % Sat 5 % (20-50) L 02/25/24 06:08 Ferritin 192.1 ng/ml (8-388) 02/25/24 06:08 Total Bilirubin 0.4 mg/dl (0.2-1.0) 02/28/24 05:37 AST 18 U/L (13-39) 02/28/24 05:37 ALT 11 U/L (7-52) 02/28/24 05:37 Alkaline Phosphatase 69 U/L (34-104) 02/28/24 05:37 Ammonia 24.0 umol/L (18-72) 02/25/24 06:08 Total Creatine Kinase 88 U/L (30-223) 02/24/24 15:15 Troponin I High Sens 19.7 pg/ml (0-20) 02/25/24 06:08 Total Protein 6.1 gm/dl (6.0-8.3) 02/28/24 05:37 Albumin 3.5 gm/dl (3.4-5.0) 02/28/24 05:37 Globulin 2.6 gm/dl (2.5-4.0) 02/28/24 05:37 Albumin/Globulin Ratio 1.3 (0.9-2) 02/28/24 05:37 Vitamin B12 160 pg/ml (180-914) L 02/25/24 06:08 Folate 12.87 ng/ml (>5.38) 02/25/24 06:08 Procalcitonin 0.10 ng/ml (0-0.5) 02/25/24 06:17 TSH 3.988 uIu/ml (0.300-4.500) 02/25/24 06:08 Urine Color Yellow 02/24/24 22:30 Urine Appearance Clear (Clear) 02/24/24 22:30 Urine pH 5.5 (4.5-7.5) 02/24/24 22:30 Ur Specific [place] > 1.045 (1.000-1.030) H 02/24/24 22:30 Urine Protein Negative (Negative) 02/24/24 22:30 Urine Glucose (UA) Negative (Negative) 02/24/24 22:30 Urine Ketones Negative (Negative) 02/24/24 22:30 Urine Blood Negative (Negative) 02/24/24 22:30 Urine Nitrite Negative (Negative) 02/24/24 22:30 Urine Bilirubin Negative (Negative) 02/24/24 22: Urine Urobilinogen Negative (Negative) 02/24/24 22:30 Ur Leukocyte Esterase Negative (Negative) 02/24/24 22:30 Adenovirus (PCR) Not Detected (NotDetected) 02/26/24 15:00 B. pertussis DNA (PCR) Not Detected (NotDetected) 02/26/24 15:00 B.parapertussis DNA PCR Not Detected (NotDetected) 02/26/24 15:00 C. pneumoniae DNA (PCR) Not Detected (NotDetected) 02/26/24 15:00 Coronavirus OC43 (PCR) Not Detected (NotDetected) 02/26/24 15:00 Coronavirus HKU1 (PCR) Not Detected (NotDetected) 02/26/24 15:00 Coronavirus 229E (PCR) Not Detected (NotDetected) 02/26/24 15:00 SARS-CoV-2 (PCR) Not Detected (NotDetected) 02/26/24 15:00 Coronavirus NL63 (PCR) Not Detected (NotDetected) 02/26/24 15:00 Human Metapneumovir PCR Not Detected (NotDetected) 02/26/24 15:00 Influenza Type A (PCR) Not Detected (NotDetected) 02/26/24 15:00 Influenza Type B (PCR) Not Detected (NotDetected) 02/26/24 15:00 M. pneumoniae (PCR) Not Detected (NotDetected) 02/26/24 15:00 Parainfluenza 1 (PCR) Not Detected (NotDetected) 02/26/24 15:00 Parainfluenza 2 (PCR) Not Detected (NotDetected) 02/26/24 15:00 Parainfluenza 3 (PCR) Not Detected (NotDetected) 02/26/24 15:00 Parainfluenza 4 (PCR) Not Detected (NotDetected) 02/26/24 15:00 RSV (PCR) Not Detected (NotDetected) 02/26/24 15:00 Entero/Rhino (PCR) Not Detected (NotDetected) 02/26/24 15:00 Impressions Pelvis X-Ray 02/24/24 14:44 XR pelvis 1-2V routine CLINICAL HISTORY: trauma COMPARISON STUDY: Pelvis and left hip 10/25/2022. 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 Lucencies at the proximal right femur and base of the lesser trochanter may represent age- indeterminate nondisplaced fractures. No fracture or dislocation within the pelvis or left hip. IMPRESSION: Linear lucencies within the proximal femur and base of the right lesser trochanter may represent age-indeterminate nondisplaced fractures. Is patient is complaining of right hip pain then consider follow-up dedicated right hip radiograph for further evaluation. ACT 112: Negative or not required by law. Electronically signed by: Andrei Guillen M.D. 02/24/2024 3:10 PM Abdomen/Pelvis CT 02/24/24 14:[address] WITH CONTRAST, ABDOMEN AND PELVIS CT WITH INTRAVENOUS CONTRAST CT DOSE: 4575.89 mGy.cm HISTORY: Trauma TECHNIQUE: Multiaxial CT images of the chest, abdomen, and pelvis were performed following the intravenous administration of contrast. A dose lowering technique was utilized adhering to the principles of ALARA. COMPARISON: Chest CT 12/18/2023. Abdomen and pelvis CT 02/29/2000 and FINDINGS: Chest CT: There is a left-sided pacemaker and thoracic spinal stimulator leads noted. No acute fractures within the chest. Normal thyroid gland. Normal esophagus. No pleural or pericardial effusions. The heart is mildly enlarged. Normal caliber thoracic aorta with no evidence for a dissection. The main pulmonary arteries are patent. Mild mediastinal and bilateral hilar lymphadenopathy has improved. There are few calcified mediastinal and right hilar lymph nodes noted. No mediastinal hematoma identified. No pneumothorax. The central airways are patent. Suture material noted within the left upper lobe. Adjacent linear scarlike densities remain stable. Interstitial thickening and groundglass densities within the lungs posteriorly favor dependent change/atelectasis. Otherwise, no focal lung consolidations to suggest a pneumonia. No evidence for pulmonary edema. Abdomen/pelvis CT: No pneumoperitoneum. No pneumatosis. There are bilateral total hip arthroplasties. The right proximal femoral periprosthetic fracture is partially visualized on this study. There is a small intramuscular hematoma within the distal iliopsoas muscle. This is anterior to the right hip fracture. No retroperitoneal hematoma. Thoracic spinal stimulator leads are again noted. Multiple duodenal diverticula are present. Prior cholecystectomy. The liver, spleen, adrenal glands, and pancreas unremarkable. There is a punctate stone within the right kidney. There is a punctate stone within the lower pole of the left kidney. No ureteral stones. No hydronephrosis. The bladder is not well visualized due to the metallic artifact but appears unremarkable. No retroperitoneal lymphadenopathy. Calcified plaque within the normal caliber abdominal aorta. Trace pelvic free fluid is noted. Colonic diverticulosis. No evidence for acute diverticulitis. No bowel wall thickening or obstruction. IMPRESSION: 1. No acute traumatic process within the chest. 2. Mild mediastinal and bilateral hilar lymphadenopathy has improved. 3. There is a nondisplaced right femoral periprosthetic fracture with a small adjacent intramuscular hematoma at the distal iliopsoas. 4. Bilateral nephrolithiasis. No hydronephrosis. 5. Trace pelvic free fluid. 6. Additional findings as described above. ACT 112: Negative or not required by law. Electronically signed by: Andrei Guillen M.D. 02/24/2024 5:[address] 02/24/24 14:[address] DOSE: HISTORY: Trauma TECHNIQUE: Multiaxial CT images of the cervical spine were performed and reformatted in the sagittal and coronal plane without the use of contrast. A dose lowering technique was utilized adhering to the principles of ALARA. COMPARISON: Cervical spine CT 10/25/2022. FINDINGS: No fractures. No subluxation. Prevertebral soft tissues and the C1-C2 interval are intact. No pneumothorax. Left-sided pacemaker wires are noted. IMPRESSION: No fractures within the cervical spine. ACT 112: Negative or not required by law. Electronically signed by: Andrei Guillen M.D. 02/24/2024 4:[address] 02/24/24 14:[address] WITH CONTRAST, ABDOMEN AND PELVIS CT WITH INTRAVENOUS CONTRAST CT DOSE: 4575.89 mGy.cm HISTORY: Trauma TECHNIQUE: Multiaxial CT images of the chest, abdomen, and pelvis were performed following the intravenous administration of contrast. A dose lowering technique was utilized adhering to the principles of ALARA. COMPARISON: Chest CT 12/18/2023. Abdomen and pelvis CT 02/29/2000 and FINDINGS: Chest CT: There is a left-sided pacemaker and thoracic spinal stimulator leads noted. No acute fractures within the chest. Normal thyroid gland. Normal esophagus. No pleural or pericardial effusions. The heart is mildly enlarged. Normal caliber thoracic aorta with no evidence for a dissection. The main pulmonary arteries are patent. Mild mediastinal and bilateral hilar lymphadenopathy has improved. There are few calcified mediastinal and right hilar lymph nodes noted. No mediastinal hematoma identified. No pneumothorax. The central airways are patent. Suture material noted within the left upper lobe. Adjacent linear scarlike densities remain stable. Interstitial thickening and groundglass densities within the lungs posteriorly favor dependent change/atelectasis. Otherwise, no focal lung consolidations to suggest a pneumonia. No evidence for pulmonary edema. Abdomen/pelvis CT: No pneumoperitoneum. No pneumatosis. There are bilateral total hip arthroplasties. The right proximal femoral periprosthetic fracture is partially visualized on this study. There is a small intramuscular hematoma within the distal iliopsoas muscle. This is anterior to the right hip fracture. No retroperitoneal hematoma. Thoracic spinal stimulator leads are again noted. Multiple duodenal diverticula are present. Prior cholecystectomy. The liver, spleen, adrenal glands, and pancreas unremarkable. There is a punctate stone within the right kidney. There is a punctate stone within the lower pole of the left kidney. No ureteral stones. No hydronephrosis. The bladder is not well visualized due to the metallic artifact but appears unremarkable. No retroperitoneal lymphadenopathy. Calcified plaque within the normal caliber abdominal aorta. Trace pelvic free fluid is noted. Colonic diverticulosis. No evidence for acute diverticulitis. No bowel wall thickening or obstruction. IMPRESSION: 1. No acute traumatic process within the chest. 2. Mild mediastinal and bilateral hilar lymphadenopathy has improved. 3. There is a nondisplaced right femoral periprosthetic fracture with a small adjacent intramuscular hematoma at the distal iliopsoas. 4. Bilateral nephrolithiasis. No hydronephrosis. 5. Trace pelvic free fluid. 6. Additional findings as described above. ACT 112: Negative or not required by law. Electronically signed by: Andrei Guillen M.D. 02/24/2024 5:33 PM Hip X-Ray 02/24/24 15:14 XR hip RT min 2V CLINICAL HISTORY: R hip pain s/p fall COMPARISON STUDY: Pelvis 02/24/2024. FINDINGS: Confirmation of a nondisplaced periprosthetic fracture within the residual proximal right femur. The right hip prosthesis appears intact. No dislocation. IMPRESSION: Confirmation of a nondisplaced periprosthetic fracture within the proximal right femur. ACT 112: Negative or not required by law. Electronically signed by: Andrei Guillen M.D. 02/24/2024 3:[address] 02/25/24 05:50 CR Exam(s): CT HEAD Without Contrast EXAM: CT Head Without Intravenous Contrast CLINICAL HISTORY: Reason for exam: cva?. TECHNIQUE: Axial computed tomography images of the head/brain without intravenous contrast. CTDI is 36.05 mGy and DLP is 624.41 mGy-cm. Automated exposure control was utilized for the study. A dose lowering technique was utilized adhering to the principles of ALARA. COMPARISON: 03/15/24 FINDINGS: Brain: Chronic periventricular ischemic demyelination changes seen. No hemorrhage. Ventricles: Unremarkable. No ventriculomegaly. Bones/joints: Unremarkable. No acute fracture. Soft tissues: Unremarkable. Sinuses: Unremarkable as visualized. No acute sinusitis. Mastoid air cells: Unremarkable as visualized. No mastoid effusion. IMPRESSION: No acute intracranial abnormality Communications: Call Doctor Stroke Electronically signed by: Sen Ortega MD 02/25/24 06:26 AM Head CTA 02/25/24 05:52 CR Exam(s): CTA HEAD With Contrast IV Amt: 118 ml optiray 320 EXAM: CT Angiography Head With Intravenous Contrast CLINICAL HISTORY: Reason for exam: cva?. TECHNIQUE: Axial computed tomographic angiography images of the head with intravenous contrast. CTDI is open kidney not called him back for the CTA report that about a gram 36.05 mGy and DLP is 624.41 mGy-cm. Automated exposure control was utilized for the study. A dose lowering technique was utilized adhering to the principles of ALARA. MIP reconstructed images were created and reviewed. CONTRAST: Patient received 118 ml optiray 320 of IV contrast COMPARISON: No relevant prior studies available. FINDINGS: Right internal carotid artery: No acute findings. Intracranial segment is patent with no significant stenosis. No aneurysm. Right anterior cerebral artery: Unremarkable. No occlusion or significant stenosis. No aneurysm. Right middle cerebral artery: Unremarkable. No occlusion or significant stenosis. No aneurysm. Right posterior cerebral artery: Unremarkable. No occlusion or significant stenosis. No aneurysm. Right vertebral artery: Unremarkable as visualized. Left internal carotid artery: No acute findings. Intracranial segment is patent with no significant stenosis. No aneurysm. Left anterior cerebral artery: Unremarkable. No occlusion or significant stenosis. No aneurysm. Left middle cerebral artery: Unremarkable. No occlusion or significant stenosis. No aneurysm. Left posterior cerebral artery: Unremarkable. No occlusion or significant stenosis. No aneurysm. Left vertebral artery: Unremarkable as visualized. Basilar artery: Unremarkable. No occlusion or significant stenosis. No aneurysm. IMPRESSION: Normal head CTA. Communications: Call Doctor Stroke Electronically signed by: Sen Ortega MD 02/25/24 06:30 AM Neck CTA 02/25/24 05:52 CR Exam(s): CTA NECK With Contrast IV Amt: 118 ML OPTIRAY 320 EXAM: CT Angiography Neck With Intravenous Contrast CLINICAL HISTORY: Reason for exam: cva. TECHNIQUE: Routine carotid CT angiography protocol was performed with intravenous contrast. NASCET criteria using the distal ICAs for comparison were used for evaluation of stenoses. CTDI is 50.94 mGy and DLP is 517.84 mGy-cm. Automated exposure control was utilized for the study. A dose lowering technique was utilized adhering to the principles of ALARA. MIP reconstructed images were created and reviewed. CONTRAST: Patient received 118 ML OPTIRAY 320 of IV contrast COMPARISON: None. FINDINGS: VASCULATURE: Right common and internal carotid artery: Moderate atherosclerotic calcification seen at the bifurcation of the right common carotid artery causing 50% luminal narrowing in the right internal carotid artery origin. Right external carotid artery: Unremarkable. No occlusion. Right vertebral artery: Unremarkable. No occlusion or significant stenosis. No dissection. Left common carotid artery: Mild atherosclerotic calcification seen in the left common carotid artery. Left internal carotid artery: Unremarkable. Extracranial segment is patent with no occlusion or significant stenosis. No dissection. Left external carotid artery: Unremarkable. No occlusion. Left vertebral artery: Unremarkable. No occlusion or significant stenosis. No dissection. NECK: Bones/joints: Unremarkable. No acute fracture. Soft tissues: Unremarkable. Lung apices: Postsurgical changes seen in the left upper lobe. Other findings: Mild bilateral diffuse bronchial wall thickening seen. CAROTID STENOSIS REFERENCE USING NASCET CRITERIA: % ICA stenosis = (1 - narrowest ICA diameter/diameter of distal cervical ICA) x 100. Mild - <50% stenosis. Moderate - 50-69% stenosis. Severe - 70-94% stenosis. Near occlusion - 95-99% stenosis. Occluded - 100% stenosis. 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 Communications: Call Doctor Stroke Electronically signed by: Sen Ortega MD 02/25/24 06:28 AM Chest X-Ray 02/26/24 09:08 XR chest 1V portable CLINICAL HISTORY: wheezing TECHNIQUE: Single frontal radiograph of the chest was obtained. Comparison: Comparison is made to chest radiograph 03/13/2024 FINDINGS: An implanted pacemaker is seen. Spinal stimulator is seen. The cardiomediastinal silhouette is normal. Peribronchial thickening is seen. There is blunting of the costophrenic angle on the left. IMPRESSION: Peribronchial thickening is seen compatible with infectious/inflammatory airways disease or viral pneumonia. No ronald consolidation is seen. ACT 112: Negative or not required by law. Electronically signed by: Eduardo Salinas M.D. 02/26/2024 11:54 AM 02/24/24 14:44 CT head/brain wo con Stat 02/24/24 14:45 CT abd pelvis IV con only Stat CT cervical spine wo con Stat CT chest diagnostic w con Stat 02/25/24 05:50 CT head/brain wo con Stat 02/25/24 05:52 CTA head w con [CT angio head w con] Stat CTA neck with con [CT angio neck with con] Stat Pending Results Patient Have Any Pending Studies at Discharge: No Discharge Instructions Given to Patient (Per Discharging Provider) Please refer to hospital discharge summary. Total Time Total Time Spent Total Time Spent (In Minutes): 45 minutes
[2024-03-02 11:53] VITALS: BP 167/74; PULSE 69; RESP 20; TEMP 97.3; O2SAT 93
== END 2024-03-02 13:00 | DRG 559 ==
LOC: ED 14:25 → SUATTDRO 18:35 → 2S 18:35

== ENCOUNTER 2024-03-09 12:09 | Inpatient (IN) ==
--- NOTE | 2024-03-09 12:36 | Emergency Department Note ---
Impression & Plan Pneumonia, Periprosthetic fracture around internal prosthetic right hip joint, Sepsis, Hypoxia, Acidosis, lactic ED Provider Note NAME: CORRIE MCCARTY AGE: 79 SEX: M : 1945 ARRIVES VIA: Ambulance INFORMANT: Patient, EMS ED PROVIDER(S): Noe Jane DO CHIEF COMPLAINT: Hip pain HPI: The patient is a 79-year-old male who presented to the emergency department for an evaluation of hip pain. According to the prehospital personnel they are also concerned the patient may be septic. He has not been acting normally at the personal-assisted. The patient has a history of coronary artery disease as well as atrial fibrillation. He also has a history of DVT. There is no reported trauma but the patient states he fell although he cannot tell me exactly when. According to the personal-assisted the patient was having problems ambulating. ROS: See above HPI for pertinent positives & negatives. A total of 10 systems reviewed and were otherwise negative. PAST MEDICAL HISTORY: See Below PAST SURGICAL HISTORY: See Below FAMILY HISTORY: See Below SOCIAL HISTORY: See Below HOME MEDICATIONS: See Below ALLERGIES: See Below VITALS: See Below PHYSICAL EXAMINATION: GENERAL: The patient is awake and alert. The patient is somewhat anxious appearing. EYES: The conjunctivae are clear. The pupils are round and reactive. EARS, NOSE, MOUTH AND THROAT: The nose is without any evidence of any deformity. NECK: The neck is nontender and supple. RESPIRATORY: Scattered rhonchi were noted throughout. CARDIOVASCULAR: Tachycardic and irregular heart sounds were noted to auscultation. GASTROINTESTINAL: The abdomen was mildly distended. There is no tenderness guarding or rigidity. MUSCULOSKELETAL/EXTREMITIES: There was no shortening of either lower extremity. There was pain with palpation over the lateral right hip. Range of motion appears to elicit pain as well. SKIN: There is no obvious evidence of any rash. There are no petechiae, pallor or cyanosis noted. NEUROLOGIC: Patient is awake alert and oriented to person. The patient is not oriented to place or time. Strength was symmetric. MEDICAL DECISION MAKING: The patient is a 79-year-old male who presented to the emergency department for an evaluation of hip pain. The patient comes from a [facility]. The patient was somewhat confused. He was noted to have abnormal lung sounds and hypoxia by the prehospital personnel. I discussed the patient's laboratory and radiographic studies with him. I discussed his condition with the on-call orthopedic physician as well as the on-call [facility] hospitalist. They have agreed to evaluate the patient in the emergency department. The patient was treated with IV fluids and IV antibiotics. He was placed on supplemental oxygen. He was somewhat combative at times. He would remove his oxygen. Ultimately his vital signs did improve while he is in the emergency department. Triage Nursing notes reviewed. Prior medical records reviewed Vital Signs: reviewed and remarkable for hypotension tachycardia hypoxia and fever. Differential diagnosis: Infection, hypoglycemia, electrolyte abnormalities, overdose, toxicologic, cardiac sources, intracerebral event, neurologic, trauma, as well as other pathologies. ER treatment provided: See below Diagnostics interpreted by me: ECG: EKG was obtained in the emergency department. My interpretation is atrial fibrillation at [address] depressions with T wave abnormalities were noted. LVH was noted by voltage criteria. This was compared to a tracing from February 24, 2024. Paced rhythm has been replaced with atrial fibrillation. Cardiac Monitoring: An order was placed for continuous cardiac monitoring. The monitor shows a rate of 119 bpm with atrial fibrillation and RVR. Laboratory studies: As stated above and show below. Imaging studies: See below. Radiographic imaging was reviewed by myself Consultation(s): I discussed this case with Dr. Yip who is on for orthopedics. I discussed this [facility] COURSE: Procedures: none Critical Care: I have personally spent greater than 45 minutes of critical care time in the direct management of this patient. This includes bedside care, interpretation of diagnostic studies, and testing, discussion with consultants, patient, and family members, and other required patient management activities. This 45 minutes is in excess of all separately billable procedures. Past Med/Surg History Problem List (Updated 03/09/24 @ 15:07 by Noe Jane DO) Acidosis, lactic (Acute) Hypoxia (Acute) Sepsis (Acute) Periprosthetic fracture around internal prosthetic right hip joint (Acute) Pneumonia (Acute) Non-ST elevation VT (NSTEMI) (Acute) Periprosthetic fracture around internal prosthetic right hip joint (Acute) Acute pain of right hip (Acute) Lightheadedness (Acute) Fall from standing (Acute) Dyslipidemia, goal LDL below 70 HTN, goal below 130/80 AVNRT (AV pola re-entry tachycardia) Orthostatic hypotension JOHN (acute kidney injury) (Acute) Syncope and collapse (Acute) BRENDA (obstructive sleep apnea) CAD (coronary artery disease) Sinus node dysfunction Elevated troponin Anemia (Acute) BPH w urinary obs/LUTS Moderate persistent asthma ASCVD (arteriosclerotic cardiovascular disease) Closed femur fracture (Acute) PSVT (paroxysmal supraventricular tachycardia) Cough (Acute) Wide-complex tachycardia (Acute) DDD (degenerative disc disease), lumbar HTN (hypertension) Hypothyroidism Zoster ophthalmicus Herpes zoster (Acute) Chronic anticoagulation (Chronic) Chronic right SI joint pain (Chronic) Asthma, allergic (Acute) Atherosclerotic heart disease of [place] coronary artery without angina pectoris (Acute) Chronic bronchitis (Acute) Chronic cholecystitis (Acute) Deep vein thrombosis of distal lower extremity (Acute) Diverticulosis of colon (Acute) Dyslipidemia (Acute) Idiopathic scoliosis (Acute) Inflamed seborrheic keratosis (Acute) Major depressive disorder (Acute) Mediastinal adenopathy (Acute) Pleurisy (Acute) Pulmonary nodule seen on imaging study (Acute) SOB (shortness of breath) (Acute) Sleep apnea (Acute) Vitamin D deficiency (Acute) Neuritis of left ulnar nerve (Chronic) Myofascial pain (Chronic) Chronic hip pain after total replacement of right hip joint (Chronic) 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 (Chronic) Symptomatic bradycardia (Chronic) Emphysema of lung (Chronic) 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) Lumbar post-laminectomy syndrome (Chronic) DVT (deep venous thrombosis) (Chronic 01/29/14) Hypothyroidism (Chronic) COPD (chronic obstructive pulmonary disease) (Chronic) BPH (benign prostatic hyperplasia) (Chronic) Carotid stenosis (Chronic) Diastolic dysfunction (Chronic) SSS (sick sinus syndrome) (Chronic) Pacemaker (Chronic) HTN (hypertension) (Chronic) HLD (hyperlipidemia) (Chronic) Depression (Chronic) RLS (restless legs syndrome) (Chronic) History of left heart catheterization (LHC) (Chronic) Fingertip amputation (Chronic) Exertional shortness of breath (Chronic) Lung infiltrate (Chronic) Osteoarthritis of left knee (Chronic) Medical History Chronic hypoxic respiratory failure Spinal cord stimulator status Surgical History Status post insertion of spinal cord stimulator Family History Mother Heart disease Social History Smoking Status: Unknown if ever smoked Tobacco Type: Cigarettes Do You Dip or Chew Tobacco: No; Hx Alcohol Use: No Hx Substance Use: No Preferred Language: Latvian Communication Ability: Effective Teletypewriter Operator Required: No Beliefs That Will Affect Care: None marital status: Current Living Situation: Spouse Current Living Situation Comment: Home with current occupational status: disabled Feels Safe at Home: Hesitant to Answer Assistive Devices: Cane, Stair Lift and Walker Allergies Allergies Allergy/AdvReac Type Severity Reaction Status Date / Time adhesive Allergy Intermediate SKIN Verified 01/21/24 17:02 BLISTERS latex Allergy Unknown PER Verified 01/21/24 17:02 [facility] "PT DENIES" Home Meds Home Medications Medication Instructions Recorded Confirmed acetaminophen 500 mg tablet 1,000 mg PO TID PRN Pain 03/06/23 02/24/24 (Tylenol Extra Strength) amitriptyline 25 mg tablet 50 mg PO HS 03/06/23 02/24/24 atorvastatin 80 mg tablet 80 mg PO DAILY 03/06/23 02/24/24 clopidogrel 75 mg tablet 75 mg PO QAM 03/06/23 02/24/24 duloxetine 30 mg capsule,delayed 30 mg PO QPM 03/06/23 02/24/24 release duloxetine 60 mg capsule,delayed 60 mg PO QPM 03/06/23 02/24/24 release finasteride 5 mg tablet 5 mg PO DAILY 03/06/23 02/24/24 gabapentin 300 mg capsule 300 mg PO TID 03/06/23 02/24/24 levothyroxine 75 mcg tablet 75 mcg PO DAILYBB 03/06/23 02/24/24 nitroglycerin 0.4 mg sublingual 0.4 mg sublingual DIRECTED PRN 03/06/23 02/24/24 tablet Chest Pain pantoprazole 40 mg tablet,delayed 40 mg PO DAILY 03/06/23 02/24/24 release umeclidinium 62.5 mcg-vilanterol 1 inh inhalation DAILY 01/21/24 02/24/24 25 mcg/actuation powdr for inhalation (Anoro Ellipta) Previous Rx's Medication Instructions Recorded metoprolol succinate 25 mg 50 mg (2 x 25 mg) PO QAM #60 tabs 01/27/24 tablet,extended release 24 hr tamsulosin 0.4 mg capsule 0.4 mg PO QAM #30 caps 01/27/24 amlodipine 5 mg tablet (Norvasc) 5 mg PO QAM 30 days #30 tabs 03/02/24 ipratropium 0.5 mg-albuterol 3 mg 3 ml inhalation Q6H PRN Shortness 03/02/24 (2.5 mg base)/3 mL nebulization Of Breath #90 mL soln levalbuterol HCl 1.25 mg/3 mL 1.25 mg (3 mL) inhalation TID 7 03/02/24 solution for nebulization days #63 mL lidocaine 5 % topical patch 1 patch transdermal QAM 10 days 03/02/24 #15 ea mecobalamin (vitamin B12) 1,000 1,000 mcg PO DAILY #30 tabs 03/02/24 mcg chewable tablet (B12 Active) Results & Data (ED) Vital Signs Vital Signs - 24 hr 03/09/24 12:03 03/09/24 12:03 03/09/24 12:18 Temperature 37.7 C H Temperature Source Oral Pulse Rate 124 H 122 H Pulse Rate [Apical] Pulse Rate from SpO2 Sensor Pulse Rhythm Regular Regular Pulse Strength Normal Pulse Strength [Apical] Respiratory Rate 22 20 Respiratory Effort / Characteristics Non-Labored Spontaneous Respiratory Depth Normal Respiratory Pattern Regular Blood Pressure 86/72 L Blood Pressure [Right Arm] Blood Pressure Mean 76 Blood Pressure Mean [Right Arm] Blood Pressure Position Sitting Pulse Oximetry 96 94 Oxygen Delivery Method Nasal Cannula Nasal Cannula Nasal Cannula Oxygen Flow Rate 6 6 6 Sepsis Recent Fever Within 48 Hours No Sepsis New/Unexplained Change in Mental Status Yes Sepsis Action Taken by Nursing Physician Notified 03/09/24 12:42 03/09/24 12:45 03/09/24 13:12 Temperature Temperature Source Pulse Rate 125 H 125 H 124 H Pulse Rate [Apical] Pulse Rate from SpO2 Sensor 123 H Pulse Rhythm Pulse Strength Pulse Strength [Apical] Respiratory Rate 25 H 30 H 24 Respiratory Effort / Characteristics Respiratory Depth Respiratory Pattern Blood Pressure Blood Pressure [Right Arm] Blood Pressure Mean Blood Pressure Mean [Right Arm] Blood Pressure Position Pulse Oximetry 94 Oxygen Delivery Method Oxygen Flow Rate Sepsis Recent Fever Within 48 Hours Sepsis New/Unexplained Change in Mental Status Sepsis Action Taken by Nursing 03/09/24 13:14 03/09/24 13:15 03/09/24 13:15 Temperature Temperature Source Pulse Rate 124 H Pulse Rate [Apical] 112 H Pulse Rate from SpO2 Sensor 124 H Pulse Rhythm Pulse Strength Pulse Strength [Apical] Normal Respiratory Rate 18 24 Respiratory Effort / Characteristics Non-Labored Spontaneous Respiratory Depth Normal Respiratory Pattern Regular Blood Pressure 95/76 L Blood Pressure [Right Arm] 95/76 L Blood Pressure Mean 80 Blood Pressure Mean [Right Arm] 82 Blood Pressure Position Pulse Oximetry 92 91 Oxygen Delivery Method Nasal Cannula Oxygen Flow Rate 2 Sepsis Recent Fever Within 48 Hours Sepsis New/Unexplained Change in Mental Status Sepsis Action Taken by Nursing 03/09/24 13:27 03/09/24 13:30 03/09/24 13:30 Temperature Temperature Source Pulse Rate 121 H 128 H Pulse Rate [Apical] 118 H Pulse Rate from SpO2 Sensor Pulse Rhythm Pulse Strength Pulse Strength [Apical] Normal Respiratory Rate 21 18 Respiratory Effort / Characteristics Non-Labored Spontaneous Respiratory Depth Normal Respiratory Pattern Regular Blood Pressure Blood Pressure [Right Arm] 98/71 L Blood Pressure Mean Blood Pressure Mean [Right Arm] 80 Blood Pressure Position Pulse Oximetry 93 Oxygen Delivery Method Nasal Cannula Oxygen Flow Rate 2 Sepsis Recent Fever Within 48 Hours Sepsis New/Unexplained Change in Mental Status Sepsis Action Taken by Nursing 03/09/24 13:30 03/09/24 13:33 03/09/24 13:54 Temperature Temperature Source Pulse Rate 120 H 118 H Pulse Rate [Apical] Pulse Rate from SpO2 Sensor 121 H 214 H Pulse Rhythm Pulse Strength Pulse Strength [Apical] Respiratory Rate 25 H 27 H Respiratory Effort / Characteristics Respiratory Depth Respiratory Pattern Blood Pressure 98/71 L Blood Pressure [Right Arm] Blood Pressure Mean 88 Blood Pressure Mean [Right Arm] Blood Pressure Position Pulse Oximetry 94 82 L Oxygen Delivery Method Oxygen Flow Rate Sepsis Recent Fever Within 48 Hours Sepsis New/Unexplained Change in Mental Status Sepsis Action Taken by Nursing 03/09/24 14:00 Temperature Temperature Source Pulse Rate 119 H Pulse Rate [Apical] Pulse Rate from SpO2 Sensor Pulse Rhythm Pulse Strength Pulse Strength [Apical] Respiratory Rate 24 Respiratory Effort / Characteristics Respiratory Depth Respiratory Pattern Blood Pressure Blood Pressure [Right Arm] Blood Pressure Mean Blood Pressure Mean [Right Arm] Blood Pressure Position Pulse Oximetry Oxygen Delivery Method Oxygen Flow Rate Sepsis Recent Fever Within 48 Hours Sepsis New/Unexplained Change in Mental Status Sepsis Action Taken by [facility] Medications Current Medication List: was personally reviewed by me Laboratory Data Attestation: I reviewed the patient's lab results. 03/09/24 12:35 03/09/24 12:35 Lab Results 03/09/24 03/09/24 Range/Units 12:35 14:41 WBC 15.21 H (4.8-10.8) K/ul RBC 4.18 L (4.70-6.10) M/uL Hgb 13.3 L (14.0-18.0) g/dl Hct 40.5 L (42.0-52.0) % MCV 96.9 (80.0-100.0) fL MCH 31.8 (25.0-34.0) pg MCHC 32.8 (32.0-36.0) g/dL RDW Std Deviation 50.4 H (36.4-46.3) fL RDW Coeff of Jarrett 14.3 (11.5-14.5) % Plt Count 372 (130-400) K/uL MPV 10.6 (9.4-12.4) fL Immature Gran % (Auto) 0.5 % Neut % (Auto) 76.4 % Lymph % (Auto) 11.4 % [place] % (Auto) 10.3 % Eos % (Auto) 0.9 % Baso % (Auto) 0.5 % Neut # (Auto) 11.63 H (1.40-6.50) K/uL Lymph # (Auto) 1.74 (1.20-3.40) K/uL [place] # (Auto) 1.57 H (0.11-0.59) K/uL Eos # (Auto) 0.13 (0.00-0.50) K/uL Baso # (Auto) 0.07 (0.00-0.20) K/uL Immature Gran # (Auto) 0.07 (0.01-0.20) K/uL PT 11.0 (9.0-12.0) Seconds INR 1.0 (0.9-1.1) APTT 24 (21-31) Seconds PTT Ratio 0.9 VBG pH 7.35 L (7.36-7.41) VBG pCO2 55 H (38-50) mmHg VBG pO2 < 20 mmHg VBG HCO3 30 mmol/L VBG O2 Saturation < 60.0 % VBG Base Excess 3.2 mEq/L Sodium 138 (136-145) mmol/L Potassium 4.7 (3.5-5.1) mmol/L Chloride 101 (98-107) mmol/L Carbon Dioxide 27 (21-32) mmol/L Anion Gap 10 (3-11) BUN 24 H (6-23) mg/dl Creatinine 1.46 H (0.6-1.4) mg/dl Est Cr Clr Drug Dosing 44.5 ml/min Est GFR ( Amer) 52.6 ml/min Est GFR (Non-Af Amer) 45.4 ml/min BUN/Creatinine Ratio 16.4 (10-20) Glucose 152 H (70-99(Fasting)) mg/dl Lactate 4.3 H* 3.0 H* (0.4-2.0) mmol/L Calcium 9.6 (8.6-10.3) mg/dl Magnesium 2.3 (1.7-2.4) mg/dl Total Bilirubin 0.7 (0.2-1.0) mg/dl Direct Bilirubin 0.1 (0-0.2) mg/dl AST 17 (13-39) U/L ALT 15 (7-52) U/L Alkaline Phosphatase 105 H (34-104) U/L Troponin I High Sens 45.0 H (0-20) pg/ml B-Natriuretic Peptide 215 H (0-100) pg/ml Total Protein 7.0 (6.0-8.3) gm/dl Albumin 4.0 (3.4-5.0) gm/dl Procalcitonin 0.09 (0-0.5) ng/ml SARS-CoV-2 (PCR) NEGATIVE (Negative) Influenza Type A (PCR) Negative (Neg) Influenza Type B (PCR) Negative (Neg) RSV (RT-PCR) Negative (Neg) Administered Medications Discontinued Medications Sodium Chloride (Nss) 1,000 mls @ 999 mls/hr IV .Q1H1M ONE Stop: 03/09/24 14:09 Last Admin: 03/09/24 13:14 Dose: 999 mls/hr Documented By: MAHAMED Piperacillin Sod/Tazobactam Sod (Zosyn) 4.5 gm in 100 mls @ 200 mls/hr IV NOW ONE Stop: 03/09/24 13:38 Last Admin: 03/09/24 13:29 Dose: 200 mls/hr Documented By: MAHAMED Imaging Data Attestation: I personally reviewed and interpreted this imaging study as follows: My Impression: 1 view chest x-ray was obtained in the emergency department. My interpretation is left lower lobe infiltrate, final report below. X-ray of the right hip was obtained in the emergency department. My interpretation is periprosthetic right hip fracture, final report below. CT the brain was obtained in the emergency department. My interpretation is no intracranial hemorrhage or mass effect, final report below. Radiologist's Impression: Chest X-Ray 03/09/24 12:18 XR chest 1V portable HISTORY: Sepsis COMPARISON: Chest 02/26/2024. FINDINGS: No pneumothorax. No pleural effusions. The heart remains mildly enlarged. There are low lung volumes. Perihilar interstitial thickening persists. No evidence for pulmonary edema. Patchy left basilar densities have slightly progressed. A left-sided dual-chamber pacemaker. Spinal stimulator leads are again noted. IMPRESSION: 1. Patchy left basilar densities have slightly progressed. This could represent atelectasis or a pneumonia. 2. Stable myocardial mild cardiomegaly. 3. Mild perihilar interstitial thickening, unchanged. This could represent a viral process or developing congestive change. ACT 112: Negative or not required by law. Electronically signed by: Andrei Guillen M.D. 03/09/2024 2:[address] 03/09/24 12:[address] DOSE: 625.8 mGy.cm HISTORY: Altered mental status TECHNIQUE: Multiaxial CT images of the head were performed without the use of intravenous contrast. Automated exposure control was utilized for this study. A dose lowering technique was utilized adhering to the principles of ALARA. Comparison: Head CT 02/25/2024. Findings: The paranasal sinuses and mastoid air cells are clear. The calvarium and skull base are intact. There is no mass, hematoma, midline shift, acute infarct. White matter hypodensity is nonspecific but suggestive of microvascular ischemic change. The ventricles and sulci demonstrate mild age-related involutional changes. Impression: No significant change compared to the prior study. No acute intracranial abnormality. ACT 112: Negative or not required by law. Electronically signed by: Andrei Guillen M.D. 03/09/2024 1:39 PM Hip/Pelvis X-Ray 03/09/24 12:18 XR hip RT 2V w pelvis CLINICAL HISTORY: Right hip pain. COMPARISON: Right hip radiograph and CT of the abdomen and pelvis February 24, 2024. FINDINGS: Visualized portions of the left hip arthroplasty are intact. There is no proximal left femoral fracture. No pelvic fractures are identified. There has been no change in alignment of the subacute nondisplaced right femoral periprosthetic fracture since prior radiographs. IMPRESSION: 1. No change in alignment of a subacute nondisplaced right femoral periprosthetic fracture. 2. No additional fractures within the pelvis or hips. 3. Status post bilateral hip arthroplasty. ACT 112: Negative or not required by law. Electronically signed by: Boyd Chandler M.D. 03/09/2024 2:45 PM Discharge Plan Visit Data Chief Complaint: Hip Pain ED Provider: Noe Jane Discharge Problem: Pneumonia, Periprosthetic fracture around internal prosthetic right hip joint, Sepsis, Hypoxia, Acidosis, lactic Patient Disposition: Being Evaluated by Hospitalist Forms Stand Alone Forms: [facility] Prescriptions Prescriptions: No Action amitriptyline 25 mg tablet 50 mg PO HS gabapentin 300 mg capsule 300 mg PO TID Rx Instructions: Am, noon, hs duloxetine 30 mg capsule,delayed release(DR/EC) 30 mg PO QPM Rx Instructions: TOTAL DOSE 90 MG--TAKES WITH 60 MG CAP. duloxetine 60 mg capsule,delayed release(DR/EC) 60 mg PO QPM Rx Instructions: TOTAL DOSE 90 MG--TAKES WITH 30 MG CAP. atorvastatin 80 mg tablet 80 mg PO DAILY clopidogrel 75 mg tablet 75 mg PO QAM acetaminophen [Tylenol Extra Strength] 500 mg Tablet 1,000 mg PO TID PRN (Reason: Pain) levothyroxine 75 mcg tablet 75 mcg PO DAILYBB pantoprazole 40 mg tablet,delayed release (DR/EC) 40 mg PO DAILY nitroglycerin 0.4 mg tablet, sublingual 0.4 mg sublingual DIRECTED PRN (Reason: Chest Pain) finasteride 5 mg tablet 5 mg PO DAILY Anoro Ellipta 62.5-25 mcg/actuation Blister With Device 1 inh INHALATION DAILY tamsulosin 0.4 mg capsule 0.4 mg PO QAM Qty: 30 0RF metoprolol succinate 25 mg tablet extended release 24 hr 50 mg PO QAM Qty: 60 0RF amlodipine [Norvasc] 5 mg Tablet 5 mg PO QAM 30 Days Qty: 30 0RF lidocaine 5 % Adhesive Patch,Medicated 1 patch transdermal QAM 10 Days Qty: 15 0RF mecobalamin (vitamin B12) [B12 Active] 1,000 mcg tablet,chewable 1,000 mcg PO DAILY Qty: 30 0RF ipratropium-albuterol 0.5 mg-3 mg(2.5 mg base)/3 mL Solution For Nebulization 3 ml INHALATION Q6H PRN (Reason: Shortness Of Breath) Qty: 90 0RF levalbuterol HCl 1.25 mg/3 mL solution for nebulization 1.25 mg inhalation TID 7 Days Qty: 63 1RF Rx Instructions: may also use q4h prn for shortness of breath/wheezing Referrals Referrals: Guera Escudero MD [Primary Care Provider] - Discharge Problem: Pneumonia Qualifiers: Pneumonia type: due to unspecified organism Laterality: unspecified laterality Lung location: unspecified part of lung Qualified Code(s): J18.9 - Pneumonia, unspecified organism Periprosthetic fracture around internal prosthetic right hip joint Qualifiers: Encounter type: subsequent encounter Qualified Code(s): M97.01XD - Periprosthetic fracture around internal prosthetic right hip joint, subsequent encounter Sepsis Qualifiers: Sepsis type: sepsis due to unspecified organism Sepsis acute organ dysfunction status: unspecified Qualified Code(s): A41.9 - Sepsis, unspecified organism
[2024-03-09 12:58] LABS: Base Excess VBG 3.2 mEq/L; HCO3 VBG 30 mmol/L; Oxygen Saturation VBG < 60.0 %; PCO2 VBG 55 mmHg (38-50); PO2 VBG < 20 mmHg; pH VBG 7.35 (7.36-7.41)
[2024-03-09 12:59] LABS: Basophils # (auto) 0.07 K/uL (0.00-0.20); Basophils % (auto) 0.5 %; Eosinophils # (auto) 0.13 K/uL (0.00-0.50); Eosinophils % (auto) 0.9 %; Hematocrit (blood only) 40.5 % (42.0-52.0); Hemoglobin 13.3 g/dl (14.0-18.0); Immature Granulocytes # (auto) 0.07 K/uL (0.01-0.20); Immature Granulocytes % (auto) 0.5 %; Lymphocytes # (auto) 1.74 K/uL (1.20-3.40); Lymphocytes % (auto) 11.4 %; Mean Corpuscular Hemoglobin 31.8 pg (25.0-34.0); Mean Corpuscular Hgb Conc 32.8 g/dL (32.0-36.0); Mean Corpuscular Volume 96.9 fL (80.0-100.0); Mean Platelet Volume 10.6 fL (9.4-12.4); Monocytes # (auto) 1.57 K/uL (0.11-0.59); Monocytes % (auto) 10.3 %; Neutrophils # (auto) 11.63 K/uL (1.40-6.50); Neutrophils % (auto) 76.4 %; Platelet Count 372 K/uL (130-400); RDW Coefficient of Variation 14.3 % (11.5-14.5); RDW Standard Deviation 50.4 fL (36.4-46.3); Red Blood Count 4.18 M/uL (4.70-6.10); White Blood Count 15.21 K/ul (4.8-10.8)
[2024-03-09] MEDS: SODIUM CHLORIDE 0.9% 1,000 ML IV ONE ×2 (13:14→17:33)
[2024-03-09 13:19] LABS: BUN Creatinine Ratio 16.4 (10-20); Bilirubin Direct 0.1 mg/dl (0-0.2); Bilirubin,Total 0.7 mg/dl (0.2-1.0); Calcium 9.6 mg/dl (8.6-10.3); Creatinine Clr Calc Pharmacy 44.5 ml/min; Est GFR (African American) 52.6 ml/min; Est GFR (Non-African American) 45.4 ml/min; Magnesium 2.3 mg/dl (1.7-2.4); Potassium 4.7 mmol/L (3.5-5.1)
[2024-03-09 13:25] LABS: Partial Thromboplastin Ratio 0.9; Partial Thromboplastin Time 24 Seconds (21-31)
[2024-03-09] MEDS: PIPERACILLIN/TAZOBACTAM 4.5 GM/100 ML BAG IV ONE (13:29)
--- NOTE | 2024-03-09 13:40 | CT Scan Report ---
HEAD CT NONCONTRAST CT DOSE: 625.8 mGy.cm HISTORY: Altered mental status TECHNIQUE: Multiaxial CT images of the head were performed without the use of intravenous contrast. A utomated exposure control was utilized for this study. A dose lowering technique was utilized adheri ng to the principles of ALARA. Comparison: Head CT 02/25/2024. Findings: The paranasal sinuses and mastoid air cells are clear. The calvarium and skull base are int act. There is no mass, hematoma, midline shift, acute infarct. White matter hypodensity is nonspecifi c but suggestive of microvascular ischemic change. The ventricles and sulci demonstrate mild age-rela pat involutional changes. Impression: No significant change compared to the prior study. No acute intracranial abnormality. ACT 112: Negative or not required by law. Electronically signed by: Andrei Guillen M.D. 03/09/2024 1:39 PM
[2024-03-09 13:42] LABS: Influenza A virus by PCR Negative (Neg); Influenza B virus by PCR Negative (Neg); RSV by PCR Negative (Neg); SARS CoV2 RNA(COVID-19) Ceph NEGATIVE (Negative)
--- NOTE | 2024-03-09 14:42 | XRay Report ---
XR chest 1V portable HISTORY: Sepsis COMPARISON: Chest 02/26/2024. FINDINGS: No pneumothorax. No pleural effusions. The heart remains mildly enlarged. There are low jose g volumes. Perihilar interstitial thickening persists. No evidence for pulmonary edema. Patchy left b asilar densities have slightly progressed. A left-sided dual-chamber pacemaker. Spinal stimulator kenyon ds are again noted. IMPRESSION: 1. Patchy left basilar densities have slightly progressed. This could represent atelectasis or a pneu monia. 2. Stable myocardial mild cardiomegaly. 3. Mild perihilar interstitial thickening, unchanged. This could represent a viral process or develop ing congestive change. ACT 112: Negative or not required by law. Electronically signed by: Andrei Guillen M.D. 03/09/2024 2:40 PM
--- NOTE | 2024-03-09 14:46 | XRay Report ---
XR hip RT 2V w pelvis CLINICAL HISTORY: Right hip pain. COMPARISON: Right hip radiograph and CT of the abdomen and pelvis February 24, 2024. FINDINGS: Visualized portions of the left hip arthroplasty are intact. There is no proximal left fem oral fracture. No pelvic fractures are identified. There has been no change in alignment of the subac ibrahima nondisplaced right femoral periprosthetic fracture since prior radiographs. IMPRESSION: 1. No change in alignment of a subacute nondisplaced right femoral periprosthetic fracture. 2. No additional fractures within the pelvis or hips. 3. Status post bilateral hip arthroplasty. ACT 112: Negative or not required by law. Electronically signed by: Boyd Chandler M.D. 03/09/2024 2:45 PM
--- NOTE | 2024-03-09 15:13 | History & Physical Report ---
Date of Service March 09, 2024 Assessment & Plan (1) Severe sepsis: Plan: This is a 79 y/o male with recent right femoral fracture, in rehab at [facility], COPD, asthma, bronchiectasis, chronic respiratory failure on baseline O2 of 2-3L, HTN, HLD, sinus node dysfunction s/p pacemaker, CAD s/p balloon angioplasty (2017), BPH, and other history as outlined before who was sent to the ED today from [facility] with hypoxia and confusion. Initial work-up in the ED reveals an elevated WBC count of 15.21, initial lactate of 4.3, creatinine 1.46, and troponin 45.0. Chest x-ray shows patchy left basilar densities that have progressed from prior imaging. Pt was hypotensive, tachycardic, and tachypneic on presentation. He meets criteria for severe sepsis. Fluid resuscitation was initiated in the ED with improvement in BP and lactate. Cultures drawn and patient started on broad-spectrum antibiotics then referred for admission. Likely source of infection is hospital-acquired pneumonia - Admit to PCU - Continue Zosyn but will add vancomycin to cover for potential MRSA in view of recent hospitalization and currently in a SNF for rehab. - Check MRSA swab - Continue fluid resuscitation initiated in the ED - Blood culture pending, check sputum culture - Labs in the AM (2) Metabolic encephalopathy: Plan: Likely due to severe sepsis - monitory mental status with treatment for sepsis (3) Periprosthetic fracture around internal prosthetic right hip joint: Plan: Stable on imaging in the ED today - ortho saw patient last admission and recommended conservative management Eventual PT/OT evaluations once more stable (4) Elevated troponin: Plan: Likely related to demand from severe sepsis - will trend x 2. Denies chest pain at present (5) Pneumonia: Plan: Likely hospital-acquired in view of recent admission Sputum culture Zosyn/Vanco for now - MRSA swab ordered Oxygen as needed to maintain sats 88-90% (6) COPD (chronic obstructive pulmonary disease): Plan: Antibiotics as above Scheduled ipratropium/levalbuterol, prn DuoNebs Continue maintenance inhaler (7) CAD (coronary artery disease): Plan: Chronic, stable Continue outpatient regimen (8) HTN, goal below 130/80: Plan: Hypotensive due to severe sepsis so will hold amlodipine. Beta-kassie continued with holds in view of known CAD. Plan Pt seen and reviewed with collaborating physician, Dr. Nelson. Plan of care discussed and as outlined above. Code status: DNR/DNI DVT prophylaxis: heparin subQ Admit to PCU. If BP doesn't continue to improve with fluids or worsening, consider ICU. Grzegorz Jane PA-C History of Present Illness Chief Complaint: confusion, hypoxia Primary Care Provider: Guera Escudero MD This is a 79 y/o male with recent right femoral fracture, in rehab at [facility], COPD, asthma, bronchiectasis, chronic respiratory failure on baseline O2 of 2-3L, HTN, HLD, sinus node dysfunction s/p pacemaker, CAD s/p balloon angioplasty (2017), BPH, and other history as outlined before who was sent to the ED today from [facility] with hypoxia and confusion. He was admitted to [facility] 02/23-03/02/24 after a fall at home with resultant right femoral periprosthetic non- displaced fracture - no surgical intervention indicated at this time. Also noted to have a small associated intramuscular hematoma in the distal iliopsoas. Diagnosed with acute bronchitis during this admission - treated with doxycycline and prednisone taper. Discharged to [facility] for rehab, where it appears he initially was doing well. History from the patient is currently unreliable so [facility] records were reviewed for medications, events overnight, and his medical course last week. This morning, patient was noted to be more confused. BP was low at 100/palp, and he was hypoxic requiring 6L of oxygen to maintain sats in the low 90s so EMS was called. Currently in the ED, pt remains somewhat confused. He knows that he is in the hospital but is not sure why. He was looking for his in the bed when I walked in to see him. He reports that his breathing at present is "okay" but then had a coughing fit while speaking to me and had difficulty catching his breath. He states the cough is non-productive. Allergies Allergy/AdvReac Type Severity Reaction Status Date / Time adhesive Allergy Intermediate SKIN Verified 01/21/24 17:02 BLISTERS latex Allergy Unknown PER Verified 01/21/24 17:02 [facility] "PT DENIES" Home Medications Medication Instructions Recorded Confirmed Type acetaminophen 500 mg tablet 500 mg PO QID PRN Pain 03/06/23 03/09/24 History (Tylenol Extra Strength) amitriptyline 25 mg tablet 50 mg PO HS 03/06/23 03/09/24 History atorvastatin 80 mg tablet 80 mg PO DAILY 03/06/23 03/09/24 History clopidogrel 75 mg tablet 75 mg PO QAM 03/06/23 03/09/24 History duloxetine 30 mg capsule,delayed 30 mg PO QPM 03/06/23 03/09/24 History release duloxetine 60 mg capsule,delayed 60 mg PO QPM 03/06/23 03/09/24 History release finasteride 5 mg tablet 5 mg PO DAILY 03/06/23 03/09/24 History gabapentin 300 mg capsule 300 mg PO TID 03/06/23 03/09/24 History levothyroxine 75 mcg tablet 75 mcg PO DAILYBB 03/06/23 03/09/24 History nitroglycerin 0.4 mg sublingual 0.4 mg sublingual DIRECTED PRN 03/06/2303/09 History tablet Chest Pain pantoprazole 40 mg tablet,delayed 40 mg PO DAILY 03/06/23 03/09/24 History release umeclidinium 62.5 mcg-vilanterol 1 inh inhalation DAILY 01/21/24 03/09/24 History 25 mcg/actuation powdr for inhalation (Anoro Ellipta) metoprolol succinate 25 mg 50 mg (2 x 25 mg) PO QAM #60 tabs 01/27/24 03/09/24 Rx tablet,extended release 24 hr amlodipine 5 mg tablet (Norvasc) 5 mg PO QAM 30 days #30 tabs 03/02/24 03/09/24 Rx ipratropium 0.5 mg-albuterol 3 mg 3 ml inhalation Q6H PRN Shortness 03/02/24 03/09/24 Rx (2.5 mg base)/3 mL nebulization Of Breath #90 mL soln levalbuterol HCl 1.25 mg/3 mL 1.25 mg (3 mL) inhalation TID 7 03/02/24 03/09/24 Rx solution for nebulization days #63 mL lidocaine 5 % topical patch 1 patch transdermal QAM 10 days 03/02/24 03/09/24 Rx #15 ea mecobalamin (vitamin B12) 1,000 1,000 mcg PO DAILY #30 tabs 03/02/24 03/09/24 Rx mcg chewable tablet (B12 Active) cholecalciferol (vitamin D3) 25 25 mcg PO HS 03/09/24 03/09/24 History mcg (1,000 unit) capsule guaifenesin 600 mg tablet, 600 mg PO BID 03/09/24 03/09/24 History extended release 12 hr ipratropium bromide 0.02 % 1.25 ml inhalation TID 03/09/24 03/09/24 History solution for inhalation oxycodone 5 mg tablet 5 mg PO Q4H PRN Severe Pain (Scale 03/09/24 03/09/24 History Score 7-10) tamsulosin 0.4 mg capsule 0.4 mg PO HS 03/09/24 03/09/24 History tramadol 50 mg tablet 50 mg PO Q6H PRN Moderate Pain 03/09/24 03/09/24 History (Scale Score 5-6) Past Med/Surg History Problem List (Updated 03/09/24 @ 16:50 by Kasey Jane PA-C) Metabolic encephalopathy Elevated troponin Severe sepsis Acidosis, lactic (Acute) Hypoxia (Acute) Sepsis (Acute) Periprosthetic fracture around internal prosthetic right hip joint (Acute) Pneumonia (Acute) Non-ST elevation MT (NSTEMI) (Acute) Periprosthetic fracture around internal prosthetic right hip joint (Acute) Acute pain of right hip (Acute) Dyslipidemia, goal LDL below 70 HTN, goal below 130/80 AVNRT (AV pola re-entry tachycardia) Orthostatic hypotension BRENDA (obstructive sleep apnea) CAD (coronary artery disease) Anemia (Acute) BPH w urinary obs/LUTS Moderate persistent asthma ASCVD (arteriosclerotic cardiovascular disease) Closed femur fracture (Acute) PSVT (paroxysmal supraventricular tachycardia) DDD (degenerative disc disease), lumbar HTN (hypertension) Hypothyroidism Chronic right SI joint pain (Chronic) Atherosclerotic heart disease of cabazon coronary artery without angina pectoris (Acute) Chronic bronchitis (Acute) Diverticulosis of colon (Acute) Dyslipidemia (Acute) Major depressive disorder (Acute) Mediastinal adenopathy (Acute) Pulmonary nodule seen on imaging study (Acute) Sleep apnea (Acute) Vitamin D deficiency (Acute) Neuritis of left ulnar nerve (Chronic) Myofascial pain (Chronic) Emphysema of lung (Chronic) Intercostal neuralgia (Chronic) Lumbar post-laminectomy syndrome (Chronic) Hypothyroidism (Chronic) COPD (chronic obstructive pulmonary disease) (Chronic) BPH (benign prostatic hyperplasia) (Chronic) Carotid stenosis (Chronic) Diastolic dysfunction (Chronic) Pacemaker (Chronic) HTN (hypertension) (Chronic) HLD (hyperlipidemia) (Chronic) Depression (Chronic) RLS (restless legs syndrome) (Chronic) Medical History Zoster ophthalmicus Asthma, allergic Deep vein thrombosis of distal lower extremity 2020 Idiopathic scoliosis Chronic hip pain after total replacement of right hip joint 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 Post-thoracotomy pain syndrome Osteoarthritis of left knee Fingertip amputation History of left heart catheterization (LHC) SSS (sick sinus syndrome) DVT (deep venous thrombosis) (01/29/14) Chronic hypoxic respiratory failure Spinal cord stimulator status Surgical History History of total knee arthroplasty History of hip surgery Hx of cholecystectomy H/O knee surgery Status post insertion of spinal cord stimulator Family History Mother Heart disease Social History Smoking Status: Unknown if ever smoked Tobacco Type: Cigarettes Do You Dip or Chew Tobacco: No; Hx Alcohol Use: No Hx Substance Use: No Preferred Language: Tristanian Communication Ability: Effective 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: No Beliefs That Will Affect Care: None marital status: Current Living Situation: Spouse Current Living Situation Comment: Home with current occupational status: disabled Feels Safe at Home: Hesitant to Answer Assistive Devices: Cane, Stair Lift and Walker Review of Systems Review of Systems: All systems reviewed & are unremarkable except as noted in Subjective Physical Exam Physical Exam: General: awake, confused, slightly agitated HEENT: no scleral icterus, moist oral mucosa Neck: trachea midline Heart: regular but tachycardic Lungs: mildly diminished with left > right basilar crackles, no wheezing at present, no accessory muscle use Abdomen: soft, +BS Extremities: no pedal edema Neurologic: moving all extremities, no dysarthria, knows that he is at the hospital but unsure why Skin: warm, dry, no jaundice Results & Data Results & Data Vital Signs (Past 12 Hours) Vital Signs Temp Pulse Pulse Resp BP BP Pulse Ox 03/09/24 14:00 119 H 24 03/09/24 13:54 118 H 27 H 82 L 03/09/24 13:33 120 H 25 H 94 03/09/24 13:30 98/71 L 03/09/24 13:30 128 H 03/09/24 13:30 118 H 18 98/71 L 93 03/09/24 13:27 121 H 21 03/09/24 13:15 124 H 24 91 03/09/24 13:15 112 H 18 95/76 L 92 03/09/24 13:14 95/76 L 03/09/24 13:12 124 H 24 94 03/09/24 12:45 125 H 30 H 03/09/24 12:42 125 H 25 H 03/09/24 12:18 122 H 20 94 03/09/24 12:03 03/09/24 12:03 37.7 C H 124 H 22 86/72 L 96 O2 Del Method O2 Flow Rate 03/09/24 14:00 03/09/24 13:54 03/09/24 13:33 03/09/24 13:30 03/09/24 13:30 03/09/24 13:30 Nasal Cannula 2 03/09/24 13:27 03/09/24 13:15 03/09/24 13:15 Nasal Cannula 2 03/09/24 13:14 03/09/24 13:12 03/09/24 12:45 03/09/24 12:42 03/09/24 12:18 Nasal Cannula 6 03/09/24 12:03 Nasal Cannula 6 03/09/24 12:03 Nasal Cannula 6 Laboratory Results Lab Results 03/09/24 03/09/24 Range/Units 12:35 14:41 WBC 15.21 H (4.8-10.8) K/ul RBC 4.18 L (4.70-6.10) M/uL Hgb 13.3 L (14.0-18.0) g/dl Hct 40.5 L (42.0-52.0) % MCV 96.9 (80.0-100.0) fL MCH 31.8 (25.0-34.0) pg MCHC 32.8 (32.0-36.0) g/dL RDW Std Deviation 50.4 H (36.4-46.3) fL RDW Coeff of Jarrett 14.3 (11.5-14.5) % Plt Count 372 (130-400) K/uL MPV 10.6 (9.4-12.4) fL Immature Gran % (Auto) 0.5 % Neut % (Auto) 76.4 % Lymph % (Auto) 11.4 % Harper % (Auto) 10.3 % Eos % (Auto) 0.9 % Baso % (Auto) 0.5 % Neut # (Auto) 11.63 H (1.40-6.50) K/uL Lymph # (Auto) 1.74 (1.20-3.40) K/uL Harper # (Auto) 1.57 H (0.11-0.59) K/uL Eos # (Auto) 0.13 (0.00-0.50) K/uL Baso # (Auto) 0.07 (0.00-0.20) K/uL Immature Gran # (Auto) 0.07 (0.01-0.20) K/uL PT 11.0 (9.0-12.0) Seconds INR 1.0 (0.9-1.1) APTT 24 (21-31) Seconds PTT Ratio 0.9 VBG pH 7.35 L (7.36-7.41) VBG pCO2 55 H (38-50) mmHg VBG pO2 < 20 mmHg VBG HCO3 30 mmol/L VBG O2 Saturation < 60.0 % VBG Base Excess 3.2 mEq/L Sodium 138 (136-145) mmol/L Potassium 4.7 (3.5-5.1) mmol/L Chloride 101 (98-107) mmol/L Carbon Dioxide 27 (21-32) mmol/L Anion Gap 10 (3-11) BUN 24 H (6-23) mg/dl Creatinine 1.46 H (0.6-1.4) mg/dl Est Cr Clr Drug Dosing 44.5 ml/min Est GFR ( Amer) 52.6 ml/min Est GFR (Non-Af Amer) 45.4 ml/min BUN/Creatinine Ratio 16.4 (10-20) Glucose 152 H (70-99(Fasting)) mg/dl Lactate 4.3 H* 3.0 H* (0.4-2.0) mmol/L Calcium 9.6 (8.6-10.3) mg/dl Magnesium 2.3 (1.7-2.4) mg/dl Total Bilirubin 0.7 (0.2-1.0) mg/dl Direct Bilirubin 0.1 (0-0.2) mg/dl AST 17 (13-39) U/L ALT 15 (7-52) U/L Alkaline Phosphatase 105 H (34-104) U/L Troponin I High Sens 45.0 H (0-20) pg/ml B-Natriuretic Peptide 215 H (0-100) pg/ml Total Protein 7.0 (6.0-8.3) gm/dl Albumin 4.0 (3.4-5.0) gm/dl Procalcitonin 0.09 (0-0.5) ng/ml SARS-CoV-2 (PCR) NEGATIVE (Negative) Influenza Type A (PCR) Negative (Neg) Influenza Type B (PCR) Negative (Neg) RSV (RT-PCR) Negative (Neg) Diagnostic Findings Chest X-Ray 03/09/24 12:18 XR chest 1V portable HISTORY: Sepsis COMPARISON: Chest 02/26/2024. FINDINGS: No pneumothorax. No pleural effusions. The heart remains mildly enlarged. There are low lung volumes. Perihilar interstitial thickening persists. No evidence for pulmonary edema. Patchy left basilar densities have slightly progressed. A left-sided dual-chamber pacemaker. Spinal stimulator leads are again noted. IMPRESSION: 1. Patchy left basilar densities have slightly progressed. This could represent atelectasis or a pneumonia. 2. Stable myocardial mild cardiomegaly. 3. Mild perihilar interstitial thickening, unchanged. This could represent a viral process or developing congestive change. ACT 112: Negative or not required by law. Electronically signed by: Andrei Guillen M.D. 03/09/2024 2:[address] 03/09/24 12:[address] DOSE: 625.8 mGy.cm HISTORY: Altered mental status TECHNIQUE: Multiaxial CT images of the head were performed without the use of intravenous contrast. Automated exposure control was utilized for this study. A dose lowering technique was utilized adhering to the principles of ALARA. Comparison: Head CT 02/25/2024. Findings: The paranasal sinuses and mastoid air cells are clear. The calvarium and skull base are intact. There is no mass, hematoma, midline shift, acute infarct. White matter hypodensity is nonspecific but suggestive of microvascular ischemic change. The ventricles and sulci demonstrate mild age-related involutional changes. Impression: No significant change compared to the prior study. No acute intracranial abnormality. ACT 112: Negative or not required by law. Electronically signed by: Andrei Guillen M.D. 03/09/2024 1:39 PM Hip/Pelvis X-Ray 03/09/24 12:18 XR hip RT 2V w pelvis CLINICAL HISTORY: Right hip pain. COMPARISON: Right hip radiograph and CT of the abdomen and pelvis February 24, 2024. FINDINGS: Visualized portions of the left hip arthroplasty are intact. There is no proximal left femoral fracture. No pelvic fractures are identified. There has been no change in alignment of the subacute nondisplaced right femoral periprosthetic fracture since prior radiographs. IMPRESSION: 1. No change in alignment of a subacute nondisplaced right femoral periprosthetic fracture. 2. No additional fractures within the pelvis or hips. 3. Status post bilateral hip arthroplasty. ACT 112: Negative or not required by law. Electronically signed by: Boyd Chandler M.D. 03/09/2024 2:45 PM Medications Administered Discontinued Medications Sodium Chloride (Nss) 1,000 mls @ 999 mls/hr IV .Q1H1M ONE Stop: 03/09/24 14:09 Last Admin: 03/09/24 13:14 Dose: 999 mls/hr Documented By: MAHAMED Piperacillin Sod/Tazobactam Sod (Zosyn) 4.5 gm in 100 mls @ 200 mls/hr IV NOW ONE Stop: 03/09/24 13:38 Last Admin: 03/09/24 13:29 Dose: 200 mls/hr Documented By: MAHAMED Supervising Physician Co-Signing Physician Notes 79 yo M w/ PMH of recent right femoral fracture, in rehab at [facility], COPD, asthma, bronchiectasis, chronic respiratory failure on baseline O2 of 2-3L, HTN, HLD, sinus node dysfunction s/p pacemaker, CAD s/p ballon angioplasty (2017), BPH who was sent to the ED today from [facility] with hypoxia and confusion. Pt oriented to self, no aware where he is now and why he is here. He was recently admitted at [facility] 02/23- 03/02 after a fall w/ resultant right femoral periprosthetic non-displaced fracture (Ortho evaled, conservative Mx recommended] and was also treated for acute bronchitis. Pt was requiring upto 6 L NC O2 at presentation, BP was soft/low, pt was confused, denied chest pain, reported right hip pain. Lab reviewed, WBC elevated, creatinine elevated, lactate elevated, troponin flat trend/minimally elevated, trend troponin x 2. CXR with concern of left lower lobe pneumonia. Active problems: Severe sepsis POA secondary to likely hosp acquired pneumonia: Heart rate/pulse rate/lactate elevated. Continue with Zosyn, add vanco. continue fluid per sepsis protocol at 30 mL/kg w/in first 3 hours. Maintenance fluid rate based on BP response after initial fluid resuscitation. send blood culture, send sputum culture. Hold BP meds. If blood pressure does not improve after initial fluid resuscitation, consider ICU transfer. Add probiotic. Nebs. Metabolic encephalopathy: Likely secondary to severe sepsis. CT Head w/ no acute finding. Continue to monitor. On exam: GENERAL: Alert and oriented x3. NAD, on 2L NC O2. appears ill/frail/weak. HEENT: No pallor, no icterus. Pupils equal, round and reactive to light. Oral mucosa dry. NECK: No JVD, no neck masses. HEART: S1 and S2 heard. Regular rate and rhythm. Tachycardia in 110s. No murmur, no gallop. RESPIRATORY SYSTEM: Normal AP diameter. No accessory muscle use. No wheezing, L > R basal crackles. ABDOMEN: Soft, bowel sounds present, nontender, no distention. CENTRAL NERVOUS SYSTEM: No facial droop. Speech is clear. Obeys simple commands. Moves extremities. EXTREMITIES: No edema, no erythema seen. I have seen and examined the patient and have discussed the case with the provider above. I agree with the assessment and plan as stated. (3) Periprosthetic fracture around internal prosthetic right hip joint Encounter type: subsequent encounter Qualified Code(s): M97.01XD - Periprosthetic fracture around internal prosthetic right hip joint, subsequent encounter (5) Pneumonia Laterality: unspecified laterality Lung location: unspecified part of lung Pneumonia type: due to unspecified organism Qualified Code(s): J18.9 - Pneumonia, unspecified organism (6) COPD (chronic obstructive pulmonary disease) COPD type: unspecified COPD Qualified Code(s): J44.9 - Chronic obstructive pulmonary disease, unspecified (7) CAD (coronary artery disease) Associated angina: without angina Coronary Disease-Associated Artery/Lesion type: cab[place] artery [place] vs. transplanted heart: cabazon heart Qualified Code(s): I25.10 - Atherosclerotic heart disease of cabazon coronary artery without angina pectoris
[2024-03-09] MEDS ORDERED: VANCOMYCIN CONSULT ACTIVE PRN (15:53)
[2024-03-09] MEDS ORDERED: VANCOMYCIN HCL 1,750 MG in SODIUM CHLORIDE 0.9% 500 ML IV ONE (15:53)
[2024-03-09] MEDS: SODIUM CHLORIDE 0.9% 500 ML IV ONE (16:11)
[2024-03-09] MEDS: VANCOMYCIN HCL 2,000 MG in SODIUM CHLORIDE 0.9% 500 ML IV STA (16:18)
--- OUTSIDE RECORDS SUMMARY | 2024-03-09 18:10 | External Medical Summary ---
Author Name Unknown Address Unknown Organization [id number]:[facility] [address] [place] [address] Laboratory Report Ordering Provider Test Date Status STEVEN KEN 03/04/2024 05:28:00 Final Observation Date Value Abnormality Reference (Units ) Status WBC, Total 03/04/2024 05:28:00 7.55 4.00-10.8 0 (K/uL) Final RBC 03/04/2024 05:28:00 3.71 4.50-5.25 (M/uL) Final Hemoglobin 03/04/2024 05:28:00 11.9 Below low normal 14 .0-16.8 (g/dL) Final HCT 03/04/2024 05:28:00 36.3 Below low normal 40. 0-48.4 (%) Final MCV 03/04/2024 05:28:00 97.8 82.0-99.5 (fL) Final MCH 03/04/2024 05:28:00 32.1 27.0-34.0 (pg) Final MCHC 03/04/2024 05:28:00 32.8 32.0-36.0 (g/dL) Final RDW 03/04/2024 05:28:00 14.2 11.5-15.5 (%) Final Platelets 03/04/2024 05:28:00 298 140-400 (K /uL) Final MPV 03/04/2024 05:28:00 10.0 6.6-11.1 ( fL) Final Performing Location [facility] [address] [place] [address]
--- OUTSIDE RECORDS SUMMARY | 2024-03-09 18:10 | External Medical Summary ---
Author Name Unknown Address Unknown Organization K0G:[facility] [address] [place] [address] Laboratory Report Ordering Provider Test Date Status STEVEN KEN 03/04/2024 05:28:00 Final Observation Date Value Abnormality Reference (Units ) Status SYNC LEUKOCYTES IN BLOOD BY AUTOMATED COUNT 03/04/2024 05:28:00 7.55 4.00-10.80 (K/uL) Final Segs 03/04/2024 05:28:00 62.1 40.0-75.0 (%) Final Lymphs % 03/04/2024 05:28:00 24.1 18.0-42.0 (%) Final Monos 03/04/2024 05:28:00 12.1 Above high normal 1.0-11.0 (%) Final Eosinophils 03/04/2024 05:28:00 1.7 0.0-6.0 (%) Final Basos 03/04/2024 05:28:00 0.0 0.0-2.0 (%) Final Absolute Segs 03/04/2024 05:28:00 4.69 1.80-7.70 (K/uL) Final Lymphs, absolute 03/04/2024 05:28:00 1.82 1.00-4.80 (K/ul) Final Monos, Abs 03/04/2024 05:28:00 0.91 0.00-1.10 (K/uL) Final Eos, Abs 03/04/2024 05:28:00 0.13 0.00-0.70 (K/uL) Final Basos, Abs 03/04/2024 05:28:00 0.00 0.00-0.20 (K/uL) Final Performing Location [facility] [place] [address]
--- OUTSIDE RECORDS SUMMARY | 2024-03-09 18:10 | External Medical Summary ---
Author Name Unknown Address Unknown Organization [id number]:[facility] [place] - [address] [place] [address] Laboratory Report Ordering Provider Test Date Status STEVEN KEN 03/04/2024 05:28:00 Final Deficient: <20 ng/mL
Ins ufficient: 20-29 ng/mL
Recommended/Optimum:30-50 ng/mL

Vitamin D intoxication is rare. If suspicious of Vitamin D toxicity, evaluation of serum Calcium and PTH is recommended. Observation Date Value Abnormality Reference (Units ) Status 25-OH Vitamin D total 03/04/2024 05:28:00 20 >19 (ng/mL) Final Performing Location [facility] - [address] [place] [address]
--- OUTSIDE RECORDS SUMMARY | 2024-03-09 18:10 | External Medical Summary | Summary of Care ---
Author Name Unknown Organization [facility] Address [address] [place] [address] Phone [phone] Care Team Providers Care Shaker Washer Name Role Phone Guera Jay MD Primary Care Prov ider Encounter Details Date Type Department Care Team (Late st Contact Info) Description 03/05/2024 12:30 PM EDT Scheduled Telephone Care Coordination and Integration [address], [place] [phone] Ryne Connor [facility] Housing Director [address] [place], [place] [phone] Allergies Active Allergy Reactions Criticality Noted Date Comments Adhesive Tape Other (Please comment) Low 03/09/2009 Affected area blisters. Latex 11/23/2014 Patient denies this allergy documented as of this encounter (statuses as of 03/05/2024) Medications Medication Sig Dispensed Refills Start Date End Date Status Flutter DeviceIndications:B ronchiectasis without complication (HCC) Use for 10 min twice daily. pretreat with albuteorl. 1 Each 04/25/2022 Active Anoro Ellipta 62.5-25 MCG/ACT Inhalation Aerosol Powder Breath Activated (umeclidinium-vilan terol) Inhale 1 Puff by mouth in the morning. 30 Each 5 12/04/2022 Active Levothyroxine Sodium 75 MCG Oral Tablet [...] 75 MG Oral Tablet (pLAVix)Indications :Atherosclerosis of [place] coronary artery of [place] heart with angina pectoris (HCC) Take 1 [...] by mouth in the morning. 01/27/2024 Active traMADol HCl 50 MG Oral Tablet (Ultram) Take 1 Tablet by mouth every 6 hours as needed for Pain, Severe or Pain, Moderate. 40 Tablet 03/02/2024 Active oxyCODONE HCl 5 MG Oral Tablet (Oxy IR) Take 1 Tablet by mouth every 4 hours as needed for Pain, Severe. 40 Tablet 03/03/2024 Active Acetaminophen 325 MG Oral Tablet (Tylenol) Take 2 Tablets by mouth every 4 hours as needed for Fever >38C(100.5F) or Pain, Mild. 03/03/2024 Active amLODIPine Besylate 5 MG Oral Tablet (Norvasc) Take 1 Tablet by mouth in the morning. 03/03/2024 Active guaiFENesin ER 600 MG Oral Tablet Extended Release 12 Hour (Mucinex) Take 1 Tablet by mouth in the morning and 1 Tablet before bedtime. Take with plenty of water. Do not cut, crush or chew. 03/03/2024 Active Ipratropium [place] 0.02 % Inhalation Solution (Atrovent) Inhale 1.25 mL via nebulizer in the morning and 1.25 mL at noon and 1.25 mL before bedtime. 03/03/2024 Active Levalbuterol HCl 1.25 MG/3ML Inhalation Nebulization Solution (Xopenex) Inhale 1 Ampule via nebulizer in the morning and 1 Ampule at noon and 1 Ampule in the evening. 03/03/2024 Active predniSONE 20 MG Oral Tablet (Deltasone) Take 1 Tablet by mouth in the morning. 03/03/2024 Active Doxycycline Hyclate 100 MG Oral Capsule Take 1 Capsule by mouth in the morning and 1 Capsule before bedtime. 03/03/2024 Active Lidocaine 4 % External Patch (Lidocaine Pain Relief) Place 1 Patch over 12 hours topically on the skin daily. 03/03/2024 Active Vitamin B-12 1000 MCG Oral Tablet (Cyanocobalamin) Take 1 Tablet by mouth in the morning. 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 Pain managed through [facility] pain clinic. 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 12/22 Overview: CO-M2 [place] Last Assessment & Plan: Follows with GI [...] as of this encounter (statuses as of 03/05/2024) Resolved Problems Problem Noted Date Diagnosed Date [...] abdomen and [facility] [place] Scheduling to fax orders. Chronic obstructive pulmonary disease 07/18/2022 08/08/2022 Overview: Per COPD GOLD Classification Last Assessment & Plan: COPD "RED FLAG" COPD symptoms: o Increased shortness of breath at rest ("I struggle to breathe even when watching TV", "I have to wear or turn up my oxygen just when I'm sitting on the couch") Medication Regimen o Class D - Inhaled Dnvffnujwtthqv-VOJO-NOIP Combination Inhaler (Parveenlldebray) Exacerbation Mgt: o Rescue Kit in place [...] 01/22/2019 07/29/2020 Coronary artery disease invo lving [place] coronary artery of [place] heart without angina pectoris 09/19/2017 10/31/2021 Overview: W/ angina on [place] (actinic keratosis) 01/23/201710/24 Bradycardia 06/14/2016 09/19/2017 Essential hypertension with goal blood pressure less than 140/90 10/31/2015 07/04/2022 Last Assessment & Plan: bp stable-not on meds Monitor Chronic cholecystitis 03/10/20092010 ACTIVE CASE MANAGEMENT 03/07/200904/10 Overview: Chela Morris, RN [phone] Other specified hypothyroidism 03/01/2008 08/16/2016 Overview: TSH [...] MEDICATION USE AGREEMENT 09/2010 Overview: Dr Parra [facility] Beta-hakan intolerance documented as of this encounter (statuses as of 03/05/2024) Immunizations Name Administration Dates Next Due COVID-19 mRNA, LNP-s, No Pre serve, 2-Dose Series (Passbox) 10/13/2020,09/22/2020 Pneumococcal Conjugate Vacc, 13 Valent (Prevnar) [...] No 01/29/2024 Are you (or your family) puspha eless or worried that you might be [...] as of this encounter Progress Notes * Gladis Beach RN - 03/05/2024 1:42 PM EDT Noted * Ryne Connor Community Health Housing Director - 03/05/2024 12:15 PM EDT Telemedicine visit: No Community Health Housing Director (MAGDIEL) documentation: CHW follow up phone call for RNCM and reached the patient's voicemail. CHW left a brief message with the RNCM's callback information. Ryan Connor Community Health Worker Lead Allie Vanleer [phone] Electronically signed by Ryne Connor [facility] Housing Director at 03/05/2024 12:17 PM EDT documented in this encounter Plan of Treatment Upcoming Encounters Date Type Department Care Team (Late st Contact Info) Description 04/06/2024 3:00 PM EDT Nurse Only Ancillary [address] [place] [address] Gamal, Nurse [address] [place] [phone] 04/21/2024 11:15 AM EDT [facility] [place] [address] Maude Pierce, [address] [place] [address] 06/22/2024 1:40 PM EST Office Visit Dermatology [address] [place] [address] Nia Hong PA-C [address] [place] [address] [place] [address] 08/13/2024 11:30 AM EST Office Visit Cardiology [address] [place] [address] Reji Mendez PA-C [address] [place] [address] 12/21/2024 9:00 AM EDT Office Visit Family Medicine [address] [place] [phone] Guera Jay MD [address] [place] [address] [place] [address] Health Maintenance Due Date Last Done Comments Alpha-1 Antitrypsin 02/06/1963 Adult Wellness Visit 02/06/2012 Colonoscopy 08/30/2021 08/30/2016 TSH 01/10/2024 01/09/2023, 12/22, 11/14/2022, Additional history exists COVID-19 Vaccine ( season) 2024 10/13/2020, 09/22/2020 Influenza Vaccine (FLU shot) (#1) 2024 06/19/2023, [...] this encounter Medical Devices Implanted Type Area Automobile Taillight Assembler Device Identifier Shelf Expiration Date Model / Serial / Lot Femoral Nail Retrograde Implanted:Qty: 1 on 10/04/2022 by Donell Landry Jr., MD at [place] [facility] Left: Knee ANGEL 02/18/2031 [id number] / / [id number] Screw Nlk A3 Ti 4.5x36mm - [id number] Implanted:Qty: 1 on 10/04/2022 by Donell Landry Jr., MD at OR [facility] ANGEL : TRAUMA [id number] / / 5.0 Compression Plate Implanted:Qty: 1 on 10/04/2022 by Donell Landry Jr., MD at OR [facility] ANGEL [id number] / / Screw T2 Alpha Adv Lck 5x85 - [id number] Implanted:Qty: 1 on 10/04/2022 by Donell Landry Jr., MD at OR [facility] Left: Knee ANGEL : TRAUMA 07/24/2031 2361-5085S / / [id number] Screw T2 Alpha Adv Lck 5x65 - [id number] Implanted:Qty: 1 on 10/04/2022 by Donell Landry Jr., MD at OR [facility] Left: Knee ANGEL : TRAUMA 07/24/2032 2361-5065S / / [id number] Screw T2 Alpha Adv Lck 5x85 - [id number] Implanted:Qty: 1 on 10/04/2022 by Donell Landry Jr., MD at OR [facility] Left: Knee ANGEL : TRAUMA 02/22/2032 2361-5085S / / [id number] Screw T2 Alpha Lock 5x35mm - [id number] Implanted:Qty: 1 on 10/04/2022 by Donell Landry Jr., MD at OR [facility] Left: Knee ANGEL : TRAUMA 07/24/2032 2360-5035S / / [id number] Screw Gina Lk A3 Ti 5x12mm - [id number] Implanted:Qty: 1 on 10/04/2022 by Donell Landry Jr., MD at OR [facility] ANGEL : TRAUMA [id number] / / Screw Gina Lk A3 Ti 5x16mm - [id number] Implanted:Qty: 1 on 10/04/2022 by Donell Landry Jr., MD at OR [facility] ANGEL : TRAUMA [id number] / / Washer For 2.4mm/2.7mm/3.5m m - [id number] Implanted:Qty: 2 on 10/04/2022 by Donell Landry Jr., MD at OR [facility] ANGEL : TRAUMA [id number] / / Screw Nlk V2 T10 Ft 3.5x28mm - [id number] Implanted:Qty: 2 on 10/04/2022 by Donell Landry Jr., MD at OR [facility] ANGEL : TRAUMA [id number] / / documented as of this encounter Advance Directives Documents on File Type Date Recorded Patient Detasseling Crew Supervisor Expl anation Advance Directives and Living Will 10/03/2022 ADVANCE DIRECTIVE / LIVING WILL Power of Vacuum Drier Operator 10/03/2022 POWER OF A TTORNEY * [...] Power of Attor mel? No Care Teams Shaker Washer Relationship Specialty Start Date End Date Guera Jay MD [address] [place] [address] [place] [phone] PCP - General Family Medicine 06/19/23 documented as of this encounter
--- OUTSIDE RECORDS SUMMARY | 2024-03-09 18:10 | External Medical Summary | Continuity Of Care Document ---
Author Name Unknown Address [address] [place] [address] Organization [facility] ( ) Care Team Providers Care Seafood And Service Meat Manager Name Role Phone Dinora Franklin Primary Care Provider [phone] Problems Code Description Start Date End Date Status R55. Syncope and collapse 03/02/2024 Acti ve W19.XXXA Unspecified fall, initial encounter 03/02/2024 Active M97.01XD Periprosthetic fract ure around internal prosthetic right hip joint, subsequent encounter 03/02/2024 Active J44.9 Chronic obstructive pulmonary disease, unspecified 03/02/2024 Active J45.909 Unspecified asthma, uncomplicated 03/02/2024 Active J47.9 Bronchiectasis, uncomplicated 03/02/2024 Active J96.10 Chronic respiratory failure, unspecified whether with hypoxia or hypercapnia 03/02/2024 Acti ve I10. Essential (primary) hypertension 03/02/2024 Active E78.5 Hyperlipidemia, unspecified 03/02/2024 00 Active K21.9 Gastro-esophageal re flux disease without esophagitis 03/02/2024 Active N40.1 Benign prostatic hyp erplasia with lower urinary tract symptoms 03/02/2024 Active G25.81 Restless legs syndrome 03/02/2024 Ac tive I49.5 Sick sinus syndrome 03/02/2024 Activ e Z95.0 Presence of cardiac pacemaker 03/02/2024 Active I25.10 Atherosclerotic hear t disease of [place] coronary artery without angina pectoris 03/02/2024 Active Z98.61 Coronary angioplasty status 03/02/2024 00 Active I47.10 Supraventricular tachycardia, unspecified 03/02/0000 Active M54.50 Low back pain, unspecified 03/02/2024000 0 Active VITAL SIGNS Date Time Diastolic blood pressure Systolic blood pressure Body height Body weight Temperature SpO2 Blood Sugar Pulse Respirations 58823 909 80486 5 75.00 mm[Hg] - Sitting 166.00 mm[Hg] - Sitting 70 NI 98.60 Oral 90.00 % 88.00/ min 24.00/min 45022 910 70049 0 98188 910 73823 2 193.00 NI 910 31015 8 77.00 mm[Hg] - Sitting 137.00 mm[Hg] - Sitting 97.50 Ear 92.00 % 70.00/ min 20.00/min 61040 911 49174 0 89.00 mm[Hg] - Lying Down 171.00 mm[Hg] - Lying Down 96.30 Ear 92.00 % 76.00/ min 20.00/min 83357 911 82408 1 90.00 mm[Hg] - Lying Down 185.00 mm[Hg] - Lying Down 96.90 Ear 83.00/ min 20.00/min 46047 911 40139 6 90.00 mm[Hg] - Lying Down 185.00 mm[Hg] - Lying Down 96.90 Ear 83.00/ min 20.00/min 81558 912 61437 0 55538 912 35414 5 90.00 mm[Hg] - Sitting 185.00 mm[Hg] - Sitting 96.90 Ear 83.00/ min 20.00/min 05438 912 07641 7 98.70 Oral 50317 912 45469 5 98.70 Oral 40969 912 89929 7 75.00 mm[Hg] - Lying Down 135.00 mm[Hg] - Lying Down 98.10 X-Other 80.00/ min 20.00/min 78599 912 95485 8 90.00 mm[Hg] - Sitting 151.00 mm[Hg] - Sitting 96.60 Oral 92.00 % 73.00/ min 16.00/min 98042 912 27631 0 Immunizations Vaccine Date Status COVID-19 09/15/2020 Completed COVID-19 10/06/2020 Completed Influenza 04/17/2022 Completed (PCV13)Pneumococcal 08/16/2014 Completed (PPSV23)Pneumococcal 05/26/1996 Completed (PPSV23)Pneumococcal 04/13/2004 Completed (PPSV23)Pneumococcal 06/30/2012 Completed Shingles 08/19/2021 Completed Shingles 12/19/2021 Completed Tetanus 08/13/2009 Completed TDaP 08/28/2007 Completed
--- OUTSIDE RECORDS SUMMARY | 2024-03-09 18:10 | External Medical Summary | Summary of Care ---
Author Name Unknown Organization [facility] Address [address] [place] [address] Phone [phone] Care Team Providers Care Director Recreation Name Role Phone Guera Jay MD Primary Care Prov ider Encounter Details Date Type Department Care Team (Late st Contact Info) Description 03/05/2024 12:30 PM EDT Scheduled Telephone Care Coordination and Integration [address], [place] [phone] Ryne Connor [facility] Vacuum Applicator Operator [address] [place], [place] [phone] Allergies Active Allergy Reactions Criticality Noted Date [...] 75 MG Oral Tablet (pLAVix)Indications :Atherosclerosis of [place] coronary artery of [place] heart with angina pectoris (HCC) Take 1 [...] cut, crush or chew. 03/03/2024 Active Ipratropium [place] 0.02 % Inhalation Solution (Atrovent) Inhale 1.25 [...] meds at length -albuterol rx sent to [facility] -Use Advair BID -has rescue kit -CXR, exercise pulse ox -f/u t/c and home visit next week -needs pulm f/u Mediastinal adenopathy 04/25/2022 Chronic back pain greater than 3 months duration 04/17/2022 Hx of actinic keratosis 10/24/2020 Cervical spinal stenosis 01/27/2020 Atherosclerosis of [place] co ronary artery of [place] heart with stable angina pectoris 10/02/2019 Overview: [...] esophagus determined by endoscopy 12/22 Overview: CO-M2 [place] Last Assessment & Plan: Follows with GI [...] [facility] [place] Scheduling to fax orders. Chronic obstructive pulmonary disease 07/18/2022 08/08/2022 Overview: Per COPD GOLD Classification Last Assessment & Plan: COPD "RED FLAG" COPD symptoms: o Increased shortness of breath at rest ("I struggle to breathe even when watching TV", "I have to wear or turn up my oxygen just when I'm sitting on the couch") Medication Regimen o Class D - Inhaled Tyhxfsyktedtsu-YCRL-DJTR Combination Inhaler (Parveenlldebray) Exacerbation Mgt: o Rescue [...] 01/22/2019 07/29/2020 Coronary artery disease invo lving [place] coronary artery of [place] heart without angina pectoris 09/19/2017 10/31/2021 Overview: W/ angina on [place] (actinic keratosis) 01/23/201710/24 Bradycardia 06/14/2016 09/19/2017 Essential hypertension with goal blood pressure less than 140/90 10/31/2015 07/04/2022 Last Assessment & Plan: bp stable-not on meds Monitor Chronic cholecystitis 03/10/20092010 ACTIVE CASE MANAGEMENT 03/07/200904/10 Overview: Chela Morris, RN [phone] Other specified hypothyroidism 03/01/2008 08/16/2016 Overview: TSH [...] mRNA, LNP-s, No Pre serve, 2-Dose Series (Cinpost) 10/13/2020,09/22/2020 Pneumococcal Conjugate Vacc, 13 Valent (Prevnar) [...] of this encounter Progress Notes * Ryne Connor [facility] Vacuum Applicator Operator - 03/05/2024 12:15 PM EDT Telemedicine visit: No Community Health Vacuum Applicator Operator (MAGDIEL) documentation: CHW follow up phone call for RNCM and reached the patient's voicemail. CHW left a brief message with the RNCM's callback information. Ryan Connor Community Health Worker Lead PURA Holcomb [phone] documented in this encounter Plan of Treatment Upcoming Encounters Date Type Department Care Team (Late st Contact Info) Description 04/06/2024 3:00 PM EDT Nurse Only Ancillary [address] [place] [address] Gamal, Nurse Annual Wellness [address] [place] [address] [place] [address] 04/21/2024 11:15 AM EDT Office Visit Cardiology, [facility] [address] [place] [address] Maude Pierce, [address] [place] [address] 06/22/2024 1:40 PM EST Office Visit Dermatology [address] [place] [address] Nia Hong PA-C [address] [place] [address] [place] [address] 08/13/2024 11:30 AM EST Office Visit Cardiology [address] [place] [address] Reji Mendez PA-C [address] [place] [address] 12/21/2024 9:00 AM EDT Office Visit Family Medicine [address] [place] [phone] Guera Jay MD [address] [place] [address] [place] [address] Health Maintenance Due Date Last Done Comments [...] this encounter Medical Devices Implanted Type Area Stage Rigger Device Identifier Shelf Expiration Date Model / Serial / Lot Femoral Nail Retrograde Implanted:Qty: 1 on 10/04/2022 by Donell Landry Jr., [place] [facility] [place]: Knee ANGEL 02/18/2031 2339-1128S / / [id number] Screw Nlk A3 Ti 4.5x36mm - [id number] Implanted:Qty: 1 on 10/04/2022 by Donell Landry Jr., [place] [facility]GEL : TRAUMA [id number] / / 5.0 Compression Plate Implanted:Qty: 1 on 10/04/2022 by Donell Landry Jr., [place] [facility] [place] [place]GEL [id number] / / Screw T2 Alpha Adv Lck 5x85 - [id number] Implanted:Qty: 1 on 10/04/2022 by Donell Landry Jr., [place] [facility] [place] [place]: Knee ANGEL : TRAUMA 07/24/2031 2361-5085S / / [id number] Screw T2 Alpha Adv Lck 5x65 - [id number] Implanted:Qty: 1 on 10/04/2022 by Donell Landry Jr., [place] [facility] [place] [place]: Knee ANGEL : TRAUMA 07/24/2032 2361-5065S / / [id number] Screw T2 Alpha Adv Lck 5x85 - [id number] Implanted:Qty: 1 on 10/04/2022 by Donell Landry Jr., [place] [facility] [place]: Knee ANGEL : TRAUMA 02/22/2032 2361-5085S / / [id number] Screw T2 Alpha Lock 5x35mm - [id number] Implanted:Qty: 1 on 10/04/2022 by Donell Landry Jr., [place] [facility] [place]: Knee ANGEL : TRAUMA 07/24/2032 2360-5035S / / [id number] Screw Gina Lk A3 Ti 5x12mm - [id number] Implanted:Qty: 1 on 10/04/2022 by Donell Landry Jr., [place] [facility] [place] [place]GEL : TRAUMA [id number] / / Screw Gina Lk A3 Ti 5x16mm - [id number] Implanted:Qty: 1 on 10/04/2022 by Donell Landry Jr., [place] [facility] [place] [place]GEL : TRAUMA [id number] / / Washer For 2.4mm/2.7mm/3.5m m - [id number] Implanted:Qty: 2 on 10/04/2022 by Donell Landry Jr., [place] [facility] [place]GEL : TRAUMA [id number] / / Screw Nlk V2 T10 Ft 3.5x28mm - [id number] Implanted:Qty: 2 on 10/04/2022 by Donell Landry Jr., [place] [facility] [place] [place]GEL : TRAUMA [id number] / / documented as of this encounter Advance Directives Documents on File Type Date Recorded Patient Merchandise Worker Expl anation Advance Directives and Living Will 10/03/2022 ADVANCE DIRECTIVE / LIVING WILL Power of Cone Examiner 10/03/2022 POWER OF A TTORNEY * Full [...] of Attor mel? No Care Teams Director Recreation Relationship Specialty Start Date End Date Guera Jay MD [address] [place] [address] [place] [address] PCP - General Family Medicine 06/19/23 documented as of this encounter
--- OUTSIDE RECORDS SUMMARY | 2024-03-09 18:10 | External Medical Summary | Summary of Care ---
Author Name Unknown Organization [facility] Address [address] [place] [address] Phone [phone] Care Team Providers Care Learning Disabled Teacher Name Role Phone Guera Jay MD Primary Care Prov ider Reason for Visit * Reason Onset Date Comments Skilled Visit 03/05/2024 Encounter Details Date Type Department Care Team (Latest Contact Info) Description 03/05/2024 9:00 AM EDT Jail Visit [facility] [address] [place] [address] Marivel Casanova PA-C [address] [place] [address] Periprosthetic fracture around internal prosthetic right hip joint, subsequent encounter*; Granulomatous lung disease (HCC); 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); Chronic diastolic congestive heart failure (HCC) Allergies Active Allergy Reactions Criticality Noted Date [...] 3 DOSES IN 15 MINUTES 25 Tablet 07/22/2023 Active Additional Information Patient not taking.Reported on 01/21/2024 DULoxetine HCl 60 MG Oral Capsule Delayed Release Particles (Cymbalta)Indicatio ns:Current moderate episode of major depressive disorder without prior episode (HCC),Work related injury TAKE ONE CAPSULE BY MOUTH EVERY EVENING 90 Capsule 3 08/16/2023 Active Clopidogrel Bisulfate 75 MG Oral Tablet (pLAVix)Indications :Atherosclerosis of northway coronary artery of northway heart with angina pectoris (HCC) Take 1 [...] cut, crush or chew. 03/03/2024 Active Ipratropium Brewer 0.02 % Inhalation Solution (Atrovent) Inhale 1.25 [...] meds at length -albuterol rx sent to [place] [facility] -Use Advair BID -has rescue kit -CXR, exercise pulse ox -f/u t/c and home visit next week -needs pulm f/u Mediastinal adenopathy 04/25/2022 Chronic back pain greater than 3 months duration 04/17/2022 Hx of actinic keratosis 10/24/2020 Cervical spinal stenosis 01/27/2020 Atherosclerosis of northway co ronary artery of northway heart with stable angina pectoris 10/02/2019 Overview: [...] 1984 and 2006. Pain managed through [facility] pain clinic. 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 Pt to use OSH [facility] in [place]. Scheduling to fax orders. Chronic obstructive pulmonary disease 07/18/2022 08/08/2022 Overview: Per COPD GOLD Classification Last Assessment & Plan: COPD "RED FLAG" COPD symptoms: o Increased shortness of breath at rest ("I struggle to breathe even when watching TV", "I have to wear or turn up my oxygen just when I'm sitting on the couch") Medication Regimen o Class D - Inhaled [id number]-[id number] Combination Inhaler (Trellegy) Exacerbation Mgt: o Rescue Kit in place in Medication List: Yes. o Used rescue kit in the past month: No o Required IM or IV steroids (Solumedrol) since last visit: No Current exacerbation. Rescue kit initiated. Follow-up scheduled. Hypertensive heart disease w [facility] congestive heart failure 05/24/2022 07/18/2022 Overview: [...] 01/22/2019 07/29/2020 Coronary artery disease invo lving northway coronary artery of northway heart without angina pectoris 09/19/2017 10/31/2021 Overview: W/ angina on PL [place] (actinic keratosis) 01/23/201710/24 Bradycardia 06/14/2016 09/19/2017 Essential hypertension with goal blood pressure less than 140/90 10/31/2015 07/04/2022 Last Assessment & Plan: bp stable-not on meds Monitor Chronic cholecystitis 03/10/20092010 ACTIVE CASE MANAGEMENT 03/07/200904/10 Overview: Chela Morris, RN [phone] Other specified hypothyroidism 03/01/2008 08/16/2016 Overview: TSH [...] USE AGREEMENT 09/2010 Overview: Dr Parra [facility] Beta-hakan intolerance documented as of [...] as of this encounter Progress Notes * Marivel Casanova PA-C - 03/05/2024 9:46 AM EDT Name: Gwyn Shaver Date of :1945 TRANSITION EVENT: Type: Skilled visit Date: March 05 Code Status: No Code This note pertains to care provided at [facility]. Please see facility medical record for original note. This note is not to be edited or addended in [facility]. Editing or addending needs to occur in the facilities medical record. Subjective: Gwyn Shaver is a 79 year old male. Patient being seen for skilled visit Chief Complaint Patient presents with Skilled Visit HPI: pt here for rehabiilitation following fall due to ? Syncope resulting in periprosthetic fx right femur. Pt's pain is much improved with use of routine Tylenol, prn Tramadol for mod pain and Oxycodone prn severe pain. He is not having any sedation or obtundation. Vital signs stable. Pt is on pureed diet which he dislikes very much. Not sure why he is on this diet. He has had no aspiration episodes or dysphagia. BMs and voiding ok. Therapy progressing very slowly. CBC Results: Results for orders placed or performed in visit on 03/04/24 CBC Result Value Ref Range WBC 7.55 4.00 - 10.80 K/uL RBC 3.71 4.50 - 5.25 M/uL HGB 11.9 (L) 14.0 - 16.8 g/dL HCT 36.3 (L) 40.0 - 48.4 % MCV 97.8 82.0 - 99.5 fL MCH 32.1 27.0 - 34.0 pg MCHC 32.8 32.0 - 36.0 g/dL RDW 14.2 11.5 - 15.5 % PLT 298 140 - 400 K/uL MPV 10.0 6.6 - 11.1 fL Hemoglobin Results: Lab Results Component Value Date/Time HGB 11.9 (L) 03/04/2024 05:28 AM HGB 12.3 (A) 03/11/2023 12:00 AM HGB 12.6 (L) 01/09/2023 10:30 AM HGB 8.9 (L) 11/14/2022 05:43 AM HGB 10.1 (L) 10/12/2022 08:20 PM HGB 12.3 (L) 10/03/2022 08:18 PM HGB 11.7 (A) 10/03/2022 12:00 AM HGB 15.9 04/12/2020 10:48 AM HGB 14.5 08/14/2018 03:05 PM HGB 13.8 (A) 10/07/2017 12:00 AM HGB 12.0 (L) 12/04/2016 05:19 AM Basic Panel Results: Results for orders placed or performed in visit on 03/04/24 BASIC METABOLIC PANEL Result Value Ref Range BUN 27 (H) 6 - 20 mg/dL Creatinine 1.1 0.6 - 1.2 mg/dL Estimated Glomerular Filtration Rate 71 >=60 mL/min Sodium 139 135 - 146 mmol/L Potassium 4.2 3.5 - 5.1 mmol/L Chloride 102 98 - 107 mmol/L CO2 25 22 - 32 mmol/L Anion Gap 12 7 - 15 mmol/L Glucose 112 70 - 120 mg/dL Calcium 9.6 8.4 - 10.2 mg/dL Creatinine Results: Lab Results Component Value Date/Time CREATININE - [facility] 1.1 03/04/2024 05:28 AM CREATININE - [facility] 1.1 01/09/2023 10:30 AM CREATININE - [facility] 1.0 11/14/2022 05:43 AM CREATININE - [facility] 1.3 (H) 04/12/2020 10:48 AM CREATININE - [facility] 1.0 05/26/2019 08:32 AM CREATININE - [facility] 1.1 08/14/2018 03:05 PM CREATININE, RANDOM URINE - [facility] 165 07/27/2021 04:11 PM CREATININE-[facility] 1.07 03/11/2023 12:00 AM CREATININE-[facility] LAB 1.12 10/03/2022 12:00 AM CREATININE-OUTSIDE LAB 1.00 10/07/2017 12:00 AM Potassium Results: Lab Results Component Value Date/Time POTASSIUM - [facility] 4.2 03/04/2024 05:28 AM POTASSIUM - [facility] 4.5 01/09/2023 10:30 AM POTASSIUM - [facility] 4.3 11/14/2022 05:43 AM POTASSIUM - [facility] 4.5 04/12/2020 10:48 AM POTASSIUM - [facility] 4.3 05/26/2019 08:32 AM POTASSIUM - [facility] 5.4 (H) 08/14/2018 03:05 PM POTASSIUM-OU[facility]IDE [facility] 4.0 03/11/2023 12:00 AM POTASSIUM-OUTSIDE LAB 3.8 10/03/2022 12:00 AM POTASSIUM-OUTSIDE LAB 4.4 10/07/2017 12:00 AM Sodium Results: Lab Results Component Value Date/Time SODIUM - [facility] 139 03/04/2024 05:28 AM SODIUM - [facility] 140 01/09/2023 10:30 AM SODIUM - [facility] 140 11/14/2022 05:43 AM SODIUM - [facility] 139 04/12/2020 10:48 AM SODIUM - [facility] 143 05/26/2019 08:32 AM SODIUM - [facility] 146 08/14/2018 03:05 PM Patient Active Problem List Diagnosis DIASTOLIC DYSFUNCTION Granulomatous lung disease (HCC) Idiopathic scoliosis RHINITIS, NONALLERGIC Deviated nasal septum ADVANCE DIRECTIVE INFORMATION Seborrheic keratosis BPH with obstruction/lower urinary tract symptoms Urge [...] Eczema of left external ear 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) Cervical spinal stenosis Hx of actinic keratosis Chronic back pain greater than 3 months duration Moderate persistent asthma without complication Bronchiectasis without complication (HCC) Alveolar emphysema of lung (HCC) Mediastinal adenopathy COPD, group B, by GOLD 2017 classification (HCC) History of falling Dementia with mood disturbance (HCC) Respiratory insufficiency DDD (degenerative disc disease), cervical Diverticulosis of large intestine without hemorrhage Atelectasis, bilateral Cerebrovascular disease Periprosthetic fracture of femur at tip of prosthesis DDD (degenerative disc disease), lumbosacral Diastolic congestive heart failure (HCC) DNR (do not resuscitate) Supraventricular tachycardia (HCC) Urinary frequency Periprosthetic fracture around internal prosthetic right hip joint (HCC) AVNRT (AV pola re-entry tachycardia) (HCC) Vitamin B12 deficiency Past Medical History: Diagnosis Date Acquired hypothyroidism 11/08/2015 TSH 5 Amputation of finger of left hand Ankle enthesopathy Asthma Asthma, allergic Davila cyst 01/29/2014 5.4 cm left knee 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 01/08/2019 CO-M2 [place] Benign neoplasm of colon 06/2006 large adenomatous polyp removed at 30 cm Benign neoplasm of colon 10/24/2007 adenomatous polyp removed at 20cm Beta-hakan intolerance pulse went too low, stopped by Cardiology BPH without obstruction/lower urinary tract symptoms 04/05/2009 Carotid stenosis, non-symptomatic Chronic cholecystitis 02/2009 Chronic rhinitis Closed fracture of one or more phalanges of foot 08/2008 left little toe fractured COPD (chronic obstructive pulmonary disease) ([facility]) COPD, severity to be determined ([facility]) 03/2004 Admitted to [facility], Dr Goncalves Coronary artery disease involving northway coronary artery of northway heart without angina pectoris 09/19/2017 W/ angina on PL Coronary atherosclerosis of northway coronary artery Derangement of meniscus 12/06/2006 complex tear medial and lateral left meniscus with chondromalacia medial compartment Diastasis of muscle DIASTOLIC DYSFUNCTION Diverticulosis of colon VALDOVINOS (dyspnea on exertion) 08/17/2020 DVT of lower extremity (deep venous thrombosis) ([facility]) 01/29/2014 left posterior tibial and peroneal vein Emphysema, unspecified ([facility]) GERD (gastroesophageal reflux disease) Hemorrhoids, external without complications Idiopathic scoliosis Inflamed seborrheic keratosis INFORMATION 2011 pain stimulator placed [facility] Lung nodule Major depressive disorder, single episode, moderate ([facility]) 07/15/2009 started on Cymbalta MEDICATION USE AGREEMENT 05/2008 Dr Parra [facility] Mixed dyslipidemia Need for hepatitis C screening test 04/30/2013 Hepatitis C negative Other specified acquired hypothyroidism 03/01/2008 TSH 6.14 PULMONARY NODULE Restless legs Seborrheic dermatitis, unspecified Thrush 11/13/2016 сергей glabrata Thrush 02/21/2017 сергей albicans Thrush 05/21/2017 сергей glabrata Total knee replacement status, left 10/29/2017 Traumatic amputation of other finger(s) (complete) (partial), without mention of complication Urge incontinence 04/05/2009 Dr Albarran Vitamin D deficiency 07/06/2009 Vitamin D 22 Past Surgical History: Procedure Laterality Date AMPUTATION [...] CARDIAC ANGIOPLASTY, PERCUTANEOUS, 1 ARTERY performed by Yuedlka Kim MD at CARDIAC LABS [facility] CARDIAC CATH SCANNED RESULT 10/18/2011 ostial disease, 30% circ, normal EF COLONOSCOPY W/ LESION REMOVAL, SNARE 06/28/2006 polpy ws resected at 30cm and retrieved-DR MEHTA COLONOSCOPY, DIAGNOSTIC (RECTUM) 08/30/2016 sigmoid diverticulosis, repeat 5 yrs/[facility] COLONOSCOPY, REMOVE LESION, W/SNARE 10/24/2007 Dr Mehta 1 cm polyp at 20 cm, snared COLORECTAL CANCER SCREEN; COLON 03/03/1998 colonoscopy to cecum shows only scattered diverticuli CORONARY ARTERY DILATION, BALLOON 10/17/1997 Dr Day, [facility] CT ABDOMEN W IV AND W ORAL [...] possible right tracheomalacia CV STRESS (PERSANTINE) 12/27/2000 [facility] dr saleh: symptoms and ekg changes suggesting but not diagnostic of pharmacologically induced myocardial ischemia with dipyridamole. DESTRUCTION PREMALIGNANT LESION 1ST 02/11/[address] Mae Pena- natalia ECHO, COMPLETE (2D), TRANS-THORACIC 03/02/2009 mod LVH, [...] reflux on bx, repeat 1 yr / [facility] EGD, FLEXIBLE, DIAGNOSTIC 01/08/2019 Mendez's esophagitis, repeat 1 yr/ESOPHAGOGASTRODUODENOSCOPY (EGD), FLEXIBLE, TRANSORAL, DIAGNOSTIC performed by Raúl Dela Cruz MD at ENDOSCOPY [facility] EGD, FLEXIBLE, DIAGNOSTIC 06/02/2021 acid reflux, hiatal hernia / ESOPHAGOGASTRODUODENOSCOPY (EGD), FLEXIBLE, TRANSORAL, DIAGNOSTIC performed by Raúl Dela Cruz MD at ENDOSCOPY [facility] ELECTRIC STIMULATION THERAPY [facility] EMG & NCV, 2 EXTREMITIES 07/26/2006 mild sensory neuropathy FEMUR FX, REPAIR Left 10/04/2022 OPEN TREATMENT DISTAL FEMORAL CONDYLE FRACTURE performed by Donell Landry Jr., MD at OR [facility] FLEX SIG, GI REFERRAL OP 02/11/1998 small sessile polyp at 24 cm, but not lseen on colonoscopy FLUORO UPPER GI WITHOUT AIR WO KUB 06/30/2008 normal swallowing, prominant diverticula in duodenum. [facility] KNEE ARTHROSCOPY/MENISCECTOMY left knee, maybe in . LAPAROSCOPY; CHOLECYSTECTOMY 03/02/2009 with intraoperative cholangiogram, Dr [...] stomacy PACEMAKER-DEFIBRILLATOR ELECTRODE INSERT, DUAL N/A 06/06/2016 [facility] REPLANTATION OF DIGIT, COMPLETE 1997? Buzz saw accident to left hand and was Life Flighted to [place] for amputation of left index fingerand revision of several others REVISION OF TOTAL HIP JOINT SURGERY 05/1995 [facility]. Fell and broke hip in 1984 REVISION OF TOTAL HIP JOINT SURGERY 04/2007 right redo total hip SACROILIAC JOINT INJECT W/GUIDANCE 08/01/2020 INJECTION SACROILIAC JOINT performed by Gurpreet Zamora, at OR [facility] TOTAL HIP REPLACEMENT & PROSTHESIS 1986 left US AORTA 02/26/2017 2.7x2.2 cm, no AAA VASC DUPLEX VENOUS LE BILAT 10/16/2007 no DVT VASC DUPLEX VENOUS LE BILAT 01/29/2014 DVT left leg below knee involving posterior tibial nad peroneal, alsd 5.4 cm Davila's cyst VASC DUPLEX VENOUS LE BILAT 02/16/2014 left Davila's cyst, no DVT Family History Problem Relation Name Age of Onset Asthma Mother Diabetes Mother Renal Hx Mother kidney stones Heart Disorder Mother CHF, age 96 Other (Unknown) Father Heart disease Brother Isidoro No Past Hx Son Other (MVA) Sister Family Status Relation Status Mo Fa dad left when he was day and a half old Bro Alive Son Alive Son Alive Son (Not Specified) Sis Social History Socioeconomic History Marital status: Spouse name: Not on file Number of children: Not on file Years of education: Not on file Highest education level: Not on file Occupational History Not on file Tobacco Use Smoking status: Never Smokeless tobacco: Former Types: Snuff Quit date: 06/24/1971 Vaping Use Vaping status: Never Used Substance and Sexual Activity Alcohol use: No Comment: occasional Drug use: No Sexual activity: Not on file Other Topics Concern Not on file Social History Narrative No pets. No mold. ALLERGY SCENERY GARY INFORMATIONENIVIRONMENTAL HISTORY:House: Two StoryType of Heating System: Oil and Forced airAir Conditioning: Yes CentralBasement: Unfinished, Dampness and DehumidifierHome have cockroaches: NoIrritants in the home: NonePatient's bedroom: FLOOR: second TYPE OF SAMIA: CarpetingBeds: AMOUNT : 1 TYPE OF BEDS: Mattress and Box springPillows: AMOUNT: 1 TYPE OF PILLOWS: Synthetic (hypoallergenic, polyester)Bedroom contains: Minimal itemsPets: 1 dog(s)Lives on a farm: NoWorked in the [employer] for 22 yrs. 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 (Adult - for ages 18 years and over): No Does your family have trouble paying for medicine? (Household - for ages 0-17 years): Not on file Food Insecurity: No Food Insecurity (01/29/2024) Food Insecurity Do you need food for this week? (Adult - for ages 18 years and over): No Are you able to get enough food for your family? (Household - for ages 0-17 years): Not on file Does your family need food this week? (Household - for ages 0-17 years): Not on file Do you always have enough food for your family? (Household - for ages 0-17 years): Not on file Transportation Needs: No Transportation Needs (01/29/2024) Transportation Needs Do you have trouble getting a ride to medical visits or work? (Adult - for ages 18 years and over):Not on file Does your family have a hard time getting a ride to doctors visits? (Household - for ages 0-17 years): Not on file Has lack of transportation kept you from medical appointments, meetings, work, or from getting things needed for daily living? Check all that apply. (Adult - for ages 18 years and over): No Do you (or your family) have trouble finding or paying for a ride (transportation)? (Household - for ages 0-17 years): Not on file Social Connections: Socially Integrated (01/29/2024) Social Connections How often do you feel lonely or isolated from those around you? (Adult - for ages 18 years and over): Never Housing Stability: Low Risk (01/29/2024) Housing Stability Do you currently live in a care home or have no steady place to sleep at night? (Adult - for ages 18 years and over): No Do you think you are at risk of becoming homeless? (Adult - for ages 18 years and over): Not on file Does your family worry about paying for your home or becoming homeless? (Household - for ages 0-17 years): Not on file Are you homeless or worried that you might be in the future? (Adult - for ages 18 years and over): No Are you (or your family) homeless or worried that you might be in the future? (Household - for ages0-17 years): Not on file Review of patient's allergies indicates: Allergen Reactions Latex Patient denies this allergy Adhesive Tape Other (Please comment) Affected area blisters. I have reviewed medications and allergies. Please refer to MAR in the facility's medical record forthe most up-to-date medication list as this cannot be edited in [facility]. Review of Systems: Constitutional ROS: No change in weight,less weakness, less fatigue and No fevers, sweats, or chills Nose ROS: No nasal stuffiness and No significant epistaxis Mouth/Throat ROS: No thrush or No sore throat Neck ROS: No lumps or masses, No swollen glands, No recent swelling in thyroid area and No significant pain in neck Pulmonary ROS: No cough, sputum, or hemoptysis, No wheezing, No shortness of breath and No recent change in breathing Cardiovascular ROS: No chest pain, No shortness of breath, No edema, No palpitations and No syncope Gastrointestinal ROS: No abdominal pain, No change in bowel habits, No significant change in appetite, No nausea, vomiting, diarrhea, or constipation and No dysphagia Musculoskeletal/Extremities ROS: see HPI Skin/Integumentary ROS: No rash and No itching Neurologic ROS: No headaches and No seizures Psychiatric ROS: No depression, No anxiety and No psychosis Sleep: No sleep disorders OBJECTIVE: PHYSICALEXAM: I reviewed the most recent facilities vitals. General: alert, no distress, well nourished and well developed Eye Exam: Conjunctiva are pink and non-injected, sclera clear Nose: no mucosal erythema, no mucosal edema, no purulent discharge Oropharynx: no exudate, no erythema, lips, buccal mucosa, and tongue normal and mucous membranes are moist Neck: supple, no adenopathy, non-tender, neck veins flat, trachea midline Heart: regular rate & rhythm, no murmurs and no gallops Lungs: normal respiratory rate and rhythm, no chest wall tenderness, lungs clear to auscultation Abdomen: abdomen soft, non-tender, normal bowel sounds and no masses or organomegaly Extremities: no edema, no clubbing, no cyanosis Neuro Exam: alert & oriented x 3 with fluent speech, no focal motor/sensory deficits Skin: skin color, texture, turgor are normal, no rashes or significant lesions ASSESSMENT: Periprosthetic fracture around internal prosthetic right hip joint, subsequent encounter (Primary) Pain better controlled now Continue Tylenol, Tramadol and oxycodone as directed Continue with Therapy as directed Granulomatous lung disease (HCC) Stable breathing Continue Anoro ellipta daily, duonebs, levalbuterol as directed 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 Long Term Home Treatment Given: as above Electronically signed by: Marivel Casanova PA-C Over 35 minutes were spent in this visit more than half the time was spent counselling or coordinating care. documented in this encounter Plan of Treatment Upcoming Encounters Date Type Department Care Team (Late st Contact Info) Description 04/06/2024 3:00 PM EDT Nurse Only Ancillary [address] [place] [phone] [place], Nurse [address] [place] [address] 04/21/2024 11:15 AM EDT Office Visit Cardiology, [facility] [address] [facility] [place] [address] Maude Pierce, [address] [place] [address] 06/22/2024 1:40 PM EST Office Visit Dermatology [address] [place] [address] Nia Hong PA-C [address] [place] [address] [place] [phone] 08/13/2024 11:30 AM EST Office Visit Cardiology [address] [place] [address] Reji Mendez PA-C [address] [place] [phone] 12/21/2024 9:00 AM EDT Office Visit Family Medicine [address] [place] [phone] Guera Jay MD [address] [place] [address] [place] [phone] Health Maintenance Due Date Last Done Comments Alpha-1 Antitrypsin 02/06/1963 Adult Wellness Visit 02/06/2012 Colonoscopy 08/30/2021 08/30/2016 TSH 01/10/2024 01/09/2023, 12/22, 11/14/2022, Additional history exists COVID-19 Vaccine (2023- season) 2024 10/13/2020, 09/22/2020 Influenza Vaccine (FLU [...] this encounter Medical Devices Implanted Type Area Soil Conservationist Device Identifier Shelf Expiration Date Model / Serial / Lot Femoral Nail Retrograde Implanted:Qty: 1 on 10/04/2022 by Donell Landry Jr., MD at OR [facility] Left: Knee ANGEL 02/18/2031 [id number] / / [id number] Screw Nlk A3 Ti 4.5x36mm - [id number] Implanted:Qty: 1 on 10/04/2022 by Donell Landry Jr., MD at OR [facility] ANGEL : TRAUMA [id number] / / 5.0 Compression Plate Implanted:Qty: 1 on 10/04/2022 by Donell Landry Jr., MD at OR [facility] ANGEL [id number] / / Screw T2 Alpha Adv Lck 5x85 - [id number] Implanted:Qty: 1 on 10/04/2022 by Donell Landry Jr., MD at OR [facility] Left: Knee ANGEL : TRAUMA 07/24/2031 [id number] / / [id number] Screw T2 Alpha Adv Lck 5x65 - [id number] Implanted:Qty: 1 on 10/04/2022 by Donell Landry Jr., MD at OR [facility] Left: Knee ANGEL : TRAUMA 07/24/2032 [id number] / / [id number] Screw T2 Alpha Adv Lck 5x85 - [id number] Implanted:Qty: 1 on 10/04/2022 by Donell Landry Jr., MD at OR [facility] Left: Knee ANGEL : TRAUMA 02/22/2032 [id number] / / [id number] Screw T2 Alpha Lock 5x35mm - [id number] Implanted:Qty: 1 on 10/04/2022 by Donell Landry Jr., MD at OR [facility] Left: Knee ANGEL : TRAUMA 07/24/2032 [id number] / / [id number] Screw Gina Lk A3 Ti 5x12mm - [id number] Implanted:Qty: 1 on 10/04/2022 by Donell Landry Jr., MD at OR [facility] ANGEL : TRAUMA [id number] / / Screw Gina Lk A3 Ti 5x16mm - [id number] Implanted:Qty: 1 on 10/04/2022 by Donell Landry Jr., MD at [facility] ANGEL : TRAUMA [id number] / / Washer For 2.4mm/2.7mm/3.5m m - [id number] Implanted:Qty: 2 on 10/04/2022 by Donell Landry Jr., MD at OR [facility] [place] ANGEL : TRAUMA [id number] / / Screw Nlk V2 T10 Ft 3.5x28mm - [id number] Implanted:Qty: 2 on 10/04/2022 by Donell Landry Jr., MD at OR [facility] [place] ANGEL : TRAUMA [id number] / / documented as of this encounter Visit Diagnoses Diagnosis Periprosthetic fracture around internal prosthetic right hip joint, subsequent encounter- Primary Granulomatous lung disease (HCC) Other diseases of lung, not elsewhere classified 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) Chronic diastolic congestive heart failure (HCC) Chronic diastolic heart failure documented in this encounter Advance Directives Documents on File Type Date Recorded Patient Physical Therapy Assistant Instructor Expl anation Advance Directives and Living Will 10/03/2022 ADVANCE DIRECTIVE / LIVING WILL Power of Seamer 10/03/2022 POWER OF A TTORNEY * Full [...] Power of Attor mel? No Care Teams Learning Disabled Teacher Relationship Specialty Start Date End Date Guera Jay MD [address] [place] [address] [place] [id number] PCP - General Family Medicine 06/19/23 documented as of this encounter
--- OUTSIDE RECORDS SUMMARY | 2024-03-09 18:10 | External Medical Summary ---
Author Name Unknown Address Unknown Organization [id number]:[facility] [address] [place] [id number] Laboratory Report Ordering Provider Test Date Status STEVEN KEN 03/04/2024 05:28:00 Final Observation Date Value Abnormality Reference (Units ) Status BUN 03/04/2024 05:28:00 27 Above high normal 6-20 (mg/dL) Final Creatinine 03/04/2024 05:28:00 1.1 0.6-1.2 (mg/dL) Final Glomerular filtration rate/1.73 sq M.predicted [Volume Rate/Area] in Serum, Plasma or Blood by Creatinine-based formula (CKD-EPI) 03/04/2024 05:28:00 71 >=60 (mL/min) Final eGFR is calculated based on the CKD-EPI 2020 equation. Sodium 03/04/2024 05:28:00 139 135-146 (m mol/L) Final Potassium 03/04/2024 05:28:00 4.2 3.5-5.1 (m mol/L) Final Cl 03/04/2024 05:28:00 102 98-107 (mm ol/L) Final CO2 03/04/2024 05:28:00 25 22-32 (mmo l/L) Final Anion gap 03/04/2024 05:28:00 12 7-15 (mmol /L) Final Glucose 03/04/2024 05:28:00 112 70-120 (mg /dL) Final Calcium 03/04/2024 05:28:00 9.6 8.4-10.2 ( mg/dL) Final Performing Location [facility] [address] [place] [address]
--- OUTSIDE RECORDS SUMMARY | 2024-03-09 18:10 | External Medical Summary | Summary of Care ---
Author Name Unknown Organization [facility] Address [address] [place] [address] Phone [phone] Care Team Providers Care Wood Model Builder Name Role Phone Guera Jay MD Primary Care Prov ider Encounter Details Date Type Department Care Team (Late st Contact Info) Description 03/06/2024 Population Health External Data Unspecified Department Allergies Active Allergy Reactions Criticality Noted Date Comments Adhesive Tape Other (Please comment) Low 03/09/2009 Affected area blisters. Latex 11/23/2014 Patient denies this allergy documented as of this encounter (statuses as of 03/06/2024) Medications Medication Sig Dispensed Refills Start Date [...] 75 MG Oral Tablet (pLAVix)Indications :Atherosclerosis of [place] coronary artery of [place] heart with angina pectoris (HCC) Take 1 [...] cut, crush or chew. 03/03/2024 Active Ipratropium [place] 0.02 % Inhalation Solution (Atrovent) Inhale 1.25 [...] as of this encounter (statuses as of 03/06/2024) Active Problems Problem Noted Date Diagnosed Date [...] meds at length -albuterol rx sent to [place] [facility] -Use Advair BID -has rescue kit -CXR, exercise pulse ox -f/u t/c and home visit next week -needs pulm f/u Mediastinal adenopathy 04/25/2022 Chronic back pain greater than 3 months duration 04/17/2022 Hx of actinic keratosis 10/24/2020 Cervical spinal stenosis 01/27/2020 Atherosclerosis of [place] co ronary artery of [place] heart with stable angina pectoris 10/02/2019 Overview: [...] esophagus determined by endoscopy 12/22 Overview: CO-M2 [place] Last Assessment & Plan: Follows with GI [...] as of this encounter (statuses as of 03/06/2024) Resolved Problems Problem Noted Date Diagnosed Date [...] use OSH [facility] in [place]. Scheduling to fax orders. Chronic obstructive pulmonary disease 07/18/2022 08/08/2022 Overview: Per COPD GOLD Classification Last Assessment & Plan: COPD "RED FLAG" COPD symptoms: o Increased shortness of breath at rest ("I struggle to breathe even when watching TV", "I have to wear or turn up my oxygen just when I'm sitting on the couch") Medication Regimen o Class D - Inhaled Uhtfwzmuloxqyd-KWXN-UXFG Combination Inhaler (Trellegy) Exacerbation Mgt: o Rescue [...] 01/22/2019 07/29/2020 Coronary artery disease invo lving [place] coronary artery of [place] heart without angina pectoris 09/19/2017 10/31/2021 Overview: W/ angina on [place] (actinic keratosis) 01/23/201710/24 Bradycardia 06/14/2016 09/19/2017 Essential hypertension with goal blood pressure less than 140/90 10/31/2015 07/04/2022 Last Assessment & Plan: bp stable-not on meds Monitor Chronic cholecystitis 03/10/20092010 ACTIVE CASE MANAGEMENT 03/07/200904/10 Overview: Chela Morris RN [phone] Other specified hypothyroidism 03/01/2008 08/16/2016 Overview: TSH [...] as of this encounter (statuses as of 03/06/2024) Immunizations Name Administration Dates Next Due COVID-19 [...] 3:00 PM EDT Nurse Only Ancillary [address] [place] [address] Gamal, Nurse [address] [place] [phone] 04/21/2024 11:15 AM EDT Office Visit Cardiology, [facility] [address] [facility] [place] [address] Maude Pierce DO [address] [place] [address] 06/22/2024 1:40 PM EST Office Visit Dermatology [address] [place] [address] Nia Hong PA-C [address] [place] [address] [place] [address] 08/13/2024 11:30 AM EST Office Visit Cardiology [address] [place] [address] Reji Mendez PA-C [address] [place] [address] 12/21/2024 9:00 AM EDT Office Visit Family Medicine [address] [place] [phone] Guera Jay MD [address] [place] [address] [place] [phone] Health Maintenance Due Date Last Done Comments [...] this encounter Medical Devices Implanted Type Area Oven Tender Device Identifier Shelf Expiration Date Model / Serial / Lot Femoral Nail Retrograde Implanted:Qty: 1 on 10/04/2022 by Donell Landry Jr., MD at OR [facility] [place] Left: Knee ANGEL 02/18/2031 [id number] / / [id number] Screw Nlk A3 Ti 4.5x36mm - [id number] Implanted:Qty: 1 on 10/04/2022 by oDnell Landry Jr., MD at OR [facility] [place] ANGEL : TRAUMA [id number] / / 5.0 Compression Plate Implanted:Qty: 1 on 10/04/2022 by Donell Landry Jr., MD at OR [facility] [place] ANGEL [id number] / / Screw T2 Alpha Adv Lck 5x85 - [id number] Implanted:Qty: 1 on 10/04/2022 by Donell Landry Jr., MD at OR [facility] [place] Left: Knee ANGEL : TRAUMA 07/24/2031 [id number] / / [id number] Screw T2 Alpha Adv Lck 5x65 - [id number] Implanted:Qty: 1 on 10/04/2022 by Donell Landry Jr., MD at OR [facility] [place] Left: Knee ANGEL : TRAUMA 07/24/2032 [id number] / / [id number] Screw T2 Alpha Adv Lck 5x85 - [id number] Implanted:Qty: 1 on 10/04/2022 by Donell Landry Jr., MD at OR [facility] [place] Left: Knee ANGEL : TRAUMA 02/22/2032 [id number] / / [id number] Screw T2 Alpha Lock 5x35mm - [id number] Implanted:Qty: 1 on 10/04/2022 by Donell Landry Jr., MD at OR [facility] [place] Left: Knee ANGEL : TRAUMA 07/24/2032 [id number] / / [id number] Screw Gina Lk A3 Ti 5x12mm - [id number] Implanted:Qty: 1 on 10/04/2022 by Donell Landry Jr., MD at OR [facility] [place] ANGEL : TRAUMA [id number] / / Screw Gina Lk A3 Ti 5x16mm - [id number] Implanted:Qty: 1 on 10/04/2022 by Donell Landry Jr., MD at OR [facility] [place] ANGEL : TRAUMA [id number] / / Washer For 2.4mm/2.7mm/3.5m m - [id number] Implanted:Qty: 2 on 10/04/2022 by Donell Landry Jr., MD at OR [facility] [place] ANGEL : TRAUMA [id number] / / Screw Nlk V2 T10 Ft 3.5x28mm - [id number] Implanted:Qty: 2 on 10/04/2022 by Donell Landry Jr., MD at OR [facility] [place] ANGEL : TRAUMA [id number] / / documented as of this encounter Advance Directives Documents on File Type Date Recorded Patient Senior Research Fellow Expl anation Advance Directives and Living Will 10/03/2022 ADVANCE DIRECTIVE / LIVING WILL Power of Beam Warper 10/03/2022 POWER OF A TTORNEY * Full [...] Power of Attor mel? No Care Teams Wood Model Builder Relationship Specialty Start Date End Date Guera Jay MD [address] [place] [address] [place] [phone] PCP - General Family Medicine 06/19/23 documented as of this encounter
--- OUTSIDE RECORDS SUMMARY | 2024-03-09 18:10 | External Medical Summary | Summary of Care ---
Author Name Unknown Organization [facility] Address [address] [place] [address] Phone [phone] Care Team Providers Care Letterpress Setter Name Role Phone Guera Jay MD Primary Care Prov ider Reason for Visit * Reason Onset Date Comments Halfway Visit - Admission 03/04/2024 Encounter Details Date Type Department Care Team (Latest Contact Info) Description 03/04/2024 8:00 AM EDT Halfway Visit [address] [address] Dinora Franklin MD [address] [place] [address] [place] [phone] Periprosthetic fracture around internal prosthetic right hip joint, subsequent encounter*; Altered mental status, unspecified altered mental status type; COPD, group B, by GOLD 2017 classification ([facility]); AVNRT (AV pola re-entry tachycardia) ([facility]); Chronic diastolic congestive heart failure ([facility]); BPH with obstruction/lower urinary tract symptoms; 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 Latex 11/23/2014 Patient denies this allergy documented as of this encounter (statuses as of 03/04/2024) Medications Medication Sig Dispensed Refills Start Date End Date Status Flutter DeviceIndications :Bronchiectasis without complication (HCC) Use for 10 min twice daily. pretreat with albuteorl. 1 Each 2 Active Anoro Ellipta 62.5-25 MCG/ACT Inhalation Aerosol Powder Breath Activated (umeclidinium-jens anterol) Inhale 1 Puff by mouth in the morning. 30 Each 5 3 Active Levothyroxine Sodium 75 MCG Oral Tablet [...] MG Oral Tablet (pLAVix)Indicatio ns:Atherosclerosi s of cap[place] grande coronary artery of cap[place] grande heart with angina pectoris (HCC) Take 1 [...] by mouth in the morning. 4 Active traMADol HCl 50 MG Oral Tablet (Ultram) Take 1 Tablet by mouth every 6 hours as needed for Pain, Severe or Pain, Moderate. 40 Tablet 4 Active oxyCODONE HCl 5 MG Oral Tablet (Oxy IR) Take 1 Tablet by mouth every 4 hours as needed for Pain, Severe. 40 Tablet 4 Active Acetaminophen 325 MG Oral Tablet (Tylenol) Take 2 Tablets by mouth every 4 hours as needed for Fever >38C(100.5F) or Pain, Mild. 4 Active amLODIPine Besylate 5 MG Oral Tablet (Norvasc) Take 1 Tablet by mouth in the morning. 4 Active guaiFENesin ER 600 MG Oral Tablet Extended Release 12 Hour (Mucinex) Take 1 Tablet by mouth in the morning and 1 Tablet before bedtime. Take with plenty of water. Do not cut, crush or chew. 4 Active Ipratropium [place] 0.02 % Inhalation Solution (Atrovent) Inhale 1.25 mL via nebulizer in the morning and 1.25 mL at noon and 1.25 mL before bedtime. 4 Active Levalbuterol HCl 1.25 MG/3ML Inhalation Nebulization Solution (Xopenex) Inhale 1 Ampule via nebulizer in the morning and 1 Ampule at noon and 1 Ampule in the evening. Active predniSONE 20 MG Oral Tablet (Deltasone) Take 1 Tablet by mouth in the morning. Active Doxycycline Hyclate 100 MG Oral Capsule Take 1 Capsule by mouth in the morning and 1 Capsule before bedtime. Active Lidocaine 4 % External Patch (Lidocaine Pain Relief) Place 1 Patch over 12 hours topically on the skin daily. Active Vitamin B-12 1000 MCG Oral Tablet (Cyanocobalamin) Take 1 Tablet by mouth in the morning. Active DULoxetine HCl 30 MG Oral Capsule Delayed Release Particles (Cymbalta) Take 1 Capsule by mouth at bedtime. 03/04/20 24 Discontinued documented as of this encounter (statuses as of 03/04/2024) Active Problems Problem Noted Date Diagnosed Date [...] meds at length -albuterol rx sent to [facility] -Use Advair BID -has rescue kit -CXR, exercise pulse ox -f/u t/c and home visit next week -needs pulm f/u Mediastinal adenopathy 04/25/2022 Chronic back pain greater than 3 months duration 04/17/2022 Hx of actinic keratosis 10/24/2020 Cervical spinal stenosis 01/27/2020 Atherosclerosis of cap[place] grande co ronary artery of cap[place] grande heart with stable angina pectoris 10/02/2019 Overview: [...] Pain managed through [facility] pain clinic. 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 12/22 Overview: [place] Last Assessment & Plan: Follows with GI [...] finasteride, Flomax Urge incontinence 04/05/2009 Overview: Dr Albarrna ADVANCE DIRECTIVE INFORMATION 11/14/2005 Overview: Yes, Patient [...] as of this encounter (statuses as of 03/04/2024) Resolved Problems Problem Noted Date Diagnosed Date [...] use OSH [facility] in [place]. Scheduling to fax orders. Chronic obstructive pulmonary disease 07/18/2022 08/08/2022 Overview: Per COPD GOLD Classification Last Assessment & Plan: COPD "RED FLAG" COPD symptoms: o Increased shortness of breath at rest ("I struggle to breathe even when watching TV", "I have to wear or turn up my oxygen just when I'm sitting on the couch") Medication Regimen o Class D - Inhaled [id number] Combination Inhaler (Trellegy) Exacerbation Mgt: o Rescue [...] Coronary artery disease invo lving capitan grande coronary artery of cap[place] grande heart without angina pectoris 09/19/2017 10/31/2021 Overview: W/ angina on PL [place] (actinic keratosis) 01/23/201710/24 Bradycardia 06/14/2016 09/19/2017 Essential hypertension with goal blood pressure less than 140/90 10/31/2015 07/04/2022 Last Assessment & Plan: bp stable-not on meds Monitor Chronic cholecystitis 03/10/20092010 ACTIVE CASE MANAGEMENT 03/07/200904/10 Overview: Chela Morris, RN [phone] Other specified hypothyroidism 03/01/2008 08/16/2016 Overview: TSH [...] Overview: Dr Parra [facility] Beta-hakan intolerance documented as of this encounter (statuses as of 03/04/2024) Immunizations Name Administration Dates Next Due COVID-19 mRNA, LNP-s, No Pre serve, 2-Dose Series (Genmab) 10/13/2020,09/22/2020 Pneumococcal Conjugate Vacc, 13 Valent (Prevnar) [...] No 01/29/2024 Does the household have a up health systemr source of income? (Household - for ages [...] as of this encounter Progress Notes * Dinora Franklin MD - 03/04/2024 1:53 PM EDT ADMISSION HISTORY and PHYSICAL TRANSITION EVENT: Type: SNF admission Date: March 02 Code Status: No Code Name: Gwyn Shaver Date of : 1945 This note pertains to care provided at [facility]. Please see facility medical record for original note. This note is not to be edited or addended in [employer]. Editing or addending needs to occur in the facilities medical record. S: Gwyn Shaver had been admitted to [facility] from [facility] for PT and OT. Recently admitted to [facility] on 02/24/24 because of fall with right periprosthetic hip fracture and was transferred here and admitted on 03/02/2024. Patient of Dr. 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 He states he was coming into the house and ran into the refrigerator door, which knocked him over. He developed severe pain in the right hip after the fall. In the ED, CXR was negative. Head CT was negative for acute changes. Pelvis x- ray showed linear lucencies in the proximal right femur and base of the right lesser trochanter that may represent age-indeterminate nondisplaced fractures. CT of the chest, abdomen and pelvis was negative for acute trauma. There was mild mediastinal and bilateral hilar lymphadenopathy that was improved. It also showed a nondisplaced right femoral periprosthetic fracture with a small adjacent intramuscular hematoma atthe distal iliopsoas. Cervical spine CT was negative. Right hip x-ray confirmed nondisplaced periprosthetic fracture within the proximal right femur. Patient received morphine en route to the ED. Jose tionally, he was medicated with Fentanyl and morphine. Patient was admitted and developed altered mental status while in ED. Documentation is difficult tofollow the timeline but appears he was given a dose of Narcan in the ED. A stroke alert was called around 6:20 AM on 02/25/24 and he was given Narcan during the stroke alert telemedicine evaluation. Itis not clear from documentation whether he received Narcan twice or if he received the dose during the Telestroke evaluation while still in the ED. His mental status did improve with the Narcan and was no longer obtunded. He was then given tylenol for pain. Telestroke did not feel he had acute stroke and that he had a metabolic encephalopathy. CTA of the head and neck was done and head CTA was nor mal and neck CTA showed 50% right internal carotid stenosis. Patient was seen by orthopedics, who did not recommend surgical intervention. He is to remain non-weight bearing to the right lower extremity and toe-touch to RLE only with transfers. He is to follow-up with Dr. Yip in 1-2 weeks. He was given Tylenol and Lidocaine patch to right hip for pain ondischarge. He developed a fever, cough, and shortness of breath. Respiratory biofire negative. He was treated for bronchitis and COPD exacerbation with oxygen, nebulizers, prednisone, and doxycycline. He was discharged on 2 more days of doxy and 3 days of prednisone as well as routine nebulizers and Mucinex. He was seen by cardiology for concerns of syncope (had admission in November and January for syncope). Pacemaker was interrogated and no significant arrhthymias discovered. He was started on low dose amlodipine for hypertension but no further changes recommended. Sugars were mildly elevated and A1c was 6.6. He was on prednisone while admitted. Patient is now admitted for PT/OT. He lives at home with his and is hoping to return. Patient has had significant pain since admission to facility. He was begun on Tramadol Q6H PRN moderate painand oxycodone 5 mg Q6H PRN severe pain cautiously. He reports this is helping and his mental statushas remained at baseline. He plans to return home with his after rehab stay. He states his breathing is about the same but not worse. No fever or chills. Appetite remains a bit low. He states heis moving his bowels normally. He has been wearing oxygen continuously. He wears it as needed at home. Past Medical History: Patient Active Problem List Diagnosis DIASTOLIC DYSFUNCTION [...] left external ear Atherosclerosis of capitan grande coronary artery of cap[place] grande heart with stable angina pectoris (HCC) Cervical spinal stenosis Hx of actinic keratosis Chronic back pain greater than 3 months duration Moderate persistent asthma without complication Bronchiectasis without complication (HCC) Alveolar emphysema of lung (HCC) Mediastinal adenopathy COPD, group B, by GOLD 2017 classification ([facility]) History of falling Dementia with mood disturbance [...] joint (HCC) AVNRT (AV pola re-entry tachycardia) ([facility]) Vitamin B12 deficiency Current Outpatient Medications Medication Sig Dispense Refill Flutter Device Use for 10 min twice daily. pretreat with albuteorl. 1 Each 0 Anoro Ellipta 62.5-25 MCG/ACT Inhalation Aerosol [...] by mouth at bedtime. 180 Tablet 1 Nitroglycerin 0.4 MG Sublingual Tablet Sublingual (Nitrostat) TAKE 1 TABLET BY MOUTH EVERY 5 MINUTES NEEDED WITH CHEST PAIN UP TO 3 DOSES IN 15 MINUTES (Patient not taking: Reported on 01/21/2024) 25 Tablet 11 DULoxetine HCl 60 MG Oral Capsule Delayed Release Particles (Cymbalta) TAKE ONE CAPSULE BY MOUTH EVERY EVENING 90 Capsule 3 Clopidogrel Bisulfate 75 MG Oral Tablet (pLAVix) [...] for Shortness of Breath. 360 mL 5 Tamsulosin HCl 0.4 MG Oral Capsule (Flomax) Take 1 Capsule by mouth in the morning. Metoprolol Succinate ER 25 MG Oral Tablet Extended Release 24 Hour (toPROL XL) Take 2 Tablets by mouth in the morning. traMADol HCl 50 MG Oral Tablet (Ultram) Take 1 Tablet by mouth every 6 hours as needed for Pain, Severe or Pain, Moderate. 40 Tablet 0 oxyCODONE HCl 5 MG Oral Tablet (Oxy IR) Take 1 Tablet by mouth every 4 hours as needed for Pain, Severe. 40 Tablet 0 Acetaminophen 325 MG Oral Tablet (Tylenol) Take 2 Tablets by mouth every 4 hours as needed for Fever >38C(100.5F) or Pain, Mild. amLODIPine Besylate 5 MG Oral Tablet (Norvasc) Take 1 Tablet by mouth in the morning. guaiFENesin ER 600 MG Oral Tablet Extended Release 12 Hour (Mucinex) Take 1 Tablet by mouth in the morning and 1 Tablet before bedtime. Take with plenty of water. Do not cut, crush or chew. Ipratropium Berlin 0.02 % Inhalation Solution (Atrovent) Inhale 1.25 mL via nebulizer in the morning and 1.25 mL at noon and 1.25 mL before bedtime. Levalbuterol HCl 1.25 MG/3ML Inhalation Nebulization Solution (Xopenex) Inhale 1 Ampule via nebulizer in the morning and 1 Ampule at noon and 1 Ampule in the evening. predniSONE 20 MG Oral Tablet (Deltasone) Take 1 Tablet by mouth in the morning. Doxycycline Hyclate 100 MG Oral Capsule Take 1 Capsule by mouth in the morning and 1 Capsule beforebedtime. Lidocaine 4 % External Patch (Lidocaine Pain Relief) Place 1 Patch over 12 hours topically on the skin daily. Vitamin B-12 1000 MCG Oral Tablet (Cyanocobalamin) Take 1 Tablet by mouth in the morning. No current facility-administered medications for this visit. Review of patient's allergies indicates: Allergen Reactions Latex Patient denies this allergy Adhesive Tape Other (Please comment) Affected area blisters. Social History Tobacco Use Smoking status: Never Smokeless tobacco: Former Types: Snuff Quit date: 06/24/1971 Substance Use Topics Alcohol use: No Comment: occasional Vaping/E-Cigarette Use Vaping/E-Cigarette Use Never User Vaping/E-Cigarette Substances Nicotine No Other No Flavoring No THC No Cannabidiol (CBD) No Vaping/E-Cigarette Devices Disposable No Pre-filled or Refillable Cartridge No Refillable Tank No Pre-filled Pod No Past Surgical History: Procedure Laterality Date AMPUTATION [...] by Yudelka Kim MD at [facility] CARDIAC CATH SCANNED RESULT 10/18/2011 ostial disease, 30% circ, normal EF COLONOSCOPY W/ LESION REMOVAL, SNARE 06/28/2006 polpy ws resected at 30cm and retrieved-DR MEHTA COLONOSCOPY, DIAGNOSTIC (RECTUM) 08/30/2016 sigmoid diverticulosis, repeat 5 yrs/[facility] COLONOSCOPY, REMOVE LESION, W/SNARE 10/24/2007 Dr Mehta 1 cm polyp at 20 cm, snared COLORECTAL CANCER SCREEN; COLON 03/03/1998 colonoscopy to cecum shows only scattered diverticuli CORONARY ARTERY DILATION, BALLOON 10/17/1997 Dr Day, [facility] CT ABDOMEN W IV AND W ORAL [...] possible right tracheomalacia CV STRESS (PERSANTINE) 12/27/[address] [facility] [address] asleh: symptoms and ekg changes suggesting but not diagnostic of pharmacologically induced myocardial ischemia with dipyridamole. DESTRUCTION PREMALIGNANT LESION 1ST 02/11/[address] Mae Pena- hawk run ECHO, COMPLETE (2D), TRANS-THORACIC 03/02/2009 mod LVH, [...] reflux on bx, repeat 1 yr / [facility] EGD, FLEXIBLE, DIAGNOSTIC 01/08/2019 Mendez's esophagitis, repeat 1 yr/ESOPHAGOGASTRODUODENOSCOPY (EGD), FLEXIBLE, TRANSORAL, DIAGNOSTIC performed by Raúl Dela Cruz MD at ENDOSCOPY [facility] EGD, FLEXIBLE, DIAGNOSTIC 06/02/2021 acid reflux, hiatal hernia / ESOPHAGOGASTRODUODENOSCOPY (EGD), FLEXIBLE, TRANSORAL, DIAGNOSTIC performed by Raúl Dela Cruz MD at [facility]OSCOPY [facility] ELECTRIC STIMULATION THERAPY [facility] EMG & NCV, 2 EXTREMITIES 07/26/2006 mild sensory neuropathy FEMUR FX, REPAIR Left 10/04/2022 OPEN TREATMENT DISTAL FEMORAL CONDYLE FRACTURE performed by Donell Landry Jr., MD at [place] [facility] FLEX SIG, GI REFERRAL OP 02/11/1998 small sessile polyp at 24 cm, but not lseen on colonoscopy FLUORO UPPER GI WITHOUT AIR WO KUB 06/30/2008 normal swallowing, prominant diverticula in duodenum. [facility] KNEE ARTHROSCOPY/MENISCECTOMY left knee, maybe in 1980s. [...] stomacy PACEMAKER-DEFIBRILLATOR ELECTRODE INSERT, DUAL N/A 06/06/2016 [facility] REPLANTATION OF DIGIT, COMPLETE 1997? Buzz saw accident to left hand and was Life Flighted to [place] for amputation of left index fingerand revision of several others REVISION OF TOTAL HIP JOINT SURGERY 05/1995 [facility]. Fell and broke hip in 1984 REVISION OF TOTAL HIP JOINT SURGERY 04/2007 right redo total hip SACROILIAC JOINT INJECT W/GUIDANCE 08/01/2020 INJECTION SACROILIAC JOINT performed by Gurpreet Zamora DO at OR [facility] TOTAL HIP REPLACEMENT & PROSTHESIS 1986 left [...] Alive Son Alive Son (Not Specified) Sis Results for orders placed or performed in [...] mg/dL Calcium 9.6 8.4 - 10.2 mg/dL CBC Result Value Ref Range WBC 7.55 [...] K/uL MPV 10.0 6.6 - 11.1 fL DIFFERENTIAL, AUTOMATED Result Value Ref Range WBC 7.55 4.00 - 10.80 K/uL Neutrophils % 62.1 40.0 - 75.0 % Lymphocytes % 24.1 18.0 - 42.0 % Monocytes % 12.1 (H) 1.0 - 11.0 % Eosinophils % 1.7 0.0 - 6.0 % Basophils % 0.0 0.0 - 2.0 % Absolute Neutrophils 4.69 1.80 - 7.70 K/uL Absolute Lymphocytes 1.82 1.00 - 4.80 K/ul Absolute Monocytes 0.91 0.00 - 1.10 K/uL Absolute Eosinophils 0.13 0.00 - 0.70 K/uL Absolute Basophils 0.00 0.00 - 0.20 K/uL *Note: Due to a large number of results and/or encounters for the requested time period, some results have not been displayed. A complete set of results can be found in Results Review. Review of Systems: Constitutional ROS: No change in weight, No fevers, sweats, or chills, and +generalized weakness Eye ROS: No recent significant change in vision and No eye pain, redness, discharge Ear ROS: No ear pain, No drainage, No tinnitus or vertigo, and No recent change in hearing Nose ROS: No history of frequent colds or sinusitis, No nasal stuffiness, No history of Hay Fever, and No significant epistaxis Mouth/Throat ROS: No bleeding gums, No thrush, or No sore throat Pulmonary ROS: +as per HPI Cardiovascular ROS: No chest pain, No shortness of breath, No orthopnea, No palpitations, and +s/p pacemaker, CHF, and h/o syncope this summer Gastrointestinal ROS: No abdominal pain, No change in bowel habits, No significant heartburn, No nausea, vomiting, diarrhea, or constipation, No hematemesis, No blood in stools or black tarry stools,No abdominal bloating or early satiety, and +reduced appetite +dysphagia Genito-Urinary Male ROS: No dysuria, No frequency, and +BPH Musculoskeletal/Extremities ROS: +as per HPI Hematologic/Lymphatic ROS: No coagulation disorder, No abnormal bleeding, No chills, No weight loss, and +mild anemia Skin/Integumentary ROS: No rash Neurologic ROS: No headaches, No seizures, and +mild dementia Endocrine ROS: No heat intolerance, No cold intolerance, No excessive thirst or urination, and +hypothyroidism and +prediabetes ADL skills: dependent Ambulates non ambulating--NWB to RLE OBJECTIVE: PHYSICAL EXAM: I reviewed the most recent facilities vitals. Refer to vital signs flowsheet in [facility] chart.General: alert, no distress, well nourished, well developed, and chronically ill appearing male Head: Normocephalic, No masses, lesions, tenderness or abnormalities Eye Exam: PERRLA, extraocular movements intact, conjunctiva are pink and non- injected, sclera clear Ears: External ears normal Nose: no mucosal erythema, no mucosal edema, no purulent discharge Oropharynx: no exudate, no erythema, lips, buccal mucosa, and tongue normal, and mucous membranes are moist Neck: supple, no adenopathy, no bruits Heart: regular rate & rhythm and no gallops Lungs: chest symmetric with normal AP diameter, no chest deformities noted, no chest wall tenderness, coarse sounds heard, decreased breath sounds Abdomen: abdomen soft, non-tender, normal bowel sounds, and no masses or organomegaly Extremities: no edema, no clubbing, no cyanosis Neuro Exam: alert & oriented x 3 with fluent speech, no focal motor/sensory deficits ASSESSMENT: Periprosthetic fracture around internal prosthetic right hip joint, subsequent encounter (Primary)--continue PT/OT. Referral to Dr. Yip for follow-up. Remains NWB to RLE and toe-touch just for transfers. Pain improved control with Tramadol and oxycodone. Would not escalate pain medications further due to requiring Narcan after receiving IV pain medications. COPD, group B, by GOLD 2017 classification ([facility])--with exacerbation while admitted. Continue oxygen, nebulizer, complete prednisone taper. AVNRT (AV pola re-entry tachycardia) ([facility])--was not felt to have caused this fall. Has pacemaker and interrogation negative for AVNRT recently. Chronic diastolic congestive heart failure (HCC--appears euvolemic. BPH with obstruction/lower urinary tract symptoms--continue Tamsulosin 0.4 mg daily and finasteride5 mg daily. 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 Continue metoprolol succinate and maximum statin. Cardiac pacemaker in situ--recent interrogation without significant findings. Chronic pain due to trauma--continue gabapentin and Duloxetine. Late onset Alzheimer's dementia with mood disturbance, unspecified dementia severity ([facility])--per history. Is oriented x 3 and appropriate today. PLAN: 1. Continue present medication(s): Referral(s) to: Dr. Yip in 1-2 weeks for follow-up 2. Admission orders, medications, labs, hospital records and care plan reviewed. 3. Pack Out Operator consult, Physical Therapy, Occupational Therapy, and Speech Therapy ordered. 4. Care plan reviewed. 5. Advance Directives were discussed: The patient is a DNR 6. Snf Home Treatment Given: Antibiotic Oral doxycyline and prednisone oral Electronically signed by: Dinora Franklin MD I spent a total of 54 minutes coordinating, documenting, and providing care for this patient excluding time spent in the performance of separately billed services or time spent by another provider/QHP. documented in this encounter Plan of Treatment Upcoming Encounters Date Type Department Care Team (Late st Contact Info) Description 04/06/2024 3:00 PM EDT Nurse Only Ancillary [address] [place] [phone] [place], Nurse [address] [place] [phone] 04/21/2024 11:15 AM EDT Office Visit Cardiology[facility] [address] [facility] [place] [address] Maude Pierce, [address] [place] [phone] 06/22/2024 1:40 PM EST Office Visit Dermatology [address] [place] [address] Nia Hong PA-C [address] [place] [address] [place] [phone] 08/13/2024 11:30 AM EST Office Visit Cardiology [address] [place] [address] Reji Mendez PA-C [address] [place] [address] 12/21/2024 9:00 AM EDT Office Visit Family Medicine [address] [place] [phone] Guera Jay MD [address] [place] [address] [place] [phone] Health Maintenance Due Date Last Done Comments [...] this encounter Medical Devices Implanted Type Area Offset Plate Maker Device Identifier Shelf Expiration Date Model / Serial / Lot Femoral Nail Retrograde Implanted:Qty: 1 on 10/04/2022 by Gris Middleton, Donell Oliver MD at [place] [facility] Left: Knee ANGEL 02/18/2031 [id number] / / [id number] Screw Nlk A3 Ti 4.5x36mm - [id number] Implanted:Qty: 1 on 10/04/2022 by Donell Landry Jr., MD at [place] [facility] ANGEL : TRAUMA [id number] / / 5.0 Compression Plate Implanted:Qty: 1 on 10/04/2022 by Donell Landry Jr., MD [place] [facility] ANGEL [id number] / / Screw T2 Alpha Adv Lck 5x85 - [id number] Implanted:Qty: 1 on 10/04/2022 by Donell Landry Jr., MD [place] [facility] Left: Knee ANGEL : TRAUMA 07/24/2031 2361-5085S / / [id number] Screw T2 Alpha Adv Lck 5x65 - [id number] Implanted:Qty: 1 on 10/04/2022 by Donell Landry Jr., MD [place] [facility] Left: Knee ANGEL : TRAUMA 07/24/2032 2361-5065S / / [id number] Screw T2 Alpha Adv Lck 5x85 - [id number] Implanted:Qty: 1 on 10/04/2022 by Donell Landry Jr., MD [place] [facility] Left: Knee ANGEL : TRAUMA 02/22/2032 2361-5085S / / [id number] Screw T2 Alpha Lock 5x35mm - [id number] Implanted:Qty: 1 on 10/04/2022 by Donell Landry Jr., MD [place] [facility] [place]: Knee ANGEL : TRAUMA 07/24/2032 [id number] / / [id number] Screw Gina Lk A3 Ti 5x12mm - [id number] Implanted:Qty: 1 on 10/04/2022 by Donell Landry Jr., MD at [place] [facility] ANGEL : TRAUMA [id number] / / Screw Gina Lk A3 Ti 5x16mm - [id number] Implanted:Qty: 1 on 10/04/2022 by Donell Landry Jr., MD at [place] [facility] ANGEL : TRAUMA [id number] / / Washer For 2.4mm/2.7mm/3.5m m - [id number] Implanted:Qty: 2 on 10/04/2022 by Donell Landry Jr., MD at [place] [facility] ANGEL : TRAUMA [id number] / / Screw Nlk V2 T10 Ft 3.5x28mm - [id number] Implanted:Qty: 2 on 10/04/2022 by Donell Landry Jr., MD at [place] [facility] ANGEL : TRAUMA [id number] / / documented as of this encounter Visit Diagnoses Diagnosis Periprosthetic fracture around internal prosthetic right hip joint, subsequent encounter- Primary Altered mental status, unspecified altered mental status type COPD, group B, by GOLD 2017 classification ([facility]) AVNRT (AV pola re-entry tachycardia) ([facility]) Other specified cardiac dysrhythmias Chronic diastolic congestive heart failure (HCC) Chronic diastolic heart failure BPH with obstruction/lower urinary tract symptoms Hypertrophy of prostate with urinary obstruction and other lower urinary tract symptoms (LUTS) Atherosclerosis of [place] coronary artery of [place] heart with stable angina pectoris (HCC) Cardiac pacemaker in situ Chronic pain due to trauma Late onset Alzheimer's dementia with mood disturbance, unspecified dementia severity ([facility]) documented in this encounter Advance Directives Documents on File Type Date Recorded Patient Chainstitch Zipper Setter Expl anation Advance Directives and Living Will 10/03/2022 ADVANCE DIRECTIVE / LIVING WILL Power of Mill Platform Supervisor 10/03/2022 POWER OF A TTORNEY * Full [...] Power of Attor mel? No Care Teams Letterpress Setter Relationship Specialty Start Date End Date Guera Jay MD [address] [place] [address] [place] [address] PCP - General Family Medicine 06/19/23 documented as of this encounter
--- OUTSIDE RECORDS SUMMARY | 2024-03-09 18:10 | External Medical Summary | Continuity Of Care Document ---
Author Name Unknown Address [address] [place] [address] Organization [facility] ( ) Care Team Providers Care Hand Plate Stacker Name Role Phone Dinora Franklin Primary Care Provider [phone] Problems Code Description Start Date End Date [...] Active I25.10 Atherosclerotic hear t disease of [place] coronary artery without angina pectoris 03/02/2024 Active Z98.61 Coronary angioplasty status 03/02/2024 00 Active I47.10 Supraventricular tachycardia, unspecified 03/020000 Active M54.50 Low back pain, unspecified 03/02/2024 0 Active VITAL SIGNS Date Time Diastolic blood pressure Systolic blood pressure Body height Body weight Temperature SpO2 Blood Sugar Pulse Respirations 61301 909 80974 5 75.00 mm[Hg] - Sitting 166.00 mm[Hg] - Sitting 70 NI 98.60 Oral 90.00 % 88.00/ min 24.00/min 910 72238 0 910 83860 2 193.00 NI 910 87725 8 77.00 mm[Hg] - Sitting 137.00 mm[Hg] - Sitting 97.50 Ear 92.00 % 70.00/ min 20.00/min 911 73862 0 89.00 mm[Hg] - Lying Down 171.00 mm[Hg] - Lying Down 96.30 Ear 92.00 % 76.00/ min 20.00/min 911 11695 1 90.00 mm[Hg] - Lying Down 185.00 mm[Hg] - Lying Down 96.90 Ear 83.00/ min 20.00/min 76227 911 84619 6 90.00 mm[Hg] - Lying Down 185.00 mm[Hg] - Lying Down 96.90 Ear 83.00/ min 20.00/min 15813 912 55428 0 24807 912 13148 5 90.00 mm[Hg] - Sitting 185.00 mm[Hg] - Sitting 96.90 Ear 83.00/ min 20.00/min 09254 912 55736 7 98.70 Oral 24193 912 97448 5 98.70 Oral 912 04833 7 75.00 mm[Hg] - Lying Down 135.00 mm[Hg] - Lying Down 98.10 X-Other 80.00/ min 20.00/min 19686 912 69594 8 90.00 mm[Hg] - Sitting 151.00 mm[Hg] - Sitting 96.60 Oral 92.00 % 73.00/ min 16.00/min 66749 912 01657 0 40781 913 93997 0 72.00 mm[Hg] - Lying Down 134.00 mm[Hg] - Lying Down 97.00 % 72.00/ min 20.00/min 42410 913 55241 4 188.00 NI Immunizations Vaccine Date Status COVID-19 09/15/2020 Completed COVID-19 09/22/2020 Completed COVID-19 10/06/2020 Completed COVID-19 10/13/2020 Completed Influenza 04/17/2022 Completed Influenza 06/19/2023 Completed (PCV13)Pneumococcal 08/16/2014 Completed (PPSV23)Pneumococcal 05/26/1996 Completed (PPSV23)Pneumococcal 04/13/2004 Completed (PPSV23)Pneumococcal 06/30/2012 Completed Shingles 08/19/2021 Completed Shingles 12/19/2021 Completed Tetanus 08/13/2009 Completed TDaP 08/28/2007 Completed
--- OUTSIDE RECORDS SUMMARY | 2024-03-09 18:11 | External Medical Summary | Summary of Care ---
Author Name Unknown Organization [facility] Address [address] [place] [address] Phone [phone] Care Team Providers Care Automobile Washer Steam Name Role Phone Guera Jay MD Primary Care Prov ider Reason for Visit * Reason Onset Date Comments Skilled Visit 03/03/2024 Encounter Details Date Type Department Care Team (Latest Contact Info) Description 03/03/2024 7:00 AM EDT Snf Visit [facility] [address] [place] [address] Marivel Casanova PA-C [address] [place] [address] Periprosthetic fracture around internal prosthetic right hip joint, subsequent encounter*; Syncope and collapse; AVNRT (AV pola re-entry tachycardia) (HCC); Chronic diastolic congestive heart failure (HCC); Granulomatous lung disease (HCC); Cardiac pacemaker in situ Allergies Active Allergy Reactions Criticality Noted Date Comments Adhesive Tape Other (Please comment) Low 03/09/2009 Affected area blisters. Latex 11/23/2014 Patient denies this allergy documented as of this encounter (statuses as of 03/03/2024) Medications Medication Sig Dispensed Refills Start Date End Date Status Acetaminophen 500 MG Oral Tablet Take 2 Tablets by mouth 3 times a day as needed for Pain, Moderate or Pain, Severe. Active Flutter DeviceIndications:B ronchiectasis without complication (HCC) Use for 10 min twice daily. pretreat with albuteorl. 1 Each 04/25/2022 Active Saline Nasal Blue Diamond 0.65 % Nasal Solution ([place]) Administer 1 Blue Diamond into nostril in the morning and 1 Blue Diamond at noon and 1 Blue Diamond in the evening and 1 Blue Diamond before bedtime. 30 mL 11/15/2022 Active Senna [...] 75 MG Oral Tablet (pLAVix)Indications :Atherosclerosis of [place] coronary artery of [place] heart with angina pectoris (HCC) Take 1 [...] for Pain, Severe. 40 Tablet 03/03/2024 Active documented as of this encounter (statuses as of 03/03/2024) Active Problems Problem Noted Date Diagnosed Date Periprosthetic fracture arou nd internal prosthetic right hip joint 03/03/2024 AVNRT (AV pola re-entry tachycardia) 03/03/2024 Urinary frequency 12/14/2022 Last Assessment & [...] 10/24/2020 Cervical spinal stenosis 01/27/2020 Atherosclerosis of [place] co ronary artery of [place] heart with stable angina pectoris 10/02/2019 Overview: [...] 1984 and 2006. Pain managed through [facility] pain clinic. 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 Pt to use OSH [facility] in [place]. Scheduling to fax orders. Chronic obstructive pulmonary disease 07/18/2022 08/08/2022 Overview: Per COPD GOLD Classification Last Assessment & Plan: COPD "RED FLAG" COPD symptoms: o Increased shortness of breath at rest ("I struggle to breathe even when watching TV", "I have to wear or turn up my oxygen just when I'm sitting on the couch") Medication Regimen o Class D - Inhaled Tgalijqzepavxz-HDEO-XSMP Combination Inhaler (Parveendebra) Exacerbation Mgt: o Rescue Kit in place [...] 01/22/2019 07/29/2020 Coronary artery disease invo lving [place] coronary artery of [place] heart without angina pectoris 09/19/2017 10/31/2021 Overview: W/ angina on PL [place] (actinic keratosis) 01/23/201710/24 Bradycardia 06/14/2016 09/19/2017 Essential hypertension with goal blood pressure less than 140/90 10/31/2015 07/04/2022 Last Assessment & Plan: bp stable-not on meds Monitor Chronic cholecystitis 03/10/20092010 ACTIVE CASE MANAGEMENT 03/07/200904/10 Overview: Chela Morris RN [phone] Other specified hypothyroidism 03/01/2008 08/16/2016 Overview: TSH 6.14 Abdominal pain, right upper quadrant 11/11/2006 02/13/2011 SKIN HYPERTRO-ATROPH NOS 11/14/2005 Asthma in COPD 07/05/2005 03/09/2019 Esophageal reflux 07/05/2005 09/19/2017 METATARSALGIA 06/03/2003 02/21/2017 Carotid stenosis, non-symptomatic 12/16/2002 07/27/2019 Mixed dyslipidemia 12/03/2002 9 Overview: Per Lipid Taxonomy. CAD (coronary artery disease) 09/30/2017 PURE HYPERCHOLESTEROLEM 03/0 11/2007 BENIGN NEOPLASM LG BOWEL Hemorrhoids, external without complications 02/21/2017 EXT ASTHMA W-O STAT ASTH 05/2006 Inflamed seborrheic keratosis 02/21/2017 Amputation of finger of left hand 01/15/2019 MEDICATION USE AGREEMENT 09/2010 Overview: Dr Parra [facility] Beta-hakan intolerance documented as of this encounter (statuses as of 03/03/2024) Immunizations Name Administration Dates Next Due COVID-19 [...] Progress Notes * Marivel Casanova PA-C - 03/03/2024 9:44 AM EDT Name: Gwyn Shaver Date of :1945 TRANSITION EVENT: Type: Skilled visit Date: March 03 Code Status: No Code This note pertains to care provided at [facility]. Please see facility medical record for original note. This note is not to be edited or addended in [facility]. Editing or addending needs to occur in the facilities medical record. Subjective: Gwyn Shaver is a 79 year old male. Patient being seen for skilled visit Chief Complaint Patient presents with Skilled Visit HPI: Pt here for rehabilitation following syncopal episode and fall sustaining perioprosthetic right hip fx. Non surgical treatment currently in place. Pt found to have AVNRT. He has hx of PPM in situ. Pt is having severe right hip pain with any Therapy or nursing care which requires moving patient. He is currently being treated with prn Tylenol and Tramadol for mod to severe pain. In hospital notes, pt became obtunded with AMS determined to be due to IV Morphine and compounding narcotic medications. Pt required narcan in hospital. Pt states he cannot sleep or peform his ADLs due to significantpain. Vital signs stable. Did not eat breakfast today. 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 01/08/2019 CO-M2 [place] Benign neoplasm of colon 06/2006 large adenomatous [...] toe fractured COPD (chronic obstructive pulmonary disease) (HCC) COPD, severity to be determined ([facility]) 03/2004 Admitted to [facility], Dr Goncalves Coronary artery disease involving [place] coronary artery of [place] heart without angina pectoris 09/19/2017 W/ angina on PL Coronary atherosclerosis of [place] coronary artery Derangement of meniscus 12/06/2006 complex tear medial and lateral left meniscus with chondromalacia medial compartment Diastasis of muscle DIASTOLIC DYSFUNCTION Diverticulosis of colon VALDOVINOS (dyspnea on exertion) 08/17/2020 DVT of lower extremity (deep venous thrombosis) ([facility]) 01/29/2014 left posterior tibial and peroneal vein Emphysema, unspecified ([facility]) GERD (gastroesophageal reflux disease) Hemorrhoids, external without complications Idiopathic scoliosis Inflamed seborrheic keratosis INFORMATION 2011 pain stimulator placed [facility] Lung nodule Major depressive disorder, single episode, moderate ([facility]) 07/15/2009 started on Cymbalta MEDICATION USE AGREEMENT 05/2008 Dr Parra [facility] Mixed dyslipidemia Need for hepatitis C [...] by Yudelka Kim MD at [facility]ARDI[facility] CARDIAC CATH SCANNED RESULT 10/18/2011 ostial disease, 30% circ, normal EF COLONOSCOPY W/ LESION REMOVAL, SNARE 06/28/2006 polpy ws resected at 30cm and retrieved-DR MEHTA COLONOSCOPY, DIAGNOSTIC (RECTUM) 08/30/2016 sigmoid diverticulosis, repeat 5 yrs/[facility] COLONOSCOPY, REMOVE LESION, W/SNARE 10/24/2007 Dr Mehta 1 cm polyp at 20 cm, snared COLORECTAL CANCER SCREEN; COLON 03/03/1998 colonoscopy to cecum shows only scattered diverticuli CORONARY ARTERY DILATION, BALLOON 10/17/1997 Dr Day, [facility] CT ABDOMEN W IV AND W ORAL [...] possible right tracheomalacia CV STRESS (PERSANTINE) 12/27/[address] [facility] [address] saleh: symptoms and ekg changes suggesting but not diagnostic of pharmacologically induced myocardial ischemia with dipyridamole. DESTRUCTION PREMALIGNANT LESION 1ST 02/11/[address] Mae Pena- [place] ECHO, COMPLETE (2D), TRANS-THORACIC 03/02/2009 mod LVH, [...] reflux on bx, repeat 1 yr / [facility] EGD, FLEXIBLE, DIAGNOSTIC 01/08/2019 Mendez's esophagitis, repeat 1 yr/ESOPHAGOGASTRODUODENOSCOPY (EGD), FLEXIBLE, TRANSORAL, DIAGNOSTIC performed by Raúl Dela Cruz MD at ENDOSCOPY [facility] EGD, FLEXIBLE, DIAGNOSTIC 06/02/2021 acid reflux, hiatal hernia / ESOPHAGOGASTRODUODENOSCOPY (EGD), FLEXIBLE, TRANSORAL, DIAGNOSTIC performed by Raúl Dela Cruz MD at ENDOSCOPY [facility] ELECTRIC STIMULATION THERAPY [facility] EMG & NCV, 2 EXTREMITIES 07/26/2006 mild sensory neuropathy FEMUR FX, REPAIR Left 10/04/2022 OPEN TREATMENT DISTAL FEMORAL CONDYLE FRACTURE performed by Donell Landry Jr., MD at OR [facility] FLEX SIG, GI REFERRAL OP 02/11/1998 small sessile polyp at 24 cm, but not lseen on colonoscopy FLUORO UPPER GI WITHOUT AIR WO KUB 06/30/2008 normal swallowing, prominant diverticula in duodenum. [facility] KNEE ARTHROSCOPY/MENISCECTOMY left knee, maybe in [...] stomacy PACEMAKER-DEFIBRILLATOR ELECTRODE INSERT, DUAL N/A 06/06/2016 [facility] REPLANTATION OF DIGIT, COMPLETE 1997? Buzz saw accident to left hand and was Life Flighted to [place] for amputation of left index fingerand revision of several others REVISION OF TOTAL HIP JOINT SURGERY 05/1995 [facility]. Fell and broke hip in 1984 REVISION OF TOTAL HIP JOINT SURGERY 04/2007 right redo total hip SACROILIAC JOINT INJECT W/GUIDANCE 08/01/2020 INJECTION SACROILIAC JOINT performed by Gurpreet Zamora DO at OR [facility] TOTAL HIP REPLACEMENT & PROSTHESIS 1986 left [...] Narrative No pets. No mold. [facility] INFORMATIONENIVIRONMENTAL HISTORY:House: Two StoryType of Heating System: Oil and Forced airAir Conditioning: Yes CentralBasement: Unfinished, Dampness and DehumidifierHome have cockroaches: NoIrritants in the home: NonePatient's bedroom: FLOOR: second TYPE OF SAMIA: CarpetingBeds: AMOUNT : 1 TYPE OF BEDS: Mattress and Box springPillows: AMOUNT: 1 TYPE OF PILLOWS: Synthetic (hypoallergenic, polyester)Bedroom contains: Minimal itemsPets: 1 dog(s)Lives on a farm: NoWorked in the [employer] for 22 yrs. quit 1987; on disability [...] Stability Do you currently live in a usp or have no steady place to sleep [...] list as this cannot be edited in [employer]. Review of Systems: Constitutional ROS: No change in weight, + weakness, + fatigue and No fevers, sweats, or chills Eye ROS: No recent significant change in vision, No eye pain, redness, discharge and No diplopia Ear ROS: No ear pain, No drainage, No tinnitus or vertigo and No recent change in hearing Nose ROS: No nasal stuffiness and No [...] the most recent facilities vitals. General: alert, moderate distress, well nourished and well developed Eye [...] sounds and no masses or organomegaly Extremities: markedly tender right hip no edema, no clubbing, no cyanosis Neuro Exam: alert & oriented x 3 with fluent speech, no focal motor/sensory deficits Skin: skin color, texture, turgor are normal, no rashes or significant lesions ASSESSMENT: Periprosthetic fracture around internal prosthetic right hip joint, subsequent encounter (Primary) Pt having severe hip pain affecting ADLs and sleep No relief with prn Tylenol and Tramadol Will make Tylenol 500mg QID routine Willl continue Tramadol 50mg Q six hours prn moderate pain Oxycodone 5mg Q six hours prn severe pain Will monitor pt very closely for mental status and mentation Syncope and collapse No further syncope AVNRT (AV pola re-entry tachycardia) (HCC) Pacemaker in place Chronic diastolic congestive heart failure (HCC) No active CHF Continue to monitor weights in SNF Granulomatous lung disease (HCC) Stable breathing Continue Duonebs, Mucinex and Anoro ellipita as directed Cardiac pacemaker in situ Pacemaker in place PLAN: Continue present medication(s):as ordered. Snf Home Treatment Given: Lab Draw CBC and BMP next lab draw Electronically signed by: Marivel Casanova PA-C Over 45 minutes were spent in this visit more than half the time was spent counselling or coordinating care. documented in this encounter Plan of Treatment Upcoming Encounters Date Type Department Care Team (Late st Contact Info) Description 04/06/2024 3:00 PM EDT Nurse Only Ancillary [address] [place] [address] Gamal Nurse [address] [place] [address] 04/21/2024 11:15 AM EDT Office Visit Cardiology, [facility] [address] [facility] [place] [address] Maude Pierce Bushra, [address] [facility] [place] [address] 06/22/2024 1:40 PM EST Office Visit Dermatology [address] [place] [address] Nia Hong PA-C [address] [place] [address] [place] [address] 08/13/2024 11:30 AM EST Office Visit Cardiology [address] [place] [address] Reji Mendez PA-C [address] [place] [address] 12/21/2024 9:00 AM EDT Office Visit Family Medicine [address] [place] [address] Guera Jay MD [address] [place] [address] [place] [address] Health Maintenance Due Date Last Done Comments [...] this encounter Medical Devices Implanted Type Area Truckload Checker Device Identifier Shelf Expiration Date Model / Serial / Lot Femoral Nail Retrograde Implanted:Qty: 1 on 10/04/2022 by Donell Landry Jr., MD at OR [facility] Left: Knee ANGEL 02/18/2031 [id number] / / [id number] Screw Nlk A3 Ti 4.5x36mm - [id number] Implanted:Qty: 1 on 10/04/2022 by Donell Landry Jr., MD at OR [facility] ANGEL : TRAUMA [id number] / / 5.0 Compression Plate Implanted:Qty: 1 on 10/04/2022 by Donell Landry Jr., MD at OR [facility] ANGEL [id number] / / Screw T2 Alpha Adv Lck 5x85 - [id number] Implanted:Qty: 1 on 10/04/2022 by Donell Landry Jr., MD at OR [facility] Left: Knee ANGEL : TRAUMA 07/24/2031 2361-5085S / / [id number] Screw T2 Alpha Adv Lck 5x65 - [id number] Implanted:Qty: 1 on 10/04/2022 by Donell Landry Jr., MD at OR [facility] Left: Knee ANGEL : TRAUMA 07/24/2032 2361-5065S / / [id number] Screw T2 Alpha Adv Lck 5x85 - [id number] Implanted:Qty: 1 on 10/04/2022 by Donell Landry Jr., MD at OR [facility] Left: Knee ANGEL : TRAUMA 02/22/2032 2361-5085S / / [id number] Screw T2 Alpha Lock 5x35mm - [id number] Implanted:Qty: 1 on 10/04/2022 by Donell Landry Jr., MD at OR [facility] Left: Knee ANGEL : TRAUMA 07/24/2032 2360-5035S / / [id number] Screw Gina Lk A3 Ti 5x12mm - [id number] Implanted:Qty: 1 on 10/04/2022 by Donell Landry Jr., MD at OR [facility] ANGEL : TRAUMA [id number] / / Screw Gina Lk A3 Ti 5x16mm - [id number] Implanted:Qty: 1 on 10/04/2022 by Donell Landry Jr., MD at OR [facility] ANGEL : TRAUMA [id number] / / Washer For 2.4mm/2.7mm/3.5m m - [id number] Implanted:Qty: 2 on 10/04/2022 by Donell Landry Jr., MD at OR [facility] ANGEL : TRAUMA [id number] / / Screw Nlk V2 T10 Ft 3.5x28mm - [id number] Implanted:Qty: 2 on 10/04/2022 by Donell Landry Jr., MD at OR [facility] ANGEL : TRAUMA [id number] / / documented as of this encounter Visit Diagnoses Diagnosis Periprosthetic fracture around internal prosthetic right hip joint, subsequent encounter- Primary Syncope and collapse AVNRT (AV pola re-entry tachycardia) (HCC) Other specified cardiac dysrhythmias Chronic diastolic congestive heart failure (HCC) Chronic diastolic heart failure Granulomatous lung disease (HCC) Other diseases of lung, not elsewhere classified Cardiac pacemaker in situ documented in this encounter Advance Directives Documents on File Type Date Recorded Patient Head Tennis Professional Expl anation Advance Directives and Living Will 10/03/2022 ADVANCE DIRECTIVE / LIVING WILL Power of Offal Trimmer 10/03/2022 POWER OF A TTORNEY * Full [...] Power of Attor mel? No Care Teams Automobile Washer Steam Relationship Specialty Start Date End Date Guera Jay MD [address] [place] [address] [place] [address] PCP - General Family Medicine 06/19/23 documented as of this encounter
--- OUTSIDE RECORDS SUMMARY | 2024-03-09 18:11 | External Medical Summary | Summary of Care ---
Author Name Unknown Organization [facility] Address [address] [place] [address] Phone [phone] Care Team Providers Care Casing Material Weigher Name Role Phone Guera Jay MD Primary Care Prov ider Reason for Visit * Reason Onset Date Comments Jail Visit 03/03/2024 Encounter Details Date Type Department Care Team (Latest Contact Info) Description 03/02/2024 1:00 PM EDT Jail Visit [address] [address] Marivel Casanova PA-C [address] [place] [address] Syncope and collapse*; Periprosthetic fracture around internal prosthetic right hip joint, initial encounter ([facility]); Hematoma of right iliopsoas muscle, initial encounter; AVNRT (AV pola re-entry tachycardia) ([facility]); Orthostatic hypotension; Symptomatic bradycardia; Cardiac pacemaker in situ; COPD exacerbation ([facility]); Chronic diastolic congestive heart failure ([facility]); BPH with obstruction/lower urinary tract symptoms; 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 40 Tablet 03/02/2024 Active Acetaminophen 325 MG Oral Tablet (Tylenol) [...] cut, crush or chew. 03/03/2024 Active Ipratropium [place] 0.02 % Inhalation Solution (Atrovent) Inhale 1.25 [...] by mouth in the morning. 03/03/2024 Active Acetaminophen 500 MG Oral Tablet Take 2 Tablets by mouth 3 times a day as needed for Pain, Moderate or Pain, Severe. 4 Discontinue d(Medicatio n List Clean Up) Saline Nasal [place] 0.65 % Nasal Solution ([place]) Administer 1 [place] into nostril in the morning and 1 [place] at noon and 1 [place] in the evening and 1 [place] before bedtime. 30 mL 11/15/2022 4 Discontinue d(Medicatio n List Clean Up) Senna 8.6 MG Oral Tablet Take 2 Tablets by mouth in the morning and 2 Tablets before bedtime. 60 Tablet 1 11/15/2022 4 Discontinue d(Medicatio n List Clean Up) Polyethylene Glycol 3350 17 GM Oral Packet (Miralax) TAKE 1 PACKET BY MOUTH IN THE MORNING AND 1 PACKET BEFORE BEDTIME 14 Each 11/22/2022 4 Discontinue d(Medicatio n List Clean Up) Vitamin D3 25 MCG (1000 UT) Oral Tablet (Vitamin D3) TAKE ONE TABLET BY MOUTH TWICE A DAY IN THE MORNING AND IN THE EVENING 60 Tablet 11/22/2022 4 Discontinue d(Medicatio n List Clean Up) Lidocaine 4 % External Patch (Aspercreme) APPLY 1 PATCH TOPICALLY TO AFFECTED AREA EVERY 12 HOURS 30 Patch 11/22/2022 4 Discontinue d(Medicatio n List Clean Up) Ferrous Sulfate 325 (65 Fe) MG Oral Tablet (Feosol) TAKE ONE TABLET BY MOUTH TWICE A DAY IN THE MORNING AND BEFORE BEDTIME 60 Tablet 11/22/2022 4 Discontinue d(Medicatio n List Clean Up) Dextran 70-Hypromellose 0.1-0.3 % Ophthalmic Solution INSTILL 1 DROP INTO AFFECTED EYE(S) FOUR TIMES A DAY NEEDED FOR DRY EYES 15 mL 1 11/22/2022 4 Discontinue d(Medicatio n List Clean Up) Docusate Sodium 100 MG Oral Capsule (Colace) TAKE ONE CAPSULE BY MOUTH TWICE A DAY IN THE MORNING AND BEFORE BEDTIME 60 Capsule 5 11/22/2022 4 Discontinue d(Medicatio n List Clean Up) Fluticasone Propionate 50 MCG/ACT Nasal Suspension (Flonase)Indicati ons:Deviated nasal septum,Chronic maxillary sinusitis,Acquire d deformity of nose INSTILL 2 SPRAYS INTO EACH NOSTRIL DAILY NEEDED 16 mL 5 11/22/2022 4 Discontinue d(Medicatio n List Clean Up) Albuterol Sulfate 108 (90 Base) MCG/ACT Inhalation Aerosol Powder Breath ActivatedIndicati ons:Bronchiectasi s without complication (HCC),Moderate persistent asthma without complication INHALE 2 PUFFS BY MOUTH EVERY 4 HOURS NEEDED FOR SHORTNESS OF BREATH, WHEEZING 3 Each 3 11/22/2022 4 Discontinue d(Medicatio n List Clean Up) documented as of this encounter (statuses as [...] 10/24/2020 Cervical spinal stenosis 01/27/2020 Atherosclerosis of [place] 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 Pain managed through [facility] pain clinic. 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 12/22 Overview: CO-M2 [place] Last Assessment & Plan: Follows with GI [...] and pelvis placed. Pt to use OSH [facility] in [place]. Scheduling to fax orders. Chronic obstructive pulmonary disease 07/18/2022 08/08/2022 Overview: Per COPD GOLD Classification Last Assessment & Plan: COPD "RED FLAG" COPD symptoms: o Increased shortness of breath at rest ("I struggle to breathe even when watching TV", "I have to wear or turn up my oxygen just when I'm sitting on the couch") Medication Regimen o Class D - Inhaled Brochwtxktcqkv-YFYO-JQPU Combination Inhaler (Trellegy) Exacerbation Mgt: o Rescue [...] & Plan: Stable per last echo 2020. VALDOVNIOS (dyspnea on exertion) 08/17/2020 Last Assessment & Plan: Per walk test in June 2022, patient did not require oxygen. Postherpetic neuralgia 07/08/202007/03 Asthma with severity to be determined 08/31/2019 04/25/2022 Stable angina 01/22/2019 06/13/2023 Overview: Stable angina is included in combo code with cad 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 01/22/2019 07/29/2020 Coronary artery disease invo lving [place] coronary artery of [place] heart without angina pectoris 09/19/2017 10/31/2021 Overview: [...] MEDICATION USE AGREEMENT 09/2010 Overview: Dr Parra [facility] Beta-hakan intolerance documented as of this encounter [...] No 01/29/2024 Does the household have a [facility] source of income? (Household - for ages [...] Care Team (Late st Contact Info) Description 03/04/2024 8:00 AM EDT Jail Visit [address] [place] [address] Dinora Franklin MD [address] [place] [address] [place] [address] 04/06/2024 3:00 PM EDT Nurse Only Ancillary [address] [place] [address] [place], Nurse Annual Wellness [address] [place] [address] [place] [address] 04/21/2024 11:15 AM EDT Office Visit Cardiology, [facility] [address] [facility] [place] [address] Maude Pierce, [address] [place] [address] 06/22/2024 1:40 PM EST Office Visit Dermatology [address] [place] [address] Nia Hong PA-C [address] [place] [address] [place] [address] 08/13/2024 11:30 AM EST Office Visit Cardiology [address] [place] [address] Reji Mendez PA-C [address] [place] [address] 12/21/2024 9:00 AM EDT Office Visit Family Medicine [address] [place] [phone] Guera Jay MD [address] [place] [address] [place] [address] Health Maintenance Due Date Last Done Comments Alpha-1 Antitrypsin 02/06/1963 Adult Wellness Visit 02/06/2012 Colonoscopy 08/30/2021 08/30/2016 TSH 01/10/2024 01/09/2023, 12/22, 11/14/2022, Additional history exists COVID-19 Vaccine (2022- season) 2024 10/13/2020, 09/22/2020 Influenza Vaccine (FLU [...] this encounter Medical Devices Implanted Type Area Employment Legal Assistant Device Identifier Shelf Expiration Date Model / Serial / Lot Femoral Nail Retrograde Implanted:Qty: 1 on 10/04/2022 by Donell Landry Jr., MD at OR [facility] [place] Left: Knee ANGEL 02/18/2031 2339-1128S / / [id number] Screw Nlk A3 Ti 4.5x36mm - [id number] Implanted:Qty: 1 on 10/04/2022 by Donell Landry Jr., MD at OR [facility] [place] ANGEL : TRAUMA [id number] / / 5.0 Compression Plate Implanted:Qty: 1 on 10/04/2022 by Donell Landry Jr., MD at OR [facility] [place] ANGEL [id number] / / Screw T2 Alpha Adv Lck 5x85 - [id number] Implanted:Qty: 1 on 10/04/2022 by Donell Landry Jr., MD at OR [facility] [place] Left: Knee ANGEL : TRAUMA 07/24/2031 2361-5085S / / [id number] Screw T2 Alpha Adv Lck 5x65 - [id number] Implanted:Qty: 1 on 10/04/2022 by Donell Landry Jr., MD at OR [facility] [place] Left: Knee ANGEL : TRAUMA 07/24/2032 2361-5065S / / [id number] Screw T2 Alpha Adv Lck 5x85 - [id number] Implanted:Qty: 1 on 10/04/2022 by Donell Landry Jr., MD at OR [facility] [place] Left: Knee ANGEL : TRAUMA 02/22/2032 2361-5085S / / [id number] Screw T2 Alpha Lock 5x35mm - [id number] Implanted:Qty: 1 on 10/04/2022 by Donell Landry Jr., MD at OR [facility] [place] Left: Knee ANGEL : TRAUMA 07/24/2032 2360-5035S / / [id number] Screw Gina Lk A3 Ti 5x12mm - [id number] Implanted:Qty: 1 on 10/04/2022 by Donell Landry Jr., MD at OR [facility] [place] ANGEL : TRAUMA [id number] / / Screw Gina Lk A3 Ti 5x16mm - [id number] Implanted:Qty: 1 on 10/04/2022 by Donell Landry Jr., MD at OR [facility] [place] ANGEL : TRAUMA [id number] / / Washer For 2.4mm/2.7mm/3.5m m - [id number] Implanted:Qty: 2 on 10/04/2022 by Donell Landry Jr., MD at OR [facility] [place] ANGEL : TRAUMA [id number] / / Screw Nlk V2 T10 Ft 3.5x28mm - [id number] Implanted:Qty: 2 on 10/04/2022 by Donell Landry Jr., MD at OR [facility] [place] ANGEL : TRAUMA [id number] / / documented as of this encounter Visit Diagnoses Diagnosis Syncope and collapse- Primary Periprosthetic fracture around internal prosthetic right hip joint, initial encounter ([facility]) Hematoma of right iliopsoas muscle, initial encounter AVNRT (AV pola re-entry tachycardia) ([facility]) Other specified cardiac dysrhythmias Orthostatic hypotension Symptomatic bradycardia Other specified cardiac dysrhythmias Cardiac pacemaker in situ COPD exacerbation ([facility]) Obstructive chronic bronchitis with exacerbation Chronic diastolic congestive heart failure (HCC) Chronic diastolic heart failure BPH with obstruction/lower urinary tract symptoms Hypertrophy of prostate with urinary obstruction and other lower urinary tract symptoms (LUTS) Late onset Alzheimer's dementia with mood disturbance, unspecified dementia severity (HCC) Acquired hypothyroidism Unspecified hypothyroidism Vitamin B12 deficiency Other B-complex deficiencies documented in this encounter Advance Directives Documents on File Type Date Recorded Patient Paper Mill Manager Expl anation Advance Directives and Living Will 10/03/2022 ADVANCE DIRECTIVE / LIVING WILL Power of Claims Analyst 10/03/2022 POWER OF A TTORNEY * [...] Power of Attor mel? No Care Teams Casing Material Weigher Relationship Specialty Start Date End Date Guera Jay MD [address] [place] [address] [place] [address] PCP - General Family Medicine 06/19/23 documented as of this encounter
--- OUTSIDE RECORDS SUMMARY | 2024-03-09 18:11 | External Medical Summary | Summary of Care ---
Author Name Unknown Organization [facility] Address [address] [place] [address] Phone [phone] Care Team Providers Care Paper Machine Supervisor Name Role Phone Guera Jay MD Primary Care Prov ider Encounter Details Date Type Department Care Team (Late st Contact Info) Description 03/04/2024 Orders Only Lab Mobile Phlebotomy [facility] [address] [facility] [place] [address] Dinora Franklin MD [address] [place] [address] [place] [phone] HTN, goal below 140/90*; Pediculus capitis; Vitamin D deficiency Allergies Active Allergy Reactions Criticality Noted [...] 75 MG Oral Tablet (pLAVix)Indications :Atherosclerosis of hoh coronary artery of hoh heart with angina pectoris (HCC) Take 1 [...] cut, crush or chew. 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 Pain managed through [facility] pain clinic. 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 in [place]. Scheduling to fax orders. Chronic obstructive pulmonary disease 07/18/2022 08/08/2022 Overview: Per COPD GOLD Classification Last Assessment & Plan: COPD "RED FLAG" COPD symptoms: o Increased shortness of breath at rest ("I struggle to breathe even when watching TV", "I have to wear or turn up my oxygen just when I'm sitting on the couch") Medication Regimen o Class D - Inhaled Dvmjykhoueydcq-BADJ-JGUB Combination Inhaler (Trellegy) Exacerbation Mgt: o Rescue [...] 01/22/2019 07/29/2020 Coronary artery disease invo lving hoh coronary artery of hoh heart without angina pectoris 09/19/2017 10/31/2021 Overview: W/ angina on [place] (actinic keratosis) 01/23/201710/24 Bradycardia 06/14/2016 09/19/2017 Essential hypertension with goal blood pressure less than 140/90 10/31/2015 07/04/2022 Last Assessment & Plan: bp stable-not on meds Monitor Chronic cholecystitis 03/10/20092010 ACTIVE CASE MANAGEMENT 03/07/200904/10 Overview: Chela Morris, RN [phone] Other specified hypothyroidism 03/01/2008 08/16/2016 Overview: TSH [...] MEDICATION USE AGREEMENT 09/2010 Overview: Dr Parra [facility] Beta-hakan intolerance documented as of [...] Team (Late st Contact Info) Description 03/04/2024 5:00 AM EDT Laboratory Lab Mobile Phlebotomy [facility] [address] [facility] [place] [address] [place] [address] Arrived 03/04/2024 8:00 AM EDT Assisted Visit [address] [place] [address] Dinora Franklin MD [address] [place] [address] [place] [address] 04/06/2024 3:00 PM EDT Nurse Only Ancillary [address] [place] [address] [place], Nurse Annual Wellness [address] [place] [address] [place] [address] 04/21/2024 11:15 AM EDT Office Visit Cardiology, [facility] [address] [place] [address] Maude Pierce, [address] [place] [address] 06/22/2024 1:40 PM EST Office Visit Dermatology [address] [place] [address] Nia Hong PA-C [address] [place] [address] [place] [address] 08/13/2024 11:30 AM EST Office Visit Cardiology [address] [place] [address] Reji Mendez PA-C [address] [place] [address] 12/21/2024 9:00 AM EDT Office Visit Family Medicine [address] [place] [phone] Guera Jay MD [address] [place] [address] [place] [address] Scheduled Orders Name Type Priority Associated Diagnoses Orde r Schedule CBC WITH WBC DIFFERENTIAL Lab Routine HTN, goal below 140/90 Pediculus capitis Vitamin D deficiency Expected: 03/04/2024, Expires: 03/04/2025 BASIC METABOLIC PANEL Lab Routine HTN, goal below 140/90 Pediculus capitis Vitamin D deficiency Expected: 03/04/2024, Expires: 03/04/2025 25-HYDROXY VITAMIN D Lab Routine HTN, goal below 140/90 Pediculus capitis Vitamin D deficiency Expected: 03/04/2024, Expires: 03/04/2025 Health Maintenance Due Date Last Done Comments [...] this encounter Medical Devices Implanted Type Area Music Writer Device Identifier Shelf Expiration Date Model / Serial / Lot Femoral Nail Retrograde Implanted:Qty: 1 on 10/04/2022 by Donell Landry Jr., MD at OR [facility] [place] Left: Knee ANGEL 02/18/2031 2339-1128S / / [id number] Screw Nlk A3 Ti 4.5x36mm - [id number] Implanted:Qty: 1 on 10/04/2022 by Donell Landry Jr., MD at OR [facility] [place] ANGEL : TRAUMA [id number] / / 5.0 Compression Plate Implanted:Qty: 1 on 10/04/2022 by Donell Landry Jr., MD at OR [facility] ANGEL [id number] / / Screw T2 Alpha Adv Lck 5x85 - [id number] Implanted:Qty: 1 on 10/04/2022 by Donell Landry Jr., MD at OR [facility] [place] Left: Knee ANGEL : TRAUMA 07/24/2031 2361-5085S / / [id number] Screw T2 Alpha Adv Lck 5x65 - [id number] Implanted:Qty: 1 on 10/04/2022 by Donell Landry Jr., MD at OR [facility] [place] Left: Knee ANGEL : TRAUMA 07/24/2032 2361-5065S / / [id number] Screw T2 Alpha Adv Lck 5x85 - [id number] Implanted:Qty: 1 on 10/04/2022 by Donell Landry Jr., MD at OR [facility] [place] Left: Knee ANGEL : TRAUMA 02/22/2032 2361-5085S / / [id number] Screw T2 Alpha Lock 5x35mm - [id number] Implanted:Qty: 1 on 10/04/2022 by Donell Landry Jr., MD at OR [facility] [place] Left: Knee ANGEL : TRAUMA 07/24/2032 2360-5035S / / [id number] Screw Gina Lk A3 Ti 5x12mm - [id number] Implanted:Qty: 1 on 10/04/2022 by Donell Landry Jr., MD at OR [facility] [place] ANGEL : TRAUMA [id number] / / Screw Gina Lk A3 Ti 5x16mm - [id number] Implanted:Qty: 1 on 10/04/2022 by Donell Landry Jr., MD at OR [facility] ANGEL : TRAUMA [id number] / / Washer For 2.4mm/2.7mm/3.5m m - [id number] Implanted:Qty: 2 on 10/04/2022 by Donell Landry Jr., MD at OR [facility] ANGEL : TRAUMA [id number] / / Screw Nlk V2 T10 Ft 3.5x28mm - [id number] Implanted:Qty: 2 on 10/04/2022 by Donell Landry Jr., MD at OR [facility] ANGEL : TRAUMA [id number] / / documented as of this encounter Visit Diagnoses Diagnosis HTN, goal below 140/90- Primary Unspecified essential hypertension Pediculus capitis Pediculus capitis (head louse) Vitamin D deficiency Unspecified vitamin D deficiency documented in this encounter Advance Directives Documents on File Type Date Recorded Patient Tool And Die Repairer Expl anation Advance Directives and Living Will 10/03/2022 ADVANCE DIRECTIVE / LIVING WILL Power of Configuration Release Manager 10/03/2022 POWER OF A TTORNEY * [...] Power of Attor mel? No Care Teams Paper Machine Supervisor Relationship Specialty Start Date End Date Guera Jay MD [address] [place] [address] [place] [address] PCP - General Family Medicine 06/19/23 documented as of this encounter
--- OUTSIDE RECORDS SUMMARY | 2024-03-09 18:11 | External Medical Summary | Summary of Care ---
Author Name Unknown Organization [facility] Address [address] [place] [address] Phone [phone] Care Team Providers Care Carbon Paste Mixer Operator Name Role Phone Guera Jay MD Primary Care Prov ider Reason for Visit * Reason Onset Date Comments Medication Refill 03/03/2024 Encounter Details Date Type Department Care Team (Late st Contact Info) Description 03/03/2024 Refill [facility] [address] [place] [address] Marivel Casanova PA-C [address] [place] [address] Allergies Active Allergy Reactions Criticality Noted Date [...] albuteorl. 1 Each 04/25/2022 Active Saline Nasal [place] 0.65 % Nasal Solution ([place]) Administer 1 [place] into nostril in the morning and 1 [place] at noon and 1 [place] in the evening and 1 [place] before bedtime. 30 mL 11/15/2022 Active Senna [...] meds at length -albuterol rx sent to [place] [facility] -Use Advair BID -has rescue kit -CXR, exercise pulse ox -f/u t/c and home visit next week -needs pulm f/u Mediastinal adenopathy 04/25/2022 Chronic back pain greater than 3 months duration 04/17/2022 Hx of actinic keratosis 10/24/2020 Cervical spinal stenosis 01/27/2020 Atherosclerosis of [place] [...] replacement 1984 and 2006. Pain managed through [facility] pain clinic. History of amputation [...] to use OSH [facility] in [place]. Scheduling to fax orders. Chronic obstructive pulmonary disease 07/18/2022 08/08/2022 Overview: Per COPD GOLD Classification Last Assessment & Plan: COPD "RED FLAG" COPD symptoms: o Increased shortness of breath at rest ("I struggle to breathe even when watching TV", "I have to wear or turn up my oxygen just when I'm sitting on the couch") Medication Regimen o Class D - Inhaled Knopbwnbrhbxau-VBKF-YOVY Combination Inhaler (Trellegy) Exacerbation Mgt: o Rescue [...] MANAGEMENT 03/07/200904/10 Overview: Chela Morris, RN [phone] Other specified hypothyroidism 03/01/2008 08/16/2016 Overview: TSH [...] MEDICATION USE AGREEMENT 09/2010 Overview: Dr Parra [facility] Beta-hakan intolerance documented as of [...] encounter Miscellaneous Notes * Telephone Encounter - Marivel Casanova PA-C - 03/03/2024 9:36 AM EDT RX OXYCODONE 5MG Q SIX HOURS PRN SEVERE PAIN #40 R0 SENT ELECTRONICALLY TO [facility] documented in this encounter Plan of Treatment Upcoming Encounters Date Type Department Care Team (Late st Contact Info) Description 04/06/2024 3:00 PM EDT Nurse Only Ancillary [address] [place] [address] [place], Nurse [address] [place] [address] 04/21/2024 11:15 AM EDT Office Visit Cardiology, [facility] [address] [facility] [place] [address] Maude Pierce, [address] [facility] [place] [phone] 06/22/2024 1:40 PM EST Office Visit Dermatology [address] [place] [address] Nia Hong PA-C [address] [place] [address] [place] [address] 08/13/2024 11:30 AM EST Office Visit Cardiology [address] [place] [address] Reji Mendez PA-C [address] [place] [address] 12/21/2024 9:00 AM EDT Office Visit Family Medicine [address] [place] [phone] Guera Jay MD [address] [place] [address] [place] [address] Health Maintenance Due Date Last Done Comments [...] this encounter Medical Devices Implanted Type Area Dog License Officer Supervisor Device Identifier Shelf Expiration Date Model / Serial / Lot Femoral Nail Retrograde Implanted:Qty: 1 on 10/04/2022 by Donell Landry Jr., [place] [facility] [place]nee ANGEL 02/18/2031 2339-1128S / / [id number] Screw Nlk A3 Ti 4.5x36mm - [id number] Implanted:Qty: 1 on 10/04/2022 by Donell Landry Jr., [place] [facility] [place] TRAUMA [id number] / / 5.0 Compression Plate Implanted:Qty: 1 on 10/04/2022 by Donell Landry Jr., [place] [facility] [place]EL [id number] / / Screw T2 Alpha Adv Lck 5x85 - [id number] Implanted:Qty: 1 on 10/04/2022 by Donell Landry Jr., [place] [facility] [place] Knee ANGEL : TRAUMA 07/24/2031 2361-5085S / / [id number] Screw T2 Alpha Adv Lck 5x65 - [id number] Implanted:Qty: 1 on 10/04/2022 by Donell Landry Jr., [place] [facility] [place] Knee ANGEL : TRAUMA 07/24/2032 2361-5065S / / [id number] Screw T2 Alpha Adv Lck 5x85 - [id number] Implanted:Qty: 1 on 10/04/2022 by Donell Landry Jr., [place] [facility] [place] Knee ANGEL : TRAUMA 02/22/2032 2361-5085S / / [id number] Screw T2 Alpha Lock 5x35mm - [id number] Implanted:Qty: 1 on 10/04/2022 by Donell Landry Jr., [place] [facility] [place] Knee ANGEL : TRAUMA 07/24/2032 2360-5035S / / [id number] Screw Gina Lk A3 Ti 5x12mm - [id number] Implanted:Qty: 1 on 10/04/2022 by Donell Landry Jr., MD at [facility] ANGEL : TRAUMA [id number] / / Screw Gina Lk A3 Ti 5x16mm - [id number] Implanted:Qty: 1 on 10/04/2022 by Donell Landry Jr., MD at [facility] ANGEL : TRAUMA [id number] / / Washer For 2.4mm/2.7mm/3.5m m - [id number] Implanted:Qty: 2 on 10/04/2022 by Donell Landry Jr., [place] [facility] [place] : TRAUMA [id number] / / Screw Nlk V2 T10 Ft 3.5x28mm - [id number] Implanted:Qty: 2 on 10/04/2022 by Donell Landry Jr., [place] [facility] [place]EL : TRAUMA [id number] / / documented as of this encounter Advance Directives Documents on File Type Date Recorded Patient Horizontal Drill Operator Expl anation Advance Directives and Living Will 10/03/2022 ADVANCE DIRECTIVE / LIVING WILL Power of Brokerage Branch Manager 10/03/2022 POWER OF A TTORNEY * [...] Power of Attor mel? No Care Teams Carbon Paste Mixer Operator Relationship Specialty Start Date End Date Guera Jay MD [address] [place] [address] [place] [address] PCP - General Family Medicine 06/19/23 documented as of this encounter
--- OUTSIDE RECORDS SUMMARY | 2024-03-09 18:11 | External Medical Summary | Continuity Of Care Document ---
Author Name Unknown Address [address] [place] [address] Organization [facility] ( ) Care Team Providers Care Seed Core Operator Name Role Phone Dinora Franklin Primary Care Provider [phone] VITAL SIGNS Date Time Diastolic blood pressure Systolic blood pressure Body height Body weight Temperature SpO2 Blood Sugar Pulse Respirations 75695 909 85756 5 75.00 mm[Hg] - Sitting 166.00 mm[Hg] - Sitting 70 NI 98.60 Oral 90.00 % 88.00/ min 24.00/min Immunizations Vaccine Date Status COVID-19 09/15/2020 Completed COVID-19 10/06/2020 Completed Influenza 04/17/2022 Completed (PCV13)Pneumococcal 08/16/2014 Completed (PPSV23)Pneumococcal 05/26/1996 Completed (PPSV23)Pneumococcal 04/13/2004 Completed (PPSV23)Pneumococcal 06/30/2012 Completed Shingles 08/19/2021 Completed Shingles 12/19/2021 Completed Tetanus 08/13/2009 Completed TDaP 08/28/2007 Completed
--- OUTSIDE RECORDS SUMMARY | 2024-03-09 18:12 | External Medical Summary | Summary of Care ---
Author Name Unknown Organization [facility] Address [address] [place] [address] Phone [phone] Care Team Providers Care Funeral Prearrangement Counselor Name Role Phone Guera Jay MD Primary Care Prov ider Reason for Visit * Reason Onset Date Comments Medication Refill 03/02/2024 Encounter Details Date Type Department Care Team (Late st Contact Info) Description 03/02/2024 Refill [facility] [address] [place] [address] Marivel Casanova PA-C [address] [place] [address] Allergies Active Allergy Reactions Criticality Noted Date Comments Adhesive Tape Other (Please comment) Low 03/09/2009 Affected area blisters. Latex 11/23/2014 Patient denies this allergy documented as of this encounter (statuses as of 03/02/2024) Medications Medication Sig Dispensed Refills Start Date End Date Status Acetaminophen 500 MG Oral Tablet Take 2 Tablets by mouth 3 times a day as needed for Pain, Moderate or Pain, Severe. Active Flutter DeviceIndications:B ronchiectasis without complication (HCC) Use for 10 min twice daily. pretreat with albuteorl. 1 Each 04/25/2022 Active Saline Nasal [place] 0.65 % Nasal Solution ([place]) Administer 1 [place] into nostril in the morning and 1 [place] at noon and 1 [place] in the evening and 1 [place] before bedtime. 30 mL 11/15/2022 Active Senna [...] 75 MG Oral Tablet (pLAVix)Indications :Atherosclerosis of [place] coronary artery of [place] heart with angina pectoris (HCC) Take 1 [...] or Pain, Moderate. 40 Tablet 03/02/2024 Active documented as of this encounter (statuses as of 03/02/2024) Active Problems Problem Noted Date Diagnosed Date [...] length -albuterol rx sent to [facility] -Use Advair BID -has rescue kit -CXR, exercise pulse ox -f/u t/c and home visit next week -needs pulm f/u Mediastinal adenopathy 04/25/2022 Chronic back pain greater than 3 months duration 04/17/2022 Hx of actinic keratosis 10/24/2020 Cervical spinal stenosis 01/27/2020 Atherosclerosis of [place] co ronary artery of [place] heart with stable angina pectoris 10/02/2019 Overview: [...] and 2006. Pain managed through [facility] pain clinic. 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 Pt to use OSH [facility] in [place]. Scheduling to fax orders. Chronic obstructive pulmonary disease 07/18/2022 08/08/2022 Overview: Per COPD GOLD Classification Last Assessment & Plan: COPD "RED FLAG" COPD symptoms: o Increased shortness of breath at rest ("I struggle to breathe even when watching TV", "I have to wear or turn up my oxygen just when I'm sitting on the couch") Medication Regimen o Class D - Inhaled Atxozoxnrsnffl-KAJW-QEBF Combination Inhaler (Trellegy) Exacerbation Mgt: o Rescue [...] 01/22/2019 07/29/2020 Coronary artery disease invo lving [place] coronary artery of [place] heart without angina pectoris 09/19/2017 10/31/2021 Overview: [...] AGREEMENT 09/2010 Overview: Dr Parra [facility] Beta-hakan intolerance documented as of this encounter (statuses as of 03/02/2024) Immunizations Name Administration Dates Next Due COVID-19 [...] Telephone Encounter - Marivel Casanova PA-C - 03/02/2024 3:08 PM EDT RX TRAMADOL 50MG Q SIX HOURS PRN MOD TO SEVERE PAIN #40 R0 SENT ELECTRONICALLY TO [facility] documented in this encounter Plan of Treatment Upcoming Encounters Date Type Department Care Team (Late st Contact Info) Description 04/06/2024 3:00 PM EDT Nurse Only Ancillary [address] [place] [address] [place], Nurse [address] [place] [address] 04/21/2024 11:15 AM EDT Office Visit Cardiology, [facility] 132 [facility] [place] [address] Maude [place], [address] [place] [address] 06/22/2024 1:40 PM EST Office Visit Dermatology [address] [place] [address] Nia Hong PA-C [address] [place] [address] [place] [address] 08/13/2024 11:30 AM EST Office Visit Cardiology [address] [place] [address] Reji Mendez PA-C [address] [place] [address] 12/21/2024 9:00 AM EDT Office Visit Family Medicine [address] [place] [phone] Guera Jay MD [address] [place] [address] [place] [address] Health Maintenance Due Date Last Done Comments [...] this encounter Medical Devices Implanted Type Area Airfield Defence Guard Device Identifier Shelf Expiration Date Model / Serial / Lot Femoral Nail Retrograde Implanted:Qty: 1 on 10/04/2022 by Donell Landry Jr., [place] [facility] [place] Knee ANGEL 02/18/2031 2339-1128S / / [id number] Screw Nlk A3 Ti 4.5x36mm - [id number] Implanted:Qty: 1 on 10/04/2022 by Donell Landry Jr., MD at [place] [facility] [place] ANGEL : TRAUMA [id number] / / 5.0 Compression Plate Implanted:Qty: 1 on 10/04/2022 by Donell Landry Jr., MD at [place] [facility] [place] ANGEL [id number] / / Screw T2 Alpha Adv Lck 5x85 - [id number] Implanted:Qty: 1 on 10/04/2022 by Donell Landry Jr., MD at [place] [facility] [place]: Knee ANGEL : TRAUMA 07/24/2031 2361-5085S / / [id number] Screw T2 Alpha Adv Lck 5x65 - [id number] Implanted:Qty: 1 on 10/04/2022 by Donell Landry Jr., MD at [place] [facility] [place] Left: Knee ANGEL : TRAUMA 07/24/2032 2361-5065S / / [id number] Screw T2 Alpha Adv Lck 5x85 - [id number] Implanted:Qty: 1 on 10/04/2022 by Donell Landry Jr., MD at [place] [facility] [place]: Knee ANGEL : TRAUMA 02/22/2032 2361-5085S / / [id number] Screw T2 Alpha Lock 5x35mm - [id number] Implanted:Qty: 1 on 10/04/2022 by Donell Landry Jr., MD at [place] [facility] [place] Left: Knee ANGEL : TRAUMA 07/24/2032 2360-5035S / / [id number] Screw Gina Lk A3 Ti 5x12mm - [id number] Implanted:Qty: 1 on 10/04/2022 by Donell Landry Jr., MD at [place] [facility] [place] ANGEL : TRAUMA [id number] / / Screw Gina Lk A3 Ti 5x16mm - [id number] Implanted:Qty: 1 on 10/04/2022 by Donell Landry Jr., MD at [place] [facility] [place] ANGEL : TRAUMA [id number] / / Washer For 2.4mm/2.7mm/3.5m m - [id number] Implanted:Qty: 2 on 10/04/2022 by Donell Landry Jr., MD at [place] [facility] [place] ANGEL : TRAUMA [id number] / / Screw Nlk V2 T10 Ft 3.5x28mm - [id number] Implanted:Qty: 2 on 10/04/2022 by Donell Landry Jr., MD at [place] [facility] [place] ANGEL : TRAUMA [id number] / / documented as of this encounter Advance Directives Documents on File Type Date Recorded Patient Stock Handler Expl anation Advance Directives and Living Will 10/03/2022 ADVANCE DIRECTIVE / LIVING WILL Power of Beam Dyer Operator 10/03/2022 POWER OF A TTORNEY * [...] Power of Attor mel? No Care Teams Funeral Prearrangement Counselor Relationship Specialty Start Date End Date Guera Jay MD [address] [place] [address] [place] [phone] PCP - General Family Medicine 06/19/23 documented as of this encounter
--- OUTSIDE RECORDS SUMMARY | 2024-03-09 18:12 | External Medical Summary | Continuity of Care Document ---
Author Name Unknown Organization [facility] [address] [facility] [address] [address] Address [address] [place], [place] [phone] Care Team Providers Care Machine Quilt Stuffer Name Role Phone Guera Escudero Primary Care Physician [phone] Encounter [facility] [id number] Date(s): 02/25/24 - 02/25/24 [facility] [address] [facility] [address] [place], [place] [id number] [place] Discharge Disposition: Home or Self Care Attending Physician: MD Isma, [facility] Referring Physician: MD Yumi, Emmanuel Barnhart Social History Social History Type Response Sex Male Sex Representation Male (finding) Patient Care team information Care Team Personnel Name: MD Escudero Kristen L Position: Referring DIRECT Member Role: Primary Care Provider Address: [address] [place] [id number] Care Team Related Persons Name: BRUCE MCCARTY
--- OUTSIDE RECORDS SUMMARY | 2024-03-09 18:12 | External Medical Summary | Summary of Care ---
Author Name Unknown Organization [facility] Address [address] [place] [address] Phone [phone] Care Team Providers Care Carton Machine Operator Name Role Phone Guera Jay MD Primary Care Prov ider Encounter Details Date Type Department Care Team (Late st Contact Info) Description 02/26/2024 9:30 AM EDT Scheduled Telephone Care Coordination and Integration [address] [place], [place] [phone] Ryne Connor [facility] [address] [place], [place] [phone] Allergies Active Allergy Reactions Criticality Noted Date Comments Adhesive Tape Other (Please comment) Low 03/09/2009 Affected area blisters. Latex 11/23/2014 Patient denies this allergy documented as of this encounter (statuses as of 02/26/2024) Medications Medication Sig Dispensed Refills Start Date End Date Status Acetaminophen 500 MG Oral Tablet Take 2 Tablets by mouth 3 times a day as needed for Pain, Moderate or Pain, Severe. Active Flutter DeviceIndications:B ronchiectasis without complication (HCC) Use for 10 min twice daily. pretreat with albuteorl. 1 Each 04/25/2022 Active Saline Nasal [place] 0.65 % Nasal Solution ([place]) Administer 1 [place] into nostril in the morning and 1 [place] at noon and 1 [place] in the evening and 1 [place] before bedtime. 30 mL 11/15/2022 Active Senna [...] 75 MG Oral Tablet (pLAVix)Indications :Atherosclerosis of [place] coronary artery of [place] heart with angina pectoris (HCC) Take 1 [...] as of this encounter (statuses as of 02/26/2024) Active Problems Problem Noted Date Diagnosed Date [...] meds at length -albuterol rx sent to [facility] -Use Advair BID -has rescue kit -CXR, exercise pulse ox -f/u t/c and home visit next week -needs pulm f/u Mediastinal adenopathy 04/25/2022 Chronic back pain greater than 3 months duration 04/17/2022 Hx of actinic keratosis 10/24/2020 Cervical spinal stenosis 01/27/2020 Atherosclerosis of [place] co ronary artery of [place] heart with stable angina pectoris 10/02/2019 Overview: [...] 1984 and 2006. Pain managed through [facility] pain clinic. 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 Scheduling to fax orders. Chronic obstructive pulmonary disease 07/18/2022 08/08/2022 Overview: Per COPD GOLD Classification Last Assessment & Plan: COPD "RED FLAG" COPD symptoms: o Increased shortness of breath at rest ("I struggle to breathe even when watching TV", "I have to wear or turn up my oxygen just when I'm sitting on the couch") Medication Regimen o Class D - Inhaled Wycsxgydtpduza-CFJB-PBXI Combination Inhaler (Trellegy) Exacerbation Mgt: o Rescue [...] 01/22/2019 07/29/2020 Coronary artery disease invo lving [place] coronary artery of [place] heart without angina pectoris 09/19/2017 10/31/2021 Overview: [...] USE AGREEMENT 09/2010 Overview: Dr Parra [facility] Beta-hakan intolerance documented as of this encounter (statuses as of 02/26/2024) Immunizations Name Administration Dates Next Due COVID-19 mRNA, LNP-s, No Pre serve, 2-Dose Series (Visual Pro 360) 10/13/2020,09/22/2020 Pneumococcal Conjugate Vacc, 13 Valent (Prevnar) [...] No 01/29/2024 Does the household have a lovelace women's hospitallar source of income? (Household - for [...] Progress Notes * Ryne Connor [facility] - 02/26/2024 9:48 AM EDT Telemedicine visit: No [facility] ([place]) documentation: CHW follow up phone call for RNCM. CHW noted that aoutreach was attempted yesterday and the female who answered the phone indicated that the patient is currently admitted at [facility]. CHW reached the patient's voicemail and left a brief message with my callback information. Ryan Connor [facility] Worker Lead [place] [phone] Electronically signed by Ryne Connor [facility] at 02/26/2024 9:49 AM EDT documented in this encounter Plan of Treatment Upcoming Encounters Date Type Department Care Team (Late st Contact Info) Description 04/06/2024 3:00 PM EDT Nurse Only Ancillary [address] [place] [address] [place], Nurse Annual [address] [place] [address] 04/21/2024 11:15 AM EDT Office Visit Cardiology, [facility] [address] [facility] [place] [address] [place]ude [place], [address] [place] [address] 06/22/2024 1:40 PM EST Office Visit Dermatology [address] [place] [address] Nia Hong PA-C [address] [place] [address] [place] [address] 08/13/2024 11:30 AM EST Office Visit Cardiology [address] [place] [address] eRji Mendez PA-C [address] [place] [address] 12/21/2024 9:00 AM EDT Office Visit Family Medicine [address] [place] [phone] Guera Jay MD [address] [place] [address] [place] [address] Health Maintenance Due Date Last Done Comments [...] this encounter Medical Devices Implanted Type Area Quality Control Technician Device Identifier Shelf Expiration Date Model / Serial / Lot Femoral Nail Retrograde Implanted:Qty: 1 on 10/04/2022 by Donell Landry Jr., MD at [place] [facility] [place] Left: Knee ANGEL 02/18/2031 2339-1128S / / [id number] Screw Nlk A3 Ti 4.5x36mm - [id number] Implanted:Qty: 1 on 10/04/2022 by Donell Landry Jr., MD at [place] [facility] [place] ANGEL : TRAUMA [id number] / / 5.0 Compression Plate Implanted:Qty: 1 on 10/04/2022 by Donell Landry Jr., MD at [place] [facility] [place] ANGEL [id number] / / Screw T2 Alpha Adv Lck 5x85 - [id number] Implanted:Qty: 1 on 10/04/2022 by Donell Landry Jr., MD at [place] [facility] [place] Left: Knee ANGEL : TRAUMA 07/24/2031 2361-5085S / / [id number] Screw T2 Alpha Adv Lck 5x65 - [id number] Implanted:Qty: 1 on 10/04/2022 by Donell Landry Jr., MD at [place] [facility] [place] Left: Knee ANGEL : TRAUMA 07/24/2032 2361-5065S / / [id number] Screw T2 Alpha Adv Lck 5x85 - [id number] Implanted:Qty: 1 on 10/04/2022 by Donell Landry Jr., MD at [place] [facility] [place] Left: Knee ANGEL : TRAUMA 02/22/2032 2361-5085S / / [id number] Screw T2 Alpha Lock 5x35mm - [id number] Implanted:Qty: 1 on 10/04/2022 by Donell Landry Jr., MD at [place] [facility] [place] Left: Knee ANGEL : TRAUMA 07/24/2032 2360-5035S / / [id number] Screw Gina Lk A3 Ti 5x12mm - [id number] Implanted:Qty: 1 on 10/04/2022 by Donell Landry Jr., MD at [place] [facility] [place] ANGEL : TRAUMA [id number] / / Screw Gina Lk A3 Ti 5x16mm - [id number] Implanted:Qty: 1 on 10/04/2022 by Donell Landry Jr., MD at [place] [facility] [place] ANGEL : TRAUMA [id number] / / Washer For 2.4mm/2.7mm/3.5m m - [id number] Implanted:Qty: 2 on 10/04/2022 by Donell Landry Jr., MD at [place] [facility] [place] ANGEL : TRAUMA [id number] / / Screw Nlk V2 T10 Ft 3.5x28mm - [id number] Implanted:Qty: 2 on 10/04/2022 by Donell Landry Jr., MD at [place] [facility] [place] ANGEL : TRAUMA [id number] / / documented as of this encounter Advance Directives Documents on File Type Date Recorded Patient Piano Case Maker Expl anation Advance Directives and Living Will 10/03/2022 ADVANCE DIRECTIVE / LIVING WILL Power of Powerhouse Laborer 10/03/2022 POWER OF A TTORNEY * Full [...] Power of Attor mel? No Care Teams Carton Machine Operator Relationship Specialty Start Date End Date Guera Jay MD [address] [place] [address] [place] [phone] PCP - General Family Medicine 06/19/23 documented as of this encounter
--- OUTSIDE RECORDS SUMMARY | 2024-03-09 18:12 | External Medical Summary | Summary of Care ---
Author Name Unknown Organization [facility] Address [address] [place] [address] Phone [phone] Care Team Providers Care Laborer Cutting Tool Name Role Phone Guera Jay MD Primary Care Prov ider Reason for Visit * Reason Onset Date Comments Health Maintenance 01/22/2024 Encounter Details Date Type Department Care Team (Late st Contact Info) Description 01/22/2024 Telephone Family Medicine [address] [phone] Guera Jay MD [address] [place] [address] [place] [address] Health Maintenance Allergies Active Allergy Reactions [...] albuteorl. 1 Each 2 Active Saline Nasal [place] 0.65 % Nasal Solution ([place]) Administer 1 [place] into nostril in the morning and 1 [place] at noon and 1 [place] in the evening and 1 [place] before bedtime. 30 mL 3 Active Senna [...] MG Oral Tablet (pLAVix)Indicatio ns:Atherosclerosi s of sokaogon coronary artery of sokaogon heart with angina pectoris (HCC) Take 1 [...] 10/24/2020 Cervical spinal stenosis 01/27/2020 Atherosclerosis of [place] co ronary artery of s[place] heart with stable angina pectoris 10/02/2019 Overview: [...] replacement 1984 and 2006. Pain managed through [facility] pain clinic. 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 Pt to use OSH [facility] in [place]. Scheduling to fax orders. Chronic obstructive pulmonary disease 07/18/2022 08/08/2022 Overview: Per COPD GOLD Classification Last Assessment & Plan: COPD "RED FLAG" COPD symptoms: o Increased shortness of breath at rest ("I struggle to breathe even when watching TV", "I have to wear or turn up my oxygen just when I'm sitting on the couch") Medication Regimen o Class D - Inhaled Qqrtbbdfbcqxzc-YKPV-OHHT Combination Inhaler (Trellegy) Exacerbation Mgt: o Rescue [...] 01/22/2019 07/29/2020 Coronary artery disease invo lving sokaogon coronary artery of s[place] heart without angina pectoris 09/19/2017 10/31/2021 Overview: [...] MEDICATION USE AGREEMENT 09/2010 Overview: Dr Parra [facility] Beta-hakan intolerance documented as of [...] Telephone Encounter - Tejal Storm LPN - 03/02/2024 7:59 AM EDT In hospital Letter sent * Telephone Encounter - Tejal Storm LPN [...] 04/06/2024 3:00 PM EDT Nurse Only Ancillary [address] [place] [address] Gamal, Nurse Annual Wellness [address] [place] [address] [place] [address] 04/21/2024 11:15 AM EDT Office Visit Cardiology, [facility] [address] [place] [address] Maude Pierce, [address] [place] [address] 06/22/2024 1:40 PM EST Office Visit Dermatology [address] [place] [address] Nia Hong PA-C [address] [place] [address] [place] [address] 08/13/2024 11:30 AM EST Office Visit Cardiology [address] [place] [address] Reji Mendez PA-C [address] [place] [address] 12/21/2024 9:00 AM EDT Office Visit Family Medicine [address] [place] [phone] Guera Jay MD [address] [place] [address] [place] [address] Health Maintenance Due Date Last Done Comments [...] this encounter Medical Devices Implanted Type Area Email Engineer Device Identifier Shelf Expiration Date Model / Serial / Lot Femoral Nail Retrograde Implanted:Qty: 1 on 10/04/2022 by Donell Landry Jr., MD at [facility] [place] Left: Knee ANGEL 02/18/2031 [id number] / / [id number] Screw Nlk A3 Ti 4.5x36mm - [id number] Implanted:Qty: 1 on 10/04/2022 by Donell Landry Jr., MD at [facility] [place] ANGEL : TRAUMA [id number] / / 5.0 Compression Plate Implanted:Qty: 1 on 10/04/2022 by Donell Landry Jr., MD at [facility] [place] ANGEL [id number] / / Screw T2 Alpha Adv Lck 5x85 - [id number] Implanted:Qty: 1 on 10/04/2022 by Donell Landry Jr., MD at [facility] [place] Left: Knee ANGEL : TRAUMA 07/24/2031 2361-5085S / / [id number] Screw T2 Alpha Adv Lck 5x65 - [id number] Implanted:Qty: 1 on 10/04/2022 by Donell Landry Jr., MD at [facility] [place] Left: Knee ANGEL : TRAUMA 07/24/2032 2361-5065S / / [id number] Screw T2 Alpha Adv Lck 5x85 - [id number] Implanted:Qty: 1 on 10/04/2022 by Donell Landry Jr., MD at [facility] [place] Left: Knee ANGEL : TRAUMA 02/22/2032 2361-5085S / / [id number] Screw T2 Alpha Lock 5x35mm - [id number] Implanted:Qty: 1 on 10/04/2022 by Donell Landry Jr., MD at [facility] [place] Left: Knee ANGEL : TRAUMA 07/24/2032 2360-5035S / / [id number] Screw Gina Lk A3 Ti 5x12mm - [id number] Implanted:Qty: 1 on 10/04/2022 by Donell Landry Jr., MD at [facility] [place] ANGEL : TRAUMA [id number] / / Screw Gina Lk A3 Ti 5x16mm - [id number] Implanted:Qty: 1 on 10/04/2022 by Donell Landry Jr., MD at [facility] [place] ANGEL : TRAUMA [id number] / / Washer For 2.4mm/2.7mm/3.5m m - [id number] Implanted:Qty: 2 on 10/04/2022 by Donell Landry Jr., MD at [facility] [place] ANGEL : TRAUMA [id number] / / Screw Nlk V2 T10 Ft 3.5x28mm - [id number] Implanted:Qty: 2 on 10/04/2022 by Donell Landry Jr., MD at [facility] [place] ANGEL : TRAUMA [id number] / / documented as of this encounter Advance Directives Documents on File Type Date Recorded Patient Medical Editor Expl anation Advance Directives and Living Will 10/03/2022 ADVANCE DIRECTIVE / LIVING WILL Power of Switchman Supervisor 10/03/2022 POWER OF A TTORNEY * [...] Power of Attor mel? No Care Teams Laborer Cutting Tool Relationship Specialty Start Date End Date Guera Jay MD [address] [place] [address] [place] [address] PCP - General Family Medicine 06/19/23 documented as of this encounter
--- OUTSIDE RECORDS SUMMARY | 2024-03-09 18:12 | External Medical Summary | Summary of Care ---
Author Name Unknown Organization [facility] Address [address] [place] [address] Phone [phone] Care Team Providers Care Pastry Sous Chef Name Role Phone Guera Jay MD Primary Care Prov ider Encounter Details Date Type Department Care Team (Late st Contact Info) Description 02/27/2024 Population Health External Data Unspecified Department Allergies Active Allergy Reactions Criticality Noted Date Comments Adhesive Tape Other (Please comment) Low 03/09/2009 Affected area blisters. Latex 11/23/2014 Patient denies this allergy documented as of this encounter (statuses as of 02/27/2024) Medications Medication Sig Dispensed Refills Start Date End Date Status Acetaminophen 500 MG Oral Tablet Take 2 Tablets by mouth 3 times a day as needed for Pain, Moderate or Pain, Severe. Active Flutter DeviceIndications:B ronchiectasis without complication (HCC) Use for 10 min twice daily. pretreat with albuteorl. 1 Each 04/25/2022 Active Saline Nasal [place] 0.65 % Nasal Solution ([place]) Administer 1 [place] into nostril in the morning and 1 [place] at noon and 1 [place] in the evening and 1 [place] before bedtime. 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 Pain managed through [facility] pain clinic. 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 Pt to use OSH [facility] in [place]. Scheduling to fax orders. Chronic obstructive pulmonary disease 07/18/2022 08/08/2022 Overview: Per COPD GOLD Classification Last Assessment & Plan: COPD "RED FLAG" COPD symptoms: o Increased shortness of breath at rest ("I struggle to breathe even when watching TV", "I have to wear or turn up my oxygen just when I'm sitting on the couch") Medication Regimen o Class D - Inhaled Hxbfcimjxzrrhm-EHYL-NZXI Combination Inhaler (Trellegy) Exacerbation Mgt: o Rescue [...] 01/22/2019 07/29/2020 Coronary artery disease invo lving [place] coronary artery of tet[place] heart without angina pectoris 09/19/2017 10/31/2021 Overview: W/ angina on [place] (actinic keratosis) 01/23/201710/24 Bradycardia 06/14/2016 09/19/2017 Essential hypertension with goal blood pressure less than 140/90 10/31/2015 07/04/2022 Last Assessment & Plan: bp stable-not on meds Monitor Chronic cholecystitis 03/10/20092010 ACTIVE CASE MANAGEMENT 03/07/200904/10 Overview: Chela Morris, RN [phone] Other specified hypothyroidism 03/01/2008 08/16/2016 Overview: TSH [...] USE AGREEMENT 09/2010 Overview: Dr Parra [facility] Beta-hakan intolerance documented as of this encounter (statuses as of 02/27/2024) Immunizations Name Administration Dates Next Due COVID-19 mRNA, LNP-s, No Pre serve, 2-Dose Series (PerSay) 10/13/2020,09/22/2020 Pneumococcal Conjugate Vacc, 13 Valent (Prevnar) [...] 04/06/2024 3:00 PM EDT Nurse Only Ancillary [address] [place] [address] Gamal, Nurse Annual [address] [place] [address] 04/21/2024 11:15 AM EDT Office Visit Cardiology, [facility] [address] [place] [address] Maude Pierce, [address] [place] [address] 06/22/2024 1:40 PM EST Office Visit Dermatology [address] [place] [address] Nia Hong PA-C [address] [place] [address] [place] [address] 08/13/2024 11:30 AM EST Office Visit Cardiology [address] [place] [address] Reji Mendez PAMario [address] [place] [address] 12/21/2024 9:00 AM EDT Office Visit Family Medicine [address] [place] [phone] Guera Jay MD [address] [place] [address] [place] [address] Health Maintenance Due Date Last Done Comments [...] this encounter Medical Devices Implanted Type Area Permaculture Contractor Device Identifier Shelf Expiration Date Model / Serial / Lot Femoral Nail Retrograde Implanted:Qty: 1 on 10/04/2022 by Donell Landry Jr., [place] [facility] [place]: Knee ANGEL 02/18/2031 2339-1128S / / [id number] Screw Nlk A3 Ti 4.5x36mm - [id number] Implanted:Qty: 1 on 10/04/2022 by Donell Landry Jr., [place] [facility]EL : TRAUMA [id number] / / 5.0 Compression Plate Implanted:Qty: 1 on 10/04/2022 by Donell Landry Jr., [place] [facility]EL [id number] / / Screw T2 Alpha Adv Lck 5x85 - [id number] Implanted:Qty: 1 on 10/04/2022 by Donell Landry Jr., [place] [facility] [place]: Knee ANGEL : TRAUMA 07/24/2031 2361-5085S / / [id number] Screw T2 Alpha Adv Lck 5x65 - [id number] Implanted:Qty: 1 on 10/04/2022 by Donell Landry Jr., [place] [facility] [place]: Knee ANGEL : TRAUMA 07/24/2032 2361-5065S / / [id number] Screw T2 Alpha Adv Lck 5x85 - [id number] Implanted:Qty: 1 on 10/04/2022 by Donell Landry Jr., [place] [facility] [place]: Knee ANGEL : TRAUMA 02/22/2032 2361-5085S / / [id number] Screw T2 Alpha Lock 5x35mm - [id number] Implanted:Qty: 1 on 10/04/2022 by Donell Landry Jr., [place] [facility] [place] [place]: Knee ANGEL : TRAUMA 07/24/2032 2360-5035S / / [id number] Screw Gina Lk A3 Ti 5x12mm - [id number] Implanted:Qty: 1 on 10/04/2022 by Donell Lanrdy Jr., [place] [facility]EL : TRAUMA [id number] / / Screw Gina Lk A3 Ti 5x16mm - [id number] Implanted:Qty: 1 on 10/04/2022 by Donell Landry Jr., [place] [facility] [place]EL : TRAUMA [id number] / / Washer For 2.4mm/2.7mm/3.5m m - [id number] Implanted:Qty: 2 on 10/04/2022 by Donell Landry Jr., [place] [facility] [place]EL : TRAUMA [id number] / / Screw Nlk V2 T10 Ft 3.5x28mm - [id number] Implanted:Qty: 2 on 10/04/2022 by Donell Landry Jr., [place] [facility]EL : TRAUMA [id number] / / documented as of this encounter Advance Directives Documents on File Type Date Recorded Patient Bid Manager Expl anation Advance Directives and Living Will 10/03/2022 ADVANCE DIRECTIVE / LIVING WILL Power of Immigration Law Specialist 10/03/2022 POWER OF A TTORNEY * Full [...] Power of Attor mel? No Care Teams Pastry Sous Chef Relationship Specialty Start Date End Date Guera Jay MD [address] [place] [address] [place] [address] PCP - General Family Medicine 06/19/23 documented as of this encounter
[2024-03-09] MEDS ORDERED: NITROGLYCERIN SL 0.4 MG/TAB TAB SL PRN (18:28)
[2024-03-09] MEDS: SODIUM CHLORIDE 0.9% 1,000 ML IV SCH (18:47)
[2024-03-09] MEDS: oxyCODONE HCL IR 5 MG TAB (IMMEDIATE RELEASE) PO PRN (18:47)
--- NOTE | 2024-03-09 19:15 | Electrocardiogram Report ---
Test Reason : Blood Pressure : */* mmHG Vent. Rate : 128 BPM Atrial Rate : * BPM P-R Int : * ms QRS Dur : 104 ms QT Int : 334 ms P-R-T Axes : * -24 136 degrees QTcB Int : 487 ms suspect atrial flutter with 2:1 AV conduction Left ventricular hypertrophy with repolarization abnormality ( R in aVL , Jeovanny product ) Abnormal ECG When compared with ECG of 24-Feb-2024 14:40, Current rhythm has replaced Electronic atrial pacemaker Vent. rate has increased by 67 bpm Confirmed by Jsoeph Grajeda ([id number]) on 03/09/2024 7:15:15 PM Referred By: REFERRED SELF Confirmed By: Joseph Grajeda
[2024-03-09] MEDS: PIPERACILLIN/TAZOBACTAM 4.5 GM/100 ML BAG IV SCH (19:19)
[2024-03-09] MEDS: IPRATROPIUM BROMIDE NEB SOLN 0.02% 0.5MG/2.5ML VIAL NEB SCH (19:31)
[2024-03-09] MEDS: LEVALBUTEROL 1.25 MG/3 ML NEB NEB SCH (19:32)
[2024-03-09] MEDS: DULoxetine HCL 60 MG CAP PO SCH (20:10)
[2024-03-09] MEDS: AMITRIPTYLINE HCL 50 MG TAB PO SCH (20:11)
[2024-03-09] MEDS: DULoxetine HCL 30 MG CAP PO SCH (20:11)
[2024-03-09] MEDS: TAMSULOSIN HCL 0.4 MG CAP PO SCH (20:12)
[2024-03-09] MEDS: guaiFENesin 600 MG TABCR PO SCH (20:12)
[2024-03-09] MEDS: SODIUM CHLORIDE 0.9% 500 ML IV SCH (20:30)
[2024-03-09] MEDS: traMADol HCL 50 MG TABLET PO PRN (22:15)
[2024-03-09] MEDS: HEPARIN SOD 5,000 UNIT/0.5 ML VIAL SQ SCH (22:28)
[2024-03-09] MEDS ORDERED: LEVALBUTEROL 1.25 MG/3 ML NEB NEB SCH (23:00)
[2024-03-10] MEDS: VANCOMYCIN HCL 1,250 MG in SODIUM CHLORIDE 0.9% 250 ML IV SCH (02:59)
[2024-03-10] MEDS: guaiFENesin SUGAR FREE 200 MG/10 ML UDC PO PRN (03:50)
[2024-03-10] MEDS: LEVOTHYROXINE SODIUM 75 MCG TABLET PO SCH (05:07)
[2024-03-10 05:38] LABS: Appearance Urine Clear (Clear); Bacteria Urine Automated None Seen (None Seen); Bilirubin Urine Negative (Negative); Blood Urine Negative (Negative); Color Urine Yellow; Glucose Urine UA Negative (Negative); Ketones Urine Negative (Negative); Leukocyte Esterase Urine 1+ (Negative); Nitrite Urine Negative (Negative); Protein Urine Trace (Negative); RBC Urine Automated 0-2 /hpf (0-2); Specific Gravity Urine 1.026 (1.000-1.030); Urobilinogen Urine Negative (Negative); WBC Urine Automated 21-50 /hpf (0-5)
[2024-03-10 07:15] LABS: Basophils # (auto) 0.05 K/uL (0.00-0.20); Basophils % (auto) 0.5 %; Eosinophils # (auto) 0.29 K/uL (0.00-0.50); Eosinophils % (auto) 2.7 %; Hematocrit (blood only) 32.6 % (42.0-52.0); Hemoglobin 10.9 g/dl (14.0-18.0); Immature Granulocytes # (auto) 0.04 K/uL (0.01-0.20); Immature Granulocytes % (auto) 0.4 %; Lymphocytes # (auto) 1.55 K/uL (1.20-3.40); Lymphocytes % (auto) 14.6 %; Mean Corpuscular Hemoglobin 32.3 pg (25.0-34.0); Mean Corpuscular Hgb Conc 33.4 g/dL (32.0-36.0); Mean Corpuscular Volume 96.7 fL (80.0-100.0); Mean Platelet Volume 10.6 fL (9.4-12.4); Monocytes # (auto) 1.28 K/uL (0.11-0.59); Monocytes % (auto) 12.1 %; Neutrophils % (auto) 69.7 %; Platelet Count 271 K/uL (130-400); RDW Coefficient of Variation 14.2 % (11.5-14.5); RDW Standard Deviation 50.4 fL (36.4-46.3); Red Blood Count 3.37 M/uL (4.70-6.10); White Blood Count 10.61 K/ul (4.8-10.8)
[2024-03-10 07:49] LABS: BUN Creatinine Ratio 20.2 (10-20); Calcium 8.4 mg/dl (8.6-10.3); Creatinine Clr Calc Pharmacy 54.3 ml/min; Est GFR (African American) 67.4 ml/min; Est GFR (Non-African American) 58.2 ml/min; Potassium 4.2 mmol/L (3.5-5.1)
[2024-03-10 08:13] LABS: Troponin I High Sensitivity 195.4 pg/ml (0-20)
--- NOTE | 2024-03-10 08:29 | Electrocardiogram Report ---
Test Reason : Blood Pressure : */* mmHG Vent. Rate : 116 BPM Atrial Rate : 122 BPM P-R Int : * ms QRS Dur : 106 ms QT Int : 364 ms P-R-T Axes : * -21 138 degrees QTcB Int : 505 ms Supraventricular tachycardia (possibly AVNRT) Left ventricular hypertrophy with repolarization abnormality ST depression in Anterolateral leads Abnormal ECG When compared with ECG of 09-Mar-2024 12:19, HR has decreased by 12 bpm Otherwise no significant change Confirmed by Fco Ashby ([id number]) on 03/10/2024 8:29:29 AM Referred By: REFERRED SELF Confirmed By: Fco Ashby
--- NOTE | 2024-03-10 08:49 | Pharmacy Report ---
Pharmacy PK ABX Note - Date of Service March 10, 2024 - Assessment and Plan Assessment 79 year old M receiving Vancomycin/Zosyn for treatment of hospital-acquired pneumonia. MRSA coverage started due to recent hospitalization and in SNF for rehab prior to admission. Pertinent microbiologic data includes: Blood, sputum, and urine cultures pending. MRSA swab negative Day # 1 of antimicrobial therapy. Plan Vancomycin * Loading dose: 2000 mg IV x 1 * Maintenance dose: 1250 mg IV every 24 hours * Regimen is predicted to achieve target AUC/GABBI of 400-600 mg/L.hr * Trough level ordered for: 03/12/24 at 0330. Pharmacy will continue to follow and will adjust dose/frequency as necessary. Thank you. Pharmacy has transitioned to AUC monitoring for vancomycin. AUC/GABBI is the preferred PK/PD target and is associated with decreased risk of nephrotoxicity compared to traditional trough targets.
[2024-03-10] MEDS: METOPROLOL SUCC 50MG EXT REL TAB PO SCH (09:52)
[2024-03-10] MEDS: ATORVASTATIN 40 MG TAB PO SCH (09:52)
[2024-03-10] MEDS: PANTOprazole 40 MG TAB PO SCH (09:52)
[2024-03-10] MEDS: CLOPIDOGREL BISULFATE 75 MG TAB PO SCH (09:52)
[2024-03-10] MEDS: FINASTERIDE 5 MG TAB PO SCH (09:52)
[2024-03-10] MEDS: LIDOCAINE 5% 1 PATCH TD SCH (10:37)
[2024-03-10] MEDS: UMECLIDINIUM/VILANTEROL 62.5/25MCG 7 PUFFS/INHALER INH SCH (10:37)
[2024-03-10] MEDS ORDERED: IPRATROPIUM BROMIDE NEB SOLN 0.02% 0.5MG/2.5ML VIAL NEB PRN (11:50)
[2024-03-10] MEDS ORDERED: LEVALBUTEROL 1.25 MG/3 ML NEB NEB PRN (11:51)
--- NOTE | 2024-03-10 12:31 | Hospitalist Progress Note ---
Date of Service March 10, 2024 Assessment & Plan (1) Severe sepsis: (2) Metabolic encephalopathy: (3) Periprosthetic fracture around internal prosthetic right hip joint: (4) Elevated troponin: (5) Pneumonia: (6) COPD (chronic obstructive pulmonary disease): (7) CAD (coronary artery disease): (8) HTN, goal below 130/80: Plan Mr. Shaver is a 79 y/o male with recent right periprosthetic femoral fracture in rehab at [facility], COPD, asthma, bronchiectasis, chronic respiratory failure on baseline O2 of 2-3L, HTN, HLD, sinus node dysfunction s/p pacemaker, CAD s/p balloon angioplasty (2017), BPH, and other history as outlined before who was admitted 03/10 fpr severe sepsis. Fluid resuscitation was initiated in the ED with improvement in BP and lactate. Given multiple recent hospitalizations, patient started on regimen for concern for hospital acquired pneumonia. #Severe Sepsis #Acute on chronic hypoxic resp failure, concern for hospital acquired pneumonia CXR Patchy left basilar densities have slightly progressed. This could represent atelectasis or a pneumonia. - Patient with multiple admissions in last month, procal notable 0.09 - Oxygen as needed to maintain sats 88-90% - Continue Zosyn -MRSA negative, will d/c vancomycin - Continue fluid resuscitation initiated in the ED - Blood culture pending, check sputum culture -Improvement in leukocytosis -Flutter valve and hypertonic nebs bid #Acute metabolic encephalopathy iso sepsis patient with history of delirium worsened by benzos/opioids/pain/infection Attempt to reorient Manage as above delirium precautions #Periprosthetic fracture around internal prosthetic right hip joint: Stable on imaging 03/09 ortho saw patient last admission and recommended conservative management Eventual PT/OT evaluations once more stable #Elevated troponin: Likely related to demand from severe sepsis - will trend x 2. Denies chest pain at present up to 195, no downtrending no reports of CP today #Chronic normocytic anemia hgb baseline 10-13, likely 2/2 chronic disease 02/24 ferritin 193, TiBC 147 Iron 13 b12 low last admission, will repeat and consider IM replacement #COPD (chronic obstructive pulmonary disease): Antibiotics as above Scheduled ipratropium/levalbuterol, prn DuoNebs Continue maintenance inhaler No wheezing and on baseline O2 this am #CAD (coronary artery disease): Chronic, stable Continue outpatient regimen #HTN, goal below 130/80: Hypotensive due to severe sepsis so will hold amlodipine. Beta-kassie continued with holds in view of known CAD. DVT heparin sq Dispo: Keep on PCU dispo likely in 2-3 days contingent on encephalopathy, gabrielle back to rehab Admission and Anticipated Discharge Date Admission Date: March 09, 2024 Subjective Patient alert to self this am. No respiratory distress. Understood he was in a hospital but "doesn't understand why he is here" Mentioned his "son is gone" but unclear meaning and worked to redirect Patient denies chest pain or other acute concerns this am Still seemingly confused but otherwise calm in the mid morning Physical Exam 2 Constitutional: WD/WN, vitals as above Respiratory: few scattered rhonchi cleared with cough, diminished over all, no wheezing 3L NC this am Cardiovascular: RRR, no murmur, no edema Results & Data Results & Data Vital Signs (Past 12 Hours) Vital Signs Temp Pulse Pulse Resp BP Pulse Ox O2 Del Method 03/10/24 11:41 36.5 C 62 18 118/62 93 Nasal Cannula 03/10/24 07:59 36.5 C 62 18 136/65 94 Nasal Cannula 03/10/24 07:30 Nasal Cannula 03/10/24 07:30 61 03/10/24 02:58 36.6 C 66 18 133/63 92 Room Air 03/10/24 01:13 86 18 95 Nasal Cannula O2 Flow Rate 03/10/24 11:41 2 03/10/24 07:59 2 03/10/24 07:30 2 03/10/24 07:30 03/10/24 02:58 03/10/24 01:13 2 Laboratory Results Short CBC 03/10/24 Range/Units 06:19 WBC 10.61 (4.8-10.8) K/ul Hgb 10.9 L (14.0-18.0) g/dl Hct 32.6 L (42.0-52.0) % Plt Count 271 (130-400) K/uL BMP 03/10/24 06:19 Sodium 140 Potassium 4.2 Chloride 108 H Carbon Dioxide 27 BUN 24 H Creatinine 1.19 Glucose 124 H Calcium 8.4 L Urine 03/10/24 Range/Units Unknown Urine Color Yellow Urine Appearance Clear (Clear) Urine pH 6.0 (4.5-7.5) Ur Specific [place] 1.026 (1.000-1.030) Urine Protein Trace H (Negative) Urine Glucose (UA) Negative (Negative) Medications Administered Home Medications Medication Instructions Recorded Confirmed Last Taken acetaminophen 500 mg tablet 500 mg PO QID PRN Pain 03/06/23 03/09/24 Unknown (Tylenol Extra Strength) amitriptyline 25 mg tablet 50 mg PO HS 03/06/23 03/09/24 03/08/24 atorvastatin 80 mg tablet 80 mg PO DAILY 03/06/23 03/09/24 01/21/24 clopidogrel 75 mg tablet 75 mg PO QAM 03/06/23 03/09/24 03/09/24 duloxetine 30 mg capsule,delayed 30 mg PO QPM 03/06/23 03/09/24 03/08/24 release duloxetine 60 mg capsule,delayed 60 mg PO QPM 03/06/23 03/09/24 03/08/24 release finasteride 5 mg tablet 5 mg PO DAILY 03/06/23 03/09/24 03/09/24 gabapentin 300 mg capsule 300 mg PO TID 03/06/23 03/09/24 03/09/24 levothyroxine 75 mcg tablet 75 mcg PO DAILYBB 03/06/23 03/09/24 03/09/24 nitroglycerin 0.4 mg sublingual 0.4 mg sublingual DIRECTED PRN 03/06/23 03/09/24 Unknown tablet Chest Pain pantoprazole 40 mg tablet,delayed 40 mg PO DAILY 03/06/23 03/09/24 03/09/24 release umeclidinium 62.5 mcg-vilanterol 1 inh inhalation DAILY 01/21/24 03/09/24 01/21/24 25 mcg/actuation powdr for inhalation (Anoro Ellipta) metoprolol succinate 25 mg 50 mg (2 x 25 mg) PO QAM #60 tabs 01/27/24 03/09/24 03/09/24 tablet,extended release 24 hr amlodipine 5 mg tablet (Norvasc) 5 mg PO QAM 30 days #30 tabs 03/02/24 03/09/24 03/08/24 ipratropium 0.5 mg-albuterol 3 mg 3 ml inhalation Q6H PRN Shortness 03/02/24 03/09/24 Unknown (2.5 mg base)/3 mL nebulization Of Breath #90 mL soln levalbuterol HCl 1.25 mg/3 mL 1.25 mg (3 mL) inhalation TID 7 03/02/24 03/09/24 03/09/24 solution for nebulization days #63 mL lidocaine 5 % topical patch 1 patch transdermal QAM 10 days 03/02/24 03/09/24 03/09/24 #15 ea mecobalamin (vitamin B12) 1,000 1,000 mcg PO DAILY #30 tabs 03/02/24 03/09/24 03/09/24 mcg chewable tablet (B12 Active) cholecalciferol (vitamin D3) 25 25 mcg PO HS 03/09/24 03/09/24 03/08/24 mcg (1,000 unit) capsule guaifenesin 600 mg tablet, 600 mg PO BID 03/09/24 03/09/24 03/09/24 extended release 12 hr ipratropium bromide 0.02 % 1.25 ml inhalation TID 03/09/24 03/09/24 03/09/24 solution for inhalation oxycodone 5 mg tablet 5 mg PO Q4H PRN Severe Pain (Scale 03/09/24 03/09/24 Unknown Score 7-10) tamsulosin 0.4 mg capsule 0.4 mg PO HS 03/09/24 03/09/24 03/08/24 tramadol 50 mg tablet 50 mg PO Q6H PRN Moderate Pain 03/09/24 03/09/24 03/09/24 (Scale Score 5-6) Active Medications Generic Name Dose Route Start Last Admin Trade Name Freq PRN Reason Stop Dose Admin Amitriptyline HCl 50 mg 03/09/24 21:00 03/09/24 20:11 Amitriptyline Hcl 50 Mg Tab PO 04/08/24 20:59 50 mg HS FELIX Administration Atorvastatin Calcium 80 mg 03/10/24 09:00 03/10/24 09:52 Atorvastatin 40 Mg Tab PO 04/09/24 08:59 80 mg DAILY FELIX Administration Clopidogrel Bisulfate 75 mg 03/10/24 09:00 03/10/24 09:52 Clopidogrel Bisulfate 75 Mg Tab PO 04/09/24 08:59 75 mg QAM FELIX Administration Duloxetine HCl 60 mg 03/09/24 21:00 03/09/24 20:10 Duloxetine Hcl 60 Mg Cap PO 04/08/24 20:59 60 mg QPM FELIX Administration Duloxetine HCl 30 mg 03/09/24 21:00 03/09/24 20:11 Duloxetine Hcl 30 Mg Cap PO 04/08/24 20:59 30 mg QPM FELIX Administration Finasteride 5 mg 03/10/24 09:00 03/10/24 09:52 Finasteride 5 Mg Tab PO 04/09/24 08:59 5 mg DAILY FELIX Administration Guaifenesin 600 mg 03/09/24 21:00 03/10/24 09:52 Guaifenesin 600 Mg Tabcr PO 04/08/24 20:59 600 mg BID FELIX Administration Guaifenesin 200 mg 03/10/24 03:15 03/10/24 03:50 Guaifenesin Sugar Free 200 Mg/10 Ml Udc PO 04/09/24 03:14 200 mg Q6H PRN Administration Cough Heparin Sodium (Porcine) 5,000 units 03/09/24 22:00 03/10/24 13:33 Heparin Sod 5,000 Unit/0.5 Ml Vial SQ 04/08/24 21:59 Not Given Q8 FELIX Sodium Chloride 1,000 mls @ 75 mls/hr 03/09/24 17:00 03/10/24 06:44 Nss IV 03/10/24 20:12 75 mls/hr .[id number] FELIX Administration Vancomycin HCl 1,250 mg/ 275 mls @ 200 mls/hr 03/10/24 04:00 03/10/24 04:28 Sodium Chloride IV 03/17/24 03:59 Infused Q24H FELIX Infusion Piperacillin Sod/Tazobactam Sod 4.5 gm in 100 mls @ 25 mls/hr 03/09/24 18:45 03/10/24 15:55 Zosyn IV 03/16/24 18:44 Infused Q8H FELIX Infusion Levothyroxine Sodium 75 mcg 03/10/24 06:30 03/10/24 05:07 Levothyroxine Sodium 75 Mcg Tablet PO 04/09/24 06:29 75 mcg DAILYBB FELIX Administration Lidocaine 1 patch 03/10/24 09:00 03/10/24 10:37 Lidocaine 5% 1 Patch TD 04/09/24 08:59 1 patch QAM FELIX Administration Metoprolol Succinate 50 mg 03/10/24 09:00 03/10/24 09:52 Metoprolol Succ 50mg Ext Rel Tab PO 04/09/24 08:59 50 mg QAM FELIX Administration Miscellaneous 1 each 03/09/24 21:00 03/09/24 20:12 Remove Lidoderm Patch N/A 04/08/24 20:59 1 each DAILY@2100 FELIX Administration Oxycodone HCl 5 mg 03/09/24 18:28 03/10/24 06:39 Oxycodone Hcl Ir 5 Mg Tab (Immediate Release) PO 03/23/24 18:27 5 mg Q4H PRN Administration Severe Pain (Scale Score 7-10) Pantoprazole Sodium 40 mg 03/10/24 09:00 03/10/24 09:52 Pantoprazole 40 Mg Tab PO 04/09/24 08:59 40 mg DAILY FELIX Administration Tamsulosin HCl 0.4 mg 03/09/24 21:00 03/09/24 20:12 Tamsulosin Hcl 0.4 Mg Cap PO 04/08/24 20:59 0.4 mg HS FELIX Administration Tramadol HCl 50 mg 03/09/24 18:28 03/09/24 22:15 Tramadol Hcl 50 Mg Tablet PO 04/08/24 18:27 50 mg Q6H PRN Administration Moderate Pain (Scale Score 5-6) Umeclidinium/Vilanterol 1 puffs 03/10/24 09:00 03/10/24 10:37 Umeclidinium/Vilanterol 62.5/25mcg 7 Puffs/Inhaler INH 04/09/24 08:59 1 puffs DAILY FELIX Administration (3) Periprosthetic fracture around internal prosthetic right hip joint Encounter type: subsequent encounter Qualified Code(s): M97.01XD - Periprosthetic fracture around internal prosthetic right hip joint, subsequent encounter (5) Pneumonia Laterality: unspecified laterality Lung location: unspecified part of lung Pneumonia type: due to unspecified organism Qualified Code(s): J18.9 - Pneumonia, unspecified organism (6) COPD (chronic obstructive pulmonary disease) COPD type: unspecified COPD Qualified Code(s): J44.9 - Chronic obstructive pulmonary disease, unspecified (7) CAD (coronary artery disease) Associated angina: without angina Coronary Disease-Associated Artery/Lesion type: [place] artery [place] vs. transplanted heart: [place] heart Qualified Code(s): I25.10 - Atherosclerotic heart disease of [place] coronary artery without angina pectoris
[2024-03-10] MEDS: SODIUM CHLOR 7% 4 ML NEB NEB SCH (20:48)
[2024-03-11] MEDS: ALBUT/IPRATROP 3MG/0.5MG NEB 3 ML VIAL INH PRN (05:48)
[2024-03-11 06:18] LABS: Basophils # (auto) 0.05 K/uL (0.00-0.20); Basophils % (auto) 0.7 %; Eosinophils # (auto) 0.25 K/uL (0.00-0.50); Eosinophils % (auto) 3.4 %; Hematocrit (blood only) 33.5 % (42.0-52.0); Hemoglobin 10.9 g/dl (14.0-18.0); Immature Granulocytes # (auto) 0.03 K/uL (0.01-0.20); Immature Granulocytes % (auto) 0.4 %; Lymphocytes # (auto) 0.98 K/uL (1.20-3.40); Lymphocytes % (auto) 13.2 %; Mean Corpuscular Hemoglobin 31.3 pg (25.0-34.0); Mean Corpuscular Hgb Conc 32.5 g/dL (32.0-36.0); Mean Corpuscular Volume 96.3 fL (80.0-100.0); Mean Platelet Volume 10.5 fL (9.4-12.4); Monocytes # (auto) 0.82 K/uL (0.11-0.59); Monocytes % (auto) 11.1 %; Neutrophils # (auto) 5.29 K/uL (1.40-6.50); Neutrophils % (auto) 71.2 %; Platelet Count 279 K/uL (130-400); RDW Coefficient of Variation 13.8 % (11.5-14.5); Red Blood Count 3.48 M/uL (4.70-6.10); White Blood Count 7.42 K/ul (4.8-10.8)
[2024-03-11 06:28] LABS: BUN Creatinine Ratio 17.1 (10-20); Calcium 8.6 mg/dl (8.6-10.3); Est GFR (African American) 73.3 ml/min; Est GFR (Non-African American) 63.3 ml/min; Phosphorus 2.4 mg/dl (2.5-4.9); Potassium 3.8 mmol/L (3.5-5.1)
--- NOTE | 2024-03-11 14:45 | Hospitalist Progress Note ---
Date of Service March 11, 2024 Assessment & Plan (1) Severe sepsis: (2) Metabolic encephalopathy: (3) Periprosthetic fracture around internal prosthetic right hip joint: (4) Elevated troponin: (5) Pneumonia: (6) COPD (chronic obstructive pulmonary disease): (7) CAD (coronary artery disease): (8) HTN, goal below 130/80: Plan per admitting service notes with addendum: Mr. Shaver is a 79 y/o male with recent right periprosthetic femoral fracture in rehab at [facility], COPD, asthma, bronchiectasis, chronic respiratory failure on baseline O2 of 2-3L, HTN, HLD, sinus node dysfunction s/p pacemaker, CAD s/p balloon angioplasty (2017), BPH, and other history as outlined before who was admitted 03/10 fpr severe sepsis. Fluid resuscitation was initiated in the ED with improvement in BP and lactate. Given multiple recent hospitalizations, patient started on regimen for concern for hospital acquired pneumonia. #Severe Sepsis #Acute on chronic hypoxic resp failure, concern for hospital acquired pneumonia CXR Patchy left basilar densities have slightly progressed. This could represent atelectasis or a pneumonia. - Patient with multiple admissions in last month, procal notable 0.09 - Oxygen as needed to maintain sats 88-90% - Continue Zosyn -MRSA negative, will d/c vancomycin - Continue fluid resuscitation initiated in the ED - Blood culture pending, check sputum culture -Improvement in leukocytosis -Flutter valve and hypertonic nebs bid 03/11 Blood culture negative x 48 hours Urine culture: Negative sputum culture moderate normal [place] Clinically improving Continue IV Zosyn #Acute metabolic encephalopathy iso sepsis patient with history of delirium worsened by benzos/opioids/pain/infection Attempt to reorient Manage as above delirium precautions Resolving Continue to monitor #Periprosthetic fracture around internal prosthetic right hip joint: Stable on imaging 03/09 ortho saw patient last admission and recommended conservative management Eventual PT/OT evaluations once more stable pain well contrlled #Elevated troponin: Likely related to demand from severe sepsis - will trend x 2. Denies chest pain at present up to 195, no downtrending no reports of CP today #Chronic normocytic anemia hgb baseline 10-13, likely 2/2 chronic disease 02/24 ferritin 193, TiBC 147 Iron 13 b12 low last admission, will repeat and consider IM replacement Hg stable Vit B12 1,212 #COPD (chronic obstructive pulmonary disease): Antibiotics as above Scheduled ipratropium/levalbuterol, prn DuoNebs Continue maintenance inhaler No wheezing and on baseline O2 this am 03/11 not in exacerbation #CAD (coronary artery disease): Chronic, stable Continue outpatient regimen #HTN, goal below 130/80: Hypotensive due to severe sepsis so will hold amlodipine. Beta-kassie continued with holds in view of known CAD. 03/11 BP increasing Amlodipine 5mg DVT heparin sq Dispo: anticipate return to Acute Rehab Admission and Anticipated Discharge Date Admission Date: March 09, 2024 Subjective Follow-up for sepsis, pneumonia, etc. Seen resting in bed, awake and alert, somewhat confused, but tries to answer questions appropriately States he feels fine overall Denies shortness of breath, has intermittent dry cough, no chest pain, fevers or chills Abdominal pain, nausea Hip pain well-controlled No other new symptoms Review of Systems Review of Systems: all noted and negative except for above Physical Exam Physical Exam: General- oriented x 2, not in distress, speaks in sentences with no effort or accessory muscle use Eyes- anicteric Neck- no JVD Lungs- mild rhonchi left base clear on the right Heart- normal rate, regular rhythm; no murmurs Abdomen- normal bowel sounds, nondistended, soft, nontender Extremities- no pretibial edema, no calf tenderness Neuro- alert, oriented x 2; no gross focal neurologic deficits Skin- warm & dry Results & Data Results & Data Vital Signs (Past 12 Hours) Vital Signs Temp Pulse Pulse Resp BP Pulse Ox O2 Del Method 03/11/24 10:59 37.0 C 89 18 162/85 H 94 Room Air 03/11/24 09:41 Nasal Cannula 03/11/24 08:05 36.8 C 81 18 141/70 H 92 Room Air 03/11/24 08:00 66 03/11/24 07:33 76 20 93 Nasal Cannula 03/11/24 05:49 80 18 96 Nasal Cannula 03/11/24 02:48 36.6 C 69 18 166/72 H 94 Nasal Cannula O2 Flow Rate 03/11/24 10:59 03/11/24 09:41 3 03/11/24 08:05 03/11/24 08:00 03/11/24 07:33 2 03/11/24 05:49 2 09/18/24 02:48 2 all noted and reviewed including below (3) Periprosthetic fracture around internal prosthetic right hip joint Encounter type: subsequent encounter Qualified Code(s): M97.01XD - Periprosthetic fracture around internal prosthetic right hip joint, subsequent encounter (5) Pneumonia Laterality: unspecified laterality Lung location: unspecified part of lung Pneumonia type: due to unspecified organism Qualified Code(s): J18.9 - Pneumonia, unspecified organism (6) COPD (chronic obstructive pulmonary disease) COPD type: unspecified COPD Qualified Code(s): J44.9 - Chronic obstructive pulmonary disease, unspecified (7) CAD (coronary artery disease) Coronary Disease-Associated Artery/Lesion type: [place] artery [place] vs. transplanted heart: [place] heart Associated angina: without angina Qualified Code(s): I25.10 - Atherosclerotic heart disease of [place] coronary artery without angina pectoris
[2024-03-11] MEDS: amLODIPine BESYLATE 5 MG TAB PO SCH (15:25)
[2024-03-12] MEDS ORDERED: VANCOMYCIN LEVEL ONE (03:00)
[2024-03-12 06:57] LABS: Creatinine Clr Calc Pharmacy 66.7 ml/min; Est GFR (African American) 87.4 ml/min; Est GFR (Non-African American) 75.4 ml/min
--- NOTE | 2024-03-12 17:02 | Hospitalist Progress Note ---
Date of Service March 12, 2024 Assessment & Plan (1) Severe sepsis: (2) Metabolic encephalopathy: (3) Periprosthetic fracture around internal prosthetic right hip joint: (4) Elevated troponin: (5) Pneumonia: (6) COPD (chronic obstructive pulmonary disease): (7) CAD (coronary artery disease): (8) HTN, goal below 130/80: Plan per admitting service notes with addendum: Mr. Shaver is a 79 y/o male with recent right periprosthetic femoral fracture in rehab at [facility], COPD, asthma, bronchiectasis, chronic respiratory failure on baseline O2 of 2-3L, HTN, HLD, sinus node dysfunction s/p pacemaker, CAD s/p balloon angioplasty (2017), BPH, and other history as outlined before who was admitted 03/10 fpr severe sepsis. Fluid resuscitation was initiated in the ED with improvement in BP and lactate. Given multiple recent hospitalizations, patient started on regimen for concern for hospital acquired pneumonia. #Severe Sepsis #Acute on chronic hypoxic resp failure, concern for hospital acquired pneumonia CXR Patchy left basilar densities have slightly progressed. This could represent atelectasis or a pneumonia. - Patient with multiple admissions in last month, procal notable 0.09 - Oxygen as needed to maintain sats 88-90% - Continue Zosyn -MRSA negative, will d/c vancomycin - Continue fluid resuscitation initiated in the ED - Blood culture pending, check sputum culture -Improvement in leukocytosis -Flutter valve and hypertonic nebs bid 03/11 Blood culture negative x 48 hours Urine culture: Negative sputum culture moderate normal [place] Clinically improving Continue IV Zosyn #Acute metabolic encephalopathy iso sepsis patient with history of delirium worsened by benzos/opioids/pain/infection Attempt to reorient Manage as above delirium precautions Resolving Continue to monitor #Periprosthetic fracture around internal prosthetic right hip joint: Stable on imaging 03/09 ortho saw patient last admission and recommended conservative management Eventual PT/OT evaluations once more stable pain well contrlled #Elevated troponin: Likely related to demand from severe sepsis - will trend x 2. Denies chest pain at present up to 195, no downtrending no reports of CP today #Chronic normocytic anemia hgb baseline 10-13, likely 2/2 chronic disease 02/24 ferritin 193, TiBC 147 Iron 13 b12 low last admission, will repeat and consider IM replacement Hg stable Vit B12 1,212 #COPD (chronic obstructive pulmonary disease): Antibiotics as above Scheduled ipratropium/levalbuterol, prn DuoNebs Continue maintenance inhaler No wheezing and on baseline O2 this am 03/11 not in exacerbation #CAD (coronary artery disease): Chronic, stable Continue outpatient regimen #HTN, goal below 130/80: Hypotensive due to severe sepsis so will hold amlodipine. Beta-kassie continued with holds in view of known CAD. 03/11 BP increasing Amlodipine 5mg DVT heparin sq Dispo: anticipate return to Acute Rehab Admission and Anticipated Discharge Date Admission Date: March 09, 2024 Results & Data Results & Data Vital Signs (Past 12 Hours) Vital Signs Temp Pulse Resp BP Pulse Ox O2 Del Method 03/12/24 12:45 36.6 C 118 H 19 129/78 93 Room Air 03/12/24 08:37 Room Air 03/12/24 07:45 36.5 C 70 19 158/76 H 94 Room Air 03/12/24 07:08 70 18 93 Room Air (3) Periprosthetic fracture around internal prosthetic right hip joint Encounter type: subsequent encounter Qualified Code(s): M97.01XD - Periprosthetic fracture around internal prosthetic right hip joint, subsequent encounter (5) Pneumonia Laterality: unspecified laterality Lung location: unspecified part of lung Pneumonia type: due to unspecified organism Qualified Code(s): J18.9 - Pneumonia, unspecified organism (6) COPD (chronic obstructive pulmonary disease) COPD type: unspecified COPD Qualified Code(s): J44.9 - Chronic obstructive pulmonary disease, unspecified (7) CAD (coronary artery disease) Coronary Disease-Associated Artery/Lesion type: [place] artery [place] vs. transplanted heart: [place] heart Associated angina: without angina Qualified Code(s): I25.10 - Atherosclerotic heart disease of [place] coronary artery without angina pectoris
[2024-03-13] MEDS: METOPROLOL TARTRATE 1 MG/ML VIAL IV STA (04:21)
[2024-03-13 04:51] LABS: Appearance Urine Clear (Clear); Bacteria Urine Automated None Seen (None Seen); Bilirubin Urine Negative (Negative); Blood Urine Negative (Negative); Cast Urine Automated 0-2 /lpf (0-2); Color Urine Yellow; Epithelial Cell Urine Auto 0-2 /hpf (0-2); Glucose Urine UA Negative (Negative); Ketones Urine 2+ (Negative); Leukocyte Esterase Urine Negative (Negative); Nitrite Urine Negative (Negative); Protein Urine Trace (Negative); RBC Urine Automated 0-2 /hpf (0-2); Specific Gravity Urine 1.027 (1.000-1.030); Urobilinogen Urine Negative (Negative); WBC Urine Automated 0-5 /hpf (0-5)
[2024-03-13 06:56] LABS: Creatinine Clr Calc Pharmacy 61.8 ml/min; Est GFR (African American) 80.3 ml/min; Est GFR (Non-African American) 69.3 ml/min
--- NOTE | 2024-03-13 16:16 | Hospitalist Progress Note ---
Date of Service March 13, 2024 Assessment & Plan (1) Severe sepsis: (2) Metabolic encephalopathy: (3) Periprosthetic fracture around internal prosthetic right hip joint: (4) Elevated troponin: (5) Pneumonia: (6) COPD (chronic obstructive pulmonary disease): (7) CAD (coronary artery disease): (8) HTN, goal below 130/80: Plan per admitting service notes with addendum: Mr. Shaver is a 79 y/o male with recent right periprosthetic femoral fracture in rehab at [facility], COPD, asthma, bronchiectasis, chronic respiratory failure on baseline O2 of 2-3L, HTN, HLD, sinus node dysfunction s/p pacemaker, CAD s/p balloon angioplasty (2017), BPH, and other history as outlined before who was admitted 03/10 fpr severe sepsis. Fluid resuscitation was initiated in the ED with improvement in BP and lactate. Given multiple recent hospitalizations, patient started on regimen for concern for hospital acquired pneumonia. #Severe Sepsis #Acute on chronic hypoxic resp failure, concern for hospital acquired pneumonia CXR Patchy left basilar densities have slightly progressed. This could represent atelectasis or a pneumonia. - Patient with multiple admissions in last month, procal notable 0.09 - Oxygen as needed to maintain sats 88-90% - Continue Zosyn -MRSA negative, will d/c vancomycin - Continue fluid resuscitation initiated in the ED - Blood culture pending, check sputum culture -Improvement in leukocytosis -Flutter valve and hypertonic nebs bid 03/11 Blood culture negative x 48 hours Urine culture: Negative sputum culture moderate normal [place] Clinically improving Continue IV Zosyn 03/13 Continues to improve clinically Afebrile, respiratory symptoms improving Continue IV Zosyn Probiotics Anticipate return to [facility] this weekend #Acute metabolic encephalopathy iso sepsis patient with history of delirium worsened by benzos/opioids/pain/infection Attempt to reorient Manage as above delirium precautions Mostly back to baseline mental status Continue to monitor #Periprosthetic fracture around internal prosthetic right hip joint: Stable on imaging 03/09 ortho saw patient last admission and recommended conservative management Eventual PT/OT evaluations once more stable pain well controlled #Elevated troponin Likely related to demand from severe sepsis - will trend x 2. Denies chest pain at present up to 195, no downtrending no reports of CP today #Chronic normocytic anemia hgb baseline 10-13, likely 2/2 chronic disease 02/24 ferritin 193, TiBC 147 Iron 13 b12 low last admission, will repeat and consider IM replacement Hg stable Vit B12 1,212 #COPD (chronic obstructive pulmonary disease): Antibiotics as above Scheduled ipratropium/levalbuterol, prn DuoNebs Continue maintenance inhaler No wheezing and on baseline O2 this am 03/13 not in exacerbation #CAD (coronary artery disease): Chronic, stable Continue outpatient regimen #HTN, goal below 130/80: Hypotensive due to severe sepsis so will hold amlodipine. Beta-kassie continued with holds in view of known CAD. 03/13 started on Amlodipine 5mg BP improving monitor DVT heparin sq Dispo: anticipate return to [facility] this weekend Admission and Anticipated Discharge Date Admission Date: March 09, 2024 Subjective Resting in bed, comfortable, sitting up, having lunch Oriented x 2-3, answering most questions appropriately States he feels okay overall Breathing is better, no cough, fever or chills, nausea vomiting No other new symptoms Review of Systems Review of Systems: all noted and negative except for above Physical Exam Physical Exam: General- oriented x 3, not in distress, speaks in sentences with no effort or accessory muscle use Eyes- anicteric Neck- no JVD Lungs- clear breath sounds bilaterally, no rales/wheezes Heart- normal rate, regular rhythm; no murmurs Abdomen- normal bowel sounds, nondistended, soft, nontender Extremities- no pretibial edema, no calf tenderness Neuro- alert, oriented x 2-3; no gross focal neurologic deficits Skin- warm & dry Results & Data Results & Data Vital Signs (Past 12 Hours) Vital Signs Temp Pulse Pulse Resp BP Pulse Ox O2 Del Method 03/13/24 15:59 63 03/13/24 15:52 36.7 C 64 17 158/85 H 94 Room Air 03/13/24 10:54 36.8 C 78 19 125/84 95 Room Air 03/13/24 07:53 36.6 C 91 H 17 114/64 95 Room Air 03/13/24 07:37 Room Air 03/13/24 07:30 72 03/13/24 07:16 74 18 94 Room Air 03/13/24 04:30 74 all noted and reviewed including below (3) Periprosthetic fracture around internal prosthetic right hip joint Encounter type: subsequent encounter Qualified Code(s): M97.01XD - Periprosthetic fracture around internal prosthetic right hip joint, subsequent encounter (5) Pneumonia Laterality: unspecified laterality Lung location: unspecified part of lung Pneumonia type: due to unspecified organism Qualified Code(s): J18.9 - Pneumonia, unspecified organism (6) COPD (chronic obstructive pulmonary disease) COPD type: unspecified COPD Qualified Code(s): J44.9 - Chronic obstructive pulmonary disease, unspecified (7) CAD (coronary artery disease) Coronary Disease-Associated Artery/Lesion type: [place] artery [place] vs. transplanted heart: [place] heart Associated angina: without angina Qualified Code(s): I25.10 - Atherosclerotic heart disease of [place] coronary artery without angina pectoris
[2024-03-13] MEDS: ADVANCED PROBIOTIC 625 MG CAPSULE PO SCH (17:55)
--- NOTE | 2024-03-14 17:01 | Hospitalist Progress Note ---
Date of Service March 14, 2024 Assessment & Plan (1) Severe sepsis: (2) Metabolic encephalopathy: (3) Periprosthetic fracture around internal prosthetic right hip joint: (4) Elevated troponin: (5) Pneumonia: (6) COPD (chronic obstructive pulmonary disease): (7) CAD (coronary artery disease): (8) HTN, goal below 130/80: Plan per admitting service notes with addendum: Mr. Shaver is a 79 y/o male with recent right periprosthetic femoral fracture in rehab at [facility], COPD, asthma, bronchiectasis, chronic respiratory failure on baseline O2 of 2-3L, HTN, HLD, sinus node dysfunction s/p pacemaker, CAD s/p balloon angioplasty (2017), BPH, and other history as outlined before who was admitted 03/10 fpr severe sepsis. Fluid resuscitation was initiated in the ED with improvement in BP and lactate. Given multiple recent hospitalizations, patient started on regimen for concern for hospital acquired pneumonia. #Severe Sepsis #Acute on chronic hypoxic resp failure, concern for hospital acquired pneumonia CXR Patchy left basilar densities have slightly progressed. This could represent atelectasis or a pneumonia. - Patient with multiple admissions in last month, procal notable 0.09 - Oxygen as needed to maintain sats 88-90% - Continue Zosyn -MRSA negative, will d/c vancomycin - Continue fluid resuscitation initiated in the ED - Blood culture pending, check sputum culture -Improvement in leukocytosis -Flutter valve and hypertonic nebs bid 03/11 Blood culture negative x 48 hours Urine culture: Negative sputum culture moderate normal [place] Clinically improving continue Zosyn IV day 5 03/13 Continues to improve clinically Afebrile, respiratory symptoms improving Continue IV Zosyn Probiotics Anticipate return to [facility] this weekend 03/14 Continues to improve, stable overall Continue IV Zosyn day #5 Continue probiotics Anticipate return to [facility] tomorrow #Acute metabolic encephalopathy iso sepsis patient with history of delirium worsened by benzos/opioids/pain/infection Attempt to reorient Manage as above delirium precautions Mostly back to baseline mental status Continue to monitor #Periprosthetic fracture around internal prosthetic right hip joint: Stable on imaging 03/09 ortho saw patient last admission and recommended conservative management Eventual PT/OT evaluations once more stable pain well controlled #Elevated troponin Likely related to demand from severe sepsis - will trend x 2. Denies chest pain at present up to 195, no downtrending no reports of CP today #Chronic normocytic anemia hgb baseline 10-13, likely 2/2 chronic disease 02/24 ferritin 193, TiBC 147 Iron 13 b12 low last admission, will repeat and consider IM replacement Hg stable Vit B12 1,212 #COPD (chronic obstructive pulmonary disease): Antibiotics as above Scheduled ipratropium/levalbuterol, prn DuoNebs Continue maintenance inhaler No wheezing and on baseline O2 this am 03/14 not in exacerbation #CAD (coronary artery disease): Chronic, stable Continue outpatient regimen #HTN, goal below 130/80: Hypotensive due to severe sepsis so will hold amlodipine. Beta-kassie continued with holds in view of known CAD. 03/14 started on Amlodipine 5mg BP improving monitor DVT heparin sq Dispo: anticipate return to [facility] this weekend Admission and Anticipated Discharge Date Admission Date: March 09, 2024 Subjective Seen resting in bed, comfortable, not in distress Oriented x 2, answering questions appropriately States he feels fine overall Denies cough, shortness of breath, fevers or chills No other new symptoms Review of Systems Review of Systems: all noted and negative except for above Physical Exam Physical Exam: General- oriented x 2-3, not in distress, speaks in sentences with no effort or accessory muscle use Eyes- anicteric Neck- no JVD Lungs- clear breath sounds bilaterally, no rales/wheezes Heart- normal rate, regular rhythm; no murmurs Abdomen- normal bowel sounds, nondistended, soft, nontender Extremities- no pretibial edema, no calf tenderness Neuro- alert, oriented x 2-3; no gross focal neurologic deficits Skin- warm & dry Results & Data Results & Data Vital Signs (Past 12 Hours) Vital Signs Temp Pulse Pulse Resp BP BP Pulse Ox 03/14/24 15:16 36.8 C 82 18 123/74 94 03/14/24 10:46 36.7 C 65 18 144/73 H 92 03/14/24 09:45 68 140/70 92 03/14/24 08:00 03/14/24 07:44 36.5 C 65 20 149/77 H 94 03/14/24 07:22 78 18 94 03/14/24 07:04 63 O2 Del Method 03/14/24 15:16 Room Air 03/14/24 10:46 Room Air 03/14/24 09:45 Room Air 03/14/24 08:00 Room Air 03/14/24 07:44 Room Air 03/14/24 07:22 Room Air 03/14/24 07:04 all noted and reviewed including below (3) Periprosthetic fracture around internal prosthetic right hip joint Encounter type: subsequent encounter Qualified Code(s): M97.01XD - Periprosthetic fracture around internal prosthetic right hip joint, subsequent encounter (5) Pneumonia Laterality: unspecified laterality Lung location: unspecified part of lung Pneumonia type: due to unspecified organism Qualified Code(s): J18.9 - Pneumonia, unspecified organism (6) COPD (chronic obstructive pulmonary disease) COPD type: unspecified COPD Qualified Code(s): J44.9 - Chronic obstructive pulmonary disease, unspecified (7) CAD (coronary artery disease) Coronary Disease-Associated Artery/Lesion type: [place] artery [place] vs. transplanted heart: [place] heart Associated angina: without angina Qualified Code(s): I25.10 - Atherosclerotic heart disease of [place] coronary artery without angina pectoris
[2024-03-15] MEDS: ACETAMINOPHEN 325 MG TAB PO PRN (08:07)
[2024-03-15 10:46] VITALS: RESP 20; TEMP 97.9; O2SAT 93
--- NOTE | 2024-03-15 13:19 | Discharge Summary ---
Discharge Summary Date of Service March 15, 2024 Principal Dx & Hospital Course #1 = Principal Diagnosis (1) Severe sepsis: (2) Metabolic encephalopathy: (3) Periprosthetic fracture around internal prosthetic right hip joint: (4) Elevated troponin: (5) Pneumonia: (6) COPD (chronic obstructive pulmonary disease): (7) CAD (coronary artery disease): (8) HTN, goal below 130/80: Plan per admitting service notes with addendum: Mr. Shaver is a 79 y/o male with recent right periprosthetic femoral fracture in rehab at [facility], COPD, asthma, bronchiectasis, chronic respiratory failure on baseline O2 of 2-3L, HTN, HLD, sinus node dysfunction s/p pacemaker, CAD s/p balloon angioplasty (2017), BPH, and other history as outlined before who was admitted 03/10 fpr severe sepsis. Fluid resuscitation was initiated in the ED with improvement in BP and lactate. Given multiple recent hospitalizations, patient started on regimen for concern for hospital acquired pneumonia. #Severe Sepsis #Acute on chronic hypoxic resp failure, concern for hospital acquired pneumonia CXR Patchy left basilar densities have slightly progressed. This could represent atelectasis or a pneumonia. Nasal MRSA swab negative Blood cultures: Negative Sputum culture: Moderate normal [place] Urine culture negative Completed 1 week course of IV Zosyn Patient gradually improved Remained on room air Continue with probiotics times at least 1 month #Acute metabolic encephalopathy iso sepsis patient with history of delirium worsened by benzos/opioids/pain/infection Resolved with resolution of sepsis, pneumonia Avoid narcotics, benzodiazepines #Periprosthetic fracture around internal prosthetic right hip joint: Stable on imaging 03/09 ortho saw patient last admission and recommended conservative management Continue pain control, PT and OT Continue Lovenox subcu for DVT prophylaxis until patient is more ambulatory #Elevated troponin Likely related to demand from severe sepsis Trending down No cardiac symptoms #Chronic normocytic anemia hgb baseline 10-13, likely 2/2 chronic disease 02/24 ferritin 193, TiBC 147 Iron 13 b12 low last admission, will repeat and consider IM replacement Hg stable Vit B12 1,212 #COPD (chronic obstructive pulmonary disease): Antibiotics as above Scheduled ipratropium/levalbuterolGiven, prn DuoNebs Continue maintenance inhaler Respiratory status stable upon discharge, on room air #CAD (coronary artery disease): Chronic, stable Continue outpatient regimen #HTN Initially hypotensive Blood pressure trended up Amlodipine 5 mg p.o. resumed Dispo: Return to halfway facility today PCP follow-up in 1 week Notes For Next Care Provider Medication Changes From Visit Lactobacillus probiotics daily Lovenox 40 mg subcu daily x 30 days Admission HPI Per Admitting Provider This is a 79 y/o male with recent right femoral fracture, in rehab at [facility], COPD, asthma, bronchiectasis, chronic respiratory failure on baseline O2 of 2-3L, HTN, HLD, sinus node dysfunction s/p pacemaker, CAD s/p balloon angioplasty (2017), BPH, and other history as outlined before who was sent to the ED today from [facility] with hypoxia and confusion. He was admitted to [facility] 02/23-03/02/24 after a fall at home with resultant right femoral periprosthetic non- displaced fracture - no surgical intervention indicated at this time. Also noted to have a small associated intramuscular hematoma in the distal iliopsoas. Diagnosed with acute bronchitis during this admission - treated with doxycycline and prednisone taper. Discharged to [facility] for rehab, where it appears he initially was doing well. History from the patient is currently unreliable so [facility] records were reviewed for medications, events overnight, and his medical course last week. This morning, patient was noted to be more confused. BP was low at 100/palp, and he was hypoxic requiring 6L of oxygen to maintain sats in the low 90s so EMS was called. Currently in the ED, pt remains somewhat confused. He knows that he is in the hospital but is not sure why. He was looking for his in the bed when I walked in to see him. He reports that his breathing at present is "okay" but then had a coughing fit while speaking to me and had difficulty catching his breath. He states the cough is non-productive. Admission Exam Per Admitting Provider General: awake, confused, slightly agitated HEENT: no scleral icterus, moist oral mucosa Neck: trachea midline Heart: regular but tachycardic Lungs: mildly diminished with left > right basilar crackles, no wheezing at present, no accessory muscle use Abdomen: soft, +BS Extremities: no pedal edema Neurologic: moving all extremities, no dysarthria, knows that he is at the hospital but unsure why Skin: warm, dry, no jaundice Discharge Exam General- oriented x 3, not in distress, speaks in sentences with no effort or accessory muscle use Eyes- anicteric Neck- no JVD Lungs- clear breath sounds bilaterally, no rales/wheezes Heart- normal rate, regular rhythm; no murmurs Abdomen- normal bowel sounds, nondistended, soft, nontender Extremities- no pretibial edema, no calf tenderness Neuro- alert, oriented x 3; no gross focal neurologic deficits Skin- warm & dry Updated Medication List Medication Instructions Recorded Confirmed Type acetaminophen 500 mg tablet 500 mg PO QID PRN Pain 03/06/23 03/09/24 History (Tylenol Extra Strength) amitriptyline 25 mg tablet 50 mg PO HS 03/06/23 03/09/24 History atorvastatin 80 mg tablet 80 mg PO DAILY 03/06/23 03/09/24 History clopidogrel 75 mg tablet 75 mg PO QAM 03/06/23 03/09/24 History duloxetine 30 mg capsule,delayed 30 mg PO QPM 03/06/23 03/09/24 History release duloxetine 60 mg capsule,delayed 60 mg PO QPM 03/06/23 03/09/24 History release finasteride 5 mg tablet 5 mg PO DAILY 03/06/23 03/09/24 History gabapentin 300 mg capsule 300 mg PO TID 03/06/23 03/09/24 History levothyroxine 75 mcg tablet 75 mcg PO DAILYBB 03/06/23 03/09/24 History nitroglycerin 0.4 mg sublingual 0.4 mg sublingual DIRECTED PRN 03/06/23 03/09/24 History tablet Chest Pain pantoprazole 40 mg tablet,delayed 40 mg PO DAILY 03/06/23 03/09/24 History release umeclidinium 62.5 mcg-vilanterol 1 inh inhalation DAILY 01/21/24 03/09/24 Histo ry 25 mcg/actuation powdr for inhalation (Anoro Ellipta) metoprolol succinate 25 mg 50 mg (2 x 25 mg) PO QAM #60 tabs 01/27/24 03/09/24 Rx tablet,extended release 24 hr amlodipine 5 mg tablet (Norvasc) 5 mg PO QAM 30 days #30 tabs 03/02/24 03/09/24 Rx ipratropium 0.5 mg-albuterol 3 mg 3 ml inhalation Q6H PRN Shortness 03/02/24 03/09/24 Rx (2.5 mg base)/3 mL nebulization Of Breath #90 mL soln levalbuterol HCl 1.25 mg/3 mL 1.25 mg (3 mL) inhalation TID 7 03/02/24 03/09/24 Rx solution for nebulization days #63 mL lidocaine 5 % topical patch 1 patch transdermal QAM 10 days 03/02/24 03/09/24 Rx #15 ea mecobalamin (vitamin B12) 1,000 1,000 mcg PO DAILY #30 tabs 03/02/24 03/09/24 Rx mcg chewable tablet (B12 Active) cholecalciferol (vitamin D3) 25 25 mcg PO HS 03/09/24 03/09/24 History mcg (1,000 unit) capsule guaifenesin 600 mg tablet, 600 mg PO BID 03/09/24 03/09/24 History extended release 12 hr ipratropium bromide 0.02 % 1.25 ml inhalation TID 03/09/24 03/09/24 History solution for inhalation oxycodone 5 mg tablet 5 mg PO Q4H PRN Severe Pain (Scale 03/09/24 03/09/24 History Score 7-10) tamsulosin 0.4 mg capsule 0.4 mg PO HS 03/09/24 03/09/24 History tramadol 50 mg tablet 50 mg PO Q6H PRN Moderate Pain 03/09/24 03/09/24 History (Scale Score 5-6) L.acidop,casei,lactis,rham-B.lact,angela 1 cap PO DAILY 30 days #30 caps 03/15/24 Rx 625 mg (10 billion cell) capsule (Advanced Probiotic) enoxaparin 40 mg/0.4 mL 40 mg (0.4 mL) subcut DAILY 30 03/15/24 Rx subcutaneous syringe (Lovenox) days #12 mL Hospital Stay Data Consultations 03/09/24 15:09 ED Decision to Admit Stat Diagnostic Imagining Performed 03/09/24 12:18 CT head/brain wo con Stat HEAD CT NONCONTRAST CT DOSE: 625.8 mGy.cm HISTORY: Altered mental status TECHNIQUE: Multiaxial CT images of the head were performed without the use of intravenous contrast. Automated exposure control was utilized for this study. A dose lowering technique was utilized adhering to the principles of ALARA. Comparison: Head CT 02/25/2024. Findings: The paranasal sinuses and mastoid air cells are clear. The calvarium and skull base are intact. There is no mass, hematoma, midline shift, acute infarct. White matter hypodensity is nonspecific but suggestive of microvascular ischemic change. The ventricles and sulci demonstrate mild age-related involutional changes. Impression: No significant change compared to the prior study. No acute intracranial abnormality. ACT 112: Negative or not required by law. Pending Results Patient Have Any Pending Studies at Discharge: No Discharge Instructions Given to Patient (Per Discharging Provider) Please refer to accompanying hospital discharge summary for further details. Total Time Total Time Spent Total Time Spent (In Minutes): 40 minutes
[2024-03-15 13:27] VITALS: BP 149/77
[2024-03-15 14:00] VITALS: PULSE 62
== END 2024-03-15 15:00 | DRG 871 ==
LOC: ED 12:09 → SUATTDRO 15:52 → 2S 15:52 → 2E 03-11 13:25